=== PATIENT | male | born 1985 | race Caucasian/White ===

== ENCOUNTER 2023-08-14 18:02 | Observation (INO) | payer BC, SELFPAY ==
[2023-08-14 18:04] VITALS: BP 127/92; PULSE 109; RESP 22; TEMP 35.8; O2SAT 100; BMI 28.8
[2023-08-14 18:30] LABS: Absolute Neutrophil Count 13.4 X10^3/uL (2.0-7.7); Basophil# 0.06 X10^3/uL; Basophil% 0.3 % (0-1); Eosinophil# 0.12 X10^3/uL; Eosinophils% 0.7 % (0-5); Hematocrit 47.9 % (40-54); Hemoglobin 16.2 g/dL (13.0-16.5); Lymphocyte % 12.8 % (19-41); Mean Corp Hgb Conc 33.8 g/dL (32-36); Mean Corpuscular Hgb 29.2 pg (27.0-32.0); Mean Corpuscular Volume 86.3 fL (80-94); Mean Platelet Vol. 9.6 fl (6.2-12.0); Monocyte# 1.36 X10^3/uL; Monocyte% 7.9 % (0-10); NRBC Flagged by Analyzer 0 % (0-5); Neutrophil # 13.37 X10^3/uL (2.7-7.7); Neutrophil % 77.9 % (47-70); Platelet Count 341 K/mm3 (150-450); RBC Distribution Width CV 12.6 % (11.6-14.6); RBC Distribution Width SD 39.7 fl (35.1-43.9); Red Blood Count 5.55 M/mm3 (4.6-6.2); White Blood Count 17.2 K/mm3 (4.4-11.0)
--- NOTE | 2023-08-14 18:41 | ED.VIS.GI ---
HPI HPI - GI History of Present Illness Chief Complaint: Abd Pain Narrative Narrative: 1-year-old male presenting with abdominal pain. He states it started about 4 PM. He was in [place] today getting a tattoo a noticeably on the car his abdomen started to hurt. Patient has significant history of volvulus and 2019. This was initially repaired at [facility] although the patient cannot remember the surgeon's name. He had a small segment of bowel removed. Later he had obstruction and had a colectomy with a colostomy bag which is subsequently been reversed. Patient follows mostly with [facility]. He states he is feeling well today. He ate pizza for breakfast. He had not any vomiting. He states his pain was 10 of 10 by the time he arrived to the ER but now his pain is much more tolerable. No fevers. Patient states other than this problem in his abdomen he has only spinal problems. He is on any blood thinners. PFSH PFS Medical History Ileostomy present Home Medications NK 08/14/23 [History Last Taken Unknown] Allergy/AdvReac Type Severity Reaction Status Date / Time No Known Allergies Allergy Verified 08/14/23 18:03 Surgical History H/O colectomy H/O spinal fusion History of appendectomy History of reversal of ileostomy Social History Smoking Status: Never smoker ROS ROS ED Constitutional Constitutional ED: Denies chills, fever(s) or sweats Eyes Eyes: Denies blurry vision or change in vision ENT ENT ED: Denies ear pain or sore throat Cardiovascular Cardiovascular: Denies chest pain, palpitations or racing heartbeat Respiratory/Chest Respiratory/Chest: Denies cough, dyspnea or sputum Gastrointestinal Gastrointestinal: Reports abdominal pain and nausea; Denies constipation, diarrhea or vomiting Genitourinary Genitourinary ED: Denies dysuria, hematuria or urinary frequency Musculoskeletal Musculoskeletal: Denies arthralgias, myalgias or neck pain Integumentary Denies abscess, Abrasions or rash Neurologic Neurologic: Denies headache(s), paresthesias or weakness Psychiatric Psychiatric: Denies anxiety, depression, suicidal ideation or suicidal thoughts Endocrine Endocrinology: Denies polydipsia or polyuria EXAM Physical Exam Const Vital Signs: 08/14/23 18:04 08/14/23 19:32 Temperature 96.5 F L Temperature Source Temporal Pulse Rate 109 H 90 Respiratory Rate 22 H 20 H Blood Pressure 127/92 H 131/78 H Blood Pressure Mean 103 95 Pulse Ox 100 94 Oxygen Delivery Method Room Air Room Air Positive well nourished General Appearance ED: NAD; Negative for pallor HEENT Reports moist mucous membranes normocephalic and atraumatic Eyes PERRL and EOMs intact bilaterally Resp normal respiratory effort Effort and Inspection: Negative for respiratory distress Cardio regular rate and regular rhythm GI Palpation: soft; Negative for guarding, rigid, hepatomegaly or splenomegaly Neuro CN's II-XII intact bilaterally Sensorium / Orientation: alert Motor Exam: strength 5/5 throughout Psych mental status grossly normal Skin no wounds General Skin Exam: Negative for jaundice or pallor MDM MDM MDM Narrative Medical decision making narrative: 37-year-old male with acute onset abdominal pain. Differential includes gastritis, GERD, colitis, diverticulitis, malignancy, bowel obstruction, dehydration, anemia, electrolyte normalities. CBC was obtained to assess white blood cell count, hemoglobin, platelets. CMP to assess liver function, renal function, electrolytes. Lipase to assess for pancreatitis. Urinalysis to assess for UTI. To gases to assess ischemic bowel. Patient medicated with morphine, Zofran, 1 L of normal saline. The abdomen pelvis with IV contrast was obtained. Leukocytosis 17.2. Hemoglobin stable at 16.2. Platelets are normal at 341. Renal function and electrolytes within normal limits. LFTs are normal. Lactic acid came back at 3.7 however this was drawn off initial blood draw using a tourniquet. Possible this could be inaccurate as the patient is completely pain-free on reexamination resting comfortably. He did get some morphine but states after he CT he felt something move and feels like his bowels are now moving normally. Repeat examination is consistent with this. CT of the abdomen pelvis with IV contrast performed does show concern for bowel obstruction, internal hernia, volvulus is all possibilities however the patient still pain-free. Discussed with general surgery who came down and evaluated the patient and again the patient is pain-free. Through shared decision making they determined that the best course of action for them is to have the patient admitted for observation as the patient is very knowledgeable with his surgical history and does not want surgery unless he needs it. Patient was given a dose of Zosyn as well as second liter of IV fluids. He will be monitored in the hospital for any potential worsening. Impression: 1. Small bowel obstruction 2. Leukocytosis 3. Lactic acidosis Lab Data Attestation: I reviewed the patient's lab results. Labs: Laboratory Results - last 24 hr 08/14/23 08/14/23 18:18 19:29 WBC 17.2 H RBC 5.55 Hgb 16.2 Hct 47.9 MCV 86.3 MCH 29.2 MCHC 33.8 RDW Std Deviation 39.7 RDW Coeff of [place] 12.6 Plt Count 341 MPV 9.6 Immature Gran % (Auto) 0.400 Neut % (Auto) 77.9 H Lymph % (Auto) 12.8 L Rains % (Auto) 7.9 Eos % (Auto) 0.7 Baso % (Auto) 0.3 Absolute Neuts (auto) 13.4 H Absolute Lymphs (auto) 2.20 Nucleated RBC % 0 Sodium 138 Potassium 3.4 L Chloride 105 Carbon Dioxide 22.0 Anion Gap 11 BUN 13 Creatinine 1.12 Estim Creat Clear Calc 84.43 Est GFR (MDRD) Af Amer 95 Est GFR (MDRD) Non-Af 78 BUN/Creatinine Ratio 11.6 Glucose 131 H Lactic Acid 3.7 H* Calcium 9.3 Total Bilirubin 0.70 AST 25 ALT 35 Alkaline Phosphatase 73 Total Protein 7.9 Albumin 4.2 Globulin 3.7 Albumin/Globulin Ratio 1.1 Lipase 47 Urine Color Yellow Urine Clarity Clear Urine pH 6.0 Ur Specific [place] 1.020 Urine Protein Negative Urine Glucose (UA) Normal Urine Ketones 50 H Urine Occult Blood Negative Urine Nitrite Negative Urine Bilirubin Negative Urine Urobilinogen Normal Ur Leukocyte Esterase Negative Urine RBC 0 SEEN Urine WBC 0 SEEN Ur Squamous Epith Cells 0 SEEN Urine Bacteria 0 SEEN Urine Mucus 0 SEEN Radiography Diagnostic Testing: Clinical Impression(s) from Imaging Studies Abdomen/Pelvis CT 08/14/23 19:15 IMPRESSION: Small bowel dilatation predominantly in the right upper abdomen with question swirling pattern which may indicate closed lip obstruction versus internal hernia. Differential diagnosis includes localized ileus. Recommend follow-up to evaluate progression. Midline left-sided liver with remainder of the visceral outlines within normal anatomical location. Status post colonic resection with distal visualized sigmoid unremarkable. Electronically Signed: Shannan Connolly MD at 19:47 EST , Discharge Plan Triage Chief Complaint: Abd Pain ED Provider: Laci Darling Dx/Rx/DC Orders Primary Care Provider: Care Physician,No Primary
[2023-08-14 18:48] LABS: ALB/GLOB Ratio 1.1 RATIO (0.9-2.4); AST(SGOT) 25 U/L (15-37); Alanine Aminotransfer ALT/SGPT 35 U/L (16-61); Albumin, Serum 4.2 g/dL (3.2-5.0); Alkaline Phosphatase 73 U/L (45-117); Anion Gap 11 (5-15); BUN 13 mg/dL (7-18); BUN/Creat Ratio 11.6 RATIO (10-20); Calcium,Total 9.3 mg/dL (8.5-10.1); Chloride 105 mmol/L (98-107); Creatinine, Serum 1.12 mg/dL (0.70-1.30); EST Glomerular Filtration Rate 78 mL/min (>60); Est Glom Filt Rate - Afr Amer 95 mL/min (>60); Estimated Creatinine Clearance 84.43 ml/min; Globulin 3.7 g/dL (2.2-4.2); Glucose 131 mg/dL (74-106); Potassium 3.4 mmol/L (3.5-5.1); Protein, Total 7.9 g/dL (6.4-8.2); Sodium Level 138 mmol/L (136-145)
[2023-08-14] MEDS: Morphine 4 MG/ML Syringe IV (18:48)
[2023-08-14] MEDS: 0.9% Normal Saline (1000mL) 1,000 ML 999 ML IV ×2 (18:48→19:54)
[2023-08-14] MEDS: Ondansetron 4 MG/2 ML Vial IV (18:49)
[2023-08-14 19:11] LABS: Lipase 47 U/L (13-75)
--- NOTE | 2023-08-14 19:15 | CT_ITS ---
STUDY: CT ABDOMEN AND PELVIS WITH CONTRAST REASON FOR EXAM: Male, 37 years old. history of bowel obstruction RADIATION DOSAGE (If Supplied By Facility): CTDIvol = ( 11.88 ) mGy, DLP = ( 799.83 ) mGycm TECHNIQUE: Transaxial images were obtained from the dome of the diaphragm to the symphysis pubis without oral contrast. IV 100mL Isovue-370 was administered. Sagittal and coronal images were reconstructed. Individualized dose optimization techniques were used for this CT. COMPARISON: None. FINDINGS: The visualized lung bases are unremarkable. The visualized portions of the heart are within normal limits. The liver is located along the midline and towards the left, otherwise normal. Normal gallbladder and extrahepatic biliary system. Normal spleen. Normal pancreas. Normal bilateral adrenal glands. Normal right kidney. Normal left kidney. Normal visualized stomach. Multiple loops of small bowel distended along the right side of the abdomen which may indicate ileus versus small bowel obstruction with suboptimally seen in the zone of transition. There is swirling pattern in the right upper quadrant and therefore, internal hernia or closed loop obstruction cannot be excluded. Postoperative changes along the sigmoid with sutures suggestive of previous colonic surgery/resection. Nonvisualized appendix consistent with known history of previous appendectomy. Normal abdominal aorta. Normal inferior vena cava. Normal retroperitoneum. Normal urinary bladder. Normal abdominal wall. Status post posterior fusion at L4-L5. CT/Abdomen/Pelvis W IV Cont ONLY IMPRESSION: Small bowel dilatation predominantly in the right upper abdomen with question swirling pattern which may indicate closed lip obstruction versus internal hernia. Differential diagnosis includes localized ileus. Recommend follow-up to evaluate progression. Midline left-sided liver with remainder of the visceral outlines within normal anatomical location. Status post colonic resection with distal visualized sigmoid unremarkable. Electronically Signed: Shannan Connolly MD at 19:47 EST ,
[2023-08-14 19:22] LABS: Lactic Acid 3.7 mmol/L (0.4-1.9)
[2023-08-14 19:32] VITALS: BP 131/78; PULSE 90; RESP 20; O2SAT 94
[2023-08-14 19:33] LABS: Bacteria 0 SEEN /hpf (None Seen); Mucous, Urine 0 SEEN /hpf (<or=2+); Red Blood Cells-Urine 0 SEEN /hpf (0-5); Squamous Epithelial Cells - UA 0 SEEN /hpf (0-5); White Blood Cells 0 SEEN /hpf (0-5)
[2023-08-14 19:37] LABS: Color, Urine Yellow (Yellow); Glucose, Dipstick Normal (Normal); Ketone-Dipstick 50 mg/dl (Negative); Leukocyte Esterase-Dipstick Negative /ul (Negative); Nitrite-Dipstick Negative (Negative); Occult Blood-Urine Negative /ul (Negative); Protein-Dipstick Negative (Negative); Urine Bilirubin Dipstick Negative (Negative); Urine Clarity Clear (Clear); Urine Urobilinogen Normal (Normal)
[2023-08-14] MEDS: Piperacil/Tazobactam 3.375 GM in 0.9% Normal Saline (50mL MB+) 50 ML IV (19:54)
--- NOTE | 2023-08-14 20:24 | HP.PCM.SX_ITS ---
HPI - General HPI Narrative EUNICE GIRON, is a 37 M who presents with abdominal pain. The patient reports that he was having a tattoo earlier today and was feeling like some gurgling in his abdomen. He says after he was done with his tattoo he felt a lot of pain and came straight to the emergency room as he has had this before. Patient has a history of cecal distention requiring right hemicolectomy and then he had a repeat subtotal colectomy for a motility and then subsequent ileorectal anastomosis and reversal of ileostomy. The patient's last surgery was November of this year and he has not had any problems since that surgery. [facility] Medical History Ileostomy present Home Medications NK 08/14/23 [History Last Taken Unknown] Allergy/AdvReac Type Severity Reaction Status Date / Time No Known Allergies Allergy Verified 08/14/23 18:03 Surgical History H/O colectomy H/O spinal fusion History of appendectomy History of reversal of ileostomy Social History Smoking Status: Never smoker ROS Constitutional Constitutional: Denies anorexia, chills or fatigue Eyes Eyes: Denies blurry vision ENT HEENT: Denies abnormal hearing Cardiovascular Cardiovascular: Denies chest pain Respiratory/Chest Respiratory/Chest: Denies cough or dyspnea Gastrointestinal Gastrointestinal: Reports abdominal pain; Denies nausea or vomiting Genitourinary Genitourinary: Denies change in urinary stream Musculoskeletal Musculoskeletal: Denies abnormal gait Integumentary Integumentary: Denies jaundice Neurologic Neurologic: Denies abnormal gait Vital Signs Vital Signs Vital Signs: 08/14/23 18:04 08/14/23 19:32 Temperature 96.5 F L Temperature Source Temporal Pulse Rate 109 H 90 Respiratory Rate 22 H 20 H Blood Pressure 127/92 H 131/78 H Blood Pressure Mean 103 95 Pulse Ox 100 94 Oxygen Delivery Method Room Air Room Air Weight Weight: 183 lb 12.8 oz Body Mass Index (BMI) 28.8 Physical Exam Const oriented x3 and no apparent distress Resp normal respiratory effort Cardio regular rate and regular rhythm GI soft to palpation and non-tender Inspection: Negative for abdominal distention Extremity normal to inspection Results Lab / Micro Data 08/14/23 18:18 08/14/23 18:18 Labs: Laboratory Results - last 24 hr 08/14/23 18:18: WBC 17.2 H, RBC 5.55, Hgb 16.2, Hct 47.9, MCV 86.3, MCH 29.2, MCHC 33.8, RDW Std Deviation 39.7, RDW Coeff of [place] 12.6, Plt Count 341, MPV 9.6, Immature Gran % (Auto) 0.400, Neut % (Auto) 77.9 H, Lymph % (Auto) 12.8 L, [place] % (Auto) 7.9, Eos % (Auto) 0.7, Baso % (Auto) 0.3, Absolute Neuts (auto) 13.4 H, Absolute Lymphs (auto) 2.20, Nucleated RBC % 0, Sodium 138, Potassium 3.4 L, Chloride 105, Carbon Dioxide 22.0, Anion Gap 11, BUN 13, Creatinine 1.12, Estim Creat Clear Calc 84.43, Est GFR (MDRD) Af Amer 95, Est GFR (MDRD) Non-Af 78, BUN/Creatinine Ratio 11.6, Glucose 131 H, Lactic Acid 3.7 H*, Calcium 9.3, Total Bilirubin 0.70, AST 25, ALT 35, Alkaline Phosphatase 73, Total Protein 7.9, Albumin 4.2, Globulin 3.7, Albumin/Globulin Ratio 1.1, Lipase 47 08/14/23 19:29: Urine Color Yellow, Urine Clarity Clear, Urine pH 6.0, Ur Spec ific [place] 1.020, Urine Protein Negative, Urine Glucose (UA) Normal, Urine Ketones 50 H, Urine Occult Blood Negative, Urine Nitrite Negative, Urine Bilirubin Negative, Urine Urobilinogen Normal, Ur Leukocyte Esterase Negative, Urine RBC 0 SEEN, Urine WBC 0 SEEN, Ur Squamous Epith Cells 0 SEEN, Urine Bacteria 0 SEEN, Urine Mucus 0 SEEN Imagaing Radiology Impression Abdomen/Pelvis CT 08/14/23 19:15 IMPRESSION: Small bowel dilatation predominantly in the right upper abdomen with question swirling pattern which may indicate closed lip obstruction versus internal hernia. Differential diagnosis includes localized ileus. Recommend follow-up to evaluate progression. Midline left-sided liver with remainder of the visceral outlines within normal anatomical location. Status post colonic resection with distal visualized sigmoid unremarkable. Electronically Signed: Shannan Connolly MD at 19:47 EST , Assessment & Plan Assessment/Plan (1) SBO (small bowel obstruction): PLAN: The patient has extensive surgical history as well as a left-sided liver. His CT scan showed small bowel obstruction with possible swirling and may be closed-loop obstruction. When I went in to discuss his case with him and did my primary exam the patient is completely pain-free. The patient reports that he felt something shift and feels like things are moving. He says he feels like he is about to have a bowel movement. He does not complain of any abdominal pain. He is denying any nausea or vomiting at this time. I discussed his options with him. I did offer him exploratory laparoscopy to evaluate the small bowel. I also did offer him observation as the patient seems to have felt something shift and feels like all of the pain has resolved and things are moving along. Patient also feels less distended than he did earlier when he came in. The patient opted for observation. I did discuss the possibility of ischemic bowel if there was a closed-loop obstruction or ischemia. I will repeat a lactate and CBC now. I will admit him and keep him on antibiotics and IV fluids for the night. If his physical exam or vitals worsen at all overnight I will immediately take him to surgery. If he does well throughout the night I will order CT with oral contrast tomorrow morning. Bunny Pack MD Pager: [facility] [address] [place] [address], [address] [place] [address] Office:
[2023-08-14 20:32] VITALS: BP 124/90; PULSE 92; RESP 18; O2SAT 96
[2023-08-14 20:33] VITALS: BP 124/90; PULSE 92; RESP 18; O2SAT 96
--- OUTSIDE RECORDS SUMMARY | 2023-08-14 20:36 | XMS RPT_ITS | CCD ---
Author Name Unknown Address [address] [place] [address] Organization [facility] Care Team Providers Care [facility] Hand Name Role Phone Unavailable Primary Care Provider Unavailfelton Richardson MD, Cassie Valladares Primary Care Provider [phone] Rey DALEY, Collin Unavailable Rey DALEY, Collin Unavailable Shady GARCIA, Maile Unavailable [phone] Cassie Richardson MD Primary Care Provider Rey DALEY, Collin Unavailable Rye DALEY, Collin Unavailable Shady GARCIA, Maile Unavailable Cassie Richardson MD Primary Care Provider Rey DALEY, Collin Unavailable Rey DALEY, Collin Unavailable Shady GARCIA, Maile Unavailable [phone] LINETTE LAMB DO Attending Unavailable ROGERIO WILKINSON DO Admitting Unavailabl e AA NO PCP, NO PCP Primary Care Unavailable STEVEN DALEY, BRENDA Consulting Unavailable Judie DALEY, Daren Unavailable Carlyle BEE.Jesus MORALES Primary Care Provider Shady GARCIA, Maile Unavailable CASSIE RICHARDSON Primary Care Unavailable JUDIE, AIJAZ Attending Unavailable JUDIE, AIJAZ Referring Unavailable CASSIE RICHARDSON Primary Care Unavailable JUDIE AIJAZ Attending Unavailable JUDIE, AIJAZ Referring Unavailable COLLIN LE Attending Unavailabl e CLOLIN LE Referring Unavailabl e NANCIE, [facility] Primary Care Unavailable BRANDSTETTER, COLLIN Referring Unavailabl e NANCIE, [facility] Primary Care Unavailable BRANDSTETTER, COLLIN Attending Unavailabl e NANCIE, [facility] Primary Care Unavailable JABIERROLANDO BARTON Attending Unavailable KNOBLE, [facility] Primary Care Unavailable JABIERROLANDO BARTON Attending Unavailable JABIER, ROLANDO Delacruz Referring Unavailable KNOBLE, [facility] Primary Care Unavailable KNOBLE, [facility] Primary Care Unavailable JABIERROLANDO BARTON Referring Unavailable JUDIEDAREN Attending Unavailable DAREN DIMAS Referring Unavailable BRANDSTETTER, COLLIN Attending Unavailabl e SUTTONKINZA Referring Unavailable NANCIE, [facility] Primary Care Unavailable BRANDSTETTER, COLLIN Referring Unavailabl e NANCIE, [facility] Primary Care Unavailable SANTA MARCIAL Referring Unavailable KNOBLE, [facility] Primary Care Unavailable JABIERROLANDO Referring Unavailable KNOBLE, [facility] Primary Care Unavailable ATHY, IGNACIO R Referring Unavailable BRANDSTETTER, COLLIN Referring Unavailabl e NANCIE, [facility] Primary Care Unavailable BRANDSTETTER, COLLIN Referring Unavailabl e NANCIE, [facility] Primary Care Unavailable NANCIE, CASSIE JED Referring Unavailable NANCIE, CASSIE JED Attending Unavailable KNOBLE, [facility] Primary Care Unavailable Allergies Allergy Classification Reported Allergen(s) Allergy Type Date of Onset Reaction(s) Facility (20 sources) Adhesive Tape-Silicones; Translations: [ADHESIVE TAPE-SILICONES] Drug Allergy 09-10-2019 Other: See Comments [facility] (18 sources) Adhesive agent; Translations: [ADHESIVE] Drug Allergy 09-26-2022 Other: See Comments [facility] Medications Current Medications Medication Drug Class(es) Dates Sig (Normalized) Sig (Original) doxycycline hyclate 100 mg oral tablet (1 source) Tetracycline-clas s Drug Start: 07-17-2023 End: 07-27-2023 take 1 tablet by mouth twice daily doxycycline (VIBRA-TABS) 100 mg tablet Indications: Acute cough Take 1 tablet by mouth two times a day for 10 days. 20 tablet 0 07/17/2023 07/27/2023 Active Completed/Discontinued Medications Medication Drug Class(es) Dates Sig (Normalized) Sig (Original) acetaminophen 325 mg oral tablet (13 sources) take 2 tablets by mouth every six hours as needed acetaminophen (TYLENOL) 325 mg tablet Take 650 mg by mouth every 6 hours as needed for Pain. 0 Active Problems Active Problems Problem Classification Problem Date Documented Da te Episodic/Chronic Abdominal hernia (2 sources) Hernia of anterior abdominal wall; Translations: [Ventral hernia without obstruction or gangrene] Episodic Administrative/social admission (3 sources) Patient encounter status; Translations: [Other specified counseling] Episodic Disorders usually diagnosed in infancy, childhood, or adolescence (20 sources) Attention deficit hyperactivity disorder, predominantly inattentive type; Translations: [Other specified behavioral and emotional disorders with onset usually occurring in childhood and adolescence] Onset: 7 08-05-2007 Chronic Intestinal infection (1 source) Acute gastroenteropathy due to Sarita agent; Translations: [ACUTE GASTROENTROPATHY NORWALK AGNT] Onset: 3 Episodic Nutritional deficiencies (20 sources) Malnutrition (calorie); Translations: [Moderate protein-calorie malnutrition] Onset: 2 09-23-2021 Chronic Other connective tissue disease (1 source) Arthrodesis status; Translations: [ARTHRODESIS STATUS] Onset: 3 Episodic Other gastrointestinal disorders (1 source) Ileostomy status; Translations: [ILEOSTOMY STATUS] Onset: 3 Chronic Other gastrointestinal disorders (8 sources) Ileostomy present; Translations: [Ileostomy status] Onset: 3 11-26-2022 Chronic Other lower respiratory disease (1 source) Cough; Translations: [Acute cough] 07-17-2023 Episodic Other nutritional; endocrine; and metabolic disorders (20 sources) Obese class I; Translations: [Obesity, unspecified] Onset: 9 07-19-2019 Chronic Spondylosis; intervertebral disc disorders; other back problems (20 sources) Acute back pain with sciatica; Translations: [Lumbago with sciatica, left side] Onset: 0 08-27-2019 Episodic Unclassified (1 source) ACIDOSIS UNSPECIFIED; Translations: [ACIDOSIS UNSPECIFIED] Onset: 3 Unclassified (1 source) Established Patient Onset: 3 Unclassified (1 source) Acute cough; Translations: [Acute cough] Onset: 3 Past or Other Problems Problem Classification Problem Date Documented Da te Episodic/Chronic Abdominal pain (20 sources) Generalized abdominal pain; Translations: [Generalized abdominal pain] Onset: 05-29-2021 05-29-2021 Episodic Anal and rectal conditions (6 sources) Stricture of rectum; Translations: [Stenosis of anus and rectum] Onset: 10-22-2022 Episodic Complications of surgical procedures or medical care (20 sources) Postoperative ileus; Translations: [Other postprocedural complications and disorders of digestive system] Onset: 05-29-2021 05-29-2021 Episodic Fluid and electrolyte disorders (20 sources) Lactic acidosis; Translations: [Acidosis] Onset: 04-02-2022 04-02-2022 Episodic Intestinal obstruction without hernia (8 sources) Stricture of colon; Translations: [Other intestinal obstruction unspecified as to partial versus complete obstruction] Onset: 01-21-2023 01-21-2023 Episodic Noninfectious gastroenteritis (20 sources) Enteritis of small intestine; Translations: [Noninfective gastroenteritis and colitis, unspecified] Onset: 04-02-2022 04-02-2022 Episodic Other acquired deformities (20 sources) Lumbar spondylolisthesis; Translations: [Spondylolisthesis, lumbar region] Onset: 07-19-2019 08-27-2019 Episodic Other connective tissue disease (20 sources) Plantar fascial fibromatosis; Translations: [Plantar fascial fibromatosis] Onset: 07-09-2010 07-09-2010 Episodic Other gastrointestinal disorders (20 sources) Motility disorder of large intestine; Translations: [Functional intestinal disorder, unspecified] Onset: 12-05-2021 Episodic Other gastrointestinal disorders (2 sources) Functional intestinal disorder, unspecified; Translations: [Colonic inertia] Onset: 12-05-2021 Episodic Other screening for suspected conditions (not mental disorders or infectious disease) (1 source) Encounter for screening for lipoid disorders; Translations: [Screening for lipid disorders] Onset: 08-22-2022 Episodic Other upper respiratory infections (1 source) Acute upper respiratory infection, unspecified; Translations: [URI, acute] Onset: 01-29-2023 Episodic Residual codes; unclassified (1 source) Other specified postprocedural states; Translations: [Status post reversal of ileostomy] Onset: 12-06-2022 Episodic Septicemia (except in labor) (15 sources) Sepsis; Translations: [Sepsis, unspecified organism] Onset: 04-02-2022 04-02-2022 Episodic Results Test Name Value Interpretation Reference Range Facil ity Vital Signs Date Time Vital Sign Value Performing Clinician Marc busby 07-17-2023 16:49-0500 Body temperature 98.01 [degF] Santa Marcial IN ROOM DINING SERVER.STAPLE FIBER WASHER Work Phone: [facility] 07-17-2023 16:49-0500 Body weight 81.01 kg Santa Marcial IN ROOM DINING SERVER.STAPLE FIBER WASHER Work Phone: [facility] 07-17-2023 16:49-0500 Diastolic blood pressure 80 mm[Hg] Santa Marcial IN ROOM DINING SERVER.STAPLE FIBER WASHER Work Phone: [facility] 07-17-2023 16:49-0500 Heart rate 85 /min Santa Marcial IN ROOM DINING SERVER.STAPLE FIBER WASHER Work Phone: [facility] 07-17-2023 16:49-0500 Respiratory rate 1 /min Santa Marcial IN ROOM DINING SERVER.STAPLE FIBER WASHER Work Phone: [facility] 07-17-2023 16:49-0500 SaO2% (BldA) [Mass fraction] 97 % Santa Marcial IN ROOM DINING SERVER.STAPLE FIBER WASHER Work Phone: [facility] 07-17-2023 16:49-0500 Systolic blood pressure 118 mm[Hg] Santa Marcial IN ROOM DINING SERVER.STAPLE FIBER WASHER Work Phone: [facility] 04-22-2023 10:41-0400 Body height 167.6 cm Rolando Jabier DO Work Phone: [facility] 04-22-2023 10:41-0400 Body weight 77.56 kg Rolando Jabier DO Work Phone: [facility] 04-22-2023 10:41-0400 Diastolic blood pressure 92 mm[Hg] Rolando Jabier DO Work Phone: [facility] 04-22-2023 10:41-0400 Heart rate 66 /min Rolando Jabier DO Work Phone: [facility] 04-22-2023 10:41-0400 SaO2% (BldA) [Mass fraction] 99 % Rolando Jabier DO Work Phone: [facility] 04-22-2023 10:41-0400 Systolic blood pressure 135 mm[Hg] Rolando Jabier DO Work Phone: [facility] 03-18-2023 13:09-0400 Body height 167.6 cm Rolando Jabier DO Work Phone: [facility] 03-18-2023 13:09-0400 Body weight 77.56 kg Rolando Jabier DO Work Phone: [facility] 03-18-2023 13:09-0400 Diastolic blood pressure 70 mm[Hg] Rolando Jabier DO Work Phone: [facility] 03-18-2023 13:09-0400 Heart rate 77 /min Rolando Jabier DO Work Phone: [facility] 03-18-2023 13:09-0400 Respiratory rate 16 /min Rolando Jabier DO Work Phone: [facility] 03-18-2023 13:09-0400 SaO2% (BldA) [Mass fraction] 99 % Rolando Jabier DO Work Phone: [facility] 03-18-2023 13:09-0400 Systolic blood pressure 123 mm[Hg] Rolando Jabier DO Work Phone: [facility] 03-13-2023 12:05-0400 Body temperature 98.49 [degF] Krislyn Aberegg PA Work Phone: [facility] 03-13-2023 12:05-0400 Body weight 77.75 kg Krislyn Aberegg PA Work Phone: [facility] 03-13-2023 12:05-0400 Diastolic blood pressure 84 mm[Hg] Krislyn Aberegg PA Work Phone: [facility] 03-13-2023 12:05-0400 Heart rate 88 /min Krislyn Aberegg PA Work Phone: [facility] 03-13-2023 12:05-0400 Respiratory rate 18 /min Krislyn Aberegg PA Work Phone: [facility] 03-13-2023 12:05-0400 SaO2% (BldA) [Mass fraction] 98 % Krislyn Aberegg PA Work Phone: [facility] 03-13-2023 12:05-0400 Systolic blood pressure 130 mm[Hg] Krislyn Aberegg PA Work Phone: [facility] 12-11-2022 09:20-0400 Body height 167.6 cm Collin Le MD Work Phone: [facility] 12-11-2022 09:20-0400 Body weight 71.67 kg Collin Le MD Work Phone: [facility] 12-11-2022 09:20-0400 Diastolic blood pressure 81 mm[Hg] Collin Le MD Work Phone: [facility] 12-11-2022 09:20-0400 Heart rate 69 /min Collin Le MD Work Phone: [facility] 12-11-2022 09:20-0400 Systolic blood pressure 123 mm[Hg] Collin Le MD Work Phone: [facility] 11-21-2022 10:02-0400 Body height 167.6 cm Pst 1 [facility] 11-21-2022 10:02-0400 Body temperature 97.9 [degF] Pst 1 [facility] 11-21-2022 10:02-0400 Body weight 74.84 kg Pst 1 [facility] 11-21-2022 10:02-0400 Diastolic blood pressure 73 mm[Hg] Pst 1 [facility] 11-21-2022 10:02-0400 Heart rate 70 /min Pst 1 [facility] 11-21-2022 10:02-0400 Respiratory rate 16 /min Pst 1 [facility] 11-21-2022 10:02-0400 SaO2% (BldA) [Mass fraction] 99 % Pst 1 [facility] 11-21-2022 10:02-0400 Systolic blood pressure 110 mm[Hg] Pst 1 [facility] 10-29-2022 10:30-0400 Diastolic blood pressure 87 mm[Hg] Daren Dimas MD Work Phone: [facility] 10-29-2022 10:30-0400 Heart rate 85 /min Daren Dimas MD Work Phone: [facility] 10-29-2022 10:30-0400 Respiratory rate 16 /min Daren Dimas MD Work Phone: [facility] 10-29-2022 10:30-0400 SaO2% (BldA) [Mass fraction] 98 % Daren Dimas MD Work Phone: [facility] 10-29-2022 10:30-0400 Systolic blood pressure 120 mm[Hg] Daren Dimas MD Work Phone: [facility] 10-29-2022 10:19-0400 Body temperature 98.1 [degF] Daren Dimas MD Work Phone: [facility] 10-29-2022 07:30-0400 Body height 167.6 cm Daren Dimas MD Work Phone: [facility] 10-29-2022 07:30-0400 Body weight 72.58 kg Daren Dimas MD Work Phone: [facility] 10-22-2022 10:43-0400 Diastolic blood pressure 86 mm[Hg] Daren Dimas MD Work Phone: [facility] 10-22-2022 10:43-0400 Heart rate 71 /min Daren Dimas MD Work Phone: [facility] 10-22-2022 10:43-0400 Respiratory rate 14 /min Daren Dimas MD Work Phone: [facility] 10-22-2022 10:43-0400 SaO2% (BldA) [Mass fraction] 100 % Daren Dimas MD Work Phone: [facility] 10-22-2022 10:43-0400 Systolic blood pressure 115 mm[Hg] Daren Dimas MD Work Phone: [facility] 10-22-2022 10:31-0400 Body temperature 96.8 [degF] Daren Dimas MD Work Phone: [facility] 09-26-2022 09:53-0500 Diastolic blood pressure 89 mm[Hg] Collin Le MD Work Phone: [facility] 09-26-2022 09:53-0500 Heart rate 74 /min Collin Le MD Work Phone: [facility] 09-26-2022 09:53-0500 Respiratory rate 16 /min Collin Le MD Work Phone: [facility] 09-26-2022 09:53-0500 SaO2% (BldA) [Mass fraction] 100 % Collin Le MD Work Phone: [facility] 09-26-2022 09:53-0500 Systolic blood pressure 122 mm[Hg] Collin Le MD Work Phone: [facility] 09-26-2022 09:33-0500 Body temperature 97.7 [degF] Collin Le MD Work Phone: [facility] 09-26-2022 08:35-0500 Body height 170.2 cm Collin Le MD Work Phone: [facility] 09-26-2022 08:35-0500 Body weight 74.39 kg Collin Le MD Work Phone: [facility] 08-22-2022 08:53-0500 Body height 170.2 cm Cassie Richardson MD Work Phone: [facility] 08-22-2022 08:53-0500 Body temperature 97.11 [degF] Cassie Richardson MD Work Phone: [facility] 08-22-2022 08:53-0500 Body weight 76.2 kg Cassie Richardson MD Work Phone: [facility] 08-22-2022 08:53-0500 Diastolic blood pressure 68 mm[Hg] Cassie Richardson MD Work Phone: [facility] 08-22-2022 08:53-0500 Heart rate 65 /min Cassie Richardson MD Work Phone: [facility] 08-22-2022 08:53-0500 SaO2% (BldA) [Mass fraction] 94 % Cassie Richardson MD Work Phone: [facility] 08-22-2022 08:53-0500 Systolic blood pressure 106 mm[Hg] Cassie Richardson MD Work Phone: [facility] 08-19-2022 10:54-0500 Body height 167.6 cm Collin Le MD Work Phone: [facility] 08-19-2022 10:54-0500 Body weight 74.84 kg Collin Le MD Work Phone: [facility] 08-19-2022 10:54-0500 Diastolic blood pressure 80 mm[Hg] Collin Le MD Work Phone: [facility] 08-19-2022 10:54-0500 Heart rate 68 /min Collin Le MD Work Phone: [facility] 08-19-2022 10:54-0500 Systolic blood pressure 134 mm[Hg] Collin Le MD Work Phone: [facility] 03-07-2022 07:50-0400 Body height 170.2 cm Simone Becerra MD Work Phone: [facility] 03-07-2022 07:50-0400 Body weight 71.71 kg Simone Becerra MD Work Phone: [facility] 03-07-2022 07:50-0400 Diastolic blood pressure 75 mm[Hg] Simone Becerra MD Work Phone: [facility] 03-07-2022 07:50-0400 Heart rate 59 /min Simone Becerra MD Work Phone: [facility] 03-07-2022 07:50-0400 Systolic blood pressure 120 mm[Hg] Simone Becerra MD Work Phone: [facility] 01-08-2022 10:24-0400 Body temperature 99.39 [degF] Lacey Fortune MARBLEIZING MACHINE TENDER Work Phone: [facility] 01-08-2022 10:24-0400 Diastolic blood pressure 60 mm[Hg] Lacey Fortune MARBLEIZING MACHINE TENDER Work Phone: [facility] 01-08-2022 10:24-0400 Heart rate 67 /min Lacey Fortune MARBLEIZING MACHINE TENDER Work Phone: [facility] 01-08-2022 10:24-0400 Respiratory rate 18 /min Lacey Fortune MARBLEIZING MACHINE TENDER Work Phone: [facility] 01-08-2022 10:24-0400 SaO2% (BldA) [Mass fraction] 98 % Lacey Fortune MARBLEIZING MACHINE TENDER Work Phone: [facility] 01-08-2022 10:24-0400 Systolic blood pressure 102 mm[Hg] Lacey Fortune MARBLEIZING MACHINE TENDER Work Phone: [facility] 01-01-2022 12:04-0400 Body temperature 99 [degF] Maile Caruso RN Work Phone: [facility] 01-01-2022 12:04-0400 Diastolic blood pressure 74 mm[Hg] Maile Caruso RN Work Phone: [facility] 01-01-2022 12:04-0400 Heart rate 86 /min Maile Caruso RN Work Phone: [facility] 01-01-2022 12:04-0400 Respiratory rate 16 /min Maile Caruso RN Work Phone: [facility] 01-01-2022 12:04-0400 SaO2% (BldA) [Mass fraction] 97 % Maile Caruso RN Work Phone: [facility] 01-01-2022 12:04-0400 Systolic blood pressure 118 mm[Hg] Maile Caruso RN Work Phone: [facility] 12-31-2021 09:16-0400 Body height 170.2 cm Collin Le MD Work Phone: [facility] 12-31-2021 09:16-0400 Body weight 63.96 kg Collin Le MD Work Phone: [facility] 12-31-2021 09:16-0400 Diastolic blood pressure 74 mm[Hg] Collin Le MD Work Phone: [facility] 12-31-2021 09:16-0400 Heart rate 98 /min Collin Le MD Work Phone: [facility] 12-31-2021 09:16-0400 Systolic blood pressure 111 mm[Hg] Collin Le MD Work Phone: [facility] 12-28-2021 09:08-0400 Body temperature 98.6 [degF] Maile Caruso RN Work Phone: [facility] 12-28-2021 09:08-0400 Diastolic blood pressure 78 mm[Hg] Maile Caruso RN Work Phone: [facility] 12-28-2021 09:08-0400 Heart rate 80 /min Maile Caruso RN Work Phone: [facility] 12-28-2021 09:08-0400 Respiratory rate 16 /min Maile Caruso RN Work Phone: [facility] 12-28-2021 09:08-0400 SaO2% (BldA) [Mass fraction] 98 % Maile Caruso RN Work Phone: [facility] 12-28-2021 09:08-0400 Systolic blood pressure 114 mm[Hg] Maile Caruso RN Work Phone: [facility] 12-24-2021 11:15-0400 Body temperature 98.4 [degF] Maile Caruso RN Work Phone: [facility] 12-24-2021 11:15-0400 Body weight 65.32 kg Maile Caruso RN Work Phone: [facility] 12-24-2021 11:15-0400 Diastolic blood pressure 68 mm[Hg] Maile Caruso RN Work Phone: [facility] 12-24-2021 11:15-0400 Heart rate 74 /min Maile Caruso RN Work Phone: [facility] 12-24-2021 11:15-0400 Respiratory rate 16 /min Maile Caruso RN Work Phone: [facility] 12-24-2021 11:15-0400 SaO2% (BldA) [Mass fraction] 98 % Maile Caruso RN Work Phone: [facility] 12-24-2021 11:15-0400 Systolic blood pressure 122 mm[Hg] Maile Caruso RN Work Phone: [facility] 12-21-2021 08:50-0400 Body height 170.2 cm Anna Garber RN Work Phone: [facility] 12-21-2021 08:50-0400 Body temperature 96.01 [degF] Anna Garber RN Work Phone: [facility] 12-21-2021 08:50-0400 Body weight 65.32 kg Anna Garber RN Work Phone: [facility] 12-21-2021 08:50-0400 Diastolic blood pressure 70 mm[Hg] Anna Garber RN Work Phone: [facility] 12-21-2021 08:50-0400 Heart rate 76 /min Anna Garber RN Work Phone: [facility] 12-21-2021 08:50-0400 Respiratory rate 16 /min nAna Garber RN Work Phone: [facility] 12-21-2021 08:50-0400 SaO2% (BldA) [Mass fraction] 97 % Anna Garber RN Work Phone: [facility] 12-21-2021 08:50-0400 Systolic blood pressure 114 mm[Hg] Anna Garber RN Work Phone: [facility] 11-28-2021 13:55-0400 Body height 170.2 cm Pst 1 [facility] 11-28-2021 13:55-0400 Body temperature 98.1 [degF] Pst 1 [facility] 11-28-2021 13:55-0400 Body weight 67.13 kg Pst 1 [facility] 11-28-2021 13:55-0400 Diastolic blood pressure 70 mm[Hg] Pst 1 [facility] 11-28-2021 13:55-0400 Heart rate 95 /min Pst 1 [facility] 11-28-2021 13:55-0400 Respiratory rate 16 /min Pst 1 [facility] 11-28-2021 13:55-0400 SaO2% (BldA) [Mass fraction] 96 % Pst 1 [facility] 11-28-2021 13:55-0400 Systolic blood pressure 103 mm[Hg] Pst 1 [facility] 11-14-2021 10:55-0400 Body height 170.2 cm Collin Le MD Work Phone: [facility] 11-14-2021 10:55-0400 Body temperature 97.9 [degF] Collin Le MD Work Phone: [facility] 11-14-2021 10:55-0400 Body weight 69.4 kg Collin Le MD Work Phone: [facility] 11-14-2021 10:55-0400 Diastolic blood pressure 76 mm[Hg] Collin Le MD Work Phone: [facility] 11-14-2021 10:55-0400 Heart rate 95 /min Collin Le MD Work Phone: [facility] 11-14-2021 10:55-0400 Systolic blood pressure 124 mm[Hg] Collin Le MD Work Phone: [facility] Encounters Encounter Date Encounter Type Care Provider Facility Start: 07-17-2023 End: 07-17-2023 ambulatory JESUS RAZA Facility:[facility] Start: 07-17-2023 End: 07-17-2023 Patient encounter procedure Santa Marcial IN ROOM DINING SERVER.STAPLE FIBER WASHER Work Phone: [facility] Procedures Date Procedure Procedure Detail Performing Clinician Start: 04-21-2023 Mri spinal canal lum bar w/o contrast material Rolando Eugene DO Work Phone: Start: 09-16-2022 Radiologic exam colo n single contrast study Collin Le MD Work Phone: Start: 08-22-2022 PFIZER-[employer] COVI D-19 BIVALENT BOOSTER VACCINE, AGE 12+ YR Cassie Richardson MD Work Phone: Start: 08-22-2022 Lipid 1996 panel - S amy or Plasma Rolando Eugene DO Work Phone: Start: 11-28-2021 Antibody screen Pst 1 Start: 06-06-2021 Comprehensive metabo lic panel Derek Juarez MD Work Phone: Start: 07-19-2019 Adult depression scr eening assessment Collin Le MD Work Phone: Start: 07-06-2019 Antibody screen Plan of Treatment Date Care Activity Detail Author Start: 03-03-2028 Urine microalbumin profile [facility] Start: 08-22-2027 Lipid 1996 panel - S amy or Plasma Lipid Screening [facility] Start: 08-22-2027 LIPID SCREEN LIPID SCREEN [facility] Start: 04-11-2023 Covid-19 Vaccine ( season) Covid-19 Vaccine ( season) [facility] Start: 04-11-2023 Influenza vaccination [facility] Start: 02-07-2023 Influenza vaccination INFLUENZA (#1) [facility] Immunizations Immunization Date Immunization Notes Care Provider Fa ashanti 08-22-2022 COVID-19 booster vaccine, age 12+ yr, bivalent (PFIZER-[employer]TECH) Cassie Richardson MD Work Phone: [facility] 07-31-2021 influenza, injectabl e, quadrivalent, contains preservative Collin Le MD Work Phone: [facility] 07-31-2021 influenza virus vaccine, unspecified formulation Rolando Eugene DO Work Phone: [facility] 05-20-2020 influenza, injectabl e, quadrivalent, contains preservative Collin Le MD Work Phone: [facility] 05-12-2019 influenza, injectabl e, quadrivalent, contains preservative Collin Le MD Work Phone: [facility] 05-20-2018 influenza, seasonal, injectable Collin Le MD Work Phone: [facility] 03-03-2018 tetanus toxoid, reduced diphtheria toxoid, and acellular pertussis vaccine, adsorbed Collin Le MD Work Phone: [facility] 05-22-2017 tetanus toxoid, reduced diphtheria toxoid, and acellular pertussis vaccine, adsorbed Collin Le MD Work Phone: [facility] 04-22-2005 Meningococcal, MCV4, unspecified conjugate formulation(groups A, C, Y and W-135) Collin Le MD Work Phone: [facility] Work Phone: 04-22-2005 tetanus toxoid, reduced diphtheria toxoid, and acellular pertussis vaccine, adsorbed Collin Le MD Work Phone: [facility] Work Phone: 06-24-2002 hepatitis B vaccine, pediatric or pediatric/adolescent dosage Collin Le MD Work Phone: [facility] Work Phone: 11-26-2001 hepatitis B vaccine, pediatric or pediatric/adolescent dosage Collin Le MD Work Phone: [facility] Work Phone: 10-14-2001 hepatitis B vaccine, pediatric or pediatric/adolescent dosage Collin Le MD Work Phone: [facility] Work Phone: Payers Date Payer Category Payer Unknown [id number] 2022 Unknown [id number] 2017 Private Health Insurance [employer] A ETNA CHOICE POS II [id number] 2017-Present [phone] [address] [place] [address] POS [id number] 2017 Private Health Insurance [employer] A ETNA CHOICE POS II [id number] 2017-Present [phone] [address] [place] [address] POS [id number] 1985 Unknown [id number] 1959 Unknown [id number] Social History Date Type Detail Facility Tobacco smoking stat [facility] Unknown if ever smoked [facility] Work Phone: Start: 1985 Sex Assigned At Not on file [facility] Work Phone: Start: 11-14-2021 End: 10-29-2022 Tobacco smoking status NHIS Never smoked tobacco [facility] History of tobacco use Cigarette Smoker [facility] Start: 11-14-2021 End: 10-29-2022 Tobacco use and exposure Smokeless tobacco non-user [facility] Start: 11-14-2021 End: 07-17-2023 Alcohol intake Current drinker of alcohol (finding) [facility] Start: 11-14-2021 End: 12-11-2022 Alcohol intake [facility] Start: 08-20-2021 End: 11-29-2022 History SDOH Alcohol Frequency 1 [facility] Start: 08-20-2021 History SDOH Alcohol Std Drinks 98 [facility] Start: 08-20-2021 History SDOH Social Connections Phone 4 [facility] Start: 08-20-2021 End: 11-29-2022 History SDOH Social Connections Membership 2 [facility] Start: 08-20-2021 History SDOH Social Connections Living 3 [facility] Start: 08-20-2021 History SDOH Physica l Activity DPW 0 [facility] Start: 08-20-2021 End: 11-29-2022 History SDOH Financial 5 [facility] Start: 07-02-2019 End: 10-22-2022 Tobacco Comment cigar 2 - 3 x yearly [facility] Start: 1985 Sex Assigned At Male C [facility] Start: 11-04-2021 End: 04-03-2022 Exposure to SARS-CoV-2 (event) Not sure [facility] Start: 11-28-2021 History SDOH Alcohol Comment 4 drinks per month [facility] Start: 11-18-2021 End: 11-28-2021 Exposure to SARS-CoV-2 (event) Unable to assess [facility] Start: 09-26-2022 Alcohol Comment 2-3x/week [facility] Start: 08-20-2021 End: 12-11-2022 Social connection and isolation panel [facility] Do you belong to any clubs or organizations such as zoroastrianism groups, unions, fraternal or athletic groups, or school groups? No [facility] Are you now , , , , never or living with a partner? [facility] How often to you hav e a drink containing alcohol? Never [facility] How many standard dr inks containing alcohol do you have on a typical day? Patient refused [facility] Do you feel stress - tense, restless, nervous, or anxious, or unable to sleep at night because your mind is troubled all the time - these days [OSQ] To some extent [facility] (I/We) worried wheji er (my/our) food would run out before (I/we) got money to buy more. Never true [facility] Work Phone: Start: 06-06-2021 Gender identity Identifies as male gender (finding) [facility] Medical Equipment Procedure Code Equipment Code Equipment Origin al Text Equipment Identifier Dates Substitute Mastergraft Calcium Phosphate Collagen Bone Graft Putty Void - [id number] Start: 07-19-2019 Dev Bul Par 9x12 x23 - [id number] Start: 07-19-2019 Screw Viper Prim e Cfxfen Xtab 7x45mm [id number] Start: 07-19-2019 Screw Viper Prim e Cfxfen Xtab 7x50mm [id number] Start: 07-19-2019 Jorge Viper 2 Lord otic Titanium 45mm Spinal Mis - [id number] Start: 07-19-2019 Jorge Viper 2 Lorena nium 50mm Spinal Lordotic Minimally Invasive Surgery - [id number] Start: 07-19-2019 Set Titanium Scr ew 1 Inner Mis Spine - [id number] Start: 07-19-2019 Ileostomy suppli es: - 1 Box Coloplast One piece Assura drainable pouch OR - 2 boxes Coloplast Tacho red flat wafer # [id number] - 1 box Coloplast [place] red drainable pouches # 72305 - 1 box Ryan small barrier rings # 7805 - 1 tube stomahesive paste # 2650 - 1 box Coloplast Elastic barrier strips # [id number] - 1 bottle stomahesive powder # 16157 - 1 box adhesive remover wipes - 1 box skin barrier prep wipes # Start: 12-07-2021 End: 03-18-2023 Clinical Notes 09-21-2021 to 07-17-2023 Santa Marcial, [email or web address] - 07/17/2023 5:00 PM Rolando Sales DO - 04/22/2023 11:00 AM Tamara Mata RT(R) - 04/21/2023 3:00 PM Kenny Cross - 03/13/2023 10:04 AM EDT Note Date & Type Note Facility 07-17-2023 Note HNO ID: [id number] Author: Kylee Foy RT(R) Service: ? Author Type: Sonography Technologist Type: Progress Notes Filed: 07/17/2023 5:14 PM Note Text: Radiology Service Progress Note PATIENT NAME: Eunice Vargas DATE OF SERVICE: July 17, 2023 TIME: 5:13 PM PATIENT IDENTITY VERIFICATION COMPLETED USING TWO (2) IDENTIFIERS: Name and Date of confirmed by patient verbally. FALL SCREENING: Has the patient had 2 falls in the last year or 1 fall with injury or currently using an Ambulatory Assistive Device (Walker, Cane, Wheelchair, Crutches, etc.)? No PATIENT GENDER DATA: Male PATIENT RELEVANT IMPLANT DATA REVIEWED: Yes RADIOLOGY DEPARTMENT: General X-ray: Exam(s) Completed: Chest X-Ray PERIPHERAL IV DATA: Not applicable SIGNED BY: RT Antoinette(R) July 17, 2023 5:[address] [facility] 07-17-2023 Note HNO ID: [id number] Author: Santa Marcial APRN.STAPLE FIBER WASHER Service: ? Author Type: Nurse Practitioner Type: Progress Notes Filed: 07/17/2023 6:14 PM Note Text: This note was created using NoteWriter. Subjective Eunice Vargas is a 37 year old male. 37 year old male with PMH ADD presents for cough. Acute onset one month ago + cough Endorses mostly non productive, but at times productive Denies eye, ear or nose complaints. Denies fever or chills. Denies SOB or dyspnea Denies malaise or fatigue DayQuil has been used Denies tobacco usage. States he is awaiting to establish care with Jesus Raza The history is provided by the patient. No patient scheduler was used. Cough This is a new problem. The current episode started more than 1 week ago. The problem occurs constantly. The problem has not changed since onset.The cough is Non-productive. There has been no fever. Pertinent negatives include no chest pain, no chills, no sweats, no weight loss, no ear congestion, no ear pain, no headaches, no rhinorrhea, no sore throat, no myalgias, no shortness of breath, no wheezing and no eye redness. He has tried cough syrup for the symptoms. The treatment provided no relief. He is not a smoker. His past medical history does not include bronchitis, pneumonia, bronchiectasis, COPD, emphysema or asthma. 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 Le COLONSCOPY SCREENING HIGH RISK 05/25/2021 DENTAL SURGERY PROCEDURE wisdom teeth LAPAROSCOPIC HEMICOLECTOMY 11/10/2021 Dr. Le LUMBAR SPINE FUSN,POST TECH 2019 lumbar spine fusion PAST SURGICAL HISTORY OF Right 12/05/2021 VENTRAL HERNIA REPAIR - General, scar excision,OPEN COMPLETION COLECTOMY, WITH EXTENSIVE LYSIS OF ADHESIONS over 60 minutes, diverting loop ileostomy PAST SURGICAL HISTORY OF 05/2021 right hemicolectomy PEG INSERTION_*FL 05/30/2021 PEG tube placed ALLERGIES Adhesive MEDICATIONS predniSONE (DELTASONE) 10 mg tablet Take 4 tabs daily for 3 days, then 2 tabs daily for 3 days, then 1 tab daily for 3 days with food. doxycycline (VIBRA-TABS) 100 mg tablet Take 1 tablet by mouth two times a day for 10 days. FAMILY HISTORY Problem Relation Age of Onset None Mother Diabetes Father Multiple Sclerosis Maternal Grandmother other (Other macular degeneration) Maternal Grandfather Social History Tobacco Use Smoking status: Never Smokeless tobacco: Never Tobacco comments: cigar 2 - 3 x yearly Vaping Use Vaping Use: Never used Substance Use Topics Alcohol use: Yes Comment: 2-3x/week Drug use: Never Review of Systems Constitutional: Negative for chills and weight loss. HENT: Negative for congestion, dental problem, ear pain, rhinorrhea and sore throat. Eyes: Negative for pain, redness and itching. Respiratory: Positive for cough. Negative for shortness of breath and wheezing. Cardiovascular: Negative for chest pain. Gastrointestinal: Negative for abdominal pain, diarrhea, nausea and vomiting. Musculoskeletal: Negative for myalgias. Skin: Negative for color change, pallor, rash and wound. Allergic/Immunologic: Negative for environmental allergies, food allergies and immunocompromised state. Neurological: Negative for dizziness, facial asymmetry and headaches. Hematological: Negative for adenopathy. Does not bruise/bleed easily. Psychiatric/Behavioral: Negative for agitation and behavioral problems. Objective BP 118/80 Pulse 85 Temp 36.7 ?C (98 ?F) (Tympanic) Resp (!) 1 Wt 81 kg (178 lb 9.6 oz) SpO2 97% BMI 28.83 kg/m? Physical Exam Vitals and nursing note reviewed. Constitutional: General: He is not in acute distress. Appearance: Normal appearance. He is not ill-appearing, toxic-appearing or diaphoretic. HENT: Head: Normocephalic and atraumatic. Right Ear: External ear normal. Left Ear: External ear normal. Nose: Nose normal. No congestion or rhinorrhea. Mouth/Throat: Mouth: Mucous membranes are moist. Pharynx: Oropharynx is clear. No oropharyngeal exudate or posterior oropharyngeal erythema. Eyes: General: Right eye: No discharge. Left eye: No discharge. Extraocular Movements: Extraocular movements intact. Conjunctiva/sclera: Conjunctivae normal. Pupils: Pupils are equal, round, and reactive to light. Cardiovascular: Rate and Rhythm: Normal rate and regular rhythm. Pulses: Normal pulses. Heart sounds: Normal heart sounds. No murmur heard. No friction rub. No gallop. Pulmonary: Effort: Pulmonary effort is normal. No respiratory dis (more content not included)... [facility] 07-17-2023 History of Presen t illness Narrative This note was created using Tappxriter. Subjective Eunice Vargas is a 37 year old male. 37 year old male with PMH ADD presents for cough. Acute onset one month ago + cough Endorses mostly non productive, but at times productive Denies eye, ear or nose complaints. Denies fever or chills. Denies SOB or dyspnea Denies malaise or fatigue DayQuil has been used Denies tobacco usage. States he is awaiting to establish care with Jesus Raza The history is provided by the patient. No patient scheduler was used. Cough This is a new problem. The current episode started more than 1 week ago. The problem occurs constantly. The problem has not changed since onset.The cough is Non-productive. There has been no fever. Pertinent negatives include no chest pain, no chills, no sweats, no weight loss, no ear congestion, no ear pain, no headaches, no rhinorrhea, no sore throat, no myalgias, no shortness of breath, no wheezing and no eye redness. He has tried cough syrup for the symptoms. The treatment provided no relief. He is not a smoker. His past medical history does not include bronchitis, pneumonia, bronchiectasis, COPD, emphysema or asthma. 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 Le COLONSCOPY SCREENING HIGH RISK 05/25/2021 DENTAL SURGERY PROCEDURE wisdom teeth LAPAROSCOPIC HEMICOLECTOMY 11/10/2021 Dr. Le LUMBAR SPINE FUSN,POST TECH 2019 lumbar spine fusion PAST SURGICAL HISTORY OF Right 12/05/2021 VENTRAL HERNIA REPAIR - General, scar excision,OPEN COMPLETION COLECTOMY, WITH EXTENSIVE LYSIS OF ADHESIONS over 60 minutes, diverting loop ileostomy PAST SURGICAL HISTORY OF 05/2021 right hemicolectomy PEG INSERTION_*FL 05/30/2021 PEG tube placed ALLERGIES Adhesive MEDICATIONS predniSONE (DELTASONE) 10 mg tablet Take 4 tabs daily for 3 days, then 2 tabs daily for 3 days, then 1 tab daily for 3 days with food. doxycycline (VIBRA-TABS) 100 mg tablet Take 1 tablet by mouth two times a day for 10 days. FAMILY HISTORY Problem Relation Age of Onset None Mother Diabetes Father Multiple Sclerosis Maternal Grandmother other (Other macular degeneration) Maternal Grandfather Social History Tobacco Use Smoking status: Never Smokeless tobacco: Never Tobacco comments: cigar 2 - 3 x yearly Vaping Use Vaping Use: Never used Substance Use Topics Alcohol use: Yes Comment: 2-3x/week Drug use: Never Review of Systems Constitutional: Negative for chills and weight loss. HENT: Negative for congestion, dental problem, ear pain, rhinorrhea and sore throat. Eyes: Negative for pain, redness and itching. Respiratory: Positive for cough. Negative for shortness of breath and wheezing. Cardiovascular: Negative for chest pain. Gastrointestinal: Negative for abdominal pain, diarrhea, nausea and vomiting. Musculoskeletal: Negative for myalgias. Skin: Negative for color change, pallor, rash and wound. Allergic/Immunologic: Negative for environmental allergies, food allergies and immunocompromised state. Neurological: Negative for dizziness, facial asymmetry and headaches. Hematological: Negative for adenopathy. Does not bruise/bleed easily. Psychiatric/Behavioral: Negative for agitation and behavioral problems. Objective BP 118/80 Pulse 85 Temp 36.7 C (98 F) (Tympanic) Resp (!) 1 Wt 81 kg (178 lb 9.6 oz) SpO2 97% BMI 28.83 kg/m Physical Exam Vitals and nursing note reviewed. Constitutional: General: He is not in acute distress. Appearance: Normal appearance. He is not ill-appearing, toxic-appearing or diaphoretic. HENT: Head: Normocephalic and atraumatic. Right Ear: External ear normal. Left Ear: External ear normal. Nose: Nose normal. No congestion or rhinorrhea. Mouth/Throat: Mouth: Mucous membranes are moist. Pharynx: Oropharynx is clear. No oropharyngeal exudate or posterior oropharyngeal erythema. Eyes: General: Right eye: No discharge. Left eye: No discharge. Extraocular Movements: Extraocular movements intact. Conjunctiva/sclera: Conjunctivae normal. Pupils: Pupils are equal, round, and reactive to light. Cardiovascular: Rate and Rhythm: Normal rate and regular rhythm. Pulses: Normal pulses. Heart sounds: Normal heart sounds. No murmur heard. No friction rub. No gallop. Pulmonary: Effort: Pulmonary effort is normal. No respiratory distress. Breath sounds: Normal breath sounds. No stridor. No wheezing, rhonchi or rales. Chest: Chest wall: No tenderness. Abdominal: General: Abdomen is flat. There is no distension. Palpations: Abdomen is soft. There is no mass. Tenderness: There is no abdominal tenderness. There is no guarding or rebound. Hernia: No hernia is present. Musculoskeletal: General: No swelling, tenderness, deformity or signs of injury. Normal range of motion. Cervical back: Normal range of motion and neck supple. No rigidity or tenderness. Right lower leg: No edema. Left lower leg: No edema. Lymphadenopathy: Cervical: No cervical adenopathy. Skin: General: Skin is warm and dry. Capillary Refill: Capillary refill takes less than 2 seconds. Coloration: Skin is not jaundiced or pale. Findings: No bruising, lesion or rash. Neurological: General: No focal deficit present. Mental Status: He is alert and oriented to person, place, and time. Cranial Nerves: No cranial nerve deficit. Sensory: No sensory deficit. Motor: No weakness. Coordination: Coordination normal. Gait: Gait normal. Deep Tendon Reflexes: Reflexes normal. Psychiatric: Mood and Affect: Mood normal. Behavior: Behavior normal. Thought Content: Thought content normal. Assessment and Plan ASSESSMENT/PLAN: 1. Acute cough - ICD9: 786.2, ICD10: R05.1 X one month No red flags Lungs CTA No smoker - PREDNISONE 10 MG TABLET - DOXYCYCLINE HYCLATE 100 MG TABLET - XR CHEST 2V FRONTAL/LAT-negative Will utilized Prednisone and Doxy F/U for persistent symptoms. Santa Marcial APRN.STAPLE FIBER WASHER documented in this encounter [facility] 04-22-2023 Note HNO ID: [id number] Author: Rolando Eugene DO Service: ? Author Type: Physician Type: Progress Notes Filed: 04/22/2023 11:06 AM Note Text: Rolando Eugene DO [facility] General Orthopedics - Orthopedic Spine Surgeon [address], [facility] [address] [place] [address] Phone: [phone] FAX: [phone] SPINE SURGERY OUTPATIENT CONSULT SERVICE DATE: 04/16/2023 Last Office Visit: 03/18/2023 REFERRING PROVIDER: No referring provider defined for this encounter. CHIEF COMPLAINT: Left leg numbness and tingling HISTORY OF PRESENT ILLNESS Eunice Vargas is a 37 year old male presenting alone. He has a past medical history of ADHD, ileostomy, and colonic inertia. He was last seen in office 03/18/2023 as a new patient with x-ray imaging of the lumbar spine. He reported onset of symptoms approximately 3-4 weeks prior with no inciting event. He describes left sided low back pain that traveled to his left hip and gluteal region. He reported numbness in his left anterior young that traveled to the top of his left foot and into all of his toes. Denied issues with balance, falls, weakness, or incontinence. He had taken oral steroids and muscle relaxants for pain with no relief. He stated that his left hip pain was the most bothersome. him the most. He had participated in care transition manager with no relief. His lumbar x-rays at this visit showed hardware in stable position. He was asked to obtain MRI of the lumbar spine and follow up upon completion, prompting his visit today. He states that his symptoms are the same. States that he still has left leg numbness and tingling. States that it does not bother him that much today. PREVIOUS CONSERVATIVE TREATMENTS: Prednisone Flexeril manager primary care x2 PREVIOUS SURGERY: SURGERY #1: L4-5 TLIF with PSF on 07/19/[address] 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 Le COLONSCOPY SCREENING HIGH RISK 05/25/2021 DENTAL SURGERY PROCEDURE wisdom teeth LAPAROSCOPIC HEMICOLECTOMY 11/10/2021 Dr. Le LUMBAR SPINE FUSN,POST TECH 2019 lumbar spine fusion PAST SURGICAL HISTORY OF Right 12/05/2021 VENTRAL HERNIA REPAIR - General, scar excision,OPEN COMPLETION COLECTOMY, WITH EXTENSIVE LYSIS OF ADHESIONS over 60 minutes, diverting loop ileostomy PAST SURGICAL HISTORY OF 05/2021 right hemicolectomy PEG INSERTION_*FL 05/30/2021 PEG tube placed FAMILY HISTORY Problem Relation Age of Onset None Mother Diabetes Father Multiple Sclerosis Maternal Grandmother other (Other macular degeneration) Maternal Grandfather Social History Tobacco Use Smoking status: Never Smokeless tobacco: Never Tobacco comments: cigar 2 - 3 x yearly Vaping Use Vaping Use: Never used Substance Use Topics Alcohol use: Yes Comment: 2-3x/week Drug use: Never ALLERGIES Allergen Reactions Adhesive Other: See Comments Large blisters MEDICATIONS: No prescriptions on file. REVIEW OF SYSTEMS Review of Systems OBJECTIVE: There were no vitals taken for this visit. PHYSICAL EXAM GENERAL APPEARANCE: Well nourished, well developed, and no apparent distress. NEURO PSYCH: Patient oriented to person, place, and time. Mood pleasant. Benign affect. CARDIOVASCULAR: Palpable pulses. No edema noted. No varicosities. SKIN: Head, neck, trunk, and extremities dry, intact and without lesions. LYMPHATICS: No palpable nodes in cervical or axillae areas. Groin exam deferred MUSCULOSKELETAL PALPATION: SPINOUS PROCESS: No pain. PARASPINALS: No pain. MUSCLE TONE and BULK: Symmetrical in the upper AND lower extremities. Left Right Lower Extremity Hip Flexors 5/5 5/5 Quadriceps 5/5 5/5 Dorsiflexion 5/5 5/5 EHL/EDC 5/5 5/5 Plantar Flexion 5/5 5/5 SENSORY: Sensation intact to light touch L1-S1 GAIT: Able to perform toe and heel walk. Able to perform tandem gait. LONG TRACT SIGNS: No clonus. REFLEXES: symmetric non-brisk DATA REVIEW MRI of the lumbar spine performed 04/21/2023 MRI of the lumbar spine displays a previous L4-5 fusion that is well decompressed. No significant central lateral recess or foraminal stenosis throughout the entire lumbar spine. ASSESSMENT/PLAN Eunice Vargas is a 37-year-old male with left leg numbness and tingling. -I had a long discussion today with the patient. I reviewed his MRI with him. I do not see any si (more content not included)... [facility] 04-22-2023 History of Presen t illness Narrative Images from the original note were not included. Rolando Eugene DO [facility] - Orthopedic Spine Surgeon [address], [facility] [id number] [address] [place] [address] Phone: [phone] FAX: [phone] SPINE SURGERY OUTPATIENT CONSULT SERVICE DATE: 04/16/2023 Last Office Visit: 03/18/2023 REFERRING PROVIDER: No referring provider defined for this encounter. CHIEF COMPLAINT: Left leg numbness and tingling HISTORY OF PRESENT ILLNESS Eunice Vargas is a 37 year old male presenting alone. He has a past medical history of ADHD, ileostomy, and colonic inertia. He was last seen in office 03/18/2023 as a new patient with x-ray imaging of the lumbar spine. He reported onset of symptoms approximately 3-4 weeks prior with no inciting event. He describes left sided low back pain that traveled to his left hip and gluteal region. He reported numbness in his left anterior young that traveled to the top of his left foot and into all of his toes. Denied issues with balance, falls, weakness, or incontinence. He had taken oral steroids and muscle relaxants for pain with no relief. He stated that his left hip pain was the most bothersome. him the most. He had participated in care transition manager with no relief. His lumbar x-rays at this visit showed hardware in stable position. He was asked to obtain MRI of the lumbar spine and follow up upon completion, prompting his visit today. He states that his symptoms are the same. States that he still has left leg numbness and tingling. States that it does not bother him that much today. PREVIOUS CONSERVATIVE TREATMENTS: Prednisone Flexeril manager primary care x2 PREVIOUS SURGERY: SURGERY #1: L4-5 TLIF with PSF on 07/19/[address] 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 Le COLONSCOPY SCREENING HIGH RISK 05/25/2021 DENTAL SURGERY PROCEDURE wisdom teeth LAPAROSCOPIC HEMICOLECTOMY 11/10/2021 Dr. Le LUMBAR SPINE FUSN,POST TECH 2019 lumbar spine fusion PAST SURGICAL HISTORY OF Right 12/05/2021 VENTRAL HERNIA REPAIR - General, scar excision,OPEN COMPLETION COLECTOMY, WITH EXTENSIVE LYSIS OF ADHESIONS over 60 minutes, diverting loop ileostomy PAST SURGICAL HISTORY OF 05/2021 right hemicolectomy PEG INSERTION_*FL 05/30/2021 PEG tube placed FAMILY HISTORY Problem Relation Age of Onset None Mother Diabetes Father Multiple Sclerosis Maternal Grandmother other (Other macular degeneration) Maternal Grandfather Social History Tobacco Use Smoking status: Never Smokeless tobacco: Never Tobacco comments: cigar 2 - 3 x yearly Vaping Use Vaping Use: Never used Substance Use Topics Alcohol use: Yes Comment: 2-3x/week Drug use: Never ALLERGIES Allergen Reactions Adhesive Other: See Comments Large blisters MEDICATIONS: No prescriptions on file. REVIEW OF SYSTEMS Review of Systems OBJECTIVE: There were no vitals taken for this visit. PHYSICAL EXAM GENERAL APPEARANCE: Well nourished, well developed, and no apparent distress. NEURO PSYCH: Patient oriented to person, place, and time. Mood pleasant. Benign affect. CARDIOVASCULAR: Palpable pulses. No edema noted. No varicosities. SKIN: Head, neck, trunk, and extremities dry, intact and without lesions. LYMPHATICS: No palpable nodes in cervical or axillae areas. Groin exam deferred MUSCULOSKELETAL PALPATION: SPINOUS PROCESS: No pain. PARASPINALS: No pain. MUSCLE TONE and BULK: Symmetrical in the upper & lower extremities. Left Right Lower Extremity Hip Flexors 5/5 5/5 Quadriceps 5/5 5/5 Dorsiflexion 5/5 5/5 EHL/EDC 5/5 5/5 Plantar Flexion 5/5 5/5 SENSORY: Sensation intact to light touch L1-S1 GAIT: Able to perform toe and heel walk. Able to perform tandem gait. LONG TRACT SIGNS: No clonus. REFLEXES: symmetric non-brisk DATA REVIEW MRI of the lumbar spine performed 04/21/2023 MRI of the lumbar spine displays a previous L4-5 fusion that is well decompressed. No significant central lateral recess or foraminal stenosis throughout the entire lumbar spine. ASSESSMENT/PLAN Eunice Vargas is a 37-year-old male with left leg numbness and tingling. -I had a long discussion today with the patient. I reviewed his MRI with him. I do not see any significant stenosis. I recommend continued conservative care. I offered the patient physical therapy today. Patient states that does not bother him that much and he does not wish to proceed with physical therapy. He will call me if he develops any new symptoms. He will follow-up as needed. The following portions of the patient's history were reviewed, confirmed, and updated as necessary: allergies, current medications, past family history, past medical history, past social history, past surgical history, problem list, HPI, and ROS obtained by others. Some elements may be copied from a previous office note and have been reviewed/updated where appropriate. All portions reflect current medical decision making from today. The clinical and radiographic findings as well as the risks, benefits and alternatives of treatment have been reviewed in detail with the patient. Advised to call the office if symptoms worsen or new symptoms develop. Patient expressed understanding and is in agreement with plan. Rolando Eugene DO This note was partially generated using DynaPump voice recognition system, and there may be some incorrect words, spellings, and punctuation that were not noted in checking the note before saving. documented in this encounter [facility] 04-21-2023 Note HNO ID: [id number] Author: Tamara White RT(R) Service: ? Author Type: Technologist Type: Progress Notes Filed: 04/21/2023 3:14 PM Note Text: Radiology Service Progress Note PATIENT NAME: Eunice Vargas DATE OF SERVICE: April 21, 2023 TIME: 3:14 PM PATIENT IDENTITY VERIFICATION COMPLETED USING TWO (2) IDENTIFIERS: Name and Date of confirmed by patient verbally. FALL SCREENING: Has the patient had 2 falls in the last year or 1 fall with injury or currently using an Ambulatory Assistive Device (Walker, Cane, Wheelchair, Crutches, etc.)? No PATIENT GENDER DATA: Male PATIENT RELEVANT IMPLANT DATA REVIEWED: Yes RADIOLOGY DEPARTMENT: MR; Exam(s) Completed: Spine: Lumbar spine PERIPHERAL IV DATA: Not applicable SIGNED BY: RT Yesica(R) April 21, 2023 3:[address] [facility] 04-21-2023 History of Presen t illness Narrative Radiology Service Progress Note PATIENT NAME: Eunice Vargas DATE OF SERVICE: April 21, 2023 TIME: 3:14 PM PATIENT IDENTITY VERIFICATION COMPLETED USING TWO (2) IDENTIFIERS: Name and Date of confirmed by patient verbally. FALL SCREENING: Has the patient had 2 falls in the last year or 1 fall with injury or currently using an Ambulatory Assistive Device (Walker, Cane, Wheelchair, Crutches, etc.)? No PATIENT GENDER DATA: Male PATIENT RELEVANT IMPLANT DATA REVIEWED: Yes RADIOLOGY DEPARTMENT: MR; Exam(s) Completed: Spine: Lumbar spine PERIPHERAL IV DATA: Not applicable SIGNED BY: RT Yesica(R) April 21, 2023 3:14 PM documented in this encounter [facility] 04-03-2023 Miscellaneous Notes Pt informed, verbalized understanding Robyn Richter Unfortunately, our pcp team is not accepting any new patients. We apologize for the inconvenience. Thank you, Deanna Resendiz APRN.[employer] Pt's mother called checking status of previous request to have her son and [id number] be seen by Dr. Coley Patient calling stating Dr. Coley spoke with his mother Marissa Noble #[phone] stating that Dr. Coley will see patent an dhis Santa Vargas #[phone]. Please advise. documented in this encounter [facility] 03-18-2023 Note HNO ID: [id number] Author: Rolando Eugene DO Service: ? Author Type: Physician Type: Progress Notes Filed: 03/18/2023 1:43 PM Note Text: Rolando Eugene DO [facility] - Orthopedic Spine Surgeon [address], [facility] [id number] [address] [facility] [place] [address] Phone: [phone] FAX: [phone] SPINE SURGERY OUTPATIENT CONSULT SERVICE DATE: 03/18/2023 Last Office Visit: Visit date not found REFERRING PROVIDER: No referring provider defined for this encounter. CHIEF COMPLAINT: Left leg numbness HISTORY OF PRESENT ILLNESS Eunice Vargas is a 37 year old male presenting alone. He has a past medical history of ADHD, ileostomy, and colonic inertia. He presents today with x-ray imaging. He states that about 3-4 weeks ago, he woke up with left sided low back pain that travels to his left hip and gluteal region. He reports numbness in his left anterior young that travels to the top of his left foot and into all of his toes. Denies issues with balance, falls, weakness, or incontinence. He has taken oral steroids and muscle relaxants for pain with no relief. He states that his left hip pain hurts him the most. He presents today for image review, evaluation and plan of care. States that the entire left leg has numbness more so than pain. Pain began 3-4 weeks ago without an inciting event. 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 Le COLONSCOPY SCREENING HIGH RISK 05/25/2021 DENTAL SURGERY PROCEDURE wisdom teeth LAPAROSCOPIC HEMICOLECTOMY 11/10/2021 Dr. Le LUMBAR SPINE FUSN,POST TECH 2019 lumbar spine fusion PAST SURGICAL HISTORY OF Right 12/05/2021 VENTRAL HERNIA REPAIR - General, scar excision,OPEN COMPLETION COLECTOMY, WITH EXTENSIVE LYSIS OF ADHESIONS over 60 minutes, diverting loop ileostomy PAST SURGICAL HISTORY OF 05/2021 right hemicolectomy PEG INSERTION_*FL 05/30/2021 PEG tube placed FAMILY HISTORY Problem Relation Age of Onset None Mother Diabetes Father Multiple Sclerosis Maternal Grandmother other (Other macular degeneration) Maternal Grandfather Social History Tobacco Use Smoking status: Never Smokeless tobacco: Never Tobacco comments: cigar 2 - 3 x yearly Vaping Use Vaping Use: Never used Substance Use Topics Alcohol use: Yes Comment: 2-3x/week Drug use: Never ALLERGIES Allergen Reactions Adhesive Other: See Comments Large blisters MEDICATIONS: No prescriptions on file. REVIEW OF SYSTEMS Review of Systems Constitutional: Negative for chills, diaphoresis and fever. HENT: Negative for sinus pressure, sinus pain and trouble swallowing. Eyes: Negative for pain, redness and visual disturbance. Respiratory: Negative for cough, shortness of breath and wheezing. Cardiovascular: Negative for chest pain, palpitations and leg swelling. Gastrointestinal: Negative for constipation, diarrhea and nausea. Endocrine: Negative for cold intolerance and heat intolerance. Genitourinary: Negative for difficulty urinating, frequency and urgency. Musculoskeletal: Positive for back pain. Negative for gait problem and neck pain. Skin: Negative for color change, pallor and rash. Allergic/Immunologic: Negative for environmental allergies, food allergies and immunocompromised state. Neurological: Positive for numbness. Negative for weakness and headaches. Hematological: Does not bruise/bleed easily. Psychiatric/Behavioral: Negative for agitation, behavioral problems and confusion. OBJECTIVE: BP 123/70 Pulse 77 Resp 16 Ht 5' 6 (1.676 m) Wt 171 lb (77.6 kg) SpO2 99% BMI 27.60 kg/m? PHYSICAL EXAM GENERAL APPEARANCE: Well nourished, well developed, and no apparent distress. NEURO PSYCH: Patient oriented to person, place, and time. Mood pleasant. Benign affect. CARDIOVASCULAR: Palpable pulses. No edema noted. No varicosities. SKIN: Head, neck, trunk, and extremities dry, intact and without lesions. LYMPHATICS: No palpable nodes in cervical or axillae areas. Groin exam deferred MUSCULOSKELETAL PALPATION: SPINOUS PROCESS: No pain. PARASPINALS: No pain. MUSCLE (more content not included)... [facility] 03-18-2023 History of Presen t illness Narrative Images from the original note were not included. Rolando Eugene DO [facility] - Orthopedic Spine Surgeon [address], [facility] [address] [address] [place] [address] Phone: [phone] FAX: [phone] SPINE SURGERY OUTPATIENT CONSULT SERVICE DATE: 03/18/2023 Last Office Visit: Visit date not found REFERRING PROVIDER: No referring provider defined for this encounter. CHIEF COMPLAINT: Left leg numbness HISTORY OF PRESENT ILLNESS Eunice Vargas is a 37 year old male presenting alone. He has a past medical history of ADHD, ileostomy, and colonic inertia. He presents today with x-ray imaging. He states that about 3-4 weeks ago, he woke up with left sided low back pain that travels to his left hip and gluteal region. He reports numbness in his left anterior young that travels to the top of his left foot and into all of his toes. Denies issues with balance, falls, weakness, or incontinence. He has taken oral steroids and muscle relaxants for pain with no relief. He states that his left hip pain hurts him the most. He presents today for image review, evaluation and plan of care. States that the entire left leg has numbness more so than pain. Pain began 3-4 weeks ago without an inciting event. 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 Le COLONSCOPY SCREENING HIGH RISK 05/25/2021 DENTAL SURGERY PROCEDURE wisdom teeth LAPAROSCOPIC HEMICOLECTOMY 11/10/2021 Dr. Le LUMBAR SPINE FUSN,POST TECH 2019 lumbar spine fusion PAST SURGICAL HISTORY OF Right 12/05/2021 VENTRAL HERNIA REPAIR - General, scar excision,OPEN COMPLETION COLECTOMY, WITH EXTENSIVE LYSIS OF ADHESIONS over 60 minutes, diverting loop ileostomy PAST SURGICAL HISTORY OF 05/2021 right hemicolectomy PEG INSERTION_*FL 05/30/2021 PEG tube placed FAMILY HISTORY Problem Relation Age of Onset None Mother Diabetes Father Multiple Sclerosis Maternal Grandmother other (Other macular degeneration) Maternal Grandfather Social History Tobacco Use Smoking status: Never Smokeless tobacco: Never Tobacco comments: cigar 2 - 3 x yearly Vaping Use Vaping Use: Never used Substance Use Topics Alcohol use: Yes Comment: 2-3x/week Drug use: Never ALLERGIES Allergen Reactions Adhesive Other: See Comments Large blisters MEDICATIONS: No prescriptions on file. REVIEW OF SYSTEMS Review of Systems Constitutional: Negative for chills, diaphoresis and fever. HENT: Negative for sinus pressure, sinus pain and trouble swallowing. Eyes: Negative for pain, redness and visual disturbance. Respiratory: Negative for cough, shortness of breath and wheezing. Cardiovascular: Negative for chest pain, palpitations and leg swelling. Gastrointestinal: Negative for constipation, diarrhea and nausea. Endocrine: Negative for cold intolerance and heat intolerance. Genitourinary: Negative for difficulty urinating, frequency and urgency. Musculoskeletal: Positive for back pain. Negative for gait problem and neck pain. Skin: Negative for color change, pallor and rash. Allergic/Immunologic: Negative for environmental allergies, food allergies and immunocompromised state. Neurological: Positive for numbness. Negative for weakness and headaches. Hematological: Does not bruise/bleed easily. Psychiatric/Behavioral: Negative for agitation, behavioral problems and confusion. OBJECTIVE: BP 123/70 Pulse 77 Resp 16 Ht 5' 6 (1.676 m) Wt 171 lb (77.6 kg) SpO2 99% BMI 27.60 kg/m PHYSICAL EXAM GENERAL APPEARANCE: Well nourished, well developed, and no apparent distress. NEURO PSYCH: Patient oriented to person, place, and time. Mood pleasant. Benign affect. CARDIOVASCULAR: Palpable pulses. No edema noted. No varicosities. SKIN: Head, neck, trunk, and extremities dry, intact and without lesions. LYMPHATICS: No palpable nodes in cervical or axillae areas. Groin exam deferred MUSCULOSKELETAL PALPATION: SPINOUS PROCESS: No pain. PARASPINALS: No pain. MUSCLE TONE and BULK: Symmetrical in the upper & lower extremities. MOTOR: Left Right Lower Extremity Hip Flexors 5/5 5/5 Quadriceps 5/5 5/5 Dorsiflexion 5/5 5/5 EHL/EDC 5/5 5/5 Plantar Flexion 5/5 5/5 SENSORY: Sensation intact to light touch L1-S1 GAIT: Able to perform toe and heel walk. Able to perform tandem gait. LONG TRACT SIGNS: No clonus. No Hoffmanns. REFLEXES: symmetric non-brisk DATA REVIEW XR LUMBAR 3V AP/LAT/L5-S1 performed on 03/13/2023. Findings were noted as: IMPRESSION: No acute bony finding. XR LUMBAR 2V FLEX/EXT performed on 03/18/2023. Flexion-extension views of the lumbar spine display a previous L4-5 TLIF with hardware in stable position. ASSESSMENT/PLAN Eunice Vargas is a 37-year-old male with left leg numbness and tingling. -I had a long discussion today with the patient. I reviewed his current and former imaging with him. I reviewed his previous medical notes. His symptoms appear to be coming from his lumbar spine. He has tried care transition manager without any improvement. Recommend an MRI of the lumbar spine. He will follow-up me once the MRI is completed. The following portions of the patient's history were reviewed, confirmed, and updated as necessary: allergies, current medications, past family history, past medical history, past social history, past surgical history, problem list, HPI, and ROS obtained by others. Some elements may be copied from a previous office note and have been reviewed/updated where appropriate. All portions reflect current medical decision making from today. The clinical and radiographic findings as well as the risks, benefits and alternatives of treatment have been reviewed in detail with the patient. Advised to call the office if symptoms worsen or new symptoms develop. Patient expressed understanding and is in agreement with plan. Rolando Eugene, DO This note was partially generated using DynaPump voice recognition system, and there may be some incorrect words, spellings, and punctuation that were not noted in checking the note before saving. Medical Decision Making: Problems: Moderate: 1+ chronic illnesses with change Data: Unique source(s) for external note(s) reviewed: 1 Unique test result(s) reviewed: 1 Unique test(s) ordered: 1 Independent interpretation of test from other physician/QHCP Risk: Low: Low risk from testing/treatment Medical Decision Making Level: 4 - Moderate documented in this encounter [facility] 03-13-2023 Note HNO ID: [id number] Author: Sanna Troy RT(R) Service: Radiology Author Type: Technologist Type: Progress Notes Filed: 03/13/2023 12:31 PM Note Text: Radiology Service Progress Note PATIENT NAME: Eunice Vargas DATE OF SERVICE: March 13, 2023 TIME: 12:19 PM PATIENT IDENTITY VERIFICATION COMPLETED USING TWO (2) IDENTIFIERS: Name and Date of confirmed by patient verbally. FALL SCREENING: Has the patient had 2 falls in the last year or 1 fall with injury or currently using an Ambulatory Assistive Device (Walker, Cane, Wheelchair, Crutches, etc.)? No PATIENT GENDER DATA: Male PATIENT RELEVANT IMPLANT DATA REVIEWED: Not Applicable RADIOLOGY DEPARTMENT: General X-ray: Exam(s) Completed: Spine X-Ray(s): Lumbar AP / LAT / L5-S1 PERIPHERAL IV DATA: Not applicable SIGNED BY: RT Cyril(R) March 13, 2023 12:[address] [facility] 03-13-2023 Note HNO ID: [id number] Author: Jesus Fitzgerald PA Service: ? Author Type: Physician Kelp Cutter Type: Progress Notes Filed: 03/13/2023 12:53 PM Note Text: This note was created using Tappxriter. Subjective Eunice Vargas is a 37 year old male. HPI 37-year-old presents for low back pain and left leg pain. Patient states that he has been having low back pain left leg pain for the past few weeks. No fall or injury. He was seen here last week and diagnosed with sciatica. He was put on a prednisone taper and muscle relaxer. He still has 4 days left of the prednisone taper. He states that yesterday he started getting worsening pain in the left leg again. He fell due to the pain. He states he fell onto his knees. No injury. Did not hit his head. He denies any numbness in the legs. He does report that the left leg has pain and some tingling in it. He has history of herniated disc with L4-L5 fusion in the past. He denies any fevers. No loss of bowel or bladder function. No other complaints. 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 Le COLONSCOPY SCREENING HIGH RISK 05/25/2021 DENTAL SURGERY PROCEDURE wisdom teeth LAPAROSCOPIC HEMICOLECTOMY 11/10/2021 Dr. Le LUMBAR SPINE FUSN,POST TECH 2019 lumbar spine fusion PAST SURGICAL HISTORY OF Right 12/05/2021 VENTRAL HERNIA REPAIR - General, scar excision,OPEN COMPLETION COLECTOMY, WITH EXTENSIVE LYSIS OF ADHESIONS over 60 minutes, diverting loop ileostomy PAST SURGICAL HISTORY OF 05/2021 right hemicolectomy PEG INSERTION_*FL 05/30/2021 PEG tube placed ALLERGIES Adhesive MEDICATIONS predniSONE (DELTASONE) 10 mg tablet Take 6 tabs for 3 days, then 4 tabs for 3 days, then 2 tabs for 3 days then 1 tab for 3 days with food. cyclobenzaprine (FLEXERIL) 10 mg tablet Take 1 tablet by mouth three times daily as needed for muscle spasm. ondansetron orally disintegrating (ZOFRAN ODT) 4 mg disintegrating tablet Take 1 tablet by mouth every 8 hours as needed for nausea/vomiting. (Patient not taking: No sig reported) loperamide (IMODIUM) 2 mg cap(s) Take 1 capsule by mouth three times daily. (Patient not taking: No sig reported) Miscellaneous Medical Supply Ileostomy supplies: - 1 Box Coloplast One piece Assura drainable pouch OR - 2 boxes Coloplast [place] red flat wafer # 63649 - 1 box Coloplast [place] red drainable pouches # 12161 - 1 box Ryan small barrier rings # 7805 - 1 tube stomahesive paste # 2650 - 1 box Coloplast Elastic barrier strips # [id number] - 1 bottle stomahesive powder # 61572 - 1 box adhesive remover wipes - 1 box skin barrier prep wipes # (Patient not taking: Reported on 12/11/2022) MULTIVITAMIN ORAL Take 1 tablet by mouth once daily. FAMILY HISTORY Problem Relation Age of Onset None Mother Diabetes Father Multiple Sclerosis Maternal Grandmother other (Other macular degeneration) Maternal Grandfather Social History Tobacco Use Smoking status: Never Smokeless tobacco: Never Tobacco comments: cigar 2 - 3 x yearly Vaping Use Vaping Use: Never used Substance Use Topics Alcohol use: Yes Comment: 2-3x/week Drug use: Never Review of Systems Constitutional: Negative for chills and fever. HENT: Negative for congestion and sore throat. Respiratory: Negative for cough and shortness of breath. Gastrointestinal: Negative for diarrhea and vomiting. Musculoskeletal: Positive for arthralgias, back pain and myalgias. Objective BP 130/84 Pulse 88 Temp 36.9 ?C (98.5 ?F) Resp 18 Wt 77.7 kg (171 lb 6.4 oz) SpO2 98% BMI 27.66 kg/m? Physical Exam Vitals and nursing note reviewed. Constitutional: General: He is not in acute distress. Appearance: Normal appearance. He is not toxic-appearing. Cardiovascular: Rate and Rhythm: Normal rate and regular rhythm. Pulmonary: Effort: Pulmonary effort is normal. Breath sounds: Normal breath sounds. Musculoskeletal: Lumbar back: Tenderness present. No bony tenderness. Decreased range of motion. Positive left straight leg raise test. Negative right straight leg raise test. Comments: Decreased ROM lumbar spine due to pain. Left-sided paraspinal muscle tenderness and left gluteus tenderness. Positive seated straight leg raise on the left. Negative on the right. Normal sensation. Able to ambulate. No ankle clonus. Skin: General: Skin is warm and dry. Neurological: Mental Status: He is alert. Assessment and Plan ASSESSMENT/PLAN: 1. Acute left-sided low back pain with left-sided sciatica - ICD9: 724.2, 724.3, ICD10: M54.42 - (more content not included)... [facility] 03-13-2023 History of Presen t illness Narrative This note was created using NoteWriter. Subjective Eunice Vargas is a 37 year old male. HPI 37-year-old presents for low back pain and left leg pain. Patient states that he has been having low back pain left leg pain for the past few weeks. No fall or injury. He was seen here last week and diagnosed with sciatica. He was put on a prednisone taper and muscle relaxer. He still has 4 days left of the prednisone taper. He states that yesterday he started getting worsening pain in the left leg again. He fell due to the pain. He states he fell onto his knees. No injury. Did not hit his head. He denies any numbness in the legs. He does report that the left leg has pain and some tingling in it. He has history of herniated disc with L4-L5 fusion in the past. He denies any fevers. No loss of bowel or bladder function. No other complaints. PAST MEDICAL HISTORY Diagnosis Date ADHD (attention deficit hyperactivity disorder) Colon immotility colon inertia per pt Colonic inertia Ileostomy in place ([facility]) 2021 Lumbar disc herniation with radiculopathy Sigmoidoscopy performed 09/26/2022 PAST SURGICAL HISTORY Procedure Laterality Date APPENDECTOMY 05/14/2021 w/ 2/3rd of colon removed at same time CLOSURE ENTEROSTOMY LG/SMALL INTESTINE 11/26/2022 Dr. Le COLONSCOPY SCREENING HIGH RISK 05/25/2021 DENTAL SURGERY PROCEDURE wisdom teeth LAPAROSCOPIC HEMICOLECTOMY 11/10/2021 Dr. Le LUMBAR SPINE FUSN,POST TECH 2019 lumbar spine fusion PAST SURGICAL HISTORY OF Right 12/05/2021 VENTRAL HERNIA REPAIR - General, scar excision,OPEN COMPLETION COLECTOMY, WITH EXTENSIVE LYSIS OF ADHESIONS over 60 minutes, diverting loop ileostomy PAST SURGICAL HISTORY OF 05/2021 right hemicolectomy PEG INSERTION_*FL 05/30/2021 PEG tube placed ALLERGIES Adhesive MEDICATIONS predniSONE (DELTASONE) 10 mg tablet Take 6 tabs for 3 days, then 4 tabs for 3 days, then 2 tabs for 3 days then 1 tab for 3 days with food. cyclobenzaprine (FLEXERIL) 10 mg tablet Take 1 tablet by mouth three times daily as needed for muscle spasm. ondansetron orally disintegrating (ZOFRAN ODT) 4 mg disintegrating tablet Take 1 tablet by mouth every 8 hours as needed for nausea/vomiting. (Patient not taking: No sig reported) loperamide (IMODIUM) 2 mg cap(s) Take 1 capsule by mouth three times daily. (Patient not taking: No sig reported) Miscellaneous Medical Supply Ileostomy supplies: - 1 Box Coloplast One piece Assura drainable pouch OR - 2 boxes Coloplast [place] red flat wafer # 26730 - 1 box Coloplast [place] red drainable pouches # 21797 - 1 box [place] small barrier rings # 7805 - 1 tube stomahesive paste # 2650 - 1 box Coloplast Elastic barrier strips # [id number] - 1 bottle stomahesive powder # 30738 - 1 box adhesive remover wipes - 1 box skin barrier prep wipes # (Patient not taking: Reported on 12/11/2022) MULTIVITAMIN ORAL Take 1 tablet by mouth once daily. FAMILY HISTORY Problem Relation Age of Onset None Mother Diabetes Father Multiple Sclerosis Maternal Grandmother other (Other macular degeneration) Maternal Grandfather Social History Tobacco Use Smoking status: Never Smokeless tobacco: Never Tobacco comments: cigar 2 - 3 x yearly Vaping Use Vaping Use: Never used Substance Use Topics Alcohol use: Yes Comment: 2-3x/week Drug use: Never Review of Systems Constitutional: Negative for chills and fever. HENT: Negative for congestion and sore throat. Respiratory: Negative for cough and shortness of breath. Gastrointestinal: Negative for diarrhea and vomiting. Musculoskeletal: Positive for arthralgias, back pain and myalgias. Objective BP 130/84 Pulse 88 Temp 36.9 C (98.5 F) Resp 18 Wt 77.7 kg (171 lb 6.4 oz) SpO2 98% BMI 27.66 kg/m Physical Exam Vitals and nursing note reviewed. Constitutional: General: He is not in acute distress. Appearance: Normal appearance. He is not toxic-appearing. Cardiovascular: Rate and Rhythm: Normal rate and regular rhythm. Pulmonary: Effort: Pulmonary effort is normal. Breath sounds: Normal breath sounds. Musculoskeletal: Lumbar back: Tenderness present. No bony tenderness. Decreased range of motion. Positive left straight leg raise test. Negative right straight leg raise test. Comments: Decreased ROM lumbar spine due to pain. Left-sided paraspinal muscle tenderness and left gluteus tenderness. Positive seated straight leg raise on the left. Negative on the right. Normal sensation. Able to ambulate. No ankle clonus. Skin: General: Skin is warm and dry. Neurological: Mental Status: He is alert. Assessment and Plan ASSESSMENT/PLAN: 1. Acute left-sided low back pain with left-sided sciatica - ICD9: 724.2, 724.3, ICD10: M54.42 - Ice for localized tenderness -Continue prednisone and muscle relaxer as prescribed. Patient still has 4 days left of prednisone. - XR LUMBAR GENERAL 3V AP/LAT/L5-S1-no acute findings. Hardware appears intact. -Consult to spine placed. Patient will call to schedule his own appointment because he would like to see somebody in [place]. - [facility] - ESTABLISH WITH PRIMARY CARE - NEW PATIENT Diagnosis and treatment plan were discussed and questions were answered to the patient's satisfaction. Pt acknowledged understanding of concepts and follow up plan. Specific signs and symptoms that would indicate the need for higher level of care were discussed in detail warranting prompt ER evaluation. KIRSTEN Rowland documented in this encounter [facility] 03-05-2023 Note HNO ID: [id number] Author: Praneeth Nolasco APRN.[employer] Service: ? Author Type: Nurse Practitioner Type: Progress Notes Filed: 03/05/2023 9:48 AM Note Text: Subjective HPI HPI Eunice Vargas is a 37 year old male who presents today for CC of left back pain, into left leg. This started 3 days ago. Has tried otc medication for relief. Symptoms are worsened by rom of back. Risk factors hx of disc herniation with surgery. Denies injury to cause current pain. 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 Le COLONSCOPY SCREENING HIGH RISK 05/25/2021 DENTAL SURGERY PROCEDURE wisdom teeth LAPAROSCOPIC HEMICOLECTOMY 11/10/2021 Dr. Le LUMBAR SPINE FUSN,POST TECH 2019 lumbar spine fusion PAST SURGICAL HISTORY OF Right 12/05/2021 VENTRAL HERNIA REPAIR - General, scar excision,OPEN COMPLETION COLECTOMY, WITH EXTENSIVE LYSIS OF ADHESIONS over 60 minutes, diverting loop ileostomy PAST SURGICAL HISTORY OF 05/2021 right hemicolectomy PEG INSERTION_*FL 05/30/2021 PEG tube placed ALLERGIES Adhesive MEDICATIONS MULTIVITAMIN ORAL Take 1 tablet by mouth once daily. ondansetron orally disintegrating (ZOFRAN ODT) 4 mg disintegrating tablet Take 1 tablet by mouth every 8 hours as needed for nausea/vomiting. (Patient not taking: No sig reported) loperamide (IMODIUM) 2 mg cap(s) Take 1 capsule by mouth three times daily. (Patient not taking: No sig reported) Miscellaneous Medical Supply Ileostomy supplies: - 1 Box Coloplast One piece Assura drainable pouch OR - 2 boxes Coloplast [place] red flat wafer # 26220 - 1 box Coloplast [place] red drainable pouches # 50933 - 1 box Ryan small barrier rings # 7805 - 1 tube stomahesive paste # 2650 - 1 box Coloplast Elastic barrier strips # [id number] - 1 bottle stomahesive powder # 07825 - 1 box adhesive remover wipes - 1 box skin barrier prep wipes # (Patient not taking: Reported on 12/11/2022) FAMILY HISTORY Problem Relation Age of Onset None Mother Diabetes Father Multiple Sclerosis Maternal Grandmother other (Other macular degeneration) Maternal Grandfather Social History Tobacco Use Smoking status: Never Smokeless tobacco: Never Tobacco comments: cigar 2 - 3 x yearly Vaping Use Vaping Use: Never used Substance Use Topics Alcohol use: Yes Comment: 2-3x/week Drug use: Never Review of Systems Constitutional: Negative for chills, fever and weight loss. Cardiovascular: Negative for leg swelling. Gastrointestinal: Negative for abdominal pain, constipation, diarrhea, nausea and vomiting. Genitourinary: Negative for dysuria, flank pain, frequency, hematuria and urgency. Musculoskeletal: Positive for back pain. Skin: Negative for rash. Neurological: Negative for sensory change and focal weakness. Objective Physical Exam Constitutional: General: He is not in acute distress. Appearance: Normal appearance. He is not diaphoretic. Cardiovascular: Pulses: Dorsalis pedis pulses are 2+ on the right side and 2+ on the left side. Posterior tibial pulses are 2+ on the right side and 2+ on the left side. Abdominal: General: Bowel sounds are normal. Palpations: Abdomen is soft. Tenderness: There is no abdominal tenderness. Musculoskeletal: Lumbar back: No spasms. Decreased range of motion. Negative right straight leg raise test (modified) and negative left straight leg raise test (modified). Comments: Lumbar paraspinal muscles tender with palpation Neurological: Mental Status: He is alert and oriented to person, place, and time. Gait: Gait is intact. Gait normal. Deep Tendon Reflexes: Reflex Scores: Patellar reflexes are 2+ on the right side and 2+ on the left side. ASSESSMENT/PLAN: 1. Left sided sciatica - ICD9: 724.3, ICD10: M54.32 Steroids/flexeril ordered Home pt provided F/u with pcp if s/s persist/worsen/change Urgent f/u for red flag symptoms - PREDNISONE 10 MG TABLET - CYCLOBENZAPRINE 10 MG TABLET Praneeth Nolasco APRN.[facility] 01-29-2023 Note HNO ID: [id number] Author: Ignacio Thompson PA-C Service: ? Author Type: Physician Kelp Cutter Type: Progress Notes Filed: 01/29/2023 11:21 AM Note Text: This note was created using Tappxriter. Subjective Eunice Vargas is a 37 year old male. HPI Patient presents with a chief complaint of cough over the past 4 days. His daughters were sick with URIs last week. He did also have a sigmoidoscopy on January 21. He states about 3 days after this is when he started to cough. Denies a runny nose. No sore throat. He has had some fatigue. He did feel little short of breath a couple days ago but has not had that since. His cough is productive. No ear pain. No OTC meds used. Review of Systems Constitutional: Positive for fatigue. Negative for chills and fever. HENT: Negative for congestion, ear pain and sore throat. Respiratory: Positive for cough and shortness of breath. Negative for chest tightness and wheezing. Cardiovascular: Negative. Gastrointestinal: Negative. Genitourinary: Negative. Musculoskeletal: Negative. All other systems reviewed and are negative. 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 (Patient not taking: No sig reported) 12 tablet 0 loperamide (IMODIUM) 2 mg cap(s) Take 1 capsule by mouth three times daily. (Patient not taking: No sig reported) 120 capsule 2 Miscellaneous Medical Supply Ileostomy supplies: - 1 Box Coloplast One piece Assura drainable pouch OR - 2 boxes Coloplast [place] red flat wafer # 33782 - 1 box Coloplast [place] red drainable pouches # 41640 - 1 box Ryan small barrier rings # 7805 - 1 tube stomahesive paste # 2650 - 1 box Coloplast Elastic barrier strips # 122763 - 1 bottle stomahesive powder # 82411 - 1 box adhesive remover wipes - 1 box skin barrier prep wipes # (Patient not taking: Reported on 12/11/2022) 1 Each 3 MULTIVITAMIN ORAL Take 1 tablet by mouth once daily. No current facility-administered medications for this visit. PAST SURGICAL HISTORY Procedure Laterality Date APPENDECTOMY 05/14/2021 w/ 2/ of colon removed at same time CLOSURE ENTEROSTOMY LG/SMALL INTESTINE 11/26/2022 Dr. Le COLONSCOPY SCREENING HIGH RISK 05/25/2021 DENTAL SURGERY PROCEDURE wisdom teeth LAPAROSCOPIC HEMICOLECTOMY 11/10/2021 Dr. Le LUMBAR SPINE FUSN,POST TECH 2019 lumbar spine fusion PAST SURGICAL HISTORY OF Right 12/05/2021 VENTRAL HERNIA REPAIR - General, scar excision,OPEN COMPLETION COLECTOMY, WITH EXTENSIVE LYSIS OF ADHESIONS over 60 minutes, diverting loop ileostomy PAST SURGICAL HISTORY OF 05/2021 right hemicolectomy PEG INSERTION_*FL 05/30/2021 PEG tube placed FAMILY HISTORY Problem Relation Age of Onset None Mother Diabetes Father Multiple Sclerosis Maternal Grandmother other (Other macular degeneration) Maternal Grandfather Social History Tobacco Use Smoking status: Never Smokeless tobacco: Never Tobacco comments: cigar 2 - 3 x yearly Vaping Use Vaping Use: Never used Substance Use Topics Alcohol use: Yes Comment: 2-3x/week Drug use: Never Objective BP 124/86 Pulse 86 Temp 36.2 ?C (97.2 ?F) Resp 18 Wt 76.1 kg (167 lb 12.8 oz) SpO2 97% BMI 27.08 kg/m? Physical Exam Vitals reviewed. Constitutional: Appearance: Normal appearance. HENT: Head: Normocephalic and atraumatic. Right Ear: Tympanic membrane, ear canal and external ear normal. Left Ear: Tympanic membrane, ear canal and external ear normal. Nose: Nose normal. Mouth/Throat: Mouth: Mucous membranes are moist. Pharynx: Oropharynx is clear. Cardiovascular: Rate and Rhythm: Normal rate and regular rhythm. Heart sounds: Normal heart sounds. Pulmonary: Effort: Pulmonary effort is normal. Breath sounds: Normal breath sounds. Musculoskeletal: Cervical back: Neck supple. Skin: General: Skin is warm and dry. Findings: No rash. Neurological: Mental Status: He is alert. Assessment and Plan ASSESSMENT/PLAN: 1. URI, acute - ICD9: 465.9, ICD10: J06.9 - Discussed viral etiology and rationale for treatment. - Symptomatic treatment with prn analgesia - Supportive care with fluids and rest - The patient may also use OTC cough and cold meds as needed. - Follow up in one week if symptoms persist or sooner if worsening of symptoms -Chest x-ray clear. - XR CHEST 2V FRONTAL/LAT Ignacio Thompson PA-C [facility] 01-29-2023 Note HNO ID: [id number] Author: RT Cyril(R) Service: Nuclear Medicine Author Type: Technologist Type: Progress Notes Filed: 01/29/2023 11:00 AM Note Text: Radiology Service Progress Note PATIENT NAME: Eunice Vargas DATE OF SERVICE: January 29, 2023 TIME: 10:55 AM PATIENT IDENTITY VERIFICATION COMPLETED USING TWO (2) IDENTIFIERS: Name and Date of confirmed by patient verbally. FALL SCREENING: Has the patient had 2 falls in the last year or 1 fall with injury or currently using an Ambulatory Assistive Device (Walker, Cane, Wheelchair, Crutches, etc.)? No PATIENT GENDER DATA: Male PATIENT RELEVANT IMPLANT DATA REVIEWED: Not Applicable RADIOLOGY DEPARTMENT: General X-ray: Exam(s) Completed: Chest X-Ray PERIPHERAL IV DATA: Not applicable SIGNED BY: Sanna Troy, RT(R) January 29, 2023 10:[address] [facility] 12-11-2022 Note HNO ID: [id number] Author: Collin Le MD Service: ? Author Type: Physician Type: Progress Notes Filed: 12/11/2022 10:10 AM Note Text: Collin Le M.D. Colon AND Rectal Surgery [address] [facility], [address] [place] [address] SUBJECTIVE Eunice Vargas is a 36 year old White male status post ileostomy reversal HPI He is feeling well, has been slowly advancing to more complex soups like chicken noodle soup and picking at some more solid foods without any difficulty. He still is having stools that are fairly watery especially in the morning and become thicker through the day. He is not on any bowel regimen or fiber currently. He denies any abdominal pain most of the time but does have occasional brief sharp pains close to the ileostomy site. His wound continues to slowly heal. Review of Systems Constitutional: Negative for chills, fever and weight loss. HENT: Negative for congestion, ear pain, hearing loss, sinus pain and sore throat. Eyes: Negative for blurred vision, double vision and pain. Respiratory: Negative for cough, shortness of breath and wheezing. Cardiovascular: Negative for chest pain, palpitations and leg swelling. Gastrointestinal: Negative for abdominal pain, constipation, diarrhea, heartburn, nausea and vomiting. Genitourinary: Negative for dysuria, frequency and urgency. Musculoskeletal: Negative for back pain, joint pain and neck pain. Skin: Negative for itching and rash. Neurological: Negative for dizziness, weakness and headaches. Endo/Heme/Allergies: Negative. Negative for environmental allergies. Does not bruise/bleed easily. Psychiatric/Behavioral: Negative for depression and memory loss. The patient is not nervous/anxious and does not have insomnia. 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 Le COLONSCOPY SCREENING HIGH RISK 05/25/2021 DENTAL SURGERY PROCEDURE wisdom teeth LAPAROSCOPIC HEMICOLECTOMY 11/10/2021 Dr. Le LUMBAR SPINE FUSN,POST TECH 2019 lumbar spine fusion PAST SURGICAL HISTORY OF Right 12/05/2021 VENTRAL HERNIA REPAIR - General, scar excision,OPEN COMPLETION COLECTOMY, WITH EXTENSIVE LYSIS OF ADHESIONS over 60 minutes, diverting loop ileostomy PAST SURGICAL HISTORY OF 05/2021 right hemicolectomy PEG INSERTION_*FL 05/30/2021 PEG tube placed Social History Tobacco Use Smoking status: Never Smokeless tobacco: Never Tobacco comments: cigar 2 - 3 x yearly Vaping Use Vaping Use: Never used Substance Use Topics Alcohol use: Yes Comment: 2-3x/week Drug use: Never FAMILY HISTORY Problem Relation Age of Onset None Mother Diabetes Father Multiple Sclerosis Maternal Grandmother other (Other macular degeneration) Maternal Grandfather The ROS, medical, surgical, family, and social history were reviewed by Collin Le MD ALLERGIES Allergen Reactions Adhesive Other: See Comments Large blisters Current Outpatient Medications Medication Sig MULTIVITAMIN ORAL Take 1 tablet by mouth once daily. ondansetron orally disintegrating (ZOFRAN ODT) 4 mg disintegrating tablet Take 1 tablet by mouth every 8 hours as needed for nausea/vomiting. (Patient not taking: Reported on 12/11/2022) loperamide (IMODIUM) 2 mg cap(s) Take 1 capsule by mouth three times daily. (Patient not taking: Reported on 12/11/2022) Miscellaneous Medical Supply Ileostomy supplies: - 1 Box Coloplast One piece Assura drainable pouch OR - 2 boxes Coloplast [place] red flat wafer # 07543 - 1 box Coloplast [place] red drainable pouches # 60495 - 1 box [place] small barrier rings # 7805 - 1 tube stomahesive paste # 2650 - 1 box Coloplast Elastic barrier strips # 288464 - 1 bottle stomahesive powder # 93125 - 1 box adhesive remover wipes - 1 box skin barrier prep wipes # (Patient not taking: Reported on 12/11/2022) No current facility-administered medications for this visit. OBJECTIVE BP 123/81 (BP Site: Left Arm, BP Position: Sitting, BP Cuff Size: Regular Adult) Pulse 69 Ht 167.6 cm (5' 6 ) Wt 71.7 kg (158 lb) BMI 25.50 kg/m? BMI 25.50 kg/(m2) Physical Exam Constitutional: General: He is not in acute distress. Appearance: Normal appearance. He is not ill-appearing. Abdominal: General: There is no distension. Palpations: Abdomen is soft. Tenderness: There is no abdominal tenderness. Comments: Well-healing prior ileostomy site Neurological: Mental Status: He is alert and oriented to person, place, and time. Psychiatric: Mood and Affect: Mood and affect no (more content not included)... [facility] 12-11-2022 History of Presen t illness Narrative Collin Le M.D. Colon & Rectal Surgery [address] [facility], [address] [place] [address] SUBJECTIVE Eunice Vargas is a 36 year old White male status post ileostomy reversal HPI He is feeling well, has been slowly advancing to more complex soups like chicken noodle soup and picking at some more solid foods without any difficulty. He still is having stools that are fairly watery especially in the morning and become thicker through the day. He is not on any bowel regimen or fiber currently. He denies any abdominal pain most of the time but does have occasional brief sharp pains close to the ileostomy site. His wound continues to slowly heal. Review of Systems Constitutional: Negative for chills, fever and weight loss. HENT: Negative for congestion, ear pain, hearing loss, sinus pain and sore throat. Eyes: Negative for blurred vision, double vision and pain. Respiratory: Negative for cough, shortness of breath and wheezing. Cardiovascular: Negative for chest pain, palpitations and leg swelling. Gastrointestinal: Negative for abdominal pain, constipation, diarrhea, heartburn, nausea and vomiting. Genitourinary: Negative for dysuria, frequency and urgency. Musculoskeletal: Negative for back pain, joint pain and neck pain. Skin: Negative for itching and rash. Neurological: Negative for dizziness, weakness and headaches. Endo/Heme/Allergies: Negative. Negative for environmental allergies. Does not bruise/bleed easily. Psychiatric/Behavioral: Negative for depression and memory loss. The patient is not nervous/anxious and does not have insomnia. 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 Le COLONSCOPY SCREENING HIGH RISK 05/25/2021 DENTAL SURGERY PROCEDURE wisdom teeth LAPAROSCOPIC HEMICOLECTOMY 11/10/2021 Dr. Le LUMBAR SPINE FUSN,POST TECH 2019 lumbar spine fusion PAST SURGICAL HISTORY OF Right 12/05/2021 VENTRAL HERNIA REPAIR - General, scar excision,OPEN COMPLETION COLECTOMY, WITH EXTENSIVE LYSIS OF ADHESIONS over 60 minutes, diverting loop ileostomy PAST SURGICAL HISTORY OF 05/2021 right hemicolectomy PEG INSERTION_*FL 05/30/2021 PEG tube placed Social History Tobacco Use Smoking status: Never Smokeless tobacco: Never Tobacco comments: cigar 2 - 3 x yearly Vaping Use Vaping Use: Never used Substance Use Topics Alcohol use: Yes Comment: 2-3x/week Drug use: Never FAMILY HISTORY Problem Relation Age of Onset None Mother Diabetes Father Multiple Sclerosis Maternal Grandmother other (Other macular degeneration) Maternal Grandfather The ROS, medical, surgical, family, and social history were reviewed by Collin Le MD ALLERGIES Allergen Reactions Adhesive Other: See Comments Large blisters Current Outpatient Medications Medication Sig MULTIVITAMIN ORAL Take 1 tablet by mouth once daily. ondansetron orally disintegrating (ZOFRAN ODT) 4 mg disintegrating tablet Take 1 tablet by mouth every 8 hours as needed for nausea/vomiting. (Patient not taking: Reported on 12/11/2022) loperamide (IMODIUM) 2 mg cap(s) Take 1 capsule by mouth three times daily. (Patient not taking: Reported on 12/11/2022) Miscellaneous Medical Supply Ileostomy supplies: - 1 Box Coloplast One piece Assura drainable pouch OR - 2 boxes Coloplast [place] red flat wafer # [id number] - 1 box Coloplast [place] red drainable pouches # 87636 - 1 box [place] small barrier rings # 7805 - 1 tube stomahesive paste # 2650 - 1 box Coloplast Elastic barrier strips # [id number] - 1 bottle stomahesive powder # 63539 - 1 box adhesive remover wipes - 1 box skin barrier prep wipes # (Patient not taking: Reported on 12/11/2022) No current facility-administered medications for this visit. OBJECTIVE BP 123/81 (BP Site: Left Arm, BP Position: Sitting, BP Cuff Size: Regular Adult) Pulse 69 Ht 167.6 cm (5' 6 ) Wt 71.7 kg (158 lb) BMI 25.50 kg/m BMI 25.50 kg/(m^2) Physical Exam Constitutional: General: He is not in acute distress. Appearance: Normal appearance. He is not ill-appearing. Abdominal: General: There is no distension. Palpations: Abdomen is soft. Tenderness: There is no abdominal tenderness. Comments: Well-healing prior ileostomy site Neurological: Mental Status: He is alert and oriented to person, place, and time. Psychiatric: Mood and Affect: Mood and affect normal. Judgment: Judgment normal. Hemoglobin (g/dL) Date Value 12/03/2022 13.5 HGB (g/dL) Date Value 07/06/2019 15.5 Hematocrit (%) Date Value 12/03/2022 39.2 07/06/2019 45.3 WBC Date Value 12/03/2022 7.17 k/uL 07/06/2019 5.91 thou/cmm Platelet Count Date Value 12/03/2022 317 k/uL 07/06/2019 315 thou/cmm Creatinine Date Value Ref Range Status 12/03/2022 0.75 0.73 - 1.22 mg/dL Final AST Date Value Ref Range Status 04/03/2022 23 14 - 40 U/L Final ALT Date Value Ref Range Status 04/03/2022 21 10 - 54 U/L Final Bilirubin, Total (mg/dL) Date Value 04/03/2022 0.7 Antibody Screen (no units) Date Value 11/28/2021 Negative WBC (k/uL) Date Value 12/03/2022 7.17 RBC (m/uL) Date Value 12/03/2022 4.58 %DIG,%DBS Plan ASSESSMENT/PLAN: 1. Colonic inertia - ICD9: 564.89, ICD10: K59.9 He is feeling well, but I did discuss with him staying on a GI soft diet while I reach out to Dr. Dimas. I am concerned there still may be some stricturing present which is causing his ongoing bowel irregularity and I think this should be evaluated in a couple of weeks after he has had some healing time. Follow up: Return for For any new issues or concerns. Collin Le M.D. Please Note: This office note has been created using Bucky Box, a speech recognition software program, and may contain errors including punctuation, grammar, spelling, gender, and inappropriate words or phrases that pertain to the sytem. documented in this encounter [facility] 12-06-2022 Note HNO ID: [id number] Author: RT Shorty(R) Service: Radiology Author Type: Technologist Type: Progress Notes Filed: 12/06/2022 8:14 AM Note Text: Radiology Service Progress Note PATIENT NAME: Eunice Vargas DATE OF SERVICE: December 06, 2022 TIME: 8:03 AM PATIENT IDENTITY VERIFICATION COMPLETED USING TWO (2) IDENTIFIERS: Name and Date of confirmed by patient verbally. FALL SCREENING: Has the patient had 2 falls in the last year or 1 fall with injury or currently using an Ambulatory Assistive Device (Walker, Cane, Wheelchair, Crutches, etc.)? No PATIENT GENDER DATA: Male PATIENT RELEVANT IMPLANT DATA REVIEWED: Yes RADIOLOGY DEPARTMENT: General X-ray: Exam(s) Completed: Abdomen X-Ray: Abdomen with Obliques PERIPHERAL IV DATA: Not applicable SIGNED BY: RT Shorty(R) December 06, 2022 8:[address] [facility] 12-03-2022 Note HNO ID: [id number] Author: Jacque Aranda RN Service: Care Management Author Type: Registered Nurse Type: Care Mgt Progress Note Filed: 12/03/2022 11:52 AM Note Text: CARE MANAGEMENT DISCHARGE NOTE SERVICE DATE: December 03, 2022 SERVICE TIME: 1150 Admission Date: 11/26/2022 LOS: 7 days Discharge Arrangement Services Arranged Provider Name: Dr. Pelayo Caregiver Assessment Transportation Arrangements Handoff Communication: Additional Information: Plan is for discharge home today. Discharge Information Row Name Admission (Current) from 11/26/2022 in [facility] ORTHOPEDIC Medical Follow-Up Appointment Specialty surgery Provider Name Collin le Additional Instructions call for appointment in 1 week SIGNATURE: Jacque Aranda RN PATIENT NAME: Eunice Vargas DATE: December 03, 2022 TIME: 11:50 AM CONTACT #: [phone] [facility] 12-03-2022 Note HNO ID: [id number] Author: Brenda Manzo DO Service: General Surgery Author Type: Resident Type: Progress Notes Filed: 12/03/2022 7:13 AM Note Text: Attestation signed by Collin Le MD at 12/03/2022 10:57 AM He seems to be doing well with full liquids and we will keep him on fulls for the time being. I discussed with him going home on this and we will work on changing him over over the next week or so depending on some imaging done on Friday. I personally saw and examined the patient on 12/03/2022. I reviewed the resident?s note. I agree with the resident?s assessment and plan unless otherwise noted Collin Le MD 10:56 AM 12/03/22 Please Note: This office note has been created using Bucky Box, a speech recognition software program, and may contain errors including punctuation, grammar, spelling, gender, and inappropriate words or phrases that pertain to the sytem. Resident Supervision of Medical Student I personally saw and examined the patient. I reviewed the medical student's note. I agree with the medical student's assessment and plan unless otherwise noted below. Patient doing well. Tolerating liquids yesterday. Has been having gas and liquid BM. Will advance to GIS today. Signature: Brenda Manzo DO Date: 12/03/2022 Time: 7:12 AM MEDICAL STUDENT Elective General Surgery (Green Surgery) Progress Note This note was generated by a medical student working under the supervision of a resident and attending physician. When co-signed, the physical exam findings, assessment, and plan as written below are are considered accurate. SERVICE DATE: 12/03/2022 Elective General Surgery (Green Surgery) Service Pager: For questions or concerns Mon-Fri 6a-5p please page [phone]. After 5pm and on Weekends and Holidays, please page [phone] if in ICU or [phone] if on RNF. SUBJECTIVE: NAEO.He has been able to tolerate liquids without nausea. Denies fevers, chills, CP, SOB, headache, cough, muscle weakness, numbness, urinary difficulty, or any other complaints this AM. Tolerating diet DIET LIQUID Nausea No Emesis No Flatus Yes Bowel movement Yes Pain Controlled Yes Ambulating Yes OBJECTIVE: Vitals: Temp (24hrs), Av.8 ?C (98.2 ?F), Min:36.7 ?C (98.1 ?F), Max:36.8 ?C (98.2 ?F) BP 122/88 Pulse 84 Temp 36.7 ?C (98.1 ?F) (Oral) Resp 16 Ht 167.6 cm (5' 6 ) Wt 72.6 kg (160 lb) SpO2 98% BMI 25.82 kg/m? O2 Therapy: Room Air IANDO: Date 12/02/22699 - 12/03/2259 12/03/22699 - 12/04/22 0659 Shift 3345-0006 4965-5132 5897-3818 24 Hour Total 5453-8187 5201-7343 9079-7064 24 Hour Total INTAKE PO 720 720 PO 480 480 Supplements (mL) 240 240 Shift Total 720 720 OUTPUT Urine Urine Not Saved. 1 x 1 x Shift Total Weight (kg) 72.6 72.6 72.6 72.6 72.6 72.6 72.6 72.6 MEDICATIONS Current Facility-Administered Medications Medication Dose Route Frequency metoclopramide HCl 10 mg injection (REGLAN) 10 mg INTRAVENOUS QID lactated ringers iv infusion 50 mL/hr INTRAVENOUS CONTINUOUS LORazepam 1 mg injection (ATIVAN) 1 mg INTRAVENOUS q 6 H PRN prochlorperazine 5 mg injection (COMPAZINE) 5 mg INTRAVENOUS q [address] 40 mg tab(s) (PROTONIX) 40 mg ORAL DAILY (6 AM) magnesium oxide 400 mg tab(s) (MAG-OX) 400 mg ORAL DAILY ondansetron (PF) 4 mg injection (ZOFRAN) 4 mg INTRAVENOUS q 4 H PRN acetaminophen 975 mg tab(s) (TYLENOL) 975 mg ORAL q 6 H traMADol 50-100 mg tab(s) (ULTRAM) 50-100 mg ORAL q 6 H PRN enoxaparin 40 mg injection (LOVENOX) 40 mg SUBCUTANEOUS q 24 HR NaCl 0.9% iv flush bag 20 mL INTRAVENOUS PRN Labs: Recent Labs 12/03/22 0459 12/02/22 0504 12/01/22 0250 NA -- 135* 132* K -- 4.0 4.3 CHLOR -- 100 96* CO2 -- 22 22 BUN -- 17 27* CREAT -- 0.86 0.95 GLUC -- 76 96 ANION -- 13 14 CA -- 8.7 9.0 WBC 7.17 5.92 5.80 HB 13.5 13.2 15.1 HCT 39.2 39.0 44.2 PLT 317 299 289 Exam: GENERAL: resting comfortably, in no acute distress HEENT: normocephalic, atraumatic, EOMI NECK: trachea midline, no JVD LUNGS: Unlabored breathing, equal chest rise bilaterally CARDIAC: Regular rate and rhythm as above ABDOMEN: Soft, non-tender, minimally tender, non-distended, no masses or organomegaly EXTREMITIES: GALINDO, No deformities, No edema SKIN: Skin color, texture, turgor normal, No rashes or lesions NEURO: AANDOx3, CN II-XII grossly intact PSYCH: normal mood and affect ASSESSMENT AND PLAN: Active Hospital Problems Diagnosis Date Noted Ileostomy present (HCC) 11/26/2022 Assessment: 36 year old male with colon inertia s/p ileostomy reversal, complicated by postoperative ileus and CAITIE. Hospital Course: 11/26/2022 Procedure(s): CLOSURE ILEOSTOMY Plan: - Diet: advance to soft GI as tolerated - Pain and Naus (more content not included)... [facility] 12-02-2022 Note HNO ID: [id number] Author: Jacque Aranda RN Service: Care Management Author Type: Registered Nurse Type: Care Mgt Progress Note Filed: 12/02/2022 11:57 AM Note Text: CARE MANAGEMENT PROGRESS NOTE SERVICE DATE: 12/02/2022 SERVICE TIME: 1155 LOS: 6 days Chart reviewed. Plan is to advance diet as tolerated. Discharge plan is home once medically stable and tolerating diet. No transitional needs anticipated. SIGNATURE: Jacque Aranda RN PATIENT NAME: Eunice Vargas DATE: December 02, 2022 TIME: 11:55 AM PAGER/CONTACT #: [phone] [facility] 12-02-2022 Note HNO ID: [id number] Author: Nicolas Thornton DO Service: General Surgery Author Type: Resident Type: Progress Notes Filed: 12/02/2022 6:47 AM Note Text: Attestation signed by Collin Le MD at 12/03/2022 10:49 AM Still having bowel function, watery, still seems to have some poor coordination of his bowel function and I am worried he would not do well with a more formed diet, but for the time being he is doing well on full liquids and we will wait with this diet for short period of time and have some follow-up imaging as an outpatient. I personally saw and examined the patient on 12/03/2022. I reviewed the resident?s note. I agree with the resident?s assessment and plan unless otherwise noted Collin Le MD 10:48 AM 12/03/22 Please Note: This office note has been created using Bucky Box, a speech recognition software program, and may contain errors including punctuation, grammar, spelling, gender, and inappropriate words or phrases that pertain to the sytem. Resident Supervision of Medical Student I personally saw and examined the patient. I reviewed the medical student's note. I agree with the medical student's assessment and plan unless otherwise noted below. - agree with below - having bowel function, abdomen soft and minimally tender - ADAT, DC IVF when kourtney PO - anticipate discharge soon - plan of care discussed with patient, resident team and attending Dr Le Signature: Nicolas Thornton DO PGY-5 Date: 12/02/2022 Time: 6:45 AM MEDICAL STUDENT Elective General Surgery (Green Surgery) Progress Note This note was generated by a medical student working under the supervision of a resident and attending physician. When co-signed, the physical exam findings, assessment, and plan as written below are are considered accurate. SERVICE DATE: 12/02/2022 Elective General Surgery (Green Surgery) Service Pager: For questions or concerns Mon-Fri 6a-5p please page [phone]. After 5pm and on Weekends and Holidays, please page [phone] if in ICU or [phone] if on RNF. SUBJECTIVE: NAEO. Patient states his nausea has improved. He states that he did not try liquids yesterday and is willing to trial today. He reports daily watery bowel movements. Denies fevers, chills, CP, SOB, headache, cough, muscle weakness, numbness, urinary difficulty, or any other complaints this AM. Tolerating diet DIET LIQUID Nausea No Emesis No Flatus Yes Bowel movement Yes Pain Controlled Yes Ambulating Yes OBJECTIVE: Vitals: Temp (24hrs), Av.7 ?C (98.1 ?F), Min:36.6 ?C (97.9 ?F), Max:36.8 ?C (98.2 ?F) BP 125/82 Pulse 83 Temp 36.8 ?C (98.2 ?F) (Oral) Resp 16 Ht 167.6 cm (5' 6 ) Wt 72.6 kg (160 lb) SpO2 96% BMI 25.82 kg/m? O2 Therapy: Room Air IANDO: Date 12/01/22699 - 12/02/2265812/02/22699 - 12/03/22 0659 Shift 8196-2240 8796-9149 0192-2521 24 Hour Total 3442-7055 7280-3322 5347-4131 24 Hour Total INTAKE PO 240 60 300 PO 240 60 300 IV 1000 1000 Volume (mL) (lactated ringers iv infusion) 1000 1000 Shift Total 1000 736 99 4567 OUTPUT Urine Urine Not Saved. 1 x 2 x 1 x 4 x # of BMs Number of BMs 1 x 1 x 2 x Shift Total Weight (kg) 72.6 72.6 72.6 72.6 72.6 72.6 72.6 72.6 MEDICATIONS Current Facility-Administered Medications Medication Dose Route Frequency metoclopramide HCl 10 mg injection (REGLAN) 10 mg INTRAVENOUS QID lactated ringers iv infusion 50 mL/hr INTRAVENOUS CONTINUOUS LORazepam 1 mg injection (ATIVAN) 1 mg INTRAVENOUS q 6 H PRN prochlorperazine 5 mg injection (COMPAZINE) 5 mg INTRAVENOUS q [address] 40 mg tab(s) (PROTONIX) 40 mg ORAL DAILY (6 AM) magnesium oxide 400 mg tab(s) (MAG-OX) 400 mg ORAL DAILY ondansetron (PF) 4 mg injection (ZOFRAN) 4 mg INTRAVENOUS q 4 H PRN acetaminophen 975 mg tab(s) (TYLENOL) 975 mg ORAL q 6 H traMADol 50-100 mg tab(s) (ULTRAM) 50-100 mg ORAL q 6 H PRN enoxaparin 40 mg injection (LOVENOX) 40 mg SUBCUTANEOUS q 24 HR NaCl 0.9% iv flush bag 20 mL INTRAVENOUS PRN Labs: Recent Labs 12/02/22 0504 12/01/22 0250 NA 135* 132* K 4.0 4.3 CHLOR 100 96* CO2 22 22 BUN 17 27* CREAT 0.86 0.95 GLUC 76 96 ANION 13 14 CA 8.7 9.0 WBC 5.92 5.80 HB 13.2 15.1 HCT 39.0 44.2 PLT 299 289 Exam: GENERAL: resting comfortably, in no acute distress HEENT: normocephalic, atraumatic, EOMI NECK: trachea midline, no JVD LUNGS: Unlabored breathing, equal chest rise bilaterally CARDIAC: Regular rate and rhythm as above ABDOMEN: Soft, non-tender, some distension, no masses or organomegaly, former R sided ostomy site covered with gauze and tape EXTREMITIES: GALINDO, No deformities, No edema SKIN: Skin color, texture, turgor normal, No rashes or lesions NEURO: AANDOx3, CN II-XII vanesa (more content not included)... [facility] 12-01-2022 Note HNO ID: [id number] Author: Nicolas Thornton DO Service: General Surgery Author Type: Resident Type: Progress Notes Filed: 12/01/2022 7:14 AM Note Text: Attestation signed by Raul Lovell MD at 12/01/2022 10:01 AM Attending Note I personally saw and examined the patient. I reviewed the resident's note. I agree with the resident's assessment and plan with the following revisions and/or additions: Seen on 12/01/22 Plan of care discussed with: Provider, RN, Patient. Signature: Raul Lovell MD Date: 12/01/2022 Time: 10:01 AM Elective General Surgery (Green Surgery) Progress Note SERVICE DATE: December 01, 2022 Elective General Surgery (Green Surgery) Service Pager: For questions or concerns Mon-Fri 6a-5p please page [phone]. After 5pm and on Weekends and Holidays, please page [phone]. SUBJECTIVE: Made DIET NPO after KUB revealed bowel dilation. Still passing flatus and had diarrhea. Comfortable, willing to trial liquids again today. OBJECTIVE: Vitals: Temp (24hrs), Av.7 ?C (98 ?F), Min:36.5 ?C (97.7 ?F), Max:36.7 ?C (98.1 ?F) BP 123/89 Pulse 93 Temp 36.7 ?C (98.1 ?F) (Oral) Resp 16 Ht 167.6 cm (5' 6 ) Wt 72.6 kg (160 lb) SpO2 94% BMI 25.82 kg/m? O2 Therapy: Room Air IANDO: Date 11/30/22699 - 12/01/22 0659 12/01/22 07 - 12/02/22 0659 Shift 1461-4075 3685-4919 5255-6938 24 Hour Total 9095-0598 5200-3235 9813-5969 24 Hour Total INTAKE IV 1000 1000 2000 Volume (mL) (lactated ringers iv infusion) 1000 1000 2000 Shift Total 1000 1000 2000 OUTPUT Urine Urine Not Saved. 1 x 1 x # of BMs Number of BMs 1 x 1 x Shift Total Weight (kg) 72.6 72.6 72.6 72.6 72.6 72.6 72.6 72.6 MEDICATIONS: Current Facility-Administered Medications Medication Dose Route Frequency lactated ringers iv infusion 125 mL/hr INTRAVENOUS CONTINUOUS LORazepam 1 mg injection (ATIVAN) 1 mg INTRAVENOUS q 6 H PRN prochlorperazine 5 mg injection (COMPAZINE) 5 mg INTRAVENOUS q [address] 40 mg tab(s) (PROTONIX) 40 mg ORAL DAILY (6 AM) magnesium oxide 400 mg tab(s) (MAG-OX) 400 mg ORAL DAILY ondansetron (PF) 4 mg injection (ZOFRAN) 4 mg INTRAVENOUS q 4 H PRN acetaminophen 975 mg tab(s) (TYLENOL) 975 mg ORAL q 6 H traMADol 50-100 mg tab(s) (ULTRAM) 50-100 mg ORAL q 6 H PRN enoxaparin 40 mg injection (LOVENOX) 40 mg SUBCUTANEOUS q 24 HR NaCl 0.9% iv flush bag 20 mL INTRAVENOUS PRN Labs: Recent Labs 12/01/22 0250 11/30/22 0239 NA 132* 132* K 4.3 4.4 CHLOR 96* 95* CO2 22 17* BUN 27* 30* CREAT 0.95 1.25* GLUC 96 117* ANION 14 20* CA 9.0 10.0 WBC 5.80 7.73 HB 15.1 16.5 HCT 44.2 47.8 PLT 289 380 Physical Exam: GENERAL: NAD, pleasant HEENT: normocephalic, atraumatic, EOMI NECK: trachea midline, no JVD LUNGS: Unlabored breathing, equal chest rise bilaterally on room air CARDIAC: Regular rate ABDOMEN: Soft. Slightly improved but persisting distension, former R sided ostomy site covered with gauze and tape. No rebound or guarding. No tympany. EXTREMITIES: GALINDO, No deformities, No edema SKIN: Skin color, texture, turgor normal, No rashes or lesions NEURO: AANDOx3, CN II-XII grossly intact PSYCH: normal mood and affect ASSESSMENT AND PLAN: Assessment Active Hospital Problems Diagnosis Date Noted Ileostomy present (HCC) 11/26/2022 Assessment: 36 year old male with colon inertia s/p ileostomy reversal, complicated by postoperative ileus and CAITIE. Hospital Course/Operations/Procedures: 11/26/2022 Procedure(s): CLOSURE ILEOSTOMY INPATIENT ATTENDING: Dr. Collin Le MD, Elective High-Risk Geriatric Patient Vulnerabilities: Patient is NOT high risk based on evaluation and assessment Plan: - DIET NPO - pain and nausea control - mobilize, IS - CAITIE: improved, continue IVF encourage PO fluid intake - ARBF. Trial CLD today. Awaiting subjective improvement in nausea and more reliable bowel function prior to discharge. No need for NPO/NGT - DVT Ppx: LVX - plan of care discussed with patient, resident team and attending Dr Lovell sales consultant insurance for Dr Le SIGNATURE: Nicolas Thornton DO PATIENT NAME: Eunice Vargas DATE: December 01, 2022 TIME: 7:11 AM Pager: see below Elective General Surgery (Green Surgery) Service Pager: For questions or concerns - please page [phone]. After 5pm and on Weekends and Holidays, please page [phone] if in ICU or [phone] if on RNF. [facility] 11-30-2022 Note HNO ID: [id number] Author: Nicolas Thornton DO Service: General Surgery Author Type: Resident Type: Progress Notes Filed: 11/30/2022 7:37 AM Note Text: Attestation signed by Raul Lovell MD at 12/01/2022 10:01 AM Attending Note I personally saw and examined the patient. I reviewed the resident's note. I agree with the resident's assessment and plan with the following revisions and/or additions: Seen on 11/30/22 Plan of care discussed with: Provider, RN, Patient. Signature: Raul Lovell MD Date: 12/01/2022 Time: 10:00 AM Elective General Surgery (Green Surgery) Progress Note SERVICE DATE: November 30, 2022 Elective General Surgery (Green Surgery) Service Pager: For questions or concerns - please page [phone]. After 5pm and on Weekends and Holidays, please page [phone]. SUBJECTIVE: Some nausea but controlled with zofran. Admits to distension, no reliable bowel function yet. DIET GASTRO INTESTINAL OBJECTIVE: Vitals: Temp (24hrs), Av.8 ?C (98.2 ?F), Min:36.6 ?C (97.9 ?F), Max:36.9 ?C (98.4 ?F) BP 122/88 Pulse 115 Temp 36.6 ?C (97.9 ?F) (Oral) Resp 17 Ht 167.6 cm (5' 6 ) Wt 72.6 kg (160 lb) SpO2 94% BMI 25.82 kg/m? O2 Therapy: Room Air IANDO: Date 11/29/22 07 - 11/30/22 0659 11/30/22699 - 12/01/22 0659 Shift 6723-1265 8704-7927 7017-8885 24 Hour Total 5824-0218 2412-1470 4769-9854 24 Hour Total INTAKE PO 480 480 PO 480 480 Shift Total 480 480 OUTPUT Urine Urine Not Saved. 1 x 1 x # of BMs Number of BMs 1 x 1 x Shift Total Weight (kg) 72.6 72.6 72.6 72.6 72.6 72.6 72.6 72.6 MEDICATIONS: Current Facility-Administered Medications Medication Dose Route Frequency lactated ringers iv infusion 50 mL/hr INTRAVENOUS CONTINUOUS LORazepam 1 mg injection (ATIVAN) 1 mg INTRAVENOUS q 6 H PRN prochlorperazine 5 mg injection (COMPAZINE) 5 mg INTRAVENOUS q [address] 40 mg tab(s) (PROTONIX) 40 mg ORAL DAILY (6 AM) magnesium oxide 400 mg tab(s) (MAG-OX) 400 mg ORAL DAILY ondansetron (PF) 4 mg injection (ZOFRAN) 4 mg INTRAVENOUS q 4 H PRN acetaminophen 975 mg tab(s) (TYLENOL) 975 mg ORAL q 6 H traMADol 50-100 mg tab(s) (ULTRAM) 50-100 mg ORAL q 6 H PRN enoxaparin 40 mg injection (LOVENOX) 40 mg SUBCUTANEOUS q 24 HR NaCl 0.9% iv flush bag 20 mL INTRAVENOUS PRN Labs: Recent Labs 11/30/22 0239 11/29/22 0011 NA 132* 135* K 4.4 3.9 CHLOR 95* 97 CO2 17* 25 BUN 30* 13 CREAT 1.25* 0.94 GLUC 117* 113* ANION 20* 13 CA 10.0 9.7 WBC 7.73 7.87 HB 16.5 15.8 HCT 47.8 46.7 PLT 380 278 Physical Exam: GENERAL: NAD, pleasant HEENT: normocephalic, atraumatic, EOMI NECK: trachea midline, no JVD LUNGS: Unlabored breathing, equal chest rise bilaterally on room air CARDIAC: Regular rate ABDOMEN: Soft. Mild distension, former R sided ostomy site covered with gauze and tape. No rebound or guarding. EXTREMITIES: GALINDO, No deformities, No edema SKIN: Skin color, texture, turgor normal, No rashes or lesions NEURO: AANDOx3, CN II-XII grossly intact PSYCH: normal mood and affect ASSESSMENT AND PLAN: Assessment Active Hospital Problems Diagnosis Date Noted Ileostomy present (HCC) 11/26/2022 Assessment: 36 year old male with colon inertia s/p ileostomy reversal, complicated by postoperative ileus and CAITIE. Hospital Course/Operations/Procedures: 11/26/2022 Procedure(s): CLOSURE ILEOSTOMY INPATIENT ATTENDING: Dr. Collin Le MD, Elective High-Risk Geriatric Patient Vulnerabilities: Patient is NOT high risk based on evaluation and assessment Plan: - DIET GASTRO INTESTINAL - pain and nausea control - mobilize IS - CAITIE: IVF resumed, encourage PO fluid intake - ARBF. Awaiting subjective improvement in nausea and more reliable bowel function prior to discharge. No need for NPO/NGT for now. Possibly dc tomorrow. - DVT Ppx: LVX - plan of care discussed with patient, resident team and attending Dr Lovell sales consultant insurance for Dr Le SIGNATURE: Nicolas Thornton DO PATIENT NAME: Eunice Vargas DATE: November 30, 2022 TIME: 6:22 AM Pager: see below Elective General Surgery (Green Surgery) Service Pager: For questions or concerns Mon-Fri 6a-5p please page [phone]. After 5pm and on Weekends and Holidays, please page [phone] if in ICU or [phone] if on RNF. [facility] 11-29-2022 Note HNO ID: [id number] Author: Jacque Aranda RN Service: Care Management Author Type: Registered Nurse Type: Care Mgt Initial Assessment Filed: 11/29/2022 2:24 PM Note Text: CARE MANAGEMENT: ASSESSMENT AND DISCHARGE PLAN SERVICE DATE: November 29, 2022 SERVICE TIME: 0950 PCP: No primary care provider on file. Primary Contact: Extended Emergency Contact Information Primary Emergency Contact: Santa Vargas Address: [address] [place] [address] Mobile Relation: Spouse Secondary Emergency Contact: Marissa Noble Mobile Relation: Mother Admission Status: Inpatient Insurance Provider: PAO NANCE PPO Discharge Planning requested by: Per Department Practice Potential Transition Plans Home Advance Directives Current Advance Directive: Health Care Power of [facility] Psychiatrist In Chart: Yes Up To Date and Valid: Yes Current Living Arrangements and Support Lives with: Spouse/significant other Type of Residence: Private Residence (House) Does the patient have to climb stairs at home?: No Support: Spouse/significant other How do you manage to accomplish the following: Independent: Ambulation;Bathe/Shower;Dress;Me als/Meal Prep;Going to the bathroom;Medication Management;Transportation to appointments/community Current Services/Equipment Current Post-Acute Service(s): None Discharge Planning Patient Goal(s): Be able to go home [place] of Choice Explained: Key[employer] of Choice Given: No Reason Not Given: No placements necessary Are you interested in bedside delivery of your medications? No Discharge Planning Participant(s): Patient Patient/Family Comments: Caregiver Assessment: Caregiver is ready, willing and able to meet the patient's needs as recommended by the inter-professional team: No Caregiver needed Transport at Discharge: Needs Prior to Discharge: Needs Prior to Discharge: None Post-Acute Discharge Plan: Chart reviewed. Independent with care. Plan is home when medically stable. No transitional needs anticipated. SIGNATURE: Jacque Aranda RN PATIENT NAME: Eunice Vargas DATE: November 29, 2022 TIME: 9:11 AM CONTACT #: [phone] [facility] 11-29-2022 Note HNO ID: [id number] Author: Brenda Manzo DO Service: General Surgery Author Type: Resident Type: Progress Notes Filed: 11/29/2022 6:52 AM Note Text: Attestation signed by Collin Le MD at 11/29/2022 3:16 PM Bowels are working pretty slowly still, we will continue to give him some time, bowel movements have been watery. I personally saw and examined the patient on 11/29/2022. I reviewed the resident?s note. I agree with the resident?s assessment and plan unless otherwise noted Collin Le MD 3:15 PM 11/29/22 Please Note: This office note has been created using Bucky Box, a speech recognition software program, and may contain errors including punctuation, grammar, spelling, gender, and inappropriate words or phrases that pertain to the sytem. Elective General Surgery (Green Surgery) Progress Note SERVICE DATE: November 29, 2022 Elective General Surgery (Green Surgery) Service Pager: For questions or concerns Mon-Fri 6a-5p please page [phone]. After 5pm and on Weekends and Holidays, please page [phone]. SUBJECTIVE: Patient reports he feels better today. Less distended. Passing gas and BM. Cautious about going home today. OBJECTIVE: Vitals: Temp (24hrs), Av.8 ?C (98.2 ?F), Min:36.6 ?C (97.9 ?F), Max:36.9 ?C (98.4 ?F) BP 121/82 Pulse 89 Temp 36.6 ?C (97.9 ?F) (Oral) Resp 18 Ht 167.6 cm (5' 6 ) Wt 72.6 kg (160 lb) SpO2 95% BMI 25.82 kg/m? O2 Therapy: Room Air IANDO: Date 11/28/22699 - 11/29/22 0659 11/29/22 07 - 11/30/22 0659 Shift 0554-0833 3335-2851 9128-1687 24 Hour Total 4899-3483 5497-4130 8492-2559 24 Hour Total INTAKE PO 360 600 960 PO 120 360 480 Supplements (mL) 240 240 480 Shift Total 360 600 960 OUTPUT Shift Total Weight (kg) 72.6 72.6 72.6 72.6 72.6 72.6 72.6 72.6 MEDICATIONS: Current Facility-Administered Medications Medication Dose Route Frequency prochlorperazine 5 mg injection (COMPAZINE) 5 mg INTRAVENOUS q [address] 40 mg tab(s) (PROTONIX) 40 mg ORAL DAILY (6 AM) magnesium oxide 400 mg tab(s) (MAG-OX) 400 mg ORAL DAILY ondansetron (PF) 4 mg injection (ZOFRAN) 4 mg INTRAVENOUS q 4 H PRN acetaminophen 975 mg tab(s) (TYLENOL) 975 mg ORAL q 6 H traMADol 50-100 mg tab(s) (ULTRAM) 50-100 mg ORAL q 6 H PRN enoxaparin 40 mg injection (LOVENOX) 40 mg SUBCUTANEOUS q 24 HR NaCl 0.9% iv flush bag 20 mL INTRAVENOUS PRN Labs: Recent Labs 11/29/22 0011 11/28/22 0105 NA 135* 136 K 3.9 3.6* CHLOR 97 99 CO2 25 22 BUN 13 8* CREAT 0.94 0.82 GLUC 113* 117* ANION 13 15 CA 9.7 9.7 WBC 7.87 13.28* HB 15.8 15.7 HCT 46.7 46.3 PLT 278 285 Physical Exam: GENERAL: uncomfortable HEENT: normocephalic, atraumatic, EOMI NECK: trachea midline, no JVD LUNGS: Unlabored breathing, equal chest rise bilaterally on room air CARDIAC: Regular rate ABDOMEN: Soft. Mild distension and approp tendernes to palpation. No rebound or guarding. R sided ostomy site hemostatic EXTREMITIES: GALINDO, No deformities, No edema SKIN: Skin color, texture, turgor normal, No rashes or lesions NEURO: AANDOx3, CN II-XII grossly intact PSYCH: normal mood and affect ASSESSMENT AND PLAN: Assessment Active Hospital Problems Diagnosis Date Noted Ileostomy present ([facility]) 11/26/2022 Assessment: 36 year old male with colon inertia s/p ileostomy reversal. Hospital Course/Operations/Procedures: 11/26/2022 Procedure(s): CLOSURE ILEOSTOMY INPATIENT ATTENDING: Dr. Collin Le MD, Elective High-Risk Geriatric Patient Vulnerabilities: Patient is NOT high risk based on evaluation and assessment Plan: - DIET GASTRO INTESTINAL - monitor bowel function - PRN pain/nausea control. Compazine added for second line - mobilize, IS - PPI - DVT: LVX - hopeful for today vs tomorrow, pending patient comfort - plan of care discussed with patient, resident team and attending: Dr. Le SIGNATURE: Brenda Manzo DO PATIENT NAME: Eunice Vargas DATE: November 29, 2022 TIME: 6:51 AM Pager: see below Elective General Surgery (Green Surgery) Service Pager: For questions or concerns Mon-Fri 6a-5p please page [phone]. After 5pm and on Weekends and Holidays, please page [phone] if in ICU or [phone] if on RNF. [facility] 11-28-2022 Note HNO ID: [id number] Author: Nicolas Thornton DO Service: General Surgery Author Type: Resident Type: Progress Notes Filed: 11/28/2022 7:57 AM Note Text: Attestation signed by Collin Le MD at 11/29/2022 8:25 AM Had some nausea overnight, but this has improved through the day, we will continue monitoring as he has a history of ileus with prior surgeries. I personally saw and examined the patient on 11/28/2022. I reviewed the resident?s note. I agree with the resident?s assessment and plan unless otherwise noted Collin Le MD 8:25 AM 11/29/22 Please Note: This office note has been created using Bucky Box, a speech recognition software program, and may contain errors including punctuation, grammar, spelling, gender, and inappropriate words or phrases that pertain to the sytem. Elective General Surgery (Green Surgery) Progress Note SERVICE DATE: November 28, 2022 Elective General Surgery (Green Surgery) Service Pager: For questions or concerns Mon-Fri 6a-5p please page [phone]. After 5pm and on Weekends and Holidays, please page [phone]. SUBJECTIVE: Admits to increased nausea this morning, dry heaves but no vomiting. DIET GASTRO INTESTINAL OBJECTIVE: Vitals: Temp (24hrs), Av.7 ?C (98.1 ?F), Min:36.6 ?C (97.9 ?F), Max:36.9 ?C (98.4 ?F) BP 139/92 Pulse 113 Temp 36.9 ?C (98.4 ?F) (Oral) Resp 18 Ht 167.6 cm (5' 6 ) Wt 72.6 kg (160 lb) SpO2 95% BMI 25.82 kg/m? O2 Therapy: Room Air IANDO: MEDICATIONS: Current Facility-Administered Medications Medication Dose Route Frequency prochlorperazine 5 mg injection (COMPAZINE) 5 mg INTRAVENOUS q [address] 40 mg tab(s) (PROTONIX) 40 mg ORAL DAILY (6 AM) magnesium oxide 400 mg tab(s) (MAG-OX) 400 mg ORAL DAILY ondansetron (PF) 4 mg injection (ZOFRAN) 4 mg INTRAVENOUS q 4 H PRN acetaminophen 975 mg tab(s) (TYLENOL) 975 mg ORAL q 6 H traMADol 50-100 mg tab(s) (ULTRAM) 50-100 mg ORAL q 6 H PRN enoxaparin 40 mg injection (LOVENOX) 40 mg SUBCUTANEOUS q 24 HR NaCl 0.9% iv flush bag 20 mL INTRAVENOUS PRN Labs: Recent Labs 11/28/22 0105 11/27/22 0452 NA 136 137 K 3.6* 4.0 CHLOR 99 106* CO2 22 21* BUN 8* 8* CREAT 0.82 0.85 GLUC 117* 87 ANION 15 10 CA 9.7 8.2* WBC 13.28* 8.14 HB 15.7 13.1 HCT 46.3 38.7* PLT 285 198 Physical Exam: GENERAL: uncomfortable HEENT: normocephalic, atraumatic, EOMI NECK: trachea midline, no JVD LUNGS: Unlabored breathing, equal chest rise bilaterally on room air CARDIAC: Regular rate ABDOMEN: Soft. Mild distension and tenderness to palpation. No rebound or guarding. R sided ostomy site hemostatic EXTREMITIES: GALINDO, No deformities, No edema SKIN: Skin color, texture, turgor normal, No rashes or lesions NEURO: AANDOx3, CN II-XII grossly intact PSYCH: normal mood and affect ASSESSMENT AND PLAN: Assessment Active Hospital Problems Diagnosis Date Noted Ileostomy present ([facility]) 11/26/2022 Assessment: 36 year old male with colon inertia s/p ileostomy reversal. Hospital Course/Operations/Procedures: 11/26/2022 Procedure(s): CLOSURE ILEOSTOMY INPATIENT ATTENDING: Dr. Collin Le MD, Elective High-Risk Geriatric Patient Vulnerabilities: Patient is NOT high risk based on evaluation and assessment Plan: - DIET GASTRO INTESTINAL - PRN pain/nausea control. Compazine added for second line - mobilize, IS - PPI - DVT: LVX - hopefulle home soon, once nausea control improved. - plan of care discussed with patient, resident team and attending: Dr. Le SIGNATURE: Nicolas Thornton DO PATIENT NAME: Eunice Vargas DATE: November 28, 2022 TIME: 7:54 AM Pager: see below Elective General Surgery (Green Surgery) Service Pager: For questions or concerns Mon-Fri 6a-5p please page [phone]. After 5pm and on Weekends and Holidays, please page [phone] if in ICU or [phone] if on RNF. [facility] 11-27-2022 Note HNO ID: [id number] Author: Alexander Nolen MD Service: General Surgery Author Type: Resident Type: Progress Notes Filed: 11/27/2022 8:03 AM Note Text: Attestation signed by Collin Le MD at 11/27/2022 5:02 PM Having some bowel function, will advance diet and see how he does with a soft GI diet today. I personally saw and examined the patient on 11/27/2022. I reviewed the resident?s note. I agree with the resident?s assessment and plan unless otherwise noted Collin Le MD 5:02 PM 11/27/22 Please Note: This office note has been created using Bucky Box, a speech recognition software program, and may contain errors including punctuation, grammar, spelling, gender, and inappropriate words or phrases that pertain to the sytem. Elective General Surgery (Green Surgery) Progress Note SERVICE DATE: November 27, 2022 Elective General Surgery (Green Surgery) Service Pager: For questions or concerns Mon-Fri 6a-5p please page [phone]. After 5pm and on Weekends and Holidays, please page [phone]. SUBJECTIVE: Patient status post ileostomy reversal. Patient doing well without any nausea/vomiting. Had about 3 BM. Tolerating diet DIET LIQUID OBJECTIVE: Vitals: Temp (24hrs), Av.6 ?C (97.8 ?F), Min:36 ?C (96.8 ?F), Max:37.1 ?C (98.8 ?F) BP 112/83 Pulse 77 Temp 36.7 ?C (98.1 ?F) (Oral) Resp 16 Ht 167.6 cm (5' 6 ) Wt 72.6 kg (160 lb) SpO2 100% BMI 25.82 kg/m? O2 Therapy: Room Air IANDO: Date 11/26/22 07 - 11/27/22 0659 11/27/22 07 - 11/28/22 0659 Shift 7562-5439 7685-1156 4045-2945 24 Hour Total 4192-8390 0341-2508 3736-0976 24 Hour Total INTAKE PO 240 240 PO 240 240 IV 1400 1400 Volume (mL) (lactated ringers iv infusion) 1400 1400 Shift Total 1640 1640 OUTPUT Urine Urine Not Saved. 1 x 2 x 3 x # of BMs Number of BMs 2 x 1 x 3 x Blood 5 5 Estimated Blood loss 5 5 Shift Total 5 5 Weight (kg) 72.6 72.6 72.6 72.6 72.6 72.6 72.6 MEDICATIONS: Current Facility-Administered Medications Medication Dose Route Frequency pantoprazole DR 40 mg tab(s) (PROTONIX) 40 mg ORAL DAILY (6 AM) magnesium oxide 400 mg tab(s) (MAG-OX) 400 mg ORAL DAILY ondansetron (PF) 4 mg injection (ZOFRAN) 4 mg INTRAVENOUS q 4 H PRN acetaminophen 975 mg tab(s) (TYLENOL) 975 mg ORAL q 6 H traMADol 50-100 mg tab(s) (ULTRAM) 50-100 mg ORAL q 6 H PRN enoxaparin 40 mg injection (LOVENOX) 40 mg SUBCUTANEOUS q 24 HR NaCl 0.9% iv flush bag 20 mL INTRAVENOUS PRN lactated ringers iv infusion 40 mL/hr INTRAVENOUS CONTINUOUS alvimopan 12 mg cap(s) (ENTEREG) 12 mg ORAL BID Labs: Recent Labs 11/27/22 0452 NA 137 K 4.0 CHLOR 106* CO2 21* BUN 8* CREAT 0.85 GLUC 87 ANION 10 CA 8.2* WBC 8.14 HB 13.1 HCT 38.7* PLT 198 Physical Exam: GENERAL: resting comfortably, in no acute distress HEENT: normocephalic, atraumatic, EOMI NECK: trachea midline, no JVD LUNGS: Unlabored breathing, equal chest rise bilaterally CARDIAC: Regular rate, warm extremities, good perfusion throughout ABDOMEN: Soft. Mildly TTP. Ileostomy site with dressing. EXTREMITIES: GALINDO, No deformities, No edema SKIN: Skin color, texture, turgor normal, No rashes or lesions NEURO: AANDOx3, CN II-XII grossly intact PSYCH: normal mood and affect ASSESSMENT AND PLAN: Assessment Active Hospital Problems Diagnosis Date Noted Ileostomy present (HCC) 11/26/2022 Assessment: 36 year old male s/p ileostomy reversal. Hospital Course/Operations/Procedures: 11/26/2022 Procedure(s): CLOSURE ILEOSTOMY INPATIENT ATTENDING: Dr. Collin Le MD, Elective High-Risk Geriatric Patient Vulnerabilities: Patient is NOT high risk based on evaluation and assessment Plan: - Advance diet to Gi soft given Bowel function - PRN pain/nausea control - D/C entereg - Encourage OOB/IS use - DVT: LVX - Diet: DIET LIQUID - Anticipated discharge: today vs Tomorrow Discussed with attending: Dr. Dr. Le Follow up needs: TBD SIGNATURE: Alexander Nolen MD PATIENT NAME: Eunice Vargas DATE: November 27, 2022 TIME: 7:57 AM Pager: see below Elective General Surgery (Green Surgery) Service Pager: For questions or concerns Mon-Fri 6a-5p please page [phone]. After 5pm and on Weekends and Holidays, please page [phone] if in ICU or [phone] if on RNF. [facility] 11-26-2022 Note HNO ID: [id number] Author: Jennifer Cardenas RN Service: ? Author Type: Registered Nurse Type: Nursing Progress Note Filed: 11/26/2022 2:46 PM Note Text: Family visiting at bedside for second time, pt waiting on bed [facility] 11-26-2022 Note HNO ID: [id number] Author: Jennifer Cardenas RN Service: ? Author Type: Registered Nurse Type: Nursing Progress Note Filed: 11/26/2022 2:45 PM Note Text: Changed dress, edges were pink, minimal bleeding to site. Gauze placed and tegaderm [facility] 11-26-2022 Note HNO ID: [id number] Author: Jennifer Cardenas RN Service: ? Author Type: Registered Nurse Type: Nursing Progress Note Filed: 11/26/2022 12:02 PM Note Text: Messaged provider to change dressing, waiting for response [facility] 11-26-2022 Note HNO ID: [id number] Author: Gulshan Parker APRN.CRNA Service: Anesthesiology Author Type: Nurse Cutter Grinder Type: Anesthesia Procedure Notes Filed: 11/26/2022 7:48 AM Note Text: ANESTHESIOLOGY PROCEDURE NOTE PIV General Information Procedure Start Time/Medication Administration: 11/26/2022 7:10 AM Staffing Performed by: anesthesiologist Preparation Sterility Preparation: hand hygiene performed prior to procedure, sterile gloves, drapes, and procedure tray, gown used during line insertion, surgical cap used, mask used, sterile drape used during line insertion, skin prep agent completely dried prior to procedure Site Prep: Chloraprep Procedure Details Indication: need for IV access Needle Size/Type: 18 gauge angiocath Orientation: Right Location: Forearm Imaging Guidance Used: No SIGNATURE: Gulshan Parker APRN.CRNA PATIENT NAME: Eunice Vargas DATE: November 26, 2022 TIME: 7:48 AM CSN: [id number] [facility] 11-26-2022 Note HNO ID: [id number] Author: Gulshan Parker APRN.CRNA Service: Anesthesiology Author Type: Nurse Cutter Grinder Type: Anesthesia Procedure Notes Filed: 11/26/2022 7:47 AM Note Text: ANESTHESIOLOGY PROCEDURE NOTE Airway General Information Procedure Start Time/Medication Administration: 11/26/2022 7:34 AM Patient location during procedure: OR Timeout Performed Pre-procedure: timeout performed Consent Obtained: Yes Patient identity confirmed: arm band and patient Staffing MATTE CUTTER: Gulshan Parker APRN.MATTE CUTTER Performed by: BLAINE Indications and Patient Condition Indications for airway management: anesthesia Preoxygenated: yes anesthesia circuit Patient position: sniffing Method: asleep Difficult Mask: No Final Airway Details Final airway type: endotracheal airway Final Endotracheal Airway: ETT Cuffed: yes Successful intubation technique: direct laryngoscopy Devices used: intubating stylet Endotracheal tube insertion site: oral Blade: Sherry Blade size: #4 ETT size (mm): 8.0 Measured from: lips Measurement (cm): 22 Placement verified by: chest auscultation and capnometry Cormack-Lehane Classification: grade I - full view of glottis Number of attempts at approach: 1 Failed airway: no Airway not difficult SIGNATURE: Gulshan Parker APRN.BLAINE PATIENT NAME: Eunice Vargas DATE: November 26, 2022 TIME: 7:47 AM CSN: [id number] [facility] 11-21-2022 History and physical note HISTORY AND PHYSICAL EXAMINATION SERVICE DATE: 11/21/2022 SERVICE TIME: 40 PRIMARY CARE PHYSICIAN: Cassie Richardson MD REASON FOR VISIT: Eunice Vargas is a 36 year old male who is scheduled for Procedure(s): CLOSURE ILEOSTOMY (Pending) at the request of Dr. Collin Le for routine H&P. My final recommendation will be communicated back to the requesting physician by way of shared medical record or letter. Subjective The patient has the following: ACTIVE PROBLEM LIST Attention Deficit Disorder Without Mention of Hyperactivity Plantar Fascial Fibromatosis Obesity, Class I, Bmi 30-34.9 Spondylolisthesis of Lumbar Region Acute Midline Low Back Pain With Left-Sided Sciatica Ileus Following Gastrointestinal Surgery (Hcc) Generalized Abdominal Pain Malnutrition of Moderate Degree (Hcc) Colonic Inertia Enteritis Lactic Acidosis Sepsis (Hcc) Pre-Op Exam COVID-19 Immunization Status COVID-19 VACCINE (Series Information) Completed 08/22/2022 Imm Admin: COVID-19 booster vaccine, age 12+ yr, bivalent ([employer]) 07/31/2021 Imm Admin: COVID-19 original vaccine, full dose, monovalent (MODERNA) 12/07/2020 Imm Admin: COVID-19 original vaccine, full dose, monovalent (MODERNA) Only the first 3 history entries have been loaded, but more history exists. CHIEF COMPLAINT: The reason for this visit is to perform a comprehensive review of the patient's past medical history, assess their current health status and obtain any additional testing required based on anesthesia guidelines. We will also identify any potential anesthesia problems or contraindications to the planned procedure. HPI: Patient is a 36 year old male who presents for pre surgical testing. He has h/o colonic inertia and has had multiple surgeries. He had right hemicolectomy and ileostomy placed in . He had been in the hospital repeatedly with fever after that. ON 11/2021 he had OPEN COMPLETION COLECTOMY, WITH EXTENSIVE LYSIS OF ADHESIONS diverting loop ileostomy He is now here for reversal. He currently denies abdominal pain, nausea or vomiting. After discussion with the surgeon the patient agrees to surgical intervention. REVIEW OF SYSTEMS: General: Negative for: unintentional weight change, malaise and fever. Neurological: Negative for: headaches, seizures and strokes. Respiratory: Negative for: asthma, COPD, pneumonia within 6 weeks, URI < 2 weeks and obstructive sleep apnea. Cardiovascular: Negative for: atrial fibrillation, CAD, chest pain, CHF, DVT/PE, hyperlipidemia and hypertension. GI: See HPI. Negative for: abdominal pain, GERD, nausea and vomiting. : Negative for: dysuria, hematuria and renal failure. Endocrine: Negative for: diabetes mellitus, hyperthyroidism and hypothyroidism. Hematology: Negative for: anemia, factor V Leiden and von Willebrand disease. Oncology: No history of CA metastasis, chemo within 30 days, or radiotherapy within 90 days. No history of oncological symptoms or problems. Psych: Positive for: ADHD. Negative for: anxiety and depression. Musculoskeletal: Positive for: back pain. Negative for: joint pain. Skin: Negative for lesions, rash and itching. PAST MEDICAL HISTORY Diagnosis Date ADHD (attention deficit hyperactivity disorder) Colon immotility colon inertia per pt Colonic inertia Ileostomy in place (HCC) 2021 Lumbar disc herniation with radiculopathy Sigmoidoscopy performed 09/26/2022 PAST SURGICAL HISTORY Procedure Laterality Date APPENDECTOMY 05/14/2021 w/ 2/3rd of colon removed at same time COLONSCOPY SCREENING HIGH RISK 05/25/2021 DENTAL SURGERY PROCEDURE wisdom teeth LAPAROSCOPIC HEMICOLECTOMY 11/10/2021 Dr. Le LUMBAR SPINE FUSN,POST TECH 2019 lumbar spine fusion PAST SURGICAL HISTORY OF Right 09/2021 Hemicolectomy PEG INSERTION_*FL 05/30/2021 PEG tube placed FAMILY HISTORY Problem Relation Age of Onset None Mother Diabetes Father Multiple Sclerosis Maternal Grandmother other (Other macular degeneration) Maternal Grandfather Social History Tobacco Use Smoking status: Never Smokeless tobacco: Never Tobacco comments: cigar 2 - 3 x yearly Vaping Use Vaping Use: Never used Substance Use Topics Alcohol use: Yes Comment: 2-3x/week Drug use: Never Prior to Admission medications as of 11/21/22 0954 Medication Sig Last Dose Taking loperamide (IMODIUM) 2 mg cap(s) Take 1 capsule by mouth three times daily. Patient taking differently: Take 2 mg by mouth as needed. Taking Yes MULTIVITAMIN ORAL Take 1 tablet by mouth once daily. Taking Yes ondansetron orally disintegrating (ZOFRAN ODT) 4 mg disintegrating tablet Take 1 tablet by mouth every 8 hours as needed for nausea/vomiting. Miscellaneous Medical Supply Ileostomy supplies: - 1 Box Coloplast One piece Assura drainable pouch OR - 2 boxes Coloplast Tacho red flat wafer # [id number] - 1 box Coloplast Tacho red drainable pouches # 99296 - 1 box Ryan small barrier rings # 7805 - 1 tube stomahesive paste # 2650 - 1 box Coloplast Elastic barrier strips # [id number] - 1 bottle stomahesive powder # 81161 - 1 box adhesive remover wipes - 1 box skin barrier prep wipes # No medication comments found. ALLERGIES Allergen Reactions Adhesive Other: See Comments Large blisters Objective PHYSICAL EXAM: General: alert and oriented and healthy appearance. Pertinent negatives noted - not distressed. Skin: normal color, no rash or lesions. HEENT: pupils equal round. Cardiovascular: regular rate and rhythm, normal S1 and S2, no rub, murmurs, or gallop. Pulse characterized as regular. Respiratory: normal breath sounds, no wheezes or crackles. No chest wall deformity or tenderness. Abdomen: bowel sounds present. Extremities: no deformity, no edema or tenderness, no joint swelling or clubbing. Neurological: normal cognition and motor skills. Gait normal. No weakness or sensory deficit. PAIN ASSESSMENT: VITALS: BP 110/73 Pulse 70 Temp 97.9 Resp 16 Ht 5' 6 (1.68m) Wt 165 lb (74.8kg) SpO2 99% BMI 26.64 kg/(m^2). Diagnostic tests reviewed for today's visit: Lab Value Units Date High Low HB No results within date range. HCT No results within date range. WBC No results within date range. PLT No results within date range. NA No results within date range. K No results within date range. GLUC No results within date range. BUN No results within date range. CREAT No results within date range. PTSEC No results within date range. INR No results within date range. APTT No results within date range. ALT No results within date range. AST No results within date range. TBILI No results within date range. TSH No results within date range. Lab Value Units Date High Low HCGQT No results within date range. UHCG No results within date range. HCG, BODY* No results within date range. Lab Value Units Date High Low ABORHD No results within date range. ABSCREEN No results within date range. Hemoglobin A1C (%) Date Value 08/22/2022 5.0 11/28/2021 5.5 Recent Results (from the past 8760 hour(s)) ECG COMPLETE Collection Time: 04/02/22 4:41 PM Result Value Ventricular Rate 80 Atrial Rate 80 P-R Interval 142 QRS Duration 110 QT Interval 354 QTC Calculation (Bazett) 408 Calculated P Maljamar 56 Calculated R Maljamar -28 Calculated T Maljamar 20 Impression NORMAL SINUS RHYTHM WITH SINUS ARRHYTHMIA POSSIBLE LEFT ATRIAL ENLARGEMENT INCOMPLETE RIGHT BUNDLE BRANCH BLOCK BORDERLINE ECG WHEN COMPARED WITH ECG OF 21-SEP-2021 15:08, VENT. RATE HAS DECREASED BY 48 BPM Confirmed by MD BERNARD PATRICIA ([id number]) on 04/02/2022 5:38:01 PM No results found for this or any previous visit (from the past 61515 hour(s)). Assessment Patient has the following medical conditions which may affect jean pierre-operative course: Colonic inertia Surgery scheduled Pre-op exam see note for medical conditions which may affect jean pierre-operative course that were addressed at today's visit. Moya Activity Status Index: METS: Climb a flight of stairs or walk up a hill (5.50 METs) DASI Score: 5.5 Patient denies any chest pain or undue shortness of breath with the above physical activity. ARISCAT Score: Age: <=50 Preoperative SpO2: >=96% Respiratory infection in the last month: No Preoperative anemia: No Surgical incision: upper abdominal Duration of surgery: 2-3 hrs Emergency procedure: No ARISCAT Score: 31 ANESTHESIA FINDINGS: Intubation History: No history of difficult intubation Significant Anesthesia Considerations: none Airway History: No history of difficult airway I - PHYSICAL EVALUATION AIRWAY Patient intubated: No. DENTAL Dental findings: teeth intact. II - ANESTHESIA PLAN Anesthetic Plan: general Beta Liv Monitoring Plan Post Procedure Analgesic Plan Prepared for Surgery: CONSULTS: Patient does not require consults for optimization at this time Planned Anesthetic: general The Following Tests/Procedures Have Been Initiated: Orders Placed This Encounter CBC Standing Status: Future Number of Occurrences: 1 Standing Expiration Date: 01/21/2023 BASIC METABOLIC PNL Standing Status: Future Number of Occurrences: 1 Standing Expiration Date: 01/21/2023 Implantable Devices: spinal instrumentation Patient denies blood thinners Assessment/Plan Colonic inertia [K59.9] PLAN Planned Procedure: Procedure(s): CLOSURE ILEOSTOMY (Pending) The Following Tests/Procedures Have Been Initiated: No labs ordered per surgeon in epic CBC, BMP ordered per CUSTOMER SUPPORT EXECUTIVE I spent a total of 40 minutes on the date of the service which included preparing to see the patient, [id number] patient care, completing clinical documentation, obtaining and/or reviewing separately obtained history, performing a medically appropriate examination, counseling and educating the patient/family/caregiver, and ordering medications, tests, or procedures. Instructions Given to Patient: Instructions located in the after visit summary. Patient given verbal and written preop instructions and voices comprehension and compliance. SIGNATURE: Kinza Sutton APRN.CNP PATIENT NAME: Eunice Vargas DATE: November 20, 2022 TIME: 3:18 PM PAGER/CONTACT #: documented in this encounter [facility] 11-21-2022 Instructions Kinza Sutton APRN.CNP - 11/21/2022 9:52 AM EDT PATIENT PREOPERATIVE INSTRUCTIONS Collin Le, * has scheduled you for your procedure at this surgery center: [facility]: [phone], [address] [address] Please read below carefully for your personalized instructions. Date of Surgery:11/26/2022 Arrival Time for Surgery: - To obtain your ARRIVAL TIME for surgery, call your surgeon's office the day before your surgery. - If your surgery is scheduled for Friday, call the Friday before. Your surgeon's project scheduler will tell you what time to call the office. Please be aware that emergency situations arise, which may delay or change your surgical time. If this happens, we will notify you as soon as possible and regret any inconvenience. Dietary Restrictions: - No solid food after midnight. - Between midnight and four hours prior to your surgery time, you may have 12 ounces of clear liquids (Apple juice, carbonated beverages, Gatorade, black coffee or tea) unless your surgeon specifies otherwise Medications: AVS was given to patient and specific instructions for each medication reviewed. Please continue to take blood pressure medications including day of surgery. Any oral diabetic medications should be held day of surgery. If you are taking insulin please discuss with prescribing physician for pre op instructions. Blood Thinning Medications: - Stop NSAIDS (Ibuprofen, Advil, Aleve, Motrin, Celebrex, Mobic, etc.) 7 days before surgery, as directed by your surgeon. - If you take any of the following blood thinners, please contact your surgeon and the physician who prescribes it for you in order to get perioperative instructions as soon as possible Blood thinners: Aspirin,Coumadin, Plavix, Eliquis, Pradaxa, Xarelto, Lovenox, Brilinta, Effient, Savaysa, etc. - Stop Vitamin E, fish oil, Ginko, [place]'s Wort, flax seed oil, multivitamins, CBD oil, marijuana and other over the counter herbals and dietary supplements 7 days before surgery. This would not apply to cancer patients who are prescribed Marinol or any other prescription form of marijuana or CBD. Please follow up with the provider that manages your diabetes on how to prepare you for surgery. If you are taking the following medications for Type 2 diabetes: Canagliflozin (INVOKANA), dapagliflozin (FARXIGA), and empagliflozin (JARDIANCE) should each be discontinued at least 3 days before scheduled surgery. Ertugliflozin (STEGLATRO) should be discontinued at least four days before scheduled surgery. Pain Medications: - You may take Tylenol (Acetaminophen) or any of your current prescribed pain medications that do not contain aspirin or NSAIDS as needed. Approved medications can be taken the morning of surgery with a sip of water. If you take any medications for erectile dysfunction-Cialis (Tadalafil), Levitra, Staxyn (Vardenafil) Viagra (Sildenenafil please do not take these for 48 hours before surgery. If you start any new medications after today's visit, please contact the surgeon's office. Important Reminders: - If you use CPAP/BIPAP, bring the machine with you to the surgery center. - If you are prescribed inhalers for breathing, continue using them AND bring them to the surgery center. - Candy, mints, gum and tobacco products are NOT permitted the morning of surgery. - Hearing aids, dentures and glasses may be worn the morning of surgery. - NO jewelry, body piercings, makeup, hairpins or contacts are to be worn the day of surgery. - NO lotion, creams, powders or deodorants on the skin the day of surgery - You will need to have someone else (Family or friend) drive you home once discharged from the hospital. You cannot take a cab or Uber. You are not allowed to drive yourself home after surgery. -You will need an adult(over the age of 18) to stay with you for the first 24 hours post surgery or your surgery may be cancelled. Please speak with your surgeon if this is an issue. Surgical scrub given day of PST. If you develop symptoms such as a fever, cold, or flu, or have other changes to your health within TWO DAYS of scheduled surgery or the morning of surgery, please contact the surgery center above. Check with surgeon to see if covid test is needed. Personal Belongings: - Leave ALL valuables and money at home or with family members. - You will need a form of ID and insurance card to check in the morning of surgery. - You will have to wear a hospital gown during your stay but if you wish to bring undergarments for after surgery you may. -If you do not have a copy of advance directives on file with us, please bring a copy with you on the day of surgery. If you already have an Advance Directive, please fax a copy to [phone] or email to for it to be added to your chart. If you do not have an Advance Directive, you can find the appropriate form and more information at [email or web address]. We recommend that you complete the Advance Directive form found on the website and bring it with you the day of your surgery. It can be witnessed and scanned into your chart that day. Please note-you should have a 72-hour period between getting your vaccine and date of surgery - If you have a stimulator, implant or pump that requires a remote please bring the remote with you day of surgery Kinza Sutton APRN.ANDREW documented in this encounter [facility] 10-29-2022 Surgical operatio n note OPERATIVE/PROCEDURE REPORT LOG ID: [id number] Surgery/Procedure Date: Incision/Procedure Start Time: 9:46 AM Incision Close/Procedure End Time: 10:13 AM Surgeon(s)/Proceduralist(s) and Kelp Cutter(s): Surgeon(s) and Role: * Daren Dimas MD - Proceduralist No Additional Staff Procedure(s): Flexible sigmoidoscopy with dilation and steroid injection Anesthesia: Monitored anesthesia care Brief History: 36/M with h/o- colonic inertia S/P sub-total colectomy with ileo-rectal anastomosis complicated by stenosis of the surgical anastomosis for dilation of anastomosis Procedure Details: The patient was placed in the left lateral decubitus position. A digital rectal exam was performed and this was normal. The Olympus colonoscope was introduced into the rectum and advanced to splenic flexure. The procedure was not technically difficult. The bowel preparation was excellent. The scope was then slowly withdrawn and the mucosal folds examined in detail. Rectum- Polyps- none; Stenosis of Ileo-rectal anastomosis with internal diameter of 12 mm. We then passed CRE balloon (15/ 18 mm and then 18/ 20 mm) and the stenosis was dilated to 20 mm. Mild disruption of mucosa suggestive of successful dilation. We then injected Kenolog 40 mg (diluted in 3 ml of Normal saline) around the edges of the anastomosis to prevent re-stenosis Pre-Op/Pre-Procedure Diagnosis: Ileo-colonic anastomotic stricture Post-Op/Post-Procedure Diagnosis: Ileo-colonic anastomotic stricture S/P balloon dilation and steroid injection Specimens: See above EBL: None Complications: None Recommendations: Continue current medications Follow up with Dr. Le for further management I/primary surgeon/proceduralist performed the procedure with assistance. Daren Dimas MD SIGNATURE: Daern Dimas MD PATIENT NAME: Eunice Vargas DATE: October 29, 2022 TIME: 10:25 AM PAGER/CONTACT #: [phone] documented in this encounter [facility] 10-29-2022 History and physical note HISTORY AND PHYSICAL EXAMINATION SERVICE DATE: 10/29/2022 SERVICE TIME: 7:25 AM PRIMARY CARE PHYSICIAN: Cassie Richardson MD REASON FOR VISIT: The reason for this visit is To perform a comprehensive review of the patients past medical history, assess their current health status and obtain any additional testing required based on anesthesia guidelines. To assess and identify potential anesthesia problems, particularly those that may suggest potential complications or contraindications to the planned procedure. The patient has the following: ACTIVE PROBLEM LIST Attention Deficit Disorder Without Mention of Hyperactivity Plantar Fascial Fibromatosis Obesity, Class I, Bmi 30-34.9 Spondylolisthesis of Lumbar Region Acute Midline Low Back Pain With Left-Sided Sciatica Ileus Following Gastrointestinal Surgery ([facility]) Generalized Abdominal Pain Malnutrition of Moderate Degree ([facility]) Colonic Inertia Enteritis Lactic Acidosis Sepsis ([facility]) Subjective CHIEF COMPLAINT: Preoperative Examination HPI: Patient present to [facility] for the above procedure. Patient here for routine sigmoidoscopy. Pt currently has illiostomy. Patient denies any N/V/D or constipation. Denies any abdominal pain. Denies any melena or hematochezia. Patient denies any other problems at this time. Denies any family history of Colon cancer or other Gastric ca. Patient agreed to planned procedure. METS: Climb a flight of stairs or walk up a hill (5.50 METs) Patient denies any CP/SOB with above activity. PAST MEDICAL HISTORY Diagnosis Date ADHD (attention deficit hyperactivity disorder) Colon immotility colon inertia per pt Lumbar disc herniation with radiculopathy PAST SURGICAL HISTORY Procedure Laterality Date APPENDECTOMY 05/14/2021 w/ 2/3rd of colon removed at same time COLONSCOPY SCREENING HIGH RISK 05/25/2021 DENTAL SURGERY PROCEDURE wisdom teeth LAPAROSCOPIC HEMICOLECTOMY 11/10/2021 Dr. Le LUMBAR SPINE FUSN,POST TECH 2019 lumbar spine fusion PAST SURGICAL HISTORY OF Right 09/2021 Hemicolectomy PEG INSERTION_*FL 05/30/2021 PEG tube placed FAMILY HISTORY Problem Relation Age of Onset None Mother Diabetes Father Multiple Sclerosis Maternal Grandmother other (Other macular degeneration) Maternal Grandfather SOCIAL HISTORY: Social History Tobacco Use Smoking status: Never Smokeless tobacco: Never Tobacco comments: cigar 2 - 3 x yearly Vaping Use Vaping Use: Never used Substance Use Topics Alcohol use: Yes Comment: 2-3x/week Drug use: Not Currently Types: Marijuana Prior to Admission medications as of 10/29/22 0729 Medication Sig Last Dose Taking ondansetron orally disintegrating (ZOFRAN ODT) 4 mg disintegrating tablet Take 1 tablet by mouth every 8 hours as needed for nausea/vomiting. loperamide (IMODIUM) 2 mg cap(s) Take 1 capsule by mouth three times daily. Miscellaneous Medical Supply Ileostomy supplies: - 1 Box Coloplast One piece Assura drainable pouch OR - 2 boxes Coloplast Tacho red flat wafer # 92201 - 1 box Coloplast Tacho red drainable pouches # 54089 - 1 box Ryan small barrier rings # 7805 - 1 tube stomahesive paste # 2650 - 1 box Coloplast Elastic barrier strips # 601163 - 1 bottle stomahesive powder # 70114 - 1 box adhesive remover wipes - 1 box skin barrier prep wipes # MULTIVITAMIN ORAL Take 1 tablet by mouth once daily. No medication comments found. ALLERGIES Allergen Reactions Adhesive Other: See Comments Large blisters REVIEW OF SYSTEMS: PAIN ASSESSMENT: Pain Pain Level: 0 Pain Assessment: Assessment Tool: Verbal (Numeric Rating or Visual Analog Scale) General: Denies fever, chills, and unexpected weight change. Neuro: Denies dizziness and headaches. Respiratory: Denies SOB. Cardiovascular: Denies CP and palpitations. GI: See HPI. : Denies dysuria. Endocrine: No history of diabetes or thyroid conditions. Hematology: Denies history of bleeding or clotting disorder. No known autoimmune disorders. Psych: Denies anxiety/depression. Musculoskeletal: Denies joint pain and swelling. Skin: Denies open sores and rashes. Objective PHYSICAL EXAM: VITALS: BP 123/72 Pulse 95 Temp 98.8 Resp 14 SpO2 100% O2 Therapy: Room Air General: NAD. Cooperative. Skin: Skin is warm, no rashes, and no open sores. HEENT: Normocephalic. Cardiovascular: Normal S1 & S2. No murmur. Lungs: CTA Bilaterally. No respiratory distress. Abdomen: Soft. Pos BS x4quad Extremities: No edema. Neurological: Alert and oriented to person, place, and time. Pulses: radial pulses +2 Diagnostic tests reviewed for today's visit: Lab Value Units Date High Low HB No results within date range. HCT No results within date range. WBC No results within date range. PLT No results within date range. NA No results within date range. K No results within date range. GLUC No results within date range. BUN No results within date range. CREAT No results within date range. PTSEC No results within date range. INR No results within date range. APTT No results within date range. ALT No results within date range. AST No results within date range. TBILI No results within date range. TSH No results within date range. Lab Value Units Date High Low HCGQT No results within date range. UHCG No results within date range. HCG, BODY* No results within date range. Lab Value Units Date High Low ABORHD No results within date range. ABSCREEN No results within date range. Hemoglobin A1C (%) Date Value 08/22/2022 5.0 11/28/2021 5.5 Assessment/Plan There is no known pertinent medical condition which may affect jean pierre-operative course Diagnosis: Rectal stricture [K62.4] Planned Procedure: Sigmoidoscopy The Following Tests/Procedures Have Been Initiated: IV start and Maintenance fluid for the procedure. ANESTHESIA FINDINGS: Significant Anesthesia Considerations: None Planned Anesthetic: MAC I spent a total of 15 minutes on the date of the service which included preparing to see the patient, [id number] patient care, completing clinical documentation, and performing a medically appropriate examination. Instructions Given to Patient: Patient given verbal preop instructions and voices comprehension and compliance. SIGNATURE: KIRSTEN Ahumada PATIENT NAME: Eunice Vargas DATE: October 29, 2022 TIME: 7:21 AM PAGER/CONTACT #: documented in this encounter [facility] 10-22-2022 Miscellaneous Notes Images from the original note were not included. Collin Le MD You 7 days ago Thanks I gave him a call 10/15/22 Patient called states his frustration due to having to wait till he is establish with a new GI doctor. Patient expressed understanding of why needing to have dilation. Patient is not pleased with having to scheduled the appointment himself to see GI her expressed he never go the call to schedule from the office and worried the procedure may take even longer to schedule and then have to wait also for the reversal. Patient was encouraged to keep advocating, the office will be sure to keep him inform of when we will be able to schedule reversal. Office will inform Dr. Le. Please advise. Micheline Ochoa Ma documented in this encounter [facility] 10-22-2022 Surgical operatio n note OPERATIVE/PROCEDURE REPORT LOG ID: [id number] Surgery/Procedure Date: Incision/Procedure Start Time: 10:12 AM Incision Close/Procedure End Time: 10:21 AM Surgeon(s)/Proceduralist(s) and Kelp Cutter(s): Surgeon(s) and Role: * Daren Dimas MD No Additional Staff Procedure(s): Flexible sigmoidoscopy with polypectomy ileo-colonic anastomosis dilation Anesthesia: Monitored anesthesia care Brief History: 36/M with colonic inertia S/P sub-total colectomy with ileo-rectal anastomosis complicated by stenosis of the surgical anastomosis Procedure Details: The patient was placed in the left lateral decubitus position. A digital rectal exam was performed and this was normal. The Olympus colonoscope was introduced into the rectum and advanced to splenic flexure. The procedure was not technically difficult. The bowel preparation was good. The scope was then slowly withdrawn and the mucosal folds examined in detail. Rectum- Polyps- none; Stenosis of Ileo-rectal anastomosis with internal diameter of < 4 mm. We then passed CRE balloon (9/12 mm and then 12/15 mm) and the stenosis was dilated to 15 mm. Mild disruption of mucosa suggestive of successful dilation. We were then able to pass the scope across the anastomosis. Ileal mucosa was normal. Pre-Op/Pre-Procedure Diagnosis: Ileo-colonic anastomotic stricture Post-Op/Post-Procedure Diagnosis: Ileo-colonic anastomotic stricture S/P balloon dilation Specimens: See above EBL: None Complications: None Recommendations: Continue current medications Follow up pathology Repeat sigmoidoscopy in 1 week- will need injection of Kenolog during next session I/primary surgeon/proceduralist performed the procedure with assistance. Daren Dimas MD SIGNATURE: Daren Dimas MD PATIENT NAME: Eunice Vargas DATE: October 22, 2022 TIME: 10:23 AM PAGER/CONTACT #: [phone] documented in this encounter [facility] 10-02-2022 Miscellaneous Notes Patient called the office and wanted to know if there was an update about getting his junction site dilated. I told the patient I would reach out to you and give him a call back with an update. Thank you. Maryjane Duckworth October 02, 2022 10:53 AM documented in this encounter [facility] 09-26-2022 Note HNO ID: [id number] Author: Jil Penaloza RN Service: ? Author Type: Registered Nurse Type: Nursing Progress Note Filed: 09/26/2022 9:51 AM Note Text: Dr Le spoke with patient [facility] 09-26-[address] Le spoke with patient documented in this encounter [facility] 09-26-2022 Hospital Discharg e instructions Collin Le MD - 09/26/2022 9:35 AM EST First 24 Hours Following the Procedure Once the colonoscopic procedure has been completed, it is recommended that you be driven home by a friend or family member. If you were sedated for the procedure (which most people are), it's recommended that you have someone with you for the first 24 hours after you leave the endoscopy clinic or hospital. If you have nausea, your doctor may prescribe medications to help alleviate symptoms. During the first 24 hours, you should adhere to the following guidelines: Refrain from driving or operating heavy machinery until at least day after your procedure. Take any pain medications or stool softeners as prescribed. Drink plenty of liquids, including prune juice which can help soften stools. Avoid alcohol for the first 24 hours. Eat high-fiber foods or use an ozob-rlh-qiyrome fiber supplement, if needed. Rest and avoid any heavy lifting or strenuous activity. Make sure you have someone with you. If you are single, ask a friend or family member if they can stay the night. If you're taking a daily aspirin to prevent heart troubles, you don't need to stop. Lower-dose aspirin is considered safe after a colonoscopy. When to Call Your Doctor Complications are uncommon but can occur. Call your doctor or clinic if you experience any of the following symptoms in the first 24 hours following your procedure: You have chills or fever. You experience rectal bleeding of more than a tablespoon. You experience swelling at the site where the IV needle was inserted. You experience severe abdominal pain or bloating (mild pain or bloating can be expected). You are vomiting. You are experiencing irregular heartbeats (arrhythmia). If you just don't feel right for any reason. Trust your intuition, and if you feel that something could be wrong, don't hesitate to call. After the First 24 Hours If polyps were removed during your colonoscopy, you will likely need to alter your activities for the next seven days. This includes not running, not lifting anything over five pounds, avoiding unnecessary travel, and stopping any blood thinners you may be taking (but first, this should be discussed with the physician who has been prescribing the blood thinners, as sometimes using these after a colonoscopy outweighs the risk of not using them). In short, be careful and treat your body gingerly. If you experience any of the following symptoms during the first week, call your doctor immediately or go to your nearest emergency room: You are unable to have a bowel movement or to urinate. You suddenly have trouble breathing. Your stools are black or bloody. Your vomit has blood or bile in it. Your abdomen becomes tender and hard. Any symptoms you have are getting worse. documented in this encounter [facility] 09-26-2022 Surgical operatio n note OPERATIVE/PROCEDURE REPORT LOG ID: [id number] Surgery/Procedure Date: Incision/Procedure Start Time: 9:25 AM Incision Close/Procedure End Time: 9:28 AM Surgeon(s)/Proceduralist(s) and Kelp Cutter(s): Surgeon(s) and Role: * Aric Patino DO - Resident - Assisting * Collin Le MD - Proceduralist No Additional Staff Procedure(s): Flexible sigmoidoscopy Anesthesia: MAC Brief History: The patient is a pleasant 36-year-old male who presents after ileostomy creation and ileorectal anastomosis for reevaluation prior to stoma reversal. Procedure Details: The patient was placed in the left lateral decubitus position. A digital rectal exam was performed and this was normal. The Olympus colonoscope was introduced into the rectum and advanced to the anastomosis in the upper rectum. The anastomosis was noted to be stenosed down to about 4 mm, too small for passage of the scope beyond this. We could look through this opening and see the lumen on the other side, so this did not seem to be a sinus. We withdrew into the rectum which showed some mild signs of diversion colitis retroflexion was performed and this showed no other pathology. The scope was then withdrawn and the patient tolerated the procedure well. Pre-Op/Pre-Procedure Diagnosis: History of ileostomy with ileorectal anastomosis Post-Op/Post-Procedure Diagnosis: Anastomotic stricture Specimens: See above EBL: None Complications: None Recommendations: We will discuss this case with gastroenterology to discuss possible balloon dilation of the stricture. I/primary surgeon/proceduralist performed the procedure with assistance. Collin Le MD SIGNATURE: Collin Le MD PATIENT NAME: Eunice Vargas DATE: September 26, 2022 TIME: 9:32 AM PAGER/CONTACT #: [phone] documented in this encounter [facility] 09-26-2022 History and physical note HISTORY AND PHYSICAL EXAMINATION Eunice Vargas 1985 SERVICE DATE: 09/26/2022 SERVICE TIME: 8:36 AM PRIMARY CARE PHYSICIAN: Cassie Richardson MD SURGEON: Dr. Le ANESTHESIA: MAC DIAGNOSIS: Colonic inertia [K59.9] PROCEDURE: Sigmoidoscopy ACTIVE PROBLEM LIST Attention Deficit Disorder Without Mention of Hyperactivity Plantar Fascial Fibromatosis Obesity, Class I, Bmi 30-34.9 Spondylolisthesis of Lumbar Region Acute Midline Low Back Pain With Left-Sided Sciatica Ileus Following Gastrointestinal Surgery (Hcc) Generalized Abdominal Pain Malnutrition of Moderate Degree (Hcc) Colonic Inertia Enteritis Lactic Acidosis Sepsis (Hcc) Subjective CHIEF COMPLAINT: Colonic inertia HPI: This is a 36 year old male who presents with hx of colonic inertia. Pt currently has an ileostomy and states his colon was removed- he had two bowel surgeries- 09/2021 and 11/2021. He is here for a sigmoidoscopy in hopes of having his ileostomy reversed. He currently takes Imodium prn and states he needs this only occasionally . He denies nausea, vomiting, abdominal pain, weight loss, appetite changes, or blood in his stool. He also denies family hx of colon polyps or colon cancer. His paternal great uncle has hx of crohn's disease. ANESTHESIA FINDINGS: Intubation History: No history of difficult intubation Significant Anesthesia Considerations: None FAMILY PROBLEMS WITH ANESTHESIA: no history of adverse anesthetic event METS: Climb a flight of stairs or walk up a hill (5.50 METs) FUNCTIONAL STATUS: Independent PAST MEDICAL HISTORY Diagnosis Date ADHD (attention deficit hyperactivity disorder) Colon immotility colon inertia per pt Lumbar disc herniation with radiculopathy PAST SURGICAL HISTORY Procedure Laterality Date APPENDECTOMY 05/14/2021 w/ 2 of colon removed at same time COLONSCOPY SCREENING HIGH RISK 05/25/2021 DENTAL SURGERY PROCEDURE wisdom teeth LAPAROSCOPIC HEMICOLECTOMY 11/10/2021 Dr. Le LUMBAR SPINE FUSN,POST TECH 2019 lumbar spine fusion PAST SURGICAL HISTORY OF Right 09/2021 Hemicolectomy PEG INSERTION_*FL 05/30/2021 PEG tube placed FAMILY HISTORY Problem Relation Age of Onset None Mother Diabetes Father Multiple Sclerosis Maternal Grandmother other (Other macular degeneration) Maternal Grandfather Social History Tobacco Use Smoking status: Never Smokeless tobacco: Never Tobacco comments: cigar 2 - 3 x yearly Vaping Use Vaping Use: Never used Substance Use Topics Alcohol use: Yes Comment: 2-3x/week Drug use: No Types: Marijuana Prior to Admission medications as of 09/26/22 0854 Medication Sig Last Dose Taking loperamide (IMODIUM) 2 mg cap(s) Take 1 capsule by mouth three times daily. Yes ondansetron orally disintegrating (ZOFRAN ODT) 4 mg disintegrating tablet Take 1 tablet by mouth every 8 hours as needed for nausea/vomiting. Miscellaneous Medical Supply Ileostomy supplies: - 1 Box Coloplast One piece Assura drainable pouch OR - 2 boxes Coloplast [place] red flat wafer # [id number] - 1 box Coloplast [place] red drainable pouches # 51897 - 1 box Ryan small barrier rings # 7805 - 1 tube stomahesive paste # 2650 - 1 box Coloplast Elastic barrier strips # [id number] - 1 bottle stomahesive powder # 47807 - 1 box adhesive remover wipes - 1 box skin barrier prep wipes # MULTIVITAMIN ORAL Take 1 tablet by mouth once daily. ALLERGIES Allergen Reactions Adhesive Tape-Silic* Other: See Comments Large blisters, locally COMPLETE REVIEW OF SYSTEMS: PAIN ASSESSMENT: Pain Pain Level: 0 Pain Assessment: Assessment Tool: Verbal (Numeric Rating or Visual Analog Scale) General: No weight loss, malaise or fevers. Neuro: No neurological symptoms or problems; no hx of seizure or stroke Respiratory: No history of current cough, wheezing, dyspnea, or recent pneumonia; no hx of asthma, COPD, or MARGARITA Cardiovascular: No history of HTN requiring medication, no history of chest pain, palpitations, CHF, DC, cardiac surgery or stents GI: see HPI : No history of dysuria, frequency or incontinence, stones or chronic kidney disease Endocrine: Negative for Diabetes or thyroid disease Hematology: No history of bleeding or clotting disorder. No history of hematological symptoms or problems. Oncology: No history of oncological symptoms or problems. Psych: +ADHD Musculoskeletal: Negative for joint pain or swelling, back pain or muscle pain. Skin: Negative for lesions, rash and itching. Objective PHYSICAL EXAM: MENTAL STATUS: alert, oriented to person, place and time HEENT: Normocephalic/atraumatic, pharynx clear LUNGS: CTA, no wheezing CARDIAC: RRR, no murmur ABDOMEN: Abdomen soft, non-tender, BS normal, No masses or organomegaly EXTREMITIES: 2+ pedal pulses, no pedal edema 09/26/22 0835 BP: 119/83 Pulse: 81 Resp: 16 Temp: 36.8 C (98.2 F) TempSrc: Temporal Artery SpO2: 100% Weight: 74.4 kg (164 lb) Height: 170.2 cm (5' 7 ) Body mass index is 25.69 kg/m . Assessment/Plan There is no known pertinent medical condition which may affect jean pierre-operative course SIGNATURE: Alix Womack APRN.CNP PATIENT NAME: Eunice Vargas DATE: September 26, 2022 TIME: 8:36 AM PAGER/CONTACT #: documented in this encounter [facility] 09-16-2022 Miscellaneous Notes Radiology Service Progress Note PATIENT NAME: Eunice Vargas DATE OF SERVICE: September 16, 2022 TIME: 10:31 AM PATIENT IDENTITY VERIFICATION COMPLETED USING TWO (2) IDENTIFIERS: Name and Date of confirmed by patient verbally and Name and Date of confirmed by identification band. FALL SCREENING: Has the patient had 2 falls in the last year or 1 fall with injury or currently using an Ambulatory Assistive Device (Walker, Cane, Wheelchair, Crutches, etc.)? No PATIENT GENDER DATA: Male PATIENT RELEVANT IMPLANT DATA REVIEWED: Not Applicable RADIOLOGY DEPARTMENT: General X-ray: Exam(s) Completed: GI/ Procedure(s): Barium enema with water soluable contrast PERIPHERAL IV DATA: Not applicable SIGNED BY: RT Johnna(R) September 16, 2022 10:31 AM documented in this encounter [facility] 08-22-2022 Note HNO ID: [id number] Author: Cassie Richardson MD Service: ? Author Type: Physician Type: Progress Notes Filed: 08/26/2022 5:04 PM Note Text: Pt is here today for an annual physical. 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 They are planning to re-anastomos this in a few months. Otherwise he is feeling good and is without further c/o. The history is provided by the patient. 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 Le LUMBAR SPINE FUSN,POST TECH 2019 lumbar spine fusion PAST SURGICAL HISTORY OF Right 09/2021 Hemicolectomy PEG INSERTION_*FL 05/30/2021 PEG tube placed FAMILY HISTORY Problem Relation Age of Onset None Mother Diabetes Father Multiple Sclerosis Maternal Grandmother other (Other macular degeneration) Maternal Grandfather Social History Social History Narrative Not on file Allergies: ALLERGIES Allergen Reactions Adhesive Tape-Silic* Other: See Comments Large blisters, locally Medications: loperamide (IMODIUM) 2 mg cap(s) Take 1 capsule by mouth three times daily. Miscellaneous Medical Supply Ileostomy supplies: - 1 Box Coloplast One piece Assura drainable pouch OR - 2 boxes Coloplast [place] red flat wafer # 53565 - 1 box Coloplast [place] red drainable pouches # 43835 - 1 box Ryan small barrier rings # 7805 - 1 tube stomahesive paste # 2650 - 1 box Coloplast Elastic barrier strips # [id number] - 1 bottle stomahesive powder # 58403 - 1 box adhesive remover wipes - 1 box skin barrier prep wipes # ondansetron orally disintegrating (ZOFRAN ODT) 4 mg disintegrating tablet Take 1 tablet by mouth every 8 hours as needed for nausea/vomiting. MULTIVITAMIN ORAL Take 1 tablet by mouth once daily. Problem List: ACTIVE PROBLEM LIST Enteritis - 04/02/2022 Lactic Acidosis - 04/02/2022 Sepsis (Hcc) - 04/02/2022 Colonic Inertia - 12/05/2021 Malnutrition of Moderate Degree (Hcc) - 09/22/2021 Ileus Following Gastrointestinal Surgery (Hcc) - 05/29/2021 Generalized Abdominal Pain - 05/29/2021 Acute Midline Low Back Pain With Left-Sided Sciatica - 08/27/2019 Obesity, Class I, Bmi 30-34.9 - 07/19/2019 Spondylolisthesis of Lumbar Region - 07/19/2019 Plantar Fascial Fibromatosis - 07/09/2010 Attention Deficit Disorder Without Mention of Hyperactivity - 08/05/2007 Review of Systems Constitutional: Negative. HENT: Negative. Respiratory: Negative for cough, shortness of breath and wheezing. Cardiovascular: Negative for chest pain, palpitations and leg swelling. Gastrointestinal: Negative for abdominal distention and abdominal pain. Endocrine: Negative for polydipsia, polyphagia and polyuria. Musculoskeletal: Negative. Physical Exam Vitals and nursing note reviewed. Constitutional: Appearance: Normal appearance. HENT: Head: Normocephalic and atraumatic. Cardiovascular: Rate and Rhythm: Normal rate and regular rhythm. Heart sounds: No murmur heard. Pulmonary: Effort: Pulmonary effort is normal. Breath sounds: Normal breath sounds. No wheezing. Musculoskeletal: General: Normal range of motion. Skin: General: Skin is dry. Neurological: Mental Status: He is alert and oriented to person, place, and time. BP 106/68 Pulse 65 Temp 36.2 ?C (97.1 ?F) (Left Tympanic) Ht 170.2 cm (5' 7 ) Wt 76.2 kg (168 lb) SpO2 94% BMI 26.31 kg/m? ASSESSMENT/PLAN: 1. Encounter for immunization - ICD9: V03.89, ICD10: Z23 (primary diagnosis) - [employer] COVID-19 BIVALENT BOOSTER VACCINE, AGE 12+ YR 2. Screening for lipid disorders - ICD9: V77.91, ICD10: Z13.220 - LIPID PANEL BASIC 3. Wellness examination - ICD9: V70.0, ICD10: Z00.00 - Counseled on healthy diet and regular exercise Cassie Richardson MD [facility] 08-22-2022 History of Presen t illness Narrative Pt is here today for an annual physical. 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 They are planning to re-anastomos this in a few months. Otherwise he is feeling good and is without further c/o. The history is provided by the patient. 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 Le LUMBAR SPINE FUSN,POST TECH 2019 lumbar spine fusion PAST SURGICAL HISTORY OF Right 09/2021 Hemicolectomy PEG INSERTION_*FL 05/30/2021 PEG tube placed FAMILY HISTORY Problem Relation Age of Onset None Mother Diabetes Father Multiple Sclerosis Maternal Grandmother other (Other macular degeneration) Maternal Grandfather Social History Social History Narrative Not on file Allergies: ALLERGIES Allergen Reactions Adhesive Tape-Silic* Other: See Comments Large blisters, locally Medications: loperamide (IMODIUM) 2 mg cap(s) Take 1 capsule by mouth three times daily. Miscellaneous Medical Supply Ileostomy supplies: - 1 Box Coloplast One piece Assura drainable pouch OR - 2 boxes Coloplast [place] red flat wafer # 50489 - 1 box Coloplast [place] red drainable pouches # 73996 - 1 box Ryan small barrier rings # 7805 - 1 tube stomahesive paste # 2650 - 1 box Coloplast Elastic barrier strips # 893128 - 1 bottle stomahesive powder # 87990 - 1 box adhesive remover wipes - 1 box skin barrier prep wipes # ondansetron orally disintegrating (ZOFRAN ODT) 4 mg disintegrating tablet Take 1 tablet by mouth every 8 hours as needed for nausea/vomiting. MULTIVITAMIN ORAL Take 1 tablet by mouth once daily. Problem List: ACTIVE PROBLEM LIST Enteritis - 04/02/2022 Lactic Acidosis - 04/02/2022 Sepsis (Hcc) - 04/02/2022 Colonic Inertia - 12/05/2021 Malnutrition of Moderate Degree (Hcc) - 09/22/2021 Ileus Following Gastrointestinal Surgery (Hcc) - 05/29/2021 Generalized Abdominal Pain - 05/29/2021 Acute Midline Low Back Pain With Left-Sided Sciatica - 08/27/2019 Obesity, Class I, Bmi 30-34.9 - 07/19/2019 Spondylolisthesis of Lumbar Region - 07/19/2019 Plantar Fascial Fibromatosis - 07/09/2010 Attention Deficit Disorder Without Mention of Hyperactivity - 08/05/2007 Review of Systems Constitutional: Negative. HENT: Negative. Respiratory: Negative for cough, shortness of breath and wheezing. Cardiovascular: Negative for chest pain, palpitations and leg swelling. Gastrointestinal: Negative for abdominal distention and abdominal pain. Endocrine: Negative for polydipsia, polyphagia and polyuria. Musculoskeletal: Negative. Physical Exam Vitals and nursing note reviewed. Constitutional: Appearance: Normal appearance. HENT: Head: Normocephalic and atraumatic. Cardiovascular: Rate and Rhythm: Normal rate and regular rhythm. Heart sounds: No murmur heard. Pulmonary: Effort: Pulmonary effort is normal. Breath sounds: Normal breath sounds. No wheezing. Musculoskeletal: General: Normal range of motion. Skin: General: Skin is dry. Neurological: Mental Status: He is alert and oriented to person, place, and time. BP 106/68 Pulse 65 Temp 36.2 C (97.1 F) (Left Tympanic) Ht 170.2 cm (5' 7 ) Wt 76.2 kg (168 lb) SpO2 94% BMI 26.31 kg/m ASSESSMENT/PLAN: 1. Encounter for immunization - ICD9: V03.89, ICD10: Z23 (primary diagnosis) - [employer] COVID-19 BIVALENT BOOSTER VACCINE, AGE 12+ YR 2. Screening for lipid disorders - ICD9: V77.91, ICD10: Z13.220 - LIPID PANEL BASIC 3. Wellness examination - ICD9: V70.0, ICD10: Z00.00 - Counseled on healthy diet and regular exercise Cassie Richardson MD documented in this encounter [facility] 08-19-2022 Note HNO ID: [id number] Author: Collin Le MD Service: ? Author Type: Physician Type: Progress Notes Filed: 08/19/2022 12:00 PM Note Text: Collin Le M.D. Colon AND Rectal Surgery [address] [facility], [address] [place] [id number] SUBJECTIVE Eunice Vargas is a 36 year old White male status post completion total colectomy with ileorectal anastomosis and loop ileostomy HPI He generally feels good. He usually empties the stoma 5-6 times per day, often taking 1 Imodium in the morning, but otherwise not requiring any Imodium. His appetite is much better and his weight is stable. Maybe once a week he will have a small amount of discharge per rectum when she has good control over. Review of Systems Constitutional: Negative for chills, fever and weight loss. HENT: Negative for congestion, ear pain, hearing loss, sinus pain and sore throat. Eyes: Negative for blurred vision, double vision and pain. Respiratory: Negative for cough, shortness of breath and wheezing. Cardiovascular: Negative for chest pain, palpitations and leg swelling. Gastrointestinal: Negative for abdominal pain, constipation, diarrhea, heartburn, nausea and vomiting. Genitourinary: Negative for dysuria, frequency and urgency. Musculoskeletal: Negative for back pain, joint pain and neck pain. Skin: Negative for itching and rash. Neurological: Negative for dizziness, weakness and headaches. Endo/Heme/Allergies: Negative for environmental allergies. Does not bruise/bleed easily. Psychiatric/Behavioral: Negative for depression and memory loss. The patient is not nervous/anxious and does not have insomnia. 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 Le LUMBAR SPINE FUSN,POST TECH 2019 lumbar spine fusion PAST SURGICAL HISTORY OF Right 09/2021 Hemicolectomy PEG INSERTION_*FL 05/30/2021 PEG tube placed Social History Tobacco Use Smoking status: Never Smokeless tobacco: Never Tobacco comments: cigar 2 - 3 x yearly Vaping Use Vaping Use: Never used Substance Use Topics Alcohol use: Yes Comment: 4 drinks per month Drug use: No Types: Marijuana FAMILY HISTORY Problem Relation Age of Onset None Mother Diabetes Father Multiple Sclerosis Maternal Grandmother other (Other macular degeneration) Maternal Grandfather The ROS, medical, surgical, family, and social history were reviewed by Collin Le MD ALLERGIES Allergen Reactions Adhesive Tape-Silic* Other: See Comments Large blisters, locally Current Outpatient Medications Medication Sig loperamide (IMODIUM) 2 mg cap(s) Take 1 capsule by mouth three times daily. Miscellaneous Medical Supply Ileostomy supplies: - 1 Box Coloplast One piece Assura drainable pouch OR - 2 boxes Coloplast [place] red flat wafer # 49993 - 1 box Coloplast [place] red drainable pouches # 83706 - 1 box Ryan small barrier rings # 7805 - 1 tube stomahesive paste # 2650 - 1 box Coloplast Elastic barrier strips # 657118 - 1 bottle stomahesive powder # 41140 - 1 box adhesive remover wipes - 1 box skin barrier prep wipes # ondansetron orally disintegrating (ZOFRAN ODT) 4 mg disintegrating tablet Take 1 tablet by mouth every 8 hours as needed for nausea/vomiting. (Patient not taking: Reported on 08/19/2022) MULTIVITAMIN ORAL Take 1 tablet by mouth once daily. (Patient not taking: Reported on 08/19/2022) No current facility-administered medications for this visit. OBJECTIVE BP 134/80 (BP Site: Left Arm, BP Position: Sitting, BP Cuff Size: Regular Adult) Pulse 68 Ht 167.6 cm (5' 6 ) Wt 74.8 kg (165 lb) BMI 26.63 kg/m? BMI 26.63 kg/(m2) Physical Exam Constitutional: General: He is not in acute distress. Appearance: Normal appearance. He is not ill-appearing. Cardiovascular: Rate and Rhythm: Normal rate and regular rhythm. Heart sounds: No murmur heard. No friction rub. No gallop. Pulmonary: Effort: Pulmonary effort is normal. No respiratory distress. Breath sounds: Normal breath sounds. No wheezing or rales. Abdominal: General: There is no distension. Palpations: Abdomen is soft. There is no hepatomegaly. Tenderness: There is no abdominal tenderness. Comments: Stoma is pink and healthy in appearance. No signs of recurrent ventral hernia Musculoskeletal: General: No deformity. Normal range of motion. Skin: General: Skin is warm and dry. Findings: No rash. Neurological: Mental Status: He is alert and oriented to person, place, and time. Gait: Gait normal. Psychiatric: Mood and Affect: (more content not included)... [facility] 08-19-2022 History of Presen t illness Narrative Images from the original note were not included. Collin Le M.D. Colon & Rectal Surgery [address] [facility], [address] [place] [id number] SUBJECTIVE Eunice Vargas is a 36 year old White male status post completion total colectomy with ileorectal anastomosis and loop ileostomy HPI He generally feels good. He usually empties the stoma 5-6 times per day, often taking 1 Imodium in the morning, but otherwise not requiring any Imodium. His appetite is much better and his weight is stable. Maybe once a week he will have a small amount of discharge per rectum when she has good control over. Review of Systems Constitutional: Negative for chills, fever and weight loss. HENT: Negative for congestion, ear pain, hearing loss, sinus pain and sore throat. Eyes: Negative for blurred vision, double vision and pain. Respiratory: Negative for cough, shortness of breath and wheezing. Cardiovascular: Negative for chest pain, palpitations and leg swelling. Gastrointestinal: Negative for abdominal pain, constipation, diarrhea, heartburn, nausea and vomiting. Genitourinary: Negative for dysuria, frequency and urgency. Musculoskeletal: Negative for back pain, joint pain and neck pain. Skin: Negative for itching and rash. Neurological: Negative for dizziness, weakness and headaches. Endo/Heme/Allergies: Negative for environmental allergies. Does not bruise/bleed easily. Psychiatric/Behavioral: Negative for depression and memory loss. The patient is not nervous/anxious and does not have insomnia. 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 Le LUMBAR SPINE FUSN,POST TECH 2019 lumbar spine fusion PAST SURGICAL HISTORY OF Right 09/2021 Hemicolectomy PEG INSERTION_*FL 05/30/2021 PEG tube placed Social History Tobacco Use Smoking status: Never Smokeless tobacco: Never Tobacco comments: cigar 2 - 3 x yearly Vaping Use Vaping Use: Never used Substance Use Topics Alcohol use: Yes Comment: 4 drinks per month Drug use: No Types: Marijuana FAMILY HISTORY Problem Relation Age of Onset None Mother Diabetes Father Multiple Sclerosis Maternal Grandmother other (Other macular degeneration) Maternal Grandfather The ROS, medical, surgical, family, and social history were reviewed by Collin Le MD ALLERGIES Allergen Reactions Adhesive Tape-Silic* Other: See Comments Large blisters, locally Current Outpatient Medications Medication Sig loperamide (IMODIUM) 2 mg cap(s) Take 1 capsule by mouth three times daily. Miscellaneous Medical Supply Ileostomy supplies: - 1 Box Coloplast One piece Assura drainable pouch OR - 2 boxes Coloplast [place] red flat wafer # 42074 - 1 box Coloplast [place] red drainable pouches # 31943 - 1 box [place] small barrier rings # 7805 - 1 tube stomahesive paste # 2650 - 1 box Coloplast Elastic barrier strips # [id number] - 1 bottle stomahesive powder # 39848 - 1 box adhesive remover wipes - 1 box skin barrier prep wipes # ondansetron orally disintegrating (ZOFRAN ODT) 4 mg disintegrating tablet Take 1 tablet by mouth every 8 hours as needed for nausea/vomiting. (Patient not taking: Reported on 08/19/2022) MULTIVITAMIN ORAL Take 1 tablet by mouth once daily. (Patient not taking: Reported on 08/19/2022) No current facility-administered medications for this visit. OBJECTIVE BP 134/80 (BP Site: Left Arm, BP Position: Sitting, BP Cuff Size: Regular Adult) Pulse 68 Ht 167.6 cm (5' 6 ) Wt 74.8 kg (165 lb) BMI 26.63 kg/m BMI 26.63 kg/(m^2) Physical Exam Constitutional: General: He is not in acute distress. Appearance: Normal appearance. He is not ill-appearing. Cardiovascular: Rate and Rhythm: Normal rate and regular rhythm. Heart sounds: No murmur heard. No friction rub. No gallop. Pulmonary: Effort: Pulmonary effort is normal. No respiratory distress. Breath sounds: Normal breath sounds. No wheezing or rales. Abdominal: General: There is no distension. Palpations: Abdomen is soft. There is no hepatomegaly. Tenderness: There is no abdominal tenderness. Comments: Stoma is pink and healthy in appearance. No signs of recurrent ventral hernia Musculoskeletal: General: No deformity. Normal range of motion. Skin: General: Skin is warm and dry. Findings: No rash. Neurological: Mental Status: He is alert and oriented to person, place, and time. Gait: Gait normal. Psychiatric: Mood and Affect: Mood normal. Judgment: Judgment normal. Hemoglobin (g/dL) Date Value 04/03/2022 14.2 HGB (g/dL) Date Value 07/06/2019 15.5 Hematocrit (%) Date Value 04/03/2022 42.3 07/06/2019 45.3 WBC Date Value 04/03/2022 10.63 k/uL 07/06/2019 5.91 thou/cmm Platelet Count Date Value 04/03/2022 247 k/uL 07/06/2019 315 thou/cmm Creatinine Date Value Ref Range Status 04/03/2022 1.09 0.73 - 1.22 mg/dL Final AST Date Value Ref Range Status 04/03/2022 23 14 - 40 U/L Final ALT Date Value Ref Range Status 04/03/2022 21 10 - 54 U/L Final Bilirubin, Total (mg/dL) Date Value 04/03/2022 0.7 Antibody Screen (no units) Date Value 11/28/2021 Negative WBC (k/uL) Date Value 04/03/2022 10.63 RBC (m/uL) Date Value 04/03/2022 5.24 %DIG,%DBS Plan ASSESSMENT/PLAN: 1. Colonic inertia - ICD9: 564.89, ICD10: K59.9 - XR COLON SINGLE CONTRAST We discussed both the options of leaving the ileostomy as well as reversal of this to see how he does with the ileorectal anastomosis. Overall I think his issue was 1 of anatomical abnormality of the colon since he does seem to have some variation of the malrotation. As the rectum is fixed, I think the risk of recurrence of this is low, and think it is reasonable to consider reversal. He did have anorectal manometry previously which showed an intact rectoanal inhibitory response, suggesting that Hirschsprung's is not present. Still we certainly would take some risks to move forward with reversal. We did discuss that there is likely always a backup plan of coming to an end ileostomy which he had fairly good function with, but given his interest in reversal we will proceed with evaluation of the anastomosis with an XR colon study and flexible sigmoidoscopy in anticipation of reversal surgery. INFORMED CONSENT Eunice Vargas Medical Record: [id number] Date: 08/19/2022 Procedure: Flexible sigmoidoscopy followed by ileostomy reversal The risks, benefits and anticipated outcomes of the procedure, the risks and benefits of the alternatives to the procedure and the roles and tasks of the personnel to be involved were discussed with the patient and the patient consents to the procedure and agrees to proceed. I verify that I personally obtained Eunice Liam Vargas's consent. Collin Le MD Dept of [facility] Follow up: Return for Flexible sigmoidoscopy. Collin Le M.D. Please Note: This office note has been created using [employer], a speech recognition software program, and may contain errors including punctuation, grammar, spelling, gender, and inappropriate words or phrases that pertain to the sytem. documented in this encounter [facility] 04-04-2022 History of Presen t illness Narrative TRANSITIONAL CARE MANAGEMENT (TCM) COMMUNITY MONITORING PROGRAM Provider Action/FYI: Pt has colostomy Spoke with patient, denies pain, denies sob, no nausea/vomiting, stoma output back to normal he states, independent with ADL's SUMMARY: Pt discharged from [facility] on 04/03/22. Admitted for: enteritis Contact made with patient: Yes Hi my name is Asha Bey RN and I am calling from the [facility] on behalf of your PCP, Cassie Richardson MD I understand you were recently in the hospital so I am calling to check in with you to ensure you are feeling well now that you're home. May I ask you a few questions related to your hospital stay and well-being? Yes Contact with patient post discharge, spoke to patient. Patient identified by name and . Do you feel your health is BETTER, WORSE, or the SAME since leaving the hospital? Better ACTION TAKEN: Patient indicated symptoms are better or same, no action required. Continue outreach. MEDICATIONS: Many patients have questions or concerns about their medications once they are home. Do you have any questions about taking your medications or which medication you should be on? No Do you need any medication refills at this time, including any of the medications you might take only when needed? No ACTION TAKEN: No action required For RNs or Pharmacy completing outreach ONLY, was a medication review completed? Yes SOCIAL: We would like to make sure you have what you need so that your basics needs are met - including your personal safety, food, housing and medications. Would you like to speak with a social work steam tank operator to help give you support for any of these needs? No It can be normal to feel anxious or down during a time like this. Would you like to talk to a mental health professional about how you have been feeling? No ACTION TAKEN: No action taken DISCHARGE INTRUCTIONS: Your discharge instructions / After Visit Summary (AVS) are important in guiding you through the recovery process. Do you have any questions related to your discharge instructions? No Do you have all the necessary equipment and supplies at home? Yes ACTION TAKEN: No action required I would like to help you schedule a hospital follow-up virtual or telephone visit with your PCP. This is a great way for you to connect with your provider to ensure you have safely transitioned home. If you are agreeable, I will send your request to a project scheduler who will contact and assist you with that appointment. This will give you an opportunity to ask any questions or address any concerns you may have with your PCP. Inform the patient that if they have any questions or concerns prior to that appointment, to call their PCP's office right away. ACTION TAKEN: No action required, patient declines appointment. Your doctor would like us to remind you of the recommendations regarding the coronavirus (Covid19) outbreak: Avoid public places as much as possible. Avoid close contact (within 6 feet) with others you don t live with, especially if they are sick. Stay home if you are sick. Wash your hands regularly for at least 20 seconds with soap and water. Wear a cloth mask in public places to help reduce community spread. Do not go to your Doctor s office unless instructed to do so. For any non-emergency symptoms, call your Doctor s office to get instructions on how to manage (we might recommend a telephone or virtual visit). For emergency symptoms, proceed to Emergency Department as usual but inform them of cough and fever symptoms TAMMY if present (or call on the way if possible). TCM Home Visit Referral Source of Stratification: [facility] Hospital Admission Status: Discharged Readmission Risk Score: 11 SAILAJA Score: 2 Program referral criteria met: Does not meet referral criteria Patient does not qualify for High Risk TCM Home Visit program due to: Does not meet referral criteria Patient does not quality for High Risk TCM Home Visit Program due to: Does not meet referral criteria Preferred contact number: [phone] Is patient staying somewhere other than the listed home address: No Dialysis Patient: No documented in this encounter [facility] documented as of this encounter (statuses as of 03/13/2023) [facility]08-[facility]2022 History of Past illness Narrative* Problem Noted Date Diagnosed Date Resolved Date Sepsis 04/02/2022 01/17/2023 Bowel obstruction 09/21/2021 09/23/2021 documented as of this encounter (statuses as of 03/18/2023) [facility] History of Past illness Narrative* Problem Noted Date Diagnosed Date Resolved Date Sepsis 04/02/2022 01/17/2023 Bowel obstruction 09/21/2021 09/23/2021 documented as of this encounter (statuses as of 03/19/2023) [facility] History of Past illness Narrative* Problem Noted Date Diagnosed Date Resolved Date Sepsis 04/02/2022 01/17/2023 Bowel obstruction 09/21/2021 09/23/2021 documented as of this encounter (statuses as of 04/04/2023) [facility] History of Past illness Narrative* Problem Noted Date Diagnosed Date Resolved Date Sepsis 04/02/2022 01/17/2023 Bowel obstruction 09/21/2021 09/23/2021 documented as of this encounter (statuses as of 04/22/2023) [facility] History of Past illness Narrative* Problem Noted Date Diagnosed Date Resolved Date Sepsis 04/02/2022 01/17/2023 Bowel obstruction 09/21/2021 09/23/2021 documented as of this encounter (statuses as of 06/15/2023) [facility] History of Past illness Narrative* Problem Noted Date Diagnosed Date Resolved Date Sepsis 04/02/2022 01/17/2023 Bowel obstruction 09/21/2021 09/23/2021 documented as of this encounter (statuses as of 07/18/2023) [facility] History of Present illness Narrative* Simone Becerra MD - 03/07/2022 8:03 AM EDT Images from the original note were not included. GASTROENTEROLOGY CONSULT HPI: Eunice Vargas is a 36 year old male who presents for chronic GI dysmotility/colonic inertia. Pt is here with his mother who is an RN. His issues started with SOB (but no abdo pain) that led to ER visit in 05/2021. 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 He had a prolonged ileus after this and continued to have problems postoperatively. Followed with surgeon Dr. Nelson at [facility]. He had a colonoscopy 10 days after the surgery toevaluate the ileus. This was apparently normal. He has ongoing severe bowel dilation and subsequently was diagnosed with colonic inertia based on Sitz marker test. He was seen by Dr. Valdez from GI in 09/2021, and smart pill capsule endoscopy was ordered but it has been denied by his insurance twice. He underwent completion colectomy with ileorectal anastomosis and DLI, extensive lysis of adhesionsand ventral hernia repair as an elective surgery on 12/05/2021. His postop course was complicated byileus. He required TPN for a short period. Current symptoms: Has minimal output from rectum, mucus once every 1-2 weeks. Has diverting loop ileostomy: emptying his stoma about 12 times a day. No melena or hematochezia. Taking Imodium 2mg bid to help slow the output. Now feels much better. The patient is otherwise asymptomatic from a GI perspective. No abdominal pain, nausea or vomiting.No dysphagia, odynophagia or GERD. No weight loss. No jaundice, scleral icterus, dark urine or palestool. He reports issues with chronic abdo distension in the past. But had loose stools, not constipation in the past. Had c-scope in 05/2021: Normal anastomosis, per pt No prior EGD Non-smoker, has 4 drinks/week. 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 No FHx of CRC Great uncle on paternal side had Crohn's PAST MEDICAL HISTORY Diagnosis Date ADHD (attention deficit hyperactivity disorder) Colon immotility colon inertia per pt Lumbar disc herniation with radiculopathy PAST SURGICAL HISTORY Procedure Laterality Date APPENDECTOMY 05/14/2021 w/ 09/13 of colon removed at same time COLONSCOPY SCREENING HIGH RISK 05/25/2021 DENTAL SURGERY PROCEDURE wisdom teeth LAPAROSCOPIC HEMICOLECTOMY 11/10/2021 Dr. Le LUMBAR SPINE FUSN,POST TECH 2019 lumbar spine fusion PAST SURGICAL HISTORY OF Right 09/2021 Hemicolectomy PEG INSERTION_*FL 05/30/2021 PEG tube placed Current Outpatient Medications Medication Sig loperamide (IMODIUM) 2 mg cap(s) Take 1 capsule by mouth three times daily. Miscellaneous Medical Supply Ileostomy supplies: - 1 Box Coloplast One piece Assura drainable pouch OR - 2 boxes Coloplast Tacho red flat wafer # [id number] - 1 box Coloplast Tacho red drainable pouches # 83371 - 1 box Ryan small barrier rings # 7805 - 1 tube stomahesive paste # 2650 - 1 box Coloplast Elastic barrier strips # [id number] - 1 bottle stomahesive powder # 44760 - 1 box adhesive remover wipes - 1 box skin barrier prep wipes # OTC PRODUCT Thc/cbd cookie daily for pain MULTIVITAMIN ORAL Take 1 tablet by mouth once daily. acetaminophen (TYLENOL) 325 mg tablet Take 650 mg by mouth every 6 hours as needed for Pain. (Patient not taking: Reported on 12/31/2021 ) No current facility-administered medications for this visit. ALLERGIES Allergen Reactions Adhesive Tape-Silic* Other: See Comments Large blisters, locally Family history reviewed. No history of colon cancer or IBD. Social History Tobacco Use Smoking status: Never Smoker Smokeless tobacco: Never Used Tobacco comment: cigar 2 - 3 x yearly Vaping Use Vaping Use: Never used Substance Use Topics Alcohol use: Yes Comment: 4 drinks per month Drug use: No Types: Marijuana REVIEW OF SYSTEMS GASTROINTESTINAL: SEE ABOVE URINARY: No dark urine or hematuria unless documented above CARDIOVASCULAR: No chest pain NEUROLOGICAL: No new focal neuro deficits CONSTITUTIONAL: No weight loss or fever unless documented above EYES: No scleral icterus unless documented above EARS, NOSE AND THROAT: No deformities or abnormalities RESPIRATORY: No dyspnea SKIN: No rashes other than documented above ENDOCRINE: No features of hypothyroidism other than those documented above PSYCHIATRIC: No overt bret or psychosis HEMATOLOGIC No bruising or hemarthroses MUSCULOSKELETAL: No myalgias or bony deformities IMMUNOLOGIC: No immune deficits unless documented elsewhere PHYSICAL EXAMINATION: BP 120/75 Pulse 59 Ht 5' 7 (1.70m) Wt 158 lb 1.6 oz (71.7kg) BMI 24.76 kg/(m^2). GENERAL APPEARANCE: Well appearing, alert, in no acute distress, well-hydrated, well nourished. SKIN: Skin color, texture, turgor normal, no suspicious rashes or lesions. EYES: Anicteric sclera. Pupils are equally round and reactive to light. Extraocular movements are intact. NECK: Supple, no adenopathy; thyroid symmetric, normal size, no bruits. LUNGS: No accessory muscle use, no cyanosis, no asymmetric calf swelling, no bony deformity. HEART: Normal JVP, no significant peripheral edema, no thrill ABDOMEN: Abdomen soft, non-tender, non distended. No masses, ascites or hepatosplenomegaly. Midlineincision lap noted. RUQ diverting loop ileostomy with normal stool. EXTREMITIES: No deformities, edema, skin discoloration, clubbing or cyanosis. NEUROLOGIC: Gait normal. Sensation and strength grossly intact. LABS: Lab tests reviewed. Hemoglobin (g/dL) Date Value 12/19/2021 8.3 HGB (g/dL) Date Value 07/06/2019 15.5 Hematocrit (%) Date Value 12/19/2021 26.8 07/06/2019 45.3 WBC Date Value 12/19/2021 6.81 k/uL 07/06/2019 5.91 thou/cmm Platelet Count Date Value 12/19/2021 595 k/uL 07/06/2019 315 thou/cmm Creatinine Date Value Ref Range Status 12/19/2021 0.89 0.73 - 1.22 mg/dL Final AST Date Value Ref Range Status 12/12/2021 11 (L) 14 - 40 U/L Final ALT Date Value Ref Range Status 12/12/2021 5 (L) 10 - 54 U/L Final Bilirubin, Total (mg/dL) Date Value 12/12/2021 0.3 Antibody Screen (no units) Date Value 11/28/2021 Negative WBC (k/uL) Date Value 12/19/2021 6.81 RBC (m/uL) Date Value 12/19/2021 3.04 (L) %DIG,%DBS No results found for: TSH IMAGING: Imaging including X-rays, Ultrasound, CT scans, MRI scans reviewed. GES 07/2021 EVIDENCE OF ACCELERATED RATE OF GASTRIC EMPTYING OF SOLID MEAL. CT abd 09/2021 1. Multiple dilated and fluid-filled loops of bowel, including small and large bowel. Findings are felt to be secondary to an underlying moderate to high-grade obstruction, likely at the site of anastomosis. Old records reviewed if available. 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 He was given a provisional diagnosis of colonic inertia. - GI dysmotility/colonic inertia He reports chronic issues with abdominal distention and occasional diarrhea for most of his life. However, this seems to be overflow diarrhea as his primary issue was constipation. He presented with severe abdominal distention and dyspnea in 05/2021. Imaging revealed transverse colon volvulus and he was taken for emergent extended right hemicolectomy. He has sitz marker studies demonstrating slow transit. Also has anorectal manometry performed. He underwent completion colectomy and ileorectal anastomosis in 11/[address] Le. He now has a diverting loop ileostomy. There are plans for eventual takedown of the ileostomy but he is hoping to do this in spring 2022. Currently, he feels well and does not have any GI issues. His labs are stable and his imaging is as expected given his prior surgeries. No nutritional concerns at this time. Of note, if endoscopic evaluation is needed in the future, I do note that he has evidence of situs inversus. F/U prn Thank you for involving me in the care of this patient. Simone Becerra MD MPH [facility]CPC FACG [facility] Miscellaneous Notes* Telephone Encounter - Leonie Alejandre RN - 01/11/2022 10:50 AM EDT [facility] ONE MONTH FOLLOW UP PHONE CALL PHONE CALL DATE: 01/11/2022 PHONE CALL TIME: 10:50 AM DATE OF SURGERY: 12/05/2021 PROCEDURE: Completion colectomy, diverting loop ileostomy, VHR FOLLOW UP QUESTIONS: 1.) Is your appetite gradually improving? Yes 2.) Is your incision healing well? Yes 3.) Is your ostomy functioning well? Yes 4.) Did you have a good experience with your recent hospital stay? Yes 5.) Have you completed your follow up visit with your surgeon? Yes Patient states he is feeling well. He has no concerns at this time. Encouraged to call MD for any questions/concerns. SIGNATURE: Leonie Alejandre RN DATE: 01/11/2022 TIME: 10:50 AM CONTACT #:[phone] documented in this encounterChildren[facility] Miscellaneous Notes* SN Routine - Lacey Fortune LPN - 01/08/2022 10:05 AM EDT SITUATION: Group Home routine visit completed today. No one else also present during today's visit. patient reports the following: Allergies--reviewed Medications--reviewed current medications Falls--None DME-NONE BACKGROUND: Reason for Home Care: Ostomy teaching ASSESSMENT: SN greeted at door by patient no DME and demonstrates stable gait. Patient appears in no acute distress. Patient/CG concerns verbalized today: Pt concerned over where to order supplies from once he is discharged from homecare. SN placed TC to [facility] to inquire when supplies order was sent to and [facility] was unable to locate any orders for Patient. Patient reports he has already recieved an order but threw away all packing slips. Patient reports he will give the ostomy nurse a call at the hospital who placed the order for Patient. LCTA. HRR. + BS x all 4 quads. Vitals (see flow sheet for details): stable SN findings today: Pt A&Ox 4 and pleasant in conversation. Pt reports he changed the bag this AM without any difficulty. Pt reports stool has been soft/thick brown and at time apple sauce consistency. Pt reports appetite is very good. Patient reports hydration is very good. Pt denies any issueswith urination.Pt denies any coughing or shortness of breath. Pt denies any chest pain or heart palpitations. See intervention summary for education details. Patient demonstrated a need for further skilled SN services for chronic disease management & education and ostomy management & education. Current Discharge plan: self-care RECOMMENDATION: Next visit to focus on (be specific): SN to discharge at next SN visit documented in this encounterChildren[facility] Miscellaneous Notes* HH SN Routine - Maile Caruso RN - 01/01/2022 12:04 PM EDT SITUATION: Group Home routine visit completed today. spouse also present during today's visit. patient reports the following: Allergies--reviewed Medications--full medication reconciliation completed and reviewed current medications Falls--None DME-Reviewed and added to chart BACKGROUND: Reason for Home Care: Patient being seen by skilled nurse for ostomy care and assessment and teaching. ASSESSMENT: SN greeted at door by patient no DME and demonstrates stable gait. Patient appears in no acute distress. Patient/CG concerns verbalized today: Patient performed ostomy care before skilled nurse arrival. No complications. Patient agreeable to discharge at next skilled nurse visit if no other concerns before. Vitals (see flow sheet for details): stable SN findings today: Patient is alert and oreinted and greeted skilled nurse at door upon arrival. Alvital signs are stable. Patient has no new medications. Patient performed all steps of ostomy care independently before skilled nurse arrived. Patient is agreeable to next visit discharge from agencyif next change he performs independently with no issues. Patient will call supply company independently and order future supplies. See intervention summary for education details. Patient demonstrated a need for further skilled SN services for medication education, safety, infection control/prevention and ostomy management & education. Current Discharge plan: self-care RECOMMENDATION: Next visit to focus on (be specific): agency discharge documented in this encounterChildren[facility] History of Present illness Narrative* Collin Le MD - 12/31/2021 9:14 AM EDT Images from the original note were not included. Collin Le M.D. Colon & Rectal Surgery [address] [facility], [address] [place] [address] SUBJECTIVE Eunice Vargas is a 36 year old White male status post completion of abdominal colectomy with diverting loop ileostomy. HPI The patient was referred by Cassie Richardson (Abdiel) [address] [facility] [id number] my recommendation will be sent back. He generally is feeling very well with good stoma function although he does note that the last few days he had what he thinks may have been a GI bug and resultant looser ileostomy output with close to 3 L on Friday. That day he went up on the Imodium from taking 2 tablets a day before meals to taking 4 tablets that day before meals and the stool did slow down somewhat Friday. Today he is much closer to his baseline with almost applesauce thick stools again. He did not have abdominal pain but did have some mild cramping during this weekend. He is not currently note any stools coming from his rectum. Review of Systems Constitutional: Negative for chills, fever and weight loss. HENT: Negative for congestion, ear pain, hearing loss, sinus pain and sore throat. Eyes: Negative for blurred vision, double vision and pain. Respiratory: Negative for cough, shortness of breath and wheezing. Cardiovascular: Negative. Negative for chest pain, palpitations and leg swelling. Gastrointestinal: Negative for abdominal pain, constipation, diarrhea, heartburn, nausea and vomiting. Genitourinary: Negative. Negative for dysuria, frequency and urgency. Musculoskeletal: Negative. Negative for back pain, joint pain and neck pain. Skin: Negative for itching and rash. Neurological: Negative for dizziness, weakness and headaches. Endo/Heme/Allergies: Negative. Negative for environmental allergies. Does not bruise/bleed easily. Psychiatric/Behavioral: Negative for depression and memory loss. The patient is not nervous/anxiousand does not have insomnia. PAST MEDICAL HISTORY Diagnosis Date ADHD (attention deficit hyperactivity disorder) Colon immotility colon inertia per pt Lumbar disc herniation with radiculopathy PAST SURGICAL HISTORY Procedure Laterality Date APPENDECTOMY 05/14/2021 w/ 2/3rd of colon removed at same time COLONSCOPY SCREENING HIGH RISK 05/25/2021 DENTAL SURGERY PROCEDURE wisdom teeth LAPAROSCOPIC HEMICOLECTOMY 11/10/2021 Dr. Le LUMBAR SPINE FUSN,POST TECH 2019 lumbar spine fusion PAST SURGICAL HISTORY OF Right 09/2021 Hemicolectomy PEG INSERTION_*FL 05/30/2021 PEG tube placed Social History Tobacco Use Smoking status: Never Smoker Smokeless tobacco: Never Used Tobacco comment: cigar 2 - 3 x yearly Vaping Use Vaping Use: Never used Substance Use Topics Alcohol use: Yes Comment: 4 drinks per month Drug use: No Types: Marijuana FAMILY HISTORY Problem Relation Age of Onset None Mother Diabetes Father Multiple Sclerosis Maternal Grandmother other (Other macular degeneration) Maternal Grandfather The ROS, medical, surgical, family, and social history were reviewed by Collin Le MD ALLERGIES Allergen Reactions Adhesive Tape-Silic* Other: See Comments Large blisters, locally Current Outpatient Medications Medication Sig Miscellaneous Medical Supply Ileostomy supplies: - 1 Box Coloplast One piece Assura drainable pouch OR - 2 boxes Coloplast [place] red flat wafer # [id number] - 1 box Coloplast [place] red drainable pouches # 54906 - 1 box Ryan small barrier rings # 7805 - 1 tube stomahesive paste # 2650 - 1 box Coloplast Elastic barrier strips # [id number] - 1 bottle stomahesive powder # 28501 - 1 box adhesive remover wipes - 1 box skin barrier prep wipes # OTC PRODUCT Thc/cbd cookie daily for pain MULTIVITAMIN ORAL Take 1 tablet by mouth once daily. loperamide (IMODIUM) 2 mg cap(s) Take 1 capsule by mouth three times daily. metroNIDAZOLE (FLAGYL) 500 mg tablet neomycin 500 mg tablet promethazine (PHENERGAN) 25 mg tablet polyethylene glycol 3350 (MIRALAX) 17 gram packet Take 17 g by mouth twice daily. Dissolve dose in 4 - 8 ounces of liquid and take as directed. Uses 1-2 times daily as needed acetaminophen (TYLENOL) 325 mg tablet Take 650 mg by mouth every 6 hours as needed for Pain. (Patient not taking: Reported on 12/31/2021 ) No current facility-administered medications for this visit. OBJECTIVE BP 111/74 (BP Site: Left Arm, BP Position: Sitting, BP Cuff Size: Regular Adult) Pulse 98 Ht 170.2 cm (5' 7 ) Wt 64 kg (141 lb) BMI 22.08 kg/m BMI 22.08 kg/(m^2) Physical Exam Abdominal: General: There is no distension. Palpations: Abdomen is soft. Tenderness: There is no abdominal tenderness. Comments: Well-healing midline incision without signs of recurrence hernia. Stoma is pink and appropriately sized Neurological: Mental Status: He is alert and oriented to person, place, and time. Psychiatric: Mood and Affect: Mood and affect normal. Judgment: Judgment normal. Hemoglobin (g/dL) Date Value 12/19/2021 8.3 HGB (g/dL) Date Value 07/06/2019 15.5 Hematocrit (%) Date Value 12/19/2021 26.8 07/06/2019 45.3 WBC Date Value 12/19/2021 6.81 k/uL 07/06/2019 5.91 thou/cmm Platelet Count Date Value 12/19/2021 595 k/uL 07/06/2019 315 thou/cmm Creatinine Date Value Ref Range Status 12/19/2021 0.89 0.73 - 1.22 mg/dL Final AST Date Value Ref Range Status 12/12/2021 11 (L) 14 - 40 U/L Final ALT Date Value Ref Range Status 12/12/2021 5 (L) 10 - 54 U/L Final Bilirubin, Total (mg/dL) Date Value 12/12/2021 0.3 Antibody Screen (no units) Date Value 11/28/2021 Negative WBC (k/uL) Date Value 12/19/2021 6.81 RBC (m/uL) Date Value 12/19/2021 3.04 (L) %DIG,%DBS Plan ASSESSMENT/PLAN: 1. Colonic inertia - ICD9: 564.89, ICD10: K59.9 (primary diagnosis) 2. Ventral hernia without obstruction or gangrene - ICD9: 553.20, ICD10: K43.9 Overall I think he is making good progress, he is tolerating a diet and has good control of his stoma output although he may have had a GI virus over the weekend which tested this somewhat, but this is improving. Recommended to him continuing on 2 Imodium a day when his stools have returned to the baseline they were on. He may have to titrate this up at some points. We will plan to see him back when he would like to work toward reversal which he thinks will probably be next year because he has several life events planned for this year that he does not want to bein the hospital inadvertently through. Follow up: Return for When ready to discuss ileostomy reversal. Collin Le M.D. Please Note: This office note has been created using [employer]ucky Box, a speech recognition software program, and may contain errors including punctuation, grammar, spelling, gender, and inappropriate words or phrases that pertain to the sytem. documented in this encounterChildren'[facility]-20-2022 Miscellaneous Notes* SN PRN - Maile Caruso RN - 12/28/2021 9:00 AM EDT SITUATION: Group Home PRN visit completed today. No caregiver present during today's visit. patient reports the following: Allergies--reviewed Medications--full medication reconciliation completed, reviewed current medications and updated medication list: Falls--None BACKGROUND: Reason for Home Care: Ostomy care and teaching Reason for PRN Visit: Patient requested skilled nurse present for observation and teaching when changing ostomy. ASSESSMENT: SN greeted at door by patient no DME and demonstrates stable gait. Patient appears in no acute distress. Patient/CG concerns verbalized today: No new concerns Vitals (see flow sheet for details): stable SN findings today: Patient changed osotomy independently with no cues or assistance. Patient reports he feels he may need one more nursing visit then will be independent. See intervention summary for education details and skills performed. RECOMMENDATION: Next visit to focus on (be specific): ostomy teaching and follow up patient has information to order supplies documented in this encounterChildren'S [facility]05-19-2022 Miscellaneous Notes* SN Routine - Maile Caruso RN - 12/27/2021 12:26 PM EDT SITUATION: Group Home routine visit completed today. spouse also present during today's visit. patient reports the following: Allergies--reviewed Medications--full medication reconciliation completed, reviewed current medications and updated medication list: Falls--None DME-Reviewed and added to chart BACKGROUND: Reason for Home Care: Patient being seen for ostomy teaching and assessment. ASSESSMENT: SN greeted at door by patient no DME and demonstrates stable gait. Patient appears in no acute distress. Patient/CG concerns verbalized today: Vitals (see flow sheet for details): stable SN findings today: See intervention summary for education details. Patient demonstrated a need for further skilled SN services for chronic disease management & education, medication education, wound/skin care, infusion care, labs, safety, infection control/prevention, drain/tube care and urinary catheter care. Current Discharge plan: self-care RECOMMENDATION: Next visit to focus on (be specific): documented in this encounterChildren'S [facility]05-16-2022 Miscellaneous Notes* SN Routine - Maile Caruso RN - 12/24/2021 10:56 AM EDT SITUATION: Group Home routine visit completed today. spouse also present during today's visit. patient reports the following: Allergies--reviewed Medications--full medication reconciliation completed and reviewed current medications Falls--None DME-Reviewed and added to chart BACKGROUND: Reason for Home Care: ASSESSMENT: SN greeted at door by patient no DME and demonstrates stable gait. Patient appears in no acute distress. Patient/CG concerns verbalized today: Patient has no concerns today. His ostomy stayed intact with no leaks or complicatons since last skilled nurse visit. Patient would like to complete ostomy care while skilled nurse observes/assists at today's visit. Vitals (see flow sheet for details): stable SN findings today: Patient is alert and oriented and greeted skilled nurse at door upon arrival . All vital signs are stable. No new medication at this time. Patient reports he has no pain and mild discomfort around stoma. This skilled nurse assisted patient in applying new appliance independently.Patient performed all steps independently with minimal cues. Patient instructed on s/s of complications and how to protect skin and any s/s of excoriation and infection. Patient and spouse verbalize understanding. See intervention summary for education details. Patient demonstrated a need for further skilled SN services for medication education, wound/skin care, safety, infection control/prevention and ostomy management & education. Current Discharge plan: self-care RECOMMENDATION: Next visit to focus on (be specific): documented in this encounterChildren'S [facility]05-13-2022 Miscellaneous Notes* SN SOC - Anna Garber RN - 12/21/2021 8:09 AM EDT SITUATION: Group Home SOC visit completed today. patient reports the following: Allergies--reviewed Medications--full medication reconciliation completed and reviewed current medications Falls--None DME-Reviewed and added to chart BACKGROUND: Discharged/Referral from [facility] on 12/19/21 following treatment for Colonic inertia, S/P 12/05/2021 Ex-lap, completion colectomy, ileorectal anastomosis, diverting loop ileostomy, ventral hernia repair . Pertinent referral information or other diagnoses that may affect plan of care: Attention Deficit Disorder Without Mention of Hyperactivity Plantar Fascial Fibromatosis Obesity, Class I, Bmi 30-34.9 Spondylolisthesis of Lumbar Region Acute Midline Low Back Pain With Left-Sided Sciatica Ileus Following Gastrointestinal Surgery (Hcc) Generalized Abd ominal Pain Malnutrition of Moderate Degree (Hcc) Colonic Inertia ASSESSMENT: SN greeted at door by patient no DME and demonstrates stable gait. Patient appears in no acute distress. Patient lives at home with . Home environment: clean, uncluttered and has pets: cat. SOC booklet reviewed & completed with patient and consent obtained for Home Care services. Patient/CG concerns verbalized today: None Vitals (see flow sheet for details): stable SN findings today: Pt ambulating without any assistve device, gait is strong and steady. Pt is a 36yr old male who lives with his and 2 small girls in a 2 story home. Prior to surgeri independent with all ADl's. Today he is still fairly independent, needs coching with changing ileostomy bag and phlange and applying new ones. Ileostomy is draining brown green liqiuid drainage, know to watch out for volume loss of anymore than 1250 ml to replinsh with increasing fluid intake See intervention summary for education details and skills performed. Plan of care and visit frequency established with patient and plan of care agreed upon. Patient demonstrated a need for further skilled SN services for chronic disease management & education, medication education, wound/skin care and ostomy management & education. RECOMMENDATION: Visit Frequency: 1w1,2w2, 1w6 Need for additional services: Patient agreeable to N/A referrals. Patient declined N/A referrals. Additional concerns to be followed up on: NONE Next visit to focus on (be specific): Changing ileostomy; have pt demonstrate it. documented in this encounterChildren'S [facility]05-12-2022 History of Present illness Narrative* Kylee Owen RN - 12/20/2021 4:39 PM EDT TRANSITIONAL CARE MANAGEMENT ([facility]) COMMUNITY MONITORING PROGRAM Provider Action/FYI: This RN relaying following message/response from Dr. Le to patient , with patient verbalizing understanding: Thank you, he is done with the antibiotics and does not need to be on the imodium at this time. Collin Le MD December 20, 2021 3:38 PM Kylee Owen RN, BSN Care Coordination team * Kylee Owen RN - 12/20/2021 2:48 PM EDT TRANSITIONAL CARE MANAGEMENT (TCM) COMMUNITY MONITORING PROGRAM Provider Action/FYI: [facility] discharge 12-19-21- initial outreach Discharge home with [facility] through [facility] for new ostomy. Epic shows appointment 12-21-21 at 11 AM, however, patient unaware and to call to confirm. Patient calling at 2:22 PM and left voice message for call back. Spoke with patient who is doing better. Noticed ostomy output more watery and with increased output last night, but realized drinking more than recommended 8-10 glasses/day and better now. Reports stool more like consistency told to be expected, with ostomy education done in hospital. No other concerns or complaints voiced. Denies need for referrals or follow up with PCP. Post op follow up 10-31-[address] Rey Le: Patient reports he is currently not taking any medications including any PRN Imodium. This includes Flagyl 500 mg and Neomycin 500 mg listed on AVS sheet with no frequency, and patient reports he is not taking nor ever taken, and not picked up. Please follow up with patient if this is needed. SUMMARY: Pt discharged from on 12-19-21. Admitted for: Colonic inertia. Developed nausea, vomiting post op for elective surgery for ostomy. Contact made with patient: Yes Hi my name is Kylee Owen RN and I am calling [facility] on behalf of your PCP, Cassie Richardson MD I understand you were recently in the hospital so I am calling to check in with you to ensure you are feeling well now that you're home. May I ask you a few questions related to your hospital stay and well-being? Yes Contact with patient post discharge, spoke to patient. Patient identified by name and . Do you feel your health is BETTER, WORSE, or the SAME since leaving the hospital? Better ACTION TAKEN: Patient indicated symptoms are better or same, no action required. Continue outreach. MEDICATIONS: Many patients have questions or concerns about their medications once they are home. Do you have any questions about taking your medications or which medication you should be on? No Do you need any medication refills at this time, including any of the medications you might take only when needed? No ACTION TAKEN: No action required For RNs or Pharmacy completing outreach ONLY, was a medication review completed? Yes SOCIAL: We would like to make sure you have what you need so that your basics needs are met - including your personal safety, food, housing and medications. Would you like to speak with a social work steam tank operator to help give you support for any of these needs? No It can be normal to feel anxious or down during a time like this. Would you like to talk to a mental health professional about how you have been feeling? No ACTION TAKEN: No action taken DISCHARGE INTRUCTIONS: Your discharge instructions / After Visit Summary (AVS) are important in guiding you through the recovery process. Do you have any questions related to your discharge instructions? Yes Do you have all the necessary equipment and supplies at home? Yes ACTION TAKEN: Patient has questions or needs related to the discharge instructions and/or having the necessary equipment and supplies at home. Routed to PCP and indicated in FYI box. I would like to help you schedule a hospital follow-up virtual or telephone visit with your PCP. This is a great way for you to connect with your provider to ensure you have safely transitioned home.If you are agreeable, I will send your request to a project scheduler who will contact and assist you with that appointment. This will give you an opportunity to ask any questions or address any concerns youmay have with your PCP. Inform the patient that if they have any questions or concerns prior to that appointment, to call their PCP's office right away. ACTION TAKEN: No action required, patient declines appointment. Your doctor would like us to remind you of the recommendations regarding the coronavirus (Covid19) outbreak: Avoid public places as much as possible. Avoid close contact (within 6 feet) with others you don t live with, especially if they are sick. Stay home if you are sick. Wash your hands regularly for at least 20 seconds with soap and water. Wear a cloth mask in public places to help reduce community spread. Do not go to your Doctor s office unless instructed to do so. For any non- emergency symptoms, call your Doctor s office to get instructions on how to manage (we might recommend a telephone or virtualvisit). For emergency symptoms, proceed to Emergency Department as usual but inform them of cough and fever symptoms TAMMY if present (or call on the way if possible). Kylee Owen RN, BSN Care Coordination team * Kylee Owen RN - 12/20/2021 1:58 PM EDT TCM Home Visit Referral Source of Stratification: [facility] Admission Status: Discharged Readmission Risk Score: 18 SAILAJA Score: 2 Program referral criteria met: Does not meet referral criteria Patient does not qualify for High Risk TCM Home Visit program due to: Does not meet referral criteria Patient does not quality for High Risk TCM Home Visit Program due to: Does not meet referral criteria Preferred contact number: N/a Is patient staying somewhere other than the listed home address: No Dialysis Patient: No Kylee Owen RN, BSN Care Coordination team TRANSITIONAL CARE MANAGEMENT (TCM) COMMUNITY MONITORING PROGRAM Provider Action/FYI: [facility] discharge 12-19-21- initial outreach - Unable to reach or leave message as mailbox full. Discharge home with [facility] through [facility] for new ostomy SUMMARY: Pt discharged from on 12-19-21. Admitted for: Colonic inertia. Developed nausea, vomiting post op for elective surgery for ostomy. Contact made with patient: No - next outreach attempt will be on next business day Outreach ended Kylee Owen RN, BSN Care Coordination team documented in this encounterChildren'S [facility]04-20-2022 History and physical note * Natalie Shaw APRN.STAPLE FIBER WASHER - 11/28/2021 1:40 PM EDT HISTORY AND PHYSICAL EXAMINATION SERVICE DATE: 11/27/2021 SERVICE TIME: 1:57 PM PRIMARY CARE PHYSICIAN: Cassie Richardson MD REASON FOR VISIT: Eunice Vargas is a 35 year old male who is scheduled for Procedure(s): VENTRAL HERNIA REPAIR (N/A) OPEN COMPLETION COLECTOMY (N/A) at the request of Dr. Collin Le for routine H&P. My final recommendation will be communicated back to the requesting physician by way of shared medical record or letter. Subjective The patient has the following: ACTIVE PROBLEM LIST Attention Deficit Disorder Without Mention of Hyperactivity Plantar Fascial Fibromatosis Obesity, Class I, Bmi 30-34.9 Spondylolisthesis of Lumbar Region Acute Midline Low Back Pain With Left-Sided Sciatica Ileus Following Gastrointestinal Surgery (Hcc) Generalized Abdominal Pain Malnutrition of Moderate Degree (Hcc) COVID-19 Immunization Status COVID-19 VACCINE (Series Information) Completed 07/31/2021 Imm Admin: COVID-19 vaccine, full dose (MODERNA) 12/07/2020 Imm Admin: COVID-19 vaccine, full dose (MODERNA) 11/09/2020 Imm Admin: COVID-19 vaccine, full dose (MODERNA) CHIEF COMPLAINT: Colonic inertia HPI: 35-year-old male presents for presurgical testing. He went to the hospital September 2021 and was found to have severe distention of his colon. He underwent right hemicolectomy. He had some postoperative complications including an ileus. He has improved but continues to have abdominal pain. Pain currently 2/10. It is located across the abdomen. Other symptoms include: none currently. Denies fever, chills, nausea, vomiting, changes in bowel or bladder function. The procedure was recommended and after discussion with his physician he is agreeable. REVIEW OF SYSTEMS: General: No weight loss, malaise or fevers. Neurological: Negative for: dementia, headaches, impaired sensorium, multiple sclerosis, Parkinson's disease, seizures, TIA and strokes. Respiratory: No history of current cough or dyspnea, or pneumonia in the past 6 weeks. No history of respiratory/pulmonary symptoms or problems. Negative for: tobacco use and obstructive sleep apnea. Cardiovascular: No history of HTN requiring medication, no history of angina, CHF, DC, cardiac surgery or stents. Denies rest pain, gangrene or revascularization/amputation for PVD. No history of cardiovascular symptoms or problems. Negative for: AICD/PPM, anticoagulation therapy, arrhythmia, atrial fibrillation, CAD, chest pain, CHF, DVT/PE, hyperlipidemia and hypertension. GI: See HPI Positive for: abdominal pain Negative for: dysphagia, nausea and vomiting. : No history of dysuria, frequency or incontinence, stones or chronic kidney disease. No difficulty urinating, nocturia > 1 time per night or hematuria. Endocrine: No history of diabetes. Has not taken steroids within the past 30 days. No history of endocrinological symptoms or problems. Hematology: No history of bleeding or clotting disorder. Patient is not taking anti-coagulation or platelet medications. No history of hematological symptoms or problems. Oncology: No history of CA metastasis, chemo within 30 days, or radiotherapy within 90 days. No history of oncological symptoms or problems. Psych: Positive for: ADHD. Musculoskeletal: Negative for joint pain or swelling, back pain or muscle pain. Skin: Negative for lesions, rash and itching. PAST MEDICAL HISTORY Diagnosis Date ADHD (attention deficit hyperactivity disorder) Colon immotility colon inertia per pt Lumbar disc herniation with radiculopathy PAST SURGICAL HISTORY Procedure Laterality Date APPENDECTOMY 05/14/2021 w/ 2/3rd of colon removed at same time COLONSCOPY SCREENING HIGH RISK 05/25/2021 DENTAL SURGERY PROCEDURE wisdom teeth LUMBAR SPINE FUSN,POST TECH 2019 lumbar spine fusion PAST SURGICAL HISTORY OF Right 09/2021 Hemicolectomy PEG INSERTION_*FL 05/30/2021 PEG tube placed FAMILY HISTORY Problem Relation Age of Onset None Mother Diabetes Father Multiple Sclerosis Maternal Grandmother other (Other macular degeneration) Maternal Grandfather Social History Tobacco Use Smoking status: Never Smoker Smokeless tobacco: Never Used Tobacco comment: cigar 2 - 3 x yearly Vaping Use Vaping Use: Never used Substance Use Topics Alcohol use: Yes Comment: 4 drinks per month Drug use: No Types: Marijuana Prior to Admission medications as of 11/28/21 1348 Medication Sig Last Dose Taking metroNIDAZOLE (FLAGYL) 500 mg tablet Taking Yes neomycin 500 mg tablet Taking Yes promethazine (PHENERGAN) 25 mg tablet Taking Yes OTC PRODUCT Thc/cbd cookie daily for pain Taking Yes polyethylene glycol 3350 (MIRALAX) 17 gram packet Take 17 g by mouth twice daily. Dissolve dose in 4 - 8 ounces of liquid and take as directed. Uses 1-2 times daily as needed Taking Yes MULTIVITAMIN ORAL Take 1 tablet by mouth once daily. Taking Yes acetaminophen (TYLENOL) 325 mg tablet Take 650 mg by mouth every 6 hours as needed for Pain. TakingYes No medication comments found. ALLERGIES Allergen Reactions Adhesive Tape-Silic* Other: See Comments Large blisters, locally Objective PHYSICAL EXAM: General: alert and oriented and healthy appearance. Pertinent negatives noted - not distressed. Skin: normal color, no rash or lesions. HEENT: No additional findings for patient's neck. Cardiovascular: regular rate and rhythm, normal S1 and S2, no rub, murmurs, or gallop. Respiratory: normal breath sounds, no wheezes or crackles. Abdomen: bowel sounds present, distended, soft and tender. Extremities: no deformity, no edema or tenderness, no joint swelling or clubbing. Neurological: normal cognition and motor skills. PAIN ASSESSMENT: Pain Pain Level: 2 VITALS: BP 103/70 Pulse 95 Temp 98.1 Resp 16 Ht 5' 7 (1.70m) Wt 148 lb (67.1kg) SpO2 96% BMI23.17 kg/(m^2). Diagnostic tests reviewed for today's visit: Lab Value Units Date High Low HB 8.3 g/dL 09/23/2021 17.0 13.0 HCT 26.9 % 09/23/2021 51.0 39.0 WBC 5.40 k/uL 09/23/2021 11.00 3.70 PLT 428 k/uL 09/23/2021 400 150 NA 135 mmol/L 09/23/2021 144 136 K 3.3 mmol/L 09/23/2021 5.1 3.7 GLUC 96 mg/dL 09/23/2021 99 74 BUN 8 mg/dL 09/23/2021 24 9 CREAT 0.71 mg/dL 09/23/2021 1.22 0.73 PTSEC No results within date range. INR No results within date range. APTT No results within date range. ALT 10 U/L 09/23/2021 54 10 AST 7 U/L 09/23/2021 40 14 TBILI 0.3 mg/dL 09/23/2021 1.3 0.2 TSH No results within date range. Lab Value Units Date High Low HCGQT No results within date range. UHCG No results within date range. HCG, BODY* No results within date range. Lab Value Units Date High Low ABORHD No results within date range. ABSCREEN No results within date range. No results found for: HBA1C No results found for this or any previous visit (from the past 8760 hour(s)). No results found for this or any previous visit (from the past [id number] hour(s)). Assessment No problem-specific Assessment & Plan notes found for this encounter. Implantable Devices: back hardware and instrumentation There is no known pertinent medical condition which may affect jean pierre-operative course Patient denies blood thinners Assessment/Plan Diagnosis Colonic inertia [K59.9] PLAN Planned Procedure: Procedure(s): VENTRAL HERNIA REPAIR (N/A) OPEN COMPLETION COLECTOMY (N/A) The Following Tests/Procedures Have Been Initiated: Orders Placed This Encounter CBC Standing Status: Future Standing Expiration Date: 01/28/2022 BASIC METABOLIC PNL Standing Status: Future Standing Expiration Date: 01/28/2022 Type and Screen, 30 day Standing Status: Future Standing Expiration Date: 01/28/2022 Order Specific Question: [facility] or Procedure: Answer: [facility]NIDAZ[facility]LE (FLAGYL) 500 mg tablet neomycin 500 mg tablet promethazine (PHENERGAN) 25 mg tablet Ordered per surgeon in epic: Hemoglobin A1c, COVID Ordered per CUSTOMER SUPPORT EXECUTIVE in [facility]: BMP, CBC, type and screen METS: Climb a flight of stairs or walk up a hill (5.50 METs) DASI Score: 5.5; Patient denies any chest pain or undue shortness of breath with the above physicalactivity. ANESTHESIA FINDINGS: Intubation History: No history of difficult intubation. No abnormal airway history Significant Anesthesia Considerations: none Airway History: No history of difficult airway No abnormal airway history I - PHYSICAL EVALUATION DENTAL Dental findings: teeth intact. II - ANESTHESIA PLAN Anesthetic Plan: general Prepared for Surgery: optimally prepared for surgery. No consults pending CONSULTS: Patient does not require consults for optimization at this time The Following Tests/Procedures Have Been Initiated: Orders Placed This Encounter CBC Standing Status: Future Standing Expiration Date: 01/28/2022 BASIC METABOLIC PNL Standing Status: Future Standing Expiration Date: 01/28/2022 Type and Screen, 30 day Standing Status: Future Standing Expiration Date: 01/28/2022 Order Specific Question: [facility] or Procedure: Answer: [facility] Planned Anesthetic: general Instructions Given to Patient: Instructions located in the after visit summary. Patient given verbal and written preop instructions and voices comprehension and compliance. SIGNATURE: Natalie Shaw APRN.CNP PATIENT NAME: Eunice Vargas DATE: November 27, 2021 TIME: 10:54 AM PAGER/CONTACT #: documented in this encounterChildren'[facility] Instructions* Patient Instructions* Natalie Shaw APRN.CNP - 11/28/2021 1:40 PM EDT PATIENT PREOPERATIVE INSTRUCTIONS Collin Le, * has scheduled you for your procedure at this surgery center: [facility]: [phone], [address], [place] [address] Please read below carefully for your personalized instructions. Date of Surgery: 12/05/2021 Time of surgery: 10:25 AM Arrival Time for Surgery: 8:25 AM Please be aware that emergency situations arise, which may delay or change your surgical time. If this happens, we will notify you as soon as possible and regret any inconvenience. Dietary Restrictions: FOLLOW DIET INSTRUCTIONS PER SAIRA GARCIA Medications: Approved medications can be taken the morning of surgery with a sip of water. AVS was given to patient and specific instructions for each medication reviewed. See medication list. Please continue to take blood pressure medications including day of surgery. Approved medications to take the morning of surgery with a sip of water: blood pressure, heart, thyroid, psych, seizure, and pain medications excluding NSAIDS. Use inhalers as prescribed. Please bring inhalers. Please follow up with the provider that manages your diabetes on how to prepare you for surgery. - Any oral diabetic medications should be held day of surgery. - If you are taking insulin please discuss with prescribing physician for pre op instructions. If you are taking the following medications for Type 2 diabetes: Canagliflozin (INVOKANA), dapagliflozin (FARXIGA), and empagliflozin (JARDIANCE) should each be discontinued at least 3 days before scheduled surgery. Ertugliflozin (STEGLATRO) should be discontinued at least four days before scheduled surgery. If you start any new medications after today's visit, please contact the surgeon's office. Blood Thinning Medications: - Stop NSAIDS (Ibuprofen, Advil, Aleve, Motrin, Celebrex, Mobic, etc.) 7 days before surgery, as directed by your surgeon. - If you take any of the following blood thinners, please contact your surgeon and the physician who prescribes it for you in order to get perioperative instructions as soon as possible Blood thinners: Aspirin,Coumadin, Plavix, Eliquis, Pradaxa, Xarelto, Lovenox, Brilinta, Effient, Savaysa, Arixtra etc. - Stop Vitamin E, fish oil, Ginko, Joao's Wort, flax seed oil, multivitamins, CBD oil, marijuana and other over the counter herbals and dietary supplements 7 days before surgery. - This would not apply to cancer patients who are prescribed Marinol or any other prescription formof marijuana or CBD. Pain Medications: - You may take Tylenol (Acetaminophen) or any of your current prescribed pain medications that do not contain aspirin or NSAIDS as needed. If you take any medications for erectile dysfunction-Cialis (Tadalafil), Levitra, Staxyn (Vardenafil) Viagra (Sildenenafil please do not take these for 48 hours before surgery. If you start any new medications after today's visit, please contact the surgeon's office. Important Reminders: - If you have a stimulator, implant or pump that requires a remote please bring the remote with youday of surgery - If you use CPAP/BIPAP, bring the machine with you to the surgery center. - If you are prescribed inhalers for breathing, continue using them AND bring them to the surgery center. - Candy, mints, gum and tobacco products are NOT permitted the morning of surgery. - Hearing aids, dentures and glasses may be worn the morning of surgery. - NO jewelry, body piercings, makeup, hairpins or contacts are to be worn the day of surgery. - NO keys, wallet, watches, or purses - NO lotion, creams, powders or deodorants on the skin the day of surgery - Wear loose, comfortable clothing that will accommodate bandages. - Your length of stay will be determined by your surgeon - You will need to have someone else (Family or friend) drive you home once discharged from the hospital. You are not allowed to drive yourself home after surgery. - YOU MUST HAVE A RESPONSIBLE FIRE HOSE CURER TAKE YOU HOME. A MANAGER OF SUSTAINABILITY, CAB OR UBER FIRE HOSE CURER CANNOT BE MADEA RESPONSIBLE FIRE HOSE CURER. - We recommend that a responsible person stays with you overnight to take care of you. - You cannot stay in a hotel alone after outpatient surgery. You will not be permitted to have yoursurgery, if you do not have someone to take care of you. --IF you are having a TOTAL KNEE or HIP REPLACEMENT please bring your walker into the building withyou. Surgical scrub given day of PST PER SAIRA GARCIA. Oral hygiene and a shower or bath is required the evening before or the morning of surgery. Use the Hibiclens body wash supplied to you along with the instruction. It is recommended patients have a 72 hour period between getting a vaccine and date of surgery. If you develop symptoms such as a fever, cold, or flu, or have other changes to your health within TWO DAYS of scheduled surgery or the morning of surgery, please contact the surgery center above. All surgical patients that are going to be admitted will have confirmed negative COVID-19 testing prior to their planned procedure. Once tested we ask patients to continue to social distance leading up to their procedure. If you are not going to be admitted, COVID test is no longer required unless the procedure is a bronchoscopy or oral, nasal, pharyngeal, and laryngeal procedure. Please discuss with surgeon if you are not sure if covid testing is required. Update to visitor policy. Current policy will allow for 2 visitors. We are not allowing children inour waiting room. No food or drink is allowed. Everyone must keep their masks on. We are not allowing a visitor in our PACU area unless a minor, property economist or a special circumstance. Each patient isallowed two visitor on the day of surgery/procedure. Visitors will be asked to wear a mask that covers their nose and mouth at all times. The visitors will be allowed to stay with the patient prior to going to surgery/procedure. No visitors are allowed in our recovery room. Personal Belongings: - Leave ALL valuables and money at home or with family members. - You will need a form of ID and insurance card to check in the morning of surgery. - You will have to wear a hospital gown during your stay but if you wish to bring undergarments forafter surgery you may. Our anesthesia department recommends reading Prepare for Surgery, Heal Faster: A Guide of [employer] by Mayi Gonzalez prior to surgery. Natalie Shaw APRN.ANDREW documented in this encounterChildren'S [facility]04-06-2022 Instructions* Patient Instructions* Collin Le MD - 11/14/2021 12:00 PM EDT documented in this encounterChildren'S [facility]04-06-[facility]22 History of Present illness Narrative* Collin Le MD - 11/14/2021 10:48 AM EDT Images from the original note were not included. Collin Le M.D. Colon & Rectal Surgery [address] [facility], [address] [place] [id number] SUBJECTIVE Eunice Vargas is a 35 year old White male with colonic inertia HPI The patient was referred by Cassie Richardson (Abdiel) Uriah Hartman [facility] [id number] my recommendation will be sent back. His symptoms have been slowly progressing and he notes that he has pain every day, usually about a 6-7 level of pain and he is able to walk and eat. He denies nausea but does note that he often has afeeling of gas trapping in his upper abdomen. He tries to burp and is never able to burp. He still has bowel movements every day, usually small and hard and some watery bowel movements, never very regular. Review of Systems Constitutional: Negative for chills, fever and weight loss. HENT: Negative for congestion, ear pain, hearing loss, sinus pain and sore throat. Eyes: Negative for blurred vision, double vision and pain. Respiratory: Negative for cough, shortness of breath and wheezing. Cardiovascular: Negative for chest pain, palpitations and leg swelling. Gastrointestinal: Positive for abdominal pain. Negative for constipation, diarrhea, heartburn, nausea and vomiting. Genitourinary: Negative for dysuria, frequency and urgency. Musculoskeletal: Negative for back pain, joint pain and neck pain. Skin: Negative for itching and rash. Neurological: Positive for weakness. Negative for dizziness and headaches. Endo/Heme/Allergies: Negative for environmental allergies. Does not bruise/bleed easily. Psychiatric/Behavioral: Negative for depression and memory loss. The patient has insomnia. The patient is not nervous/anxious. PAST MEDICAL HISTORY Diagnosis Date Lumbar disc herniation with radiculopathy PAST SURGICAL HISTORY Procedure Laterality Date DENTAL SURGERY PROCEDURE wisdom teeth Social History Tobacco Use Smoking status: Never Smoker Smokeless tobacco: Never Used Tobacco comment: cigar 2 - 3 x yearly Vaping Use Vaping Use: Never used Substance Use Topics Alcohol use: Yes Alcohol/week: 10.0 standard drinks Types: 4 Mixed Drinks per week Drug use: No FAMILY HISTORY Problem Relation Age of Onset None Mother Diabetes Father Multiple Sclerosis Maternal Grandmother other (Other macular degeneration) Maternal Grandfather The ROS, medical, surgical, family, and social history were reviewed by Collin Le MD ALLERGIES Allergen Reactions Adhesive Tape-Silic* Other: See Comments Large blisters, locally Current Outpatient Medications Medication Sig MULTIVITAMIN ORAL Take 1 tablet by mouth once daily. acetaminophen (TYLENOL) 325 mg tablet Take 650 mg by mouth every 6 hours as needed for Pain. No current facility-administered medications for this visit. OBJECTIVE BP 124/76 (BP Site: Right Arm, BP Position: Sitting, BP Cuff Size: Regular Adult) Pulse 95 Temp36.6 C (97.9 F) (Temporal) Ht 170.2 cm (5' 7 ) Wt 69.4 kg (153 lb) BMI 23.96 kg/m BMI 23.96 kg/(m^2) Physical Exam Constitutional: General: He is not in acute distress. Appearance: Normal appearance. He is not ill-appearing. Cardiovascular: Rate and Rhythm: Normal rate and regular rhythm. Heart sounds: No murmur heard. No friction rub. No gallop. Pulmonary: Effort: Pulmonary effort is normal. No respiratory distress. Breath sounds: Normal breath sounds. No wheezing or rales. Abdominal: General: There is distension. Palpations: Abdomen is soft. There is no hepatomegaly. Tenderness: There is abdominal tenderness ( In the bilateral lower quadrants). There is no guarding. Musculoskeletal: General: No deformity. Normal range of motion. Skin: General: Skin is warm and dry. Findings: No rash. Neurological: Mental Status: He is alert and oriented to person, place, and time. Gait: Gait normal. Psychiatric: Mood and Affect: Mood normal. Judgment: Judgment normal. Hemoglobin (g/dL) Date Value 09/23/2021 8.3 HGB (g/dL) Date Value 07/06/2019 15.5 Hematocrit (%) Date Value 09/23/2021 26.9 07/06/2019 45.3 WBC Date Value 09/23/2021 5.40 k/uL 07/06/2019 5.91 thou/cmm Platelet Count Date Value 09/23/2021 428 k/uL 07/06/2019 315 thou/cmm Creatinine Date Value Ref Range Status 09/23/2021 0.71 (L) 0.73 - 1.22 mg/dL Final AST Date Value Ref Range Status 09/23/2021 7 (L) 14 - 40 U/L Final ALT Date Value Ref Range Status 09/23/2021 10 10 - 54 U/L Final Bilirubin, Total (mg/dL) Date Value 09/23/2021 0.3 Antibody Screen (no units) Date Value 07/06/2019 NEGATIVE WBC (k/uL) Date Value 09/23/2021 5.40 RBC (m/uL) Date Value 09/23/2021 3.35 (L) %DIG,%DBS Plan ASSESSMENT/PLAN: 1. Colonic inertia - ICD9: 564.89, ICD10: K59.9 (primary diagnosis) I continue to feel that a completion colectomy with ileorectal anastomosis and diverting loop ileostomy is the next best step, and would like to undertake this as soon as possible. We will try to find earlier surgery dates to move him up if possible. He is still on board with this plan. 2. Ventral hernia without obstruction or gangrene - ICD9: 553.20, ICD10: K43.9 I discussed with him again that we will probably undertake primary repair of this at the time of his surgery which has a higher recurrence risk but I do not want to put mesh in at the time we are undertaking colon resection. If this recurred we could always consider a hernia repair in the future. Follow up: Return for Surgery. Collin Le M.D. Please Note: This office note has been created using [employer], a speech recognition software program, and may contain errors including punctuation, grammar, spelling, gender, and inappropriate words or phrases that pertain to the sytem. documented in this encounterChildren'S [facility]02-11-2022 History of Past illness Narrative* Problem Noted Date Resolved Date Bowel obstruction 09/21/2021 09/23/2021 documented as of this encounter (statuses as of 11/14/2021) [address] History of Past illness Narrative* Problem Noted Date Resolved Date Bowel obstruction 09/21/2021 09/23/2021 documented as of this encounter (statuses as of 11/28/2021) [address] History of Past illness Narrative* Problem Noted Date Resolved Date Bowel obstruction 09/21/2021 09/23/2021 documented as of this encounter (statuses as of 11/28/2021) [address] History of Past illness Narrative* Problem Noted Date Resolved Date Bowel obstruction 09/21/2021 09/23/2021 documented as of this encounter (statuses as of 12/20/2021) [address] History of Past illness Narrative* Problem Noted Date Resolved Date Bowel obstruction 09/21/2021 09/23/2021 documented as of this encounter (statuses as of 12/21/2021) [address] History of Past illness Narrative* Problem Noted Date Resolved Date Bowel obstruction 09/21/2021 09/23/2021 documented as of this encounter (statuses as of 12/25/2021) [address] History of Past illness Narrative* Problem Noted Date Resolved Date Bowel obstruction 09/21/2021 09/23/2021 documented as of this encounter (statuses as of 12/28/2021) [address] History of Past illness Narrative* Problem Noted Date Resolved Date Bowel obstruction 09/21/2021 09/23/2021 documented as of this encounter (statuses as of 12/29/2021) [address] History of Past illness Narrative* Problem Noted Date Resolved Date Bowel obstruction 09/21/2021 09/23/2021 documented as of this encounter (statuses as of 12/31/2021) [address] History of Past illness Narrative* Problem Noted Date Resolved Date Bowel obstruction 09/21/2021 09/23/2021 documented as of this encounter (statuses as of 01/02/2022) [address] History of Past illness Narrative* Problem Noted Date Resolved Date Bowel obstruction 09/21/2021 09/23/2021 documented as of this encounter (statuses as of 01/08/2022) [address] History of Past illness Narrative* Problem Noted Date Resolved Date Bowel obstruction 09/21/2021 09/23/2021 documented as of this encounter (statuses as of 01/11/2022) [address] History of Past illness Narrative* Problem Noted Date Resolved Date Bowel obstruction 09/21/2021 09/23/2021 documented as of this encounter (statuses as of 03/07/2022) [address] History of Past illness Narrative* Problem Noted Date Resolved Date Bowel obstruction 09/21/2021 09/23/2021 documented as of this encounter (statuses as of 04/04/2022) [address] History of Past illness Narrative* Problem Noted Date Resolved Date Bowel obstruction 09/21/2021 09/23/2021 documented as of this encounter (statuses as of 08/19/2022) [address] History of Past illness Narrative* Problem Noted Date Resolved Date Bowel obstruction 09/21/2021 09/23/2021 documented as of this encounter (statuses as of 08/26/2022) [address] History of Past illness Narrative* Problem Noted Date Resolved Date Bowel obstruction 09/21/2021 09/23/2021 documented as of this encounter (statuses as of 09/06/2022) [address] History of Past illness Narrative* Problem Noted Date Resolved Date Bowel obstruction 09/21/2021 09/23/2021 documented as of this encounter (statuses as of 09/06/2022) [address]22 History of Past illness Narrative* Problem Noted Date Resolved Date Bowel obstruction 09/21/2021 09/23/2021 documented as of this encounter (statuses as of 09/17/2022) [address] History of Past illness Narrative* Problem Noted Date Resolved Date Bowel obstruction 09/21/2021 09/23/2021 documented as of this encounter (statuses as of 09/26/2022) [address] History of Past illness Narrative* Problem Noted Date Resolved Date Bowel obstruction 09/21/2021 09/23/2021 documented as of this encounter (statuses as of 09/27/2022) [address] History of Past illness Narrative* Problem Noted Date Resolved Date Bowel obstruction 09/21/2021 09/23/2021 documented as of this encounter (statuses as of 10/03/2022) [address]22 History of Past illness Narrative* Problem Noted Date Resolved Date Bowel obstruction 09/21/2021 09/23/2021 documented as of this encounter (statuses as of 10/16/2022) [address] History of Past illness Narrative* Problem Noted Date Resolved Date Bowel obstruction 09/21/2021 09/23/2021 documented as of this encounter (statuses as of 10/22/2022) [address]22 History of Past illness Narrative* Problem Noted Date Resolved Date Bowel obstruction 09/21/2021 09/23/2021 documented as of this encounter (statuses as of 10/23/2022) [address] History of Past illness Narrative* Problem Noted Date Resolved Date Bowel obstruction 09/21/2021 09/23/2021 documented as of this encounter (statuses as of 10/30/2022) [facility] Narrative* Problem Noted Date Resolved Date Bowel obstruction 09/21/2021 09/23/2021 documented as of this encounter (statuses as of 11/22/2022) [facility] of Past illness Narrative* Problem Noted Date Resolved Date Bowel obstruction 09/21/2021 09/23/2021 documented as of this encounter (statuses as of 12/11/2022) [facility] note* Diagnosis Colonic inertia- Primary Other functional disorders of intestine Ventral hernia without obstruction or gangrene Ventral hernia, unspecified, without mention of obstruction or gangrene Colonic inertia Other functional disorders of intestine [facility] Diagnosis Preop examination- Primary Preoperative examination, unspecified Colonic inertia Other functional disorders of intestine Colonic inertia Other functional disorders of intestine documented in this encounter [facility]* Diagnosis Other specified counseling- Primary Colonic inertia Other functional disorders of intestine [facility] Diagnosis Colonic inertia- Primary Other functional disorders of intestine Ventral hernia without obstruction or gangrene Ventral hernia, unspecified, without mention of obstruction or gangrene [facility] Diagnosis Colonic inertia Other functional disorders of intestine [facility] Diagnosis Colonic inertia- Primary Other functional disorders of intestine documented in this encounter [facility]* Diagnosis Encounter for immunization- Primary Need for other specified prophylactic vaccination against single bacterial disease Screening for lipid disorders Wellness examination [facility] Diagnosis Colonic inertia- Primary Other functional disorders of intestine Colonic inertia Other functional disorders of intestine [facility] Diagnosis Colonic inertia- Primary Other functional disorders of intestine Colonic inertia Other functional disorders of intestine [facility] Diagnosis Colonic inertia Other functional disorders of intestine Colonic inertia Other functional disorders of intestine [facility] Diagnosis Rectal stricture- Primary Stenosis of rectum and anus Colonic inertia Other functional disorders of intestine documented [facility] this [facility]* Diagnosis Colonic inertia Other functional disorders of intestine Colonic inertia Other functional disorders of intestine [facility] Diagnosis Rectal stenosis- Primary Stenosis of rectum and anus [facility] Diagnosis Rectal stenosis Stenosis of rectum and anus [facility]* Diagnosis Rectal stricture Stenosis of rectum and anus [facility]* Diagnosis Pre-op exam- Primary Preoperative examination, unspecified Colonic inertia Other functional disorders of intestine Colonic inertia Other functional disorders of intestine documented [facility] this encounter [facility]* Diagnosis Colonic inertia- Primary Other functional disorders of intestine [facility] Diagnosis Acute left-sided low back pain with left-sided sciatica- Primary Lumbar radiculopathy- Primary Thoracic or lumbosacral neuritis or radiculitis, unspecified [facility] Diagnosis Lumbar radiculopathy- Primary Thoracic or lumbosacral neuritis or radiculitis, unspecified Spinal stenosis of lumbar region without neurogenic claudication Spinal stenosis, lumbar region, without neurogenic claudication [facility] Diagnosis Lumbar radiculopathy Thoracic or lumbosacral neuritis or radiculitis, unspecified [facility] Diagnosis Lumbar radiculopathy- Primary Thoracic or lumbosacral neuritis or radiculitis, unspecified [facility] Diagnosis Spinal stenosis of lumbar region without neurogenic claudication Spinal stenosis, lumbar region, without neurogenic claudication [facility] Diagnosis Acute cough- Primary documented in this encounter [facility] Plan of care note* Visit Details Visit Type -SN ROUTINE Discipline -Group Home Problems Problem Description Start Date Status Goals Interve ntions Risk for skin breakdown Disciplines: Skilled Services 12/21/2021 Active 1 goal linked to scheduled/document ed intervention 1 goal intervention scheduled/documente d in this visit Physician Specific Parameters Disciplines: Skilled Services 12/21/2021 Active 1 goal linked to scheduled/document ed intervention 2 goal interventions scheduled/documente d in this visit Risk for Falls Disciplines: Skilled Services 12/21/2021 Active 1 goal linked to scheduled/document ed intervention 1 goal intervention scheduled/documente d in this visit Pain Disciplines: Skilled Services 12/21/2021 Active 1 goal linked to scheduled/document ed intervention 1 goal intervention scheduled/documente d in this visit Nutrition/Hydra tion Disciplines: Skilled Services 12/21/2021 Active 1 goal linked to scheduled/document ed intervention 1 goal intervention scheduled/documente d in this visit Discharge Disciplines: Skilled Services 12/21/2021 Active 1 goal linked to scheduled/document ed intervention 1 goal intervention scheduled/documente d in this visit Advance Directives Disciplines: Skilled Services 12/21/2021 Active 1 goal linked to scheduled/document ed intervention 1 goal intervention scheduled/documente d in this visit SN Gastrointestina l Disciplines: SN 12/21/2021 Active 1 goal linked to scheduled/document ed intervention 3 goal interventions scheduled/documente d in this visit Goals Goal Associated Problem Outcome Goal Met? Visit Notes Manage risk for skin breakdown Description: Patient/caregiver will verbalize and demonstrate understanding of the risks and measures to be taken to monitor and prevent skin breakdown by 01/08/22. Risk for skin breakdown No Patient to maintain parameters within physician-specified ranges Physician Specific Parameters No Manage Risk for falls Description: Patient/caregiver will verbalize knowledge of individualized fall prevention strategies by 01/08/22. Risk for Falls No Manage Pain Description: Patient/caregiver will verbalize knowledge and understanding of appropriate techniques to control pain, including pain medication. Patient will verbalize or demonstrate an acceptable level of pain as evidenced by a pain score of 5/10 and improvement in ability to perform activities of daily living to be achieved by 01/08/22 Pain No Manage Nutrition/Hydration Description: Patient/caregiver will verbalize/demonstrate knowledge of prescribed diet and/or healthy nutrition. Nutrition/Hydration No Manage discharge planning Description: Patient/caregiver will verbalize understanding of ongoing discharge plan provided related to disease management, arrangements for outpatient and/or community services, obtaining medications, supplies, and DME, as needed. Discharge No Patient/caregiver will make healthcare providers aware of Advance Directives Advance Directives No Patient/Caregiver will verbalize understanding and management of gastrointestinal disease/condition SN Gastrointestinal No Interventions Intervention Associated Problem/Goal Status Variance Visit Notes Instruct on the risks and measures to be taken to prevent skin breakdown Description: Patient's Vasquez Score is: 22. A Vasquez score <= to 18 indicates risk for skin breakdown. Has new ileosotomy, skin can become irritated under phlange/bag Problem:Risk for skin breakdown Goal:Manage risk for skin breakdown Completed patient instructed on maintaining skin integrity including: Routine skin care Evaluation for pressure reduction surfaces completed for chair and recommendations made. Weight Description: Notify Dr. Collin Le of weight change of 1-2 lbs. Problem:Physician Specific Parameters Goal:Patient to maintain parameters within physician-specified ranges Completed Temperature Description: Notify Dr. Collin Le if temp > 100.1 Problem:Physician Specific Parameters Goal:Patient to maintain parameters within physician-specified ranges Completed Instruct on individual fall risk factors and strategies to prevent falls and injuries caused by falls. Problem:Risk for Falls Goal:Manage Risk for falls Completed SN: Patient instructed on Managing Pain: Recommended pain medication schedule and management of side effects to minimize fall risk Reducing Medication Risks: Recommended medication schedule and instructed on management of side effects to minimize fall risk and injuries caused by falls Instruct on pain and instruct on strategies to control pain Problem:Pain Goal:Manage Pain Completed patient instructed on techniques to control pain including Pharmacological measures and Non-Pharmacological measures; rest, positioning/elevation, mobility/therapeutic exercise, distraction and breathing/relaxation. Define patient s appetite/hydration status and implement strategies to improve compliance with prescribed diet and/or healthy nutrition. Problem:Nutrition/Hydra tion Goal:Manage Nutrition/Hydration Completed instructed patient on implementing strategies to comply with prescribed diet, healthy nutrition and adequate hydration Instruct on ongoing discharge plan Problem:Discharge Goal:Manage discharge planning Completed Ongoing Discharge plan: Discharge plan discussed with patient including frequency and duration for home SN and plan for transition to: live independently at home without ongoing services. Determine patient's Advance Directive Status Description: Patient does not have advance directives. Patient/Caregiver declined Advance Directive information. Problem:Advance Directives Goal:Patient/caregiver will make healthcare providers aware of Advance Directives Completed Discussed Advance Directives with Patient and/or Caregiver. Referred patient to Home Care handbook for further information on Healthcare DPOA & Living Will. Ostomy: Complete Pouch Change Description: Pouch to be changed: 2x a week and PRN. Pouch procedure: Remove old pouch, complete peristomal care, use skin prep, powder, barrier strips and two piece, adjust ostomy procedure as needed for leaking/fit complications. Problem:SN Gastrointestinal Goal:Patient/Caregiver will verbalize understanding and management of gastrointestinal disease/condition Completed Ostomy: Instruct Patient/Caregiver on Ostomy management Problem:SN Gastrointestinal Goal:Patient/Caregiver will verbalize understanding and management of gastrointestinal disease/condition Completed patient instructed on the following: emptying and rinsing pouch, pouch removal, pouch change, disposal of used pouch and appliance, peristomal skin care and ostomy precautions. Inflammatory Bowel Disease: Instruct patient/caregiver on measures to manage symptoms and prevent exacerbations Description: Instruct patient/caregiver on inflammatory bowel disease of Colonic inertia. Problem:SN Gastrointestinal Goal:Patient/Caregiver will verbalize understanding and management of gastrointestinal disease/condition Completed patient instructed on the following: take medications as prescribed, eat a low residue diet and avoid dairy products, fiber-rich foods such as fresh fruits, vegetables and whole grains, avoid spicy foods and caffeinated drinks and avoid dehydration and drink plenty of water documented in this encounter [facility] Plan of care note* Visit Details Visit Type -SN PRN VISIT Discipline -Group Home Problems Problem Description Start Date Status Goals Interve ntions Risk for skin breakdown Disciplines: Skilled Services 12/21/2021 Active 1 goal linked to scheduled/document ed intervention 1 goal intervention scheduled/documente d in this visit Physician Specific Parameters Disciplines: Skilled Services 12/21/2021 Active 1 goal linked to scheduled/document ed intervention 2 goal interventions scheduled/documente d in this visit Risk for Falls Disciplines: Skilled Services 12/21/2021 Active 1 goal linked to scheduled/document ed intervention 1 goal intervention scheduled/documente d in this visit Pain Disciplines: Skilled Services 12/21/2021 Active 1 goal linked to scheduled/document ed intervention 1 goal intervention scheduled/documente d in this visit Nutrition/Hydra tion Disciplines: Skilled Services 12/21/2021 Active 1 goal linked to scheduled/document ed intervention 1 goal intervention scheduled/documente d in this visit Discharge Disciplines: Skilled Services 12/21/2021 Active 1 goal linked to scheduled/document ed intervention 1 goal intervention scheduled/documente d in this visit Advance Directives Disciplines: Skilled Services 12/21/2021 Active 1 goal linked to scheduled/document ed intervention 1 goal intervention scheduled/documente d in this visit SN Gastrointestina l Disciplines: SN 12/21/2021 Active 1 goal linked to scheduled/document ed intervention 3 goal interventions scheduled/documente d in this visit Goals Goal Associated Problem Outcome Goal Met? Visit Notes Manage risk for skin breakdown Description: Patient/caregiver will verbalize and demonstrate understanding of the risks and measures to be taken to monitor and prevent skin breakdown by 01/08/22. Risk for skin breakdown No Patient to maintain parameters within physician-specified ranges Physician Specific Parameters No Manage Risk for falls Description: Patient/caregiver will verbalize knowledge of individualized fall prevention strategies by 01/08/22. Risk for Falls No Manage Pain Description: Patient/caregiver will verbalize knowledge and understanding of appropriate techniques to control pain, including pain medication. Patient will verbalize or demonstrate an acceptable level of pain as evidenced by a pain score of 5/10 and improvement in ability to perform activities of daily living to be achieved by 01/08/22 Pain No Manage Nutrition/Hydration Description: Patient/caregiver will verbalize/demonstrate knowledge of prescribed diet and/or healthy nutrition. Nutrition/Hydration No Manage discharge planning Description: Patient/caregiver will verbalize understanding of ongoing discharge plan provided related to disease management, arrangements for outpatient and/or community services, obtaining medications, supplies, and DME, as needed. Discharge No Patient/caregiver will make healthcare providers aware of Advance Directives Advance Directives No Patient/Caregiver will verbalize understanding and management of gastrointestinal disease/condition SN Gastrointestinal No Interventions Intervention Associated Problem/Goal Status Variance Visit Notes Instruct on the risks and measures to be taken to prevent skin breakdown Description: Patient's Vasquez Score is: 22. A Vasquez score <= to 18 indicates risk for skin breakdown. Has new ileosotomy, skin can become irritated under phlange/bag Problem:Risk for skin breakdown Goal:Manage risk for skin breakdown Completed patient instructed on maintaining skin integrity including: Routine skin care Evaluation for pressure reduction surfaces completed for chair and recommendations made. Weight Description: Notify Dr. Collin Le of weight change of 1-2 lbs. Problem:Physician Specific Parameters Goal:Patient to maintain parameters within physician-specified ranges Completed Temperature Description: Notify Dr. Collin Le if temp > 100.1 Problem:Physician Specific Parameters Goal:Patient to maintain parameters within physician-specified ranges Completed Instruct on individual fall risk factors and strategies to prevent falls and injuries caused by falls. Problem:Risk for Falls Goal:Manage Risk for falls Completed SN: Patient instructed on Reducing Medication Risks: Recommended medication schedule and instructed on management of side effects to minimize fall risk and injuries caused by falls Safety precautions for orthostatic hypotension Instruct on pain and instruct on strategies to control pain Problem:Pain Goal:Manage Pain Completed patient instructed on techniques to control pain including Pharmacological measures and Non-Pharmacological measures; rest. Define patient s appetite/hydration status and implement strategies to improve compliance with prescribed diet and/or healthy nutrition. Problem:Nutrition/Hydra tion Goal:Manage Nutrition/Hydration Completed instructed patient on implementing strategies to comply with prescribed diet, healthy nutrition and adequate hydration Instruct on ongoing discharge plan Problem:Discharge Goal:Manage discharge planning Completed Ongoing Discharge plan: Discharge plan discussed with patient including frequency and duration for home SN and plan for transition to: live independently at home without ongoing services. Determine patient's Advance Directive Status Description: Patient does not have advance directives. Patient/Caregiver declined Advance Directive information. Problem:Advance Directives Goal:Patient/caregiver will make healthcare providers aware of Advance Directives Completed Discussed Advance Directives with Patient and/or Caregiver. Referred patient to Home Care handbook for further information on Healthcare DPOA & Living Will. Ostomy: Complete Pouch Change Description: Pouch to be changed: 2x a week and PRN. Pouch procedure: Remove old pouch, complete peristomal care, use skin prep, powder, barrier strips and two piece, adjust ostomy procedure as needed for leaking/fit complications. Problem:SN Gastrointestinal Goal:Patient/Caregiver will verbalize understanding and management of gastrointestinal disease/condition Completed Ostomy: Instruct Patient/Caregiver on Ostomy management Problem:SN Gastrointestinal Goal:Patient/Caregiver will verbalize understanding and management of gastrointestinal disease/condition Completed patient instructed on the following: emptying and rinsing pouch, pouch removal, pouch change, disposal of used pouch and appliance, peristomal skin care and ostomy precautions. Inflammatory Bowel Disease: Instruct patient/caregiver on measures to manage symptoms and prevent exacerbations Description: Instruct patient/caregiver on inflammatory bowel disease of Colonic inertia. Problem:SN Gastrointestinal Goal:Patient/Caregiver will verbalize understanding and management of gastrointestinal disease/condition Completed patient instructed on the following: take medications as prescribed, eat a low residue diet and avoid dairy products, fiber-rich foods such as fresh fruits, vegetables and whole grains, avoid spicy foods and caffeinated drinks and avoid dehydration and drink plenty of water [facility] Visit Details Visit Type -SN ROUTINE Discipline -Group Home Problems Problem Description Start Date Status Goals Interve ntions Risk for skin breakdown Disciplines: Skilled Services 12/21/2021 Active 1 goal linked to scheduled/document ed intervention 1 goal intervention scheduled/documente d in this visit Physician Specific Parameters Disciplines: Skilled Services 12/21/2021 Active 1 goal linked to scheduled/document ed intervention 2 goal interventions scheduled/documente d in this visit Risk for Falls Disciplines: Skilled Services 12/21/2021 Active 1 goal linked to scheduled/document ed intervention 1 goal intervention scheduled/documente d in this visit Pain Disciplines: Skilled Services 12/21/2021 Active 1 goal linked to scheduled/document ed intervention 1 goal intervention scheduled/documente d in this visit Nutrition/Hydra tion Disciplines: Skilled Services 12/21/2021 Active 1 goal linked to scheduled/document ed intervention 1 goal intervention scheduled/documente d in this visit Discharge Disciplines: Skilled Services 12/21/2021 Active 1 goal linked to scheduled/document ed intervention 1 goal intervention scheduled/documente d in this visit Advance Directives Disciplines: Skilled Services 12/21/2021 Active 1 goal linked to scheduled/document ed intervention 1 goal intervention scheduled/documente d in this visit SN Gastrointestina l Disciplines: SN 12/21/2021 Active 1 goal linked to scheduled/document ed intervention 3 goal interventions scheduled/documente d in this visit Goals Goal Associated Problem Outcome Goal Met? Visit Notes Manage risk for skin breakdown Description: Patient/caregiver will verbalize and demonstrate understanding of the risks and measures to be taken to monitor and prevent skin breakdown by 01/08/22. Risk for skin breakdown No Patient to maintain parameters within physician-specified ranges Physician Specific Parameters No Manage Risk for falls Description: Patient/caregiver will verbalize knowledge of individualized fall prevention strategies by 01/08/22. Risk for Falls No Manage Pain Description: Patient/caregiver will verbalize knowledge and understanding of appropriate techniques to control pain, including pain medication. Patient will verbalize or demonstrate an acceptable level of pain as evidenced by a pain score of 5/10 and improvement in ability to perform activities of daily living to be achieved by 01/08/22 Pain No Manage Nutrition/Hydration Description: Patient/caregiver will verbalize/demonstrate knowledge of prescribed diet and/or healthy nutrition. Nutrition/Hydration No Manage discharge planning Description: Patient/caregiver will verbalize understanding of ongoing discharge plan provided related to disease management, arrangements for outpatient and/or community services, obtaining medications, supplies, and DME, as needed. Discharge No Patient/caregiver will make healthcare providers aware of Advance Directives Advance Directives No Patient/Caregiver will verbalize understanding and management of gastrointestinal disease/condition SN Gastrointestinal No Interventions Intervention Associated Problem/Goal Status Variance Visit Notes Instruct on the risks and measures to be taken to prevent skin breakdown Description: Patient's Vasquez Score is: 22. A Vasquez score <= to 18 indicates risk for skin breakdown. Has new ileosotomy, skin can become irritated under phlange/bag Problem:Risk for skin breakdown Goal:Manage risk for skin breakdown Completed patient instructed on maintaining skin integrity including: Routine skin care Evaluation for pressure reduction surfaces completed for chair and recommendations made. Weight Description: Notify Dr. Collin Le of weight change of 1-2 lbs. Problem:Physician Specific Parameters Goal:Patient to maintain parameters within physician-specified ranges Completed Temperature Description: Notify Dr. Collin Le if temp > 100.1 Problem:Physician Specific Parameters Goal:Patient to maintain parameters within physician-specified ranges Completed Instruct on individual fall risk factors and strategies to prevent falls and injuries caused by falls. Problem:Risk for Falls Goal:Manage Risk for falls Completed SN: Patient instructed on Reducing Medication Risks: Recommended medication schedule and instructed on management of side effects to minimize fall risk and injuries caused by falls Instruct on pain and instruct on strategies to control pain Problem:Pain Goal:Manage Pain Completed patient instructed on techniques to control pain including Pharmacological measures. Define patient s appetite/hydration status and implement strategies to improve compliance with prescribed diet and/or healthy nutrition. Problem:Nutrition/Hydra tion Goal:Manage Nutrition/Hydration Completed instructed patient on implementing strategies to comply with prescribed diet, healthy nutrition and adequate hydration Instruct on ongoing discharge plan Problem:Discharge Goal:Manage discharge planning Completed Ongoing Discharge plan: Discharge plan discussed with patient including frequency and duration for home SN and plan for transition to: live independently at home without ongoing services. Determine patient's Advance Directive Status Description: Patient does not have advance directives. Patient/Caregiver declined Advance Directive information. Problem:Advance Directives Goal:Patient/caregiver will make healthcare providers aware of Advance Directives Completed Discussed Advance Directives with Patient and/or Caregiver. Referred patient to Home Care handbook for further information on Healthcare DPOA & Living Will. Ostomy: Complete Pouch Change Description: Pouch to be changed: 2x a week and PRN. Pouch procedure: Remove old pouch, complete peristomal care, use skin prep, powder, barrier strips and two piece, adjust ostomy procedure as needed for leaking/fit complications. Problem:SN Gastrointestinal Goal:Patient/Caregiver will verbalize understanding and management of gastrointestinal disease/condition Completed Ostomy: Instruct Patient/Caregiver on Ostomy management Problem:SN Gastrointestinal Goal:Patient/Caregiver will verbalize understanding and management of gastrointestinal disease/condition Completed patient instructed on the following: emptying and rinsing pouch, pouch removal, pouch change, disposal of used pouch and appliance, peristomal skin care and ostomy precautions. Inflammatory Bowel Disease: Instruct patient/caregiver on measures to manage symptoms and prevent exacerbations Description: Instruct patient/caregiver on inflammatory bowel disease of Colonic inertia. Problem:SN Gastrointestinal Goal:Patient/Caregiver will verbalize understanding and management of gastrointestinal disease/condition Completed patient instructed on the following: take medications as prescribed, eat a low residue diet and avoid dairy products, fiber-rich foods such as fresh fruits, vegetables and whole grains, avoid spicy foods and caffeinated drinks and avoid dehydration and drink plenty of water documented in this encounter [facility] Plan of care note* Visit Details Visit Type -SN ROUTINE Discipline -Group Home Problems Problem Description Start Date Status Goals Interve ntions Physician Specific Parameters Disciplines: Skilled Services 12/21/2021 Active 1 goal linked to scheduled/document ed intervention 2 goal interventions scheduled/documente d in this visit Pain Disciplines: Skilled Services 12/21/2021 Active 1 goal linked to scheduled/document ed intervention 1 goal intervention scheduled/documente d in this visit Nutrition/Hydra tion Disciplines: Skilled Services 12/21/2021 Active 1 goal linked to scheduled/document ed intervention 1 goal intervention scheduled/documente d in this visit Discharge Disciplines: Skilled Services 12/21/2021 Active 1 goal linked to scheduled/document ed intervention 1 goal intervention scheduled/documente d in this visit SN Gastrointestina l Disciplines: SN 12/21/2021 Active 1 goal linked to scheduled/document ed intervention 1 goal intervention scheduled/documente d in this visit Goals Goal Associated Problem Outcome Goal Met? Visit Notes Patient to maintain parameters within physician-specified ranges Physician Specific Parameters No Manage Pain Description: Patient/caregiver will verbalize knowledge and understanding of appropriate techniques to control pain, including pain medication. Patient will verbalize or demonstrate an acceptable level of pain as evidenced by a pain score of 5/10 and improvement in ability to perform activities of daily living to be achieved by 01/08/22 Pain No Manage Nutrition/Hydration Description: Patient/caregiver will verbalize/demonstrate knowledge of prescribed diet and/or healthy nutrition. Nutrition/Hydration No Manage discharge planning Description: Patient/caregiver will verbalize understanding of ongoing discharge plan provided related to disease management, arrangements for outpatient and/or community services, obtaining medications, supplies, and DME, as needed. Discharge No Patient/Caregiver will verbalize understanding and management of gastrointestinal disease/condition SN Gastrointestinal No Interventions Intervention Associated Problem/Goal Status Variance Visit Notes Weight Description: Notify Dr. Collin Le of weight change of 1-2 lbs. Problem:Physician Specific Parameters Goal:Patient to maintain parameters within physician-specified ranges Completed Temperature Description: Notify Dr. Collin Le if temp > 100.1 Problem:Physician Specific Parameters Goal:Patient to maintain parameters within physician-specified ranges Completed Instruct on pain and instruct on strategies to control pain Problem:Pain Goal:Manage Pain Completed patient instructed on techniques to control pain including Pharmacological measures. Define patient s appetite/hydration status and implement strategies to improve compliance with prescribed diet and/or healthy nutrition. Problem:Nutrition/Hydra tion Goal:Manage Nutrition/Hydration Completed instructed patient on implementing strategies to comply with prescribed diet, healthy nutrition and adequate hydration Instruct on ongoing discharge plan Problem:Discharge Goal:Manage discharge planning Completed Ongoing Discharge plan: Discharge plan discussed with patient including frequency and duration for home SN and plan for transition to: live independently at home without ongoing services. Ostomy: Instruct Patient/Caregiver on Ostomy management Problem:SN Gastrointestinal Goal:Patient/Caregiver will verbalize understanding and management of gastrointestinal disease/condition Completed patient instructed on the following: pouch change, peristomal skin care and ostomy precautions. documented in this encounter [facility] for referral (narrative)* Diagnostic Procedure Only (Routine) - Pending Review Specialty Diagnoses / Procedures Referred By Contjoan t Referred To Contact XR IMAGING Diagnoses Colonic inertia Procedures XR COLON SINGLE CONTRAST RADIOLOGIC EXAM COLON SINGLE CONTRAST STUDY Collin Le MD [address] [address] Xr Imaging Referral ID Status Reason Start Date Expiration Date Visits Requested Visits Authorized [id number] Pending Review Auto-Generat ed Referral 08/19/2022 09/18/2023 1 1 ZY [facility] for referral (narrative)* Outpatient Procedure (Routine) - Pending Review Specialty Diagnoses / Procedures Referred By Contac t Referred To Contact [facility] Diagnoses Colonic inertia Procedures SIGMOIDOSCOPY SIGMOIDOSCOPY FLX DX W/COLLJ SPEC BR/WA IF Collin Moreira MD [address] [address] [facility] [address] [place] [address] Referral ID Status Reason Start Date Expiration Date Visits Requested Visits Authorized [id number] Pending Review Auto-Generat ed Referral 09/06/2022 09/06/2023 1 1 [facility] for referral (narrative)* Diagnostic Procedure Only (Routine) - Closed Specialty Diagnoses / Procedures [facility] Referred To Contact XR IMAGING Diagnoses Colonic inertia Procedures XR COLON SINGLE CONTRAST RADIOLOGIC EXAM COLON SINGLE CONTRAST STUDY Collin Le MD [address] [address] Xr Imaging Referral ID Status Reason Start Date Expiration Date V isits Requested Visits Authorized [id number] Closed Auto-Generate d Referral 08/19/2022 09/18/2023 1 1 [facility] for referral (narrative)* Outpatient Procedure (Routine) - Pending Review Specialty Diagnoses / Procedures Referred By Contac t Referred To Contact [facility] Diagnoses Rectal stricture Procedures SIGMOIDOSCOPY SIGMOIDOSCOPY FLX DX W/COLLJ SPEC BR/WA IF Daren Coronado MD [address] [place] [address] [facility] [address] [place] [address] Referral ID Status Reason Start Date Expiration Date Visits Requested Visits Authorized [id number] Pending Review Auto-Generat ed Referral 09/26/2022 09/26/2023 1 1 [facility] for referral (narrative)* Outpatient Procedure (Routine) - Closed Specialty Diagnoses / Procedures Referred By Contac t Referred To Contact Diagnoses Colonic inertia Procedures SIGMOIDOSCOPY SIGMOIDOSCOPY FLX DX W/COLLJ SPEC BR/WA IF Collin Moreira MD [address] [facility] [address] [place] [address] [facility] [address] [facility] [address] [place] [address] Referral ID Status Reason Start Date Expiration Date V isits Requested Visits Authorized [id number] Closed Auto-Generate d Referral 09/06/2022 09/06/2023 1 1 [facility] for referral (narrative)* Outpatient Procedure (Routine) - Authorized Specialty Diagnoses / Procedures [facility] Referred To Contact [facility] Diagnoses Rectal stenosis Procedures SIGMOIDOSCOPY SIGMOIDOSCOPY FLX DX W/COLLJ SPEC BR/WA IF Daren Coronado MD [address] [facility] [place] [address] [address] Referral ID Status Reason Start Date Expiration Date Visits Requested Visits Authorized [id number] Authorized Auto-Generat ed Referral 10/16/2022 10/17/2023 1 1 [facility] for referral (narrative)* Outpatient Procedure (Routine) - Closed Specialty Diagnoses / Procedures Referred By Contac t Referred To Contact [facility] Diagnoses Rectal stenosis Procedures SIGMOIDOSCOPY SIGMOIDOSCOPY FLX DX W/COLLJ SPEC BR/WA IF Daren Coronado MD [address] [facility] [place] [address] [address] Referral ID Status Reason Start Date Expiration Date V isits Requested Visits Authorized [id number] Closed Auto-Generate d Referral 10/16/2022 10/17/2023 1 1 [facility] for referral (narrative)* Outpatient Procedure (Routine) - Closed Specialty Diagnoses / Procedures Referred By Contjoan t Referred To Contact [facility] Diagnoses Rectal stricture Procedures SIGMOIDOSCOPY SIGMOIDOSCOPY FLX DX W/COLLJ SPEC BR/WA IF Daren Coronado MD [address] [place] [address] [facility] [address] [place] [address] Referral ID Status Reason Start Date Expiration Date V isits Requested Visits Authorized [id number] Closed Auto-Generate d Referral 10/23/2022 10/24/2023 1 1 [facility] for visit Narrative* Diagnostic Procedure Only (Routine) - Closed Specialty Diagnoses / Procedures [facility] Referred To Contact XR IMAGING Diagnoses Colonic inertia Procedures XR COLON SINGLE CONTRAST RADIOLOGIC EXAM COLON SINGLE CONTRAST STUDY Collin Le MD [address] [place] [address] Xr Imaging Referral ID Status Reason Start Date Expiration Date V isits Requested Visits Authorized [id number] Closed Auto-Generate d Referral 08/19/2022 09/18/2023 1 1 [facility] for visit Narrative* Outpatient Procedure (Routine) - Closed Specialty Diagnoses / Procedures [facility] Referred To Contact Diagnoses Colonic inertia Procedures SIGMOIDOSCOPY SIGMOIDOSCOPY FLX DX W/COLLJ SPEC BR/WA IF Collin Moreira MD [address] [place] [address] [facility] [address] [place] [address] Referral ID Status Reason Start Date Expiration Date V isits Requested Visits Authorized [id number] Closed Auto-Generate d Referral 09/06/2022 09/06/2023 1 1 [facility] for visit Narrative* Outpatient Procedure (Routine) - Closed Specialty Diagnoses / Procedures Referred By Contac t Referred To Contact [facility] Diagnoses Rectal stenosis Procedures SIGMOIDOSCOPY SIGMOIDOSCOPY FLX DX W/COLLJ SPEC BR/WA IF Daren Coronado MD [address] [place] [address] [address] Referral ID Status Reason Start Date Expiration Date V isits Requested Visits Authorized [id number] Closed Auto-Generate d Referral 10/16/2022 10/17/2023 1 1 [facility] for visit Narrative* Outpatient Procedure (Routine) - Closed Specialty Diagnoses / Procedures Referred By Merissa t Referred To Contact [facility] Diagnoses Rectal stricture Procedures SIGMOIDOSCOPY SIGMOIDOSCOPY FLX DX W/COLLJ SPEC BR/WA IF Daren Coronado MD [address] [place] [address] [address] Referral ID Status Reason Start Date Expiration Date V isits Requested Visits Authorized [id number] Closed Auto-Generate d Referral 10/23/2022 10/24/2023 1 1 [facility] for visit Narrative* Diagnostic Procedure Only (Routine) - Closed Specialty Diagnoses / Procedures Referred By Merissa t Referred To Contact XR IMAGING Diagnoses Lumbar radiculopathy Procedures XR LUMBAR LIMITED 2V FLEX/EXT RADEX SPINE LUMBOSACRAL 2/3 VIEWS Rolando Eugene, DO [address] [facility] [place] [address] Xr Imaging Referral ID Status Reason Start Date Expiration Date V isits Requested Visits Authorized [id number] Closed Auto-Generate d Referral 03/13/2023 04/11/2024 1 1 [facility] Summary Purpose Family History No Family History Records FoundNo Family History Records FoundNo Family History Records FoundNo Family History Records FoundNo Family History Records FoundNo Family History Records Found Advance Directives No Advanced Directives Records FoundDocuments on File Type Date Recorded Patient Strategy Consultant Expl anation Advance Directive(s) 09/21/2021 3:30 PM Advance Directive(s) 07/19/2019 5:57 AM Advance Directive(s) 07/19/2019 6:01 AM Advance Directive(s) 07/06/2019 9:13 AM Documents on File Type Date Recorded Patient Strategy Consultant Expl anation Advance Directive(s) 12/05/2021 8:25 AM Advance Directive(s) 09/21/2021 3:30 PM Advance Directive(s) 07/19/2019 5:57 AM Advance Directive(s) 07/19/2019 6:01 AM Advance Directive(s) 07/06/2019 9:13 AM Documents on File Type Date Recorded Patient Strategy Consultant Expl anation Advance Directive(s) 07/19/2019 6:01 AM Documents on File Type Date Recorded Patient Strategy Consultant Expl anation Advance Directive(s) 07/19/2019 6:01 AM Medications Administered Section Inactive Administered Medications - up to 3 most recent administrations Medication Order MAR Action Action Date Dose Rate Site lactated ringers iv infusion 30 mL/hr, INTRAVENOUS, CONTINUOUS, Starting on Sandra 09/26/22 at 0900, Until Sandra 09/26/22 at 0932, Preprocedure New Bag/Syringe/Bottle 09/26/2022 8:51 AM EST 30 mL/hr 30 mL/hr lactated ringers iv infusion 125 mL/hr, INTRAVENOUS, CONTINUOUS, Starting on Sandra 09/26/22 at 0900, Until Sandra 09/26/22 at 0918, Recovery or Phase I (only) Rate Verify 09/26/2022 9:35 AM EST 125 mL/hr 125 mL/hr Inactive Administered Medications - up to 3 most recent administrations Medication Order MAR Action Action Date Dose Rate Site lactated ringers iv infusion 5-30 mL/hr, INTRAVENOUS, CONTINUOUS, Starting on Fri10/22/22 at 0900, Until Fri10/22/22 at 1026, Preprocedure New Bag/Syringe/Bottle 10/22/2022 8:43 AM EDT 30 mL/hr 30 mL/hr Inactive Administered Medications - up to 3 most recent administrations Medication Order MAR Action Action Date Dose Rate Site lactated ringers iv infusion 5-30 mL/hr, INTRAVENOUS, CONTINUOUS, Starting on Fri10/29/22 at 0800, Until Fri10/29/22 at 1016, Preprocedure Rate/Dose Change 10/29/2022 9:43 AM EDT 700 mL/hr Reason for Referral Specialty Diagnoses / Procedures Referred By Contac t Referred To Contact INTERNAL [facility]IC[facility] Diagnoses Acute left-sided low back pain with left-sided sciatica Procedures ESTABLISH WITH PRIMARY CARE NEW PATIENT OFFICE/OUTPATIENT NEW [facility] 60-74 MINUTES Ignacio Thompson PA-C [address] [place] [address] [facility] [address] [place] [address] Referral ID Status Reason Start Date Expiration Date V isits Requested Visits Authorized [id number] Closed PCP Requested Referral 03/13/2023 03/12/2024 1 1 Specialty Diagnoses / Procedures Referred By Contac t Referred To Contact [facility] Diagnoses Acute left-sided low back pain with left-sided sciatica Procedures [facility]/OUTPATIENT [facility] 60-74 MINUTES [facility] [address] [place] [address] Referral ID Status Reason Start Date Expiration Date Visits Requested Visits Authorized [id number] Authorized PCP Requested Referral 03/13/2023 03/12/2024 1 1 Specialty Diagnoses / Procedures Referred By Contac t Referred To Contact XR IMAGING Diagnoses Acute left-sided low back pain with left-sided sciatica Procedures XR LUMBAR GENERAL 3V AP/LAT/L5-S1 RADEX SPINE LUMBOSACRAL 2/3 VIEWS [facility] [address] [place] [address] Xr Imaging Referral ID Status Reason Start Date Expiration Date V isits Requested Visits Authorized [id number] Closed Auto-Generate d Referral 03/13/2023 04/11/2024 1 1 Specialty Diagnoses / Procedures Referred By Contac t Referred To Contact MR IMAGING Diagnoses Spinal stenosis of lumbar region without neurogenic claudication Procedures MRI LUMBAR SPINE WO IVCON MRI SPINAL CANAL LUMBAR W/O CONTRAST MATERIAL Rolando Eugene, DO [address] [place] [address] Mr Imaging Referral ID Status Reason Start Date Expiration Date Visits Requested Visits Authorized [id number] Authorized Auto-Generat ed Referral 03/18/2023 04/16/2024 1 1 Specialty Diagnoses / Procedures Referred By Contac t Referred To Contact XR IMAGING Diagnoses Lumbar radiculopathy Procedures XR LUMBAR LIMITED 2V FLEX/EXT RADEX SPINE LUMBOSACRAL 2/3 VIEWS Rolando Eugene, [address] [place] [address] Xr Imaging Referral ID Status Reason Start Date Expiration Date V isits Requested Visits Authorized [id number] Closed Auto-Generate d Referral 03/13/2023 04/11/2024 1 1 Specialty Diagnoses / Procedures Referred By Contac t Referred To Contact MR IMAGING Diagnoses Spinal stenosis of lumbar region without neurogenic claudication Procedures MRI LUMBAR SPINE WO IVCON MRI SPINAL CANAL LUMBAR W/O CONTRAST MATERIAL Rolando Eugene, [address] [place] [address] [place] [address] Referral ID Status Reason Start Date Expiration Date V isits Requested Visits Authorized [id number] Closed Auto-Generate d Referral 03/18/2023 04/16/2024 1 1 Additional Source Comments (unrecognized sect ion and content) No Status Records FoundNo Status Records FoundNo Status Records FoundNo Status Records FoundNo Status Records FoundNo Status Records Found INFORMATION SOURCE (unrecogn ized section and content) DATE CREATED AUTHOR AUTHOR'S ORGANIZ ATION 05/22/2021 [facility] DATE CREATED AUTHOR AUTHOR'S ORGANIZ ATION 06/09/2021 [facility] DATE CREATED AUTHOR AUTHOR'S ORGANIZ ATION 12/11/2022 [facility] DATE CREATED AUTHOR AUTHOR'S ORGANIZ ATION 04/23/2023 [facility] DATE CREATED AUTHOR AUTHOR'S ORGANIZ ATION 07/20/[address] [facility] Source Comments (unrecognize d section and content) In the event this informatio n is protected by the Federal Confidentiality of Alcohol and Drug Abuse Patient Records regulations: The Federal rules restrict any use of the information to criminally investigate or prosecute any alcohol or drug abuse patient.[facility] the event this information is protected by the Federal Confidentiality of Alcohol and Drug Abuse Patient Records regulations: The Federal rules restrict any use of the information to criminally investigate or prosecute any alcohol or drug abuse patient.[facility] RehabilitationIn the event this information is protected by the Federal Confidentiality of Alcohol and Drug Abuse Patient Records regulations: The Federal rules restrict any use of the information to criminally investigate or prosecute any alcohol or drug abuse patient.[facility] Rehabilitation[facility] the event this information is protected by the Federal Confidentiality of Alcohol and Drug Abuse Patient Records regulations: The Federal rules restrict any use of the information to criminally investigate or prosecute any alcohol or drug abuse patient.[facility] RehabilitationIn the event this information is protected by the Federal Confidentiality of Alcohol and Drug Abuse Patient Records regulations: The Federal rules restrict any use of the information to criminally investigate or prosecute any alcohol or drug abuse patient.[facility] RehabilitationIn the event this information is protected by the Federal Confidentiality of Alcohol and Drug Abuse Patient Records regulations: The Federal rules restrict any use of the information to criminally investigate or prosecute any alcohol or drug abuse patient.[facility] RehabilitationIn the event this information is protected by the Federal Confidentiality of Alcohol and Drug Abuse Patient Records regulations: The Federal rules restrict any use of the information to criminally investigate or prosecute any alcohol or drug abuse patient.[facility] RehabilitationIn the event this information is protected by the Federal Confidentiality of Alcohol and Drug Abuse Patient Records regulations: The Federal rules restrict any use of the information to criminally investigate or prosecute any alcohol or drug abuse patient.[facility] RehabilitationIn the event this information is protected by the Federal Confidentiality of Alcohol and Drug Abuse Patient Records regulations: The Federal rules restrict any use of the information to criminally investigate or prosecute any alcohol or drug abuse patient.[facility] RehabilitationIn the event this information is protected by the Federal Confidentiality of Alcohol and Drug Abuse Patient Records regulations: The Federal rules restrict any use of the information to criminally investigate or prosecute any alcohol or drug abuse patient.[facility] RehabilitationIn the event this information is protected by the Federal Confidentiality of Alcohol and Drug Abuse Patient Records regulations: The Federal rules restrict any use of the information to criminally investigate or prosecute any alcohol or drug abuse patient.[facility] RehabilitationIn the event this information is protected by the Federal Confidentiality of Alcohol and Drug Abuse Patient Records regulations: The Federal rules restrict any use of the information to criminally investigate or prosecute any alcohol or drug abuse patient.[facility] RehabilitationIn the event this information is protected by the Federal Confidentiality of Alcohol and Drug Abuse Patient Records regulations: The Federal rules restrict any use of the information to criminally investigate or prosecute any alcohol or drug abuse patient.[facility] RehabilitationIn the event this information is protected by the Federal Confidentiality of Alcohol and Drug Abuse Patient Records regulations: The Federal rules restrict any use of the information to criminally investigate or prosecute any alcohol or drug abuse patient.[facility] RehabilitationIn the event this information is protected by the Federal Confidentiality of Alcohol and Drug Abuse Patient Records regulations: The Federal rules restrict any use of the information to criminally investigate or prosecute any alcohol or drug abuse patient.[facility] RehabilitationIn the event this information is protected by the Federal Confidentiality of Alcohol and Drug Abuse Patient Records regulations: The Federal rules restrict any use of the information to criminally investigate or prosecute any alcohol or drug abuse patient.[facility] RehabilitationIn the event this information is protected by the Federal Confidentiality of Alcohol and Drug Abuse Patient Records regulations: The Federal rules restrict any use of the information to criminally investigate or prosecute any alcohol or drug abuse patient.[facility] RehabilitationIn the event this information is protected by the Federal Confidentiality of Alcohol and Drug Abuse Patient Records regulations: The Federal rules restrict any use of the information to criminally investigate or prosecute any alcohol or drug abuse patient.[facility] RehabilitationIn the event this information is protected by the Federal Confidentiality of Alcohol and Drug Abuse Patient Records regulations: The Federal rules restrict any use of the information to criminally investigate or prosecute any alcohol or drug abuse patient.[facility] RehabilitationIn the event this information is protected by the Federal Confidentiality of Alcohol and Drug Abuse Patient Records regulations: The Federal rules restrict any use of the information to criminally investigate or prosecute any alcohol or drug abuse patient.[facility] RehabilitationIn the event this information is protected by the Federal Confidentiality of Alcohol and Drug Abuse Patient Records regulations: The Federal rules restrict any use of the information to criminally investigate or prosecute any alcohol or drug abuse patient.[facility] RehabilitationIn the event this information is protected by the Federal Confidentiality of Alcohol and Drug Abuse Patient Records regulations: The Federal rules restrict any use of the information to criminally investigate or prosecute any alcohol or drug abuse patient.[facility] RehabilitationIn the event this information is protected by the Federal Confidentiality of Alcohol and Drug Abuse Patient Records regulations: The Federal rules restrict any use of the information to criminally investigate or prosecute any alcohol or drug abuse patient.[facility] RehabilitationIn the event this information is protected by the Federal Confidentiality of Alcohol and Drug Abuse Patient Records regulations: The Federal rules restrict any use of the information to criminally investigate or prosecute any alcohol or drug abuse patient.[facility] RehabilitationIn the event this information is protected by the Federal Confidentiality of Alcohol and Drug Abuse Patient Records regulations: The Federal rules restrict any use of the information to criminally investigate or prosecute any alcohol or drug abuse patient.[facility] RehabilitationIn the event this information is protected by the Federal Confidentiality of Alcohol and Drug Abuse Patient Records regulations: The Federal rules restrict any use of the information to criminally investigate or prosecute any alcohol or drug abuse patient.[facility] RehabilitationIn the event this information is protected by the Federal Confidentiality of Alcohol and Drug Abuse Patient Records regulations: The Federal rules restrict any use of the information to criminally investigate or prosecute any alcohol or drug abuse patient.[facility] RehabilitationIn the event this information is protected by the Federal Confidentiality of Alcohol and Drug Abuse Patient Records regulations: The Federal rules restrict any use of the information to criminally investigate or prosecute any alcohol or drug abuse patient.[facility] RehabilitationIn the event this information is protected by the Federal Confidentiality of Alcohol and Drug Abuse Patient Records regulations: The Federal rules restrict any use of the information to criminally investigate or prosecute any alcohol or drug abuse patient.[facility] RehabilitationIn the event this information is protected by the Federal Confidentiality of Alcohol and Drug Abuse Patient Records regulations: The Federal rules restrict any use of the information to criminally investigate or prosecute any alcohol or drug abuse patient.[facility] RehabilitationIn the event this information is protected by the Federal Confidentiality of Alcohol and Drug Abuse Patient Records regulations: The Federal rules restrict any use of the information to criminally investigate or prosecute any alcohol or drug abuse patient.[facility] RehabilitationIn the event this information is protected by the Federal Confidentiality of Alcohol and Drug Abuse Patient Records regulations: The Federal rules restrict any use of the information to criminally investigate or prosecute any alcohol or drug abuse patient.[facility] RehabilitationIn the event this information is protected by the Federal Confidentiality of Alcohol and Drug Abuse Patient Records regulations: The Federal rules restrict any use of the information to criminally investigate or prosecute any alcohol or drug abuse patient.[facility] RehabilitationIn the event this information is protected by the Federal Confidentiality of Alcohol and Drug Abuse Patient Records regulations: The Federal rules restrict any use of the information to criminally investigate or prosecute any alcohol or drug abuse patient.[facility] RehabilitationIn the event this information is protected by the Federal Confidentiality of Alcohol and Drug Abuse Patient Records regulations: The Federal rules restrict any use of the information to criminally investigate or prosecute any alcohol or drug abuse patient.[facility] Reason for Visit (unrecogniz ed section and content) Reason Comments Stoma Markings Reason Onset Date Comments Transition Of Care 12/20/2021 [facility] discharge 5-11-22- initial outreach Reason Comments Post-Op Visit Reason Onset Date Comments [facility] Follow Up 01/11/2022 Reason Comments Consult Reason Onset Date Comments Transition Of Care 04/04/2022 TCM initial o utreach-dc'd from [facility] 04/03/22 Reason Comments Established Patient Discuss reversal Reason Comments Physical CPE, pt is fasting f or labs Reason Comments Patient Update Reason Comments Post Op CLOSURE ENTEROSTOMY Reason Comments Back Pain X 3 weeks Reason Comments New Reason Comments Established Patient Specialty Diagnoses / Procedures Referred By Contac t Referred To Contact MR IMAGING Diagnoses Spinal stenosis of lumbar region without neurogenic claudication Procedures MRI LUMBAR SPINE WO IVCON MRI SPINAL CANAL LUMBAR W/O CONTRAST MATERIAL Rolando Eugene, DO [address] [place] [address] [place] [address] Referral ID Status Reason Start Date Expiration Date V isits Requested Visits Authorized [id number] Closed Auto-Generate d Referral 03/18/2023 04/16/2024 1 1 Reason Comments Cough Cough x 4 weeks Care Teams (unrecognized sec tion and content) Wood Room Hand Relationship Specialty Start Date End Date Cassie Richardson MD [address] [place] [address] PCP - General Family Practice 08/20/21 Wood Room Hand Relationship Specialty Start Date End Date Cassie Richardson MD [address] [place] [address] PCP - General Family Practice 08/20/21 Collin Le MD [address] [facility] [address] [place] [address] Referring General Surgery 12/11/21 Collin Le MD [address] [facility] [address] [place] [address] Home Care Physician General Surgery 12/11/21 Maile Caruso, RN [address] [place] [address] Cloth Sponger Post Acute Care 12/20/21 Wood Room Hand Relationship Specialty Start Date End Date Cassie Richardson MD [address] [place] [address] PCP - General Family Practice 08/20/21 Collin Le MD [address] [place] [address] [place] [address] Referring General Surgery 12/11/21 Collin Le MD [address] [place] [address] [place] [address] Home Care Physician General Surgery 12/11/21 Maile Caruso, RN [address] [place] [address] Cloth Sponger Post Acute Care 12/20/21 Wood Room Hand Relationship Specialty Start Date End Date Cassie Richardson MD [address] [place] [address] PCP - General Family Practice 08/20/21 Collin Le MD [address] [place] [address] [place] [address] Referring General Surgery 12/11/21 Collin Le MD [address] [place] [address] [place] [address] Home Care Physician General Surgery 12/11/21 Maile Caruso, RADHA [address] [place] [address] Cloth Sponger Post Acute Care 12/20/21 Wood Room Hand Relationship Specialty Start Date End Date Cassie Richardson MD [address] [place] [address] PCP - General Family Practice 08/20/21 Collin Le MD [address] [place] [address] [place] [address] Referring General Surgery 12/11/21 Collin Le MD [address] [place] [address] [place] [address] Home Care Physician General Surgery 12/11/21 Maile Caruso RN [address] [place] [address] Cloth Sponger Post Acute Care 12/20/21 Wood Room Hand Relationship Specialty Start Date End Date Cassie Richardson MD [address] [place] [address] PCP - General Family Practice 08/20/21 Collin Le MD [address] [place] [address] [place] [address] Referring General Surgery 12/11/21 Collin Le MD [address] [place] [address] [place] [address] Home Care Physician General Surgery 12/11/21 Maile Caruso RN [address] [place] [address] Cloth Sponger Post Acute Care 12/20/21 Wood Room Hand Relationship Specialty Start Date End Date Cassie Richardson MD [address] [place] [address] PCP - General Family Practice 08/20/21 Collin Le MD [address] [place] [address] [place] [address] Referring General Surgery 12/11/21 Collin Le MD [address] [place] [address] [place] [address] Home Care Physician General Surgery 12/11/21 Maile Caruso RN [address] [place] [address] Cloth Sponger Post Acute Care 12/20/21 Wood Room Hand Relationship Specialty Start Date End Date Cassie Richardson MD [address] [place] [address] PCP - General Family Practice 08/20/21 Collin Le MD [address] [place] [address] [place] [address] Referring General Surgery 12/11/21 Collin Le MD [address] [place] [address] [place] [address] Home Care Physician General Surgery 12/11/21 Maile Caruso RN [address] [place] [address] Cloth Sponger Post Acute Care 12/20/21 Wood Room Hand Relationship Specialty Start Date End Date Cassie Richardson MD [address] [place] [address] PCP - General Family Practice 08/20/21 Collin Le MD [address] [place] [address] [place] [address] Referring General Surgery 12/11/21 Collin Le MD [address] [place] [address] [place] [address] Home Care Physician General Surgery 12/11/21 Maile Caruso RN [address] [place] [address] Cloth Sponger Post Acute Care 12/20/21 Wood Room Hand Relationship Specialty Start Date End Date Cassie Richardson MD [address] [place] [address] PCP - General Family Medicine 08/20/21 Collin Le MD [address] [place] [address] [place] [address] Referring General Surgery 12/11/21 Collin Le MD [address] [place] [address] [place] [address] Home Care Provider General Surgery 12/11/21 Maile Caruso, RADHA [address] [place] [address] Cloth Sponger Post Acute Care 12/20/21 Wood Room Hand Relationship Specialty Start Date End Date Cassie Richardson MD [address] [place] [address] PCP - General Family Medicine 08/20/21 Collin Le MD [address] [place] [address] [place] [address] Referring General Surgery 12/11/21 Collin Le MD [address] [place] [address] [place] [address] Home Care Provider General Surgery 12/11/21 Maile Caruso RN [address] [place] [address] Cloth Sponger Post Acute Care 12/20/21 Wood Room Hand Relationship Specialty Start Date End Date Cassie Richardson MD [address] [place] [address] PCP - General Family Medicine 08/20/21 Collin Le MD [address] [place] [address] [place] [address] Referring General Surgery 12/11/21 Collin Le MD [address] [place] [address] [place] [address] Home Care Provider General Surgery 12/11/21 Maile Caruso RN [address] [place] [address] Cloth Sponger Post Acute Care 12/20/21 Wood Room Hand Relationship Specialty Start Date End Date Cassie Richardson MD [address] [place] [address] PCP - General Family Medicine 08/20/21 Collin Le MD [address] [place] [address] [place] [address] Referring General Surgery 12/11/21 Collin Le MD [address] [place] [address] [place] [address] Home Care Provider General Surgery 12/11/21 Maile Caruso RN [address] [place] [address] Cloth Sponger Post Acute Care 12/20/21 Wood Room Hand Relationship Specialty Start Date End Date Cassie Richardson MD [address] [place] [address] PCP - General Family Medicine 08/20/21 Collin Le MD [address] [place] [address] [place] [address] Referring General Surgery 12/11/21 Collin Le MD [address] [place] [address] [place] [address] Home Care Provider General Surgery 12/11/21 Maile Caruso RN [address] [place] [address] Cloth Sponger Post Acute Care 12/20/21 Wood Room Hand Relationship Specialty Start Date End Date Cassie Richardson MD [address] [place] [address] PCP - General Family Medicine 08/20/21 Collin Le MD [address] [place] [address] [place] [address] Referring General Surgery 12/11/21 Collin Le MD [address] [place] [address] [place] [address] Home Care Provider General Surgery 12/11/21 Maile Caruso RN [address] [place] [address] Cloth Sponger Post Acute Care 12/20/21 Wood Room Hand Relationship Specialty Start Date End Date Cassie Richardson MD [address] [place] [address] PCP - General Family Medicine 08/20/21 Collin Le MD [address] [place] [address] [place] [address] Referring General Surgery 12/11/21 Collin Le MD [address] [place] [address] [place] [address] Home Care Provider General Surgery 12/11/21 Maile Caruso RN [address] [place] [address] Cloth Sponger Post Acute Care 12/20/21 Wood Room Hand Relationship Specialty Start Date End Date Cassie Richardson MD [address] [place] [address] PCP - General Family Medicine 08/20/21 Collin Le MD [address] [place] [address] [place] [address] Referring General Surgery 12/11/21 Collin Le MD [address] [place] [address] [place] [address] Home Care Provider General Surgery 12/11/21 Maile Caruso RN [address] [place] [address] Cloth Sponger Post Acute Care 12/20/21 Wood Room Hand Relationship Specialty Start Date End Date Cassie Richardson MD [address] [place] [phone] PCP - General Family Medicine 08/20/21 Collin Le MD [address] [place] [address] [place] [address] Referring General Surgery 12/11/21 Collin Le MD [address] [place] [address] [place] [address] Home Care Provider General Surgery 12/11/21 Maile Caruso RN [address] [place] [address] Cloth Sponger Post Acute Care 12/20/21 Wood Room Hand Relationship Specialty Start Date End Date Collin Le MD [address] [place] [address] [place] [address] Referring General Surgery 12/11/21 Collin Le MD [address] [place] [address] [place] [address] Home Care Provider General Surgery 12/11/21 Maile Caruso RN [address] [place] [address] Cloth Sponger Post Acute Care 12/20/21 Wood Room Hand Relationship Specialty Start Date End Date Jesus Raza APRN.[employer] [address] [place], [place] [address] PCP - General Family Medicine 03/13/23 Collin Le MD [address] [place] [address] [place] [address] Referring General Surgery 12/11/21 Collin Le MD [address] [place] [address] [place], [place] [phone] Home Care Provider General Surgery 12/11/21 Maile Caruso RN [address] [place], [place] [address] Cloth Sponger Post Acute Care 12/20/21 Daren Dimas MD [address] [place], [place] [phone] Gastroenterology 12/20/22 Wood Room Hand Relationship Specialty Start Date End Date Jesus Raza APRN.[employer] W[employer]ER [address] [place] [address] PCP - General Family Medicine 03/13/23 Collin Le MD [address] [place] [address] [place] [address] Referring General Surgery 12/11/21 Collin Le MD [address] [place] [address] [place] [address] Home Care Provider General Surgery 12/11/21 Maile Caruso RN [address] [place], [place] [address] Cloth Sponger Post Acute Care 12/20/21 Daren Dimas MD [address] [facility] [place], [place] [phone] Gastroenterology 12/20/22 Wood Room Hand Relationship Specialty Start Date End Date Jesus Raza, ROHIT.[employer] WASHER [address] [place], [place] [address] PCP - General Family Medicine 03/13/23 Collin Le MD [address] [place] [address] [place], [place] [address] Referring General Surgery 12/11/21 Collin Le MD [address] [place] [address] [place], [place] [address] Home Care Provider General Surgery 12/11/21 Maile Caruso RN [address] [place] [address] Cloth Sponger Post Acute Care 12/20/21 Daren Dimas MD [address] [place], [place] [phone] Gastroenterology 12/20/22 Wood Room Hand Relationship Specialty Start Date End Date Jesus Raza, ROHIT.[employer] WASHER [address] [place] [address] PCP - General Family Medicine 03/13/23 Collin Le MD [address] [place] [address] [place], [place] [phone] Referring General Surgery 12/11/21 Collin Le MD [address] [place] [address] [place], [place] [address] Home Care Provider General Surgery 12/11/21 Maile Caruso RN [address] [place] [address] Cloth Sponger Post Acute Care 12/20/21 Daren Dimas MD [address] [place], [place] [phone] Gastroenterology 12/20/22 Wood Room Hand Relationship Specialty Start Date End Date Jesus Raza APRN.[employer] W[employer]ER [facility] [place] [address] PCP - General Family Medicine 03/13/23 Collin Le MD [address] [place] [address] [place], [place] [phone] Referring General Surgery 12/11/21 Collin Le MD [address] [place] [address] [place], [place] [address] Home Care Provider General Surgery 12/11/21 Maile Caruso, RN [address] [place], [place] [address] Cloth Sponger Post Acute Care 12/20/21 Daren Dimas MD [address] [facility] [place], [place] [phone] Gastroenterology 12/20/22 Wood Room Hand Relationship Specialty Start Date End Date Jesus Raza APRN.[employer] W[employer] [facility] [place] [address] PCP - General Family Medicine 03/13/23 Collin Le MD [address] [place] [address] [place], [place] [phone] Referring General Surgery 12/11/21 Collin Le MD [address] [place] [address] [place], [place] [phone] Home Care Provider General Surgery 12/11/21 Maile Caruso RN [address] [place], [place] [address] Cloth Sponger Post Acute Care 12/20/21 Daren Dimas MD [address] [place], [place] [phone] Gastroenterology 12/20/22 Wood Room Hand Relationship Specialty Start Date End Date Jesus Raza APRN.[employer] W[employer]ER [address] [place], [place] [phone] PCP - General Family Medicine 03/13/23 Collin Le MD [address] [place] [address] [place], [place] [phone] Referring General Surgery 12/11/21 Collin Le MD [address] [place] [address] [place], [place] [phone] Home Care Provider General Surgery 12/11/21 Maile Caruso RN [address] [place], [place] [address] Cloth Sponger Post Acute Care 12/20/21 Daren Dimas MD [address] [place], [place] [phone] Gastroenterology 12/20/22 FOR RECORDS PERTAINING TO PATIENTS WHO ARE OR HAVE BEEN ENROLLED IN A CHEMICAL DEPENDENCY/SUBSTANCEABUSE PROGRAM, SOME INFORMATION MAY BE OMITTED. This clinical summary was aggregated from multiple sources. Caution should be exercised in using it in the provision of clinical care. This summary normalizes information from multiple sources, and as a consequence, information in this document may materially change the coding, format and clinical context of patient data. In addition, data may be omitted in some cases. CLINICAL DECISIONS SHOULD BE BASED ON THE PRIMARY CLINICAL RECORDS. [facility] [employer] [facility] provides no warranty or guarantee of the accuracy or completeness of information in this document.
[2023-08-14 20:39] LABS: Absolute Lymphocyte Count 0.71 X10^3/uL (0.83-4.51); Absolute Neutrophil Count 11.2 X10^3/uL (2.0-7.7); Basophil# 0.04 X10^3/uL; Basophil% 0.3 % (0-1); Eosinophil# 0.03 X10^3/uL; Eosinophils% 0.2 % (0-5); Hematocrit 42.2 % (40-54); Lymphocyte # 0.71 X10^3/ul (0.83-4.51); Lymphocyte % 5.5 % (19-41); Mean Corp Hgb Conc 33.2 g/dL (32-36); Mean Corpuscular Hgb 28.9 pg (27.0-32.0); Mean Corpuscular Volume 87.2 fL (80-94); Mean Platelet Vol. 9.5 fl (6.2-12.0); Monocyte# 0.98 X10^3/uL; Monocyte% 7.6 % (0-10); NRBC Flagged by Analyzer 0 % (0-5); Neutrophil # 11.17 X10^3/uL (2.7-7.7); Platelet Count 236 K/mm3 (150-450); RBC Distribution Width CV 12.5 % (11.6-14.6); RBC Distribution Width SD 39.8 fl (35.1-43.9); Red Blood Count 4.84 M/mm3 (4.6-6.2)
[2023-08-14 21:03] LABS: Lactic Acid 1.1 mmol/L (0.4-1.9)
[2023-08-14 21:15] VITALS: BMI 28.5
[2023-08-14 21:24] VITALS: BP 115/79; PULSE 78; RESP 18; TEMP 35.9; O2SAT 97
[2023-08-14] MEDS: 0.9% Normal Saline (1000mL) 1,000 ML 100 ML IV (22:23)
[2023-08-14 23:03] LABS: Reflex Lactate? Y
[2023-08-15 03:30] VITALS: BP 109/69; PULSE 67; RESP 18; TEMP 36.6; O2SAT 97
[2023-08-15 07:17] LABS: Absolute Lymphocyte Count 1.32 X10^3/uL (0.83-4.51); Absolute Neutrophil Count 3.7 X10^3/uL (2.0-7.7); Basophil# 0.03 X10^3/uL; Basophil% 0.5 % (0-1); Eosinophil# 0.18 X10^3/uL; Hematocrit 41.1 % (40-54); Hemoglobin 13.3 g/dL (13.0-16.5); Lymphocyte # 1.32 X10^3/ul (0.83-4.51); Lymphocyte % 21.9 % (19-41); Mean Corp Hgb Conc 32.4 g/dL (32-36); Mean Corpuscular Hgb 29.1 pg (27.0-32.0); Mean Corpuscular Volume 89.9 fL (80-94); Mean Platelet Vol. 9.8 fl (6.2-12.0); Monocyte# 0.75 X10^3/uL; Monocyte% 12.5 % (0-10); NRBC Flagged by Analyzer 0 % (0-5); Neutrophil # 3.71 X10^3/uL (2.7-7.7); Neutrophil % 61.6 % (47-70); Platelet Count 226 K/mm3 (150-450); RBC Distribution Width CV 12.9 % (11.6-14.6); RBC Distribution Width SD 42.3 fl (35.1-43.9); Red Blood Count 4.57 M/mm3 (4.6-6.2)
[2023-08-15 07:52] LABS: Anion Gap 5 (5-15); BUN 10 mg/dL (7-18); Calcium,Total 7.7 mg/dL (8.5-10.1); Chloride 115 mmol/L (98-107); Creatinine, Serum 0.84 mg/dL (0.70-1.30); EST Glomerular Filtration Rate 110 mL/min (>60); Est Glom Filt Rate - Afr Amer 133 mL/min (>60); Estimated Creatinine Clearance 112.57 ml/min; Glucose 80 mg/dL (74-106); Potassium 3.8 mmol/L (3.5-5.1); Sodium Level 142 mmol/L (136-145)
[2023-08-15] MEDS: 0.9% Normal Saline (1000mL) 1,000 ML 100 ML IV (08:03)
--- NOTE | 2023-08-15 09:24 | PN.SURG_ITS ---
Subjective Subjective Patient is having no abdominal pain and feels very comfortable this morning. He said he had a bowel movement overnight. He denies any nausea or vomiting. Objective Data Objective Data Vital Signs: Vital Signs Temp Pulse Resp BP Pulse Ox O2 Del Method 97.8 F 67 18 109/69 97 Room Air 08/15/23 03:30 08/15/23 03:30 08/15/23 03:30 08/15/23 03:30 08/15/23 03:30 08/15/23 07:56 Oxygen Delivery Method Room Air Weight: 181 lb 14.102 oz Body Mass Index (BMI) 28.5 Intake & Output: Intake and Output for Last 24 Hours 08/13/23 08/14/23 08/15/23 23:59 23:59 23:59 Intake Total 2049 966.67 / 966.67 Balance 2049 966.67 / 966.67 Lab / Micro Data 08/15/23 06:05 08/15/23 06:05 Labs: Laboratory Results - last 24 hr 08/14/23 18:18: WBC 17.2 H, RBC 5.55, Hgb 16.2, Hct 47.9, MCV 86.3, MCH 29.2, MCHC 33.8, RDW Std Deviation 39.7, RDW Coeff of [place] 12.6, Plt Count 341, MPV 9.6, Immature Gran % (Auto) 0.400, Neut % (Auto) 77.9 H, Lymph % (Auto) 12.8 L, [place] % (Auto) 7.9, Eos % (Auto) 0.7, Baso % (Auto) 0.3, Absolute Neuts (auto) 13.4 H, Absolute Lymphs (auto) 2.20, Nucleated RBC % 0, Sodium 138, Potassium 3.4 L, Chloride 105, Carbon Dioxide 22.0, Anion Gap 11, BUN 13, Creatinine 1.12, Estim Creat Clear Calc 84.43, Est GFR (MDRD) Af Amer 95, Est GFR (MDRD) Non-Af 78, BUN/Creatinine Ratio 11.6, Glucose 131 H, Lactic Acid 3.7 H*, Calcium 9.3, Total Bilirubin 0.70, AST 25, ALT 35, Alkaline Phosphatase 73, Total Protein 7.9, Albumin 4.2, Globulin 3.7, Albumin/Globulin Ratio 1.1, Lipase 47 08/14/23 19:29: Urine Color Yellow, Urine Clarity Clear, Urine pH 6.0, Ur Specific [place] 1.020, Urine Protein Negative, Urine Glucose (UA) Normal, Urine Ketones 50 H, Urine Occult Blood Negative, Urine Nitrite Negative, Urine Bilirubin Negative, Urine Urobilinogen Normal, Ur Leukocyte Esterase Negative, Urine RBC 0 SEEN, Urine WBC 0 SEEN, Ur Squamous Epith Cells 0 SEEN, Urine Bacteria 0 SEEN, Urine Mucus 0 SEEN 08/14/23 20:29: WBC 13.0 H, RBC 4.84, Hgb 14.0, Hct 42.2, MCV 87.2, MCH 28.9, MCHC 33.2, RDW Std Deviation 39.8, RDW Coeff of [place] 12.5, Plt Count 236, MPV 9.5, Immature Gran % (Auto) 0.400, Neut % (Auto) 86.0 H, Lymph % (Auto) 5.5 L, [address] % (Auto) 7.6, Eos % (Auto) 0.2, Baso % (Auto) 0.3, Absolute Neuts (auto) 11.2 H, Absolute Lymphs (auto) 0.71 L, Nucleated RBC % 0, Lactic Acid 1.1 08/15/23 06:05: WBC 6.0, RBC 4.57 L, Hgb 13.3, Hct 41.1, MCV 89.9, MCH 29.1, MCHC 32.4, RDW Std Deviation 42.3, RDW Coeff of [place] 12.9, Plt Count 226, MPV 9.8, Immature Gran % (Auto) 0.500, Neut % (Auto) 61.6, Lymph % (Auto) 21.9, St[place] % (Auto) 12.5 H, Eos % (Auto) 3.0, Baso % (Auto) 0.5, Absolute Neuts (auto) 3.7, Absolute Lymphs (auto) 1.32, Nucleated RBC % 0, Sodium 142, Potassium 3.8, Chloride 115 H, Carbon Dioxide 22.0, Anion Gap 5, BUN 10, Creatinine 0.84, Estim Creat Clear Calc 112.57, Est GFR (MDRD) Af Amer 133, Est GFR (MDRD) Non-Af 110, BUN/Creatinine Ratio 12.0, Glucose 80, Calcium 7.7 L Radiography Diagnostic Testing: Radiology Impression Abdomen/Pelvis CT 08/14/23 19:15 IMPRESSION: Small bowel dilatation predominantly in the right upper abdomen with question swirling pattern which may indicate closed lip obstruction versus internal hernia. Differential diagnosis includes localized ileus. Recommend follow-up to evaluate progression. Midline left-sided liver with remainder of the visceral outlines within normal anatomical location. Status post colonic resection with distal visualized sigmoid unremarkable. Electronically Signed: Shannan Connolly MD at 19:47 EST , Physical Exam Const oriented x3 and no apparent distress Resp normal respiratory effort GI soft to palpation and non-tender Assessment & Plan Assessment/Plan (1) SBO (small bowel obstruction): PLAN: Patient had abdominal CT scan yesterday showed possible bowel obstruction with possible internal hernia. After the CT scan the patient said he felt something shift and felt things start moving along. He had a bowel movement since being in the emergency room and has had no pain overnight whatsoever. His lactate came back as normal on a recheck and his white count is normal this morning. I will try clear liquid diet and advance as tolerated. If he does not tolerate it I will order a CT scan with oral contrast. Bunny Pack MD Pager: [facility] [address] [place] [address], [address] [place] [address] Office:
[2023-08-15 10:06] VITALS: BP 115/75; PULSE 69; RESP 18; TEMP 36.6; O2SAT 98
--- NOTE | 2023-08-15 14:29 | PN_ITS ---
Progress Note I went back to the patient. He tolerated clear liquids for breakfast and regular diet for lunch with no abdominal pain or nausea or vomiting. He is feeling well and would like to go home. I will discharge him home. Bunny Pack MD Pager: [facility] [address] [place] [address], [address] [place] [address] Office:
--- NOTE | 2023-08-15 14:29 | DS.PCM_ITS ---
Providers Date of Admission: 08/14/23 Primary Care Physician: No Primary Care Phys Reason For Visit: SBO Diagnosis Discharge Diagnosis (1) SBO (small bowel obstruction): Status: Acute Code(s): K56.609 - Unspecified intestinal obstruction, unspecified as to partial versus complete obstruction Plan: Patient had abdominal CT scan yesterday showed possible bowel obstruction with possible internal hernia. After the CT scan the patient said he felt something shift and felt things start moving along. He had a bowel movement since being in the emergency room and has had no pain overnight whatsoever. His lactate came back as normal on a recheck and his white count is normal this morning. I will try clear liquid diet and advance as tolerated. If he does not tolerate it I will order a CT scan with oral contrast. Bunny Pack MD Pager: [facility] [address] [place] [address], [address] [place] [phone] Office: Medications at Discharge Home Medications NK 08/14/23 Hospital Course Operations None Summary of Care Provided Hospital Course: The patient was admitted with abdominal pain. He has an extensive surgical history. He was admitted with possible bowel obstruction internal hernia but when I saw him in the emergency room he is completely pain-free and felt like something shifted and everything was moving forward. He was admitted for observation and the following morning he was still pain-free with no nausea and was started on clears. He tolerated clears and then he was advanced to regular. Once he tolerated regular diet he was discharged home in stable condition. He wants to follow-up with Dr. Le. I will forward the images to him. Weight / BMI Weight Weight: 181 lb 14.102 oz Body Mass Index (BMI) 28.5 ABG / Lab / Microbiology Data 08/15/23 06:05 08/15/23 06:05 Laboratory: Laboratory Results - last 24 hr 08/14/23 18:18: WBC 17.2 H, RBC 5.55, Hgb 16.2, Hct 47.9, MCV 86.3, MCH 29.2, MCHC 33.8, RDW Std Deviation 39.7, RDW Coeff of [place] 12.6, Plt Count 341, MPV 9.6, Immature Gran % (Auto) 0.400, Neut % (Auto) 77.9 H, Lymph % (Auto) 12.8 L, [place] % (Auto) 7.9, Eos % (Auto) 0.7, Baso % (Auto) 0.3, Absolute Neuts (auto) 13.4 H, Absolute Lymphs (auto) 2.20, Nucleated RBC % 0, Sodium 138, Potassium 3.4 L, Chloride 105, Carbon Dioxide 22.0, Anion Gap 11, BUN 13, Creatinine 1.12, Estim Creat Clear Calc 84.43, Est GFR (MDRD) Af Amer 95, Est GFR (MDRD) Non-Af 78, BUN/Creatinine Ratio 11.6, Glucose 131 H, Lactic Acid 3.7 H*, Calcium 9.3, Total Bilirubin 0.70, AST 25, ALT 35, Alkaline Phosphatase 73, Total Protein 7.9, Albumin 4.2, Globulin 3.7, Albumin/Globulin Ratio 1.1, Lipase 47 08/14/23 19:29: Urine Color Yellow, Urine Clarity Clear, Urine pH 6.0, Ur Specific [place] 1.020, Urine Protein Negative, Urine Glucose (UA) Normal, Urine Ketones 50 H, Urine Occult Blood Negative, Urine Nitrite Negative, Urine Bilirubin Negative, Urine Urobilinogen Normal, Ur Leukocyte Esterase Negative, Urine RBC 0 SEEN, Urine WBC 0 SEEN, Ur Squamous Epith Cells 0 SEEN, Urine Bacteria 0 SEEN, Urine Mucus 0 SEEN 08/14/23 20:29: WBC 13.0 H, RBC 4.84, Hgb 14.0, Hct 42.2, MCV 87.2, MCH 28.9, MCHC 33.2, RDW Std Deviation 39.8, RDW Coeff of [place] 12.5, Plt Count 236, MPV 9.5, Immature Gran % (Auto) 0.400, Neut % (Auto) 86.0 H, Lymph % (Auto) 5.5 L, [place] % (Auto) 7.6, Eos % (Auto) 0.2, Baso % (Auto) 0.3, Absolute Neuts (auto) 11.2 H, Absolute Lymphs (auto) 0.71 L, Nucleated RBC % 0, Lactic Acid 1.1 08/15/23 06:05: WBC 6.0, RBC 4.57 L, Hgb 13.3, Hct 41.1, MCV 89.9, MCH 29.1, MCHC 32.4, RDW Std Deviation 42.3, RDW Coeff of [place] 12.9, Plt Count 226, MPV 9.8, Immature Gran % (Auto) 0.500, Neut % (Auto) 61.6, Lymph % (Auto) 21.9, [place] % (Auto) 12.5 H, Eos % (Auto) 3.0, Baso % (Auto) 0.5, Absolute Neuts (auto) 3.7, Absolute Lymphs (auto) 1.32, Nucleated RBC % 0, Sodium 142, Potassium 3.8, Chloride 115 H, Carbon Dioxide 22.0, Anion Gap 5, BUN 10, Creatinine 0.84, Estim Creat Clear Calc 112.57, Est GFR (MDRD) Af Amer 133, Est GFR (MDRD) Non-Af 110, BUN/Creatinine Ratio 12.0, Glucose 80, Calcium 7.7 L Radiography Diagnostic Testing: Radiology Impression Abdomen/Pelvis CT 08/14/23 19:15 IMPRESSION: Small bowel dilatation predominantly in the right upper abdomen with question swirling pattern which may indicate closed lip obstruction versus internal hernia. Differential diagnosis includes localized ileus. Recommend follow-up to evaluate progression. Midline left-sided liver with remainder of the visceral outlines within normal anatomical location. Status post colonic resection with distal visualized sigmoid unremarkable. Electronically Signed: Shannan Connolly MD at 19:47 EST Reading Location ID and State: [address] [place] [address] , Service support , D/C Instructions Discharge Diet: No restrictions Discharge Activity: Return to Normal Activity and May Shower Weight Bearing Status: Weight bearing as tolerated Call your doctor if you observe: Fever of 101 or Higher, Inability to have a bowel movement and Uncontrolled pain Please Follow Up With: Bunny Pack MD When: Follow up as needed. [phone] Meaningful Use Info Meaningful Use Diagnoses (Choose all that apply): None applicable Discharge Plan Admission Admit Date/Time: 08/14/23 20:21 Attending Provider: Bunny Pack Primary Care Provider: Care Physician,No Primary Discharge Orders/Prescriptions Prescriptions: No Action NK Referrals / Follow Up: Care Physician,No Primary [Primary Care Provider] - Disposition Disposition (needs filled in before D/C Order can be placed): Home, Self Care
--- NOTE | 2023-08-15 14:29 | PCM.PN.BLA ---
Progress Note I went back to the patient. He tolerated clear liquids for breakfast and regular diet for lunch with no abdominal pain or nausea or vomiting. He is feeling well and would like to go home. I will discharge him home. Bunny Pack MD Pager: [facility] [address] [place] [address], [address] [place] [address] Office:
[2023-08-15 15:08] VITALS: BP 110/72; PULSE 82; RESP 18; TEMP 36.6; O2SAT 97
== END 2023-08-15 14:32 | disposition home or self-care (01) ==
LOC: ED 20:04 → PCU 20:31
PROVIDERS: Admitting Provider Surgery; Emergency Provider Student in an Organized Health Care Education/Training Program; Visit Provider Surgery
DX: K56.609 Unspecified intestinal obstruction, unspecified as to partial versus complete obstruction (principal)
CPT/HCPCS: 36415; 74177; 80048; 80053; 81001; 83605; 83690; 85025; 96361; 96365; 96375; 99221; 99284; J7030; Q9967; A4216; G0378; J2405

== ENCOUNTER → 2024-04-20 | Outpatient (CLI) | payer BC, SELFPAY ==
--- NOTE | 2024-04-20 09:17 | CT_ITS ---
STUDY: CT ABDOMEN AND PELVIS WITH CONTRAST REASON FOR EXAM: Male, 38 years old. NAUSEA ,POST GASTRIC BYPASS SURGERY, COLECTOMY RADIATION DOSAGE (If Supplied By Facility): CTDIvol = ( 14.28 ) mGy, DLP = ( 1019.33 ) mGycm TECHNIQUE: Transaxial images were obtained from the dome of the diaphragm to the symphysis pubis with oral contrast. Oral and amp; IV Gastrografin and amp; 100mL Isovue-370 was administered. Sagittal and coronal images were reconstructed. Individualized dose optimization techniques were used for this CT. COMPARISON: Comparison is made with prior examination dated 2023. FINDINGS: The visualized lung bases are unremarkable. The visualized portions of the heart are within normal limits. Once again, the liver is located along the midline and toward the left side of the midline. Normal gallbladder and extrahepatic biliary system. Normal spleen. Normal pancreas. Normal bilateral adrenal glands. Normal right kidney. Normal left kidney. Normal visualized stomach. 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 Fluid-filled slightly dilated small bowel loops are seen in the right side of the abdomen. This is unchanged. Numerous small lymph nodes are seen within the root of the mesentery on the right side. Surgical anastomosis seen in the region of the sigmoid. The appendix is visualized and appears normal. Normal abdominal aorta. Normal inferior vena cava. Normal retroperitoneum. Normal urinary bladder. Normal abdominal wall. There is evidence of prior interpedicular screw and william fixation at the L4-L5 level. CT/Abdomen/Pelvis WITH Contrast IMPRESSION: Stable location of the liver and midline and towards left side of the midline. Prior surgical anastomosis in the sigmoid colon. 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 Small lymph nodes are seen within the mesenteric fat in the right lower quadrant. The largest lymph node measures 1.5 cm. Electronically Signed: Arcadio Monsivais MD at 12:43 EDT ,
== END | disposition home or self-care (01) ==
PROVIDERS: PCP Nurse Practitioner Family; Referring Provider Nurse Practitioner Family; Visit Provider Nurse Practitioner Family
DX: R11.0 Nausea (principal); K56.7 Ileus, unspecified; K56.699 Other intestinal obstruction unspecified as to partial versus complete obstruction; K59.9 Functional intestinal disorder, unspecified; K91.89 Other postprocedural complications and disorders of digestive system; R10.84 Generalized abdominal pain
CPT/HCPCS: 74177; Q9967

== ENCOUNTER → 2024-05-11 | Outpatient (CLI) | payer BC, SELFPAY ==
[2024-05-11 10:59] LABS: Platelet Count 281 K/mm3 (150-450); RET-HE 34.8 pg (30-35); Reticulocyte Count 1.95 % (0.5-1.5)
[2024-05-11 11:03] LABS: Erythrocyte Sedimentation Rate 7 mm/hr (0-20)
[2024-05-11 11:28] LABS: CRP 7.88 mg/L (0.0-3.0); Ferritin 98 ng/mL (26-388); Iron 109 ug/dL (65-175); Iron Binding Capacity,Total 390 ug/dL (250-450)
[2024-05-11 11:29] LABS: Vitamin B12 1049 pg/mL (211-911)
[2024-05-14 15:08] LABS: Anti-Centromere B Ab <0.2 AI (0.0-0.9); Anti-Chromatin <0.2 AI (0.0-0.9); Anti-Jo <0.2 AI (0.0-0.9); Anti-Mitochondrial AB <20.0 Units (0.0-20.0); Anti-Scleroderma-70 AB <0.2 AI (0.0-0.9); Anti-dsDNA Ab <1 IU/mL (0-9); Beef <0.10 kU/L (Class 0); Chocolate <0.10 kU/L (Class 0); Codfish <0.10 kU/L (Class 0); Corn 0.17 kU/L (Class 0/I); Egg, Whole <0.10 kU/L (Class 0); Milk (Cow) 0.17 kU/L (Class 0/I); Mussels <0.10 kU/L (Class 0); Peanut 0.21 kU/L (Class 0/I); Pork 0.78 kU/L (Class II); RNP Ab 0.5 AI (0.0-0.9); SJOGREN'S Anti-SS-A test < 0.2 AI (0.0-0.9); SJOGREN'S Anti-SS-B test < 0.2 AI (0.0-0.9); Salmon <0.10 kU/L (Class 0); Shrimp <0.10 kU/L (Class 0); Smith Ab <0.2 AI (0.0-0.9); Soybean <0.10 kU/L (Class 0); Tuna <0.10 kU/L (Class 0); Wheat 0.22 kU/L (Class 0/I)
[2024-05-14 16:11] LABS: ACCA 34 units (0-90); ALCA 9 units (0-60); AMCA 32 units (0-100); Albumin 4.1 g/dL (2.9-4.4); Alpha-1-Globulins 0.2 g/dL (0.0-0.4); Alpha-2-Globulins 0.9 g/dL (0.4-1.0); Angiotensin Convert Enzyme 65 U/L (14-82); Anti-Smooth Muscle ABS 4 Units (0-19); Ceruloplasmin 30.8 mg/dL (16.0-31.0); Copper, Serum or Plasma 124 ug/dL (69-132); Cytoplasmic Ab (C-ANCA) <1:20 titer (Neg:<1:20); Endomysial Antibody IgA Negative (Negative); Gamma Globulin 0.9 g/dL (0.4-1.8); HEPATITIS B SURFACE AG Negative (Negative); Hep C Antibodies Non Reactive (Non Reactive); Hepatitis A IgM Antibody Negative (Negative); Hepatitis B Core AB IgM Negative (Negative); Immunoglobulin A 273 mg/dL (90-386); Immunoglobulin E 210 IU/mL (6-495); Immunoglobulin G 894 mg/dL (603-1613); Immunoglobulin M 159 mg/dL (20-172); PROEL- TOTAL PROTEIN 7.1 g/dL (6.0-8.5); Perinuclear Ab (P-ANCA) <1:20 titer (Neg:<1:20); QNTFERON TB Mitogen Value > 10.00 IU/mL (.); QNTFERON TB Nil Value 0.01 IU/mL (.); QNTFERON TB1+ Ag Value 0.03 IU/mL (.); QNTFERON TB2+ Ag Value 0.02 IU/mL (.); QNTIFERON TB Positive Criteria Negative (Negative); gASCA 8 units (0-50); t-Transglutaminase IgA <2 U/mL (0-3)
== END | disposition home or self-care (01) ==
PROVIDERS: PCP Nurse Practitioner Family; Referring Provider Internal Medicine Gastroenterology; Visit Provider Internal Medicine Gastroenterology
DX: R19.7 Diarrhea, unspecified (principal); R16.0 Hepatomegaly, not elsewhere classified
CPT/HCPCS: 36415; 80074; 82164; 82390; 82525; 82607; 82728; 82784; 82785; 83516; 83540; 83550; 84165; 85045; 85652; 86003; 86005; 86036; 86037; 86140; 86225; 86235; 86255; 86334; 86480; 86671

== ENCOUNTER → 2024-05-14 | Outpatient (CLI) | payer BC, SELFPAY ==
[2024-05-18 02:08] LABS: Pancreatic Elastase, Fecal > 800 (>200)
[2024-05-18 20:08] LABS: Calprotectin, Stool 56 ug/g (0-120); Fats, Neutral Normal (.); Fats, Total Normal (.)
== END | disposition home or self-care (01) ==
LOC: LABSPEC 12:24
PROVIDERS: PCP Nurse Practitioner Family; Referring Provider Internal Medicine Gastroenterology; Visit Provider Internal Medicine Gastroenterology
DX: K58.9 Irritable bowel syndrome, unspecified (principal); R19.7 Diarrhea, unspecified; R16.0 Hepatomegaly, not elsewhere classified
CPT/HCPCS: 36415; 82274; 82653; 82705; 83630; 83993; 87177; 87209; 87329; 87493; 87506

== ENCOUNTER → 2024-05-25 | Outpatient (CLI) | payer BC, SELFPAY ==
--- NOTE | 2024-05-25 08:28 | US_ITS ---
STUDY: ABDOMINAL ULTRASOUND - RIGHT UPPER QUADRANT; ELASTOGRAPHY REASON FOR VISIT: Male, 38 years old. Hepatomegaly. TECHNIQUE: Ultrasound evaluation of the right upper quadrant was performed with real-time and static potts-scale imaging. Point quantification shear wave elastography was performed (Otogami). TECHNICAL QUALITY: Adequate. COMPARISON: Comparison is made with prior CT scan of the abdomen and pelvis dated April 20, 2024. FINDINGS: Liver: The liver is mildly enlarged and measures 18.6 cm. There is normal echogenicity of the liver. The bile ducts are within normal limits. There is hepatic color flow. The direction of portal flow is hepatopetal. There is no demonstrated mass lesion. Median liver stiffness measured 5 kPa. Once again, the liver is within the midline towards the left upper quadrant. Gallbladder: Normal distended gallbladder. The gallbladder wall measures 2 mm. There is a negative sonographic Duckworth''s sign. There is no pericholecystic fluid. There are no gallstones. Common Bile Duct (C.B.D.): The common bile duct measures 2 mm. Pancreas: There is normal echogenicity of the visualized pancreas. There is no demonstrated pancreatic mass or cyst. Right Kidney: Normal size of the right kidney. The right kidney measures 11.1 cm x 5.9 cm x 5.7 cm. Normal renal cortex. The right cortex measures 2.3 cm. There is no demonstrated renal mass or cyst. There is no right hydronephrosis. US/ABD Limited w/ Elastography IMPRESSION: 1. Liver stiffness measures 5.0 kPa compatible with F0-F1 (Normal to mild liver fibrosis) Metavir score. Electronically Signed: Arcadio Monsivais MD at 13:56 EDT ,
== END | disposition home or self-care (01) ==
LOC: US 08:24
PROVIDERS: PCP Nurse Practitioner Family; Referring Provider Internal Medicine Gastroenterology; Visit Provider Internal Medicine Gastroenterology
DX: R16.0 Hepatomegaly, not elsewhere classified (principal)
CPT/HCPCS: 76705; 76981

== ENCOUNTER → 2024-10-19 | Outpatient (CLI) | payer BC, SELFPAY ==
[2024-10-19 12:52] LABS: Hematocrit 44.4 % (40-54); Hemoglobin 15.2 g/dL (13.0-16.5); Mean Corp Hgb Conc 34.2 g/dL (32-36); Mean Corpuscular Hgb 30.3 pg (27.0-32.0); Mean Corpuscular Volume 88.6 fL (80-94); Mean Platelet Vol. 10.5 fl (6.2-12.0); Platelet Count 261 K/mm3 (150-450); RBC Distribution Width CV 12.8 % (11.6-14.6); RBC Distribution Width SD 41.8 fl (35.1-43.9); Red Blood Count 5.01 M/mm3 (4.6-6.2); White Blood Count 5.4 K/mm3 (4.4-11.0)
[2024-10-19 13:19] LABS: Cholesterol 148 mg/dL (<=200); High Density Lipoprotein 70 mg/dL; Low Density Lipoprotein Calc. 64 mg/dL; Triglycerides 71 mg/dL; Very Low Density Lipoprotein 14 mg/dL (5-40); cholesterol:hdl ratio screen 2.11
[2024-10-19 13:24] LABS: ALB/GLOB Ratio 1.6 RATIO (0.9-2.4); AST(SGOT) 34 U/L (<=37); Alanine Aminotransfer ALT/SGPT 28 U/L (<=46); Albumin, Serum 4.4 g/dL (3.5-5.0); Alkaline Phosphatase 61 U/L (40-129); Anion Gap 13 (5-15); BUN 12 mg/dL (4-19); BUN/Creat Ratio 13.9 RATIO (10-20); Calcium,Total 8.8 mg/dL (7.6-11.0); Carbon Dioxide 18.1 mmol/L (21.0-32.0); Chloride 106 mmol/L (98-108); Creatinine, Serum 0.86 mg/dL (0.70-1.20); EST Glomerular Filtration Rate 114 (>60); Globulin 2.7 g/dL (2.2-4.2); Glucose 93 mg/dL (70-99); Potassium 4.4 mmol/L (3.3-5.1); Protein, Total 7.1 g/dL (5.9-8.4); Sodium Level 137 mmol/L (133-145); Total Bilirubin 0.59 mg/dL (0.00-1.30)
== END | disposition home or self-care (01) ==
LOC: MFPLAB 10:16
PROVIDERS: PCP Family Medicine; Referring Provider Family Medicine; Visit Provider Family Medicine
DX: Z00.00 Encounter for general adult medical examination without abnormal findings (principal); E66.9 Obesity, unspecified; Z13.1 Encounter for screening for diabetes mellitus; Z13.220 Encounter for screening for lipoid disorders
CPT/HCPCS: 36415; 80053; 80061; 84443; 85027

== ENCOUNTER → 2025-01-17 | Outpatient (CLI) | payer BC, SELFPAY ==
--- NOTE | 2025-01-17 17:42 | CT_ITS ---
PROCEDURE: ABDOMEN/PELVIS WITH CONTRAST 01/17/2025 REASON FOR EXAM: LUQ PAIN, RLQ PAIN, 1.5CM RLQ NODE ON 04/2024 CT TECHNIQUE: Abdomen and pelvis CT with intravenous contrast. Coronal and Sagittal reconstruction series were provided. PATIENT PREPARATION: Per protocol ORAL CONTRAST TYPE: Patient ingested oral contrast. CONTRAST: Isovue-350. VOLUME: 100 mL One or more dose reduction techniques were used (e.g., Automated exposure control, adjustment of the mA and/or kV according to patient size, use of iterative reconstruction technique. RADIATION DOSE SUMMARY: CTDlvol: 18.05 mGy DLP: 1039 mGycm COMPARISON: 04/20/2024. FINDINGS: Unchanged liver which is located along the midline and toward the left side of the midline. Normal gallbladder and extrahepatic biliary system. Normal spleen. Normal pancreas. Normal bilateral adrenal glands. Normal right kidney. Normal left kidney. Normal visualized stomach. 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 Fluid-filled slightly dilated small bowel loops are seen in the right side of the abdomen. This is stable in appearance. Numerous small lymph nodes are seen within the root of the mesentery on the right side with the largest in the right lower quadrant measuring 1.5 cm, unchanged. Surgical anastomosis seen in the region of the sigmoid. The appendix is visualized and appears normal. Normal abdominal aorta. Normal inferior vena cava. Normal retroperitoneum. Normal urinary bladder. Normal abdominal wall. There is evidence of prior interpedicular screw and william fixation at the L4-L5 level. CT/Abdomen/Pelvis WITH Contrast IMPRESSION: Numerous small lymph nodes are again seen within the root of the mesentery on t he right side with the largest in the right lower quadrant measuring 1.5 cm, uncha nged in size and appearance. No interval change is noted. Reading [facility]
== END | disposition home or self-care (01) ==
LOC: CT 17:40
PROVIDERS: PCP Family Medicine; Referring Provider Nurse Practitioner Acute Care; Visit Provider Nurse Practitioner Acute Care
DX: R10.12 Left upper quadrant pain (principal); R19.7 Diarrhea, unspecified; R10.31 Right lower quadrant pain; Z91.018 Allergy to other foods
CPT/HCPCS: 74177; Q9967

== ENCOUNTER 2025-04-01 11:51 | Day surgery (SDC) | payer OTHER, SELFPAY ==
[2025-04-01] VITALS (7 sets, daily range): BP systolic 119–137; BP diastolic 78–89; PULSE 83–105; RESP 16; TEMP 36.4–36.8; O2SAT 96–99; BMI 30.9
[2025-04-01] MEDS: Lactated Ringers 1,000 ML 15 ML IV (12:19)
--- NOTE | 2025-04-01 12:27 | PRE.ANES_ITS ---
ASA Classification* ASA Classification ASA Classification: 2 Assessment & Plan Anesthesia* Anesthesia Assessment Anesthesia Assessment: Discussed sedation and/or anesthesia options, risks, benefits, and alternatives with patient/parents/legal guardian/POA. Questions invited. The patient/parents/legal guardian/POA seems to understand and agrees to proceed with anesthesia plan. Reviewed the physical assessment, medical history, allergy history and patient home medications list prior to surgery/procedure/anesthetic and documented any changes. Performed airway and anesthesia risk assessments. Anesthesia Type Anesthesia Type: MAC History Source History Obtained from:: Patient and Chart Anesthesia Focused Assessment* Temperature: 98.2 F Pulse Rate: 83 Blood Pressure: 137/89 Respiratory Rate: 16 Pulse Ox: 99 Oxygen Delivery Method: Room Air Airway Assessment Mouth opens: >3 cm Mallampati Score: III Teeth Condition: Intact Neck Range of motion (ROM): Full ROM Labs Anesthesia Preop lab: CBC WBC 5.4 K/mm3 (4.4-11.0) 10/19/24 10:20 10/19/24 RBC 5.01 M/mm3 (4.6-6.2) 10/19/24 10:20 10/19/24 Hgb 15.2 g/dL (13.0-16.5) 10/19/24 10:20 10/19/24 Hct 44.4 % (40-54) 10/19/24 10:20 10/19/24 Plt Count 261 K/mm3 (150-450) 10/19/24 10:20 10/19/24 CHEMISTRY Potassium 4.4 mmol/L (3.3-5.1) 10/19/24 10:20 10/19/24 Sodium 137 mmol/L (133-145) 10/19/24 10:20 10/19/24 BUN 12 mg/dL (4-19) 10/19/24 10:20 10/19/24 Creatinine 0.86 mg/dL (0.70-1.20) 10/19/24 10:20 10/19/24 Glucose 93 mg/dL (70-99) 10/19/24 10:20 10/19/24 TSH 3.810 uIU/mL (0.300-4.200) 10/19/24 10:20 10/09 09/04 COAG Pre-Assessment Diagnosis/Proposed Procedure Planned Operative Procedure(s): EGD Anesthesia History Anesthesia History - principal quality engineer: Anesthesia History - principal quality engineer Hx Hospitalization No 03/30/25 10:02 Any Problems With Anesthesia No 03/30/25 10:02 Cholinesterase deficiency No 03/30/25 10:02 You/Your Family Experience No 03/30/25 10:02 fever (hyperthermia) with Relationship Recent Exposure to Contagious No 04/01/25 12:14 Disease Does patient have nerve No 03/30/25 10:02 stimulator Patient instructed to have device shut off --Does patient have Pacemaker No 04/01/25 12:14 or ICD? When Was Last Pacemaker Check QUESTION #4 FULL TEXT: You/Your Family Experience fever (hyperthermia) with Anesthesia Last Oral Intake Last Oral intake: Last Oral Intake NPO since 23:30 04/01/25 12:14 Meds taken in AM with sips of No 04/01/25 12:14 water? Meds patient instructed to take am of surgery PONV PONV - principal quality engineer: PONV - principal quality engineer Female No 03/30/25 10:02 HX of Motion Sickness No 03/30/25 10:02 HX of N/V After Surgery No 03/30/25 10:02 Non-Smoker Yes 03/30/25 10:02 Duration of Surgery greater No 03/30/25 10:02 than 60 minutes Number of Risk Factors 1 03/30/25 10:02 PONV Score Low Risk 03/30/25 10:02 Height & Weight Height & Weight: Anesthesia: Height & Weight Height 5 ft 6 in 04/01/25 12:14 Weight: 87 kg 04/01/25 12:14 Body Mass Index (BMI) 30.9 04/01/25 12:14 Respiratory Assessment Respiratory Assessment - principal quality engineer: Respiratory Tract Infection Hx - principal quality engineer Hx Respiratory Tract Infection No 03/30/25 10:02 STOP Sleep Apnea STOP Sleep Apnea - principal quality engineer: STOP Sleep Apnea - principal quality engineer Hx Hypertension No 03/30/25 10:02 Hx Sleep Apnea No 03/30/25 10:02 CPAP BIPAP Do you snore loudly (louder No 03/30/25 10:02 than talking or can be heard Do you often feel tired/ No 03/30/25 10:02 fatigued/ sleepy during daytime? Has anyone observed you stop No 03/30/25 10:02 breathing during sleep? STOP Results Negative 03/30/25 10:02 QUESTION #5 FULL TEXT : Do you snore loudly (louder than talking or can be heard through closed doors)? Tobacco Use History Tobacco Use History - principal quality engineer: Tobacco Use History - principal quality engineer Tobacco Use Smoking Status Never smoker 03/30/25 10:02 Hx Tobacco Use No 03/30/25 10:02 Years Smoking Packs Smoked per Day Smoking Cessation Date was within the last 15 years Hx Smoking Cessation Date Hx Smoking Cessation Counseling Hematologic Medial History Hematologic Hx - principal quality engineer: Hematologic Medical Hx - electronic installer Hx of Blood Transfusion Yes 03/30/25 10:02 Hx of Transfusion in last 3 No 03/30/25 10:02 Months Date of Last Transfusion (if within last 3 months) Ever experience any problems No 03/30/25 10:02 with transfusion(s)? Specify any problems Hx of Preganancy in last 3 N/A 03/30/25 10:02 Months Nurse Filling Out Transfusion MGRIFFITH 03/30/25 10:02 & Questions: Date: 03/30/25 03/30/25 10:02 Time: 10:04 03/30/25 10:02 Patient unable to answer at this time (ie. confused, unrespo /Reproduction History /Reproductive History - principal quality engineer: /Reproductive Hx- principal quality engineer Hx Now No 03/30/25 10:02 Gestational Age (in weeks): EDC: Hx Hx Para Hx Section SAB No 03/30/25 10:02 Active Medications Active Medications: Current Medications Generic Name Dose Route Start Last Admin Trade Name Freq PRN Reason Stop Dose Admin Lactated Ringer's 1,000 mls @ 15 mls/hr 04/01/25 12:30 04/01/25 12:19 IV 15 mls/hr .Q48H CAROLYN Administration PFSH Medical History Wears contact lenses Wears glasses Alcohol use Marijuana use Non-smoker Ileostomy present Home Medications ?Medication ?Instructions ?Recorded ?Last Taken ?Type cetirizine 10 mg tablet (24Hour 10 mg PO DAILY 5 Unknown History Allergy) Allergy/AdvReac Type Severity Reaction Status Date / Time No Known Allergies Allergy Verified 04/01/25 12:12 Surgical History H/O spinal fusion History of appendectomy History of reversal of ileostomy H/O colectomy Social History Smoking Status: Never smoker Review of Systems (Anesthesia) ROS Narrative System reviewed and no additional complaints, except as documented.
--- NOTE | 2025-04-01 13:00 | EGD_PTH ---
PATIENT: EUNICE GIRON LOC: EN U#:[id number] AGE/SX: 39/M ROOM: RE04/01/[address]: Dr. Tom Campbell DO : 1985 BED: DIS: 04/01/2025 SPEC #: [id number] RECD: 04/01/25 13:26 STATUS: SALVATORE SANDRA #: [id number] JEANNA: 04/01/25 13:[address]: Tom Campbell DEPT: SURGICAL PATHOLOGY RECD BY: Claudio Disla ENTERED: 04/01/25 14:31 SP TYPE: EGD BIOPSY OT DR: Mallory Mckeon MD Tissues: A - Esophagus, NOS B - Duodenum, NOS C - Gastric mucous membrane Procedures: Immunohistochemical Stains Surgery Specimen Level IV HEADER OPERATION: EGD with biopsy PRE-OP DIAGNOSIS: Diarrhea, food allergy, left upper quadrant pain, right lower quadrant pain TISSUE SUBMITTED: A- Distal esophagus biopsy, B- Duodenum biopsy, C- Gastric body biopsy MICROSCOPIC DIAGNOSIS A. Distal esophagus, biopsy: Squamocolumnar mucosa, negative for goblet cell metaplasia. B. Duodenum, biopsy: Olga gland hyperplasia with gastric mucin cell metaplasia, suggestive of peptic injury. Negative for increased intraepithelial lymphocytes. C. Gastric body, biopsy: Oxyntic mucosa with no specific pathologic change. IHC negative for H. pylori organisms. MICROSCOPIC DESCRIPTION Slides are reviewed. All matched controls reacted appropriately. These tests were developed and their performance characteristics determined by [facility]. They may not have been cleared or approved by the U.S. Food and Drug Administration. The FDA has determined that such clearance or approval is not necessary. The above immunohistochemical/dualISH markers are viewed by the Pathologist. GROSS DESCRIPTION A. Received in fixative is one container labeled with the patient's name and designated Distal esophagus biopsy. The specimen consists of two irregular fragments of light mendieta soft tissue that measure 0.4 and 0.6 cm. The specimen is totally submitted in one cassette. B. Received in fixative is one container labeled with the patient's name and designated Duodenum biopsy. The specimen consists of three irregular fragments of light mendieta soft tissue that measure <0.1 to 0.4 cm. Smallest fragment may not survive processing. The specimen is totally submitted in one cassette. C. Received in fixative is one container labeled with the patient's name and designated Gastric body biopsy. The specimen consists of two irregular fragments of light mendieta soft tissue that measure 0.1 and 0.6 cm. The specimen is totally submitted in one cassette. NE 04/01/2025 CPT:37017q7,16596
--- NOTE | 2025-04-01 13:02 | HP.PCM_ITS ---
HPI - General General Date of Admission: 04/01/25 Date of Service: 04/01/25 Chief Complaint: GERD and Abdominal pain HPI Narrative OV 08/18/2024 - Dr. 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 He eventually went and had a full colectomy for colonic inertia. He had a ileorectal anastomosis. He had been seeing surgery for intermittent abdominal pain in the hospital with intermittent small bowel obstruction. 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 Spec ifically the liver in the small bowel. He has been doing okay on a modified diet without any abdominal pain, cramping, nausea vomiting or diarrhea. After looking at the CAT scan of the abdomen pelvis it looks as if he does have a significant amount of rectum and some sigmoid colon. Patient is worried that if he has some rectum left that would increase his risk of problems in the future. He is having approximately 6-12 bowel movements a day. Recommendations: -workup for inflammatory bowel disease - Went over food allergies in great detail -We will do food elimation diet and follow up in 4months -Further recommendations to follow Labs completed 10/19/2024 reveal a normal CBC, liver panel, lipid panel and TSH. IBD serologies, serum copper, QuantiFERON, iron panel, and acute hepatitis panel were unremarkable May 2024. CRP was previously elevated to 7.18 May 2024. Food allergen panel revealed allergy to corn, cows milk, peanut, pork, and wheat. CT prior node (1.5cm) on CT April 2024 - reports he is doing well - seen in office today with his mom - bowel movements are still diarrhea, has regular cramping - reports he tries to hydrate a lot - laugh or turning/twisting can cause abdominal cramping, can try to stretch it out on occasion - denies any HB, N/V - he is having 4-8 stools daily - he is not taking anything to slow down stools - reports bowel habits are low to mid in terms of daily lifestyle - he is following food allergies - the only food he has not fully removed is wheat - RLQ stabbing, burning pain, around area of prior incision - no change in pain with a BM - no change in pain with movement [facility] Medical History Wears contact lenses Wears glasses Alcohol use Marijuana use Non-smoker Ileostomy present Home Medications ?Medication ?Instructions ?Recorded ?Last Taken ?Type cetirizine 10 mg tablet (24Hour 10 mg PO DAILY 5 Unknown History Allergy) Allergy/AdvReac Type Severity Reaction Status Date / Time No Known Allergies Allergy Verified 04/01/25 12:12 Surgical History H/O spinal fusion History of appendectomy History of reversal of ileostomy H/O colectomy Social History Smoking Status: Never smoker ROS Constitutional Constitutional: Denies fatigue, fever(s), poor appetite, weight gain or weight loss Gastrointestinal Gastrointestinal: Denies belching, bloating, change in bowel habits, change in stool character, chewing difficulty, coffee ground emesis, constipation, cramping, diarrhea, dyspepsia, dysphagia, early satiety, excessive flatus, fecal incontinence, heartburn, hematemesis, hematochezia, hemorrhoids, loose stools, melena, nausea, odynophagia, rectal bleeding, tenesmus, vomiting or weight changes Vital Signs Vital Signs Vital Signs: 04/01/25 12:14 04/01/25 12:14 04/01/25 12:35 Temperature 98.2 F 98.2 F Temperature Source Temporal Pulse Rate 83 83 Respiratory Rate 16 16 Respiratory Pattern Normal Blood Pressure 137/89 H 137/89 H Blood Pressure Mean 105 Blood Pressure Source Monitor Blood Pressure Position Sitting Blood Pressure Location Left Arm Pulse Ox 99 99 Oxygen Delivery Method Room Air Room Air Weight Weight: 191 lb 12.835 oz Body Mass Index (BMI) 30.9 Physical Exam Const alert, oriented x3, no apparent distress and healthy appearing General Appearance: cooperative GI normal to inspection, nondistended, normoactive bowel sounds, soft to palpation, non-tender and non-distended Percussion: normal to percussion Rectal Exam: deferred Assessment & Plan Assessment/Plan (1) RLQ abdominal pain: (2) LUQ pain: PLAN: Assessment and Plan Assessment and Plan (1) Diarrhea: Status: Acute Qualifiers: Diarrhea type: unspecified type Qualified Code(s): R19.7 - Diarrhea, unspecified (2) Food allergy: Status: Acute (3) LUQ pain: Status: Acute (4) RLQ abdominal pain: Status: Acute Orders: Orders CRP 12/22/24 R10.12 - Left upper quadrant pain, R10.31 - Right lower quadrant pain, R19.7 - Diarrhea, unspecified, Z91.018 - Allergy to other foods t-Transglutaminase IgA 12/22/24 R10.12 - Left upper quadrant pain, R10.31 - Right lower quadrant pain, R19.7 - Diarrhea, unspecified, Z91.018 - Allergy to other foods Immunoglobulin A 12/22/24 R10.12 - Left upper quadrant pain, R10.31 - Right lower quadrant pain, R19.7 - Diarrhea, unspecified, Z91.018 - Allergy to other foods Abdomen/Pelvis WITH Contrast 12/22/24 R10.12 - Left upper quadrant pain, R10.31 - Right lower quadrant pain, R19.7 - Diarrhea, unspecified, Z91.018 - Allergy to other foods CBC W/Diff, Automated 12/22/24 R10.12 - Left upper quadrant pain, R10.31 - Right lower quadrant pain, R19.7 - Diarrhea, unspecified, Z91.018 - Allergy to other foods Comprehensive Metabolic Profil 12/22/24 R10.12 - Left upper quadrant pain, R10.31 - Right lower quadrant pain, R19.7 - Diarrhea, unspecified, Z91.018 - Allergy to other foods Magnesium 12/22/24 R10.12 - Left upper quadrant pain, R10.31 - Right lower quadrant pain, R19.7 - Diarrhea, unspecified, Z91.018 - Allergy to other foods Referrals Allergy & Immunology R10.12 - Left upper quadrant pain, R10.31 - Right lower quadrant pain, R19.7 - Diarrhea, unspecified, Z91.018 - Allergy to other foods Plan 39-year-old male with a complex surgical history, including total colectomy with ileorectal anastomosis following right hemicolectomy for sequelae of distention and ultimately total colectomy for colonic inertia. He presents today for follow-up, overall doing well with improved abdominal symptoms on a modified diet, though he continues to have loose stools (4-8 daily) consistent with his postsurgical anatomy. He reports chronic abdominal cramping, particularly stabbing and burning RLQ pain at the prior ostomy site, without clear relation to bowel movements or physical activity. He expresses concern regarding systemic inflammation from known food allergies (corn, cows milk, peanut, pork, and wheat) and the potential for future bowel complications. He reports he was previously informed-or it is his understanding-that food allergens identified on serum testing contributed to systemic inflammation resulting in colonic inertia. However, this connection is unlikely, as the accuracy and clinical relevance of the serum allergy testing he underwent remain uncertain. At this time, there is insufficient evidence to directly link these food allergens to the etiology of his underlying motility disorder. He has eliminated some trigger foods, he is not fully avoiding all identified allergens. A CT scan from 04/30/2024 showed mesenteric lymphadenopathy (largest node 1.5 cm in the RLQ), and he also reports a history of hiatal and ventral hernias, though prior imaging confirming this was not available in current records. To further evaluate his abdominal pain and rule out ongoing inflammation or structural issues, an EGD has also been scheduled given his surgical history and reported upper abdominal discomfort, although he denies current GERD symptoms, nausea, or vomiting. Stool studies including fecal calprotectin and cultures have been ordered, along with repeat labs (CBC, CMP, magnesium, CRP, TTG IgA, and total IgA). Given concerns for ongoing dietary triggers and systemic symptoms, the patient has been referred to glass breaker Dr. Idris Ghosh for review of prior serum allergen testing and management guidance. The role of magnesium supplementation was discussed; however, due to the potential for worsening diarrhea, he is advised to defer use at this time. He currently does not take antidiarrheals. Follow- up will be based on the results of labs, imaging, and EGD findings. Note: [employer] speech recognition bisque placer software was used to create portions of this document. Sound-alike and misspelled words, as well as other bisque placer errors may be contained in the documentation. Patient Instructions: GIPCR/Calprotectin/H. Pylori - [facility] EGD - LUQ pain ?HH CT CRP/Celiac serologies - will do in [address] Ghosh Follow-up in office after completion of testing and consult with Dr. Ghosh Plan Details Follow Up: 3 Months
[2025-04-01] MEDS: fentaNYL 100 MCG/2 ML Ampul IV (13:05)
[2025-04-01] MEDS: Lidocaine 1% (5 ml sdv) 5 ML Vial 10 ML IV (13:06)
[2025-04-01] MEDS: Midazolam 2 MG/2 ML Syringe IV (13:10)
--- NOTE | 2025-04-01 13:23 | OP.EGD_ITS ---
Patient Name: Brad Vargas Procedure Date: 04/01/2025 12:54 PM Date of : 1985 Age: 39 Procedure: Upper GI endoscopy Indications: Functional Dyspepsia, Suspected esophageal reflux Providers: Tom Campbell DO Referring MD: Mallory Mckeon Md Medicines: Monitored Anesthesia Care Patient Profile: This is a 39 year old male. Refer to note in patient chart for documentation of history and physical. Patient has symptoms of acute abdominal distention. Complications: No immediate complications. Procedure: Pre-Anesthesia Assessment: - Prior to the procedure, a History and Physical was performed, and patient medications and allergies were reviewed. The patient is competent. The risks and benefits of the procedure and the sedation options and risks were discussed with the patient. All questions were answered and informed consent was obtained. Patient identification and proposed procedure were verified by the physician. Mental Status Examination: alert and oriented. Airway Examination: normal oropharyngeal airway and neck mobility. Respiratory Examination: clear to auscultation. CV Examination: normal. Prophylactic Antibiotics: The patient does not require prophylactic antibiotics. Prior Anticoagulants: The patient has taken no anticoagulant or antiplatelet agents except for NSAID medication. ASA Grade Assessment: II - A patient with mild systemic disease. After reviewing the risks and benefits, the patient was deemed in satisfactory condition to undergo the procedure. The anesthesia plan was to use monitored anesthesia care (MAC). Immediately prior to administration of medications, the patient was re-assessed for adequacy to receive sedatives. The heart rate, respiratory rate, oxygen saturations, blood pressure, adequacy of pulmonary ventilation, and response to care were monitored throughout the procedure. The physical status of the patient was re-assessed after the procedure. After obtaining informed consent, the endoscope was passed under direct vision. Throughout the procedure, the patient's blood pressure, pulse, and oxygen saturations were monitored continuously. The Endoscope was introduced through the mouth, and advanced to the third part of the duodenum. Small bowel enteroscopy was deemed necessary. The upper GI endoscopy was accomplished without difficulty. The patient tolerated the procedure well. Scope In: 1:10:36 PM Scope Out: 1:14:47 PM Total Procedure Duration Time 0 hours 4 minutes 11 seconds Findings: LA Grade B (one or more mucosal breaks greater than 5 mm, not extending between the tops of two mucosal folds) esophagitis with no bleeding was found 36 to 40 cm from the incisors. Biopsies were taken with a cold forceps for histology. Verification of patient identification for the specimen was done. Estimated blood loss was minimal. Patchy mildly erythematous mucosa without bleeding was found in the gastric body. Biopsies were taken with a cold forceps for histology. Biopsies were taken with a cold forceps for Helicobacter pylori testing. Verification of patient identification for the specimen was done. Estimated blood loss was minimal. Suspect gastroparesis due to absence of peristalsis and patient symptoms. Patchy mildly erythematous mucosa without active bleeding and with no stigmata of bleeding was found in the entire duodenum. Biopsies were taken with a cold forceps for histology. Verification of patient identification for the specimen was done. Estimated blood loss was minimal. Impression: - LA Grade B reflux esophagitis with no bleeding. Biopsied. - Erythematous mucosa in the gastric body. Biopsied. - Gastroparesis. - Erythematous duodenopathy. Biopsied. Recommendation: - Discharge patient to home. - Resume previous diet. - Continue present medications. Procedure Code(s): --- Professional --- 58781, Small intestinal endoscopy, enteroscopy beyond second portion of duodenum, not including ileum; with biopsy, single or multiple CPT copyright 2021 [employer] [place] [employer]. All rights reserved. The codes documented in this report are preliminary and upon polystyrene molding machine tender review may be revised to meet current compliance requirements. Tom Campbell DO 04/01/2025 1:23:18 PM This report has been signed electronically. Number of Addenda: 0 Note Initiated On: 04/01/2025 12:54 PM
--- NOTE | 2025-04-01 13:23 | OP.PROVAT_ITS ---
04/01/2025 Mallory Mckeon Md Re : Upper GI endoscopy procedure for Brad Vargas Dear Mike This procedure was performed on Tuesday, April 01, 2025. My impressions and recommendations are as follows: Impressions : - LA Grade B reflux esophagitis with no bleeding. Biopsied. - Erythematous mucosa in the gastric body. Biopsied. - Gastroparesis. - Erythematous duodenopathy. Biopsied. Recommendations : - Discharge patient to home. - Resume previous diet. - Continue present medications. My findings are described in the full procedure note, which is enclosed. If I can be of further assistance, please feel free to contact me at . Sincerely, Tom Campbell, 04/01/2025 1:23:18 PM This report has been signed electronically.
--- NOTE | 2025-04-01 13:23 | PCM.POST.ANE ---
Anesthesia: Postop Eval I Current Vital Signs Temperature: 97.9 F Pulse Rate: 98 Blood Pressure: 125/78 Respiratory Rate: 16 Pulse Ox: 98 Assessment Airway patent: Yes Spontaneous unlabored respirations: Yes nausea: No Vomiting: No Anesthesia Complication: No Fluid Hydration Crystalloid volume administer (ml): 300 Total IV fluid infused: 300 Progress Note Anesthesia document: Postop Eval 1 completed: Yes
== END 2025-04-01 14:01 | disposition home or self-care (01) ==
LOC: EN 11:53 → AC 11:57
PROVIDERS: PCP Family Medicine; Referring Provider Family Medicine; Visit Provider Internal Medicine Gastroenterology
PROC: 0DJ08ZZ Inspection of Upper Intestinal Tract, Via Natural or Artificial Opening Endoscopic (ICD-10-PCS; CPT 43235; principal; 2025-04-01 12:55)
DX: R10.31 Right lower quadrant pain (principal); K21.00 Gastro-esophageal reflux disease with esophagitis, without bleeding; K31.84 Gastroparesis; R10.12 Left upper quadrant pain; R19.7 Diarrhea, unspecified; Z90.49 Acquired absence of other specified parts of digestive tract; Z91.018 Allergy to other foods; K31.89 Other diseases of stomach and duodenum; K31.A0 Gastric intestinal metaplasia, unspecified
CPT/HCPCS: 43239; 88305; 88342

== ENCOUNTER 2025-05-29 10:03 | Inpatient (IN) | payer OTHER, SELFPAY ==
[2025-05-29] VITALS (7 sets, daily range): BP systolic 120–147; BP diastolic 86–99; PULSE 82–108; RESP 16–18; TEMP 36.6–37.6; O2SAT 97–99; BMI 29.2; BMI 28.3
[2025-05-29 10:23] LABS: Hematocrit 45.9 % (40-54); Hemoglobin 15.6 g/dL (13.0-16.5); Immature Granulocytes Count 0.050 X10^3/uL (0.0-0.0); Mean Corp Hgb Conc 34.0 g/dL (32-36); Mean Corpuscular Volume 86.4 fL (80-94); Mean Platelet Vol. 9.1 fl (6.2-12.0); NRBC Flagged by Analyzer 0 % (0-5); Platelet Count 398 K/mm3 (150-450); RBC Distribution Width CV 12.1 % (11.6-14.6); RBC Distribution Width SD 38.5 fl (35.1-43.9); Red Blood Count 5.31 M/mm3 (4.6-6.2); White Blood Count 10.4 K/mm3 (4.4-11.0)
[2025-05-29 10:59] LABS: AST(SGOT) 20 U/L (<=37); Alanine Aminotransfer ALT/SGPT 24 U/L (<=46); Albumin, Serum 4.1 g/dL (3.5-5.0); Alkaline Phosphatase 82 U/L (40-129); Anion Gap 14 (5-15); BUN 10 mg/dL (4-19); BUN/Creat Ratio 9.3 RATIO (10-20); Calcium,Total 9.1 mg/dL (7.6-11.0); Carbon Dioxide 21.7 mmol/L (21.0-32.0); Chloride 103 mmol/L (98-108); Estimated Creatinine Clearance 96.01 ml/min (50-250); Globulin 3.7 g/dL (2.2-4.2); Glucose 105 mg/dL (70-99); Lipase 47 U/L (13-75); Potassium 4.1 mmol/L (3.3-5.1)
--- NOTE | 2025-05-29 10:59 | EDS_ITS ---
HPI HPI - GI History of Present Illness Chief Complaint: Abd Pain Detail of Chief Complaint: Abdominal pain Informant: patient Narrative Narrative: Patient presents with abdominal pain x 2 weeks. Continuous pain that is at about a 2 or 4 out of 10 but sometimes will spike up to 6 or 7 out of 10. Decreased appetite. He said watery stool. He does not have a colon and his small intestines attached to about 12 inches of his rectum. He complains of some rectal pain. He has had some intermittent blood in his stool. Denies recent antibiotic usage. Patient denies fevers or chills or sweats. He denies urinary symptoms [facility] Medical History Wears contact lenses Wears glasses Alcohol use Marijuana use Non-smoker Ileostomy present Home Medications ?Medication ?Instructions ?Recorded ?Last Taken ?Type cetirizine 10 mg tablet (24Hour 10 mg PO DAILY 5 Unknown History Allergy) Allergy/AdvReac Type Severity Reaction Status Date / Time No Known Allergies Allergy Verified 05/29/25 10:06 Surgical History H/O spinal fusion History of appendectomy History of reversal of ileostomy H/O colectomy Social History Smoking Status: Never smoker ROS ROS ED Review of Systems ROS Unobtainable: other Constitutional Constitutional ED: Reports lethargy; Denies chills, fever(s), sweats or weight loss Eyes Eyes: Denies blurry vision, change in vision or diplopia ENT ENT ED: Denies rhinorrhea or sore throat Cardiovascular Cardiovascular: Denies chest pain, orthopnea or racing heartbeat Respiratory/Chest Respiratory/Chest: Denies cough, dyspnea, dyspnea on exertion, orthopnea or sputum Gastrointestinal Gastrointestinal: Reports abdominal pain, diarrhea and nausea; Denies vomiting Genitourinary Genitourinary ED: Denies dysuria, hematuria or urinary frequency Musculoskeletal Musculoskeletal: Denies arthralgias, back pain, myalgias or neck pain Integumentary Denies abscess, Abrasions or rash Neurologic Neurologic: Denies headache(s) or weakness Psychiatric Psychiatric: Denies anxiety, depression or suicidal thoughts Endocrine Endocrinology: Denies polydipsia, polyphagia or polyuria Hematologic/Lymphatic Hematologic/Lymphatic: Denies easy bleeding, easy bruising or lymphadenopathy Allergic/Immunologic Allergic/Immunologic ED: Denies mouth swelling, tongue swelling or urticaria EXAM Physical Exam Const Vital Signs: 05/29/25 10:04 05/29/25 12:00 Temperature 98 F Temperature Source Oral Pulse Rate 92 86 Respiratory Rate 16 18 Blood Pressure 147/99 H 130/92 H Blood Pressure Mean 115 104 Pulse Ox 99 98 Oxygen Delivery Method Room Air Room Air Positive well nourished and well developed General Appearance ED: well developed and NAD HEENT Reports TM's clear and moist mucous membranes normocephalic and atraumatic; Negative for trauma or tenderness Tympanic Membrane ED: Yes TM's clear Eyes PERRL and EOMs intact bilaterally General Eye ED: Negative for pale conjunctiva or scleral icterus Neck no lymphadenopathy, supple and no JVD General: Negative for tenderness Chest Wall inspection of chest normal and palpation of chest normal Chest: Negative for tenderness Resp normal respiratory effort and clear to auscultation bilaterally Effort and Inspection: Negative for respiratory distress or pain with movement Auscultation: Negative for rhonchi, wheezes or diminished lung sounds Cardio regular rate, regular rhythm, S1 normal heart sound, S2 normal heart sound and no murmurs Peripheral Pulses: pulses 2+ throughout GI normal to inspection, nondistended, normoactive bowel sounds, soft to palpation, non-distended and no masses GI Narrative: Diffuse tenderness to palpation. Tenderness over the right upper quadrant and left upper quadrant with some guarding. There is no rebound, rigidity, or perio signs. Rectal exam performed and there was brown stool with no gross blood. He was very tender to the rectum. Some mild fullness anteriorly and some mild tenderness over the prostate. Back/Spine no CVA tenderness and no thoracic nor lumbar tenderness Extremity normal to inspection General Extremety ED: Negative for edema General Extremity: Negative for edema Neuro oriented x3, CN's II-XII intact bilaterally, no sensory deficits noted and gait normal Sensorium / Orientation: awake, alert, oriented to person, oriented to place and oriented to time Motor Exam: strength 5/5 throughout and strength abnormal Psych mental status grossly normal Skin no rashes or lesions noted and no wounds MDM MDM MDM Narrative Medical decision making narrative: Patient presents with abdominal pain with history of prior ileostomy with colectomy that then was reversed and small bowel attached to rectum. He tells me that the area of anastomosis Closing any had 2 other procedures with some steroid injections to the area to try to open things up. IV line established. CBC with differential obtained showed a white count of 10.4 with hemoglobin 15.6 and platelet count of 398. Chemistries unremarkable. Lactate less than 1. LFTs were normal. Urinalysis normal. CT scan of the abdomen pelvis shows peritoneal architectural distortion in the right lower quadrant with transitional point of colonic wall twisting and narrowing. These findings could be consistent with partial small bowel obstruction in proper clinical setting. I did discuss case with aviation technician Dr. Campbell. He recommended started patient on Zosyn and admitting for IV antibiotics as well as fluids and will likely require sigmoidoscopy and further evaluation possibly with CT with rectal contrast as well. Will discuss case with hospitalist. Lab Data Attestation: I reviewed the patient's lab results. Labs: Laboratory Results - last 24 hr 05/29/25 05/29/25 05/29/25 10:15 11:10 12:50 WBC 10.4 RBC 5.31 Hgb 15.6 Hct 45.9 MCV 86.4 MCH 29.4 MCHC 34.0 RDW Std Deviation 38.5 RDW Coeff of [place] 12.1 Plt Count 398 MPV 9.1 Immature Gran % (Auto) 0.500 Neut % (Auto) 71.2 H Lymph % (Auto) 13.5 L [place] % (Auto) 10.9 H Eos % (Auto) 3.3 Baso % (Auto) 0.6 Absolute Neuts (auto) 7.4 Absolute Lymphs (auto) 1.40 Nucleated RBC % 0 Sodium 139 Potassium 4.1 Chloride 103 Carbon Dioxide 21.7 Anion Gap 14 BUN 10 Creatinine 1.04 Estim Creat Clear Calc 96.01 Est GFR (MDRD) Non-Af 94 BUN/Creatinine Ratio 9.3 L Glucose 105 H Lactic Acid < 1.0 Calcium 9.1 Total Bilirubin 0.67 AST 20 ALT 24 Alkaline Phosphatase 82 Total Protein 7.8 Albumin 4.1 Globulin 3.7 Albumin/Globulin Ratio 1.1 Lipase 47 Urine Color Yellow Urine Clarity Clear Urine pH 6.0 Ur Specific [place] 1.010 Urine Protein 15 H Urine Glucose (UA) Normal Urine Ketones 5 H Urine Occult Blood Negative Urine Nitrite Negative Urine Bilirubin Negative Urine Urobilinogen Normal Ur Leukocyte Esterase Negative Urine RBC 0 SEEN Urine WBC 0 SEEN Ur Squamous Epith Cells 0 SEEN Urine Bacteria 0 SEEN Urine Mucus 0 SEEN Radiography Diagnostic Testing: Clinical Impression(s) from Imaging Studies Abdomen/Pelvis CT 05/29/25 11:01 IMPRESSION: Peritoneal architectural distortion centered in the right abdomen where the transitional point of colonic wall twisting and narrowing. These findings can be consistent with partial small bowel obstruction in the proper clinical setting. Reading Location: [facility] Discharge Plan Dx/Rx/DC Orders Clinical Impression: Abdominal pain, Partial small bowel obstruction Disposition Disposition: Acute Care Hospital [facility]
--- NOTE | 2025-05-29 11:01 | CT_ITS ---
PROCEDURE: ABDOMEN/PELVIS W IV CONT ONLY 05/29/2025 REASON FOR EXAM: ABDOMINAL PAIN TECHNIQUE: Procedure Code: [id number] Modality: CT Procedure: ABDOMEN/PELVIS W IV CONT ONLY Coronal and Sagittal reconstruction series were provided. CONTRAST: Isovue 370 VOLUME: 73 mL One or more dose reduction techniques were used (e.g., Automated exposure control, adjustment of the mA and/or kV according to patient size, use of iterative reconstruction technique. RADIATION DOSE SUMMARY: CTDlvol: 16.85 mGy DLP: 970.52 mGycm COMPARISON: CT abdomen and pelvis August 14, 2023. FINDINGS: Lung bases: Clear. Liver: The liver is shifted to the left abdomen but unremarkable. Gallbladder: Unremarkable. No biliary dilation. Spleen: Unremarkable. Pancreas: Unremarkable. Adrenals: Unremarkable. Kidneys: No hydronephrosis. Bladder: Unremarkable. Reproductive Organs: Unremarkable. Bowel: Surgical sutures at the sigmoid. The bowel loops are located in the right abdomen. Peritoneal architectural distortion centered in the right abdomen where the transitional point of colonic wall twisting and narrowing. These findings can be consistent with partial small bowel obstruction in the proper clinical setting. Appendix: Unremarkable. Lymph nodes: No lymphadenopathy. Vasculature: No aneurysm. Peritoneum / Retroperitoneum: No free air or free fluid. Bones: No acute bony abnormalities. Status post posterior fusion of L4-L5 along with laminectomy. CT/Abdomen/Pelvis W IV Cont ONLY IMPRESSION: Peritoneal architectural distortion centered in the right abdomen where the tra nsitional point of colonic wall twisting and narrowing. These findings can be consistent with partial small bowel obstructio n in the proper clinical setting. Reading Location: [facility]
--- OUTSIDE RECORDS SUMMARY | 2025-05-29 11:04 | XMS RPT_ITS | CCD ---
Author Organization [facility] Care Team Providers Care Optical Effects Line Up Person Name Role Phone Unavailable Primary Care Provider Unavailabl e Dylan DALEY, Cassie Valladares Primary Care Provider [phone] Rey DALEY, Collin Unavailable Rey DALEY, Collin Unavailable Shady GARCIA, Maile Unavailable Cassie Richardson MD Primary Care Provider [phone] Rey DALEY, Collin Unavailable Rey DALEY, Collin Unavailable Shady GARCIA, Maile Unavailable Cassie Richardson MD Primary Care Provider Rey DALEY, Collin Unavailable Rey DALEY, Collin Unavailable Shady GARCIA, Maile Unavailable [phone] LINETTE LAMB DO Attending Unavailable ROGERIO WILKINSON DO Admitting Unavailabl e AA NO PCP, NO PCP Primary Care Unavailable STEVEN DALEY, BRENDA Consulting Unavailable Daren Dimas MD Unavailable Jesus Raza APRN.CNP Primary Care Provider Shady GARCIA, Maile Unavailable CASSIE RICHARDSON Primary Care Unavailable DAREN DIMAS Attending Unavailable DAREN DIMAS Referring Unavailable CASSIE RICHARDSON Primary Care Unavailable DAREN DIMAS Attending Unavailable DAREN DIMAS Referring Unavailable Medical Maddock Comment on above: Order Comment: Speci men Type: BLOOD SPECIMEN Ordering Facility: [facility] Address: [address] [place] [address] Result Comment: The [place] Diabetes [employer] (ADA) provides guidance for cutoff values for fasting glucose and random glucose. The ADA defines fasting as no caloric intake for at least 8 hours. Fasting plasma glucose results between 100 to 125 mg/dL indicate increased risk for diabetes (prediabetes). Fasting plasma glucose results greater than or equal to 126 mg/dL meet the criteria for diagnosis of diabetes. In the absence of unequivocal hyperglycemia, results should be confirmed by repeat testing. In a patient with classic symptoms of hyperglycemia or hyperglycemic crisis, random plasma glucose results greater than or equal to 200 mg/dL meet the criteria for diagnosis of diabetes. Reference: Standards of Medical Care in Diabetes 2016, [place] Diabetes Association. Diabetes Care. 2016.39(Suppl 1). Performed By: #### 2 4321-2 #### [facility] CLIA [id number] 1 [place] [address] [place] Potassium [Moles/Vol] 4.4 mmol/L Normal 3.7-5.1 [facility] Comment on above: Order Comment: Speci men Type: BLOOD SPECIMEN Ordering Facility: [facility] Address: [address] [place] [address] Performed By: #### 2 4321-2 #### [facility] CLIA [id number] [address] [place] Sodium [Moles/Vol] 132 mmol/L Low 136-144 [facility] Comment on above: Order Comment: Speci men Type: BLOOD SPECIMEN Ordering Facility: [facility] Address: [address] [place] [address] Performed By: #### 2 4321-2 #### [facility] CLIA [id number] 1 [place] [address] [place] Urea nitrogen [Mass/Vol] 30 mg/dL High 9-24 [facility] Comment on above: Order Comment: Speci men Type: BLOOD SPECIMEN Ordering Facility: [facility] Address: [address] [place] [address] Performed By: #### 2 4321-2 #### [facility] CLIA [id number] [address] CBC panel Auto (Bld)on 11-30 Erythrocyte distribution width (RBC) [Ratio] 12.7 % Normal 11.5-15.0 [facility] Comment on above: Order Comment: Speci men Type: BLOOD SPECIMEN Ordering Facility: [facility] Address: [address] [place] [address] Performed By: #### 5 8410-2 #### [facility] CLIA [id number] [address] Hematocrit (Bld) [Volume fraction] 47.8 % Normal 39.0-51.0 [facility] Comment on above: Order Comment: Speci men Type: BLOOD SPECIMEN Ordering Facility: [facility] Address: [address] [place] [address] Performed By: #### 5 8410-2 #### [facility] CLIA [id number] [address] Hemoglobin (Bld) [Mass/Vol] 16.5 g/dL Normal 13.0-17.0 [facility] Comment on above: Order Comment: Speci men Type: BLOOD SPECIMEN Ordering Facility: [facility] Address: [address] [place] [address] Performed By: #### 5 8410-2 #### [facility] CLIA [id number] [address] MCH (RBC) [Entitic mass] 29.8 pg Normal 26.0-34.0 [facility] Comment on above: Order Comment: Speci men Type: BLOOD SPECIMEN Ordering Facility: [facility] Address: [address] [place] [address] Performed By: #### 5 8410-2 #### [facility] CLIA [id number] [address] MCHC (RBC) [Mass/Vol] 34.5 g/dL Normal 30.5-36.0 [facility] Comment on above: Order Comment: Speci men Type: BLOOD SPECIMEN Ordering Facility: [facility] Address: [address] [address] Performed By: #### 5 8410-2 #### [facility] CLIA [id number] [address] MCV (RBC) [Entitic vol] 86.3 fL Normal 80.0-100.0 [facility] Comment on above: Order Comment: Speci men Type: BLOOD SPECIMEN Ordering Facility: [facility] Address: [address] [address] Performed By: #### 5 8410-2 #### [facility] CLIA [id number] [address] Nucleated RBC (Bld) [#/Vol] 10*3/uL Normal <0.01 [facility] Comment on above: Order Comment: Speci men Type: BLOOD SPECIMEN Ordering Facility: [facility] Address: [address] [address] Performed By: #### 5 8410-2 #### [facility] CLIA [id number] [address] Platelet mean volume (Bld) [Entitic vol] 9.9 fL Normal 9.0-12.7 [facility] Comment on above: Order Comment: Speci men Type: BLOOD SPECIMEN Ordering Facility: [facility] Address: [address] [address] Performed By: #### 5 8410-2 #### [facility] CLIA [id number] [address] Platelets (Bld) [#/Vol] 380 10*3/uL Normal 150-400 [facility] Comment on above: Order Comment: Speci men Type: BLOOD SPECIMEN Ordering Facility: [facility] Address: [address] [address] Performed By: #### 5 8410-2 #### [facility] CLIA [id number] [address] [place] [address] [place] RBC (Bld) [#/Vol] 5.54 10*6/uL Normal 4.20-6.00 [facility] Comment on above: Order Comment: Speci men Type: BLOOD SPECIMEN Ordering Facility: [facility] Address: [address] [place] [address] Performed By: #### 5 8410-2 #### [facility] CLIA [id number] [address] [place] WBC (Bld) [#/Vol] 7.73 10*3/uL Normal 3.70-11.00 [facility] Comment on above: Order Comment: Speci men Type: BLOOD SPECIMEN Ordering Facility: [facility] Address: [place] [place] [address] Performed By: #### 5 8410-2 #### [facility] CLIA [id number] [address] NURSING PROGon 11-30-2022 NURSING PROG HNO ID: [id number] Author: Mariposa Nina RN Service: Nursing Author Type: Registered Nurse Type: Nursing Progress Note Filed: 11/30/2022 2:43 AM Note Text: No complaint of nausea at this time, per pt sensation of bloating has somewhat improved. Medicated with tramadol for discomfort, RN will continue to monitor. Normal [facility] XR ABDOMEN 1V SUPINEon 11-30 XR ABDOMEN 1V SUPINE * * *Final Report* * * DATE OF EXAM: Nov 30 2022 8:47AM AKX [id number] - XR ABDOMEN 1V SUPINE / PROCEDURE REASON: Nausea/vomiting * * * * Physician Interpretation * * * * EXAMINATION: XR ABDOMEN 1V SUPINE HISTORY: C/O REOCCURING NAUSEA AND PAIN SINCE ILEOSTOMY REVERSAL ON 11/26 Nausea/vomiting. TECHNIQUE: XR ABDOMEN 1V SUPINE Laterality: NOT APPLICABLE Number of different views (projections): 1 M: XB_1 COMPARISON: Barium study September 16, 2022 RESULT: There is extensive gaseous dilatation of bowel. There is a large gas-filled structure within the left upper quadrant region which could potentially represent the stomach. Fairly extensive dilatation of small bowel. No other significant abnormality. IMPRESSION: Diffuse gaseous dilatation of bowel and potentially the stomach. This is somewhat incompletely assessed by radiograph. Bowel obstruction would be the diagnosis of exclusion. Consider further assessment with CT. Healthcare [employer] Consultant: PSCB Transcribe Date/Time: Nov 30 2022 9:05A Dictated by : YOGESH BONILLA MD This examination was interpreted and the report reviewed and electronically signed by: YOGESH BONILLA MD on Nov 30 2022 9:07AM EST [id number] Normal [facility] Basic metabolic 2000 panelon 11-29-2022 Anion gap [Moles/Vol] 13 mmol/L Normal 9-18 [facility] Comment on above: Order Comment: Speci men Type: BLOOD SPECIMEN Ordering Facility: [facility] Address: [address] [address] Performed By: #### 5 8410-2 #### [facility] CLIA [id number] 1 [place] [address] [place] Calcium [Mass/Vol] 9.7 mg/dL Normal 8.5-10.2 [facility] Comment on above: Order Comment: Speci men Type: BLOOD SPECIMEN Ordering Facility: [facility] Address: [address] [address] Performed By: #### 5 8410-2 #### [facility] CLIA [id number] 1 [place] [address] [place] Chloride [Moles/Vol] 97 mmol/L Normal 97-105 [facility] Comment on above: Order Comment: Speci men Type: BLOOD SPECIMEN Ordering Facility: [facility] Address: [address] [address] Performed By: #### 5 8410-2 #### [facility] CLIA [id number] 1 [place] [address] [place] CO2 [Moles/Vol] 25 mmol/L Normal 22-30 [facility] Comment on above: Order Comment: Speci men Type: BLOOD SPECIMEN Ordering Facility: [facility] Address: [address] [address] Performed By: #### 5 8410-2 #### [facility] CLIA [id number] [address] [place] Creatinine [Mass/Vol] 0.94 mg/dL Normal 0.73-1.22 [facility] Comment on above: Order Comment: Jeff adolfo Type: BLOOD SPECIMEN Ordering Facility: [facility] Address: [address] [place] [address] Performed By: #### 5 8410-2 #### [facility] CLIA [id number] [address] ESTIMATED GLOMERULAR FILTRATION RATE 108 mL/min/1.73m??? Normal >=60 [facility] Comment on above: Order Comment: Jeff mata Type: BLOOD SPECIMEN Ordering Facility: [facility] Address: [address] [place] [address] Result Comment: Jody mated Glomerular Filtration Rate (eGFR) is calculated using the 2020 CKD-EPI creatinine equation. This equation utilizes serum creatinine, sex, and age as parameters. The creatinine assay has traceable calibration to isotope dilution-mass spectrometry. Refer to KDIGO guidelines for clinical interpretation. In patients with unstable renal function, e.g. those with acute kidney injury, the eGFR may not accurately reflect actual GFR. Performed By: #### 5 8410-2 #### [facility] CLIA [id number] [address] Glucose [Mass/Vol] 113 mg/dL High 74-99 [facility] Comment on above: Order Comment: Jeff adolfo Type: BLOOD SPECIMEN Ordering Facility: [facility] Address: [address] [place] [address] Result Comment: The [place] Diabetes Association (ADA) provides guidance for cutoff values for fasting glucose and random glucose. The ADA defines fasting as no caloric intake for at least 8 hours. Fasting plasma glucose results between 100 to 125 mg/dL indicate increased risk for diabetes (prediabetes). Fasting plasma glucose results greater than or equal to 126 mg/dL meet the criteria for diagnosis of diabetes. In the absence of unequivocal hyperglycemia, results should be confirmed by repeat testing. In a patient with classic symptoms of hyperglycemia or hyperglycemic crisis, random plasma glucose results greater than or equal to 200 mg/dL meet the criteria for diagnosis of diabetes. Reference: Standards of Medical Care in Diabetes 2016, [place] [employer]. Diabetes Care. 2016.39(Suppl 1). Performed By: #### 5 8410-2 #### [facility] CLIA [id number] [address] Potassium [Moles/Vol] 3.9 mmol/L Normal 3.7-5.1 [facility] Comment on above: Order Comment: Speci men Type: BLOOD SPECIMEN Ordering Facility: [facility] Address: [address] [address] Performed By: #### 5 8410-2 #### [facility] CLIA [id number] [address] Sodium [Moles/Vol] 135 mmol/L Low 136-144 [facility] Comment on above: Order Comment: Speci men Type: BLOOD SPECIMEN Ordering Facility: [facility] Address: [address] [address] Performed By: #### 5 8410-2 #### [facility] CLIA [id number] [address] Urea nitrogen [Mass/Vol] 13 mg/dL Normal 9-24 [facility] Comment on above: Order Comment: Speci men Type: BLOOD SPECIMEN Ordering Facility: [facility] Address: [address] [address] Performed By: #### 5 8410-2 #### [facility] CLIA [id number] [address] CBC panel Auto (Bld)on 11-29 Erythrocyte distribution width (RBC) [Ratio] 13.2 % Normal 11.5-15.0 [facility] Comment on above: Order Comment: Speci men Type: BLOOD SPECIMEN Ordering Facility: [facility] Address: [address] [address] Performed By: #### 5 8410-2 #### [facility] CLIA [id number] [address] [place] Hematocrit (Bld) [Volume fraction] 46.7 % Normal 39.0-51.0 [facility] Comment on above: Order Comment: Speci men Type: BLOOD SPECIMEN Ordering Facility: [facility] Address: [address] [place] [address] Performed By: #### 5 8410-2 #### [facility] CLIA [id number] [address] Hemoglobin (Bld) [Mass/Vol] 15.8 g/dL Normal 13.0-17.0 [facility] Comment on above: Order Comment: Speci men Type: BLOOD SPECIMEN Ordering Facility: [facility] Address: [address] [place] [address] Performed By: #### 5 8410-2 #### [facility] CLIA [id number] [address] MCH (RBC) [Entitic mass] 29.4 pg Normal 26.0-34.0 [facility] Comment on above: Order Comment: Speci men Type: BLOOD SPECIMEN Ordering Facility: [facility] Address: [address] [place] [address] Performed By: #### 5 8410-2 #### [facility] CLIA [id number] [address] [place] OF [facility] MCHC (RBC) [Mass/Vol] 33.8 g/dL Normal 30.5-36.0 [facility] Comment on above: Order Comment: Speci men Type: BLOOD SPECIMEN Ordering Facility: [facility] Address: [address] [place] [address] Performed By: #### 5 8410-2 #### [facility] CLIA [id number] [address] MCV (RBC) [Entitic vol] 86.8 fL Normal 80.0-100.0 [facility] Comment on above: Order Comment: Speci men Type: BLOOD SPECIMEN Ordering Facility: [facility] Address: [address] [place] [address] Performed By: #### 5 8410-2 #### [facility] CLIA [id number] [address] [place] Nucleated RBC (Bld) [#/Vol] 10*3/uL Normal <0.01 [facility] Comment on above: Order Comment: Speci men Type: BLOOD SPECIMEN Ordering Facility: [facility] Address: [address] [place] [address] Performed By: #### 5 8410-2 #### [facility] CLIA [id number] [address] [place] Platelet mean volume (Bld) [Entitic vol] 9.4 fL Normal 9.0-12.7 [facility] Comment on above: Order Comment: Speci men Type: BLOOD SPECIMEN Ordering Facility: [facility] Address: [address] [place] [address] Performed By: #### 5 8410-2 #### [facility] CLIA [id number] [address] [place] Platelets (Bld) [#/Vol] 278 10*3/uL Normal 150-400 [facility] Comment on above: Order Comment: Speci men Type: BLOOD SPECIMEN Ordering Facility: [facility] Address: [address] [place] [address] Performed By: #### 5 8410-2 #### [facility] CLIA [id number] [address] [place] RBC (Bld) [#/Vol] 5.38 10*6/uL Normal 4.20-6.00 [facility] Comment on above: Order Comment: Speci men Type: BLOOD SPECIMEN Ordering Facility: [facility] Address: [address] [place] [address] Performed By: #### 5 8410-2 #### [facility] CLIA [id number] 1 [place] [address] [place] WBC (Bld) [#/Vol] 7.87 10*3/uL Normal 3.70-11.00 [facility] Comment on above: Order Comment: Speci men Type: BLOOD SPECIMEN Ordering Facility: [facility] Address: [address] [address] Performed By: #### 5 8410-2 #### [facility] CLIA [id number] [address] [place] NURSING PROGon 11-29-2022 NURSING PROG HNO ID: [id number] Author: Asif Dacosta RN Service: Nursing Author Type: Registered Nurse Type: Nursing Progress Note Filed: 11/29/2022 3:42 PM Note Text: Surgery team notified of pt increased anxiety and feelings of nausea with feelings of bloating. New orders for as needed anxiety medications implemented. IVF resumed . Also advised that the pt request in the event of the need for an NG placement, that only a physician place the NG. Will continue to monitor. Normal [facility] Basic metabolic 2000 panelon 11-28-2022 Anion gap [Moles/Vol] 15 mmol/L Normal 9-18 [facility] Comment on above: Order Comment: Speci men Type: BLOOD SPECIMEN Ordering Facility: [facility] Address: [address] [address] Performed By: #### 2 4321-2 #### [facility] CLIA [id number] [address] [place] [address] [place] Calcium [Mass/Vol] 9.7 mg/dL Normal 8.5-10.2 [facility] Comment on above: Order Comment: Speci men Type: BLOOD SPECIMEN Ordering Facility: [facility] Address: [address] [address] Performed By: #### 2 4321-2 #### [facility] CLIA [id number] 1 [place] [address] [place] Chloride [Moles/Vol] 99 mmol/L Normal 97-105 [facility] Comment on above: Order Comment: Speci men Type: BLOOD SPECIMEN Ordering Facility: [facility] Address: [address] [address] Performed By: #### 2 4321-2 #### [facility] CLIA [id number] [address] [place] CO2 [Moles/Vol] 22 mmol/L Normal 22-30 [facility] Comment on above: Order Comment: Speci men Type: BLOOD SPECIMEN Ordering Facility: [facility] Address: [address] [address] Performed By: #### 2 4321-2 #### [facility] CLIA [id number] [address] Creatinine [Mass/Vol] 0.82 mg/dL Normal 0.73-1.22 [facility] Comment on above: Order Comment: Speci men Type: BLOOD SPECIMEN Ordering Facility: [facility] Address: [address] [place] [address] Performed By: #### 2 4321-2 #### [facility] CLIA [id number] [address] ESTIMATED GLOMERULAR FILTRATION RATE 117 mL/min/1.73m??? Normal >=60 [facility] Comment on above: Order Comment: Speci men Type: BLOOD SPECIMEN Ordering Facility: [facility] Address: [address] [place] [address] Result Comment: Jody mated Glomerular Filtration Rate (eGFR) is calculated using the 2020 CKD-EPI creatinine equation. This equation utilizes serum creatinine, sex, and age as parameters. The creatinine assay has traceable calibration to isotope dilution-mass spectrometry. Refer to KDIGO guidelines for clinical interpretation. In patients with unstable renal function, e.g. those with acute kidney injury, the eGFR may not accurately reflect actual GFR. Performed By: #### 2 4321-2 #### [facility] CLIA [id number] [address] [place] Glucose [Mass/Vol] 117 mg/dL High 74-99 [facility] Comment on above: Order Comment: Speci men Type: BLOOD SPECIMEN Ordering Facility: [facility] Address: [address] [place] [address] Result Comment: The [place] Diabetes [employer] (ADA) provides guidance for cutoff values for fasting glucose and random glucose. The ADA defines fasting as no caloric intake for at least 8 hours. Fasting plasma glucose results between 100 to 125 mg/dL indicate increased risk for diabetes (prediabetes). Fasting plasma glucose results greater than or equal to 126 mg/dL meet the criteria for diagnosis of diabetes. In the absence of unequivocal hyperglycemia, results should be confirmed by repeat testing. In a patient with classic symptoms of hyperglycemia or hyperglycemic crisis, random plasma glucose results greater than or equal to 200 mg/dL meet the criteria for diagnosis of diabetes. Reference: Standards of Medical Care in Diabetes 2016, [place] [employer]. Diabetes Care. 2016.39(Suppl 1). Performed By: #### 2 4321-2 #### [facility] CLIA [id number] [address] OF [facility] Potassium [Moles/Vol] 3.6 mmol/L Low 3.7-5.1 [facility] Comment on above: Order Comment: Jeff mata Type: BLOOD SPECIMEN Ordering Facility: [facility] Address: [address] [address] Performed By: #### 2 4321-2 #### [facility] CLIA [id number] [address] STATES OF [facility] Sodium [Moles/Vol] 136 mmol/L Normal 136-144 [facility] Comment on above: Order Comment: Jeff mata Type: BLOOD SPECIMEN Ordering Facility: [facility] Address: [address] [place] [address] Performed By: #### 2 4321-2 #### [facility] CLIA [id number] [address] [place] [address] [place] Urea nitrogen [Mass/Vol] 8 mg/dL Low 9-24 [facility] Comment on above: Order Comment: Jeff mata Type: BLOOD SPECIMEN Ordering Facility: [facility] Address: [address] [address] Performed By: #### 2 4321-2 #### [facility] CLIA [id number] [address] [place] CBC panel Auto (Bld)on 11-28 Erythrocyte distribution width (RBC) [Ratio] 13.1 % Normal 11.5-15.0 [facility] Comment on above: Order Comment: Speci men Type: BLOOD SPECIMEN Ordering Facility: [facility] Address: [address] [address] Performed By: #### 2 4321-2 #### [facility] CLIA [id number] [address] Hematocrit (Bld) [Volume fraction] 46.3 % Normal 39.0-51.0 [facility] Comment on above: Order Comment: Speci men Type: BLOOD SPECIMEN Ordering Facility: [facility] Address: [address] [place] [address] Performed By: #### 2 1-2 #### [facility] CLIA [id number] [address] STATES OF [facility] Hemoglobin (Bld) [Mass/Vol] 15.7 g/dL Normal 13.0-17.0 [facility] Comment on above: Order Comment: Speci men Type: BLOOD SPECIMEN Ordering Facility: [facility] Address: [address] [address] Performed By: #### 2 1-2 #### [facility] CLIA [id number] [address] MCH (RBC) [Entitic mass] 29.5 pg Normal 26.0-34.0 [facility] Comment on above: Order Comment: Speci men Type: BLOOD SPECIMEN Ordering Facility: [facility] Address: [address] [address] Performed By: #### 2 1-2 #### [facility] CLIA [id number] [address] MCHC (RBC) [Mass/Vol] 33.9 g/dL Normal 30.5-36.0 [facility] Comment on above: Order Comment: Speci men Type: BLOOD SPECIMEN Ordering Facility: [facility] Address: [address] [place] [address] Performed By: #### 2 1-2 #### [facility] CLIA [id number] [address] MCV (RBC) [Entitic vol] 87.0 fL Normal 80.0-100.0 [facility] Comment on above: Order Comment: Speci men Type: BLOOD SPECIMEN Ordering Facility: [facility] Address: [address] [place] [address] Performed By: #### 2 4321-2 #### [facility] CLIA [id number] [address] Nucleated RBC (Bld) [#/Vol] 10*3/uL Normal <0.01 [facility] Comment on above: Order Comment: Speci men Type: BLOOD SPECIMEN Ordering Facility: [facility] Address: [address] [place] [address] Performed By: #### 2 4321-2 #### [facility] CLIA [id number] [address] Platelet mean volume (Bld) [Entitic vol] 9.3 fL Normal 9.0-12.7 [facility] Comment on above: Order Comment: Speci men Type: BLOOD SPECIMEN Ordering Facility: [facility] Address: [address] [place] [address] Performed By: #### 2 4321-2 #### [facility] CLIA [id number] [address] Platelets (Bld) [#/Vol] 285 10*3/uL Normal 150-400 [facility] Comment on above: Order Comment: Speci men Type: BLOOD SPECIMEN Ordering Facility: [facility] Address: [address] [place] [address] Performed By: #### 2 4321-2 #### [facility] CLIA [id number] [address] [place] RBC (Bld) [#/Vol] 5.32 10*6/uL Normal 4.20-6.00 [facility] Comment on above: Order Comment: Speci men Type: BLOOD SPECIMEN Ordering Facility: [facility] Address: [address] [place] [address] Performed By: #### 2 4321-2 #### [facility] CLIA [id number] [address] WBC (Bld) [#/Vol] 13.28 10*3/uL High 3.70-11.00 [facility] Comment on above: Order Comment: Speci men Type: BLOOD SPECIMEN Ordering Facility: [facility] Address: [address] [place] [address] Performed By: #### 2 4321-2 #### [facility] CLIA [id number] [address] Basic metabolic 2000 panelon 11-27-2022 Anion gap [Moles/Vol] 10 mmol/L Normal 9-18 [facility] Comment on above: Order Comment: Speci men Type: BLOOD SPECIMEN Ordering Facility: [facility] Address: [address] [place] [address] Performed By: #### 5 8410-2 #### [facility] CLIA [id number] [address] Calcium [Mass/Vol] 8.2 mg/dL Low 8.5-10.2 [facility] Comment on above: Order Comment: Speci men Type: BLOOD SPECIMEN Ordering Facility: [facility] Address: [address] [place] [address] Performed By: #### 5 8410-2 #### [facility] CLIA [id number] [address] STATES [facility] Chloride [Moles/Vol] 106 mmol/L High 97-105 [facility] Comment on above: Order Comment: Speci men Type: BLOOD SPECIMEN Ordering Facility: [facility] Address: [address] [place] [address] Performed By: #### 5 8410-2 #### [facility] CLIA [id number] [address] [place] CO2 [Moles/Vol] 21 mmol/L Low 22-30 [facility] Comment on above: Order Comment: Jeff mata Type: BLOOD SPECIMEN Ordering Facility: [facility] Address: [address] [address] Performed By: #### 5 8410-2 #### [facility] CLIA [id number] [address] Creatinine [Mass/Vol] 0.85 mg/dL Normal 0.73-1.22 [facility] Comment on above: Order Comment: Jeff adolfo Type: BLOOD SPECIMEN Ordering Facility: [facility] Address: [address] [place] [address] Performed By: #### 5 8410-2 #### [facility] CLIA [id number] [address] ESTIMATED GLOMERULAR FILTRATION RATE 115 mL/min/1.73m??? Normal >=60 [facility] Comment on above: Order Comment: Jeff adolfo Type: BLOOD SPECIMEN Ordering Facility: [facility] Address: [address] [place] [address] Result Comment: Jody mated Glomerular Filtration Rate (eGFR) is calculated using the 2020 CKD-EPI creatinine equation. This equation utilizes serum creatinine, sex, and age as parameters. The creatinine assay has traceable calibration to isotope dilution-mass spectrometry. Refer to KDIGO guidelines for clinical interpretation. In patients with unstable renal function, e.g. those with acute kidney injury, the eGFR may not accurately reflect actual GFR. Performed By: #### 5 8410-2 #### [facility] CLIA [id number] [address] Glucose [Mass/Vol] 87 mg/dL Normal 74-99 [facility] Comment on above: Order Comment: Jeff adolfo Type: BLOOD SPECIMEN Ordering Facility: [facility] Address: [address] [place] [address] Result Comment: The [place] Diabetes [employer] (ADA) provides guidance for cutoff values for fasting glucose and random glucose. The ADA defines fasting as no caloric intake for at least 8 hours. Fasting plasma glucose results between 100 to 125 mg/dL indicate increased risk for diabetes (prediabetes). Fasting plasma glucose results greater than or equal to 126 mg/dL meet the criteria for diagnosis of diabetes. In the absence of unequivocal hyperglycemia, results should be confirmed by repeat testing. In a patient with classic symptoms of hyperglycemia or hyperglycemic crisis, random plasma glucose results greater than or equal to 200 mg/dL meet the criteria for diagnosis of diabetes. Reference: Standards of Medical Care in Diabetes 2016, [place] [employer]. Diabetes Care. 2016.39(Suppl 1). Performed By: #### 5 8410-2 #### [facility] CLIA [id number] [address] STATES [place] Potassium [Moles/Vol] 4.0 mmol/L Normal 3.7-5.1 [facility] Comment on above: Order Comment: Jeannettei adolfo Type: BLOOD SPECIMEN Ordering Facility: [facility] Address: [address] [place] [address] Performed By: #### 5 8410-2 #### [facility] CLIA [id number] [address] STATES OF [facility] Sodium [Moles/Vol] 137 mmol/L Normal 136-144 [facility] Comment on above: Order Comment: Jeff mata Type: BLOOD SPECIMEN Ordering Facility: [facility] Address: [address] [place] [address] Performed By: #### 5 8410-2 #### [facility] CLIA [id number] [address] STATES [facility] Urea nitrogen [Mass/Vol] 8 mg/dL Low 9-24 [facility] Comment on above: Order Comment: Jeannettei adolfo Type: BLOOD SPECIMEN Ordering Facility: [facility] Address: [address] [place] [address] Performed By: #### 5 8410-2 #### [facility] CLIA [id number] [address] [place] CBC panel Auto (Bld)on 11-27 Erythrocyte distribution width (RBC) [Ratio] 13.1 % Normal 11.5-15.0 [facility] Comment on above: Order Comment: Speci men Type: BLOOD SPECIMEN Ordering Facility: [facility] Address: [address] [address] Performed By: #### 2 4321-2 #### [facility] CLIA [id number] [address] Hematocrit (Bld) [Volume fraction] 38.7 % Low 39.0-51.0 [facility] Comment on above: Order Comment: Speci men Type: BLOOD SPECIMEN Ordering Facility: [facility] Address: [address] [address] Performed By: #### 2 4321-2 #### [facility] CLIA [id number] [address] OF [facility] Hemoglobin (Bld) [Mass/Vol] 13.1 g/dL Normal 13.0-17.0 [facility] Comment on above: Order Comment: Speci men Type: BLOOD SPECIMEN Ordering Facility: [facility] Address: [address] [place] [address] Performed By: #### 2 4321-2 #### [facility] CLIA [id number] [address] OF [facility] MCH (RBC) [Entitic mass] 30.1 pg Normal 26.0-34.0 [facility] Comment on above: Order Comment: Speci men Type: BLOOD SPECIMEN Ordering Facility: [facility] Address: [address] [address] Performed By: #### 2 4321-2 #### [facility] CLIA [id number] [address] [place] MCHC (RBC) [Mass/Vol] 33.9 g/dL Normal 30.5-36.0 [facility] Comment on above: Order Comment: Speci men Type: BLOOD SPECIMEN Ordering Facility: [facility] Address: [address] [place] [address] Performed By: #### 2 4321-2 #### [facility] CLIA [id number] [address] MCV (RBC) [Entitic vol] 89.0 fL Normal 80.0-100.0 [facility] Comment on above: Order Comment: Speci men Type: BLOOD SPECIMEN Ordering Facility: [facility] Address: [address] [place] [address] Performed By: #### 2 4321-2 #### [facility] CLIA [id number] [address] [place] Nucleated RBC (Bld) [#/Vol] 10*3/uL Normal <0.01 [facility] Comment on above: Order Comment: Speci men Type: BLOOD SPECIMEN Ordering Facility: [facility] Address: [address] [place] [address] Performed By: #### 2 4321-2 #### [facility] CLIA [id number] [address] Platelet mean volume (Bld) [Entitic vol] 9.6 fL Normal 9.0-12.7 [facility] Comment on above: Order Comment: Speci men Type: BLOOD SPECIMEN Ordering Facility: [facility] Address: [address] [place] [address] Performed By: #### 2 4321-2 #### [facility] CLIA [id number] [address] Platelets (Bld) [#/Vol] 198 10*3/uL Normal 150-400 [facility] Comment on above: Order Comment: Speci men Type: BLOOD SPECIMEN Ordering Facility: [facility] Address: [address] [address] Performed By: #### 2 4321-2 #### [facility] CLIA [id number] [address] [place] RBC (Bld) [#/Vol] 4.35 10*6/uL Normal 4.20-6.00 [facility] Comment on above: Order Comment: Speci men Type: BLOOD SPECIMEN Ordering Facility: [facility] Address: [address] [place] [address] Performed By: #### 2 4321-2 #### [facility] CLIA [id number] [address] [id number] [facility] WBC (Bld) [#/Vol] 8.14 10*3/uL Normal 3.70-11.00 [facility] Comment on above: Order Comment: Speci men Type: BLOOD SPECIMEN Ordering Facility: [facility] Address: [place] [address] Performed By: #### 2 4321-2 #### [facility] CLIA [id number] 1 [place] [address] [facility] ANES POSTPROC EVALon 023 ANES POSTPROC EVAL HNO ID: [id number] Author: Collin Capone DO Service: Anesthesiology Author Type: Physician Type: Anesthesia Postprocedure Evaluation Filed: 11/26/2022 11:22 AM Note Text: POST ANESTHESIA EVALUATION NOTE : 1985 Procedure Summary Date: 11/26/22 Room / Location: [place] [address] [place] [address] OR Anesthesia Start: 729 Anesthesia Stop: 925 Procedure: CLOSURE ILEOSTOMY (Pending) Diagnosis: Colonic inertia (Colonic inertia [K59.9]) Surgeons: Collin Le MD Responsible Provider: Collin Capone DO Anesthesia Type: general ASA Status: 2 Anesthesia Type: general Airway Type: ETT Last Vitals Vitals Value Taken Time BP 122/81 11/26/22 1115 Temp 36 ?C (96.8 ?F) 11/26/22 0925 Pulse 70 11/26/22 1121 Resp 16 11/26/22 1121 SpO2 100 % 11/26/22 1121 Vitals shown include unvalidated device data. Post Anesthesia Patient Status Anticipated Disposition: inpatient floor planned admission. Neurological Status: aware and responsive. Pulmonary Status: breathing comfortably on room air Airway Control: returned to baseline unsupported. Cardiovascular Status: stable. Pain Management: clinically adequate - multimodal analgesia pain management approach Postoperative Hydration: acceptable. Intraoperative Events: no significant anesthesia events Post Operative Nausea/Vomiting Status: no significant post operative nausea or vomiting Recommendation: further care per PACU/ICU/floor team. Anesthesia Observations No Documentation SIGNATURE: Collin Capone DO PATIENT NAME: Eunice Vargas DATE: November 26, 2022 TIME: 11:22 AM CSN: [id number] [facility] ANES PRE-OPon 11-26-2022 ANES PRE-OP HNO ID: [id number] Author: Collin Capone DO Service: Anesthesiology Author Type: Physician Type: Anesthesia Preprocedure Evaluation Filed: 11/26/2022 7:19 AM Note Text: ANESTHESIOLOGY DAY OF SURGERY NOTE : 1985 Procedure Information Date/Time: 11/26/22729 Procedure: CLOSURE ILEOSTOMY (Pending) Location: [place] [address] [place] [address] OR Surgeons: Collin Le MD Estimated body mass index is 26.63 kg/m? as calculated from the following: Height as of 11/21/22: 167.6 cm (5' 6). Weight as of 11/21/22: 74.8 kg (165 lb). Most recent hematocrit and potassium results: Hematocrit 42.9 11/21/2022 Potassium 4.3 11/21/2022 Potassium (POCT) 4.2 09/21/2021 Relevant Problems Gastrointestinal (+) Ileostomy present (HCC) I - PHYSICAL EVALUATION AIRWAY Patient intubated: No. Tracheostomy tube not present Mallampati: I. TM distance: >3 FB. Neck ROM: full ROM without neurological symptoms. Mouth opening: adequate. Short neck: no. Thick neck: no DENTAL Dental findings: teeth intact. Additional exam findings: no II - ANESTHESIA PLAN ASA Score: 2 Anesthetic Plan: general Airway type: ETT The patient is not a current smoker. NPO Status: adequate Anesthetic plan additional comments: TAP blocks. Beta Juan Monitoring Plan Monitoring plan: standard ASA. Post Procedure Analgesic Plan Postoperative analgesic plan: multimodal analgesia and parenteral or oral opioids. Informed Consent Anesthetic risks, benefits, alternatives, personnel and consent discussed: yes. Patient / Responsible Democrat agrees to proceed: yes Patient / Surrogate agrees to blood products: blood products not planned Significant changes in the patient condition since the History and Physical, not otherwise documented in primary service progress note: no. Potential Anesthesia issues that may suggest increased risk of complications or contraindication to planned procedure: none. Vitals Value Taken Time BP 123/95 04/18/23 0645 Pulse 63 11/26/2245 Resp 16 11/26/22644 Temp 36.9 ?C (98.4 ?F) 11/26/22644 SpO2 100 % 11/26/22644 Facility-Administered Medications as of 11/26/2022 Medication Dose Route Frequency - [COMPLETED] enoxaparin 40 mg injection (LOVENOX) 40 mg SUBCUTANEOUS Pre-Op Once - lidocaine 10 mg/mL (1 %) 1-2 mg injection (XYLOCAINE) 0.1-0.2 mL INTRADERMAL PRN - lactated ringers iv infusion 5-30 mL/hr INTRAVENOUS CONTINUOUS - NaCl 0.9% iv flush bag 20 mL INTRAVENOUS PRN - ceFAZolin iv piggyback 2 g in D5W (iso-osmotic) 100 mL (ANCEF) 2 g INTRAVENOUS Pre-Op Once Outpatient Medications as of 11/26/2022 Medication Sig - ondansetron orally disintegrating (ZOFRAN ODT) 4 mg disintegrating tablet Take 1 tablet by mouth every 8 hours as needed for nausea/vomiting. - loperamide (IMODIUM) 2 mg cap(s) Take 1 capsule by mouth three times daily. (Patient taking differently: Take 2 mg by mouth as needed.) - Miscellaneous Medical Supply Ileostomy supplies: - 1 Box Coloplast One piece Assura drainable pouch OR - 2 boxes Coloplast Tacho red flat wafer # 13889 - 1 box Coloplast Tacho red drainable pouches # 95112 - 1 box Ryan small barrier rings # 7805 - 1 tube stomahesive paste # 2650 - 1 box Coloplast Elastic barrier strips # 799586 - 1 bottle stomahesive powder # 90414 - 1 box adhesive remover wipes - 1 box skin barrier prep wipes # - MULTIVITAMIN ORAL Take 1 tablet by mouth once daily. I have interviewed and examined the patient. I have reviewed the medical record and/or the pre-anesthesia evaluation, pertinent labs, and test results. This contains updated information obtained within 48 hours of Surgery/Procedure. SIGNATURE: Collin Capone DO PATIENT NAME: Eunice Vargas DATE: November 26, 2022 TIME: 7:18 AM CSN: [id number] Normal [facility] HISTORY PHYSICALon 3 HISTORY PHYSICAL HNO ID: [id number] Author: Collin Le MD Service: Colorectal Author Type: Physician Type: HANDP Filed: 11/26/2022 7:23 AM Note Text: UPDATED HISTORY AND PHYSICAL EXAMINATION SERVICE DATE: 11/26/22 SERVICE TIME: 7:22 AM PHYSICAL EXAM MUST BE COMPLETED ON ADMISSION The History and Physical (completed in the past 30 days) has been reviewed and the patient has been examined. The contents accurately reflect the patient's condition with the following additions or revisions since the HANDP was completed. Examination indicates no changes. This HANDP can be found in the Electronic Medical Record. SIGNATURE: Collin Le MD PATIENT NAME: Eunice Vargas DATE: 11/26/22 TIME: 7:22 AM PAGER: [phone] [facility] OPERATIVE NOon 11-26-2022 OPERATIVE NO HNO ID: [id number] Author: Collin Le MD Service: Colorectal Author Type: Physician Type: Operative Report Filed: 11/26/2022 9:31 AM Note Text: OPERATIVE REPORT Log ID: [id number] Surgery Date: 11/26/2022 Incision/Procedure Start Time: 7:59 AM Incision Close/Procedure End Time: 9:14 AM Surgeon(s) and Sleeve Sewer(s): Surgeon(s) and Role: * Collin Le MD - Primary * Alexander Nolen MD - Resident - Assisting Preoperative Diagnosis: Colonic inertia [K59.9], s/p colectomy with ileostomy Postoperative Diagnosis: Same PROCEDURE AND ANESTHESIA TYPE: Procedure(s) and Anesthesia Type: * CLOSURE ILEOSTOMY - General OPERATIVE INDICATIONS: The patient presented to the hospital to undergo the above procedure. Prior to the case he had a finding of anastomotic stenosis which was balloon dilated with resolution of this stenosis. A thorough discussion of the risks and benefits of surgery was undertaken prior to informed consent. They understood the benefits and risks, and desired to proceed. OPERATIVE FINDINGS: We undertook an uneventful stoma closure and a handsewn technique. OPERATIVE PROCEDURE: Patient was brought into the operating room, where a huddle time-out procedure, preoperative antibiotics, necessary medical equipment, staff, and positioning were all completed. Patient was placed in supine position. Timeout was completed. The abdomen was prepped and draped in the usual fashion. Digital rectal exam was unremarkable and I was not able to palpate to the anastomosis. An incision was started at the medial aspect of the ileostomy using a scalpel and this was carried down into the subcutaneous tissue with a small rim of skin kept on the small bowel. This skin was grasped with hemostats and carefully the stoma was dissected off of the subcutaneous tissue until we entered the hernia sack superiorly and were able to enter the abdomen. We then proceeded to circumferentially free the ileostomy off of the fascia and when this was done we inspected the small bowel. The stoma was fully everted and no serosal tears were seen. We used saline in either side of the ileum to inflate it and checked for serosal tears and again did not see any tears. Next we trimmed the skin off the small bowel and this was sent for pathology as ileostomy. The small bowel was again inspected and deemed best for hand-sewn closure. We placed 3-0 silk stay sutures at both corners and the apex of our closure site. Using a 3-0 PDS suture, we began at either side of the small bowel and performed a running full-thickness closure of the small bowel. After this we inspected the closure and noted good enteric closure, with healthy well vascularized tissue on both sides of the anastomosis. Once this was done, the bowel was placed back into the abdomen through the fascia without issue. The fascia was inspected and found to be strong. We removed some peristomal hernia sac from above the fascial level circumferentially. Using a running 2-0 PDS suture, we closed the posterior sheath of the fascia in a running fashion. Prior to tying , a finger sweeped confirmed that no internal organs were caught with the sutures, then this was tied. We used an 0 PDS suture to close the anterior fascia in a running fashion as well. 60 cc of Exparel was injected in the fascia and the skin around the stoma site. The skin was partially closed with a purse-string 4-0 Monocryl suture. This was dressed with a simple gauze dressing and a Tegaderm All counts of sponges and instruments were correct x 2. The patient was extubated and taken to the recovery room in good condition. Collin Navarro MD, staff surgeon, was present and participated in the entire procedure with the above-listed assistance. ESTIMATED BLOOD LOSS: 10 ml DRAINS: None. SPECIMENS: Ileostomy COMPLICATIONS: None. Collin Le MD Departments of General Surgery Pager: [phone] November 26, 2022 Please Note: This office note has been created using Pact, a speech recognition software program, and may contain errors including punctuation, grammar, spelling, gender, and inappropriate words or phrases that pertain to the sytem. Normal [facility] SURGICAL PATHOLOGYon 023 CASE REPORT Normal [facility] Comment on above: Order Comment: Speci men Type: TISSUE SPECIMENOrdering Facility: [facility] Address: [address] [place] [address] Result Comment: Surg ical Pathology Report Case: [id number] Authorizing Provider: Collin Le MD Collected: 11/26/2022 08:15 AM Ordering Location: [place] SURGERY OR Received: 11/26/2022 12:13 PM Pathologist: Tre Moore MD Specimen: [id number] Performed By: #### S ####[facility] [id number] [address] CLINICAL HISTORY Normal [facility] Comment on above: Order Comment: Speci men Type: TISSUE SPECIMENOrdering Facility: [facility] Address: [address] [place] [address] Result Comment: Pre- op diagnosis: Colonic inertia [K59.9] Performed By: #### S ####[facility] [id number] [address] FINAL DIAGNOSIS [facility] Comment on above: Order Comment: Speci men Type: TISSUE SPECIMENOrdering Facility: [facility] Address: [address] [place] [address] Result Comment: A. I leostomy, closure: - No pathologic abnormalities. Performed By: #### S ####[facility]ATORYCLIA [id number] [address] FINAL PERFORMING LAB Normal [facility] Comment on above: Order Comment: Speci men Type: TISSUE SPECIMENOrdering Facility: [facility] Address: [address] [address] Result Comment: Diag nostic interpretation performed at [facility], [address] [place] [address] CLIA# [id number] Line Patroller: Tre Moore M.D. Performed By: #### S ####[facility]ATORYCLIA [id number] [address] [place] GROSS DESCRIPTION A. ILEOSTOMY Normal [facility] Comment on above: Order Comment: Speci men Type: TISSUE SPECIMENOrdering Facility: [facility] Address: [address] [place] [address] Result Comment: Rece ived in formalin labeled ileostomy is an open ring of mucosa covered soft tissue and attached potts skin approximating to 2 cm in diameter and 1 cm in height. Parking Patroller sections are submitted in A1. Gross examination performed at [facility], [address] [place] [address] CLIA#[id number] OLS November 26, 2022 3:33 PM Performed By: #### S ####[facility] LABORATORYCLIA [id number] [place] [address] [place] Basic metabolic 2000 panelon 11-21-2022 Anion gap [Moles/Vol] 9 mmol/L Normal 9-18 [facility] Comment on above: Order Comment: Speci men Type: BLOOD SPECIMEN [facility] Address: [address] [address] Performed By: #### 2 4321-2 #### [facility] CLIA [id number] [address] [place] [address] [place] Calcium [Mass/Vol] 8.9 mg/dL Normal 8.5-10.2 [facility] Comment on above: Order Comment: Speci men Type: BLOOD SPECIMEN [facility] Address: [address] [place] [address] Performed By: #### 2 4321-2 #### [facility] CLIA [id number] [address] Chloride [Moles/Vol] 106 mmol/L High 97-105 [facility] Comment on above: Order Comment: Speci men Type: BLOOD SPECIMEN [facility] Address: [address] [place] [address] Performed By: #### 2 4321-2 #### [facility] CLIA [id number] [address] [place] CO2 [Moles/Vol] 25 mmol/L Normal 22-30 [facility] Comment on above: Order Comment: Speci men Type: BLOOD SPECIMEN [facility] Address: [address] [place] [address] Performed By: #### 2 4321-2 #### [facility] CLIA [id number] [address] [place] [address] Creatinine [Mass/Vol] 0.84 mg/dL Normal 0.73-1.22 [facility] Comment on above: Order Comment: Speci men Type: BLOOD SPECIMEN [facility] Address: [address] [place] [address] Performed By: #### 2 4321-2 #### [facility] CLIA [id number] [address] [place] [address] ESTIMATED GLOMERULAR FILTRATION RATE 116 mL/min/1.73m??? Normal >=60 [facility] Comment on above: Order Comment: Speci men Type: BLOOD SPECIMEN [facility] Address: [address] [place] [address] Result Comment: Jody mated Glomerular Filtration Rate (eGFR) is calculated using the 2020 CKD-EPI creatinine equation. This equation utilizes serum creatinine, sex, and age as parameters. The creatinine assay has traceable calibration to isotope dilution-mass spectrometry. Refer to KDIGO guidelines for clinical interpretation. In patients with unstable renal function, e.g. those with acute kidney injury, the eGFR may not accurately reflect actual GFR. Performed By: #### 2 4321-2 #### [facility] CLIA [id number] 1 [place] [address] [place] Glucose [Mass/Vol] 85 mg/dL Normal 74-99 [facility] Comment on above: Order Comment: Specdavid men Type: BLOOD SPECIMEN [facility] Address: [address] [place] [address] Result Comment: The [place] Diabetes Association (ADA) provides guidance for cutoff values for fasting glucose and random glucose. The ADA defines fasting as no caloric intake for at least 8 hours. Fasting plasma glucose results between 100 to 125 mg/dL indicate increased risk for diabetes (prediabetes). Fasting plasma glucose results greater than or equal to 126 mg/dL meet the criteria for diagnosis of diabetes. In the absence of unequivocal hyperglycemia, results should be confirmed by repeat testing. In a patient with classic symptoms of hyperglycemia or hyperglycemic crisis, random plasma glucose results greater than or equal to 200 mg/dL meet the criteria for diagnosis of diabetes. Reference: Standards of Medical Care in Diabetes 2016, [place] Diabetes Association. Diabetes Care. 2016.39(Suppl 1). Performed By: #### 2 4321-2 #### [facility] CLIA [id number] 1 [place] [address] [place] Potassium [Moles/Vol] 4.3 mmol/L Normal 3.7-5.1 [facility] Comment on above: Order Comment: Jeff mata Type: BLOOD SPECIMEN [facility] Address: [address] [place] [address] Performed By: #### 2 4321-2 #### [facility] CLIA [id number] 1 [place] [address] [place] Sodium [Moles/Vol] 140 mmol/L Normal 136-144 [facility] Comment on above: Order Comment: Speci men Type: BLOOD SPECIMEN [facility] Address: [address] [place] [address] Performed By: #### 2 4321-2 #### [facility] CLIA [id number] 1 [place] [address] [place] Urea nitrogen [Mass/Vol] 11 mg/dL Normal 9-24 [facility] Comment on above: Order Comment: Speci men Type: BLOOD SPECIMEN [facility] Address: [address] [address] Performed By: #### 2 4321-2 #### [facility] CLIA [id number] [address] STATES OF [facility] Anion gap [Moles/Vol] 9 mmol/L 9 - 18 mmol/L [facility] Calcium [Mass/Vol] 8.9 mg/dL 8.5 - 10. 2 mg/dL [facility] Chloride [Moles/Vol] 106 mmol/L High 97 - 10 5 mmol/L [facility] CO2 [Moles/Vol] 25 mmol/L 22 - 30 mmol/L [facility] Creatinine [Mass/Vol] 0.84 mg/dL 0.73 - 1.22 mg/dL [facility] Estimated Glomerular Filtration Rate 116 mL/min/1.73m >=60 mL/min/1.73 m [facility] Glucose [Mass/Vol] 85 mg/dL 74 - 99 mg/dL [facility] Potassium [Moles/Vol] 4.3 mmol/L 3.7 - 5.1 mmol/L [facility] Sodium [Moles/Vol] 140 mmol/L 136 - 144 mmol/L [facility] Urea nitrogen [Mass/Vol] 11 mg/dL 9 - 24 mg/dL [facility] CBC panel Auto (Bld)on 11-21 Erythrocyte distribution width (RBC) [Ratio] 13.2 % Normal 11.5-15.0 [facility] Comment on above: Order Comment: Speci men Type: BLOOD SPECIMEN [facility] Address: [address] [address] Performed By: #### 5 8410-2 #### [facility] CLIA [id number] [address] Hematocrit (Bld) [Volume fraction] 42.9 % Normal 39.0-51.0 [facility] Comment on above: Order Comment: Speci men Type: BLOOD SPECIMEN [facility] Address: [address] [address] Performed By: #### 5 8410-2 #### [facility] CLIA [id number] [address] OF [facility] Hemoglobin (Bld) [Mass/Vol] 14.4 g/dL Normal 13.0-17.0 [facility] Comment on above: Order Comment: Speci men Type: BLOOD SPECIMEN [facility] Address: [address] [place] [address] Performed By: #### 5 8410-2 #### [facility] CLIA [id number] [address] MCH (RBC) [Entitic mass] 29.9 pg Normal 26.0-34.0 [facility] Comment on above: Order Comment: Speci men Type: BLOOD SPECIMEN [facility] Address: [address] [place] [address] Performed By: #### 5 8410-2 #### [facility] CLIA [id number] [address] MCHC (RBC) [Mass/Vol] 33.6 g/dL Normal 30.5-36.0 [facility] Comment on above: Order Comment: Speci men Type: BLOOD SPECIMEN [facility] Address: [address] [place] [address] Performed By: #### 5 8410-2 #### [facility] CLIA [id number] [address] MCV (RBC) [Entitic vol] 89.2 fL Normal 80.0-100.0 [facility] Comment on above: Order Comment: Speci men Type: BLOOD SPECIMEN [facility] Address: [address] [place] [address] Performed By: #### 5 8410-2 #### [facility] CLIA [id number] [address] Nucleated RBC (Bld) [#/Vol] 10*3/uL Normal <0.01 [facility] Comment on above: Order Comment: Speci men Type: BLOOD SPECIMEN [facility] Address: [address] [address] Performed By: #### 5 8410-2 #### [facility] CLIA [id number] [address] STATES [facility] Platelet mean volume (Bld) [Entitic vol] 9.4 fL Normal 9.0-12.7 [facility] Comment on above: Order Comment: Speci men Type: BLOOD SPECIMEN [facility] Address: [address] [address] Performed By: #### 5 8410-2 #### [facility] CLIA [id number] [address] [place] Platelets (Bld) [#/Vol] 251 10*3/uL Normal 150-400 [facility] Comment on above: Order Comment: Speci men Type: BLOOD SPECIMEN [facility] Address: [address] [address] Performed By: #### 5 8410-2 #### [facility] CLIA [id number] [address] [place] RBC (Bld) [#/Vol] 4.81 10*6/uL Normal 4.20-6.00 [facility] Comment on above: Order Comment: Speci men Type: BLOOD SPECIMEN [facility] Address: [address] [place] [address] Performed By: #### 5 8410-2 #### [facility] CLIA [id number] [address] [place] WBC (Bld) [#/Vol] 5.63 10*3/uL Normal 3.70-11.00 [facility] Comment on above: Order Comment: Speci men Type: BLOOD SPECIMEN [facility] Address: [address] [place] [address] Performed By: #### 5 8410-2 #### [facility] CLIA [id number] [address] [place] Erythrocyte distribution width (RBC) [Ratio] 13.2 % 11.5 - 15.0 % [facility] Hematocrit (Bld) [Volume fraction] 42.9 % 39.0 - 51.0 % [facility] Hemoglobin (Bld) [Mass/Vol] 14.4 g/dL 13.0 - 17.0 g/dL [facility] MCH (RBC) [Entitic mass] 29.9 pg 26.0 - 34.0 pg [facility] MCHC (RBC) [Mass/Vol] 33.6 g/dL 30.5 - 36.0 g/dL [facility] MCV (RBC) [Entitic vol] 89.2 fL 80.0 - 100.0 fL [facility] Nucleated RBC (Bld) [#/Vol] <0.01 k/uL [facility] Platelet mean volume (Bld) [Entitic vol] 9.4 fL 9.0 - 12.7 fL [facility] Platelets (Bld) [#/Vol] 251 10*3/uL 150 - 400 k/uL [facility] RBC (Bld) [#/Vol] 4.81 10*6/uL 4.20 - 6.0 0 m/uL [facility] WBC (Bld) [#/Vol] 5.63 10*3/uL 3.70 - 11.00 k/uL [facility] HISTORY PHYSICALon HISTORY PHYSICAL HNO ID: [id number] Author: Kinza Sutton APRN.FINANCE EXECUTIVE Service: ? Author Type: Nurse Practitioner Type: HANDP Filed: 11/21/2022 10:28 AM Note Text: HISTORY AND PHYSICAL EXAMINATION SERVICE DATE: 11/21/2022 SERVICE TIME: 939 PRIMARY CARE PHYSICIAN: Cassie Richardson MD REASON FOR VISIT: Eunice Vargas is a 36 year old male who is scheduled for Procedure(s): CLOSURE ILEOSTOMY (Pending) at the request of Dr. Collin Le for routine HANDP. My final recommendation will be communicated back [...] COVID-19 booster vaccine, age 12+ yr, bivalent ([employer]) 07/31/2021 Imm Admin: COVID-19 original vaccine, full [...] hours as needed for nausea/vomiting. Miscellaneous Medical (more content not included)... Normal [facility] ANES POSTPROC EVALon 023 ANES POSTPROC EVAL HNO ID: [id number] Author: Gladis Turpin MD Service: Anesthesiology Author Type: Anesthesiologist Type: Anesthesia Postprocedure Evaluation Filed: 10/29/2022 10:58 AM Note Text: POST ANESTHESIA EVALUATION NOTE : 1985 Procedure Summary Date: 10/29/22 Room / Location: [facility] Anesthesia Start: 0854 Anesthesia Stop: 1020 Procedure: SIGMOIDOSCOPY Diagnosis: Rectal stricture Scheduled Providers: Daren Dimas MD Responsible Provider: Gladis Turpin MD Anesthesia Type: MAC ASA Status: 2 Anesthesia Type: MAC Last Vitals Vitals Value Taken Time BP 120/87 10/29/22 1030 Temp 36.7 ?C (98.1 ?F) 10/29/22 1019 Pulse 85 10/29/22 1030 Resp 16 10/29/22 1030 SpO2 98 % 10/29/22 1030 Post Anesthesia Patient Status Patient Evaluation: PACU. PACU/ICU Patient Condition: stable. Anticipated Disposition: phase 2 then home. Neurological Status: aware and responsive. Pulmonary Status: breathing comfortably on room air Airway Control: returned to baseline unsupported. Cardiovascular Status: stable. Pain Management: clinically adequate Postoperative Hydration: acceptable. Intraoperative Events: no significant anesthesia events Post Operative Nausea/Vomiting Status: no significant post operative nausea or vomiting Recommendation: continue current plan of care. Anesthesia Observations No Documentation SIGNATURE: Gladis Turpin MD PATIENT NAME: Eunice Vargas DATE: October 29, 2022 TIME: 10:57 AM CSN: [id number] [facility] ANES PRE-OPon 10-29-2022 ANES PRE-OP HNO ID: [id number] Author: Gladis Turpin MD Service: Anesthesiology Author Type: Anesthesiologist Type: Anesthesia Preprocedure Evaluation Filed: 10/29/2022 8:01 AM Note Text: ANESTHESIOLOGY DAY OF SURGERY NOTE : 1985 Procedure Information Date/Time: 10/29/22829 Scheduled providers: Daren Dimas MD Procedure: SIGMOIDOSCOPY Location: [facility] Estimated body mass index is 25.82 kg/m? as calculated from the following: Height as of this encounter: 167.6 cm (5' 6). Weight as of this encounter: 72.6 kg (160 lb). Most recent hematocrit and potassium results: Hematocrit 42.3 04/03/2022 Potassium 4.2 04/03/2022 Potassium (POCT) 4.2 09/21/2021 Relevant Problems No relevant active problems I - PHYSICAL EVALUATION AIRWAY Patient intubated: No. Mallampati: II. TM distance: >3 FB. Neck ROM: full ROM without neurological symptoms. Mouth opening: adequate. Short neck: no. Thick neck: no DENTAL Dental findings: teeth intact. II - ANESTHESIA PLAN ASA Score: 2 Anesthetic Plan: MAC The patient is not a current smoker. NPO Status: adequate Beta Juan Monitoring Plan Monitoring plan: standard ASA. Post Procedure Analgesic Plan Postoperative analgesic plan: parenteral or oral opioids. Informed Consent Anesthetic risks, benefits, alternatives, personnel and consent discussed: yes. Patient / Responsible Democrat agrees to proceed: yes Patient / Surrogate agrees to blood products: blood products not planned Significant changes in the patient condition since the History and Physical, not otherwise documented in primary service progress note: no. Potential Anesthesia issues that may suggest increased risk of complications or contraindication to planned procedure: none. Vitals Value Taken Time BP 123/72 10/29/22726 Pulse 95 10/29/22726 Resp 14 10/29/22726 Temp 37.1 ?C (98.8 ?F) 10/29/22726 SpO2 100 % 10/29/22726 Outpatient Medications as of 10/29/2022 Medication Sig - ondansetron orally disintegrating (ZOFRAN ODT) 4 mg disintegrating tablet Take 1 tablet by mouth every 8 hours as needed for nausea/vomiting. - loperamide (IMODIUM) 2 mg cap(s) Take 1 capsule by mouth three times daily. - Miscellaneous Medical Supply Ileostomy supplies: - 1 Box Coloplast One piece Assura drainable pouch OR - 2 boxes Coloplast [place] red flat wafer # 22168 - 1 box Coloplast [place] red drainable pouches # 08483 - 1 box Ryan small barrier rings # 7805 - 1 tube stomahesive paste # 2650 - 1 box Coloplast Elastic barrier strips # 642205 - 1 bottle stomahesive powder # 42546 - 1 box adhesive remover wipes - 1 box skin barrier prep wipes # - MULTIVITAMIN ORAL Take 1 tablet by mouth once daily. Facility-Administered Medications as of 10/29/2022 Medication Dose Route Frequency - lactated ringers iv infusion 5-30 mL/hr INTRAVENOUS CONTINUOUS I have interviewed and examined the patient. I have reviewed the medical record and/or the pre-anesthesia evaluation, pertinent labs, and test results. This contains updated information obtained within 48 hours of Surgery/Procedure. SIGNATURE: Gladis Turpin MD PATIENT NAME: Eunice Vargas DATE: October 29, 2022 TIME: 8:01 AM CSN: [id number] Normal [facility] HISTORY PHYSICALon 3 HISTORY PHYSICAL HNO ID: [id number] Author: KIRSTEN Ahumada Service: Anesthesiology Author Type: Physician Sleeve Sewer Type: HANDP Filed: 10/29/2022 7:30 AM Note Text: HISTORY AND PHYSICAL EXAMINATION SERVICE DATE: 10/29/2022 [...] boxes Coloplast [place] red flat wafer # 32230 - 1 box Coloplast [place] red drainable pouches # 37879 - 1 box [place]ier small barrier rings # 7805 - 1 tube stomahesive paste # 2650 - 1 box Coloplast Elastic barrier strips # 084843 - 1 bottle stomahesive powder # 24274 - 1 box adhesive remover wipes - [...] open sores. HEENT: Normocephalic. Cardiovascular: Normal S1 AND S2. No murmur. Lungs: CTA Bilaterally. No respiratory distress. Abdomen: Soft. Pos BS x4quad Extremities: No edema. Neurological: Alert and oriented to person, place, and time. Pulses: radial pulses +2 Diagnostic tests reviewed for today's visit: Lab Value Units Date High Low HB No results within date range. HCT No results within date range. WBC No results within d (more content not included)... Normal [facility] OPERATIVE NOon 10-29-2022 OPERATIVE NO HNO ID: [id number] Author: Daren Dimas MD Service: Gastroenterology Author Type: Physician Type: Operative Report Filed: 10/29/2022 10:30 AM Note Text: OPERATIVE/PROCEDURE REPORT LOG ID: [id number] Surgery/Procedure Date: Incision/Procedure Start Time: 9:46 AM Incision Close/Procedure End Time: 10:13 AM Surgeon(s)/Proceduralist(s) and Sleeve Sewer(s): Surgeon(s) and Role: * Daren Dimas MD [...] with assistance. Daren Dimas MD SIGNATURE: Daren Diams MD PATIENT NAME: Eunice Vargas DATE: October 29, 2022 TIME: 10:25 AM PAGER/CONTACT #: [phone] [facility] ANES POSTPROC EVALon 023 ANES POSTPROC EVAL HNO ID: [id number] Author: Regan Beauchamp MD Service: Anesthesiology Author Type: Physician Type: Anesthesia Postprocedure Evaluation Filed: 10/22/2022 10:51 AM Note Text: POST ANESTHESIA EVALUATION NOTE : 1985 Procedure Summary Date: 10/22/22 Room / Location: [facility] Anesthesia Start: 1005 Anesthesia Stop: 1032 Procedure: SIGMOIDOSCOPY Diagnosis: Rectal stenosis Scheduled Providers: Daren Dimas MD Responsible Provider: Regan Beauchamp MD Anesthesia Type: MAC ASA Status: 3 Anesthesia Type: MAC Last Vitals Vitals Value Taken Time BP 115/86 10/22/22 1043 Temp 36 ?C (96.8 ?F) 10/22/22 1031 Pulse 71 10/22/22 1043 Resp 14 10/22/22 1043 SpO2 100 % 10/22/22 1043 Post Anesthesia Patient Status Patient Evaluation: bedside. Pulmonary Status: breathing comfortably on supplemental oxygen Cardiovascular Status: stable. Intraoperative Events: no significant anesthesia events Recommendation: continue current plan of care. Anesthesia Observations No Documentation SIGNATURE: Regan Beauchamp MD PATIENT NAME: Eunice Vargas DATE: October 22, 2022 TIME: 10:51 AM CSN: [id number] [facility] ANES PRE-OPon 10-22-2022 ANES PRE-OP HNO ID: [id number] Author: Regan Beauchamp MD Service: Anesthesiology Author Type: Physician Type: Anesthesia Preprocedure Evaluation Filed: 10/22/2022 8:20 AM Note Text: ANESTHESIOLOGY DAY OF SURGERY NOTE : 1985 Procedure Information Date/Time: 10/22/2230 Scheduled providers: Daren Dimas MD Procedure: SIGMOIDOSCOPY Location: [facility] Estimated body mass index is 25.69 kg/m? as calculated from the following: Height as of 09/26/22: 170.2 cm (5' 7). Weight as of 09/26/22: 74.4 kg (164 lb). Most recent hematocrit and potassium results: Hematocrit 42.3 04/03/2022 Potassium 4.2 04/03/2022 Potassium (POCT) 4.2 09/21/2021 Relevant Problems No relevant active problems I - PHYSICAL EVALUATION AIRWAY Patient intubated: No. Tracheostomy tube not present Mallampati: III. TM distance: >3 FB. Neck ROM: full ROM without neurological symptoms. Mouth opening: adequate. Short neck: no. Thick neck: no DENTAL Normal dental observations. Dental findings: teeth intact. II - ANESTHESIA PLAN ASA Score: 3 Anesthetic Plan: MAC NPO Status: adequate Beta Juan Administration of chronic beta juan medication not planned. Reasons for not administering beta juan perioperatively: other Monitoring Plan Monitoring plan: standard ASA. Post Procedure Analgesic Plan Postoperative analgesic plan: parenteral or oral opioids and per surgical service. Informed Consent Anesthetic risks, benefits, alternatives, personnel and consent discussed: yes. Patient / Responsible Democrat agrees to proceed: yes Patient / Surrogate agrees to blood products: blood products not planned No vitals data found for the desired time range. Outpatient Medications as of 10/22/2022 Medication Sig - ondansetron orally disintegrating (ZOFRAN ODT) 4 mg disintegrating tablet Take 1 tablet by mouth every 8 hours as needed for nausea/vomiting. - loperamide (IMODIUM) 2 mg cap(s) Take 1 capsule by mouth three times daily. - Miscellaneous Medical Supply Ileostomy supplies: - 1 Box Coloplast One piece Assura drainable pouch OR - 2 boxes Coloplast [place] red flat wafer # 86379 - 1 box Coloplast [place] red drainable pouches # 58822 - 1 box Ryan small barrier rings # 7805 - 1 tube stomahesive paste # 2650 - 1 box Coloplast Elastic barrier strips # 028635 - 1 bottle stomahesive powder # 28841 - 1 box adhesive remover wipes - 1 box skin barrier prep wipes # - MULTIVITAMIN ORAL Take 1 tablet by mouth once daily. No current facility-administered medications on file as of 10/22/2022. I have interviewed and examined the patient. I have reviewed the medical record and/or the pre-anesthesia evaluation, pertinent labs, and test results. This contains updated information obtained within 48 hours of Surgery/Procedure. SIGNATURE: Regan Beauchamp MD PATIENT NAME: Eunice Vargas DATE: October 22, 2022 TIME: 8:18 AM CSN: [id number] [facility] OPERATIVE NOon 10-22-2022 OPERATIVE NO HNO ID: [id number] Author: Daren Dimas MD Service: Gastroenterology Author Type: Physician Type: Operative Report Filed: 10/22/2022 10:31 AM Note Text: OPERATIVE/PROCEDURE REPORT LOG ID: [id number] Surgery/Procedure Date: Incision/Procedure Start Time: 10:12 AM Incision Close/Procedure End Time: 10:21 AM Surgeon(s)/Proceduralist(s) and Sleeve Sewer(s): Surgeon(s) and Role: * Daren Dimas MD [...] 22, 2022 TIME: 10:23 AM PAGER/CONTACT #: [phone] [facility] Aravind 10-15-2022 [facility] Telephone (AGGENS7) JAMSHIDEUNICE Coles ([id number]) 1985 M Date Time Provider Department 10/15/22 COLLIN LE AGGENS7 During your visit today, we recorded the following information about you: Esmer Flanagan Ma 10/15/2022 9:52 AM Signed 10/15/22 Patient called states his frustration due [...] Office will inform Dr. Le. Please advise. Esmer Flanagan Ma 10/22/2022 3:40 PM Signed Collin Le MD You 7 days ago Thanks I gave him a call Allergies As of Date: 10/15/2022 Noted Allergy Reaction ADHESIVE 09/26/2022 14 - Other: See Comments Comments: Large blisters Date Reviewed: 09/26/2022 Reviewed by: Jil Penaloza, RN - Fully Assessed Reason for Visit: Patient Update [1234] Prescriptions as of 10/22/2022 - ondansetron orally disintegrating (ZOFRAN ODT) 4 mg disintegrating tablet Take 1 tablet by mouth every 8 hours as needed for nausea/vomiting. - loperamide (IMODIUM) 2 mg cap(s) Take 1 capsule by mouth three times daily. - Miscellaneous Medical Supply Ileostomy supplies: - 1 Box Coloplast One piece Assura drainable pouch OR - 2 boxes Coloplast [place] red flat wafer # 09648 - 1 box Coloplast Tacho red drainable pouches # 33962 - 1 box Ryan small barrier rings # 7805 - 1 tube stomahesive paste # 2650 - 1 box Coloplast Elastic barrier strips # 018758 - 1 bottle stomahesive powder # 22794 - 1 box adhesive remover wipes - 1 box skin barrier prep wipes # - MULTIVITAMIN ORAL Take 1 tablet by mouth once daily. 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] 08/05/2007 Plantar fascial fibromatosis [M72.2] 07/09/2010 Obesity, Class I, BMI 30-34.9 [E66.9] 07/19/2019 Spondylolisthesis of lumbar region [M43.16] 07/19/2019 Acute midline low back pain with left-sided sci*08/27/2019 Ileus following gastrointestinal surgery (HCC) *05/29/2021 Generalized abdominal pain [R10.84] 05/29/2021 Bowel obstruction (HCC) [K56.609] 09/21/2021 09/23/2021 Malnutrition of moderate degree (HCC) [E44.0] 09/22/2021 Colonic inertia [K59.9] 12/05/2021 Enteritis [K52.9] 04/02/2022 Lactic acidosis [E87.20] 04/02/2022 Sepsis (HCC) [A41.9] 04/02/2022 Encounter Status:Closed by ESMER FLANAGAN MA on 10/22/22 Normal [facility] CT Abdomen / Pelvis w IV onl yon 10-06-2022 CT Abdomen / Pelvis w IV only CT ABDOMEN AND PELVIS WITH IV CONTRAST. INDICATION: Abdominal pain, nausea and vomiting, history of colon resection with ileostomy COMPARISON: None. CONTRAST: 75 cc of Isovue-370. CT scans of the abdomen and pelvis were performed following intravenous contrast administration, with images from the lung bases through the pubic symphysis. The images are reviewed in the axial, sagittal and coronal planes. Dose reduction was employed with automated exposure control. The lung bases are clear. The cardiac silhouette is satisfactory. The liver is normal in size, shape and attenuation. There are no focal liver masses. The gallbladder is unremarkable. The biliary tree is decompressed. The pancreas is unremarkable. The spleen is unremarkable. Evaluation of the upper GI tract demonstrates the stomach to be unremarkable. The duodenum is satisfactory in appearance. There is no evidence of mucosal thickening or stranding of the mesenteric fat. The more proximal loops of bowel are mildly distended with a transition point present within the right mid abdomen, raising the question of a low-grade partial small bowel obstruction. There is no free fluid nor free air. The colon is not readily visualized. There is an ostomy on the right. The adrenal glands and kidneys are unremarkable. Scans through the pelvis demonstrates the rectal stump to be generally unremarkable without bowel wall thickening. No stranding of the mesorectal fat. The bladder is incompletely distended but unremarkable. The remainder of the pelvic contents are unremarkable. There is no mass or adenopathy. There is no free fluid. The aorta, inferior vena cava and iliac vessels are satisfactory. The retroperitoneum is unremarkable. There is no mass or adenopathy. The osseous structures are intact. Postsurgical changes are seen involving the lower lumbar spine. IMPRESSION: CT examination of the abdomen and pelvis demonstrate several fluid-filled loops of small bowel within the right upper quadrant with a point of transition noted within the right mid abdomen (2:79), raising the question of a partial small bowel obstruction. The more distal segments of bowel extending to the ostomy are generally unremarkable. Clinical correlation and short-term follow-up is recommended. Report Dictated on Authenticated by: Wilbert Juárez On: 10/06/2022 09:01 Read by: WILBERT JUÁREZ II, DO, MD Date: 10/06/2022 09:01 [facility] 10-02-2022 ANDREW Telephone (AGGENS7) EUNICE VARGAS ([id number]) 1985 Date Time Provider Department 10/02/22 COLLIN LE7 During your visit today, we recorded the following information about you: Matthew Duckworth 10/02/2022 10:53 AM Signed Patient called the office and wanted to know if there was an update about getting his junction site dilated. I told the patient I would reach out to you and give him a call back with an update. Thank you. Matthew Duckworth October 02, 2022 10:53 AM Allergies As of Date: 10/02/2022 Noted Allergy Reaction ADHESIVE 09/26/2022 14 - Other: See Comments Comments: Large blisters Date Reviewed: 09/26/2022 Reviewed by: Jil Penaloza RN - Fully Assessed Reason for Visit: Patient Update [1234] Prescriptions as of 10/03/2022 - ondansetron orally disintegrating (ZOFRAN ODT) 4 mg disintegrating tablet Take 1 tablet by mouth every 8 hours as needed for nausea/vomiting. - loperamide (IMODIUM) 2 mg cap(s) Take 1 capsule by mouth three times daily. - Miscellaneous Medical Supply Ileostomy supplies: - 1 Box Coloplast One piece Assura drainable pouch OR - 2 boxes Coloplast [place] red flat wafer # 58210 - 1 box Coloplast [place] red drainable pouches # 90623 - 1 box Napier small barrier rings # 7805 - 1 tube stomahesive paste # 2650 - 1 box Coloplast Elastic barrier strips # 468253 - 1 bottle stomahesive powder # 81875 - 1 box adhesive remover wipes - 1 box skin barrier prep wipes # - MULTIVITAMIN ORAL Take 1 tablet by mouth once daily. 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.8] 08/05/2007 Plantar fascial fibromatosis [M72.2] 07/09/2010 Obesity, Class I, BMI 30-34.9 [E66.9] 07/19/2019 Spondylolisthesis of lumbar region [M43.16] 07/19/2019 Acute midline low back pain with left-sided sci*08/27/2019 Ileus following gastrointestinal surgery (HCC) *05/29/2021 Generalized abdominal pain [R10.84] 05/29/2021 Bowel obstruction (HCC) [K56.609] 09/21/2021 09/23/2021 Malnutrition of moderate degree (HCC) [E44.0] 09/22/2021 Colonic inertia [K59.9] 12/05/2021 Enteritis [K52.9] 04/02/2022 Lactic acidosis [E87.20] 04/02/2022 Sepsis (HCC) [A41.9] 04/02/2022 Encounter Status:Closed by MATTHEW DUCKWORTH on 10/03/22 [facility] ANES POSTPROC EVALon 023 ANES POSTPROC EVAL HNO ID: [id number] Author: Madi Medellin MD Service: Anesthesiology Author Type: Physician Type: Anesthesia Postprocedure Evaluation Filed: 09/26/2022 11:53 AM Note Text: POST ANESTHESIA EVALUATION NOTE : 1985 Procedure Summary Date: 09/26/22 Room / Location: [facility] Anesthesia Start: 917 Anesthesia Stop: 932 Procedure: SIGMOIDOSCOPY Diagnosis: Colonic inertia Scheduled Providers: Collin Le MD Responsible Provider: Madi Medellin MD Anesthesia Type: MAC ASA Status: 2 Anesthesia Type: MAC Last Vitals Vitals Value Taken Time BP 122/89 09/26/22 0953 Temp 36.5 ?C (97.7 ?F) 09/26/22 0933 Pulse 74 09/26/22 0953 Resp 16 09/26/22 0953 SpO2 100 % 09/26/22 0953 Post Anesthesia Patient Status Patient Evaluation: PACU. PACU/ICU Patient Condition: stable. Anticipated Disposition: phase 2 then home. Neurological Status: aware and responsive. Pulmonary Status: breathing comfortably on room air Airway Control: returned to baseline unsupported. Cardiovascular Status: stable. Pain Management: clinically adequate Postoperative Hydration: acceptable. Intraoperative Events: no significant anesthesia events Post Operative Nausea/Vomiting Status: no significant post operative nausea or vomiting Recommendation: continue current plan of care. Anesthesia Observations No Documentation SIGNATURE: Madi Medellin MD PATIENT NAME: Eunice Vargas DATE: September 26, 2022 TIME: 11:53 AM CSN: [id number] [facility] ANES PRE-OPon 09-26-2022 ANES PRE-OP HNO ID: [id number] Author: Gladis Turpin MD Service: Anesthesiology Author Type: Anesthesiologist Type: Anesthesia Preprocedure Evaluation Filed: 09/26/2022 8:45 AM Note Text: ANESTHESIOLOGY DAY OF SURGERY NOTE : 1985 Procedure Information Date/Time: 09/26/22 0800 Scheduled providers: Collin Le MD Procedure: SIGMOIDOSCOPY Location: [facility] Estimated body mass index is 25.69 kg/m? as calculated from the following: Height as of this encounter: 170.2 cm (5' 7). Weight as of this encounter: 74.4 kg (164 lb). Most recent hematocrit and potassium results: Hematocrit 42.3 04/03/2022 Potassium 4.2 04/03/2022 Potassium (POCT) 4.2 09/21/2021 Relevant Problems No relevant active problems I - PHYSICAL EVALUATION AIRWAY Patient intubated: No. Mallampati: I. TM distance: >3 FB. Neck ROM: full ROM without neurological symptoms. Mouth opening: adequate. Short neck: no. Thick neck: no DENTAL Dental findings: teeth intact. II - ANESTHESIA PLAN ASA Score: 2 Anesthetic Plan: MAC The patient is not a current smoker. NPO Status: adequate Beta Juan Monitoring Plan Monitoring plan: standard ASA. Post Procedure Analgesic Plan Informed Consent Anesthetic risks, benefits, alternatives, personnel and consent discussed: yes. Patient / Responsible Democrat agrees to proceed: yes Patient / Surrogate agrees to blood products: blood products not planned Significant changes in the patient condition since the History and Physical, not otherwise documented in primary service progress note: no. Potential Anesthesia issues that may suggest increased risk of complications or contraindication to planned procedure: none. Vitals Value Taken Time BP 119/83 09/26/22 0835 Pulse 81 09/26/22 0835 Resp 16 09/26/22 0835 Temp 36.8 ?C (98.2 ?F) 09/26/22 0835 SpO2 100 % 09/26/22 0835 Outpatient Medications as of 09/26/2022 Medication Sig - loperamide (IMODIUM) 2 mg cap(s) Take 1 capsule by mouth three times daily. - ondansetron orally disintegrating (ZOFRAN ODT) 4 mg disintegrating tablet Take 1 tablet by mouth every 8 hours as needed for nausea/vomiting. - Miscellaneous Medical Supply Ileostomy supplies: - 1 Box Coloplast One piece Assura drainable pouch OR - 2 boxes Coloplast [place] red flat wafer # 59086 - 1 box Coloplast [place] red drainable pouches # 47827 - 1 box Ryan small barrier rings # 7805 - 1 tube stomahesive paste # 2650 - 1 box Coloplast Elastic barrier strips # 080814 - 1 bottle stomahesive powder # 26407 - 1 box adhesive remover wipes - 1 box skin barrier prep wipes # - MULTIVITAMIN ORAL Take 1 tablet by mouth once daily. Facility-Administered Medications as of 09/26/2022 Medication Dose Route Frequency - lidocaine 10 mg/mL (1 %) 1-2 mg injection (XYLOCAINE) 0.1-0.2 mL INTRADERMAL PRN - lactated ringers iv infusion 30 mL/hr INTRAVENOUS CONTINUOUS - lactated ringers iv infusion 125 mL/hr INTRAVENOUS CONTINUOUS - ondansetron (PF) 4 mg injection (ZOFRAN) 4 mg INTRAVENOUS PRN I have interviewed and examined the patient. I have reviewed the medical record and/or the pre-anesthesia evaluation, pertinent labs, and test results. This contains updated information obtained within 48 hours of Surgery/Procedure. SIGNATURE: Gladis Turpin MD PATIENT NAME: Eunice Vargas DATE: September 26, 2022 TIME: 8:45 AM CSN: [id number] Normal [facility] HISTORY PHYSICALon HISTORY PHYSICAL HNO ID: [id number] Author: Alix Womack APRN.CNP Service: Anesthesiology Author Type: Nurse Practitioner Type: HANDP Filed: 09/26/2022 8:57 AM Note Text: HISTORY AND PHYSICAL EXAMINATION Eunice Vargas 1985 [...] prn and states he needs this only occasionally. He denies nausea, vomiting, abdominal pain, weight [...] boxes Coloplast Tacho red flat wafer # 67822 - 1 box Coloplast [place] red drainable pouches # 90452 - 1 box Ryan small barrier rings # 7805 - 1 tube stomahesive paste # 2650 - 1 box Coloplast Elastic barrier strips # 094837 - 1 bottle stomahesive powder # 97324 - 1 box adhesive remover wipes - [...] no history of chest pain, palpitations, CHF, IA, cardiac surgery or stents GI: see HPI [...] non-tender, BS normal, No masses or organomegaly (more content not included)... Normal [facility] OPERATIVE NOon 09-26-2022 OPERATIVE NO HNO ID: [id number] Author: Collin Le MD Service: Colorectal Author Type: Physician Type: Operative Report Filed: 09/26/2022 9:34 AM Note Text: OPERATIVE/PROCEDURE REPORT LOG ID: [id number] Surgery/Procedure Date: Incision/Procedure Start Time: 9:25 AM Incision Close/Procedure End Time: 9:28 AM Surgeon(s)/Proceduralist(s) and Sleeve Sewer(s): Surgeon(s) and Role: * Aric Patino DO [...] 26, 2022 TIME: 9:32 AM PAGER/CONTACT #: [phone] [facility] 09-16-2022 [facility] HNO ID: [id number] Author: RT Johnna(Lisa) Service: Radiology Author Type: Technologist Type: Allied Health Filed: 09/16/2022 10:32 AM Note Text: Radiology Service Progress Note [...] RT Johnna(R) September 16, 2022 10:31 AM Normal [facility] XR COLON SINGLE CONTRASTon 0 09-16-2022 XR COLON SINGLE CONTRAST * * *Final Report* * * DATE OF EXAM: Sep 16 2022 10:56AM [id number] - XR COLON SINGLE CONTRAST / PROCEDURE REASON: Colonic inertia * * * * Physician Interpretation * * * * EXAM TITLE: XR COLON SINGLE CONTRAST DATE: 09/16/2022 12:41 PM INDICATION: Status post subtotal colectomy. Colonic N. Rg COMPARISON: CAT scan from 04/02/2022 FINDINGS: Fluoroscopy was performed by the radiology physician's construction administrative assistant. 1 minute 42 seconds of fluoroscopy time was used. 25 images were obtained. There is immediate opacification of the rectum and there is an ileocolic anastomosis at the level of the rectum. Retrograde opacification of the distal ileum extends into an ostomy bag at the right side of the abdomen. No anastomotic leak is identified. There is no significant stricture. No masses are identified. IMPRESSION: Postoperative changes without apparent complications. Healthcare Economics Consultant: [facility] Transcribe Date/Time: Sep 16 2022 12:41P Dictated by : TITUS SALDAÑA MD This examination was interpreted and the report reviewed and electronically signed by: TITUS SALDAÑA MD on Sep 16 2022 12:43PM EST [id number] Normal [facility] Lipid 1996 panelon 3 Cholesterol [Mass/Vol] 115 mg/dL <200 mg/dL [facility] Cholesterol in HDL [Mass/Vol] 68 mg/dL >39 mg/dL [facility] Cholesterol in LDL [Mass/Vol] 29 mg/dL <100 mg/dL [facility] Cholesterol in LDL/Cholesterol in HDL [Mass ratio] 0.43 {ratio} <2.54 [facility] Cholesterol in VLDL [Mass/Vol] 18 mg/dL <30 mg/dL [facility] Cholesterol non HDL [Mass/Vol] 47 mg/dL <130 mg/dL [facility] Cholesterol.total/Chol esterol in HDL [Mass ratio] 1.69 {ratio} <5.10 [facility] Fasting Time 12 hrs [facility] Triglyceride [Mass/Vol] 88 mg/dL <150 mg/dL [facility] CNOVon 08-19-2022 CNOV Office Visit (AGGENS 7) EUNICE VARGAS ([id number]) 1985 M Date Time Provider Department 08/19/22 11:00 AM COLLIN LE7 During your visit today, we recorded the following information about you: Pulse Blood pressure Weight Height 68/minute 134/80 74.8 kg 1.676 m Collin Le MD 08/19/2022 12:00 PM Signed Collin Le M.D. Colon AND Rectal Surgery [address] [facility], [address] [place] [id number] SUBJECTIVE Eunice Vargas is a 36 year [...] drainable pouch OR - 2 boxes Coloplast [place] red flat wafer # 82868 - 1 box Coloplast [place] red drainable pouches # 03576 - 1 box Napier small barrier rings # 7805 - 1 tube stomahesive paste # 2650 - 1 box Coloplast Elastic barrier strips # 700387 - 1 bottle stomahesive powder # 02088 - 1 box adhesive remover wipes - [...] Adult) Pulse 68 Ht 167.6 cm (5' 6) Wt 74.8 kg (165 lb) BMI 26.63 [...] appearance. No signs of recurrent ventral hernia M (more content not included)... Normal [facility] Basic metabolic 2000 panelon 11-28-2021 Anion gap [Moles/Vol] 12 mmol/L 9 - 18 mmol/L [facility] Calcium [Mass/Vol] 9.0 mg/dL 8.5 - 10. 2 mg/dL [facility] Chloride [Moles/Vol] 102 mmol/L 97 - 10 5 mmol/L [facility] CO2 [Moles/Vol] 23 mmol/L 22 - 30 mmol/L [facility] Creatinine [Mass/Vol] 0.75 mg/dL 0.73 - 1.22 mg/dL [facility] Estimated Glomerular Filtration Rate 121 mL/min/1.73m >=60 mL/min/1.73 m [facility] Glucose [Mass/Vol] 87 mg/dL 74 - 99 mg/dL [facility] Potassium [Moles/Vol] 3.4 mmol/L Low 3.7 - 5.1 mmol/L [facility] Sodium [Moles/Vol] 137 mmol/L 136 - 144 mmol/L [facility] Urea nitrogen [Mass/Vol] 9 mg/dL 9 - 24 mg/dL [facility] CBC panel Auto (Bld)on 11-28 Erythrocyte distribution width (RBC) [Ratio] 15.5 % High 11.5 - 15.0 % [facility] Hematocrit (Bld) [Volume fraction] 39.2 % 39.0 - 51.0 % [facility] Hemoglobin (Bld) [Mass/Vol] 12.5 g/dL Low 13.0 - 17.0 g/dL [facility] MCH (RBC) [Entitic mass] 26.0 pg 26.0 - 34.0 pg [facility] MCHC (RBC) [Mass/Vol] 31.9 g/dL 30.5 - 36.0 g/dL [facility] MCV (RBC) [Entitic vol] 81.7 fL 80.0 - 100.0 fL [facility] Nucleated RBC (Bld) [#/Vol] 10*3/uL <0.01 k/uL [facility] Platelet mean volume (Bld) [Entitic vol] 8.2 fL Low 9.0 - 12.7 fL [facility] Platelets (Bld) [#/Vol] 570 10*3/uL High 150 - 400 k/uL [facility] RBC (Bld) [#/Vol] 4.80 10*6/uL 4.20 - 6.0 0 m/uL [facility] WBC (Bld) [#/Vol] 11.47 10*3/uL High 3.70 - 11.00 k/uL [facility] TYPE AND SCREEN,30 DAYon ABO O [facility] HIstorical Ab Scr Status Negative [facility] Rh Nom (Bld) Positive [facility] XR COLONIC TRANSIT IMAGE 3on 06-18-2021 IMPRESSION: Sitzmarks likely in the ascending colon and sigmoid. Stable prominently distended bowel loops within the abdomen. Healthcare Economics Consultant: [facility] Transcribe Date/Time: Jun 18 2021 8:28A Dictated by : FRANKI MILLER MD This examination was interpreted and the report reviewed and electronically signed by: FRANKI MILLER MD on Jun 18 2021 8:31AM [facility] DIVISION OF RADIOLOGY * * *Final Report* * * DATE OF EXAM: Jun 16 2021 8:26AM WOX [id number] - XR COLONIC TRANSIT IMAGE 3 / PROCEDURE REASON: Volvulus (HCC) * * * * Physician Interpretation * * * * ABDOMINAL RADIOGRAPHS HISTORY: 35 years old Clinical information: Volvulus (HCC) 1 tablet taken on Friday film no 3 TECHNIQUE: Images: XR COLONIC TRANSIT IMAGE 3 Comparison: June 14, 2021. RESULT: Findings: G-tube. Approximately 20 Sitzmarks in the right lower quadrant of the abdomen which may be in the ascending colon. 2 Sitzmarks are seen within the central pelvis and the be in the sigmoid. There is interval passage of the Sitzmarks from the left upper quadrant to the central pelvis. Stable prominent distention of multiple bowel loops within the abdomen. No free air is seen. Imaged lung bases are clear. DIVISION OF RADIOLOGY Provider, [facility] - 06/18/2021 * * *Final Report* * * DATE OF EXAM: Jun 16 2021 8:26AM WOX [id number] - XR COLONIC TRANSIT IMAGE 3 / PROCEDURE REASON: Volvulus (HCC) * * * * Physician Interpretation * * * * ABDOMINAL RADIOGRAPHS HISTORY: 35 years old Clinical information: Volvulus (HCC) 1 tablet taken on Friday film no 3 TECHNIQUE: Images: XR COLONIC TRANSIT IMAGE 3 Comparison: June 14, 2021. RESULT: Findings: G-tube. Approximately 20 Sitzmarks in the right lower quadrant of the abdomen which may be in the ascending colon. 2 Sitzmarks are seen within the central pelvis and the be in the sigmoid. There is interval passage of the Sitzmarks from the left upper quadrant to the central pelvis. Stable prominent distention of multiple bowel loops within the abdomen. No free air is seen. Imaged lung bases are clear. IMPRESSION IMPRESSION: Sitzmarks likely in the ascending colon and sigmoid. Stable prominently distended bowel loops within the abdomen. Healthcare Economics Consultant: [facility] Transcribe Date/Time: Jun 18 2021 8:28A Dictated by : FRANKI MILLER MD This examination was interpreted and the report reviewed and electronically signed by: FRANKI MILLER MD on Jun 18 2021 8:31AM EST [facility] XR COLONIC TRANSIT IMAGE 3Or dered By: [facility] Provider on 06-18-2021 [facility] XR COLONIC TRANSIT IMAGE 3on 06-16-2021 Radiology Study observation (narrative) [facility] XR COLONIC TRANSIT IMAGE 2on 06-14-2021 IMPRESSION: Sitzmarks as detailed in report. Healthcare Economics Consultant: [facility] Transcribe Date/Time: Jun 14 2021 5:14P Dictated by : MICHELET POTTER MD This examination was interpreted and the report reviewed and electronically signed by: MICHELET POTTER MD on Jun 14 2021 5:20PM [facility] DIVISION OF RADIOLOGY * * *Final Report* * * DATE OF EXAM: Jun 14 2021 9:47AM WOX [id number] - XR COLONIC TRANSIT IMAGE 2 / PROCEDURE REASON: Volvulus (HCC) * * * * Physician Interpretation * * * * EXAMINATION: XR COLONIC TRANSIT IMAGE 2 HISTORY: took 1 tablet on Friday, picture no. 2. Volvulus (HCC). TECHNIQUE: XR COLONIC TRANSIT IMAGE 2 Laterality: NOT APPLICABLE Number of different views (projections): 1 M: XB_1 COMPARISON: Comparison is made to prior study dated 12 June 2021 RESULT: Supine radiographs of the abdomen again demonstrate gaseous distention of bowel in the right abdomen and right upper quadrant consistent with volvulus. Gas-filled prominent small bowel seen in the right mid and lower abdomen. PEG tube is seen within gas filled but undistended stomach. 3 Sitzmarks are seen in the left upper quadrant which may represent residual markers in the stomach.. 2 Sitzmarks are seen in the right mid to lower abdomen laterally and a cluster of markers, approximately 8, is seen within the right lower quadrant possibly within distal small bowel. There are no markers in the rectosigmoid colon.. DIVISION OF RADIOLOGY Provider, [facility] - 06/14/2021 * * *Final Report* * * DATE OF EXAM: Jun 14 2021 9:47AM WOX [id number] - XR COLONIC TRANSIT IMAGE 2 / PROCEDURE REASON: Volvulus (HCC) * * * * Physician Interpretation * * * * EXAMINATION: XR COLONIC TRANSIT IMAGE 2 HISTORY: took 1 tablet on Friday, picture no. 2. Volvulus (HCC). TECHNIQUE: XR COLONIC TRANSIT IMAGE 2 Laterality: NOT APPLICABLE Number of different views (projections): 1 M: XB_1 COMPARISON: Comparison is made to prior study dated 12 June 2021 RESULT: Supine radiographs of the abdomen again demonstrate gaseous distention of bowel in the right abdomen and right upper quadrant consistent with volvulus. Gas-filled prominent small bowel seen in the right mid and lower abdomen. PEG tube is seen within gas filled but undistended stomach. 3 Sitzmarks are seen in the left upper quadrant which may represent residual markers in the stomach.. 2 Sitzmarks are seen in the right mid to lower abdomen laterally and a cluster of markers, approximately 8, is seen within the right lower quadrant possibly within distal small bowel. There are no markers in the rectosigmoid colon.. IMPRESSION IMPRESSION: Sitzmarks as detailed in report. Healthcare Economics Consultant: [facility] Transcribe Date/Time: Jun 14 2021 5:14P Dictated by : MICHELET POTTER MD This examination was interpreted and the report reviewed and electronically signed by: MICHELET POTTER MD on Jun 14 2021 5:20PM EST [facility] Radiology Study observation (narrative) [facility] XR COLONIC TRANSIT IMAGE 2Or dered By: Ccf Provider on 06-14-2021 [facility] Colon Study observatio n USon 06-12-2021 IMPRESSION: 1. Sitzmarks as described. 2. Diffuse colonic distention noting air is seen extending all the way to the rectum and as such may reflect ileus. Healthcare Economics Consultant: [facility] Transcribe Date/Time: Jun 12 2021 4:36P Dictated by : RODERICK HDZ MD This examination was interpreted and the report reviewed and electronically signed by: RODERICK HDZ MD on Jun 12 2021 4:39PM [facility] DIVISION OF RADIOLOGY * * *Final Report* * * DATE OF EXAM: Jun 12 2021 10:26AM WOX [id number] - XR COLONIC TRANSIT IMAGE 1 / PROCEDURE REASON: Volvulus (HCC) * * * * Physician Interpretation * * * * CLINICAL INDICATION: Colonic transit study TECHNIQUE: Supine frontal radiograph provided as colonic transit image #1 COMPARISON: Correlation made to CT dated May 14, 2021 FINDINGS: Stable elevation of the right hemidiaphragm. There is diffuse gaseous distention of the colon noting air is seen extending all the way to the level of the rectum and potentially reflects an ileus. A surgical staple line is identified within the left lower abdomen. 9 Sitzmarks are seen projecting over the stomach. Approximately 13 Sitzmarks are seen projecting over the right lower quadrant. Postsurgical changes in the lower lumbar spine. Transitional lumbosacral vertebral body present. DIVISION OF RADIOLOGY Provider, [facility] Imagin g [place] - 06/12/2021 * * *Final Report* * * DATE OF EXAM: Jun 12 2021 10:26AM WOX [id number] - XR COLONIC TRANSIT IMAGE 1 / PROCEDURE REASON: Volvulus (HCC) * * * * Physician Interpretation * * * * CLINICAL INDICATION: Colonic transit study TECHNIQUE: Supine frontal radiograph provided as colonic transit image #1 COMPARISON: Correlation made to CT dated May 14, 2021 FINDINGS: Stable elevation of the right hemidiaphragm. There is diffuse gaseous distention of the colon noting air is seen extending all the way to the level of the rectum and potentially reflects an ileus. A surgical staple line is identified within the left lower abdomen. 9 Sitzmarks are seen projecting over the stomach. Approximately 13 Sitzmarks are seen projecting over the right lower quadrant. Postsurgical changes in the lower lumbar spine. Transitional lumbosacral vertebral body present. IMPRESSION IMPRESSION: 1. Sitzmarks as described. 2. Diffuse colonic distention noting air is seen extending all the way to the rectum and as such may reflect ileus. Healthcare Economics Consultant: [facility] Transcribe Date/Time: Jun 12 2021 4:36P Dictated by : RODERICK HDZ MD This examination was interpreted and the report reviewed and electronically signed by: RODERICK HDZ MD on Jun 12 2021 4:39PM EST [facility] Radiology Study observation (narrative) [facility] Colon Study observatio n USOrdered By: Ccf Provider on 06-12-2021 [facility] CBCOrdered By: Derek Juarez on 06-06-2021 Hematocrit (Bld) [Volume fraction] 37.0 % Low 40.0 - 52.0 % [facility] Work Phone: Hemoglobin.gastrointes tinal spec 1 Ql (Stl) 12.6 g/dL Low 13.0 - 18.0 g/dL [facility] Work Phone: Interpretation and review of laboratory results Abnormal [facility] Work Phone: MCH (RBC) [Entitic mass] 29.0 pg 26.0 - 34.0 pg [facility] Work Phone: MCHC (RBC) [Mass/Vol] 34.0 % 32.0 - 36.0 % [employer] Work Phone: [phone] MCV (RBC) [Entitic vol] 85.3 fL 80.0 - 98.0 fL [employer] Work Phone: [phone] Platelet distribution width (Bld) [Ratio] 13.1 % 11.5 - 14.5 % [employer] Work Phone: [phone] Platelet mean volume (Bld) [Entitic vol] 9.0 fL 7.4 - 10.4 fL [employer] Work Phone: [phone] Platelets (Bld) [#/Vol] 385 10*3/uL 140 - 440 10*3/uL [employer] Work Phone: [phone] RBC (Bld) [#/Vol] 4.34 10*6/uL Low 4.40 - 5.9 0 10*6/uL [employer] Work Phone: [phone] WBC (Bld) [#/Vol] 12.0 10*3/uL High 3.6 - 10.7 10*3/uL [employer] Work Phone: [phone] Test Performed by [facility], [address] [place] [address] [facility] Work Phone: [phone] [employer] Work Phone: [phone] Comp Metabolic Panelon 06-06 Calcium [Mass/Vol] 9.8 mg/dL Normal 8.4-10.4 [facility] Comment on above: Performed By: #### P HOS3, HEMOG, CMP3, MG3, TRIG3 #### [facility] [employer] [address] [place] [phone] ALP [Catalytic activity/Vol] 239 U/L High 38-126 [facility] Comment on above: Performed By: #### P HOS3, HEMOG, CMP3, MG3, TRIG3 #### [facility] [employer] [address] [place] [address] ALT [Catalytic activity/Vol] 54 U/L High 0-49 [facility] Comment on above: Result Comment: The ALT test is performed by an updated assay method. Please note that the reference intervals have been changed and are now sex specific. Performed By: #### P HOS3, HEMOG, CMP3, MG3, TRIG3 #### [place] [address] [address] [place], [place] Anion gap [Moles/Vol] 12 mmol/L Normal 3-13 [facility] Comment on above: Performed By: #### P HOS3, HEMOG, CMP3, MG3, TRIG3 #### [place] [address] [address] [place], [place] AST [Catalytic activity/Vol] 42 U/L Normal 15-46 [facility] Comment on above: Performed By: #### P HOS3, HEMOG, CMP3, MG3, TRIG3 #### [place] [address] [address] [place], [place] Bilirubin [Mass/Vol] 0.8 mg/dL Normal 0.2-1.3 [facility] Comment on above: Performed By: #### P HOS3, HEMOG, CMP3, MG3, TRIG3 #### [place] [address] [address] [place], [place] CO2 [Moles/Vol] 24 mmol/L Normal 22-30 [facility] Comment on above: Performed By: #### P HOS3, HEMOG, CMP3, MG3, TRIG3 #### [place] [address] [address] [place], [place] Glucose [Mass/Vol] 81 mg/dL Normal 70-100 [facility] Comment on above: Performed By: #### P HOS3, HEMOG, CMP3, MG3, TRIG3 #### [place] [address] [address] [place], [place] Protein [Mass/Vol] 8.3 g/dL High 6.3-8.2 [facility] Comment on above: Performed By: #### P HOS3, HEMOG, CMP3, MG3, TRIG3 #### [place] [address] [address] [place], [place] Urea nitrogen [Mass/Vol] 26 mg/dL High 7-17 [facility] Comment on above: Performed By: #### P HOS3, HEMOG, CMP3, MG3, TRIG3 #### [facility] [address] [place] [address] eGFR OTHER > 90.0 Normal >60 [facility] Comment on above: Result Comment: KDIG O guidelines provide the following GFR categories: Stage GFR(ml/min/1.73 m2) Terms G1 >=90 Normal or high G2 60-89 Mildly decreased* G3a 45-59 Mildly to moderately decreased G3b 30-44 Moderately to severely decreased G4 15-29 Severely decreased G5 <15 Kidney failure *Relative to young adult level. In the absence of evidence of kidney damage, neither GFR category G1 nor G2 fulfill the criteria for CKD. The CKD-EPI equation is validated in individuals 18 years of age and older. Currently the best equation for estimating glomerular filtration rate (GFR) from serum creatinine in children is the Bedside Onofre equation. It is less accurate in patients with extremes of muscle mass, restriction of dietary protein, ingestion of creatine, extra-renal metabolism of creatinine, or treatment with medications that affect renal tubular creatinine secretion. Performed By: #### P HOS3, HEMOG, CMP3, MG3, TRIG3 #### [place] [address] [address] [place], [place] Albumin [Mass/Vol] 4.2 g/dL Normal 3.5-5.0 [facility] Comment on above: Performed By: #### P HOS3, HEMOG, CMP3, MG3, TRIG3 #### [place] [address] [place] [address] Chloride [Moles/Vol] 102 mmol/L Normal 98-107 [facility] Comment on above: Performed By: #### P HOS3, HEMOG, CMP3, MG3, TRIG3 #### [place] [address] [place] [address] Potassium [Moles/Vol] 3.9 mmol/L Normal 3.5-5.1 [facility] Comment on above: Performed By: #### P HOS3, HEMOG, CMP3, MG3, TRIG3 #### [place] [address] [place] [address] Sodium [Moles/Vol] 138 mmol/L Normal 135-145 [facility] Comment on above: Performed By: #### P HOS3, HEMOG, CMP3, MG3, TRIG3 #### [address] [address] Comp Metabolic PanelOrdered By: Derek Juarez on 06-06-2021 Creatinine [Mass/Vol] 0.91 mg/dL Normal 0.52-1.25 [facility] Work Phone: Comment on above: Performed By: #### P HOS3, HEMOG, CMP3, MG3, TRIG3 #### [place] [address] [place], [place] GFR/1.73 sq M.predicted among blacks MDRD (S/P/Bld) [Vol rate/Area] mL/min/{1.73_m2} Normal >60 [facility] Work Phone: Comment on above: Performed By: #### P HOS3, HEMOG, CMP3, MG3, TRIG3 #### [facility] [employer] [address] [address] Comprehensive Metabolic Pane lOrdered By: Derek Juarez on 06-06-2021 Albumin [Mass/Vol] 4.2 g/dL 3.5 - 5.0 g/dL [facility] Work Phone: ALP (Bld) [Catalytic activity/Vol] 239 U/L High 38 - 126 U/L [facility] Work Phone: ALT [Catalytic activity/Vol] 54 U/L High 0 - 49 U/L [facility] Work Phone: Comment on above: The ALT test is perf ormed by an updated assay method. Please note that the reference intervals have been changed and are now sex specific. Anion gap [Moles/Vol] 12 mmol/L 3 - 13 mmol/L [facility] Work Phone: AST [Catalytic activity/Vol] 42 U/L 15 - 46 U/L [facility] Work Phone: Bilirubin [Mass/Vol] 0.8 mg/dL 0.2 - 1 .3 mg/dL [facility] Work Phone: Calcium [Mass/Vol] 9.8 mg/dL 8.4 - 10. 4 mg/dL [employer] Work Phone: Chloride [Moles/Vol] 102 mmol/L 98 - 10 7 mmol/L [employer] Work Phone: CO2 [Moles/Vol] 24 mmol/L 22 - 30 mmol/L [employer] Work Phone: EGFR IF NonAfrican Cymraes >90.0 >60 mL/min [facility] Work Phone: Comment on above: KDIGO guidelines pro vide the following GFR categories: Stage GFR(ml/min/1.73 m2) Terms G1 >=90 Normal or high G2 60-89 Mildly decreased* G3a 45-59 Mildly to moderately decreased G3b 30-44 Moderately to severely decreased G4 15-29 Severely decreased G5 <15 Kidney failure *Relative to young adult level. In the absence of evidence of kidney damage, neither GFR category G1 nor G2 fulfill the criteria for CKD. The CKD-EPI equation is validated in individuals 18 years of age and older. Currently the best equation for estimating glomerular filtration rate (GFR) from serum creatinine in children is the Bedside Onofre equation. It is less accurate in patients with extremes of muscle mass, restriction of dietary protein, ingestion of creatine, extra-renal metabolism of creatinine, or treatment with medications that affect renal tubular creatinine secretion. Free PSA/Total PSA [Mass fraction] 8.3 g/dL High 6.3 - 8.2 g/dL [facility] Work Phone: Glucose [Mass/Vol] 81 mg/dL 70 - 100 mg/dL [facility] Work Phone: Potassium [Moles/Vol] 3.9 mmol/L 3.5 - 5.1 mmol/L [facility] Work Phone: Sodium [Moles/Vol] 138 mmol/L 135 - 145 mmol/L [facility] Work Phone: Urea nitrogen (BldV) [Mass/Vol] 26 mg/dL High 7 - 17 mg/dL [facility] Work Phone: Hemogramon 06-06-2021 Erythrocyte distribution width (RBC) [Ratio] 13.1 % Normal 11.5-14.5 [facility] Comment on above: Performed By: #### P HOS3, HEMOG, CMP3, MG3, TRIG3 #### [place] [address] [place], [place] Hematocrit (Bld) [Volume fraction] 37.0 % Low 40.0-52.0 [facility] Comment on above: Performed By: #### P HOS3, HEMOG, CMP3, MG3, TRIG3 #### [address] Hemoglobin (Bld) [Mass/Vol] 12.6 g/dL Low 13.0-18.0 [facility] Comment on above: Performed By: #### P HOS3, HEMOG, CMP3, MG3, TRIG3 #### [address] MCH (RBC) [Entitic mass] 29.0 pg Normal 26.0-34.0 [facility] Comment on above: Performed By: #### P HOS3, HEMOG, CMP3, MG3, TRIG3 #### [address] MCHC 34.0 % Normal 32.0-36.0 [facility] Comment on above: Performed By: #### P HOS3, HEMOG, CMP3, MG3, TRIG3 #### [address] MCV (RBC) [Entitic vol] 85.3 fL Normal 80.0-98.0 [facility] Comment on above: Performed By: #### P HOS3, HEMOG, CMP3, MG3, TRIG3 #### [address] Platelet mean volume (Bld) [Entitic vol] 9.0 fL Normal 7.4-10.4 [facility] Comment on above: Performed By: #### P HOS3, HEMOG, CMP3, MG3, TRIG3 #### [address] Platelets (Bld) [#/Vol] 385 10*3/uL Normal 140-440 [facility] Comment on above: Performed By: #### P HOS3, HEMOG, CMP3, MG3, TRIG3 #### [place] [address] [place] [address] RBC (Bld) [#/Vol] 4.34 10*6/uL Low 4.40-5.90 [facility] Comment on above: Performed By: #### P HOS3, HEMOG, CMP3, MG3, TRIG3 #### [address] [address] WBC (Bld) [#/Vol] 12.0 10*3/uL High 3.6-10.7 [facility] Comment on above: Performed By: #### P HOS3, HEMOG, CMP3, MG3, TRIG3 #### [address] [address] Magnesiumon 06-06-2021 Magnesium [Mass/Vol] 2.2 mg/dL Normal 1.6-2.3 [facility] Comment on above: Performed By: #### P HOS3, HEMOG, CMP3, MG3, TRIG3 #### [place] [address] [place] [address] MagnesiumOrdered By: Derek Juarez on 06-06-2021 Magnesium [Mass/Vol] 2.2 mg/dL 1.6 - 2 .3 mg/dL [facility] Work Phone: No Panel InformationOrdered By: Derek Juarez on 06-06-2021 Interpretation and review of laboratory results Abnormal [facility] Work Phone: Test Performed by [facility], [address] [place] [address] [facility] Work Phone: [facility] Work Phone: Phosphoruson 06-06-2021 Phosphate [Mass/Vol] 5.4 mg/dL High 2.5-4.5 [facility] Comment on above: Performed By: #### P HOS3, HEMOG, CMP3, MG3, TRIG3 #### [place] [address] [place] [address] PhosphorusOrdered By: Derek Juarez on 06-06-2021 Phosphate [Mass/Vol] 5.4 mg/dL High 2.5 - 4 .5 mg/dL [facility] Work Phone: Prealbuminon 06-06-2021 Prealbumin [Mass/Vol] 19.1 mg/dL Normal 17.6-36.0 [facility] Comment on above: Performed By: #### P AB #### [address] [address] PrealbuminOrdered By: Derek Juarez on 06-06-2021 Prealbumin [Mass/Vol] 19.1 mg/dL 17.6 - 36.0 mg/dL [facility] Work Phone: Test Performed by [facility], [address] [place] [address] [facility] Work Phone: [facility] Work Phone: Triglycerideon 06-06-2021 Triglyceride [Mass/Vol] 92 mg/dL Normal <150 [facility] Comment on above: Performed By: #### P HOS3, HEMOG, CMP3, MG3, TRIG3 #### [address] [address] TriglycerideOrdered By: Monica Juarez on 06-06-2021 Triglyceride [Mass/Vol] 92 mg/dL <150 [facility] Work Phone: [facility] Surgical Pathology Depar tmenton 05-14-2021 [facility] Surgical Pathology Department Name EUNICE VARGAS Pathologist: SHADI HUMPHRIES M.D. Date of Procedure: 05/14/2021 Date Received: 05/15/2021 Date Reported 05/21/2021 Submitting Physician: BRENDA NELSON Location: [facility] Copy To/Referring/Attending: SEBASTIÁN RHODES Other External # [id number] FINAL DIAGNOSIS A. EXTENDED RIGHT SABIHA-COLECTOMY: --SEGMENT OF COLON WITH CONGESTION --TERMINAL ILEUM AND APPENDIX WITH NO SIGNIFICANT PATHOLOGICAL FINDINGS --MULTIPLE BENIGN LYMPH NODES Electronically Signed Out By SHADI HUMPHRIES M.D./Isabel By the signature on this report, the individual or group listed as making the Final Interpretation/Diagnosis certifies that they have reviewed this case. Clinical History: transverse colon volvulus Specimens Submitted As: A: EXTENDED RIGHT SABIHA-COLECTOMY Other Case Numbers [id number] Gross Description: A: Received in formalin, labeled with the patient's name and hospital number and extended right hemicolectomy, is a segment of colon, including the cecum, ascending colon, transverse colon and appendix, 78 cm in length, 9.2 cm in circumferential diameter and a detached segment of small bowel measuring 5.2 cm. A 1.4 cm length of terminal ileum is attached. There is attached mesentery and fibrofatty tissue. The serosal surface is smooth, and glistening. The specimen is received open with two staple lines are present at the margins. A dilated area, measuring 32.5 cm in length and 20.2 cm in circumferential diameter is identified, 37 cm from the proximal line of resection and 3.0 cm from the distal line of resection. The margins of the specimen are viable. Mucosal polyps are present, ranging from 0.3 to 0.5 cm in greatest dimension. Omentum is present. Upon sectioning of the attached mesentery, lymph nodes are not identified. Photographs have been taken. Parking Patroller sections are submitted in 6 cassettes AAA Summary of Cassettes: Specimen Label Site A 1-3 medical claims representative sections of the dilated ischemic bowel 4 medical claims representative section of uninvolved right colon 5 medical claims representative section of uninvolved cecum 6 medical claims representative section of uninvolved terminal ileum, and small bowel 7 medical claims representative sections of appendix 8 2 polyps 9 4 possible lymph nodes 10 3 possible lymph nodes aaa/05/16/2021 [facility] Department of Pathology [address] [place] [address] Normal [facility] Comment on above: Performed By: #### [facility] #### [facility] Surgical Pathology Department [address] [place] [address] XR LUMBAR 2V AP/LATon 2019 XR LUMBAR 2V AP/LAT * * *Final Report* * * DATE OF EXAM: Dec 31 2019 8:11AM ANX [id number] - XR LUMBAR 2V AP/LAT / PROCEDURE REASON: Spondylolisthesis of lumbar region * * * * Physician Interpretation * * * * TECHNIQUE: XR LUMBAR 2V AP/LAT EXAM DATE: 12/31/2019 8:11 AM COMPARISON STUDIES: 09/10/2019 CLINICAL HISTORY: Pain Spondylolisthesis of lumbar region RESULT: Counting reference: Lumbosacral junction. For the purposes of this report, L4-5 is considered the level of the iliac crest. There is lumbarization of S1, with 6 nonrib-bearing lumbar-type vertebral bodies Unchanged posterior instrumented fusion L5/S1 with interbody fusion Minimal grade 1 anterolisthesis of L5/S1 status post fusion, stable Vertebral body heights are maintained Intervertebral disc heights maintained SI joints are maintained Markedly dilated large bowel 23 cm, progressed from the prior films IMPRESSION: Unchanged postsurgical findings Markedly dilated large bowel progressed from the prior films, cannot exclude an underlying large bowel obstruction, or potential volvulus by this film alone. This can be further assessed with CT abdomen/pelvis. Variant lumbosacral anatomy, as detailed Submitted to the file room for report to be called Healthcare Economics Consultant: JENIFFER Transcribe Date/Time: Dec 31 2019 8:13A Dictated by : ERENDIRA CROFT MD This examination was interpreted and the report reviewed and electronically signed by: ERENDIRA CROFT MD on Dec 31 2019 8:41AM EST Normal [facility] XR LUMBAR 2V AP/LATon 2019 XR LUMBAR 2V AP/LAT * * *Final Report* * * DATE OF EXAM: Sep 10 2019 11:55AM A1X 5229 - XR LUMBAR 2V AP/LAT / PROCEDURE REASON: Spondylolisthesis of lumbar region * * * * Physician Interpretation * * * * EXAMINATION: XR LUMBAR 2V AP/LAT CLINICAL HISTORY: L4-L5 disc extrusion with L4-L5 transforaminal lumbar interbody fusion with pedicle screw fixation 07/19/2019. Pain on top of left foot. Technique: XR LUMBAR 2V AP/LAT -- NOT APPLICABLE with 2 views on 2 images Comparison: Lumbar spine x-rays 06/09/2019. CT lumbar spine 07/19/2019. RESULT: Interval L4-L5 interbody fusion with bilateral pedicle screw spinal fixation. Hardware appears intact and normally aligned. Vertebral body alignment maintained. No fracture or subluxation. Visualized sacrum and sacroiliac joints intact. Stable gaseous dilation of bowel in the right upper quadrant. IMPRESSION: L4-L5 lumbar interbody fusion and pedicle screw fixation. Intact hardware and preserved anatomic alignment. Healthcare Economics Consultant: PSC[facility]adiel Transcribe Date/Time: Sep 12 2019 4:19A Dictated by : SHERRY ZULETA MD This examination was interpreted and the report reviewed and electronically signed by: SHERRY ZULETA MD on Sep 12 2019 4:26AM EST Normal [facility] CT LUMBAR SPINE WO IVCONon 1 09-19-2018 CT LUMBAR SPINE WO IVCON * * *Final Report* * * DATE OF EXAM: Jul 19 2019 10:42AM [facility] 0508 - CT LUMBAR SPINE WO IVCON / PROCEDURE REASON: NAVIGATION FOR FUSION * * * * Physician Interpretation * * * * EXAMINATION: CT LUMBAR SPINE WO IVCON CLINICAL HISTORY: L4-5 disc extrusion, intraoperative CT imaging for L4-5 transforaminal lumbar interbody fusion with pedicle screw fixation TECHNIQUE: Multiplanar intraoperative CT imaging was provided by radiology. Images were provided for interpretation following surgery. MQ: [id number] Dose-Length Product (DLP): 1183 mGy*cm. CT Dose Reduction Employed: Automated exposure control (AEC) COMPARISON: 06/03/2019 preoperative MRI RESULT: Counting reference: Lumbosacral junction. For the purposes of this report, most caudal disc space is designated L5-S1 , consistent with the preoperative MRI nomenclature. Intraoperative localization: Surgical device is seen posteriorly at the T12-L1 level Alignment: Subcentimeter grade 1 bilateral spondylitic spondylolisthesis at the L4-5 level, based on preoperative nomenclature Bone marrow /fracture: No evidence of a lytic or blastic process in the visualized spine. No evidence of acute or chronic fracture. Paraspinal soft tissues: The paraspinal soft tissues planes are maintained. IMPRESSION: intraoperative CT imaging for L4-5 transforaminal lumbar interbody fusion with pedicle screw fixation Healthcare Economics Consultant: PSCB Transcribe Date/Time: Jul 19 2019 10:48A Dictated by : FLORENCE FERGUSON MD This examination was interpreted and the report reviewed and electronically signed by: FLORENCE FERGUSON MD on Jul 19 2019 12:54PM EST Normal [facility] Activated PTTon 07-06-2019 aPTT Coag (Bld) [Time] 28.1 s Normal 23.0-32.4 [facility] Comment on above: Result Comment: Unfr actionated Heparin Therapeutic Ranges: Standard Heparin Nomogram: 53 to 78 seconds (anti-Xa level of 0.3 to 0.7 U/mL) Low Dose/ACS Nomogram: 49 to 67 seconds (anti-Xa level of 0.2 to 0.5 U/mL) Stroke Treatment Nomogram: 49 to 67 seconds (anti-Xa level of 0.2 to 0.5 U/mL) Note: The APTT therapeutic range has been determined for the current lot of laboratory APTT reagent in use throughout the [facility]. Performed By: #### A PTT #### [place] [address] Basic Panelon 07-06-2019 Creatinine [Mass/Vol] 0.90 mg/dL Normal 0.67-1.17 [facility] Comment on above: Performed By: #### P 8 #### [address] [address] Anion gap [Moles/Vol] 12 mmol/L Normal 8-16 [facility] Comment on above: Performed By: #### P 8 #### [address] [address] CO2 [Moles/Vol] 22 mmol/L Normal 21-32 [facility] Comment on above: Performed By: #### P 8 #### [address] [address] Urea nitrogen [Mass/Vol] 14 mg/dL Normal 7-18 [facility] Comment on above: Performed By: #### P 8 #### [address] [address] Calcium [Mass/Vol] 9.2 mg/dL Normal 8.5-10.1 [facility] Comment on above: Performed By: #### P 8 #### [address] [address] Glucose [Mass/Vol] 94 mg/dL Normal 70-99 [facility] Comment on above: Performed By: #### P 8 #### [address] [address] Chloride [Moles/Vol] 109 mmol/L High 98-107 [facility] Comment on above: Performed By: #### P 8 #### [facility] [address] [place] [address] Potassium [Moles/Vol] 4.4 mmol/L Normal 3.5-5.1 [facility] Comment on above: Performed By: #### P 8 #### [facility] [address] [place] [address] Sodium [Moles/Vol] 139 mmol/L Normal 136-145 [facility] Comment on above: Performed By: #### P 8 #### [facility] [address] [place] [address] Hemogramon 07-06-2019 Erythrocyte distribution width (RBC) [Ratio] 12.8 % Normal 11.6-14.4 [facility] Comment on above: Performed By: #### C BC1 #### [place] [address] Hematocrit (Bld) [Volume fraction] 45.3 % Normal 40.1-51.0 [facility] Comment on above: Performed By: #### C BC1 #### [facility] [address] [place] [address] Hemoglobin (Bld) [Mass/Vol] 15.5 g/dL Normal 13.7-17.5 [facility] Comment on above: Performed By: #### C BC1 #### [place] [address] MCH (RBC) [Entitic mass] 29.9 pg Normal 25.7-32.2 [facility] Comment on above: Performed By: #### C BC1 #### [facility] [address] [place] [address] MCHC (RBC) [Mass/Vol] 34.2 % Normal 32.3-36.5 [facility] Comment on above: Performed By: #### C BC1 #### [place] [address] MCV (RBC) [Entitic vol] 87.3 fL Normal 83.2-95.6 [facility] Comment on above: Performed By: #### C BC1 #### [facility] [address] [place], [place] [address] Platelet mean volume (Bld) [Entitic vol] 10.6 fL Normal 8.7-12.0 [facility] Comment on above: Performed By: #### C BC1 #### [facility] [address] [place], [place] [address] Platelets (Bld) [#/Vol] 315 thou/cmm Normal 141-365 [facility] Comment on above: Performed By: #### C BC1 #### [facility] [address] [place], [place] [address] RBC (Bld) [#/Vol] 5.19 mil/cmm Normal 4.63-6.08 [facility] Comment on above: Performed By: #### C BC1 #### [facility] [address] [place] [address] RDW SD 40.2 fl Normal 36.1-45.8 [facility] Comment on above: Performed By: #### C BC1 #### [facility] [address] [place], [place] [address] WBC (Bld) [#/Vol] 5.91 thou/cmm Normal 4.23-9.07 [facility] Comment on above: Performed By: #### C BC1 #### [facility] [address] [place] [address] MDRD GFRon 07-06-2019 GFR/1.73 sq M predicted among non-blacks MDRD (S/P/Bld) [Vol rate/Area] mL/min/{1.73_m2} Normal >60mL/min/1 .73m2 [facility] Comment on above: Result Comment: If t he patient is , multiply the result by 1.210. Performed By: #### G FR #### [facility] [address] [place] [address] Protimeon 07-06-2019 INR Coag (PPP) [Relative time] 0.97 {INR} Normal 0.90-1.30 [facility] Comment on above: Result Comment: Dali min K Antagonist (VKA) Therapeutic Range: INR 2 to 3 (Target INR of 2.5) Note: For patients treated with VKA drugs, such as warfarin, the [employer] 2012 Guideline recommends a therapeutic INR range of 2 to 3 (target INR of 2.5). This recommendation includes high-risk patients with antiphospholipid syndrome with previous arterial or venous thromboembolism, current-generation mechanical or bioprosthetic aortic heart valve replacement. Note: Patients with mechanical aortic valve replacement and additional risk factors for thromboembolic events (atrial fibrillation, previous thromboembolism, LV dysfunction, hypercoagulable conditions) or an older generation mechanical AVR (i.e., ball in-Cage) or any mechanical MVR should have a INR therapeutic range of 2.5 to 3.5 target INR of 3). Emigdio GH, et al. Chest 2012; 141:7S-47S Tyler HUBBARD et al. [facility] 2017; 70: 252-289 Performed By: #### P T #### [place] [address] PT Coag (PPP) [Time] 10.5 s Normal 9.7-13.0 [facility] Comment on above: Performed By: #### P T #### [place] [address] Type and Screenon 07-06-2019 ABO group Nom (Bld) O Normal [facility] Comment on above: Performed By: #### T &S #### [place] [address] Comment PAT specimen Normal [facility] Comment on above: Performed By: #### T &S #### [place] [address] RH Type Positive Normal [facility] Comment on above: Performed By: #### T &S #### [place] [address] Urinalysis Routineon 019 Appearance (U) CLEAR Normal [facility] Comment on above: Performed By: #### U RIN2 #### [place] [address] Bilirubin (U) [Mass/Vol] Negative Normal Negative [facility] Comment on above: Performed By: #### U RIN2 #### [facility] [address] [place] [address] Color (U) YELLOW Normal [facility] Comment on above: Performed By: #### U RIN2 #### [facility] [address] [place] [address] Glucose Ql (U) Negative Normal Negative [facility] Comment on above: Performed By: #### U RIN2 #### [facility] [address] [place] [address] Hemoglobin,Urine Negative Normal Negative [facility] Comment on above: Performed By: #### U RIN2 #### [facility] [address] [place] [address] Ketone Urine Negative Normal Negative [facility] Comment on above: Performed By: #### U RIN2 #### [place] [address] Leukocytes Esterase Negative Normal Negative [facility] Comment on above: Performed By: #### U RIN2 #### [facility] [address] [place] [address] Nitrites Urine Negative Normal Negative [facility] Comment on above: Performed By: #### U RIN2 #### [facility] [address] [place] [address] pH (U) 6.0 [pH] Normal 5.0-8.0 [facility] Comment on above: Performed By: #### U RIN2 #### [place] [address] Protein (U) [Mass/Vol] Negative Normal Negative [facility] Comment on above: Performed By: #### U RIN2 #### [place] [address] Specific [place], Ur 1.019 Normal 1.005-1.030 [facility] Comment on above: Performed By: #### U RIN2 #### [place] [address] Urobilinogen,Ur 0.2 EU/dL Normal 0.2-1.0 [facility] Comment on above: Performed By: #### U RIN2 #### [facility] [address] [place] [address] Bacteria LM.HPF (Urine sed) [#/Area] NONE Normal None [facility] Comment on above: Performed By: #### U RIN2 #### [facility] [address] [place] [address] Ep Cells Urine 0.1 /hpf Normal 0.0-5.0 [facility] Comment on above: Performed By: #### U RIN2 #### [facility] [address] [place] [address] Hyaline Cast 0.0 /lpf Normal 0.0-1.0 [facility] Comment on above: Performed By: #### U RIN2 #### [facility] [address] [place] [address] RBC LM.HPF (Urine sed) [#/Area] 0.2 /[HPF] Normal 0.0-5.0 [facility] Comment on above: Performed By: #### U RIN2 #### [facility] [address] [place] [address] WBC LM.HPF (Urine sed) [#/Area] 0.6 /[HPF] Normal 0.0-5.0 [facility] Comment on above: Performed By: #### U RIN2 #### [facility] [address] [place] [address] XR CHEST 2V FRONTAL/LATon XR CHEST 2V FRONTAL/LAT * * *Final Report* * * DATE OF EXAM: Jul 06 2019 10:21AM [id number] - XR CHEST 2V FRONTAL/LAT / PROCEDURE REASON: Lumbar disc herniation with radiculopathy * * * * Physician Interpretation * * * * EXAMINATION: CHEST RADIOGRAPH (2 VIEW FRONTAL & LATERAL) CLINICAL HISTORY: Lumbar disc herniation with radiculopathy MQ: [id number] Comparison: Radiograph of the lumbar spine 06/09/2019 and prior studies RESULT: Lines, tubes, and devices: None. Lungs and pleura: No consolidation. No lung mass. No pleural effusion. Mild elevation of the right hemidiaphragm. Cardiomediastinal silhouette: Normal cardiomediastinal silhouette. Other: Gaseous distention of the colon, with anterior interposition of the colon to the liver reaching the under-surface of the right hemidiaphragm, as noted on the prior radiograph of 06/09/2019. IMPRESSION: No consolidation or pleural effusion. Elevation of the right hemidiaphragm related to significant gaseous distention of the right hepatic flexure, as partially imaged on the radiograph of 06/09/2019. Healthcare Economics Consultant: JENIFFER Transcribe Date/Time: Jul 07 2019 10:56A Dictated by : ANALISA ELY MD This examination was interpreted and the report reviewed and electronically signed by: ANALISA ELY MD on Jul 07 2019 10:59AM EST Normal [facility] XR LUMBAR 4V AP/LAT/ FLEX/EX Ton 06-09-2019 XR LUMBAR 4V AP/LAT/ FLEX/EXT * * *Final Report* * * * * * SEE BOTTOM OF REPORT FOR ADDENDED TEXT * * * DATE OF EXAM: Jun 09 2019 3:10PM [id number] - XR LUMBAR 4V AP/LAT/ FLEX/EXT / PROCEDURE REASON: Lumbar disc herniation with radiculopathy * * * * Physician Interpretation * * * * * * * * * * * * ORIGINAL REPORT * * * * * * * * EXAM:XR LUMBAR 4V AP/LAT/ FLEX/EXT HISTORY: Lumbar disc herniation with radiculopathy COMPARISON:None IMPRESSION:Counting reference: Lumbosacral junction. For the purposes of this report, L5-S1 is considered the last lumbar type disc space and L4-L5 is considered the level of the iliac crest. S1 is transitional. There is grade 1 anterolisthesis L5 on S1 which remains unchanged with flexion and extension. Minimal retrolisthesis L3 on L4 and L4 on L5 is more prominent in neutral position and with extension which could be projectional. The disc spaces are maintained. There is no loss of vertebral body height or evidence of destructive lesion. * * * * * * * * ADDENDUM #1 * * * * * * * * ADDENDUM: Incidental small bilateral pleural effusions. Dedicated chest x-ray recommended to further evaluate. Healthcare Economics Consultant[facility] Transcribe Date/Time: Jun 15 2019 11:39A Dictated by : ALY HERNANDES MD This examination was interpreted and the report reviewed and electronically signed by: ALY HERNANDES MD on Jun 13 2019 6:55PM EST This document has been addended by: ALY HERNANDES MD on Jun 15 2019 11:40AM EST Normal [facility] MRI LUMBAR SPINE WO IVCONon 06-03-2019 MRI LUMBAR SPINE WO IVCON * * *Final Report* * * DATE OF EXAM: Jun 03 2019 7:21AM [id number] - MRI LUMBAR SPINE WO IVCON / PROCEDURE REASON: M64.9 pain in back * * * * Physician Interpretation * * * * EXAMINATION: MRI LUMBAR SPINE WO IVCON CLINICAL HISTORY: M64.9 pain in back TECHNIQUE: Routine lumbosacral spine MR protocol without gadolinium. MQ: [id number] COMPARISON: None. RESULT: Counting reference: Lumbosacral junction. For the purposes of this report, L4-5 is considered the level of the iliac crest and assume there are 5 lumbar-type vertebrae. Anatomic variant: None. Alignment: Alignment is anatomic. Bone marrow signal/fracture: No evidence of pathologic marrow infiltration. No evidence of prior fracture. Loss of disc height at T12-L1, L1-L2 and L5-S1. Loss of height and signal at L4-L5 Conus: The conus is within normal limits of signal intensity and morphology. Paraspinal soft tissues: Paraspinal soft tissues are within normal limits. Lower thoracic spine: Visualized lower thoracic canal and foramina are patent. The liver appears midline. T12-L1: Canal and foramina are patent. L1-L2: Canal and foramina are patent. L2-L3: Canal and foramina are patent L3-L4: Canal and foramina are patent L4-L5: Large left paracentral disc extrusion measures 1.9 x 1 x 1.8 cm, contributing to severe left subarticular stenosis. Canal and foramina are patent. L5-S1: Canal and foramina are patent Sacrum and iliac wings: The visualized sacrum and iliac wings are within normal limits. IMPRESSION: Large left paracentral disc extrusion at L4-5 compresses the left exiting L4 nerve root Anatomic Thoracic/Lumbar Variant: None. L4-5 is considered the level of the iliac crest and assume there are 5 lumbar-type vertebrae. Healthcare Economics Consultant: JENIFFER Transcribe Date/Time: Jun 03 2019 7:43A Dictated by : EMMA CALDERON MD This examination was interpreted and the report reviewed and electronically signed by: EMMA CALDERON MD on Jun 03 2019 7:57AM EST Normal [facility] Vital Signs Date Time Vital Sign Value Performing Clinician Marc busby 04-26-2025 11:12-0400 Body mass index (BMI) [Ratio] 30.49 kg/m2 Henrry Slabaugh PA-C Work Phone: [facility] 04-26-2025 11:12-0400 Body temperature 98.29 [degF] Henrry Slabaugh PA-C Work Phone: [facility] 04-26-2025 11:12-0400 Body weight 85.7 kg Henrry Slabaugh PA-C Work Phone: [facility] 04-26-2025 11:12-0400 Diastolic blood pressure 82 mm[Hg] Henrry Slabaugh PA-C Work Phone: [facility] 04-26-2025 11:12-0400 Heart rate 117 /min Henrry Slabaugh PA-C Work Phone: [facility] 04-26-2025 11:12-0400 Respiratory rate 16 /min Henrry Slabaugh PA-C Work Phone: [facility] 04-26-2025 11:12-0400 SaO2% (BldA) [Mass fraction] 98 % Henrry Slabaugh PA-C Work Phone: [facility] 04-26-2025 11:12-0400 Systolic blood pressure 112 mm[Hg] Henrry Slabaugh PA-C Work Phone: [facility] 04-01-2025 13:30-0400 Body temperature 97.5 [degF] Jesus Raza SALES SECRETARY-C Work Phone: [facility] 04-01-2025 13:30-0400 Diastolic blood pressure 88 mm[Hg] Jesus Raza SALES SECRETARY-C Work Phone: [facility] 04-01-2025 13:30-0400 Heart rate 102 /min Jesus Raza SALES SECRETARY-C Work Phone: [facility] 04-01-2025 13:30-0400 Respiratory rate 16 /min Jesus Raza SALES SECRETARY-C Work Phone: [facility] 04-01-2025 13:30-0400 SaO2% (BldA) [Mass fraction] 96 % Jesus Raza SALES SECRETARY-C Work Phone: [facility] 04-01-2025 13:30-0400 Systolic blood pressure 122 mm[Hg] Jesus Raza SALES SECRETARY-C Work Phone: [facility] 04-01-2025 12:14-0400 Body height 167.64 cm Jesus Raza SALES SECRETARY-C Work Phone: [facility] 04-01-2025 12:14-0400 Body mass index (BMI) [Ratio] 30.9 kg/m2 Jesus Raza SALES SECRETARY-C Work Phone: [facility] 04-01-2025 12:14-0400 Body weight 87 kg Jesus Raza SALES SECRETARY-C Work Phone: [facility] 12-22-2024 08:00-0400 Body weight 85.38 kg Mallory Mckeon MD Work Phone: [facility] 12-22-2024 08:00-0400 Diastolic blood pressure 85 mm[Hg] Mallory Mckeon MD Work Phone: [facility] 12-22-2024 08:00-0400 Heart rate 60 /min Mallory Mckeon MD Work Phone: [facility] 12-22-2024 08:00-0400 Respiratory rate 16 /min Mallory Mckeon MD Work Phone: [facility] 12-22-2024 08:00-0400 SaO2% (BldA) [Mass fraction] 97 % Mallory Mckeon MD Work Phone: [facility] 12-22-2024 08:00-0400 Systolic blood pressure 124 mm[Hg] Mallory Mckeon MD Work Phone: [facility] 07-15-2024 08:16-0500 Body mass index (BMI) [Ratio] 30 kg/m2 Madi Barfield MD Work Phone: [facility] 07-15-2024 08:16-0500 Body temperature 97.11 [degF] Madi Barfield MD Work Phone: [facility] 07-15-2024 08:16-0500 Body weight 84.3 kg Madi Barfield MD Work Phone: [facility] 07-15-2024 08:16-0500 Diastolic blood pressure 74 mm[Hg] Madi Barfield MD Work Phone: [facility] 07-15-2024 08:16-0500 Heart rate 67 /min Madi Barfield MD Work Phone: [facility] 07-15-2024 08:16-0500 Respiratory rate 20 /min Madi Barfield MD Work Phone: [facility] 07-15-2024 08:16-0500 SaO2% (BldA) [Mass fraction] 99 % Madi Barfield MD Work Phone: [facility] 07-15-2024 08:16-0500 Systolic blood pressure 111 mm[Hg] Madi Barfield MD Work Phone: [facility] 04-20-2024 07:53-0400 Body mass index (BMI) [Ratio] 29.05 kg/m2 Jesus Raza APRN.FINANCE EXECUTIVE Work Phone: [facility] 04-20-2024 07:53-0400 Body weight 81.65 kg Jesus Raza APRN.FINANCE EXECUTIVE Work Phone: [facility] 04-20-2024 07:53-0400 Diastolic blood pressure 82 mm[Hg] Jesus Raza APRN.FINANCE EXECUTIVE Work Phone: [facility] 04-20-2024 07:53-0400 Heart rate 73 /min Jesus Raza APRN.FINANCE EXECUTIVE Work Phone: [facility] 04-20-2024 07:53-0400 Respiratory rate 14 /min Jesus Knoble COMMUNICATION MANAGER.FINANCE EXECUTIVE Work Phone: [facility] 04-20-2024 07:53-0400 Systolic blood pressure 124 mm[Hg] Jesus Knoble COMMUNICATION MANAGER.FINANCE EXECUTIVE Work Phone: [facility] 09-26-2023 09:04-0500 Body weight 80.29 kg Jesus Knoble COMMUNICATION MANAGER.FINANCE EXECUTIVE Work Phone: [facility] 09-26-2023 09:04-0500 Diastolic blood pressure 74 mm[Hg] Jesus Knoble COMMUNICATION MANAGER.FINANCE EXECUTIVE Work Phone: [facility] 09-26-2023 09:04-0500 Heart rate 80 /min Jesus Knoble COMMUNICATION MANAGER.FINANCE EXECUTIVE Work Phone: [facility] 09-26-2023 09:04-0500 Respiratory rate 14 /min Jesus Knoble COMMUNICATION MANAGER.FINANCE EXECUTIVE Work Phone: [facility] 09-26-2023 09:04-0500 Systolic blood pressure 112 mm[Hg] Jesus Knoble COMMUNICATION MANAGER.FINANCE EXECUTIVE Work Phone: [facility] 07-17-2023 16:49-0500 Body temperature 98.01 [degF] Santa Rascon COMMUNICATION MANAGER.FINANCE EXECUTIVE Work Phone: [facility] 07-17-2023 16:49-0500 Body weight 81.01 kg Santa Rascon COMMUNICATION MANAGER.FINANCE EXECUTIVE Work Phone: [facility] 07-17-2023 16:49-0500 Diastolic blood pressure 80 mm[Hg] Santa Rascon COMMUNICATION MANAGER.FINANCE EXECUTIVE Work Phone: [facility] 07-17-2023 16:49-0500 Heart rate 85 /min Santa Rascon COMMUNICATION MANAGER.FINANCE EXECUTIVE Work Phone: [facility] 07-17-2023 16:49-0500 Respiratory rate 1 /min Santa Rascon COMMUNICATION MANAGER.FINANCE EXECUTIVE Work Phone: [facility] 07-17-2023 16:49-0500 SaO2% (BldA) [Mass fraction] 97 % Santa Rascon COMMUNICATION MANAGER.FINANCE EXECUTIVE Work Phone: [facility] 07-17-2023 16:49-0500 Systolic blood pressure 118 mm[Hg] Santa Rascon COMMUNICATION MANAGER.FINANCE EXECUTIVE Work Phone: [facility] 04-22-2023 10:41-0400 Body height 167.6 cm Rolando Jabier DO Work Phone: [facility] 04-22-2023 10:41-0400 Body weight 77.56 kg Rolando Jabier DO Work Phone: [facility] 04-22-2023 10:41-0400 Diastolic blood pressure 92 mm[Hg] Rolando Jabier DO Work Phone: [facility] 04-22-2023 10:41-0400 Heart rate 66 /min Rolando Jabier DO Work Phone: [facility] 04-22-2023 10:41-0400 SaO2% (BldA) [Mass fraction] 99 % Rolando Jabier DO Work Phone: [facility] 04-22-2023 10:41-0400 Systolic blood pressure 135 mm[Hg] Rolando Jabier DO Work Phone: [facility] 03-18-2023 13:09-0400 Body height 167.6 cm Rolando Jabier DO Work Phone: [facility] 03-18-2023 13:09-0400 Body weight 77.56 kg Rolando Jabier DO Work Phone: [facility] 03-18-2023 13:09-0400 Diastolic blood pressure 70 mm[Hg] Rolando Jabier DO Work Phone: [facility] 03-18-2023 13:09-0400 Heart rate 77 /min Rolando Jabier DO Work Phone: [facility] 03-18-2023 13:09-0400 Respiratory rate 16 /min Rolando Jabier DO Work Phone: [facility] 03-18-2023 13:09-0400 SaO2% (BldA) [Mass fraction] 99 % Rolando Jabier DO Work Phone: [facility] 03-18-2023 13:09-0400 Systolic blood pressure 123 mm[Hg] Rolando Jabier DO Work Phone: [facility] 03-13-2023 12:05-0400 Body temperature 98.49 [degF] Krislyn Aberegg PA Work Phone: [facility] 03-13-2023 12:05-0400 Body weight 77.75 kg Krislyn Aberegg PA Work Phone: [facility] 03-13-2023 12:05-0400 Diastolic blood pressure 84 mm[Hg] Krislyn Aberegg PA Work Phone: [facility] 03-13-2023 12:05-0400 Heart rate 88 /min Krislyn Aberegg PA Work Phone: [facility] 03-13-2023 12:05-0400 Respiratory rate 18 /min Krislyn Aberegg PA Work Phone: [facility] 03-13-2023 12:05-0400 SaO2% (BldA) [Mass fraction] 98 % Krislyn Aberegg PA Work Phone: [facility] 03-13-2023 12:05-0400 Systolic blood pressure 130 mm[Hg] Krislyn Aberegg PA Work Phone: [facility] 12-11-2022 09:20-0400 Body height 167.6 cm Collin Le MD Work Phone: [facility] 12-11-2022 09:20-0400 Body weight 71.67 kg Collin Le MD Work Phone: [facility] 12-11-2022 09:20-0400 Diastolic blood pressure 81 mm[Hg] Collin Le MD Work Phone: [facility] 12-11-2022 09:20-0400 Heart rate 69 /min Collin Le MD Work Phone: [facility] 12-11-2022 09:20-0400 Systolic blood pressure 123 mm[Hg] Collin Le MD Work Phone: [facility] 11-21-2022 10:02-0400 Body height 167.6 cm Pst 1 [facility] 11-21-2022 10:02-0400 Body temperature 97.9 [degF] Pst 1 [facility] 11-21-2022 10:02-0400 Body weight 74.84 kg Pst 1 [facility] 11-21-2022 10:02-0400 Diastolic blood pressure 73 mm[Hg] Pst 1 [facility] 11-21-2022 10:02-0400 Heart rate 70 /min Pst 1 [facility] 11-21-2022 10:02-0400 Respiratory rate 16 /min Pst 1 [facility] 11-21-2022 10:02-0400 SaO2% (BldA) [Mass fraction] 99 % Pst 1 [facility] 11-21-2022 10:02-0400 Systolic blood pressure 110 mm[Hg] Pst 1 [facility] 10-29-2022 10:30-0400 Diastolic blood pressure 87 mm[Hg] Daren Dimas MD Work Phone: [facility] 10-29-2022 10:30-0400 Heart rate 85 /min Daren Dimas MD Work Phone: [facility] 10-29-2022 10:30-0400 Respiratory rate 16 /min Daren Dimas MD Work Phone: [facility] 10-29-2022 10:30-0400 SaO2% (BldA) [Mass fraction] 98 % Daren Dimas MD Work Phone: [facility] 10-29-2022 10:30-0400 Systolic blood pressure 120 mm[Hg] Daren Dimas MD Work Phone: [facility] 10-29-2022 10:19-0400 Body temperature 98.1 [degF] Daren Dimas MD Work Phone: [facility] 10-29-2022 07:30-0400 Body height 167.6 cm Daren Dimas MD Work Phone: [facility] 10-29-2022 07:30-0400 Body weight 72.58 kg Daren Dimas MD Work Phone: [facility] 10-22-2022 10:43-0400 Diastolic blood pressure 86 mm[Hg] Daren Dimas MD Work Phone: [facility] 10-22-2022 10:43-0400 Heart rate 71 /min Daren Dimas MD Work Phone: [facility] 10-22-2022 10:43-0400 Respiratory rate 14 /min Daren Dimas MD Work Phone: [facility] 10-22-2022 10:43-0400 SaO2% (BldA) [Mass fraction] 100 % Daren Dimas MD Work Phone: [facility] 10-22-2022 10:43-0400 Systolic blood pressure 115 mm[Hg] Daren Dimas MD Work Phone: [facility] 10-22-2022 10:31-0400 Body temperature 96.8 [degF] Daren Dimas MD Work Phone: [facility] 09-26-2022 09:53-0500 Diastolic blood pressure 89 mm[Hg] Collin Le MD Work Phone: [facility] 09-26-2022 09:53-0500 Heart rate 74 /min Collin Le MD Work Phone: [facility] 09-26-2022 09:53-0500 Respiratory rate 16 /min Collin Le MD Work Phone: [facility] 09-26-2022 09:53-0500 SaO2% (BldA) [Mass fraction] 100 % Collin Le MD Work Phone: [facility] 09-26-2022 09:53-0500 Systolic blood pressure 122 mm[Hg] Collin Le MD Work Phone: [facility] 09-26-2022 09:33-0500 Body temperature 97.7 [degF] Collin Le MD Work Phone: [facility] 09-26-2022 08:35-0500 Body height 170.2 cm Collin Le MD Work Phone: [facility] 09-26-2022 08:35-0500 Body weight 74.39 kg Collin Le MD Work Phone: [facility] 08-22-2022 08:53-0500 Body height 170.2 cm Cassie Richardson MD Work Phone: [facility] 08-22-2022 08:53-0500 Body temperature 97.11 [degF] Cassie Richardson MD Work Phone: [facility] 08-22-2022 08:53-0500 Body weight 76.2 kg Cassie Richardson MD Work Phone: [facility] 08-22-2022 08:53-0500 Diastolic blood pressure 68 mm[Hg] Cassie Richardson MD Work Phone: [facility] 08-22-2022 08:53-0500 Heart rate 65 /min Cassie Richardson MD Work Phone: [facility] 08-22-2022 08:53-0500 SaO2% (BldA) [Mass fraction] 94 % Cassie Richardson MD Work Phone: [facility] 08-22-2022 08:53-0500 Systolic blood pressure 106 mm[Hg] Cassie Richardson MD Work Phone: [facility] 08-19-2022 10:54-0500 Body height 167.6 cm Coliln Le MD Work Phone: [facility] 08-19-2022 10:54-0500 Body weight 74.84 kg Collin Le MD Work Phone: [facility] 08-19-2022 10:54-0500 Diastolic blood pressure 80 mm[Hg] Collin Le MD Work Phone: [facility] 08-19-2022 10:54-0500 Heart rate 68 /min Collin Le MD Work Phone: [facility] 08-19-2022 10:54-0500 Systolic blood pressure 134 mm[Hg] Collin Le MD Work Phone: [facility] 03-07-2022 07:50-0400 Body height 170.2 cm Simone Becerra MD Work Phone: [facility] 03-07-2022 07:50-0400 Body weight 71.71 kg Simone Becerra MD Work Phone: [facility] 03-07-2022 07:50-0400 Diastolic blood pressure 75 mm[Hg] Simone Becerra MD Work Phone: [facility] 03-07-2022 07:50-0400 Heart rate 59 /min Simone Becerra MD Work Phone: [facility] 03-07-2022 07:50-0400 Systolic blood pressure 120 mm[Hg] Simone Becerra MD Work Phone: [facility] 01-08-2022 10:24-0400 Body temperature 99.39 [degF] Lacey Fortune COMMUNITY ASSOCIATION MANAGER Work Phone: [facility] 01-08-2022 10:24-0400 Diastolic blood pressure 60 mm[Hg] Lacey Fortune COMMUNITY ASSOCIATION MANAGER Work Phone: [facility] 01-08-2022 10:24-0400 Heart rate 67 /min Lacey Fortune COMMUNITY ASSOCIATION MANAGER Work Phone: [facility] 01-08-2022 10:24-0400 Respiratory rate 18 /min Lacye Fortune COMMUNITY ASSOCIATION MANAGER Work Phone: [facility] 01-08-2022 10:24-0400 SaO2% (BldA) [Mass fraction] 98 % Lacey Fortune COMMUNITY ASSOCIATION MANAGER Work Phone: [facility] 01-08-2022 10:24-0400 Systolic blood pressure 102 mm[Hg] Lacey Fortune COMMUNITY ASSOCIATION MANAGER Work Phone: [facility] 01-01-2022 12:04-0400 Body temperature 99 [degF] Maile Caruso RN Work Phone: [facility] 01-01-2022 12:04-0400 Diastolic blood pressure 74 mm[Hg] Maile Caruso RN Work Phone: [facility] 01-01-2022 12:04-0400 Heart rate 86 /min Maile Caruso RN Work Phone: [facility] 01-01-2022 12:04-0400 Respiratory rate 16 /min Maile Caruso RN Work Phone: [facility] 01-01-2022 12:04-0400 SaO2% (BldA) [Mass fraction] 97 % Maile Caruso RN Work Phone: [facility] 01-01-2022 12:04-0400 Systolic blood pressure 118 mm[Hg] Maile Caruso RN Work Phone: [facility] 12-31-2021 09:16-0400 Body height 170.2 cm Collin Le MD Work Phone: [facility] 12-31-2021 09:16-0400 Body weight 63.96 kg Collin Le MD Work Phone: [facility] 12-31-2021 09:16-0400 Diastolic blood pressure 74 mm[Hg] Collin Le MD Work Phone: [facility] 12-31-2021 09:16-0400 Heart rate 98 /min Collin Le MD Work Phone: [facility] 12-31-2021 09:16-0400 Systolic blood pressure 111 mm[Hg] Collin Le MD Work Phone: [facility] 12-28-2021 09:08-0400 Body temperature 98.6 [degF] Maile Caruso RN Work Phone: [facility] 12-28-2021 09:08-0400 Diastolic blood pressure 78 mm[Hg] Maile Caruso RN Work Phone: [facility] 12-28-2021 09:08-0400 Heart rate 80 /min Maile Caruso RN Work Phone: [facility] 12-28-2021 09:08-0400 Respiratory rate 16 /min Maile Caruso RN Work Phone: [facility] 12-28-2021 09:08-0400 SaO2% (BldA) [Mass fraction] 98 % Maile Caruso RN Work Phone: [facility] 12-28-2021 09:08-0400 Systolic blood pressure 114 mm[Hg] Maile Caruso RN Work Phone: [facility] 12-24-2021 11:15-0400 Body temperature 98.4 [degF] Maile Caruso RN Work Phone: [facility] 12-24-2021 11:15-0400 Body weight 65.32 kg Maile Caruso RN Work Phone: [facility] 12-24-2021 11:15-0400 Diastolic blood pressure 68 mm[Hg] Maile Caruso RN Work Phone: [facility] 12-24-2021 11:15-0400 Heart rate 74 /min Maile Caruso RN Work Phone: [facility] 12-24-2021 11:15-0400 Respiratory rate 16 /min Maile Caruso RN Work Phone: [facility] 12-24-2021 11:15-0400 SaO2% (BldA) [Mass fraction] 98 % Maile Caruso RN Work Phone: [facility] 12-24-2021 11:15-0400 Systolic blood pressure 122 mm[Hg] Maile Caruso RN Work Phone: [facility] 12-21-2021 08:50-0400 Body height 170.2 cm Anna Garber RN Work Phone: [facility] 12-21-2021 08:50-0400 Body temperature 96.01 [degF] Anna Garber RN Work Phone: [facility] 12-21-2021 08:50-0400 Body weight 65.32 kg Anna Garber RN Work Phone: [facility] 12-21-2021 08:50-0400 Diastolic blood pressure 70 mm[Hg] Anna Garber RN Work Phone: [facility] 12-21-2021 08:50-0400 Heart rate 76 /min Anna Garber RN Work Phone: [facility] 12-21-2021 08:50-0400 Respiratory rate 16 /min Anna Garber RN Work Phone: [facility] 12-21-2021 08:50-0400 SaO2% (BldA) [Mass fraction] 97 % Anna Garber RN Work Phone: [facility] 12-21-2021 08:50-0400 Systolic blood pressure 114 mm[Hg] Anna Garber RN Work Phone: [facility] 11-28-2021 13:55-0400 Body height 170.2 [address] 1 [facility] 11-28-2021 13:55-0400 Body temperature 98.1 [degF] Pst 1 [facility] 11-28-2021 13:55-0400 Body weight 67.13 kg Pst 1 [facility] 11-28-2021 13:55-0400 Diastolic blood pressure 70 mm[Hg] Pst 1 [facility] 11-28-2021 13:55-0400 Heart rate 95 /min Pst 1 [facility] 11-28-2021 13:55-0400 Respiratory rate 16 /min Pst 1 [facility] 11-28-2021 13:55-0400 SaO2% (BldA) [Mass fraction] 96 % Pst 1 [facility] 11-28-2021 13:55-0400 Systolic blood pressure 103 mm[Hg] Pst 1 [facility] 11-14-2021 10:55-0400 Body height 170.2 cm Collin Le MD Work Phone: [facility] 11-14-2021 10:55-0400 Body temperature 97.9 [degF] Collin Le MD Work Phone: [facility] 11-14-2021 10:55-0400 Body weight 69.4 kg Collin Le MD Work Phone: [facility] 11-14-2021 10:55-0400 Diastolic blood pressure 76 mm[Hg] Collin Le MD Work Phone: [facility] 11-14-2021 10:55-0400 Heart rate 95 /min Collin Le MD Work Phone: [facility] 11-14-2021 10:55-0400 Systolic blood pressure 124 mm[Hg] Collin Le MD Work Phone: [facility] Encounters Encounter Date Encounter Type Care Provider Facility Start: 04-26-2025 End: 04-26-2025 Office outpatient visit 25 minutes Henrry Haider PAPeteC Work Phone: [facility] Comment on above: Viral URI with cough (Primary Dx); SERVIN (dyspnea on exertion); Diarrhea, unspecified type Start: 04-26-2025 End: 04-26-2025 ambulatory HENRRY HAIDER Facility:[facility] Start: 04-01-2025 ambulatory Tom Campbell Facility :[facility] Start: 04-01-2025 Non-patient / Non-visit Tom Peoples nd DO -H-BGI Start: 04-01-2025 End: 04-01-2025 Admission to same day surgery center Tom Campbell DO -Endoscopy Work Phone: Start: 04-01-2025 End: 04-01-2025 ambulatory Jesus Raza SALES SECRETARY-C Work Phone: -Endoscopy Start: 01-17-2025 End: 01-17-2025 ambulatory Mallory Mckeon MD Work Phone: [facility] Work Phone: Start: 01-17-2025 End: 01-17-2025 Patient encounter procedure Zhane DUNCAN -Cat Scan [facility] Work Phone: Start: 01-17-2025 End: 01-17-2025 ambulatory Zhane Hollis Facility:[facility] Start: 12-22-2024 End: 12-22-2024 Patient encounter procedure Zhane DUNCAN -[facility] Work Phone: Start: 12-22-2024 End: 12-22-2024 ambulatory Mallory Mckeon MD Work Phone: [facility] Work Phone: Start: 10-27-2024 Encounter for genera l adult medical examination without abnormal findings Mallory Mckeon [facility] Start: 10-19-2024 End: 10-19-2024 ambulatory Jesus Raza SALES SECRETARY-C Work Phone: [facility] Work Phone: Start: 10-19-2024 End: 10-19-[address] Mallory Mckeon MD -Laboratory, [facility] Start: 10-19-2024 End: 10-19-2024 ambulatory Mallory Mckeon Facility:[facility] Start: 08-18-2024 End: 08-18-2024 Patient encounter procedure Tom Shannan TURPIN -[facility] Work Phone: Start: 08-18-2024 End: 08-18-2024 ambulatory Jesus Raza [facility] Start: 07-15-2024 End: 07-15-2024 ambulatory JESUS RAZA Facility:[facility] Start: 07-15-2024 End: 07-15-2024 Office outpatient visit 15 minutes Madi Barfield MD Work Phone: [facility] Comment on above: URI, acute (Primary Dx) Start: 05-25-2024 End: 05-25-2024 ambulatory [facility] Facility:[facility] Start: 05-14-2024 End: 05-14-2024 ambulatory [facility] Facility:[facility] Start: 05-11-2024 End: 05-11-2024 ambulatory [facility] Facility[facility] Start: 05-11-2024 End: 05-11-2024 ambulatory [facility] Facility:[facility] Start: 04-29-2024 End: 04-29-2024 Telephone encounter Jesus Raza APRN.FINANCE EXECUTIVE Work Phone: [facility] Comment on above: Orders Start: 04-27-2024 End: 04-29-2024 ambulatory Jesus Raza APRN.FINANCE EXECUTIVE Work Phone: [facility] [place] Start: 04-27-2024 End: 04-29-2024 Patient encounter procedure Jesus Raza APRN.FINANCE EXECUTIVE Work Phone: [facility] Comment on above: Gastroenterology Ref erral Start: 04-20-2024 End: 04-20-2024 Telephone encounter Jseus Raza APRN.FINANCE EXECUTIVE Work Phone: [facility] Comment on above: Results Start: 04-20-2024 End: 04-20-2024 Patient encounter procedure Jesus Raza APRN.FINANCE EXECUTIVE Work Phone: [facility] Comment on above: Nausea (Primary Dx); Colonic inertia; Ileus following gastrointestinal surgery (HCC); Generalized abdominal pain; Colon stricture (HCC) Start: 09-29-2023 Telephone encounter Jesus domínguez APRN.FINANCE EXECUTIVE Work Phone: [facility] [place] Comment on above: Results Start: 09-26-2023 End: 09-26-2023 Patient encounter procedure Jesus Raza APRN.FINANCE EXECUTIVE Work Phone: [facility] [place] Comment on above: Screening for lipid disorders (Primary Dx); Wellness examination; Screening for diabetes mellitus; Colonic inertia Start: 09-26-2023 End: 02-16-2024 Patient encounter status Jesus Knoble COMMUNICATION MANAGER.FINANCE EXECUTIVE Work Phone: [facility] Work Phone: Start: 07-17-2023 End: 07-17-2023 Subsequent hospital visit by physician Xr [facility] [place] Work Phone: Radiology Comment on above: Acute cough [R05.1] Start: 07-17-2023 End: 07-17-2023 Patient encounter procedure Santa Rascon COMMUNICATION MANAGER.FINANCE EXECUTIVE Work Phone: [facility] Comment on above: Acute cough (Primary Dx) Start: 04-22-2023 End: 04-22-2023 ambulatory ROLANDO P JABIER [facility] Start: 04-22-2023 End: 04-22-2023 Patient encounter procedure Rolando P Jabier DO Work Phone: [facility] Comment on above: Lumbar radiculopathy (Primary Dx) Start: 04-21-2023 End: 04-21-2023 Subsequent hospital visit by physician Mri Radio [facility] (I-Stat/1.5t) Work Phone: Radiology Comment on above: Spinal stenosis of l umbar region without neurogenic claudication [M48.061] Start: 03-18-2023 End: 03-18-2023 ambulatory ROLANDO P JABIER [facility] Start: 03-18-2023 End: 03-18-2023 Patient encounter procedure Rolando P Jabier DO Work Phone: [facility] Comment on above: Lumbar radiculopathy (Primary Dx); Spinal stenosis of lumbar region without neurogenic claudication Start: 03-18-2023 End: 03-18-2023 Subsequent hospital visit by physician Xr [place] [facility] [employer] [facility] [place] PHONE COUNSELOR Comment on above: Lumbar radiculopathy [M54.16] Start: 03-13-2023 End: 03-13-2023 Subsequent hospital visit by physician Xr [facility] [place] Work Phone: Radiology Comment on above: Acute left-sided low back pain with left-sided sciatica [M54.42] Start: 03-13-2023 End: 03-13-2023 Patient encounter procedure Jesus CURTIS Work Phone: [facility] Comment on above: Acute left-sided low back pain with left-sided sciatica (Primary Dx) Start: 03-04-2023 Telephone encounter Manoj dove DO Work Phone: [facility] [place] Start: 01-29-2023 End: 01-29-2023 Subsequent hospital visit by physician Xr [facility] [place] Work Phone: Radiology Comment on above: URI, acute [J06.9] Start: 01-21-2023 ambulatory DRAEN DIMAS Facility:[facility] Start: 12-11-2022 End: 12-11-2022 ambulatory COLLIN LE Facility:[facility] Start: 12-11-2022 End: 12-11-2022 Patient encounter procedure Collin Le MD Work Phone: [facility] Comment on above: Colonic inertia (Sailaja sotero Dx) Start: 12-06-2022 End: 12-06-2022 Subsequent hospital visit by physician Adonis [facility] [place] Work Phone: Radiology Comment on above: Status post reversal of ileostomy [Z98.890] Start: 11-21-2022 Encounter for other preprocedural examination DAREN DIMAS [facility] Start: 11-21-2022 End: 11-21-2022 Admission to [address] Start: 11-21-2022 End: 11-22-2022 ambulatory KINZA SUTTON Pre Surgical Testing Comment on above: Pre-op exam (Primary Dx); Colonic inertia Start: 11-21-2022 End: 11-21-2022 Preprocedural examination done [facility] Pre Surgical Testing Start: 10-29-2022 ambulatory CASSIE Glass ility:[facility] Start: 10-29-2022 End: 10-29-2022 Subsequent hospital visit by physician Daren Dimas MD Work Phone: [place] [facility] Comment on above: Rectal stricture [K6 2.4] Start: 10-22-2022 ambulatory CASSIE Glass ility:[facility] Start: 10-22-2022 End: 10-22-2022 Subsequent hospital visit by physician Daren Dimas MD Work Phone: [place] [facility] Comment on above: Rectal stenosis [K62 .4] Start: 10-16-2022 Orders Only Daren Dimas MD Work Phone: [facility] [place] Comment on above: Rectal stenosis (Sailaja sotero Dx) Start: 10-15-2022 Telephone encounter Collin santiago MD Work Phone: [facility] Comment on above: Patient Update Start: 10-06-2022 End: 10-07-2022 ambulatory LINETTE Sera LAMB DO [facility] Start: 10-02-2022 Telephone encounter Collin santiago MD Work Phone: [facility] Comment on above: Patient Update Start: 09-26-2022 End: 09-26-2022 Orders Only Daren Dimas MD Work Phone: [place] PROVID[facility] ADULT Comment on above: Rectal stricture (Pr imary Dx) Colonic inertia [K59 .9] Start: 09-16-2022 ambulatory COLLIN moralesty:[facility] Start: 09-16-2022 End: 09-16-2022 Subsequent hospital visit by physician Gi/Gu 1 [facility] (I-Stat) [facility] Comment on above: Colonic inertia [K59 .9] Start: 09-06-2022 Orders Only Collin lala MD Work Phone: [facility] Comment on above: Colonic inertia (Sailaja sotero Dx) Start: 08-22-2022 End: 08-22-2022 Patient encounter procedure Cassie Richardson MD Work Phone: [facility] Comment on above: Encounter for immuni zation (Primary Dx); Screening for lipid disorders; Wellness examination Start: 08-22-2022 End: 08-22-2022 Patient encounter status Cassie Richardson MD Work Phone: [facility] [place] Start: 08-19-2022 End: 08-19-2022 ambulatory COLLIN LE Facility:[facility] Start: 08-19-2022 End: 08-19-2022 Patient encounter procedure Collin Le MD Work Phone: [facility] Comment on above: Colonic inertia (Sailaja sotero Dx) Start: 04-04-2022 Patient Outreach Asha Bey RN [employer]pper Shovel Operator Management Comment on above: Transition Of Care ( TCM initial outreach-dc'd from [facility] 04/03/22) Start: 03-07-2022 End: 03-07-2022 Patient encounter procedure Simone Becerra MD Work Phone: [facility] Comment on above: Colonic inertia Start: 01-11-2022 Telephone encounter Leonie Alejandre RN [place] CARE MANAGEMENT Comment on above: Senior Hr Manager - H ospital Follow Up Start: 01-08-2022 End: 01-08-2022 Home visit Lacey Fortune LPN Work Phone: [facility] Comment on above: SN ROUTINE Start: 01-01-2022 End: 01-01-2022 Home visit Maile Caruso RN Work Phone: [facility] Comment on above: SN ROUTINE Start: 12-31-2021 End: 12-31-2021 Patient encounter procedure Collin Le MD Work Phone: [facility] Comment on above: Colonic inertia (Sailaja sotero Dx); Ventral hernia without obstruction or gangrene Start: 12-28-2021 End: 12-28-2021 Home visit Maile Caruso RN Work Phone: [facility] Comment on above: SN PRN VISIT Start: 12-27-2021 End: 12-27-2021 Home visit Maile Caruso RN Work Phone: [facility] Comment on above: SN UNMADE VISIT Start: 12-24-2021 End: 12-24-2021 Home visit Maile Caruso RN Work Phone: [facility] Comment on above: SN ROUTINE Start: 12-21-2021 End: 12-21-2021 Home visit Anna Garber RN Work Phone: [facility] Comment on above: SN SOC Start: 12-20-2021 Patient Outreach Kylee Owen RN [facility] Care Management Comment on above: Transition Of Care ( TCM [facility] discharge 12-19-21- initial outreach ) Start: 11-28-2021 End: 11-28-2021 Admission to establishment Pst [place] [facility] Start: 11-28-2021 End: 11-28-2021 [address] 1 Pre Surgical Testing Comment on above: Preop examination (P rimary Dx); Colonic inertia Start: 11-28-2021 End: 11-28-2021 Preprocedural examination done Pst 1 Pre Surgical Testing Start: 11-28-2021 End: 11-28-2021 Patient encounter procedure Ostomy Nurse [facility] Comment on above: Other specified coun seling (Primary Dx) Start: 11-14-2021 End: 11-14-2021 Patient encounter procedure Collin Le MD Work Phone: [facility] Comment on above: Colonic inertia (Sailaja sotero Dx); Ventral hernia without obstruction or gangrene Start: 06-16-2021 End: 06-16-2021 Subsequent hospital visit by physician Adonis [facility] [place] Work Phone: Radiology Comment on above: Volvulus (HCC) [K56. 2] Start: 06-14-2021 End: 06-14-2021 Subsequent hospital visit by physician Adonis [facility] [employer] Work Phone: Radiology Comment on above: Volvulus (HCC) [K56. 2] Start: 06-12-2021 End: 06-12-2021 Subsequent hospital visit by physician Adonis [facility] [employer] Work Phone: Radiology Comment on above: Volvulus (HCC) [K56. 2] Start: 06-06-2021 End: 10-27-2021 Subsequent hospital visit by physician Derek Juarez MD Work Phone: [facility] Procedures Date Procedure Procedure Detail Performing Clinician Start: 04-26-2025 COVID & INFLUENZA A/B & RSV PCR, ROUTINE Henrry Haider PA-C Work Phone: Start: 04-01-2025 Esophagogastroduodenoscopy Jesus jenkins SALES SECRETARY-C Work Phone: Start: 01-17-2025 Computed tomography of abdomen and pelvis with contrast Mallory Mckeon MD Work Phone: Start: 09-26-2023 Adult depression screening assessment Madi Barfield MD Work Phone: Start: 09-26-2023 Lipid 1995 panel - Serum or Plasma Benjamin Raza COMMUNICATION MANAGER.FINANCE EXECUTIVE Work Phone: Start: 07-17-2023 Radiologic exam chest 2 views [place] Aparna ggs COMMUNICATION MANAGER.FINANCE EXECUTIVE Work Phone: Start: 04-21-2023 Mri spinal canal lumbar w/o contrast material Rolando Nubia Jabier DO Work Phone: Start: 03-13-2023 Radex spine lumbosacral 2/3 views Sofie Fitzgerald PA Work Phone: Start: 01-29-2023 Radiologic exam chest 2 views Xiomara R Ath y PA-C Work Phone: Start: 12-06-2022 Radiologic exam abdomen 3+ views Brenda Manzo DO Work Phone: Start: 09-16-2022 Radiologic exam colon single contrast study Collin Le MD Work Phone: Start: 08-22-2022 PFIZER-BIONTSTEERads COVID-19 BIVALENT BOOSTER VACCINE, AGE 12+ YR Cassie Richardson MD Work Phone: Start: 08-22-2022 Lipid 1996 panel - Serum or Plasma Nilesh lindsey Jabier DO Work Phone: Start: 11-28-2021 Antibody screen Pst 1 Start: 06-16-2021 Radiologic exam abdomen 1 view Monroe garcia MD Work Phone: Start: 06-14-2021 Radiologic exam abdomen 1 view Monroe garcia MD Work Phone: Start: 06-12-2021 Radiologic exam abdomen 1 view Monroe garcia MD Work Phone: Start: 06-06-2021 Comprehensive metabolic panel Derek pritchett MD Work Phone: Start: 07-19-2019 Adult depression screening assessment Collin Le MD Work Phone: Start: 07-06-2019 Antibody screen Comment on above: Performed By: #### T&S #### [place] [id number] Plan of Treatment Date Care Activity Detail Author Start: 09-26-2028 Lipid panel Lipid Screening [facility] Start: 03-03-2028 Urine microalbumin profile [facility] Start: 08-22-2027 Lipid 1996 panel - Serum or Plasma Lipid Screening [facility] Start: 08-22-2027 Lipid panel Lipid Screening [facility] Start: 08-22-2027 LIPID SCREEN LIPID SCREEN [facility] Start: 04-11-2025 Influenza vaccination Influenza Vaccine (#1) [facility] Start: 04-01-2025 Patient discharge [facility] Start: 12-22-2024 Patient referral [facility] Work Phone: Start: 09-26-2024 Anxiety Screening Anxiety Screening [facility] Start: 09-26-2024 Covid-19 Vaccine () Covid-19 Vaccine () [facility] Comment on above: Postponed from 04/11/2023 (Declined at t his time) Start: 09-26-2024 Depression Screening Depression Screening [facility] Start: 04-11-2024 Covid-19 Vaccine () Covid-19 Vaccine () [facility] Start: 04-11-2024 Covid-19 Vaccine () Covid-19 Vaccine () [facility] Start: 04-11-2024 Influenza vaccination Influenza Vaccine (#1) [facility] Start: 02-08-2024 Influenza vaccination Influenza Vaccine (#1) [facility] Comment on above: Postponed from 04/11/2023 (Declined at t his time) Start: 09-26-2023 End: 12-26-2023 CBC W Auto Differential panel - Blood [facility] Work Phone: Comment on above: Expected: 09/26/2023, Expires: Start: 09-26-2023 End: 12-26-2023 Comprehensive metabolic 2000 panel - Serum or Plasma [facility] Work Phone: Comment on above: Expected: 09/26/2023, Expires: Start: 09-26-2023 End: 12-26-2023 Hemoglobin A1c in Blood [facility] Work Phone: Comment on above: Expected: 09/26/2023, Expires: Start: 09-26-2023 End: 12-26-2023 LIPID PANEL, NONFASTING [facility] Work Phone: Comment on above: Expected: 09/26/2023, Expires: Start: 04-11-2023 Covid-19 Vaccine (2022-24 season) Covid-19 Vaccine (2022- season) [facility] Start: 04-11-2023 Influenza vaccination [facility] Start: 02-07-2023 Influenza vaccination INFLUENZA (#1) [facility] Comment on above: Postponed from 04/11/2022 (Declined at t his time) Start: 09-06-2022 End: 09-06-2023 SARS-CoV-2 (COVID-19) RNA [Presence] in Respiratory specimen by RAVINDER with probe detection PRE-PROCEDURE & PRE-OPERATIVE COVID Microbiology Routine Colonic inertia Expected: 09/06/2022, Expires: 09/06/2023 [facility] Work Phone: Comment on above: Expected: 09/06/2022, Expires: Start: 08-11-2022 DEPRESSION ASSESSMENT DEPRESSION ASSESSMENT [facility] Start: 04-11-2022 Influenza vaccination INFLUENZA (#1) [facility] Start: 11-14-2021 End: 01-14-2022 Hemoglobin A1c/Hemoglobin.total in Blood HGB A1C Lab Routine Colonic inertia Ventral hernia without obstruction or gangrene Expected: 11/14/2021, Expires: 01/14/2022 [facility] Work Phone: Comment on above: Expected: 11/14/2021, Expires: Start: 09-25-2021 COVID-19 VACCINE (4 - Booster for Moderna series) COVID-19 VACCINE (4 - Booster for Moderna series) [facility] Start: 2020 LIPID SCREEN LIPID SCREEN [facility] Start: 07-19-2020 Adult depression screening assessment DEPRESSION SCREENING [facility] Start: 2012 HPV Vaccine (1 - 3-dose SCDM series) HPV Vaccine (1 - 3-dose SCDM series) [facility] Start: 12-15-2003 Anxiety Screening Anxiety Screening [facility] Start: 12-15-2003 Depression Screening Depression Screening [facility] Start: 12-15-2003 HEPATITIS C SCREENING HEPATITIS C SCREENING [facility] Start: 12-15-2003 Hepatitis C screening Hepatitis C Screening [facility] Start: 12-15-2003 HIV SCREENING HIV SCREENING [facility] Start: 12-15-2003 HIV screening HIV Screening [facility] C reactive protein [Mass/volume] in Serum or Plasma [facility] CBC W Auto Different ial panel - Blood [facility] Comprehensive metabo lic 2000 panel - Serum or Plasma [facility] End: 05-20-2025 CT Abdomen and Pelvis W contrast IV CT ABD/PEL W IVCON Radiology STAT Nausea Colonic inertia Ileus following gastrointestinal surgery (HCC) Generalized abdominal pain Colon stricture (HCC) 1 Occurrences starting 04/20/2024 until 05/20/2025 [facility] Work Phone: Comment on above: 1 Occurrences starting 04/20/2024 until 05/20/2025 CT Abdomen and Pelvi s W contrast IV [facility] H&P for surgery H&P FOR SURGERY Procedures Routine Colonic inertia Ordered: 09/06/2022 [facility] Work Phone: Comment on above: Ordered: 09/06/2022 IgA [Mass/volume] in Serum or Plasma [facility] Magnesium measurement [facility] End: 04-16-2024 Mri spinal canal lumbar w/o contrast material MRI LUMBAR SPINE WO IVCON Radiology Routine Spinal stenosis of lumbar region without neurogenic claudication 1 Occurrences starting 03/18/2023 until 04/16/2024 [facility] Work Phone: Comment on above: 1 Occurrences starting 03/18/2023 until 04/16/2024 Patient referral [facility] Work Phone: End: 04-11-2024 Radex spine lumbosacral 2/3 views XR LUMBAR LIMITED 2V FLEX/EXT Radiology Routine Lumbar radiculopathy 1 Occurrences starting 03/13/2023 until 04/11/2024 [facility] Work Phone: Comment on above: 1 Occurrences starting 03/13/2023 until 04/11/2024 Radex spine lumbosac ral 2/3 views XR LUMBAR LIMITED 2V FLEX/EXT Radiology Routine Lumbar radiculopathy 03/18/2023 12:44 PM EDT [facility] Work Phone: End: 09-18-2023 Radiologic exam colon single contrast study XR COLON SINGLE CONTRAST Radiology Routine Colonic inertia 1 Occurrences starting 08/19/2022 until 09/18/2023 [facility] Work Phone: Comment on above: 1 Occurrences starting 08/19/2022 until 09/18/2023 End: 09-06-2023 SIGMOIDOSCOPY SIGMOIDOSCOPY Endoscopy Routine Colonic inertia 1 Occurrences starting 09/06/2022 until 09/06/2023 [facility] Work Phone: Comment on above: 1 Occurrences starting 09/06/2022 until 09/06/2023 End: 09-26-2023 SIGMOIDOSCOPY SIGMOIDOSCOPY Endoscopy Routine Rectal stricture 1 Occurrences starting 09/26/2022 until 09/26/2023 [facility] Work Phone: Comment on above: 1 Occurrences starting 09/26/2022 until 09/26/2023 End: 09-26-2022 SIGMOIDOSCOPY SIGMOIDOSCOPY Endoscopy Routine Colonic inertia 1 Occurrences starting 09/26/2022 until 09/26/2022 [facility] Work Phone: Comment on above: 1 Occurrences starting 09/26/2022 until 09/26/2022 End: 10-17-2023 SIGMOIDOSCOPY SIGMOIDOSCOPY Endoscopy Routine Rectal stenosis 1 Occurrences starting 10/16/2022 until 10/17/2023 [facility] Work Phone: Comment on above: 1 Occurrences starting 10/16/2022 until 10/17/2023 End: 10-22-2022 SIGMOIDOSCOPY SIGMOIDOSCOPY Endoscopy Routine Rectal stenosis 1 Occurrences starting 10/22/2022 until 10/22/2022 [facility] Work Phone: Comment on above: 1 Occurrences starting 10/22/2022 until 10/22/2022 End: 10-29-2022 SIGMOIDOSCOPY SIGMOIDOSCOPY Endoscopy Routine Rectal stricture 1 Occurrences starting 10/29/2022 until 10/29/2022 [facility] Work Phone: Comment on above: 1 Occurrences starting 10/29/2022 until 10/29/2022 Tissue transglutamin ase IgA Ab [Units/volume] in Serum [facility] Immunizations Immunization Date Immunization [facility] COVID-19 booster vaccine, age 12+ yr, bivalent (PFIZER-BIONTSTEERads) Cassie Richardson MD Work Phone: [facility] 07-31-2021 influenza, injectabl e, quadrivalent, contains preservative Collin Le MD Work Phone: [facility] 07-31-2021 influenza virus vaccine, unspecified formulation Rolando Eugene DO Work Phone: [facility] 05-20-2020 influenza, injectabl e, quadrivalent, contains preservative Collin Le MD Work Phone: [facility] 05-12-2019 influenza, injectabl e, quadrivalent, contains preservative Collin Le MD Work Phone: [facility] 05-20-2018 influenza, seasonal, injectable Collin Le MD Work Phone: [facility] 03-03-2018 tetanus toxoid, reduced diphtheria toxoid, and acellular pertussis vaccine, adsorbed Collin Le MD Work Phone: [facility] 05-22-2017 tetanus toxoid, reduced diphtheria toxoid, and acellular pertussis vaccine, adsorbed Collin Le MD Work Phone: [facility] 04-22-2005 Meningococcal, MCV4, unspecified conjugate formulation(groups A, C, Y and W-135) Collin Le MD Work Phone: [facility] Work Phone: 04-22-2005 tetanus toxoid, reduced diphtheria toxoid, and acellular pertussis vaccine, adsorbed Collin Le MD Work Phone: [facility] Work Phone: 06-24-2002 hepatitis B vaccine, pediatric or pediatric/adolescent dosage Collin Le MD Work Phone: [facility] Work Phone: 11-26-2001 hepatitis B vaccine, pediatric or pediatric/adolescent dosage Collin Le MD Work Phone: [facility] Work Phone: 10-14-2001 hepatitis B vaccine, pediatric or pediatric/adolescent dosage Collin Le MD Work Phone: [facility] Work Phone: Payers Date Payer Category Payer Private Health Insurance [id number] 2024 Self-pay 2022 Unknown [id number] 2022 Unknown [id number] 2017 Private Health Insurance [employer] Sera ETNA CHOICE POS II [id number] 2017-Present [phone] [address] [place] [address] POS [id number] 2017 Private Health Insurance [id number] 1985 Unknown [id number] 1959 Unknown [id number] Unknown [id number] 62 Unknown [id number] 62 Unknown [id number] 62 Unknown [id number] 62 Unknown [id number] 62 Unknown [id number] 62 Unknown [id number] 62 Unknown [id number] 62 Unknown [id number] 62 Unknown [id number] 62 Social History Date Type Detail Facility [facility] Work Phone: Start: 1985 Sex Assigned At Not on file S [facility] Work Phone: Start: 11-14-2021 End: 10-29-2022 Tobacco smoking status NHIS Never smoked tobacco [facility] History of tobacco use Cigarette Smoker [facility] Start: 11-14-2021 End: 10-29-2022 Tobacco use and exposure Smokeless tobacco non-user [facility] Start: 11-14-2021 End: 04-26-2025 Alcohol intake Current drinker of alcohol (finding) [facility] Start: 11-14-2021 End: 12-11-2022 Alcohol intake [facility] Start: 08-20-2021 End: 11-29-2022 History SDOH Alcohol Frequency 1 [facility] Start: 08-20-2021 History SDOH Alcohol Std Drinks 98 [facility] Start: 08-20-2021 History SDOH Social Connections Phone 4 [facility] Start: 08-20-2021 End: 11-29-2022 History SDOH Social Connections Membership 2 [facility] Start: 08-20-2021 History SDOH Social Connections Living 3 [facility] Start: 08-20-2021 History SDOH Physica l Activity DPW 0 [facility] Start: 08-20-2021 End: 11-29-2022 History SDOH Financial 5 [facility] Start: 07-02-2019 End: 10-22-2022 Tobacco Comment cigar 2 - 3 x yearly [facility] Start: 1985 Sex Assigned At Male [facility] Start: 05-08-2021 End: 04-03-2022 Exposure to SARS-CoV-2 (event) Not sure [facility] Start: 11-28-2021 History SDOH Alcohol Comment 4 drinks per month [facility] Start: 11-18-2021 End: 11-28-2021 Exposure to SARS-CoV-2 (event) Unable to assess [facility] Start: 09-26-2022 Alcohol Comment 2-3x/week [facility] Start: 08-20-2021 End: 12-11-2022 Social connection and isolation panel [facility] Do you belong to any clubs or organizations such as caodaism groups, unions, fraternal or athletic groups, or school groups? No [facility] Are you now , , , , never or living with a partner? [facility] How often to you hav e a drink containing alcohol? Never [facility] Start: 07-12-[address] inks containing alcohol do you have on a typical day? Patient refused [facility] Do you feel stress - tense, restless, nervous, or anxious, or unable to sleep at night because your mind is troubled all the time - these days [OSQ] To some extent [facility] (I/We) worried wheth er (my/our) food would run out before (I/we) got money to buy more. Never true [facility] Work Phone: Start: 06-06-2021 Gender identity Identifies as male gender (finding) [facility] How often to you hav e a drink containing alcohol? 2-3 time sa week [facility] How many standard dr inks containing alcohol do you have on a typical day? 1 or 2 [facility] How hard is it for y ou to pay for the very basics like food, housing, medical care, and heating Somewhat hard [facility] (I/We) worried wheth er (my/our) food would run out before (I/we) got money to buy more. Sometimes true [facility] Start: 07-02-[address] [facility] Occasional tobacco smoker [facility] How often to you hav e a drink containing alcohol? 4 or more times a week [facility] Work Phone: Start: 10-27-2024 Sex Male (finding) [facility] Medical Equipment Procedure Code Equipment Code Equipment Origin al Text Equipment Identifier Dates Substitute Mastergraft Calcium Phosphate Collagen Bone Graft Putty Void - [id number] Start: 07-19-2019 Dev Bul Par 9x12 x23 - [id number] Start: 07-19-2019 Screw Viper Prim e Cfxfen Xtab 7x45mm [id number] Start: 07-19-2019 Screw Viper Prim e Cfxfen Xtab 7x50mm [id number] Start: 07-19-2019 William Viper 2 Lordotic Titanium 45mm Spinal Mis - [id number] Start: 07-19-2019 William Viper 2 Titanium 50mm Spinal Lordotic Minimally Invasive Surgery - [id number] Start: 07-19-2019 Set Titanium Scr ew 1 Inner Mis Spine - [id number] Start: 07-19-2019 Ileostomy suppli es: - 1 Box Coloplast One piece Assura drainable pouch OR - 2 boxes Coloplast Tacho red flat wafer # [id number] - 1 box Coloplast Tacho red drainable pouches # [id number] - 1 box Ryan small barrier rings # [id number] - 1 tube stomahesive paste # 2650 - 1 box Coloplast Elastic barrier strips # [id number] - 1 bottle stomahesive powder # [id number] - 1 box adhesive remover wipes - 1 box skin barrier prep wipes # [id number] Start: 12-07-2021 End: 03-18-2023 Comment on above: Ileostomy supplies: - 1 Box Coloplast One piece Assura drainable pouch OR - 2 boxes Coloplast [place] red flat wafer # [id number] - 1 box Coloplast [place] red drainable pouches # 60361 - 1 box Ryan small barrier rings # 7805 - 1 tube stomahesive paste # 2650 - 1 box Coloplast Elastic barrier strips # [id number] - 1 bottle stomahesive powder # [id number] - 1 box adhesive remover wipes - 1 box skin barrier prep wipes # Goals Date Patient Goal Desired Activity /State Functional Status Date Assessment Result Facility 12-03-2022 Are you deaf, or do you have serious difficulty hearing No 12/03/2022 9:41 AM Noemy Alarcon RN No [facility] 12-03-2022 Are you blind, or do you have serious difficulty seeing, even when wearing glasses No 12/03/2022 9:41 AM Noemy Alarcon RN No [facility] 12-03-2022 Do you have serious difficulty walking or climbing stairs No 12/03/2022 9:41 AM Noemy Alarcon RN No [facility] 12-03-2022 Do you have difficul ty dressing or bathing No 12/03/2022 9:41 AM Noemy Alarcon RN No [facility] 12-03-2022 Because of a physica l, mental, or emotional condition, do you have difficulty doing errands alone such as visiting a physician's office or shopping No 12/03/2022 9:41 AM EDT Noemy Del Valle RN No [facility] Mental Status Date Assessment Result Facility 04-01-2025 Cognitive function Level Of Cons ciousness Awake;Alert;Appropriate [facility] Work Phone: 04-01-2025 Cognitive function Voice/Name [facility] Work Phone: 12-03-2022 Because of a physica l, mental, or emotional condition, do you have serious difficulty concentrating, remembering, or making decisions No 12/03/2022 9:41 AM EDT Noemy Del Valle RN No [facility] Clinical Notes 06-12-2021 to 04-26-2025 Patient InstructionsSHenrry madrid PA-C - 04/26/2025 11:20 AM EDT Note Date & Type Note Facility 04-26-2025 Instructions Henrry Haider PA-C - 04/26/2025 11:28 AM EDT ASSESSMENT/PLAN: 1. Viral URI with cough X 1 day - COVID & INFLUENZA A/B & RSV PCR, ROUTINE 2. SERVIN (dyspnea on exertion) - - ALBUTEROL SULFATE HFA 90 MCG/ACTUATION AEROSOL INHALER - INHALATIONAL SPACING DEVICE 3. Diarrhea, unspecified type Discussed viral vs bacterial and no need for antibiotics at this time. Discussed OTC options: Encourage fluids, rest. Flonase OTC Decongestants May start Claritin or Zyrtec OTC as directed- helps to dry up runny nose and post nasal drip. Tylenol and Motrin for pain and fever Saline Nasil spray, Neti Pot, vaporizer, Vicks. Try Cepocol lozenges or Chloraseptic throat spray. Warm salt water gargles. Cough and deep breath- 10x/hr while awake. May use OTC Mucinex (guaifenesin) as directed for cough Seek further evaluation for worsening shortness of breath or other sick symptoms - See patient instructions for further recommendations. - Pt education along with discharge instructions given to pt - Pt agreeable with plan and verbalizes understanding. - Follow up with PCP if symptoms worsen or do not improve in the next 2-3 days. - Discussed Red Flag signs and when to go to ER. - If symptoms worsen, or new symptoms develop go to ER. - If you have worsening of breathing or breathing changes- go to ER. - If you have persistent fever unrelieved by Tylenol/Motrin- go to the ER. Henrry Haider PA-C 11:20 AM 04/26/25 documented in this encounter [facility] 04-26-2025 Note SARS-COV-2 (AGENT OF COVID-19) RNA: Not detected INFLUENZA A RNA: Not detected INFLUENZA B RNA: Not detected RESPIRATORY SYNCYTIAL VIRUS (RSV) RNA: Not detected [facility] Comment on above: Performed By: #### [id number] #### [facility] CLIA [id number] [address] [place] [address] OF [facility] 04-26-2025 Note HNO ID: [id number] Author: HENRRY HAIDER PA-C Service: ? Author Type: Physician Sleeve Sewer Type: Progress Notes Filed: 04/26/2025 12:17 Note Text: PATIENT NAME: Eunice Vargas DATE OF : 1985 TODAYS' DATE: 04/26/2025 Surgical mask and gloves worn for all in-person care. SUBJECTIVE: Patient presents with: Cough: Cough, AYALA, bodyaches, diarrhea and fatigue x 1 day HPI per the patient. History of Present Illness: 39 yo male presents with a PMHx of ADHD, colonic interia, and h/o ileostomy in place presents with cough, diarrhea, chest tightness, SERVIN, body aches, chills, and sinus congestion/pressure/drainage that started yesterday. Denies overt fever, Patient denies wheezing, increased WOB, or chest pain. No n/v, AYALA, or rash. Chart review: PMHx of ADHD, colonic interia, and h/o ileostomy in place. COVID exposure: none Influenza exposure: none RSV exposure: none Asthma: none Pneumonia: none Tobacco: none Covid Immunization Dates This patient has no relevant Health Maintenance data. Chart review: PMHx of ADHD, colonic interia, and h/o ileostomy in place. Pain on scale of 0-10 with 0 being no pain and 10 being greatest pain: 0 Self-treatment:. none Barriers to learning: none. Reviewed meds, OTCs, herbals or supplements. Reviewed allergies, medications, social history, and past medical history. Allergies: Allergies: Adhesive Other: See Comments Comment:Large blisters ALLERGIES Adhesive Past Medical History: PAST MEDICAL HISTORY Diagnosis Date ADHD (attention deficit hyperactivity disorder) Colon immotility colon inertia per pt Colonic inertia Ileostomy in place (HCC) 2021 Reversed 2022 Lumbar disc herniation with radiculopathy Sigmoidoscopy performed 09/26/2022 Past Surgical History: PAST SURGICAL HISTORY Procedure Laterality Date APPENDECTOMY [...] hemicolectomy PEG INSERTION_*FL 05/30/2021 PEG tube placed Family History: FAMILY HISTORY Problem Relation Age of Onset None Mother Diabetes Father Multiple Sclerosis Maternal Grandmother other (Other macular degeneration) Maternal Grandfather Tobacco History: Tobacco Use: Never Medications: No current outpatient medications on file. No current facility-administered medications for this visit. Medications and allergies reviewed by this provider. Social history SOCIAL HISTORY[1] REVIEW OF SYSTEMS Review of Systems Constitutional: Positive for chills and fatigue. HENT: Positive for congestion, postnasal drip and rhinorrhea. Eyes: Negative. Respiratory: Positive for cough and shortness of breath. Cardiovascular: Negative. Gastrointestinal: Positive for diarrhea. Endocrine: Negative. Genitourinary: Negative. Musculoskeletal: Positive for myalgias. Skin: Negative. Allergic/Immunologic: Negative. Neurological: Positive for headaches. Hematological: Negative. Psychiatric/Behavioral: Negative. Vitals: BP 112/82 Pulse 117 Temp 36.8 ?C (98.3 ?F) (Tympanic) Resp 16 Wt 85.7 kg (188 lb 15 oz) SpO2 98% BMI 30.49 kg/m? Physical Exam: Physical Exam Vitals reviewed. Constitutional: General: He is not in acute distress. Appearance: Normal appearance. He is well-developed and normal weight. He is not ill-appearing, toxic-appearing or diaphoretic. HENT: Head: Normocephalic and atraumatic. No right periorbital erythema or left periorbital erythema. Salivary Glands: Right salivary gland is not diffusely enlarged or tender. Left salivary gland is not diffusely enlarged or tender. Right Ear: Tympanic membrane, ear canal and external ear normal. Left Ear: Tympanic membrane, ear canal and external ear normal. Nose: Rhinorrhea present. No congestion. Rhinorrhea is clear. Right Sinus: No maxillary sinus tenderness or frontal sinus tenderness. Left Sinus: No maxillary sinus tenderness or frontal sinus tenderness. Mouth/Throat: Lips: [place]. No lesions. Mouth: Mucous membranes are moist. No oral lesions. Dentition: No gum lesions. Tongue: No lesions. Tongue does not deviate from midline. Palate: No mass and lesions. Pharynx: Oropharynx is clear. No pharyngeal swelling, oropharyngeal exudate, posterior oropharyngeal erythema or uvula swelling. Tonsils: No tonsillar exudate or tonsillar abscesses. Eyes: General: Lids are normal. No scleral icterus. Right eye: No discharge. Left eye: No dischar (more content not included)... [facility] 04-26-2025 History of Presen t illness Narrative Images from the original note were not included. PATIENT NAME: Eunice Vargas DATE OF : 1985 TODAYS' DATE: 04/26/2025 Surgical mask and gloves worn for all in-person care. SUBJECTIVE: Patient presents with: Cough: Cough, AYALA, bodyaches, diarrhea and fatigue x 1 day HPI per the patient. History of Present Illness: 39 yo male presents with a PMHx of ADHD, colonic interia, and h/o ileostomy in place presents with cough, diarrhea, chest tightness, SERVIN, body aches, chills, and sinus congestion/pressure/drainage that started yesterday. Denies overt fever, Patient denies wheezing, increased WOB, or chest pain. No n/v, AYALA, or rash. Chart review: PMHx of ADHD, colonic interia, and h/o ileostomy in place. COVID exposure: none Influenza exposure: none RSV exposure: none Asthma: none Pneumonia: none Tobacco: none Covid Immunization Dates This patient has no relevant Health Maintenance data. Chart review: PMHx of ADHD, colonic interia, and h/o ileostomy in place. Pain on scale of 0-10 with 0 being no pain and 10 being greatest pain: 0 Self-treatment:. none Barriers to learning: none. Reviewed meds, OTCs, herbals or supplements. Reviewed allergies, medications, social history, and past medical history. Allergies: Allergies: Adhesive Other: See Comments Comment:Large blisters ALLERGIES Adhesive Past Medical History: PAST MEDICAL HISTORY Diagnosis Date ADHD (attention deficit hyperactivity disorder) Colon immotility colon inertia per pt Colonic inertia Ileostomy in place (HCC) 2021 Reversed 2022 Lumbar disc herniation with radiculopathy Sigmoidoscopy performed 09/26/2022 Past Surgical History: PAST SURGICAL HISTORY Procedure Laterality Date APPENDECTOMY [...] hemicolectomy PEG INSERTION_*FL 05/30/2021 PEG tube placed Family History: FAMILY HISTORY Problem Relation Age of Onset None Mother Diabetes Father Multiple Sclerosis Maternal Grandmother other (Other macular degeneration) Maternal Grandfather Tobacco History: Tobacco Use: Never Medications: No current outpatient medications on file. No current facility-administered medications for this visit. Medications and allergies reviewed by this provider. Social history SOCIAL HISTORY[1] REVIEW OF SYSTEMS Review of Systems Constitutional: Positive for chills and fatigue. HENT: Positive for congestion, postnasal drip and rhinorrhea. Eyes: Negative. Respiratory: Positive for cough and shortness of breath. Cardiovascular: Negative. Gastrointestinal: Positive for diarrhea. Endocrine: Negative. Genitourinary: Negative. Musculoskeletal: Positive for myalgias. Skin: Negative. Allergic/Immunologic: Negative. Neurological: Positive for headaches. Hematological: Negative. Psychiatric/Behavioral: Negative. Vitals: BP 112/82 Pulse 117 Temp 36.8 C (98.3 F) (Tympanic) Resp 16 Wt 85.7 kg (188 lb 15 oz) SpO2 98% BMI 30.49 kg/m Physical Exam: Physical Exam Vitals reviewed. Constitutional: General: He is not in acute distress. Appearance: Normal appearance. He is well-developed and normal weight. He is not ill-appearing, toxic-appearing or diaphoretic. HENT: Head: Normocephalic and atraumatic. No right periorbital erythema or left periorbital erythema. Salivary Glands: Right salivary gland is not diffusely enlarged or tender. Left salivary gland is not diffusely enlarged or tender. Right Ear: Tympanic membrane, ear canal and external ear normal. Left Ear: Tympanic membrane, ear canal and external ear normal. Nose: Rhinorrhea present. No congestion. Rhinorrhea is clear. Right Sinus: No maxillary sinus tenderness or frontal sinus tenderness. Left Sinus: No maxillary sinus tenderness or frontal sinus tenderness. Mouth/Throat: Lips: [place]. No lesions. Mouth: Mucous membranes are moist. No oral lesions. Dentition: No gum lesions. Tongue: No lesions. Tongue does not deviate from midline. Palate: No mass and lesions. Pharynx: Oropharynx is clear. No pharyngeal swelling, oropharyngeal exudate, posterior oropharyngeal erythema or uvula swelling. Tonsils: No tonsillar exudate or tonsillar abscesses. Eyes: General: Lids are normal. No scleral icterus. Right eye: No discharge. Left eye: No discharge. Extraocular Movements: Extraocular movements intact. Conjunctiva/sclera: Conjunctivae normal. Pupils: Pupils are equal, round, and reactive to light. Pupils are equal. Cardiovascular: Rate and Rhythm: Normal rate and regular rhythm. Heart sounds: Normal heart sounds. Pulmonary: Effort: Pulmonary effort is normal. Breath sounds: Normal breath sounds and air entry. Musculoskeletal: Cervical back: Full passive range of motion without pain. No spinous process tenderness or muscular tenderness. Lymphadenopathy: Head: Right side of head: No submental, submandibular, tonsillar, preauricular or posterior auricular adenopathy. Left side of head: No submental, submandibular, tonsillar, preauricular or posterior auricular adenopathy. Cervical: No cervical adenopathy. Skin: General: Skin is warm. Capillary Refill: Capillary refill takes less than 2 seconds. Findings: No rash. Neurological: General: No focal deficit present. Mental Status: He is alert and oriented to person, place, and time. Cranial Nerves: No facial asymmetry. Psychiatric: Attention and Perception: Attention normal. Behavior: Behavior is cooperative. ASSESSMENT/PLAN: 1. Viral URI with cough - ICD9: 465.9, ICD10: J06.9 (primary diagnosis) X 1 day - COVID & INFLUENZA A/B & RSV PCR, ROUTINE 2. SERVIN (dyspnea on exertion) - ICD9: 786.09, ICD10: R06.09 - ALBUTEROL SULFATE HFA 90 MCG/ACTUATION AEROSOL INHALER - INHALATIONAL SPACING DEVICE 3. Diarrhea, unspecified type - ICD9: 787.91, ICD10: R19.7 Discussed viral vs bacterial and no need for antibiotics at this time. Discussed OTC options: Encourage fluids, rest. Flonase OTC Decongestants May start Claritin or Zyrtec OTC as directed- helps to dry up runny nose and post nasal drip. Tylenol and Motrin for pain and fever Saline Nasil spray, Neti Pot, vaporizer, Vicks. Try Cepocol lozenges or Chloraseptic throat spray. Warm salt water gargles. Cough and deep breath- 10x/hr while awake. May use OTC Mucinex (guaifenesin) as directed for cough Seek further evaluation for worsening shortness of breath or other sick symptoms - See patient instructions for further recommendations. - Pt education along with discharge instructions given to pt - Pt agreeable with plan and verbalizes understanding. - Follow up with PCP if symptoms worsen or do not improve in the next 2-3 days. - Discussed Red Flag signs and when to go to ER. - If symptoms worsen, or new symptoms develop go to ER. - If you have worsening of breathing or breathing changes- go to ER. - If you have persistent fever unrelieved by Tylenol/Motrin- go to the ER. Henrry Haider PA-C 11:20 AM 04/26/25 History and Record Review External record(s) reviewed: prior outpatient record. Findings from review of outpatient records: PMHx of ADHD, colonic interia, and h/o ileostomy in place. Systemic symptoms present included: Body aches, chills, Differential Diagnoses - Viral URI cough is more likely for the following reason(s): suggested by H&P - SERVIN is more likely for the following reason(s): suggested by H&P - Diarrhea is more likely for the following reason(s): suggested by H&P Disposition The patient was discharged. OTC Medications were advised: Encourage fluids, rest. Flonase OTC Decongestants May start Claritin or Zyrtec OTC as directed- helps to dry up runny nose and post nasal drip. Tylenol and Motrin for pain and fever Saline Nasil spray, Neti Pot, vaporizer, Vicks. Try Cepocol lozenges or Chloraseptic throat spray. Warm salt water gargles. Cough and deep breath- 10x/hr while awake. May use OTC Mucinex (guaifenesin) as directed for cough Medical Decision Making: Problems: Moderate: New problem with uncertain prognosis Data: Unique source(s) for external note(s) reviewed: 1 Unique test(s) ordered: 1 Risk: Moderate: Moderate risk from testing/treatment and Drug management Medical Decision Making Level: 4 - Moderate I spent a total of 20 minutes on the date of the service which included preparing to see the patient, [id number] patient care, completing clinical documentation, obtaining and/or reviewing separately obtained history, performing a medically appropriate examination, counseling and educating the patient/family/caregiver, and ordering medications, tests, or procedures. [1] Social History Tobacco Use Smoking status: Never Smokeless tobacco: Never Tobacco comments: cigar 2 - 3 x yearly Vaping Use Vaping status: Never Used Substance Use Topics Alcohol use: Yes Comment: 2-3x/week Drug use: Never documented in this encounter [facility] 04-01-2025 Consult note Note Date/Time April 01, 2025 1: 23pm [facility] Medical Records Department [address] [place] [address] Anesthesia Postop Eval I 04/01/25 1323 MR#: [id number] Acct: [id number] Name: EUNICE VARGAS Rep #:[id number] : 1985 39 From: Lul crenshaw CRNA PCP: Dr. Mallory Mckeon MD Status:REG SD C Y Race: C Location: [place] [address] Anesthesia: Postop Eval I Current Vital Signs Temperature: 97.9 F Pulse Rate: 98 Blood Pressure: 125/78 Respiratory Rate: 16 Pulse Ox: 98 Assessment Airway patent: Yes Spontaneous unlabored respirations: Yes nausea: No Vomiting: No Anesthesia Complication: No Fluid Hydration Crystalloid volume administer (ml): 300 Total IV fluid infused: 300 Progress Note Anesthesia document: Postop Eval 1 completed: Yes 04/01/25 1323 <Electronically signed by Lul Mcclellan CRNA> Date _ Lul Celestin CRNA Cosigner Signature: Date CC: ~ Signed [facility] Work Phone: 1(321) 179-144408-22-2025 History and physical note Author Tom Friend [facility] Note Date/Time April 01, 2025 1: 03pm [facility] Medical Records Department [address] [place] [address] History & Physical Exam 04/01/25 1302 MR#: [id number] Acct: [id number] Name: EUNICE VARGAS JOYCE Rep #:[id number] : 1985 39 From: Tom Campbell DO PCP: Dr. Mallory Mckeon MD Status:REG SD C Location: [place] [address] HPI - General General Date of Admission: 04/01/25 Date of Service: 04/01/25 Chief Complaint: GERD and Abdominal pain HPI Narrative OV 08/18/2024 - . 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 He eventually went and had a full colectomy for colonic inertia. He had a ileorectal anastomosis. He had been seeing surgery for intermittent abdominal pain in the hospital with intermittent small bowel obstruction. 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 Specifically the liver in the small bowel. He has been doing okay on a modified diet without any abdominal pain, cramping, nausea vomiting or diarrhea. After looking at the CAT scan of the abdomen pelvis it looks as if he does have a significant amount of rectum and some sigmoid colon. Patient is worried that ifhe has some rectum left that would increase his risk of problems in the future. He is having approximately 6-12 bowel movements a day. Recommendations: -workup for inflammatory bowel disease - Went over food allergies in great detail -We will do food elimation diet and follow up in 4months -Further recommendations to follow Labs completed 10/19/2024 reveal a normal CBC, liver panel, lipid panel and TSH. IBD serologies, serum copper, QuantiFERON, iron panel, and acute hepatitis panelwere unremarkable May 2024. CRP was previously elevated to 7.18 May 2024. Food allergen panel revealed allergy to corn, cows milk, peanut, pork, and wheat. CT prior node (1.5cm) on CT April 2024 - reports he is doing well - seen in office today with his mom - bowel movements are still diarrhea, has regular cramping - reports he tries to hydrate a lot - laugh or turning/twisting can cause abdominal cramping, can try to stretch it out on occasion - denies any HB, N/V - he is having 4-8 stools daily - he is not taking anything to slow down stools - reports bowel habits are low to mid in terms of daily lifestyle - he is following food allergies - the only food he has not fully removed is wheat - RLQ stabbing, burning pain, around area of prior incision - no change in pain with a BM - no change in pain with movement [facility] Medical History Wears contact lenses Wears glasses Alcohol use Marijuana use Non-smoker Ileostomy present Home Medications ?Medication ?Instructions ?Recorded ?Last Taken ?Type cetirizine 10 mg tablet (24Hour 10 mg PO DAILY 5 Unknown History Allergy) Allergy/AdvReac Type Severity Reaction Status Date / Time No Known Allergies Allergy Verified 04/01/25 12:12 Surgical History H/O spinal fusion History of appendectomy History of reversal of ileostomy H/O colectomy Social History Smoking Status: Never smoker ROS Constitutional Constitutional: Denies fatigue, fever(s), poor appetite, weight gain or weight loss Gastrointestinal Gastrointestinal: Denies belching, bloating, change in bowel habits, change in stool character, chewing difficulty, coffee ground emesis, constipation, cramping, diarrhea, dyspepsia, dysphagia, early satiety, excessive flatus, fecalincontinence, heartburn, hematemesis, hematochezia, hemorrhoids, loose stools, melena, nausea, odynophagia, rectal bleeding, tenesmus, vomiting or weight changes Vital Signs Vital Signs Vital Signs: 04/01/25 12:14 04/01/25 12:14 04/01/25 12:35 Temperature 98.2 F 98.2 F Temperature Source Temporal Pulse Rate 83 83 Respiratory Rate 16 16 Respiratory Pattern Normal Blood Pressure 137/89 H 137/89 H Blood Pressure Mean 105 Blood Pressure Source Monitor Blood Pressure Position Sitting Blood Pressure Location Left Arm Pulse Ox 99 99 Oxygen Delivery Method Room Air Room Air Weight Weight: 191 lb 12.835 oz Body Mass Index (BMI) 30.9 Physical Exam Const alert, oriented x3, no apparent distress and healthy appearing General Appearance: cooperative GI normal to inspection, nondistended, normoactive bowel sounds, soft to palpation,non-tender and non-distended Percussion: normal to percussion Rectal Exam: deferred Assessment & Plan Assessment/Plan (1) RLQ abdominal pain: (2) LUQ pain: PLAN: Assessment and Plan Assessment and Plan (1) Diarrhea: Status: Acute Qualifiers: Diarrhea type: unspecified type Qualified Code(s): R19.7 - Diarrhea, unspecified (2) Food allergy: Status: Acute (3) LUQ pain: Status: Acute (4) RLQ abdominal pain: Status: Acute Orders: Orders CRP 12/22/24 R10.12 - Left upper quadrant pain, R10.31 - Right lower quadrant pain, R19.7 - Diarrhea, unspecified, Z91.018 - Allergy to other foods t-Transglutaminase IgA 12/22/24 R10.12 - Left upper quadrant pain, R10.31 - Right lower quadrant pain, R19.7 - Diarrhea, unspecified, Z91.018 - Allergy to other foods Immunoglobulin A 12/22/24 R10.12 - Left upper quadrant pain, R10.31 - Right lower quadrant pain, R19.7 - Diarrhea, unspecified, Z91.018 - Allergy to other foods Abdomen/Pelvis WITH Contrast 12/22/24 R10.12 - Left upper quadrant pain, R10.31- Right lower quadrant pain, R19.7 - Diarrhea, unspecified, Z91.018 - Allergy toother foods CBC W/Diff, Automated 12/22/24 R10.12 - Left upper quadrant pain, R10.31 - Right lower quadrant pain, R19.7 - Diarrhea, unspecified, Z91.018 - Allergy to other foods Comprehensive Metabolic Profil 12/22/24 R10.12 - Left upper quadrant pain, R10.31 - Right lower quadrant pain, R19.7 - Diarrhea, unspecified, Z91.018 - Allergy to other foods Magnesium 12/22/24 R10.12 - Left upper quadrant pain, R10.31 - Right lower quadrant pain, R19.7 - Diarrhea, unspecified, Z91.018 - Allergy to other foods Referrals Allergy & Immunology R10.12 - Left upper quadrant pain, R10.31 - Right lower quadrant pain, R19.7 - Diarrhea, unspecified, Z91.018 - Allergy to other foods Plan 39-year-old male with a complex surgical history, including total colectomy withileorectal anastomosis following right hemicolectomy for sequelae of distention and ultimately total colectomy for colonic inertia. He presents today for follow-up, overall doing well with improved abdominal symptoms on a modified diet, though he continues to have loose stools (4-8 daily) consistent with his postsurgical anatomy. He reports chronic abdominal cramping, particularly stabbing and burning RLQ pain at the prior ostomy site, without clear relation to bowel movements or physical activity. He expresses concern regarding systemic inflammation from known food allergies (corn, cows milk, peanut, pork, and wheat) and the potential for future bowel complications. He reports he was previously informed-or it is his understanding-that food allergens identified onserum testing contributed to systemic inflammation resulting in colonic inertia. However, this connection is unlikely, as the accuracy and clinical relevance ofthe serum allergy testing he underwent remain uncertain. At this time, there isinsufficient evidence to directly link these food allergens to the etiology of his underlying motility disorder. He has eliminated some trigger foods, he is not fully avoiding all identified allergens. A CT scan from 04/30/2024 showed mesenteric lymphadenopathy (largest node 1.5 cm in the RLQ), and he also reportsa history of hiatal and ventral hernias, though prior imaging confirming this was not available in current records. To further evaluate his abdominal pain and rule out ongoing inflammation or structural issues, an EGD has also been scheduled given his surgical history and reported upper abdominal discomfort, although he denies current GERD symptoms, nausea, or vomiting. Stool studies including fecal calprotectin and cultures have been ordered, along with repeat labs (CBC, CMP, magnesium, CRP, TTG IgA, and total IgA). Given concerns for ongoing dietary triggers and systemic symptoms, the patient has been referred toallergist/studio operation engineer Dr. Idris Ghosh for review of prior serum allergen testing and management guidance. The role of magnesium supplementation was discussed; however, due to the potential for worsening diarrhea, he is advised to defer use at this time. He currently does not take antidiarrheals. Follow-up will be based on the results of labs, imaging, and EGD findings. Note: [employer] speech recognition elementary instructional coach software was used to create portions of this document. Sound-alike and misspelled words, as well as other elementary instructional coach errors may be contained in the documentation. Patient Instructions: GIPCR/Calprotectin/H. Pylori - P4 Diagnostics EGD - LUQ pain ?HH CT CRP/Celiac serologies - will do in [address] Ghosh Follow-up in office after completion of testing and consult with Dr. Ghosh Plan Details Follow Up: 3 Months 04/01/25 1303 <Electronically signed by Tom Campbell DO> Cosigner Signature (if applicable): CC: Dr. Mallory Mckeon MD; Tom Campbell DO~ Signed [facility] Work Phone: 1(587) 535-766808-22-2025 Consult note Author Josiah [facility] Note Date/Time April 01, 2025 12 :35pm [facility] Medical Records Department [address] [place] [id number] Pre-Anesthesia Evaluation 04/01/25 1227 MR#: [id number] Acct: [id number] Name: EUNICE VARGAS Rep #:[id number] : 1985 39 From: Josiah Blackwell MD PCP: Dr. Malloyr Mckeon MD Status:REG SD C Y Race: C Location: [place] [address] ASA Classification* ASA Classification ASA Classification: 2 Assessment & Plan Anesthesia* Anesthesia Assessment Anesthesia Assessment: Discussed sedation and/or anesthesia options, risks, benefits, and alternatives with patient/parents/legal guardian/POA. Questions invited. The patient/parents/legal guardian/POA seems to understand and agrees to proceedwith anesthesia plan. Reviewed the physical assessment, medical history, allergy history and patient home medications list prior to surgery/procedure/anesthetic and documented any changes. Performed airway and anesthesia risk assessments. Anesthesia Type Anesthesia Type: MAC History Source History Obtained from:: Patient and Chart Anesthesia Focused Assessment* Temperature: 98.2 F Pulse Rate: 83 Blood Pressure: 137/89 Respiratory Rate: 16 Pulse Ox: 99 Oxygen Delivery Method: Room Air Airway Assessment Mouth opens: >3 cm Mallampati Score: III Teeth Condition: Intact Neck Range of motion (ROM): Full ROM Labs Anesthesia Preop lab: CBC WBC 5.4 K/mm3 (4.4-11.0) 10/19/24 10:20 10/19/24 RBC 5.01 M/mm3 (4.6-6.2) 10/19/24 10:20 10/19/24 Hgb 15.2 g/dL (13.0-16.5) 10/19/24 10:20 10/19/24 Hct 44.4 % (40-54) 10/19/24 10:20 10/19/24 Plt Count 261 K/mm3 (150-450) 10/19/24 10:20 10/19/24 CHEMISTRY Potassium 4.4 mmol/L (3.3-5.1) 10/19/24 10:20 10/19/24 Sodium 137 mmol/L (133-145) 10/19/24 10:20 10/19/24 BUN 12 mg/dL (4-19) 10/19/24 10:20 10/19/24 Creatinine 0.86 mg/dL (0.70-1.20) 10/19/24 10:20 10/19/24 Glucose 93 mg/dL (70-99) 10/19/24 10:20 10/19/24 TSH 3.810 uIU/mL (0.300-4.200) 10/19/24 10:10/09 COAG Pre-Assessment Diagnosis/Proposed Procedure Planned Operative Procedure(s): EGD Anesthesia History Anesthesia History - accounts collector: Anesthesia History - accounts collector Hx Hospitalization No 03/30/25 10:02 Any Problems With Anesthesia No 03/30/25 10:02 Cholinesterase deficiency No 03/30/25 10:02 You/Your Family Experience No 03/30/25 10:02 fever (hyperthermia) with Relationship Recent Exposure to Contagious No 04/01/25 12:14 Disease Does patient have nerve No 03/30/25 10:02 stimulator Patient instructed to have device shut off --Does patient have Pacemaker No 04/01/25 12:14 or ICD? When Was Last Pacemaker Check QUESTION #4 FULL TEXT: You/Your Family Experience fever (hyperthermia) with Anesthesia Last Oral Intake Last Oral intake: Last Oral Intake NPO since 23:30 04/01/25 12:14 Meds taken in AM with sips of No 04/01/25 12:14 water? Meds patient instructed to take am of surgery PONV PONV - accounts collector: PONV - accounts collector Female No 03/30/25 10:02 HX of Motion Sickness No 03/30/25 10:02 HX of N/V After Surgery No 03/30/25 10:02 Non-Smoker Yes 03/30/25 10:02 Duration of Surgery greater No 03/30/25 10:02 than 60 minutes Number of Risk Factors 1 03/30/25 10:02 PONV Score Low Risk 03/30/25 10:02 Height & Weight Height & Weight: Anesthesia: Height & Weight Height 5 ft 6 in 04/01/25 12:14 Weight: 87 kg 04/01/25 12:14 Body Mass Index (BMI) 30.9 04/01/25 12:14 Respiratory Assessment Respiratory Assessment - accounts collector: Respiratory Tract Infection Hx - accounts collector Hx Respiratory Tract Infection No 03/30/25 10:02 STOP Sleep Apnea STOP Sleep Apnea - accounts collector: STOP Sleep Apnea - accounts collector Hx Hypertension No 03/30/25 10:02 Hx Sleep Apnea No 03/30/25 10:02 CPAP BIPAP Do you snore loudly (louder No 03/30/25 10:02 than talking or can be heard Do you often feel tired/ No 03/30/25 10:02 fatigued/ sleepy during daytime? Has anyone observed you stop No 03/30/25 10:02 breathing during sleep? STOP Results Negative 03/30/25 10:02 QUESTION #5 FULL TEXT : Do you snore loudly (louder than talking or can be heard through closed doors)? 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 Specify any problems Hx of Preganancy in last 3 N/A 03/30/25 10:02 Months Nurse Filling Out Transfusion MGRIFFITH 03/30/25 10:02 & Questions: Date: 03/30/25 03/30/25 10:02 Time: 10:04 03/30/25 10:02 Patient unable to answer at this time (ie. confused, unrespo /Reproduction History /Reproductive History - accounts collector: /Reproductive Hx- accounts collector Hx Now No 03/30/25 10:02 Gestational Age (in weeks): EDC: Hx Hx Para Hx Section SAB No 03/30/25 10:02 Active Medications Active Medications: Current Medications Generic Name Dose Route Start Last Admin Trade Name Freq PRN Reason Stop Dose Admin Lactated Ringer's 1,000 mls @ 15 mls/hr 04/01/25 12:30 04/01/25 12:19 IV 15 mls/hr .Q48H CAROLYN Administration PFSH Medical History Wears contact lenses Wears glasses Alcohol use Marijuana use Non-smoker Ileostomy present Home Medications ?Medication ?Instructions ?Recorded ?Last Taken ?Type cetirizine 10 mg tablet (24Hour 10 mg PO DAILY 5 Unknown History Allergy) Allergy/AdvReac Type Severity Reaction Status Date / Time No Known Allergies Allergy Verified 04/01/25 12:12 Surgical History H/O spinal fusion History of appendectomy History of reversal of ileostomy H/O colectomy Social History Smoking Status: Never smoker Review of Systems (Anesthesia) ROS Narrative System reviewed and no additional complaints, except as documented. 04/01/25 4975 <Electronically signed by Josiah ledesma MD> Date _ Josiah Blackwell MD Cosigner Signature: Date CC: ~ Signed [facility] Work Phone: [phone]) 102-331508-22-2025 Consult note [facility] Medical Records Department [address] [place] [address] Anesthesia Postop Eval I 04/01/25 1323 MR#: [id number] Acct: [id number] Name: EUNICE VARGAS Rep #:[id number] : 1985 39 From: Lul crenshaw [employer]KER PCP: Dr. Mallory Mckeon MD Status:REG SD C Y Race: C Location: [place] [address] Anesthesia: Postop Eval I Current Vital Signs Temperature: 97.9 F Pulse Rate: 98 Blood Pressure: 125/78 Respiratory Rate: 16 Pulse Ox: 98 Assessment Airway patent: Yes Spontaneous unlabored respirations: Yes nausea: No Vomiting: No Anesthesia Complication: No Fluid Hydration Crystalloid volume administer (ml): 300 Total IV fluid infused: 300 Progress Note Anesthesia document: Postop Eval 1 completed: Yes 04/01/25 1323 row [employer]KER> Date _ Lul Celestin [employer]ER Cosigner Signature: Date CC: ~ Signed [facility]08-22-2025 Procedure note [facility] Medical Records Department [address] [place] [address] EGD Report MR#: [id number] Acct: [id number] Name: EUNICE VARGAS Rep #:[id number] : 1985 39 From: Tom Campbell DO PCP: Dr. Mallory Mckeon MD Status:REG SD C Patient Name: Eunice Vargas Procedure Date: 04/01/2025 12:54 PM Date of : 1985 Age: 39 Procedure: Upper GI endoscopy Indications: Functional Dyspepsia, Suspected esophageal reflux Providers: Tom Campbell DO Referring MD: Mallory Mckeon Md Medicines: Monitored Anesthesia Care Patient Profile: This is a 39 year old male. Refer to note in patient chart for documentation of history and physical. Patient has symptoms of acute abdominal distention. Complications: No immediate complications. Procedure: Pre-Anesthesia Assessment: - Prior to the procedure, a History and Physical was performed, and patient medications and allergies were reviewed. The patient is competent. The risks and benefits of the procedure and the sedation options and risks were discussed with the patient. All questions were answered and informed consent was obtained. Patient identification and proposed procedure were verified by the physician. Mental Status Examination: alert and oriented. Airway Examination: normal oropharyngeal airway and neck mobility. Respiratory Examination: clear to auscultation. CV Examination: normal. Prophylactic Antibiotics: The patient does not require prophylactic antibiotics. Prior Anticoagulants: The patient has taken no anticoagulant or antiplatelet agents except for NSAID medication. ASA Grade Assessment: II - A patient with mild systemic disease. After reviewing the risks and benefits, the patient was deemed in satisfactory condition to undergo the procedure. The anesthesia plan was to use monitored anesthesia care (MAC). Immediately prior to administration of medications, the patient was re-assessed for adequacy to receive sedatives. The heart rate, respiratory rate, oxygen saturations, blood pressure, adequacy of pulmonary ventilation, and response to care were monitored throughout the procedure. The physical status of the patient was re-assessed after the procedure. After obtaining informed consent, the endoscope was passed under direct vision. Throughout the procedure, the patient's blood pressure, pulse, and oxygen saturations were monitored continuously. The Endoscope was introduced through the mouth, and advanced to the third part of the duodenum. Small bowel enteroscopy was deemed necessary. The upper GI endoscopy was accomplished without difficulty. The patient tolerated the procedure well. Scope In: 1:10:36 PM Scope Out: 1:14:47 PM Total Procedure Duration Time 0 hours 4 minutes 11 seconds Findings: LA Grade B (one or more mucosal breaks greater than 5 mm, not extending between the tops of two mucosal folds) esophagitis with no bleeding was found 36 to 40 cm from the incisors. Biopsies were taken with a cold forceps for histology. Verification of patient identification for the specimen was done. Estimated blood loss was minimal. Patchy mildly erythematous mucosa without bleeding was found in the gastric body. Biopsies were taken with a cold forceps for histology. Biopsies were taken with a cold forceps for Helicobacter pylori testing. Verification of patient identification for the specimen was done. Estimated blood loss was minimal. Suspect gastroparesis due to absence of peristalsis and patient symptoms. Patchy mildly erythematous mucosa without active bleeding and with no stigmata of bleeding was found in the entire duodenum. Biopsies were taken with a cold forceps for histology. Verification of patient identification for the specimen was done. Estimated blood loss was minimal. Impression: - LA Grade B reflux esophagitis with no bleeding. Biopsied. - Erythematous mucosa in the gastric body. Biopsied. - Gastroparesis. - Erythematous duodenopathy. Biopsied. Recommendation: - Discharge patient to home. - Resume previous diet. - Continue present medications. Procedure Code(s): --- Professional --- 05418, Small intestinal endoscopy, enteroscopy beyond second portion of duodenum, not including ileum; with biopsy, single or multiple CPT copyright 2021 [employer]. All rights reserved. The codes documented in this report are preliminary and upon public health training assistant review may be revised to meet current compliance requirements. Tom Campbell DO 04/01/2025 1:23:18 PM This report has been signed electronically. Number of Addenda: 0 Note Initiated On: 04/01/2025 12:54 PM 04/01/25 1323 Date _ Tom Langfordignalexa Signature: Date (if indicated) CC: Dr. Mallory Mckeon MD; Tom Campbell DO ~ Date Dictated: 04/01/25 1254 Date Transcribed: Healthcare Economics Consultant: RF Signed [facility]08-22-2025 Procedure note [facility] Medical Records Department [address] [place] [address] Provation Physician Letter MR#: [id number] Acct: [id number] Name: EUNICE VARGAS Rep #:[id number] : 1985 39 From: Tom Campbell DO PCP: Dr. Mallory Mckeon MD Status:REG SD C 04/01/2025 Mallory Mckeon Md Re : Upper GI endoscopy procedure for Eunice Vargas Dear Mike This procedure was performed on Tuesday, April 01, 2025. My impressions and recommendations are as follows: Impressions : - LA Grade B reflux esophagitis with no bleeding. Biopsied. - Erythematous mucosa in the gastric body. Biopsied. - Gastroparesis. - Erythematous duodenopathy. Biopsied. Recommendations : - Discharge patient to home. - Resume previous diet. - Continue present medications. My findings are described in the full procedure note, which is enclosed. If I can be of further assistance, please feel free to contact me at . Sincerely, Tom Campbell DO 04/01/2025 1:23:18 PM This report has been signed electronically. 04/01/25 1323 Date _ Tom Langfordignalexa Signature: Date (if indicated) CC: Dr. Mallory Mckeon MD; Tom Campbell DO ~ Date Dictated: 04/01/25 1254 Date Transcribed: Healthcare Economics Consultant: RF Signed [facility]08-22-2025 History and physical note [facility] Medical Records Department [address] [place] [address] History & Physical Exam 04/01/25 1302 MR#: [id number] Acct: [id number] Name: EUNICE VARGAS Rep #:[id number] : 1985 39 From: Tom Campbell DO PCP: Dr. Mallory Mckeon MD Status:REG SD C Location: [place] [address] HPI - General General Date of Admission: 04/01/25 Date of Service: 04/01/25 Chief Complaint: GERD and Abdominal pain HPI Narrative OV 08/18/2024 - Dr. 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 He eventually went and had a full colectomy for colonic inertia. He had a ileorectal anastomosis. He had been seeing surgery for intermittent abdominal pain in the hospital with intermittent small bowel obstruction. 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 Specifically the liver in the small bowel. He has been doing okay on a modified diet without any abdominal pain, cramping, nausea vomiting or diarrhea. After looking at the CAT scan of the abdomen pelvis it looks as if he does have a significant amount of rectum and some sigmoid colon. Patient is worried that ifhe has some rectum left that would increase his risk of problems in the future. He is having approximately 6-12 bowel movements a day. Recommendations: -workup for inflammatory bowel disease - Went over food allergies in great detail -We will do food elimation diet and follow up in 4months -Further recommendations to follow Labs completed 10/19/2024 reveal a normal CBC, liver panel, lipid panel and TSH. IBD serologies, serum copper, QuantiFERON, iron panel, and acute hepatitis panelwere unremarkable May 2024. CRP was previously elevated to 7.18 May 2024. Food allergen panel revealed allergy to corn, cows milk, peanut, pork, and wheat. CT prior node (1.5cm) on CT April 2024 - reports he is doing well - seen in office today with his mom - bowel movements are still diarrhea, has regular cramping - reports he tries to hydrate a lot - laugh or turning/twisting can cause abdominal cramping, can try to stretch it out on occasion - denies any HB, N/V - he is having 4-8 stools daily - he is not taking anything to slow down stools - reports bowel habits are low to mid in terms of daily lifestyle - he is following food allergies - the only food he has not fully removed is wheat - RLQ stabbing, burning pain, around area of prior incision - no change in pain with a BM - no change in pain with movement [facility] Medical History Wears contact lenses Wears glasses Alcohol use Marijuana use Non-smoker Ileostomy present Home Medications ?Medication ?Instructions ?Recorded ?Last Taken ?Type cetirizine 10 mg tablet (24Hour 10 mg PO DAILY 5 Unknown History Allergy) Allergy/AdvReac Type Severity Reaction Status Date / Time No Known Allergies Allergy Verified 04/01/25 12:12 Surgical History H/O spinal fusion History of appendectomy History of reversal of ileostomy H/O colectomy Social History Smoking Status: Never smoker ROS Constitutional Constitutional: Denies fatigue, fever(s), poor appetite, weight gain or weight loss Gastrointestinal Gastrointestinal: Denies belching, bloating, change in bowel habits, change in stool character, chewing difficulty, coffee ground emesis, constipation, cramping, diarrhea, dyspepsia, dysphagia, earlysatiety, excessive flatus, fecalincontinence, heartburn, hematemesis, hematochezia, hemorrhoids, loose stools, melena, nausea, odynophagia, rectal bleeding, tenesmus, vomiting or weight changes Vital Signs Vital Signs Vital Signs: 04/01/25 12:14 04/01/25 12:14 04/01/25 12:35 Temperature 98.2 F 98.2 F Temperature Source Temporal Pulse Rate 83 83 Respiratory Rate 16 16 Respiratory Pattern Normal Blood Pressure 137/89 H 137/89 H Blood Pressure Mean 105 Blood Pressure Source Monitor Blood Pressure Position Sitting Blood Pressure Location Left Arm Pulse Ox 99 99 Oxygen Delivery Method Room Air Room Air Weight Weight: 191 lb 12.835 oz Body Mass Index (BMI) 30.9 Physical Exam Const alert, oriented x3, no apparent distress and healthy appearing General Appearance: cooperative GI normal to inspection, nondistended, normoactive bowel sounds, soft to palpation,non-tender and non-distended Percussion: normal to percussion Rectal Exam: deferred Assessment & Plan Assessment/Plan (1) RLQ abdominal pain: (2) LUQ pain: PLAN: Assessment and Plan Assessment and Plan (1) Diarrhea: Status: Acute Qualifiers: Diarrhea type: unspecified type Qualified Code(s): R19.7 - Diarrhea, unspecified (2) Food allergy: Status: Acute (3) LUQ pain: Status: Acute (4) RLQ abdominal pain: Status: Acute Orders: Orders CRP 12/22/24 R10.12 - Left upper quadrant pain, R10.31 - Right lower quadrant pain, R19.7 - Diarrhea, unspecified, Z91.018 - Allergy to other foods t-Transglutaminase IgA 12/22/24 R10.12 - Left upper quadrant pain, R10.31 - Right lower quadrant pain, R19.7 - Diarrhea, unspecified, Z91.018 - Allergy to other foods Immunoglobulin A 12/22/24 R10.12 - Left upper quadrant pain, R10.31 - Right lower quadrant pain, R19.7 - Diarrhea, unspecified, Z91.018 - Allergy to other foods Abdomen/Pelvis WITH Contrast 12/22/24 R10.12 - Left upper quadrant pain, R10.31- Right lower quadrant pain, R19.7 - Diarrhea, unspecified, Z91.018 - Allergy toother foods CBC W/Diff, Automated 12/22/24 R10.12 - Left upper quadrant pain, R10.31 - Right lower quadrant pain, R19.7 - Diarrhea, unspecified, Z91.018 - Allergy to other foods Comprehensive Metabolic Profil 12/22/24 R10.12 - Left upper quadrant pain, R10.31 - Right lower quadrant pain, R19.7 - Diarrhea, unspecified, Z91.018 - Allergy to other foods Magnesium 12/22/24 R10.12 - Left upper quadrant pain, R10.31 - Right lower quadrant pain, R19.7 - Diarrhea, unspecified, Z91.018 - Allergy to other foods Referrals Allergy & Immunology R10.12 - Left upper quadrant pain, R10.31 - Right lower quadrant pain, R19.7 - Diarrhea, unspecified, Z91.018 - Allergy to other foods Plan 39-year-old male with a complex surgical history, including total colectomy withileorectal anastomosis following right hemicolectomy for sequelae of distention and ultimately total colectomy for colonic inertia. He presents today for follow-up, overall doing well with improved abdominal symptoms milton modified diet, though he continues to have loose stools (4-8 daily) consistent with his postsurgical anatomy. He reports chronic abdominal cramping, particularly stabbing and burning RLQ pain at the prior ostomy site, without clear relation to bowel movements or physical activity. He expresses concern regarding systemic inflammation from known food allergies (corn, cows milk, peanut, pork, and w heat) and the potential for future bowel complications. He reports he was previously informed-or itis his understanding-that food allergens identified onserum testing contributed to systemic inflammation resulting in colonic inertia. However, this connection is unlikely, as the accuracy and clinical relevance ofthe serum allergy testing he underwent remain uncertain. At this time, there isinsufficient evidence to directly link these food allergens to the etiology of his underlying motility disorder. He has eliminated some trigger foods, he is not fully avoiding all identified allergens. A CTscan from 04/30/2024 showed mesenteric lymphadenopathy (largest node 1.5 cm in the RLQ), and he alsoreportsa history of hiatal and ventral hernias, though prior imaging confirming this was not available in current records. To further evaluate his abdominal pain and rule out ongoing inflammation or structural issues, an EGD has also been scheduled given his surgical history and reported upper abdominal discomfort, although he denies current GERD symptoms, nausea, or vomiting. Stool studies including fecal calprotectin and cultures have been ordered, along with repeat labs (CBC, CMP, magnesium,CRP, TTG IgA, and total IgA). Given concerns for ongoing dietary triggers and systemic symptoms, the patient has been referred toallergist/studio operation engineer Dr. Idris Ghosh for review of prior serum allergen testing and management guidance. The role of magnesium supplementation was discussed; however, due to the potential for worsening diarrhea, he is advised to defer use at this time. He currently does not take antidiarrheals. Follow-up will be based on the results of labs, imaging, and EGD findings. Note: [employer] speech recognition elementary instructional coach software was used to create portions of this document. Sound-alike and misspelled words, as well as other elementary instructional coach errors may be contained in the documentation. Patient Instructions: GIPCR/Calprotectin/H. Pylori - [facility] EGD - LUQ pain ?HH CT CRP/Celiac serologies - will do in [address] Ghosh Follow-up in office after completion of testing and consult with Dr. Ghosh Plan Details Follow Up: 3 Months 04/01/25 1303 Cosigner Signature (if applicable): CC: Dr. Mallory Mckeon MD; Tom Campbell, ~ Signed [facility]08-22-2025 [facility] Medical Records Department [address] [place] [id number] History Physical Exam 04/01/25 1302 MR#: [id number] Acct: [id number] Name: EUNICE VARGAS Rep #: [id number] : 1985 39 From: Tom Campbell DO PCP: Dr. Mallory Mckeon MD Status:[facility] Location: [place] [address] HPI - General General Date of Admission: 04/01/25 Date of Service: 04/01/25 Chief Complaint: GERD and Abdominal pain HPI Narrative OV 08/18/2024 - Dr. 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 He eventually went and had a full colectomy for colonic inertia. He had a ileorectal anastomosis. He had been seeing surgery for intermittent abdominal pain in the hospital with intermittent small bowel obstruction. 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 Specifically the liver in the small bowel. He has been doing okay on a modified diet without any abdominal pain, cramping, nausea vomiting or diarrhea. After looking at the CAT scan of the abdomen pelvis it looks as if he does have a significant amount of rectum and some sigmoid colon. Patient is worried that if he has some rectum left that would increase his risk of problems in the future. He is having approximately 6-12 bowel movements a day. Recommendations: -workup for inflammatory bowel disease - Went over food allergies in great detail -We will do food elimation diet and follow up in 4months -Further recommendations to follow Labs completed 10/19/2024 reveal a normal CBC, liver panel, lipid panel and TSH. IBD serologies, serum copper, QuantiFERON, iron panel, and acute hepatitis panel were unremarkable May 2024. CRP was previously elevated to 7.18 May 2024. Food allergen panel revealed allergy to corn, cows milk, peanut, pork, and wheat. CT prior node (1.5cm) on CT April 2024 - reports he is doing well - seen in office today with his mom - bowel movements are still diarrhea, has regular cramping - reports he tries to hydrate a lot - laugh or turning/twisting can cause abdominal cramping, can try to stretch it out on occasion - denies any HB, N/V - he is having 4-8 stools daily - he is not taking anything to slow down stools - reports bowel habits are low to mid in terms of daily lifestyle - he is following food allergies - the only food he has not fully removed is wheat - RLQ stabbing, burning pain, around area of prior incision - no change in pain with a BM - no change in pain with movement [facility] Medical History Wears contact lenses Wears glasses Alcohol use Marijuana use Non-smoker Ileostomy present Home Medications ???Medication ???Instructions ???Recorded ???Last Taken ???Type cetirizine 10 mg tablet (24Hour 10 mg PO DAILY 03/30/25 Unknown Hi story Allergy) Allergy/AdvReac Type Severity Reaction Status Date / Time No Known Allergies Allergy Verified 04/01/25 12:12 Surgical History H/O spinal fusion History of appendectomy History of reversal of ileostomy H/O colectomy Social History Smoking Status: Never smoker ROS Constitutional Constitutional: Denies fatigue, fever(s), poor appetite, weight gain or weight loss Gastrointestinal Gastrointestinal: Denies belching, bloating, change in bowel habits, change in stool character, chewing difficulty, coffee ground emesis, constipation, cramping, diarrhea, dyspepsia, dysphagia, early satiety, excessive flatus, fecal incontinence, heartburn, hematemesis, hematochezia, hemorrhoids, loose stools, melena, nausea, odynophagia, rectal bleeding, tenesmus, vomiting or weight changes Vital Signs Vital Signs Vital Signs: 04/01/25 12:14 04/01/25 12:14 04/01/25 12:35 Temperature 98.2 F 98.2 F Temperature Source Temporal Pulse Rate 83 83 Respiratory Rate 16 16 Respiratory Pattern Normal Blood Pressure 137/89 H 137/89 H Blood Pressure Mean 105 Blood Pressure Source Monitor Blood Pressure Position Sitting Blood Pressure Location Left Arm Pulse Ox 99 99 Oxygen Delivery Method Room Air Room Air Weight Weight: 191 lb 12.835 oz Body Mass Index (BMI) 30.9 Physical Exam Const alert, oriented x3, no apparent distress and healthy appearing General Appearance: cooperative GI normal to inspection, nondistended, normoactive bowel sounds, soft to palpation, non-tender and non- distended Percussion: normal to percussion Rectal Exam: (more content not included)...[facility]08-22-2025 Consult note [facility] Medical Records Department [address] [place] [address] Pre-Anesthesia Evaluation 04/01/25 1227 MR#: [id number] Acct: [id number] Name: EUNICE VARGAS Rep #:[id number] : 1985 39 From: Josiah Blackwell MD PCP: Dr. Mallory Mckeon MD Status:REG SD C Y Race: C Location: [place] [address]1 ASA Classification* ASA Classification ASA Classification: 2 Assessment & Plan Anesthesia* Anesthesia Assessment Anesthesia Assessment: Discussed sedation and/or anesthesia options, risks, benefits, and alternatives with patient/parents/legal guardian/POA. Questions invited. The patient/parents/legal guardian/POA seems to understand and agrees to proceedwith anesthesia plan. Reviewed the physical assessment, medical history, allergy history and patient home medications list prior to surgery/procedure/anesthetic and documented any changes. Performed airway and anesthesia risk assessments. Anesthesia Type Anesthesia Type: MAC History Source History Obtained from:: Patient and Chart Anesthesia Focused Assessment* Temperature: 98.2 F Pulse Rate: 83 Blood Pressure: 137/89 Respiratory Rate: 16 Pulse Ox: 99 Oxygen Delivery Method: Room Air Airway Assessment Mouth opens: >3 cm Mallampati Score: III Teeth Condition: Intact Neck Range of motion (ROM): Full ROM Labs Anesthesia Preop lab: CBC WBC 5.4 K/mm3 (4.4-11.0) 10/19/24 10:20 10/19/24 RBC 5.01 M/mm3 (4.6-6.2) 10/19/24 10:20 10/19/24 Hgb 15.2 g/dL (13.0-16.5) 10/19/24 10:20 10/19/24 Hct 44.4 % (40-54) 10/19/24 10:20 10/19/24 Plt Count 261 K/mm3 (150-450) 10/19/24 10:20 10/19/24 CHEMISTRY Potassium 4.4 mmol/L (3.3-5.1) 10/19/24 10:20 10/19/24 Sodium 137 mmol/L (133-145) 10/19/24 10:20 10/19/24 BUN 12 mg/dL (4-19) 10/19/24 10:20 10/19/24 Creatinine 0.86 mg/dL (0.70-1.20) 10/19/24 10:20 10/19/24 Glucose 93 mg/dL (70-99) 10/19/24 10:20 10/19/24 TSH 3.810 uIU/mL (0.300-4.200) 10/19/24 10:20 10/09 09/04 COAG Pre-Assessment Diagnosis/Proposed Procedure Planned Operative Procedure(s): EGD Anesthesia History Anesthesia History - accounts collector: Anesthesia History - accounts collector Hx Hospitalization No 03/30/25 10:02 Any Problems With Anesthesia No 03/30/25 10:02 Cholinesterase deficiency No 03/30/25 10:02 You/Your Family Experience No 03/30/25 10:02 fever (hyperthermia) with Relationship Recent Exposure to Contagious No 04/01/25 12:14 Disease Does patient have nerve No 03/30/25 10:02 stimulator Patient instructed to have device shut off --Does patient have Pacemaker No 04/01/25 12:14 or ICD? When Was Last Pacemaker Check QUESTION #4 FULL TEXT: You/Your Family Experience fever (hyperthermia) with Anesthesia Last Oral Intake Last Oral intake: Last Oral Intake NPO since 23:30 04/01/25 12:14 Meds taken in AM with sips of No 04/01/25 12:14 water? Meds patient instructed to take am of surgery PONV PONV - accounts collector: PONV - accounts collector Female No 03/30/25 10:02 HX of Motion Sickness No 03/30/25 10:02 HX of N/V After Surgery No 03/30/25 10:02 Non-Smoker Yes 03/30/25 10:02 Duration of Surgery greater No 03/30/25 10:02 than 60 minutes Number of Risk Factors 1 03/30/25 10:02 PONV Score Low Risk 03/30/25 10:02 Height & Weight Height & Weight: Anesthesia: Height & Weight Height 5 ft 6 in 04/01/25 12:14 Weight: 87 kg 04/01/25 12:14 Body Mass Index (BMI) 30.9 04/01/25 12:14 Respiratory Assessment Respiratory Assessment - accounts collector: Respiratory Tract Infection Hx - accounts collector Hx Respiratory Tract Infection No 03/30/25 10:02 STOP Sleep Apnea STOP Sleep Apnea - accounts collector: STOP Sleep Apnea - accounts collector Hx Hypertension No 03/30/25 10:02 Hx Sleep Apnea No 03/30/25 10:02 CPAP BIPAP Do you snore loudly (louder No 03/30/25 10:02 than talking or can be heard Do you often feel tired/ No 03/30/25 10:02 fatigued/ sleepy during daytime? Has anyone observed you stop No 03/30/25 10:02 breathing during sleep? STOP Results Negative 03/30/25 10:02 QUESTION #5 FULL TEXT : Do you snore loudly (louder than talking or can be heard through closeddoors)? 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 Specify any problems Hx of Preganancy in last 3 N/A 03/30/25 10:02 Months Nurse Filling Out Transfusion MGRIFFITH 03/30/25 10:02 & Questions: Date: 03/30/25 03/30/25 10:02 Time: 10:04 03/30/25 10:02 Patient unable to answer at this time (ie. confused, unrespo /Reproduction History /Reproductive History - accounts collector: /Reproductive Hx- accounts collector Hx Now No 03/30/25 10:02 Gestational Age (in weeks): EDC: Hx Hx Para Hx Section SAB No 03/30/25 10:02 Active Medications Active Medications: Current Medications Generic Name Dose Route Start Last Admin Trade Name Freq PRN Reason Stop Dose Admin Lactated Ringer's 1,000 mls @ 15 mls/hr 04/01/25 12:30 04/01/25 12:19 IV 15 mls/hr .Q48H CAROLYN Administration PFSH Medical History Wears contact lenses Wears glasses Alcohol use Marijuana use Non-smoker Ileostomy present Home Medications ?Medication ?Instructions ?Recorded ?Last Taken ?Type cetirizine 10 mg tablet (24Hour 10 mg PO DAILY 5 Unknown History Allergy) Allergy/AdvReac Type Severity Reaction Status Date / Time No Known Allergies Allergy Verified 04/01/25 12:12 Surgical History H/O spinal fusion History of appendectomy History of reversal of ileostomy H/O colectomy Social History Smoking Status: Never smoker Review of Systems (Anesthesia) ROS Narrative System reviewed and no additional complaints, except as documented. 04/01/25 1235 callie DALEY> Date _ Josiah Blackwell MD Cosigner Signature: Date CC: ~ Signed [facility]06-10-2025 Radiology Diagnostic study note [facility] Imaging Services [address] [place] [id number] Abdomen/Pelvis WITH Contrast MR#: [id number] Acct: [id number] Name: EUNICE VARGAS Rep #: [id number] : 1985 M 39 From: Estefany Santiago MD PCP: Dr. Mallory Mckeon MD Status: REG CL I Study:Abdomen/Pelvis WITH Contrast Date of Ex am: 01/17/25 Exam# [id number] Ordering Dr: Zhane Hollis SALES SECRETARY-Isabel PROCEDURE: ABDOMEN/PELVIS WITH CONTRAST 01/17/2025 REASON FOR EXAM: LUQ PAIN, RLQ PAIN, 1.5CM RLQ NODE ON 04/2024 CT TECHNIQUE: Abdomen and pelvis CT with intravenous contrast. Coronal and Sagittal reconstruction series were provided. PATIENT PREPARATION: Per protocol ORAL CONTRAST TYPE: Patient ingested oral contrast. CONTRAST: Isovue-350. VOLUME: 100 mL One or more dose reduction techniques were used (e.g., Automated exposure control, adjustment of the mA and/or kV according to patient size, use of iterative reconstruction technique. RADIATION DOSE SUMMARY: CTDlvol: 18.05 mGy DLP: 1039 mGycm COMPARISON: 04/20/2024. FINDINGS: Unchanged liver which is located along the midline and toward the left side of the midline. Normal gallbladder and extrahepatic biliary system. Normal spleen. Normal pancreas. Normal bilateral adrenal glands. Normal right kidney. Normal left kidney. Normal visualized stomach. 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 Fluid-filled slightly dilated small bowel loops are seen in the right side of the abdomen. This is stable in appearance. Numerous small lymph nodes are seen within the root of the mesentery on the right side with the largest in the right lower quadrant measuring 1.5 cm, unchanged. Surgical anastomosis seen in the region of the sigmoid. The appendix is visualized and appears normal. Normal abdominal aorta. Normal inferior vena cava. Normal retroperitoneum. Normal urinary bladder. Normal abdominal wall. There is evidence of prior interpedicular screw and william fixation at the L4-L5 level. CT/Abdomen/Pelvis WITH Contrast IMPRESSION: Numerous small lymph nodes are again seen within the root of the mesentery on the right side with the largest in the right lower quadrant measuring 1.5 cm, unchanged in size and appearance. No interval change is noted. Reading Location: [place] [address] CC: PERLA Hollis; Dr. Mallory Mckeon MD ~ Healthcare Economics Consultant: Signed [facility]05-14-2025 Evaluation note* Diagnosis Onset Date Resolution Status Admit Date Diarrhea acute December 22, 2024 7:47am Food allergy acute December 22 7:47am LUQ pain acute December 22, 2024 7:47am RLQ abdominal pain acute December 222024 7:47am [facility] Work Phone: 1(465) 685-616105-14-2025 Evaluation note* Diagnosis Onset Date Resolution Status Admit Date Diarrhea acute December 22, 2024 7:47am Food allergy acute December 22 7:47am LUQ pain acute December 22, 2024 7:47am RLQ abdominal pain acute December 222024 7:47am LUQ pain acute April 01 11:51am RLQ abdominal pain acute April 01, 2025 11:51am [facility] Work Phone: 1(798) 338-989801-08-2025 Evaluation note* Diagnosis Onset Date Resolution Status Admit Date Diarrhea acute August 18 8:47am Food allergy acute August 18, 2024 8:47am Hepatomegaly acute August 18, 2024 8:47am [facility] Work Phone: 1(500) 437-130012-05-2024 NoteHNO ID: [id number] Author: MADI BARFIELD MD Service: ? Author Type: Physician Type: Progress Notes Filed: 07/15/2024 08:35 Note Text: Patient presents with: Cough: Chest congestion, sinus congestion, increasing x 4 days HPI: Feeling sick for 4 days. His daughter is sick now also. 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 No current facility-administered medications for this visit. ALLERGIES: ALLERGIES Allergen Reactions Adhesive Other: See Comments Large blisters VITALS: BP 111/74 Pulse 67 Temp 36.2 ?C (97.1 ?F) Resp 20 Wt 84.3 kg (185 lb 13.6 oz) SpO2 99% BMI 30.00 kg/m? PHYSICAL EXAM: GEN: mildly ill appearing HEENT: PERRL, EOMI, conjunctiva clear Ears: canals clear. TMs without erythema, bulge, or effusion Sinuses: non-tender frontal sinus, non-tender maxillary sinuses Throat: moist mucous membranes, mild erythema, no exudate Neck: supple, no thyromegaly, no lymphadenopathy HEART: regular rate and rhythm, no murmurs LUNGS: clear to auscultation, no wheezes or crackles, no increased WOB ASSESSMENT/PLAN: 1. URI, acute - ICD9: 465.9, ICD10: J06.9 - suspect viral URI - Discussed supportive care treatment with rest, cold medicine, and analgesia. Follow up with worsening cough, worsening shortness of breath, increasing chest pain, or late onset fever. Madi Barfield, [facility]12-05-2024 History of Present illness Narrative* Madi Barfield MD - 07/15/2024 8:21 AM EST Patient presents with: Cough: Chest congestion, sinus congestion, increasing x 4 days HPI: Feeling sick for 4 days. His daughter is sick now also. 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 No current facility-administered medications for this visit. ALLERGIES: ALLERGIES Allergen Reactions Adhesive Other: See Comments Large blisters VITALS: BP 111/74 Pulse 67 Temp 36.2 C (97.1 F) Resp 20 Wt 84.3 kg (185 lb 13.6 oz) SpO2 99% BMI 30.00 kg/m PHYSICAL EXAM: GEN: mildly ill appearing HEENT: PERRL, EOMI, conjunctiva clear Ears: canals clear. TMs without erythema, bulge, or effusion Sinuses: non-tender frontal sinus, non-tender maxillary sinuses Throat: moist mucous membranes, mild erythema, no exudate Neck: supple, no thyromegaly, no lymphadenopathy HEART: regular rate and rhythm, no murmurs LUNGS: clear to auscultation, no wheezes or crackles, no increased WOB ASSESSMENT/PLAN: 1. URI, acute - ICD9: 465.9, ICD10: J06.9 - suspect viral URI - Discussed supportive care treatment with rest, cold medicine, and analgesia. Follow up with worsening cough, worsening shortness of breath, increasing chest pain, or late onsetfever. Madi Barfield MD documented [facility] encounterC[facility] Telephone encounter Note * Telephone Encounter - Caroline Mars MA - 04/29/2024 12:38 PM EDT This has been faxed as requested. Caroline Mars MA [facility]09-19-2024 Miscellaneous Notes* Telephone Encounter - Caroline Mars MA - 04/29/2024 12:38 PM EDT This has been faxed as requested. Caroline Mars MA * Telephone Encounter - Jesus Raza APRN.CNP - 04/29/2024 8:48 AM EDT Please fax consult to Dr. Campbell. documented in this encounterC[facility]09-[facility]-2024 Telephone encounter Note * Telephone Encounter - Caroline Mars MA - 04/29/2024 10:48 AM EDT Referral paperwork has been faxed to Dr. Campbell's office at [phone]. Caroline Mars MA [facility]09-19-[facility] Miscellaneous Notes* Telephone Encounter - Caroline Mars MA - 04/29/2024 10:48 AM EDT Referral paperwork has been faxed to Dr. Campbell's office at [phone]. Caroline Mars MA * Telephone Encounter - Jesus Raza APRN.FINANCE EXECUTIVE - 04/29/2024 8:47 AM EDT Please fax order to [facility]. * Telephone Encounter - Aydin José LPN - 04/28/2024 7:07 PM EDT Consult GI pending. Aydin José LPN documented in this encounterC[facility]09-[facility]-2024 Telephone encounter Note * Telephone Encounter - Jesus Raza APRN.CNP - 04/29/2024 8:48 AM EDT Please fax consult to Dr. Campbell. [facility]09-[facility] Telephone encounter Note* Telephone Encounter - Jesus Raza APRN.CNP - 04/29/2024 8:47 AM EDT Please fax order to [facility]. [facility]09-18-[facility] Telephone encounter Note* Telephone Encounter - Aydin José LPN - 04/28/2024 7:07 PM EDT Consult GI pending. Aydin José LPN [facility]09-10-2024 Telephone encounter Note* Telephone Encounter - Vilma Christianson MA - 04/20/2024 3:16 PM EDT Pt notified and voiced understanding. Vilma Christianson MA [facility]09-10-2024 Miscellaneous Notes* Telephone Encounter - Vilma Christianson MA - 04/20/2024 3:16 PM EDT Pt notified and voiced understanding. Vilam Christianson MA * Telephone Encounter - Jesus Raza APRN.CNP - 04/20/2024 3:05 PM EDT Please let patient know his CT shows malrotation of the bowel in the right abdomen. Patient should proceed to ER as he will likely need evaluation by surgery. * Telephone Encounter - Caroline Mars MA - 04/20/2024 2:16 PM EDT Pt completed CT Abd/Pelv at [facility]. This has been scanned into pt's chart. Please review and advise. Caroline Mars MA documented in this encounterC[facility]09-10-2024 Telephone encounter Note * Telephone Encounter - Jesus Raza APRN.CNP - 04/20/2024 3:05 PM EDT Please let patient know his CT shows malrotation of the bowel in the right abdomen. Patient should proceed to ER as he will likely need evaluation by surgery. [facility] Telephone encounter Note* Telephone Encounter - Caroline Mars MA - 04/20/2024 2:16 PM EDT Pt completed CT Abd/Pelv at [facility]. This has been scanned into pt's chart. Please review and advise. Caroline Mars MA [facility]09-10-[facility]24 History of Present illness Narrative* Jesus Raza APRN.FINANCE EXECUTIVE - 04/20/2024 8:04 AM EDT Chief Complaint Patient presents with: Abdominal Pain: X 1 week HPI Eunice Vargas is a 38 year old male who presents here today for Above Complaints.. Patient presents for abdominal discomfort x 1 week. Reports decreased appetite, nausea, ad no BM for 2 days. Patient denies fever, vomiting, pain more a tight full feeling. Denies new meds, supplements. Past medical history, appointments, medications, allergies reviewed. Previous Medical History PAST MEDICAL HISTORY No date: ADHD (attention deficit hyperactivity disorder) No date: Colon immotility Comment: colon inertia per pt No date: Colonic inertia 2021: Ileostomy in place (HCC) Comment: Reversed 2022 No date: Lumbar disc herniation with radiculopathy 09/26/2022: Sigmoidoscopy performed Previous Surgical History PAST SURGICAL HISTORY 05/14/2021: APPENDECTOMY Comment: w/ 2/3rd of colon removed at same time 11/26/2022: CLOSURE ENTEROSTOMY LG/SMALL INTESTINE Comment: Dr. Le 05/25/2021: COLONSCOPY SCREENING HIGH RISK No date: DENTAL SURGERY PROCEDURE Comment: wisdom teeth 11/10/2021: LAPAROSCOPIC HEMICOLECTOMY Comment: Dr. Le 2019: LUMBAR SPINE FUSN,POST TECH Comment: lumbar spine fusion 12/05/2021: PAST SURGICAL HISTORY OF; Right Comment: VENTRAL HERNIA REPAIR - General, scar excision,OPEN COMPLETION COLECTOMY, WITH EXTENSIVE LYSIS OF ADHESIONS over 60 minutes, diverting loop ileostomy 05/2021: PAST SURGICAL HISTORY OF Comment: right hemicolectomy 05/30/2021: PEG INSERTION_*FL Comment: PEG tube placed Family History FAMILY HISTORY Problem Relation Age of Onset None Mother Diabetes Father Multiple Sclerosis Maternal Grandmother other (Other macular degeneration) Maternal Grandfather Patient Allergies ALLERGIES Allergen Reactions Adhesive Other: See Comments Large blisters Current Medications No current outpatient medications on file prior to visit. No current facility-administered medications on file prior to visit. Social History Social History Tobacco Use Smoking status: Never Smokeless tobacco: Never Tobacco comments: cigar 2 - 3 x yearly Vaping Use Vaping status: Never Used Substance Use Topics Alcohol use: Yes Comment: 2-3x/week Drug use: Never Review of Symptoms REVIEW OF SYSTEMS SEE HPI EXAM: BP 124/82 Pulse 73 Resp 14 Wt 81.6 kg (180 lb) BMI 29.05 kg/m General Appearance: Well appearing, alert, in no acute distress, well-hydrated, well nourished.. Abdomen: Negative findings: no masses palpable, no organomegaly, and soft, non- tender, Positive findings: hyperactive bowel sounds to upper quadrants. Health Maintenance List Depression Screening Never done Anxiety Screening Never done Hepatitis C Screening Never done HIV Screening Never done Covid-19 Vaccine( - season) due on 04/11/2024 Influenza Vaccine(1) due on 04/11/2024 DTaP,Tdap,Td Vaccine(4 - Td or Tdap) due on 03/03/2028 Lipid Screening due on 09/26/2028 Hepatitis B Vaccine Completed HPV Vaccine Aged Out ASSESSMENT/PLAN: 1. Nausea - ICD9: 787.02, ICD10: R11.0 (primary diagnosis) - CT ABD/PEL W IVCON - IV CONTRAST (RADIOLOGY PROCEDURE) - ENTERIC CONTRAST (RADIOLOGY PROCEDURE) 2. Colonic inertia - ICD9: 564.89, ICD10: K59.9 - CT ABD/PEL W IVCON - IV CONTRAST (RADIOLOGY PROCEDURE) - ENTERIC CONTRAST (RADIOLOGY PROCEDURE) 3. Ileus following gastrointestinal surgery (HCC) - ICD9: 997.49, 560.1, ICD10: K91.89, K56.7 - CT ABD/PEL W IVCON - IV CONTRAST (RADIOLOGY PROCEDURE) - ENTERIC CONTRAST (RADIOLOGY PROCEDURE) 4. Generalized abdominal pain - ICD9: 789.07, ICD10: R10.84 - Work up with CT Abdomen/Pelvis - CT ABD/PEL W IVCON - IV CONTRAST (RADIOLOGY PROCEDURE) - ENTERIC CONTRAST (RADIOLOGY PROCEDURE) 5. Colon stricture (HCC) - ICD9: 560.9, ICD10: K56.699 - CT ABD/PEL W IVCON - IV CONTRAST (RADIOLOGY PROCEDURE) - ENTERIC CONTRAST (RADIOLOGY PROCEDURE) Jesus Raza APRN.FINANCE EXECUTIVE documented in this encounterC[facility]02-19-2024 Miscellaneous Notes* Telephone Encounter - Susana Rachel Cma - 09/29/2023 10:27 AM EST [employer] message sent to patient Susana Rachel Cma * Telephone Encounter - Jesus Raza APRN.CNP - 09/29/2023 10:16 AM EST Please let patient know their labs are normal. documented in this encounterC[facility]02-16-2024 History of Present illness Narrative* Jesus Raza APRN.CNP - 09/26/2023 9:07 AM EST Chief Complaint Patient presents with: [facility] HPI Eunice Vargas is a 37 year old male who presents here today for Above Complaints.. Patient [facility]. Past medical history, appointments, medications, allergies reviewed. 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 in place (HCC) 2021 Lumbar disc herniation with radiculopathy Sigmoidoscopy performed 09/26/2022 Previous Surgical History PAST SURGICAL HISTORY Procedure Laterality Date APPENDECTOMY [...] hemicolectomy PEG INSERTION_*FL 05/30/2021 PEG tube placed Family History FAMILY HISTORY Problem Relation Age of Onset None Mother Diabetes Father Multiple Sclerosis Maternal Grandmother other (Other macular degeneration) Maternal Grandfather Patient Allergies ALLERGIES Allergen Reactions Adhesive Other: See Comments Large blisters Current Medications Current Outpatient Medications on File Prior to Visit Medication Sig predniSONE (DELTASONE) 10 mg tablet Take 4 tabs daily for 3 days, then 2 tabs daily for 3 days, then 1 tab daily for 3 days with food. No current facility-administered medications on file prior to visit. Social History Social History Tobacco Use Smoking status: Never Smokeless tobacco: Never Tobacco comments: cigar 2 - 3 x yearly Vaping Use Vaping Use: Never used Substance Use Topics Alcohol use: Yes Comment: 2-3x/week Drug use: Never Review of Symptoms REVIEW OF SYSTEMS GENERAL: No weight loss, malaise or fevers HEENT: No changes in hearing or vision, no nose bleeds or other nasal problems NECK: Negative for lumps, goiter, pain and significant neck swelling RESPIRATORY: Negative for cough, hemoptysis, wheezing, COPD, dyspnea or shortness of breath CARDIOVASCULAR: Negative for chest pain, leg swelling, hypertension, CHF or palpitations GI: No nausea, vomiting, or diarrhea and Positive for diarrhea chronic, hx colectomy : No history of dysuria, frequency or incontinence MUSCULOSKELETAL: Negative for joint pain or swelling, back pain or muscle pain SKIN: Negative for lesions, rash, and itching PSYCH: Negative for sleep disturbance, mood disorder and recent psychosocial stressors HEMATOLOGY/LYMPHOLOGY: Negative for prolonged bleeding, bruising easily or swollen nodes ENDOCRINE: Negative for cold or heat intolerance, polyuria, polydipsia and goiter NEURO: No history of headaches, syncope, paralysis, seizures or tremors EXAM: BP 112/74 Pulse 80 Resp 14 Wt 80.3 kg (177 lb) BMI 28.57 kg/m General Appearance: Well appearing, alert, in no acute distress, well-hydrated, well nourished.. Skin: Skin color, texture, turgor normal, no suspicious rashes or lesions. Neck: Supple, no adenopathy; thyroid symmetric, normal size, no bruits. Lungs: Lungs clear to auscultation. No wheezing, rhonchi, rales.. Heart: RRR without murmur, gallop, or rubs. No ectopy. Abdomen: Normal abdominal exam, Abdomen soft, non-tender. Bowel sounds normal. No masses, organomegaly Musculoskeletal: No joint swelling, deformity, or tenderness. Peripheral Pulses: Normal. Neurologic: Gait normal. Reflexes normal and symmetric. Sensation grossly intact.. Health Maintenance List Hepatitis C Screening Never done HIV Screening [facility] due on 04/11/2023 Depression Assessment due on 08/11/2023 Influenza Vaccine(1) due on 02/08/2024 Lipid Screening due on 08/22/2027 DTaP,Tdap,Td Vaccine(4 - Td or Tdap) due on 03/03/2028 Hepatitis B Vaccine Completed HPV Vaccine Aged Out ASSESSMENT/PLAN: 1. Screening for lipid disorders - ICD9: V77.91, ICD10: Z13.220 (primary diagnosis)\ - LIPID PANEL, NONFASTING 2. Wellness examination - ICD9: V70.0, ICD10: Z00.00 - Counseled on healthy diet and regular exercise - Discussed need for and benefit of weight loss. BMI 28.57 kg/(m^2) - Depression screening tool completed and reviewed with patient. Based on score and interview, patient is not at risk for depression and recommended no further intervention at this time. - Follow up for annual exam in one year - CBC + DIFF - COMP METABOLIC PANEL 3. Screening for diabetes mellitus - ICD9: V77.1, ICD10: Z13.1 - HGB A1C 4. Colonic inertia - ICD9: 564.89, ICD10: K59.9 -Hx of ileostomy, had reversed. Jesus Raza APRN.CNP documented in this encounterC[facility]12-07-2023 History of Present illness Narrative* Santa Rascon APRN.CNP - 07/17/2023 5:00 PM EST This note was created using NoteWriter. Subjective [...] history is provided by the patient. No speech language assistant was used. Cough This is a new [...] Wt 81 kg (178 lb 9.6 oz) [id number]% BMI 28.83 kg/m Physical Exam Vitals and [...] and Doxy F/U for persistent symptoms. Santa Rascon APRN.FINANCE EXECUTIVE documented in this encounterCleveland Clinic [facility]09-12-2023 NoteHNO ID: [id number] Author: Rolando Eugene DO Service: ? Author Type: Physician Type: Progress Notes Filed: 04/22/2023 11:06 AM Note Text: Rolando Eugene DO [facility] - Orthopedic Spine Surgeon [address] [facility], [facility] [address] [place], [place] [id number] Phone: [phone] ([phone] FAX: [phone] SPINE SURGERY OUTPATIENT CONSULT SERVICE DATE: 04/16/2023 [...] him the most. He had participated in weekend caregiver with no relief. His lumbar x-rays at [...] much today. PREVIOUS CONSERVATIVE TREATMENTS: Prednisone Flexeril career development coordinator/teacher x2 PREVIOUS SURGERY: SURGERY #1: L4-5 TLIF with PSF on 07/19/[address] 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 Rolando Eugene DO [facility] - Orthopedic Spine Surgeon [address], [facility] [address] [address] [facility] [place] [address] Phone: [phone] ([phone] FAX: [phone] SPINE SURGERY OUTPATIENT CONSULT SERVICE DATE: 04/16/2023 [...] him the most. He had participated in weekend caregiver with no relief. His lumbar x-rays at this visit showed hardware in stable position. He was asked to obtain MRI of the lumbar spine and follow up upon completion, promptinghis visit today. He states that his symptoms are the same. States that he still has left leg numbness and tingling. States that it does not bother him that much today. PREVIOUS CONSERVATIVE TREATMENTS: Prednisone Flexeril career development coordinator/teacher x2 PREVIOUS SURGERY: SURGERY #1: L4-5 TLIF with PSF on 07/19/[address] 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 He will call me if he develops any new symptoms. He will follow-up as needed. The following portions of the patient's history were reviewed, confirmed, and updated as necessary:allergies, current medications, past family history, past medical history, past social history, past surgical history, problem list, HPI, and ROS obtained by others. Some elements may be copied from a previous office note and have been reviewed/updated where appropriate. All portions reflect current medical decision making from today. The clinical and radiographic findings as well as the risks, benefits and alternatives of treatmenthave been reviewed in detail with the patient. Advised to call the office if symptoms worsen or new symptoms develop. Patient expressed understanding and is in agreement with plan. Rolando Eugene DO This note was partially generated using [employer] voice recognition system, and there may be some incorrect words, spellings, and punctuation that were not noted in checking the note before saving. documented in this encounterCleveland Clinic [facility]09-11-2023 History of Present illness Narrative* Tamara White RT(Lisa) - 04/21/2023 3:00 PM EDT Radiology Service Progress Note PATIENT NAME: Eunice Vargas DATE OF SERVICE: April 21, 2023 TIME: 3:14 PM PATIENT IDENTITY VERIFICATION COMPLETED USING TWO (2) IDENTIFIERS: Name and Date of confirmedby patient verbally. FALL SCREENING: Has the patient had 2 falls in the last year or 1 fall with injury or currently using an Ambulatory Assistive Device (Walker, Cane, Wheelchair, Crutches, etc.)? No PATIENT GENDER DATA: Male PATIENT RELEVANT IMPLANT DATA REVIEWED: Yes RADIOLOGY DEPARTMENT: MR; Exam(s) Completed: Spine: Lumbar spine PERIPHERAL IV DATA: Not applicable SIGNED BY: RT Yesica(Lisa) April 21, 2023 3:14 PM documented in this encounterCleveland Clinic Mary[facility]08-24-2023 Miscellaneous Notes* Telephone Encounter - Robyn Richter - 04/03/2023 3:49 PM EDT Pt informed, verbalized understanding Robyn Richter * Telephone Encounter - Deanna Resendiz APRN.CNP - 04/03/2023 3:13 PM EDT Unfortunately, our pcp team is not accepting any new patients. We apologize for the inconvenience. Thank you, Deanna Resendiz APRN.ANDREW * Telephone Encounter - Kenny Box - 03/13/2023 10:04 AM EDT Pt's mother called checking status of previous request to have her son and [id number] be seen by Dr. Coley * Telephone Encounter - Kimberli Carroll - 03/04/2023 9:56 AM EDT Patient calling stating Dr. Coley spoke with his mother Marissa Noble #[phone] stating that Dr. Coley will see patent an dhis Santa Vargas #[id number]. Please advise. documented in this encounterCleveland Clinic Mary[facility]08-08-2023 NoteHNO ID: [id number] Author: Rolando Eugene, DO Service: ? Author Type: Physician Type: Progress Notes Filed: 03/18/2023 1:43 PM Note Text: Rolando Eugene, [facility] - Orthopedic Spine Surgeon 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 MUSCLE (more content not included)...[facility]08-08-2023 History of Present illness Narrative* Rolando Eugene DO - 03/18/2023 1:00 PM EDT Images from the original note were not included. Rolando Eugene DO [facility] Orthoped[facility] - Orthopedic Spine Surgeon 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 He has tried weekend caregiver without any improvement. Recommend an MRI of the lumbar spine. He will follow-up me once the MRI is completed. The following portions of the patient's history were reviewed, confirmed, and updated as necessary:allergies, current medications, past family history, past medical history, past social history, past surgical history, problem list, HPI, and ROS obtained by others. Some elements may be copied from a previous office note and have been reviewed/updated where appropriate. All portions reflect current medical decision making from today. The clinical and radiographic findings as well as the risks, benefits and alternatives of treatmenthave been reviewed in detail with the patient. Advised to call the office if symptoms worsen or new symptoms develop. Patient expressed understanding and is in agreement with plan. Rolando Eugene, DO This note was partially generated using [employer] voice recognition system, and there may be [...] Level: 4 - Moderate documented in this encounterCleveland Clinic [facility]08-03-2023 History of Present illness Narrative* Sanna Troy RT(R) - 03/13/2023 12:30 PM EDT Radiology Service Progress Note PATIENT NAME: Eunice Vargas DATE OF SERVICE: March 13, 2023 TIME: 12:19 PM PATIENT IDENTITY VERIFICATION COMPLETED USING TWO (2) IDENTIFIERS: Name and Date of confirmedby patient verbally. FALL SCREENING: Has the patient [...] RT Cyril(R) March 13, 2023 12:19 PM documented in this encounterCleveland Clinic [facility]08-03-2023 History of Present illness Narrative* Jesus Fitzgerald PA - 03/13/2023 12:12 PM EDT This note was created using NoteWriter. Subjective [...] 09/13 of colon removed at same time CLOSURE [...] tabs for 3 days, then 2 tabs for3 days then 1 tab for 3 days [...] mouth three times daily. (Patient not taking: Nosig reported) Miscellaneous Medical Supply Ileostomy supplies: - 1 Box Coloplast One piece Assura drainable pouch OR - 2 boxes Coloplast Tacho red flat wafer # 85584 - 1 box Coloplast Detroit red drainable pouches # 11220 - 1 box Napier small barrier rings # 7805 - 1 tube stomahesive paste # 2650 - 1 box Coloplast Elastic barrier strips # 665492 - 1 bottle stomahesive powder # 20564 - 1 box adhesive remover wipes - [...] kg (171 lb 6.4 oz) SpO2 98% BMI27.66 kg/m Physical Exam Vitals and nursing note [...] he would like to see somebody in [place]. - [facility] - [...] ER evaluation. KIRSTEN Rowland documented in this encounterCleveland Clinic [facility]06-21-2023 History of Present illness Narrative* Sanna Troy RT(R) - 01/29/2023 11:00 AM EDT Radiology Service Progress Note PATIENT NAME: Eunice Vargas DATE OF SERVICE: January 29, 2023 TIME: 10:55 AM PATIENT IDENTITY VERIFICATION COMPLETED USING TWO (2) IDENTIFIERS: Name and Date of confirmedby patient verbally. FALL SCREENING: Has the patient had 2 falls in the last year or 1 fall with injury or currently using an Ambulatory Assistive Device (Walker, Cane, Wheelchair, Crutches, etc.)? No PATIENT GENDER DATA: Male PATIENT RELEVANT IMPLANT DATA REVIEWED: Not Applicable RADIOLOGY DEPARTMENT: General X-ray: Exam(s) Completed: Chest X-Ray PERIPHERAL IV DATA: Not applicable SIGNED BY: RT Cyril(R) January 29, 2023 10:55 AM documented in this encounterCleveland Clinic [facility]05-03-2023 NoteHNO ID: [id number] Author: Collin Le MD Service: ? Author Type: Physician Type: Progress Notes Filed: 12/11/2022 10:10 AM Note Text: Collin Le M.D. Colon AND Rectal Surgery [address] [facility], [address] [place] [id number] SUBJECTIVE Eunice Vargas is a 36 year [...] boxes Coloplast Tacho red flat wafer # 95039 - 1 box Coloplast Tacho red drainable pouches # 93265 - 1 box Napier small barrier rings # 7805 - 1 tube stomahesive paste # 2650 - 1 box Coloplast Elastic barrier strips # 108176 - 1 bottle stomahesive powder # 07063 - 1 box adhesive remover wipes - 1 box skin barrier prep wipes # (Patient not taking: Reported on 12/11/2022) No current facility-administered medications for this visit. OBJECTIVE BP 123/81 (BP Site: Left Arm, BP Position: Sitting, BP Cuff Size: Regular Adult) Pulse 69 Ht 167.6 cm (5' 6) Wt 71.7 kg (158 lb) BMI 25.50 [...] Mood and affect no (more content not included)...[facility]05-03-2023 History of Present illness Narrative* Collin Le MD - 12/11/2022 9:19 AM EDT Collin Le M.D. Colon & Rectal Surgery [address] [facility], [address] [place] [address] SUBJECTIVE Eunice Vargas is a 36 year [...] drainable pouch OR - 2 boxes Coloplast Detroit red flat wafer # 50430 - 1 box Coloplast Tacho red drainable pouches # 13521 - 1 box Ryan small barrier rings # 7805 - 1 tube stomahesive paste # 2650 - 1 box Coloplast Elastic barrier strips # 952774 - 1 bottle stomahesive powder # 26456 - 1 box adhesive remover wipes - 1 box skin barrier prep wipes # (Patient not taking: Reported on 12/11/2022) No current facility-administered medications for this visit. OBJECTIVE BP 123/81 (BP Site: Left Arm, BP Position: Sitting, BP Cuff Size: Regular Adult) Pulse 69 Ht 167.6 cm (5' 6) Wt 71.7 kg (158 lb) BMI 25.50 [...] This office note has been created using Pact, a speech recognition software program, and may contain errors including punctuation, grammar, spelling, gender, and inappropriate words or phrases that pertain to the sytem. documented in this encounterCleveland Clinic [facility]04-28-2023 History of Present illness Narrative* Evy Daigle RT(R) - 12/06/2022 8:10 AM EDT Radiology Service Progress Note PATIENT NAME: Eunice Vargas DATE OF SERVICE: December 06, 2022 TIME: 8:03 AM PATIENT IDENTITY VERIFICATION COMPLETED USING TWO (2) IDENTIFIERS: Name and Date of confirmedby patient verbally. FALL SCREENING: Has the patient [...] RT Shorty(R) December 06, 2022 8:03 AM documented in this encounterCleveland Clinic [facility]04-25-2023 NoteHNO ID: [id number] Author: Jacque Aranda RN Service: Care Management [...] Row Name Admission (Current) from 11/26/2022 in [place] [address] ORTHOPEDIC Medical Follow-Up Appointment Specialty surgery Provider Name Collin le Additional Instructions call for appointment in 1 week SIGNATURE: Jacque Aranda RN PATIENT NAME: Eunice Vargas DATE: December 03, 2022 TIME: 11:50 AM CONTACT #: [phone]04-25-2023 NoteHNO ID: [id number] Author: Brenda Manzo DO Service: General Surgery [...] This office note has been created using Pact, a speech recognition software program, and may [...] in ICU or 2174 if on RNF. SUBJECTIVE: NAEO.He has been [...] (Oral) Resp 16 Ht 167.6 cm (5' 6) Wt 72.6 kg (160 lb) SpO2 98% BMI 25.82 kg/m? O2 Therapy: Room Air IANDO: Date 12/02/22699 - 12/03/22 0659 12/03/22699 - 12/04/22 0659 Shift 3141-7669 2309-7066 6029-9671 24 Hour Total 6006-7547 0869-6120 9403-2753 24 Hour Total INTAKE PO 720 720 [...] - Pain and Naus (more content not included)...[facility] 12-02-2022 NoteHNO ID: [id number] Author: Jacque Aranda RN Service: Care Management [...] 02, 2022 TIME: 11:55 AM PAGER/CONTACT #: [phone] 12-02-2022 NoteHNO ID: [id number] Author: Nicolas Thornton DO Service: General Surgery [...] This office note has been created using Pact, a speech recognition software program, and may [...] team and attending Dr Le Signature: Nicolas Thornton, DO PGY-5 Date: 12/02/2022 Time: 6:45 AM [...] questions or concerns Mon-Fri 6a-5p please page [phone]. After 5pm and on Weekends and Holidays, please page [phone] if in ICU or [phone] if on RNF. SUBJECTIVE: NAEO. Patient states [...] (Oral) Resp 16 Ht 167.6 cm (5' 6) Wt 72.6 kg (160 lb) SpO2 96% BMI 25.82 kg/m? O2 Therapy: Room Air IANDO: Date 12/01/22 07 - 12/02/22 0659 12/02/22 07 - 12/03/22 0659 Shift 9788-8644 9979-4622 9084-9186 24 Hour Total 6518-5071 6039-0461 5155-1179 24 Hour Total INTAKE PO 240 60 300 PO 240 60 300 IV 1000 1000 Volume (mL) (lactated ringers iv infusion) 1000 1000 Shift Total 1000 307 89 8957 OUTPUT Urine Urine Not Saved. 1 x [...] AANDOx3, CN II-XII vanesa (more content not included)...[facility]04-23-2023 NoteHNO ID: [id number] Author: Nicolas Thornton DO Service: General Surgery [...] questions or concerns Mon-Fri 6a-5p please page [phone]. After 5pm and on Weekends and Holidays, please page [phone]. SUBJECTIVE: Made DIET NPO after KUB revealed bowel dilation. Still passing flatus and had diarrhea. Comfortable, willing to trial liquids again today. OBJECTIVE: Vitals: Temp (24hrs), Av.7 ?C (98 ?F), Min:36.5 ?C (97.7 ?F), Max:36.7 ?C (98.1 ?F) BP 123/89 Pulse 93 Temp 36.7 ?C (98.1 ?F) (Oral) Resp 16 Ht 167.6 cm (5' 6) Wt 72.6 kg (160 lb) SpO2 94% BMI 25.82 kg/m? O2 Therapy: Room Air IANDO: Date 11/30/22699 - 12/01/22 0612/01/22 07 - 12/02/22 0659 Shift 2541-7872 9032-0742 1326-2020 24 Hour Total 3334-7285 8620-7344 0782-0947 24 Hour Total INTAKE IV 1000 1000 [...] patient, resident team and attending Dr Lovell air transport professionals for Dr Le SIGNATURE: Nicolas Thornton DO PATIENT NAME: Eunice Vargas DATE: December 01, 2022 TIME: 7:11 AM Pager: see below Elective General Surgery (Green Surgery) Service Pager: For questions or concerns Mon-Fri 6a-5p please page [phone]. After 5pm and on Weekends and Holidays, please page [phone] if in ICU or 2174 if on RNF.[facility]04-22-2023 NoteHNO ID: [id number] Author: Nicolas Thornton DO Service: General Surgery [...] questions or concerns Mon-Fri 6a-5p please page [phone]. After 5pm and on Weekends and Holidays, please page [phone]. SUBJECTIVE: Some nausea but controlled with zofran. Admits to distension, no reliable bowel function yet. DIET GASTRO INTESTINAL OBJECTIVE: Vitals: Temp (24hrs), Av.8 ?C (98.2 ?F), Min:36.6 ?C (97.9 ?F), Max:36.9 ?C (98.4 ?F) BP 122/88 Pulse 115 Temp 36.6 ?C (97.9 ?F) (Oral) Resp 17 Ht 167.6 cm (5' 6) Wt 72.6 kg (160 lb) SpO2 94% BMI 25.82 kg/m? O2 Therapy: Room Air IANDO: Date 11/29/22 07 - 11/30/22 0659 11/30/22 0700 - 12/01/22 0659 Shift 7468-0442 0044-6245 1221-8923 24 Hour Total 6793-9570 8699-2223 9193-7695 24 Hour Total INTAKE PO 480 480 [...] patient, resident team and attending Dr Lovell air transport professionals for Dr Le SIGNATURE: Nicolas Thornton DO PATIENT NAME: Eunice Vargas DATE: November 30, 2022 TIME: 6:22 AM Pager: see below Elective General Surgery (Green Surgery) Service Pager: For questions or concerns Mon-Fri 6a-5p please page [phone]. After 5pm and on Weekends and Holidays, please page [phone] if in ICU or 2174 if on RNF.[facility]04-21-2023 NoteHNO ID: [id number] Author: Jacque Aranda RN Service: Care Management Author Type: Registered Nurse Type: Care Mgt Initial Assessment Filed: 11/29/2022 2:24 PM Note Text: CARE MANAGEMENT: ASSESSMENT AND DISCHARGE PLAN SERVICE DATE: November 29, 2022 SERVICE TIME: 0950 PCP: No primary care provider on file. Primary Contact: Extended Emergency Contact Information Primary Emergency Contact: JamshidlucitaViktorSanta Address: [address] [place] [address] [facility] Mobile Relation: Spouse Secondary Emergency Contact: Marissa Noble Mobile Relation: Mother Admission Status: Inpatient Insurance Provider: [employer] PPO Discharge Planning requested by: Per Department Practice Potential Transition Plans Home Advance Directives Current Advance Directive: Health Care Power of Supervisor Forming Department In Chart: Yes Up To Date and Valid: Yes Current Living Arrangements and Support Lives with: Spouse/significant other Type of Residence: Private Residence (House) Does the patient have to climb stairs at home?: No Support: Spouse/significant other How do you manage to accomplish the following: Independent: Ambulation;Bathe/Shower;Dress;Meals/Meal Prep;Going to the bathroom;Medication Management;Transportation to appointments/community Current Services/Equipment Current Post-Acute Service(s): None Discharge Planning Patient Goal(s): Be able to go home [place] of Choice Explained: [place] of Choice Given: No Reason Not Given: [...] 29, 2022 TIME: 9:11 AM CONTACT #: [phone]04-21-2023 Note HNO ID: [id number] Author: Brenda Manzo DO Service: General Surgery [...] This office note has been created using Pact, a speech recognition software program, and may contain errors including punctuation, grammar, spelling, gender, and inappropriate words or phrases that pertain to the sytem. Elective General Surgery (Green Surgery) Progress Note SERVICE DATE: November 29, 2022 Elective General Surgery (Green Surgery) Service Pager: For questions or concerns Mon-Fri 6a-5p please page [phone]. After 5pm and on Weekends and Holidays, please page [phone]. SUBJECTIVE: Patient reports he feels better today. Less distended. Passing gas and BM. Cautious about going home today. OBJECTIVE: Vitals: Temp (24hrs), Av.8 ?C (98.2 ?F), Min:36.6 ?C (97.9 ?F), Max:36.9 ?C (98.4 ?F) BP 121/82 Pulse 89 Temp 36.6 ?C (97.9 ?F) (Oral) Resp 18 Ht 167.6 cm (5' 6) Wt 72.6 kg (160 lb) SpO2 95% BMI 25.82 kg/m? O2 Therapy: Room Air IANDO: Date 11/28/22699 - 11/29/22 0659 11/29/22699 - 11/30/22 0659 Shift 3053-0638 5226-8537 4665-7804 24 Hour Total 5430-9021 1135-9938 0292-1692 24 Hour Total INTAKE PO 360 600 [...] if in ICU or 2174 if on RNF.[facility]04-20-2023 NoteHNO ID: [id number] Author: Nicolas Thornton DO Service: General Surgery [...] This office note has been created using Pact, a speech recognition software program, and may contain errors including punctuation, grammar, spelling, gender, and inappropriate words or phrases that pertain to the sytem. Elective General Surgery (Green Surgery) Progress Note SERVICE DATE: November 28, 2022 Elective General Surgery (Green Surgery) Service Pager: For questions or concerns Mon-Fri 6a-5p please page [phone]. After 5pm and on Weekends and Holidays, please page [phone]. SUBJECTIVE: Admits to increased nausea this morning, dry heaves but no vomiting. DIET GASTRO INTESTINAL OBJECTIVE: Vitals: Temp (24hrs), Av.7 ?C (98.1 ?F), Min:36.6 ?C (97.9 ?F), Max:36.9 ?C (98.4 ?F) BP 139/92 Pulse 113 Temp 36.9 ?C (98.4 ?F) (Oral) Resp 18 Ht 167.6 cm (5' 6) Wt 72.6 kg (160 lb) SpO2 95% [...] if in ICU or 2174 if on RNF.[facility]04-19-2023 NoteHNO ID: [id number] Author: Alexander Nolen MD Service: General Surgery [...] This office note has been created using Pact, a speech recognition software program, and may contain errors including punctuation, grammar, spelling, gender, and inappropriate words or phrases that pertain to the sytem. Elective General Surgery (Green Surgery) Progress Note SERVICE DATE: November 27, 2022 Elective General Surgery (Green Surgery) Service Pager: For questions or concerns Mon-Fri 6a-5p please page [phone]. After 5pm and on Weekends and Holidays, please page [phone]. SUBJECTIVE: Patient status post ileostomy reversal. Patient doing well without any nausea/vomiting. Had about 3 BM. Tolerating diet DIET LIQUID OBJECTIVE: Vitals: Temp (24hrs), Av.6 ?C (97.8 ?F), Min:36 ?C (96.8 ?F), Max:37.1 ?C (98.8 ?F) BP 112/83 Pulse 77 Temp 36.7 ?C (98.1 ?F) (Oral) Resp 16 Ht 167.6 cm (5' 6) Wt 72.6 kg (160 lb) SpO2 100% BMI 25.82 kg/m? O2 Therapy: Room Air IANDO: Date 11/26/22699 - 11/27/22 0611/27/22699 - 11/28/22 0659 Shift 5802-0419 5806-5295 9347-5889 24 Hour Total 9550-3994 7436-1915 6770-1412 24 Hour Total INTAKE PO 240 240 [...] if in ICU or 2174 if on RNF.[facility]04-18-2023 NoteHNO ID: [id number] Author: Jennifer Cardenas RN Service: ? Author Type: Registered Nurse Type: Nursing Progress Note Filed: 11/26/2022 2:46 PM Note Text: Family visiting at bedside for second time, pt waiting on [facility]04-18-2023 NoteHNO ID: [id number] Author: Jennifer Cardenas RN Service: ? Author Type: Registered Nurse Type: Nursing Progress Note Filed: 11/26/2022 2:45 PM Note Text: Changed dress, edges were pink, minimal bleeding to site. Gauze placed and [facility]adermNorthern [facility]04-18-2023 NoteHNO ID: [id number] Author: Jennifer Cardenas RN Service: ? Author Type: Registered Nurse Type: Nursing Progress Note Filed: 11/26/2022 12:02 PM Note Text: Messaged provider to change dressing, [facility]04-18-2023 NoteHNO ID: [id number] Author: Gulshan Parker APRN.CRNA Service: Anesthesiology Author Type: Nurse Pre Billing Specialist Type: Anesthesia Procedure Notes Filed: 11/26/2022 7:48 [...] November 26, 2022 TIME: 7:48 AM CSN: [id number] Light [facility]04-18-2023 NoteHNO ID: [id number] Author: Gulshan Parker APRN.CRNA Service: Anesthesiology Author Type: Nurse Pre Billing Specialist Type: Anesthesia Procedure Notes Filed: 11/26/2022 7:47 AM Note Text: ANESTHESIOLOGY PROCEDURE NOTE Airway General Information Procedure Start Time/Medication Administration: 11/26/2022 7:34 AM Patient location during procedure: OR Timeout Performed Pre-procedure: timeout performed Consent Obtained: Yes Patient identity confirmed: arm band and patient Staffing [employer]: Gulshan Parker APRN.[employer]TON [employer]AND[employer]KER Performed by: BLAINE Indications and Patient Condition [...] no Airway not difficult SIGNATURE: Gulshan Parker APRN.CRNA PATIENT NAME: Eunice Vargas DATE: November 26, 2022 TIME: 7:47 AM CSN: [id number] [facility] History and physical note* Kinza Sutton APRN.CNP - 11/21/2022 10:00 AM EDT HISTORY AND PHYSICAL EXAMINATION SERVICE DATE: 11/21/2022 SERVICE TIME: 0940 PRIMARY CARE PHYSICIAN: Cassie Richardson MD REASON [...] COVID-19 booster vaccine, age 12+ yr, bivalent ([employer]) 07/31/2021 Imm Admin: COVID-19 original vaccine, full [...] that. ON 11/2021 he had OPEN COMPLETION COLECTOMY,WITH EXTENSIVE LYSIS OF ADHESIONS diverting loop ileostomy He is now here for reversal. He currently denies abdominal pain, nausea or vomiting. After discussion with the surgeon the patient agrees tosurgical intervention. REVIEW OF SYSTEMS: General: Negative for: [...] drainable pouch OR - 2 boxes Coloplast [place] red flat wafer # 26808 - 1 box Coloplast [place] red drainable pouches # 75736 - 1 box Ryan small barrier rings # 7805 - 1 tube stomahesive paste # 2650 - 1 box Coloplast Elastic barrier strips # 166457 - 1 bottle stomahesive powder # 97738 - 1 box adhesive remover wipes - [...] (1.68m) Wt 165 lb (74.8kg) SpO2 99% BMI26.64 kg/(m^2). Diagnostic tests reviewed for today's visit: [...] 354 QTC Calculation (Bazett) 408 Calculated P [place] 56 Calculated R [place] -28 Calculated T [place] 20 Impression NORMAL SINUS RHYTHM WITH SINUS ARRHYTHMIA POSSIBLE LEFT ATRIAL ENLARGEMENT INCOMPLETE RIGHT BUNDLE BRANCH BLOCK BORDERLINE ECG WHEN COMPARED WITH ECG OF 21-SEP-2021 15:08, VENT. RATE HAS DECREASED BY 48 BPM Confirmed by MD BERNARD PATRICIA ([id number]) on 04/02/2022 5:38:01 PM No results found for this or any previous visit (from the past 69710 hour(s)). Assessment Patient has the following medical [...] - ANESTHESIA PLAN Anesthetic Plan: general Beta Juan Monitoring Plan Post Procedure Analgesic Plan Prepared [...] surgeon in epic CBC, BMP ordered per DROP BOARD MAN I spent a total of 40 minutes on the date of the service which included preparing to see the patient, afbw-gu-joiy patient care, completing clinical documentation, obtaining and/or reviewing separately obtained history, performing a medically appropriate examination, counseling and educating the pat ient/family/caregiver, and ordering medications, tests, or procedures. Instructions Given to Patient: Instructions located in the after visit summary. Patient given verbal and written preop instructions and voices comprehension and compliance. SIGNATURE: Kinza Sutton APRN.CNP PATIENT NAME: Eunice Vargas DATE: November 20, 2022 TIME: 3:18 PM PAGER/CONTACT #: documented in this encounterCleveland Clinic [facility]04-13-2023 Instructions* Patient Instructions* Kinza Sutton APRN.CNP - 11/21/2022 9:52 AM EDT PATIENT PREOPERATIVE INSTRUCTIONS Collin Le, * has scheduled you for your procedure at this surgery center: [facility]: [phone], [address] [address] Please read below carefully for your personalized instructions. Date of Surgery:11/26/2022 Arrival Time for Surgery: - To obtain your ARRIVAL TIME for surgery, call your surgeon's office the day before your surgery. - If your surgery is scheduled for Friday, call the Friday before. Your surgeon's scheduler conveyor will tell you what time to call [...] instructions for each medication reviewed. Please continue totake blood pressure medications including day of surgery. [...] for the first 24 hours post surgery oryour surgery may be cancelled. Please speak with [...] to bring undergarments forafter surgery you may. -If you do not have a copy of advance directives on file with us, please bring a copy with you on the day of surgery. If you already have an Advance Directive, please fax a copy to [phone] or email to for it to be added to your chart. If you do not have an Advance Directive, you can find the appropriate form and more information at [email or web address]. We recommend that youcomplete the Advance Directive form found on the [...] bring the remote with youday of surgery Kinza Sutton APRN.ANDREW documented in this encounterCleveland Clinic [facility]03-21-2023 Surgical operation note* Operative Report - Daren Dimas MD - 10/29/2022 9:41 AM EDT OPERATIVE/PROCEDURE REPORT LOG ID: [id number] Surgery/Procedure Date: Incision/Procedure Start Time: 9:46 AM Incision Close/Procedure End Time: 10:13 AM Surgeon(s)/Proceduralist(s) and Sleeve Sewer(s): Surgeon(s) and Role: * Daren Dimas MD - Proceduralist No Additional Staff Procedure(s): Flexible sigmoidoscopy with dilation and steroid injection Anesthesia: Monitored anesthesia care Brief History: 36/M with h/o- colonic inertia S/P sub-total colectomy with ileo- rectal anastomosis complicated by stenosis of the surgical [...] 29, 2022 TIME: 10:25 AM PAGER/CONTACT #: [phone] documented in this encounterCleveland Clinic Mary[facility]03-21-2023 History and physical note * KIRSTEN Ahumada - 10/29/2022 8:30 AM EDT HISTORY AND PHYSICAL EXAMINATION SERVICE DATE: 10/29/2022 [...] Prior to Admission medications as of 10/29/22 1541 Medication Sig Last Dose Taking ondansetron orally disintegrating (ZOFRAN ODT) 4 mg disintegrating tablet Take 1 tablet by mouth every 8 hours as needed for nausea/vomiting. loperamide (IMODIUM) 2 mg cap(s) Take 1 capsule by mouth three times daily. Miscellaneous Medical Supply Ileostomy supplies: - 1 Box Coloplast One piece Assura drainable pouch OR - 2 boxes Coloplast Tacho red flat wafer # 73171 - 1 box Coloplast [place] red drainable pouches # 51722 - 1 box Ryan small barrier rings # 7805 - 1 tube stomahesive paste # 2650 - 1 box Coloplast Elastic barrier strips # 960107 - 1 bottle stomahesive powder # 54304 - 1 box adhesive remover wipes - [...] which included preparing to see the patient, wcct-ia-zias patient care, completing clinical documentation, and performing a medically appropriate examination. Instructions Given to Patient: Patient given verbal preop instructions and voices comprehension and compliance. SIGNATURE: KIRSTEN Ahumada PATIENT NAME: Eunice Vargas DATE: October 29, 2022 TIME: 7:21 AM PAGER/CONTACT #: documented in this encounterCleveland Clinic Mary[facility] Hospital03-14-2023 Miscellaneous Notes* Telephone Encounter - Esmer Flanagan Ma - 10/22/2022 3:40 PM EDT Images from the original note were not included. Collin Le MD You 7 days ago Thanks I gave him a call * Telephone Encounter - Esmer Flanagan Ma - 10/15/2022 9:44 AM EST 10/15/22 Patient called states his frustration due [...] schedule reversal. Office will inform Dr. Le. Pleaseadvise. Esmer Flanagan Ma documented in this encounterCleveland Clinic Mary[facility] Hospital03-14-2023 Surgical operation note* Operative Report - Daren Dimas MD - 10/22/2022 10:01 AM EDT OPERATIVE/PROCEDURE REPORT LOG ID: [id number] Surgery/Procedure Date: Incision/Procedure Start Time: 10:12 AM Incision Close/Procedure End Time: 10:21 AM Surgeon(s)/Proceduralist(s) and Sleeve Sewer(s): Surgeon(s) and Role: * Daren Dimas MD No Additional Staff Procedure(s): Flexible sigmoidoscopy with polypectomy ileo-colonic anastomosis dilation Anesthesia: Monitored anesthesia care Brief History: 36/M with colonic inertia S/P sub-total colectomy with ileo- rectal anastomosis complicated by stenosis of the surgical [...] 22, 2022 TIME: 10:23 AM PAGER/CONTACT #: [phone] documented in this encounterCleveland Clinic Mary[facility] Hospital02-22-2023 Miscellaneous Notes* Telephone Encounter - Matthew Duckworth - 10/02/2022 10:52 AM EST Patient called the office and wanted to know if there was an update about getting his junction sitedilated. I told the patient I would reach out to you and give him a call back with an update. Thankyou. Matthew Duckworth October 02, 2022 10:53 AM documented in this encounterCleveland Clinic Mary[facility] Hospital02-16-2023 NoteHNO ID: [id number] Author: Jil Penaloza RN Service: ? Author Type: Registered Nurse Type: Nursing Progress Note Filed: 09/26/2022 9:51 AM Note Text: Dr Le spoke with patientNorthern [facility]02-16-2023 Nurse Note* Jil Penaloza RN - 09/26/2022 9:[address] Le spoke with patient documented in this encounterCleveland Clinic Marymount Hospital02-16-2023 Hospital Discharge instructions* Discharge Instr - Other Orders* Collin Le MD - 09/26/2022 9:35 AM [...] hours. Eat high-fiber foods or use an ehvs-zyd-gdaloqq fiber supplement, if needed. Rest and avoid [...] during the first week, call your doctor immediatelyor go to your nearest emergency room: You are unable to have a bowel movement or to urinate. You suddenly have trouble breathing. Your stools are black or bloody. Your vomit has blood or bile in it. Your abdomen becomes tender and hard. Any symptoms you have are getting worse. documented in this encounterCleveland Clinic Mary[facility] Hospital02-16-2023 Surgical operation note* Operative Report - Collin Le MD - 09/26/2022 9:18 AM EST OPERATIVE/PROCEDURE REPORT LOG ID: [id number] Surgery/Procedure Date: Incision/Procedure Start Time: 9:25 AM Incision Close/Procedure End Time: 9:28 AM Surgeon(s)/Proceduralist(s) and Sleeve Sewer(s): Surgeon(s) and Role: * Aric Patino DO - Resident - Assisting * Collin Le MD - Proceduralist No Additional Staff Procedure(s): Flexible sigmoidoscopy Anesthesia: MAC Brief History: The patient is a pleasant 36-year-old male who presents after ileostomy creation andileorectal anastomosis for reevaluation prior to stoma reversal. [...] 26, 2022 TIME: 9:32 AM PAGER/CONTACT #: [phone] documented in this encounterCleveland Clinic Marymount Hospital02-16-2023 History and physical note * Alix Womack, ROHIT.FINANCE EXECUTIVE - 09/26/2022 8:00 AM EST HISTORY AND PHYSICAL EXAMINATION Eunice Wheeler Padminilinnettelucita 1985 SERVICE DATE: 09/26/2022 SERVICE TIME: 8:36 [...] reversed. He currently takes Imodium prn and stateshe needs this only occasionally. He denies nausea, vomiting, abdominal pain, weight [...] boxes Coloplast Tacho red flat wafer # 08150 - 1 box Coloplast Tacho red drainable pouches # 22859 - 1 box Ryan small barrier rings # 7805 - 1 tube stomahesive paste # 2650 - 1 box Coloplast Elastic barrier strips # 178278 - 1 bottle stomahesive powder # 13042 - 1 box adhesive remover wipes - [...] no history of chest pain, palpitations, CHF, IA, cardiac surgery or stents GI: see HPI [...] kg (164 lb) Height: 170.2 cm (5' 7) Body mass index is 25.69 kg/m . Assessment/Plan There is no known pertinent medical condition which may affect jean pierre-operative course SIGNATURE: Alix Womack APRN.CNP PATIENT NAME: Eunice Vargas DATE: September 26, 2022 TIME: 8:36 AM PAGER/CONTACT #: documented in this encounterCleveland Clinic Marymount Hospital02-06-2023 Miscellaneous Notes* Allied Health - RT Johnna(R) - 09/16/2022 10:00 AM EST Radiology Service Progress Note PATIENT NAME: Eunice Vargas DATE OF SERVICE: September 16, 2022 TIME: 10:31 AM PATIENT IDENTITY VERIFICATION COMPLETED USING TWO (2) IDENTIFIERS: Name and Date of confirmedby patient verbally and Name and Date of confirmed by identification band. FALL SCREENING: Has the patient had 2 falls in the last year or 1 fall with injury or currently using an Ambulatory Assistive Device (Walker, Cane, Wheelchair, Crutches, etc.)? No PATIENT GENDER DATA: Male PATIENT RELEVANT IMPLANT DATA REVIEWED: Not Applicable RADIOLOGY DEPARTMENT: General X-ray: Exam(s) Completed: GI/ Procedure(s): Barium enema with watersoluable contrast PERIPHERAL IV DATA: Not applicable SIGNED BY: RT Johnna(R) September 16, 2022 10:31 AM documented in this encounterCleveland Clinic Mary[facility] Hospital01-12-2023 History of Present illness Narrative* Cassie Richardson MD - 08/22/2022 9:22 AM EST Pt is here today for an annual [...] drainable pouch OR - 2 boxes Coloplast [place] red flat wafer # 98529 - 1 box Coloplast Tacho red drainable pouches # 99503 - 1 box Napier small barrier rings # 7805 - 1 tube stomahesive paste # 2650 - 1 box Coloplast Elastic barrier strips # 982431 - 1 bottle stomahesive powder # 67732 - 1 box adhesive remover wipes - [...] F) (Left Tympanic) Ht 170.2 cm (5' 7) Wt 76.2 kg (168lb) SpO2 94% BMI 26.31 kg/m ASSESSMENT/PLAN: 1. Encounter for immunization - ICD9: V03.89, ICD10: Z23 (primary diagnosis) - PFIZER-ZALORA COVID-19 BIVALENT BOOSTER VACCINE, AGE 12+ YR 2. Screening for lipid disorders - ICD9: V77.91, ICD10: Z13.220 - LIPID PANEL BASIC 3. Wellness examination - ICD9: V70.0, ICD10: Z00.00 - Counseled on healthy diet and regular exercise Cassie Richardson MD documented in this encounterCleveland Clinic Marymount Hospital01-09-2023 NoteHNO ID: [id number] Author: Collin Le MD Service: ? Author Type: Physician Type: Progress Notes Filed: 08/19/2022 12:00 PM Note Text: Collin Le M.D. Colon AND Rectal Surgery [address] [facility], [address] [place] [address] SUBJECTIVE Eunice Vargas is a 36 year [...] drainable pouch OR - 2 boxes Coloplast [place] red flat wafer # 26643 - 1 box Coloplast Tacho red drainable pouches # 51587 - 1 box Napier small barrier rings # 7805 - 1 tube stomahesive paste # 2650 - 1 box Coloplast Elastic barrier strips # 002701 - 1 bottle stomahesive powder # 45730 - 1 box adhesive remover wipes - [...] Adult) Pulse 68 Ht 167.6 cm (5' 6) Wt 74.8 kg (165 lb) BMI 26.63 [...] Psychiatric: Mood and Affect: (more content not included)...[facility] 08-19-2022 History of Present illness Narrative* Collin Le MD - 08/19/2022 10:53 AM EST Images from the original note were not included. Collin Le M.D. 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 As the rectum is fixed, I thinkthe risk of recurrence of this is low, and think it is reasonable to consider reversal. He did haveanorectal manometry previously which showed an intact rectoanal [...] surgery. INFORMED CONSENT Eunice Vargas Medical Record: [id number] Date: 08/19/2022 Procedure: Flexible sigmoidoscopy followed by ileostomy reversal The risks, benefits and anticipated outcomes of the procedure, the risks and benefits of the alternatives to the procedure and the roles and tasks of the personnel to be involved were discussed with the patient and the patient consents to the procedure and agrees to proceed. I verify that I personally obtained Eunice Vargas's consent. Collin Le MD Dept of [facility] SURGERY DEPARTMENT Follow up: Return for Flexible sigmoidoscopy. Collin Le M.D. Please Note: This office note has been created using Pact, a speech recognition software program, and may contain errors including punctuation, grammar, spelling, gender, and inappropriate words or phrases that pertain to the sytem. documented in this encounterCleveland Clinic Mary[facility] Hospital08-25-2022 History of Present illness Narrative* Asha Bey RN - 04/04/2022 10:14 AM EDT TRANSITIONAL CARE MANAGEMENT (TCM) COMMUNITY MONITORING PROGRAM Provider Action/FYI: Pt has colostomy Spoke with patient, denies pain, denies sob, no nausea/vomiting, stoma output back to normal he states, independent with ADL's SUMMARY: Pt discharged from [facility] [place] on 04/03/22. Admitted for: enteritis Contact made with patient: Yes Hi my name is Asha Bey RN and I am calling from the [facility] on behalf of your PCP,Cassie Richardson MD I understand you were recently [...] like to speak with a social work donor services team leader to help give you support for any [...] I will send your request to a scheduler conveyor who will contact and assist you with [...] TCM Home Visit Referral Source of Stratification: [facility] Hospital Admission Status: Discharged Readmission Risk Score: 11 SAILAJA Score: 2 Program referral criteria met: Does not meet referral criteria Patient does not qualify for High Risk TCM Home Visit program due to: Does not meet referral criteria Patient does not quality for High Risk TCM Home Visit Program due to: Does not meet referral criteria Preferred contact number: [phone] Is patient staying somewhere other than the listed home address: No Dialysis Patient: No documented in this encounterCleveland Clinic [facility] Hospital08-23-2022 History of Past illness Narrative* Problem Noted Date Diagnosed Date Resolved Date Sepsis 04/02/2022 01/17/2023 Bowel obstruction 09/21/2021 09/23/2021 documented as of this encounter (statuses as of 03/13/2023) [facility] History of Past illness Narrative* Problem Noted Date Diagnosed Date Resolved Date Sepsis 04/02/2022 01/17/2023 Bowel obstruction 09/21/2021 09/23/2021 documented as of this encounter (statuses as of 03/18/2023) [facility] History of Past illness Narrative* Problem Noted Date Diagnosed Date Resolved Date Sepsis 04/02/2022 01/17/2023 Bowel obstruction 09/21/2021 09/23/2021 documented as of this encounter (statuses as of 03/19/2023) [facility] History of Past illness Narrative* Problem Noted Date Diagnosed Date Resolved Date Sepsis 04/02/2022 01/17/2023 Bowel obstruction 09/21/2021 09/23/2021 documented as of this encounter (statuses as of 04/04/2023) [facility] History of Past illness Narrative* Problem Noted Date Diagnosed Date Resolved Date Sepsis 04/02/2022 01/17/2023 Bowel obstruction 09/21/2021 09/23/2021 documented as of this encounter (statuses as of 04/22/2023) [facility] History of Past illness Narrative* Problem Noted Date Diagnosed Date Resolved Date Sepsis 04/02/2022 01/17/2023 Bowel obstruction 09/21/2021 09/23/2021 documented as of this encounter (statuses as of 06/15/2023) [facility] History of Past illness Narrative* Problem Noted Date Diagnosed Date Resolved Date Sepsis 04/02/2022 01/17/2023 Bowel obstruction 09/21/2021 09/23/2021 documented as of this encounter (statuses as of 07/18/2023) [facility] of Past illness Narrative* Problem Noted Date Diagnosed Date Resolved Date Sepsis 04/02/2022 01/17/2023 Bowel obstruction 09/21/2021 09/23/2021 documented as of this encounter (statuses as of 09/26/2023) [facility] of Past illness Narrative* Problem Noted Date Diagnosed Date Resolved Date Sepsis 04/02/2022 01/17/2023 Bowel obstruction 09/21/2021 09/23/2021 documented as of this encounter (statuses as of 09/29/2023) [facility] History of Present illness Narrative* Simone Becerra [...] May 2021 with extended right hemicolectomy at [facility]. He had a prolonged ileus after this and continued to have problems postoperatively. Followed with surgeon Dr. Nelson at [facility]. He had a colonoscopy 10 days [...] Non-smoker, has 4 drinks/week. 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 He was given a provisional diagnosis [...] MD MPH FRCPC FACG documented in this encounterCleveland Clinic Marymount Hospital06-03-2022 Miscellaneous Notes* Telephone Encounter - Leonie Alejandre RN - 01/11/2022 10:50 AM EDT RUST OPERATIONAL ASSISTANT ONE MONTH FOLLOW UP PHONE CALL PHONE [...] RN DATE: 01/11/2022 TIME: 10:50 AM CONTACT #:[phone] documented in this encounterCleveland Clinic Marymount Hospital05-31-2022 Miscellaneous Notes* SN Routine - Lacey Fortune LPN - 01/08/2022 10:05 AM EDT SITUATION: Detention routine visit completed today. No one else [...] discharged from homecare. SN placed TC to [facility] to inquire when supplies order was sent to and [facility] was unable to locate any orders for [...] at next SN visit documented in this encounterCleveland Clinic [facility]mount Hospital05-24-2022 Miscellaneous Notes* SN Routine - Maile Caruso RN - 01/01/2022 12:04 PM EDT SITUATION: Detention routine visit completed today. spouse also present [...] (be specific): agency discharge documented in this encounterCleveland Clinic Marymount Hospital05-23-2022 History of Present illness Narrative* Collin Le MD - 12/31/2021 9:14 AM EDT Images from the original note were not included. Collin Le M.D. Colon & Rectal Surgery [address] [facility], [address] [place], [place] [address] SUBJECTIVE Eunice Vargas is a 36 year old White male status post completion of abdominal colectomy with diverting loop ileostomy. HPI The patient was referred by Cassie Richardson (Abdiel) [address] [facility] [id number] my recommendation will be sent back. He [...] boxes Coloplast Tacho red flat wafer # 91554 - 1 box Coloplast Tacho red drainable pouches # 63857 - 1 box Napier small barrier rings # 7805 - 1 tube stomahesive paste # 2650 - 1 box Coloplast Elastic barrier strips # 526224 - 1 bottle stomahesive powder # 14615 - 1 box adhesive remover wipes - [...] Adult) Pulse 98 Ht 170.2 cm (5' 7) Wt 64 kg (141 lb) BMI 22.08 [...] This office note has been created using Pact, a speech recognition software program, and may contain errors including punctuation, grammar, spelling, gender, and inappropriate words or phrases that pertain to the sytem. documented in this encounterCleveland Clinic [facility] Hospital05-20-2022 Miscellaneous Notes* SN PRN - Maile Caruso RN - 12/28/2021 9:00 AM EDT SITUATION: Detention PRN visit completed today. No caregiver present [...] information to order supplies documented in this encounterCleveland Clinic [facility] Hospital05-19-2022 Miscellaneous Notes* SN Routine - Maile Caruso RN - 12/27/2021 12:26 PM EDT SITUATION: Detention routine visit completed today. spouse also present [...] focus on (be specific): documented in this encounterCleveland Clinic [facility]05-16-2022 Miscellaneous Notes* SN Routine - Maile Caruso RN - 12/24/2021 10:56 AM EDT SITUATION: Detention routine visit completed today. spouse also present [...] focus on (be specific): documented in this encounterCleveland Clinic [facility]05-13-2022 Miscellaneous Notes* SN SOC - Anna Garber RN - 12/21/2021 8:09 AM EDT SITUATION: Detention SOC visit completed today. patient reports the following: Allergies--reviewed Medications--full medication reconciliation completed and reviewed current medications Falls--None DME-Reviewed and added to chart BACKGROUND: Discharged/Referral from acute [facility] on 12/19/21 following treatment for Colonic [...] have pt demonstrate it. documented in this encounterCleveland Clinic [facility]05-12-2022 History of Present illness Narrative* Kylee Owen RN - 12/20/2021 4:39 PM EDT TRANSITIONAL CARE MANAGEMENT ([facility]) COMMUNITY MONITORING PROGRAM Provider Action/FYI: This RN [...] 12/20/2021 2:48 PM EDT TRANSITIONAL CARE MANAGEMENT ([facility]) COMMUNITY MONITORING PROGRAM Provider Action/FYI: [facility] discharge 12-19-21- initial outreach Discharge home with [facility] for new ostomy. Epic shows appointment 12-21-21 [...] RN and I am calling from the [place] [facility] on behalf of your PCP, Cassie Richardson [...] like to speak with a social work donor services team leader to help give you support for any [...] I will send your request to a scheduler conveyor who will contact and assist you with [...] the way if possible). Kylee Owen RN, MELANIEN Care Coordination team * Kylee Owen RN - 12/20/2021 1:58 PM EDT TCM Home Visit Referral Source of Stratification: [facility] Admission Status: Discharged Readmission Risk Score: 18 [...] listed home address: No Dialysis Patient: No DAMIAN Spivey RN Care Coordination team TRANSITIONAL CARE MANAGEMENT (TCM) COMMUNITY MONITORING PROGRAM Provider Action/FYI: [facility] discharge 12-19-21- initial outreach - Unable to reach or leave message as mailbox full. Discharge home with [facility] through [facility] for new ostomy SUMMARY: Pt discharged from on 12-19-21. Admitted for: Colonic inertia. Developed nausea, vomiting post op for elective surgery for ostomy. Contact made with patient: No - next outreach attempt will be on next business day Outreach ended Kylee Owen RN, BSN Care Coordination team documented [facility] History and physical note * Natalie Shaw APRN.FINANCE EXECUTIVE - 11/28/2021 1:40 PM EDT HISTORY AND [...] requiring medication, no history of angina, CHF, IA, cardiac surgery or stents. Denies rest pain, [...] or any previous visit (from the past 93364 hour(s)). Assessment No problem-specific Assessment & Plan [...] [facility] or Procedure: [facility]: [facility]FLAGYL[facility] 500 mg tablet neomycin 500 mg tablet promethazine (PHENERGAN) 25 mg tablet Ordered per surgeon in [facility]: Hemoglobin A1c, COVID Ordered per DROP BOARD MAN in [facility]: BMP, CBC, type and screen METS: [...] [facility] or Procedure: Answer: [facility] Planned Anesthetic: general Instructions Given to Patient: Instructions located in the after visit summary. Patient given verbal and written preop instructions and voices comprehension and compliance. SIGNATURE: Natalie Shaw APRN.CNP PATIENT NAME: Eunice Vargas DATE: November 27, 2021 TIME: 10:54 AM PAGER/CONTACT #: documented in this encounterCleveland [facility] Instructions* Patient Instructions* Natalie Shaw APRN.CNP - 11/28/2021 1:40 PM EDT PATIENT PREOPERATIVE INSTRUCTIONS Collin Le, * has scheduled you for your procedure at this surgery center: [facility]: [phone], [address] [phone] Please read below carefully for your personalized [...] surgery. - YOU MUST HAVE A RESPONSIBLE STRIPPER APPRENTICE TAKE YOU HOME. A BAIT MAKER, CAB OR UBER STRIPPER APPRENTICE CANNOT BE MADEA RESPONSIBLE STRIPPER APPRENTICE. - We recommend that a responsible person [...] in our PACU area unless a minor, automotive machinist or a special circumstance. Each patient isallowed [...] Mayi Gonzalez prior to surgery. Natalie Shaw APRN.FINANCE EXECUTIVE documented in this encounterC[facility]22 Instructions* Patient Instructions* Collin Le MD - 11/14/2021 12:00 PM EDT documented in this encounterC[facility]04-[facility]22 History of Present illness Narrative* Collin Le MD - 11/14/2021 10:48 AM EDT Images from the original note were not included. Collin Le M.D. Colon & Rectal Surgery [address] [facility], [address] [place] [phone] SUBJECTIVE Eunice Vargas is a 35 year old White male with colonic inertia HPI The patient was referred by Cassie Richardson (Abdiel) Uriah Hartman [facility] [id number] my recommendation will be sent back. His [...] (97.9 F) (Temporal) Ht 170.2 cm (5' 7) Wt 69.4 kg (153 lb) BMI 23.96 [...] This office note has been created using Pact, a speech recognition software program, and may contain errors including punctuation, grammar, spelling, gender, and inappropriate words or phrases that pertain to the sytem. documented in this encounterC[facility] Clinic [facility]02-[facility] History of Past illness Narrative* Problem Noted Date Resolved Date Bowel obstruction 09/21/2021 09/23/2021 documented as of this encounter (statuses as of 11/14/2021) [address]11-[address]22 History of Past illness Narrative* Problem Noted Date Resolved Date Bowel obstruction 09/21/2021 09/23/2021 documented as of this encounter (statuses as of 11/28/2021) [address]11-2022 History of Past illness Narrative* Problem Noted Date Resolved Date Bowel obstruction 09/21/2021 09/23/2021 documented as of this encounter (statuses as of 11/28/2021) [address]11-2022 History of Past illness Narrative* Problem Noted Date Resolved Date Bowel obstruction 09/21/2021 09/23/2021 documented as of this encounter (statuses as of 12/20/2021) [address]11-2022 History of Past illness Narrative* Problem Noted Date Resolved Date Bowel obstruction 09/21/2021 09/23/2021 documented as of this encounter (statuses as of 12/21/2021) [address]11-2022 History of Past illness Narrative* Problem Noted Date Resolved Date Bowel obstruction 09/21/2021 09/23/2021 documented as of this encounter (statuses as of 12/25/2021) [address]11-2022 History of Past illness Narrative* Problem Noted Date Resolved Date Bowel obstruction 09/21/2021 09/23/2021 documented as of this encounter (statuses as of 12/28/2021) [address]11-2022 History of Past illness Narrative* Problem Noted Date Resolved Date Bowel obstruction 09/21/2021 09/23/2021 documented as of this encounter (statuses as of 12/29/2021) [address]11-2022 History of Past illness Narrative* Problem Noted Date Resolved Date Bowel obstruction 09/21/2021 09/23/2021 documented as of this encounter (statuses as of 12/31/2021) [address]11-2022 History of Past illness Narrative* Problem Noted Date Resolved Date Bowel obstruction 09/21/2021 09/23/2021 documented as of this encounter (statuses as of 01/02/2022) [address]11-2022 History of Past illness Narrative* Problem Noted Date Resolved Date Bowel obstruction 09/21/2021 09/23/2021 documented as of this encounter (statuses as of 01/08/2022) [address]11-2022 History of Past illness Narrative* Problem Noted Date Resolved Date Bowel obstruction 09/21/2021 09/23/2021 documented as of this encounter (statuses as of 01/11/2022) [address]11-2022 History of Past illness Narrative* Problem Noted Date Resolved Date Bowel obstruction 09/21/2021 09/23/2021 documented as of this encounter (statuses as of 03/07/2022) [address]11-2022 History of Past illness Narrative* Problem Noted Date Resolved Date Bowel obstruction 09/21/2021 09/23/2021 documented as of this encounter (statuses as of 04/04/2022) [address]11-2022 History of Past illness Narrative* Problem Noted Date Resolved Date Bowel obstruction 09/21/2021 09/23/2021 documented as of this encounter (statuses as of 08/19/2022) [address]11-2022 History of Past illness Narrative* Problem Noted Date Resolved Date Bowel obstruction 09/21/2021 09/23/2021 documented as of this encounter (statuses as of 08/26/2022) [address]11-2022 History of Past illness Narrative* Problem Noted Date Resolved Date Bowel obstruction 09/21/2021 09/23/2021 documented as of this encounter (statuses as of 09/06/2022) [address]11-2022 History of Past illness Narrative* Problem Noted Date Resolved Date Bowel obstruction 09/21/2021 09/23/2021 documented as of this encounter (statuses as of 09/06/2022) [address]11-2022 History of Past illness Narrative* Problem Noted Date Resolved Date Bowel obstruction 09/21/2021 09/23/2021 documented as of this encounter (statuses as of 09/17/2022) [address]11-2022 History of Past illness Narrative* Problem Noted Date Resolved Date Bowel obstruction 09/21/2021 09/23/2021 documented as of this encounter (statuses as of 09/26/2022) [address]11-2022 History of Past illness Narrative* Problem Noted Date Resolved Date Bowel obstruction 09/21/2021 09/23/2021 documented as of this encounter (statuses as of 09/27/2022) [address]11-2022 History of Past illness Narrative* Problem Noted Date Resolved Date Bowel obstruction 09/21/2021 09/23/2021 documented as of this encounter (statuses as of 10/03/2022) [address]-2022 History of Past illness Narrative* Problem Noted Date Resolved Date Bowel obstruction 09/21/2021 09/23/2021 documented as of this encounter (statuses as of 10/16/2022) [address]11-2022 History of Past illness Narrative* Problem Noted Date Resolved Date Bowel obstruction 09/21/2021 09/23/2021 documented as of this encounter (statuses as of 10/22/2022) [address]11-2022 History of Past illness Narrative* Problem Noted Date Resolved Date Bowel obstruction 09/21/2021 09/23/2021 documented as of this encounter (statuses as of 10/23/2022) [address]11-2022 History of Past illness Narrative* Problem Noted Date Resolved Date Bowel obstruction 09/21/2021 09/23/2021 documented as of this encounter (statuses as of 10/30/2022) [address]11-2022 History of Past illness Narrative* Problem Noted Date Resolved Date Bowel obstruction 09/21/2021 09/23/2021 documented as of this encounter (statuses as of 11/22/2022) [address]11-2022 History of Past illness Narrative* Problem Noted Date Resolved Date Bowel obstruction 09/21/2021 09/23/2021 documented as of this encounter (statuses as of 12/11/2022) [facility] History of Present illness Narrative* Sanna Troy RT(R) - 06/16/2021 8:00 AM EDT Radiology Service Progress Note PATIENT NAME: Eunice Vargas DATE OF SERVICE: June 16, 2021 TIME: 8:14 AM PATIENT IDENTITY VERIFICATION COMPLETED USING TWO (2) IDENTIFIERS: Name and Date of confirmedby patient verbally. FALL SCREENING: Has the patient had 2 falls in the last year or 1 fall with injury or currently using an Ambulatory Assistive Device (Walker, Cane, Wheelchair, Crutches, etc.)? No PATIENT GENDER DATA: Male PATIENT RELEVANT IMPLANT DATA REVIEWED: Not Applicable RADIOLOGY DEPARTMENT: General X-ray: Exam(s) Completed: Abdomen X-Ray: Abdomen PERIPHERAL IV DATA: Not applicable SIGNED BY: RT Cyril(R) June 16, 2021 8:14 AM documented in this encounterC[facility] Clinic [facility]11-04-2021 History of Present illness Narrative* Sanna Troy RT(R) - 06/14/2021 9:40 AM EDT Radiology Service Progress Note PATIENT NAME: Eunice Vargas DATE OF SERVICE: June 14, 2021 TIME: 9:35 AM PATIENT IDENTITY VERIFICATION COMPLETED USING TWO (2) IDENTIFIERS: Name and Date of confirmedby patient verbally. FALL SCREENING: Has the patient had 2 falls in the last year or 1 fall with injury or currently using an Ambulatory Assistive Device (Walker, Cane, Wheelchair, Crutches, etc.)? No PATIENT GENDER DATA: Male PATIENT RELEVANT IMPLANT DATA REVIEWED: Not Applicable RADIOLOGY DEPARTMENT: General X-ray: Exam(s) Completed: Abdomen X-Ray: Abdomen PERIPHERAL IV DATA: Not applicable SIGNED BY: RT Cyril(R) June 14, 2021 9:35 AM documented in this encounterC[facility]11-02-2021 History of Present illness Narrative* Evy Daigle RT(R) - 06/12/2021 10:20 AM EDT Radiology Service Progress Note PATIENT NAME: Eunice Vargas DATE OF SERVICE: June 12, 2021 TIME: 10:12 AM PATIENT IDENTITY VERIFICATION COMPLETED USING TWO (2) IDENTIFIERS: Name and Date of confirmedby patient verbally. FALL SCREENING: Has the patient had 2 falls in the last year or 1 fall with injury or currently using an Ambulatory Assistive Device (Walker, Cane, Wheelchair, Crutches, etc.)? No PATIENT GENDER DATA: Male PATIENT RELEVANT IMPLANT DATA REVIEWED: Yes RADIOLOGY DEPARTMENT: General X-ray: Exam(s) Completed: Abdomen X-Ray: Colonic transit study Image 1 PERIPHERAL IV DATA: Not applicable SIGNED BY: RT Shorty(R) June 12, 2021 10:12 AM [facility] Diagnosis Colonic inertia- Primary Other functional disorders of intestine Ventral hernia without obstruction or gangrene Ventral hernia, unspecified, without mention of obstruction or gangrene Colonic inertia Other functional disorders of intestine documented [facility]* Diagnosis Preop examination- Primary Preoperative examination, unspecified Colonic inertia Other functional disorders of intestine Colonic inertia Other functional disorders of intestine documented in this encounter [facility] note* Diagnosis Other specified counseling- Primary Colonic inertia Other functional disorders of intestine documented in this [facility] note* Diagnosis Colonic inertia- Primary Other functional disorders of intestine Ventral hernia without obstruction or gangrene Ventral hernia, unspecified, without mention of obstruction or gangrene documented in this [facility] note* Diagnosis Colonic inertia Other functional disorders of intestine documented in this encounter [facility] note* Diagnosis Colonic inertia- Primary Other functional disorders of intestine documented in this encounter [facility] note* Diagnosis Encounter for immunization- Primary Need for other specified prophylactic vaccination against single bacterial disease Screening for lipid disorders Wellness examination [facility] Diagnosis Colonic inertia- Primary Other functional disorders of intestine Colonic inertia Other functional disorders of intestine [facility] Diagnosis Colonic inertia- Primary Other functional disorders of intestine Colonic inertia Other functional disorders of intestine [facility] Diagnosis Colonic inertia Other functional disorders of intestine Colonic inertia Other functional disorders of intestine [facility] Diagnosis Rectal stricture- Primary Stenosis of rectum and anus Colonic inertia Other functional disorders of intestine [facility] Diagnosis Colonic inertia Other functional disorders of intestine Colonic inertia Other functional disorders of intestine [facility] Diagnosis Rectal stenosis- Primary Stenosis of rectum and anus [facility] Diagnosis Rectal stenosis Stenosis of rectum and anus [facility] Diagnosis Rectal stricture Stenosis of rectum and anus [facility] Diagnosis Pre-op exam- Primary Preoperative examination, unspecified Colonic inertia Other functional disorders of intestine Colonic inertia Other functional disorders of intestine [facility] Diagnosis Colonic inertia- Primary Other functional disorders of intestine [facility] Diagnosis Acute left-sided low back pain with left-sided sciatica- Primary Lumbar radiculopathy- Primary Thoracic or lumbosacral neuritis or radiculitis, unspecified [facility] Diagnosis Lumbar radiculopathy- Primary Thoracic or lumbosacral neuritis or radiculitis, unspecified Spinal stenosis of lumbar region without neurogenic claudication Spinal stenosis, lumbar region, without neurogenic claudication [facility] Diagnosis Lumbar radiculopathy Thoracic or lumbosacral neuritis or radiculitis, unspecified [facility] Diagnosis Lumbar radiculopathy- Primary Thoracic or lumbosacral neuritis or radiculitis, unspecified [facility] Diagnosis Spinal stenosis of lumbar region without neurogenic claudication Spinal stenosis, lumbar region, without neurogenic claudication [facility] Diagnosis Acute cough- Primary [facility] Diagnosis Screening for lipid disorders- Primary Wellness examination Screening for diabetes mellitus Colonic inertia Other functional disorders of intestine [facility] Diagnosis Pre-op exam- Primary Preoperative examination, unspecified Colonic inertia Other functional disorders of intestine Colon stricture (HCC) Unspecified intestinal obstruction Pre-op exam Preoperative examination, unspecified Nausea- Primary Nausea alone Colonic inertia Other functional disorders of intestine Ileus following gastrointestinal surgery (HCC) Other digestive system complications Generalized abdominal pain Abdominal pain, generalized Colon stricture (HCC) Unspecified intestinal obstruction [facility]* Diagnosis Pre-op exam- Primary Preoperative examination, unspecified Colonic inertia Other functional disorders of intestine Colon stricture (HCC) Unspecified intestinal obstruction Pre-op exam Preoperative examination, unspecified Acute cough [facility]* Diagnosis Pre-op exam- Primary Preoperative examination, unspecified Colonic inertia Other functional disorders of intestine Colon stricture (HCC) Unspecified intestinal obstruction Pre-op exam Preoperative examination, unspecified Acute left-sided low back pain with left-sided sciatica [facility]* Diagnosis Pre-op exam- Primary Preoperative examination, unspecified Colonic inertia Other functional disorders of intestine Colon stricture (HCC) Unspecified intestinal obstruction Pre-op exam Preoperative examination, unspecified Colonic inertia- Primary Other functional disorders of intestine Ileus following gastrointestinal surgery (HCC) Other digestive system complications [facility]* Diagnosis Pre-op exam- Primary Preoperative examination, unspecified Colonic inertia Other functional disorders of intestine Colon stricture (HCC) Unspecified intestinal obstruction Pre-op exam Preoperative examination, unspecified URI, acute Acute upper respiratory infections of unspecified site [facility] Diagnosis Pre-op exam- Primary Preoperative examination, unspecified Colonic inertia Other functional disorders of intestine Status post reversal of ileostomy Colon stricture (HCC) Unspecified intestinal obstruction Pre-op exam Preoperative examination, unspecified [facility]* Diagnosis Volvulus (HCC) Volvulus [facility]* Diagnosis Pre-op exam- Primary Preoperative examination, unspecified Colonic inertia Other functional disorders of intestine Colon stricture (HCC) Unspecified intestinal obstruction Pre-op exam Preoperative examination, unspecified URI, acute- Primary Acute upper respiratory infections of unspecified site [facility]* Diagnosis Onset Date Resolution Status Admit Date Diarrhea acute December 22, 2024 7:47am Food allergy acute December 22 7:47am LUQ pain acute December 22, 2024 7:47am RLQ abdominal pain acute December 222024 7:47am [facility] Work Phone: Evaluation note* Diagnosis Pre-op exam- Primary Preoperative examination, unspecified Colonic inertia Other functional disorders of intestine Colon stricture (HCC) Unspecified intestinal obstruction Pre-op exam Preoperative examination, unspecified Viral URI with cough- Primary Acute upper respiratory infections of unspecified site SERVIN (dyspnea on exertion) Other dyspnea and respiratory abnormality Diarrhea, unspecified type documented in this encounter [facility] Discharge instructionsAmbulatory Orders* Allergy & Immunology Location: None Selected [facility] Work Phone: Patient's home Plan of care note* Visit Details Visit Type -SN ROUTINE Discipline -Detention Problems Problem Description Start Date Status Goals [...] plenty of water [facility]* Visit Details Visit Type -SN PRN VISIT Discipline -Detention Problems Problem Description Start Date Status Goals [...] plenty of water documented in this encounter [facility]'s home Plan of care note* Visit Details Visit Type -SN ROUTINE Discipline -Detention Problems Problem Description Start Date Status Goals [...] recommendations made. Weight Description: Notify Dr. Collin Brandstetter of weight change of 1-2 lbs. 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's home Plan of care note* Visit Details Visit Type -SN ROUTINE Discipline -Detention Problems Problem Description Start Date Status Goals [...] and ostomy precautions. documented in this encounter [facility] for referral (narrative)* Diagnostic Procedure Only (Routine) - Pending Review Specialty Diagnoses / Procedures Referred By Contac Referred To Contact XR IMAGING Diagnoses Colonic inertia Procedures XR COLON SINGLE CONTRAST RADIOLOGIC EXAM COLON SINGLE CONTRAST STUDY Collin Le MD [address] [address] Xr Imaging Referral ID Status Reason Start Date Expiration Date Visits Requested Visits Authorized [id number] Pending Review Auto-Generat ed Referral 08/19/2022 09/18/2023 1 1 [facility] for referral (narrative)* Outpatient Procedure (Routine) - Pending Review Specialty Diagnoses / Procedures Referred By Contac t Referred To Contact [facility] Diagnoses Colonic inertia Procedures SIGMOIDOSCOPY SIGMOIDOSCOPY FLX DX W/COLLJ SPEC BR/WA IF PFRMD Collin Le MD [address] [address] [facility] [address] [place] [address] Referral ID Status Reason Start Date Expiration Date Visits Requested Visits Authorized [id number] Pending Review Auto-Generat ed Referral 09/06/2022 09/06/2023 1 1 [facility] for referral (narrative)* Diagnostic Procedure Only (Routine) - Closed Specialty Diagnoses / Procedures Referred By Contac t Referred To Contact XR IMAGING Diagnoses Colonic inertia Procedures XR COLON SINGLE CONTRAST RADIOLOGIC EXAM COLON SINGLE CONTRAST STUDY Collin Le MD 1 [facility] [address] [place] [address] Xr Imaging Referral ID Status Reason Start Date Expiration Date V isits Requested Visits Authorized [id number] Closed Auto-Generate d Referral 08/19/2022 09/18/2023 1 1 [facility] for referral (narrative)* Outpatient Procedure (Routine) - Pending Review Specialty Diagnoses / Procedures Referred By Contac t Referred To Contact [facility] Diagnoses Rectal stricture Procedures SIGMOIDOSCOPY SIGMOIDOSCOPY FLX DX W/COLLJ SPEC BR/WA IF Daren Coronado MD [address] [place] [address] [facility] [address] [place] [address] Referral ID Status Reason Start Date Expiration Date Visits Requested Visits Authorized [id number] Pending Review Auto-Generat ed Referral 09/26/2022 09/26/2023 1 1 [facility] for referral (narrative)* Outpatient Procedure (Routine) - Closed Specialty Diagnoses / Procedures Referred By Contac t Referred To Contact Diagnoses Colonic inertia Procedures SIGMOIDOSCOPY SIGMOIDOSCOPY FLX DX W/COLLJ SPEC BR/WA IF Collin Moreira MD 1 [facility] [address] [place] [address] [facility] [address] [place] [address] Referral ID Status Reason Start Date Expiration Date V isits Requested Visits Authorized [id number] Closed Auto-Generate d Referral 09/06/2022 09/06/2023 1 1 [facility] for referral (narrative)* Outpatient Procedure (Routine) - Authorized Specialty Diagnoses / Procedures Referred By Contac t Referred To Contact [facility] Diagnoses Rectal stenosis Procedures SIGMOIDOSCOPY SIGMOIDOSCOPY FLX DX W/COLLJ SPEC BR/WA IF Daren Coronado MD [address] [facility] [place] [address] [place] [address] Referral ID Status Reason Start Date Expiration Date Visits Requested Visits Authorized [id number] Authorized Auto-Generat ed Referral 10/16/2022 10/17/2023 1 1 [facility] for referral (narrative)* Outpatient Procedure (Routine) - Closed Specialty Diagnoses / Procedures Referred By Contac t Referred To Contact [facility] Diagnoses Rectal stenosis Procedures SIGMOIDOSCOPY SIGMOIDOSCOPY FLX DX W/COLLJ SPEC BR/WA IF Daren Croonado MD [address] [place] [address] [place] [address] Referral ID Status Reason Start Date Expiration Date V isits Requested Visits Authorized [id number] Closed Auto-Generate d Referral 10/16/2022 10/17/2023 1 1 [facility] for referral (narrative)* Outpatient Procedure (Routine) - Closed Specialty Diagnoses / Procedures Referred By Contac t Referred To Contact [facility] Diagnoses Rectal stricture Procedures SIGMOIDOSCOPY SIGMOIDOSCOPY FLX DX W/COLLJ SPEC BR/WA IF Daren Coronado MD [address] [place] [address] [facility] [address] [place] [address] Referral ID Status Reason Start Date Expiration Date V isits Requested Visits Authorized [id number] Closed Auto-Generate d Referral 10/23/2022 10/24/2023 1 1 [facility] for referral (narrative)* Diagnostic Procedure Only (Urgent) - Closed Specialty Diagnoses / Procedures Referred By Contac t Referred To Contact XR IMAGING Diagnoses Acute left-sided low back pain with left-sided sciatica Procedures XR LUMBAR GENERAL 3V AP/LAT/L5-S1 RADEX SPINE LUMBOSACRAL 2/3 VIEWS [facility] [address] [place] [address] [facility] Referral ID Status Reason Start Date Expiration Date V isits Requested Visits Authorized [id number] Closed Auto-Generate d Referral 03/13/2023 04/11/2024 1 1 [facility] for referral (narrative)* Diagnostic Procedure Only (Routine) - Closed Specialty Diagnoses / Procedures Referred By Contac t Referred To Contact XR IMAGING Diagnoses Status post reversal of ileostomy Procedures XR ABDOMEN 3V KUB W/OBLIQUES RADIOLOGIC EXAM ABDOMEN 3+ VIEWS Collin Le MD [address] [facility] Referral ID Status Reason Start Date Expiration Date V isits Requested Visits Authorized [id number] Closed Auto-Generate d Referral 12/06/2022 01/02/2024 1 1 [facility] for referral (narrative)* Diagnostic Procedure Only (Routine) - Closed Specialty Diagnoses / Procedures Referred By Contac t Referred To Contact XR IMAGING Diagnoses Volvulus (HCC) Procedures XR COLONIC TRANSIT IMAGE 1 X-RAY ABD SINGLE AP VIEW Monroe Perry MD [address] [phone] [place] [address] Referral ID Status Reason Start Date Expiration Date V isits Requested Visits Authorized Closed Auto-Generate d Referral 06/07/2021 07/07/2022 99 99 T [facility] for referral (narrative)* Diagnostic Procedure Only (Routine) - Closed Specialty Diagnoses / Procedures Referred By Contac t Referred To Contact XR IMAGING Diagnoses Volvulus (HCC) Procedures XR COLONIC TRANSIT IMAGE 2 X-RAY ABD SINGLE AP VIEW Monroe Perry MD [address] [phone] [place] [id number] Referral ID Status Reason Start Date Expiration Date V isits Requested Visits Authorized Closed Auto-Generate d Referral 06/07/2021 07/07/2022 1 1 T [facility] for referral (narrative)* Diagnostic Procedure Only (Routine) - Closed Specialty Diagnoses / Procedures Referred By Contac t Referred To Contact XR IMAGING Diagnoses Volvulus (HCC) Procedures XR COLONIC TRANSIT IMAGE 3 X-RAY ABD SINGLE AP VIEW Monroe Perry MD [address] [place] [address] [place] [address] Referral ID Status Reason Start Date Expiration Date V isits Requested Visits Authorized Closed Auto-Generate d Referral 06/07/2021 07/07/2022 1 1 T [facility] for referral (narrative)No reason for referral information availableW[facility] Work Phone: Reason for visit Narrative* Diagnostic Procedure Only (Routine) - Closed Specialty Diagnoses / Procedures Referred By Contac t Referred To Contact XR IMAGING Diagnoses Colonic inertia Procedures XR COLON SINGLE CONTRAST RADIOLOGIC EXAM COLON SINGLE CONTRAST STUDY Collin Le MD [address] [address] Xr Imaging Referral ID Status Reason Start Date Expiration Date V isits Requested Visits Authorized [id number] Closed Auto-Generate d Referral 08/19/2022 09/18/2023 1 1 [facility] for visit Narrative* Outpatient Procedure (Routine) - Closed Specialty Diagnoses / Procedures Referred By Contac t Referred To Contact Diagnoses Colonic inertia Procedures SIGMOIDOSCOPY SIGMOIDOSCOPY FLX DX W/COLLJ SPEC BR/WA IF Collin Moreira MD [address] [facility] [address] [place] [address] [facility] [address] [place] [address] Referral ID Status Reason Start Date Expiration Date V isits Requested Visits Authorized [id number] Closed Auto-Generate d Referral 09/06/2022 09/06/2023 1 1 [facility] for visit Narrative* Outpatient Procedure (Routine) - Closed Specialty Diagnoses / Procedures [facility] Diagnoses Rectal stenosis Procedures SIGMOIDOSCOPY SIGMOIDOSCOPY FLX DX W/COLLJ SPEC BR/WA IF Daren Coronado MD [address] [place] [address] [address] Referral ID Status Reason Start Date Expiration Date V isits Requested Visits Authorized [id number] Closed Auto-Generate d Referral 10/16/2022 10/17/2023 1 1 [facility] for visit Narrative* Outpatient Procedure (Routine) - Closed Specialty Diagnoses / Procedures Referred By Contac t Referred To Contact [facility] Diagnoses Rectal stricture Procedures SIGMOIDOSCOPY SIGMOIDOSCOPY FLX DX W/COLLJ SPEC BR/WA IF Daren Coronado MD [address] [facility] [address] [address] Referral ID Status Reason Start Date Expiration Date V isits Requested Visits Authorized [id number] Closed Auto-Generate d Referral 10/23/2022 10/24/2023 1 1 [facility] for visit Narrative* Diagnostic Procedure Only (Routine) - Closed Specialty Diagnoses / Procedures Referred By Contac t Referred To Contact XR IMAGING Diagnoses Lumbar radiculopathy Procedures XR LUMBAR LIMITED 2V FLEX/EXT RADEX SPINE LUMBOSACRAL 2/3 VIEWS Rolando Eugene, DO [address] [place] [address] Xr Imaging Referral ID Status Reason Start Date Expiration Date V isits Requested Visits Authorized [id number] Closed Auto-Generate d Referral 03/13/2023 04/11/2024 1 1 [facility] for visit Narrative* Diagnostic Procedure Only (Urgent) - Closed Specialty Diagnoses / Procedures Referred By Contac t Referred To Contact XR IMAGING Diagnoses Acute left-sided low back pain with left-sided sciatica Procedures XR LUMBAR GENERAL 3V AP/LAT/L5-S1 RADEX SPINE LUMBOSACRAL 2/3 VIEWS [facility] [address] [place] [address] [place] [address] Referral ID Status Reason Start Date Expiration Date V isits Requested Visits Authorized [id number] Closed Auto-Generate d Referral 03/13/2023 04/11/2024 1 1 [facility] for visit Narrative* Diagnostic Procedure Only (Routine) - Closed Specialty Diagnoses / Procedures Referred By Contac t Referred To Contact XR IMAGING Diagnoses Status post reversal of ileostomy Procedures XR ABDOMEN 3V KUB W/OBLIQUES RADIOLOGIC EXAM ABDOMEN 3+ VIEWS Collin Le MD [address] [address] [place] [address] Referral ID Status Reason Start Date Expiration Date V isits Requested Visits Authorized [id number] Closed Auto-Generate d Referral 12/06/2022 01/02/2024 1 1 [facility] for visit Narrative* Diagnostic Procedure Only (Routine) - Closed Specialty Diagnoses / Procedures Referred By Contac t Referred To Contact XR IMAGING Diagnoses Volvulus (HCC) Procedures XR COLONIC TRANSIT IMAGE 1 X-RAY ABD SINGLE AP VIEW Monroe Perry MD [address] [place] [address] [place] [address] Referral ID Status Reason Start Date Expiration Date V isits Requested Visits Authorized Closed Auto-Generate d Referral 06/07/2021 07/07/2022 99 99 [facility] for visit Narrative* Diagnostic Procedure Only (Routine) - Closed Specialty Diagnoses / Procedures Referred By Contac t Referred To Contact XR IMAGING Diagnoses Volvulus (HCC) Procedures XR COLONIC TRANSIT IMAGE 2 X-RAY ABD SINGLE AP VIEW Monroe Perry MD [address] [facility] [place] [id number] Xr Imaging [place] [address] Referral ID Status Reason Start Date Expiration Date V isits Requested Visits Authorized Closed Auto-Generate d Referral 06/07/2021 07/07/2022 1 1 [facility] for visit Narrative* Diagnostic Procedure Only (Routine) - Closed Specialty Diagnoses / Procedures Referred By Contac t Referred To Contact XR IMAGING Diagnoses Volvulus (HCC) Procedures XR COLONIC TRANSIT IMAGE 3 X-RAY ABD SINGLE AP VIEW Monroe Perry MD [address] [phone] Xr Imaging 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 Advance Directive(s) 09/21/2021 3:30 PM Advance Directive(s) 07/19/2019 5:57 AM Advance Directive(s) 07/19/2019 6:01 AM Advance Directive(s) 07/06/2019 9:13 AM Documents on File Type Date 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 No August 14, 2023 10:15pm Advance Directive Response Recorded Date/ Time Do you have a Healthcare Power of Supervisor Forming Department? No March 30, 2025 10:02am Medications Administered Section Inactive Administered Medications - up to 3 most recent administrations Medication Order MAR Action Action Date Dose Rate Site lactated ringers iv infusion 30 mL/hr, INTRAVENOUS, CONTINUOUS, Starting on Fri09/26/22 at 0900, Until Fri09/26/22 at 0932, Preprocedure New Bag/Syringe/Bottle 09/26/2022 8:51 AM EST 30 mL/hr 30 mL/hr lactated ringers iv infusion 125 mL/hr, INTRAVENOUS, CONTINUOUS, Starting on Fri09/26/22 at 0900, Until Fri09/26/22 at 0918, Recovery or Phase I (only) [...] Change 10/29/2022 9:43 AM EDT 700 mL/hr Continued by Anesthesia 10/29/2022 8:54 AM EDT 30 mL/hr New Bag/Syringe/Bottle 10/29/2022 7:45 AM EDT 30 mL/hr 3 0 mL/hr triamcinolone acetonide 40 mg injection (KeNALog 40) 40 mg, INTRALESIONAL, ONCE, 1 dose, On 10/29/22 at 0830 Given 10/29/2022 8:30 AM EDT 40 mg Reason for Referral Specialty Diagnoses / Procedures Referred By Contac t Referred To Contact INTERNAL MEDICINE Diagnoses Acute left-sided low back pain with left-sided sciatica Procedures ESTABLISH WITH PRIMARY CARE NEW PATIENT OFFICE/OUTPATIENT NEW [facility] MDM 60-74 MINUTES Xiomara Thompson PA-C [address] [place] [address] [facility] [address] [place] [address] Referral ID Status Reason Start Date Expiration Date V isits Requested Visits Authorized [id number] Closed PCP Requested Referral 03/13/2023 03/12/2024 1 1 Specialty Diagnoses / Procedures Referred By Contac t Referred To Contact [facility] Diagnoses Acute left-sided low back pain with left-sided sciatica Procedures [facility] OFFICE/OUTPATIENT [facility] 60-74 MINUTES [facility] [address] [place] [address] Referral ID Status Reason Start Date Expiration Date Visits Requested Visits Authorized [id number] Authorized PCP Requested Referral 03/13/2023 03/12/2024 1 1 Specialty Diagnoses / Procedures Referred By Contac t Referred To Contact XR IMAGING Diagnoses Acute left-sided low back pain with left-sided sciatica Procedures XR LUMBAR GENERAL 3V AP/LAT/L5-S1 RADEX SPINE LUMBOSACRAL 2/3 VIEWS [facility] [address] [place] [address] Xr Imaging Referral ID Status Reason Start Date Expiration Date V isits Requested Visits Authorized [id number] Closed Auto-Generate d Referral 03/13/2023 04/11/2024 1 1 Specialty Diagnoses / Procedures Referred By Contac t Referred To Contact MR IMAGING Diagnoses Spinal stenosis of lumbar region without neurogenic claudication Procedures MRI LUMBAR SPINE WO IVCON MRI SPINAL CANAL LUMBAR W/O CONTRAST MATERIAL Rolando Eugene P, DO [address] [place] [address] Mr Imaging Referral ID Status Reason Start Date Expiration Date Visits Requested Visits Authorized [id number] Authorized Auto-Generat ed Referral 03/18/2023 04/16/2024 1 1 Specialty Diagnoses / Procedures Referred By Contac t Referred To Contact XR IMAGING Diagnoses Lumbar radiculopathy Procedures XR LUMBAR LIMITED 2V FLEX/EXT RADEX SPINE LUMBOSACRAL 2/3 VIEWS Rolando Eugene, DO [address] [place] [address] Xr Imaging Referral ID Status Reason Start Date Expiration Date V isits Requested Visits Authorized [id number] Closed Auto-Generate d Referral 03/13/2023 04/11/2024 1 1 Specialty Diagnoses / Procedures Referred By Contac t Referred To Contact MR IMAGING Diagnoses Spinal stenosis of lumbar region without neurogenic claudication Procedures MRI LUMBAR SPINE WO IVCON MRI SPINAL CANAL LUMBAR W/O CONTRAST MATERIAL Rolando Eugene, DO [address] [place] [address] [facility] Referral ID Status Reason Start Date Expiration Date V isits Requested Visits Authorized [id number] Closed Auto-Generate d Referral 03/18/2023 04/16/2024 1 1 Specialty Diagnoses / Procedures Referred By Contac t Referred To Contact CT IMAGING Diagnoses Nausea Colonic inertia Ileus following gastrointestinal surgery (HCC) Generalized abdominal pain Colon stricture (HCC) Procedures CT ABD/PEL W IVCON CT ABD & PELVIS W/CONTRAST Jesus Raza, [id number] [place] [address] [place] [address] Referral ID Status Reason Start Date Expiration Date Visits Requested Visits Authorized [id number] New Request Auto-Generat ed Referral 04/20/2024 05/20/2025 1 1 Specialty Diagnoses / Procedures Referred By Contac t Referred To Contact Gastroenterology Diagnoses Colonic inertia Ileus following gastrointestinal surgery (HCC) Procedures CONSULT TO GASTROENTEROLOGY Jesus Raza, ROHIT.FINANCE EXECUTIVE [address] [place] [address] Tom Campbell DO [address] [place] [address] Referral ID Status Reason Start Date Expiration Date Visits Requested Visits Authorized [id number] Ref Not Required PCP Requested Referral 04/29/2024 04/28/2025 1 1 Chief Complaint and Reason for Visit Chief Complaint Admit Date 4 M FU December 22, 2024 7:47a m LUQ PAIN January 17, 2025 5:39p m Reason for Visit Admit Date Diarrhea December 22, 2024 7:47a m Food allergy December 22, 2024 7:47a m LUQ pain December 22, 2024 7:47a m RLQ abdominal pain December 22, 2024 7:47a m Chief Complaint Admit Date 3 M FU August 18, 2024 8: 47am Reason for Visit Admit Date Diarrhea August 18, 2024 8: 47am Food allergy August 18, 2024 8: 47am Hepatomegaly August 18, 2024 8: 47am Chief Complaint Admit Date 4 M FU December 22, 2024 7:47a m Reason for Visit Admit Date Diarrhea December 22, 2024 7:47a m Food allergy December 22, 2024 7:47a m LUQ pain December 22, 2024 7:47a m RLQ abdominal pain December 22, 2024 7:47a m LUQ pain April 01, 2025 11 :51am RLQ abdominal pain April 01, 2025 11 :51am Additional Source Comments (unrecognized sect ion and content) No Status Records FoundNo Status Records FoundNo Status Records FoundNo Status Records FoundNo Status Records FoundNo Status Records FoundNo Status Records Found INFORMATION SOURCE (unrecogn ized section and content) DATE CREATED AUTHOR 01/04/2020 [facility] DATE CREATED AUTHOR AUTHOR'S ORGANIZ ATION 05/22/2021 [facility] DATE CREATED AUTHOR AUTHOR'S ORGANIZ ATION 06/09/2021 [facility] DATE CREATED AUTHOR AUTHOR'S ORGANIZ ATION 12/11/2022 [facility] DATE CREATED AUTHOR AUTHOR'S ORGANIZ ATION 04/23/2023 [facility] DATE CREATED AUTHOR AUTHOR'S ORGANIZ ATION 04/27/2025 [facility] DATE CREATED AUTHOR AUTHOR'S ORGANIZ ATION 04/27/2025 [facility] Source Comments (unrecognize d section and content) In the event this informatio n is protected by the Federal Confidentiality of Alcohol and Drug Abuse Patient Records regulations: The Federal rules restrict any use of the information to criminally investigate or prosecute any alcohol or drug abuse patient.[facility] the event this information is protected by the Federal Confidentiality of Alcohol and Drug Abuse Patient Records regulations: The Federal rules restrict any use of the information to criminally investigate or prosecute any alcohol or drug abuse patient.[facility] Hospital[facility] the event this information is protected by the Federal Confidentiality of Alcohol and Drug Abuse Patient Records regulations: The Federal rules restrict any use of the information to criminally investigate or prosecute any alcohol or drug abuse patient.[facility] Hospital[facility] the event this information is protected by the Federal Confidentiality of Alcohol and Drug Abuse Patient Records regulations: The Federal rules restrict any use of the information to criminally investigate or prosecute any alcohol or drug abuse patient.[facility] Hospital[facility] the event this information is protected by the Federal Confidentiality of Alcohol and Drug Abuse Patient Records regulations: The Federal rules restrict any use of the information to criminally investigate or prosecute any alcohol or drug abuse patient.[facility] Hospital[facility] the event this information is protected by the Federal Confidentiality of Alcohol and Drug Abuse Patient Records regulations: The Federal rules restrict any use of the information to criminally investigate or prosecute any alcohol or drug abuse patient.[facility] Hospital[facility] the event this information is protected by the Federal Confidentiality of Alcohol and Drug Abuse Patient Records regulations: The Federal rules restrict any use of the information to criminally investigate or prosecute any alcohol or drug abuse patient.[facility] Hospital[facility] the event this information is protected by the Federal Confidentiality of Alcohol and Drug Abuse Patient Records regulations: The Federal rules restrict any use of the information to criminally investigate or prosecute any alcohol or drug abuse patient.[facility] Hospital[facility] the event this information is protected by the Federal Confidentiality of Alcohol and Drug Abuse Patient Records regulations: The Federal rules restrict any use of the information to criminally investigate or prosecute any alcohol or drug abuse patient.[facility] Hospital[facility] the event this information is protected by the Federal Confidentiality of Alcohol and Drug Abuse Patient Records regulations: The Federal rules restrict any use of the information to criminally investigate or prosecute any alcohol or drug abuse patient.[facility] Hospital[facility] the event this information is protected by the Federal Confidentiality of Alcohol and Drug Abuse Patient Records regulations: The Federal rules restrict any use of the information to criminally investigate or prosecute any alcohol or drug abuse patient.[facility] Hospital[facility] the event this information is protected by the Federal Confidentiality of Alcohol and Drug Abuse Patient Records regulations: The Federal rules restrict any use of the information to criminally investigate or prosecute any alcohol or drug abuse patient.[facility] Hospital[facility] the event this information is protected by the Federal Confidentiality of Alcohol and Drug Abuse Patient Records regulations: The Federal rules restrict any use of the information to criminally investigate or prosecute any alcohol or drug abuse patient.[facility] HospitalIn the event this information is protected by the Federal Confidentiality of Alcohol and Drug Abuse Patient Records regulations: The Federal rules restrict any use of the information to criminally investigate or prosecute any alcohol or drug abuse patient.[facility] HospitalIn the event this information is protected by the Federal Confidentiality of Alcohol and Drug Abuse Patient Records regulations: The Federal rules restrict any use of the information to criminally investigate or prosecute any alcohol or drug abuse patient.[facility] HospitalIn the event this information is protected by the Federal Confidentiality of Alcohol and Drug Abuse Patient Records regulations: The Federal rules restrict any use of the information to criminally investigate or prosecute any alcohol or drug abuse patient.[facility] HospitalIn the event this information is protected by the Federal Confidentiality of Alcohol and Drug Abuse Patient Records regulations: The Federal rules restrict any use of the information to criminally investigate or prosecute any alcohol or drug abuse patient.[facility] HospitalIn the event this information is protected by the Federal Confidentiality of Alcohol and Drug Abuse Patient Records regulations: The Federal rules restrict any use of the information to criminally investigate or prosecute any alcohol or drug abuse patient.[facility] HospitalIn the event this information is protected by the Federal Confidentiality of Alcohol and Drug Abuse Patient Records regulations: The Federal rules restrict any use of the information to criminally investigate or prosecute any alcohol or drug abuse patient.[facility] HospitalIn the event this information is protected by the Federal Confidentiality of Alcohol and Drug Abuse Patient Records regulations: The Federal rules restrict any use of the information to criminally investigate or prosecute any alcohol or drug abuse patient.[facility] HospitalIn the event this information is protected by the Federal Confidentiality of Alcohol and Drug Abuse Patient Records regulations: The Federal rules restrict any use of the information to criminally investigate or prosecute any alcohol or drug abuse patient.[facility] HospitalIn the event this information is protected by the Federal Confidentiality of Alcohol and Drug Abuse Patient Records regulations: The Federal rules restrict any use of the information to criminally investigate or prosecute any alcohol or drug abuse patient.[facility] HospitalIn the event this information is protected by the Federal Confidentiality of Alcohol and Drug Abuse Patient Records regulations: The Federal rules restrict any use of the information to criminally investigate or prosecute any alcohol or drug abuse patient.[facility] HospitalIn the event this information is protected by the Federal Confidentiality of Alcohol and Drug Abuse Patient Records regulations: The Federal rules restrict any use of the information to criminally investigate or prosecute any alcohol or drug abuse patient.[facility] HospitalIn the event this information is protected by the Federal Confidentiality of Alcohol and Drug Abuse Patient Records regulations: The Federal rules restrict any use of the information to criminally investigate or prosecute any alcohol or drug abuse patient.[facility] HospitalIn the event this information is protected by the Federal Confidentiality of Alcohol and Drug Abuse Patient Records regulations: The Federal rules restrict any use of the information to criminally investigate or prosecute any alcohol or drug abuse patient.[facility] HospitalIn the event this information is protected by the Federal Confidentiality of Alcohol and Drug Abuse Patient Records regulations: The Federal rules restrict any use of the information to criminally investigate or prosecute any alcohol or drug abuse patient.[facility] HospitalIn the event this information is protected by the Federal Confidentiality of Alcohol and Drug Abuse Patient Records regulations: The Federal rules restrict any use of the information to criminally investigate or prosecute any alcohol or drug abuse patient.[facility] HospitalIn the event this information is protected by the Federal Confidentiality of Alcohol and Drug Abuse Patient Records regulations: The Federal rules restrict any use of the information to criminally investigate or prosecute any alcohol or drug abuse patient.[facility] HospitalIn the event this information is protected by the Federal Confidentiality of Alcohol and Drug Abuse Patient Records regulations: The Federal rules restrict any use of the information to criminally investigate or prosecute any alcohol or drug abuse patient.[facility] HospitalIn the event this information is protected by the Federal Confidentiality of Alcohol and Drug Abuse Patient Records regulations: The Federal rules restrict any use of the information to criminally investigate or prosecute any alcohol or drug abuse patient.[facility] HospitalIn the event this information is protected by the Federal Confidentiality of Alcohol and Drug Abuse Patient Records regulations: The Federal rules restrict any use of the information to criminally investigate or prosecute any alcohol or drug abuse patient.[facility] HospitalIn the event this information is protected by the Federal Confidentiality of Alcohol and Drug Abuse Patient Records regulations: The Federal rules restrict any use of the information to criminally investigate or prosecute any alcohol or drug abuse patient.[facility] HospitalIn the event this information is protected by the Federal Confidentiality of Alcohol and Drug Abuse Patient Records regulations: The Federal rules restrict any use of the information to criminally investigate or prosecute any alcohol or drug abuse patient.[facility] HospitalIn the event this information is protected by the Federal Confidentiality of Alcohol and Drug Abuse Patient Records regulations: The Federal rules restrict any use of the information to criminally investigate or prosecute any alcohol or drug abuse patient.[facility] HospitalIn the event this information is protected by the Federal Confidentiality of Alcohol and Drug Abuse Patient Records regulations: The Federal rules restrict any use of the information to criminally investigate or prosecute any alcohol or drug abuse patient.[facility] HospitalIn the event this information is protected by the Federal Confidentiality of Alcohol and Drug Abuse Patient Records regulations: The Federal rules restrict any use of the information to criminally investigate or prosecute any alcohol or drug abuse patient.[facility] HospitalIn the event this information is protected by the Federal Confidentiality of Alcohol and Drug Abuse Patient Records regulations: The Federal rules restrict any use of the information to criminally investigate or prosecute any alcohol or drug abuse patient.[facility] HospitalIn the event this information is protected by the Federal Confidentiality of Alcohol and Drug Abuse Patient Records regulations: The Federal rules restrict any use of the information to criminally investigate or prosecute any alcohol or drug abuse patient.[facility] HospitalIn the event this information is protected by the Federal Confidentiality of Alcohol and Drug Abuse Patient Records regulations: The Federal rules restrict any use of the information to criminally investigate or prosecute any alcohol or drug abuse patient.[facility] HospitalIn the event this information is protected by the Federal Confidentiality of Alcohol and Drug Abuse Patient Records regulations: The Federal rules restrict any use of the information to criminally investigate or prosecute any alcohol or drug abuse patient.[facility] HospitalIn the event this information is protected by the Federal Confidentiality of Alcohol and Drug Abuse Patient Records regulations: The Federal rules restrict any use of the information to criminally investigate or prosecute any alcohol or drug abuse patient.[facility] HospitalIn the event this information is protected by the Federal Confidentiality of Alcohol and Drug Abuse Patient Records regulations: The Federal rules restrict any use of the information to criminally investigate or prosecute any alcohol or drug abuse patient.[facility] HospitalIn the event this information is protected by the Federal Confidentiality of Alcohol and Drug Abuse Patient Records regulations: The Federal rules restrict any use of the information to criminally investigate or prosecute any alcohol or drug abuse patient.[facility] HospitalIn the event this information is protected by the Federal Confidentiality of Alcohol and Drug Abuse Patient Records regulations: The Federal rules restrict any use of the information to criminally investigate or prosecute any alcohol or drug abuse patient.[facility] HospitalIn the event this information is protected by the Federal Confidentiality of Alcohol and Drug Abuse Patient Records regulations: The Federal rules restrict any use of the information to criminally investigate or prosecute any alcohol or drug abuse patient.[facility] HospitalIn the event this information is protected by the Federal Confidentiality of Alcohol and Drug Abuse Patient Records regulations: The Federal rules restrict any use of the information to criminally investigate or prosecute any alcohol or drug abuse patient.[facility] HospitalIn the event this information is protected by the Federal Confidentiality of Alcohol and Drug Abuse Patient Records regulations: The Federal rules restrict any use of the information to criminally investigate or prosecute any alcohol or drug abuse patient.[facility] HospitalIn the event this information is protected by the Federal Confidentiality of Alcohol and Drug Abuse Patient Records regulations: The Federal rules restrict any use of the information to criminally investigate or prosecute any alcohol or drug abuse patient.[facility] HospitalIn the event this information is protected by the Federal Confidentiality of Alcohol and Drug Abuse Patient Records regulations: The Federal rules restrict any use of the information to criminally investigate or prosecute any alcohol or drug abuse patient.[facility] Reason for Visit (unrecogniz ed section and content) Reason Comments Established Patient abdominal pain Reason Comments Stoma Markings Reason Onset Date Comments Transition Of Care 12/20/2021 [facility] discharge 12-19-21- initial outreach Reason Comments Post-Op Visit Reason Onset Date Comments 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 01/11/2022 Reason Comments Consult Reason Onset Date Comments Transition Of Care 04/04/2022 [facility] initial o ut[facility]-dc'd from [facility] 04/03/22 Reason Comments Established Patient Discuss reversal [...] SPINAL CANAL LUMBAR W/O CONTRAST MATERIAL Rolando Eugene P, DO [address] [place] [address] [place] [id number] Referral ID Status Reason Start Date Expiration Date V isits Requested Visits Authorized [id number] Closed Auto-Generate d Referral 03/18/2023 04/16/2024 1 1 Reason Comments Cough Cough x 4 weeks Reason Comments Establish Care Reason Comments Results Reason Comments Abdominal Pain X 1 week Reason Comments Orders Reason Comments Cough Chest congestion, si nus congestion, increasing x 4 days Reason Comments Cough Cough, AYALA, bodyaches , diarrhea and fatigue x 1 day Care Teams (unrecognized sec tion and content) Optical Effects Line Up Person Relationship Specialty Start Date End Date Cassie Richardson MD [address] [place] [address] PCP - General Family Practice 08/20/21 Optical Effects Line Up Person Relationship Specialty Start Date End Date Cassie Richardson MD [address] [place] [address] PCP - General Family Practice 08/20/21 Optical Effects Line Up Person Relationship Specialty Start Date End Date Cassie Richardson MD [address] [place] [address] PCP - General Family Practice 08/20/21 Collin Le MD [address] [place] [address] [place] [address] Referring General Surgery 12/11/21 Collin Le MD [address] [place] [address] [place] [address] Home Care Physician General Surgery 12/11/21 Maile Caruso, RN [address] [place] [address] Plaster Helper Post Acute Care 12/20/21 Optical Effects Line Up Person Relationship Specialty Start Date End Date Cassie Richardson MD [address] [place] [address] PCP - General Family Practice 08/20/21 Collin Le MD [address] [place] [address] [place] [address] Referring General Surgery 12/11/21 Collin Le MD [address] [place] [address] [place] [address] Home Care Physician General Surgery 12/11/21 Maile Caruso, RADHA [address] [place] [address] Plaster Helper Post Acute Care 12/20/21 Optical Effects Line Up Person Relationship Specialty Start Date End Date Cassie Richardson MD [address] [place] [address] PCP - General Family Practice 08/20/21 Collin Le MD [address] [place] [address] [place] [address] Referring General Surgery 12/11/21 Collin Le MD [address] [place] [address] [place] [address] Home Care Physician General Surgery 12/11/21 Maile Caruso RN [address] [place] [address] Plaster Helper Post Acute Care 12/20/21 Optical Effects Line Up Person Relationship Specialty Start Date End Date Cassie Richardson MD [address] [place] [address] PCP - General Family Practice 08/20/21 Collin Le MD [address] [place] [address] [place] [address] Referring General Surgery 12/11/21 Collin Le MD [address] [place] [address] [place] [address] Home Care Physician General Surgery 12/11/21 Maile Caruso RN [address] [place] [address] Plaster Helper Post Acute Care 12/20/21 Optical Effects Line Up Person Relationship Specialty Start Date End Date Cassie Richardson MD [address] [place] [address] PCP - General Family Practice 08/20/21 Collin Le MD [address] [place] [address] [place] [address] Referring General Surgery 12/11/21 Collin Le MD [address] [place] [address] [place] [address] Home Care Physician General Surgery 12/11/21 Maile Caruso RN [address] [place] [address] Plaster Helper Post Acute Care 12/20/21 Optical Effects Line Up Person Relationship Specialty Start Date End Date Cassie Richardson MD [address] [place] [address] PCP - General Family Practice 08/20/21 Collin eL MD [address] [place] [address] [place] [address] Referring General Surgery 12/11/21 Collin Le MD [address] [place] [address] [place] [address] Home Care Physician General Surgery 12/11/21 Maile Caruso RN [address] [place] [address] Plaster Helper Post Acute Care 12/20/21 Optical Effects Line Up Person Relationship Specialty Start Date End Date Cassie Richardson MD [address] [place] [address] PCP - General Family Practice 08/20/21 Collin Le MD [address] [place] [address] [place] [address] Referring General Surgery 12/11/21 Collin Le MD [address] [place] [address] [place] [address] Home Care Physician General Surgery 12/11/21 Maile Caruso RN [address] [place] [address] Plaster Helper Post Acute Care 12/20/21 Optical Effects Line Up Person Relationship Specialty Start Date End Date Cassie Richardson MD [address] [place] [address] PCP - General Family Practice 08/20/21 Collin Le MD [address] [place] [address] [place] [address] Referring General Surgery 12/11/21 Collin Le MD [address] [place] [address] [place] [address] Home Care Physician General Surgery 12/11/21 Maile Caruso, RADHA [address] [place] [address] Plaster Helper Post Acute Care 12/20/21 Optical Effects Line Up Person Relationship Specialty Start Date End Date Cassie Richardson MD [address] [place] [address] PCP - General Family Medicine 08/20/21 Collin Le MD [address] [place] [address] [place] [address] Referring General Surgery 12/11/21 Collin Le MD [address] [place] [address] [place] [address] Home Care Provider General Surgery 12/11/21 Maile Caruso RN [address] [place] [address] Plaster Helper Post Acute Care 12/20/21 Optical Effects Line Up Person Relationship Specialty Start Date End Date Cassie Richardson MD [address] [place] [address] PCP - General Family Medicine 08/20/21 Collin Le MD [address] [place] [address] [place] [address] Referring General Surgery 12/11/21 Collin Le MD [address] [place] [address] [place] [address] Home Care Provider General Surgery 12/11/21 Maile Caruso RN [address] [place] [address] Plaster Helper Post Acute Care 12/20/21 Optical Effects Line Up Person Relationship Specialty Start Date End Date Cassie Richardson MD [address] [place] [address] PCP - General Family Medicine 08/20/21 Collin Le MD [address] [place] [address] [place] [address] Referring General Surgery 12/11/21 Collin Le MD [address] [place] [address] [place] [address] Home Care Provider General Surgery 12/11/21 Maile aCruso RN [address] [place] [address] Plaster Helper Post Acute Care 12/20/21 Optical Effects Line Up Person Relationship Specialty Start Date End Date Cassie Richardson MD [address] [place] [address] PCP - General Family Medicine 08/20/21 Collin Le MD [address] [place] [address] [place] [address] Referring General Surgery 12/11/21 Collin Le MD [address] [place] [address] [place] [address] Home Care Provider General Surgery 12/11/21 Maile Caruso RN [address] [place] [address] Plaster Helper Post Acute Care 12/20/21 Optical Effects Line Up Person Relationship Specialty Start Date End Date Cassie Richardson MD [address] [place] [address] PCP - General Family Medicine 08/20/21 Collin Le MD [address] [place] [address] [place] [address] Referring General Surgery 12/11/21 Collin Le MD [address] [place] [address] [place] [address] Home Care Provider General Surgery 12/11/21 Maile Caruso RN [address] [place] [address] Plaster Helper Post Acute Care 12/20/21 Optical Effects Line Up Person Relationship Specialty Start Date End Date Cassie Richardson MD [address] [place] [address] PCP - General Family Medicine 08/20/21 Collin Le MD [address] [place] [address] [place] [address] Referring General Surgery 12/11/21 Collin Le MD [address] [place] [address] [place] [address] Home Care Provider General Surgery 12/11/21 Maile Caruso RN [address] [place] [address] Plaster Helper Post Acute Care 12/20/21 Optical Effects Line Up Person Relationship Specialty Start Date End Date Cassie Richardson MD [address] [place] [address] PCP - General Family Medicine 08/20/21 Collin Le MD [address] [place] [address] [place] [address] Referring General Surgery 12/11/21 Collin Le MD [address] [place] [address] [place] [address] Home Care Provider General Surgery 12/11/21 Maile Caruso RN [address] [place] [address] Plaster Helper Post Acute Care 12/20/21 Optical Effects Line Up Person Relationship Specialty Start Date End Date Cassie Richardson MD [address] [place] [address] PCP - General Family Medicine 08/20/21 Collin Le MD [address] [place] [address] [place] [address] Referring General Surgery 12/11/21 Collin Le MD [address] [place] [address] [place] [address] Home Care Provider General Surgery 12/11/21 Maile Caruso RN [address] [place] [address] Plaster Helper Post Acute Care 12/20/21 Optical Effects Line Up Person Relationship Specialty Start Date End Date Cassie Richardson MD [address] [place] [address] PCP - General Family Medicine 08/20/21 Collin Le MD [address] [place] [address] [place] [address] Referring General Surgery 12/11/21 Collin Le MD [address] [place] [address] [place] [address] Home Care Provider General Surgery 12/11/21 Maile Caruso RN [address] [place] [address] Plaster Helper Post Acute Care 12/20/21 Optical Effects Line Up Person Relationship Specialty Start Date End Date Collin Le MD [address] [place] [address] [place], [place] [id number] Referring General Surgery 12/11/21 Collin Le MD [address] [place] [address] [place] [address] Home Care Provider General Surgery 12/11/21 Maile Caruso RN [address] [place] [address] Plaster Helper Post Acute Care 12/20/21 Optical Effects Line Up Person Relationship Specialty Start Date End Date Jesus Raza APRN.FINANCE EXECUTIVE [address] [place] [address] PCP - General Family Medicine 03/13/23 Collin Le MD [address] [place] [address] [place] [address] Referring General Surgery 12/11/21 Collin Le MD [address] [place] [address] [place], [place] [address] Home Care Provider General Surgery 12/11/21 Maile Caruso RN [address] [place], [place] [address] Plaster Helper Post Acute Care 12/20/21 Daren Dimas MD [address] [place] [address] Gastroenterology 12/20/22 Optical Effects Line Up Person Relationship Specialty Start Date End Date Jesus Raza APRN.FINANCE EXECUTIVE [address] [place] [address] PCP - General Family Medicine 03/13/23 Collin Le MD [address] [place] [address] [place] [address] Referring General Surgery 12/11/21 Collin Le MD [address] [place] [address] [place], [place] [address] Home Care Provider General Surgery 12/11/21 Maile Caruso RN [address] [place], [place] [address] Plaster Helper Post Acute Care 12/20/21 Daren Dimas MD [address] [place], [place] [phone] Gastroenterology 12/20/22 Optical Effects Line Up Person Relationship Specialty Start Date End Date Jesus Raza APRN.CNP [address] [place] [address] PCP - General Family Medicine 03/13/23 Collin Le MD [address] [place] [address] [place] [address] Referring General Surgery 12/11/21 Collin Le MD [address] [place] [address] [place] [address] Home Care Provider General Surgery 12/11/21 Maile Caruso RN [address] [place], [place] [address] Plaster Helper Post Acute Care 12/20/21 Daren Dimas MD [address] [place], [place] [id number] Gastroenterology 12/20/22 Optical Effects Line Up Person Relationship Specialty Start Date End Date Jesus Raza, COMMUNICATION MANAGER.FINANCE EXECUTIVE [address] [place], [place] [address] PCP - General Family Medicine 03/13/23 Collin Le MD [address] [place] [address] [place], [place] [phone] Referring General Surgery 12/11/21 Collin Le MD [address] [place] [address] [place], [place] [address] Home Care Provider General Surgery 12/11/21 Maile Caruso RN [address] [place], [place] [address] Plaster Helper Post Acute Care 12/20/21 Daren Dimas MD [address] [place] [address] Gastroenterology 12/20/22 Optical Effects Line Up Person Relationship Specialty Start Date End Date Jesus Raza, COMMUNICATION MANAGER.FINANCE EXECUTIVE [facility] [place] [address] PCP - General Family Medicine 03/13/23 Collin Le MD [address] [place] [address] [place], [place] [phone] Referring General Surgery 12/11/21 Collin Le MD [address] [place] [address] [place], [place] [phone] Home Care Provider General Surgery 12/11/21 Maile Caruso RN [address] [place], [place] [address] Plaster Helper Post Acute Care 12/20/21 Daren Dimas MD [address] [place], [place] [phone] Gastroenterology 12/20/22 Optical Effects Line Up Person Relationship Specialty Start Date End Date Jesus Raza APRN.FINANCE EXECUTIVE [facility] [place], [place] [address] PCP - General Family Medicine 03/13/23 Collin Le MD [address] [place] [address] [place], [place] [phone] Referring General Surgery 12/11/21 Collin Le MD [address] [place] [address] [place], [place] [phone] Home Care Provider General Surgery 12/11/21 Maile Caruso, RN [address] [place], [place] 884[address] Plaster Helper Post Acute Care 12/20/21 Daren Dimas MD [address] [place], [place] [phone] Gastroenterology 12/20/22 Optical Effects Line Up Person Relationship Specialty Start Date End Date Jesus Raza APRN.FINANCE EXECUTIVE [address] [place] [address] PCP - General Family Medicine 03/13/23 Collin Le MD [address] [place] [address] [place], [place] [phone] Referring General Surgery 12/11/21 Collin Le MD [address] [place] [address] [place] [address] Home Care Provider General Surgery 12/11/21 Maile Caruso, RN [address] [place], [place] [address] Plaster Helper Post Acute Care 12/20/21 Daren Dimas MD [address] [place] [address] Gastroenterology 12/20/22 Optical Effects Line Up Person Relationship Specialty Start Date End Date Jesus Raza APRN.FINANCE EXECUTIVE [address] [place] [address] PCP - General Family Medicine 03/13/23 Collin Le MD [address] [place] [address] [place] [address] Referring General Surgery 12/11/21 Collin Le MD [address] [place] [address] [place] [address] Home Care Provider General Surgery 12/11/21 Maile Caruso (Rn), RN [address] [place] [address] [place] [address] Plaster Helper Post Acute Care 12/20/21 Daren Dimas MD [address] [place] [address] Gastroenterology 12/20/22 Optical Effects Line Up Person Relationship Specialty Start Date End Date Jesus Raza, ROHIT.FINANCE EXECUTIVE [address] [place] [address] PCP - General Family Medicine 03/13/23 oCllin Le MD [address] [place] [address] [place] [address] Referring General Surgery 12/11/21 Collin Le MD [address] [place] [address] [place] [address] Home Care Provider General Surgery 12/11/21 Maile Caruso (Rn), RN [address] [place] [address] [place] [address] Plaster Helper Post Acute Care 12/20/21 Daren Dimas MD [address] [place], [place] [phone] Gastroenterology 12/20/22 Optical Effects Line Up Person Relationship Specialty Start Date End Date Jesus Raza APRN.FINANCE EXECUTIVE [address] [place] [address] PCP - General Family Medicine 03/13/23 Collin Le MD [address] [place] [address] [facility] [address] [place] [address] Referring General Surgery 12/11/21 Collin Le MD [address] [facility] [address] [place] [address] Home Care Provider General Surgery 12/11/21 Maile Caruso (Rn), RN [address] [facility] [address] [place] [address] Plaster Helper Post Acute Care 12/20/21 Daren Dimas MD [address] [place], [place] [id number] Gastroenterology 12/20/22 Optical Effects Line Up Person Relationship Specialty Start Date End Date Jesus Raza APRN.FINANCE EXECUTIVE [address] [place] [id number] PCP - General Family Medicine 03/13/23 Collin Le MD [address] [facility] [address] [place], [place] [phone] Referring General Surgery 12/11/21 Collin Le MD [address] [facility] [address] [place], [place] [id number] Home Care Provider General Surgery 12/11/21 Maile Caruso (Rn), RN [address] [facility] [address] [place] [address] Plaster Helper Post Acute Care 12/20/21 Daren Dimas MD [address] [place], [place] [phone] Gastroenterology 12/20/22 Optical Effects Line Up Person Relationship Specialty Start Date End Date Jesus Raza APRN.FINANCE EXECUTIVE [address] [place] [address] PCP - General Family Medicine 03/13/23 Collin Le MD [address] [facility] [address] [place] [address] Referring General Surgery 12/11/21 Collin Le MD [address] [facility] [address] [place], [place] [phone] Home Care Provider General Surgery 12/11/21 Maile Caruso (Rn), RN [address] [facility] [address] [place] [address] Plaster Helper Post Acute Care 12/20/21 Daren Dimas MD [address] [facility] [place], [place] [id number] Gastroenterology 12/20/22 Optical Effects Line Up Person Relationship Specialty Start Date End Date Jesus Raza, ROHIT.FINANCE EXECUTIVE [address] [place] [address] PCP - General Family Medicine 03/13/23 Collin Le MD [address] [place] [address] Referring General Surgery 12/11/21 Collin Le MD [address] [place] [address] Home Care Provider General Surgery 12/11/21 Maile Caruso (Rn), RN [address] [facility] [address] [place] [address] Plaster Helper Post Acute Care 12/20/21 Daren Dimas MD [address] [place] [address] Gastroenterology 12/20/22 Optical Effects Line Up Person Relationship Specialty Start Date End Date Jesus Raza, COMMUNICATION MANAGER.FINANCE EXECUTIVE [address] [place] [address] PCP - General Family Medicine 03/13/23 Collin Le MD [address] [place] [address] Referring General Surgery 12/11/21 Collin Le MD [address] [facility] [address] [place] [address] Home Care Provider General Surgery 12/11/21 Maile Caruso (Rn), RN [address] [place] [address] [place] [address] Plaster Helper Post Acute Care 12/20/21 Daren Dimas MD [address] [place] [address] Gastroenterology 12/20/22 Optical Effects Line Up Person Relationship Specialty Start Date End Date Jesus Raza APRN.FINANCE EXECUTIVE [address] [place] [address] PCP - General Family Medicine 03/13/23 Collin Le MD [address] [facility] [place] [address] Referring General Surgery 12/11/21 Collin Le MD [address] [facility] [address] [place] [address] Home Care Provider General Surgery 12/11/21 Maile Caruso (Rn), RN [address] [facility] [address] [place] [address] Plaster Helper Post Acute Care 12/20/21 Daren Dimas MD [address] [place] [address] Gastroenterology 12/20/22 Optical Effects Line Up Person Relationship Specialty Start Date End Date Collin Le MD [address] [place] [address] Referring General Surgery 12/11/21 Collin Le MD [address] [place] [address] Home Care Provider General Surgery 12/11/21 Maile Caruso (Rn), RN [address] [place] [address] Plaster Helper Post Acute Care 12/20/21 Daren Dimas MD [address] [place] [address] Gastroenterology 12/20/22 Optical Effects Line Up Person Relationship Specialty Start Date End Date Collin Le MD [address] [place] [address] Referring General Surgery 12/11/21 Collin Le MD [address] [place] [address] [place], [place] [phone] Home Care Provider General Surgery 12/11/21 Maile Caruso (Rn), RN [address] [place] [address] [place] [address] Plaster Helper Post Acute Care 12/20/21 Optical Effects Line Up Person Relationship Specialty Start Date End Date Sebastián Rhodes [address] [facility] [place] [id number] PCP - General Family Medicine 06/03/19 08/19/21 Team Status: Active Member Role Status Dates Dr. Rosana Skinner MD Family Provider Active Mallory Mckeon MD Primary Care Provider Active Team Status: Inactive Member Role Status Dates [employer] Primary Care Provider Active Start: August 18, 2024 End: August 18, 2024 [employer] Referring Provider Active Start: August 18, 2024 End: August 18, 2024 Dr. Tom Campbell DO Attending Provider Active Start: August 18, 2024 End: August 18, 2024 Team Status: Inactive Member Role Status Dates Mallory Mckeon MD Primary Care Provider Active St art: October 19, 2024 End: October 19, 2024 Mallory Mckeon MD Attending Provider Active Start : October 19, 2024 End: October 19, 2024 Mallory Mckeon MD Referring Provider Active Start : October 19, 2024 End: October 19, 2024 Team Status: Active Member Role Status Constantin Mckeon MD Primary Care Provider Active Team Status: Inactive Member Role Status Constantin Raza SALES SECRETARY-C Referring Provider Active Start: December 22, 2024 End: December 22, 2024 Zhane Hollis SALES SECRETARY-C Attending Provider Active Start: December 22, 2024 End: December 22, 2024 Mallory Mckeon MD Primary Care Provider Active St art: December 22, 2024 End: December 22, 2024 Team Status: Inactive Member Role Status Constantin Mckeon MD Primary Care Provider Active St art: January 17, 2025 End: January 17, 2025 Zhane Hollis SALES SECRETARY-C Attending Provider Active Start: January 17, 2025 End: January 17, 2025 Zhane Hollis SALES SECRETARY-C Referring Provider Active Start: January 17, 2025 End: January 17, 2025 Team Status: Active Member Role/Relationship Status Constantin Mckeon MD Primary Care Provider Active Team Status: Inactive Member Role/Relationship Status Constantin Raza SALES SECRETARY-C Referring Provider Active Start: December 22, 2024 End: December 22, 2024 Zhane Hollis SALES SECRETARY-C Attending Provider Active Start: December 22, 2024 End: December 22, 2024 Mallory Mckeon MD Primary Care Provider Active St art: December 22, 2024 End: December 22, 2024 Team Status: Inactive Member Role/Relationship Status Constantin Mckeon MD Primary Care Provider Active St art: January 17, 2025 End: January 17, 2025 Zhane Hollis SALES SECRETARY-C Attending Provider Active Start: January 17, 2025 End: January 17, 2025 Zhane Hollis SALES SECRETARY-C Referring Provider Active Start: January 17, 2025 End: January 17, 2025 Team Status: Inactive Member Role/Relationship Status Constantin Mckeon MD Primary Care Provider Active St art: April 01, 2025 End: April 01, 2025 Mallory Mckeon MD Referring Provider Active Start : April 01, 2025 End: April 01, 2025 Dr. Tom Campbell , DO Attending Provider Active Start: April 01, 2025 End: [place] 22nd, 2025 Team Status: Active Member Role/Relationship Status Dates Mallory Mckeon MD Primary Care Provider Active St art: April 01, 2025 Mallory Mckeon MD Referring Provider Active Start : April 01, 2025 Dr. Tom Campbell DO Attending Provider Active Start: April 01, 2025 Dr. Tom Campbell , DO Other Provider Active St art: April 01, 2025 Optical Effects Line Up Person Relationship Specialty Start Date End Date Collin Le MD [address] [place] [address] Referring General Surgery 12/11/21 Collin Le MD [address] [place] [address] Home Care Provider General Surgery 12/11/21 Maile Caruso (Rn), RN [address] [address] [facility] [address] [place] [address] Plaster Helper Post Acute Care 12/20/21 Daren Dimas MD [address] [place] [address] Gastroenterology 12/20/22 Goals (unrecognized section and content) Goals may be documented in a n alternate sectionGoals may be documented in an alternate sectionGoals may be documented in an alternate section FOR RECORDS PERTAINING TO PATIENTS WHO ARE [...] BE BASED ON THE PRIMARY CLINICAL RECORDS. [employer] [facility]. provides no warranty or guarantee of the accuracy or completeness of information in this document.
[2025-05-29] MEDS: 0.9% Normal Saline (1000mL) 1,000 ML 125 ML IV ×2 (11:11→16:15)
[2025-05-29 12:57] LABS: Mucous, Urine 0 SEEN /hpf (<or=2+); Red Blood Cells-Urine 0 SEEN /hpf (0-5); Squamous Epithelial Cells - UA 0 SEEN /hpf (0-5)
[2025-05-29 12:58] LABS: Color, Urine Yellow (Yellow); Glucose, Dipstick Normal (Normal); Ketone-Dipstick 5 mg/dl (Negative); Leukocyte Esterase-Dipstick Negative /ul (Negative); Nitrite-Dipstick Negative (Negative); Occult Blood-Urine Negative /ul (Negative); Protein-Dipstick 15 mg/dl (Negative); Specific Gravity, Urine 1.010 (1.002-1.030); Urine Bilirubin Dipstick Negative (Negative)
[2025-05-29] MEDS: Piperacil/Tazobactam 4.5 GM in 0.9% Normal Saline (100mL MB+) 100 ML IV (14:01)
--- OUTSIDE RECORDS SUMMARY | 2025-05-29 14:28 | XMS RPT_ITS | CCD ---
Author Organization [facility] Care Team Providers Care Spanish Professor Name Role Phone Unavailable Primary Care Provider UnavailCassie Ricketts MD Primary Care Provider Rey DALEY, Collin Unavailable Rey DALEY, Collin Unavailable Shady GARCIA, Maile Unavailable Cassie Richardson MD Primary Care Provider [phone] Rey DALEY, Collin Unavailable Rey DALEY, Collin Unavailable [phone] Shady GARCIA, Maile Unavailable Cassie Richardson MD Primary Care Provider [phone] Rey DALEY, Collin Unavailable [phone] Rey DALEY, Collin Unavailable Shady GARCIA, Maile Unavailable LINETTE LAMB DO Attending Unavailable ROGERIO WILKINSON DO Admitting Unavailabl e AA NO PCP, NO PCP Primary Care Unavailable STEVEN DALEY, BRENDA Consulting Unavailable Daren Dimas MD Unavailable Carlyle BEE.Jesus MORALES Primary Care Provider Shady GARCIA, Maile Unavailable CASSIE RICHARDSON Primary Care Unavailable MIRIAM AIJAShira Attending Unavailable IVORY DIMASJAShira Referring Unavailable CASSIE RICHARDSON Primary Care Unavailable MIRIAM AIJAZ Attending Unavailable MIRIAM AIJAZ Referring Unavailable COLLIN LE Attending Unavailabl e BRANDSTETTER, COLLIN Referring Unavailabl e NANCIE, CASSIE JED Primary Care Unavailable BRANDSTETTER, COLLIN Referring Unavailabl e NANCIE, CASSIE JED Primary Care Unavailable BRANDSTETTER, COLLIN Attending Unavailabl e NANCIE, CASSIE JED Primary Care Unavailable JABIER, ROLANDO P Attending Unavailable KNOBLE, JESUS Primary Care Unavailable JABIER, ROLANDO P Attending Unavailable JAIBER, ROLANDO P Referring Unavailable KNOBLE, JESUS Primary Care Unavailable KNOBLE, JESUS Primary Care Unavailable JABIER, ROLANDO P Referring Unavailable DAREN DIMAS Attending Unavailable MIRIAM, DAREN Referring Unavailable BRANDSTETTER, COLLIN Attending Unavailabl e SUTTONKINZA SANDOVAL Referring Unavailable NANCIE, CASSIE JED Primary Care Unavailable BRANDSTETTER, COLLIN Referring Unavailabl e NANCIE, CASSIE JED Primary Care Unavailable Shady RN, Maile (Rn) Unavailable Unavaila ble Carlyle AIR CONDITIONING INSTALLER SUPERVISOR.ANDREW, Jesus Primary Care Provider Sebastián Gibbons Primary Care Provider Carlyle METAPHYSICIAN-C, Jesus Primary Care Provider Carlyle METAPHYSICIAN-C, Jesus Referring Provider Dr. Tom Campbell DO Attending Provider Mallory Mckeon MD Primary Care Provider Mallory Mckeon MD Attending Provider Mallory Mckeon MD Referring Provider Carlyle METAPHYSICIAN-C, Jesus Referring Provider Bunny METAPHYSICIAN-CZhane Attending Provider Bunny METAPHYSICIAN-CZhane Referring Provider Mallory Mckeon MD Primary Care Provider Mallory Mckeon MD Referring Provider Dr. Tom Campbell DO Attending Provider Dr. Tom Campbell DO Other Provider Daren Dimas MD Unavailable Jesus Raza Primary Care Unavailable Tom Campbell Attending Unavailable Kncorky, Jesus Referring Unavailable Friend, Tom Consulting Unavailable Friend, Tom Attending Unavailable Mike, Chalon Referring Unavailable Mike, Chalon Primary Care Unavailable Friend, Tom Attending Unavailable Mike, Chalon Primary Care Unavailable Mike, Chalon Referring Unavailable Friend, Tom Referring Unavailable Knoble, Jesus Primary Care Unavailable Friend, Tom Attending Unavailable Friend, Tom Attending Unavailable Friend, Tom Referring Unavailable Knoble, Jesus Primary Care Unavailable Friend, Tom Attending Unavailable Friend, Tom Referring Unavailable Knoble, Jesus Primary Care Unavailable Zhane Hollis Attending Unavailable BunnyZhane Referring Unavailable Mike, Chalon Primary Care Unavailable Mike, Chalon Primary Care Unavailable Mike, Chalon Attending Unavailable Mike, Chalon Referring Unavailable Friend, Tom Attending Unavailable Knoble, Jesus Referring Unavailable Knoble, Jesus Primary Care Unavailable Zhane Hollis Attending Unavailable Knoble, Jesus Referring Unavailable Mike, Chalon Primary Care Unavailable HENRRY HAIDER Attending Unavailable KNOBLE, JESUS Primary Care Unavailable Allergies Allergy Classification Reported Allergen(s) Allergy Type Date of Onset Reaction(s) Facility (20 sources) Adhesive Tape-Silicones; Translations: [ADHESIVE TAPE-SILICONES] Drug Allergy 09-10-2019 Other: See Comments [facility] (20 sources) Adhesive agent; Translations: [ADHESIVE] Drug Allergy 09-26-2022 Other: See Comments [facility] (1 source) Adhesive agent Drug Allergy 09-26-2022 Other: See Comments [facility] Medications Current Medications Medication Drug Class(es) Dates Sig (Normalized) Sig (Original) [id number] 200 actuat albuterol 0.09 mg/actuat metered dose inhaler (1 source) beta2-Adrenergic Agonist Start: 04-26-2025 take 2 puff(s) by inhalation every four hours as needed for wheezing albuterol HFA (PROVENTIL HFA, VENTOLIN HFA) 90 mcg/actuation inhaler Indications: Viral URI with cough , SERVIN (dyspnea on exertion) Inhale 2 puffs as instructed every 4 hours as needed for wheezing/shortness of breath. 6.7 g 04/26/2025 Active cetirizine hydrochloride 10 mg oral tablet (1 source) Histamine-1 Receptor Antagonist Start: 03-30-2025 take 1 tablet by mouth once daily Cetirizine (24hour Allergy) 10 mg tablet Active 10 mg PO DAILY March 30, 2025 12:00am doxycycline hyclate 100 mg oral tablet (1 source) Tetracycline-cla ss Drug Start: 07-17-2023 End: 07-27-2023 take 1 tablet by mouth twice daily doxycycline (VIBRA-TABS) 100 mg tablet Indications: Acute cough Take 1 tablet by mouth two times a day for 10 days. 20 tablet 0 07/17/2023 07/27/2023 Active Comment on above: Take 1 tablet by abhishek th two times a day for 10 days. enteric contrast (will be provided with radiology test) (2 sources) Start: 04-20-2024 End: 04-21-2024 enteric contrast (will be provided with radiology test) Indications: Nausea , Colonic inertia , Ileus following gastrointestinal surgery (HCC) , Generalized abdominal pain , Colon stricture (HCC) For CT ABD/PEL W IVCON Routine order Administer, As Directed One Time Only, via Oral, Rectal, both Oral and Rectal, Enteric Tube, Stoma or Indwelling Catheter, Enteric Contrast as designated per enteric contrast guidelines 1 Each 04/20/2024 04/21/2024 Active Inhalational Spacing Device (1 source) Start: 04-26-2025 End: 04-26-2025 Inhalational Spacing Device Indications: Viral URI with cough , SERVIN (dyspnea on exertion) 1 device one time only for 1 dose. 1 each 04/26/2025 04/26/2025 Active iv contrast (will be provided with radiology test) (2 sources) Start: 04-20-2024 End: 04-21-2024 iv contrast (will be provided with radiology test) Indications: Nausea , Colonic inertia , Ileus following gastrointestinal surgery (HCC) , Generalized abdominal pain , Colon stricture (HCC) CT ABD/PEL -Inject, intravenously, once for 1 dose.No IV access, insert saline lock prior to the beginning of sedation, infusion, injection of imaging exam. Discontinue saline lock post exam. If Pt. has a central line or IVAD, may access for administration according to line specific nursing protocol. Once exam is complete flush line and de-access according to line specific nursing protocol in the CT contrast administration guidelines link. 1 Each 04/20/2024 04/21/2024 Active Completed/Discontinued Medications Medication Drug Class(es) Dates Sig (Normalized) Sig (Original) acetaminophen 325 mg oral tablet (16 sources) End: 04-03-2022 take 2 tablets by mouth every six hours as needed acetaminophen (TYLENOL) 325 mg tablet Take 650 mg by mouth every 6 hours as needed for Pain. 04/03/2022 Discontinued Comment on above: Take 650 mg by mouth every 6 hours as needed for Pain. acetaminophen 325 mg / oxyCODONE hydrochloride 5 mg oral tablet (3 sources) Opioid Agonist End: 08-20-2021 take 1 tablet by mouth every eight hours as needed oxyCODONE-acetaminop hen (PERCOCET) 5-325 mg tablet Take 1 tablet by mouth every 8 hours as needed for Pain. 08/20/2021 Discontinued cyclobenzaprine hydrochloride 10 mg oral tablet (3 sources) Muscle Relaxant Start: 03-05-2023 End: 03-18-2023 take 1 tablet by mouth three times daily as needed for muscle spasms cyclobenzaprine (FLEXERIL) 10 mg tablet Indications: Left sided sciatica Take 1 tablet by mouth three times daily as needed for muscle spasm. 15 tablet 03/05/2023 03/18/2023 Discontinued Comment on above: Take 1 tablet by [facility] three times daily as needed for muscle spasm. loperamide hydrochloride 2 mg oral capsule (20 sources) Opioid Agonist Start: 12-31-2021 End: 03-18-2023 take 1 capsule by mouth three times daily loperamide (IMODIUM) 2 mg cap(s) Take 1 capsule by mouth three times daily. 120 capsule 2 12/31/2021 03/18/2023 Discontinued Start: 12-21-2021 End: 12-31-2021 take 1 tablet by mouth every six hours as needed loperamide HCl (IMODIUM A-D) 2 mg tab Take 2 mg by mouth four times daily as needed (diarrhea). If output is > 1200ml; do not exceed 8 tablets in 24hr; needs to call the MD 0 12/21/2021 12/31/2021 Discontinued Comment on above: Take 2 mg by mouth f our times daily as needed (diarrhea). If output is > 1200ml; do not exceed 8 tablets in 24hr; needs to call the MD Take 1 capsule by mo [facility] three times daily. metroNIDAZOLE 500 mg oral tablet (8 sources) Nitroimidazole Antimicrobial Start: 11-27-19 End: 01-01-20 metroNIDAZOLE (FLAGYL) 500 mg tablet MULTIVITAMIN ORAL (20 sources) End: 03-18-20 23 take 1 tablet by mouth once daily MULTIVITAMIN ORAL Take 1 tablet by mouth once daily. 03/18/2023 Discontinued End: 03-18-2023 take 1 tablet by mouth once daily MULTIVITAMIN ORAL Take 1 tablet by mouth once daily. 0 03/18/2023 Discontinued take 1 tablet by abhishek once daily MULTIVITAMIN ORAL Take 1 tablet by mouth once daily. 0 Active Comment on above: Take 1 tablet by abhishek th once daily. neomycin sulfate 500 mg oral tablet (8 sources) Aminoglycoside Antibacterial Start: 2 End: 2 neomycin 500 mg tablet ondansetron 4 mg oral tablet (20 sources) Serotonin-3 Receptor Antagonist Start: 3 End: 3 take 1 tablet by mouth every eight hours as needed ondansetron (ZOFRAN) 4 mg tablet Take 1 tablet by mouth every 8 hours as needed for nausea/vomiting for up to 7 days. 21 tablet 12/03/2022 12/10/2022 Start: 04-03-2022 End: 03-18-2023 take 1 tablet by mouth every eight hours as needed ondansetron orally disintegrating (ZOFRAN ODT) 4 mg disintegrating tablet Take 1 tablet by mouth every 8 hours as needed for nausea/vomiting. 12 tablet 04/03/2022 03/18/2023 Discontinued Comment on above: Take 1 tablet by abhishek every 8 hours as needed for nausea/vomiting. OTC PRODUCT (12 sources) OTC PRODUCT Thc/ cbd cookie daily for pain 0 Active Comment on above: Thc/cbd cookie daily for pain polyethylene glycol 3350 26273 mg powder for oral solution (8 sources) Osmotic Laxative End: 12-31-2021 polyethylene glycol 3350 (MIRALAX) 17 gram packet Take 17 g by mouth twice daily. Dissolve dose in 4 - 8 ounces of liquid and take as directed. Uses 1-2 times daily as needed 0 12/31/2021 Discontinued Comment on above: Take 17 g by mouth t wice daily. Dissolve dose in 4 - 8 ounces of liquid and take as directed. Uses 1-2 times daily as needed predniSONE 10 mg oral tablet (4 sources) Start: 07-17-2023 End: 09-26-2023 predniSONE (DELTASONE) 10 mg tablet Indications: Acute cough Take 4 tabs daily for 3 days, then 2 tabs daily for 3 days, then 1 tab daily for 3 days with food. 21 tablet 0 07/17/2023 09/26/2023 Discontinued Start: 03-05-2023 End: 03-17-2023 predniSONE (DELTASONE) 10 mg tablet Indications: Left sided sciatica Take 6 tabs for 3 days, then 4 tabs for 3 days, then 2 tabs for 3 days then 1 tab for 3 days with food. 39 tablet 03/05/2023 03/17/2023 Comment on above: Take 6 tabs for 3 da ys, then 4 tabs for 3 days, then 2 tabs for 3 days then 1 tab for 3 days with food. Take 4 tabs daily fo r 3 days, then 2 tabs daily for 3 days, then 1 tab daily for 3 days with food. promethazine hydrochloride 25 mg oral tablet (8 sources) Phenothiazine Start: 11-26-2021 End: 12-31-2021 promethazine (PHENERGAN) 25 mg tablet Problems Active Problems Problem Classification Problem Date Documented Da te Episodic/Chronic Abdominal hernia (2 sources) Hernia of anterior abdominal wall; Translations: [Ventral hernia without obstruction or gangrene] Episodic Abdominal pain (20 sources) Generalized abdominal pain; Translations: [Generalized abdominal pain] Onset: 1 05-29-2021 Episodic Administrative/social admission (5 sources) Patient encounter status; Translations: [Other specified counseling] Episodic Disorders usually diagnosed in infancy, childhood, or adolescence (20 sources) Attention deficit hyperactivity disorder, predominantly inattentive type; Translations: [Other specified behavioral and emotional disorders with onset usually occurring in childhood and adolescence] Onset: 7 08-05-2007 Chronic Intestinal infection (1 source) Acute gastroenteropathy due to [place] agent; Translations: [ACUTE GASTROENTROPATHY [place] AGNT] Onset: Episodic Nausea and vomiting (1 source) Nausea; Translations: [Nausea] 04-20-2024 Episodic Nutritional deficiencies (20 sources) Malnutrition (calorie); Translations: [Moderate protein-calorie malnutrition] Onset: 2 09-23-2021 Chronic Other connective tissue disease (1 source) Arthrodesis status; Translations: [ARTHRODESIS STATUS] Onset: 3 Episodic Other gastrointestinal disorders (1 source) Ileostomy status; Translations: [ILEOSTOMY STATUS] Onset: 3 Chronic Other gastrointestinal disorders (20 sources) Ileostomy present; Translations: [Ileostomy status] Onset: 3 11-26-2022 Chronic Other gastrointestinal disorders (1 source) Irritable bowel syndrome without diarrhea; Translations: [Irritable bowel syndrome, unspecified] Onset: 4 Chronic Other gastrointestinal disorders (10 sources) Diarrhea; Translations: [Diarrhea, unspecified] 05-11-2024 Episodic Other gastrointestinal disorders (2 sources) Diarrhea, unspecified; Translations: [Diarrhea, unspecified] Onset: 5 Episodic Other liver diseases (5 sources) Large liver; Translations: [Hepatomegaly, not elsewhere classified] 05-11-2024 Episodic Other lower respiratory disease (2 sources) Cough; Translations: [Acute cough] 07-17-2023 Episodic Other lower respiratory disease (1 source) Dyspnea on exertion; Translations: [Other forms of dyspnea] 04-26-2025 Episodic Other lower respiratory disease (1 source) Other forms of dyspnea; Translations: [SERVIN (dyspnea on exertion)] Onset: 5 Episodic Other nutritional; endocrine; and metabolic disorders (20 sources) Obese class I; Translations: [Obesity, unspecified] Onset: 9 07-19-2019 Chronic Other upper respiratory infections (4 sources) Acute upper respiratory infection; Translations: [Acute upper respiratory infection, unspecified] Onset: 5 01-29-2023 Episodic Residual codes; unclassified (1 source) History of closure of ileostomy; Translations: [Other specified postprocedural states] 12-06-2022 Episodic Unclassified (1 source) ACIDOSIS UNSPECIFIED; Translations: [ACIDOSIS UNSPECIFIED] Onset: 3 Unclassified (1 source) Established Patient Onset: 3 Unclassified (3 sources) R10.12 - Left upper quadrant pain,R19.7 - Diarrhea, unspecified,R10.31 - Right lower quadrant pain,Z91.018 - Allergy to other foods Unclassified (1 source) Left upper quadrant abdominal pain Unclassified (1 source) Right lower quadrant abdominal pain Past or Other Problems Problem Classification Problem Date Documented Da te Episodic/Chronic Allergic reactions (10 sources) Allergy to food; Translations: [Allergy to other foods] Onset: 12-22-2024 08-18-2024 Episodic Anal and rectal conditions (6 sources) Stricture of rectum; Translations: [Stenosis of anus and rectum] Onset: 10-22-2022 Episodic Complications of surgical procedures or medical care (20 sources) Postoperative ileus; Translations: [Other postprocedural complications and disorders of digestive system] Onset: 05-29-2021 05-29-2021 Episodic Fluid and electrolyte disorders (20 sources) Lactic acidosis; Translations: [Acidosis] Onset: 04-02-2022 04-02-2022 Episodic Intestinal obstruction without hernia (20 sources) Stricture of colon; Translations: [Other intestinal obstruction unspecified as to partial versus complete obstruction] Onset: 09-21-2021 Resolved: 09-23-2021 01-21-2023 Episodic Noninfectious gastroenteritis (20 sources) Enteritis [...] unspecified] Onset: 12-05-2021 Episodic Other gastrointestinal disorders (1 source) Functional intestinal disorder, unspecified; Translations: [Colonic inertia] Onset: 12-05-2021 Episodic Other liver diseases (1 source) Hepatomegaly, not elsewhere classified; Translations: [Hepatomegaly, not elsewhere classified] Onset: 06-16-2024 Episodic Septicemia (except in labor) (20 sources) Sepsis; Translations: [Sepsis, unspecified organism] Onset: 04-02-2022 Resolved: 01-17-2023 04-02-2022 Episodic Spondylosis; intervertebral disc disorders; other back problems (20 sources) Acute back pain with sciatica; Translations: [Lumbago with sciatica, left side] Onset: 08-27-2019 08-27-2019 Episodic Results Test Name Value Interpretation Reference Range Facility CNOV 04-26-2025 CNOV Office Visit ([facility]) EUNICE VARGAS ([id number]) 1985 Date Time Provider Department 04/26/25 11:15 AM HENRRY HAIDER [facility] During your visit today, we recorded the following information about you: Temperature Pulse Respiration Blood pressure 98.3 degrees 117/minute 16/minute 112/82 Weight 85.7 kg Henrry Haider PA-C 04/26/2025 12:17 PM Signed PATIENT NAME: Eunice Vargas DATE OF : [...] tightness, SERVIN, body aches, chills, and sinus congestion/pressure/drainag e that started yesterday. Denies overt fever, Patient [...] tenderness or frontal sinus tenderness. Mouth/Throat: Lips: [place]. No lesions. Mouth: Mucous membranes are moist. No oral lesions. Dentition: No gum lesions. Tongue: No lesions. Tongue does not deviate from midline. Palate: No mass and lesion (more content not included)... Normal [facility] COVID & INFLUENZA A/B & RSV PCR, ROUTINEon 04-26-2025 FLUAV RNA RAVINDER+probe Ql (Unsp spec) Not detected Not Detected [facility] FLUBV RNA RAVINDER+probe Ql (Unsp spec) Not detected Not Detected [facility] Interpretation and review of laboratory results Normal [facility] RSV A RNA RAVINDER+probe Ql (Unsp spec) Not detected Not Detected [facility] SARS-CoV-2 (COVID-19) RNA RAVINDER+probe Ql (Unsp spec) Not detected See comment [facility] Reference Range (the expected result in uninfected individuals): Not detected [facility] EGD Reporton 04-01-2025 EGD Report [facility] Medical Records Department [address] [place] [address] EGD Report MR#: [id number] Acct: [id number] Name: EUNICE VARGAS Rep #: [id number] : 1985 39 From: [facility] Friend DO PCP: Dr. Mallory Mckeon MD Status:[facility] Patient Name: Eunice Vargas Procedure Date: 04/01/2025 [...] present medications. Procedure Code(s): --- Professional --- 15816, Small intestinal endoscopy, enteroscopy beyond second portion of duodenum, not including ileum; with biopsy, single or multiple CPT copyright 2021 [employer]. All rights reserved. The codes documented in this report are preliminary and upon plan examiner review may be revised to meet current compliance requirements. Tom Campbell DO 04/01/2025 1:23:18 PM This report has been signed electronically. Number of Addenda: 0 Note Initiated On: 04/01/2025 12:54 PM 04/01/25 1323 Date Tom Talley Signature: Date (if indicated) (more content not included)... Normal [facility] Immunohistochemical Stainson 04-01-2025 Immunohistochemical Stains Patient Age/Sex Location Account Attending Physician EUNICE VARGAS 39/M EN [id number] Tom Campbell DO Specimen: [id number] Received: 04/01/25 Status: SALVATORE Matta Num: [id number] Spec Type: EGD BIOPSY Subm Dr: Tom Campbell DO HEADER OPERATION: EGD with biopsy PRE-OP DIAGNOSIS: Diarrhea, food allergy, left upper quadrant pain, right lower quadrant pain TISSUE SUBMITTED: A- Distal esophagus biopsy, B- Duodenum biopsy, C- Gastric body biopsy MICROSCOPIC DIAGNOSIS A. Distal esophagus, biopsy: Squamocolumnar mucosa, negative for goblet cell metaplasia. B. Duodenum, biopsy: Olga gland hyperplasia with gastric mucin cell metaplasia, suggestive of peptic injury. Negative for increased intraepithelial lymphocytes. C. Gastric body, biopsy: Oxyntic mucosa with no specific pathologic change. IHC negative for H. pylori organisms. MICROSCOPIC DESCRIPTION Slides are reviewed. All matched controls reacted appropriately. These tests were developed and their performance characteristics determined by [facility]. They may not have been cleared or approved by the U.S. Food and Drug Administration. The FDA has determined that such clearance or approval is not necessary. The above immunohistochemical/dualISH markers are viewed by the Pathologist. GROSS DESCRIPTION A. Received in fixative is one container labeled with the patient's name and designated Distal esophagus biopsy. The specimen consists of two irregular fragments of light mendieta soft tissue that measure 0.4 and 0.6 cm. The specimen is totally submitted in one cassette. B. Received in fixative is one container labeled with the patient's name and designated Duodenum biopsy. The specimen consists of three irregular fragments of light mendieta soft tissue that measure <0.1 to 0.4 cm. Smallest fragment may not survive processing. The specimen is totally submitted in one cassette. C. Received in fixative is one container labeled with the patient's name and designated Gastric body biopsy. The specimen consists of two irregular fragments of light mendieta soft tissue that measure 0.1 and 0.6 cm. The specimen is totally submitted in one cassette. [place] 04/01/2025 Patient Age/Sex Location Account Attending Physician EUNICE VARGAS/M EN [id number] Tom Campbell, CPT:[id number] Patient Age/Sex Location Account Attending Physician EUNICE VARGAS 39/M EN [id number] Tom Capmbell DO Signed (signature on file) Dr. Emily Mitchell MD 04/18/25 1546 Normal [facility] Comment on above: Performed By: #### L 7000.0750, L7000.0300, L7000.0700, M600.5000, M7400.3302, M100.0605, M100.7900, M100.6796, M100.637 #### [facility] [address] [facility]. [place], [place], [address] MR/OP.PROVATon 04-01-2025 MR/OP.[facility] Medical Records Department [address] [place] [address] Provation Physician Letter MR#: [id number] Acct: [id number] Name: EUNICE VARGAS Rep #: [id number] : 1985 39 From: Tom Campbell DO PCP: Dr. Mallory Mckeon MD Status:[facility] [place] 04/01/2025 Mallory Mckeon Md Re : Upper GI endoscopy procedure for Eunice Sam Dear Mike This procedure was performed on [...] has been signed electronically. 04/01/25 1323 Date Tom Campbell DO Cosigner Signature: Date (if indicated) CC: Dr. Mallory Mckeon MD; Tom Campbell DO Date Dictated: 04/01/25 1254 Date Transcribed: Advertising Agency Manager: RF Signed [facility] MR/POSTOP.ANEon 04-01-2025 MR/POSTOP.[facility] Medical Records Department [address] [place] [address] Anesthesia Postop Eval I 04/01/25 1323 MR#: [id number] Acct: [id number] Name: EUNICE VARGAS Rep #: [id number] : 1985 39 From: Lul Celestin CRNA PCP: Dr. Mallory Mckeon MD Status:[facility] Y Race: C Location: [place] [address] Anesthesia: Postop Eval I Current Vital Signs Temperature: 97.9 F Pulse Rate: 98 Blood Pressure: 125/78 Respiratory Rate: 16 Pulse Ox: 98 Assessment Airway patent: Yes Spontaneous unlabored respirations: Yes nausea: No Vomiting: No Anesthesia Complication: No Fluid Hydration Crystalloid volume administer (ml): 300 Total IV fluid infused: 300 Progress Note Anesthesia document: Postop Eval 1 completed: Yes 04/01/25 1323 Date Lul Celestin FIELD TECHNICIAN Cosigner Signature: Date CC: Signed [place] [facility]dom[facility]/Pelvis [facility] Contrast on 01-17-2025 Abdomen/Pelvis WITH Contrast [facility] Imaging Services [address] [place] [address] Abdomen/Pelvis WITH Contrast MR#: [id number] Acct: [id number] Name: EUNICE VARGAS Rep #: [id number] : 1985 M 39 From: Harshil lindsey MD PCP: Dr. Mallory Mckeon MD Status: REG CLI Study: Abdomen/Pelvis WITH Contrast Date of Exam: 05/05 Exam# [id number] Ordering Dr: Zhane Hollis PROCEDURE: ABDOMEN/PELVIS WITH CONTRAST 01/17/2025 REASON FOR [...] No interval change is noted. [facility] CC: PERLA Hollis; Dr. Mallory Mckeon MD Advertising Agency Manager: Signed Normal [facility] Gastroenterology Visit Repor ton 12-22-2024 Gastroenterology Visit Report [facility] Gastroenterology [address] [place] [address] OFFICE VISIT Date of Service: 12/22/24 MR#: [id number] Acct: [id number] Name: EUNICE VARGAS Rep #: [id number] : 1985 Provider: PERLA pacheco Age/Sex: 39/M [place] [facility] [place]: [place] Intake Vital Signs 08/14/23 21:15 12/22/24 08:00 Height 5 ft 7 in Weight: 188 lb 4 oz BP 124/85 H Blood Pressure Location Lt brachial Position Sitting Respiration 16 Pulse 60 Pulse Source Monitor Pulse Oximetry (%) 97 Oxygen Delivery Method room air Intake Visit Reasons: 4 M FU Chief Complaint: 4 M f/u Allergies No Known Allergies Allergy (Verified 12/22/24 07:57) Medications ???Medication ???Instructions ???Recorded ???Confirmed ???Type NK 08/14/23 12/22/24 History Nurse's Note: Pt states he is feeling overall pretty good. He did state he is having some abdominal pain but no nausea. PFSH Medical History Ileostomy present Surgical History H/O spinal fusion History of appendectomy History of reversal of ileostomy H/O colectomy Social History Smoking Status: Never smoker HPI HPI Chief Complaint: 4 M f/u Details: EUNICE VARGAS, is a 39 M who presents to the office today for OV 08/18/2024 - Dr. Friend Very pleasant [...] - no change in pain with movement ROS Gastro GI: Positive for abdominal pain, bloating and diarrhea Musc Musculoskeletal: Positive for back pain and muscle cramps Psych Psychiatric: Positive for anxiety Exam Const General: cooperative, healthy appearing, no acute distress and well developed Nutritional Appearance: average body habitus and well nourished Orientation: alert and oriented x3 HENMT Head: normocephalic Ears: hearing grossly normal bilaterally Mouth: moist mucous membranes Teeth and gingiva: dentition normal Eyes Conjunctivae: conjunctivae normal Sclera: sclerae normal Neck Neck: normal visual inspection, full ROM and trachea midline Resp Effort Inspection: normal respiratory effort, able to speak in complete sentences and symmetric chest movement Auscultation: Bilateral: Clear to Auscultation Cardio Palpation: normal PMI Rate: regular rate Rhythm: regular rhythm Heart Sounds: S1 normal and S2 normal GI Inspection: normal to inspection Auscultation: normal bowel sounds Palpation: soft and no hepatosplenomegaly Rectal Exam: deferred Other: mild LUQ tenderness with palpation Skin Gen (more content not included)... Normal [facility] L3410.9998on 10-30-2024 [facility] Mis. COMMENT Normal . [facility] Comment on above: Order Comment: [id number] 0VIT K SERUM YUKO TOP PFL RF Result Comment: Test Ordered: [id number] Vitamin K1 Test(s) 902197-Brelnsk K1 was developed and its performance characteristics determined by [facility]. It has not been cleared or approved by the Food and Drug Administration. Vitamin K1 0.57 ng/mL Reference Range: 0.10-2.20 Performed at: [facility] [address] [id number] It Portfolio Manager: Morgan Vizcarra MD, Phone: [phone] Performed at: [address] [id number] It Portfolio Manager: Sai Moran PhD, Phone: [phone] Performed By: #### L 7000.0750, L7000.0300, L7000.0700, M600.5000, M7400.3302, M100.0605, M100.7900, M100.6796, M100.637 #### [facility] [address] [facility] [place], [place], [id number] Anion gap in Serum or Plasma Ordered By: Mallory Mckeon on 10-19-2024 Anion gap [Moles/Vol] 13 mmol/L 5-15 [facility] BUN/creatinine ratioOrdered By: Mallory Gomezke on 10-19-2024 Urea nitrogen/Creatinine [Mass ratio] 13.9 mg/mg 10-20 [facility] Bilirubin, totalOrdered By: Mallory Gomezke on 10-19-2024 Bilirubin [Mass/Vol] 0.59 mg/dL 0.00-1.30 [facility] CBC-Complete Blood Cnt No Di ffon 10-19-2024 Erythrocyte distribution width (RBC) [Ratio] 12.8 % Normal 11.6-14.6 [facility] Comment on above: Order Comment: Order Date: 10/19/24Order Info: [id number] - CBC Performed By: #### L 7000.0750, L7000.0300, L7000.0700, M600.5000, M7400.3302, M100.0605, M100.7900, M100.6796, M100.637 #### [facility] [address] [place], [place], [id number] Hematocrit (Bld) [Volume fraction] 44.4 % Normal 40-54 [facility] Comment on above: Order Comment: Order Date: 10/19/24Order Info: [id number] - CBC Performed By: #### L 7000.0750, L7000.0300, L7000.0700, M600.5000, M7400.3302, M100.0605, M100.7900, M100.6796, M100.637 #### [facility] [address] [place], [place], [id number] (940) Hemoglobin (Bld) [Mass/Vol] 15.2 g/dL Normal 13.0-16.5 [facility] Comment on above: Order Comment: Order Date: 10/19/24Order Info: [id number] - CBC Performed By: #### L 7000.0750, L7000.0300, L7000.0700, M600.5000, M7400.3302, M100.0605, M100.7900, M100.6796, M100.637 #### [facility] [address] [place], [address] MCH (RBC) [Entitic mass] 30.3 pg Normal 27.0-32.0 [facility] Comment on above: Order Comment: Order Date: 10/19/24Order Info: [id number] - CBC Performed By: #### L 7000.0750, L7000.0300, L7000.0700, M600.5000, M7400.3302, M100.0605, M100.7900, M100.6796, M100.637 #### [facility] [address] [place], [address] MCHC (RBC) [Mass/Vol] 34.2 g/dL Normal 32-36 [facility] Comment on above: Order Comment: Order Date: 10/19/24Order Info: [id number] - CBC Performed By: #### L 7000.0750, L7000.0300, L7000.0700, M600.5000, M7400.3302, M100.0605, M100.7900, M100.6796, M100.637 #### [facility] [address] [place], [address] MCV (RBC) [Entitic vol] 88.6 fL Normal 80-94 [facility] Comment on above: Order Comment: Order Date: 10/19/24Order Info: [id number] - CBC Performed By: #### L 7000.0750, L7000.0300, L7000.0700, M600.5000, M7400.3302, M100.0605, M100.7900, M100.6796, M100.637 #### [facility] [address] [place], [address] Platelet mean volume (Bld) [Entitic vol] 10.5 fL Normal 6.2-12.0 [facility] Comment on above: Order Comment: Order Date: 10/19/24Order Info: [id number] - CBC Performed By: #### L 7000.0750, L7000.0300, L7000.0700, M600.5000, M7400.3302, M100.0605, M100.7900, M100.6796, M100.637 #### [facility] [address] [place], [address] Platelets (Bld) [#/Vol] 261 10*3/uL Normal 150-450 [facility] Comment on above: Order Comment: Order Date: 10/19/24Order Info: [id number] - CBC Performed By: #### L 7000.0750, L7000.0300, L7000.0700, M600.5000, M7400.3302, M100.0605, M100.7900, M100.6796, M100.637 #### [facility] [address] [place], [address] RBC (Bld) [#/Vol] 5.01 10*6/uL Normal 4.6-6.2 [facility] Comment on above: Order Comment: Order Date: 10/19/24Order Info: [id number] - CBC Performed By: #### L 7000.0750, L7000.0300, L7000.0700, M600.5000, M7400.3302, M100.0605, M100.7900, M100.6796, M100.637 #### [facility] [address] [place], [address] RDW SD 41.8 fl Normal 35.1-43.9 [facility] Comment on above: Order Comment: Order Date: 10/19/24Order Info: [id number] - CBC Performed By: #### L 7000.0750, L7000.0300, L7000.0700, M600.5000, M7400.3302, M100.0605, M100.7900, M100.6796, M100.637 #### [facility] [address] [place], [place], [id number] WBC (Bld) [#/Vol] 5.4 10*3/uL Normal 4.4-11.0 [facility] Comment on above: Order Comment: Order Date: 10/19/24Order Info: [id number] - CBC Performed By: #### L 7000.0750, L7000.0300, L7000.0700, M600.5000, M7400.3302, M100.0605, M100.7900, M100.6796, M100.637 #### [facility] [address] [facility]. [place], [place], [id number] Calculated very low density lipoprotein (VLDL) cholesterol measurementOrdered By: Mallory Mckeon on 10-19-2024 Calculated very low density lipoprotein (VLDL) cholesterol measurement 14 mg/dL -40 [facility] VLDL Cholesterol 14 mg/dL - [facility] Carbon dioxide, total [Moles /volume] in Central venous bloodOrdered By: Mallory Mckeon on 10-19-2024 CO2 [Moles/Vol] 18.1 mmol/L Low 21.0-32.0 [facility] Chloride assayOrdered By: Gisselle Mckeon on 10-19-2024 Chloride [Moles/Vol] 106 mmol/L 98-108 [facility] Comprehensive Metabolic Prof ilon 10-19-2024 Albumin [Mass/Vol] 4.4 g/dL Normal 3.5-5.0 [facility] Comment on above: Order Comment: Order Date: 10/19/24Order Info: [id number] - CMPOrder Info: [id number] - LIPIDOrder Info: [id number] - TSH Performed By: #### L 7000.0750, L7000.0300, L7000.0700, M600.5000, M7400.3302, M100.0605, M100.7900, M100.6796, M100.637 #### [facility] [address] [place], [address] Albumin/Globulin [Mass ratio] 1.6 {ratio} Normal 0.9-2.4 [facility] Comment on above: Order Comment: Order Date: 10/19/24Order Info: [id number] - CMPOrder Info: [id number] - LIPIDOrder Info: [id number] - TSH Performed By: #### L 7000.0750, L7000.0300, L7000.0700, M600.5000, M7400.3302, M100.0605, M100.7900, M100.6796, M100.637 #### [facility] [address] [place], [address] ALK PHOS 61 U/L Normal 40-129 [facility] Comment on above: Order Comment: Order Date: 10/19/24Order Info: 0786- - CMPOrder Info: [id number] - LIPIDOrder Info: [id number] - TSH Performed By: #### L 7000.0750, L7000.0300, L7000.0700, M600.5000, M7400.3302, M100.0605, M100.7900, M100.6796, M100.637 #### [facility] [address] [place], [address] ALT [Catalytic activity/Vol] 28 U/L Normal <=46 [facility] Comment on above: Order Comment: Order Date: 10/19/24Order Info: [id number] - CMPOrder Info: [id number] - LIPIDOrder Info: [id number] - TSH Performed By: #### L 7000.0750, L7000.0300, L7000.0700, M600.5000, M7400.3302, M100.0605, M100.7900, M100.6796, M100.637 #### [facility] [address] [place], [address] AST [Catalytic activity/Vol] 34 U/L Normal <=37 [facility] Comment on above: Order Comment: Order Date: 10/19/24Order Info: 0786- - CMPOrder Info: [id number] - LIPIDOrder Info: [id number] - TSH Performed By: #### L 7000.0750, L7000.0300, L7000.0700, M600.5000, M7400.3302, M100.0605, M100.7900, M100.6796, M100.637 #### [facility] [address] [place], [address] Bilirubin [Mass/Vol] 0.59 mg/dL Normal 0.00-1.30 [facility] Comment on above: Order Comment: Order Date: 10/19/24Order Info: 07 - CMPOrder Info: [id number] - LIPIDOrder Info: [id number] - TSH Performed By: #### L 7000.0750, L7000.0300, L7000.0700, M600.5000, M7400.3302, M100.0605, M100.7900, M100.6796, M100.637 #### [facility] [address] [place], [address] BUN/CRE 13.9 RATIO Normal 10-20 [facility] Comment on above: Order Comment: Order Date: 10/19/24Order Info: 0786- - CMPOrder Info: [id number] - LIPIDOrder Info: [id number] - TSH Performed By: #### L 7000.0750, L7000.0300, L7000.0700, M600.5000, M7400.3302, M100.0605, M100.7900, M100.6796, M100.637 #### [facility] [address] [place], [address] Calcium [Mass/Vol] 8.8 mg/dL Normal 7.6-11.0 [facility] Comment on above: Order Comment: Order Date: 10/19/24Order Info: 86- - CMPOrder Info: [id number] - LIPIDOrder Info: [id number] - TSH Performed By: #### L 7000.0750, L7000.0300, L7000.0700, M600.5000, M7400.3302, M100.0605, M100.7900, M100.6796, M100.637 #### [facility] [address] [place], [address] Chloride [Moles/Vol] 106 mmol/L Normal 98-108 [facility] Comment on above: Order Comment: Order Date: 10/19/24Order Info: 785- - CMPOrder Info: - LIPIDOrder Info: [id number] - TSH Performed By: #### L 7000.0750, L7000.0300, L7000.0700, M600.5000, M7400.3302, M100.0605, M100.7900, M100.6796, M100.637 #### [facility] [address] [place], [address] CO2 [Moles/Vol] 18.1 mmol/L Low 21.0-32.0 [facility] Comment on above: Order Comment: Order Date: 10/19/24Order Info: 07 - CMPOrder Info: [id number] - LIPIDOrder Info: [id number] - TSH Performed By: #### L 7000.0750, L7000.0300, L7000.0700, M600.5000, M7400.3302, M100.0605, M100.7900, M100.6796, M100.637 #### [facility] [address] [place], [address] Creatinine [Mass/Vol] 0.86 mg/dL Normal 0.70-1.20 [facility] Comment on above: Order Comment: Order Date: 10/19/24Order Info: 785- - CMPOrder Info: - LIPIDOrder Info: [id number] - TSH Performed By: #### L 7000.0750, L7000.0300, L7000.0700, M600.5000, M7400.3302, M100.0605, M100.7900, M100.6796, M100.637 #### [facility] [address] [place], [address] GAP 13 Normal 5-15 [facility] Comment on above: Order Comment: Order Date: 10/19/24Order Info: [id number] - CMPOrder Info: [id number] - LIPIDOrder Info: [id number] - TSH Performed By: #### L 7000.0750, L7000.0300, L7000.0700, M600.5000, M7400.3302, M100.0605, M100.7900, M100.6796, M100.637 #### [facility] [address] [place], [address] GFR/1.73 sq M.predicted among non-blacks MDRD (S/P/Bld) [Vol rate/Area] 114 mL/min/{1.73_m2} Normal >60 [facility] Comment on above: Order Comment: Order Date: 10/19/24Order Info: [id number] - CMPOrder Info: [id number] - LIPIDOrder Info: [id number] - TSH Result Comment: mL/m in/1.73m2 CKD-EPI Creatinine Equation (2020) Performed By: #### L 7000.0750, L7000.0300, L7000.0700, M600.5000, M7400.3302, M100.0605, M100.7900, M100.6796, M100.637 #### [facility] [address] [place], [address] Globulin (S) [Mass/Vol] 2.7 g/dL Normal 2.2-4.2 [facility] Comment on above: Order Comment: Order Date: 10/19/24Order Info: [id number] - CMPOrder Info: [id number] - LIPIDOrder Info: [id number] - TSH Performed By: #### L 7000.0750, L7000.0300, L7000.0700, M600.5000, M7400.3302, M100.0605, M100.7900, M100.6796, M100.637 #### [facility] [address] [place], [address] Glucose [Mass/Vol] 93 mg/dL Normal 70-99 [facility] Comment on above: Order Comment: Order Date: 10/19/24Order Info: [id number] - CMPOrder Info: [id number] - LIPIDOrder Info: [id number] - TSH Performed By: #### L 7000.0750, L7000.0300, L7000.0700, M600.5000, M7400.3302, M100.0605, M100.7900, M100.6796, M100.637 #### [facility] [address] [place], [address] Potassium [Moles/Vol] 4.4 mmol/L Normal 3.3-5.1 [facility] Comment on above: Order Comment: Order Date: 10/19/24Order Info: 07 - CMPOrder Info: [id number] - LIPIDOrder Info: [id number] - TSH Performed By: #### L 7000.0750, L7000.0300, L7000.0700, M600.5000, M7400.3302, M100.0605, M100.7900, M100.6796, M100.637 #### [facility] [address] [place], [address] Sodium [Moles/Vol] 137 mmol/L Normal 133-145 [facility] Comment on above: Order Comment: Order Date: 10/19/24Order Info: 07 - CMPOrder Info: [id number] - LIPIDOrder Info: [id number] - TSH Performed By: #### L 7000.0750, L7000.0300, L7000.0700, M600.5000, M7400.3302, M100.0605, M100.7900, M100.6796, M100.637 #### [facility] [address] [place], [place], [phone] (863) T PROT 7.1 g/dL Normal 5.9-8.4 [facility] Comment on above: Order Comment: Order Date: 10/19/24Order Info: [id number] - CMPOrder Info: [id number] - LIPIDOrder Info: [id number] - TSH Performed By: #### L 7000.0750, L7000.0300, L7000.0700, M600.5000, M7400.3302, M100.0605, M100.7900, M100.6796, M100.637 #### [facility] [address] [place], [place], [id number] Urea nitrogen [Mass/Vol] 12 mg/dL Normal 4-19 [facility] Comment on above: Order Comment: Order Date: 10/19/24Order Info: [id number] - CMPOrder Info: [id number] - LIPIDOrder Info: [id number] - TSH Performed By: #### L 7000.0750, L7000.0300, L7000.0700, M600.5000, M7400.3302, M100.0605, M100.7900, M100.6796, M100.637 #### [facility] [address] [place], [place], [id number] Erythrocyte distribution wid th ratioOrdered By: Mallory Mckeon on 10-19-2024 Erythrocyte distribution width (RBC) [Ratio] 12.8 % 11.6-14.6 [facility] Erythrocyte distribution wid th standard deviationOrdered By: Mallory Mckeon on 10-19-2024 Erythrocyte distribution width (RBC) [Entitic vol] 41.8 fL 35.1-43.9 [facility] Erythrocyte distribution width (RBC) [Ratio] 41.8 fl 35.1-43.9 [facility] GFR/1.73 sq M.predicted kade g non-blacks MDRD (S/P/Bld) [Vol rate/Area]Ordered By: Mallory Mckeon on 10-19-2024 Estimated GFR (MDRD) Non-Af Amer 114 >60 [facility] Comment on above: mL/min/1.73m2 CKD-EP I Creatinine Equation (2020) Glomerular filtration rate ( GFR) estimation/1.73 sq m using serum, plasma, or whole bOrdered By: Mallory Mckeon on 10-19-2024 GFR/1.73 sq M.predicted among non-blacks MDRD (S/P/Bld) [Vol rate/Area] 114 mL/min/{1.73_m2} >60 [facility] Comment on above: mL/min/1.73m2 CKD-EP I Creatinine Equation (2020) Hematocrit Auto (Bld) [Volum e fraction]Ordered By: Mallory Mckeon on 10-19-2024 Hematocrit (Bld) [Volume fraction] 44.4 % 40-54 [facility] Hemoglobin measurementOrdere d By: Mallory Mckeon on 10-19-2024 Hemoglobin (Bld) [Mass/Vol] 15.2 g/dL 13.0-16.5 [facility] LDL calc ser/plasOrdered By: Mallory Mckeon on 10-19-2024 Cholesterol in LDL [Mass/Vol] 64 mg/dL [facility] Comment on above: Stwbtnakfv=933-285 m g/dL & Higher Mlff=127 mg/dL or greater LDL Cholesterol, Calculated 64 mg/dL [facility] Comment on above: Lkrlibhcko=502-956 m g/dL & Higher Ixmi=879 mg/dL or greater Laboratory - Chemistry and C hemistry - challengeOrdered By: Mallory Mckeon on 10-19-2024 AST [Catalytic activity/Vol] 34 U/L <38 [facility] Lipid Profileon 10-19-2024 CHOL:HDL 2.11 Normal [facility] Comment on above: Order Comment: Order Date: 10/19/24Order Info: [id number] - CMPOrder Info: [id number] - LIPIDOrder Info: [id number] - TSH Performed By: #### L 7000.0750, L7000.0300, L7000.0700, M600.5000, M7400.3302, M100.0605, M100.7900, M100.6796, M100.637 #### [facility] [address] [place], [address] Cholesterol [Mass/Vol] 148 mg/dL Normal <=200 [facility] Comment on above: Order Comment: Order Date: 10/19/24Order Info: [id number] - CMPOrder Info: [id number] - LIPIDOrder Info: [id number] - TSH Result Comment: Chol esterol level, Desirable <200 mg/dL Borderline high cholesterol 200-239 mg/dL High cholesterol >=240 mg/dL Recommendations of the NCEP Adult Treatment Panel for the following risk-cutoff thresholds for the [place] population. Performed By: #### L 7000.0750, L7000.0300, L7000.0700, M600.5000, M7400.3302, M100.0605, M100.7900, M100.6796, M100.637 #### [facility] [address] [place], [address] Cholesterol in HDL [Mass/Vol] 70 mg/dL Normal [facility] Comment on above: Order Comment: Order Date: 10/19/24Order Info: [id number] - CMPOrder Info: [id number] - LIPIDOrder Info: [id number] - TSH Result Comment: Pennie onal Cholesterol Education Program (NCEP) guidelines: <40 mg/dL: Low HDL-cholesterol (major risk factor for CHD) >= 60 mg/dL: High HDL-cholesterol (negative risk factor for CHD) HDL-cholesterol is affected by a number of factors, e.g. smoking, exercise, hormones, sex and age. Performed By: #### L 7000.0750, L7000.0300, L7000.0700, M600.5000, M7400.3302, M100.0605, M100.7900, M100.6796, M100.637 #### [facility] [address] [place], [place], [id number] Cholesterol in LDL [Mass/Vol] 64 mg/dL Normal [facility] Comment on above: Order Comment: Order Date: 10/19/24Order Info: 0786- - CMPOrder Info: [id number] - LIPIDOrder Info: [id number] - TSH Result Comment: Bord xpvdov=928-176 mg/dL Higher Apcr=265 mg/dL or greater Performed By: #### L 7000.0750, L7000.0300, L7000.0700, M600.5000, M7400.3302, M100.0605, M100.7900, M100.6796, M100.637 #### [facility] [address] [place], [place], [id number] Cholesterol in VLDL [Mass/Vol] 14 mg/dL Normal 5-40 [facility] Comment on above: Order Comment: Order Date: 10/19/24Order Info: 0786- - CMPOrder Info: [id number] - LIPIDOrder Info: [id number] - TSH Performed By: #### L 7000.0750, L7000.0300, L7000.0700, M600.5000, M7400.3302, M100.0605, M100.7900, M100.6796, M100.637 #### [facility] [address] [place], [place], [phone] Triglyceride [Mass/Vol] 71 mg/dL Normal [facility] Comment on above: Order Comment: Order Date: 10/19/24Order Info: 0786- - CMPOrder Info: [id number] - LIPIDOrder Info: [id number] - TSH Result Comment: The drugs N-Acetylcysteine and Metamizole may falsely depress this assay. Normal range: <150 mg/dL Borderline High: 150-199 mg/dL High: 200-499 mg/dL Very High: >500 mg/dL Performed By: #### L 7000.0750, L7000.0300, L7000.0700, M600.5000, M7400.3302, M100.0605, M100.7900, M100.6796, M100.637 #### [facility] [place], [address] MCV (mean corpuscular volume ) determinationOrdered By: Mallory Mckeon on 10-19-2024 MCV (RBC) [Entitic vol] 88.6 fL 80-94 [facility] Mean corpuscular hemoglobin (MCH) determinationOrdered By: Mallory Mckeon on 10-19-2024 MCH (RBC) [Entitic mass] 30.3 pg 27.0-32.0 [facility] Mean corpuscular hemoglobin concentration (MCHC) determinationOrdered By: Mallory Mckeon on 10-19-2024 MCHC (RBC) [Mass/Vol] 34.2 g/dL 32-36 [facility] Mean platelet volume determi nationOrdered By: Mallory Mckeon on 10-19-2024 Platelet mean volume (Bld) [Entitic vol] 10.5 fL 6.2-12.0 [facility] Platelet countOrdered By: Gisselle Mckeon on 10-19-2024 Platelets (Bld) [#/Vol] 261 10*3/uL 150-450 [facility] Potassium (Unsp spec) [Mass/ Vol]Ordered By: Mallory Mckeon on 10-19-2024 Potassium [Moles/Vol] 4.4 mmol/L 3.3-5.1 [facility] Potassium measurement (mass/ volume)Ordered By: Mallory Mckeon on 10-19-2024 Potassium (Unsp spec) [Mass/Vol] 4.4 mmol/L 3.3-5.1 [facility] RBC Auto (Bld) [#/Vol]Ordere d By: Mallory Mckeon on 10-19-2024 RBC (Bld) [#/Vol] 5.01 10*6/uL 4.6-6.2 [facility] Screening total cholesterol/ high density lipoprotein (HDL) cholesterol ratioOrdered By: Mallory Mckeon on 10-19-2024 Cholesterol.total/Chol esterol in HDL [Mass ratio] 2.11 {ratio} [facility] Serum creatinine measurement (mass/volume)Ordered By: Mallory Mckeon on 10-19-2024 Creatinine [Mass/Vol] 0.86 mg/dL 0.70-1.20 [facility] Serum globulin measurementOr dered By: Mallory Mckeon on 10-19-2024 Globulin (S) [Mass/Vol] 2.7 g/dL 2.2-4.2 [facility] Serum glucose measurement (m ass/volume)Ordered By: Mallory Mckeon on 10-19-2024 Glucose [Mass/Vol] 93 mg/dL 70-99 [facility] Serum or plasma alanine vargas otransferase (ALT) measurementOrdered By: Mallory Mckeon on 10-19-2024 ALT [Catalytic activity/Vol] 28 U/L <47 [facility] Serum or plasma albumin rafa urement (mass/volume)Ordered By: Mallory Mckeon on 10-19-2024 Albumin [Mass/Vol] 4.4 g/dL 3.5-5.0 [facility] Serum or plasma albumin/glob ulin mass ratioOrdered By: Mallory Mckeon on 10-19-2024 Albumin/Globulin [Mass ratio] 1.6 {ratio} 0.9-2.4 [facility] Serum or plasma alkaline tisha sphatase measurementOrdered By: Mallory Mckeon on 10-19-2024 ALP [Catalytic activity/Vol] 61 U/L 40-129 [facility] Serum or plasma calcium rafa urement (mass/volume)Ordered By: Mallory Mckeon on 10-19-2024 Calcium [Mass/Vol] 8.8 mg/dL 7.6-11.0 [facility] Serum or plasma cholesterol in HDL measurement (mass/volume)Ordered By: Mallory Mckeon on 10-19-2024 Cholesterol in HDL [Mass/Vol] 70 mg/dL >40 [facility] Comment on above: National Cholesterol Education Program (NCEP) guidelines:<40 mg/dL: Low HDL-cholesterol (major risk factor for CHD)>= 60 mg/dL: High HDL-cholesterol (negative risk factor for CHD)HDL-cholesterol is affected by a number of factors, e.g. smoking, exercise, hormones, sex and age. Serum or plasma cholesterol measurement (mass/volume)Ordered By: Mallory Mckeon on 10-19-2024 Cholesterol [Mass/Vol] 148 mg/dL <201 [facility] Comment on above: Cholesterol level, D esirable <200 mg/dLBorderline high cholesterol 200-239 mg/dLHigh cholesterol >=240 mg/dLRecommendations of the NCEP Adult Treatment Panel for the following risk-cutoff thresholds for the [place] population. Serum or plasma urea nitroge n measurement (mass/volume)Ordered By: Mallory Mckeon on 10-19-2024 Urea nitrogen [Mass/Vol] 12 mg/dL 4-19 [facility] Sodium levelOrdered By: Yogesh Mckeon on 10-19-2024 Sodium [Moles/Vol] 137 mmol/L 133-145 [facility] TSH DL <= 0.005 mIU/L QnOrde red By: Mallory Mckeon on 10-19-2024 Thyroid Stimulating Hormone (TSH) 3.810 uIU/mL 0.300-4.200 [facility] TSH Qn 3.810 uIU/mL 0.300-4.200 [facility] Thyroid Stim Hormone (TSH)on 10-19-2024 TSH 3.810 uIU/mL Normal 0.300-4.200 [facility] Comment on above: Order Comment: Order Date: 10/19/24Order Info: [id number] - CMPOrder Info: [id number] - LIPIDOrder Info: [id number] - TSH Performed By: #### L 7000.0750, L7000.0300, L7000.0700, M600.5000, M7400.3302, M100.0605, M100.7900, M100.6796, M100.637 #### [facility] [address] [place], [place], [address] Total proteinOrdered By: Hyun Mckeon on 10-19-2024 Protein [Mass/Vol] 7.1 g/dL 5.9-8.4 [facility] Triglycerides measurementOrd ered By: Mallory Mckeon on 10-19-2024 Triglyceride [Mass/Vol] 71 mg/dL <199 [facility] Comment on above: The drugs N-Acetylcy steine and Metamizole may falsely depress this assay. Normal range: <150 mg/dLBorderline High: 150-199 mg/dLHigh: 200-499 mg/dLVery High: >500 mg/dL White blood cell (WBC) count Ordered By: Mallory Mckeon on 10-19-2024 WBC (Bld) [#/Vol] 5.4 10*3/uL 4.4-11.0 [facility] Gastroenterology Visit Repor ton 08-18-2024 Gastroenterology Visit Report [facility] Gastroenterology [address] [place] [address] OFFICE VISIT Date of Service: 08/18/24 MR#: [id number] Acct: [id number] Name: EUNICE VARGAS Rep #: [id number] : 1985 Provider: Tom Campbell DO Age/Sex: 38/M [place] [facility] [place] Status: Signed Intake Vital Signs 08/14/23 21:15 Height 5 ft 7 in Intake Visit Reasons: 3 M FU Allergies No Known Allergies Allergy (Verified 12/04/23 09:44) Medications ???Medication ???Instructions ???Recorded ???Confirmed ???Type NK 08/14/23 08/18/24 History PFSH Medical History Ileostomy present Surgical History H/O spinal fusion History of appendectomy History of reversal of ileostomy H/O colectomy Social History Smoking Status: Never smoker HPI HPI Details: EUNICE VARGAS, is a 38 M who presents to the office today for follow up. abd/pelvis CT 04.20.24 Stable location of the liver and midline and towards left side of the midline. Prior surgical anastomosis in the sigmoid colon. 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 Small lymph nodes are seen within the mesenteric fat in the right lower quadrant. The largest lymph node measures 1.5 cm. *BGI established 05.11.24 Pt reports these symptoms have been going on for the past three years; in 2020 had 2/3 of his colon removed, a full colectomy and ileostomy loop in 2021 and had an ileostomy reversal in 2022. Pt reports 6-12 bm per day; usually diarrhea; denies blood in the stool. pt reports off and on stabbing/cramping abd pain on the right side; reports a bm does not affect the pain. OV 1.8.25 pt reports continued diarrhea 6-8 times a day. Reports if he overexerts himself he has abdominal pain/cramping. Pt would like to review recent testing. ROS Const Constitutional: No fatigue, fever(s) or weight change ENT ENT: No difficulty swallowing Gastro GI: Positive for abdominal pain, bloating, diarrhea and excessive flatus; No belching, change in bowel habits, change in stool character, coffee ground emesis, constipation, cramping, heartburn, difficulty swallowing, feeling full early, incontinent of stools, Vomiting blood/hematemesis, Blood in stool, loose stools, Black,tarry stools, nausea/dyspepsia, pain with swallowing, vomiting or other Musc Musculoskeletal: Positive for back pain and muscle cramps; No joint pain Skin Skin: No yellowing of the eye or itchy eyes Psych Psychiatric: Positive for anxiety and No depression Endo Endocrine: No fatigue or weight change Aller/Imm Allergy/Immunologic: No itchy eyes Jose Armando/Lymp Hematologic/Lymphatic: No easy bleeding or easy bruising Exam Const General: cooperative and comfortable Nutritional Appearance: average body habitus and well nourished [facility] Head: normal to inspection Ears: hearing grossly normal bilaterally Nose: external nose normal Face and sinus: normal facial exam Mouth: oral mucosae normal Throat: posterior oropharynx normal Eyes General: appearance normal, both eyes and all related structures Neck Neck: normal visual inspection Chest Chest palpation inspection: normal inspection of the chest and normal palpation of entire chest wall Resp Effort Inspection: normal respiratory effort Auscultation: Bilateral: Clear to Auscultation Cardio Palpation: normal PMI Rate: regular rate Rhythm: regular rhythm GI Inspection: normal to inspection Auscultation: normal bowel sounds Percussion: normal to percussion Palpation: no hepatosplenomegaly Skin General: no rashes or lesions noted Neuro General: patient alert Extrem General: normal to inspection Psych Affect: normal affect Assessment and Plan Assessment and Plan (1) Hepatomegaly: Status: Acute (2) Diarrhea: Status: Acute Plan: Very pleasant 38-year-old gentleman with unfortunate past [...] risk of problems in the future. He (more content not included)... Normal [facility] [place] 07-15-2024 [facility] Office Visit (UCWSTR ) EUNICE VARGAS ([id number]) 1985 Date Time Provider Department 07/15/24 8:15 AM MADI BARFIELD [facility] During your visit today, we recorded the following information about you: Temperature Pulse Respiration Blood pressure 97.1 degrees 67/minute 20/minute 111/74 Weight 84.3 kg Madi Barfield MD 07/15/2024 8:35 AM Signed Patient presents with: Cough: Chest congestion, sinus [...] chest pain, or late onset fever. 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] 08/05/2007 Plantar fascial fibromatosis [M72.2] 07/09/2010 Obesity, Class I, BMI 30-34.9 [E66.811] 07/19/2019 Spondylolisthesis of lumbar region [M43.16] 07/19/2019 Acute midline low back pain with left-sided sci*08/27/2019 Ileus following gastrointestinal surgery (HCC) *05/29/2021 Generalized abdominal pain [R10.84] 05/29/2021 Bowel obstruction (HCC) [K56.609] 09/21/2021 09/23/2021 Malnutrition of moderate degree (HCC) [E44.0] 09/22/2021 Colonic inertia [K59.9] 12/05/2021 Enteritis [K52.9] 04/02/2022 Lactic acidosis [E87.20] 04/02/2022 Sepsis (HCC) [A41.9] 04/02/2022 01/17/2023 Pre-op exam [Z01.818] 11/21/2022 Ileostomy present (HCC) [Z93.2] 11/26/2022 Colon stricture (HCC) [K56.699] 01/21/2023 Level of Service: OFFICE/OUTPATIENT ESTABLISHED LOW [facility] 20 MIN [54418] Encounter Status:Closed by MADI BARFIELD on 07/15/24 Normal [facility] ABD Limited w/ Elastographyo n 05-25-2024 ABD Limited w/ Elastography [facility] Imaging Services [address] [place] [address] [id number] ABD Limited w/ Elastography MR#: [id number] Acct: [id number] Name: EUNICE VARGAS Rep #: [id number] : 1985 M 38 From: Arcadio umanzor MD PCP: [facility]aning Status: REG CLI Study: ABD Limited w/ Elastography Date of Exam: 05/11 01/01 Exam# [id number] Ordering Dr: Tom Campbell DO [id number] STUDY: ABDOMINAL ULTRASOUND - RIGHT UPPER QUADRANT; ELASTOGRAPHY REASON FOR VISIT: Male, 38 years old. Hepatomegaly. TECHNIQUE: Ultrasound evaluation of the right upper quadrant was performed with real-time and static potts-scale imaging. Point quantification shear wave elastography was performed ([email or web address]). TECHNICAL QUALITY: Adequate. COMPARISON: Comparison is made with prior CT scan of the abdomen and pelvis dated April 20, 2024. FINDINGS: Liver: The liver is mildly enlarged and measures 18.6 cm. There is normal echogenicity of the liver. The bile ducts are within normal limits. There is hepatic color flow. The direction of portal flow is hepatopetal. There is no demonstrated mass lesion. Median liver stiffness measured 5 kPa. Once again, the liver is within the midline towards the left upper quadrant. Gallbladder: Normal distended gallbladder. The gallbladder wall measures 2 mm. There is a negative sonographic Duckworth''s sign. There is no pericholecystic fluid. There are no gallstones. Common Bile Duct (C.B.D.): The common bile duct measures 2 mm. Pancreas: There is normal echogenicity of the visualized pancreas. There is no demonstrated pancreatic mass or cyst. Right Kidney: Normal size of the right kidney. The right kidney measures 11.1 cm x 5.9 cm x 5.7 cm. Normal renal cortex. The right cortex measures 2.3 cm. There is no demonstrated renal mass or cyst. There is no right hydronephrosis. US/ABD Limited w/ Elastography IMPRESSION: 1. Liver stiffness measures 5.0 kPa compatible with F0-F1 (Normal to mild liver fibrosis) Metavir score. Electronically Signed: Arcadio Monsivais MD at 13:56 EDT , CC: PERLA Raza; Tom Cambpell, Advertising Agency Manager: Signed Normal [facility] M7400.3302on 05-24-2024 M7400.3302 ___ TESTING PERFORMED AT [facility]. ORIGINAL REPORT ON FILE IN LAB CONTAINS ADDITIONAL TEST SITE INFORMATION. ___ Giardia Lamblia EIA NEGATIVE [facility] Comment on above: Performed By: #### L 7000.0750, L7000.0300, L7000.0700, M600.5000, M7400.3302, M100.0605, M100.7900, M100.6796, M100.637 #### [facility] [address] [place], [address] Ova and Parasites 8623on OP OVA AND PARASITES EX AM, ROUTINE These results were obtained using wet preparation(s) and trichrome stained smear. This test does not include testing for Crytosporidium parvum, Cyclospora, or Microsporidia. One negative specimen does not rule out the possibility of a parasitic infection. ___ TESTING PERFORMED AT [facility]. ORIGINAL REPORT ON FILE IN LAB CONTAINS ADDITIONAL TEST SITE INFORMATION. ___ Ova/Parasite Exam NO OVA, CYSTS, OR PARASITES FOUND. [facility] Comment on above: Performed By: #### L 7000.0750, L7000.0300, L7000.0700, M600.5000, M7400.3302, M100.0605, M100.7900, M100.6796, M100.637 #### [facility] [address] [place], [place], [id number] Calprotectin, Stoolon [address] 56 ug/g Normal 0-120 [facility] Comment on above: Order Comment: Test( s) 852461-Vggw, Neutral; 811031-Pbem, Total was developed and its performance characteristics determined by [facility]. It has not been cleared or approved by the Food and Drug Administration. Result Comment: Conc entration Interpretation Follow-Up < 5 - 50 ug/g Normal None >50 -120 ug/g Borderline Re-evaluate in 4-6 weeks >120 ug/g Abnormal Repeat as clinically indicated Performed at: [facility] [address] [id number] It Portfolio Manager: Sai Moran PhD, Phone: [phone] Performed at: [facility] Lab[address] [id number] It Portfolio Manager: Morgan Vizcarra MD, Phone: [phone] Performed By: #### L 7000.0750, L7000.0300, L7000.0700, M600.5000, M7400.3302, M100.0605, M100.7900, M100.6796, M100.637 #### [facility] [address] [place], [place], [id number] Fecal Fat, Qualitativeon FATS, NEUTRAL Normal Normal . [facility] Comment on above: Order Comment: Test( s) 527048-Iamo, Neutral; 461087-Maot, Total was developed and its performance characteristics determined by [facility]. It has not been cleared or approved by the Food and Drug Administration. Result Comment: Norm al (<60 Droplets/HPF) Performed By: #### L 7000.0750, L7000.0300, L7000.0700, M600.5000, M7400.3302, M100.0605, M100.7900, M100.6796, M100.637 #### [facility] [address] [place], [address] FATS, TOTAL Normal Normal . [facility] Comment on above: Order Comment: Test( s) 634254-Aatl, Neutral; 095641-Tape, Total was developed and its performance characteristics determined by [facility]. It has not been cleared or approved by the Food and Drug Administration. Result Comment: Norm al (<100 Droplets/HPF) Performed By: #### L 7000.0750, L7000.0300, L7000.0700, M600.5000, M7400.3302, M100.0605, M100.7900, M100.6796, M100.637 #### [facility] [address] [place], [place], [address] L7000.0750on 05-18-2024 P ELASTASE,FECA > 800 Normal >200 [facility] Comment on above: Result Comment: Resu lt Units: ug Elast./g Stool of watery consistency received. Since watery stool is inherently dilute, low test results should be interpreted with caution. Retesting on formed stool, if possible, is recommended. Severe Pancreatic Insufficiency: <100 Moderate Pancreatic Insufficiency: 100 - 200 Normal: >200 Performed at: [address] [id number] It Portfolio Manager: Morgan Vizcarra MD, Phone: [phone] Performed By: #### L 7000.0750, L7000.0300, L7000.0700, M600.5000, M7400.3302, M100.0605, M100.7900, M100.6796, M100.637 #### [facility] [address] [place], [place], [address] DEVANTE Comprehensive Panelon DEVANTE TABLE Comment Normal . [facility] Comment on above: Result Comment: Auto antibody Disease Association Condition Frequency --------- Antinuclear Antibody, SLE, mixed connective Direct (DEVANTE-D) tissue diseases --------- dsDNA SLE 40 - 60% --------- Chromatin Drug induced SLE 90% SLE 48 - 97% --------- SSA (Ro) SLE 25 - 35% Sjogren's Syndrome 40 - 70% Lupus 100% --------- SSB (La) SLE 10% Sjogren's Syndrome 30% --------- Sm (anti-Girard) SLE 15 - 30% --------- SHUTTLE ROUTE VEHICLE OPERATOR Mixed Connective Tissue Disease 95% (U1 nRNP, SLE 30 - 50% anti-ribonucleoprotein) Polymyositis and/or Dermatomyositis 20% --------- Scl-70 (antiDNA Scleroderma (diffuse) 20 - 35% topoisomerase) Crest 13% --------- Maggi-1 Polymyositis and/or Dermatomyositis 20 - 40% --------- Centromere B Scleroderma - Crest variant 80% Performed By: #### L 7000.0750, L7000.0300, L7000.0700, M600.5000, M7400.3302, M100.0605, M100.7900, M100.6796, M100.637 #### [facility] [address] [place], [address] ANTI-CENT B AB <0.2 Normal 0.0-0.9 [facility] Comment on above: Performed By: #### L 7000.0750, L7000.0300, L7000.0700, M600.5000, M7400.3302, M100.0605, M100.7900, M100.6796, M100.637 #### [facility] [address] [facility] [place], [address] ANTI-DNA (DS)AB <1 Normal 0-9 [facility] Comment on above: Result Comment: Nega tive <5 Equivocal 5 - 9 Positive >9 Performed By: #### L 7000.0750, L7000.0300, L7000.0700, M600.5000, M7400.3302, M100.0605, M100.7900, M100.6796, M100.637 #### [facility] [address] [facility] [place], [address] ANTI-MAGGI-1 <0.2 Normal 0.0-0.9 [facility] Comment on above: Performed By: #### L 7000.0750, L7000.0300, L7000.0700, M600.5000, M7400.3302, M100.0605, M100.7900, M100.6796, M100.637 #### [facility] [address] [place], [address] ANTI-SS-A < 0.2 Normal 0.0-0.9 [facility] Comment on above: Performed By: #### L 7000.0750, L7000.0300, L7000.0700, M600.5000, M7400.3302, M100.0605, M100.7900, M100.6796, M100.637 #### [facility] [address] [place], [address] ANTI-SS-B < 0.2 Normal 0.0-0.9 [facility] Comment on above: Performed By: #### L 7000.0750, L7000.0300, L7000.0700, M600.5000, M7400.3302, M100.0605, M100.7900, M100.6796, M100.637 #### [facility] [address] [place], [address] ANTICHROMATIN <0.2 Normal 0.0-0.9 [facility] Comment on above: Performed By: #### L 7000.0750, L7000.0300, L7000.0700, M600.5000, M7400.3302, M100.0605, M100.7900, M100.6796, M100.637 #### [facility] [address] [place], [address] ANTISCLERODERM <0.2 Normal 0.0-0.9 [facility] Comment on above: Performed By: #### L 7000.0750, L7000.0300, L7000.0700, M600.5000, M7400.3302, M100.0605, M100.7900, M100.6796, M100.637 #### [facility] [address] [place], [place], [id number] SHUTTLE ROUTE VEHICLE OPERATOR Ab 0.5 AI Normal 0.0-0.9 [facility] Comment on above: Performed By: #### L 7000.0750, L7000.0300, L7000.0700, M600.5000, M7400.3302, M100.0605, M100.7900, M100.6796, M100.637 #### [facility] [address] [place], [place], [id number] GIRARD Ab <0.2 Normal 0.0-0.9 [facility] Comment on above: Performed By: #### L 7000.0750, L7000.0300, L7000.0700, M600.5000, M7400.3302, M100.0605, M100.7900, M100.6796, M100.637 #### [facility] [address] [place], [place], [id number] ANCAon 05-14-2024 Atypical pANCA <1:20 Normal Neg:<1:20 [facility] Comment on above: Order Comment: Test( s) 779796-Aumqsa, Serum or Plasmawas developed and its performance characteristicsdetermined by [email or web address]. It has not been cleared or approvedby the Food and Drug Administration.N Result Comment: The atypical pANCA pattern has been observed in a significant percentage of patients with ulcerative colitis, primary sclerosing cholangitis and autoimmune hepatitis. Performed By: #### L 7000.0750, L7000.0300, L7000.0700, M600.5000, M7400.3302, M100.0605, M100.7900, M100.6796, M100.637 #### [facility] [address] [place], [address] Cytoplasmic Ab <1:20 Normal Neg:<1:20 [facility] Comment on above: Order Comment: Test( s) 921424-Tucfmb, Serum or Plasmawas developed and its performance characteristicsdetermined by [employer]. It has not been cleared or approvedby the Food and Drug Administration.N Performed By: #### L 7000.0750, L7000.0300, L7000.0700, M600.5000, M7400.3302, M100.0605, M100.7900, M100.6796, M100.637 #### [facility] [address] [place], [address] Perinuclear Ab. <1:20 Normal Neg:<1:20 [facility] Comment on above: Order Comment: Test( s) 458895-Dyonkz, Serum or Plasmawas developed and its performance characteristicsdetermined by [employer]. It has not been cleared or approvedby the Food and Drug Administration.N Result Comment: The presence of positive fluorescence exhibiting P-ANCA or C-ANCA patterns alone is not specific for the diagnosis of Blank's Granulomatosis (WG) or microscopic polyangiitis. Decisions about treatment should not be based solely on ANCA IFA results. The International ANCA Group Consensus recommends follow up testing of positive sera with both NE- 3 and MPO-ANCA enzyme immunoassays. As many as 5% serum samples are positive only by EIA. Ref. AM J Clin Pathol 1999;111:507-513. Performed By: #### L 7000.0750, L7000.0300, L7000.0700, M600.5000, M7400.3302, M100.0605, M100.7900, M100.6796, M100.637 #### [facility] [address] [place], [address] Angiotensin Convert Enzymeon 05-14-2024 ANGIOT-CONV.ENZ 65 U/L Normal 14-82 [facility] Comment on above: Order Comment: Test( s) 699261-Ulivsn, Serum or Plasmawas developed and its performance characteristicsdetermined by [employer]. It has not been cleared or approvedby the Food and Drug Administration.N Performed By: #### L 7000.0750, L7000.0300, L7000.0700, M600.5000, M7400.3302, M100.0605, M100.7900, M100.6796, M100.637 #### [facility] [address] [facility] [place], [address] Anti-Mitochondrial ABon ANTIMITOCHON AB <20.0 Normal 0.0-20.0 [facility] Comment on above: Result Comment: Nega tive 0.0 - 20.0 Equivocal 20.1 - 24.9 Positive >24.9 Mitochondrial (M2) Antibodies are found in 90-96% of patients with primary biliary cirrhosis. Performed By: #### L 7000.0750, L7000.0300, L7000.0700, M600.5000, M7400.3302, M100.0605, M100.7900, M100.6796, M100.637 #### [facility] [address] [facility]. [place], [place], [id number] Anti-Smooth Muscle ABSon ANTISMOOTH MUSC 4 Units Normal 0-19 [facility] Comment on above: Order Comment: Test( s) 527159-Tsnalx, Serum or Plasmawas developed and its performance characteristicsdetermined by [employer]. It has not been cleared or approvedby the Food and Drug Administration.N Result Comment: Nega tive 0 - 19 Weak positive 20 - 30 Moderate to strong positive >30 Actin Antibodies are found in 52-85% of patients with autoimmune hepatitis or chronic active hepatitis and in 22% of patients with primary biliary cirrhosis. Performed By: #### L 7000.0750, L7000.0300, L7000.0700, M600.5000, M7400.3302, M100.0605, M100.7900, M100.6796, M100.637 #### [facility] [address] [place], [place], [address] CDIFF (PCR)on 05-14-2024 CDIFF Pending 027 027 NAP1-B1 Presumptive Negative *for epidemiolologic???use C. Diff PCR Negative- No toxigenic C. Diff Detected Normal [facility] Comment on above: Performed By: #### L 7000.0750, L7000.0300, L7000.0700, M600.5000, M7400.3302, M100.0605, M100.7900, M100.6796, M100.637 #### [facility] [address] [place], [address] Celiac Disease Profileon ENDOMYSIAL IGA Negative Normal Negative [facility] Comment on above: Order Comment: Test( s) 548047-Inqhre, Serum or Plasmawas developed and its performance characteristicsdetermined by [employer]. It has not been cleared or approvedby the Food and Drug Administration.N Performed By: #### L 7000.0750, L7000.0300, L7000.0700, M600.5000, M7400.3302, M100.0605, M100.7900, M100.6796, M100.637 #### [facility] [address] [place], [place], [id number] tTG IGA <2 Normal 0-3 [facility] Comment on above: Order Comment: Test( s) 332633-Iuaqpa, Serum or Plasmawas developed and its performance characteristicsdetermined by [employer]. It has not been cleared or approvedby the Food and Drug Administration.N Result Comment: Nega tive 0 - 3 Weak Positive 4 - 10 Positive >10 Tissue Transglutaminase (tTG) has been identified as the endomysial antigen. Studies have demonstr- ated that endomysial IgA antibodies have over 99% specificity for gluten sensitive enteropathy. Performed By: #### L 7000.0750, L7000.0300, L7000.0700, M600.5000, M7400.3302, M100.0605, M100.7900, M100.6796, M100.637 #### [facility] [address] [place], [place], [id number] Ceruloplasminon 05-14-2024 CERULOPLASMIN 30.8 mg/dL Normal 16.0-31.0 [facility] Comment on above: Order Comment: Test( s) 751103-Bdczsw, Serum or Plasmawas developed and its performance characteristicsdetermined by [facility]. It has not been cleared or approvedby the Food and Drug Administration.N Performed By: #### L 7000.0750, L7000.0300, L7000.0700, M600.5000, M7400.3302, M100.0605, M100.7900, M100.6796, M100.637 #### [facility] [address] [facility] [place], [address] Copper, Serum or Plasmaon COPPER, SERUM 124 ug/dL Normal 69-132 [facility] Comment on above: Order Comment: Test( s) 481840-Toabjs, Serum or Plasmawas developed and its performance characteristicsdetermined by [facility]. It has not been cleared or approvedby the Food and Drug Administration.N Result Comment: Dete ction Limit = 5 Performed at: [address] [id number] It Portfolio Manager: Sai Moran PhD, Phone: [phone] Performed at: [address] [id number] It Portfolio Manager: Morgan Vizcarra MD, Phone: [phone] Performed By: #### L 7000.0750, L7000.0300, L7000.0700, M600.5000, M7400.3302, M100.0605, M100.7900, M100.6796, M100.637 #### [facility] [address] [facility] [place], [address] ENTERIC PATHOGEN PANEL STOOL on 05-14-2024 EP PANEL Normal Reference Ran ge = Not Detected GI pathogens Pnl Stl RAVINDER+probe Nucleic acid amplification test method GI pathogens Pnl Stl RAVINDER+probe Not detected for Campylobacter group, Salmonella species, Shigella species, Vibrio Group, Yersinia enterocolitica, EHEC (Shiga Toxin 1, Shiga Toxin 2), Norovirus Gl/Gll, and Rotavirus A. Other common stool pathogens are not detected on this panel include: Aeromonas/Plesiomonas or parasites. Order testing for these organisms separately if suspected. This is an amplified DNA test which makes it both specific and sensitive. CAMPYLOBACTER Not Detected Norovirus Not Detected Rotavirus Not Detected Salmonella Not Detected Shiga Toxin Not Detected Shigella sp. Not Detected VIBRIO Not Detected Yersinia Not Detected Normal [facility] Comment on above: Performed By: #### L 7000.0750, L7000.0300, L7000.0700, M600.5000, M7400.3302, M100.0605, M100.7900, M100.6796, M100.637 #### [facility] [address] [place], [place], [id number] Hepatitis Panel Acuteon HEP B CORE,IgM Negative Normal Negative [facility] Comment on above: Order Comment: Test( s) 591025-Lnlsgc, Serum or Plasmawas developed and its performance characteristicsdetermined by [employer]. It has not been cleared or approvedby the Food and Drug Administration.N Performed By: #### L 7000.0750, L7000.0300, L7000.0700, M600.5000, M7400.3302, M100.0605, M100.7900, M100.6796, M100.637 #### [facility] [address] [facility]. [place], [place], [id number] HEP B SURF AG Negative Normal Negative [facility] Comment on above: Order Comment: Test( s) 836494-Xpooek, Serum or Plasmawas developed and its performance characteristicsdetermined by [employer]. It has not been cleared or approvedby the Food and Drug Administration.N Performed By: #### L 7000.0750, L7000.0300, L7000.0700, M600.5000, M7400.3302, M100.0605, M100.7900, M100.6796, M100.637 #### [facility] [address] [place], [address] HEP C VIRUS AB Non-Reactive Normal Non Reactive [facility] Comment on above: Order Comment: Test( s) 683295-Rvgkky, Serum or Plasmawas developed and its performance characteristicsdetermined by [employer]. It has not been cleared or approvedby the Food and Drug Administration.N Performed By: #### L 7000.0750, L7000.0300, L7000.0700, M600.5000, M7400.3302, M100.0605, M100.7900, M100.6796, M100.637 #### [facility] [address] [place], [address] HEPATITIS A-IgM Negative Normal Negative [facility] Comment on above: Order Comment: Test( s) 409199-Qfcybr, Serum or Plasmawas developed and its performance characteristicsdetermined by [employer]. It has not been cleared or approvedby the Food and Drug Administration.N Result Comment: A ne gative anti-HAV IgM result suggests no recent or current HAV infection. Performed By: #### L 7000.0750, L7000.0300, L7000.0700, M600.5000, M7400.3302, M100.0605, M100.7900, M100.6796, M100.637 #### [facility] [address] [place], [address] JENNIFER + Protein Elect, Serumon 05-14-2024 Albumin [Mass/Vol] 4.1 g/dL Normal 2.9-4.4 [facility] Comment on above: Order Comment: Test( s) 358310-Btcrrl, Serum or Plasmawas developed and its performance characteristicsdetermined by [facility]. It has not been cleared or approvedby the Food and Drug Administration.N Performed By: #### L 7000.0750, L7000.0300, L7000.0700, M600.5000, M7400.3302, M100.0605, M100.7900, M100.6796, M100.637 #### [facility] [address] [place], [place], [id number] [phone] Albumin/Globulin [Mass ratio] 1.4 {ratio} Normal 0.7-1.7 [facility] Comment on above: Order Comment: Test( s) 541591-Zfswlw, Serum or Plasmawas developed and its performance characteristicsdetermined by [employer]. It has not been cleared or approvedby the Food and Drug Administration.N Performed By: #### L 7000.0750, L7000.0300, L7000.0700, M600.5000, M7400.3302, M100.0605, M100.7900, M100.6796, M100.637 #### [facility] [address] [place], [address] URYGV-0-THGV 0.2 g/dL Normal 0.0-0.4 [facility] Comment on above: Order Comment: Test( s) 248858-Mfyalr, Serum or Plasmawas developed and its performance characteristicsdetermined by [employer]. It has not been cleared or approvedby the Food and Drug Administration.N Performed By: #### L 7000.0750, L7000.0300, L7000.0700, M600.5000, M7400.3302, M100.0605, M100.7900, M100.6796, M100.637 #### [facility] [address] [place], [place], [id number] ([phone] QQBDC-9-DXHV 0.9 g/dL Normal 0.4-1.0 [facility] Comment on above: Order Comment: Test( s) 424298-Bpltdj, Serum or Plasmawas developed and its performance characteristicsdetermined by [facility]. It has not been cleared or approvedby the Food and Drug Administration.N Performed By: #### L 7000.0750, L7000.0300, L7000.0700, M600.5000, M7400.3302, M100.0605, M100.7900, M100.6796, M100.637 #### [facility] [address] [place], [address] BETA GLOBULIN 1.0 g/dL Normal 0.7-1.3 [facility] Comment on above: Order Comment: Test( s) 717347-Phobwu, Serum or Plasmawas developed and its performance characteristicsdetermined by [email or web address]. It has not been cleared or approvedby the Food and Drug Administration.N Performed By: #### L 7000.0750, L7000.0300, L7000.0700, M600.5000, M7400.3302, M100.0605, M100.7900, M100.6796, M100.637 #### [facility] [address] [place], [address] GAMMA GLOBULIN 0.9 g/dL Normal 0.4-1.8 [facility] Comment on above: Order Comment: Test( s) 090790-Wgeekc, Serum or Plasmawas developed and its performance characteristicsdetermined by [employer]. It has not been cleared or approvedby the Food and Drug Administration.N Performed By: #### L 7000.0750, L7000.0300, L7000.0700, M600.5000, M7400.3302, M100.0605, M100.7900, M100.6796, M100.637 #### [facility] [address] [place], [address] Globulin (S) [Mass/Vol] 3.0 g/dL Normal 2.2-3.9 [facility] Comment on above: Order Comment: Test( s) 677016-Iowpoq, Serum or Plasmawas developed and its performance characteristicsdetermined by [facility] [employer] [facility]. It has not been cleared or approvedby the Food and Drug Administration.N Performed By: #### L 7000.0750, L7000.0300, L7000.0700, M600.5000, M7400.3302, M100.0605, M100.7900, M100.6796, M100.637 #### [facility] [address] [place], [address] JENNIFER RESULT,S Comment Normal . [facility] Comment on above: Order Comment: Test( s) 659532-Iujgui, Serum or Plasmawas developed and its performance characteristicsdetermined by [email or web address]. It has not been cleared or approvedby the Food and Drug Administration.N Result Comment: No m onoclonality detected. Performed By: #### L 7000.0750, L7000.0300, L7000.0700, M600.5000, M7400.3302, M100.0605, M100.7900, M100.6796, M100.637 #### [facility] [address] [place], [address] IMMUNOGLOB A QN 273 mg/dL Normal 90-386 [facility] Comment on above: Order Comment: Test( s) 469137-Ulhqxy, Serum or Plasmawas developed and its performance characteristicsdetermined by [email or web address]. It has not been cleared or approvedby the Food and Drug Administration.N Performed By: #### L 7000.0750, L7000.0300, L7000.0700, M600.5000, M7400.3302, M100.0605, M100.7900, M100.6796, M100.637 #### [facility] [address] [place], [address] IMMUNOGLOB G QN 894 mg/dL Normal 603-1613 [facility] Comment on above: Order Comment: Test( s) 048221-Viaryi, Serum or Plasmawas developed and its performance characteristicsdetermined by [employer]. It has not been cleared or approvedby the Food and Drug Administration.N Performed By: #### L 7000.0750, L7000.0300, L7000.0700, M600.5000, M7400.3302, M100.0605, M100.7900, M100.6796, M100.637 #### [facility] [address] [place], [place], [address] IMMUNOGLOB M QN 159 mg/dL Normal 20-172 [facility] Comment on above: Order Comment: Test( s) 640284-Dibpft, Serum or Plasmawas developed and its performance characteristicsdetermined by [employer]. It has not been cleared or approvedby the Food and Drug Administration.N Performed By: #### L 7000.0750, L7000.0300, L7000.0700, M600.5000, M7400.3302, M100.0605, M100.7900, M100.6796, M100.637 #### [facility] [address] [place], [place], [id number] M-Andrew Not Observed Normal Not Observed [facility] Comment on above: Order Comment: Test( s) 327080-Jnwbuu, Serum or Plasmawas developed and its performance characteristicsdetermined by [employer]. It has not been cleared or approvedby the Food and Drug Administration.N Performed By: #### L 7000.0750, L7000.0300, L7000.0700, M600.5000, M7400.3302, M100.0605, M100.7900, M100.6796, M100.637 #### [facility] [address] [place], [place], [id number] NOTE: Comment Normal . [facility] Comment on above: Order Comment: Test( s) 425478-Lysjnm, Serum or Plasmawas developed and its performance characteristicsdetermined by [employer]. It has not been cleared or approvedby the Food and Drug Administration.N Result Comment: Prot ein electrophoresis scan will follow via computer, mail, or transportation specialist delivery. Performed By: #### L 7000.0750, L7000.0300, L7000.0700, M600.5000, M7400.3302, M100.0605, M100.7900, M100.6796, M100.637 #### [facility] [address] [place], [address] Protein [Mass/Vol] 7.1 g/dL Normal 6.0-8.5 [facility] Comment on above: Order Comment: Test( s) 589065-Zxokqv, Serum or Plasmawas developed and its performance characteristicsdetermined by [employer]. It has not been cleared or approvedby the Food and Drug Administration.N Performed By: #### L 7000.0750, L7000.0300, L7000.0700, M600.5000, M7400.3302, M100.0605, M100.7900, M100.6796, M100.637 #### [facility] [address] [place], [address] Immunoglobulins G/A/M/Jake IMMUNOGLOB E QN 210 IU/mL Normal 6-495 [facility] Comment on above: Order Comment: Test( s) 116253-Eohmvf, Serum or Plasmawas developed and its performance characteristicsdetermined by [employer]. It has not been cleared or approvedby the Food and Drug Administration.N Performed By: #### L 7000.0750, L7000.0300, L7000.0700, M600.5000, M7400.3302, M100.0605, M100.7900, M100.6796, M100.637 #### [facility] [address] [place], [address] L2100.0000on 05-14-2024 ACCA 34 units Normal 0-90 [facility] Comment on above: Order Comment: Test( s) 607215-Iuxhms, Serum or Plasmawas developed and its performance characteristicsdetermined by [employer]. It has not been cleared or approvedby the Food and Drug Administration.N Result Comment: Nega tive: <80 Equivocal: 80-90 Positive: >90 Performed By: #### L 7000.0750, L7000.0300, L7000.0700, M600.5000, M7400.3302, M100.0605, M100.7900, M100.6796, M100.637 #### [facility] [address] [place], [place], [id number] ALCA 9 units Normal 0-60 [facility] Comment on above: Order Comment: Test( s) 301763-Cpdhkd, Serum or Plasmawas developed and its performance characteristicsdetermined by [facility]. It has not been cleared or approvedby the Food and Drug Administration.N Result Comment: Nega tive:<55 Equivocal: 55-60 Positive: >60 Performed By: #### L 7000.0750, L7000.0300, L7000.0700, M600.5000, M7400.3302, M100.0605, M100.7900, M100.6796, M100.637 #### [facility] [address] [place], [address] AMCA 32 units Normal 0-100 [facility] Comment on above: Order Comment: Test( s) 182699-Hlnsha, Serum or Plasmawas developed and its performance characteristicsdetermined by [facility]. It has not been cleared or approvedby the Food and Drug Administration.N Result Comment: Nega tive: <90 Equivocal: 90-100 Positive: >100 This test was developed and its performance characteristics determined by [facility]. It has not been cleared or approved by the Food and Drug Administration. The FDA has determined that such clearance or approval is not necessary. Performed By: #### L 7000.0750, L7000.0300, L7000.0700, M600.5000, M7400.3302, M100.0605, M100.7900, M100.6796, M100.637 #### [facility] [address] [place], [address] Atypical pANCA Negative Normal Negative [facility] Comment on above: Order Comment: Test( s) 142607-Xnswcx, Serum or Plasmawas developed and its performance characteristicsdetermined by [employer]. It has not been cleared or approvedby the Food and Drug Administration.N Performed By: #### L 7000.0750, L7000.0300, L7000.0700, M600.5000, M7400.3302, M100.0605, M100.7900, M100.6796, M100.637 #### [facility] [address] [place], [address] COMMENT Comment Normal . [facility] Comment on above: Order Comment: Test( s) 714686-Tkplqm, Serum or Plasmawas developed and its performance characteristicsdetermined by [facility]. It has not been cleared or approvedby the Food and Drug Administration.N Result Comment: Myranda rain is not suggestive of Inflammatory Bowel Disease Performed By: #### L 7000.0750, L7000.0300, L7000.0700, M600.5000, M7400.3302, M100.0605, M100.7900, M100.6796, M100.637 #### [facility] [address] [place], [address] Result Comment: Not infected with HCV unless early or acute infection is suspected (which may be delayed in an immunocompromised individual), or other evidence exists to indicate HCV infection. Shilpi 8 units Normal 0-50 [facility] Comment on above: Order Comment: Test( s) 582233-Rdksxh, Serum or Plasmawas developed and its performance characteristicsdetermined by [employer]. It has not been cleared or approvedby the Food and Drug Administration.N Result Comment: Nega tive: <45 Equivocal: 45-50 Positive: >50 Performed By: #### L 7000.0750, L7000.0300, L7000.0700, M600.5000, M7400.3302, M100.0605, M100.7900, M100.6796, M100.637 #### [facility] [address] [place], [place], [id number] L5500.0550on 05-14-2024 BEEF <0.10 Normal Class 0 [facility] Comment on above: Performed By: #### L 7000.0750, L7000.0300, L7000.0700, M600.5000, M7400.3302, M100.0605, M100.7900, M100.6796, M100.637 #### [facility] [address] [place], [address] CHOCOLATE <0.10 Normal Class 0 [facility] Comment on above: Performed By: #### L 7000.0750, L7000.0300, L7000.0700, M600.5000, M7400.3302, M100.0605, M100.7900, M100.6796, M100.637 #### [facility] [address] [place], [place], [id number] CODFISH <0.10 Normal Class 0 [facility] Comment on above: Performed By: #### L 7000.0750, L7000.0300, L7000.0700, M600.5000, M7400.3302, M100.0605, M100.7900, M100.6796, M100.637 #### [facility] [address] [place], [place], [id number] COMMENT Comment Normal . [facility] Comment on above: Result Comment: Magdalena mendes of Specific IgE Class Description of Class ----- < 0.10 0 Negative 0.10 - 0.31 0/I Equivocal/Low 0.32 - 0.55 I Low 0.56 - 1.40 II Moderate 1.41 - 3.90 III High 3.91 - 19.00 IV Very High 19.01 - 100.00 V Very High >100.00 Very High Performed By: #### L 7000.0750, L7000.0300, L7000.0700, M600.5000, M7400.3302, M100.0605, M100.7900, M100.6796, M100.637 #### [facility] [address] [place], [address] CORN 0.17 kU/L Abnormal Class 0/I [facility] Comment on above: Performed By: #### L 7000.0750, L7000.0300, L7000.0700, M600.5000, M7400.3302, M100.0605, M100.7900, M100.6796, M100.637 #### [facility] [address] [place], [address] EGG, WHOLE <0.10 Normal Class 0 [facility] Comment on above: Result Comment: Perf ormed at: [facility] [address] [id number] It Portfolio Manager: Sai Moran PhD, Phone: [phone] Performed at: [facility] [address] [id number] It Portfolio Manager: Morgan Vizcarra MD, Phone: [phone] Performed By: #### L 7000.0750, L7000.0300, L7000.0700, M600.5000, M7400.3302, M100.0605, M100.7900, M100.6796, M100.637 #### [facility] [address] [place], [address] MILK (COW) 0.17 kU/L Abnormal Class 0/I [facility] Comment on above: Performed By: #### L 7000.0750, L7000.0300, L7000.0700, M600.5000, M7400.3302, M100.0605, M100.7900, M100.6796, M100.637 #### [facility] [address] [place], [address] MUSSELS <0.10 Normal Class 0 [facility] Comment on above: Performed By: #### L 7000.0750, L7000.0300, L7000.0700, M600.5000, M7400.3302, M100.0605, M100.7900, M100.6796, M100.637 #### [facility] [address] [place], [place], [id number] [phone] PEANUT 0.21 kU/L Abnormal Class 0/I [facility] Comment on above: Performed By: #### L 7000.0750, L7000.0300, L7000.0700, M600.5000, M7400.3302, M100.0605, M100.7900, M100.6796, M100.637 #### [facility] [address] [place], [place], [id number] ([phone] PORK 0.78 kU/L Abnormal Class II [facility] Comment on above: Performed By: #### L 7000.0750, L7000.0300, L7000.0700, M600.5000, M7400.3302, M100.0605, M100.7900, M100.6796, M100.637 #### [facility] [address] [place], [address] SALMON <0.10 Normal Class 0 [facility] Comment on above: Performed By: #### L 7000.0750, L7000.0300, L7000.0700, M600.5000, M7400.3302, M100.0605, M100.7900, M100.6796, M100.637 #### [facility] [address] [place], [place], [address] SHRIMP <0.10 Normal Class 0 [facility] Comment on above: Performed By: #### L 7000.0750, L7000.0300, L7000.0700, M600.5000, M7400.3302, M100.0605, M100.7900, M100.6796, M100.637 #### [facility] [address] [place], [address] SOYBEAN <0.10 Normal Class 0 [facility] Comment on above: Performed By: #### L 7000.0750, L7000.0300, L7000.0700, M600.5000, M7400.3302, M100.0605, M100.7900, M100.6796, M100.637 #### [facility] [address] [place], [address] TUNA <0.10 Normal Class 0 [facility] Comment on above: Performed By: #### L 7000.0750, L7000.0300, L7000.0700, M600.5000, M7400.3302, M100.0605, M100.7900, M100.6796, M100.637 #### [facility] [address] [place], [address] WHEAT 0.22 kU/L Abnormal Class 0/I [facility] Comment on above: Performed By: #### L 7000.0750, L7000.0300, L7000.0700, M600.5000, M7400.3302, M100.0605, M100.7900, M100.6796, M100.637 #### [facility] [address] [place], [address] Quantiferon TB-Gold+on 05-14 QFT MITOGEN LUZ > 10.00 Normal . [facility] Comment on above: Order Comment: Test( s) 677847-Wcjxyw, Serum or Plasmawas developed and its performance characteristicsdetermined by [employer]. It has not been cleared or approvedby the Food and Drug Administration.N Performed By: #### L 7000.0750, L7000.0300, L7000.0700, M600.5000, M7400.3302, M100.0605, M100.7900, M100.6796, M100.637 #### [facility] [address] [place], [address] QFT NIL VALUE 0.01 IU/mL Normal . [facility] Comment on above: Order Comment: Test( s) 725438-Tgdzxi, Serum or Plasmawas developed and its performance characteristicsdetermined by [employer]. It has not been cleared or approvedby the Food and Drug Administration.N Performed By: #### L 7000.0750, L7000.0300, L7000.0700, M600.5000, M7400.3302, M100.0605, M100.7900, M100.6796, M100.637 #### [facility] [address] [place], [place], [phone] ([phone]) QFT TB GOLD+ Comment Normal . [facility] Comment on above: Order Comment: Test( s) 454261-Sdafna, Serum or Plasmawas developed and its performance characteristicsdetermined by [facility]. It has not been cleared or approvedby the Food and Drug Administration.N Result Comment: Stoney tiFERON-TB Gold Plus is a qualitative indirect test for M tuberculosis infection (including disease) and is intended for use in conjunction with risk assessment, radiography, and other medical and diagnostic evaluations. The QuantiFERON-TB Gold Plus result is determined by subtracting the Nil value from either TB antigen (Ag) value. The Mitogen tube serves as a control for the test. Performed By: #### L 7000.0750, L7000.0300, L7000.0700, M600.5000, M7400.3302, M100.0605, M100.7900, M100.6796, M100.637 #### [facility] [address] [place], [place], [id number] QFT TB POS CRIT Negative Normal Negative [facility] Comment on above: Order Comment: Test( s) 284734-Htbujj, Serum or Plasmawas developed and its performance characteristicsdetermined by [facility]. It has not been cleared or approvedby the Food and Drug Administration.N Result Comment: No r esponse to M tuberculosis antigens detected. Infection with M tuberculosis is unlikely, but high risk individuals should be considered for additional testing (ATS/IDSA/CDC Clinical Practice Guidelines, 2017). The reference range is an Antigen minus Nil result of <0.35 IU/mL. The specimen received for QuantiFERON testing was incubated by the ordering institution. Specific procedures outlined in our Directory of Services and in the package insert for the QuantiFERON Gold (In Tube) test must be followed to enable for proper stimulation of cells for the production of interferon gamma. Chemiluminescence immunoassay methodology Performed By: #### L 7000.0750, L7000.0300, L7000.0700, M600.5000, M7400.3302, M100.0605, M100.7900, M100.6796, M100.637 #### [facility] [address] [place], [address] QFT TB1+ AG LUZ 0.03 IU/mL Normal . [facility] Comment on above: Order Comment: Test( s) 959935-Gtuhxl, Serum or Plasmawas developed and its performance characteristicsdetermined by [facility]. It has not been cleared or approvedby the Food and Drug Administration.N Performed By: #### L 7000.0750, L7000.0300, L7000.0700, M600.5000, M7400.3302, M100.0605, M100.7900, M100.6796, M100.637 #### [facility] [address] [place], [address] (192) QFT TB2+ AG LUZ 0.02 IU/mL Normal . [facility] Comment on above: Order Comment: Test( s) 546905-Krvwwj, Serum or Plasmawas developed and its performance characteristicsdetermined by [employer]. It has not been cleared or approvedby the Food and Drug Administration.N Performed By: #### L 7000.0750, L7000.0300, L7000.0700, M600.5000, M7400.3302, M100.0605, M100.7900, M100.6796, M100.637 #### [facility] [address] [place], [address] Stool Lactoferrin/WBCon 10-0 WBCST Normal Reference Ran ge = Negative Fecal WBC Lactoferrin A Positive: Fecal WBC Lactoferrin present A Normal [facility] Comment on above: Performed By: #### L 7000.0750, L7000.0300, L7000.0700, M600.5000, M7400.3302, M100.0605, M100.7900, M100.6796, M100.637 #### [facility] [address] [place], [place], [address] Stool Occult Blood iFOBon STOB Positive Normal [facility] Comment on above: Performed By: #### L 7000.0750, L7000.0300, L7000.0700, M600.5000, M7400.3302, M100.0605, M100.7900, M100.6796, M100.637 #### [facility] [address] [place], [address] CRPon 05-11-2024 C-REACTIVE PROT 7.88 mg/L High 0.0-3.0 [facility] Comment on above: Result Comment: C-Re active Protein (CRP) provides useful information for the diagnosis, therapy and monitoring of inflammatory processes and associated diseases. For the evaluation of Relative Risk for Cardiovascular Disease, a High Sensitivity CRP (HSCRP) should be ordered. Performed By: #### L 7000.0750, L7000.0300, L7000.0700, M600.5000, M7400.3302, M100.0605, M100.7900, M100.6796, M100.637 #### [facility] [address] [place], [address] Erythrocyte Sed Rateon 05-11 SED RATE 7 mm/hr Normal 0-20 [facility] Comment on above: Performed By: #### L 7000.0750, L7000.0300, L7000.0700, M600.5000, M7400.3302, M100.0605, M100.7900, M100.6796, M100.637 #### [facility] [address] [place], [address] Ferritinon 05-11-2024 Ferritin [Mass/Vol] 98 ng/mL Normal 26-388 [facility] Comment on above: Performed By: #### L 7000.0750, L7000.0300, L7000.0700, M600.5000, M7400.3302, M100.0605, M100.7900, M100.6796, M100.637 #### [facility] [address] [place], [address] Gastroenterology Visit Repor ton 05-11-2024 Gastroenterology Visit Report [facility] [address] [place] [address] OFFICE VISIT Date of Service: 05/11/24 MR#: [id number] Acct: [id number] Name: EUNICE VARGAS Rep #: [id number] : 1985 Provider: Tom Campbell DO Age/Sex: 38/M [place] [facility] [place] Status: Signed Intake Vital Signs 08/14/23 21:15 Height 5 ft 7 in Intake Visit Reasons: COLONIC INERTIA Allergies No Known Allergies Allergy (Verified 12/04/23 09:44) Medications ???Medication ???Instructions ???Recorded ???Confirmed ???Type NK 08/14/23 05/11/24 History [facility] Medical History (Updated 05/11/24 @ 09:[address] Santos Friend, DO) Ileostomy present Surgical History (Updated 12/04/23 @ 09:44 by Gabbi Castle) H/O spinal fusion History of appendectomy History of reversal of ileostomy H/O colectomy Social History (System 12/04/23 @ 09:44 by Gabbi Castle) Smoking Status: Never smoker HPI HPI Details: EUNICE VARGAS, is a 38 M who presents to the office today for initial consult. abd/pelvis CT 9.06.03 Stable location of the liver and midline and towards left side of the midline. Prior surgical anastomosis in the sigmoid colon. 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 Small lymph nodes are seen within the mesenteric fat in the right lower quadrant. The largest lymph node measures 1.5 cm. *BGI established 05.11.24 Pt reports these symptoms have been going on for the past three years; in 2020 had 2/3 of his colon removed, a full colectomy and ileostomy loop in 2021 and had an ileostomy reversal in 2022. Pt reports 6-12 bm per day; usually diarrhea; denies blood in the stool. pt reports off and on stabbing/cramping abd pain on the right side; reports a bm does not affect the pain. ROS Const Constitutional: Positive for weight change (weight gain); No fatigue or fever(s) ENT ENT: No difficulty swallowing Gastro GI: Positive for abdominal pain, bloating, change in bowel habits, diarrhea and excessive flatus; No belching, change in stool character, coffee ground emesis, constipation, cramping, heartburn, difficulty swallowing, feeling full early, incontinent of stools, Vomiting blood/hematemesis, Blood in stool, loose stools, Black,tarry stools, nausea/dyspepsia, pain with swallowing, vomiting or other Musc Musculoskeletal: Positive for back pain and muscle cramps; No joint pain Skin Skin: No yellowing of the eye or itchy eyes Psych Psychiatric: Positive for anxiety, No depression and Positive for hyperactivity Endo Endocrine: Positive for weight change (weight gain); No fatigue Aller/Imm Allergy/Immunologic: No itchy eyes Jose Armando/Lymp Hematologic/Lymphatic: No easy bleeding or easy bruising Exam Const General: cooperative and comfortable Nutritional Appearance: average body habitus and well nourished [facility] Head: normal to inspection Ears: hearing grossly normal bilaterally Nose: external nose normal Face and sinus: normal facial exam Mouth: oral mucosae normal Throat: posterior oropharynx normal Eyes General: appearance normal, both eyes and all related structures Neck Neck: normal visual inspection Chest Chest palpation inspection: normal inspection of the chest and normal palpation of entire chest wall Resp Effort Inspection: normal respiratory effort Auscultation: Bilateral: Clear to Auscultation Cardio Palpation: normal PMI Rate: regular rate Rhythm: regular rhythm GI Inspection: normal to inspection Auscultation: normal bowel sounds Percussion: normal to percussion Palpation: no hepatosplenomegaly Skin General: no rashes or lesions noted Neuro General: patient alert Extrem General: normal to inspection Psych Affect: normal affect Assessment and Plan Assessment and Plan (1) Hepatomegaly: Status: Acute (2) Diarrhea: Status: Acute Plan: Very pleasant 38-year-old gentleman with unfortunate past [...] approximately 6-12 bowel movements a day. Recommendations: -Biochemical workup for (more content not included)... Normal [facility] Ironon 05-11-2024 Iron [Mass/Vol] 109 ug/dL Normal 65-175 [facility] Comment on above: Performed By: #### L 7000.0750, L7000.0300, L7000.0700, M600.5000, M7400.3302, M100.0605, M100.7900, M100.6796, M100.637 #### [facility] [address] [place], [address] Iron Binding Capacity,Totalo n 05-11-2024 TIBC 390 ug/dL Normal 250-450 [facility] Comment on above: Performed By: #### L 7000.0750, L7000.0300, L7000.0700, M600.5000, M7400.3302, M100.0605, M100.7900, M100.6796, M100.637 #### [facility] [address] [place], [address] Retic Panelon 05-11-2024 IM RET FRACTION 8.90 Normal 3.00-15.90 [facility] Comment on above: Performed By: #### L 7000.0750, L7000.0300, L7000.0700, M600.5000, M7400.3302, M100.0605, M100.7900, M100.6796, M100.637 #### [facility] [address] [place], [address] RET-HE 34.8 pg Normal 30-35 [facility] Comment on above: Performed By: #### L 7000.0750, L7000.0300, L7000.0700, M600.5000, M7400.3302, M100.0605, M100.7900, M100.6796, M100.637 #### [facility] [address] [place], [address] Retic Count 1.95 High 0.5-1.5 [facility] Comment on above: Performed By: #### L 7000.0750, L7000.0300, L7000.0700, M600.5000, M7400.3302, M100.0605, M100.7900, M100.6796, M100.637 #### [facility] [address] [place], [address] Vitamin B12on 05-11-2024 Cobalamin (Vitamin B12) [Mass/Vol] 1049 pg/mL High 211-911 [facility] Comment on above: Performed By: #### L 7000.0750, L7000.0300, L7000.0700, M600.5000, M7400.3302, M100.0605, M100.7900, M100.6796, M100.637 #### [facility] [address] [place], [address] [facility] EUNICE VARGAS ([id number]) 1985 Date Time Provider Department 04/29/24 JESUS RAZA [facility] During your visit today, we recorded the following information about you: Jesus Raza APRN.CNP 04/29/2024 8:48 AM Signed Please fax consult to Dr. Campbell. Caroline Chamberlain MA 04/29/2024 12:39 PM Signed This has been faxed as requested. Caroline Chamberlain MA Allergies As of Date: 04/29/2024 Noted Allergy Reaction ADHESIVE 09/26/2022 14 - Other: See Comments Comments: Large blisters Date Reviewed: 04/20/2024 Reviewed by: Susana Rachel MA - Fully Assessed Reason for Visit: Orders [681] Problem List As Of Date 04/29/2024 Noted Resolved ATTN DEFICIT NONHYPERACT [F98.8] 08/05/2007 [...] acidosis [E87.20] 04/02/2022 Sepsis (HCC) [A41.9] 04/02/2022 01/17/2023 Pre-op exam [Z01.818] 11/21/2022 Ileostomy present (HCC) [Z93.2] 11/26/2022 Colon stricture (HCC) [K56.699] 01/21/2023 Encounter Status:Closed by CAROLINE CHAMBERLAIN on 04/29/24 Normal [facility] XR CHEST 2V FRONTAL/LATon [facility] XR Chest PA and Lateralon IMPRESSION: No acute radiographic abnormality. Advertising Agency Manager: PSCB Transcribe Date/Time: Jul 17 2023 5:16P Dictated by : EUNICE ANAYA MD This examination was interpreted and the report reviewed and electronically signed by: EUNICE ANAYA MD on Jul 17 2023 5:17PM [facility] DIVISION OF RADIOLOGY * * *Final Report* * * DATE OF EXAM: Jul 17 2023 5:14PM WOX 5291 - XR CHEST 2V FRONTAL/LAT / PROCEDURE REASON: Acute cough * * * * Physician Interpretation * * * * EXAMINATION: CHEST RADIOGRAPH (2 VIEW FRONTAL & LATERAL) CLINICAL HISTORY: Acute cough MQ: XC2_6 EXAM DATE/TIME: 07/17/2023 5:14 PM COMPARISON: 01/29/2023 RESULT: Lines, tubes, and devices: None. Lungs and pleura: No consolidation. No lung mass. No pleural effusion. No pneumothorax. There is mild elevation of the right hemidiaphragm, unchanged. Cardiomediastinal silhouette: Normal cardiomediastinal silhouette. Bones and soft tissues: Unremarkable. DIVISION OF RADIOLOGY Provider, [facility] - 07/17/2023 * * *Final Report* * * DATE OF EXAM: Jul 17 2023 5:14PM WOX 5291 - XR CHEST 2V FRONTAL/LAT / PROCEDURE REASON: Acute cough * * * * Physician Interpretation * * * * EXAMINATION: CHEST RADIOGRAPH (2 VIEW FRONTAL & LATERAL) CLINICAL HISTORY: Acute cough MQ: XC2_6 EXAM DATE/TIME: 07/17/2023 5:14 PM COMPARISON: 01/29/2023 RESULT: Lines, tubes, and devices: None. Lungs and pleura: No consolidation. No lung mass. No pleural effusion. No pneumothorax. There is mild elevation of the right hemidiaphragm, unchanged. Cardiomediastinal silhouette: Normal cardiomediastinal silhouette. Bones and soft tissues: Unremarkable. IMPRESSION IMPRESSION: No acute radiographic abnormality. Advertising Agency Manager: JENIFFER Transcribe Date/Time: Jul 17 2023 5:16P Dictated by : EUNICE ANAYA MD This examination was interpreted and the report reviewed and electronically signed by: EUNICE ANAYA MD on Jul 17 2023 5:17PM [facility] Radiology Study observation (narrative) [facility] XR Chest PA and LateralOrder ed By: Ccf Provider on 07-17-2023 [facility] CNOVon 04-22-2023 CNOV Office Visit (AGOCMR ) EUNICE VARGAS ([id number]) 1985 M Date Time Provider Department 04/22/23 11:00 AM ROLANDO EUGENE AGOLisa During your visit today, we recorded the following information about you: Pulse Blood pressure Weight Height 66/minute 135/92 77.6 kg 1.676 m Rolando Eugene DO 04/22/2023 11:06 AM Signed Rolando Eugene DO [facility] General Orthopedics - Orthopedic Spine Surgeon [address] [place] [address] 0 [place] [address] Phone: [phone] FAX: [phone] SPINE SURGERY OUTPATIENT CONSULT SERVICE DATE: 04/16/2023 [...] him the most. He had participated in post acute care registered nurse with no relief. His lumbar x-rays at [...] much today. PREVIOUS CONSERVATIVE TREATMENTS: Prednisone Flexeril direct care worker x2 PREVIOUS SURGERY: SURGERY #1: L4-5 TLIF with PSF on 07/19/[address] 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 No significant central lateral reces (more content not included)... Normal [facility] MRI LUMBAR SPINE WO IVCONon 04-21-2023 [facility] CNOVon 03-18-2023 CNOV Office Visit (AGOCMR ) EUNICE VARGAS ([id number]) 1985 M Date Time Provider Department 03/18/23 1:00 PM ROLANDO EUGENE AGOR During your visit today, we recorded the following information about you: Pulse Respiration Blood pressure Weight 77/minute 16/minute 123/70 77.6 kg Height 1.676 m Rolando Eugene DO 03/18/2023 1:43 PM Signed Rolando Eugene DO [facility] General Orthopedics - Orthopedic Spine Surgeon [address] 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 Benign affect. CARDIOVASCULAR: Palpable pulses. (more content not included)... Normal [facility] XR LUMBAR 2V FLEX/EXTon XR LUMBAR 2V FLEX/EXT * * *Final Report* * * DATE OF EXAM: Mar 18 2023 12:44PM [id number] [id number] - XR LUMBAR 2V FLEX/EXT / PROCEDURE REASON: Lumbar radiculopathy * * * * Physician Interpretation * * * * EXAM: LUMBAR SPINE, 2 VIEWS CLINICAL: 37-year-old male with lumbar radiculopathy status post fusion TECHNIQUE: Lateral flexion-extension COMPARISON: 03/13/2023 RESULTS: Counting reference: Anatomic Variant: None. L4-5 is considered the level of the iliac crest and assume there are 5 lumbar-type vertebrae. Interbody fusion and posterior pedicle screw and william fixation and L4/L5 with L4 vertebral body fixing a grade 1 anterolisthesis listhesis. Narrowing of L1/L2 disc space. No instability with flexion-extension. IMPRESSION: NO CHANGE COMPARED TO THE PREVIOUS EXAM. Advertising Agency Manager: JENIFFER Transcribe Date/Time: Mar 21 2023 6:19P Dictated by : VICKEY HARVEY MD This examination was interpreted and the report reviewed and electronically signed by: VICKEY HARVEY MD on Mar 21 2023 6:21PM EST [id number] Normal [facility] XR LUMBAR GENERAL 3V AP/LAT/ L5-S1on 03-13-2023 [facility] XR Lumbar spine 3 Viewson IMPRESSION: No acute bony finding. Advertising Agency Manager: JENIFFER Transcribe Date/Time: Mar 13 2023 12:39P Dictated by : MICHELLE REEVES MD This examination was interpreted and the report reviewed and electronically signed by: MICHELLE REEVES MD on Mar 13 2023 12:40PM [facility] DIVISION OF RADIOLOGY * * *Final Report* * * DATE OF EXAM: Mar 13 2023 12:30PM WOX 5228 - XR LUMBAR 3V AP/LAT/L5-S1 / PROCEDURE REASON: Acute left-sided low back pain with left-sided sciatica * * * * Physician Interpretation * * * * Lumbar spine HISTORY: 37 years old Clinical information: Acute left-sided low back pain with left-sided sciatica has had pain for a few weeks and then fell last night, for the past week has pain down the left leg with numbness in left foot TECHNIQUE: Images: XR LUMBAR 3V AP/LAT/L5-S1 Comparison: 12/31/2019. RESULT: Findings: Pedicle screws at the L4 and L5 levels with longitudinal stabilization rods. An opaque spacer at L4-5 disc space. Stable alignment. The other disc spaces are maintained. Vertebral bodies intact. DIVISION [facility] RADIOLOGY [facility]13/[facility]23 * * *Final Report* * * DATE OF EXAM: Mar 13 2023 12:30PM WOX 5228 - XR LUMBAR 3V AP/LAT/L5-S1 / PROCEDURE REASON: Acute left-sided low back pain with left-sided sciatica * * * * Physician Interpretation * * * * Lumbar spine HISTORY: 37 years old Clinical information: Acute left-sided low back pain with left-sided sciatica has had pain for a few weeks and then fell last night, for the past week has pain down the left leg with numbness in left foot TECHNIQUE: Images: XR LUMBAR 3V AP/LAT/L5-S1 Comparison: 12/31/2019. RESULT: Findings: Pedicle screws at the L4 and L5 levels with longitudinal stabilization rods. An opaque spacer at L4-5 disc space. Stable alignment. The other disc spaces are maintained. Vertebral bodies intact. IMPRESSION IMPRESSION: No acute bony finding. Advertising Agency Manager: JENIFFER Transcribe Date/Time: Mar 13 2023 12:39P Dictated by : MICHELLE REEVES MD This examination was interpreted and the report reviewed and electronically signed by: MICHELLE REEVES MD on Mar 13 2023 12:40PM [facility] Radiology Study observation (narrative) [facility] XR Lumbar spine 3 ViewsOrder ed By: Ccf Provider on 03-13-2023 [facility] XR Chest PA and Lateralon IMPRESSION: No acute radiographic abnormality. Advertising Agency Manager: JENIFFER Transcribe Date/Time: Jan 29 2023 11:03A Dictated by : MISTY BRAMBILA MD This examination was interpreted and the report reviewed and electronically signed by: MISTY BRAMBILA MD on Jan 29 2023 11:08AM [facility] DIVISION OF RADIOLOGY * * *Final Report* * * DATE OF EXAM: Jan 29 2023 11:00AM WOX 5291 - XR CHEST 2V FRONTAL/LAT / PROCEDURE REASON: URI, acute * * * * Physician Interpretation * * * * EXAMINATION: CHEST RADIOGRAPH (2 VIEW FRONTAL & LATERAL) CLINICAL HISTORY: URI, acute MQ: XC2_6 EXAM DATE/TIME: 01/29/2023 11:00 AM COMPARISON: Chest x-ray on 04/02/2022 RESULT: Lines, tubes, and devices: None. Lungs and pleura: No consolidation. No lung mass. No pleural effusion. No pneumothorax. Cardiomediastinal silhouette: Normal cardiomediastinal silhouette. Bones and soft tissues: There is interposition of the bowel loops underneath the right hemidiaphragm. [facility] * * *Final Report* * * DATE OF EXAM: Jan 29 2023 11:00AM WOX 5291 - XR CHEST 2V FRONTAL/LAT / PROCEDURE REASON: URI, acute * * * * Physician Interpretation * * * * EXAMINATION: CHEST RADIOGRAPH (2 VIEW FRONTAL & LATERAL) CLINICAL HISTORY: URI, acute MQ: XC2_6 EXAM DATE/TIME: 01/29/2023 11:00 AM COMPARISON: Chest x-ray on 04/02/2022 RESULT: Lines, tubes, and devices: None. Lungs and pleura: No consolidation. No lung mass. No pleural effusion. No pneumothorax. Cardiomediastinal silhouette: Normal cardiomediastinal silhouette. Bones and soft tissues: There is interposition of the bowel loops underneath the right hemidiaphragm. IMPRESSION IMPRESSION: No acute radiographic abnormality. Advertising Agency Manager: PSCB Transcribe Date/Time: Jan 29 2023 11:03A Dictated by : MISTY BRAMBILA MD This examination was interpreted and the report reviewed and electronically signed by: MISTY BRAMBILA MD on Jan 29 2023 11:08AM EST [facility] Radiology Study observation (narrative) [facility] XR Chest PA and LateralOrder ed By: Ccf Provider on 01-29-2023 [facility] ANES POSTPROC EVALon 023 ANES POSTPROC EVAL HNO ID: [id number] Author: Finn Jeff MD, PhD Service: Anesthesiology Author Type: Anesthesiologist Type: Anesthesia Postprocedure Evaluation Filed: 01/21/2023 4:08 PM Note Text: POST ANESTHESIA EVALUATION NOTE : 1985 Procedure Summary Date: 01/21/23 Room / Location: [facility] Anesthesia Start: 1526 Anesthesia Stop: 1534 Procedure: SIGMOIDOSCOPY Diagnosis: Colon stricture (HCC) Scheduled Providers: Daren Dimas MD Responsible Provider: Finn Jeff MD, PhD Anesthesia Type: MAC ASA Status: 2 Anesthesia Type: MAC Last Vitals Vitals Value Taken Time BP 125/88 01/21/23 1552 Temp 36.5 ?C (97.7 ?F) 01/21/23 1537 Pulse 76 01/21/23 1552 Resp 16 01/21/23 1552 SpO2 99 % 01/21/23 1552 Post Anesthesia Patient Status Patient Evaluation: PACU. PACU/ICU Patient Condition: stable. Anticipated Disposition: phase 2 then home. Neurological Status: aware and responsive. Pulmonary Status: breathing comfortably on room air Airway Control: returned to baseline unsupported. Cardiovascular Status: stable. Pain Management: clinically adequate Postoperative Hydration: acceptable. Intraoperative Events: no significant anesthesia events Post Operative Nausea/Vomiting Status: no significant post operative nausea or vomiting Other Remarks: Pt was awake and alert, with fluent and appropriate speech.. Anesthesia Observations No Documentation SIGNATURE: Finn Jeff MD, PhD PATIENT NAME: Eunice Vargas DATE: January 21, 2023 TIME: 4:07 PM CSN: [id number] Normal [facility] ANES PRE-OPon 01-21-2023 ANES PRE-OP HNO ID: [id number] Author: Finn Jeff MD, PhD Service: Anesthesiology Author Type: Anesthesiologist Type: Anesthesia Preprocedure Evaluation Filed: 01/21/2023 3:27 PM Note Text: ANESTHESIOLOGY DAY OF SURGERY NOTE : 1985 Procedure Information Anesthesia Start Date/Time: 01/21/23 1526 Scheduled providers: Daren Dimas MD Procedure: SIGMOIDOSCOPY Location: [facility] Estimated body mass index is 25.82 kg/m? as calculated from the following: Height as of this encounter: 167.6 cm (5' 6). Weight as of this encounter: 72.6 kg (160 lb). Most recent hematocrit and potassium results: Hematocrit 39.2 12/03/2022 Potassium 3.4 12/03/2022 Potassium (POCT) 4.2 09/21/2021 Relevant Problems No relevant active problems I - PHYSICAL EVALUATION AIRWAY Patient intubated: No. Tracheostomy tube not present Mallampati: II. TM distance: >3 FB. Neck ROM: full ROM without neurological symptoms. Mouth opening: adequate. Short neck: no. Thick neck: no Maravilla present: yes DENTAL Dental findings: teeth intact. II - ANESTHESIA PLAN ASA Score: 2 Anesthetic Plan: MAC NPO Status: adequate Beta Juan Monitoring Plan Monitoring plan: standard ASA. Post Procedure Analgesic Plan Postoperative analgesic plan: multimodal analgesia. Informed Consent Anesthetic risks, benefits, alternatives, personnel and consent discussed: yes. Patient / Responsible Republican agrees to proceed: yes Patient / Surrogate agrees to blood products: blood products not planned Potential Anesthesia issues that may suggest increased risk of complications or contraindication to planned procedure: none. Vitals Value Taken Time BP 123/88 01/21/23 1409 Pulse 76 01/21/23 1409 Resp 16 01/21/23 1409 Temp 36.9 ?C (98.4 ?F) 01/21/23 1409 SpO2 98 % 01/21/23 1409 Outpatient Medications as of 01/21/2023 Medication Sig - ondansetron orally disintegrating (ZOFRAN ODT) 4 mg disintegrating tablet Take 1 tablet by mouth every 8 hours as needed for nausea/vomiting. (Patient not taking: No sig reported) - loperamide (IMODIUM) 2 mg cap(s) Take 1 capsule by mouth three times daily. (Patient not taking: No sig reported) - Miscellaneous Medical Supply Ileostomy supplies: - 1 Box Coloplast One piece Assura drainable pouch OR - 2 boxes Coloplast Tacho red flat wafer # [id number] - 1 box Coloplast Tacho red drainable pouches # 49600 - 1 box Ryan small barrier rings # 7805 - 1 tube stomahesive paste # 2650 - 1 box Coloplast Elastic barrier strips # [id number] - 1 bottle stomahesive powder # 02820 - 1 box adhesive remover wipes - 1 box skin barrier prep wipes # (Patient not taking: Reported on 12/11/2022) - MULTIVITAMIN ORAL Take 1 tablet by mouth once daily. Facility-Administered Medications as of 01/21/2023 Medication Dose Route Frequency - lactated ringers iv infusion 30 mL/hr INTRAVENOUS CONTINUOUS I have interviewed and examined the patient. I have reviewed the medical record and/or the pre-anesthesia evaluation, pertinent labs, and test results. This contains updated information obtained within 48 hours of Surgery/Procedure. SIGNATURE: Finn Jeff MD, PhD PATIENT NAME: Eunice Vargas DATE: January 21, 2023 TIME: 3:26 PM CSN: [id number] Normal [facility] HISTORY PHYSICALon HISTORY PHYSICAL HNO ID: [id number] Author: Wanda Benítez APRN.INTERNATIONAL RELATIONS PROFESSOR Service: ? Author Type: Nurse Practitioner Type: HANDP Filed: 01/21/2023 1:55 PM Note Text: HISTORY AND PHYSICAL EXAMINATION SERVICE DATE: 01/21/2023 SERVICE TIME: 1:40 PM PRIMARY CARE PHYSICIAN: No primary care provider on file. REASON FOR VISIT: Eunice Vargas is a 37 year old male who is scheduled for Sigmoidoscopy at the request of Dr. Daren Dimas for routine HANDP. The reason for this visit is to perform a comprehensive review of the patient's past medical history, assess their current health status and obtain any additional testing required based on anesthesia guidelines. We will also identify any potential anesthesia problems or contraindications to the planned procedure. The patient has the following: ACTIVE PROBLEM LIST Attention Deficit Disorder Without Mention of Hyperactivity Plantar Fascial Fibromatosis Obesity, Class I, Bmi 30-34.9 Spondylolisthesis of Lumbar Region Acute Midline Low Back Pain With Left-Sided Sciatica Ileus Following Gastrointestinal Surgery (Hcc) Generalized Abdominal Pain Malnutrition of Moderate Degree (Hcc) Colonic Inertia Enteritis Lactic Acidosis Pre-Op Exam Ileostomy Present (Hcc) Subjective CHIEF COMPLAINT: Colon stricture (HCC) [K56.699] HPI: Patient present to [facility] for the above procedure. Patient is here for Sigmoidoscopy. Patient c/o hx of colonic inertia and ileostomy placement 11/2021 and reversal on 11/26/[address] Le. He reports some watery stools since then, especially in the AM, more formed stool later during the day. This is to check for possible stricturing. Patient denies any N/V. Denies any abdominal pain. Denies any melena or hematochezia. Patient has no known family history of Colon cancer or other Gastric cancer. Patient agreed to planned procedure. METS: Run a short distance (8.00 METs) Patient denies any CP/SOB with above [...] Never Prior to Admission medications as of 01/21/23 1350 Medication Sig Last Dose Taking ondansetron orally disintegrating (ZOFRAN ODT) 4 mg disintegrating tablet Take 1 tablet by mouth every 8 hours as needed for nausea/vomiting. Patient not taking: No sig reported Unknown loperamide (IMODIUM) 2 mg cap(s) Take 1 capsule by mouth three times daily. Patient not taking: No sig reported Unknown Miscellaneous Medical Supply Ileostomy supplies: - 1 Box Coloplast One piece Assura drainable pouch OR - 2 boxes Coloplast Tacho red flat wafer # 05938 - 1 box Coloplast Tacho red drainable pouches # 19643 - 1 box Ryan small barrier rings # 7805 - 1 tube stomahesive paste # 2650 - 1 box Coloplast Elastic barrier strips # 985857 - 1 bottle stomahesive powder # 23173 - 1 box adhesive remover wipes - 1 box skin barrier prep wipes # Patient not taking: Reported on 12/11/2022 MULTIVITAMIN ORAL Take 1 tablet by mouth once daily. Unknown No medication comments found. ALLERGIES Allergen Reactions Adhesive Other: See Comments Large blisters REVIEW OF SYSTEMS: General: Denies fever, chills, and unexpected weight change. Neuro: Denies dizziness and headaches. Respiratory: No history of current cough or dyspnea, or pneumonia in the past 6 weeks. No history of respiratory/pulmonary symptoms or problems. No history of current cough or dyspnea, or pneumonia in the past 6 weeks. Cardiovascular: No history of HTN requiring medication, no history of angina, CHF, OK, cardiac surgery or stents. Denies rest pain, gangrene or revascularization/amputatio n for PVD. No hist (more content not included)... Normal [facility] OPERATIVE NOon 01-21-2023 OPERATIVE NO HNO ID: [id number] Author: Daren Dimas MD Service: Gastroenterology Author Type: Physician Type: Operative Report Filed: 01/21/2023 3:38 PM Note Text: OPERATIVE/PROCEDURE REPORT LOG ID: [id number] Surgery/Procedure Date: Incision/Procedure Start Time: 3:30 PM Incision Close/Procedure End Time: 3:35 PM Surgeon(s)/Proceduralist(s) and Continuous Miner Operator Helper(s): * No surgeons found in log * Daren Dimas MD No Additional Staff Procedure(s): Flexible sigmoidoscopy Anesthesia: * No anesthesia type entered * Monitored anesthesia Care Brief History: 37/M with h/o- colonic inertia S/P sub-total colectomy with ileo-rectal anastomosis complicated by stenosis of the surgical anastomosis S/P dilation and steroid injection 3 months ago, with occasional lower abdominal pain Procedure Details: The patient was placed in the left lateral decubitus position. A digital rectal exam was performed and this was normal. The Olympus colonoscope was introduced into the rectum and advanced to ileo-rectal anastomosis and ijeoma-terminal ileum. The procedure was not technically difficult. The bowel preparation was good. The scope was then slowly withdrawn and the mucosal folds examined in detail. 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 Rey Navarro/primary surgeon/proceduralist performed the procedure with assistance. Daren Dimas MD SIGNATURE: Daren Dimas MD PATIENT NAME: Eunice Vargas DATE: January 21, 2023 TIME: 3:33 PM PAGER/CONTACT #: [phone] [facility] Office Visit (KARIE 7) EUNICE VARGAS ([id number]) 1985 M Date Time Provider Department 12/11/22 9:45 AM COLLIN LE During your visit today, we recorded the following information about you: Pulse Blood pressure Weight Height 69/minute 123/81 71.7 kg 1.676 m Collin Le MD 12/11/2022 10:10 AM Signed Collin Le M.D. Colon AND Rectal Surgery [address] [facility], [address] [place] [address] SUBJECTIVE Eunice Vargas is a 36 year [...] boxes Coloplast Tacho red flat wafer # 19776 - 1 box Coloplast Scotia red drainable pouches # 69046 - 1 box Swisher small barrier rings # 7805 - 1 tube stomahesive paste # 2650 - 1 box Coloplast Elastic barrier strips # 338888 - 1 bottle stomahesive powder # 70921 - 1 box adhesive remover wipes - [...] not ill-appearing. Abdominal: General: There is no distensio (more content not included)... Normal [facility] XR Abdomen GE 3 Views AP and Oblique and Coneon 12-09-2022 IMPRESSION: Persistent significant gaseous distention of the bowel. Findings not significantly changed. Although findings may be related to ileus given there appears to be distention of both small and large bowel, obstruction is not excluded radiographically. Clinical correlation requested and either continued radiographic follow-up evaluation may be made or if clinically indicated consider further evaluation with oral and IV contrast enhanced CT. Advertising Agency Manager: [facility] Transcribe Date/Time: Dec 09 2022 11:57A Dictated by : RODERICK HDZ MD This examination was interpreted and the report reviewed and electronically signed by: RODERICK HDZ MD on Dec 09 2022 12:00PM [facility] DIVISION OF RADIOLOGY * * *Final Report* * * DATE OF EXAM: Dec 06 2022 8:13AM WOX [id number] - XR ABDOMEN 3V KUB W/OBLIQUES / PROCEDURE REASON: Status post reversal of ileostomy * * * * Physician Interpretation * * * * TITLE: XR ABDOMEN 3V KUB W/OBLIQUES CLINICAL INDICATION: Status post ileostomy reversal TECHNIQUE: Supine frontal and bilateral oblique radiographs of the abdomen COMPARISON: Radiograph dated November 30, 2022 FINDINGS: There is persistent significant gaseous distention of what appears to be both small and large bowel with the degree of distention not substantially changed. Paucity of bowel gas distally. Surgical staple line in the pelvis. Status post fusion of the lower lumbosacral spine. DIVISION OF RADIOLOGY Provider, [facility] - 12/09/2022 * * *Final Report* * * DATE OF EXAM: Dec 06 2022 8:13AM WOX 5358 - XR ABDOMEN 3V KUB W/OBLIQUES / PROCEDURE REASON: Status post reversal of ileostomy * * * * Physician Interpretation * * * * TITLE: XR ABDOMEN 3V KUB W/OBLIQUES CLINICAL INDICATION: Status post ileostomy reversal TECHNIQUE: Supine frontal and bilateral oblique radiographs of the abdomen COMPARISON: Radiograph dated November 30, 2022 FINDINGS: There is persistent significant gaseous distention of what appears to be both small and large bowel with the degree of distention not substantially changed. Paucity of bowel gas distally. Surgical staple line in the pelvis. Status post fusion of the lower lumbosacral spine. IMPRESSION IMPRESSION: Persistent significant gaseous distention of the bowel. Findings not significantly changed. Although findings may be related to ileus given there appears to be distention of both small and large bowel, obstruction is not excluded radiographically. Clinical correlation requested and either continued radiographic follow-up evaluation may be made or if clinically indicated consider further evaluation with oral and IV contrast enhanced CT. Advertising Agency Manager: [facility] Transcribe Date/Time: Dec 09 2022 11:57A Dictated by : RODERICK HDZ MD This examination was interpreted and the report reviewed and electronically signed by: RODERICK HDZ MD on Dec 09 2022 12:00PM EST [facility] XR Abdomen GE 3 Views AP and Oblique and ConeOrdered By: Ccf Provider on 12-09-2022 [facility] XR Abdomen GE 3 Views AP and Oblique and Coneon 12-06-2022 Radiology Study observation (narrative) [facility] Basic metabolic 2000 panelon 12-03-2022 Anion gap [Moles/Vol] 15 mmol/L Normal 9-18 [facility] Comment on above: Order Comment: Speci men Type: BLOOD SPECIMEN Ordering Facility: [facility] Address: [address] [address] Performed By: #### 2 4321-2 #### [facility] CLIA [id number] 1 [place] [address] [place] Calcium [Mass/Vol] 9.1 mg/dL Normal 8.5-10.2 [facility] Comment on above: Order Comment: Speci men Type: BLOOD SPECIMEN Ordering Facility: [facility] Address: [address] [address] Performed By: #### 2 4321-2 #### [facility] CLIA [id number] 1 [place] [address] [place] Chloride [Moles/Vol] 101 mmol/L Normal 97-105 [facility] Comment on above: Order Comment: Speci men Type: BLOOD SPECIMEN Ordering Facility: [facility] Address: [address] [address] Performed By: #### 2 4321-2 #### [facility] CLIA [id number] [address] [place] CO2 [Moles/Vol] 22 mmol/L Normal 22-30 [facility] Comment on above: Order Comment: Speci men Type: BLOOD SPECIMEN Ordering Facility: [facility] Address: [address] [place] [address] Performed By: #### 2 4321-2 #### [facility] CLIA [id number] [address] Creatinine [Mass/Vol] 0.75 mg/dL Normal 0.73-1.22 [facility] Comment on above: Order Comment: Speci men Type: BLOOD SPECIMEN Ordering Facility: [facility] Address: [address] [place] [address] Performed By: #### 2 4321-2 #### [facility] CLIA [id number] [address] ESTIMATED GLOMERULAR FILTRATION RATE 120 mL/min/1.73m??? Normal >=60 [facility] Comment on above: Order Comment: Speci men Type: BLOOD SPECIMEN Ordering Facility: [facility] Address: [address] [place] [address] Result Comment: Jody mated Glomerular Filtration Rate [...] GFR. Performed By: #### 2 4321-2 #### [facility] CLIA [id number] [address] [place] Glucose [Mass/Vol] 89 mg/dL Normal 74-99 [facility] Comment on above: Order Comment: Speci men Type: BLOOD SPECIMEN Ordering Facility: [facility] Address: [address] [place] [address] Result Comment: The [place] Diabetes Association (ADA) provides guidance for cutoff [...] Standards of Medical Care in Diabetes 2016, [place] [employer]. Diabetes Care. 2016.39(Suppl 1). Performed By: #### 2 4321-2 #### [facility] CLIA [id number] [address] OF [facility] Potassium [Moles/Vol] 3.4 mmol/L Low 3.7-5.1 [facility] Comment on above: Order Comment: Jeff mata Type: BLOOD SPECIMEN Ordering Facility: [facility] Address: [address] [address] Performed By: #### 2 4321-2 #### [facility] CLIA [id number] [address] Sodium [Moles/Vol] 138 mmol/L Normal 136-144 [facility] Comment on above: Order Comment: Jeff mata Type: BLOOD SPECIMEN Ordering Facility: [facility] Address: [address] [address] Performed By: #### 2 4321-2 #### [facility] CLIA [id number] [address] Urea nitrogen [Mass/Vol] 9 mg/dL Normal 9-24 [facility] Comment on above: Order Comment: Jeff mata Type: BLOOD SPECIMEN Ordering Facility: [facility] Address: [address] [address] Performed By: #### 2 4321-2 #### [facility] CLIA [id number] [address] CBC panel Auto (Bld)on 12-03 Erythrocyte distribution width (RBC) [Ratio] 12.6 % Normal 11.5-15.0 [facility] Comment on above: Order Comment: Speci men Type: BLOOD SPECIMEN Ordering Facility: [facility] Address: [address] [place] [address] Performed By: #### 5 8410-2 #### [facility] CLIA [id number] [address] Hematocrit (Bld) [Volume fraction] 39.2 % Normal 39.0-51.0 [facility] Comment on above: Order Comment: Speci men Type: BLOOD SPECIMEN Ordering Facility: [facility] Address: [address] [place] [address] Performed By: #### 5 8410-2 #### [facility] CLIA [id number] [address] OF [facility] Hemoglobin (Bld) [Mass/Vol] 13.5 g/dL Normal 13.0-17.0 [facility] Comment on above: Order Comment: Speci men Type: BLOOD SPECIMEN Ordering Facility: [facility] Address: [address] [place] [address] Performed By: #### 5 8410-2 #### [facility] CLIA [id number] [address] MCH (RBC) [Entitic mass] 29.5 pg Normal 26.0-34.0 [facility] Comment on above: Order Comment: Speci men Type: BLOOD SPECIMEN Ordering Facility: [facility] Address: [address] [address] Performed By: #### 5 8410-2 #### [facility] CLIA [id number] [address] MCHC (RBC) [Mass/Vol] 34.4 g/dL Normal 30.5-36.0 [facility] Comment on above: Order Comment: Speci men Type: BLOOD SPECIMEN Ordering Facility: [facility] Address: [address] [place] [address] Performed By: #### 5 8410-2 #### [facility] CLIA [id number] [address] MCV (RBC) [Entitic vol] 85.6 fL Normal 80.0-100.0 [facility] Comment on above: Order Comment: Speci men Type: BLOOD SPECIMEN Ordering Facility: [facility] Address: [address] [place] [address] Performed By: #### 5 8410-2 #### [facility] CLIA [id number] [address] Nucleated RBC (Bld) [#/Vol] 10*3/uL Normal <0.01 [facility] Comment on above: Order Comment: Speci men Type: BLOOD SPECIMEN Ordering Facility: [facility] Address: [address] [place] [address] Performed By: #### 5 8410-2 #### [facility] CLIA [id number] [address] Platelet mean volume (Bld) [Entitic vol] 9.1 fL Normal 9.0-12.7 [facility] Comment on above: Order Comment: Speci men Type: BLOOD SPECIMEN Ordering Facility: [facility] Address: [address] [place] [address] Performed By: #### 5 8410-2 #### [facility] CLIA [id number] [address] Platelets (Bld) [#/Vol] 317 10*3/uL Normal 150-400 [facility] Comment on above: Order Comment: Speci men Type: BLOOD SPECIMEN Ordering Facility: [facility] Address: [address] [place] [address] Performed By: #### 5 8410-2 #### [facility] CLIA [id number] [address] [place] RBC (Bld) [#/Vol] 4.58 10*6/uL Normal 4.20-6.00 [facility] Comment on above: Order Comment: Speci men Type: BLOOD SPECIMEN Ordering Facility: [facility] Address: [address] [address] Performed By: #### 5 8410-2 #### [facility] CLIA [id number] [address] WBC (Bld) [#/Vol] 7.17 10*3/uL Normal 3.70-11.00 [facility] Comment on above: Order Comment: Jeff mata Type: BLOOD SPECIMEN Ordering Facility: [facility] Address: [place] [address] Performed By: #### 5 8410-2 #### [facility] CLIA [id number] [address] CNDSon 12-03-2022 [facility] HNO ID: [id number] Author: Brenda Manzo DO Service: General Surgery Author Type: Resident Type: Discharge Summary Filed: 12/03/2022 10:40 AM Note Text: Attestation signed by Collin Le MD at 12/03/2022 10:48 AM I reviewed resident's discharge summary note. I agree with his assessment, plan and recommendations unless otherwise noted. Collin Le MD 10:48 AM 12/03/22 DISCHARGE SUMMARY PATIENT NAME: Eunice Vargas Code Status: Not on file Highest Readmission Risk Score: 10 The 30 day readmissions risk score is derived from an internally validated risk model which evaluates patient level characteristics, utilization history, medication orders and lab results up until the day of discharge. Patients with a score of 40 or above are considered highest risk for readmission. Specific patient level drivers will be listed at the bottom of the summary. Admission Information Admission Information ADMIT DATE: 11/26/2022 DISCHARGE DATE: 12/03/2022 MY DOCTORS AND MEDICAL TEAM: My Main Hospital Doctor: Collin Le MD Primary Care Provider: No primary care provider on file. My Medical Team Members: Treatment Team: Attending Provider: Collin Le MD MY CONDITION AT DISCHARGE: Stable REASON I WAS IN THE HOSPITAL: elective ileostomy reversal SUMMARY OF WHAT HAPPENED WHILE I WAS IN THE HOSPITAL: You were admitted to the hospital after an elective ileostomy reversal on 11/26/2022. Post-operatively, you had some nausea and vomiting and a KUB was performed and showed an ileus. Over time, you were having bowel function. Your diet was advanced from clears to full liquids. You will remain on a full liquid diet for the time being. Please obtain a KUB this Wednesday 12/06. You will follow up with Dr. Le in his office for further care. OTHER PROBLEMS/DIAGNOSIS: Principal Problem: Ileostomy present (HCC) Resolved Problems: * No resolved hospital problems. * OPERATIONS PERFORMED WHILE IN THE HOSPITAL: see above IMPORTANT TEST/PROCEDURES: No procedures performed TEST RESULTS NOT AVAILABLE AT THIS TIME: No pending results Discharge Disposition Discharge Disposition: Home With Self Care Activity When You Leave the Hospital May bathe and shower No lifting restrictions No walking restrictions Resume pre-hospital activity Diet Instructions Drink 6 to 8 glasses of fluids per day Other: Full liquid diet For Pain When You Leave the Hospital Use acetaminophen (Tylenol) as recommended on the bottle Use the dispensed medication (see prescription) You should use an dzmt-hiw-jsyvrxb stool softener (Docusate sodium) and/or a fiber supplement (Metamucil, Fiber Con) every day while taking prescribed pain medication Wound/Surgical Site Care Keep your dressing clean and dry Some bleeding from the wound/surgical site can be expected. If excessive, see a doctor at once Wash your hands frequently, especially before touching your incision, after using restroom and before eating Call Your Doctor If You have a severe headache You have difficulty urinating or pain when urinating You have lightheadedness, fainting, or confusion You have pain and swelling in your legs, especially if it is only on one side and not the other You have persistent nausea/vomiting over 24 hours You have swollen glands or cold and clammy skin Your temperature is greater than 101F Follow Up Appointments Follow-Up Appointment When: In 1 week Patient/Parents to call for appointment?: Yes Collin Le MD [phone] [address] [place] [address] PCP Requested Referral Additional Provider to Provider Information: You were admitted to the hospital after an elective ileostomy reversal on 11/26/2022. Post-operatively, you had some nausea and vomiting and a KUB was performed and showed an ileus. Over time, you were having bowel function. Your diet was advanced from clears to full liquids. You will remain on a full liquid diet for the time being. Please obtain a KUB this Wednesday 12/06. You will follow up with Dr. Le in his office for further care. Active Hospital Problems as of 12/03/2022 Noted - Resolved POA Hospital * (Principal) Ileostomy present (HCC) 11/26/2022 - Present Yes Resolved Hospital Problems as of 12/03/2022 None Transitions of Care Critical Issues: IMAGING FOLLOW-UP: KUB Wednesday 12/06 LABS AND PROCEDURES PENDING AT DISCHARGE: Tests to be Completed After Your Hospitalization XR ABDOMEN 3V KUB W/OBLIQUES Complete by: Dec 06, 2022 FOLLOW-UP APPOINTMENTS ALREADY SCHEDULED WITH A [facility] PROVIDER: No future appointments. ALLERGIES Allergen Reactions Adhesive Other: See Comments Large blisters DISCHARGE M (more content not included)... Normal [facility] Basic metabolic 2000 panelon 12-02-2022 Anion gap [Moles/Vol] 13 mmol/L Normal 9-18 [facility] Comment on above: Order Comment: Speci men Type: BLOOD SPECIMEN Ordering Facility: [facility] Address: [facility] [place] [address] Performed By: #### 2 4321-2 #### [facility] CLIA [id number] [address] [place] [address] [place] Calcium [Mass/Vol] 8.7 mg/dL Normal 8.5-10.2 [facility] Comment on above: Order Comment: Speci men Type: BLOOD SPECIMEN Ordering Facility: [facility] Address: [address] [place] [address] Performed By: #### 2 4321-2 #### [facility] CLIA [id number] [address] [place] Chloride [Moles/Vol] 100 mmol/L Normal 97-105 [facility] Comment on above: Order Comment: Speci men Type: BLOOD SPECIMEN Ordering Facility: [facility] Address: [address] [address] Performed By: #### 2 4321-2 #### [facility] CLIA [id number] [address] [place] CO2 [Moles/Vol] 22 mmol/L Normal 22-30 [facility] Comment on above: Order Comment: Speci men Type: BLOOD SPECIMEN Ordering Facility: [facility] Address: [address] [place] [address] Performed By: #### 2 4321-2 #### [facility] CLIA [id number] [address] [place] Creatinine [Mass/Vol] 0.86 mg/dL Normal 0.73-1.22 [facility] Comment on above: Order Comment: Speci men Type: BLOOD SPECIMEN Ordering Facility: [facility] Address: [address] [place] [address] Performed By: #### 2 4321-2 #### [facility] CLIA [id number] [address] ESTIMATED GLOMERULAR FILTRATION RATE 115 mL/min/1.73m??? Normal >=60 [facility] Comment on above: Order Comment: Speci men Type: BLOOD SPECIMEN Ordering Facility: [facility] Address: [address] [place] [address] Result Comment: Jody mated Glomerular Filtration Rate [...] GFR. Performed By: #### 2 4321-2 #### [facility] CLIA [id number] [address] [place] [address] [place] Glucose [Mass/Vol] 76 mg/dL Normal 74-99 [facility] Comment on above: Order Comment: Jeff mata Type: BLOOD SPECIMEN Ordering Facility: [facility] Address: [address] [address] Result Comment: The [place] Diabetes Association (ADA) provides guidance for cutoff [...] Standards of Medical Care in Diabetes 2016, [place] [employer]. Diabetes Care. 2016.39(Suppl 1). Performed By: #### 2 4321-2 #### [facility] CLIA [id number] [address] [place] [address] [place] Potassium [Moles/Vol] 4.0 mmol/L Normal 3.7-5.1 [facility] Comment on above: Order Comment: Jeff mata Type: BLOOD SPECIMEN Ordering Facility: [facility] Address: [address] [address] Performed By: #### 2 4321-2 #### [facility] CLIA [id number] [address] [place] [address] [place] Sodium [Moles/Vol] 135 mmol/L Low 136-144 [facility] Comment on above: Order Comment: Jeff mata Type: BLOOD SPECIMEN Ordering Facility: [facility] Address: [address] [address] Performed By: #### 2 4321-2 #### [facility] CLIA [id number] [address] [place] [facility] Urea nitrogen [Mass/Vol] 17 mg/dL Normal 9-24 [facility] [facility] Comment on above: Order Comment: Speci men Type: BLOOD SPECIMEN Ordering Facility: [facility] Address: [address] [address] Performed By: #### 2 4321-2 #### [facility] CLIA [id number] [address] CBC panel Auto (Bld)on 12-02 Erythrocyte distribution width (RBC) [Ratio] 12.5 % Normal 11.5-15.0 [facility] Comment on above: Order Comment: Speci men Type: BLOOD SPECIMEN Ordering Facility: [facility] Address: [address] [place] [address] Performed By: #### 5 8410-2 #### [facility] CLIA [id number] [address] Hematocrit (Bld) [Volume fraction] 39.0 % Normal 39.0-51.0 [facility] Comment on above: Order Comment: Speci men Type: BLOOD SPECIMEN Ordering Facility: [facility] Address: [address] [place] [address] Performed By: #### 5 8410-2 #### [facility] CLIA [id number] [address] [facility] Hemoglobin (Bld) [Mass/Vol] 13.2 g/dL Normal 13.0-17.0 [facility] Comment on above: Order Comment: Speci men Type: BLOOD SPECIMEN Ordering Facility: [facility] Address: [address] [place] [address] Performed By: #### 5 8410-2 #### [facility] CLIA [id number] [address] MCH (RBC) [Entitic mass] 29.7 pg Normal 26.0-34.0 [facility] Comment on above: Order Comment: Speci men Type: BLOOD SPECIMEN Ordering Facility: [facility] Address: [address] [address] Performed By: #### 5 8410-2 #### [facility] CLIA [id number] [address] MCHC (RBC) [Mass/Vol] 33.8 g/dL Normal 30.5-36.0 [facility] Comment on above: Order Comment: Speci men Type: BLOOD SPECIMEN Ordering Facility: [facility] Address: [address] [address] Performed By: #### 5 8410-2 #### [facility] CLIA [id number] [address] MCV (RBC) [Entitic vol] 87.8 fL Normal 80.0-100.0 [facility] Comment on above: Order Comment: Speci men Type: BLOOD SPECIMEN Ordering Facility: [facility] Address: [address] [address] Performed By: #### 5 8410-2 #### [facility] CLIA [id number] [address] Nucleated RBC (Bld) [#/Vol] 10*3/uL Normal <0.01 [facility] Comment on above: Order Comment: Speci men Type: BLOOD SPECIMEN Ordering Facility: [facility] Address: [address] [address] Performed By: #### 5 8410-2 #### [facility] CLIA [id number] [address] Platelet mean volume (Bld) [Entitic vol] 9.6 fL Normal 9.0-12.7 [facility] Comment on above: Order Comment: Speci men Type: BLOOD SPECIMEN Ordering Facility: [facility] Address: [address] [place] [address] Performed By: #### 5 8410-2 #### [facility] CLIA [id number] [address] [facility] Platelets (Bld) [#/Vol] 299 10*3/uL Normal 150-400 [facility] Comment on above: Order Comment: Speci men Type: BLOOD SPECIMEN Ordering Facility: [facility] Address: [address] [address] Performed By: #### 5 8410-2 #### [facility] CLIA [id number] [address] [place] RBC (Bld) [#/Vol] 4.44 10*6/uL Normal 4.20-6.00 [facility] Comment on above: Order Comment: Speci men Type: BLOOD SPECIMEN Ordering Facility: [facility] Address: [address] [place] [address] Performed By: #### 5 8410-2 #### [facility] CLIA [id number] [address] [place] WBC (Bld) [#/Vol] 5.92 10*3/uL Normal 3.70-11.00 [facility] Comment on above: Order Comment: Speci men Type: BLOOD SPECIMEN Ordering Facility: [facility] Address: [address] [place] [address] Performed By: #### 5 8410-2 #### [facility] CLIA [id number] [address] [facility] Basic metabolic 2000 panelon 12-01-2022 Anion gap [Moles/Vol] 14 mmol/L Normal 9-18 [facility] Comment on above: Order Comment: Speci men Type: BLOOD SPECIMEN Ordering Facility: [facility] Address: [address] [place] [address] Performed By: #### 5 8410-2 #### [facility] CLIA [id number] [address] Calcium [Mass/Vol] 9.0 mg/dL Normal 8.5-10.2 [facility] Comment on above: Order Comment: Speci men Type: BLOOD SPECIMEN Ordering Facility: [facility] Address: [address] [address] Performed By: #### 5 8410-2 #### [facility] CLIA [id number] [address] [facility] Chloride [Moles/Vol] 96 mmol/L Low 97-105 [facility] Comment on above: Order Comment: Speci men Type: BLOOD SPECIMEN Ordering Facility: [facility] Address: [address] [place] [address] Performed By: #### 5 8410-2 #### [facility] CLIA [id number] [address] [facility] CO2 [Moles/Vol] 22 mmol/L Normal 22-30 [facility] Comment on above: Order Comment: Speci men Type: BLOOD SPECIMEN Ordering Facility: [facility] Address: [address] [place] [address] Performed By: #### 5 8410-2 #### [facility] CLIA [id number] [address] Creatinine [Mass/Vol] 0.95 mg/dL Normal 0.73-1.22 [facility] Comment on above: Order Comment: Speci men Type: BLOOD SPECIMEN Ordering Facility: [facility] Address: [address] [place] [address] Performed By: #### 5 8410-2 #### [facility] CLIA [id number] [address] ESTIMATED GLOMERULAR FILTRATION RATE 106 mL/min/1.73m??? Normal >=60 [facility] Comment on above: Order Comment: Speci men Type: BLOOD SPECIMEN Ordering Facility: [facility] Address: [address] [place] [address] Result Comment: Jody mated Glomerular Filtration Rate [...] GFR. Performed By: #### 5 8410-2 #### [facility] CLIA [id number] 1 [place] [address] [place] Glucose [Mass/Vol] 96 mg/dL Normal 74-99 [facility] Comment on above: Order Comment: Jeff mata Type: BLOOD SPECIMEN Ordering Facility: [facility] Address: [address] [place] [address] Result Comment: The [place] [employer] (ADA) provides guidance for cutoff [...] Standards of Medical Care in Diabetes 2016, [place] [employer]. Diabetes Care. 2016.39(Suppl 1). Performed By: #### 5 8410-2 #### [facility] CLIA [id number] 1 [place] [address] [place] Potassium [Moles/Vol] 4.3 mmol/L Normal 3.7-5.1 [facility] Comment on above: Order Comment: Jeff mata Type: BLOOD SPECIMEN Ordering Facility: [facility] Address: [address] [address] Performed By: #### 5 8410-2 #### [facility] CLIA [id number] 1 [place] [address] [place] Sodium [Moles/Vol] 132 mmol/L Low 136-144 [facility] Comment on above: Order Comment: Jeff mata Type: BLOOD SPECIMEN Ordering Facility: [facility] Address: [address] [place] [address] Performed By: #### 5 8410-2 #### [facility] CLIA [id number] [address] STATES OF [facility] Urea nitrogen [Mass/Vol] 27 mg/dL High 9-24 [facility] Comment on above: Order Comment: Speci men Type: BLOOD SPECIMEN Ordering Facility: [facility] Address: [address] [place] [address] Performed By: #### 5 8410-2 #### [facility] CLIA [id number] [address] [facility] CBC panel Auto (Bld)on 12-01 Erythrocyte distribution width (RBC) [Ratio] 12.7 % Normal 11.5-15.0 [facility] Comment on above: Order Comment: Speci men Type: BLOOD SPECIMEN Ordering Facility: [facility] Address: [address] [place] [address] Performed By: #### 2 4321-2 #### [facility] CLIA [id number] [address] [place] [address] Hematocrit (Bld) [Volume fraction] 44.2 % Normal 39.0-51.0 [facility] Comment on above: Order Comment: Speci men Type: BLOOD SPECIMEN Ordering Facility: [facility] Address: [address] [place] [address] Performed By: #### 2 4321-2 #### [facility] CLIA [id number] [address] Hemoglobin (Bld) [Mass/Vol] 15.1 g/dL Normal 13.0-17.0 [facility] Comment on above: Order Comment: Speci men Type: BLOOD SPECIMEN Ordering Facility: [facility] Address: [address] [place] [address] Performed By: #### 2 4321-2 #### [facility] CLIA [id number] [address] MCH (RBC) [Entitic mass] 29.7 pg Normal 26.0-34.0 [facility] Comment on above: Order Comment: Speci men Type: BLOOD SPECIMEN Ordering Facility: [facility] Address: [address] [address] Performed By: #### 2 4321-2 #### [facility] CLIA [id number] [address] MCHC (RBC) [Mass/Vol] 34.2 g/dL Normal 30.5-36.0 [facility] Comment on above: Order Comment: Speci men Type: BLOOD SPECIMEN Ordering Facility: [facility] Address: [address] [address] Performed By: #### 2 1-2 #### [facility] CLIA [id number] [address] MCV (RBC) [Entitic vol] 87.0 fL Normal 80.0-100.0 [facility] Comment on above: Order Comment: Speci men Type: BLOOD SPECIMEN Ordering Facility: [facility] Address: [address] [address] Performed By: #### 2 1-2 #### [facility] CLIA [id number] [address] Nucleated RBC (Bld) [#/Vol] 10*3/uL Normal <0.01 [facility] Comment on above: Order Comment: Speci men Type: BLOOD SPECIMEN Ordering Facility: [facility] Address: [address] [address] Performed By: #### 2 4321-2 #### [facility] CLIA [id number] [address] Platelet mean volume (Bld) [Entitic vol] 9.5 fL Normal 9.0-12.7 [facility] Comment on above: Order Comment: Speci men Type: BLOOD SPECIMEN Ordering Facility: [facility] Address: [address] [address] Performed By: #### 2 4321-2 #### [facility] CLIA [id number] [address] Platelets (Bld) [#/Vol] 289 10*3/uL Normal 150-400 [facility] Comment on above: Order Comment: Speci men Type: BLOOD SPECIMEN Ordering Facility: [facility] Address: [address] [place] [address] Performed By: #### 2 4321-2 #### [facility] CLIA [id number] [address] RBC (Bld) [#/Vol] 5.08 10*6/uL Normal 4.20-6.00 [facility] Comment on above: Order Comment: Speci men Type: BLOOD SPECIMEN Ordering Facility: [facility] Address: [address] [place] [address] Performed By: #### 2 4321-2 #### [facility] CLIA [id number] [address] WBC (Bld) [#/Vol] 5.80 10*3/uL Normal 3.70-11.00 [facility] Comment on above: Order Comment: Speci men Type: BLOOD SPECIMEN Ordering Facility: [facility] Address: [address] [place] [address] Performed By: #### 2 4321-2 #### [facility] CLIA [id number] [address] ALLIED HEALTHon 11-30-2022 ALLIED HEALTH HNO ID: [id number] Author: RT Danielle(Lisa) Service: Radiology Author Type: Technologist Type: Allied Health Filed: 11/30/2022 8:46 AM Note Text: Radiology Service Progress Note PATIENT NAME: Eunice Vargas DATE OF SERVICE: November 30, 2022 TIME: 8:46 AM PATIENT IDENTITY VERIFICATION COMPLETED USING TWO (2) IDENTIFIERS: Name and Date of confirmed by patient verbally and Name and Date of confirmed by identification band. FALL SCREENING: Has the patient had 2 falls in the last year or 1 fall with injury or currently using an Ambulatory Assistive Device (Walker, Cane, Wheelchair, Crutches, etc.)? Inpatient: Screened on floor PATIENT GENDER DATA: Male PATIENT RELEVANT IMPLANT DATA REVIEWED: Not Applicable RADIOLOGY DEPARTMENT: General X-ray: Exam(s) Completed: Abdomen X-Ray: Abdomen PERIPHERAL IV DATA: Not applicable SIGNED BY: RT Dnaielle(R) November 30, 2022 8:46 AM Normal [facility] Basic metabolic 2000 panelon 11-30-2022 Anion gap [Moles/Vol] 20 mmol/L High 9-18 [facility] Comment on above: Order Comment: Speci men Type: BLOOD SPECIMEN Ordering Facility: [facility] Address: [address] [place] [address] Performed By: #### 2 4321-2 #### [facility] CLIA [id number] [address] [place] Calcium [Mass/Vol] 10.0 mg/dL Normal 8.5-10.2 [facility] Comment on above: Order Comment: Speci men Type: BLOOD SPECIMEN Ordering Facility: [facility] Address: [address] [place] [address] Performed By: #### 2 4321-2 #### [facility] CLIA [id number] [address] [place] Chloride [Moles/Vol] 95 mmol/L Low 97-105 [facility] Comment on above: Order Comment: Speci men Type: BLOOD SPECIMEN Ordering Facility: [facility] Address: [address] [place] [address] Performed By: #### 2 4321-2 #### [facility] CLIA [id number] 1 [place] [address] [place] CO2 [Moles/Vol] 17 mmol/L Low 22-30 [facility] Comment on above: Order Comment: Speci men Type: BLOOD SPECIMEN Ordering Facility: [facility] Address: [address] [place] [address] Performed By: #### 2 4321-2 #### [facility] CLIA [id number] 1 [place] [address] [place] Creatinine [Mass/Vol] 1.25 mg/dL High 0.73-1.22 [facility] Comment on above: Order Comment: Jeff mata Type: BLOOD SPECIMEN Ordering Facility: [facility] Address: [address] [place] [address] Performed By: #### 2 4321-2 #### [facility] CLIA [id number] 1 [place] [address] [place] ESTIMATED GLOMERULAR FILTRATION RATE 77 mL/min/1.73m??? Normal >=60 [facility] Comment on above: Order Comment: Jeff mata Type: BLOOD SPECIMEN Ordering Facility: [facility] Address: [address] [place] [address] Result Comment: Jody mated Glomerular Filtration Rate [...] GFR. Performed By: #### 2 4321-2 #### [facility] CLIA [id number] 1 [place] [address] [place] Glucose [Mass/Vol] 117 mg/dL High 74-99 [facility] Comment on above: Order Comment: Jeff adolfo Type: BLOOD SPECIMEN Ordering Facility: [facility] Address: [address] [place] [address] Result Comment: The [place] [employer] (ADA) provides guidance for cutoff [...] Standards of Medical Care in Diabetes 2016, [place] [employer]. Diabetes Care. 2016.39(Suppl 1). Performed By: #### 2 4321-2 #### [facility] CLIA [id number] [address] [place] Potassium [Moles/Vol] 4.4 mmol/L Normal 3.7-5.1 [facility] Comment on above: Order Comment: Speci men Type: BLOOD SPECIMEN Ordering Facility: [facility] Address: [address] [place] [address] Performed By: #### 2 4321-2 #### [facility] CLIA [id number] [address] [place] Sodium [Moles/Vol] 132 mmol/L Low 136-144 [facility] Comment on above: Order Comment: Speci men Type: BLOOD SPECIMEN Ordering Facility: [facility] Address: [address] [place] [address] Performed By: #### 2 4321-2 #### [facility] CLIA [id number] [address] [place] Urea nitrogen [Mass/Vol] 30 mg/dL High 9-24 [facility] Comment on above: Order Comment: Speci men Type: BLOOD SPECIMEN Ordering Facility: [facility] Address: [address] [place] [address] Performed By: #### 2 4321-2 #### [facility] CLIA [id number] [address] [place] CBC panel Auto (Bld)on 11-30 Erythrocyte distribution width (RBC) [Ratio] 12.7 % Normal 11.5-15.0 [facility] Comment on above: Order Comment: Speci men Type: BLOOD SPECIMEN Ordering Facility: [facility] Address: [address] [place] [address] Performed By: #### 5 8410-2 #### [facility] CLIA [id number] [address] [place] Hematocrit (Bld) [Volume fraction] 47.8 % Normal 39.0-51.0 [facility] Comment on above: Order Comment: Speci men Type: BLOOD SPECIMEN Ordering Facility: [facility] Address: [address] [address] Performed By: #### 5 8410-2 #### [facility] CLIA [id number] [address] Hemoglobin (Bld) [Mass/Vol] 16.5 g/dL Normal 13.0-17.0 [facility] Comment on above: Order Comment: Speci men Type: BLOOD SPECIMEN Ordering Facility: [facility] Address: [address] [address] Performed By: #### 5 8410-2 #### [facility] CLIA [id number] [address] MCH (RBC) [Entitic mass] 29.8 pg Normal 26.0-34.0 [facility] Comment on above: Order Comment: Speci men Type: BLOOD SPECIMEN Ordering Facility: [facility] Address: [address] [address] Performed By: #### 5 8410-2 #### [facility] CLIA [id number] [address] MCHC (RBC) [Mass/Vol] 34.5 g/dL Normal 30.5-36.0 [facility] Comment on above: Order Comment: Speci men Type: BLOOD SPECIMEN Ordering Facility: [facility] Address: [address] [address] Performed By: #### 5 8410-2 #### [facility] CLIA [id number] [address] MCV (RBC) [Entitic vol] 86.3 fL Normal 80.0-100.0 [facility] Comment on above: Order Comment: Speci men Type: BLOOD SPECIMEN Ordering Facility: [facility] Address: [address] [place] [address] Performed By: #### 5 8410-2 #### [facility] CLIA [id number] [address] Nucleated RBC (Bld) [#/Vol] 10*3/uL Normal <0.01 [facility] Comment on above: Order Comment: Speci men Type: BLOOD SPECIMEN Ordering Facility: [facility] Address: [address] [address] Performed By: #### 5 8410-2 #### [facility] CLIA [id number] [address] [place] Platelet mean volume (Bld) [Entitic vol] 9.9 fL Normal 9.0-12.7 [facility] Comment on above: Order Comment: Speci men Type: BLOOD SPECIMEN Ordering Facility: [facility] Address: [address] [address] Performed By: #### 5 8410-2 #### [facility] CLIA [id number] [address] [place] Platelets (Bld) [#/Vol] 380 10*3/uL Normal 150-400 [facility] Comment on above: Order Comment: Speci men Type: BLOOD SPECIMEN Ordering Facility: [facility] Address: [address] [address] Performed By: #### 5 8410-2 #### [facility] CLIA [id number] [address] [place] RBC (Bld) [#/Vol] 5.54 10*6/uL Normal 4.20-6.00 [facility] Comment on above: Order Comment: Speci men Type: BLOOD SPECIMEN Ordering Facility: [facility] Address: [address] [address] Performed By: #### 5 8410-2 #### [facility] CLIA [id number] [address] [place] WBC (Bld) [#/Vol] 7.73 10*3/uL Normal 3.70-11.00 [facility] Comment on above: Order Comment: Speci men Type: BLOOD SPECIMEN Ordering Facility: [facility] Address: [address] [address] Performed By: #### 5 8410-2 #### [facility] CLIA [id number] [address] [place] NURSING PROGon 11-30-2022 NURSING PROG HNO ID: [id number] Author: Mariposa Nina RN Service: Nursing Author Type: Registered Nurse Type: Nursing Progress Note Filed: 11/30/2022 2:43 AM Note Text: No complaint of nausea at this time, per pt sensation of bloating has somewhat improved. Medicated with tramadol for discomfort, RN will continue to monitor. Normal [facility] XR ABDOMEN 1V SUPINEon 11-30 XR ABDOMEN [...] of exclusion. Consider further assessment with CT. Advertising Agency Manager: PSCB Transcribe Date/Time: Nov 30 2022 9:05A Dictated by : YOGESH BONILLA MD This examination was interpreted and the report reviewed and electronically signed by: YOGESH BONILLA MD on Nov 30 2022 9:07AM EST [id number] Normal [facility] Basic metabolic 2000 panelon 11-29-2022 Anion gap [Moles/Vol] 13 mmol/L Normal 9-18 [facility] Comment on above: Order Comment: Speci men Type: BLOOD SPECIMEN Ordering Facility: [facility] Address: [address] [place] [id number] Performed By: #### 5 8410-2 #### [facility] CLIA [id number] [address] [place] Calcium [Mass/Vol] 9.7 mg/dL Normal 8.5-10.2 [facility] Comment on above: Order Comment: Speci men Type: BLOOD SPECIMEN Ordering Facility: [facility] Address: [address] [place] [address] Performed By: #### 5 8410-2 #### [facility] CLIA [id number] [address] [place] Chloride [Moles/Vol] 97 mmol/L Normal 97-105 [facility] Comment on above: Order Comment: Speci men Type: BLOOD SPECIMEN Ordering Facility: [facility] Address: [address] [place] [address] Performed By: #### 5 8410-2 #### [facility] CLIA [id number] [address] STATES OF [facility] CO2 [Moles/Vol] 25 mmol/L Normal 22-30 [facility] Comment on above: Order Comment: Speci men Type: BLOOD SPECIMEN Ordering Facility: [facility] Address: [address] [place] [address] Performed By: #### 5 8410-2 #### [facility] CLIA [id number] [address] [place] Creatinine [Mass/Vol] 0.94 mg/dL Normal 0.73-1.22 [facility] Comment on above: Order Comment: Speci men Type: BLOOD SPECIMEN [facility] [facility] Address: [address] [place] [address] Performed By: #### 5 8410-2 #### [facility] CLIA [id number] [address] ESTIMATED GLOMERULAR FILTRATION RATE 108 mL/min/1.73m??? Normal >=60 [facility] Comment on above: Order Comment: Speci men Type: BLOOD SPECIMEN Ordering Facility: [facility] Address: [address] [place], [place] [address] Result Comment: Jody mated Glomerular Filtration Rate [...] GFR. Performed By: #### 5 8410-2 #### [facility] CLIA [id number] 1 [place] [address] [place] Glucose [Mass/Vol] 113 mg/dL High 74-99 [facility] Comment on above: Order Comment: Jeff mata Type: BLOOD SPECIMEN Ordering Facility: [facility] Address: [address] [place] [address] Result Comment: The [place] Diabetes Association (ADA) provides guidance for cutoff [...] Standards of Medical Care in Diabetes 2016, [place] [employer]. Diabetes Care. 2016.39(Suppl 1). Performed By: #### 5 8410-2 #### [facility] CLIA [id number] [address] [place] [address] [place] Potassium [Moles/Vol] 3.9 mmol/L Normal 3.7-5.1 [facility] Comment on above: Order Comment: Jeff mata Type: BLOOD SPECIMEN Ordering Facility: [facility] Address: [address] [address] Performed By: #### 5 8410-2 #### [facility] CLIA [id number] 1 [place] [address] [place] Sodium [Moles/Vol] 135 mmol/L Low 136-144 [facility] Comment on above: Order Comment: Speci men Type: BLOOD SPECIMEN Ordering Facility: [facility] Address: [address] [address] Performed By: #### 5 8410-2 #### [facility] CLIA [id number] [address] [facility] Urea nitrogen [Mass/Vol] 13 mg/dL Normal 9-24 [facility] Comment on above: Order Comment: Speci men Type: BLOOD SPECIMEN Ordering Facility: [facility] Address: [address] [address] Performed By: #### 5 8410-2 #### [facility] CLIA [id number] [address] [facility] CBC panel Auto (Bld)on 11-29 Erythrocyte distribution width (RBC) [Ratio] 13.2 % Normal 11.5-15.0 [facility] Comment on above: Order Comment: Speci men Type: BLOOD SPECIMEN Ordering Facility: [facility] Address: [address] [address] Performed By: #### 5 8410-2 #### [facility] CLIA [id number] [address] [facility] Hematocrit (Bld) [Volume fraction] 46.7 % Normal 39.0-51.0 [facility] Comment on above: Order Comment: Speci men Type: BLOOD SPECIMEN Ordering Facility: [facility] Address: [address] [address] Performed By: #### 5 8410-2 #### [facility] CLIA [id number] [address] [place] Hemoglobin (Bld) [Mass/Vol] 15.8 g/dL Normal 13.0-17.0 [facility] Comment on above: Order Comment: Speci men Type: BLOOD SPECIMEN Ordering Facility: [facility] Address: [address] [address] Performed By: #### 5 8410-2 #### [facility] CLIA [id number] [address] MCH (RBC) [Entitic mass] 29.4 pg Normal 26.0-34.0 [facility] Comment on above: Order Comment: Speci men Type: BLOOD SPECIMEN Ordering Facility: [facility] Address: [address] [place] [address] Performed By: #### 5 8410-2 #### [facility] CLIA [id number] [address] MCHC (RBC) [Mass/Vol] 33.8 g/dL Normal 30.5-36.0 [facility] Comment on above: Order Comment: Speci men Type: BLOOD SPECIMEN Ordering Facility: [facility] Address: [address] [place] [address] Performed By: #### 5 8410-2 #### [facility] CLIA [id number] [address] MCV (RBC) [Entitic vol] 86.8 fL Normal 80.0-100.0 [facility] Comment on above: Order Comment: Speci men Type: BLOOD SPECIMEN Ordering Facility: [facility] Address: [address] [place] [address] Performed By: #### 5 8410-2 #### [facility] CLIA [id number] [address] Nucleated RBC (Bld) [#/Vol] 10*3/uL Normal <0.01 [facility] Comment on above: Order Comment: Speci men Type: BLOOD SPECIMEN Ordering Facility: [facility] Address: [address] [place] [address] Performed By: #### 5 8410-2 #### [facility] CLIA [id number] [address] Platelet mean volume (Bld) [Entitic vol] 9.4 fL Normal 9.0-12.7 [facility] Comment on above: Order Comment: Speci men Type: BLOOD SPECIMEN Ordering Facility: [facility] Address: [address] [address] Performed By: #### 5 8410-2 #### [facility] CLIA [id number] [address] Platelets (Bld) [#/Vol] 278 10*3/uL Normal 150-400 [facility] Comment on above: Order Comment: Speci men Type: BLOOD SPECIMEN Ordering Facility: [facility] Address: [address] [address] Performed By: #### 5 8410-2 #### [facility] CLIA [id number] [address] RBC (Bld) [#/Vol] 5.38 10*6/uL Normal 4.20-6.00 [facility] Comment on above: Order Comment: Speci men Type: BLOOD SPECIMEN Ordering Facility: [facility] Address: [address] [address] Performed By: #### 5 8410-2 #### [facility] CLIA [id number] [address] WBC (Bld) [#/Vol] 7.87 10*3/uL Normal 3.70-11.00 [facility] Comment on above: Order Comment: Speci men Type: BLOOD SPECIMEN Ordering Facility: [facility] Address: [address] [place] [address] Performed By: #### 5 8410-2 #### [facility] CLIA [id number] [address] NURSING PROGon 11-29-2022 NURSING PROG HNO ID: [id number] Author: Asif Dacosta RN Service: Nursing Author [...] Will continue to monitor. Normal [facility] Basic metabolic 2000 panelon 11-28-2022 Anion gap [Moles/Vol] 15 mmol/L Normal 9-18 [facility] Comment on above: Order Comment: Speci men Type: BLOOD SPECIMEN Ordering Facility: [facility] Address: [address] [place] [address] Performed By: #### 2 4321-2 #### [facility] CLIA [id number] [address] [place] Calcium [Mass/Vol] 9.7 mg/dL Normal 8.5-10.2 [facility] Comment on above: Order Comment: Speci men Type: BLOOD SPECIMEN Ordering Facility: [facility] Address: [address] [place] [address] Performed By: #### 2 4321-2 #### [facility] CLIA [id number] [address] [place] Chloride [Moles/Vol] 99 mmol/L Normal 97-105 [facility] Comment on above: Order Comment: Speci men Type: BLOOD SPECIMEN Ordering Facility: [facility] Address: [address] [place] [address] Performed By: #### 2 4321-2 #### [facility] CLIA [id number] [address] [place] CO2 [Moles/Vol] 22 mmol/L Normal 22-30 [facility] Comment on above: Order Comment: Speci men Type: BLOOD SPECIMEN Ordering Facility: [facility] Address: [address] [place] [address] Performed By: #### 2 4321-2 #### [facility] CLIA [id number] 1 [place] [address] [place] Creatinine [Mass/Vol] 0.82 mg/dL Normal 0.73-1.22 [facility] Comment on above: Order Comment: Speci men Type: BLOOD SPECIMEN Ordering Facility: [facility] Address: [address] [place] [address] Performed By: #### 2 4321-2 #### [facility] CLIA [id number] [address] [place] ESTIMATED GLOMERULAR FILTRATION RATE 117 mL/min/1.73m??? Normal >=60 [facility] Comment on above: Order Comment: Jeff mata Type: BLOOD SPECIMEN Ordering Facility: [facility] Address: [address] [place] [address] Result Comment: Jody mated Glomerular Filtration Rate [...] GFR. Performed By: #### 2 4321-2 #### [facility] CLIA [id number] 1 [place] [address] [place] Glucose [Mass/Vol] 117 mg/dL High 74-99 [facility] Comment on above: Order Comment: Specdavid mata Type: BLOOD SPECIMEN Ordering Facility: [facility] Address: [address] [place] [address] Result Comment: The [place] Diabetes [employer] (ADA) provides guidance for cutoff [...] Standards of Medical Care in Diabetes 2016, [place] [employer]. Diabetes Care. 2016.39(Suppl 1). Performed By: #### 2 4321-2 #### [facility] CLIA [id number] 1 [place] [address] [place] Potassium [Moles/Vol] 3.6 mmol/L Low 3.7-5.1 [facility] Comment on above: Order Comment: Speci men Type: BLOOD SPECIMEN Ordering Facility: [facility] Address: [address] [place] [address] Performed By: #### 2 4321-2 #### [facility] CLIA [id number] [address] Sodium [Moles/Vol] 136 mmol/L Normal 136-144 [facility] Comment on above: Order Comment: Speci men Type: BLOOD SPECIMEN Ordering Facility: [facility] Address: [address] [place] [address] Performed By: #### 2 4321-2 #### [facility] CLIA [id number] [address] Urea nitrogen [Mass/Vol] 8 mg/dL Low 9-24 [facility] Comment on above: Order Comment: Speci men Type: BLOOD SPECIMEN Ordering Facility: [facility] Address: [address] [place] [address] Performed By: #### 2 4321-2 #### [facility] CLIA [id number] [address] [facility] CBC panel Auto (Bld)on 11-28 Erythrocyte distribution width (RBC) [Ratio] 13.1 % Normal 11.5-15.0 [facility] Comment on above: Order Comment: Speci men Type: BLOOD SPECIMEN Ordering Facility: [facility] Address: [address] [place] [address] Performed By: #### 2 4321-2 #### [facility] CLIA [id number] [address] Hematocrit (Bld) [Volume fraction] 46.3 % Normal 39.0-51.0 [facility] Comment on above: Order Comment: Speci men Type: BLOOD SPECIMEN Ordering Facility: [facility] Address: [address] [place] [address] Performed By: #### 2 4321-2 #### [facility] CLIA [id number] [address] Hemoglobin (Bld) [Mass/Vol] 15.7 g/dL Normal 13.0-17.0 [facility] Comment on above: Order Comment: Speci men Type: BLOOD SPECIMEN Ordering Facility: [facility] Address: [address] [place] [address] Performed By: #### 2 4321-2 #### [facility] CLIA [id number] [address] MCH (RBC) [Entitic mass] 29.5 pg Normal 26.0-34.0 [facility] Comment on above: Order Comment: Speci men Type: BLOOD SPECIMEN Ordering Facility: [facility] Address: [address] [place] [address] Performed By: #### 2 4321-2 #### [facility] CLIA [id number] [address] MCHC (RBC) [Mass/Vol] 33.9 g/dL Normal 30.5-36.0 [facility] Comment on above: Order Comment: Speci men Type: BLOOD SPECIMEN Ordering Facility: [facility] Address: [address] [place] [address] Performed By: #### 2 4321-2 #### [facility] CLIA [id number] [address] MCV (RBC) [Entitic vol] 87.0 fL Normal 80.0-100.0 [facility] Comment on above: Order Comment: Speci men Type: BLOOD SPECIMEN Ordering Facility: [facility] Address: [address] [place] [address] Performed By: #### 2 4321-2 #### [facility] CLIA [id number] [address] Nucleated RBC (Bld) [#/Vol] 10*3/uL Normal <0.01 [facility] Comment on above: Order Comment: Speci men Type: BLOOD SPECIMEN Ordering Facility: [facility] Address: [address] [address] Performed By: #### 2 4321-2 #### [facility] CLIA [id number] [address] [facility] Platelet mean volume (Bld) [Entitic vol] 9.3 fL Normal 9.0-12.7 [facility] Comment on above: Order Comment: Speci men Type: BLOOD SPECIMEN Ordering Facility: [facility] Address: [address] [place] [address] Performed By: #### 2 4321-2 #### [facility] CLIA [id number] [address] [place] Platelets (Bld) [#/Vol] 285 10*3/uL Normal 150-400 [facility] Comment on above: Order Comment: Speci men Type: BLOOD SPECIMEN Ordering Facility: [facility] Address: [address] [place] [address] Performed By: #### 2 4321-2 #### [facility] CLIA [id number] [address] [place] RBC (Bld) [#/Vol] 5.32 10*6/uL Normal 4.20-6.00 [facility] Comment on above: Order Comment: Speci men Type: BLOOD SPECIMEN Ordering Facility: [facility] Address: [address] [place] [address] Performed By: #### 2 4321-2 #### [facility] CLIA [id number] [address] [place] WBC (Bld) [#/Vol] 13.28 10*3/uL High 3.70-11.00 [facility] Comment on above: Order Comment: Speci men Type: BLOOD SPECIMEN Ordering Facility: [facility] Address: [address] [place] [address] Performed By: #### 2 4321-2 #### [facility] CLIA [id number] [address] [place] Basic metabolic 2000 panelon 11-27-2022 Anion gap [Moles/Vol] 10 mmol/L Normal 9-18 [facility] Comment on above: Order Comment: Speci men Type: BLOOD SPECIMEN Ordering Facility: [facility] Address: [address] [place] [address] Performed By: #### 5 8410-2 #### [facility] CLIA [id number] 1 [place] [address] [place] Calcium [Mass/Vol] 8.2 mg/dL Low 8.5-10.2 [facility] Comment on above: Order Comment: Speci men Type: BLOOD SPECIMEN Ordering Facility: [facility] Address: [address] [place] [address] Performed By: #### 5 8410-2 #### [facility] CLIA [id number] [address] [place] Chloride [Moles/Vol] 106 mmol/L High 97-105 [facility] Comment on above: Order Comment: Speci men Type: BLOOD SPECIMEN Ordering Facility: [facility] Address: [address] [place] [address] Performed By: #### 5 8410-2 #### [facility] CLIA [id number] [address] [place] CO2 [Moles/Vol] 21 mmol/L Low 22-30 [facility] Comment on above: Order Comment: Speci men Type: BLOOD SPECIMEN Ordering Facility: [facility] Address: [address] [place] [address] Performed By: #### 5 8410-2 #### [facility] CLIA [id number] [address] [place] Creatinine [Mass/Vol] 0.85 mg/dL Normal 0.73-1.22 [facility] Comment on above: Order Comment: Speci men Type: BLOOD SPECIMEN Ordering Facility: [facility] Address: [address] [place] [address] Performed By: #### 5 8410-2 #### [facility] CLIA [id number] 1 [place] [address] [place] ESTIMATED GLOMERULAR FILTRATION RATE 115 mL/min/1.73m??? Normal >=60 [facility] Comment on above: Order Comment: Jeff mata Type: BLOOD SPECIMEN Ordering Facility: [facility] Address: [address] [place] [address] Result Comment: Jody mated Glomerular Filtration Rate [...] GFR. Performed By: #### 5 8410-2 #### [facility] CLIA [id number] [address] [place] [address] [place] Glucose [Mass/Vol] 87 mg/dL Normal 74-99 [facility] Comment on above: Order Comment: Jeff mata Type: BLOOD SPECIMEN Ordering Facility: [facility] Address: [address] [place] [address] Result Comment: The [place] Diabetes Association (ADA) provides guidance for cutoff [...] Standards of Medical Care in Diabetes 2016, [place] [employer]. Diabetes Care. 2016.39(Suppl 1). Performed By: #### 5 8410-2 #### [facility] CLIA [id number] 1 [place] [address] [place] Potassium [Moles/Vol] 4.0 mmol/L Normal 3.7-5.1 [facility] Comment on above: Order Comment: Speci men Type: BLOOD SPECIMEN Ordering Facility: [facility] Address: [address] [address] Performed By: #### 5 8410-2 #### [facility] CLIA [id number] [address] Sodium [Moles/Vol] 137 mmol/L Normal 136-144 [facility] Comment on above: Order Comment: Speci men Type: BLOOD SPECIMEN Ordering Facility: [facility] Address: [address] [place] [address] Performed By: #### 5 8410-2 #### [facility] CLIA [id number] [address] Urea nitrogen [Mass/Vol] 8 mg/dL Low 9-24 [facility] Comment on above: Order Comment: Speci men Type: BLOOD SPECIMEN Ordering Facility: [facility] Address: [address] [place] [address] Performed By: #### 5 8410-2 #### [facility] CLIA [id number] [address] CBC panel Auto (Bld)on 11-27 Erythrocyte distribution width (RBC) [Ratio] 13.1 % Normal 11.5-15.0 [facility] Comment on above: Order Comment: Speci men Type: BLOOD SPECIMEN Ordering Facility: [facility] Address: [address] [place] [address] Performed By: #### 2 4321-2 #### [facility] CLIA [id number] [address] Hematocrit (Bld) [Volume fraction] 38.7 % Low 39.0-51.0 [facility] Comment on above: Order Comment: Speci men Type: BLOOD SPECIMEN Ordering Facility: [facility] Address: [address] [place] [address] Performed By: #### 2 4321-2 #### [facility] CLIA [id number] [address] [place] [address] [place] Hemoglobin (Bld) [Mass/Vol] 13.1 g/dL Normal 13.0-17.0 [facility] Comment on above: Order Comment: Speci men Type: BLOOD SPECIMEN Ordering Facility: [facility] Address: [address] [address] Performed By: #### 2 4321-2 #### [facility] CLIA [id number] [address] MCH (RBC) [Entitic mass] 30.1 pg Normal 26.0-34.0 [facility] Comment on above: Order Comment: Speci men Type: BLOOD SPECIMEN Ordering Facility: [facility] Address: [address] [address] Performed By: #### 2 1-2 #### [facility] CLIA [id number] [address] [facility] MCHC (RBC) [Mass/Vol] 33.9 g/dL Normal 30.5-36.0 [facility] Comment on above: Order Comment: Speci men Type: BLOOD SPECIMEN Ordering Facility: [facility] Address: [address] [place] [address] Performed By: #### 2 1-2 #### [facility] CLIA [id number] [address] MCV (RBC) [Entitic vol] 89.0 fL Normal 80.0-100.0 [facility] Comment on above: Order Comment: Speci men Type: BLOOD SPECIMEN Ordering Facility: [facility] Address: [address] [address] Performed By: #### 2 1-2 #### [facility] CLIA [id number] [address] Nucleated RBC (Bld) [#/Vol] 10*3/uL Normal <0.01 [facility] Comment on above: Order Comment: Speci men Type: BLOOD SPECIMEN Ordering Facility: [facility] Address: [address] [place] [address] Performed By: #### 2 4321-2 #### [facility] CLIA [id number] [address] [place] Platelet mean volume (Bld) [Entitic vol] 9.6 fL Normal 9.0-12.7 [facility] Comment on above: Order Comment: Speci men Type: BLOOD SPECIMEN Ordering Facility: [facility] Address: [address] [place] [address] Performed By: #### 2 4321-2 #### [facility] CLIA [id number] [address] [place] Platelets (Bld) [#/Vol] 198 10*3/uL Normal 150-400 [facility] Comment on above: Order Comment: Speci men Type: BLOOD SPECIMEN Ordering Facility: [facility] Address: [address] [place] [address] Performed By: #### 2 4321-2 #### [facility] CLIA [id number] [address] RBC (Bld) [#/Vol] 4.35 10*6/uL Normal 4.20-6.00 [facility] Comment on above: Order Comment: Speci men Type: BLOOD SPECIMEN Ordering Facility: [facility] Address: [address] [place] [address] Performed By: #### 2 1-2 #### [facility] CLIA [id number] [address] [place] WBC (Bld) [#/Vol] 8.14 10*3/uL Normal 3.70-11.00 [facility] Comment on above: Order Comment: Speci men Type: BLOOD SPECIMEN Ordering Facility: [facility] Address: [address] [place] [address] Performed By: #### 2 4321-2 #### [facility] CLIA [id number] [address] ANES POSTPROC EVALon 11-26-2 023 ANES POSTPROC EVAL HNO ID: [id number] Author: Collin Capone DO Service: Anesthesiology Author Type: Physician Type: Anesthesia Postprocedure Evaluation Filed: 11/26/2022 11:22 AM Note Text: POST ANESTHESIA EVALUATION NOTE : 1985 Procedure Summary Date: 11/26/22 Room / Location: [facility] OR [place] OR Anesthesia Start: 729 Anesthesia Stop: 925 [...] 16 11/26/22 1121 SpO2 100 % 11/26/22 112 Vitals shown include unvalidated device data. Post [...] November 26, 2022 TIME: 11:22 AM CSN: [id number] [facility] ANES PRE-OPon 11-26-2022 ANES PRE-OP HNO ID: [id number] Author: Collin Capone DO Service: Anesthesiology Author Type: Physician Type: Anesthesia Preprocedure Evaluation Filed: 11/26/2022 7:19 AM Note Text: ANESTHESIOLOGY DAY OF SURGERY NOTE : 1985 Procedure Information Date/Time: 11/26/22729 Procedure: CLOSURE ILEOSTOMY (Pending) Location: [place] Surgeons: Collin Le MD Estimated body [...] and consent discussed: yes. Patient / Responsible Republican agrees to proceed: yes Patient / Surrogate agrees to blood products: blood products not planned Significant changes in the patient condition since the History and Physical, not otherwise documented in primary service progress note: no. Potential Anesthesia issues that may suggest increased risk of complications or contraindication to planned procedure: none. Vitals Value Taken Time BP 123/95 11/26/22 0645 Pulse 63 11/26/22 0645 Resp 16 11/26/22 0645 Temp 36.9 ?C (98.4 ?F) 11/26/22 0645 SpO2 100 % 11/26/22 0645 Facility-Administered Medications as of 11/26/2022 Medication Dose [...] drainable pouch OR - 2 boxes Coloplast Scotia red flat wafer # 24043 - 1 box Coloplast Scotia red drainable pouches # 13642 - 1 box Ryan small barrier rings # 7805 - 1 tube stomahesive paste # 2650 - 1 box Coloplast Elastic barrier strips # 874199 - 1 bottle stomahesive powder # 63622 - 1 box adhesive remover wipes - [...] November 26, 2022 TIME: 7:18 AM CSN: [id number] [facility] HISTORY PHYSICALon HISTORY PHYSICAL HNO ID: [id number] Author: Collin Le MD Service: Colorectal Author [...] Vargas DATE: 11/26/22 TIME: 7:22 AM PAGER: [phone] [facility] OPERATIVE NOon 11-26-2022 OPERATIVE NO HNO ID: [id number] Author: Collin Le MD Service: Colorectal Author Type: Physician Type: Operative Report Filed: 11/26/2022 9:31 AM Note Text: OPERATIVE REPORT Log ID: [id number] Surgery Date: 11/26/2022 Incision/Procedure Start Time: 7:59 AM Incision Close/Procedure End Time: 9:14 AM Surgeon(s) and Continuous Miner Operator Helper(s): Surgeon(s) and Role: * Collin Le MD [...] to the recovery room in good condition. ICollin MD, staff surgeon, was present and participated in the entire procedure with the above-listed assistance. ESTIMATED BLOOD LOSS: 10 ml DRAINS: None. SPECIMENS: Ileostomy COMPLICATIONS: None. Collin Le MD Departments of General Surgery Pager: [phone] November 26, 2022 Please Note: This office note has been created using [employer], a speech recognition software program, and may contain errors including punctuation, grammar, spelling, gender, and inappropriate words or phrases that pertain to the sytem. Normal [facility] SURGICAL PATHOLOGYon 023 CASE REPORT Normal [facility] Comment on above: Order Comment: Speci men Type: TISSUE SPECIMENOrdering Facility: [facility] Address: [address] [place] [address] [place] [address] Result Comment: Surg ica Pathology Report Case: [id number] Authorizing Provider: Collin Le MD Collected: 11/26/2022 08:15 AM Ordering Location: [place] [facility] Received: 11/26/2022 12:13 PM Pathologist: Tre Moore MD Specimen: ILEOSTOMY Performed By: #### S ####[facility] LABORATORYCLIA [id number] [address] CLINICAL HISTORY Normal [facility] Comment on above: Order Comment: Speci men Type: TISSUE SPECIMENOrdering Facility: [facility] Address: [address] [place] [address] Result Comment: Pre- op diagnosis: Colonic inertia [K59.9] Performed By: #### S ####[facility] LABORATORYCLIA [id number] [address] FINAL DIAGNOSIS Normal [facility] Comment on above: Order Comment: Speci men Type: TISSUE SPECIMENOrdering Facility: [facility] Address: [address] [place] [address] Result Comment: A. I leostomy, closure: - No pathologic abnormalities. Performed By: #### S ####[facility] LABORATORYCLIA [id number] [address] FINAL PERFORMING LAB Normal [facility] Comment on above: Order Comment: Speci men Type: TISSUE SPECIMENOrdering Facility: [facility] Address: [address] [place] [address] Result Comment: Diag nostic interpretation performed at [facility], [address] [place] [address] CLIA# [id number] Balling Head Tender: Tre Moore M.D. Performed By: #### S ####[facility] LABORATORYCLIA [id number] [address] GROSS DESCRIPTION A. ILEOSTOMY Normal [facility] Comment on above: Order Comment: Speci men Type: TISSUE SPECIMENOrdering Facility: [facility] Address: [address] [place] [address] Result Comment: Rece ived in formalin labeled ileostomy is an open ring of mucosa covered soft tissue and attached potts skin approximating to 2 cm in diameter and 1 cm in height. Carbon Grinder sections are submitted in A1. Gross examination performed at [facility], [address] [place] [address] CLIA#[id number] OLS November 26, 2022 3:33 PM Performed By: #### S ####[facility] LABORATORYCLIA [id number] [place] [address] [place] Basic metabolic 2000 panelon 11-21-2022 Anion gap [Moles/Vol] 9 mmol/L Normal 9-18 [facility] Comment on above: Order Comment: Speci men Type: BLOOD SPECIMEN [facility] Address: [address] [address] Performed By: #### 2 4321-2 #### [facility] CLIA [id number] [address] [place] [address] [place] Calcium [Mass/Vol] 8.9 mg/dL Normal 8.5-10.2 [facility] Comment on above: Order Comment: Speci men Type: BLOOD SPECIMEN [facility] Address: [address] [address] Performed By: #### 2 1-2 #### [facility] CLIA [id number] [address] [place] Chloride [Moles/Vol] 106 mmol/L High 97-105 [facility] Comment on above: Order Comment: Speci men Type: BLOOD SPECIMEN [facility] Address: [address] [address] Performed By: #### 2 4321-2 #### [facility] CLIA [id number] [address] [place] [address] [place] CO2 [Moles/Vol] 25 mmol/L Normal 22-30 [facility] Comment on above: Order Comment: Speci men Type: BLOOD SPECIMEN [facility] Address: [address] [address] Performed By: #### 2 4321-2 #### [facility] CLIA [id number] [address] STATES OF [facility] Creatinine [Mass/Vol] 0.84 mg/dL Normal 0.73-1.22 [facility] Comment on above: Order Comment: Jeff mata Type: BLOOD SPECIMEN [facility] Address: [address] [place] [address] Performed By: #### 2 4321-2 #### [facility] CLIA [id number] [address] ESTIMATED GLOMERULAR FILTRATION RATE 116 mL/min/1.73m??? Normal >=60 [facility] Comment on above: Order Comment: Jeff mata Type: BLOOD SPECIMEN [facility]: [facility] Address: [address] [place] [address] Result Comment: Jody mated Glomerular Filtration Rate [...] GFR. Performed By: #### 2 4321-2 #### [facility] CLIA [id number] [address] Glucose [Mass/Vol] 85 mg/dL Normal 74-99 [facility] Comment on above: Order Comment: Jeff mata Type: BLOOD SPECIMEN [facility] Address: [address] [place] [address] Result Comment: The [place] Diabetes Association (ADA) provides guidance for cutoff [...] Standards of Medical Care in Diabetes 2016, [place] [employer]. Diabetes Care. 2016.39(Suppl 1). Performed By: #### 2 4321-2 #### [facility] CLIA [id number] [address] STATES OF [facility] Potassium [Moles/Vol] 4.3 mmol/L Normal 3.7-5.1 [facility] Comment on above: Order Comment: Speci men Type: BLOOD SPECIMEN [facility] Address: [address] [address] Performed By: #### 2 4321-2 #### [facility] CLIA [id number] [address] STATES OF [facility] Sodium [Moles/Vol] 140 mmol/L Normal 136-144 [facility] Comment on above: Order Comment: Speci men Type: BLOOD SPECIMEN [facility] Address: [address] [address] Performed By: #### 2 4321-2 #### [facility] CLIA [id number] [address] STATES OF [facility] Urea nitrogen [Mass/Vol] 11 mg/dL Normal 9-24 [facility] Comment on above: Order Comment: Speci men Type: BLOOD SPECIMEN [facility] Address: [address] [place] [address] Performed By: #### 2 4321-2 #### [facility] CLIA [id number] [address] [place] Anion gap [Moles/Vol] 9 mmol/L 9 - 18 mmol/L [facility] Calcium [Mass/Vol] 8.9 mg/dL 8.5 - 10. 2 mg/dL [facility] Chloride [Moles/Vol] 106 mmol/L High 97 - 10 5 mmol/L [facility] CO2 [Moles/Vol] 25 mmol/L 22 - 30 mmol/L [facility] Creatinine [Mass/Vol] 0.84 mg/dL 0.73 - 1.22 mg/dL [facility] Estimated Glomerular Filtration Rate 116 mL/min/1.73m >=60 mL/min/1.73 m [facility] Glucose [Mass/Vol] 85 mg/dL 74 - 99 mg/dL [facility] Potassium [Moles/Vol] 4.3 mmol/L 3.7 - 5.1 mmol/L [facility] Sodium [Moles/Vol] 140 mmol/L 136 - 144 mmol/L [facility] Urea nitrogen [Mass/Vol] 11 mg/dL 9 - 24 mg/dL [facility] CBC panel Auto (Bld)on 11-21 Erythrocyte distribution width (RBC) [Ratio] 13.2 % Normal 11.5-15.0 [facility] Comment on above: Order Comment: Speci men Type: BLOOD SPECIMEN [facility] Address: [address] [place] [address] Performed By: #### 5 8410-2 #### [facility] CLIA [id number] [address] Hematocrit (Bld) [Volume fraction] 42.9 % Normal 39.0-51.0 [facility] Comment on above: Order Comment: Speci men Type: BLOOD SPECIMEN [facility]: [facility] Address: [address] [place] [address] Performed By: #### 5 8410-2 #### [facility] CLIA [id number] [address] OF [facility] Hemoglobin (Bld) [Mass/Vol] 14.4 g/dL Normal 13.0-17.0 [facility] Comment on above: Order Comment: Speci men Type: BLOOD SPECIMEN [facility]: [facility] Address: [address] [place] [address] Performed By: #### 5 8410-2 #### [facility] CLIA [id number] [address] MCH (RBC) [Entitic mass] 29.9 pg Normal 26.0-34.0 [facility] Comment on above: Order Comment: Speci men Type: BLOOD SPECIMEN [facility]: [facility] Address: [address] [place] [address] Performed By: #### 5 8410-2 #### [facility] CLIA [id number] [address] MCHC (RBC) [Mass/Vol] 33.6 g/dL Normal 30.5-36.0 [facility] Comment on above: Order Comment: Speci men Type: BLOOD SPECIMEN [facility]: [facility] Address: [address] [place] [address] Performed By: #### 5 8410-2 #### [facility] CLIA [id number] [address] MCV (RBC) [Entitic vol] 89.2 fL Normal 80.0-100.0 [facility] Comment on above: Order Comment: Speci men Type: BLOOD SPECIMEN [facility] Facility: [facility] Address: [address] [place] [address] Performed By: #### 5 8410-2 #### [facility] CLIA [id number] [address] Nucleated RBC (Bld) [#/Vol] 10*3/uL Normal <0.01 [facility] Comment on above: Order Comment: Speci men Type: BLOOD SPECIMEN [facility]: [facility] Address: [address] [address] Performed By: #### 5 8410-2 #### [facility] CLIA [id number] [address] STATES [facility] Platelet mean volume (Bld) [Entitic vol] 9.4 fL Normal 9.0-12.7 [facility] Comment on above: Order Comment: Speci men Type: BLOOD SPECIMEN [facility] Facility: [facility] Address: [address] [address] Performed By: #### 5 8410-2 #### [facility] CLIA [id number] [address] [place] Platelets (Bld) [#/Vol] 251 10*3/uL Normal 150-400 [facility] Comment on above: Order Comment: Speci men Type: BLOOD SPECIMEN [facility] Facility: [facility] Address: [address] [address] Performed By: #### 5 8410-2 #### [facility] CLIA [id number] [address] RBC (Bld) [#/Vol] 4.81 10*6/uL Normal 4.20-6.00 [facility] Comment on above: Order Comment: Speci men Type: BLOOD SPECIMEN [facility] Facility: [facility] Address: [address] [address] Performed By: #### 5 8410-2 #### [facility] CLIA [id number] [address] WBC (Bld) [#/Vol] 5.63 10*3/uL Normal 3.70-11.00 [facility] Comment on above: Order Comment: Speci men Type: BLOOD SPECIMEN [facility] Address: [address] [address] Performed By: #### 5 8410-2 #### [facility] CLIA [id number] [address] Erythrocyte distribution width (RBC) [Ratio] 13.2 % 11.5 - 15.0 % [facility] Hematocrit (Bld) [Volume fraction] 42.9 % 39.0 - 51.0 % [facility] Hemoglobin (Bld) [Mass/Vol] 14.4 g/dL 13.0 - 17.0 g/dL [facility] MCH (RBC) [Entitic mass] 29.9 pg 26.0 - 34.0 pg [facility] MCHC (RBC) [Mass/Vol] 33.6 g/dL 30.5 - 36.0 g/dL [facility] MCV (RBC) [Entitic vol] 89.2 fL 80.0 - 100.0 fL [facility] Nucleated RBC (Bld) [#/Vol] <0.01 k/uL [facility] Platelet mean volume (Bld) [Entitic vol] 9.4 fL 9.0 - 12.7 fL [facility] Platelets (Bld) [#/Vol] 251 10*3/uL 150 - 400 k/uL [facility] RBC (Bld) [#/Vol] 4.81 10*6/uL 4.20 - 6.0 0 m/uL [facility] WBC (Bld) [#/Vol] 5.63 10*3/uL 3.70 - 11.00 k/uL [facility] HISTORY PHYSICALon HISTORY PHYSICAL HNO ID: [id number] Author: Kinza Sutton APRN.INTERNATIONAL RELATIONS PROFESSOR Service: ? Author Type: Nurse Practitioner Type: [...] COVID-19 booster vaccine, age 12+ yr, bivalent ([employer]) 07/31/2021 Imm Admin: COVID-19 original vaccine, full [...] (more content not included)... Normal [facility] ANES POSTPROC EVALon 023 ANES POSTPROC EVAL HNO ID: [id number] Author: Gladis Turpin MD Service: Anesthesiology Author Type: Anesthesiologist Type: Anesthesia Postprocedure Evaluation Filed: 10/29/2022 10:58 AM Note Text: POST ANESTHESIA EVALUATION NOTE : 1985 Procedure Summary Date: 10/29/22 Room / Location: [facility] Anesthesia Start: 0854 Anesthesia Stop: 1020 Procedure: [...] October 29, 2022 TIME: 10:57 AM CSN: [id number] Normal [facility] ANES PRE-OPon 10-29-2022 ANES PRE-OP HNO ID: [id number] Author: Gladis Turpin MD Service: Anesthesiology Author Type: Anesthesiologist Type: Anesthesia Preprocedure Evaluation Filed: 10/29/2022 8:01 AM Note Text: ANESTHESIOLOGY DAY OF SURGERY NOTE : 1985 Procedure Information Date/Time: 10/29/22829 Scheduled providers: Daren Dimas MD Procedure: SIGMOIDOSCOPY Location: [facility] Estimated body mass index is 25.82 kg/m? [...] and consent discussed: yes. Patient / Responsible Republican agrees to proceed: yes Patient / Surrogate [...] boxes Coloplast Tacho red flat wafer # 36515 - 1 box Coloplast Scotia red drainable pouches # 53765 - 1 box Ryan small barrier rings # 7805 - 1 tube stomahesive paste # 2650 - 1 box Coloplast Elastic barrier strips # 292240 - 1 bottle stomahesive powder # 83796 - 1 box adhesive remover wipes - [...] October 29, 2022 TIME: 8:01 AM CSN: [id number] Normal [facility] HISTORY PHYSICALon HISTORY PHYSICAL HNO ID: [id number] Author: KIRSTEN Ahumada Service: Anesthesiology Author Type: Physician Continuous Miner Operator Helper Type: HANDP Filed: 10/29/2022 7:30 AM Note [...] Prior to Admission medications as of 10/29/22 9931 Medication Sig Last Dose Taking ondansetron orally disintegrating (ZOFRAN ODT) 4 mg disintegrating tablet Take 1 tablet by mouth every 8 hours as needed for nausea/vomiting. loperamide (IMODIUM) 2 mg cap(s) Take 1 capsule by mouth three times daily. Miscellaneous Medical Supply Ileostomy supplies: - 1 Box Coloplast One piece Assura drainable pouch OR - 2 boxes Coloplast Scotia red flat wafer # 93446 - 1 box Coloplast Tacho red drainable pouches # 50456 - 1 box Swisher small barrier rings # 7805 - 1 tube stomahesive paste # 2650 - 1 box Coloplast Elastic barrier strips # 570768 - 1 bottle stomahesive powder # 94705 - 1 box adhesive remover wipes - [...] (more content not included)... Normal [facility] OPERATIVE NOon 10-29-2022 OPERATIVE NO HNO ID: [id number] Author: Daren Dimas MD Service: Gastroenterology Author Type: Physician Type: Operative Report Filed: 10/29/2022 10:30 AM Note Text: OPERATIVE/PROCEDURE REPORT LOG ID: [id number] Surgery/Procedure Date: Incision/Procedure Start Time: 9:46 AM Incision Close/Procedure End Time: 10:13 AM Surgeon(s)/Proceduralist(s) and Continuous Miner Operator Helper(s): Surgeon(s) and Role: * Daren Dimas MD [...] 29, 2022 TIME: 10:25 AM PAGER/CONTACT #: [phone] [facility] ANES POSTPROC EVALon 023 ANES POSTPROC EVAL HNO ID: [id number] Author: Regan Beauchamp MD Service: Anesthesiology Author Type: Physician Type: Anesthesia Postprocedure Evaluation Filed: 10/22/2022 10:51 AM Note Text: POST ANESTHESIA EVALUATION NOTE : 1985 Procedure Summary Date: 10/22/22 Room / Location: [facility] Anesthesia Start: 1005 Anesthesia Stop: 1032 Procedure: [...] October 22, 2022 TIME: 10:51 AM CSN: [id number] Normal [facility] ANES PRE-OPon 10-22-2022 ANES PRE-OP HNO ID: [id number] Author: Regan Beauchamp MD Service: Anesthesiology Author Type: Physician Type: Anesthesia Preprocedure Evaluation Filed: 10/22/2022 8:20 AM Note Text: ANESTHESIOLOGY DAY OF SURGERY NOTE : 1985 Procedure Information Date/Time: 10/22/22929 Scheduled providers: Daren Dimas MD Procedure: SIGMOIDOSCOPY Location: [facility] Estimated body mass index is 25.69 kg/m? [...] and consent discussed: yes. Patient / Responsible Republican agrees to proceed: yes Patient / Surrogate [...] drainable pouch OR - 2 boxes Coloplast Scotia red flat wafer # 58499 - 1 box Coloplast Scotia red drainable pouches # 63166 - 1 box Ryan small barrier rings # 7805 - 1 tube stomahesive paste # 2650 - 1 box Coloplast Elastic barrier strips # 276045 - 1 bottle stomahesive powder # 07676 - 1 box adhesive remover wipes - [...] October 22, 2022 TIME: 8:18 AM CSN: [id number] [facility] OPERATIVE NOon 10-22-2022 OPERATIVE NO HNO ID: [id number] Author: Daren Dimas MD Service: Gastroenterology Author Type: Physician Type: Operative Report Filed: 10/22/2022 10:31 AM Note Text: OPERATIVE/PROCEDURE REPORT LOG ID: [id number] Surgery/Procedure Date: Incision/Procedure Start Time: 10:12 AM Incision Close/Procedure End Time: 10:21 AM Surgeon(s)/Proceduralist(s) and Continuous Miner Operator Helper(s): Surgeon(s) and Role: * Daren Dimas MD [...] 22, 2022 TIME: 10:23 AM PAGER/CONTACT #: [phone] [facility] 10-15-2022 [facility] Telephone ([facility]) SAMEUNICE ([id number]) 1985 M Date Time Provider Department 10/15/22 COLLIN LE During your visit today, we recorded the [...] boxes Coloplast Tacho red flat wafer # 60304 - 1 box Coloplast Scotia red drainable pouches # 58787 - 1 box Ryan small barrier rings # 7805 - 1 tube stomahesive paste # 2650 - 1 box Coloplast Elastic barrier strips # 508687 - 1 bottle stomahesive powder # 69954 - 1 box adhesive remover wipes - [...] FLANAGAN MA on 10/22/22 Normal [facility] CT Abdomen / Pelvis w IV onl [...] JUÁREZ II, DO, MD Date: 10/06/2022 09:01 [facility] 10-02-2022 [facility] Telephone ([facility]) EUNICE VARGAS ([id number]) 1985 Date Time Provider Department 10/02/22 COLLIN [...] back with an update. Thank you. Matthew Gucci October 02, 2022 10:53 AM Allergies As [...] boxes Coloplast Tacho red flat wafer # 15091 - 1 box Coloplast Tacho red drainable pouches # 80899 - 1 box Ryan small barrier rings # 7805 - 1 tube stomahesive paste # 2650 - 1 box Coloplast Elastic barrier strips # 158514 - 1 bottle stomahesive powder # 99897 - 1 box adhesive remover wipes - [...] Encounter Status:Closed by MATTHEW DUCKWORTH on 10/03/22 [facility] ANES POSTPROC EVALon 023 ANES POSTPROC EVAL HNO ID: [id number] Author: Madi Medellin MD Service: Anesthesiology Author Type: Physician Type: Anesthesia Postprocedure Evaluation Filed: 09/26/2022 11:53 AM Note Text: POST ANESTHESIA EVALUATION NOTE : 1985 Procedure Summary Date: 09/26/22 Room / Location: [facility] Anesthesia Start: 917 Anesthesia Stop: 932 Procedure: SIGMOIDOSCOPY Diagnosis: Colonic inertia Scheduled Providers: Collin Le MD Responsible Provider: Madi Medellin MD Anesthesia Type: MAC ASA Status: 2 Anesthesia Type: MAC Last Vitals Vitals Value Taken Time BP 122/89 09/26/2253 Temp 36.5 ?C (97.7 ?F) 09/26/22 09 Pulse 74 09/26/22 0953 Resp 16 09/26/22 0953 SpO2 100 % 09/26/22952 Post Anesthesia Patient Status Patient Evaluation: PACU. [...] September 26, 2022 TIME: 11:53 AM CSN: [id number] [facility] ANES PRE-OPon 09-26-2022 ANES PRE-OP HNO ID: [id number] Author: Gladis Turpin MD Service: Anesthesiology Author Type: Anesthesiologist Type: Anesthesia Preprocedure Evaluation Filed: 09/26/2022 8:45 AM Note Text: ANESTHESIOLOGY DAY OF SURGERY NOTE : 1985 Procedure Information Date/Time: 09/26/22 0800 Scheduled providers: Coliln Le MD Procedure: SIGMOIDOSCOPY Location: [facility] Estimated body mass index is 25.69 kg/m? [...] and consent discussed: yes. Patient / Responsible Republican agrees to proceed: yes Patient / Surrogate [...] 0835 Pulse 81 09/26/22 0835 Resp 16 09/26/2235 Temp 36.8 ?C (98.2 ?F) 09/26/2235 SpO2 100 % 09/26/22 0835 Outpatient Medications [...] drainable pouch OR - 2 boxes Coloplast Scotia red flat wafer # 62206 - 1 box Coloplast Tacho red drainable pouches # 63284 - 1 box Ryan small barrier rings # 7805 - 1 tube stomahesive paste # 2650 - 1 box Coloplast Elastic barrier strips # 516354 - 1 bottle stomahesive powder # 53011 - 1 box adhesive remover wipes - [...] September 26, 2022 TIME: 8:45 AM CSN: [id number] Normal [facility] HISTORY PHYSICALon 3 HISTORY PHYSICAL HNO ID: [id number] Author: Alix Womack APRN.INTERNATIONAL RELATIONS PROFESSOR Service: Anesthesiology Author Type: Nurse Practitioner Type: [...] drainable pouch OR - 2 boxes Coloplast Scotia red flat wafer # 91579 - 1 box Coloplast Tacho red drainable pouches # 24706 - 1 box Ryan small barrier rings # 7805 - 1 tube stomahesive paste # 2650 - 1 box Coloplast Elastic barrier strips # 167205 - 1 bottle stomahesive powder # 39358 - 1 box adhesive remover wipes - [...] no history of chest pain, palpitations, CHF, OK, cardiac surgery or stents GI: see HPI [...] (more content not included)... Normal [facility] OPERATIVE NOon 09-26-2022 OPERATIVE NO HNO ID: [id number] Author: Collin Le MD Service: Colorectal Author Type: Physician Type: Operative Report Filed: 09/26/2022 9:34 AM Note Text: OPERATIVE/PROCEDURE REPORT LOG ID: [id number] Surgery/Procedure Date: Incision/Procedure Start Time: 9:25 AM Incision Close/Procedure End Time: 9:28 AM Surgeon(s)/Proceduralist(s) and Continuous Miner Operator Helper(s): Surgeon(s) and Role: * Aric Patino DO [...] 26, 2022 TIME: 9:32 AM PAGER/CONTACT #: [phone] [facility] ALLIED HEALTHon 09-16-2022 ALLIED HEALTH HNO ID: [id number] Author: RT Johnna(Lisa) Service: Radiology Author Type: [...] RT Johnna(R) September 16, 2022 10:31 AM [facility] XR COLON SINGLE CONTRASTon 0 09-16-2022 XR [...] Fluoroscopy was performed by the radiology physician's therapist's assistant. 1 minute 42 seconds of fluoroscopy [...] identified. IMPRESSION: Postoperative changes without apparent complications. Advertising Agency Manager: P[employer] Transcribe Date/Time: Sep 16 2022 12:41P Dictated by : TITUS SALDAÑA MD This examination was interpreted and the report reviewed and electronically signed by: TITUS SALDAÑA MD on Sep 16 2022 12:43PM EST [id number] Normal [facility] Lipid 1996 panelon 3 Cholesterol [Mass/Vol] 115 mg/dL <200 mg/dL [facility] Cholesterol in HDL [Mass/Vol] 68 mg/dL >39 mg/dL [facility] Cholesterol in LDL [Mass/Vol] 29 mg/dL <100 mg/dL [facility] Cholesterol in LDL/Cholesterol in HDL [Mass ratio] 0.43 {ratio} <2.54 [facility] Cholesterol in VLDL [Mass/Vol] 18 mg/dL <30 mg/dL [facility] Cholesterol non HDL [Mass/Vol] 47 mg/dL <130 mg/dL [facility] Cholesterol.total/Chol esterol in HDL [Mass ratio] 1.69 {ratio} <5.10 [facility] Fasting Time 12 hrs [facility] Triglyceride [Mass/Vol] 88 mg/dL <150 mg/dL [facility] CNOVon 08-19-2022 CNOV Office Visit (KARIE Clark) EUNICE VARGAS ([id number]) 1985 [place] Date Time Provider Department 08/19/22 11:00 AM COLLIN LE7 During your visit today, we recorded the following information about you: Pulse Blood pressure Weight Height 68/minute 134/80 74.8 kg 1.676 m Collin Le MD 08/19/2022 12:00 PM Signed Collin Le M.D. Colon AND Rectal Surgery [address] [facility], [address] [place] [address] SUBJECTIVE Eunice Vargas is a 36 year [...] drainable pouch OR - 2 boxes Coloplast Scotia red flat wafer # 13616 - 1 box Coloplast Scotia red drainable pouches # 76492 - 1 box Ryan small barrier rings # 7805 - 1 tube stomahesive paste # 2650 - 1 box Coloplast Elastic barrier strips # 008161 - 1 bottle stomahesive powder # 64649 - 1 box adhesive remover wipes - [...] (more content not included)... Normal [facility] Basic metabolic 2000 panelon 11-28-2021 Anion gap [Moles/Vol] 12 mmol/L 9 - 18 mmol/L [facility] Calcium [Mass/Vol] 9.0 mg/dL 8.5 - 10. 2 mg/dL [facility] Chloride [Moles/Vol] 102 mmol/L 97 - 10 5 mmol/L [facility] CO2 [Moles/Vol] 23 mmol/L 22 - 30 mmol/L [facility] Creatinine [Mass/Vol] 0.75 mg/dL 0.73 - 1.22 mg/dL [facility] Estimated Glomerular Filtration Rate 121 mL/min/1.73m >=60 mL/min/1.73 m [facility] Glucose [Mass/Vol] 87 mg/dL 74 - 99 mg/dL [facility] Potassium [Moles/Vol] 3.4 mmol/L Low 3.7 - 5.1 mmol/L [facility] Sodium [Moles/Vol] 137 mmol/L 136 - 144 mmol/L [facility] Urea nitrogen [Mass/Vol] 9 mg/dL 9 - 24 mg/dL [facility] CBC panel Auto (Bld)on 11-28 Erythrocyte distribution width (RBC) [Ratio] 15.5 % High 11.5 - 15.0 % [facility] Hematocrit (Bld) [Volume fraction] 39.2 % 39.0 - 51.0 % [facility] Hemoglobin (Bld) [Mass/Vol] 12.5 g/dL Low 13.0 - 17.0 g/dL [facility] MCH (RBC) [Entitic mass] 26.0 pg 26.0 - 34.0 pg [facility] MCHC (RBC) [Mass/Vol] 31.9 g/dL 30.5 - 36.0 g/dL [facility] MCV (RBC) [Entitic vol] 81.7 fL 80.0 - 100.0 fL [facility] Nucleated RBC (Bld) [#/Vol] 10*3/uL <0.01 k/uL [facility] Platelet mean volume (Bld) [Entitic vol] 8.2 fL Low 9.0 - 12.7 fL [facility] Platelets (Bld) [#/Vol] 570 10*3/uL High 150 - 400 k/uL [facility] RBC (Bld) [#/Vol] 4.80 10*6/uL 4.20 - 6.0 0 m/uL [facility] WBC (Bld) [#/Vol] 11.47 10*3/uL High 3.70 - 11.00 k/uL [facility] TYPE AND SCREEN,30 DAYon ABO O [facility] HIstorical Ab Scr Status Negative [facility] Rh Nom (Bld) Positive [facility] XR COLONIC TRANSIT IMAGE 3on 06-18-2021 IMPRESSION: Sitzmarks likely in the ascending colon and sigmoid. Stable prominently distended bowel loops within the abdomen. Advertising Agency Manager: [facility] Transcribe Date/Time: Jun 18 2021 8:28A Dictated by : FRANKI MILLER MD This examination was interpreted and the report reviewed and electronically signed by: FRANKI MILLER MD on Jun 18 2021 8:31AM [facility] DIVISION OF RADIOLOGY * * *Final Report* [...] bases are clear. DIVISION OF RADIOLOGY Provider, [facility] - 06/18/2021 * * *Final Report* * [...] prominently distended bowel loops within the abdomen. Advertising Agency Manager: JENIFFER Transcribe Date/Time: Jun 18 2021 8:28A Dictated by : FRANKI MILLER MD This examination was interpreted and the report reviewed and electronically signed by: FRANKI MILLER MD on Jun 18 2021 8:31AM EST [facility] XR COLONIC TRANSIT IMAGE 3Or dered By: Ccf Provider on 06-18-2021 [facility] XR COLONIC TRANSIT IMAGE 3on 06-16-2021 Radiology Study observation (narrative) [facility] XR COLONIC TRANSIT IMAGE 2on 06-14-2021 IMPRESSION: Sitzmarks as detailed in report. Advertising Agency Manager: JENIFFER Transcribe Date/Time: Jun 14 2021 5:14P Dictated by : MICHELET POTTER MD This examination was interpreted and the report reviewed and electronically signed by: MICHELET POTTER MD on Jun 14 2021 5:20PM [facility] DIVISION OF RADIOLOGY * * *Final Report* [...] the rectosigmoid colon.. [facility] * * *Final Report* [...] IMPRESSION IMPRESSION: Sitzmarks as detailed in report. Advertising Agency Manager: [employer] Transcribe Date/Time: Jun 14 2021 5:14P Dictated by : MICHELET POTTER MD This examination was interpreted and the report reviewed and electronically signed by: MICHELET POTTER MD on Jun 14 2021 5:20PM EST [facility] Radiology Study observation (narrative) [facility] XR COLONIC TRANSIT IMAGE 2Or dered By: Ccf Provider on 06-14-2021 [facility] Colon Study observatio n Nikki 06-12-2021 IMPRESSION: 1. Sitzmarks as described. 2. Diffuse colonic distention noting air is seen extending all the way to the rectum and as such may reflect ileus. Advertising Agency Manager: JENIFFER Transcribe Date/Time: Jun 12 2021 4:36P Dictated by : RODERICK HDZ MD This examination was interpreted and the report reviewed and electronically signed by: RODERICK HDZ MD on Jun 12 2021 4:39PM [facility] DIVISION OF RADIOLOGY * * *Final Report* [...] vertebral body present. DIVISION OF RADIOLOGY [facility] * * *Final Report* * [...] rectum and as such may reflect ileus. Advertising Agency Manager: JENIFFER Transcribe Date/Time: Jun 12 2021 4:36P Dictated by : RODERICK HDZ MD This examination was interpreted and the report reviewed and electronically signed by: RODERICK HDZ MD on Jun 12 2021 4:39PM EST [facility] Radiology Study observation (narrative) [facility] Colon Study observatio n USOrdered By: Ccf Provider on 06-12-2021 [facility] CBCOrdered By: Derek Juarez on 06-06-2021 Hematocrit (Bld) [Volume fraction] 37.0 % Low 40.0 - 52.0 % [facility] Work Phone: Hemoglobin.gastrointes tinal spec 1 Ql (Stl) 12.6 g/dL Low 13.0 - 18.0 g/dL [facility] Work Phone: Interpretation and review of laboratory results Abnormal [facility] Work Phone: MCH (RBC) [Entitic mass] 29.0 pg 26.0 - 34.0 pg [facility] Work Phone: MCHC (RBC) [Mass/Vol] 34.0 % 32.0 - 36.0 % [facility] Work Phone: MCV (RBC) [Entitic vol] 85.3 fL 80.0 - 98.0 fL [facility] Work Phone: Platelet distribution width (Bld) [Ratio] 13.1 % 11.5 - 14.5 % [facility] Work Phone: Platelet mean volume (Bld) [Entitic vol] 9.0 fL 7.4 - 10.4 fL [facility] Work Phone: Platelets (Bld) [#/Vol] 385 10*3/uL 140 - 440 10*3/uL [facility] Work Phone: RBC (Bld) [#/Vol] 4.34 10*6/uL Low 4.40 - 5.9 0 10*6/uL [facility] Work Phone: WBC (Bld) [#/Vol] 12.0 10*3/uL High 3.6 - 10.7 10*3/uL [facility] Work Phone: Test Performed by [facility], [address] [place] [address] [facility] Work Phone: [facility] Work Phone: Comp Metabolic Panelon 06-06 Calcium [Mass/Vol] 9.8 mg/dL Normal 8.4-10.4 [facility] Comment on above: Performed By: #### P HOS3, HEMOG, CMP3, MG3, TRIG3 #### [place] [address] [place], [place] ALP [Catalytic activity/Vol] 239 U/L High 38-126 [facility] Comment on above: Performed By: #### P HOS3, HEMOG, CMP3, MG3, TRIG3 #### [place] [address] [place], [place] ALT [Catalytic activity/Vol] 54 U/L High 0-49 [facility] Comment on above: Result Comment: The ALT test is performed by an updated assay method. Please note that the reference intervals have been changed and are now sex specific. Performed By: #### P HOS3, HEMOG, CMP3, MG3, TRIG3 #### [place] [address] [place], [place] Anion gap [Moles/Vol] 12 mmol/L Normal 3-13 [facility] Comment on above: Performed By: #### P HOS3, HEMOG, CMP3, MG3, TRIG3 #### [address] AST [Catalytic activity/Vol] 42 U/L Normal 15-46 [facility] Comment on above: Performed By: #### P HOS3, HEMOG, CMP3, MG3, TRIG3 #### [place] [address] [place], [place] Bilirubin [Mass/Vol] 0.8 mg/dL Normal 0.2-1.3 [facility] Comment on above: Performed By: #### P HOS3, HEMOG, CMP3, MG3, TRIG3 #### [facility] [address] [place], [place] CO2 [Moles/Vol] 24 mmol/L Normal 22-30 [facility] Comment on above: Performed By: #### P HOS3, HEMOG, CMP3, MG3, TRIG3 #### [facility] [address] [place], [place] Glucose [Mass/Vol] 81 mg/dL Normal 70-100 [facility] Comment on above: Performed By: #### P HOS3, HEMOG, CMP3, MG3, TRIG3 #### [facility] [address] [place], [place] Protein [Mass/Vol] 8.3 g/dL High 6.3-8.2 [facility] Comment on above: Performed By: #### P HOS3, HEMOG, CMP3, MG3, TRIG3 #### [facility] [address] [place], [place] Urea nitrogen [Mass/Vol] 26 mg/dL High 7-17 [facility] Comment on above: Performed By: #### P HOS3, HEMOG, CMP3, MG3, TRIG3 #### [facility] [address] [place], [place] eGFR OTHER > 90.0 Normal >60 [facility] Comment on above: Result Comment: KDIG O [...] P HOS3, HEMOG, CMP3, MG3, TRIG3 #### [facility] [address] [place], [place] Albumin [Mass/Vol] 4.2 g/dL Normal 3.5-5.0 [facility] Comment on above: Performed By: #### P HOS3, HEMOG, CMP3, MG3, TRIG3 #### [place] [address] [address] [place], [place] Chloride [Moles/Vol] 102 mmol/L Normal 98-107 [facility] Comment on above: Performed By: #### P HOS3, HEMOG, CMP3, MG3, TRIG3 #### [place] [address] [place], [place] Potassium [Moles/Vol] 3.9 mmol/L Normal 3.5-5.1 [facility] Comment on above: Performed By: #### P HOS3, HEMOG, CMP3, MG3, TRIG3 #### [place] [address] [address] [place], [place] Sodium [Moles/Vol] 138 mmol/L Normal 135-145 [facility] Comment on above: Performed By: #### P HOS3, HEMOG, CMP3, MG3, TRIG3 #### [place] [address] [address] [place], [place] Comp Metabolic PanelOrdered By: Derek Juarez on 06-06-2021 Creatinine [Mass/Vol] 0.91 mg/dL Normal 0.52-1.25 [facility] Work Phone: Comment on above: Performed By: #### P HOS3, HEMOG, CMP3, MG3, TRIG3 #### [place] [address] [address] [place], [place] GFR/1.73 sq M.predicted among blacks MDRD (S/P/Bld) [Vol rate/Area] mL/min/{1.73_m2} Normal >60 [facility] Work Phone: Comment on above: Performed By: #### P HOS3, HEMOG, CMP3, MG3, TRIG3 #### [employer] [address] [place] [phone] Comprehensive Metabolic Pane lOrdered By: Derek Juarez on 06-06-2021 Albumin [Mass/Vol] 4.2 g/dL 3.5 - 5.0 g/dL [facility] Work Phone: ALP (Bld) [Catalytic activity/Vol] 239 U/L High 38 - 126 U/L [facility] Work Phone: ALT [Catalytic activity/Vol] 54 U/L High 0 - 49 U/L [facility] Work Phone: Comment on above: The ALT test is perf ormed by an updated assay method. Please note that the reference intervals have been changed and are now sex specific. Anion gap [Moles/Vol] 12 mmol/L 3 - 13 mmol/L [facility] Work Phone: AST [Catalytic activity/Vol] 42 U/L 15 - 46 U/L [facility] Work Phone: Bilirubin [Mass/Vol] 0.8 mg/dL 0.2 - 1 .3 mg/dL [facility] Work Phone: Calcium [Mass/Vol] 9.8 mg/dL 8.4 - 10. 4 mg/dL [facility] Work Phone: Chloride [Moles/Vol] 102 mmol/L 98 - 10 7 mmol/L [facility] Work Phone: CO2 [Moles/Vol] 24 mmol/L 22 - 30 mmol/L [facility] Work Phone: EGFR IF NonAfrican Lithuanian >90.0 >60 mL/min [facility] Work Phone: Comment on above: KDIGO [...] 8.3 g/dL High 6.3 - 8.2 g/dL [facility] Work Phone: Glucose [Mass/Vol] 81 mg/dL 70 - 100 mg/dL [facility] Work Phone: Potassium [Moles/Vol] 3.9 mmol/L 3.5 - 5.1 mmol/L [facility] Work Phone: Sodium [Moles/Vol] 138 mmol/L 135 - 145 mmol/L [facility] Work Phone: Urea nitrogen (BldV) [Mass/Vol] 26 mg/dL High 7 - 17 mg/dL [facility] Work Phone: Hemogramon 06-06-2021 Erythrocyte distribution width (RBC) [Ratio] 13.1 % Normal 11.5-14.5 [facility] Comment on above: Performed By: #### P HOS3, HEMOG, CMP3, MG3, TRIG3 #### [facility] MVERSE [address] [address] Hematocrit (Bld) [Volume fraction] 37.0 % Low 40.0-52.0 [facility] Comment on above: Performed By: #### P HOS3, HEMOG, CMP3, MG3, TRIG3 #### [facility] MVERSE [address] [address] Hemoglobin (Bld) [Mass/Vol] 12.6 g/dL Low 13.0-18.0 [facility] Comment on above: Performed By: #### P HOS3, HEMOG, CMP3, MG3, TRIG3 #### [place] [address] [address] [place], [place] MCH (RBC) [Entitic mass] 29.0 pg Normal 26.0-34.0 [facility] Comment on above: Performed By: #### P HOS3, HEMOG, CMP3, MG3, TRIG3 #### [place] [address] [address] [place], [place] MCHC 34.0 % Normal 32.0-36.0 [facility] Comment on above: Performed By: #### P HOS3, HEMOG, CMP3, MG3, TRIG3 #### [place] [address] [place], [place] MCV (RBC) [Entitic vol] 85.3 fL Normal 80.0-98.0 [facility] Comment on above: Performed By: #### P HOS3, HEMOG, CMP3, MG3, TRIG3 #### [place] [address] [place], [place] Platelet mean volume (Bld) [Entitic vol] 9.0 fL Normal 7.4-10.4 [facility] Comment on above: Performed By: #### P HOS3, HEMOG, CMP3, MG3, TRIG3 #### [place] [address] [place], [place] Platelets (Bld) [#/Vol] 385 10*3/uL Normal 140-440 [facility] Comment on above: Performed By: #### P HOS3, HEMOG, CMP3, MG3, TRIG3 #### [address] RBC (Bld) [#/Vol] 4.34 10*6/uL Low 4.40-5.90 [facility] Comment on above: Performed By: #### P HOS3, HEMOG, CMP3, MG3, TRIG3 #### [address] WBC (Bld) [#/Vol] 12.0 10*3/uL High 3.6-10.7 [facility] Comment on above: Performed By: #### P HOS3, HEMOG, CMP3, MG3, TRIG3 #### [place] [address] [place] [address] Magnesiumon 06-06-2021 Magnesium [Mass/Vol] 2.2 mg/dL Normal 1.6-2.3 [facility] Comment on above: Performed By: #### P HOS3, HEMOG, CMP3, MG3, TRIG3 #### [place] [address] [place] [address] MagnesiumOrdered By: Derek Juarez on 06-06-2021 Magnesium [Mass/Vol] 2.2 mg/dL 1.6 - 2 .3 mg/dL [facility] Work Phone: No Panel InformationOrdered By: Derek Juarez on 06-06-2021 Interpretation and review of laboratory results Abnormal [facility] Work Phone: Test Performed by [facility], [address] [place] [address] [facility] Work Phone: [facility] Work Phone: Phosphoruson 06-06-2021 Phosphate [Mass/Vol] 5.4 mg/dL High 2.5-4.5 [facility] Comment on above: Performed By: #### P HOS3, HEMOG, CMP3, MG3, TRIG3 #### [place] [address] [place] [address] PhosphorusOrdered By: Derek Juarez on 06-06-2021 Phosphate [Mass/Vol] 5.4 mg/dL High 2.5 - 4 .5 mg/dL [facility] Work Phone: Prealbuminon 06-06-2021 Prealbumin [Mass/Vol] 19.1 mg/dL Normal 17.6-36.0 [facility] Comment on above: Performed By: #### P AB #### [place] [address] [place] [address] PrealbuminOrdered By: Derek Juarez on 06-06-2021 Prealbumin [Mass/Vol] 19.1 mg/dL 17.6 - 36.0 mg/dL [facility] Work Phone: Test Performed by [facility], [address] [place] [address] [facility] Work Phone: [facility] Work Phone: Triglycerideon 06-06-2021 Triglyceride [Mass/Vol] 92 mg/dL Normal <150 [facility] Comment on above: Performed By: #### P HOS3, HEMOG, CMP3, MG3, TRIG3 #### [facility] MVERSE [facility] [address] [place] [address] TriglycerideOrdered By: Monica Juarez on 06-06-2021 Triglyceride [Mass/Vol] 92 mg/dL <150 [facility] Work Phone: [facility] Surgical Pathology Depar tmenton 05-14-2021 [facility] Surgical Pathology Department Name EUNICE VARGAS Pathologist: SHADI HUMPHRIES M.D. Date of Procedure: 05/14/2021 Date Received: 05/15/2021 Date Reported 05/21/2021 Submitting Physician: BRENDA NELSON Location: [facility] Copy To/Referring/Attending: SEBASTIÁN GIBBONS Other External # [id number] FINAL DIAGNOSIS A. EXTENDED RIGHT SABIHA-COLECTOMY: --SEGMENT OF COLON WITH CONGESTION --TERMINAL ILEUM AND APPENDIX WITH NO SIGNIFICANT PATHOLOGICAL FINDINGS --MULTIPLE BENIGN LYMPH NODES Electronically Signed Out By SHADI HUMPHRIES M.D./[facility] By the signature on this report, the individual or group listed as making the Final Interpretation/Diagnosis certifies that they have reviewed this case. Clinical History: transverse colon volvulus Specimens Submitted As: A: EXTENDED RIGHT SABIHA-COLECTOMY Other Case Numbers [id number] Gross Description: A: Received in formalin, labeled [...] are not identified. Photographs have been taken. Carbon [employer]inder sections are submitted in 6 cassettes AAA Summary of Cassettes: Specimen Label Site A 1-3 clearance representative sections of the dilated ischemic bowel 4 clearance representative section of uninvolved right colon 5 clearance representative section of uninvolved cecum 6 clearance representative section of uninvolved terminal ileum, and small bowel 7 clearance representative sections of appendix 8 2 polyps 9 4 possible lymph nodes 10 3 possible lymph nodes aaa/05/16/2021 [facility] Department of Pathology [id number] [place] [address] Normal [facility] Comment on above: Performed By: #### U [facility] #### [facility] Surgical Pathology Department [address] [place] [address] XR LUMBAR 2V AP/LATon 2019 XR LUMBAR [...] file room for report to be called Advertising Agency Manager: [facility] Transcribe Date/Time: Dec 31 2019 8:13A Dictated by : ERENDIRA CROFT MD This examination was interpreted and the report reviewed and electronically signed by: ERENDIRA CROFT MD on Dec 31 2019 8:41AM EST Normal [facility] XR LUMBAR 2V AP/LATon 2019 XR [...] fixation. Intact hardware and preserved anatomic alignment. Advertising Agency Manager: [facility] Transcribe Date/Time: Sep 12 2019 4:19A Dictated by : SHERRY ZULETA MD This examination was interpreted and the report reviewed and electronically signed by: SHERRY ZULETA MD on Sep 12 2019 4:26AM EST Normal [facility] CT LUMBAR SPINE WO IVCONon 1 09-19-2018 CT LUMBAR SPINE WO IVCON * * *Final Report* * * DATE OF EXAM: Jul 19 2019 10:42AM [facility] 0508 - CT LUMBAR SPINE WO [...] lumbar interbody fusion with pedicle screw fixation Advertising Agency Manager: JENIFFER Transcribe Date/Time: Jul 19 2019 10:48A Dictated by : FLORENCE FERGUSON MD This examination was interpreted and the report reviewed and electronically signed by: FLORENCE FERGUSON MD on Jul 19 2019 12:54PM EST Normal [facility] Activated PTTon 07-06-2019 aPTT Coag (Bld) [Time] 28.1 s Normal 23.0-32.4 [facility] Comment on above: Result Comment: Unfr [...] laboratory APTT reagent in use throughout the [facility]. Performed By: #### A PTT #### [place] [address] Basic Panelon 07-06-2019 Creatinine [Mass/Vol] 0.90 mg/dL Normal 0.67-1.17 [facility] Comment on above: Performed By: #### P 8 #### [facility] [address] [place], [place] [address] Anion gap [Moles/Vol] 12 mmol/L Normal 8-16 [facility] Comment on above: Performed By: #### P 8 #### [facility] [address] [place], [place] [address] CO2 [Moles/Vol] 22 mmol/L Normal 21-32 [facility] Comment on above: Performed By: #### P 8 #### [facility] [address] [place], [place] [address] Urea nitrogen [Mass/Vol] 14 mg/dL Normal 7-18 [facility] Comment on above: Performed By: #### P 8 #### [facility] [address] [place], [place] [address] Calcium [Mass/Vol] 9.2 mg/dL Normal 8.5-10.1 [facility] Comment on above: Performed By: #### P 8 #### [facility] [address] [place], [place] [address] Glucose [Mass/Vol] 94 mg/dL Normal 70-99 [facility] Comment on above: Performed By: #### P 8 #### [facility] [address] [place], [place] [address] Chloride [Moles/Vol] 109 mmol/L High 98-107 [facility] Comment on above: Performed By: #### P 8 #### [facility] [address] [place], [place] [address] Potassium [Moles/Vol] 4.4 mmol/L Normal 3.5-5.1 [facility] Comment on above: Performed By: #### P 8 #### [facility] [address] [place], [place] [address] Sodium [Moles/Vol] 139 mmol/L Normal 136-145 [facility] Comment on above: Performed By: #### P 8 #### [facility] [address] [place], [place] [address] Hemogramon 07-06-2019 Erythrocyte distribution width (RBC) [Ratio] 12.8 % Normal 11.6-14.4 [facility] Comment on above: Performed By: #### C BC1 #### [facility] [address] [place], [place] [address] Hematocrit (Bld) [Volume fraction] 45.3 % Normal 40.1-51.0 [facility] Comment on above: Performed By: #### C BC1 #### [facility] [address] [place], [place] [address] Hemoglobin (Bld) [Mass/Vol] 15.5 g/dL Normal 13.7-17.5 [facility] Comment on above: Performed By: #### C BC1 #### [facility] [address] [place] [address] MCH (RBC) [Entitic mass] 29.9 pg Normal 25.7-32.2 [facility] Comment on above: Performed By: #### C BC1 #### [facility] 1 [place] [address] MCHC (RBC) [Mass/Vol] 34.2 % Normal 32.3-36.5 [facility] Comment on above: Performed By: #### C BC1 #### [facility] 1 [place] [address] MCV (RBC) [Entitic vol] 87.3 fL Normal 83.2-95.6 [facility] Comment on above: Performed By: #### C BC1 #### [facility] 1 [place], [place] [address] Platelet mean volume (Bld) [Entitic vol] 10.6 fL Normal 8.7-12.0 [facility] Comment on above: Performed By: #### C BC1 #### [facility] 1 [place], [place] [address] Platelets (Bld) [#/Vol] 315 thou/cmm Normal 141-365 [facility] Comment on above: Performed By: #### C BC1 #### [facility] 1 [place], [place] [address] RBC (Bld) [#/Vol] 5.19 mil/cmm Normal 4.63-6.08 [facility] Comment on above: Performed By: #### C BC1 #### [facility] 1 [place], [place] [address] RDW SD 40.2 fl Normal 36.1-45.8 [facility] Comment on above: Performed By: #### C BC1 #### [facility] 1 [place], [place] [address] WBC (Bld) [#/Vol] 5.91 thou/cmm Normal 4.23-9.07 [facility] Comment on above: Performed By: #### C BC1 #### [facility] 1 [place], [place] [address] MDRD GFRon 07-06-2019 GFR/1.73 sq M predicted among non-blacks MDRD (S/P/Bld) [Vol rate/Area] mL/min/{1.73_m2} Normal >60mL/min/1 .73m2 [facility] Comment on above: Result Comment: If t he patient is , multiply the result by 1.210. Performed By: #### G FR #### [facility] 1 [place] [id number] Protimeon 07-06-2019 INR Coag (PPP) [Relative time] 0.97 {INR} Normal 0.90-1.30 [facility] Comment on above: Result Comment: Dali min K Antagonist (VKA) Therapeutic Range: INR 2 to 3 (Target INR of 2.5) Note: For patients treated with VKA drugs, such as warfarin, the [employer] 2012 Guideline recommends [...] to 3.5 target INR of 3). Emigdio HANEY, et al. Chest 2012; 141:7S-47S Tyler HUBBARD et al. [facility] 2017; 70: 252-289 Performed By: #### P T #### [facility] 1 [place] [address] PT Coag (PPP) [Time] 10.5 s Normal 9.7-13.0 [facility] Comment on above: Performed By: #### P T #### [place] [address] Type and Screenon 07-06-2019 ABO group Nom (Bld) O Normal [facility] Comment on above: Performed By: #### T &S #### [place] [address] Comment PAT specimen Normal [facility] Comment on above: Performed By: #### T &S #### [place] [address] RH Type Positive Normal [facility] Comment on above: Performed By: #### T &S #### [place] [address] Urinalysis Routineon 019 Appearance (U) CLEAR Normal [facility] Comment on above: Performed By: #### U RIN2 #### [place] [address] Bilirubin (U) [Mass/Vol] Negative Normal Negative [facility] Comment on above: Performed By: #### U RIN2 #### [place] [address] Color (U) YELLOW Normal [facility] Comment on above: Performed By: #### U RIN2 #### [place] [address] Glucose Ql (U) Negative Normal Negative [facility] Comment on above: Performed By: #### U RIN2 #### [place] [address] Hemoglobin,Urine Negative Normal Negative [facility] Comment on above: Performed By: #### U RIN2 #### [place] [address] Ketone Urine Negative Normal Negative [facility] Comment on above: Performed By: #### U RIN2 #### [facility] 1 [place] [address] Leukocytes Esterase Negative Normal Negative [facility] Comment on above: Performed By: #### U RIN2 #### [facility] 1 [place] [address] Nitrites Urine Negative Normal Negative [facility] Comment on above: Performed By: #### U RIN2 #### [facility] 1 [place] [address] pH (U) 6.0 [pH] Normal 5.0-8.0 [facility] Comment on above: Performed By: #### U RIN2 #### [place] [address] Protein (U) [Mass/Vol] Negative Normal Negative [facility] Comment on above: Performed By: #### U RIN2 #### [place] [address] Specific [place], Ur 1.019 Normal 1.005-1.030 [facility] Comment on above: Performed By: #### U RIN2 #### [place] [address] Urobilinogen,Ur 0.2 EU/dL Normal 0.2-1.0 [facility] Comment on above: Performed By: #### U RIN2 #### [place] [address] Bacteria LM.HPF (Urine sed) [#/Area] NONE Normal None [facility] Comment on above: Performed By: #### U RIN2 #### [facility] 1 [place] [address] Ep Cells Urine 0.1 /hpf Normal 0.0-5.0 [facility] Comment on above: Performed By: #### U RIN2 #### [place] [address] Hyaline Cast 0.0 /lpf Normal 0.0-1.0 [facility] Comment on above: Performed By: #### U RIN2 #### [facility] 1 [place], [place] [address] RBC LM.HPF (Urine sed) [#/Area] 0.2 /[HPF] Normal 0.0-5.0 [facility] Comment on above: Performed By: #### U RIN2 #### [facility] 1 [place], [place] [address] WBC LM.HPF (Urine sed) [#/Area] 0.6 /[HPF] Normal 0.0-5.0 [facility] Comment on above: Performed By: #### U RIN2 #### [facility] 1 [place], [place] [address] XR CHEST 2V FRONTAL/LATon XR CHEST 2V [...] partially imaged on the radiograph of 06/09/2019. Advertising Agency Manager: PSCB Transcribe Date/Time: Jul 07 2019 10:56A Dictated by : ANALISA ELY MD This examination was interpreted and the report reviewed and electronically signed by: ANALISA ELY MD on Jul 07 2019 10:59AM EST Normal [facility] XR LUMBAR 4V AP/LAT/ FLEX/EX Ton [...] Dedicated chest x-ray recommended to further evaluate. Advertising Agency Manager: JENIFFER Transcribe Date/Time: Jun 15 2019 11:39A Dictated by : ALY HERNANDES MD This examination was interpreted and the report reviewed and electronically signed by: ALY HERNANDES MD on Jun 13 2019 6:55PM EST This document has been addended by: ALY HERNANDES MD on Jun 15 2019 11:40AM EST Normal [facility] MRI LUMBAR SPINE WO IVCONon 06-03-2019 [...] and assume there are 5 lumbar-type vertebrae. Advertising Agency Manager: JENIFFER Transcribe Date/Time: Jun 03 2019 7:43A Dictated by : EMMA CALDERON MD This examination was interpreted and the report reviewed and electronically signed by: EMMA CALDERON MD on Jun 03 2019 7:57AM EST Normal [facility] Vital Signs Date Time Vital Sign Value Performing Clinician Marc busby 04-26-2025 11:12-0400 Body mass index (BMI) [Ratio] 30.49 kg/m2 Henrry Haider PA-C Work Phone: [facility] 04-26-2025 11:12-040 Body temperature 98.29 [degF] Henrry Haider PA-C Work Phone: [facility] 04-26-2025 11:12-040 Body weight 85.7 kg Henrry Haider PA-C Work Phone: [facility] 04-26-2025 11:12-0400 Diastolic blood pressure 82 mm[Hg] Henrry Enmaaugh PA-C Work Phone: [facility] 04-26-2025 11:12-0400 Heart rate 117 /min Henrry Enmaaugh PA-C Work Phone: [facility] 04-26-2025 11:12-0400 Respiratory rate 16 /min Henrry nEmaaugh PA-C Work Phone: [facility] 04-26-2025 11:12-0400 SaO2% (BldA) [Mass fraction] 98 % Henrry Enmaaugh PA-C Work Phone: [facility] 04-26-2025 11:12-0400 Systolic blood pressure 112 mm[Hg] Henrry Enmaaugh PA-C Work Phone: [facility] 04-01-2025 13:30-0400 Body temperature 97.5 [degF] Jesus Raza METAPHYSICIAN-C Work Phone: [facility] 04-01-2025 13:30-0400 Diastolic blood pressure 88 mm[Hg] Jesus Raza METAPHYSICIAN-C Work Phone: [facility] 04-01-2025 13:30-0400 Heart rate 102 /min Jesus Raza METAPHYSICIAN-C Work Phone: [facility] 04-01-2025 13:30-0400 Respiratory rate 16 /min Jesus Raza METAPHYSICIAN-C Work Phone: [facility] 04-01-2025 13:30-0400 SaO2% (BldA) [Mass fraction] 96 % Jesus Raza METAPHYSICIAN-C Work Phone: [facility] 04-01-2025 13:30-0400 Systolic blood pressure 122 mm[Hg] Jesus Raza METAPHYSICIAN-C Work Phone: [facility] 04-01-2025 12:14-0400 Body height 167.64 cm Jesus Raza METAPHYSICIAN-C Work Phone: [facility] 04-01-2025 12:14-0400 Body mass index (BMI) [Ratio] 30.9 kg/m2 Jesus Raza METAPHYSICIANPeteC Work Phone: [facility] 04-01-2025 12:14-0400 Body weight 87 kg Jesus DIALLOC Work Phone: [facility] 12-22-2024 08:00-0400 Body weight 85.38 kg Mallory Mckeon MD Work Phone: [facility] 12-22-2024 08:00-0400 Diastolic blood pressure 85 mm[Hg] Mallory Mckeon MD Work Phone: [facility] 12-22-2024 08:00-0400 Heart rate 60 /min Mallory Mckeon MD Work Phone: [facility] 12-22-2024 08:00-0400 Respiratory rate 16 /min Mallory Mckeon MD Work Phone: [facility] 12-22-2024 08:00-0400 SaO2% (BldA) [Mass fraction] 97 % Mallory Mckeon MD Work Phone: [facility] 12-22-2024 08:00-0400 Systolic blood pressure 124 mm[Hg] Mallory Mckeon MD Work Phone: [facility] 07-15-2024 08:16-0500 Body mass index (BMI) [Ratio] 30 kg/m2 Madi Barfield MD Work Phone: [facility] 07-15-2024 08:16-0500 Body temperature 97.11 [degF] Madi Barfield MD Work Phone: [facility] 07-15-2024 08:16-0500 Body weight 84.3 kg Madi Barfield MD Work Phone: [facility] 07-15-2024 08:16-0500 Diastolic blood pressure 74 mm[Hg] Madi Barfield MD Work Phone: [facility] 07-15-2024 08:16-0500 Heart rate 67 /min Madi Barfield MD Work Phone: [facility] 07-15-2024 08:16-0500 Respiratory rate 20 /min Madi Barfield MD Work Phone: [facility] 07-15-2024 08:16-0500 SaO2% (BldA) [Mass fraction] 99 % Madi Barfield MD Work Phone: [facility] 07-15-2024 08:16-0500 Systolic blood pressure 111 mm[Hg] Madi Barfield MD Work Phone: [facility] 04-20-2024 07:53-0400 Body mass index (BMI) [Ratio] 29.05 kg/m2 Jesus Raza APRN.INTERNATIONAL RELATIONS PROFESSOR Work Phone: [facility] 04-20-2024 07:53-0400 Body weight 81.65 kg Jesus Raza APRN.INTERNATIONAL RELATIONS PROFESSOR Work Phone: [facility] 04-20-2024 07:53-0400 Diastolic blood pressure 82 mm[Hg] Jesus Raza AIR CONDITIONING INSTALLER SUPERVISOR.INTERNATIONAL RELATIONS PROFESSOR Work Phone: [facility] 04-20-2024 07:53-0400 Heart rate 73 /min Jesus Raza APRN.INTERNATIONAL RELATIONS PROFESSOR Work Phone: [facility] 04-20-2024 07:53-0400 Respiratory rate 14 /min Jesus Raza APRN.INTERNATIONAL RELATIONS PROFESSOR Work Phone: [facility] 04-20-2024 07:53-0400 Systolic blood pressure 124 mm[Hg] Jesus Raza AIR CONDITIONING INSTALLER SUPERVISOR.INTERNATIONAL RELATIONS PROFESSOR Work Phone: [facility] 09-26-2023 09:04-0500 Body weight 80.29 kg Jesus Raza APRN.INTERNATIONAL RELATIONS PROFESSOR Work Phone: [facility] 09-26-2023 09:04-0500 Diastolic blood pressure 74 mm[Hg] Jesus Raza APRN.INTERNATIONAL RELATIONS PROFESSOR Work Phone: [facility] 09-26-2023 09:04-0500 Heart rate 80 /min Jesus Mary Louoble AIR CONDITIONING INSTALLER SUPERVISOR.INTERNATIONAL RELATIONS PROFESSOR Work Phone: [facility] 09-26-2023 09:04-0500 Respiratory rate 14 /min Jesus Knoble AIR CONDITIONING INSTALLER SUPERVISOR.INTERNATIONAL RELATIONS PROFESSOR Work Phone: [facility] 09-26-2023 09:04-0500 Systolic blood pressure 112 mm[Hg] Jesus Knoble AIR CONDITIONING INSTALLER SUPERVISOR.INTERNATIONAL RELATIONS PROFESSOR Work Phone: [facility] 07-17-2023 16:49-0500 Body temperature 98.01 [degF] Santa Rascon AIR CONDITIONING INSTALLER SUPERVISOR.INTERNATIONAL RELATIONS PROFESSOR Work Phone: [facility] 07-17-2023 16:49-0500 Body weight 81.01 kg Santa Rascon AIR CONDITIONING INSTALLER SUPERVISOR.INTERNATIONAL RELATIONS PROFESSOR Work Phone: [facility] 07-17-2023 16:49-0500 Diastolic blood pressure 80 mm[Hg] Santa Rascon AIR CONDITIONING INSTALLER SUPERVISOR.INTERNATIONAL RELATIONS PROFESSOR Work Phone: [facility] 07-17-2023 16:49-0500 Heart rate 85 /min Santa Rascon AIR CONDITIONING INSTALLER SUPERVISOR.INTERNATIONAL RELATIONS PROFESSOR Work Phone: [facility] 07-17-2023 16:49-0500 Respiratory rate 1 /min Santa Rascon AIR CONDITIONING INSTALLER SUPERVISOR.INTERNATIONAL RELATIONS PROFESSOR Work Phone: [facility] 07-17-2023 16:49-0500 SaO2% (BldA) [Mass fraction] 97 % Santa Rascon AIR CONDITIONING INSTALLER SUPERVISOR.INTERNATIONAL RELATIONS PROFESSOR Work Phone: [facility] 07-17-2023 16:49-0500 Systolic blood pressure 118 mm[Hg] Santa Rascon AIR CONDITIONING INSTALLER SUPERVISOR.INTERNATIONAL RELATIONS PROFESSOR Work Phone: [facility] 04-22-2023 10:41-0400 Body height 167.6 cm Rolando Jabier DO Work Phone: [facility] 04-22-2023 10:41-0400 Body weight 77.56 kg Rolando Jabier DO Work Phone: [facility] 04-22-2023 10:41-0400 Diastolic blood pressure 92 mm[Hg] Rolando Jabier DO Work Phone: [facility] 04-22-2023 10:41-0400 Heart rate 66 /min Rolando Jabier DO Work Phone: [facility] 04-22-2023 10:41-0400 SaO2% (BldA) [Mass fraction] 99 % Rolando Jabier DO Work Phone: [facility] 04-22-2023 10:41-0400 Systolic blood pressure 135 mm[Hg] Rolando Jabier DO Work Phone: [facility] 03-18-2023 13:09-0400 Body height 167.6 cm Rolando Jabier DO Work Phone: [facility] 03-18-2023 13:09-0400 Body weight 77.56 kg Rolando Jabier DO Work Phone: [facility] 03-18-2023 13:09-0400 Diastolic blood pressure 70 mm[Hg] Rolando Jabier DO Work Phone: [facility] 03-18-2023 13:09-0400 Heart rate 77 /min Rolando Jabier DO Work Phone: [facility] 03-18-2023 13:09-0400 Respiratory rate 16 /min Rolando Jabier DO Work Phone: [facility] 03-18-2023 13:09-0400 SaO2% (BldA) [Mass fraction] 99 % Rolando Jabier DO Work Phone: [facility] 03-18-2023 13:09-0400 Systolic blood pressure 123 mm[Hg] Rolando Jabier DO Work Phone: [facility] 03-13-2023 12:05-0400 Body temperature 98.49 [degF] Krislyn Aberegg PA Work Phone: [facility] 03-13-2023 12:05-0400 Body weight 77.75 kg Krislyn Aberegg PA Work Phone: [facility] 03-13-2023 12:05-0400 Diastolic blood pressure 84 mm[Hg] Krislyn Aberegg PA Work Phone: [facility] 03-13-2023 12:05-0400 Heart rate 88 /min Krislyn Aberegg PA Work Phone: [facility] 03-13-2023 12:05-0400 Respiratory rate 18 /min Krislyn Aberegg PA Work Phone: [facility] 03-13-2023 12:05-0400 SaO2% (BldA) [Mass fraction] 98 % Krislyn Aberegg PA Work Phone: [facility] 03-13-2023 12:05-0400 Systolic blood pressure 130 mm[Hg] Krislyn Aberegg PA Work Phone: [facility] 12-11-2022 09:20-0400 Body height 167.6 cm Collin Le MD Work Phone: [facility] 12-11-2022 09:20-0400 Body weight 71.67 kg Collin Le MD Work Phone: [facility] 12-11-2022 09:20-0400 Diastolic blood pressure 81 mm[Hg] Collin Le MD Work Phone: [facility] 12-11-2022 09:20-0400 Heart rate 69 /min Collin Le MD Work Phone: [facility] 12-11-2022 09:20-0400 Systolic blood pressure 123 mm[Hg] Collin Le MD Work Phone: [facility] 11-21-2022 10:02-0400 Body height 167.6 cm Pst 1 [facility] 11-21-2022 10:02-0400 Body temperature 97.9 [degF] Pst 1 [facility] 11-21-2022 10:02-0400 Body weight 74.84 kg Pst 1 [facility] 11-21-2022 10:02-0400 Diastolic blood pressure 73 mm[Hg] Pst 1 [facility] 11-21-2022 10:02-0400 Heart rate 70 /min Pst 1 [facility] 11-21-2022 10:02-0400 Respiratory rate 16 /min Pst 1 [facility] 11-21-2022 10:02-0400 SaO2% (BldA) [Mass fraction] 99 % Pst 1 [facility] 11-21-2022 10:02-0400 Systolic blood pressure 110 mm[Hg] Pst 1 [facility] 10-29-2022 10:30-0400 Diastolic blood pressure 87 mm[Hg] Draen Dimas MD Work Phone: [facility] 10-29-2022 10:30-0400 Heart rate 85 /min Daren Dimas MD Work Phone: [facility] 10-29-2022 10:30-0400 Respiratory rate 16 /min Daren Dimas MD Work Phone: [facility] 10-29-2022 10:30-0400 SaO2% (BldA) [Mass fraction] 98 % Daren Dimas MD Work Phone: [facility] 10-29-2022 10:30-0400 Systolic blood pressure 120 mm[Hg] Daren Dimas MD Work Phone: [facility] 10-29-2022 10:19-0400 Body temperature 98.1 [degF] Daren Dimas MD Work Phone: [facility] 10-29-2022 07:30-0400 Body height 167.6 cm Daren Dimas MD Work Phone: [facility] 10-29-2022 07:30-0400 Body weight 72.58 kg Daren Dimas MD Work Phone: [facility] 10-22-2022 10:43-0400 Diastolic blood pressure 86 mm[Hg] Daren Dimas MD Work Phone: [facility] 10-22-2022 10:43-0400 Heart rate 71 /min Daren Dimas MD Work Phone: [facility] 10-22-2022 10:43-0400 Respiratory rate 14 /min Daren Dimas MD Work Phone: [facility] 10-22-2022 10:43-0400 SaO2% (BldA) [Mass fraction] 100 % Daren Dimas MD Work Phone: [facility] 10-22-2022 10:43-0400 Systolic blood pressure 115 mm[Hg] Daren Dimas MD Work Phone: [facility] 10-22-2022 10:31-0400 Body temperature 96.8 [degF] Daren Dimas MD Work Phone: [facility] 09-26-2022 09:53-0500 Diastolic blood pressure 89 mm[Hg] Collin Le MD Work Phone: [facility] 09-26-2022 09:53-0500 Heart rate 74 /min Collin Le MD Work Phone: [facility] 09-26-2022 09:53-0500 Respiratory rate 16 /min Collin Le MD Work Phone: [facility] 09-26-2022 09:53-0500 SaO2% (BldA) [Mass fraction] 100 % Collin Le MD Work Phone: [facility] 09-26-2022 09:53-0500 Systolic blood pressure 122 mm[Hg] Collin Le MD Work Phone: [facility] 09-26-2022 09:33-0500 Body temperature 97.7 [degF] Collin Le MD Work Phone: [facility] 09-26-2022 08:35-0500 Body height 170.2 cm Collin Le MD Work Phone: [facility] 09-26-2022 08:35-0500 Body weight 74.39 kg Collin Le MD Work Phone: [facility] 08-22-2022 08:53-0500 Body height 170.2 cm Cassie Richardson MD Work Phone: [facility] 08-22-2022 08:53-0500 Body temperature 97.11 [degF] Cassie Richardson MD Work Phone: [facility] 08-22-2022 08:53-0500 Body weight 76.2 kg Cassie Richardson MD Work Phone: [facility] 08-22-2022 08:53-0500 Diastolic blood pressure 68 mm[Hg] Cassie Richardson MD Work Phone: [facility] 08-22-2022 08:53-0500 Heart rate 65 /min Cassie Richardson MD Work Phone: [facility] 08-22-2022 08:53-0500 SaO2% (BldA) [Mass fraction] 94 % Cassie Richardson MD Work Phone: [facility] 08-22-2022 08:53-0500 Systolic blood pressure 106 mm[Hg] Cassie Richardson MD Work Phone: [facility] 08-19-2022 10:54-0500 Body height 167.6 cm Collin Le MD Work Phone: [facility] 08-19-2022 10:54-0500 Body weight 74.84 kg Collin Le MD Work Phone: [facility] 08-19-2022 10:54-0500 Diastolic blood pressure 80 mm[Hg] Collin Le MD Work Phone: [facility] 08-19-2022 10:54-0500 Heart rate 68 /min Collin Le MD Work Phone: [facility] 08-19-2022 10:54-0500 Systolic blood pressure 134 mm[Hg] Collin Le MD Work Phone: [facility] 03-07-2022 07:50-0400 Body height 170.2 cm Simone Becerra MD Work Phone: [facility] 03-07-2022 07:50-0400 Body weight 71.71 kg Simone Becerra MD Work Phone: [facility] 03-07-2022 07:50-0400 Diastolic blood pressure 75 mm[Hg] Simone Becerra MD Work Phone: [facility] 03-07-2022 07:50-0400 Heart rate 59 /min Simone Becerra MD Work Phone: [facility] 03-07-2022 07:50-0400 Systolic blood pressure 120 mm[Hg] Simone Becerra MD Work Phone: [facility] 01-08-2022 10:24-0400 Body temperature 99.39 [degF] Lacey Fortune NEON GLASS BLOWER Work Phone: [facility] 01-08-2022 10:24-0400 Diastolic blood pressure 60 mm[Hg] Lacey Fortune NEON [employer]OWER Work Phone: [facility] 01-08-2022 10:24-0400 Heart rate 67 /min Lacey Fortune NEON [employer]OWER Work Phone: [facility] 01-08-2022 10:24-0400 Respiratory rate 18 /min Lacey Fortune NEON [employer]ASS BLOWER Work Phone: [facility] 01-08-2022 10:24-0400 SaO2% (BldA) [Mass fraction] 98 % Lacey Fortune NEON GLASS BLOWER Work Phone: [facility] 01-08-2022 10:24-0400 Systolic blood pressure 102 mm[Hg] Lacey Fortune NEON [employer]ASS BLOWER Work Phone: [facility] 01-01-2022 12:04-0400 Body temperature 99 [degF] Maile Caruso RN Work Phone: [facility] 01-01-2022 12:04-0400 Diastolic blood pressure 74 mm[Hg] Maile Caruso RN Work Phone: [facility] 01-01-2022 12:04-0400 Heart rate 86 /min Maile Caruso RN Work Phone: [facility] 01-01-2022 12:04-0400 Respiratory rate 16 /min Maile Caruso RN Work Phone: [facility] 01-01-2022 12:04-0400 SaO2% (BldA) [Mass fraction] 97 % Maile Caruso RN Work Phone: [facility] 01-01-2022 12:04-0400 Systolic blood pressure 118 mm[Hg] Maile Caruso RN Work Phone: [facility] 12-31-2021 09:16-0400 Body height 170.2 cm Collin Le MD Work Phone: [facility] 12-31-2021 09:16-0400 Body weight 63.96 kg Collin Le MD Work Phone: [facility] 12-31-2021 09:16-0400 Diastolic blood pressure 74 mm[Hg] Collin Le MD Work Phone: [facility] 12-31-2021 09:16-0400 Heart rate 98 /min Collin Le MD Work Phone: [facility] 12-31-2021 09:16-0400 Systolic blood pressure 111 mm[Hg] Collin Le MD Work Phone: [facility] 12-28-2021 09:08-0400 Body temperature 98.6 [degF] Maile Caruso RN Work Phone: [facility] 12-28-2021 09:08-0400 Diastolic blood pressure 78 mm[Hg] Maile Caruso RN Work Phone: [facility] 12-28-2021 09:08-0400 Heart rate 80 /min Maile Caruso RN Work Phone: [facility] 12-28-2021 09:08-0400 Respiratory rate 16 /min Maile Caruso RN Work Phone: [facility] 12-28-2021 09:08-0400 SaO2% (BldA) [Mass fraction] 98 % Maile Caruso RN Work Phone: [facility] 12-28-2021 09:08-0400 Systolic blood pressure 114 mm[Hg] Maile Caruso RN Work Phone: [facility] 12-24-2021 11:15-0400 Body temperature 98.4 [degF] Maile Caruso RN Work Phone: [facility] 12-24-2021 11:15-0400 Body weight 65.32 kg Maile Caruso RN Work Phone: [facility] 12-24-2021 11:15-0400 Diastolic blood pressure 68 mm[Hg] Maile Caruso RN Work Phone: [facility] 12-24-2021 11:15-0400 Heart rate 74 /min Maile Caruso RN Work Phone: [facility] 12-24-2021 11:15-0400 Respiratory rate 16 /min Maile Caruso RN Work Phone: [facility] 12-24-2021 11:15-0400 SaO2% (BldA) [Mass fraction] 98 % Maile Caruso RN Work Phone: [facility] 12-24-2021 11:15-0400 Systolic blood pressure 122 mm[Hg] Maile Caruso RN Work Phone: [facility] 12-21-2021 08:50-0400 Body height 170.2 cm Anna Garber RN Work Phone: [facility] 12-21-2021 08:50-0400 Body temperature 96.01 [degF] Anna Garber RN Work Phone: [facility] 12-21-2021 08:50-0400 Body weight 65.32 kg Anna Garber RN Work Phone: [facility] 12-21-2021 08:50-0400 Diastolic blood pressure 70 mm[Hg] Anna Garber RN Work Phone: [facility] 12-21-2021 08:50-0400 Heart rate 76 /min Anna Garber RN Work Phone: [facility] 12-21-2021 08:50-0400 Respiratory rate 16 /min Anna Garber RN Work Phone: [facility] 12-21-2021 08:50-0400 SaO2% (BldA) [Mass fraction] 97 % Anna Garber RN Work Phone: [facility] 12-21-2021 08:50-0400 Systolic blood pressure 114 mm[Hg] Anna Garber RN Work Phone: [facility] 11-28-2021 13:55-0400 Body height 170.2 cm Pst 1 [facility] 11-28-2021 13:55-0400 Body temperature 98.1 [degF] Pst 1 [facility] 11-28-2021 13:55-0400 Body weight 67.13 kg Pst 1 [facility] 11-28-2021 13:55-0400 Diastolic blood pressure 70 mm[Hg] Pst 1 [facility] 11-28-2021 13:55-0400 Heart rate 95 /min Pst 1 [facility] 11-28-2021 13:55-0400 Respiratory rate 16 /min Pst 1 [facility] 11-28-2021 13:55-0400 SaO2% (BldA) [Mass fraction] 96 % Pst 1 [facility] 11-28-2021 13:55-0400 Systolic blood pressure 103 mm[Hg] Pst 1 [facility] 11-14-2021 10:55-0400 Body height 170.2 cm Collin Le MD Work Phone: [facility] 11-14-2021 10:55-0400 Body temperature 97.9 [degF] Collin Le MD Work Phone: [facility] 11-14-2021 10:55-0400 Body weight 69.4 kg Collin Le MD Work Phone: [facility] 11-14-2021 10:55-0400 Diastolic blood pressure 76 mm[Hg] Collin Le MD Work Phone: [facility] 11-14-2021 10:55-0400 Heart rate 95 /min Collin Le MD Work Phone: [facility] 11-14-2021 10:55-0400 Systolic blood pressure 124 mm[Hg] Collin Le MD Work Phone: [facility] Encounters Encounter Date Encounter Type Care Provider Facility Start: 04-26-2025 End: 04-26-2025 Office outpatient visit 25 minutes Henrry Haider PAPeteC Work Phone: [facility] Comment on above: Viral URI with cough (Primary Dx); SERVIN (dyspnea on exertion); Diarrhea, unspecified type Start: 04-26-2025 End: 04-26-2025 ambulatory HENRRY HAIDER Facility:[facility] Start: 04-01-2025 ambulatory Tom Campbell [facility] Start: 04-01-2025 Non-patient / Non-visit Tom Peoples nd DO -[facility] Start: 04-01-2025 End: 04-01-2025 Admission to same day surgery center Tom Campbell DO -Endoscopy Work Phone: Start: 04-01-2025 End: 04-01-2025 ambulatory Jesus Raza METAPHYSICIAN-C Work Phone: -Endoscopy Start: 01-17-2025 End: 01-17-2025 ambulatory Mallory Mckeon MD Work Phone: [facility] Work Phone: Start: 01-17-2025 End: 01-17-2025 Patient encounter procedure Zhane Hollis METAPHYSICIAN-C -Cat Scan [facility] Work Phone: Start: 01-17-2025 End: 01-17-2025 ambulatory Zhane Hollis Facility:[facility] Start: 12-22-2024 End: 12-22-2024 Patient encounter procedure Zhane Hollis METAPHYSICIAN-C -[facility] Work Phone: Start: 12-22-2024 End: 12-22-2024 ambulatory Mallory Mckeon MD Work Phone: [facility] Work Phone: Start: 10-27-2024 Encounter for genera l adult medical examination without abnormal findings Mallory Mckeon [facility] Start: 10-19-2024 End: 10-19-2024 ambulatory Jesus Raza METAPHYSICIAN-C Work Phone: [facility] Work Phone: Start: 10-19-2024 End: 10-19-[address] Mallory Mckeon MD -Laboratory, [facility] Start: 10-19-2024 End: 10-19-2024 ambulatory Mallory Mckeon Facility:[facility] Start: 08-18-2024 End: 08-18-2024 Patient encounter procedure Tom Campbell DO -[facility] Work Phone: Start: 08-18-2024 End: 08-18-2024 ambulatory Jesus Raza Facility:[facility] Start: 07-15-2024 End: 07-15-2024 ambulatory JESUS RAZA Facility:[facility] Start: 07-15-2024 End: 07-15-2024 Office outpatient visit 15 minutes Madi Barfield MD Work Phone: [facility] Comment on above: URI, acute (Primary Dx) Start: 05-25-2024 End: 05-25-2024 ambulatory Tom Campbell Facility:[facility] Start: 05-14-2024 End: 05-14-2024 ambulatory Tom Campbell Facility:[facility] Start: 05-11-2024 End: 05-11-2024 ambulatory Tom Campbell Facility:[facility] Start: 05-11-2024 End: 05-11-2024 ambulatory Tom Campbell Facility:[facility] Start: 04-29-2024 End: 04-29-2024 Telephone encounter Jesus Raza APRN.INTERNATIONAL RELATIONS PROFESSOR Work Phone: [facility] Comment on above: Orders Start: 04-27-2024 End: 04-29-2024 ambulatory Jesus Raza APRN.INTERNATIONAL RELATIONS PROFESSOR Work Phone: [facility] Start: 04-27-2024 End: 04-29-2024 Patient encounter procedure Jesus Raza APRN.INTERNATIONAL RELATIONS PROFESSOR Work Phone: [facility] Comment on above: Gastroenterology Ref erral Start: 04-20-2024 End: 04-20-2024 Telephone encounter Jesus Raza APRN.INTERNATIONAL RELATIONS PROFESSOR Work Phone: [facility] Comment on above: Results Start: 04-20-2024 End: 04-20-2024 Patient encounter procedure Jesus Raza APRN.INTERNATIONAL RELATIONS PROFESSOR Work Phone: [facility] Comment on above: Nausea (Primary Dx); Colonic inertia; Ileus following gastrointestinal surgery (HCC); Generalized abdominal pain; Colon stricture (HCC) Start: 09-29-2023 Telephone encounter Jesus domínguez APRN.INTERNATIONAL RELATIONS PROFESSOR Work Phone: [facility] Comment on above: Results Start: 09-26-2023 End: 09-26-2023 Patient encounter procedure Jesus Raza APRN.INTERNATIONAL RELATIONS PROFESSOR Work Phone: [facility] Comment on above: Screening for lipid disorders (Primary Dx); Wellness examination; Screening for diabetes mellitus; Colonic inertia Start: 09-26-2023 End: 09-26-2023 Patient encounter status Jesus Raza APRN.INTERNATIONAL RELATIONS PROFESSOR Work Phone: [facility] Work Phone: Start: 07-17-2023 End: 07-17-2023 Subsequent hospital visit by physician Xr [facility] Work Phone: Radiology Comment on above: Acute cough [R05.1] Start: 07-17-2023 End: 07-17-2023 Patient encounter procedure Santa Rascon APRN.INTERNATIONAL RELATIONS PROFESSOR Work Phone: [facility] Comment on above: Acute cough (Primary Dx) Start: 04-22-2023 End: 04-22-2023 ambulatory ROLANDO EUGENE Facility:[facility] Start: 04-22-2023 End: 04-22-2023 Patient encounter procedure Rolando P Jabier DO Work Phone: [facility] Comment on above: Lumbar radiculopathy (Primary Dx) Start: 04-21-2023 End: 04-21-2023 Subsequent hospital visit by physician Mri Radio [facility] (I-Stat/1.5t) Work Phone: Radiology Comment on above: Spinal stenosis of l umbar region without neurogenic claudication [M48.061] Start: 03-18-2023 End: 03-18-2023 ambulatory ROLANDO Nubia JABIER [facility] Start: 03-18-2023 End: 03-18-2023 Patient encounter procedure Rolando Nubia Jabier DO Work Phone: [facility] Comment on above: Lumbar radiculopathy (Primary Dx); Spinal stenosis of lumbar region without neurogenic claudication Start: 03-18-2023 End: 03-18-2023 Subsequent hospital visit by physician Xr [facility] Comment on above: Lumbar radiculopathy [M54.16] Start: 03-13-2023 End: 03-13-2023 Subsequent hospital visit by physician Xr [facility] Work Phone: Radiology Comment on above: Acute left-sided low back pain with left-sided sciatica [M54.42] Start: 03-13-2023 End: 03-13-2023 Patient encounter procedure Jesus CURTIS Work Phone: [facility] Comment on above: Acute left-sided low back pain with left-sided sciatica (Primary Dx) Start: 03-04-2023 Telephone encounter Manoj dove DO Work Phone: [facility] Start: 01-29-2023 End: 01-29-2023 Subsequent hospital visit by physician Xr [facility] Work Phone: Radiology Comment on above: URI, acute [J06.9] Start: 01-21-2023 ambulatory DAREN DIMAS [facility] Start: 12-11-2022 End: 12-11-2022 ambulatory COLLIN LE Facility:[facility] Start: 12-11-2022 End: 12-11-2022 Patient encounter procedure Collin Le MD Work Phone: [facility] Comment on above: Colonic inertia (Sailaja sotero Dx) Start: 12-06-2022 End: 12-06-2022 Subsequent hospital visit by physician Adonis [facility] Work Phone: Radiology Comment on above: Status post reversal of ileostomy [Z98.890] Start: 11-21-2022 Encounter for other preprocedural examination DAREN DIMAS [facility] Start: 11-21-2022 End: 11-21-2022 Admission to [address] Start: 11-21-2022 End: 11-22-2022 ambulatory KINZA SUTTON [facility] Comment on above: Pre-op exam (Primary Dx); Colonic inertia Start: 11-21-2022 End: 11-21-2022 Preprocedural examination done [facility] Start: 10-29-2022 ambulatory CASSIE ADKINS NANCIE Fac ility:[facility] Start: 10-29-2022 End: 10-29-2022 Subsequent hospital visit by physician Daren Dimas MD Work Phone: [facility] Comment on above: Rectal stricture [K6 2.4] Start: 10-22-2022 ambulatory CASSIE RICHARDSON Fac ility:[facility] Start: 10-22-2022 End: 10-22-2022 Subsequent hospital visit by physician Daren Dimas MD Work Phone: [facility] Comment on above: Rectal stenosis [K62 .4] Start: 10-16-2022 Orders Only Daren Dimas MD Work Phone: [facility] Comment on above: Rectal stenosis (Sailaja sotero Dx) Start: 10-15-2022 Telephone encounter Collin santiago MD Work Phone: [facility] Comment on above: Patient Update Start: 10-06-2022 End: 10-07-2022 ambulatory LINETTE LAMB [facility] ital Start: 10-02-2022 Telephone encounter Collin santiago MD Work Phone: [facility] Comment on above: Patient Update Start: 09-26-2022 End: 09-26-2022 Orders Only Daren Dimas MD Work Phone: [place] [facility] Comment on above: Rectal stricture (Pr imary Dx) Colonic inertia [K59 .9] Start: 09-16-2022 ambulatory COLLIN Bryant cility:[facility] Start: 09-16-2022 End: 09-16-2022 Subsequent hospital visit by physician Gi/Gu [facility] ([facility] Comment on above: Colonic inertia [K59 .9] Start: 09-06-2022 Orders Only Collin lala MD Work Phone: [facility] Comment on above: Colonic inertia (Sailaja sotero Dx) Start: 08-22-2022 End: 08-22-2022 Patient encounter procedure Cassie Richardson MD Work Phone: [facility] Comment on above: Encounter for immuni zation (Primary Dx); Screening for lipid disorders; Wellness examination Start: 08-22-2022 End: 08-22-2022 Patient encounter status Cassie Richardson MD Work Phone: [facility] Start: 08-19-2022 End: 08-19-2022 ambulatory COLLIN LE Facility:[facility] Start: 08-19-2022 End: 08-19-2022 Patient encounter procedure Collin Le MD Work Phone: [facility] Comment on above: Colonic inertia (Sailaja sotero Dx) Start: 04-04-2022 Patient Outreach Asha Bey RN Piano Professor Management Comment on above: Transition Of Care ( TCM initial outreach-dc'd from [facility] 04/03/22) Start: 03-07-2022 End: 03-07-2022 Patient encounter procedure Simone Becerra MD Work Phone: [facility] Comment on above: Colonic inertia Start: 01-11-2022 Telephone encounter Leonie Alejandre RN [place] [facility] Comment on above: [facility]sp[facility] Follow Up Start: 01-08-2022 End: 01-08-2022 Home visit Lacey Fortune [employer] Work Phone: [facility] Comment on above: SN ROUTINE Start: 01-01-2022 End: 01-01-2022 Home visit Maile Caruso RN Work Phone: [facility] Comment on above: SN ROUTINE Start: 12-31-2021 End: 12-31-2021 Patient encounter procedure Collin Le MD Work Phone: [facility] Comment on above: Colonic inertia (Sailaja sotero Dx); Ventral hernia without obstruction or gangrene Start: 12-28-2021 End: 12-28-2021 Home visit Maile Caruso RN Work Phone: [facility] Comment on above: SN PRN VISIT Start: 12-27-2021 End: 12-27-2021 Home visit Maile Caruso RN Work Phone: [facility] Comment on above: SN UNMADE VISIT Start: 12-24-2021 End: 12-24-2021 Home visit Maile Caruso RN Work Phone: [facility] Comment on above: SN ROUTINE Start: 12-21-2021 End: 12-21-2021 Home visit Anna Garber RN Work Phone: [facility] Comment on above: SN SOC Start: 12-20-2021 Patient Outreach Kylee Owen RN [facility] Care Management Comment on above: Transition Of Care ( TCM [facility] discharge 12-19-21- initial outreach ) Start: 11-28-2021 End: 11-28-2021 Admission to establishment [address] Start: 11-28-2021 End: 11-28-2021 ambulatory Pst 1 Pre [facility] Comment on above: Preop examination (P rimary Dx); Colonic inertia Start: 11-28-2021 End: 11-28-2021 Preprocedural examination done Pst 1 Pre [facility] Start: 11-28-2021 End: 11-28-2021 Patient encounter procedure Ostomy Nurse [facility] Comment on above: Other specified coun seling (Primary Dx) Start: 11-14-2021 End: 11-14-2021 Patient encounter procedure Collin Le MD Work Phone: [facility] Comment on above: Colonic inertia (Sailaja sotero Dx); Ventral hernia without obstruction or gangrene Start: 06-16-2021 End: 06-16-2021 Subsequent hospital visit by physician Xr [facility] Work Phone: Radiology Comment on above: Volvulus (HCC) [K56. 2] Start: 06-14-2021 End: 06-14-2021 Subsequent hospital visit by physician Xr [facility] Work Phone: Radiology Comment on above: Volvulus (HCC) [K56. 2] Start: 06-12-2021 End: 06-12-2021 Subsequent hospital visit by physician Xr [facility] Work Phone: Radiology Comment on above: Volvulus (HCC) [K56. 2] Start: 06-06-2021 End: 06-06-2021 Subsequent hospital visit by physician Derek Juarez MD Work Phone: [facility] Procedures Date Procedure Procedure Detail Performing Clinician Start: 04-26-2025 COVID & INFLUENZA A/B & RSV PCR, ROUTINE Henrry Haider PA-C Work Phone: Start: 04-01-2025 Esophagogastroduodenoscopy Jesus jenkins METAPHYSICIAN-C Work Phone: Start: 01-17-2025 Computed tomography of abdomen and pelvis with contrast Mallory Mckeon MD Work Phone: Start: 09-26-2023 Adult depression screening assessment Madi Barfield MD Work Phone: Start: 09-26-2023 Lipid 1996 panel - Serum or Plasma Benjamin Raza AIR CONDITIONING INSTALLER SUPERVISOR.INTERNATIONAL RELATIONS PROFESSOR Work Phone: Start: 07-17-2023 Radiologic exam chest 2 views Santa Braun ggs AIR CONDITIONING INSTALLER SUPERVISOR.INTERNATIONAL RELATIONS PROFESSOR Work Phone: Start: 04-21-2023 Mri spinal canal lumbar w/o contrast material Rolando Eugene DO Work Phone: Start: 03-13-2023 Radex spine lumbosacral 2/3 views Sofie Delacruz Abjesus PA Work Phone: Start: 01-29-2023 Radiologic exam chest 2 views Xiomara R Ath y PA-C Work Phone: Start: 12-06-2022 Radiologic exam abdomen 3+ views Brenda Cosmek DO Work Phone: Start: 09-16-2022 Radiologic exam colon single contrast study Collin Le MD Work Phone: Start: 08-22-2022 [employer] COVID-19 BIVALENT BOOSTER VACCINE, AGE 12+ YR Cassie Richardson MD Work Phone: Start: 08-22-2022 Lipid 1996 panel - Serum or Plasma Nilesh Bowseron DO Work Phone: Start: 11-28-2021 Antibody screen [...] on above: Performed By: #### T&S #### [place] [id number] Plan of Treatment Date Care Activity Detail Author Start: 09-26-2028 Lipid panel Lipid Screening [facility] Start: 03-03-2028 Urine microalbumin profile [facility] Start: 08-22-2027 Lipid 1996 panel - Serum or Plasma Lipid Screening [facility] Start: 08-22-2027 Lipid panel Lipid Screening [facility] Start: 08-22-2027 LIPID SCREEN LIPID SCREEN [facility] Start: 04-11-2025 Influenza vaccination Influenza Vaccine (#1) [facility] Start: 04-01-2025 Patient discharge [facility] Start: 12-22-2024 Patient referral [facility] Work Phone: Start: 09-26-2024 Anxiety Screening Anxiety Screening [facility] Start: 09-26-2024 Covid-19 Vaccine ( season) Covid-19 Vaccine () [facility] Comment on above: Postponed from 04/11/2023 (Declined at t his time) Start: 09-26-2024 Depression Screening Depression Screening [facility] Start: 04-11-2024 Covid-19 Vaccine ( season) Covid-19 Vaccine ( season) [facility] Start: 04-11-2024 Covid-19 Vaccine ( season) Covid-19 Vaccine ( season) [facility] Start: 04-11-2024 Influenza vaccination Influenza Vaccine (#1) [facility] Start: 02-08-2024 Influenza vaccination Influenza Vaccine (#1) [facility] Comment on above: Postponed from 04/11/2023 (Declined at t his time) Start: 09-26-2023 End: 12-26-2023 CBC W Auto Differential panel - Blood [facility] Work Phone: Comment on above: Expected: 09/26/2023, Expires: Start: 09-26-2023 End: 12-26-2023 Comprehensive metabolic 2000 panel - Serum or Plasma [facility] Work Phone: Comment on above: Expected: 09/26/2023, Expires: 4 Start: 09-26-2023 End: 12-26-2023 Hemoglobin A1c in Blood [facility] Work Phone: Comment on above: Expected: 09/26/2023, Expires: 4 Start: 09-26-2023 End: 12-26-2023 LIPID PANEL, NONFASTING [facility] Work Phone: Comment on above: Expected: 09/26/2023, Expires: 4 Start: 04-11-2023 Covid-19 Vaccine ( season) Covid-19 Vaccine ( season) [facility] Start: 04-11-2023 Influenza vaccination [facility] Start: 02-07-2023 Influenza vaccination INFLUENZA (#1) [facility] Comment on above: Postponed from 04/11/2022 (Declined at t his time) Start: 09-06-2022 End: 09-06-2023 SARS-CoV-2 (COVID-19) RNA [Presence] in Respiratory specimen by RAVINDER with probe detection PRE-PROCEDURE & PRE-OPERATIVE COVID Microbiology Routine Colonic inertia Expected: 09/06/2022, Expires: 09/06/2023 [facility] Work Phone: Comment on above: Expected: 09/06/2022, Expires: 4 Start: 08-11-2022 DEPRESSION ASSESSMENT DEPRESSION ASSESSMENT [facility] Start: 04-11-2022 Influenza vaccination INFLUENZA (#1) [facility] Start: 11-14-2021 End: 01-14-2022 Hemoglobin A1c/Hemoglobin.total in Blood HGB A1C Lab Routine Colonic inertia Ventral hernia without obstruction or gangrene Expected: 11/14/2021, Expires: 01/14/2022 [facility] Work Phone: Comment on above: Expected: 11/14/2021, Expires: 2 Start: 09-25-2021 COVID-19 VACCINE (4 - Booster for Moderna series) COVID-19 VACCINE (4 - Booster for Moderna series) [facility] Start: 2020 LIPID SCREEN LIPID SCREEN [facility] Start: 07-19-2020 Adult depression screening assessment DEPRESSION SCREENING [facility] Start: 2012 HPV Vaccine (1 - 3-dose SCDM series) HPV Vaccine (1 - 3-dose SCDM series) [facility] Start: 12-15-2003 Anxiety Screening Anxiety Screening [facility] Start: 12-15-2003 Depression Screening Depression Screening [facility] Start: 12-15-2003 HEPATITIS C SCREENING HEPATITIS C SCREENING [facility] Start: 12-15-2003 Hepatitis C screening Hepatitis C Screening [facility] Start: 12-15-2003 HIV SCREENING HIV SCREENING [facility] Start: 12-15-2003 HIV screening HIV Screening [facility] C reactive protein [Mass/volume] in Serum or Plasma [facility] CBC W Auto Different ial panel - Blood [facility] Comprehensive metabo lic 2000 panel - Serum or Plasma [facility] End: 05-20-2025 CT Abdomen and Pelvis W contrast IV CT ABD/PEL W IVCON Radiology STAT Nausea Colonic inertia Ileus following gastrointestinal surgery (HCC) Generalized abdominal pain Colon stricture (HCC) 1 Occurrences starting 04/20/2024 until 05/20/2025 [facility] Work Phone: Comment on above: 1 Occurrences starting 04/20/2024 until 05/20/2025 CT Abdomen and Pelvi s W contrast IV [facility] H&P for surgery H&P FOR SURGERY Procedures Routine Colonic inertia Ordered: 09/06/2022 [facility] Work Phone: Comment on above: Ordered: 09/06/2022 IgA [Mass/volume] in Serum or Plasma [facility] End: 04-16-2024 Mri spinal canal lumbar w/o contrast material MRI LUMBAR SPINE WO IVCON Radiology Routine Spinal stenosis of lumbar region without neurogenic claudication 1 Occurrences starting 03/18/2023 until 04/16/2024 [facility] Work Phone: Comment on above: 1 Occurrences starting 03/18/2023 until 04/16/2024 Patient referral [facility] Work Phone: End: 04-11-2024 Radex spine lumbosacral 2/3 views XR LUMBAR LIMITED 2V FLEX/EXT Radiology Routine Lumbar radiculopathy 1 Occurrences starting 03/13/2023 until 04/11/2024 [facility] Work Phone: Comment on above: 1 Occurrences starting 03/13/2023 until 04/11/2024 Radex spine lumbosac ral 2/3 views XR LUMBAR LIMITED 2V FLEX/EXT Radiology Routine Lumbar radiculopathy 03/18/2023 12:44 PM EDT [facility] Work Phone: End: 09-18-2023 Radiologic exam colon single contrast study XR COLON SINGLE CONTRAST Radiology Routine Colonic inertia 1 Occurrences starting 08/19/2022 until 09/18/2023 [facility] Work Phone: Comment on above: 1 Occurrences starting 08/19/2022 until 09/18/2023 End: 09-06-2023 SIGMOIDOSCOPY SIGMOIDOSCOPY Endoscopy Routine Colonic inertia 1 Occurrences starting 09/06/2022 until 09/06/2023 [facility] Work Phone: Comment on above: 1 Occurrences starting 09/06/2022 until 09/06/2023 End: 09-26-2023 SIGMOIDOSCOPY SIGMOIDOSCOPY Endoscopy Routine Rectal stricture 1 Occurrences starting 09/26/2022 until 09/26/2023 [facility] Work Phone: Comment on above: 1 Occurrences starting 09/26/2022 until 09/26/2023 End: 09-26-2022 SIGMOIDOSCOPY SIGMOIDOSCOPY Endoscopy Routine Colonic inertia 1 Occurrences starting 09/26/2022 until 09/26/2022 [facility] Work Phone: Comment on above: 1 Occurrences starting 09/26/2022 until 09/26/2022 End: 10-17-2023 SIGMOIDOSCOPY SIGMOIDOSCOPY Endoscopy Routine Rectal stenosis 1 Occurrences starting 10/16/2022 until 10/17/2023 [facility] Work Phone: Comment on above: 1 Occurrences starting 10/16/2022 until 10/17/2023 End: 10-22-2022 SIGMOIDOSCOPY SIGMOIDOSCOPY Endoscopy Routine Rectal stenosis 1 Occurrences starting 10/22/2022 until 10/22/2022 [facility] Work Phone: Comment on above: 1 Occurrences starting 10/22/2022 until 10/22/2022 End: 10-29-2022 SIGMOIDOSCOPY SIGMOIDOSCOPY Endoscopy Routine Rectal stricture 1 Occurrences starting 10/29/2022 until 10/29/2022 [facility] Work Phone: Comment on above: 1 Occurrences starting 10/29/2022 until 10/29/2022 Tissue transglutamin ase IgA Ab [Units/volume] in Serum [facility] Immunizations Immunization Date Immunization Notes [facility] COVID-19 booster vaccine, age 12+ yr, bivalent (PFIZER-BIONTECH) Cassie Richardson MD Work Phone: [facility] 07-31-2021 influenza, injectabl e, quadrivalent, contains preservative Collin Le MD Work Phone: [facility] 07-31-2021 influenza virus vaccine, unspecified formulation Rolando Eugene DO Work Phone: [facility] 05-20-2020 influenza, injectabl e, quadrivalent, contains preservative Collin Le MD Work Phone: [facility] 05-12-2019 influenza, injectabl e, quadrivalent, contains preservative Collin Le MD Work Phone: [facility] 05-20-2018 influenza, seasonal, injectable Collin Le MD Work Phone: [facility] 03-03-2018 tetanus toxoid, reduced diphtheria toxoid, and acellular pertussis vaccine, adsorbed Collin Le MD Work Phone: [facility] 05-22-2017 tetanus toxoid, reduced diphtheria toxoid, and acellular pertussis vaccine, adsorbed Collin Le MD Work Phone: [facility] 04-22-2005 Meningococcal, MCV4, unspecified conjugate formulation(groups A, C, Y and W-135) Collin Le MD Work Phone: [facility] Work Phone: 04-22-2005 tetanus toxoid, reduced diphtheria toxoid, and acellular pertussis vaccine, adsorbed Collin Le MD Work Phone: [facility] Work Phone: 06-24-2002 hepatitis B vaccine, pediatric or pediatric/adolescent dosage Collin Le MD Work Phone: [facility] Work Phone: 11-26-2001 hepatitis B vaccine, pediatric or pediatric/adolescent dosage Collin Le MD Work Phone: [facility] Work Phone: 10-14-2001 hepatitis B vaccine, pediatric or pediatric/adolescent dosage Clolin Le MD Work Phone: [facility] Work Phone: Payers Date Payer Category Payer Private Health Insurance [id number] 2024 Self-pay 2022 Unknown [id number] 2022 Unknown [id number] 2017 Private Health Insurance [employer] A ETNA CHOICE POS II [id number] 2017-Present [phone] [address] [place] [address] POS [id number] 2017 Private Health Insurance [id number] 1985 Unknown [id number] 98 1959 Unknown [id number] Unknown [id number] 62 Unknown [id number] 62 Unknown [id number] 62 Unknown [id number] 62 Unknown [id number] 62 Unknown [id number] 62 Unknown [id number] 62 Unknown [id number] 62 Unknown [id number] 62 Unknown [id number] 62 Social History Date Type Detail Facility [facility] Work Phone: Start: 1985 Sex Assigned At Not on file S [facility] Work Phone: Start: 11-14-2021 End: 10-29-2022 Tobacco smoking status MNIS Never smoked tobacco [facility] History of tobacco use Cigarette Smoker [facility] Start: 11-14-2021 End: 10-29-2022 Tobacco use and exposure Smokeless tobacco non-user [facility] Start: 11-14-2021 End: 04-26-2025 Alcohol intake Current drinker of alcohol (finding) [facility] Start: 11-14-2021 End: 12-11-2022 Alcohol intake [facility] Start: 08-20-2021 End: 11-29-2022 History SDOH Alcohol Frequency 1 [facility] Start: 08-20-2021 History SDOH Alcohol Std Drinks 98 [facility] Start: 08-20-2021 History SDOH Social Connections Phone 4 [facility] Start: 08-20-2021 End: 11-29-2022 History SDOH Social Connections Membership 2 [facility] Start: 08-20-2021 History SDOH Social Connections Living 3 [facility] Start: 08-20-2021 History SDOH Physica l Activity DPW 0 [facility] Start: 08-20-2021 End: 11-29-2022 History SDOH Financial 5 [facility] Start: 07-02-2019 End: 10-22-2022 Tobacco Comment cigar 2 - 3 x yearly [facility] Start: 1985 Sex Assigned At Male C [facility] Start: 05-08-2021 End: 04-03-2022 Exposure to SARS-CoV-2 (event) Not sure [facility] Start: 11-28-2021 History SDOH Alcohol Comment 4 drinks per month [facility] Start: 11-18-2021 End: 11-28-2021 Exposure to SARS-CoV-2 (event) Unable to assess [facility] Start: 09-26-2022 Alcohol Comment 2-3x/week [facility] Start: 08-20-2021 End: 12-11-2022 Social connection and isolation panel [facility] Do you belong to any clubs or organizations such as confucianism groups, unions, fraternal or athletic groups, or school groups? No [facility] Are you now , , , , never or living with a partner? [facility] How often to you hav e a drink containing alcohol? Never [facility] Start: 07-12-[address] inks containing alcohol do you have on a typical day? Patient refused [facility] Do you feel stress - tense, restless, nervous, or anxious, or unable to sleep at night because your mind is troubled all the time - these days [OSQ] To some extent [facility] (I/We) worried sahara er (my/our) food would run out before (I/we) got money to buy more. Never true [facility] Work Phone: Start: 06-06-2021 Gender identity Identifies as male gender (finding) [facility] How often to you hav e a drink containing alcohol? 2-3 time sa week [facility] How many standard dr inks containing alcohol do you have on a typical day? 1 or 2 [facility] How hard is it for y ou to pay for the very basics like food, housing, medical care, and heating Somewhat hard [facility] (I/We) worried sahara er (my/our) food would run out before (I/we) got money to buy more. Sometimes true [facility] Start: 07-02-2019 Tobacco smoking stat us MNIS Occasional tobacco smoker [facility] How often to you hav e a drink containing alcohol? 4 or more times a week [facility] Work Phone: Start: 10-27-2024 Sex Male (finding) [facility] Medical Equipment Procedure Code Equipment Code Equipment Origin al Text Equipment Identifier Dates Substitute Mastergraft Calcium Phosphate Collagen Bone Graft Putty Void - [id number] Start: 07-19-2019 Dev Bul Par 9x12 x23 - [id number] Start: 07-19-2019 Screw Viper Prim e Cfxfen Xtab 7x45mm [id number] Start: 07-19-2019 Screw Viper Prim e Cfxfen Xtab 7x50mm [id number] Start: 07-19-2019 William Viper 2 Lordotic Titanium 45mm Spinal Mis - [id number] Start: 07-19-2019 William Viper 2 Titanium 50mm Spinal Lordotic Minimally Invasive Surgery - [id number] Start: 07-19-2019 Set Titanium Scr ew 1 Inner Mis Spine - [id number] Start: 07-19-2019 Ileostomy suppli es: - 1 Box Coloplast One piece Assura drainable pouch OR - 2 boxes Coloplast Tacho red flat wafer # [id number] - 1 box Coloplast Scotia red drainable pouches # 52757 - 1 box Swisher small barrier rings # 7805 - 1 tube stomahesive paste # 2650 - 1 box Coloplast Elastic barrier strips # [id number] - 1 bottle stomahesive powder # 41031 - 1 box adhesive remover wipes - 1 box skin barrier prep wipes # [id number] Start: 12-07-2021 End: 03-18-2023 Comment on above: Ileostomy supplies: - 1 Box Coloplast One piece Assura drainable pouch OR - 2 boxes Coloplast Tacho red flat wafer # 63236 - 1 box Coloplast Scotia red drainable pouches # 47325 - 1 box Swisher small barrier rings # 7805 - 1 tube stomahesive paste # 2650 - 1 box Coloplast Elastic barrier strips # [id number] - 1 bottle stomahesive powder # 37692 - 1 box adhesive remover wipes - 1 box skin barrier prep wipes # Goals Date Patient Goal Desired Activity /State Functional Status Date Assessment Result Facility 12-03-2022 Are you deaf, or do you have serious difficulty hearing No 12/03/2022 9:41 AM Noemy Alarcon RN [facility] 12-03-2022 Are you blind, or do you have serious difficulty seeing, even when wearing glasses No 12/03/2022 9:41 AM Noemy Alarcon RN No [facility] 12-03-2022 Do you have serious difficulty walking or climbing stairs No 12/03/2022 9:41 AM Noemy Alarcon RN [facility] 12-03-2022 Do you have difficul ty dressing or bathing No 12/03/2022 9:41 AM Noemy Alarcon RN [facility] 12-03-2022 Because of a physica l, mental, or emotional condition, do you have difficulty doing errands alone such as visiting a physician's office or shopping No 12/03/2022 9:41 AM Noemy Alarcon RN [facility] Mental Status Date Assessment Result Facility 04-01-2025 Cognitive function Level Of Cons ciousness Awake;Alert;Appropriate [facility] Work Phone: 04-01-2025 Cognitive function Voice/Name [facility] Work Phone: 12-03-2022 Because of a physica l, mental, or emotional condition, do you have serious difficulty concentrating, remembering, or making decisions No 12/03/2022 9:41 AM Noemy Alarcon RN No [facility] Clinical Notes 06-12-2021 to 04-26-2025 Patient InstructionsSlabaugh, Henrry L, PA-C - 04/26/2025 11:20 AM EDT Note [...] 11:20 AM 04/26/25 documented in this encounter [facility] 04-26-2025 Note SARS-COV-2 (AGENT OF COVID-19) RNA: Not detected INFLUENZA A RNA: Not detected INFLUENZA B RNA: Not detected RESPIRATORY SYNCYTIAL VIRUS (RSV) RNA: Not detected [facility] Comment on above: Performed By: #### 9 [id number] #### [facility] CLIA [id number] [address] [place] [address] [place] [address] [place] 04-26-2025 Note HNO ID: [id number] Author: HENRRY HAIDER PA-C Service: ? 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 Mouth/Throat: Lips: Stephenson. No lesions. Mouth: Mucous membranes are moist. [...] eye: No dischar (more content not included)... [facility] 04-26-2025 History of Presen t illness Narrative [...] tenderness or frontal sinus tenderness. Mouth/Throat: Lips: Stephenson. No lesions. Mouth: Mucous membranes are moist. [...] which included preparing to see the patient, [id number] patient care, completing clinical documentation, obtaining and/or [...] Drug use: Never documented in this encounter [facility] 04-01-2025 Consult note Note Date/Time April 01, 2025 1: 23pm [facility] Medical Records Department [address] [place] [address] Anesthesia Postop Eval I 04/01/25 1323 MR#: [id number] Acct: [id number] Name: EUNICE VARGAS Rep #:[id number] : 1985 39 From: Lul crenshaw CRNA PCP: Dr. Mallory Mckeon MD Status:REG SD C Y Race: C Location: [place] [address] Anesthesia: Postop Eval I Current Vital Signs [...] 04/01/25 1323 <Electronically signed by Lul Mcclellan FIELD TECHNICIAN> Date _ Lul Celestin FIELD TECHNICIAN Cosigner Signature: Date CC: ~ Signed [facility] Work Phone: 1(477) 311-991408-22-2025 History and physical note Author Tom Friend [facility] Note Date/Time April 01, 2025 1: 03pm [facility] Medical Records Department [address] [place] [address] History & Physical Exam 04/01/25 1302 MR#: [id number] Acct: [id number] Name: EUNICE VARGAS Rep #:[id number] : 1985 39 From: Tom Campbell DO PCP: Dr. Mallory Mckeon MD Status:REG SD C Location: [place] [address] HPI - General General Date of Admission: [...] - no change in pain with movement [facility] Medical History Wears contact lenses Wears glasses [...] - Allergy to other foods t-Transglutaminase IgA 05/14/25 R10.12 - Left upper quadrant pain, R10.31 [...] systemic symptoms, the patient has been referred toallergist/ore buyer Dr. Idris Ghosh for review of prior serum allergen testing and management guidance. The role of magnesium supplementation was discussed; however, due to the potential for worsening diarrhea, he is advised to defer use at this time. He currently does not take antidiarrheals. Follow-up will be based on the results of labs, imaging, and EGD findings. Note: Sarbari speech recognition digital marketing consultant software was used to create portions of this document. Sound-alike and misspelled words, as well as other digital marketing consultant errors may be contained in the documentation. [...] Mallory Mckeon MD; Tom Campbell DO~ Signed [facility] Work Phone: 1(762) 395-369708-22-2025 Consult note Author Josiah Blackwell [facility] Note Date/Time April 01, 2025 12 :35pm [facility] Medical Records Department [address] [place] [address] Pre-Anesthesia Evaluation 04/01/25 1227 MR#: [id number] Acct: [id number] Name: EUNICE VARGAS Rep #:[id number] : 1985 39 From: Josiah Blackwell MD PCP: Dr. Mallory Mckeon MD Status:REG SD C Y Race: C Location: [place] [address] ASA Classification* ASA Classification ASA Classification: 2 [...] Procedure(s): EGD Anesthesia History Anesthesia History - shortage worker: Anesthesia History - shortage worker Hx Hospitalization No 03/30/25 10:02 Any Problems [...] take am of surgery PONV PONV - shortage worker: PONV - shortage worker Female No 03/30/25 10:02 HX of Motion [...] 04/01/25 12:14 Respiratory Assessment Respiratory Assessment - shortage worker: Respiratory Tract Infection Hx - shortage worker Hx Respiratory Tract Infection No 03/30/25 10:02 STOP Sleep Apnea STOP Sleep Apnea - shortage worker: STOP Sleep Apnea - shortage worker Hx Hypertension No 03/30/25 10:02 Hx Sleep [...] Tobacco Use History Tobacco Use History - shortage worker: Tobacco Use History - shortage worker Tobacco Use Smoking Status Never smoker 03/30/25 10:02 Hx Tobacco Use No 03/30/25 10:02 Years Smoking Packs Smoked per Day Smoking Cessation Date was within the last 15 years Hx Smoking Cessation Date Hx Smoking Cessation Counseling Hematologic Medial History Hematologic Hx - shortage worker: Hematologic Medical Hx - first officer Hx of Blood Transfusion Yes 03/30/25 10:02 [...] confused, unrespo /Reproduction History /Reproductive History - shortage worker: /Reproductive Hx- shortage worker Hx Now No 03/30/25 10:02 Gestational Age [...] no additional complaints, except as documented. 04/01/25 1234 <Electronically signed by Josiah ledesma MD> Date _ Josiah Blackwell MD Cosigner Signature: Date CC: ~ Signed [facility] Work Phone: 1(329) 178-589208-22-2025 Consult note [facility] Medical Records Department [address] [place] [address] Anesthesia Postop Eval I 04/01/25 1323 MR#: [id number] Acct: [id number] Name: EUNICE VARGAS Rep #:[id number] : 1985 39 From: Lul crenshaw CRNA PCP: Dr. Mallory Mckeon MD Status:REG SD C Y Race: C Location: [place] [address] Anesthesia: Postop Eval I Current Vital Signs Temperature: 97.9 F Pulse Rate: 98 Blood Pressure: 125/78 Respiratory Rate: 16 Pulse Ox: 98 Assessment Airway patent: Yes Spontaneous unlabored respirations: Yes nausea: No Vomiting: No Anesthesia Complication: No Fluid Hydration Crystalloid volume administer (ml): 300 Total IV fluid infused: 300 Progress Note Anesthesia document: Postop Eval 1 completed: Yes 04/01/25 1323 row FIELD TECHNICIAN> Date _ Lul Celestin FIELD TECHNICIAN Cosigner Signature: Date CC: ~ Signed [facility]08-22-2025 Procedure note [facility] Medical Records Department [address] [place] [address] EGD Report MR#: [id number] Acct: [id number] Name: EUNICE VARGAS Rep #:[id number] : 1985 39 From: Tom Campbell DO [...] present medications. Procedure Code(s): --- Professional --- 13871, Small intestinal endoscopy, enteroscopy beyond second portion of duodenum, not including ileum; with biopsy, single or multiple CPT copyright 2021 [employer]. All rights reserved. The codes documented in this report are preliminary and upon plan examiner review may be revised to meet current compliance requirements. Tom Campbell DO 04/01/2025 1:23:18 PM This report has been signed electronically. Number of Addenda: 0 Note Initiated On: 04/01/2025 12:54 PM 04/01/25 1323 Date _ Tom Campbell DO Cosigner Signature: Date (if indicated) CC: Dr. Mallory Mckeon MD; Tom Campbell DO ~ Date Dictated: 04/01/25 1254 Date Transcribed: Advertising Agency Manager: RF Signed [facility]08-22-2025 Procedure note [facility] Medical Records Department [address] [place] [id number] Provation Physician Letter MR#: [id number] Acct: [id number] Name: EUNICE VARGAS JOYCE Rep #:[id number] : 1985 39 From: Tom Campbell DO PCP: Dr. Mallory Mckeon MD Status:REG SD C 04/01/2025 Mallory Mckeon Md Re : Upper GI endoscopy procedure for Eunice Mckeon This procedure was performed on Tuesday, April [...] signed electronically. 04/01/25 1323 Date _ Tom Campbell DO Cosigner Signature: Date (if indicated) CC: Dr. Mallory Mckeon MD; Tom Campbell DO ~ Date Dictated: 04/01/25 1254 Date Transcribed: Advertising Agency Manager: RF Signed [facility]08-22-2025 History and physical note [facility] Medical Records Department [address] [place] [address] History & Physical Exam 04/01/25 1302 MR#: [id number] Acct: [id number] Name: EUNICE VARGAS Rep #:[id number] : 1985 39 From: Tom Cambpell DO PCP: Dr. Mallory Mckeon MD Status[facility] Location: [place] [address] HPI - General General Date of Admission: [...] - no change in pain with movement [facility] Medical History Wears contact lenses Wears glasses [...] abdominal pain: Status: Acute Orders: Orders CRP 05/14/25 R10.12 - Left upper quadrant pain, R10.31 [...] systemic symptoms, the patient has been referred toallergist/ore buyer Dr. Idris Ghosh for review of prior serum allergen testing and management guidance. The role of magnesium supplementation was discussed; however, due to the potential for worsening diarrhea, he is advised to defer use at this time. He currently does not take antidiarrheals. Follow-up will be based on the results of labs, imaging, and EGD findings. Note: Sarbari speech recognition digital marketing consultant software was used to create portions of this document. Sound-alike and misspelled words, as well as other digital marketing consultant errors may be contained in the documentation. Patient Instructions: GIPCR/Calprotectin/H. Pylori - [facility] EGD - LUQ pain ?HH CT CRP/Celiac serologies - will do in [address] Ghosh Follow-up in office after completion of testing and consult with Dr. Ghosh Plan Details Follow Up: 3 Months 04/01/25 1303 Cosigner Signature (if applicable): CC: Dr. Mallory Mckeon MD; Tom Friend, DO~ Signed [facility]08-22-2025 [facility] Medical Records Department [address] [place] [address] History Physical Exam 04/01/25 1302 MR#: [id number] Acct: [id number] Name: EUNICE VARGAS Rep #: [id number] : 1985 39 From: Tom Campbell DO PCP: Dr. Mallory Mckeon MD Status[facility] Location: [place] [address] HPI - General General Date of Admission: [...] - no change in pain with movement [facility] Medical History Wears contact lenses Wears glasses [...] to percussion Rectal Exam: (more content not included)...[facility]08-22-2025 Consult note [facility] Medical Records Department [address] [place] [address] Pre-Anesthesia Evaluation 04/01/25 1227 MR#: [id number] Acct: [id number] Name: EUNICE VARGAS Rep #:[id number] : 1985 39 From: Josiah Blackwell MD PCP: Dr. Mallory Mckeon MD Status:REG SD C Y Race: C Location: [place] [address] ASA Classification* ASA Classification ASA Classification: 2 [...] Procedure(s): EGD Anesthesia History Anesthesia History - shortage worker: Anesthesia History - shortage worker Hx Hospitalization No 03/30/25 10:02 Any Problems [...] take am of surgery PONV PONV - shortage worker: PONV - shortage worker Female No 03/30/25 10:02 HX of Motion [...] 04/01/25 12:14 Respiratory Assessment Respiratory Assessment - shortage worker: Respiratory Tract Infection Hx - shortage worker Hx Respiratory Tract Infection No 03/30/25 10:02 STOP Sleep Apnea STOP Sleep Apnea - shortage worker: STOP Sleep Apnea - shortage worker Hx Hypertension No 03/30/25 10:02 Hx Sleep [...] Tobacco Use History Tobacco Use History - shortage worker: Tobacco Use History - shortage worker Tobacco Use Smoking Status Never smoker 03/30/25 10:02 Hx Tobacco Use No 03/30/25 10:02 Years Smoking Packs Smoked per Day Smoking Cessation Date was within the last 15 years Hx Smoking Cessation Date Hx Smoking Cessation Counseling Hematologic Medial History Hematologic Hx - shortage worker: Hematologic Medical Hx - first officer Hx of Blood Transfusion Yes 03/30/25 10:02 [...] confused, unrespo /Reproduction History /Reproductive History - shortage worker: /Reproductive Hx- shortage worker Hx Now No 03/30/25 10:02 Gestational Age [...] MD Cosigner Signature: Date CC: ~ Signed [facility]06-10-2025 Radiology Diagnostic study note [facility] Imaging Services [address] [place] [address] Abdomen/Pelvis WITH Contrast MR#: [id number] Acct: [id number] Name: EUNICE VARGAS Rep #: [id number] : 1985 M 39 From: Estefany Santiago MD PCP: Dr. Mallory Mckeon MD Status: REG CL I Study:Abdomen/Pelvis WITH Contrast Date of Ex am: 01/17/25 Exam# [id number] Ordering Dr: Zhane Hollis METAPHYSICIAN-C PROCEDURE: ABDOMEN/PELVIS WITH CONTRAST 01/17/2025 REASON FOR [...] No interval change is noted. Reading [facility] CC: PERLA Hollis; Dr. Mallory Mckeon MD ~ Advertising Agency Manager: Signed [facility]05-14-2025 Evaluation note* Diagnosis Onset Date Resolution Status Admit Date Diarrhea acute December 22, 2024 7:47am Food allergy acute December 22 7:47am LUQ pain acute December 22, 2024 7:47am RLQ abdominal pain acute December 222024 7:47am [facility] Work Phone: 1(151) 524-147905-14-2025 Evaluation note* Diagnosis Onset Date Resolution Status Admit Date Diarrhea acute December 22, 2024 7:47am Food allergy acute December 22 7:47am LUQ pain acute December 22, 2024 7:47am RLQ abdominal pain acute December 222024 7:47am LUQ pain acute April 01, 025 11:51am RLQ abdominal pain acute April 01, 2025 11:51am [facility] Work Phone: 1(953) 748-964801-08-2025 Evaluation note* Diagnosis Onset Date Resolution Status Admit Date Diarrhea acute August 18, 025 8:47am Food allergy acute August 18, 2024 8:47am Hepatomegaly acute August 18, 2024 8:47am [facility] Work Phone: 1(708) 972-682612-05-2024 NoteHNO ID: [id number] Author: MADI BARFIELD MD Service: ? Author [...] pain, or late onset fever. Madi Barfield, [facility]12-05-2024 History of Present illness Narrative* Madi [...] onsetfever. Madi Barfield MD documented in this encounterUniversity Hospitals [facility]09-19-2024 Telephone encounter Note * Telephone Encounter - Caroline Chamberlain MA - 04/29/2024 12:38 PM EDT This has been faxed as requested. Caroline Chamberlain MA [facility]09-19-2024 Miscellaneous Notes* Telephone Encounter - Caroline Chamberlain MA - 04/29/2024 12:38 PM EDT This has been faxed as requested. Caroline Chamberlain MA * Telephone Encounter - Jesus Raza APRN.CNP - 04/29/2024 8:48 AM EDT Please fax consult to Dr. Campbell. documented in this encounterUniversity Hospitals Tripoint [facility] Center09-19-2024 Telephone encounter Note * Telephone Encounter - Caroline Chamberlain MA - 04/29/2024 10:48 AM EDT Referral paperwork has been faxed to Dr. Campbell's office at [phone]. Caroline Chamberlain MA [facility]09-19-2024 Miscellaneous Notes* Telephone Encounter - Caroline Chamberlain MA - 04/29/2024 10:48 AM EDT Referral paperwork has been faxed to Dr. Campbell's office at [phone]. Caroline Chamberlain MA * Telephone Encounter - Jesus Raza APRN.CNP - 04/29/2024 8:47 AM EDT Please fax order to [facility]. * Telephone Encounter - Aydin José LPN - 04/28/2024 7:07 PM EDT Consult GI pending. Aydin José LPN documented in this encounterUniversity Hospitals Tripoint [facility] Center09-19-2024 Telephone encounter Note * Telephone Encounter - Jesus Raza APRN.CNP - 04/29/2024 8:48 AM EDT Please fax consult to Dr. Campbell. [facility]09-19-2024 Telephone encounter Note* Telephone Encounter - Jesus Raza APRN.CNP - 04/29/2024 8:47 AM EDT Please fax order to [facility] Gastro. [facility]09-18-2024 Telephone encounter Note* Telephone Encounter - Aydin José LPN - 04/28/2024 7:07 PM EDT Consult GI pending. Aydin José LPN [facility]09-10-2024 Telephone encounter Note* Telephone Encounter - Vilma Christianson MA - 04/20/2024 3:16 PM EDT Pt notified and voiced understanding. Vilma Christianson MA [facility]09-10-2024 Miscellaneous Notes* Telephone Encounter - Vilma Christianson MA - 04/20/2024 3:16 PM EDT Pt notified and voiced understanding. 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 Patient should proceed to ER as he will likely need evaluation by surgery. * Telephone Encounter - Caroline Chamberlain MA - 04/20/2024 2:16 PM EDT Pt completed CT Abd/Pelv at [facility]. This has been scanned into pt's chart. Please review and advise. 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 Patient should proceed to ER as he will likely need evaluation by surgery. [facility]09-10-2024 Telephone encounter Note* Telephone Encounter - Caroline Chamberlain MA - 04/20/2024 2:16 PM EDT Pt completed CT Abd/Pelv at [facility]. This has been scanned into pt's chart. Please review and advise. Caroline Chamberlain MA [facility]09-10-2024 History of Present illness Narrative* Jesus Raza APRN.ANDREW - 04/20/2024 8:04 AM EDT Chief Complaint [...] PAST SURGICAL HISTORY 05/14/2021: APPENDECTOMY Comment: w/ 2/ of colon removed at same time 11/26/2022: [...] - ENTERIC CONTRAST (RADIOLOGY PROCEDURE) Jesus Raza APRN.CNP documented in this encounterUniversity Hospitals Tripoint Medical Center02-19-2024 Miscellaneous Notes* Telephone Encounter - Susana Rachel Cma - 09/29/2023 10:27 AM EST Trackt message sent to patient Susana Rachel Mike * Telephone Encounter - Jesus Raza APRN.CNP - 09/29/2023 10:16 AM EST Please let patient know their labs are normal. documented in this encounterUniversity Hospitals Tripoint Medical Center02-16-2024 History of Present illness Narrative* Jesus Raza APRN.CNP - 09/26/2023 9:07 AM EST Chief Complaint Patient presents with: Establish Care HPI Eunice Vargas is a 37 year old male who presents here today for Above Complaints.. Patient presents to [facility]. Past medical history, appointments, medications, allergies [...] HIV Screening Never done Covid-19 Vaccine( - 2022- season) due on 04/11/2023 Depression Assessment due [...] -Hx of ileostomy, had reversed. Jesus Raza APRN.ANDREW documented in this encounterUniversity Hospitals Tripoint Medical Center12-07-2023 History of Present illness Narrative* Santa Rascon APRN.CNP - 07/17/2023 5:00 PM EST This note was created using Seeking Alphariter. Subjective Eunice Vargas is a 37 year [...] history is provided by the patient. No senior test analyst was used. Cough This is a new [...] Wt 81 kg (178 lb 9.6 oz) WzP581% BMI 28.83 kg/m Physical Exam Vitals and [...] Doxy F/U for persistent symptoms. Santa Rascon APRN.INTERNATIONAL RELATIONS PROFESSOR documented in this encounterUniversity Hospitals Tripoint Medical Center09-12-2023 NoteHNO ID: [id number] Author: Rolando Eugene, Service: ? Author Type: Physician Type: Progress Notes Filed: 04/22/2023 11:06 AM Note Text: Rolando Eugene DO [facility] General Orthopedics - Orthopedic Spine Surgeon [address], [facility] [address] [place] [address] Phone: [phone] ([phone] FAX: [phone] SPINE SURGERY OUTPATIENT CONSULT SERVICE DATE: 04/16/2023 [...] him the most. He had participated in post acute care registered nurse with no relief. His lumbar x-rays at [...] much today. PREVIOUS CONSERVATIVE TREATMENTS: Prednisone Flexeril direct care worker x2 PREVIOUS SURGERY: SURGERY #1: L4-5 TLIF with PSF on 07/19/[address] 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 Rolando Eugene DO [facility] Orthopedics - Orthopedic Spine Surgeon [address] [facility] [address] [place] [address] Phone: [phone] ([phone] FAX: [phone] SPINE SURGERY OUTPATIENT CONSULT SERVICE DATE: 04/16/2023 [...] him the most. He had participated in post acute care registered nurse with no relief. His lumbar x-rays at [...] much today. PREVIOUS CONSERVATIVE TREATMENTS: Prednisone Flexeril direct care worker x2 PREVIOUS SURGERY: SURGERY #1: L4-5 TLIF with PSF on 07/19/[address] 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 documented in this encounterUniversity Hospitals Tripoint Medical Center09-11-2023 History of Present illness Narrative* Tamara White RT(R) - 04/21/2023 3:00 PM EDT Radiology Service [...] 21, 2023 3:14 PM documented in this encounterUniversity Hospitals Tripoint Medical Center08-24-2023 Miscellaneous Notes* Telephone Encounter - Robyn Richter - 04/03/2023 3:49 PM EDT Pt informed, verbalized understanding Robyn Richter * Telephone Encounter - Deanna Resendiz APRN.CNP - 04/03/2023 3:13 PM EDT Unfortunately, our pcp team is not accepting any new patients. We apologize for the inconvenience. Thank you, Deanna Resendiz APRN.CNP * Telephone Encounter - Kenny Box - 03/13/2023 10:04 AM EDT Pt's mother called checking status of previous request to have her son and [id number] be seen by Dr. Coley * Telephone Encounter - Kimberli Carroll - 03/04/2023 9:56 AM EDT Patient calling stating Dr. Coley spoke with his mother Marissa Noble #[phone] stating that Dr. Coley will see patent an dhis Santa Vargas #[phone]. Please advise. documented in this encounterUniversity Hospitals Tripoint Medical Center08-08-2023 NoteHNO ID: [id number] Author: Rolando Eugene DO Service: ? Author Type: Physician Type: Progress Notes Filed: 03/18/2023 1:43 PM Note Text: Rolando Eugene DO [facility] General Orthopedics - Orthopedic Spine Surgeon 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 MUSCLE (more content not included)...[facility]08-08-2023 History of Present illness Narrative* Rolando Eugene DO - 03/18/2023 1:00 PM EDT Images from the original note were not included. Rolando Eugene DO [facility] Orthopedics - Orthopedic Spine Surgeon 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 He has tried post acute care registered nurse without any improvement. Recommend an MRI of [...] DO This note was partially generated using Sarbari voice recognition system, and there may be [...] Level: 4 - Moderate documented in this encounterUniversity Hospitals Tripoint Medical Center08-03-2023 History of Present illness Narrative* Sanna Troy, RT(R) - 03/13/2023 12:30 PM EDT Radiology [...] 13, 2023 12:19 PM documented in this encounterUniversity Hospitals Tripoint Medical Center08-03-2023 History of Present illness Narrative* Jesus Fitzgerald PA - 03/13/2023 12:12 PM EDT This note was created using Seeking Alphariter. Subjective Eunice Vargas is a 37 year [...] drainable pouch OR - 2 boxes Coloplast Scotia red flat wafer # 23771 - 1 box Coloplast Scotia red drainable pouches # 74061 - 1 box Ryan small barrier rings # 7805 - 1 tube stomahesive paste # 2650 - 1 box Coloplast Elastic barrier strips # 710992 - 1 bottle stomahesive powder # 33533 - 1 box adhesive remover wipes - [...] he would like to see somebody in [place]. - [facility] - [...] ER evaluation. KIRSTEN Rowland documented in this encounterUniversity Hospitals Tripoint Medical Center06-21-2023 History of Present illness Narrative* Sanna Troy [...] IV DATA: Not applicable SIGNED BY: RT Cyril([place]isa) January 29, 2023 10:55 AM documented in this encounterUniversity Hospitals Tripoint Medical Center05-03-2023 NoteHNO ID: [id number] Author: Collin Le MD Service: ? Author Type: Physician Type: Progress Notes Filed: 12/11/2022 10:10 AM Note Text: Collin Le M.D. Colon AND Rectal Surgery [facility], [facility] [address] [place] [address] [facility] Eunice Vargas is a 36 year old [...] 2 of colon removed at same time CLOSURE [...] boxes Coloplast Tacho red flat wafer # 06590 - 1 box Coloplast Tacho red drainable pouches # 19447 - 1 box Swisher small barrier rings # 7805 - 1 tube stomahesive paste # 2650 - 1 box Coloplast Elastic barrier strips # 057787 - 1 bottle stomahesive powder # 97848 - 1 box adhesive remover wipes - [...] affect no (more content not included)...[facility]05-03-2023 History of Present illness Narrative* Collin Le MD - 12/11/2022 9:19 AM EDT Collin Le M.D. Colon & Rectal Surgery [facility], [address] [place] [id number] SUBJECTIVE Eunice Vargas is a 36 year [...] boxes Coloplast Tacho red flat wafer # 23190 - 1 box Coloplast Tacho red drainable pouches # 80175 - 1 box Swisher small barrier rings # 7805 - 1 tube stomahesive paste # 2650 - 1 box Coloplast Elastic barrier strips # 839309 - 1 bottle stomahesive powder # 04284 - 1 box adhesive remover wipes - [...] This office note has been created using CellCentric, a speech recognition software program, and may contain errors including punctuation, grammar, spelling, gender, and inappropriate words or phrases that pertain to the sytem. documented in this encounterUniversity Hospitals Tripoint Medical Center04-28-2023 History of Present illness Narrative* Evy Daigle, RT(R) - 12/06/2022 8:10 AM EDT Radiology [...] 06, 2022 8:03 AM documented in this encounterUniversity Hospitals Tripoint Medical Center04-25-2023 NoteHNO ID: [id number] Author: Jacque Aranda RN Service: Care Management [...] Row Name Admission (Current) from 11/26/2022 in [place] [facility]EDIC Medical Follow-Up Appointment Specialty surgery Provider Name Collin le Additional Instructions call for appointment in 1 week SIGNATURE: Jacque Aranda RN PATIENT NAME: Eunice Vargas DATE: December 03, 2022 TIME: 11:50 AM CONTACT #: [phone]23 NoteHNO ID: [id number] Author: Brenda Manzo DO Service: General Surgery [...] This office note has been created using CellCentric, a speech recognition software program, and may [...] questions or concerns Mon-Fri 6a-5p please page [phone]. After 5pm and on Weekends and Holidays, please page [phone] if in ICU or 2008 if on RNF. SUBJECTIVE: NAEO.He has been [...] Air IANDO: Date 12/02/22699 - 12/03/22 0659 12/03/22 07 - 12/04/22 0659 Shift 3171-8720 9450-1689 7804-4246 24 Hour Total 2866-7637 4746-5802 6634-7446 24 Hour Total INTAKE PO 720 720 [...] and Naus (more content not included)...[facility] 12-02-2022 NoteHNO ID: [id number] Author: Jacque Aranda RN Service: Care Management [...] 02, 2022 TIME: 11:55 AM PAGER/CONTACT #: [phone] 12-02-2022 NoteHNO ID: [id number] Author: Nicolas Thornton DO Service: General Surgery [...] This office note has been created using CellCentric, a speech recognition software program, and may [...] questions or concerns Mon-Fri 6a-5p please page [phone]. After 5pm and on Weekends and Holidays, please page [phone] if in ICU or [phone] if on RNF. SUBJECTIVE: NAEO. Patient states [...] 0659 12/02/22 07 - 12/03/22 0659 Shift 5365-6758 5622-6274 1173-2599 24 Hour Total 5860-7820 2321-3829 3258-0824 24 Hour Total INTAKE PO 240 60 300 PO 240 60 300 IV 1000 1000 Volume (mL) (lactated ringers iv infusion) 1000 1000 Shift Total 1000 695 79 3212 OUTPUT Urine Urine Not Saved. 1 x [...] II-XII vanesa (more content not included)...[facility]04-23-2023 NoteHNO ID: [id number] Author: Nicolas Thornton DO Service: General Surgery [...] questions or concerns Mon-Fri 6a-5p please page [phone]. After 5pm and on Weekends and Holidays, please page [phone]. SUBJECTIVE: Made DIET NPO after KUB revealed [...] Therapy: Room Air IANDO: Date 11/30/22699 - 12/01/2265812/01/22699 - 12/02/2259 Shift 6363-9216 9278-4943 7118-8890 24 Hour Total 7461-7976 7266-8648 2891-7237 24 Hour Total INTAKE IV 1000 1000 [...] patient, resident team and attending Dr Lovell health promotion manager for Dr Le SIGNATURE: Nicolas Thornton DO PATIENT NAME: Eunice Vargas DATE: December 01, 2022 TIME: 7:11 AM Pager: see below Elective General Surgery (Green Surgery) Service Pager: For questions or concerns Mon-Fri 6a-5p please page [phone]. After 5pm and on Weekends and Holidays, please page [phone] if in ICU or [phone] if on RNF.[facility]04-22-2023 NoteHNO ID: [id number] Author: Nicolas Thornton DO Service: General Surgery [...] questions or concerns Mon-Fri 6a-5p please page [phone]. After 5pm and on Weekends and Holidays, please page [phone]. SUBJECTIVE: Some nausea but controlled with zofran. [...] kg/m? O2 Therapy: Room Air IANDO: Date 11/29/22699 - 11/30/22 0659 11/30/22 07 - 12/01/22 0659 Shift 5090-0585 6149-6627 8774-4297 24 Hour Total 8722-3947 2534-7528 6846-3608 24 Hour Total INTAKE PO 480 480 [...] patient, resident team and attending Dr Lovell health promotion manager for Dr Le SIGNATURE: Nicolas Thornton DO PATIENT NAME: Eunice Vargas DATE: November 30, 2022 TIME: 6:22 AM Pager: see below Elective General Surgery (Green Surgery) Service Pager: For questions or concerns Mon-Fri 6a-5p please page [phone]. After 5pm and on Weekends and Holidays, please page [phone] if in ICU or [phone] if on RNF.[facility]04-21-2023 NoteHNO ID: [id number] Author: Jacque Aranda RN Service: Care Management Author Type: Registered Nurse Type: Care Mgt Initial Assessment Filed: 11/29/2022 2:24 PM Note Text: CARE MANAGEMENT: ASSESSMENT AND DISCHARGE PLAN SERVICE DATE: November 29, 2022 SERVICE TIME: 0950 PCP: No primary care provider on file. Primary Contact: Extended Emergency Contact Information Primary Emergency Contact: PadminilinnetteSanta landrum Address: [address] [place] [address] Mobile Relation: Spouse Secondary Emergency Contact: Marissa Noble Mobile Relation: Mother Admission Status: Inpatient Insurance Provider: TARKIO GOYO PPO Discharge Planning requested by: Per Department Practice Potential Transition Plans Home Advance Directives Current Advance Directive: Health Care Power of Popcorn Machine Operator In Chart: Yes Up To Date and [...] Patient Goal(s): Be able to go home [place] of Choice Explained: [place] of Choice Given: No Reason Not Given: [...] 29, 2022 TIME: 9:11 AM CONTACT #: [phone]04-21-2023 Note HNO ID: [id number] Author: Brenda Manzo DO Service: General Surgery [...] This office note has been created using CellCentric, a speech recognition software program, and may contain errors including punctuation, grammar, spelling, gender, and inappropriate words or phrases that pertain to the sytem. Elective General Surgery (Green Surgery) Progress Note SERVICE DATE: November 29, 2022 Elective General Surgery (Green Surgery) Service Pager: For questions or concerns Fri-Fri-5p please page [phone]. After 5pm and on Weekends and Holidays, please page [phone]. SUBJECTIVE: Patient reports he feels better today. [...] kg/m? O2 Therapy: Room Air IANDO: Date 11/28/22 07 - 11/29/22 0659 11/29/22 0700 - 11/30/22 0659 Shift 3205-6986 2930-0685 3960-2659 24 Hour Total 2850-6484 2303-2546 3181-3760 24 Hour Total INTAKE PO 360 600 [...] and on Weekends and Holidays, please page [phone] if in ICU or 217 if on RNF.[facility]04-20-2023 NoteHNO ID: [id number] Author: Nicolas Thornton DO Service: General Surgery [...] This office note has been created using CellCentric, a speech recognition software program, and may contain errors including punctuation, grammar, spelling, gender, and inappropriate words or phrases that pertain to the sytem. Elective General Surgery (Green Surgery) Progress Note SERVICE DATE: November 28, 2022 Elective General Surgery (Green Surgery) Service Pager: For questions or concerns Mon-Fri 6a-5p please page [phone]. After 5pm and on Weekends and Holidays, please page [phone]. SUBJECTIVE: Admits to increased nausea this morning, [...] ICU or 2174 if on RNF.[facility]04-19-2023 NoteHNO ID: [id number] Author: Alexander Nolen MD Service: General Surgery [...] This office note has been created using CellCentric, a speech recognition software program, and may contain errors including punctuation, grammar, spelling, gender, and inappropriate words or phrases that pertain to the sytem. Elective General Surgery (Green Surgery) Progress Note SERVICE DATE: November 27, 2022 Elective General Surgery (Green Surgery) Service Pager: For questions or concerns Mon-Fri 6a-5p please page [phone]. After 5pm and on Weekends and Holidays, please page [phone]. SUBJECTIVE: Patient status post ileostomy reversal. Patient [...] O2 Therapy: Room Air IANDO: Date 11/26/22 0700 - 11/27/22 0659 11/27/22 0700 - 11/28/22 0659 Shift 7263-6845 1647-0008 4628-9180 24 Hour Total 9970-8109 8995-2952 7942-5841 24 Hour Total INTAKE PO 240 240 [...] please page [phone] if in ICU or [phone] if on RNF.[facility]04-18-2023 NoteHNO ID: [id number] Author: Jennifer Cardenas RN Service: ? Author Type: Registered Nurse Type: Nursing Progress Note Filed: 11/26/2022 2:46 PM Note Text: Family visiting at bedside for second time, pt waiting on [facility]04-18-2023 NoteHNO ID: [id number] Author: Jennifer Cardenas RN Service: ? Author Type: Registered Nurse Type: Nursing Progress Note Filed: 11/26/2022 2:45 PM Note Text: Changed dress, edges were pink, minimal bleeding to site. Gauze placed and tegadermNorthern [facility]04-18-2023 NoteHNO ID: [id number] Author: Jennifer Cardenas RN Service: ? Author Type: Registered Nurse Type: Nursing Progress Note Filed: 11/26/2022 12:02 PM Note Text: Messaged provider to change dressing, waiting for [facility]04-18-2023 NoteHNO ID: [id number] Author: Gulshan Parker APRN.FIELD TECHNICIAN Service: Anesthesiology Author Type: Nurse Market Intelligence Consultant Type: Anesthesia Procedure Notes Filed: 11/26/2022 7:48 [...] Imaging Guidance Used: No SIGNATURE: Gulshan Parker APRN.FIELD TECHNICIAN PATIENT NAME: Eunice Vargas DATE: November 26, 2022 TIME: 7:48 AM CSN: [id number] NoteHNO ID: [id number] Author: Gulshan Parker APRN.FIELD TECHNICIAN Service: Anesthesiology Author Type: Nurse Market Intelligence Consultant Type: Anesthesia Procedure Notes Filed: 11/26/2022 7:47 AM Note Text: ANESTHESIOLOGY PROCEDURE NOTE Airway General Information Procedure Start Time/Medication Administration: 11/26/2022 7:34 AM Patient location during procedure: OR Timeout Performed Pre-procedure: timeout performed Consent Obtained: Yes Patient identity confirmed: arm band and patient Staffing FIELD TECHNICIAN: Gulshan Parker APRN.FIELD TECHNICIAN Performed by: BLAINE Indications and Patient Condition [...] November 26, 2022 TIME: 7:47 AM CSN: [id number] [facility]04[facility] History and physical note* Kinza Sutton APRN.INTERNATIONAL RELATIONS PROFESSOR - 11/21/2022 10:00 AM EDT HISTORY AND [...] COVID-19 booster vaccine, age 12+ yr, bivalent ([employer]Tale[employer]mic[employer] Medicus) 07/31/2021 Imm Admin: COVID-19 original vaccine, full [...] boxes Coloplast Tacho red flat wafer # 12387 - 1 box Coloplast Tacho red drainable pouches # 87592 - 1 box Ryan small barrier rings # 7805 - 1 tube stomahesive paste # 2650 - 1 box Coloplast Elastic barrier strips # 124114 - 1 bottle stomahesive powder # 85206 - 1 box adhesive remover wipes - [...] 354 QTC Calculation (Bazett) 408 Calculated P Cubero 56 Calculated R Cubero -28 Calculated T Cubero 20 Impression NORMAL SINUS RHYTHM WITH SINUS ARRHYTHMIA POSSIBLE LEFT ATRIAL ENLARGEMENT INCOMPLETE RIGHT BUNDLE BRANCH BLOCK BORDERLINE ECG WHEN COMPARED WITH ECG OF 21-SEP-2021 15:08, VENT. RATE HAS DECREASED BY 48 BPM Confirmed by MD BERNARD PATRICIA ([id number]) on 04/02/2022 5:38:01 PM No results found for this or any previous visit (from the past 64900 hour(s)). Assessment Patient has the following medical [...] surgeon in epic CBC, BMP ordered per POPULATION HEALTH COACH I spent a total of 40 minutes on the date of the service which included preparing to see the patient, [id number] patient care, completing clinical documentation, obtaining and/or [...] 3:18 PM PAGER/CONTACT #: documented in this encounterUniversity Hospitals Tripoint Medical Center04-13-2023 Instructions* Patient Instructions* Kinza Sutton APRN.INTERNATIONAL RELATIONS PROFESSOR - 11/21/2022 9:52 AM EDT PATIENT PREOPERATIVE INSTRUCTIONS Collin Le, * has scheduled you for your procedure at this surgery center: [facility]: [phone], [address] [address] Please read below carefully for your personalized instructions. Date of Surgery:11/26/2022 Arrival Time for Surgery: - To obtain your ARRIVAL TIME for surgery, call your surgeon's office the day before your surgery. - If your surgery is scheduled for Friday, call the Friday before. Your surgeon's rug sizer will tell you what time to call [...] - Stop Vitamin E, fish oil, Ginko, Kotzebue's Wort, flax seed oil, multivitamins, CBD oil, [...] Advance Directive, please fax a copy to [phone] or email to for it to be [...] remote with youday of surgery Kinza Sutton APRN.INTERNATIONAL RELATIONS PROFESSOR documented in this encounterUniversity Hospitals Tripoint Medical Center03-21-2023 Surgical operation note* Operative Report - Daren Dimas MD - 10/29/2022 9:41 AM EDT OPERATIVE/PROCEDURE REPORT LOG ID: [id number] Surgery/Procedure Date: Incision/Procedure Start Time: 9:46 AM Incision Close/Procedure End Time: 10:13 AM Surgeon(s)/Proceduralist(s) and Continuous Miner Operator Helper(s): Surgeon(s) and Role: * Daren Dimas MD [...] 29, 2022 TIME: 10:25 AM PAGER/CONTACT #: [phone] documented in this encounterUniversity Hospitals Tripoint Medical Center03-21-2023 History and physical note * KIRSTEN Ahumada [...] drainable pouch OR - 2 boxes Coloplast Scotia red flat wafer # 60961 - 1 box Coloplast Tacho red drainable pouches # 93276 - 1 box Ryan small barrier rings # 7805 - 1 tube stomahesive paste # 2650 - 1 box Coloplast Elastic barrier strips # 571388 - 1 bottle stomahesive powder # 05829 - 1 box adhesive remover wipes - [...] which included preparing to see the patient, [id number] patient care, completing clinical documentation, and performing a medically appropriate examination. Instructions Given to Patient: Patient given verbal preop instructions and voices comprehension and compliance. SIGNATURE: KIRSTEN Ahumada PATIENT NAME: Eunice Vargas DATE: October 29, 2022 TIME: 7:21 AM PAGER/CONTACT #: documented in this encounterUniversity Hospitals Tripoint Medical Center03-14-2023 Miscellaneous Notes* Telephone Encounter - Esmer Flanagan [...] Pleaseadvise. Esmer Flanagan Ma documented in this encounterUniversity Hospitals Tripoint Medical Center03-14-2023 Surgical operation note* Operative Report - Daren Dimas MD - 10/22/2022 10:01 AM EDT OPERATIVE/PROCEDURE REPORT LOG ID: [id number] Surgery/Procedure Date: Incision/Procedure Start Time: 10:12 AM Incision Close/Procedure End Time: 10:21 AM Surgeon(s)/Proceduralist(s) and Continuous Miner Operator Helper(s): Surgeon(s) and Role: * Daren Dimas MD [...] 22, 2022 TIME: 10:23 AM PAGER/CONTACT #: [phone] documented in this encounterUniversity Hospitals Tripoint Medical Center02-22-2023 Miscellaneous Notes* Telephone Encounter - Matthew Gucci - 10/02/2022 10:52 AM EST Patient called the office and wanted to know if there was an update about getting his junction sitedilated. I told the patient I would reach out to you and give him a call back with an update. Thankred. Matthewsera Duckworth October 02, 2022 10:53 AM documented in this encounterUniversity Hospitals Tripoint Medical Center02-16-2023 NoteHNO ID: [id number] Author: Jil Penaloza RN Service: ? Author Type: Registered Nurse Type: Nursing Progress Note Filed: 09/26/2022 9:51 AM Note Text: Dr Le spoke with [facility]02-16-2023 Nurse Note* Jil Penaloza RN - 09/26/2022 9:[address] Le spoke with patient documented in this encounterUniversity Hospitals Tripoint Medical Center02-16-2023 Hospital Discharge instructions* Discharge Instr - Other [...] hours. Eat high-fiber foods or use an klip-fnb-gubsrcr fiber supplement, if needed. Rest and avoid [...] have are getting worse. documented in this encounterUniversity Hospitals Tripoint Medical Center02-16-2023 Surgical operation note* Operative Report - Collin Le MD - 09/26/2022 9:18 AM EST OPERATIVE/PROCEDURE REPORT LOG ID: [id number] Surgery/Procedure Date: Incision/Procedure Start Time: 9:25 AM Incision Close/Procedure End Time: 9:28 AM Surgeon(s)/Proceduralist(s) and Continuous Miner Operator Helper(s): Surgeon(s) and Role: * Aric Patino DO [...] 26, 2022 TIME: 9:32 AM PAGER/CONTACT #: [phone] documented in this encounterUniversity Hospitals Tripoint Medical Center02-16-2023 History and physical note * Alix Womack APRN.INTERNATIONAL RELATIONS PROFESSOR - 09/26/2022 8:00 AM EST HISTORY AND PHYSICAL EXAMINATION Eunice Wheeler Sam 1985 SERVICE DATE: 09/26/2022 SERVICE TIME: 8:36 [...] boxes Coloplast Tacho red flat wafer # 78643 - 1 box Coloplast Scotia red drainable pouches # 61610 - 1 box Ryan small barrier rings # 7805 - 1 tube stomahesive paste # 2650 - 1 box Coloplast Elastic barrier strips # 942461 - 1 bottle stomahesive powder # 44953 - 1 box adhesive remover wipes - [...] no history of chest pain, palpitations, CHF, OK, cardiac surgery or stents GI: see HPI [...] 8:36 AM PAGER/CONTACT #: documented in this encounterUniversity Hospitals Tripoint Medical Center02-06-2023 Miscellaneous Notes* Allied Health - RT Johnna(R) [...] 16, 2022 10:31 AM documented in this encounterUniversity Hospitals Tripoint Medical Center01-12-2023 History of Present illness Narrative* Cassie Richardson [...] PROCEDURE wisdom teeth LAPAROSCOPIC HEMICOLECTOMY 11/10/2021 Dr. Brandstetter LUMBAR SPINE FUSN,POST TECH 2019 lumbar spine [...] drainable pouch OR - 2 boxes Coloplast Scotia red flat wafer # 57706 - 1 box Coloplast Tacho red drainable pouches # 50396 - 1 box Swisher small barrier rings # 7805 - 1 tube stomahesive paste # 2650 - 1 box Coloplast Elastic barrier strips # 177672 - 1 bottle stomahesive powder # 32939 - 1 box adhesive remover wipes - [...] ICD9: V03.89, ICD10: Z23 (primary diagnosis) - PFI[employer]ER-B[employer] Medicus COVID-19 BIVALENT BOOSTER VACCINE, AGE 12+ YR 2. Screening for lipid disorders - ICD9: V77.91, ICD10: Z13.220 - LIPID PANEL BASIC 3. Wellness examination - ICD9: V70.0, ICD10: Z00.00 - Counseled on healthy diet and regular exercise Cassie Richardson MD documented in this encounterUniversity Hospitals Tripoint Medical Center01-09-2023 NoteHNO ID: [id number] Author: Collin Le MD Service: ? Author Type: Physician Type: Progress Notes Filed: 08/19/2022 12:00 PM Note Text: Collin Le M.D. Colon AND Rectal Surgery [address] [facility], [address] [place] [id number] SUBJECTIVE Eunice Vargas is a 36 year [...] boxes Coloplast Tacho red flat wafer # 95237 - 1 box Coloplast Scotia red drainable pouches # 05859 - 1 box Ryan small barrier rings # 7805 - 1 tube stomahesive paste # 2650 - 1 box Coloplast Elastic barrier strips # 996334 - 1 bottle stomahesive powder # 44911 - 1 box adhesive remover wipes - [...] and Affect: (more content not included)...[facility] 08-19-2022 History of Present illness Narrative* Collin Le MD - 08/19/2022 10:53 AM EST Images from the original note were not included. Collin Le M.D. Colon & Rectal Surgery [address] [facility], [address] [place] [address] SUBJECTIVE Eunice Vargas is a 36 year [...] drainable pouch OR - 2 boxes Coloplast Scotia red flat wafer # 24295 - 1 box Coloplast Tacho red drainable pouches # 01737 - 1 box Ryan small barrier rings # 7805 - 1 tube stomahesive paste # 2650 - 1 box Coloplast Elastic barrier strips # 535264 - 1 bottle stomahesive powder # 34326 - 1 box adhesive remover wipes - [...] surgery. INFORMED CONSENT Eunice Vargas Medical Record: [id number] Date: 08/19/2022 Procedure: Flexible sigmoidoscopy followed by [...] Vargas's consent. Collin Le MD Dept of [facility] SURGERY DEPARTMENT Follow up: Return for Flexible sigmoidoscopy. Collin Le M.D. Please Note: This office note has been created using CellCentric, a speech recognition software program, and may contain errors including punctuation, grammar, spelling, gender, and inappropriate words or phrases that pertain to the sytem. documented in this encounterUniversity Hospitals Tripoint Medical Center08-25-2022 History of Present illness Narrative* Asha Bey RN - 04/04/2022 10:14 AM EDT TRANSITIONAL CARE MANAGEMENT (TCM) COMMUNITY MONITORING PROGRAM Provider Action/FYI: Pt has colostomy Spoke with patient, denies pain, denies sob, no nausea/vomiting, stoma output back to normal he states, independent with ADL's SUMMARY: Pt discharged from [facility] on 04[facility]03[facility]22. Admitted for: enteritis Contact made with patient: Yes Hi my name is Asha Bey RN and I am calling from the [facility] on behalf of your PCP,Cassie Richardson MD [...] to speak with a social work steam box hand to help give you support for any [...] I will send your request to a rug sizer who will contact and assist you with [...] TCM Home Visit Referral Source of Stratification: [facility] Hospital Admission Status: Discharged Readmission Risk Score: 11 SAILAJA Score: 2 Program referral criteria met: Does not meet referral criteria Patient does not qualify for High Risk TCM Home Visit program due to: Does not meet referral criteria Patient does not quality for High Risk TCM Home Visit Program due to: Does not meet referral criteria Preferred contact number: [phone] Is patient staying somewhere other than the listed home address: No Dialysis Patient: No documented in this encounterUniversity Hospitals Tripoint Medical Center08-23-2022 History of Past illness Narrative* Problem Noted Date Diagnosed Date Resolved Date Sepsis 04/02/2022 01/17/2023 Bowel obstruction 09/21/2021 09/23/2021 documented as of this encounter (statuses as of 03/13/2023) [address]23-2022 History of Past illness Narrative* Problem Noted Date Diagnosed Date Resolved Date Sepsis 04/02/2022 01/17/2023 Bowel obstruction 09/21/2021 09/23/2021 documented as of this encounter (statuses as of 03/18/2023) [address]23-2022 History of Past illness Narrative* Problem Noted Date Diagnosed Date Resolved Date Sepsis 04/02/2022 01/17/2023 Bowel obstruction 09/21/2021 09/23/2021 documented as of this encounter (statuses as of 03/19/2023) [address]23-2022 History of Past illness Narrative* Problem Noted Date Diagnosed Date Resolved Date Sepsis 04/02/2022 01/17/2023 Bowel obstruction 09/21/2021 09/23/2021 documented as of this encounter (statuses as of 04/04/2023) [facility]08-23-[facility] History of Past illness Narrative* Problem Noted Date Diagnosed Date Resolved Date Sepsis 04/02/2022 01/17/2023 Bowel obstruction 09/21/2021 09/23/2021 documented as of this encounter (statuses as of 04/22/2023) [address]23-2022 History of Past illness Narrative* Problem Noted Date Diagnosed Date Resolved Date Sepsis 04/02/2022 01/17/2023 Bowel obstruction 09/21/2021 09/23/2021 documented as of this encounter (statuses as of 06/15/2023) [address]23-2022 History of Past illness Narrative* Problem Noted Date Diagnosed Date Resolved Date Sepsis 04/02/2022 01/17/2023 Bowel obstruction 09/21/2021 09/23/2021 documented as of this encounter (statuses as of 07/18/2023) [facility] History of Past illness Narrative* Problem Noted Date Diagnosed Date Resolved Date Sepsis 04/02/2022 01/17/2023 Bowel obstruction 09/21/2021 09/23/2021 documented as of this encounter (statuses as of 09/26/2023) [facility] History of Past illness Narrative* Problem Noted Date Diagnosed Date Resolved Date Sepsis 04/02/2022 01/17/2023 Bowel obstruction 09/21/2021 09/23/2021 documented as of this encounter (statuses as of 09/29/2023) [facility]07-28-2022 History of Present illness Narrative* Simone Becerra [...] May 2021 with extended right hemicolectomy at [facility]. He had a prolonged ileus after this and continued to have problems postoperatively. Followed with surgeon Dr. Nelson at [facility]. He had a colonoscopy 10 days [...] EGD Non-smoker, has 4 drinks/week. 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 He was given a provisional diagnosis [...] care of this patient. Simone Becerra MD [facility] F[facility] documented in this encounterUniversity Hospitals Tripoint Medical Center06-03-2022 Miscellaneous Notes* Telephone Encounter - Leonie Alejandre RN - 01/11/2022 10:50 AM EDT [place] [employer] ONE MONTH FOLLOW UP PHONE CALL PHONE [...] RN DATE: 01/11/2022 TIME: 10:50 AM CONTACT #:[phone] documented in this encounterUniversity Hospitals Tripoint Medical Center05-31-2022 Miscellaneous Notes* SN Routine - Lacey Fortune LPN - 01/08/2022 10:05 AM EDT SITUATION: Usp routine visit completed today. No one else [...] discharged from homecare. SN [facility] inquire when supplies order was sent [facility] was unable to locate any orders [...] at next SN visit documented in this encounterUniversity Hospitals Tripoint Medical Center05-24-2022 Miscellaneous Notes* SN Routine - Maile Caruso RN - 01/01/2022 12:04 PM EDT SITUATION: Usp routine visit completed today. spouse also present [...] (be specific): agency discharge documented in this encounterUniversity Hospitals Tripoint Medical Center05-23-2022 History of Present illness Narrative* Collin Le MD - 12/31/2021 9:14 AM EDT Images from the original note were not included. Collin Le M.D. Colon & Rectal Surgery [address] [facility], [address] [place] [id number] SUBJECTIVE Eunice Vargas is a 36 year old White male status post completion of abdominal colectomy with diverting loop ileostomy. HPI The patient was referred by Cassie Richardson (Abdiel) Uriah Hartman [facility] [id number] my recommendation will be sent back. He [...] drainable pouch OR - 2 boxes Coloplast Scotia red flat wafer # 65198 - 1 box Coloplast Tacho red drainable pouches # 53042 - 1 box Swisher small barrier rings # 7805 - 1 tube stomahesive paste # 2650 - 1 box Coloplast Elastic barrier strips # 551002 - 1 bottle stomahesive powder # 38743 - 1 box adhesive remover wipes - [...] This office note has been created using CellCentric, a speech recognition software program, and may contain errors including punctuation, grammar, spelling, gender, and inappropriate words or phrases that pertain to the sytem. documented in this encounterUniversity Hospitals Tripoint Medical Center05-20-2022 Miscellaneous Notes* SN PRN - Maile Caruso RN - 12/28/2021 9:00 AM EDT SITUATION: Usp PRN visit completed today. No caregiver present [...] information to order supplies documented in this encounterUniversity Hospitals Tripoint Medical Center05-19-2022 Miscellaneous Notes* SN Routine - Maile Caruso RN - 12/27/2021 12:26 PM EDT SITUATION: Usp routine visit completed today. spouse also present [...] focus on (be specific): documented in this encounterUniversity Hospitals Tripoint Medical Center05-16-2022 Miscellaneous Notes* SN Routine - Maile Caruso RN - 12/24/2021 10:56 AM EDT SITUATION: Usp routine visit completed today. spouse also present [...] focus on (be specific): documented in this encounterUniversity Hospitals Tripoint Medical Center05-13-2022 Miscellaneous Notes* SN SOC - Anna Garber RN - 12/21/2021 8:09 AM EDT SITUATION: Usp SOC visit completed today. patient reports the following: Allergies--reviewed Medications--full medication reconciliation completed and reviewed current medications Falls--None DME-Reviewed and added to chart BACKGROUND: Discharged/Referral from [facility] on 12/19/21 following treatment for Colonic [...] have pt demonstrate it. documented in this encounterUniversity Hospitals Tripoint Medical Center05-12-2022 History of Present illness Narrative* Kylee Owen RN - 12/20/2021 4:39 PM EDT TRANSITIONAL CARE MANAGEMENT (TCM) COMMUNITY MONITORING PROGRAM Provider Action/FYI: This RN [...] MANAGEMENT (TCM) COMMUNITY MONITORING PROGRAM Provider Action/FYI: TCM [facility] discharge 5-11-22- initial outreach Discharge home with [facility] through [facility] for new ostomy. [facility] shows appointment 12-21-21 at 11 AM, however, [...] RN and I am calling from the [facility] on behalf of your PCP, Cassie Richardson [...] to speak with a social work steam box hand to help give you support for any [...] I will send your request to a rug sizer who will contact and assist you with [...] TCM Home Visit Referral Source of Stratification: [facility] Hospital Admission Status: Discharged Readmission Risk [...] MANAGEMENT (TCM) COMMUNITY MONITORING PROGRAM Provider Action/FYI: [facility] discharge 12-19-21- initial outreach - Unable to reach or leave message as mailbox full. Discharge home with [facility] through [facility] for new ostomy SUMMARY: Pt discharged from on 12-19-21. Admitted for: Colonic inertia. Developed nausea, vomiting post op for elective surgery for ostomy. Contact made with patient: No - next outreach attempt will be on next business day Outreach ended Kylee Owen RN, BSN Care Coordination team documented in this encounterUniversity Hospitals Tripoint Medical Center04-20-2022 History and physical note * Natalie Shaw APRN.INTERNATIONAL RELATIONS PROFESSOR - 11/28/2021 1:40 PM EDT HISTORY AND [...] requiring medication, no history of angina, CHF, OK, cardiac surgery or stents. Denies rest pain, [...] or any previous visit (from the past 77699 hour(s)). Assessment No problem-specific Assessment & Plan notes found for this encounter. Implantable Devices: back hardware and instrumentation There is no known pertinent medical condition which may affect jaen pierre-operative course Patient denies blood thinners Assessment/Plan [...] [facility] or Procedure: Answer: [facility] metroNIDAZOLE (FLAGYL) 500 mg tablet neomycin 500 mg tablet promethazine (PHENERGAN) 25 mg tablet Ordered per surgeon in epic: Hemoglobin A1c, COVID Ordered per POPULATION HEALTH COACH in epic: BMP, CBC, type and screen METS: Climb [...] [facility] or Procedure: Answer: [facility] Planned Anesthetic: general Instructions Given to Patient: Instructions located in the after visit summary. Patient given verbal and written preop instructions and voices comprehension and compliance. SIGNATURE: Natalie Shaw APRN.CNP PATIENT NAME: Eunice Vargas DATE: November 27, 2021 TIME: 10:54 AM PAGER/CONTACT #: documented in this encounterUniversity Hospitals Tripoint Medical Center04-20-2022 Instructions* Patient Instructions* Natalie Shaw APRN.CNP - 11/28/2021 1:40 PM EDT PATIENT PREOPERATIVE INSTRUCTIONS Collin Le, * has scheduled you for your procedure at this surgery center: [facility]: [phone], [address] [place] [id number] Please read below carefully for your personalized [...] - Stop Vitamin E, fish oil, Ginko, Kotzebue's Wort, flax seed oil, multivitamins, CBD oil, [...] surgery. - YOU MUST HAVE A RESPONSIBLE COOK SUPERVISOR TAKE YOU HOME. A MEDICAL DEVICE SALES REPRESENTATIVE, CAB OR UBER COOK SUPERVISOR CANNOT BE MADEA RESPONSIBLE COOK SUPERVISOR. - We recommend that a responsible person [...] in our PACU area unless a minor, food service aide or a special circumstance. Each patient isallowed [...] surgery. Natalie Shaw APRN.ANDREW documented in this encounterUniversity Hospitals Tripoint Medical Center04-06-2022 Instructions* Patient Instructions* Collin Le MD - 11/14/2021 12:00 PM EDT documented in this encounterUniversity Hospitals Tripoint Medical Center04-06-2022 History of Present illness Narrative* Collin Le MD - 11/14/2021 10:48 AM EDT Images from the original note were not included. Collin Le M.D. Colon & Rectal Surgery [address] [facility], [address] [place] [address] SUBJECTIVE Eunice Vargas is a 35 year old White male with colonic inertia HPI The patient was referred by Cassie Hsu) Uriah Hartman [facility] [phone] my recommendation will be sent back. His [...] This office note has been created using Cell[employer], a speech recognition software program, and may contain errors including punctuation, grammar, spelling, gender, and inappropriate words or phrases that pertain to the sytem. documented in this encounterUniversity Hospitals Tripoint Medical Center02-11-2022 History of Past illness Narrative* Problem Noted Date Resolved Date Bowel obstruction 09/21/2021 09/23/2021 documented as of this encounter (statuses as of 11/14/2021) [facility] [facility] History of Past illness Narrative* Problem Noted Date Resolved Date Bowel obstruction 09/21/2021 09/23/2021 documented as of this encounter (statuses as of 11/28/2021) [address]11-2022 History of Past illness Narrative* Problem Noted Date Resolved Date Bowel obstruction 09/21/2021 09/23/2021 documented as of this encounter (statuses as of 11/28/2021) [address]11-2022 History of Past illness Narrative* Problem Noted Date Resolved Date Bowel obstruction 09/21/2021 09/23/2021 documented as of this encounter (statuses as of 12/20/2021) [address]11-2022 History of Past illness Narrative* Problem Noted Date Resolved Date Bowel obstruction 09/21/2021 09/23/2021 documented as of this encounter (statuses as of 12/21/2021) [address]11-2022 History of Past illness Narrative* Problem Noted Date Resolved Date Bowel obstruction 09/21/2021 09/23/2021 documented as of this encounter (statuses as of 12/25/2021) [address]11-2022 History of Past illness Narrative* Problem Noted Date Resolved Date Bowel obstruction 09/21/2021 09/23/2021 documented as of this encounter (statuses as of 12/28/2021) [address]11-2022 History of Past illness Narrative* Problem Noted Date Resolved Date Bowel obstruction 09/21/2021 09/23/2021 documented as of this encounter (statuses as of 12/29/2021) [address]11-2022 History of Past illness Narrative* Problem Noted Date Resolved Date Bowel obstruction 09/21/2021 09/23/2021 documented as of this encounter (statuses as of 12/31/2021) [address]11-2022 History of Past illness Narrative* Problem Noted Date Resolved Date Bowel obstruction 09/21/2021 09/23/2021 documented as of this encounter (statuses as of 01/02/2022) [address]11-2022 History of Past illness Narrative* Problem Noted Date Resolved Date Bowel obstruction 09/21/2021 09/23/2021 documented as of this encounter (statuses as of 01/08/2022) [address]11-2022 History of Past illness Narrative* Problem Noted Date Resolved Date Bowel obstruction 09/21/2021 09/23/2021 documented as of this encounter (statuses as of 01/11/2022) [address]11-2022 History of Past illness Narrative* Problem Noted Date Resolved Date Bowel obstruction 09/21/2021 09/23/2021 documented as of this encounter (statuses as of 03/07/2022) [address]11-2022 History of Past illness Narrative* Problem Noted Date Resolved Date Bowel obstruction 09/21/2021 09/23/2021 documented as of this encounter (statuses as of 04/04/2022) [address]11-2022 History of Past illness Narrative* Problem Noted Date Resolved Date Bowel obstruction 09/21/2021 09/23/2021 documented as of this encounter (statuses as of 08/19/2022) [address]11-2022 History of Past illness Narrative* Problem Noted Date Resolved Date Bowel obstruction 09/21/2021 09/23/2021 documented as of this encounter (statuses as of 08/26/2022) [address]11-2022 History of Past illness Narrative* Problem Noted Date Resolved Date Bowel obstruction 09/21/2021 09/23/2021 documented as of this encounter (statuses as of 09/06/2022) [address]11-2022 History of Past illness Narrative* Problem Noted Date Resolved Date Bowel obstruction 09/21/2021 09/23/2021 documented as of this encounter (statuses as of 09/06/2022) [address]11-2022 History of Past illness Narrative* Problem Noted Date Resolved Date Bowel obstruction 09/21/2021 09/23/2021 documented as of this encounter (statuses as of 09/17/2022) [address]11-2022 History of Past illness Narrative* Problem Noted Date Resolved Date Bowel obstruction 09/21/2021 09/23/2021 documented as of this encounter (statuses as of 09/26/2022) [address]11-2022 History of Past illness Narrative* Problem Noted Date Resolved Date Bowel obstruction 09/21/2021 09/23/2021 documented as of this encounter (statuses as of 09/27/2022) [address]11-2022 History of Past illness Narrative* Problem Noted Date Resolved Date Bowel obstruction 09/21/2021 09/23/2021 documented as of this encounter (statuses as of 10/03/2022) [address]11-2022 History of Past illness Narrative* Problem Noted Date Resolved Date Bowel obstruction 09/21/2021 09/23/2021 documented as of this encounter (statuses as of 10/16/2022) [address]11-2022 History of Past illness Narrative* Problem Noted Date Resolved Date Bowel obstruction 09/21/2021 09/23/2021 documented as of this encounter (statuses as of 10/22/2022) [address]11-2022 History of Past illness Narrative* Problem Noted Date Resolved Date Bowel obstruction 09/21/2021 09/23/2021 documented as of this encounter (statuses as of 10/23/2022) [address]11-2022 History of Past illness Narrative* Problem Noted Date Resolved Date Bowel obstruction 09/21/2021 09/23/2021 documented as of this encounter (statuses as of 10/30/2022) [address]11-2022 History of Past illness Narrative* Problem Noted Date Resolved Date Bowel obstruction 09/21/2021 09/23/2021 documented as of this encounter (statuses as of 11/22/2022) [facility] History of Past illness Narrative* Problem Noted Date Resolved Date Bowel obstruction 09/21/2021 09/23/2021 documented as of this encounter (statuses as of 12/11/2022) [facility]11-06-[facility]21 History of Present illness Narrative* Sanna Troy, RT(R) - 06/16/2021 8:00 AM EDT Radiology [...] 16, 2021 8:14 AM [facility] of Present illness Narrative* Sanna Troy [...] 14, 2021 9:35 AM [facility] of Present illness Narrative* Evy Daigle [...] 12, 2021 10:12 AM [facility] [place] [facility] Diagnosis Colonic inertia- Primary Other functional disorders of intestine Ventral hernia without obstruction or gangrene Ventral hernia, unspecified, without mention of obstruction or gangrene Colonic inertia Other functional disorders of intestine [facility] [place] [facility]* Diagnosis Preop examination- Primary Preoperative examination, unspecified Colonic inertia Other functional disorders of intestine Colonic inertia Other functional disorders of intestine [facility] [place] [facility]* Diagnosis Other specified counseling- Primary Colonic inertia Other functional disorders of intestine [facility] [place] [facility]* Diagnosis Colonic inertia- Primary Other functional disorders of intestine Ventral hernia without obstruction or gangrene Ventral hernia, unspecified, without mention of obstruction or gangrene documented [facility] [place] [facility]* Diagnosis Colonic inertia Other functional disorders of intestine [facility] [place] [facility]* Diagnosis Colonic inertia- Primary Other functional disorders of intestine documented [facility] [place] [facility]* Diagnosis Encounter for immunization- Primary Need for other specified prophylactic vaccination against single bacterial disease Screening for lipid disorders Wellness examination documented [facility]* Diagnosis Colonic inertia- Primary Other functional disorders of intestine Colonic inertia Other functional disorders of intestine documented [facility] [place] [facility]* Diagnosis Colonic inertia- Primary Other functional disorders of intestine Colonic inertia Other functional disorders of intestine [facility] [place] [facility]* Diagnosis Colonic inertia Other functional disorders of intestine Colonic inertia Other functional disorders of intestine documented [facility] [place] [facility]* Diagnosis Rectal stricture- Primary Stenosis of rectum and anus Colonic inertia Other functional disorders of intestine documented [facility] [place] [facility]* Diagnosis Colonic inertia Other functional disorders of intestine Colonic inertia Other functional disorders of intestine documented [facility] [place] [facility]* Diagnosis Rectal stenosis- Primary Stenosis of rectum and anus documented in this [facility] [place] [facility]* Diagnosis Rectal stenosis Stenosis of rectum and anus documented in this encounter [facility] note* Diagnosis Rectal stricture Stenosis of rectum and anus documented in this encounter [facility] note* Diagnosis Pre-op exam- Primary Preoperative examination, unspecified Colonic inertia Other functional disorders of intestine Colonic inertia Other functional disorders of intestine documented in this encounter [facility] note* Diagnosis Colonic inertia- Primary Other functional disorders of intestine documented in this encounter [facility] note* Diagnosis Acute left-sided low back pain with left-sided sciatica- Primary Lumbar radiculopathy- Primary Thoracic or lumbosacral neuritis or radiculitis, unspecified documented in this encounter [facility] note* Diagnosis Lumbar radiculopathy- Primary Thoracic or lumbosacral neuritis or radiculitis, unspecified Spinal stenosis of lumbar region without neurogenic claudication Spinal stenosis, lumbar region, without neurogenic claudication documented [facility] this [facility] [place] [facility]* Diagnosis Lumbar radiculopathy Thoracic or lumbosacral neuritis or radiculitis, unspecified documented in this encounter [facility] note* Diagnosis Lumbar radiculopathy- Primary Thoracic or lumbosacral neuritis or radiculitis, unspecified documented in this encounter [facility] note* Diagnosis Spinal stenosis of lumbar region without neurogenic claudication Spinal stenosis, lumbar region, without neurogenic claudication documented in this encounter [facility] note* Diagnosis Acute cough- Primary documented in this encounter [facility] note* Diagnosis Screening for lipid disorders- Primary Wellness examination Screening for diabetes mellitus Colonic inertia Other functional disorders of intestine documented in this encounter [facility] note* Diagnosis Pre-op exam- Primary Preoperative examination, unspecified Colonic inertia Other functional disorders of intestine Colon stricture (HCC) Unspecified intestinal obstruction Pre-op exam Preoperative examination, unspecified Nausea- Primary Nausea alone Colonic inertia Other functional disorders of intestine Ileus following gastrointestinal surgery (HCC) Other digestive system complications Generalized abdominal pain Abdominal pain, generalized Colon stricture (HCC) Unspecified intestinal obstruction documented in this encounter [facility] note* Diagnosis Pre-op exam- Primary Preoperative examination, unspecified Colonic inertia Other functional disorders of intestine Colon stricture (HCC) Unspecified intestinal obstruction Pre-op exam Preoperative examination, unspecified Acute cough documented in this encounter [facility] note* Diagnosis Pre-op exam- Primary Preoperative examination, unspecified Colonic inertia Other functional disorders of intestine Colon stricture (HCC) Unspecified intestinal obstruction Pre-op exam Preoperative examination, unspecified Acute left-sided low back pain with left-sided sciatica documented in this encounter [facility] note* Diagnosis Pre-op exam- Primary Preoperative examination, unspecified Colonic inertia Other functional disorders of intestine Colon stricture (HCC) Unspecified intestinal obstruction Pre-op exam Preoperative examination, unspecified Colonic inertia- Primary Other functional disorders of intestine Ileus following gastrointestinal surgery (HCC) Other digestive system complications documented in this encounter [facility] note* Diagnosis Pre-op exam- Primary Preoperative examination, unspecified Colonic inertia Other functional disorders of intestine Colon stricture (HCC) Unspecified intestinal obstruction Pre-op exam Preoperative examination, unspecified URI, acute Acute upper respiratory infections of unspecified site documented in this encounter [facility] note* Diagnosis Pre-op exam- Primary Preoperative examination, unspecified Colonic inertia Other functional disorders of intestine Status post reversal of ileostomy Colon stricture (HCC) Unspecified intestinal obstruction Pre-op exam Preoperative examination, unspecified documented [facility] [place] [facility]* Diagnosis Volvulus (HCC) Volvulus documented in this encounter [facility] note* Diagnosis Pre-op exam- Primary Preoperative examination, unspecified Colonic inertia Other functional disorders of intestine Colon stricture (HCC) Unspecified intestinal obstruction Pre-op exam Preoperative examination, unspecified URI, acute- Primary Acute upper respiratory infections of unspecified site documented in this encounter [facility] note* Diagnosis Onset Date Resolution Status Admit Date Diarrhea acute December 22, 2024 7:47am Food allergy acute December 22 7:47am LUQ pain acute December 22, 2024 7:47am RLQ abdominal pain acute December 222024 7:47am [facility] Work Phone: Evaluation note* Diagnosis Pre-op exam- Primary Preoperative examination, unspecified Colonic inertia Other functional disorders of intestine Colon stricture (HCC) Unspecified intestinal obstruction Pre-op exam Preoperative examination, unspecified Viral URI with cough- Primary Acute upper respiratory infections of unspecified site SERVIN (dyspnea on exertion) Other dyspnea and respiratory abnormality Diarrhea, unspecified type documented [facility] this [facility] Discharge instructionsAmbulatory Orders* Allergy & Immunology Location: None Selected [facility] Work Phone: Patient's home Plan of care note* Visit Details Visit Type -SN ROUTINE Discipline -Usp Problems Problem Description Start Date Status Goals [...] plenty of water [facility] Visit Details Visit Type -SN PRN VISIT Discipline -Usp Problems Problem Description Start Date Status Goals [...] plenty of water documented in this encounter [facility]'s home Plan of care note* Visit Details Visit Type -SN ROUTINE Discipline -Usp Problems Problem Description Start Date Status Goals [...] plenty of water [facility]* Visit Details Visit Type -SN ROUTINE Discipline -Usp Problems Problem Description Start Date Status Goals [...] and ostomy precautions. documented in this encounter [facility] for referral (narrative)* Diagnostic Procedure Only (Routine) - Pending Review Specialty Diagnoses / Procedures Referred By Contac t Referred To Contact XR IMAGING Diagnoses Colonic inertia Procedures XR COLON SINGLE CONTRAST RADIOLOGIC EXAM COLON SINGLE CONTRAST STUDY Collin Le MD [address] [address] Xr Imaging Referral ID Status Reason Start Date Expiration Date Visits Requested Visits Authorized [id number] Pending Review Auto-Generat ed Referral 08/19/2022 09/18/2023 1 1 [facility] for referral (narrative)* Outpatient Procedure (Routine) - Pending Review Specialty Diagnoses / Procedures [facility] Diagnoses Colonic inertia Procedures SIGMOIDOSCOPY SIGMOIDOSCOPY FLX DX W/COLLJ SPEC BR/WA IF PFRMD Collin Le MD [address] [address] [facility] [address] [place] [address] Referral ID Status Reason Start Date Expiration Date Visits Requested Visits Authorized [id number] Pending Review Auto-Generat ed Referral 09/06/2022 09/06/2023 1 1 [facility] for referral (narrative)* Diagnostic Procedure Only (Routine) - Closed Specialty Diagnoses / Procedures Referred By Contac t Referred To Contact XR IMAGING Diagnoses Colonic inertia Procedures XR COLON SINGLE CONTRAST RADIOLOGIC EXAM COLON SINGLE CONTRAST STUDY Collin Le MD [address] [address] Xr Imaging Referral ID Status Reason Start Date Expiration Date V isits Requested Visits Authorized [id number] Closed Auto-Generate d Referral 08/19/2022 09/18/2023 1 1 [facility] for referral (narrative)* Outpatient Procedure (Routine) - Pending Review Specialty Diagnoses / Procedures Referred By Contac t Referred To Contact [facility] Diagnoses Rectal stricture Procedures SIGMOIDOSCOPY SIGMOIDOSCOPY FLX DX W/COLLJ SPEC BR/WA IF Daren Coronado MD [address] [facility] [place] [address] [address] Referral ID Status Reason Start Date Expiration Date Visits Requested Visits Authorized [id number] Pending Review Auto-Generat ed Referral 09/26/2022 09/26/2023 1 1 [facility] for referral (narrative)* Outpatient Procedure (Routine) - Closed Specialty Diagnoses / Procedures Referred By Contac t Referred To Contact Diagnoses Colonic inertia Procedures SIGMOIDOSCOPY SIGMOIDOSCOPY FLX DX W/COLLJ SPEC BR/WA IF Collin Moreira MD 1 [facility] [address] [place] [address] [place] [address] Referral ID Status Reason Start Date Expiration Date V isits Requested Visits Authorized [id number] Closed Auto-Generate d Referral 09/06/2022 09/06/2023 1 1 [facility] for referral (narrative)* Outpatient Procedure (Routine) - Authorized Specialty Diagnoses / Procedures Referred By Contac t Referred To Contact [facility] [place] Diagnoses Rectal stenosis Procedures SIGMOIDOSCOPY SIGMOIDOSCOPY FLX DX W/COLLJ SPEC BR/WA IF Daren Coronado MD [address] [place] [facility] [place] [address] [address] Referral ID Status Reason Start Date Expiration Date Visits Requested Visits Authorized [id number] Authorized Auto-Generat ed Referral 10/16/2022 10/17/2023 1 1 [facility] for referral (narrative)* Outpatient Procedure (Routine) - Closed Specialty Diagnoses / Procedures Referred By Contac t Referred To Contact [facility] Diagnoses Rectal stenosis Procedures SIGMOIDOSCOPY SIGMOIDOSCOPY FLX DX W/COLLJ SPEC BR/WA IF Daren Coronado MD [address] [place] [place] [address] [facility] [address] [place] [id number] Referral ID Status Reason Start Date Expiration Date V isits Requested Visits Authorized [id number] Closed Auto-Generate d Referral 10/16/2022 10/17/2023 1 1 [facility] for referral (narrative)* Outpatient Procedure (Routine) - Closed Specialty Diagnoses / Procedures [facility] Diagnoses Rectal stricture Procedures SIGMOIDOSCOPY SIGMOIDOSCOPY FLX DX W/COLLJ SPEC BR/WA IF Daren Coronado MD [address] [place] [place] [address] [address] Referral ID Status Reason Start Date Expiration Date V isits Requested Visits Authorized [id number] Closed Auto-Generate d Referral 10/23/2022 10/24/2023 1 1 [facility] for referral (narrative)* Diagnostic Procedure Only (Urgent) - Closed Specialty Diagnoses / Procedures [facility] Ref[facility] To Contact XR IMAGING Diagnoses Acute left-sided low back pain with left-sided sciatica Procedures XR LUMBAR GENERAL 3V AP/LAT/L5-S1 RADEX SPINE LUMBOSACRAL 2/3 VIEWS [facility] [address] [place] [address] [place] [address] Referral ID Status Reason Start Date Expiration Date V isits Requested Visits Authorized [id number] Closed Auto-Generate d Referral 03/13/2023 04/11/2024 1 1 [facility] for referral (narrative)* Diagnostic Procedure Only (Routine) - Closed Specialty Diagnoses / Procedures Referred By Contac t Referred To Contact XR IMAGING Diagnoses Status post reversal of ileostomy Procedures XR ABDOMEN 3V KUB W/OBLIQUES RADIOLOGIC EXAM ABDOMEN 3+ VIEWS Collin Le MD [address] [address] [place] [address] Referral ID Status Reason Start Date Expiration Date V isits Requested Visits Authorized [id number] Closed Auto-Generate d Referral 12/06/2022 01/02/2024 1 1 T [facility] for referral (narrative)* Diagnostic Procedure Only (Routine) - Closed Specialty Diagnoses / Procedures Referred By Contac t Referred To Contact XR IMAGING Diagnoses Volvulus (HCC) Procedures XR COLONIC TRANSIT IMAGE 1 X-RAY ABD SINGLE AP VIEW Monroe Perry MD [address] [place] [address] [place] [address] Referral ID Status Reason Start Date Expiration Date V isits Requested Visits Authorized [id number] Closed Auto-Generate d Referral 06/07/2021 07/07/[phone] [facility] for referral (narrative)* Diagnostic Procedure Only (Routine) - Closed Specialty Diagnoses / Procedures Referred By Contac t Referred To Contact XR IMAGING Diagnoses Volvulus (HCC) Procedures XR COLONIC TRANSIT IMAGE 2 X-RAY ABD SINGLE AP VIEW Monroe Perry MD [address] [place] [id number] [place] [address] Referral ID Status Reason Start Date Expiration Date V isits Requested Visits Authorized [id number] Closed Auto-Generate d Referral 06/07/2021 07/07/2022 1 1 [facility] for referral (narrative)* Diagnostic Procedure Only (Routine) - Closed Specialty Diagnoses / Procedures Referred By Contac t Referred To Contact XR IMAGING Diagnoses Volvulus (HCC) Procedures XR COLONIC TRANSIT IMAGE 3 X-RAY ABD SINGLE AP VIEW Monroe Perry MD [address] [place] [address] [facility] [place] [address] Referral ID Status Reason Start Date Expiration Date V isits Requested Visits Authorized [id number] Closed Auto-Generate d Referral 06/07/2021 07/07/2022 1 1 [facility] for referral (narrative)No reason for referral information [facility]ol[facility] Work Phone: Reason for visit Narrative* Diagnostic Procedure Only (Routine) - Closed Specialty Diagnoses / Procedures Referred By Contac t Referred To Contact XR IMAGING Diagnoses Colonic inertia Procedures XR COLON SINGLE CONTRAST RADIOLOGIC EXAM COLON SINGLE CONTRAST STUDY Collin Le MD 1 [facility] [address] [place] [address] Xr Imaging Referral ID Status Reason Start Date Expiration Date V isits Requested Visits Authorized [id number] Closed Auto-Generate d Referral 08/19/2022 09/18/2023 1 1 [facility] for visit Narrative* Outpatient Procedure (Routine) - Closed Specialty Diagnoses / Procedures Referred By Contac t Referred To Contact Diagnoses Colonic inertia Procedures SIGMOIDOSCOPY SIGMOIDOSCOPY FLX DX W/COLLJ SPEC BR/WA IF PFRMD Collin Le MD 1 [facility] [address] [place] [address] [facility] [address] [place] [address] Referral ID Status Reason Start Date Expiration Date V isits Requested Visits Authorized [id number] Closed Auto-Generate d Referral 09/06/2022 09/06/2023 1 1 [facility] for visit Narrative* Outpatient Procedure (Routine) - Closed Specialty Diagnoses / Procedures Referred By Contac t Referred To [facility] [place] [place] Diagnoses Rectal stenosis Procedures SIGMOIDOSCOPY SIGMOIDOSCOPY FLX DX W/COLLJ SPEC BR/WA IF Daren Coronado MD [address] [place] [address] [address] Referral ID Status Reason Start Date Expiration Date V isits Requested Visits Authorized [id number] Closed Auto-Generate d Referral 10/16/2022 10/17/2023 1 1 [facility] for visit Narrative* Outpatient Procedure (Routine) - Closed Specialty Diagnoses / Procedures Referred By Contac t Referred To Contact [facility] Diagnoses Rectal stricture Procedures SIGMOIDOSCOPY SIGMOIDOSCOPY FLX DX W/COLLJ SPEC BR/WA IF Daren Coronado MD [address] [place] [address] [address] Referral ID Status Reason Start Date Expiration Date V isits Requested Visits Authorized [id number] Closed Auto-Generate d Referral 10/23/2022 10/24/2023 1 1 [facility] for visit Narrative* Diagnostic Procedure Only (Routine) - Closed Specialty Diagnoses / Procedures Referred By Contac t Referred To Contact XR IMAGING Diagnoses Lumbar radiculopathy Procedures XR LUMBAR LIMITED 2V FLEX/EXT RADEX SPINE LUMBOSACRAL 2/3 VIEWS Rolando Eugene, [address] [place] [address] Xr Imaging Referral ID Status Reason Start Date Expiration Date V isits Requested Visits Authorized [id number] Closed Auto-Generate d Referral 03/13/2023 04/11/2024 1 1 [facility] for visit Narrative* Diagnostic Procedure Only (Urgent) - Closed Specialty Diagnoses / Procedures Referred By Contac t Referred To Contact XR IMAGING Diagnoses Acute left-sided low back pain with left-sided sciatica Procedures XR LUMBAR GENERAL 3V AP/LAT/L5-S1 RADEX SPINE LUMBOSACRAL 2/3 VIEWS [facility] [address] [place] [address] [place] [address] Referral ID Status Reason Start Date Expiration Date V isits Requested Visits Authorized [id number] Closed Auto-Generate d Referral 03/13/2023 04/11/2024 1 1 [facility] for visit Narrative* Diagnostic Procedure Only (Routine) - Closed Specialty Diagnoses / Procedures Referred By Contac t Referred To Contact XR IMAGING Diagnoses Status post reversal of ileostomy Procedures XR ABDOMEN 3V KUB W/OBLIQUES RADIOLOGIC EXAM ABDOMEN 3+ VIEWS Collin Le MD [address] [address] [place] [address] Referral ID Status Reason Start Date Expiration Date V isits Requested Visits Authorized [id number] Closed Auto-Generate d Referral 12/06/2022 01/02/2024 1 1 [facility] for visit Narrative* Diagnostic Procedure Only (Routine) - Closed Specialty Diagnoses / Procedures Referred By Contac t Referred To Contact XR IMAGING Diagnoses Volvulus (HCC) Procedures XR COLONIC TRANSIT IMAGE 1 X-RAY ABD SINGLE AP VIEW Monroe Perry MD [address] [place] [address] [place] [address] Referral ID Status Reason Start Date Expiration Date V isits Requested Visits Authorized [id number] Closed Auto-Generate d Referral 06/07/2021 07/07/2022 99 99 [facility] for visit Narrative* Diagnostic Procedure Only (Routine) - Closed Specialty Diagnoses / Procedures Referred By Contac t Referred To Contact XR IMAGING Diagnoses Volvulus (HCC) Procedures XR COLONIC TRANSIT IMAGE 2 X-RAY ABD SINGLE AP VIEW Monroe Perry MD [address] [place] [address] [place] [address] Referral ID Status Reason Start Date Expiration Date V isits Requested Visits Authorized [id number] Closed Auto-Generate d Referral 06/07/2021 07/07/2022 1 1 [facility] for visit Narrative* Diagnostic Procedure Only (Routine) - Closed Specialty Diagnoses / Procedures Referred By Contac t Referred To Contact XR IMAGING Diagnoses Volvulus (HCC) Procedures XR COLONIC TRANSIT IMAGE 3 X-RAY ABD SINGLE AP VIEW Monroe Perry MD [address] [place] [address] [place] [address] Referral ID Status Reason Start Date Expiration Date V isits Requested Visits Authorized [id number] Closed Auto-Generate d Referral 06/07/2021 07/07/2022 1 1 [facility] Summary Purpose Family History No Family History Records FoundNo Family History Records FoundNo Family History Records FoundNo Family History Records FoundNo Family History Records FoundNo Family History Records FoundNo Family History Records Found Advance Directives No Advanced Directives Records FoundDocuments on File Type Date Recorded 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 Advance Directive(s) 09/21/2021 3:30 PM Advance Directive(s) 07/19/2019 5:57 AM Advance Directive(s) 07/19/2019 6:01 AM Advance Directive(s) 07/06/2019 9:13 AM Documents on File Type Date Recorded 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 No August 14, 2023 10:15pm Advance Directive Response Recorded Date/ Time Do you have a Healthcare Power of Popcorn Machine Operator? No March 30, 2025 10:02am Medications Administered [...] 40 mg, INTRALESIONAL, ONCE, 1 dose, On Fri10/29/22 at 0830 Given 10/29/2022 8:30 AM EDT 40 mg Reason for Referral Specialty Diagnoses / Procedures Referred By Merissa landrum Referred To Contact [facility] Diagnoses Acute left-sided low back pain with left-sided sciatica Procedures ESTABLISH WITH PRIMARY CARE NEW PATIENT OFFICE/OUTPATIENT [facility] MDM 60-74 MINUTES Xiomara Thompson PA-C [address] [place] [address] [facility] [address] [place] [address] Referral ID Status Reason Start Date Expiration Date V isits Requested Visits Authorized [id number] Closed PCP Requested Referral 03/13/2023 03/12/2024 1 1 Specialty Diagnoses / Procedures Referred By Contac t Referred To Contact [facility] [place] Diagnoses Acute left-sided low back pain with left-sided sciatica Procedures [facility]SULT [facility] OFFICE/OUTPATIENT [facility] MDM 60-74 MINUTES [facility] [address] [place] [address] Referral ID Status Reason Start Date Expiration Date Visits Requested Visits Authorized [id number] Authorized PCP Requested Referral 03/13/2023 03/12/2024 1 1 Specialty Diagnoses / Procedures Referred By Contac t Referred To Contact XR IMAGING Diagnoses Acute left-sided low back pain with left-sided sciatica Procedures XR LUMBAR GENERAL 3V AP/LAT/L5-S1 RADEX SPINE LUMBOSACRAL 2/3 VIEWS [facility] [address] [place] [address] Xr Imaging Referral ID Status Reason Start Date Expiration Date V isits Requested Visits Authorized [id number] Closed Auto-Generate d Referral 03/13/2023 04/11/2024 1 1 Specialty Diagnoses / Procedures Referred By Contac t Referred To Contact MR IMAGING Diagnoses Spinal stenosis of lumbar region without neurogenic claudication Procedures MRI LUMBAR SPINE WO IVCON MRI SPINAL CANAL LUMBAR W/O CONTRAST MATERIAL Rolando Eugene, DO [address] [place] [address] Mr Imaging Referral ID Status Reason Start Date Expiration Date Visits Requested Visits Authorized [id number] Authorized Auto-Generat ed Referral 03/18/2023 04/16/2024 1 1 Specialty Diagnoses / Procedures Referred By Contac t Referred To Contact XR IMAGING Diagnoses Lumbar radiculopathy Procedures XR LUMBAR LIMITED 2V FLEX/EXT RADEX SPINE LUMBOSACRAL 2/3 VIEWS Rolando Eugene, DO [address] [place] [address] Xr Imaging Referral ID Status Reason Start Date Expiration Date V isits Requested Visits Authorized [id number] Closed Auto-Generate d Referral 03/13/2023 04/11/2024 1 1 Specialty Diagnoses / Procedures Referred By Contac t Referred To Contact MR IMAGING Diagnoses Spinal stenosis of lumbar region without neurogenic claudication Procedures MRI LUMBAR SPINE WO IVCON MRI SPINAL CANAL LUMBAR W/O CONTRAST MATERIAL Rolando Eugene, DO [address] [place] [address] [place] [address] Referral ID Status Reason Start Date Expiration Date V isits Requested Visits Authorized [id number] Closed Auto-Generate d Referral 03/18/2023 04/16/2024 1 1 Specialty Diagnoses / Procedures Referred By Contac t Referred To Contact CT IMAGING Diagnoses Nausea Colonic inertia Ileus following gastrointestinal surgery (HCC) Generalized abdominal pain Colon stricture (HCC) Procedures CT ABD/PEL W IVCON CT ABD & PELVIS W/CONTRAST Jesus Raza APRN.INTERNATIONAL RELATIONS PROFESSOR [address] [place] [address] [place] [address] Referral ID Status Reason Start Date Expiration Date Visits Requested Visits Authorized [id number] New Request Auto-Generat ed Referral 04/20/2024 05/20/2025 1 1 Specialty Diagnoses / Procedures Referred By Contac t Referred To Contact Gastroenterology Diagnoses Colonic inertia Ileus following gastrointestinal surgery (HCC) Procedures CONSULT TO GASTROENTEROLOGY Jesus Raza APRN.INTERNATIONAL RELATIONS PROFESSOR [address] [place] [address] FriendTom, DO [address] [address] Referral ID Status Reason Start Date Expiration Date Visits Requested Visits Authorized [id number] Ref Not Required PCP Requested Referral 04/29/2024 [...] section and content) DATE CREATED AUTHOR 01/04/2020 [facility] DATE CREATED AUTHOR AUTHOR'S ORGANIZ ATION 05/22/2021 [facility] DATE CREATED AUTHOR AUTHOR'S ORGANIZ ATION 06/09/2021 [facility] DATE CREATED AUTHOR AUTHOR'S ORGANIZ ATION 12/11/2022 [facility] DATE CREATED AUTHOR AUTHOR'S ORGANIZ ATION 04/23/2023 [facility] DATE CREATED AUTHOR AUTHOR'S ORGANIZ ATION 04/27/2025 [facility] DATE CREATED AUTHOR AUTHOR'S ORGANIZ ATION 04/27/2025 [facility] Source Comments (unrecognize d section and content) In the event this informatio n is protected by the Federal Confidentiality of Alcohol and Drug Abuse Patient Records regulations: The Federal rules restrict any use of the information to criminally investigate or prosecute any alcohol or drug abuse patient.[facility] Center[facility] the event this information is protected by the Federal Confidentiality of Alcohol and Drug Abuse Patient Records regulations: The Federal rules restrict any use of the information to criminally investigate or prosecute any alcohol or drug abuse patient.[facility] CenterIn the event this information is protected by the Federal Confidentiality of Alcohol and Drug Abuse Patient Records regulations: The Federal rules restrict any use of the information to criminally investigate or prosecute any alcohol or drug abuse patient.[facility] CenterIn the event this information is protected by the Federal Confidentiality of Alcohol and Drug Abuse Patient Records regulations: The Federal rules restrict any use of the information to criminally investigate or prosecute any alcohol or drug abuse patient.[facility] CenterIn the event this information is protected by the Federal Confidentiality of Alcohol and Drug Abuse Patient Records regulations: The Federal rules restrict any use of the information to criminally investigate or prosecute any alcohol or drug abuse patient.[facility] CenterIn the event this information is protected by the Federal Confidentiality of Alcohol and Drug Abuse Patient Records regulations: The Federal rules restrict any use of the information to criminally investigate or prosecute any alcohol or drug abuse patient.[facility] CenterIn the event this information is protected by the Federal Confidentiality of Alcohol and Drug Abuse Patient Records regulations: The Federal rules restrict any use of the information to criminally investigate or prosecute any alcohol or drug abuse patient.[facility] CenterIn the event this information is protected by the Federal Confidentiality of Alcohol and Drug Abuse Patient Records regulations: The Federal rules restrict any use of the information to criminally investigate or prosecute any alcohol or drug abuse patient.[facility] CenterIn the event this information is protected by the Federal Confidentiality of Alcohol and Drug Abuse Patient Records regulations: The Federal rules restrict any use of the information to criminally investigate or prosecute any alcohol or drug abuse patient.[facility] CenterIn the event this information is protected by the Federal Confidentiality of Alcohol and Drug Abuse Patient Records regulations: The Federal rules restrict any use of the information to criminally investigate or prosecute any alcohol or drug abuse patient.[facility] CenterIn the event this information is protected by the Federal Confidentiality of Alcohol and Drug Abuse Patient Records regulations: The Federal rules restrict any use of the information to criminally investigate or prosecute any alcohol or drug abuse patient.[facility] CenterIn the event this information is protected by the Federal Confidentiality of Alcohol and Drug Abuse Patient Records regulations: The Federal rules restrict any use of the information to criminally investigate or prosecute any alcohol or drug abuse patient.[facility] CenterIn the event this information is protected by the Federal Confidentiality of Alcohol and Drug Abuse Patient Records regulations: The Federal rules restrict any use of the information to criminally investigate or prosecute any alcohol or drug abuse patient.[facility] CenterIn the event this information is protected by the Federal Confidentiality of Alcohol and Drug Abuse Patient Records regulations: The Federal rules restrict any use of the information to criminally investigate or prosecute any alcohol or drug abuse patient.[facility] CenterIn the event this information is protected by the Federal Confidentiality of Alcohol and Drug Abuse Patient Records regulations: The Federal rules restrict any use of the information to criminally investigate or prosecute any alcohol or drug abuse patient.[facility] CenterIn the event this information is protected by the Federal Confidentiality of Alcohol and Drug Abuse Patient Records regulations: The Federal rules restrict any use of the information to criminally investigate or prosecute any alcohol or drug abuse patient.[facility] CenterIn the event this information is protected by the Federal Confidentiality of Alcohol and Drug Abuse Patient Records regulations: The Federal rules restrict any use of the information to criminally investigate or prosecute any alcohol or drug abuse patient.[facility] CenterIn the event this information is protected by the Federal Confidentiality of Alcohol and Drug Abuse Patient Records regulations: The Federal rules restrict any use of the information to criminally investigate or prosecute any alcohol or drug abuse patient.[facility] CenterIn the event this information is protected by the Federal Confidentiality of Alcohol and Drug Abuse Patient Records regulations: The Federal rules restrict any use of the information to criminally investigate or prosecute any alcohol or drug abuse patient.[facility] CenterIn the event this information is protected by the Federal Confidentiality of Alcohol and Drug Abuse Patient Records regulations: The Federal rules restrict any use of the information to criminally investigate or prosecute any alcohol or drug abuse patient.[facility] CenterIn the event this information is protected by the Federal Confidentiality of Alcohol and Drug Abuse Patient Records regulations: The Federal rules restrict any use of the information to criminally investigate or prosecute any alcohol or drug abuse patient.[facility] CenterIn the event this information is protected by the Federal Confidentiality of Alcohol and Drug Abuse Patient Records regulations: The Federal rules restrict any use of the information to criminally investigate or prosecute any alcohol or drug abuse patient.[facility] CenterIn the event this information is protected by the Federal Confidentiality of Alcohol and Drug Abuse Patient Records regulations: The Federal rules restrict any use of the information to criminally investigate or prosecute any alcohol or drug abuse patient.[facility] CenterIn the event this information is protected by the Federal Confidentiality of Alcohol and Drug Abuse Patient Records regulations: The Federal rules restrict any use of the information to criminally investigate or prosecute any alcohol or drug abuse patient.[facility] CenterIn the event this information is protected by the Federal Confidentiality of Alcohol and Drug Abuse Patient Records regulations: The Federal rules restrict any use of the information to criminally investigate or prosecute any alcohol or drug abuse patient.[facility] CenterIn the event this information is protected by the Federal Confidentiality of Alcohol and Drug Abuse Patient Records regulations: The Federal rules restrict any use of the information to criminally investigate or prosecute any alcohol or drug abuse patient.[facility] CenterIn the event this information is protected by the Federal Confidentiality of Alcohol and Drug Abuse Patient Records regulations: The Federal rules restrict any use of the information to criminally investigate or prosecute any alcohol or drug abuse patient.[facility] CenterIn the event this information is protected by the Federal Confidentiality of Alcohol and Drug Abuse Patient Records regulations: The Federal rules restrict any use of the information to criminally investigate or prosecute any alcohol or drug abuse patient.[facility] CenterIn the event this information is protected by the Federal Confidentiality of Alcohol and Drug Abuse Patient Records regulations: The Federal rules restrict any use of the information to criminally investigate or prosecute any alcohol or drug abuse patient.[facility] CenterIn the event this information is protected by the Federal Confidentiality of Alcohol and Drug Abuse Patient Records regulations: The Federal rules restrict any use of the information to criminally investigate or prosecute any alcohol or drug abuse patient.[facility] CenterIn the event this information is protected by the Federal Confidentiality of Alcohol and Drug Abuse Patient Records regulations: The Federal rules restrict any use of the information to criminally investigate or prosecute any alcohol or drug abuse patient.[facility] CenterIn the event this information is protected by the Federal Confidentiality of Alcohol and Drug Abuse Patient Records regulations: The Federal rules restrict any use of the information to criminally investigate or prosecute any alcohol or drug abuse patient.[facility] CenterIn the event this information is protected by the Federal Confidentiality of Alcohol and Drug Abuse Patient Records regulations: The Federal rules restrict any use of the information to criminally investigate or prosecute any alcohol or drug abuse patient.[facility] CenterIn the event this information is protected by the Federal Confidentiality of Alcohol and Drug Abuse Patient Records regulations: The Federal rules restrict any use of the information to criminally investigate or prosecute any alcohol or drug abuse patient.[facility] CenterIn the event this information is protected by the Federal Confidentiality of Alcohol and Drug Abuse Patient Records regulations: The Federal rules restrict any use of the information to criminally investigate or prosecute any alcohol or drug abuse patient.[facility] CenterIn the event this information is protected by the Federal Confidentiality of Alcohol and Drug Abuse Patient Records regulations: The Federal rules restrict any use of the information to criminally investigate or prosecute any alcohol or drug abuse patient.[facility] CenterIn the event this information is protected by the Federal Confidentiality of Alcohol and Drug Abuse Patient Records regulations: The Federal rules restrict any use of the information to criminally investigate or prosecute any alcohol or drug abuse patient.[facility] CenterIn the event this information is protected by the Federal Confidentiality of Alcohol and Drug Abuse Patient Records regulations: The Federal rules restrict any use of the information to criminally investigate or prosecute any alcohol or drug abuse patient.[facility] CenterIn the event this information is protected by the Federal Confidentiality of Alcohol and Drug Abuse Patient Records regulations: The Federal rules restrict any use of the information to criminally investigate or prosecute any alcohol or drug abuse patient.[facility] CenterIn the event this information is protected by the Federal Confidentiality of Alcohol and Drug Abuse Patient Records regulations: The Federal rules restrict any use of the information to criminally investigate or prosecute any alcohol or drug abuse patient.[facility] CenterIn the event this information is protected by the Federal Confidentiality of Alcohol and Drug Abuse Patient Records regulations: The Federal rules restrict any use of the information to criminally investigate or prosecute any alcohol or drug abuse patient.[facility] CenterIn the event this information is protected by the Federal Confidentiality of Alcohol and Drug Abuse Patient Records regulations: The Federal rules restrict any use of the information to criminally investigate or prosecute any alcohol or drug abuse patient.[facility] CenterIn the event this information is protected by the Federal Confidentiality of Alcohol and Drug Abuse Patient Records regulations: The Federal rules restrict any use of the information to criminally investigate or prosecute any alcohol or drug abuse patient.[facility] CenterIn the event this information is protected by the Federal Confidentiality of Alcohol and Drug Abuse Patient Records regulations: The Federal rules restrict any use of the information to criminally investigate or prosecute any alcohol or drug abuse patient.[facility] CenterIn the event this information is protected by the Federal Confidentiality of Alcohol and Drug Abuse Patient Records regulations: The Federal rules restrict any use of the information to criminally investigate or prosecute any alcohol or drug abuse patient.[facility] CenterIn the event this information is protected by the Federal Confidentiality of Alcohol and Drug Abuse Patient Records regulations: The Federal rules restrict any use of the information to criminally investigate or prosecute any alcohol or drug abuse patient.[facility] CenterIn the event this information is protected by the Federal Confidentiality of Alcohol and Drug Abuse Patient Records regulations: The Federal rules restrict any use of the information to criminally investigate or prosecute any alcohol or drug abuse patient.[facility] CenterIn the event this information is protected by the Federal Confidentiality of Alcohol and Drug Abuse Patient Records regulations: The Federal rules restrict any use of the information to criminally investigate or prosecute any alcohol or drug abuse patient.[facility] CenterIn the event this information is protected by the Federal Confidentiality of Alcohol and Drug Abuse Patient Records regulations: The Federal rules restrict any use of the information to criminally investigate or prosecute any alcohol or drug abuse patient.[facility] CenterIn the event this information is protected by the Federal Confidentiality of Alcohol and Drug Abuse Patient Records regulations: The Federal rules restrict any use of the information to criminally investigate or prosecute any alcohol or drug abuse patient.[facility] Reason for Visit (unrecogniz ed section and content) Reason Comments Established Patient abdominal pain Reason Comments Stoma Markings Reason Onset Date Comments Transition Of Care 12/20/2021 [facility] discharge 12-19-21- initial outreach Reason Comments Post-Op Visit Reason Onset Date Comments [facility] Hospital Follow Up 01/11/2022 Reason Comments Consult Reason Onset Date Comments Transition Of Care 04/04/2022 [facility] initial o utreach-dc'd from [facility] 04/03/22 Reason Comments Established Patient Discuss reversal [...] MATERIAL Rolando Eugene, DO [address] [place] [address] [place] [id number] Referral ID Status Reason Start Date Expiration Date V isits Requested Visits Authorized [id number] Closed Auto-Generate d Referral 03/18/2023 04/16/2024 1 [...] Care Teams (unrecognized sec tion and content) Spanish Professor Relationship Specialty Start Date End Date Cassie Richardson MD [address] [place] [address] PCP - General Family Practice 08/20/21 Spanish Professor Relationship Specialty Start Date End Date Cassie Richardson MD [address] [place] [address] PCP - General Family Practice 08/20/21 Spanish Professor Relationship Specialty Start Date End Date Cassie Richardson MD [address] [place] [address] PCP - General Family Practice 08/20/21 Collin Le MD [address] [place] [address] [place], [place] [phone] Referring General Surgery 12/11/21 Collin Le MD [address] [place] [address] [place], [place] [phone] Home Care Physician General Surgery 12/11/21 Maile Caruso, RADHA [address] [place] [address] Building Maintenance Mechanic Post Acute Care 12/20/21 Spanish Professor Relationship Specialty Start Date End Date Cassie Richardson MD [address] [place] [address] PCP - General Family Practice 08/20/21 Collin Le MD [address] [place] [address] [place] [address] Referring General Surgery 12/11/21 Collin Le MD [address] [place] [address] [place] [address] Home Care Physician General Surgery 12/11/21 Maile Caruso RN [address] [place] [address] Building Maintenance Mechanic Post Acute Care 12/20/21 Spanish Professor Relationship Specialty Start Date End Date Cassie Richardson MD [address] [place] [address] PCP - General Family Practice 08/20/21 Collin Le MD [address] [place] [address] [place] [address] Referring General Surgery 12/11/21 Collin Le MD [address] [place] [address] [place] [address] Home Care Physician General Surgery 12/11/21 Maile Caruso RN [address] [place] [address] Building Maintenance Mechanic Post Acute Care 12/20/21 Spanish Professor Relationship Specialty Start Date End Date Cassie Richardson MD [address] [place] [address] PCP - General Family Practice 08/20/21 Collin Le MD [address] [place] [address] [place] [address] Referring General Surgery 12/11/21 Collin Le MD [address] [place] [address] [place] [address] Home Care Physician General Surgery 12/11/21 Maile Caruso, RADHA [address] [place] [address] Building Maintenance Mechanic Post Acute Care 12/20/21 Spanish Professor Relationship Specialty Start Date End Date Cassie Richardson MD [address] [place] [address] PCP - General Family Practice 08/20/21 Collin Le MD [address] [place] [address] [place] [address] Referring General Surgery 12/11/21 Collin Le MD [address] [place] [address] [place] [address] Home Care Physician General Surgery 12/11/21 Maile Caruso RN [address] [place] [address] Building Maintenance Mechanic Post Acute Care 12/20/21 Spanish Professor Relationship Specialty Start Date End Date Cassie Richardson MD [address] [place] [address] PCP - General Family Practice 08/20/21 Collin Le MD [address] [place] [address] [place] [address] Referring General Surgery 12/11/21 Collin Le MD [address] [place] [address] [place] [address] Home Care Physician General Surgery 12/11/21 Maile Caruso RN [address] [place] [address] Building Maintenance Mechanic Post Acute Care 12/20/21 Spanish Professor Relationship Specialty Start Date End Date Cassie Richardson MD [address] [place] [address] PCP - General Family Practice 08/20/21 Collin Le MD [address] [place] [address] [place] [address] Referring General Surgery 12/11/21 Collin Le MD [address] [place] [address] [place] [address] Home Care Physician General Surgery 12/11/21 Maile Caruso RN [address] [place] [address] Building Maintenance Mechanic Post Acute Care 12/20/21 Spanish Professor Relationship Specialty Start Date End Date Cassie Richardson MD [address] [place] [address] PCP - General Family Practice 08/20/21 Collin Le MD [address] [place] [address] [place] [address] Referring General Surgery 12/11/21 Collin Le MD [address] [place] [address] [place] [address] Home Care Physician General Surgery 12/11/21 Maile Caruso RN [address] [place] [address] Building Maintenance Mechanic Post Acute Care 12/20/21 Spanish Professor Relationship Specialty Start Date End Date Cassie Richardson MD [address] [place] [address] PCP - General Family Medicine 08/20/21 Collin Le MD [address] [place] [address] [place] [address] Referring General Surgery 12/11/21 Collin Le MD [address] [place] [address] [place] [address] Home Care Provider General Surgery 12/11/21 Maile Caruso RN [address] [place] [address] Building Maintenance Mechanic Post Acute Care 12/20/21 Spanish Professor Relationship Specialty Start Date End Date Cassie Richardson MD [address] [place] [address] PCP - General Family Medicine 08/20/21 Collin Le MD [address] [place] [address] [place] [address] Referring General Surgery 12/11/21 Collin Le MD [address] [place] [address] [place] [address] Home Care Provider General Surgery 12/11/21 Maile Caruso RN [address] [place] [address] Building Maintenance Mechanic Post Acute Care 12/20/21 Spanish Professor Relationship Specialty Start Date End Date Cassie Richardson MD [address] [place] [address] PCP - General Family Medicine 08/20/21 Collin Le MD [address] [place] [address] [place] [address] Referring General Surgery 12/11/21 Collin Le MD [address] [place] [address] [place] [address] Home Care Provider General Surgery 12/11/21 Maile Caruso, RADHA [address] [place] [address] Building Maintenance Mechanic Post Acute Care 12/20/21 Spanish Professor Relationship Specialty Start Date End Date Cassie Richardson MD [address] [place] [address] PCP - General Family Medicine 08/20/21 Collin Le MD [address] [place] [address] [place] [address] Referring General Surgery 12/11/21 Collin Le MD [address] [place] [address] [place] [address] Home Care Provider General Surgery 12/11/21 Maile Caruso RN [address] [place] [address] Building Maintenance Mechanic Post Acute Care 12/20/21 Spanish Professor Relationship Specialty Start Date End Date Cassie Richardson MD [address] [place] [address] PCP - General Family Medicine 08/20/21 Collin Le MD [address] [place] [address] [place] [address] Referring General Surgery 12/11/21 Collin Le MD [address] [place] [address] [place] [address] Home Care Provider General Surgery 12/11/21 Maile Caruso RN [address] [place] [address] Building Maintenance Mechanic Post Acute Care 12/20/21 Spanish Professor Relationship Specialty Start Date End Date Cassie Richardson MD [address] [place] [address] PCP - General Family Medicine 08/20/21 Collin Le MD [address] [place] [address] [place] [address] Referring General Surgery 12/11/21 Collin Le MD [address] [place] [address] [place] [address] Home Care Provider General Surgery 12/11/21 Maile Caruso RN [address] [place] [address] Building Maintenance Mechanic Post Acute Care 12/20/21 Spanish Professor Relationship Specialty Start Date End Date Cassie Richardson MD [address] [place] [address] PCP - General Family Medicine 08/20/21 Collin Le MD [address] [place] [address] [place] [address] Referring General Surgery 12/11/21 Collin Le MD [address] [place] [address] [place] [address] Home Care Provider General Surgery 12/11/21 Maile Caruso RN [address] [place] [address] Building Maintenance Mechanic Post Acute Care 12/20/21 Spanish Professor Relationship Specialty Start Date End Date Cassie Richardson MD [address] [place] [address] PCP - General Family Medicine 08/20/21 Collin Le MD [address] [place] [address] [place] [address] Referring General Surgery 12/11/21 Collin Le MD [address] [place] [address] [place] [address] Home Care Provider General Surgery 12/11/21 Maile Caruso RN [address] [place] [address] Building Maintenance Mechanic Post Acute Care 12/20/21 Spanish Professor Relationship Specialty Start Date End Date Cassie Richardson MD [address] [place] [address] PCP - General Family Medicine 08/20/21 Collin Le MD [address] [place] [address] [place] [address] Referring General Surgery 12/11/21 Collin Le MD [address] [place] [address] [place] [address] Home Care Provider General Surgery 12/11/21 Maile Caruso RN [address] [place] [address] Building Maintenance Mechanic Post Acute Care 12/20/21 Spanish Professor Relationship Specialty Start Date End Date Collin Le MD [address] [place] [address] [facility] [address] [place] [address] Referring General Surgery 12/11/21 Collin Le MD [address] [place] [address] [place] [address] Home Care Provider General Surgery 12/11/21 Maile Caruso RN [address] [place] [address] Building Maintenance Mechanic Post Acute Care 12/20/21 Spanish Professor Relationship Specialty Start Date End Date Jesus Raza APRN.INTERNATIONAL RELATIONS PROFESSOR [address] [place], [place] [address] PCP - General Family Medicine 03/13/23 Collin Le MD [address] [place] [address] [place], [place] [phone] Referring General Surgery 12/11/21 Collin Le MD [address] [place] [address] [place], [place] [phone] Home Care Provider General Surgery 12/11/21 Maile Caruso RN [address] [place] [address] Building Maintenance Mechanic Post Acute Care 12/20/21 Daren Dimas MD [address] [place], [place] [id number] Gastroenterology 12/20/22 Spanish Professor Relationship Specialty Start Date End Date Jesus Raza, AIR CONDITIONING INSTALLER SUPERVISOR.INTERNATIONAL RELATIONS PROFESSOR [address] [place] [address] PCP - General Family Medicine 03/13/23 Collin Le MD [address] [place] [address] [place], [place] [phone] Referring General Surgery 12/11/21 Collin Le MD [address] [place] [address] [place], [place] [phone] Home Care Provider General Surgery 12/11/21 Maile Caruso RN [address] [place] [address] Building Maintenance Mechanic Post Acute Care 12/20/21 Daren Dimas MD [address] [facility] [place], [place] [phone] Gastroenterology 12/20/22 Spanish Professor Relationship Specialty Start Date End Date Jesus Raza APRN.INTERNATIONAL RELATIONS PROFESSOR [address] [place] [address] PCP - General Family Medicine 03/13/23 Collin Le MD [address] [place] [address] [place], [place] [phone] Referring General Surgery 12/11/21 Collin Le MD [address] [place] [address] [place], [place] [phone] Home Care Provider General Surgery 12/11/21 Maile Caruso RN [address] [place], [place] [address] Building Maintenance Mechanic Post Acute Care 12/20/21 Daren Dimas MD [address] [place], [place] [phone] Gastroenterology 12/20/22 Spanish Professor Relationship Specialty Start Date End Date Jesus Raza APRN.INTERNATIONAL RELATIONS PROFESSOR [address] [place] [address] PCP - General Family Medicine 03/13/23 Collin Le MD [address] [place] [address] [place], [place] [phone] Referring General Surgery 12/11/21 Collin Le MD [address] [place] [address] [place], [place] [phone] Home Care Provider General Surgery 12/11/21 Maile Caruso RN [address] [place] [address] Building Maintenance Mechanic Post Acute Care 12/20/21 Daren Dimas MD [address] [place] [address] Gastroenterology 12/20/22 Spanish Professor Relationship Specialty Start Date End Date Jesus Raza APRN.INTERNATIONAL RELATIONS PROFESSOR [facility] [place] [address] PCP - General Family Medicine 03/13/23 Collin Le MD [address] [place] [address] [place], [place] [address] Referring General Surgery 12/11/21 Collin Le MD [address] [place] [address] [place], [place] [phone] Home Care Provider General Surgery 12/11/21 Maile Caruso RN [address] [place] [address] Building Maintenance Mechanic Post Acute Care 12/20/21 Daren Dimas MD [address] [place], [place] [phone] Gastroenterology 12/20/22 Spanish Professor Relationship Specialty Start Date End Date Jesus Raza APRN.INTERNATIONAL RELATIONS PROFESSOR [facility] [place] [address] PCP - General Family Medicine 03/13/23 Collin Le MD [address] [place] [address] [place], [place] [phone] Referring General Surgery 12/11/21 Collin Le MD [address] [place] [address] [place] [address] Home Care Provider General Surgery 12/11/21 Maile Caruso, RADHA [address] [place] [address] Building Maintenance Mechanic Post Acute Care 12/20/21 Daren Dimas MD [address] [place] [address] Gastroenterology 12/20/22 Spanish Professor Relationship Specialty Start Date End Date Jesus Raza APRN.INTERNATIONAL RELATIONS PROFESSOR [address] [place] [address] PCP - General Family Medicine 03/13/23 Collin Le MD [address] [place] [address] [place] [address] Referring General Surgery 12/11/21 Collin Le MD [address] [place] [address] [place] [address] Home Care Provider General Surgery 12/11/21 Maile Caruso RN [address] [place], [place] [address] Building Maintenance Mechanic Post Acute Care 12/20/21 Daren Dimas MD [address] [place] [address] Gastroenterology 12/20/22 Spanish Professor Relationship Specialty Start Date End Date Jesus Raza APRN.INTERNATIONAL RELATIONS PROFESSOR [address] [place] [address] PCP - General Family Medicine 03/13/23 Collin Le MD [address] [place] [address] [place] [address] Referring General Surgery 12/11/21 Collin Le MD [address] [place] [address] [place] [address] Home Care Provider General Surgery 12/11/21 Maile Caruso (Rn), RN [address] [place] [address] [place] [address] Building Maintenance Mechanic Post Acute Care 12/20/21 Daren Dimas MD [address] [place] [address] Gastroenterology 12/20/22 Spanish Professor Relationship Specialty Start Date End Date Jesus Raza APRN.INTERNATIONAL RELATIONS PROFESSOR [address] [place] [address] PCP - General Family Medicine 03/13/23 Collin Le MD [address] [place] [address] [place] [address] Referring General Surgery 12/11/21 Collin Le MD [address] [place] [address] [place] [address] Home Care Provider General Surgery 12/11/21 Maile Caruso (Rn), RN [address] [place] [address] [place] [address] Building Maintenance Mechanic Post Acute Care 12/20/21 Daren Dimas MD [address] [place] [address] Gastroenterology 12/20/22 Spanish Professor Relationship Specialty Start Date End Date Jesus Raza, AIR CONDITIONING INSTALLER SUPERVISOR.INTERNATIONAL RELATIONS PROFESSOR [address] [place] [address] PCP - General Family Medicine 03/13/23 Collin Le MD [address] [place] [address] [place] [address] Referring General Surgery 12/11/21 Collin Le MD [address] [place] [address] [place], [place] [phone] Home Care Provider General Surgery 12/11/21 Maile Caruso (Rn), RN [address] [place] [address] [place] [address] Building Maintenance Mechanic Post Acute Care 12/20/21 Daren Dimas MD [address] [place] [address] Gastroenterology 12/20/22 Spanish Professor Relationship Specialty Start Date End Date Jesus Raza, ROHIT.INTERNATIONAL RELATIONS PROFESSOR [address] [place] [address] PCP - General Family Medicine 03/13/23 Collin Le MD [address] [place] [address] [place] [address] Referring General Surgery 12/11/21 Collin Le MD [address] [place] [address] [place], [place] [phone] Home Care Provider General Surgery 12/11/21 Maile Caruso (Rn), RN [address] [place] [address] [place] [address] Building Maintenance Mechanic Post Acute Care 12/20/21 Daren Dimas MD [address] [place] [address] Gastroenterology 12/20/22 Spanish Professor Relationship Specialty Start Date End Date Jesus Raza APRN.INTERNATIONAL RELATIONS PROFESSOR [address] [place] [address] PCP - General Family Medicine 03/13/23 Collin Le MD [address] [place] [address] [place], [place] [phone] Referring General Surgery 12/11/21 Collin Le MD [address] [place] [address] [place], [place] [phone] Home Care Provider General Surgery 12/11/21 Maile Caruso (Rn), RN [address] [place] [address] [place] [address] Building Maintenance Mechanic Post Acute Care 12/20/21 Daren Dimas MD [address] [place] [address] Gastroenterology 12/20/22 Spanish Professor Relationship Specialty Start Date End Date Jesus Raza, ROHIT.INTERNATIONAL RELATIONS PROFESSOR [address] [place] [address] PCP - General Family Medicine 03/13/23 Collin Le MD [address] [place] [address] [place], [place] [phone] Referring General Surgery 12/11/21 Collin Le MD [address] [place] [address] [place], [place] [phone] Home Care Provider General Surgery 12/11/21 Maile Caruso (Rn), RN [address] [place] [address] [facility] [address] [place] [address] Building Maintenance Mechanic Post Acute Care 12/20/21 Daren Dimas MD [address] [place] [address] Gastroenterology 12/20/22 Spanish Professor Relationship Specialty Start Date End Date Jesus Raza APRN.INTERNATIONAL RELATIONS PROFESSOR [address] [place] [address] PCP - General Family Medicine 03/13/23 Collin Le MD [address] [place] [address] [place] [address] Referring General Surgery 12/11/21 Collin Le MD [address] [place] [address] [facility] [address] [place] [address] Home Care Provider General Surgery 12/11/21 Maile Caruso (Rn), RN [address] [place] [address] [facility] [address] [place] [address] Building Maintenance Mechanic Post Acute Care 12/20/21 Daren Dimas MD [address] [place] [address] Gastroenterology 12/20/22 Spanish Professor Relationship Specialty Start Date End Date Jesus Raza APRN.INTERNATIONAL RELATIONS PROFESSOR [address] [place] [address] PCP - General Family Medicine 03/13/23 Collin Le MD [address] [place] [address] [facility] [address] [place], [place] [phone] Referring General Surgery 12/11/21 Collin Le MD [address] [place] [address] [place] [address] Home Care Provider General Surgery 12/11/21 Maile Caruso (Rn), RN [address] [place] [address] [place] [address] Building Maintenance Mechanic Post Acute Care 12/20/21 Daren Dimas MD [address] [place] [address] Gastroenterology 12/20/22 Spanish Professor Relationship Specialty Start Date End Date Collin Le MD [address] [place] [address] [place] [address] Referring General Surgery 12/11/21 Collin Le MD [address] [place] [address] [place] [address] Home Care Provider General Surgery 12/11/21 Maile Caruso (Rn), RN [address] [place] [address] [place] [address] Building Maintenance Mechanic Post Acute Care 12/20/21 Daren Dimas MD [address] [place] [address] Gastroenterology 12/20/22 Spanish Professor Relationship Specialty Start Date End Date Collin Le MD [address] [place] [address] [place] [address] Referring General Surgery 12/11/21 Collin Le MD [address] [place] [address] [place] [address] Home Care Provider General Surgery 12/11/21 Maile Caruso (Rn), RN [address] [address] Building Maintenance Mechanic Post Acute Care 12/20/21 Spanish Professor Relationship Specialty Start Date End Date Sebastián Gibbons [address] [facility] [place] [id number] PCP - General Family Medicine 06/03/19 08/19/21 [...] 2024 Team Status: Active Member Role Status Dates Mallory Mckeon MD Primary Care Provider Active Team Status: Inactive Member Role Status Dates PERLA Cleaning Referring Provider Active Start: December 22, 2024 End: December 22, 2024 PERLA Diop Attending Provider Active Start: December 22, 2024 End: December 22, 2024 Mallory Mckeon MD Primary Care Provider Active St art: December 22, 2024 End: December 22, 2024 Team Status: Inactive Member Role Status Constantin Mckeon MD Primary Care Provider Active St art: January 17, 2025 End: January 17, 2025 PERLA Diop Attending Provider Active Start: January 17, 2025 End: January 17, 2025 PERLA Diop Referring Provider Active Start: January 17, 2025 End: January 17, 2025 Team Status: Active Member Role/Relationship Status Dates Mallory Mckeon MD Primary Care Provider Active Team Status: Inactive Member Role/Relationship Status Dates IMANI CleaningC Referring Provider Active Start: December 22, 2024 End: December 22, 2024 IMANI DiopC Attending Provider Active Start: December 22, 2024 End: December 22, 2024 Mallory Mckeon MD Primary Care Provider Active St art: December 22, 2024 End: December 22, 2024 Team Status: Inactive Member Role/Relationship Status Dates Mallory Mckeon MD Primary Care Provider Active St art: January 17, 2025 End: January 17, 2025 PERLA Diop Attending Provider Active Start: January 17, 2025 End: January 17, 2025 PERLA Diop Referring Provider Active Start: January 17, 2025 End: January 17, 2025 Team Status: Inactive Member Role/Relationship Status Constantin Mckeon MD Primary Care Provider Active St art: April 01, 2025 End: April 01, 2025 Mallory Mckeon MD Referring Provider Active Start : April 01, 2025 End: April 01, 2025 Dr. Tom Campbell DO Attending Provider Active Start: April 01, 2025 End: April 01, 2025 Team Status: Active Member Role/Relationship Status Constantin Mckeon MD Primary Care Provider Active St art: April 01, 2025 Mallory Mckeon MD Referring Provider Active Start : April 01, 2025 Dr. Tom Campbell DO Attending Provider Active Start: April 01, 2025 Dr. Tom Campbell DO Other Provider Active St art: April 01, 2025 Spanish Professor Relationship Specialty Start Date End Date Collin Le MD [address] [place] [address] [place], [place] [phone] Referring General Surgery 12/11/21 Collin Le MD [address] [place] [address] [place], [place] [phone] Home Care Provider General Surgery 12/11/21 Maile Caruso (Rn), RN [address] [facility] [address] [place] [address] Building Maintenance Mechanic Post Acute Care 12/20/21 Daren Dimas MD [address] [facility] [address] [place] [address] Gastroenterology 12/20/22 Goals (unrecognized section and content) [...] BE BASED ON THE PRIMARY CLINICAL RECORDS. [employer] [facility]. provides no warranty or guarantee of the accuracy or completeness of information in this document.
--- NOTE | 2025-05-29 15:08 | HP.PCM.HOS_ITS ---
HPI - General General Date of Admission: 05/29/25 Date of Service: 05/29/25 Chief Complaint: abd pain HPI Narrative EUNICE GIRNO, is a 39-year-old male history of ileostomy and seasonal allergies presented [facility] ED 05/29/2025 due to abdominal pain over the past 2 weeks. Noted that pain is continuous and ranges from 8 to to a 7 out of 10. He has had decreased appetite and some nausea. It is noted that he does not have a colon and small intestines are attached to about 12 inches of his rectum. Does note some rectal pain and said there was concern that maybe he has an internal hemorrhoid, sometimes has blood when he wipes and sometimes will notice small amount of dripping blood but this is not consistent. No fevers or chills, no changes in urination. Reports he is taking fluids okay but just does not feel like eating. His stool has been fairly liquid over the past 1 to 2 weeks and notes he has loose stools at baseline due to his surgery however this is even more liquid/watery than usual. In the ED temp 98, heart rate 92, blood pressure 147/99, respiratory rate 16 pulse ox 99% on room air. CBC with white count of 10.4, hemoglobin 15.6. CMP with normal electrolytes, glucose 105, liver panel within normal limits, lactic normal, lipase 47, UA without evidence of infection. Enteric panel and COVID-negative. Had CT abdomen and pelvis which showed peritoneal architectural distortion centered in right abdomen where the transitional point of colonic wall twisting and narrowing. Patient is known to GI and GI was contacted in the ED, it was recommended patient be admitted with GI consult and started on antibiotics. Will likely get sigmoidoscopy and possible further evaluation with CT with rectal contrast as well. Hospitalist contacted for mission. Patient evaluated bedside and reported history as above. Feeling a little bit better after getting pain medications but still reports the abdominal pain more so in bilateral lower quadrants that is sharp at times. Nausea is mostly if he is straining to try to get any amount of bowel movement out and he primarily is in eating just to not feeling like eating. [facility] Medical History Wears contact lenses Wears glasses Alcohol use Marijuana use Non-smoker Ileostomy present Home Medications ?Medication ?Instructions ?Recorded ?Last Taken ?Type cetirizine 10 mg tablet (24Hour 10 mg PO DAILY 5 Unknown History Allergy) Allergy/AdvReac Type Severity Reaction Status Date / Time No Known Allergies Allergy Verified 05/29/25 10:06 Surgical History H/O spinal fusion History of appendectomy History of reversal of ileostomy H/O colectomy Social History Smoking Status: Never smoker ROS ROS Narrative General: Denies fever/chills HENT: Denies headache, denies stuffy nose, denies sore throat EYES: Denies changes in vision Resp: Denies cough, denies shortness of breath Cardiac: Denies chest pain GI: As described in HPI : Denies changes in urination Extremity: Denies swelling MSK: Denies weakness Neuro: Denies any numbness/tingling Heme: Denies any bleeding or bruising Skin: Denies rashes Psychiatric: No complaints voiced Vital Signs Vital Signs Vital Signs: 05/29/25 10:04 05/29/25 12:00 05/29/25 14:00 Temperature 98 F Temperature Source Oral Pulse Rate 92 86 84 Respiratory Rate 16 18 18 Blood Pressure 147/99 H 130/92 H 132/86 H Blood Pressure Mean 115 104 101 Pulse Ox 99 98 99 Oxygen Delivery Method Room Air Room Air Weight Weight: 82.242 kg Body Mass Index (BMI) 29.2 Physical Exam Narrative General: Alert, oriented, no apparent distress HEENT: Atraumatic, normocephalic Eyes: Anicteric, normal conjunctiva, extraocular movements grossly intact Neck: Supple Respiratory: Clear to auscultation bilaterally, normal respiratory effort Cardiovascular: Regular rate and rhythm GI: Soft, nondistended, vague tenderness centrally and in lower quadrants without any rebound, guarding, rigidity Extremities: No edema Musculoskeletal: Moving all extremities Neuro: No overt focal neurological deficits Skin: No rashes appreciated Psych: Cooperative Results Lab / Micro Data 05/29/25 10:15 05/29/25 10:15 Labs: Laboratory Results - last 24 hr 05/29/25 10:15: WBC 10.4, RBC 5.31, Hgb 15.6, Hct 45.9, MCV 86.4, MCH 29.4, MCHC 34.0, RDW Std Deviation 38.5, RDW Coeff of [place] 12.1, Plt Count 398, MPV 9.1, Immature Gran % (Auto) 0.500, Neut % (Auto) 71.2 H, Lymph % (Auto) 13.5 L, [place] % (Auto) 10.9 H, Eos % (Auto) 3.3, Baso % (Auto) 0.6, Absolute Neuts (auto) 7.4, Absolute Lymphs (auto) 1.40, Nucleated RBC % 0, Sodium 139, Potassium 4.1, Chloride 103, Carbon Dioxide 21.7, Anion Gap 14, BUN 10, Creatinine 1.04, Estim Creat Clear Calc 96.01, Est GFR (MDRD) Non-Af 94, BUN/Creatinine Ratio 9.3 L, G lucose 105 H, Calcium 9.1, Total Bilirubin 0.67, AST 20, ALT 24, Alkaline Phosphatase 82, Total Protein 7.8, Albumin 4.1, Globulin 3.7, Albumin/Globulin Ratio 1.1, Lipase 47 05/29/25 11:10: Lactic Acid < 1.0 05/29/25 12:50: Urine Color Yellow, Urine Clarity Clear, Urine pH 6.0, Ur Specific [place] 1.010, Urine Protein 15 H, Urine Glucose (UA) Normal, Urine Ketones 5 H, Urine Occult Blood Negative, Urine Nitrite Negative, Urine Bilirubin Negative, Urine Urobilinogen Normal, Ur Leukocyte Esterase Negative, Urine RBC 0 SEEN, Urine WBC 0 SEEN, Ur Squamous Epith Cells 0 SEEN, Urine Bacteria 0 SEEN, Urine Mucus 0 SEEN Micro: Microbiology 05/29/25 12:49 Stool Clostridioides difficile (PCR) - Final Imaging Radiology Impression Abdomen/Pelvis CT 05/29/25 11:01 IMPRESSION: Peritoneal architectural distortion centered in the right abdomen where the transitional point of colonic wall twisting and narrowing. These findings can be consistent with partial small bowel obstruction in the proper clinical setting. 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 at midnight - GI consulted - Zosyn continued - Supportive care # History of colon removal - Had previous ileostomy that was reversed and small intestine attached to rectum - Follows with GI in an outpatient basis - GI contacted in the ED and recommended admission and they will see patient in consultation #DVT ppx: SCDs Margareth Hurt MD Time spent in the patient's overall evaluation, decision-making process, review of diagnostic data, adjustment of management, discussion with other providers, nursing and ancillary staff involved in patient's care documentation, 59 Minutes Charges/Coding Visit Charges Inpatient E&M: 96143 Init Hosp L2
--- OUTSIDE RECORDS SUMMARY | 2025-05-29 15:14 | XMS RPT_ITS | CCD ---
Author Organization [facility] Care Team Providers Care Explosive Ordnance Manager Name Role Phone Unavailable Primary Care Provider UnavailCassie Ricketts MD Primary Care Provider Rey DALEY, Collin Unavailable Rey DALEY, Collin Unavailable Shady GARCIA, Maile Unavailable Cassie Richardson MD Primary Care Provider [phone] Rey DALEY, Collin Unavailable Rey DALEY, Collin Unavailable [phone] Shady GARCIA, Maile Unavailable Cassie Richardson MD Primary Care Provider [phone] Rey DALEY, Collin Unavailable [phone] Rey DALEY, Collin Unavailable Shady GARCIA, Maile Unavailable [phone] LINETTE LAMB DO Attending Unavailable ROGERIO [...] Care Unavailable JABIER, ROLANDO P Attending Unavailable JABIER, ROLANDO P Referring Unavailable KNOBLE, JESUS Primary Care Unavailable KNOBLE, JESUS Primary Care Unavailable JABIER, ROLANDO P Referring Unavailable DAREN DIMAS Attending Unavailable MIRIAM, DAREN Referring Unavailable BRANDSTETTER, COLLIN Attending Unavailabl e SUTTONKINZA SANDOVAL Referring Unavailable NANCIE, CASSIE JED Primary Care Unavailable BRANDSTETTER, COLLIN Referring Unavailabl e NANCIE, CASSIE JED Primary Care Unavailable Shady RN, Maile (Rn) Unavailable Unavaila ble Carlyle PROFESSOR OF BIBLICAL STUDIES.ANDREW, Jesus Primary Care Provider Sebastián Gibbons Primary Care Provider Carlyle COSMETIC SALES ADVISOR-C, Jesus Primary Care Provider Carlyle COSMETIC SALES ADVISOR-C, Jesus Referring Provider Dr. Tom Campbell DO Attending Provider Mallory Mckeon MD Primary Care Provider Mallory Mckeon MD Attending Provider Mallory Mckeon MD Referring Provider Carlyle COSMETIC SALES ADVISOR-C, Jesus Referring Provider Bunny COSMETIC SALES ADVISOR-CZhane Attending Provider Bunny COSMETIC SALES ADVISOR-CZhane Referring Provider Mallory Mckeon MD Primary Care [...] TAPE-SILICONES] Drug Allergy 09-10-2019 Other: See Comments [facility] (20 sources) Adhesive agent; Translations: [ADHESIVE] Drug Allergy 09-26-2022 Other: See Comments [facility] (1 source) Adhesive agent Drug Allergy 09-26-2022 Other: See Comments [facility] Medications Current Medications Medication Drug Class(es) Dates Sig (Normalized) Sig (Original) [id number] 200 actuat albuterol 0.09 mg/actuat metered dose [...] Comment on above: Take 1 tablet by [facility] three times daily as needed for muscle [...] the MD Take 1 capsule by [facility] three times daily. metroNIDAZOLE 500 mg oral [...] cookie daily for pain polyethylene glycol 3350 46323 mg powder for oral solution (8 sources) [...] infection (1 source) Acute gastroenteropathy due to Brent agent; Translations: [ACUTE GASTROENTROPATHY NORWALK AGNT] Onset: [...] 04-26-2025 CNOV Office Visit (WOU[facility]) EUNICE VARGAS ([id number]) 1985 Date Time Provider Department 04/26/25 11:15 [...] tenderness or frontal sinus tenderness. Mouth/Throat: Lips: Derwood. No lesions. Mouth: Mucous membranes are moist. No oral lesions. Dentition: No gum lesions. Tongue: No lesions. Tongue does not deviate from midline. Palate: No mass and lesion (more content not included)... Normal [facility] COVID & INFLUENZA A/B & RSV PCR, ROUTINEon 04-26-2025 FLUAV RNA RAVINDER+probe Ql (Unsp spec) Not detected Not Detected [facility] FLUBV RNA RAVINDER+probe Ql (Unsp spec) Not detected Not Detected [facility] Interpretation and review of laboratory results Normal [facility] RSV A RNA RAVINDER+probe Ql (Unsp spec) Not detected Not Detected [facility] SARS-CoV-2 (COVID-19) RNA RAVINDER+probe Ql (Unsp spec) Not detected See comment [facility] Reference Range (the expected result in uninfected individuals): Not detected [facility] EGD Reporton 04-01-2025 EGD Report [facility] Medical Records Department [address] [place] [address] EGD Report MR#: [id number] Acct: [id number] Name: EUNICE VARGAS Rep #: [id number] : 1985 39 From: [facility] Friend DO PCP: Dr. Mallory Mckeon MD Status:REG [facility] Patient Name: Eunice Vargas Procedure Date: 04/01/2025 [...] present medications. Procedure Code(s): --- Professional --- 15202, Small intestinal endoscopy, enteroscopy beyond second portion of duodenum, not including ileum; with biopsy, single or multiple CPT copyright 2021 [employer]. All rights reserved. The codes documented in this report are preliminary and upon geophysicist review may be revised to meet current compliance requirements. Tom Campbell DO 04/01/2025 1:23:18 PM This report has been signed electronically. Number of Addenda: 0 Note Initiated On: 04/01/2025 12:54 PM 04/01/25 1323 Date Tom Talley Signature: Date (if indicated) (more content not included)... Normal [facility] Immunohistochemical Stainson 04-01-2025 Immunohistochemical Stains Patient Age/Sex Location Account Attending Physician EUNICE VARGAS 39/M EN [id number] Tom Campbell DO Specimen: [id number] Received: 04/01/25 Status: SALVATORE Matta Num: [id number] Spec Type: EGD BIOPSY Subm Dr: Tom [...] developed and their performance characteristics determined by [facility]. They may not have been [...] specimen is totally submitted in one cassette. [place] 04/01/2025 Patient Age/Sex Location Account Attending Physician EUNICE VARGAS/M EN [id number] Tom Campbell, CPT:26673g0,93009 Patient Age/Sex Location Account Attending Physician EUNICE VARGAS 39/M EN [id number] Tom Campbell DO Signed (signature on file) Dr. Emily Mitchell MD 04/18/25 1546 Normal [facility] Comment on above: Performed By: #### L 7000.0750, L7000.0300, L7000.0700, M600.5000, M7400.3302, M100.0605, M100.7900, M100.6796, M100.637 #### [facility] [address] [facility]. [place], [place], [address] MR/OP.PROVATon 04-01-2025 MR/OP.[facility] Medical Records Department [address] [place] [address] Provation Physician Letter MR#: [id number] Acct: [id number] Name: EUNICE VARGAS Rep #: [id number] : 1985 39 From: Tom Campbell DO PCP: Dr. Mallory Mckeon MD Status:REG [facility] 04/01/2025 Mallory Mckeon Md Re : Upper [...] DO Date Dictated: 04/01/25 1254 Date Transcribed: Drawing Instructor: RF Signed [facility] MR/POSTOP.ANEon 04-01-2025 MR/POSTOP.[facility] Medical Records Department [address] [facility] [address] Anesthesia Postop Eval I 04/01/25 1323 MR#: [id number] Acct: [id number] Name: EUNICE VARGAS Rep #: [id number] : 1985 39 From: Lul Celestin CRNA PCP: Dr. Mallory Mckeon MD Status:REG [facility] Y Race: C Location: [place] [address] Anesthesia: Postop Eval I Current Vital Signs Temperature: 97.9 F Pulse Rate: 98 Blood Pressure: 125/78 Respiratory Rate: 16 Pulse Ox: 98 Assessment Airway patent: Yes Spontaneous unlabored respirations: Yes nausea: No Vomiting: No Anesthesia Complication: No Fluid Hydration Crystalloid volume administer (ml): 300 Total IV fluid infused: 300 Progress Note Anesthesia document: Postop Eval 1 completed: Yes 04/01/25 1323 Date Lul Celestin PROFESSOR OF MUSICOLOGY Cosigner Signature: Date CC: Signed [facility] Abdomen/Pelvis WITH Contrast on 01-17-2025 Abdomen/Pelvis WITH Contrast [facility] Imaging Services [address] [address] Abdomen/Pelvis WITH Contrast MR#: [id number] Acct: [id number] Name: EUNICE VARGAS Rep #: [id number] : 1985 M 39 From: Harshil lindsey MD PCP: Dr. Mallory Mckeon MD Status: REG CLI Study: Abdomen/Pelvis WITH Contrast Date of Exam: 05/05 Exam# [id number] Ordering Dr: Zhane Hollis PROCEDURE: ABDOMEN/PELVIS WITH [...] No interval change is noted. [facility] CC: PERLA Hollis; Dr. Mallory Mckeon MD Drawing Instructor: Signed Normal [facility] Gastroenterology Visit Repor ton 12-22-2024 Gastroenterology Visit Report [facility] Gastroenterology [address] [place] [address] OFFICE VISIT Date of Service: 12/22/24 MR#: [id number] Acct: [id number] Name: EUNICE VARGAS Rep #: [id number] : 1985 Provider: PERLA pacheco Age/Sex: 39/M [place] [facility] [place]: Signed Intake Vital Signs 08/14/23 21:15 [...] Skin Gen (more content not included)... Normal [facility] L3410.9998on 10-30-2024 [facility] Mis. COMMENT Normal . [facility] Comment on above: Order Comment: 35491 0VIT K SERUM YUKO TOP PFL RF Result Comment: Test Ordered: 006215 Vitamin K1 Test(s) 566005-Snpavuc K1 was developed and its performance characteristics [facility] It has not been cleared or approved by the Food and Drug Administration. Vitamin K1 0.57 ng/mL Reference Range: 0.10-2.20 Performed at: [facility] [address] [id number] Rigger Supervisor: Morgan Vizcarra MD, Phone: [phone] Performed at: [address] [id number] Rigger Supervisor: Sai Moran PhD, Phone: [phone] Performed By: #### L 7000.0750, L7000.0300, L7000.0700, M600.5000, M7400.3302, M100.0605, M100.7900, M100.6796, M100.637 #### [facility]. [place], [place], [id number] Anion gap in Serum or Plasma Ordered By: Mallory Mckeon on 10-19-2024 Anion gap [Moles/Vol] 13 mmol/L 5-15 [facility] BUN/creatinine ratioOrdered By: Mallory Gomezke on 10-19-2024 Urea nitrogen/Creatinine [Mass ratio] 13.9 mg/mg 10-20 [facility] Bilirubin, totalOrdered By: Mallory Gomezke on 10-19-2024 Bilirubin [Mass/Vol] 0.59 mg/dL 0.00-1.30 [facility] CBC-Complete Blood Cnt No Di ffon 10-19-2024 Erythrocyte distribution width (RBC) [Ratio] 12.8 % Normal 11.6-14.6 [facility] Comment on above: Order Comment: Order Date: 10/19/24Order Info: [id number] - CBC Performed By: #### L 7000.0750, L7000.0300, L7000.0700, M600.5000, M7400.3302, M100.0605, M100.7900, M100.6796, M100.637 #### [facility] [address] [place], [place], [address] Hematocrit (Bld) [Volume fraction] 44.4 % Normal 40-54 [facility] Comment on above: Order Comment: Order Date: 10/19/24Order Info: [id number] - CBC Performed By: #### L 7000.0750, L7000.0300, L7000.0700, M600.5000, M7400.3302, M100.0605, M100.7900, M100.6796, M100.637 #### [facility] [address] [place], [place], [id number] (351) Hemoglobin (Bld) [Mass/Vol] 15.2 g/dL Normal 13.0-16.5 [facility] Comment on above: Order Comment: Order Date: 10/19/24Order Info: [id number] - CBC Performed By: #### L 7000.0750, L7000.0300, L7000.0700, M600.5000, M7400.3302, M100.0605, M100.7900, M100.6796, M100.637 #### [facility] [address] [place], [address] MCH (RBC) [Entitic mass] 30.3 pg Normal 27.0-32.0 [facility] Comment on above: Order Comment: Order Date: 10/19/24Order Info: [id number] - CBC Performed By: #### L 7000.0750, L7000.0300, L7000.0700, M600.5000, M7400.3302, M100.0605, M100.7900, M100.6796, M100.637 #### [facility] [address] [place], [address] MCHC (RBC) [Mass/Vol] 34.2 g/dL Normal 32-36 [facility] Comment on above: Order Comment: Order Date: 10/19/24Order Info: [id number] - CBC Performed By: #### L 7000.0750, L7000.0300, L7000.0700, M600.5000, M7400.3302, M100.0605, M100.7900, M100.6796, M100.637 #### [facility] [address] [place], [address] MCV (RBC) [Entitic vol] 88.6 fL Normal 80-94 [facility] Comment on above: Order Comment: Order Date: 10/19/24Order Info: [id number] - CBC Performed By: #### L 7000.0750, L7000.0300, L7000.0700, M600.5000, M7400.3302, M100.0605, M100.7900, M100.6796, M100.637 #### [facility] [address] [place], [address] Platelet mean volume (Bld) [Entitic vol] 10.5 fL Normal 6.2-12.0 [facility] Comment on above: Order Comment: Order Date: 10/19/24Order Info: [id number] - CBC Performed By: #### L 7000.0750, L7000.0300, L7000.0700, M600.5000, M7400.3302, M100.0605, M100.7900, M100.6796, M100.637 #### [facility] [address] [place], [address] Platelets (Bld) [#/Vol] 261 10*3/uL Normal 150-450 [facility] Comment on above: Order Comment: Order Date: 10/19/24Order Info: [id number] - CBC Performed By: #### L 7000.0750, L7000.0300, L7000.0700, M600.5000, M7400.3302, M100.0605, M100.7900, M100.6796, M100.637 #### [facility] [address] [place], [address] RBC (Bld) [#/Vol] 5.01 10*6/uL Normal 4.6-6.2 [facility] Comment on above: Order Comment: Order Date: 10/19/24Order Info: [id number] - CBC Performed By: #### L 7000.0750, L7000.0300, L7000.0700, M600.5000, M7400.3302, M100.0605, M100.7900, M100.6796, M100.637 #### [facility] [address] [place], [address] RDW SD 41.8 fl Normal 35.1-43.9 [facility] Comment on above: Order Comment: Order Date: 10/19/24Order Info: [id number] - CBC Performed By: #### L 7000.0750, L7000.0300, L7000.0700, M600.5000, M7400.3302, M100.0605, M100.7900, M100.6796, M100.637 #### [facility] [address] [place], [place], [address] WBC (Bld) [#/Vol] 5.4 10*3/uL Normal 4.4-11.0 [facility] Comment on above: Order Comment: Order Date: 10/19/24Order Info: [id number] - CBC Performed By: #### L 7000.0750, L7000.0300, L7000.0700, M600.5000, M7400.3302, M100.0605, M100.7900, M100.6796, M100.637 #### [facility] [address] [facility] [place], [place], [address] Calculated very low density lipoprotein (VLDL) cholesterol measurementOrdered By: Mallory Mckeon on 10-19-2024 Calculated very low density lipoprotein (VLDL) cholesterol measurement 14 mg/dL -40 [facility] VLDL Cholesterol 14 mg/dL - [facility] Carbon dioxide, total [Moles /volume] in Central venous bloodOrdered By: Mallory Mckeon on 10-19-2024 CO2 [Moles/Vol] 18.1 mmol/L Low 21.0-32.0 [facility] Chloride assayOrdered By: Gisselle Mckeon on 10-19-2024 Chloride [Moles/Vol] 106 mmol/L 98-108 [facility] Comprehensive Metabolic Prof ilon 10-19-2024 Albumin [Mass/Vol] 4.4 g/dL Normal 3.5-5.0 [facility] Comment on above: Order Comment: Order Date: 10/19/24Order Info: [id number] - CMPOrder Info: [id number] - LIPIDOrder Info: [id number] - TSH Performed By: #### L 7000.0750, L7000.0300, L7000.0700, M600.5000, M7400.3302, M100.0605, M100.7900, M100.6796, M100.637 #### [facility] [address] [place], [address] Albumin/Globulin [Mass ratio] 1.6 {ratio} Normal 0.9-2.4 [facility] Comment on above: Order Comment: Order Date: 10/19/24Order Info: [id number] - CMPOrder Info: [id number] - LIPIDOrder Info: [id number] - TSH Performed By: #### L 7000.0750, L7000.0300, L7000.0700, M600.5000, M7400.3302, M100.0605, M100.7900, M100.6796, M100.637 #### [facility] [address] [place], [address] ALK PHOS 61 U/L Normal 40-129 [facility] Comment on above: Order Comment: Order Date: 10/19/24Order Info: 0786- - CMPOrder Info: [id number] - LIPIDOrder Info: [id number] - TSH Performed By: #### L 7000.0750, L7000.0300, L7000.0700, M600.5000, M7400.3302, M100.0605, M100.7900, M100.6796, M100.637 #### [facility] [address] [place], [address] ALT [Catalytic activity/Vol] 28 U/L Normal <=46 [facility] Comment on above: Order Comment: Order Date: 10/19/24Order Info: [id number] - CMPOrder Info: [id number] - LIPIDOrder Info: [id number] - TSH Performed By: #### L 7000.0750, L7000.0300, L7000.0700, M600.5000, M7400.3302, M100.0605, M100.7900, M100.6796, M100.637 #### [facility] [address] [place], [address] AST [Catalytic activity/Vol] 34 U/L Normal <=37 [facility] Comment on above: Order Comment: Order Date: 10/19/24Order Info: 0786- - CMPOrder Info: [id number] - LIPIDOrder Info: [id number] - TSH Performed By: #### L 7000.0750, L7000.0300, L7000.0700, M600.5000, M7400.3302, M100.0605, M100.7900, M100.6796, M100.637 #### [facility] [address] [place], [address] Bilirubin [Mass/Vol] 0.59 mg/dL Normal 0.00-1.30 [facility] Comment on above: Order Comment: Order Date: 10/19/24Order Info: 07 - CMPOrder Info: [id number] - LIPIDOrder Info: [id number] - TSH Performed By: #### L 7000.0750, L7000.0300, L7000.0700, M600.5000, M7400.3302, M100.0605, M100.7900, M100.6796, M100.637 #### [facility] [address] [place], [address] BUN/CRE 13.9 RATIO Normal 10-20 [facility] Comment on above: Order Comment: Order Date: 10/19/24Order Info: 0786- - CMPOrder Info: [id number] - LIPIDOrder Info: [id number] - TSH Performed By: #### L 7000.0750, L7000.0300, L7000.0700, M600.5000, M7400.3302, M100.0605, M100.7900, M100.6796, M100.637 #### [facility] [address] [place], [address] Calcium [Mass/Vol] 8.8 mg/dL Normal 7.6-11.0 [facility] Comment on above: Order Comment: Order Date: 10/19/24Order Info: 86- - CMPOrder Info: [id number] - LIPIDOrder Info: [id number] - TSH Performed By: #### L 7000.0750, L7000.0300, L7000.0700, M600.5000, M7400.3302, M100.0605, M100.7900, M100.6796, M100.637 #### [facility] [address] [place], [address] Chloride [Moles/Vol] 106 mmol/L Normal 98-108 [facility] Comment on above: Order Comment: Order Date: 10/19/24Order Info: 785- - CMPOrder Info: - LIPIDOrder Info: [id number] - TSH Performed By: #### L 7000.0750, L7000.0300, L7000.0700, M600.5000, M7400.3302, M100.0605, M100.7900, M100.6796, M100.637 #### [facility] [address] [place], [address] CO2 [Moles/Vol] 18.1 mmol/L Low 21.0-32.0 [facility] Comment on above: Order Comment: Order Date: 10/19/24Order Info: 07 - CMPOrder Info: [id number] - LIPIDOrder Info: [id number] - TSH Performed By: #### L 7000.0750, L7000.0300, L7000.0700, M600.5000, M7400.3302, M100.0605, M100.7900, M100.6796, M100.637 #### [facility] [address] [place], [address] Creatinine [Mass/Vol] 0.86 mg/dL Normal 0.70-1.20 [facility] Comment on above: Order Comment: Order Date: 10/19/24Order Info: 785- - CMPOrder Info: - LIPIDOrder Info: [id number] - TSH Performed By: #### L 7000.0750, L7000.0300, L7000.0700, M600.5000, M7400.3302, M100.0605, M100.7900, M100.6796, M100.637 #### [facility] [address] [place], [address] GAP 13 Normal 5-15 [facility] Comment on above: Order Comment: Order Date: 10/19/24Order Info: [id number] - CMPOrder Info: [id number] - LIPIDOrder Info: [id number] - TSH Performed By: #### L 7000.0750, L7000.0300, L7000.0700, M600.5000, M7400.3302, M100.0605, M100.7900, M100.6796, M100.637 #### [facility] [address] [place], [address] GFR/1.73 sq M.predicted among non-blacks MDRD (S/P/Bld) [Vol rate/Area] 114 mL/min/{1.73_m2} Normal >60 [facility] Comment on above: Order Comment: Order Date: 10/19/24Order Info: [id number] - CMPOrder Info: [id number] - LIPIDOrder Info: [id number] - TSH Result Comment: mL/m in/1.73m2 CKD-EPI Creatinine Equation (2020) Performed By: #### L 7000.0750, L7000.0300, L7000.0700, M600.5000, M7400.3302, M100.0605, M100.7900, M100.6796, M100.637 #### [facility] [address] [place], [address] Globulin (S) [Mass/Vol] 2.7 g/dL Normal 2.2-4.2 [facility] Comment on above: Order Comment: Order Date: 10/19/24Order Info: [id number] - CMPOrder Info: [id number] - LIPIDOrder Info: [id number] - TSH Performed By: #### L 7000.0750, L7000.0300, L7000.0700, M600.5000, M7400.3302, M100.0605, M100.7900, M100.6796, M100.637 #### [facility] [address] [place], [address] Glucose [Mass/Vol] 93 mg/dL Normal 70-99 [facility] Comment on above: Order Comment: Order Date: 10/19/24Order Info: [id number] - CMPOrder Info: [id number] - LIPIDOrder Info: [id number] - TSH Performed By: #### L 7000.0750, L7000.0300, L7000.0700, M600.5000, M7400.3302, M100.0605, M100.7900, M100.6796, M100.637 #### [facility] [address] [place], [address] Potassium [Moles/Vol] 4.4 mmol/L Normal 3.3-5.1 [facility] Comment on above: Order Comment: Order Date: 10/19/24Order Info: 07 - CMPOrder Info: [id number] - LIPIDOrder Info: [id number] - TSH Performed By: #### L 7000.0750, L7000.0300, L7000.0700, M600.5000, M7400.3302, M100.0605, M100.7900, M100.6796, M100.637 #### [facility] [address] [place], [address] Sodium [Moles/Vol] 137 mmol/L Normal 133-145 [facility] Comment on above: Order Comment: Order Date: 10/19/24Order Info: 07 - CMPOrder Info: [id number] - LIPIDOrder Info: [id number] - TSH Performed By: #### L 7000.0750, L7000.0300, L7000.0700, M600.5000, M7400.3302, M100.0605, M100.7900, M100.6796, M100.637 #### [facility] [address] [place], [place], [address] (632) T PROT 7.1 g/dL Normal 5.9-8.4 [facility] Comment on above: Order Comment: Order Date: 10/19/24Order Info: [id number] - CMPOrder Info: [id number] - LIPIDOrder Info: [id number] - TSH Performed By: #### L 7000.0750, L7000.0300, L7000.0700, M600.5000, M7400.3302, M100.0605, M100.7900, M100.6796, M100.637 #### [facility] [address] [place], [place], [address] Urea nitrogen [Mass/Vol] 12 mg/dL Normal 4-19 [facility] Comment on above: Order Comment: Order Date: 10/19/24Order Info: [id number] - CMPOrder Info: [id number] - LIPIDOrder Info: [id number] - TSH Performed By: #### L 7000.0750, L7000.0300, L7000.0700, M600.5000, M7400.3302, M100.0605, M100.7900, M100.6796, M100.637 #### [facility] [address] [place], [place], [address] Erythrocyte distribution wid th ratioOrdered By: Mallory Mckeon on 10-19-2024 Erythrocyte distribution width (RBC) [Ratio] 12.8 % 11.6-14.6 [facility] Erythrocyte distribution wid th standard deviationOrdered By: Mallory Mckeon on 10-19-2024 Erythrocyte distribution width (RBC) [Entitic vol] 41.8 fL 35.1-43.9 [facility] Erythrocyte distribution width (RBC) [Ratio] 41.8 fl 35.1-43.9 [facility] GFR/1.73 sq M.predicted kade g non-blacks MDRD (S/P/Bld) [Vol rate/Area]Ordered By: Mallory Mckeon on 10-19-2024 Estimated GFR (MDRD) Non-Af Amer 114 >60 [facility] Comment on above: mL/min/1.73m2 CKD-EP I Creatinine Equation (2020) Glomerular filtration rate ( GFR) estimation/1.73 sq m using serum, plasma, or whole bOrdered By: Mallory Mckeon on 10-19-2024 GFR/1.73 sq M.predicted among non-blacks MDRD (S/P/Bld) [Vol rate/Area] 114 mL/min/{1.73_m2} >60 [facility] Comment on above: mL/min/1.73m2 CKD-EP I Creatinine Equation (2020) Hematocrit Auto (Bld) [Volum e fraction]Ordered By: Mallory Mckeon on 10-19-2024 Hematocrit (Bld) [Volume fraction] 44.4 % 40-54 [facility] Hemoglobin measurementOrdere d By: Mallory Mckeon on 10-19-2024 Hemoglobin (Bld) [Mass/Vol] 15.2 g/dL 13.0-16.5 [facility] LDL calc ser/plasOrdered By: Mallory Mckeon on 10-19-2024 Cholesterol in LDL [Mass/Vol] 64 mg/dL [facility] Comment on above: Repppzbmfq=704-808 m g/dL & Higher Guhk=690 mg/dL or greater LDL Cholesterol, Calculated 64 mg/dL [facility] Comment on above: Pgpxfrtifg=448-119 m g/dL & Higher Krli=264 mg/dL or greater Laboratory - Chemistry and C hemistry - challengeOrdered By: Mallory Mckeon on 10-19-2024 AST [Catalytic activity/Vol] 34 U/L <38 [facility] Lipid Profileon 10-19-2024 CHOL:HDL 2.11 Normal [facility] Comment on above: Order Comment: Order Date: 10/19/24Order Info: [id number] - CMPOrder Info: [id number] - LIPIDOrder Info: [id number] - TSH Performed By: #### L 7000.0750, L7000.0300, L7000.0700, M600.5000, M7400.3302, M100.0605, M100.7900, M100.6796, M100.637 #### [facility] [address] [place], [address] Cholesterol [Mass/Vol] 148 mg/dL Normal <=200 [facility] Comment on above: Order Comment: Order Date: 10/19/24Order Info: [id number] - CMPOrder Info: [id number] - LIPIDOrder Info: [id number] - TSH Result Comment: Chol esterol level, Desirable <200 mg/dL Borderline high cholesterol 200-239 mg/dL High cholesterol >=240 mg/dL Recommendations of the NCEP Adult Treatment Panel for the following risk-cutoff thresholds for the [place] population. Performed By: #### L 7000.0750, L7000.0300, L7000.0700, M600.5000, M7400.3302, M100.0605, M100.7900, M100.6796, M100.637 #### [facility] [address] [place], [address] Cholesterol in HDL [Mass/Vol] 70 mg/dL Normal [facility] Comment on above: Order Comment: Order Date: 10/19/24Order Info: [id number] - CMPOrder Info: [id number] - LIPIDOrder Info: [id number] - TSH Result Comment: Pennie onal Cholesterol Education Program (NCEP) guidelines: <40 mg/dL: Low HDL-cholesterol (major risk factor for CHD) >= 60 mg/dL: High HDL-cholesterol (negative risk factor for CHD) HDL-cholesterol is affected by a number of factors, e.g. smoking, exercise, hormones, sex and age. Performed By: #### L 7000.0750, L7000.0300, L7000.0700, M600.5000, M7400.3302, M100.0605, M100.7900, M100.6796, M100.637 #### [facility] [address] [place], [place], [id number] Cholesterol in LDL [Mass/Vol] 64 mg/dL Normal [facility] Comment on above: Order Comment: Order Date: 10/19/24Order Info: 0786- - CMPOrder Info: [id number] - LIPIDOrder Info: [id number] - TSH Result Comment: Bord hbezcp=990-368 mg/dL Higher Pcas=252 mg/dL or greater Performed By: #### L 7000.0750, L7000.0300, L7000.0700, M600.5000, M7400.3302, M100.0605, M100.7900, M100.6796, M100.637 #### [facility] [address] [place], [place], [address] Cholesterol in VLDL [Mass/Vol] 14 mg/dL Normal 5-40 [facility] Comment on above: Order Comment: Order Date: 10/19/24Order Info: 0786- - CMPOrder Info: [id number] - LIPIDOrder Info: [id number] - TSH Performed By: #### L 7000.0750, L7000.0300, L7000.0700, M600.5000, M7400.3302, M100.0605, M100.7900, M100.6796, M100.637 #### [facility] [address] [place], [place], [id number] [phone] Triglyceride [Mass/Vol] 71 mg/dL Normal [facility] Comment on above: Order Comment: Order Date: 10/19/24Order Info: 0786- - CMPOrder Info: [id number] - LIPIDOrder Info: [id number] - TSH Result Comment: The drugs N-Acetylcysteine and Metamizole may falsely depress this assay. Normal range: <150 mg/dL Borderline High: 150-199 mg/dL High: 200-499 mg/dL Very High: >500 mg/dL Performed By: #### L 7000.0750, L7000.0300, L7000.0700, M600.5000, M7400.3302, M100.0605, M100.7900, M100.6796, M100.637 #### [facility] [place], [address] MCV (mean corpuscular volume ) determinationOrdered By: Mallory Mckeon on 10-19-2024 MCV (RBC) [Entitic vol] 88.6 fL 80-94 [facility] Mean corpuscular hemoglobin (MCH) determinationOrdered By: Mallory Mckeon on 10-19-2024 MCH (RBC) [Entitic mass] 30.3 pg 27.0-32.0 [facility] Mean corpuscular hemoglobin concentration (MCHC) determinationOrdered By: Mallory Mckeon on 10-19-2024 MCHC (RBC) [Mass/Vol] 34.2 g/dL 32-36 [facility] Mean platelet volume determi nationOrdered By: Mallory Mckeon on 10-19-2024 Platelet mean volume (Bld) [Entitic vol] 10.5 fL 6.2-12.0 [facility] Platelet countOrdered By: Gisselle Mckeon on 10-19-2024 Platelets (Bld) [#/Vol] 261 10*3/uL 150-450 [facility] Potassium (Unsp spec) [Mass/ Vol]Ordered By: Mallory Mckeon on 10-19-2024 Potassium [Moles/Vol] 4.4 mmol/L 3.3-5.1 [facility] Potassium measurement (mass/ volume)Ordered By: Mallory Mckeon on 10-19-2024 Potassium (Unsp spec) [Mass/Vol] 4.4 mmol/L 3.3-5.1 [facility] RBC Auto (Bld) [#/Vol]Ordere d By: Mallory Mckeon on 10-19-2024 RBC (Bld) [#/Vol] 5.01 10*6/uL 4.6-6.2 [facility] Screening total cholesterol/ high density lipoprotein (HDL) cholesterol ratioOrdered By: Mallory Mckeon on 10-19-2024 Cholesterol.total/Chol esterol in HDL [Mass ratio] 2.11 {ratio} [facility] Serum creatinine measurement (mass/volume)Ordered By: Mallory Mckeon on 10-19-2024 Creatinine [Mass/Vol] 0.86 mg/dL 0.70-1.20 [facility] Serum globulin measurementOr dered By: Mallory Mckeon on 10-19-2024 Globulin (S) [Mass/Vol] 2.7 g/dL 2.2-4.2 [facility] Serum glucose measurement (m ass/volume)Ordered By: Mallory Mckeon on 10-19-2024 Glucose [Mass/Vol] 93 mg/dL 70-99 [facility] Serum or plasma alanine vargas otransferase (ALT) measurementOrdered By: Mallory Mckeon on 10-19-2024 ALT [Catalytic activity/Vol] 28 U/L <47 [facility] Serum or plasma albumin rafa urement (mass/volume)Ordered By: Mallory Mckeon on 10-19-2024 Albumin [Mass/Vol] 4.4 g/dL 3.5-5.0 [facility] Serum or plasma albumin/glob ulin mass ratioOrdered By: Mallory Mckeon on 10-19-2024 Albumin/Globulin [Mass ratio] 1.6 {ratio} 0.9-2.4 [facility] Serum or plasma alkaline tisha sphatase measurementOrdered By: Mallory Mckeon on 10-19-2024 ALP [Catalytic activity/Vol] 61 U/L 40-129 [facility] Serum or plasma calcium rafa urement (mass/volume)Ordered By: Mallory Mckeon on 10-19-2024 Calcium [Mass/Vol] 8.8 mg/dL 7.6-11.0 [facility] Serum or plasma cholesterol in HDL measurement (mass/volume)Ordered By: Mallory Mckeon on 10-19-2024 Cholesterol in HDL [Mass/Vol] 70 mg/dL >40 [facility] Comment on above: National Cholesterol Education Program (NCEP) guidelines:<40 mg/dL: Low HDL-cholesterol (major risk factor for CHD)>= 60 mg/dL: High HDL-cholesterol (negative risk factor for CHD)HDL-cholesterol is affected by a number of factors, e.g. smoking, exercise, hormones, sex and age. Serum or plasma cholesterol measurement (mass/volume)Ordered By: Mallory Mckeon on 10-19-2024 Cholesterol [Mass/Vol] 148 mg/dL <201 [facility] Comment on above: Cholesterol level, D esirable <200 mg/dLBorderline high cholesterol 200-239 mg/dLHigh cholesterol >=240 mg/dLRecommendations of the NCEP Adult Treatment Panel for the following risk-cutoff thresholds for the [place] population. Serum or plasma urea nitroge n measurement (mass/volume)Ordered By: Mallory Mckeon on 10-19-2024 Urea nitrogen [Mass/Vol] 12 mg/dL 4-19 [facility] Sodium levelOrdered By: Yogesh Mckeon on 10-19-2024 Sodium [Moles/Vol] 137 mmol/L 133-145 [facility] TSH DL <= 0.005 mIU/L QnOrde red By: Mallory Mckeon on 10-19-2024 Thyroid Stimulating Hormone (TSH) 3.810 uIU/mL 0.300-4.200 [facility] TSH Qn 3.810 uIU/mL 0.300-4.200 [facility] Thyroid Stim Hormone (TSH)on 10-19-2024 TSH 3.810 uIU/mL Normal 0.300-4.200 [facility] Comment on above: Order Comment: Order Date: 10/19/24Order Info: [id number] - CMPOrder Info: [id number] - LIPIDOrder Info: [id number] - TSH Performed By: #### L 7000.0750, L7000.0300, L7000.0700, M600.5000, M7400.3302, M100.0605, M100.7900, M100.6796, M100.637 #### [facility] [address] [place], [place], [address] Total proteinOrdered By: Hyun Mckeon on 10-19-2024 Protein [Mass/Vol] 7.1 g/dL 5.9-8.4 [facility] Triglycerides measurementOrd ered By: Mallory Mckeon on 10-19-2024 Triglyceride [Mass/Vol] 71 mg/dL <199 [facility] Comment on above: The drugs N-Acetylcy steine and Metamizole may falsely depress this assay. Normal range: <150 mg/dLBorderline High: 150-199 mg/dLHigh: 200-499 mg/dLVery High: >500 mg/dL White blood cell (WBC) count Ordered By: Mallory Mckeon on 10-19-2024 WBC (Bld) [#/Vol] 5.4 10*3/uL 4.4-11.0 [facility] Gastroenterology Visit Repor ton 08-18-2024 Gastroenterology Visit Report [facility] [address] [place] [address] OFFICE VISIT Date of Service: 08/18/24 MR#: [id number] Acct: [id number] Name: EUNICE VARGAS Rep #: [id number] : 1985 Provider: Tom Campbell DO Age/Sex: 38/M Location: [facility] Status: Signed Intake Vital Signs 08/14/23 [...] Appearance: average body habitus and well nourished [facility] Head: normal to inspection Ears: hearing [...] future. He (more content not included)... Normal [facility] 07-15-2024 [facility] Office Visit (UCWSTR ) EUNICE VARGAS ([id number]) 1985 Date Time Provider Department 07/15/24 8:15 AM MADI BARFIELD [facility] During your visit today, we [...] 01/21/2023 Level of Service: OFFICE/OUTPATIENT ESTABLISHED LOW [facility] 20 MIN [42321] Encounter Status:Closed by MADI BARFIELD on 07/15/24 Normal [facility] ABD Limited w/ Elastographyo n 05-25-2024 ABD Limited w/ Elastography [facility] Imaging Services [address] [place] [id number] ABD Limited w/ Elastography MR#: [id number] Acct: [id number] Name: EUNICE VARGAS Rep #: [id number] : 1985 M 38 From: Arcadio umanzor MD PCP: PERLA Cleaning Status: REG CLI Study: ABD Limited w/ Elastography Date of Exam: 05/11 01/01 Exam# [id number] Ordering Dr: Tom Campbell DO [id number] STUDY: ABDOMINAL ULTRASOUND - RIGHT UPPER QUADRANT; ELASTOGRAPHY REASON FOR VISIT: Male, 38 years old. Hepatomegaly. TECHNIQUE: Ultrasound evaluation of the right upper quadrant was performed with real-time and static potts-scale imaging. Point quantification shear wave elastography was performed (Globoforce). TECHNICAL QUALITY: Adequate. COMPARISON: Comparison is made [...] 13:56 EDT , CC: PERLA Raza; Tom Campbell, Drawing Instructor: Signed Normal [facility] M7400.3302on 05-24-2024 M7400.3302 ___ TESTING PERFORMED AT [facility]. ORIGINAL REPORT ON FILE IN LAB CONTAINS ADDITIONAL TEST SITE INFORMATION. ___ Giardia Lamblia EIA NEGATIVE [facility] Comment on above: Performed By: #### L 7000.0750, L7000.0300, L7000.0700, M600.5000, M7400.3302, M100.0605, M100.7900, M100.6796, M100.637 #### [facility] [address] [place], [address] Ova and Parasites 8623on OP OVA AND PARASITES EX AM, ROUTINE These results were obtained using wet preparation(s) and trichrome stained smear. This test does not include testing for Crytosporidium parvum, Cyclospora, or Microsporidia. One negative specimen does not rule out the possibility of a parasitic infection. ___ TESTING PERFORMED AT [facility]. ORIGINAL REPORT ON FILE IN LAB CONTAINS ADDITIONAL TEST SITE INFORMATION. ___ Ova/Parasite Exam NO OVA, CYSTS, OR PARASITES FOUND. [facility] Comment on above: Performed By: #### L 7000.0750, L7000.0300, L7000.0700, M600.5000, M7400.3302, M100.0605, M100.7900, M100.6796, M100.637 #### [facility] [address] [place], [place], [address] Calprotectin, Stoolon [address] 56 ug/g Normal 0-120 [facility] Comment on above: Order Comment: Test( s) 734490-Cdly, Neutral; 678589-Ufsx, Total was developed and its performance characteristics determined by [facility]. It has not been cleared or approved by the Food and Drug Administration. Result Comment: Conc entration Interpretation Follow-Up < 5 - 50 ug/g Normal None >50 -120 ug/g Borderline Re-evaluate in 4-6 weeks >120 ug/g Abnormal Repeat as clinically indicated Performed at: [facility] [address] [id number] Rigger Supervisor: Sai Moran PhD, Phone: [phone] Performed at: [facility] Lab[address] [id number] Rigger Supervisor: Morgan Vizcarra MD, Phone: [phone] Performed By: #### L 7000.0750, L7000.0300, L7000.0700, M600.5000, M7400.3302, M100.0605, M100.7900, M100.6796, M100.637 #### [facility] [address] [place], [place], [address] Fecal Fat, Qualitativeon FATS, NEUTRAL Normal Normal . [facility] Comment on above: Order Comment: Test( s) 069961-Nwct, Neutral; 931991-Gdez, Total was developed and its performance characteristics determined by [facility]. It has not been cleared or approved by the Food and Drug Administration. Result Comment: Norm al (<60 Droplets/HPF) Performed By: #### L 7000.0750, L7000.0300, L7000.0700, M600.5000, M7400.3302, M100.0605, M100.7900, M100.6796, M100.637 #### [facility] [address] [place], [address] FATS, TOTAL Normal Normal . [facility] Comment on above: Order Comment: Test( s) 023974-Ufvb, Neutral; 176600-Ezzl, Total was developed and its performance characteristics determined by [facility] [employer]. It has not been cleared or approved by the Food and Drug Administration. Result Comment: Norm al (<100 Droplets/HPF) Performed By: #### L 7000.0750, L7000.0300, L7000.0700, M600.5000, M7400.3302, M100.0605, M100.7900, M100.6796, M100.637 #### [facility] [address] [place], [place], [address] L7000.0750on 05-18-2024 P ELASTASE,FECA > 800 Normal >200 [facility] Comment on above: Result Comment: Resu lt Units: ug Elast./g Stool of watery consistency received. Since watery stool is inherently dilute, low test results should be interpreted with caution. Retesting on formed stool, if possible, is recommended. Severe Pancreatic Insufficiency: <100 Moderate Pancreatic Insufficiency: 100 - 200 Normal: >200 Performed at: [address] [id number] Rigger Supervisor: Morgan Vizcarra MD, Phone: [phone] Performed By: #### L 7000.0750, L7000.0300, L7000.0700, M600.5000, M7400.3302, M100.0605, M100.7900, M100.6796, M100.637 #### [facility] [address] [place], [place], [address] DEVANTE Comprehensive Panelon DEVANTE TABLE Comment Normal . [facility] Comment on above: Result Comment: Auto [...] Sm (anti-Girard) SLE 15 - 30% --------- VISUAL DISPLAY ASSOCIATE Mixed Connective Tissue Disease 95% (U1 nRNP, SLE 30 - 50% anti-ribonucleoprotein) Polymyositis and/or Dermatomyositis 20% --------- Scl-70 (antiDNA Scleroderma (diffuse) 20 - 35% topoisomerase) Crest 13% --------- Maggi-1 Polymyositis and/or Dermatomyositis 20 - 40% --------- Centromere B Scleroderma - Crest variant 80% Performed By: #### L 7000.0750, L7000.0300, L7000.0700, M600.5000, M7400.3302, M100.0605, M100.7900, M100.6796, M100.637 #### [facility] [address] [place], [address] ANTI-CENT B AB <0.2 Normal 0.0-0.9 [facility] Comment on above: Performed By: #### L 7000.0750, L7000.0300, L7000.0700, M600.5000, M7400.3302, M100.0605, M100.7900, M100.6796, M100.637 #### [facility] [address] [facility] [place], [address] ANTI-DNA (DS)AB <1 Normal 0-9 [facility] Comment on above: Result Comment: Nega tive <5 Equivocal 5 - 9 Positive >9 Performed By: #### L 7000.0750, L7000.0300, L7000.0700, M600.5000, M7400.3302, M100.0605, M100.7900, M100.6796, M100.637 #### [facility] [address] [facility] [place], [address] ANTI-MAGGI-1 <0.2 Normal 0.0-0.9 [facility] Comment on above: Performed By: #### L 7000.0750, L7000.0300, L7000.0700, M600.5000, M7400.3302, M100.0605, M100.7900, M100.6796, M100.637 #### [facility] [address] [place], [address] ANTI-SS-A < 0.2 Normal 0.0-0.9 [facility] Comment on above: Performed By: #### L 7000.0750, L7000.0300, L7000.0700, M600.5000, M7400.3302, M100.0605, M100.7900, M100.6796, M100.637 #### [facility] [address] [place], [address] ANTI-SS-B < 0.2 Normal 0.0-0.9 [facility] Comment on above: Performed By: #### L 7000.0750, L7000.0300, L7000.0700, M600.5000, M7400.3302, M100.0605, M100.7900, M100.6796, M100.637 #### [facility] [address] [place], [address] ANTICHROMATIN <0.2 Normal 0.0-0.9 [facility] Comment on above: Performed By: #### L 7000.0750, L7000.0300, L7000.0700, M600.5000, M7400.3302, M100.0605, M100.7900, M100.6796, M100.637 #### [facility] [address] [place], [address] ANTISCLERODERM <0.2 Normal 0.0-0.9 [facility] Comment on above: Performed By: #### L 7000.0750, L7000.0300, L7000.0700, M600.5000, M7400.3302, M100.0605, M100.7900, M100.6796, M100.637 #### [facility] [address] [place], [place], [address] VISUAL DISPLAY ASSOCIATE Ab 0.5 AI Normal 0.0-0.9 [facility] Comment on above: Performed By: #### L 7000.0750, L7000.0300, L7000.0700, M600.5000, M7400.3302, M100.0605, M100.7900, M100.6796, M100.637 #### [facility] [address] [place], [place], [address] GIRARD Ab <0.2 Normal 0.0-0.9 [facility] Comment on above: Performed By: #### L 7000.0750, L7000.0300, L7000.0700, M600.5000, M7400.3302, M100.0605, M100.7900, M100.6796, M100.637 #### [facility] [address] [place], [place], [address] ANCAon 05-14-2024 Atypical pANCA <1:20 Normal Neg:<1:20 [facility] Comment on above: Order Comment: Test( s) 952585-Kmnwdo, Serum or Plasmawas developed and its performance characteristicsdetermined by [facility]. It has not been cleared or approvedby the Food and Drug Administration.N Result Comment: The atypical pANCA pattern has been observed in a significant percentage of patients with ulcerative colitis, primary sclerosing cholangitis and autoimmune hepatitis. Performed By: #### L 7000.0750, L7000.0300, L7000.0700, M600.5000, M7400.3302, M100.0605, M100.7900, M100.6796, M100.637 #### [facility] [address] [place], [address] Cytoplasmic Ab <1:20 Normal Neg:<1:20 [facility] Comment on above: Order Comment: Test( s) 412427-Wazajp, Serum or Plasmawas developed and its performance characteristicsdetermined by [facility]. It has not been cleared or approvedby the Food and Drug Administration.N Performed By: #### L 7000.0750, L7000.0300, L7000.0700, M600.5000, M7400.3302, M100.0605, M100.7900, M100.6796, M100.637 #### [facility] [address] [place], [address] Perinuclear Ab. <1:20 Normal Neg:<1:20 [facility] Comment on above: Order Comment: Test( s) 711618-Rdquuz, Serum or Plasmawas developed and its performance characteristicsdetermined by [facility]. It has not been cleared or approvedby [...] up testing of positive sera with both AZ- 3 and MPO-ANCA enzyme immunoassays. As many as 5% serum samples are positive only by EIA. Ref. AM J Clin Pathol 1999;111:507-513. Performed By: #### L 7000.0750, L7000.0300, L7000.0700, M600.5000, M7400.3302, M100.0605, M100.7900, M100.6796, M100.637 #### [facility] [address] [place], [address] Angiotensin Convert Enzymeon 05-14-2024 ANGIOT-CONV.ENZ 65 U/L Normal 14-82 [facility] Comment on above: Order Comment: Test( s) 622291-Yhmncn, Serum or Plasmawas developed and its performance characteristicsdetermined by [facility]. It has not been cleared or approvedby the Food and Drug Administration.N Performed By: #### L 7000.0750, L7000.0300, L7000.0700, M600.5000, M7400.3302, M100.0605, M100.7900, M100.6796, M100.637 #### [facility] [address] [facility] [place], [address] Anti-Mitochondrial ABon ANTIMITOCHON AB <20.0 Normal 0.0-20.0 [facility] Comment on above: Result Comment: Nega tive 0.0 - 20.0 Equivocal 20.1 - 24.9 Positive >24.9 Mitochondrial (M2) Antibodies are found in 90-96% of patients with primary biliary cirrhosis. Performed By: #### L 7000.0750, L7000.0300, L7000.0700, M600.5000, M7400.3302, M100.0605, M100.7900, M100.6796, M100.637 #### [facility] [address] [place], [place], [id number] Anti-Smooth Muscle ABSon ANTISMOOTH MUSC 4 Units Normal 0-19 [facility] Comment on above: Order Comment: Test( s) 104252-Blucau, Serum or Plasmawas developed and its performance characteristicsdetermined by [facility]. It has not been cleared or approvedby [...] [facility] [address] [place], [place], [address] CDIFF (PCR)on 05-14-2024 CDIFF Pending [phone] NAP1-B1 Presumptive Negative *for epidemiolologic???use C. Diff PCR Negative- No toxigenic C. Diff Detected Normal [facility] Comment on above: Performed By: #### L 7000.0750, L7000.0300, L7000.0700, M600.5000, M7400.3302, M100.0605, M100.7900, M100.6796, M100.637 #### [facility] [address] [place], [address] Celiac Disease Profileon ENDOMYSIAL IGA Negative Normal Negative [facility] Comment on above: Order Comment: Test( s) 452913-Lihglx, Serum or Plasmawas developed and its performance characteristicsdetermined by [facility]. It has not been cleared or approvedby the Food and Drug Administration.N Performed By: #### L 7000.0750, L7000.0300, L7000.0700, M600.5000, M7400.3302, M100.0605, M100.7900, M100.6796, M100.637 #### [facility] [address] [place], [place], [address] tTG IGA <2 Normal 0-3 [facility] Comment on above: Order Comment: Test( s) 491015-Nbsdcq, Serum or Plasmawas developed and its performance characteristicsdetermined by [facility]. It has not been cleared or approvedby [...] M600.5000, M7400.3302, M100.0605, M100.7900, M100.6796, M100.637 #### [facility] [address] [place], [place], [id number] Ceruloplasminon 05-14-2024 CERULOPLASMIN 30.8 mg/dL Normal 16.0-31.0 [facility] Comment on above: Order Comment: Test( s) 571322-Aggphy, Serum or Plasmawas developed and its performance characteristicsdetermined by [facility]. It has not been cleared or approvedby the Food and Drug Administration.N Performed By: #### L 7000.0750, L7000.0300, L7000.0700, M600.5000, M7400.3302, M100.0605, M100.7900, M100.6796, M100.637 #### [facility] [address] [facility] [place], [address] Copper, Serum or Plasmaon COPPER, SERUM 124 ug/dL Normal 69-132 [facility] Comment on above: Order Comment: Test( s) 808570-Uflghw, Serum or Plasmawas developed and its performance characteristicsdetermined by [facility]. It has not been cleared or approvedby the Food and Drug Administration.N Result Comment: Dete ction Limit = 5 Performed at: [address] [id number] Rigger Supervisor: Sai Moran PhD, Phone: [phone] Performed at: [address] [id number] Rigger Supervisor: Morgan Vizcarra MD, Phone: [phone] Performed By: #### L 7000.0750, L7000.0300, L7000.0700, M600.5000, M7400.3302, M100.0605, M100.7900, M100.6796, M100.637 #### [facility] [address] [place], [address] ENTERIC PATHOGEN PANEL STOOL on [...] VIBRIO Not Detected Yersinia Not Detected Normal [facility] Comment on above: Performed By: #### L 7000.0750, L7000.0300, L7000.0700, M600.5000, M7400.3302, M100.0605, M100.7900, M100.6796, M100.637 #### [facility] [address] [place], [place], [address] Hepatitis Panel Acuteon HEP B CORE,IgM Negative Normal Negative [facility] Comment on above: Order Comment: Test( s) 953600-Rqgysj, Serum or Plasmawas developed and its performance characteristicsdetermined by [facility]. It has not been cleared or approvedby the Food and Drug Administration.N Performed By: #### L 7000.0750, L7000.0300, L7000.0700, M600.5000, M7400.3302, M100.0605, M100.7900, M100.6796, M100.637 #### [facility] [address] [place], [place], [id number] HEP B SURF AG Negative Normal Negative [facility] Comment on above: Order Comment: Test( s) 274785-Weoaki, Serum or Plasmawas developed and its performance characteristicsdetermined by [facility]. It has not been cleared or approvedby the Food and Drug Administration.N Performed By: #### L 7000.0750, L7000.0300, L7000.0700, M600.5000, M7400.3302, M100.0605, M100.7900, M100.6796, M100.637 #### [facility] [address] [place], [address] HEP C VIRUS AB Non-Reactive Normal Non Reactive [facility] Comment on above: Order Comment: Test( s) 545254-Wijkkh, Serum or Plasmawas developed and its performance characteristicsdetermined by [facility]. It has not been cleared or approvedby the Food and Drug Administration.N Performed By: #### L 7000.0750, L7000.0300, L7000.0700, M600.5000, M7400.3302, M100.0605, M100.7900, M100.6796, M100.637 #### [facility] [address] [place], [address] HEPATITIS A-IgM Negative Normal Negative [facility] Comment on above: Order Comment: Test( s) 250783-Gkmkhs, Serum or Plasmawas developed and its performance characteristicsdetermined by [facility]. It has not been cleared or approvedby the Food and Drug Administration.N Result Comment: A ne gative anti-HAV IgM result suggests no recent or current HAV infection. Performed By: #### L 7000.0750, L7000.0300, L7000.0700, M600.5000, M7400.3302, M100.0605, M100.7900, M100.6796, M100.637 #### [facility] [address] [place], [address] JENNIFER + Protein Elect, Serumon 05-14-2024 Albumin [Mass/Vol] 4.1 g/dL Normal 2.9-4.4 [facility] Comment on above: Order Comment: Test( s) 810573-Uenmue, Serum or Plasmawas developed and its performance characteristicsdetermined by [facility]. It has not been cleared or approvedby the Food and Drug Administration.N Performed By: #### L 7000.0750, L7000.0300, L7000.0700, M600.5000, M7400.3302, M100.0605, M100.7900, M100.6796, M100.637 #### [facility] [address] [place], [place], [id number] [phone] Albumin/Globulin [Mass ratio] 1.4 {ratio} Normal 0.7-1.7 [facility] Comment on above: Order Comment: Test( s) 695499-Pdxfik, Serum or Plasmawas developed and its performance characteristicsdetermined by [facility]. It has not been cleared or approvedby the Food and Drug Administration.N Performed By: #### L 7000.0750, L7000.0300, L7000.0700, M600.5000, M7400.3302, M100.0605, M100.7900, M100.6796, M100.637 #### [facility] [address] [place], [address] ESHIR-4-SKRM 0.2 g/dL Normal 0.0-0.4 [facility] Comment on above: Order Comment: Test( s) 958663-Oskrsd, Serum or Plasmawas developed and its performance characteristicsdetermined by [facility]. It has not been cleared or approvedby the Food and Drug Administration.N Performed By: #### L 7000.0750, L7000.0300, L7000.0700, M600.5000, M7400.3302, M100.0605, M100.7900, M100.6796, M100.637 #### [facility] [address] [place], [place], [id number] ([phone] LIPQL-7-LGOH 0.9 g/dL Normal 0.4-1.0 [facility] Comment on above: Order Comment: Test( s) 753412-Rkaltb, Serum or Plasmawas developed and its performance characteristicsdetermined by [facility]. It has not been cleared or approvedby the Food and Drug Administration.N Performed By: #### L 7000.0750, L7000.0300, L7000.0700, M600.5000, M7400.3302, M100.0605, M100.7900, M100.6796, M100.637 #### [facility] [address] [place], [address] BETA GLOBULIN 1.0 g/dL Normal 0.7-1.3 [facility] Comment on above: Order Comment: Test( s) 335181-Mbzevg, Serum or Plasmawas developed and its performance characteristicsdetermined by [facility]. It has not been cleared or approvedby the Food and Drug Administration.N Performed By: #### L 7000.0750, L7000.0300, L7000.0700, M600.5000, M7400.3302, M100.0605, M100.7900, M100.6796, M100.637 #### [facility] [address] [place], [address] GAMMA GLOBULIN 0.9 g/dL Normal 0.4-1.8 [facility] Comment on above: Order Comment: Test( s) 921605-Lvlnfq, Serum or Plasmawas developed and its performance characteristicsdetermined by [facility]. It has not been cleared or approvedby the Food and Drug Administration.N Performed By: #### L 7000.0750, L7000.0300, L7000.0700, M600.5000, M7400.3302, M100.0605, M100.7900, M100.6796, M100.637 #### [facility] [address] [place], [address] Globulin (S) [Mass/Vol] 3.0 g/dL Normal 2.2-3.9 [facility] Comment on above: Order Comment: Test( s) 519666-Txpngn, Serum or Plasmawas developed and its performance characteristicsdetermined by [facility]. It has not been cleared or approvedby the Food and Drug Administration.N Performed By: #### L 7000.0750, L7000.0300, L7000.0700, M600.5000, M7400.3302, M100.0605, M100.7900, M100.6796, M100.637 #### [facility] [address] [place], [address] JENNIFER RESULT,S Comment Normal . [facility] Comment on above: Order Comment: Test( s) 485678-Hnejyu, Serum or Plasmawas developed and its performance characteristicsdetermined by [facility]. It has not been cleared or approvedby the Food and Drug Administration.N Result Comment: No m onoclonality detected. Performed By: #### L 7000.0750, L7000.0300, L7000.0700, M600.5000, M7400.3302, M100.0605, M100.7900, M100.6796, M100.637 #### [facility] [address] [place], [address] IMMUNOGLOB A QN 273 mg/dL Normal 90-386 [facility] Comment on above: Order Comment: Test( s) 709996-Lkiybz, Serum or Plasmawas developed and its performance characteristicsdetermined by [facility]. It has not been cleared or approvedby the Food and Drug Administration.N Performed By: #### L 7000.0750, L7000.0300, L7000.0700, M600.5000, M7400.3302, M100.0605, M100.7900, M100.6796, M100.637 #### [facility] [address] [place], [address] IMMUNOGLOB G QN 894 mg/dL Normal 603-1613 [facility] Comment on above: Order Comment: Test( s) 991646-Ksxxkz, Serum or Plasmawas developed and its performance characteristicsdetermined by [facility]. It has not been cleared or approvedby the Food and Drug Administration.N Performed By: #### L 7000.0750, L7000.0300, L7000.0700, M600.5000, M7400.3302, M100.0605, M100.7900, M100.6796, M100.637 #### [facility] [address] [place], [place], [id number] IMMUNOGLOB M QN 159 mg/dL Normal 20-172 [facility] Comment on above: Order Comment: Test( s) 780130-Ehhods, Serum or Plasmawas developed and its performance characteristicsdetermined by [facility]. It has not been cleared or approvedby the Food and Drug Administration.N Performed By: #### L 7000.0750, L7000.0300, L7000.0700, M600.5000, M7400.3302, M100.0605, M100.7900, M100.6796, M100.637 #### [facility] [address] [place], [place], [address] M-Andrew Not Observed Normal Not Observed [facility] Comment on above: Order Comment: Test( s) 893820-Mpkxix, Serum or Plasmawas developed and its performance characteristicsdetermined by [facility]. It has not been cleared or approvedby the Food and Drug Administration.N Performed By: #### L 7000.0750, L7000.0300, L7000.0700, M600.5000, M7400.3302, M100.0605, M100.7900, M100.6796, M100.637 #### [facility] [address] [place], [place], [address] NOTE: Comment Normal . [facility] Comment on above: Order Comment: Test( s) 075097-Nngfdm, Serum or Plasmawas developed and its performance characteristicsdetermined by [facility]. It has not been cleared or approvedby the Food and Drug Administration.N Result Comment: Prot ein electrophoresis scan will follow via computer, mail, or gift basket packer delivery. Performed By: #### L 7000.0750, L7000.0300, L7000.0700, M600.5000, M7400.3302, M100.0605, M100.7900, M100.6796, M100.637 #### [facility] [address] [place], [address] Protein [Mass/Vol] 7.1 g/dL Normal 6.0-8.5 [facility] Comment on above: Order Comment: Test( s) 695230-Zuypsw, Serum or Plasmawas developed and its performance characteristicsdetermined by [facility]. It has not been cleared or approvedby the Food and Drug Administration.N Performed By: #### L 7000.0750, L7000.0300, L7000.0700, M600.5000, M7400.3302, M100.0605, M100.7900, M100.6796, M100.637 #### [facility] [address] [place], [address] Immunoglobulins G/A/M/Jake IMMUNOGLOB E QN 210 IU/mL Normal 6-495 [facility] Comment on above: Order Comment: Test( s) 287597-Dtdwkb, Serum or Plasmawas developed and its performance characteristicsdetermined by [facility]. It has not been cleared or approvedby the Food and Drug Administration.N Performed By: #### L 7000.0750, L7000.0300, L7000.0700, M600.5000, M7400.3302, M100.0605, M100.7900, M100.6796, M100.637 #### [facility] [address] [place], [address] L2100.0000on 05-14-2024 ACCA 34 units Normal 0-90 [facility] Comment on above: Order Comment: Test( s) 713954-Gujzaz, Serum or Plasmawas developed and its performance characteristicsdetermined by [facility]. It has not been cleared or approvedby the Food and Drug Administration.N Result Comment: Nega tive: <80 Equivocal: 80-90 Positive: >90 Performed By: #### L 7000.0750, L7000.0300, L7000.0700, M600.5000, M7400.3302, M100.0605, M100.7900, M100.6796, M100.637 #### [facility] [address] [place], [place], [address] ALCA 9 units Normal 0-60 [facility] Comment on above: Order Comment: Test( s) 597586-Civpkg, Serum or Plasmawas developed and its performance characteristicsdetermined by [facility] with [facility]. It has not been cleared or approvedby the Food and Drug Administration.N Result Comment: Nega tive:<55 Equivocal: 55-60 Positive: >60 Performed By: #### L 7000.0750, L7000.0300, L7000.0700, M600.5000, M7400.3302, M100.0605, M100.7900, M100.6796, M100.637 #### [facility] [address] [place], [address] AMCA 32 units Normal 0-100 [facility] Comment on above: Order Comment: Test( s) 689812-Jjeppg, Serum or Plasmawas developed and its performance [...] M600.5000, M7400.3302, M100.0605, M100.7900, M100.6796, M100.637 #### [facility] [address] [place], [address] Atypical pANCA Negative Normal Negative [facility] Comment on above: Order Comment: Test( s) 806184-Yislug, Serum or Plasmawas developed and its performance characteristicsdetermined by [facility]. It has not been cleared or approvedby the Food and Drug Administration.N Performed By: #### L 7000.0750, L7000.0300, L7000.0700, M600.5000, M7400.3302, M100.0605, M100.7900, M100.6796, M100.637 #### [facility] [address] [place], [address] COMMENT Comment Normal . [facility] Comment on above: Order Comment: Test( s) 386866-Mrpzez, Serum or Plasmawas developed and its performance characteristicsdetermined by [facility]. It has not been cleared or approvedby the Food and Drug Administration.N Result Comment: Myranda rain is not suggestive of Inflammatory Bowel Disease Performed By: #### L 7000.0750, L7000.0300, L7000.0700, M600.5000, M7400.3302, M100.0605, M100.7900, M100.6796, M100.637 #### [facility] [address] [place], [address] Result Comment: Not infected with HCV unless early or acute infection is suspected (which may be delayed in an immunocompromised individual), or other evidence exists to indicate HCV infection. Shilpi 8 units Normal 0-50 [facility] Comment on above: Order Comment: Test( s) 198337-Jsioll, Serum or Plasmawas developed and its performance characteristicsdetermined by [facility]. It has not been cleared or approvedby the Food and Drug Administration.N Result Comment: Nega tive: <45 Equivocal: 45-50 Positive: >50 Performed By: #### L 7000.0750, L7000.0300, L7000.0700, M600.5000, M7400.3302, M100.0605, M100.7900, M100.6796, M100.637 #### [facility] [address] [place], [place], [id number] L5500.0550on 05-14-2024 BEEF <0.10 Normal Class 0 [facility] Comment on above: Performed By: #### L 7000.0750, L7000.0300, L7000.0700, M600.5000, M7400.3302, M100.0605, M100.7900, M100.6796, M100.637 #### [facility] [address] [place], [address] CHOCOLATE <0.10 Normal Class 0 [facility] Comment on above: Performed By: #### L 7000.0750, L7000.0300, L7000.0700, M600.5000, M7400.3302, M100.0605, M100.7900, M100.6796, M100.637 #### [facility] [address] [place], [place], [address] CODFISH <0.10 Normal Class 0 [facility] Comment on above: Performed By: #### L 7000.0750, L7000.0300, L7000.0700, M600.5000, M7400.3302, M100.0605, M100.7900, M100.6796, M100.637 #### [facility] [address] [place], [place], [address] COMMENT Comment Normal . [facility] Comment on above: Result Comment: Magdalena [...] M600.5000, M7400.3302, M100.0605, M100.7900, M100.6796, M100.637 #### [facility] [address] [place], [address] CORN 0.17 kU/L Abnormal Class 0/I [facility] Comment on above: Performed By: #### L 7000.0750, L7000.0300, L7000.0700, M600.5000, M7400.3302, M100.0605, M100.7900, M100.6796, M100.637 #### [facility] [address] [place], [address] EGG, WHOLE <0.10 Normal Class 0 [facility] Comment on above: Result Comment: Perf ormed at: [facility] [id number] Rigger Supervisor: Sai Moran PhD, Phone: [phone] Performed at: [facility] [id number] Rigger Supervisor: Morgan Vizcarra MD, Phone: [phone] Performed By: #### L 7000.0750, L7000.0300, L7000.0700, M600.5000, M7400.3302, M100.0605, M100.7900, M100.6796, M100.637 #### [facility] [address] [place], [address] MILK (COW) 0.17 kU/L Abnormal Class 0/I [facility] Comment on above: Performed By: #### L 7000.0750, L7000.0300, L7000.0700, M600.5000, M7400.3302, M100.0605, M100.7900, M100.6796, M100.637 #### [facility] [address] [place], [address] MUSSELS <0.10 Normal Class 0 [facility] Comment on above: Performed By: #### L 7000.0750, L7000.0300, L7000.0700, M600.5000, M7400.3302, M100.0605, M100.7900, M100.6796, M100.637 #### [facility] [address] [place], [place], [id number] [phone] PEANUT 0.21 kU/L Abnormal Class 0/I [facility] Comment on above: Performed By: #### L 7000.0750, L7000.0300, L7000.0700, M600.5000, M7400.3302, M100.0605, M100.7900, M100.6796, M100.637 #### [facility] [address] [place], [place], [id number] ([phone] PORK 0.78 kU/L Abnormal Class II [facility] Comment on above: Performed By: #### L 7000.0750, L7000.0300, L7000.0700, M600.5000, M7400.3302, M100.0605, M100.7900, M100.6796, M100.637 #### [facility] [address] [place], [address] SALMON <0.10 Normal Class 0 [facility] Comment on above: Performed By: #### L 7000.0750, L7000.0300, L7000.0700, M600.5000, M7400.3302, M100.0605, M100.7900, M100.6796, M100.637 #### [facility] [address] [place], [place], [address] SHRIMP <0.10 Normal Class 0 [facility] Comment on above: Performed By: #### L 7000.0750, L7000.0300, L7000.0700, M600.5000, M7400.3302, M100.0605, M100.7900, M100.6796, M100.637 #### [facility] [address] [place], [address] SOYBEAN <0.10 Normal Class 0 [facility] Comment on above: Performed By: #### L 7000.0750, L7000.0300, L7000.0700, M600.5000, M7400.3302, M100.0605, M100.7900, M100.6796, M100.637 #### [facility] [address] [place], [address] TUNA <0.10 Normal Class 0 [facility] Comment on above: Performed By: #### L 7000.0750, L7000.0300, L7000.0700, M600.5000, M7400.3302, M100.0605, M100.7900, M100.6796, M100.637 #### [facility] [address] [place], [address] WHEAT 0.22 kU/L Abnormal Class 0/I [facility] Comment on above: Performed By: #### L 7000.0750, L7000.0300, L7000.0700, M600.5000, M7400.3302, M100.0605, M100.7900, M100.6796, M100.637 #### [facility] [address] [place], [address] Quantiferon TB-Gold+on 05-14 QFT MITOGEN LUZ > 10.00 Normal . [facility] Comment on above: Order Comment: Test( s) 966596-Ewrxsr, Serum or Plasmawas developed and its performance characteristicsdetermined by [facility]. It has not been cleared or approvedby the Food and Drug Administration.N Performed By: #### L 7000.0750, L7000.0300, L7000.0700, M600.5000, M7400.3302, M100.0605, M100.7900, M100.6796, M100.637 #### [facility] [address] [place], [address] QFT NIL VALUE 0.01 IU/mL Normal . [facility] Comment on above: Order Comment: Test( s) 935143-Ekpeoo, Serum or Plasmawas developed and its performance characteristicsdetermined by [facility]. It has not been cleared or approvedby the Food and Drug Administration.N Performed By: #### L 7000.0750, L7000.0300, L7000.0700, M600.5000, M7400.3302, M100.0605, M100.7900, M100.6796, M100.637 #### [facility] [address] [place], [place], [id number] (318) QFT TB GOLD+ Comment Normal . [facility] Comment on above: Order Comment: Test( s) 991725-Vjjjob, Serum or Plasmawas developed and its performance characteristicsdetermined by [facility]. It has not been cleared or approvedby [...] M600.5000, M7400.3302, M100.0605, M100.7900, M100.6796, M100.637 #### [facility] [address] [place], [place], [id number] QFT TB POS CRIT Negative Normal Negative [facility] Comment on above: Order Comment: Test( s) 537430-Licugo, Serum or Plasmawas developed and its performance characteristicsdetermined by [facility]. It has not been cleared or approvedby [...] M600.5000, M7400.3302, M100.0605, M100.7900, M100.6796, M100.637 #### [facility] [address] [place], [address] QFT TB1+ AG LUZ 0.03 IU/mL Normal . [facility] Comment on above: Order Comment: Test( s) 833197-Hxwrxa, Serum or Plasmawas developed and its performance characteristicsdetermined by [facility]. It has not been cleared or approvedby the Food and Drug Administration.N Performed By: #### L 7000.0750, L7000.0300, L7000.0700, M600.5000, M7400.3302, M100.0605, M100.7900, M100.6796, M100.637 #### [facility] [address] [place], [address] (033) QFT TB2+ AG LUZ 0.02 IU/mL Normal . [facility] Comment on above: Order Comment: Test( s) 079139-Rabwaj, Serum or Plasmawas developed and its performance characteristicsdetermined by [facility]. It has not been cleared or approvedby the Food and Drug Administration.N Performed By: #### L 7000.0750, L7000.0300, L7000.0700, M600.5000, M7400.3302, M100.0605, M100.7900, M100.6796, M100.637 #### [facility] [address] [place], [address] Stool Lactoferrin/WBCon 10-0 WBCST Normal Reference Ran ge = Negative Fecal WBC Lactoferrin A Positive: Fecal WBC Lactoferrin present A Normal [facility] Comment on above: Performed By: #### L 7000.0750, L7000.0300, L7000.0700, M600.5000, M7400.3302, M100.0605, M100.7900, M100.6796, M100.637 #### [facility] [address] [place], [place], [address] Stool Occult Blood iFOBon STOB Positive Normal [facility] Comment on above: Performed By: #### L 7000.0750, L7000.0300, L7000.0700, M600.5000, M7400.3302, M100.0605, M100.7900, M100.6796, M100.637 #### [facility] [address] [place], [address] CRPon 05-11-2024 C-REACTIVE PROT 7.88 mg/L High 0.0-3.0 [facility] Comment on above: Result Comment: C-Re active Protein (CRP) provides useful information for the diagnosis, therapy and monitoring of inflammatory processes and associated diseases. For the evaluation of Relative Risk for Cardiovascular Disease, a High Sensitivity CRP (HSCRP) should be ordered. Performed By: #### L 7000.0750, L7000.0300, L7000.0700, M600.5000, M7400.3302, M100.0605, M100.7900, M100.6796, M100.637 #### [facility] [address] [place], [address] Erythrocyte Sed Rateon 05-11 SED RATE 7 mm/hr Normal 0-20 [facility] Comment on above: Performed By: #### L 7000.0750, L7000.0300, L7000.0700, M600.5000, M7400.3302, M100.0605, M100.7900, M100.6796, M100.637 #### [facility] [address] [place], [address] Ferritinon 05-11-2024 Ferritin [Mass/Vol] 98 ng/mL Normal 26-388 [facility] Comment on above: Performed By: #### L 7000.0750, L7000.0300, L7000.0700, M600.5000, M7400.3302, M100.0605, M100.7900, M100.6796, M100.637 #### [facility] [address] [place], [address] Gastroenterology Visit Repor ton 05-11-2024 Gastroenterology Visit Report [facility] [address] [place] [address] OFFICE VISIT Date of Service: 05/11/24 MR#: [id number] Acct: [id number] Name: EUNICE VARGAS Rep #: [id number] : 1985 Provider: Tom Campbell DO Age/Sex: 38/M Location: [facility] Status: Signed Intake Vital Signs 08/14/23 21:15 Height 5 ft 7 in Intake Visit Reasons: COLONIC INERTIA Allergies No Known Allergies Allergy (Verified 12/04/23 09:44) Medications ???Medication ???Instructions ???Recorded ???Confirmed ???Type NK 08/14/23 05/11/24 History [facility] Medical History (Updated 05/11/24 @ 09:50 by [...] Appearance: average body habitus and well nourished [facility] Head: normal to inspection Ears: hearing [...] workup for (more content not included)... Normal [facility] Ironon 05-11-2024 Iron [Mass/Vol] 109 ug/dL Normal 65-175 [facility] Comment on above: Performed By: #### L 7000.0750, L7000.0300, L7000.0700, M600.5000, M7400.3302, M100.0605, M100.7900, M100.6796, M100.637 #### [facility] [address] [place], [address] Iron Binding Capacity,Totalo n 05-11-2024 TIBC 390 ug/dL Normal 250-450 [facility] Comment on above: Performed By: #### L 7000.0750, L7000.0300, L7000.0700, M600.5000, M7400.3302, M100.0605, M100.7900, M100.6796, M100.637 #### [facility] [address] [place], [address] Retic Panelon 05-11-2024 IM RET FRACTION 8.90 Normal 3.00-15.90 [facility] Comment on above: Performed By: #### L 7000.0750, L7000.0300, L7000.0700, M600.5000, M7400.3302, M100.0605, M100.7900, M100.6796, M100.637 #### [facility] [address] [place], [address] RET-HE 34.8 pg Normal 30-35 [facility] [facility] Comment on above: Performed By: #### L 7000.0750, L7000.0300, L7000.0700, M600.5000, M7400.3302, M100.0605, M100.7900, M100.6796, M100.637 #### [facility] [address] [place], [address] Retic Count 1.95 High 0.5-1.5 [facility] Comment on above: Performed By: #### L 7000.0750, L7000.0300, L7000.0700, M600.5000, M7400.3302, M100.0605, M100.7900, M100.6796, M100.637 #### [facility] [address] [place], [address] Vitamin B12on 05-11-2024 Cobalamin (Vitamin B12) [Mass/Vol] 1049 pg/mL High 211-911 [facility] Comment on above: Performed By: #### L 7000.0750, L7000.0300, L7000.0700, M600.5000, M7400.3302, M100.0605, M100.7900, M100.6796, M100.637 #### [facility] [address] [place], [address] [facility] EUNICE VARGAS ([id number]) 1985 Date Time Provider Department 04/29/24 JESUS RAZA [facility] During your visit today, we recorded the [...] Status:Closed by CAROLINE CHAMBERLAIN on 04/29/24 Normal [facility] XR CHEST 2V FRONTAL/LATon [facility] XR Chest PA and Lateralon IMPRESSION: No acute radiographic abnormality. Drawing Instructor: PSCB Transcribe Date/Time: Jul 17 2023 5:16P Dictated by : EUNICE ANAYA MD This examination was interpreted and the report reviewed and electronically signed by: EUNICE ANAYA MD on Jul 17 2023 5:17PM [facility] DIVISION OF RADIOLOGY * [...] soft tissues: Unremarkable. DIVISION OF RADIOLOGY Provider, [facility] - 07/17/2023 * * *Final [...] Unremarkable. IMPRESSION IMPRESSION: No acute radiographic abnormality. Drawing Instructor: JENIFFER Transcribe Date/Time: Jul 17 2023 5:16P Dictated by : EUNICE ANAYA MD This examination was interpreted and the report reviewed and electronically signed by: EUNICE ANAYA MD on Jul 17 2023 5:17PM [facility] Radiology Study observation (narrative) [facility] XR Chest PA and LateralOrder ed By: Ccf Provider on 07-17-2023 [facility] CNOVon 04-22-2023 CNOV Office Visit (AGOCMR ) EUNICE VARGAS ([id number]) 1985 M Date Time Provider Department 04/22/23 11:00 AM ROLANDO EUGENE AGOLisa During your visit today, we recorded the following information about you: Pulse Blood pressure Weight Height 66/minute 135/92 77.6 kg 1.676 m Rolando Eugene DO 04/22/2023 11:06 AM Signed Rolando Eugene DO [facility] General Orthopedics - Orthopedic Spine Surgeon [address] [place] [address] 0 [place] [address] Phone: [phone] ([phone]) FAX: [phone] SPINE SURGERY OUTPATIENT CONSULT SERVICE DATE: 04/16/2023 [...] him the most. 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 His lumbar x-rays at [...] much today. PREVIOUS CONSERVATIVE TREATMENTS: Prednisone Flexeril rn care transition x2 PREVIOUS SURGERY: SURGERY #1: L4-5 TLIF with PSF on 07/19/[address] 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 Normal [facility] MRI LUMBAR SPINE WO IVCONon 04-21-2023 [facility] CNOVon 03-18-2023 CNOV Office Visit (AGOCMR ) EUNICE VARGAS ([id number]) 1985 M Date Time Provider Department 03/18/23 1:00 PM ROLANDO EUGENE AGOR During your visit today, we recorded the following information about you: Pulse Respiration Blood pressure Weight 77/minute 16/minute 123/70 77.6 kg Height 1.676 m Rolando Eugene DO 03/18/2023 1:43 PM Signed Rolando Eugene DO [facility] General Orthopedics - Orthopedic Spine Surgeon [address] 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 (more content not included)... Normal [facility] XR LUMBAR 2V FLEX/EXTon XR LUMBAR [...] NO CHANGE COMPARED TO THE PREVIOUS EXAM. Drawing Instructor: JENIFFER Transcribe Date/Time: Mar 21 2023 6:19P Dictated by : VICKEY HARVEY MD This examination was interpreted and the report reviewed and electronically signed by: VICKEY HARVEY MD on Mar 21 2023 6:21PM EST [id number] Normal [facility] XR LUMBAR GENERAL 3V AP/LAT/ L5-S1on 03-13-2023 [facility] XR Lumbar spine 3 Viewson IMPRESSION: No acute bony finding. Drawing Instructor: JENIFFER Transcribe Date/Time: Mar 13 2023 12:39P Dictated by : MICHELLE REEVES MD This examination was interpreted and the report reviewed and electronically signed by: MICHELLE REEVES MD on Mar 13 2023 12:40PM [facility] DIVISION OF RADIOLOGY * [...] Vertebral bodies intact. DIVISION OF RADIOLOGY Provider, [facility] * * *Final Report* * [...] intact. IMPRESSION IMPRESSION: No acute bony finding. Drawing Instructor: JENIFFER Transcribe Date/Time: Mar 13 2023 12:39P Dictated by : MICHELLE REEVES MD This examination was interpreted and the report reviewed and electronically signed by: MICHELLE REEVES MD on Mar 13 2023 12:40PM [facility] Radiology Study observation (narrative) [facility] XR Lumbar spine 3 ViewsOrder ed By: Ccf Provider on 03-13-2023 [facility] XR Chest PA and Lateralon IMPRESSION: No acute radiographic abnormality. Drawing Instructor: JENIFFER Transcribe Date/Time: Jan 29 2023 11:03A Dictated by : MISTY BRAMBILA MD This examination was interpreted and the report reviewed and electronically signed by: MISTY BRAMBILA MD on Jan 29 2023 11:08AM [facility] DIVISION OF RADIOLOGY * [...] the right hemidiaphragm. DIVISION OF RADIOLOGY [facility] 01/[facility] * * *Final Report* [...] hemidiaphragm. IMPRESSION IMPRESSION: No acute radiographic abnormality. Drawing Instructor: PSCB Transcribe Date/Time: Jan 29 2023 11:03A Dictated by : MISTY BRAMBILA MD This examination was interpreted and the report reviewed and electronically signed by: MISTY BRAMBILA MD on Jan 29 2023 11:08AM EST [facility] Radiology Study observation (narrative) [facility] XR Chest PA and LateralOrder ed By: Ccf Provider on 01-29-2023 [facility] ANES POSTPROC EVALon 023 ANES POSTPROC EVAL HNO ID: [id number] Author: Finn Jeff MD, PhD Service: Anesthesiology Author Type: Anesthesiologist Type: Anesthesia Postprocedure Evaluation Filed: 01/21/2023 4:08 PM Note Text: POST ANESTHESIA EVALUATION NOTE : 1985 Procedure Summary Date: 01/21/23 Room / Location: [facility] Anesthesia Start: 1526 Anesthesia Stop: 1534 Procedure: [...] January 21, 2023 TIME: 4:07 PM CSN: [id number] Normal [facility] ANES PRE-OPon 01-21-2023 ANES PRE-OP HNO ID: [id number] Author: Finn Jeff MD, PhD Service: Anesthesiology [...] boxes Coloplast Tacho red flat wafer # 09260 - 1 box Coloplast Tacho red drainable pouches # 25335 - 1 box Ryan small barrier rings # 7805 - 1 tube stomahesive paste # 2650 - 1 box Coloplast Elastic barrier strips # 966968 - 1 bottle stomahesive powder # 36858 - 1 box adhesive remover wipes - [...] January 21, 2023 TIME: 3:26 PM CSN: [id number] Normal [facility] HISTORY PHYSICALon HISTORY PHYSICAL HNO ID: [id number] Author: Wanda Benítez APRN.GRANITE POLISHER Service: ? Author Type: Nurse Practitioner Type: [...] boxes Coloplast Tacho red flat wafer # 63305 - 1 box Coloplast Tacho red drainable pouches # 49251 - 1 box Ryan small barrier rings # 7805 - 1 tube stomahesive paste # 2650 - 1 box Coloplast Elastic barrier strips # 317997 - 1 bottle stomahesive powder # 07567 - 1 box adhesive remover wipes - [...] requiring medication, no history of angina, CHF, NC, cardiac surgery or stents. Denies rest pain, gangrene or revascularization/amputatio n for PVD. No hist (more content not included)... 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 Colon AND Rectal Surgery [address] [facility], [address] [place] [address] SUBJECTIVE Eunice Vargas is a 36 year [...] boxes Coloplast Tacho red flat wafer # 40190 - 1 box Coloplast Hardy red drainable pouches # 06350 - 1 box [place] small barrier rings # 7805 - 1 tube stomahesive paste # 2650 - 1 box Coloplast Elastic barrier strips # 075064 - 1 bottle stomahesive powder # 71866 - 1 box adhesive remover wipes - [...] no distensio (more content not included)... Normal [facility] XR Abdomen GE 3 Views AP [...] with oral and IV contrast enhanced CT. Drawing Instructor: [facility] Transcribe Date/Time: Dec 09 2022 11:57A Dictated by : RODERICK HDZ MD This examination was interpreted and the report reviewed and electronically signed by: RODERICK HDZ MD on Dec 09 2022 12:00PM [facility] DIVISION OF RADIOLOGY * [...] lower lumbosacral spine. DIVISION OF RADIOLOGY Provider, [facility] - 12/09/2022 * * *Final Report* * [...] with oral and IV contrast enhanced CT. Drawing Instructor: PSCB Transcribe Date/Time: Dec 09 2022 11:57A Dictated by : RODERICK HDZ MD This examination was interpreted and the report reviewed and electronically signed by: RODERICK HDZ MD on Dec 09 2022 12:00PM EST [facility] XR Abdomen GE 3 Views AP and Oblique and ConeOrdered By: Ccf Provider on 12-09-2022 [facility] XR Abdomen GE 3 Views AP and Oblique and Coneon 12-06-2022 Radiology Study observation (narrative) [facility] Basic metabolic 2000 panelon 12-03-2022 Anion gap [Moles/Vol] 15 mmol/L Normal 9-18 [facility] Comment on above: Order Comment: Speci men Type: BLOOD SPECIMEN [facility] Address: [address] [address] Performed By: #### 2 4321-2 #### [facility] CLIA [id number] 1 [place] [address] [place] Calcium [Mass/Vol] 9.1 mg/dL Normal 8.5-10.2 [facility] Comment on above: Order Comment: Speci men Type: BLOOD SPECIMEN [facility] Address: [address] [address] Performed By: #### 2 4321-2 #### [facility] CLIA [id number] 1 [place] [address] [place] Chloride [Moles/Vol] 101 mmol/L Normal 97-105 [facility] Comment on above: Order Comment: Speci men Type: BLOOD SPECIMEN [facility] Address: [address] [address] Performed By: #### 2 4321-2 #### [facility] CLIA [id number] [address] [place] CO2 [Moles/Vol] 22 mmol/L Normal 22-30 [facility] Comment on above: Order Comment: Speci men Type: BLOOD SPECIMEN [facility] Address: [address] [place] [address] Performed By: #### 2 4321-2 #### [facility] CLIA [id number] [address] Creatinine [Mass/Vol] 0.75 mg/dL Normal 0.73-1.22 [facility] Comment on above: Order Comment: Speci men Type: BLOOD SPECIMEN [facility] Address: [address] [place] [address] Performed By: #### 2 4321-2 #### [facility] CLIA [id number] [address] ESTIMATED GLOMERULAR FILTRATION RATE 120 mL/min/1.73m??? Normal >=60 [facility] Comment on above: Order Comment: Speci men Type: BLOOD SPECIMEN [facility] Address: [address] [place] [address] Result Comment: Jody mated Glomerular Filtration Rate [...] GFR. Performed By: #### 2 4321-2 #### [facility] CLIA [id number] [address] [place] Glucose [Mass/Vol] 89 mg/dL Normal 74-99 [facility] Comment on above: Order Comment: Speci men Type: BLOOD SPECIMEN [facility] Address: [address] [place] [address] Result Comment: The [place] Diabetes Association (ADA) provides guidance for cutoff [...] Standards of Medical Care in Diabetes 2016, [place] Diabetes Association. Diabetes Care. 2016.39(Suppl 1). Performed By: #### 2 4321-2 #### [facility] CLIA [id number] [address] OF [facility] Potassium [Moles/Vol] 3.4 mmol/L Low 3.7-5.1 [facility] Comment on above: Order Comment: Jeff mata Type: BLOOD SPECIMEN [facility] Address: [address] [address] Performed By: #### 2 4321-2 #### [facility] CLIA [id number] [address] Sodium [Moles/Vol] 138 mmol/L Normal 136-144 [facility] Comment on above: Order Comment: Jeff mata Type: BLOOD SPECIMEN [facility] Address: [address] [address] Performed By: #### 2 4321-2 #### [facility] CLIA [id number] [address] Urea nitrogen [Mass/Vol] 9 mg/dL Normal 9-24 [facility] Comment on above: Order Comment: Jeff mata Type: BLOOD SPECIMEN [facility] Address: [address] [address] Performed By: #### 2 4321-2 #### [facility] CLIA [id number] [address] CBC panel Auto (Bld)on 12-03 Erythrocyte distribution width (RBC) [Ratio] 12.6 % Normal 11.5-15.0 [facility] Comment on above: Order Comment: Speci men Type: BLOOD SPECIMEN [facility] Address: [address] [place] [address] Performed By: #### 5 8410-2 #### [facility] CLIA [id number] [address] Hematocrit (Bld) [Volume fraction] 39.2 % Normal 39.0-51.0 [facility] Comment on above: Order Comment: Speci men Type: BLOOD SPECIMEN [facility] Address: [address] [place] [address] Performed By: #### 5 8410-2 #### [facility] CLIA [id number] [address] OF [facility] Hemoglobin (Bld) [Mass/Vol] 13.5 g/dL Normal 13.0-17.0 [facility] Comment on above: Order Comment: Speci men Type: BLOOD SPECIMEN [facility] Address: [address] [place] [address] Performed By: #### 5 8410-2 #### [facility] CLIA [id number] [address] MCH (RBC) [Entitic mass] 29.5 pg Normal 26.0-34.0 [facility] Comment on above: Order Comment: Speci men Type: BLOOD SPECIMEN [facility] Address: [address] [address] Performed By: #### 5 8410-2 #### [facility] CLIA [id number] [address] MCHC (RBC) [Mass/Vol] 34.4 g/dL Normal 30.5-36.0 [facility] Comment on above: Order Comment: Speci men Type: BLOOD SPECIMEN [facility] Address: [address] [place] [address] Performed By: #### 5 8410-2 #### [facility] CLIA [id number] [address] MCV (RBC) [Entitic vol] 85.6 fL Normal 80.0-100.0 [facility] Comment on above: Order Comment: Speci men Type: BLOOD SPECIMEN [facility] Address: [address] [place] [address] Performed By: #### 5 8410-2 #### [facility] CLIA [id number] [address] Nucleated RBC (Bld) [#/Vol] 10*3/uL Normal <0.01 [facility] Comment on above: Order Comment: Speci men Type: BLOOD SPECIMEN [facility] Address: [address] [place] [address] Performed By: #### 5 8410-2 #### [facility] CLIA [id number] [address] Platelet mean volume (Bld) [Entitic vol] 9.1 fL Normal 9.0-12.7 [facility] Comment on above: Order Comment: Speci men Type: BLOOD SPECIMEN [facility] Address: [address] [place] [address] Performed By: #### 5 8410-2 #### [facility] CLIA [id number] [address] Platelets (Bld) [#/Vol] 317 10*3/uL Normal 150-400 [facility] Comment on above: Order Comment: Speci men Type: BLOOD SPECIMEN [facility] Address: [address] [place] [address] Performed By: #### 5 8410-2 #### [facility] CLIA [id number] [address] [place] RBC (Bld) [#/Vol] 4.58 10*6/uL Normal 4.20-6.00 [facility] Comment on above: Order Comment: Speci men Type: BLOOD SPECIMEN [facility] Address: [address] [address] Performed By: #### 5 8410-2 #### [facility] CLIA [id number] [address] WBC (Bld) [#/Vol] 7.17 10*3/uL Normal 3.70-11.00 [facility] Comment on above: Order Comment: Jeff mata Type: BLOOD SPECIMEN [facility] Address: [place] [address] Performed By: #### 5 8410-2 #### [facility] CLIA [id number] [address] CNDSon 12-03-2022 [facility] HNO ID: [id number] Author: Brenda Manzo DO Service: General Surgery [...] medication (see prescription) You should use an dimm-gmu-vwetmok stool softener (Docusate sodium) and/or a fiber [...] call for appointment?: Yes Collin Le MD [phone] [address] [address] PCP Requested Referral Additional Provider to Provider [...] 2022 FOLLOW-UP APPOINTMENTS ALREADY SCHEDULED WITH A [facility] PROVIDER: No future appointments. ALLERGIES Allergen Reactions Adhesive Other: See Comments Large blisters DISCHARGE M (more content not included)... Normal [facility] Basic metabolic 2000 panelon 12-02-2022 Anion gap [Moles/Vol] 13 mmol/L Normal 9-18 [facility] Comment on above: Order Comment: Speci men Type: BLOOD SPECIMEN [facility] Address: [facility] [address] Performed By: #### 2 4321-2 #### [facility] CLIA [id number] [address] [place] [address] [place] Calcium [Mass/Vol] 8.7 mg/dL Normal 8.5-10.2 [facility] Comment on above: Order Comment: Speci men Type: BLOOD SPECIMEN [facility] Address: [address] [place] [address] Performed By: #### 2 4321-2 #### [facility] CLIA [id number] [address] [place] Chloride [Moles/Vol] 100 mmol/L Normal 97-105 [facility] Comment on above: Order Comment: Speci men Type: BLOOD SPECIMEN [facility] Address: [address] [address] Performed By: #### 2 4321-2 #### [facility] CLIA [id number] [address] [place] CO2 [Moles/Vol] 22 mmol/L Normal 22-30 [facility] Comment on above: Order Comment: Speci men Type: BLOOD SPECIMEN [facility] Address: [address] [place] [address] Performed By: #### 2 4321-2 #### [facility] CLIA [id number] [address] [place] Creatinine [Mass/Vol] 0.86 mg/dL Normal 0.73-1.22 [facility] Comment on above: Order Comment: Speci men Type: BLOOD SPECIMEN [facility] Address: [address] [place] [address] Performed By: #### 2 4321-2 #### [facility] CLIA [id number] [address] ESTIMATED GLOMERULAR FILTRATION RATE 115 mL/min/1.73m??? Normal >=60 [facility] Comment on above: Order Comment: Speci men Type: BLOOD SPECIMEN [facility] Address: [address] [place] [address] Result Comment: Jody mated Glomerular Filtration Rate [...] GFR. Performed By: #### 2 4321-2 #### [facility] CLIA [id number] [address] [place] [address] [place] Glucose [Mass/Vol] 76 mg/dL Normal 74-99 [facility] Comment on above: Order Comment: Jeff mata Type: BLOOD SPECIMEN [facility] Address: [address] [address] Result Comment: The [place] Diabetes Association (ADA) provides guidance for cutoff [...] Standards of Medical Care in Diabetes 2016, [place] Diabetes Association. Diabetes Care. 2016.39(Suppl 1). Performed By: #### 2 4321-2 #### [facility] CLIA [id number] [address] [place] [address] [place] Potassium [Moles/Vol] 4.0 mmol/L Normal 3.7-5.1 [facility] Comment on above: Order Comment: Jeff mata Type: BLOOD SPECIMEN [facility] Address: [address] [address] Performed By: #### 2 4321-2 #### [facility] CLIA [id number] [address] [place] [address] [place] Sodium [Moles/Vol] 135 mmol/L Low 136-144 [facility] Comment on above: Order Comment: Jeff mata Type: BLOOD SPECIMEN [facility] Address: [address] [address] Performed By: #### 2 4321-2 #### [facility] CLIA [id number] [address] [facility] Urea nitrogen [Mass/Vol] 17 mg/dL Normal 9-24 [facility] Comment on above: Order Comment: Speci men Type: BLOOD SPECIMEN [facility] Address: [address] [address] Performed By: #### 2 4321-2 #### [facility] CLIA [id number] [address] CBC panel Auto (Bld)on 12-02 Erythrocyte distribution width (RBC) [Ratio] 12.5 % Normal 11.5-15.0 [facility] Comment on above: Order Comment: Speci men Type: BLOOD SPECIMEN [facility] Address: [address] [place] [address] Performed By: #### 5 8410-2 #### [facility] CLIA [id number] [address] Hematocrit (Bld) [Volume fraction] 39.0 % Normal 39.0-51.0 [facility] Comment on above: Order Comment: Speci men Type: BLOOD SPECIMEN [facility] Address: [address] [place] [address] Performed By: #### 5 8410-2 #### [facility] CLIA [id number] [address] [facility] Hemoglobin (Bld) [Mass/Vol] 13.2 g/dL Normal 13.0-17.0 [facility] Comment on above: Order Comment: Speci men Type: BLOOD SPECIMEN [facility] Address: [address] [place] [address] Performed By: #### 5 8410-2 #### [facility] CLIA [id number] [address] MCH (RBC) [Entitic mass] 29.7 pg Normal 26.0-34.0 [facility] Comment on above: Order Comment: Speci men Type: BLOOD SPECIMEN [facility] Address: [address] [address] Performed By: #### 5 8410-2 #### [facility] CLIA [id number] [address] MCHC (RBC) [Mass/Vol] 33.8 g/dL Normal 30.5-36.0 [facility] Comment on above: Order Comment: Speci men Type: BLOOD SPECIMEN [facility] Address: [address] [address] Performed By: #### 5 8410-2 #### [facility] CLIA [id number] [address] MCV (RBC) [Entitic vol] 87.8 fL Normal 80.0-100.0 [facility] Comment on above: Order Comment: Speci men Type: BLOOD SPECIMEN [facility] Address: [address] [address] Performed By: #### 5 8410-2 #### [facility] CLIA [id number] [address] Nucleated RBC (Bld) [#/Vol] 10*3/uL Normal <0.01 [facility] Comment on above: Order Comment: Speci men Type: BLOOD SPECIMEN [facility] Address: [address] [address] Performed By: #### 5 8410-2 #### [facility] CLIA [id number] [address] Platelet mean volume (Bld) [Entitic vol] 9.6 fL Normal 9.0-12.7 [facility] Comment on above: Order Comment: Speci men Type: BLOOD SPECIMEN [facility] Address: [address] [place] [address] Performed By: #### 5 8410-2 #### [facility] CLIA [id number] [address] OF [facility] Platelets (Bld) [#/Vol] 299 10*3/uL Normal 150-400 [facility] Comment on above: Order Comment: Speci men Type: BLOOD SPECIMEN [facility] Address: [address] [address] Performed By: #### 5 8410-2 #### [facility] CLIA [id number] [address] [place] RBC (Bld) [#/Vol] 4.44 10*6/uL Normal 4.20-6.00 [facility] Comment on above: Order Comment: Speci men Type: BLOOD SPECIMEN [facility] Address: [address] [place] [address] Performed By: #### 5 8410-2 #### [facility] CLIA [id number] [address] [place] WBC (Bld) [#/Vol] 5.92 10*3/uL Normal 3.70-11.00 [facility] Comment on above: Order Comment: Speci men Type: BLOOD SPECIMEN [facility] Address: [address] [place] [address] Performed By: #### 5 8410-2 #### [facility] CLIA [id number] [address] OF [facility] Basic metabolic 2000 panelon 12-01-2022 Anion gap [Moles/Vol] 14 mmol/L Normal 9-18 [facility] Comment on above: Order Comment: Speci men Type: BLOOD SPECIMEN [facility] Address: [address] [place] [address] Performed By: #### 5 8410-2 #### [facility] CLIA [id number] [address] Calcium [Mass/Vol] 9.0 mg/dL Normal 8.5-10.2 [facility] Comment on above: Order Comment: Speci men Type: BLOOD SPECIMEN [facility] Address: [address] [address] Performed By: #### 5 8410-2 #### [facility] CLIA [id number] [address] OF [facility] Chloride [Moles/Vol] 96 mmol/L Low 97-105 [facility] Comment on above: Order Comment: Speci men Type: BLOOD SPECIMEN [facility] Address: [address] [place] [address] Performed By: #### 5 8410-2 #### [facility] CLIA [id number] [address] OF [facility] CO2 [Moles/Vol] 22 mmol/L Normal 22-30 [facility] Comment on above: Order Comment: Speci men Type: BLOOD SPECIMEN [facility] Address: [address] [place] [address] Performed By: #### 5 8410-2 #### [facility] CLIA [id number] [address] Creatinine [Mass/Vol] 0.95 mg/dL Normal 0.73-1.22 [facility] Comment on above: Order Comment: Speci men Type: BLOOD SPECIMEN [facility] Address: [address] [place] [address] Performed By: #### 5 8410-2 #### [facility] CLIA [id number] [address] ESTIMATED GLOMERULAR FILTRATION RATE 106 mL/min/1.73m??? Normal >=60 [facility] Comment on above: Order Comment: Speci men Type: BLOOD SPECIMEN [facility] Address: [address] [place] [address] Result Comment: Jody mated Glomerular Filtration Rate [...] GFR. Performed By: #### 5 8410-2 #### [facility] CLIA [id number] 1 [place] [address] [place] Glucose [Mass/Vol] 96 mg/dL Normal 74-99 [facility] Comment on above: Order Comment: Jeff mata Type: BLOOD SPECIMEN [facility] Address: [address] [place] [address] Result Comment: The [place] Diabetes Association (ADA) provides guidance for cutoff [...] Standards of Medical Care in Diabetes 2016, [place] [employer]. Diabetes Care. 2016.39(Suppl 1). Performed By: #### 5 8410-2 #### [facility] CLIA [id number] 1 [place] [address] [place] Potassium [Moles/Vol] 4.3 mmol/L Normal 3.7-5.1 [facility] Comment on above: Order Comment: Jeff mata Type: BLOOD SPECIMEN [facility] Address: [address] [address] Performed By: #### 5 8410-2 #### [facility] CLIA [id number] 1 [place] [address] [place] Sodium [Moles/Vol] 132 mmol/L Low 136-144 [facility] Comment on above: Order Comment: Jeff mata Type: BLOOD SPECIMEN [facility] Address: [address] [place] [address] Performed By: #### 5 8410-2 #### [facility] CLIA [id number] [address] STATES OF [facility] Urea nitrogen [Mass/Vol] 27 mg/dL High 9-24 [facility] Comment on above: Order Comment: Speci men Type: BLOOD SPECIMEN [facility] Address: [address] [place] [address] Performed By: #### 5 8410-2 #### [facility] CLIA [id number] [address] OF [facility] CBC panel Auto (Bld)on 12-01 Erythrocyte distribution width (RBC) [Ratio] 12.7 % Normal 11.5-15.0 [facility] Comment on above: Order Comment: Speci men Type: BLOOD SPECIMEN [facility] Address: [address] [place] [address] Performed By: #### 2 4321-2 #### [facility] CLIA [id number] [address] [place] [address] Hematocrit (Bld) [Volume fraction] 44.2 % Normal 39.0-51.0 [facility] Comment on above: Order Comment: Speci men Type: BLOOD SPECIMEN [facility] Address: [address] [place] [address] Performed By: #### 2 4321-2 #### [facility] CLIA [id number] [address] Hemoglobin (Bld) [Mass/Vol] 15.1 g/dL Normal 13.0-17.0 [facility] Comment on above: Order Comment: Speci men Type: BLOOD SPECIMEN [facility] Address: [address] [place] [address] Performed By: #### 2 4321-2 #### [facility] CLIA [id number] [address] MCH (RBC) [Entitic mass] 29.7 pg Normal 26.0-34.0 [facility] Comment on above: Order Comment: Speci men Type: BLOOD SPECIMEN [facility] Address: [address] [address] Performed By: #### 2 4321-2 #### [facility] CLIA [id number] [address] MCHC (RBC) [Mass/Vol] 34.2 g/dL Normal 30.5-36.0 [facility] Comment on above: Order Comment: Speci men Type: BLOOD SPECIMEN [facility] Address: [address] [address] Performed By: #### 2 1-2 #### [facility] CLIA [id number] [address] MCV (RBC) [Entitic vol] 87.0 fL Normal 80.0-100.0 [facility] Comment on above: Order Comment: Speci men Type: BLOOD SPECIMEN [facility] Address: [address] [address] Performed By: #### 2 1-2 #### [facility] CLIA [id number] [address] Nucleated RBC (Bld) [#/Vol] 10*3/uL Normal <0.01 [facility] Comment on above: Order Comment: Speci men Type: BLOOD SPECIMEN [facility] Address: [address] [address] Performed By: #### 2 4321-2 #### [facility] CLIA [id number] [address] Platelet mean volume (Bld) [Entitic vol] 9.5 fL Normal 9.0-12.7 [facility] Comment on above: Order Comment: Speci men Type: BLOOD SPECIMEN [facility] Address: [address] [address] Performed By: #### 2 4321-2 #### [facility] CLIA [id number] [address] Platelets (Bld) [#/Vol] 289 10*3/uL Normal 150-400 [facility] Comment on above: Order Comment: Speci men Type: BLOOD SPECIMEN [facility] Address: [address] [place] [address] Performed By: #### 2 4321-2 #### [facility] CLIA [id number] [address] RBC (Bld) [#/Vol] 5.08 10*6/uL Normal 4.20-6.00 [facility] Comment on above: Order Comment: Speci men Type: BLOOD SPECIMEN [facility] Address: [address] [place] [address] Performed By: #### 2 4321-2 #### [facility] CLIA [id number] [address] WBC (Bld) [#/Vol] 5.80 10*3/uL Normal 3.70-11.00 [facility] Comment on above: Order Comment: Speci men Type: BLOOD SPECIMEN [facility] Address: [address] [place] [address] Performed By: #### 2 4321-2 #### [facility] CLIA [id number] [address] ALLIED HEALTHon 11-30-2022 ALLIED HEALTH HNO ID: [id number] Author: RT Danielle(Lisa) Service: Radiology Author Type: [...] IV DATA: Not applicable SIGNED BY: RT Danielle(R) November 30, 2022 8:46 AM Normal [facility] Basic metabolic 2000 panelon 11-30-2022 Anion gap [Moles/Vol] 20 mmol/L High 9-18 [facility] Comment on above: Order Comment: Speci men Type: BLOOD SPECIMEN [facility] Address: [address] [place] [address] Performed By: #### 2 4321-2 #### [facility] CLIA [id number] [address] [place] Calcium [Mass/Vol] 10.0 mg/dL Normal 8.5-10.2 [facility] Comment on above: Order Comment: Speci men Type: BLOOD SPECIMEN [facility] Address: [address] [place] [address] Performed By: #### 2 4321-2 #### [facility] CLIA [id number] [address] [place] Chloride [Moles/Vol] 95 mmol/L Low 97-105 [facility] Comment on above: Order Comment: Speci men Type: BLOOD SPECIMEN [facility] Address: [address] [place] [address] Performed By: #### 2 4321-2 #### [facility] CLIA [id number] 1 [place] [address] [place] CO2 [Moles/Vol] 17 mmol/L Low 22-30 [facility] Comment on above: Order Comment: Speci men Type: BLOOD SPECIMEN [facility] Address: [address] [place] [address] Performed By: #### 2 4321-2 #### [facility] CLIA [id number] 1 [place] [address] [place] Creatinine [Mass/Vol] 1.25 mg/dL High 0.73-1.22 [facility] Comment on above: Order Comment: Jeff mata Type: BLOOD SPECIMEN [facility] Address: [address] [place] [address] Performed By: #### 2 4321-2 #### [facility] CLIA [id number] 1 [place] [address] [place] ESTIMATED GLOMERULAR FILTRATION RATE 77 mL/min/1.73m??? Normal >=60 [facility] Comment on above: Order Comment: Jeff mata Type: BLOOD SPECIMEN [facility] Address: [address] [place] [address] Result Comment: Jody mated Glomerular Filtration Rate [...] GFR. Performed By: #### 2 4321-2 #### [facility] CLIA [id number] 1 [place] [address] [place] Glucose [Mass/Vol] 117 mg/dL High 74-99 [facility] Comment on above: Order Comment: Jeff adolfo Type: BLOOD SPECIMEN [facility] Address: [address] [place] [address] Result Comment: The [place] Diabetes Association (ADA) provides guidance for cutoff [...] Standards of Medical Care in Diabetes 2016, [place] Diabetes [employer]. Diabetes Care. 2016.39(Suppl 1). Performed By: #### 2 4321-2 #### [facility] CLIA [id number] [address] [place] Potassium [Moles/Vol] 4.4 mmol/L Normal 3.7-5.1 [facility] Comment on above: Order Comment: Speci men Type: BLOOD SPECIMEN [facility] Address: [address] [place] [address] Performed By: #### 2 4321-2 #### [facility] CLIA [id number] [address] [place] Sodium [Moles/Vol] 132 mmol/L Low 136-144 [facility] Comment on above: Order Comment: Speci men Type: BLOOD SPECIMEN [facility] Address: [address] [place] [address] Performed By: #### 2 4321-2 #### [facility] CLIA [id number] [address] [place] Urea nitrogen [Mass/Vol] 30 mg/dL High 9-24 [facility] Comment on above: Order Comment: Speci men Type: BLOOD SPECIMEN [facility] Address: [address] [place] [address] Performed By: #### 2 4321-2 #### [facility] CLIA [id number] [address] [place] CBC panel Auto (Bld)on 11-30 Erythrocyte distribution width (RBC) [Ratio] 12.7 % Normal 11.5-15.0 [facility] Comment on above: Order Comment: Speci men Type: BLOOD SPECIMEN [facility] Address: [address] [place] [address] Performed By: #### 5 8410-2 #### [facility] CLIA [id number] [address] [place] Hematocrit (Bld) [Volume fraction] 47.8 % Normal 39.0-51.0 [facility] Comment on above: Order Comment: Speci men Type: BLOOD SPECIMEN [facility] Address: [address] [address] Performed By: #### 5 8410-2 #### [facility] CLIA [id number] [address] Hemoglobin (Bld) [Mass/Vol] 16.5 g/dL Normal 13.0-17.0 [facility] Comment on above: Order Comment: Speci men Type: BLOOD SPECIMEN [facility] Address: [address] [address] Performed By: #### 5 8410-2 #### [facility] CLIA [id number] [address] MCH (RBC) [Entitic mass] 29.8 pg Normal 26.0-34.0 [facility] Comment on above: Order Comment: Speci men Type: BLOOD SPECIMEN [facility] Address: [address] [address] Performed By: #### 5 8410-2 #### [facility] CLIA [id number] [address] MCHC (RBC) [Mass/Vol] 34.5 g/dL Normal 30.5-36.0 [facility] Comment on above: Order Comment: Speci men Type: BLOOD SPECIMEN [facility] Address: [address] [address] Performed By: #### 5 8410-2 #### [facility] CLIA [id number] [address] MCV (RBC) [Entitic vol] 86.3 fL Normal 80.0-100.0 [facility] Comment on above: Order Comment: Speci men Type: BLOOD SPECIMEN [facility] Address: [address] [place] [address] Performed By: #### 5 8410-2 #### [facility] CLIA [id number] [address] Nucleated RBC (Bld) [#/Vol] 10*3/uL Normal <0.01 [facility] Comment on above: Order Comment: Speci men Type: BLOOD SPECIMEN [facility] Address: [address] [address] Performed By: #### 5 8410-2 #### [facility] CLIA [id number] [address] [place] Platelet mean volume (Bld) [Entitic vol] 9.9 fL Normal 9.0-12.7 [facility] Comment on above: Order Comment: Speci men Type: BLOOD SPECIMEN [facility] Address: [address] [address] Performed By: #### 5 8410-2 #### [facility] CLIA [id number] [address] [place] Platelets (Bld) [#/Vol] 380 10*3/uL Normal 150-400 [facility] Comment on above: Order Comment: Speci men Type: BLOOD SPECIMEN [facility] Address: [address] [address] Performed By: #### 5 8410-2 #### [facility] CLIA [id number] [address] [place] RBC (Bld) [#/Vol] 5.54 10*6/uL Normal 4.20-6.00 [facility] Comment on above: Order Comment: Speci men Type: BLOOD SPECIMEN [facility] Address: [address] [address] Performed By: #### 5 8410-2 #### [facility] CLIA [id number] [address] [place] WBC (Bld) [#/Vol] 7.73 10*3/uL Normal 3.70-11.00 [facility] Comment on above: Order Comment: Speci men Type: BLOOD SPECIMEN [facility] Address: [address] [address] Performed By: #### 5 8410-2 #### [facility] CLIA [id number] [address] [place] NURSING PROGon 11-30-2022 NURSING PROG HNO ID: [id number] Author: Mariposa Nina RN Service: Nursing Author Type: Registered Nurse Type: Nursing Progress Note Filed: 11/30/2022 2:43 AM Note Text: No complaint of nausea at this time, per pt sensation of bloating has somewhat improved. Medicated with tramadol for discomfort, RN will continue to monitor. Normal [facility] XR ABDOMEN 1V SUPINEon 11-30 XR [...] of exclusion. Consider further assessment with CT. Drawing Instructor: PSCB Transcribe Date/Time: Nov 30 2022 9:05A Dictated by : YOGESH BONILLA MD This examination was interpreted and the report reviewed and electronically signed by: YOGESH BONILLA MD on Nov 30 2022 9:07AM EST [id number] Normal [facility] Basic metabolic 2000 panelon 11-29-2022 Anion gap [Moles/Vol] 13 mmol/L Normal 9-18 [facility] Comment on above: Order Comment: Speci men Type: BLOOD SPECIMEN [facility] Address: [address] [place] [id number] Performed By: #### 5 8410-2 #### [facility] CLIA [id number] [address] [place] Calcium [Mass/Vol] 9.7 mg/dL Normal 8.5-10.2 [facility] Comment on above: Order Comment: Speci men Type: BLOOD SPECIMEN [facility] Address: [address] [place] [address] Performed By: #### 5 8410-2 #### [facility] CLIA [id number] [address] [place] Chloride [Moles/Vol] 97 mmol/L Normal 97-105 [facility] Comment on above: Order Comment: Speci men Type: BLOOD SPECIMEN [facility] Address: [address] [place] [address] Performed By: #### 5 8410-2 #### [facility] CLIA [id number] [address] STATES OF [facility] CO2 [Moles/Vol] 25 mmol/L Normal 22-30 [facility] Comment on above: Order Comment: Speci men Type: BLOOD SPECIMEN [facility] Address: [address] [place] [address] Performed By: #### 5 8410-2 #### [facility] CLIA [id number] [address] [place] Creatinine [Mass/Vol] 0.94 mg/dL Normal 0.73-1.22 [facility] Comment on above: Order Comment: Speci men Type: BLOOD SPECIMEN [facility] Address: [address] [place] [address] Performed By: #### 5 8410-2 #### [facility] CLIA [id number] [address] ESTIMATED GLOMERULAR FILTRATION RATE 108 mL/min/1.73m??? Normal >=60 [facility] Comment on above: Order Comment: Speci men Type: BLOOD SPECIMEN [facility] Address: [address] [place], [place] [id number] Result Comment: Jody mated Glomerular Filtration Rate [...] GFR. Performed By: #### 5 8410-2 #### [facility] CLIA [id number] 1 [place] [address] [place] Glucose [Mass/Vol] 113 mg/dL High 74-99 [facility] Comment on above: Order Comment: Jeff mata Type: BLOOD SPECIMEN [facility] Address: [address] [place] [address] Result Comment: The [place] Diabetes Association (ADA) provides guidance for cutoff [...] Standards of Medical Care in Diabetes 2016, [place] [employer]. Diabetes Care. 2016.39(Suppl 1). Performed By: #### 5 8410-2 #### [facility] CLIA [id number] [address] [place] [address] [place] Potassium [Moles/Vol] 3.9 mmol/L Normal 3.7-5.1 [facility] Comment on above: Order Comment: Jeff mata Type: BLOOD SPECIMEN [facility] Address: [address] [address] Performed By: #### 5 8410-2 #### [facility] CLIA [id number] 1 [place] [address] [place] Sodium [Moles/Vol] 135 mmol/L Low 136-144 [facility] Comment on above: Order Comment: Speci men Type: BLOOD SPECIMEN [facility] Address: [address] [address] Performed By: #### 5 8410-2 #### [facility] CLIA [id number] [address] [facility] Urea nitrogen [Mass/Vol] 13 mg/dL Normal 9-24 [facility] Comment on above: Order Comment: Speci men Type: BLOOD SPECIMEN [facility] Address: [address] [address] Performed By: #### 5 8410-2 #### [facility] CLIA [id number] [address] OF [facility] CBC panel Auto (Bld)on 11-29 Erythrocyte distribution width (RBC) [Ratio] 13.2 % Normal 11.5-15.0 [facility] Comment on above: Order Comment: Speci men Type: BLOOD SPECIMEN [facility] Address: [address] [address] Performed By: #### 5 8410-2 #### [facility] CLIA [id number] [address] OF [facility] Hematocrit (Bld) [Volume fraction] 46.7 % Normal 39.0-51.0 [facility] Comment on above: Order Comment: Speci men Type: BLOOD SPECIMEN [facility] Address: [address] [address] Performed By: #### 5 8410-2 #### [facility] CLIA [id number] [address] [place] Hemoglobin (Bld) [Mass/Vol] 15.8 g/dL Normal 13.0-17.0 [facility] Comment on above: Order Comment: Speci men Type: BLOOD SPECIMEN [facility] Address: [address] [address] Performed By: #### 5 8410-2 #### [facility] CLIA [id number] [address] MCH (RBC) [Entitic mass] 29.4 pg Normal 26.0-34.0 [facility] Comment on above: Order Comment: Speci men Type: BLOOD SPECIMEN [facility] Address: [address] [place] [address] Performed By: #### 5 8410-2 #### [facility] CLIA [id number] [address] MCHC (RBC) [Mass/Vol] 33.8 g/dL Normal 30.5-36.0 [facility] Comment on above: Order Comment: Speci men Type: BLOOD SPECIMEN [facility] Address: [address] [place] [address] Performed By: #### 5 8410-2 #### [facility] CLIA [id number] [address] MCV (RBC) [Entitic vol] 86.8 fL Normal 80.0-100.0 [facility] Comment on above: Order Comment: Speci men Type: BLOOD SPECIMEN [facility] Address: [address] [place] [address] Performed By: #### 5 8410-2 #### [facility] CLIA [id number] [address] Nucleated RBC (Bld) [#/Vol] 10*3/uL Normal <0.01 [facility] Comment on above: Order Comment: Speci men Type: BLOOD SPECIMEN [facility] Address: [address] [place] [address] Performed By: #### 5 8410-2 #### [facility] CLIA [id number] [address] Platelet mean volume (Bld) [Entitic vol] 9.4 fL Normal 9.0-12.7 [facility] Comment on above: Order Comment: Speci men Type: BLOOD SPECIMEN [facility] Address: [address] [address] Performed By: #### 5 8410-2 #### [facility] CLIA [id number] [address] Platelets (Bld) [#/Vol] 278 10*3/uL Normal 150-400 [facility] Comment on above: Order Comment: Speci men Type: BLOOD SPECIMEN [facility] Address: [address] [address] Performed By: #### 5 8410-2 #### [facility] CLIA [id number] [address] RBC (Bld) [#/Vol] 5.38 10*6/uL Normal 4.20-6.00 [facility] Comment on above: Order Comment: Speci men Type: BLOOD SPECIMEN [facility] Address: [address] [address] Performed By: #### 5 8410-2 #### [facility] CLIA [id number] [address] WBC (Bld) [#/Vol] 7.87 10*3/uL Normal 3.70-11.00 [facility] Comment on above: Order Comment: Speci men Type: BLOOD SPECIMEN [facility] Address: [address] [place] [address] Performed By: #### 5 8410-2 #### [facility] CLIA [id number] [address] NURSING PROGon 11-29-2022 NURSING PROG HNO ID: [id number] Author: Asif Dacosta RN Service: Nursing Author [...] the NG. Will continue to monitor. Normal [facility] Basic metabolic 2000 panelon 11-28-2022 Anion gap [Moles/Vol] 15 mmol/L Normal 9-18 [facility] Comment on above: Order Comment: Speci men Type: BLOOD SPECIMEN [facility] Address: [address] [place] [address] Performed By: #### 2 4321-2 #### [facility] CLIA [id number] [address] [place] Calcium [Mass/Vol] 9.7 mg/dL Normal 8.5-10.2 [facility] Comment on above: Order Comment: Speci men Type: BLOOD SPECIMEN [facility] Address: [address] [place] [address] Performed By: #### 2 4321-2 #### [facility] CLIA [id number] [address] [place] Chloride [Moles/Vol] 99 mmol/L Normal 97-105 [facility] Comment on above: Order Comment: Speci men Type: BLOOD SPECIMEN [facility] Address: [address] [place] [address] Performed By: #### 2 4321-2 #### [facility] CLIA [id number] [address] [place] CO2 [Moles/Vol] 22 mmol/L Normal 22-30 [facility] Comment on above: Order Comment: Speci men Type: BLOOD SPECIMEN [facility] Address: [address] [place] [address] Performed By: #### 2 4321-2 #### [facility] CLIA [id number] 1 [place] [address] [place] Creatinine [Mass/Vol] 0.82 mg/dL Normal 0.73-1.22 [facility] Comment on above: Order Comment: Speci men Type: BLOOD SPECIMEN [facility] Address: [address] [place] [address] Performed By: #### 2 4321-2 #### [facility] CLIA [id number] [address] [place] ESTIMATED GLOMERULAR FILTRATION RATE 117 mL/min/1.73m??? Normal >=60 [facility] Comment on above: Order Comment: Jeff mata Type: BLOOD SPECIMEN [facility] Address: [address] [place] [address] Result Comment: Jody mated Glomerular Filtration Rate [...] GFR. Performed By: #### 2 4321-2 #### [facility] CLIA [id number] 1 [place] [address] [place] Glucose [Mass/Vol] 117 mg/dL High 74-99 [facility] Comment on above: Order Comment: Specdavid mata Type: BLOOD SPECIMEN [facility] Address: [address] [place] [address] Result Comment: The [place] Diabetes Association (ADA) provides guidance for cutoff [...] Standards of Medical Care in Diabetes 2016, [place] [employer]. Diabetes Care. 2016.39(Suppl 1). Performed By: #### 2 4321-2 #### [facility] CLIA [id number] 1 [place] [address] [place] Potassium [Moles/Vol] 3.6 mmol/L Low 3.7-5.1 [facility] Comment on above: Order Comment: Speci men Type: BLOOD SPECIMEN [facility] Address: [address] [place] [address] Performed By: #### 2 4321-2 #### [facility] CLIA [id number] [address] Sodium [Moles/Vol] 136 mmol/L Normal 136-144 [facility] Comment on above: Order Comment: Speci men Type: BLOOD SPECIMEN [facility] Address: [address] [place] [address] Performed By: #### 2 4321-2 #### [facility] CLIA [id number] [address] Urea nitrogen [Mass/Vol] 8 mg/dL Low 9-24 [facility] Comment on above: Order Comment: Speci men Type: BLOOD SPECIMEN [facility] Address: [address] [place] [address] Performed By: #### 2 4321-2 #### [facility] CLIA [id number] [address] OF [facility] CBC panel Auto (Bld)on 11-28 Erythrocyte distribution width (RBC) [Ratio] 13.1 % Normal 11.5-15.0 [facility] Comment on above: Order Comment: Speci men Type: BLOOD SPECIMEN [facility] Address: [address] [place] [address] Performed By: #### 2 4321-2 #### [facility] CLIA [id number] [address] Hematocrit (Bld) [Volume fraction] 46.3 % Normal 39.0-51.0 [facility] Comment on above: Order Comment: Speci men Type: BLOOD SPECIMEN [facility] Address: [address] [place] [address] Performed By: #### 2 4321-2 #### [facility] CLIA [id number] [address] Hemoglobin (Bld) [Mass/Vol] 15.7 g/dL Normal 13.0-17.0 [facility] Comment on above: Order Comment: Speci men Type: BLOOD SPECIMEN [facility] Address: [address] [place] [address] Performed By: #### 2 4321-2 #### [facility] CLIA [id number] [address] MCH (RBC) [Entitic mass] 29.5 pg Normal 26.0-34.0 [facility] Comment on above: Order Comment: Speci men Type: BLOOD SPECIMEN [facility] Address: [address] [place] [address] Performed By: #### 2 4321-2 #### [facility] CLIA [id number] [address] MCHC (RBC) [Mass/Vol] 33.9 g/dL Normal 30.5-36.0 [facility] Comment on above: Order Comment: Speci men Type: BLOOD SPECIMEN [facility] Address: [address] [place] [address] Performed By: #### 2 4321-2 #### [facility] CLIA [id number] [address] MCV (RBC) [Entitic vol] 87.0 fL Normal 80.0-100.0 [facility] Comment on above: Order Comment: Speci men Type: BLOOD SPECIMEN [facility] Address: [address] [place] [address] Performed By: #### 2 4321-2 #### [facility] CLIA [id number] [address] Nucleated RBC (Bld) [#/Vol] 10*3/uL Normal <0.01 [facility] Comment on above: Order Comment: Speci men Type: BLOOD SPECIMEN [facility] Address: [address] [address] Performed By: #### 2 4321-2 #### [facility] CLIA [id number] [address] [place] [facility] Platelet mean volume (Bld) [Entitic vol] 9.3 fL Normal 9.0-12.7 [facility] Comment on above: Order Comment: Speci men Type: BLOOD SPECIMEN [facility] Address: [address] [place] [address] Performed By: #### 2 4321-2 #### [facility] CLIA [id number] [address] [place] Platelets (Bld) [#/Vol] 285 10*3/uL Normal 150-400 [facility] Comment on above: Order Comment: Speci men Type: BLOOD SPECIMEN [facility] Address: [address] [place] [address] Performed By: #### 2 4321-2 #### [facility] CLIA [id number] [address] [place] RBC (Bld) [#/Vol] 5.32 10*6/uL Normal 4.20-6.00 [facility] Comment on above: Order Comment: Speci men Type: BLOOD SPECIMEN [facility] Address: [address] [place] [address] Performed By: #### 2 4321-2 #### [facility] CLIA [id number] [address] [place] WBC (Bld) [#/Vol] 13.28 10*3/uL High 3.70-11.00 [facility] Comment on above: Order Comment: Speci men Type: BLOOD SPECIMEN [facility] Address: [address] [place] [address] Performed By: #### 2 4321-2 #### [facility] CLIA [id number] [address] [place] Basic metabolic 2000 panelon 11-27-2022 Anion gap [Moles/Vol] 10 mmol/L Normal 9-18 [facility] Comment on above: Order Comment: Speci men Type: BLOOD SPECIMEN [facility] Address: [address] [place] [address] Performed By: #### 5 8410-2 #### [facility] CLIA [id number] 1 [place] [address] [place] Calcium [Mass/Vol] 8.2 mg/dL Low 8.5-10.2 [facility] Comment on above: Order Comment: Speci men Type: BLOOD SPECIMEN [facility] Address: [address] [place] [address] Performed By: #### 5 8410-2 #### [facility] CLIA [id number] [address] [place] Chloride [Moles/Vol] 106 mmol/L High 97-105 [facility] Comment on above: Order Comment: Speci men Type: BLOOD SPECIMEN [facility] Address: [address] [place] [address] Performed By: #### 5 8410-2 #### [facility] CLIA [id number] [address] [place] CO2 [Moles/Vol] 21 mmol/L Low 22-30 [facility] Comment on above: Order Comment: Speci men Type: BLOOD SPECIMEN [facility] Address: [address] [place] [address] Performed By: #### 5 8410-2 #### [facility] CLIA [id number] [address] [place] Creatinine [Mass/Vol] 0.85 mg/dL Normal 0.73-1.22 [facility] Comment on above: Order Comment: Speci men Type: BLOOD SPECIMEN [facility] Address: [address] [place] [address] Performed By: #### 5 8410-2 #### [facility] CLIA [id number] 1 [place] [address] [place] ESTIMATED GLOMERULAR FILTRATION RATE 115 mL/min/1.73m??? Normal >=60 [facility] Comment on above: Order Comment: Jeff mata Type: BLOOD SPECIMEN [facility] Address: [address] [place] [address] Result Comment: Jody mated Glomerular Filtration Rate [...] GFR. Performed By: #### 5 8410-2 #### [facility] CLIA [id number] [address] [place] [address] [place] Glucose [Mass/Vol] 87 mg/dL Normal 74-99 [facility] Comment on above: Order Comment: Jeff mata Type: BLOOD SPECIMEN [facility] Address: [address] [place] [address] Result Comment: The [place] Diabetes Association (ADA) provides guidance for cutoff [...] Standards of Medical Care in Diabetes 2016, [place] [employer]. Diabetes Care. 2016.39(Suppl 1). Performed By: #### 5 8410-2 #### [facility] CLIA [id number] 1 [place] [address] [place] Potassium [Moles/Vol] 4.0 mmol/L Normal 3.7-5.1 [facility] Comment on above: Order Comment: Speci men Type: BLOOD SPECIMEN [facility] Address: [address] [address] Performed By: #### 5 8410-2 #### [facility] CLIA [id number] [address] Sodium [Moles/Vol] 137 mmol/L Normal 136-144 [facility] Comment on above: Order Comment: Speci men Type: BLOOD SPECIMEN [facility] Address: [address] [place] [address] Performed By: #### 5 8410-2 #### [facility] CLIA [id number] [address] Urea nitrogen [Mass/Vol] 8 mg/dL Low 9-24 [facility] Comment on above: Order Comment: Speci men Type: BLOOD SPECIMEN [facility] Address: [address] [place] [address] Performed By: #### 5 8410-2 #### [facility] CLIA [id number] [address] CBC panel Auto (Bld)on 11-27 Erythrocyte distribution width (RBC) [Ratio] 13.1 % Normal 11.5-15.0 [facility] Comment on above: Order Comment: Speci men Type: BLOOD SPECIMEN [facility] Address: [address] [place] [address] Performed By: #### 2 4321-2 #### [facility] CLIA [id number] [address] Hematocrit (Bld) [Volume fraction] 38.7 % Low 39.0-51.0 [facility] Comment on above: Order Comment: Speci men Type: BLOOD SPECIMEN [facility] Address: [address] [place] [address] Performed By: #### 2 4321-2 #### [facility] CLIA [id number] [address] [place] [address] [place] Hemoglobin (Bld) [Mass/Vol] 13.1 g/dL Normal 13.0-17.0 [facility] Comment on above: Order Comment: Speci men Type: BLOOD SPECIMEN [facility] Address: [address] [address] Performed By: #### 2 4321-2 #### [facility] CLIA [id number] [address] MCH (RBC) [Entitic mass] 30.1 pg Normal 26.0-34.0 [facility] Comment on above: Order Comment: Speci men Type: BLOOD SPECIMEN [facility] Address: [address] [address] Performed By: #### 2 1-2 #### [facility] CLIA [id number] [address] OF [facility] MCHC (RBC) [Mass/Vol] 33.9 g/dL Normal 30.5-36.0 [facility] Comment on above: Order Comment: Speci men Type: BLOOD SPECIMEN [facility] Address: [address] [place] [address] Performed By: #### 2 1-2 #### [facility] CLIA [id number] [address] MCV (RBC) [Entitic vol] 89.0 fL Normal 80.0-100.0 [facility] Comment on above: Order Comment: Speci men Type: BLOOD SPECIMEN [facility] Address: [address] [address] Performed By: #### 2 1-2 #### [facility] CLIA [id number] [address] Nucleated RBC (Bld) [#/Vol] 10*3/uL Normal <0.01 [facility] Comment on above: Order Comment: Speci men Type: BLOOD SPECIMEN [facility] Address: [address] [place] [address] Performed By: #### 2 4321-2 #### [facility] CLIA [id number] [address] [place] Platelet mean volume (Bld) [Entitic vol] 9.6 fL Normal 9.0-12.7 [facility] Comment on above: Order Comment: Speci men Type: BLOOD SPECIMEN [facility] Address: [address] [place] [address] Performed By: #### 2 4321-2 #### [facility] CLIA [id number] [address] [place] Platelets (Bld) [#/Vol] 198 10*3/uL Normal 150-400 [facility] Comment on above: Order Comment: Speci men Type: BLOOD SPECIMEN [facility] Address: [address] [place] [address] Performed By: #### 2 4321-2 #### [facility] CLIA [id number] [address] RBC (Bld) [#/Vol] 4.35 10*6/uL Normal 4.20-6.00 [facility] Comment on above: Order Comment: Speci men Type: BLOOD SPECIMEN [facility] Address: [address] [place] [address] Performed By: #### 2 1-2 #### [facility] CLIA [id number] [address] [place] WBC (Bld) [#/Vol] 8.14 10*3/uL Normal 3.70-11.00 [facility] Comment on above: Order Comment: Speci men Type: BLOOD SPECIMEN [facility] Address: [address] [place] [address] Performed By: #### 2 4321-2 #### [facility] CLIA [id number] [address] ANES POSTPROC EVALon 11-26-2 023 ANES POSTPROC EVAL HNO ID: [id number] Author: Collin Capone DO Service: Anesthesiology Author Type: Physician Type: Anesthesia Postprocedure Evaluation Filed: 11/26/2022 11:22 AM Note Text: POST ANESTHESIA EVALUATION NOTE : 1985 Procedure Summary Date: 11/26/22 Room / Location: [place] Anesthesia Start: 729 Anesthesia Stop: 925 [...] November 26, 2022 TIME: 11:22 AM CSN: [id number] [facility] ANES PRE-OPon 11-26-2022 ANES PRE-OP HNO ID: [id number] Author: Collin Capone DO Service: Anesthesiology Author Type: Physician Type: Anesthesia Preprocedure Evaluation Filed: 11/26/2022 7:19 AM Note Text: ANESTHESIOLOGY DAY OF SURGERY NOTE : 1985 Procedure Information Date/Time: 11/26/22729 Procedure: CLOSURE ILEOSTOMY (Pending) Location: [place] Surgeons: Collin Le MD Estimated body [...] drainable pouch OR - 2 boxes Coloplast Hardy red flat wafer # 16484 - 1 box Coloplast Hardy red drainable pouches # 53385 - 1 box Ryan small barrier rings # 7805 - 1 tube stomahesive paste # 2650 - 1 box Coloplast Elastic barrier strips # 803052 - 1 bottle stomahesive powder # 78886 - 1 box adhesive remover wipes - [...] November 26, 2022 TIME: 7:18 AM CSN: [id number] [facility] HISTORY PHYSICALon HISTORY PHYSICAL HNO ID: [id number] Author: Collin Le MD Service: Colorectal Author [...] Vargas DATE: 11/26/22 TIME: 7:22 AM PAGER: [phone] [facility] OPERATIVE NOon 11-26-2022 OPERATIVE NO HNO ID: [id number] Author: Collin Le MD Service: Colorectal Author Type: Physician Type: Operative Report Filed: 11/26/2022 9:31 AM Note Text: OPERATIVE REPORT Log ID: [id number] Surgery Date: 11/26/2022 Incision/Procedure Start Time: 7:59 AM Incision Close/Procedure End Time: 9:14 AM Surgeon(s) and Card Dealer(s): Surgeon(s) and Role: * Collin Le MD [...] Le MD Departments of General Surgery Pager: [phone] November 26, 2022 Please Note: This office note has been created using [employer], a speech recognition software program, and may contain errors including punctuation, grammar, spelling, gender, and inappropriate words or phrases that pertain to the sytem. Normal [facility] SURGICAL PATHOLOGYon 023 CASE REPORT Normal [facility] Comment on above: Order Comment: Speci men Type: TISSUE SPECIMENOrdering Facility: [facility] Address: [address] [place] [address] [place] [address] Result Comment: Surg ica Pathology Report Case: [id number] Authorizing Provider: Collin Le MD Collected: 11/26/2022 08:15 AM Ordering Location: [facility] Received: 11/26/2022 12:13 PM Pathologist: Tre Moore MD Specimen: ILEOSTOMY Performed By: #### S ####[facility] [id number] [address] CLINICAL HISTORY Normal [facility] Comment on above: Order Comment: Speci men Type: TISSUE SPECIMENOrdering Facility: [facility] Address: [address] [place] [address] Result Comment: Pre- op diagnosis: Colonic inertia [K59.9] Performed By: #### S ####[facility] [id number] [address] FINAL DIAGNOSIS Normal [facility] Comment on above: Order Comment: Speci men Type: TISSUE SPECIMENOrdering Facility: [facility] Address: [address] [place] [address] Result Comment: A. I leostomy, closure: - No pathologic abnormalities. Performed By: #### S ####[facility] [id number] [address] FINAL PERFORMING LAB Normal [facility] Comment on above: Order Comment: Speci men Type: TISSUE SPECIMENOrdering Facility: [facility] Address: [address] [place] [address] Result Comment: Diag nostic interpretation performed at [facility], [address] [place] [address] CLIA# [id number] Publishing Agent: Tre Moore M.D. Performed By: #### S ####[facility] [id number] [address] GROSS DESCRIPTION A. ILEOSTOMY Normal [facility] Comment on above: Order Comment: Speci men Type: TISSUE SPECIMENOrdering Facility: [facility] Address: [address] [place] [address] Result Comment: Rece ived in formalin labeled ileostomy is an open ring of mucosa covered soft tissue and attached potts skin approximating to 2 cm in diameter and 1 cm in height. Wad Blanking Press Adjuster sections are submitted in A1. Gross examination performed at [facility], [address] [place] [address] CLIA#[id number] OLS November 26, 2022 3:33 PM Performed By: #### S ####[facility]ORYCLIA [id number] [place] [address] [place] Basic metabolic 2000 panelon 11-21-2022 Anion gap [Moles/Vol] 9 mmol/L Normal 9-18 [facility] Comment on above: Order Comment: Speci men Type: BLOOD SPECIMEN [facility] Address: [address] [address] Performed By: #### 2 4321-2 #### [facility] CLIA [id number] [address] [place] [address] [place] Calcium [Mass/Vol] 8.9 mg/dL Normal 8.5-10.2 [facility] Comment on above: Order Comment: Speci men Type: BLOOD SPECIMEN [facility] Address: [address] [address] Performed By: #### 2 1-2 #### [facility] CLIA [id number] [address] [place] Chloride [Moles/Vol] 106 mmol/L High 97-105 [facility] Comment on above: Order Comment: Speci men Type: BLOOD SPECIMEN [facility] Address: [address] [address] Performed By: #### 2 4321-2 #### [facility] CLIA [id number] [address] [place] [address] [place] CO2 [Moles/Vol] 25 mmol/L Normal 22-30 [facility] Comment on above: Order Comment: Speci men Type: BLOOD SPECIMEN [facility] Address: [address] [address] Performed By: #### 2 4321-2 #### [facility] CLIA [id number] [address] STATES OF [facility] Creatinine [Mass/Vol] 0.84 mg/dL Normal 0.73-1.22 [facility] Comment on above: Order Comment: Jeff mata Type: BLOOD SPECIMEN [facility] Address: [address] [place] [address] Performed By: #### 2 4321-2 #### [facility] CLIA [id number] [address] ESTIMATED GLOMERULAR FILTRATION RATE 116 mL/min/1.73m??? Normal >=60 [facility] Comment on above: Order Comment: Jeff mata Type: BLOOD SPECIMEN [facility] Address: [address] [place] [address] Result Comment: Jody mated Glomerular Filtration Rate [...] GFR. Performed By: #### 2 4321-2 #### [facility] CLIA [id number] [address] Glucose [Mass/Vol] 85 mg/dL Normal 74-99 [facility] Comment on above: Order Comment: Jeff mata Type: BLOOD SPECIMEN [facility] Address: [address] [place] [address] Result Comment: The [place] Diabetes Association (ADA) provides guidance for cutoff [...] Standards of Medical Care in Diabetes 2016, [place] Diabetes Association. Diabetes Care. 2016.39(Suppl 1). Performed By: #### 2 4321-2 #### [facility] CLIA [id number] [address] STATES OF [facility] Potassium [Moles/Vol] 4.3 mmol/L Normal 3.7-5.1 [facility] Comment on above: Order Comment: Speci men Type: BLOOD SPECIMEN [facility] Address: [address] [address] Performed By: #### 2 4321-2 #### [facility] CLIA [id number] [address] [place] [facility] Sodium [Moles/Vol] 140 mmol/L Normal 136-144 [facility] Comment on above: Order Comment: Speci men Type: BLOOD SPECIMEN [facility] Address: [address] [address] Performed By: #### 2 4321-2 #### [facility] CLIA [id number] [address] [place] OF [facility] Urea nitrogen [Mass/Vol] 11 mg/dL Normal 9-24 [facility] Comment on above: Order Comment: Speci men Type: BLOOD SPECIMEN [facility] Address: [address] [place] [address] Performed By: #### 2 4321-2 #### [facility] CLIA [id number] [address] [place] Anion gap [Moles/Vol] 9 mmol/L 9 - 18 mmol/L [facility] Calcium [Mass/Vol] 8.9 mg/dL 8.5 - 10. 2 mg/dL [facility] Chloride [Moles/Vol] 106 mmol/L High 97 - 10 5 mmol/L [facility] CO2 [Moles/Vol] 25 mmol/L 22 - 30 mmol/L [facility] Creatinine [Mass/Vol] 0.84 mg/dL 0.73 - 1.22 mg/dL [facility] Estimated Glomerular Filtration Rate 116 mL/min/1.73m >=60 mL/min/1.73 m [facility] Glucose [Mass/Vol] 85 mg/dL 74 - 99 mg/dL [facility] Potassium [Moles/Vol] 4.3 mmol/L 3.7 - 5.1 mmol/L [facility] Sodium [Moles/Vol] 140 mmol/L 136 - 144 mmol/L [facility] Urea nitrogen [Mass/Vol] 11 mg/dL 9 - 24 mg/dL [facility] CBC panel Auto (Bld)on 11-21 Erythrocyte distribution width (RBC) [Ratio] 13.2 % Normal 11.5-15.0 [facility] Comment on above: Order Comment: Speci men Type: BLOOD SPECIMEN [facility] Address: [address] [place] [address] Performed By: #### 5 8410-2 #### [facility] CLIA [id number] [address] Hematocrit (Bld) [Volume fraction] 42.9 % Normal 39.0-51.0 [facility] Comment on above: Order Comment: Speci men Type: BLOOD SPECIMEN [facility] Address: [address] [place] [address] Performed By: #### 5 8410-2 #### [facility] CLIA [id number] [address] OF [facility] Hemoglobin (Bld) [Mass/Vol] 14.4 g/dL Normal 13.0-17.0 [facility] Comment on above: Order Comment: Speci men Type: BLOOD SPECIMEN [facility] Address: [address] [place] [address] Performed By: #### 5 8410-2 #### [facility] CLIA [id number] [address] MCH (RBC) [Entitic mass] 29.9 pg Normal 26.0-34.0 [facility] Comment on above: Order Comment: Speci men Type: BLOOD SPECIMEN [facility] Address: [address] [place] [address] Performed By: #### 5 8410-2 #### [facility] CLIA [id number] [address] MCHC (RBC) [Mass/Vol] 33.6 g/dL Normal 30.5-36.0 [facility] Comment on above: Order Comment: Speci men Type: BLOOD SPECIMEN [facility] Address: [address] [place] [address] Performed By: #### 5 8410-2 #### [facility] CLIA [id number] [address] MCV (RBC) [Entitic vol] 89.2 fL Normal 80.0-100.0 [facility] Comment on above: Order Comment: Speci men Type: BLOOD SPECIMEN [facility] Address: [address] [place] [address] Performed By: #### 5 8410-2 #### [facility] CLIA [id number] [address] Nucleated RBC (Bld) [#/Vol] 10*3/uL Normal <0.01 [facility] Comment on above: Order Comment: Speci men Type: BLOOD SPECIMEN [facility] Address: [address] [address] Performed By: #### 5 8410-2 #### [facility] CLIA [id number] [address] [facility] Platelet mean volume (Bld) [Entitic vol] 9.4 fL Normal 9.0-12.7 [facility] Comment on above: Order Comment: Speci men Type: BLOOD SPECIMEN [facility] Address: [address] [address] Performed By: #### 5 8410-2 #### [facility] CLIA [id number] [address] [place] Platelets (Bld) [#/Vol] 251 10*3/uL Normal 150-400 [facility] Comment on above: Order Comment: Speci men Type: BLOOD SPECIMEN [facility] Address: [address] [address] Performed By: #### 5 8410-2 #### [facility] CLIA [id number] [address] RBC (Bld) [#/Vol] 4.81 10*6/uL Normal 4.20-6.00 [facility] Comment on above: Order Comment: Speci men Type: BLOOD SPECIMEN [facility] Address: [address] [address] Performed By: #### 5 8410-2 #### [facility] CLIA [id number] [address] WBC (Bld) [#/Vol] 5.63 10*3/uL Normal 3.70-11.00 [facility] Comment on above: Order Comment: Speci men Type: BLOOD SPECIMEN [facility] Address: [address] [address] Performed By: #### 5 8410-2 #### [facility] CLIA [id number] [address] Erythrocyte distribution width (RBC) [Ratio] 13.2 % 11.5 - 15.0 % [facility] Hematocrit (Bld) [Volume fraction] 42.9 % 39.0 - 51.0 % [facility] Hemoglobin (Bld) [Mass/Vol] 14.4 g/dL 13.0 - 17.0 g/dL [facility] MCH (RBC) [Entitic mass] 29.9 pg 26.0 - 34.0 pg [facility] MCHC (RBC) [Mass/Vol] 33.6 g/dL 30.5 - 36.0 g/dL [facility] MCV (RBC) [Entitic vol] 89.2 fL 80.0 - 100.0 fL [facility] Nucleated RBC (Bld) [#/Vol] <0.01 k/uL [facility] Platelet mean volume (Bld) [Entitic vol] 9.4 fL 9.0 - 12.7 fL [facility] Platelets (Bld) [#/Vol] 251 10*3/uL 150 - 400 k/uL [facility] RBC (Bld) [#/Vol] 4.81 10*6/uL 4.20 - 6.0 0 m/uL [facility] WBC (Bld) [#/Vol] 5.63 10*3/uL 3.70 - 11.00 k/uL [facility] HISTORY PHYSICALon HISTORY PHYSICAL HNO ID: [id number] Author: Kinza Sutton APRN.GRANITE POLISHER Service: ? Author Type: Nurse Practitioner Type: [...] COVID-19 booster vaccine, age 12+ yr, bivalent ([employer]) 07/31/2021 Imm Admin: COVID-19 original vaccine, full [...] Miscellaneous Medical (more content not included)... Normal [facility] ANES POSTPROC EVALon 023 ANES POSTPROC EVAL HNO ID: [id number] Author: Gladis Turpin MD Service: Anesthesiology Author Type: Anesthesiologist Type: Anesthesia Postprocedure Evaluation Filed: 10/29/2022 10:58 AM Note Text: POST ANESTHESIA EVALUATION NOTE : 1985 Procedure Summary Date: 10/29/22 Room / Location: [facility] Anesthesia Start: 0854 Anesthesia Stop: 1020 Procedure: [...] October 29, 2022 TIME: 10:57 AM CSN: [id number] Normal [facility] ANES PRE-OPon 10-29-2022 ANES PRE-OP HNO ID: [id number] Author: Gladis Turpin MD Service: Anesthesiology Author Type: Anesthesiologist Type: Anesthesia Preprocedure Evaluation Filed: 10/29/2022 8:01 AM Note Text: ANESTHESIOLOGY DAY OF SURGERY NOTE : 1985 Procedure Information Date/Time: 10/29/22829 Scheduled providers: Daren Dimas MD Procedure: SIGMOIDOSCOPY Location: [facility] Estimated body mass index is 25.82 kg/m? [...] boxes Coloplast Tacho red flat wafer # 75697 - 1 box Coloplast Hardy red drainable pouches # 13710 - 1 box Ryan small barrier rings # 7805 - 1 tube stomahesive paste # 2650 - 1 box Coloplast Elastic barrier strips # 855636 - 1 bottle stomahesive powder # 38249 - 1 box adhesive remover wipes - [...] October 29, 2022 TIME: 8:01 AM CSN: [id number] Normal [facility] HISTORY PHYSICALon HISTORY PHYSICAL HNO ID: [id number] Author: KIRSTEN Ahumada Service: Anesthesiology Author Type: Physician Card Dealer Type: HANDP Filed: 10/29/2022 7:30 AM Note [...] Prior to Admission medications as of 10/29/22 3912 Medication Sig Last Dose Taking ondansetron orally disintegrating (ZOFRAN ODT) 4 mg disintegrating tablet Take 1 tablet by mouth every 8 hours as needed for nausea/vomiting. loperamide (IMODIUM) 2 mg cap(s) Take 1 capsule by mouth three times daily. Miscellaneous Medical Supply Ileostomy supplies: - 1 Box Coloplast One piece Assura drainable pouch OR - 2 boxes Coloplast Hardy red flat wafer # 55357 - 1 box Coloplast Tacho red drainable pouches # 92524 - 1 box [place] small barrier rings # 7805 - 1 tube stomahesive paste # 2650 - 1 box Coloplast Elastic barrier strips # 567451 - 1 bottle stomahesive powder # 67533 - 1 box adhesive remover wipes - [...] within d (more content not included)... Normal [facility] OPERATIVE NOon 10-29-2022 OPERATIVE NO HNO ID: [id number] Author: Daren Dimas MD Service: Gastroenterology Author Type: Physician Type: Operative Report Filed: 10/29/2022 10:30 AM Note Text: OPERATIVE/PROCEDURE REPORT LOG ID: [id number] Surgery/Procedure Date: Incision/Procedure Start Time: 9:46 AM Incision Close/Procedure End Time: 10:13 AM Surgeon(s)/Proceduralist(s) and Card Dealer(s): Surgeon(s) and Role: * Daren Dimas MD [...] 29, 2022 TIME: 10:25 AM PAGER/CONTACT #: [phone] [facility] ANES POSTPROC EVALon 023 ANES POSTPROC EVAL HNO ID: [id number] Author: Regan Beauchamp MD Service: Anesthesiology Author Type: Physician Type: Anesthesia Postprocedure Evaluation Filed: 10/22/2022 10:51 AM Note Text: POST ANESTHESIA EVALUATION NOTE : 1985 Procedure Summary Date: 10/22/22 Room / Location: [facility] Anesthesia Start: 1005 Anesthesia Stop: 1032 Procedure: [...] October 22, 2022 TIME: 10:51 AM CSN: [id number] Normal [facility] ANES PRE-OPon 10-22-2022 ANES PRE-OP HNO ID: [id number] Author: Regan Beauchamp MD Service: Anesthesiology Author Type: Physician Type: Anesthesia Preprocedure Evaluation Filed: 10/22/2022 8:20 AM Note Text: ANESTHESIOLOGY DAY OF SURGERY NOTE : 1985 Procedure Information Date/Time: 10/22/22929 Scheduled providers: Daren Dimas MD Procedure: SIGMOIDOSCOPY Location: [facility] Estimated body mass index is 25.69 kg/m? [...] drainable pouch OR - 2 boxes Coloplast Hardy red flat wafer # 13026 - 1 box Coloplast Hardy red drainable pouches # 89042 - 1 box Ryan small barrier rings # 7805 - 1 tube stomahesive paste # 2650 - 1 box Coloplast Elastic barrier strips # 923807 - 1 bottle stomahesive powder # 36753 - 1 box adhesive remover wipes - [...] October 22, 2022 TIME: 8:18 AM CSN: [id number] [facility] OPERATIVE NOon 10-22-2022 OPERATIVE NO HNO ID: [id number] Author: Daren Dimas MD Service: Gastroenterology Author Type: Physician Type: Operative Report Filed: 10/22/2022 10:31 AM Note Text: OPERATIVE/PROCEDURE REPORT LOG ID: [id number] Surgery/Procedure Date: Incision/Procedure Start Time: 10:12 AM Incision Close/Procedure End Time: 10:21 AM Surgeon(s)/Proceduralist(s) and Card Dealer(s): Surgeon(s) and Role: * Daren Dimas MD [...] 22, 2022 TIME: 10:23 AM PAGER/CONTACT #: [phone] [facility] 10-15-2022 [facility] Telephone (AGGENS7) SAMEUNICE ([id number]) 1985 M Date Time Provider Department 10/15/22 [...] boxes Coloplast Tacho red flat wafer # 38942 - 1 box Coloplast Hardy red drainable pouches # 96881 - 1 box Ryan small barrier rings # 7805 - 1 tube stomahesive paste # 2650 - 1 box Coloplast Elastic barrier strips # 008422 - 1 bottle stomahesive powder # 50096 - 1 box adhesive remover wipes - [...] by ESMER FLANAGAN MA on 10/22/22 [address] [facility] [address] Abdomen / Pelvis w IV [...] JUÁREZ II, DO, MD Date: 10/06/2022 09:01 [facility] 10-02-2022 [place] Telephone (AGGENS7) EUNICE VARGAS ([id number]) 1985 Date Time Provider Department 10/02/22 COLLIN [...] boxes Coloplast Tacho red flat wafer # 55259 - 1 box Coloplast Tacho red drainable pouches # 75078 - 1 box Ryan small barrier rings # 7805 - 1 tube stomahesive paste # 2650 - 1 box Coloplast Elastic barrier strips # 687489 - 1 bottle stomahesive powder # 26979 - 1 box adhesive remover wipes - [...] Encounter Status:Closed by MATTHEW DUCKWORTH on 10/03/22 [facility] ANES POSTPROC EVALon 023 ANES POSTPROC EVAL HNO ID: [id number] Author: Madi Medellin MD Service: Anesthesiology Author Type: Physician Type: Anesthesia Postprocedure Evaluation Filed: 09/26/2022 11:53 AM Note Text: POST ANESTHESIA EVALUATION NOTE : 1985 Procedure Summary Date: 09/26/22 Room / Location: [facility] Anesthesia Start: 917 Anesthesia Stop: 932 Procedure: [...] September 26, 2022 TIME: 11:53 AM CSN: [id number] [facility] ANES PRE-OPon 09-26-2022 ANES PRE-OP HNO ID: [id number] Author: Gladis Turpin MD Service: Anesthesiology Author Type: Anesthesiologist Type: Anesthesia Preprocedure Evaluation Filed: 09/26/2022 8:45 AM Note Text: ANESTHESIOLOGY DAY OF SURGERY NOTE : 1985 Procedure Information Date/Time: 09/26/22 0800 Scheduled providers: Collin Le MD Procedure: SIGMOIDOSCOPY Location: [facility] Estimated body mass index is [...] drainable pouch OR - 2 boxes Coloplast Hardy red flat wafer # 96110 - 1 box Coloplast Tacho red drainable pouches # 26990 - 1 box Ryan small barrier rings # 7805 - 1 tube stomahesive paste # 2650 - 1 box Coloplast Elastic barrier strips # 193539 - 1 bottle stomahesive powder # 32646 - 1 box adhesive remover wipes - [...] September 26, 2022 TIME: 8:45 AM CSN: [id number] Normal [facility] HISTORY PHYSICALon 3 HISTORY PHYSICAL HNO ID: [id number] Author: Alix Womack APRN.GRANITE POLISHER Service: Anesthesiology Author Type: Nurse Practitioner Type: [...] drainable pouch OR - 2 boxes Coloplast Hardy red flat wafer # 45263 - 1 box Coloplast Tacho red drainable pouches # 01918 - 1 box Ryan small barrier rings # 7805 - 1 tube stomahesive paste # 2650 - 1 box Coloplast Elastic barrier strips # 526104 - 1 bottle stomahesive powder # 51543 - 1 box adhesive remover wipes - [...] pneumonia; no hx of asthma, COPD, or MARGAIRTA Cardiovascular: No history of HTN requiring medication, no history of chest pain, palpitations, CHF, NC, cardiac surgery or stents GI: see HPI [...] or organomegaly (more content not included)... Normal [facility] OPERATIVE NOon 09-26-2022 OPERATIVE NO HNO ID: [id number] Author: Collin Le MD Service: Colorectal Author Type: Physician Type: Operative Report Filed: 09/26/2022 9:34 AM Note Text: OPERATIVE/PROCEDURE REPORT LOG ID: [id number] Surgery/Procedure Date: Incision/Procedure Start Time: 9:25 AM Incision Close/Procedure End Time: 9:28 AM Surgeon(s)/Proceduralist(s) and Card Dealer(s): Surgeon(s) and Role: * Aric Patino DO [...] 26, 2022 TIME: 9:32 AM PAGER/CONTACT #: [phone] [facility] ALLIED HEALTHon 09-16-2022 ALLIED HEALTH HNO ID: [id number] Author: RT Johnna(Lisa) Service: Radiology Author Type: [...] RT Johnna(R) September 16, 2022 10:31 AM [facility] XR COLON SINGLE CONTRASTon 0 09-16-2022 XR [...] Fluoroscopy was performed by the radiology physician's apartment assistant manager. 1 minute 42 seconds of fluoroscopy time [...] identified. IMPRESSION: Postoperative changes without apparent complications. Drawing Instructor: PSCB Transcribe Date/Time: Sep 16 2022 12:41P Dictated by : TITUS SALDAÑA MD This examination was interpreted and the report reviewed and electronically signed by: TITUS SALDAÑA MD on Sep 16 2022 12:43PM EST [id number] Normal [facility] Lipid 1996 panelon 3 Cholesterol [Mass/Vol] 115 mg/dL <200 mg/dL [facility] Cholesterol in HDL [Mass/Vol] 68 mg/dL >39 mg/dL [facility] Cholesterol in LDL [Mass/Vol] 29 mg/dL <100 mg/dL [facility] Cholesterol in LDL/Cholesterol in HDL [Mass ratio] 0.43 {ratio} <2.54 [facility] Cholesterol in VLDL [Mass/Vol] 18 mg/dL <30 mg/dL [facility] Cholesterol non HDL [Mass/Vol] 47 mg/dL <130 mg/dL [facility] Cholesterol.total/Chol esterol in HDL [Mass ratio] 1.69 {ratio} <5.10 [facility] Fasting Time 12 hrs [facility] Triglyceride [Mass/Vol] 88 mg/dL <150 mg/dL [facility] CNOVon 08-19-2022 CNOV Office Visit (KARIE Clark) EUNICE VARGAS ([id number]) 1985 Liam Date Time Provider Department 08/19/22 11:00 AM [facility] During your visit today, we recorded the following information about you: Pulse Blood pressure Weight Height 68/minute 134/80 74.8 kg 1.676 m Collin Le MD 08/19/2022 12:00 PM Signed Collin Le M.D. Colon AND Rectal Surgery [address] [facility], [address] [place] [address] SUBJECTIVE Eunice Vargas is a 36 year [...] drainable pouch OR - 2 boxes Coloplast Hardy red flat wafer # 50931 - 1 box Coloplast Hardy red drainable pouches # 67822 - 1 box Ryan small barrier rings # 7805 - 1 tube stomahesive paste # 2650 - 1 box Coloplast Elastic barrier strips # 260253 - 1 bottle stomahesive powder # 16443 - 1 box adhesive remover wipes - [...] hernia M (more content not included)... Normal [facility] Basic metabolic 2000 panelon 11-28-2021 Anion gap [Moles/Vol] 12 mmol/L 9 - 18 mmol/L [facility] Calcium [Mass/Vol] 9.0 mg/dL 8.5 - 10. 2 mg/dL [facility] Chloride [Moles/Vol] 102 mmol/L 97 - 10 5 mmol/L [facility] CO2 [Moles/Vol] 23 mmol/L 22 - 30 mmol/L [facility] Creatinine [Mass/Vol] 0.75 mg/dL 0.73 - 1.22 mg/dL [facility] Estimated Glomerular Filtration Rate 121 mL/min/1.73m >=60 mL/min/1.73 m [facility] Glucose [Mass/Vol] 87 mg/dL 74 - 99 mg/dL [facility] Potassium [Moles/Vol] 3.4 mmol/L Low 3.7 - 5.1 mmol/L [facility] Sodium [Moles/Vol] 137 mmol/L 136 - 144 mmol/L [facility] Urea nitrogen [Mass/Vol] 9 mg/dL 9 - 24 mg/dL [facility] CBC panel Auto (Bld)on 11-28 Erythrocyte distribution width (RBC) [Ratio] 15.5 % High 11.5 - 15.0 % [facility] Hematocrit (Bld) [Volume fraction] 39.2 % 39.0 - 51.0 % [facility] Hemoglobin (Bld) [Mass/Vol] 12.5 g/dL Low 13.0 - 17.0 g/dL [facility] MCH (RBC) [Entitic mass] 26.0 pg 26.0 - 34.0 pg [facility] MCHC (RBC) [Mass/Vol] 31.9 g/dL 30.5 - 36.0 g/dL [facility] MCV (RBC) [Entitic vol] 81.7 fL 80.0 - 100.0 fL [facility] Nucleated RBC (Bld) [#/Vol] 10*3/uL <0.01 k/uL [facility] Platelet mean volume (Bld) [Entitic vol] 8.2 fL Low 9.0 - 12.7 fL [facility] Platelets (Bld) [#/Vol] 570 10*3/uL High 150 - 400 k/uL [facility] RBC (Bld) [#/Vol] 4.80 10*6/uL 4.20 - 6.0 0 m/uL [facility] WBC (Bld) [#/Vol] 11.47 10*3/uL High 3.70 - 11.00 k/uL [facility] TYPE AND SCREEN,30 DAYon ABO O [facility] HIstorical Ab Scr Status Negative [facility] Rh Nom (Bld) Positive [facility] XR COLONIC TRANSIT IMAGE 3on 06-18-2021 IMPRESSION: Sitzmarks likely in the ascending colon and sigmoid. Stable prominently distended bowel loops within the abdomen. Drawing Instructor: [facility] Transcribe Date/Time: Jun 18 2021 8:28A Dictated by : FRANKI MILLER MD This examination was interpreted and the report reviewed and electronically signed by: FRANKI MILLER MD on Jun 18 2021 8:31AM [facility] DIVISION OF RADIOLOGY * [...] bases are clear. DIVISION OF RADIOLOGY Provider, [facility] - 06/18/2021 * * *Final Report* [...] prominently distended bowel loops within the abdomen. Drawing Instructor: JENIFFER Transcribe Date/Time: Jun 18 2021 8:28A Dictated by : FRANKI MILLER MD This examination was interpreted and the report reviewed and electronically signed by: FRANKI MILLER MD on Jun 18 2021 8:31AM EST [facility] XR COLONIC TRANSIT IMAGE 3Or dered By: Ccf Provider on 06-18-2021 [facility] XR COLONIC TRANSIT IMAGE 3on 06-16-2021 Radiology Study observation (narrative) [facility] XR COLONIC TRANSIT IMAGE 2on 06-14-2021 IMPRESSION: Sitzmarks as detailed in report. Drawing Instructor: JENIFFER Transcribe Date/Time: Jun 14 2021 5:14P Dictated by : MICHELET POTTER MD This examination was interpreted and the report reviewed and electronically signed by: MICHELET POTTER MD on Jun 14 2021 5:20PM [facility] DIVISION OF RADIOLOGY * [...] the rectosigmoid colon.. DIVISION [facility]IOLOGY [facility] * * *Final Report* [...] IMPRESSION IMPRESSION: Sitzmarks as detailed in report. Drawing Instructor: PSCB Transcribe Date/Time: Jun 14 2021 5:14P Dictated by : MICHELET POTTER MD This examination was interpreted and the report reviewed and electronically signed by: MICHELET POTTER MD on Jun 14 2021 5:20PM EST [facility] Radiology Study observation (narrative) [facility] XR COLONIC TRANSIT IMAGE 2Or dered By: [facility] Provider on 06-14-2021 [facility] Colon Study observatio n Nikki 06-12-2021 IMPRESSION: 1. Sitzmarks as described. 2. Diffuse colonic distention noting air is seen extending all the way to the rectum and as such may reflect ileus. Drawing Instructor: JENIFFER Transcribe Date/Time: Jun 12 2021 4:36P Dictated by : RODERICK HDZ MD This examination was interpreted and the report reviewed and electronically signed by: RODERICK HDZ MD on Jun 12 2021 4:39PM [facility] DIVISION OF RADIOLOGY * [...] vertebral body present. DIVISION OF RADIOLOGY Provider, [facility]21 * * *Final Report* * [...] rectum and as such may reflect ileus. Drawing Instructor: JENIFFER Transcribe Date/Time: Jun 12 2021 4:36P Dictated by : RODERICK HDZ MD This examination was interpreted and the report reviewed and electronically signed by: RODERICK HDZ MD on Jun 12 2021 4:39PM EST [facility] Radiology Study observation (narrative) [facility] Colon Study observatio n USOrdered By: Ccf Provider on 06-12-2021 [facility] CBCOrdered By: Derek Juarez on 06-06-2021 Hematocrit (Bld) [Volume fraction] 37.0 % Low 40.0 - 52.0 % [facility] Work Phone: Hemoglobin.gastrointes tinal spec 1 Ql [...] 10*6/uL Low 4.40 - 5.9 0 10*6/uL [facility] Work Phone: WBC (Bld) [#/Vol] 12.0 10*3/uL High 3.6 - 10.7 10*3/uL [facility] Work Phone: Test Performed by [facility], [address] [place] [address] [facility] Work Phone: [facility] Work Phone: Comp Metabolic Panelon 06-06 Calcium [Mass/Vol] 9.8 mg/dL Normal 8.4-10.4 [facility] Comment on above: Performed By: #### P HOS3, HEMOG, CMP3, MG3, TRIG3 #### [place] [address] [place], [place] ALP [Catalytic activity/Vol] 239 U/L High 38-126 [facility] Comment on above: Performed By: #### P HOS3, HEMOG, CMP3, MG3, TRIG3 #### [address] [address] [place], [place] ALT [Catalytic activity/Vol] 54 U/L High 0-49 [facility] Comment on above: Result Comment: The ALT test is performed by an updated assay method. Please note that the reference intervals have been changed and are now sex specific. Performed By: #### P HOS3, HEMOG, CMP3, MG3, TRIG3 #### [address] [address] [place], [place] Anion gap [Moles/Vol] 12 mmol/L Normal 3-13 [facility] Comment on above: Performed By: #### P HOS3, HEMOG, CMP3, MG3, TRIG3 #### [address] AST [Catalytic activity/Vol] 42 U/L Normal 15-46 [facility] Comment on above: Performed By: #### P HOS3, HEMOG, CMP3, MG3, TRIG3 #### [address] [address] [place], [place] Bilirubin [Mass/Vol] 0.8 mg/dL Normal 0.2-1.3 [facility] Comment on above: Performed By: #### P HOS3, HEMOG, CMP3, MG3, TRIG3 #### [facility] [address], [place] CO2 [Moles/Vol] 24 mmol/L Normal 22-30 [facility] Comment on above: Performed By: #### P HOS3, HEMOG, CMP3, MG3, TRIG3 #### [facility] [address], [place] Glucose [Mass/Vol] 81 mg/dL Normal 70-100 [facility] Comment on above: Performed By: #### P HOS3, HEMOG, CMP3, MG3, TRIG3 #### [facility] [address], [place] Protein [Mass/Vol] 8.3 g/dL High 6.3-8.2 [facility] Comment on above: Performed By: #### P HOS3, HEMOG, CMP3, MG3, TRIG3 #### [facility] [address], [place] Urea nitrogen [Mass/Vol] 26 mg/dL High 7-17 [facility] Comment on above: Performed By: #### P HOS3, HEMOG, CMP3, MG3, TRIG3 #### [facility] [address], [place] eGFR OTHER > 90.0 Normal >60 [facility] Comment on above: Result Comment: KDIG O [...] P HOS3, HEMOG, CMP3, MG3, TRIG3 #### [facility] [address], [place] Albumin [Mass/Vol] 4.2 g/dL Normal 3.5-5.0 [facility] Comment on above: Performed By: #### P HOS3, HEMOG, CMP3, MG3, TRIG3 #### [place] [address] [address] [place], [place] Chloride [Moles/Vol] 102 mmol/L Normal 98-107 [facility] Comment on above: Performed By: #### P HOS3, HEMOG, CMP3, MG3, TRIG3 #### [address] [address] [place], [place] Potassium [Moles/Vol] 3.9 mmol/L Normal 3.5-5.1 [facility] Comment on above: Performed By: #### P HOS3, HEMOG, CMP3, MG3, TRIG3 #### [address] [place] [address] [place] [place], [place] Sodium [Moles/Vol] 138 mmol/L Normal 135-145 [facility] Comment on above: Performed By: #### P HOS3, HEMOG, CMP3, MG3, TRIG3 #### [address] [place] [address] [address] [place], [place] Comp Metabolic PanelOrdered By: Derek Juarez on 06-06-2021 Creatinine [Mass/Vol] 0.91 mg/dL Normal 0.52-1.25 [facility] Work Phone: Comment on above: Performed By: #### P HOS3, HEMOG, CMP3, MG3, TRIG3 #### [address] [place] [address] [address] [place], [place] GFR/1.73 sq M.predicted among blacks MDRD (S/P/Bld) [Vol rate/Area] mL/min/{1.73_m2} Normal >60 [facility] Work Phone: Comment on above: Performed By: #### P HOS3, HEMOG, CMP3, MG3, TRIG3 #### [employer] [address] [place] [id number] Comprehensive Metabolic Pane lOrdered By: Derek Juarez on 06-06-2021 Albumin [Mass/Vol] 4.2 g/dL 3.5 - 5.0 g/dL [facility] Work Phone: ALP (Bld) [Catalytic activity/Vol] 239 U/L High 38 - 126 U/L [facility] Work Phone: ALT [Catalytic activity/Vol] 54 U/L High 0 - 49 U/L [facility] Work Phone: Comment on above: The ALT test is perf ormed by an updated assay method. Please note that the reference intervals have been changed and are now sex specific. Anion gap [Moles/Vol] 12 mmol/L 3 - 13 mmol/L [facility] Work Phone: AST [Catalytic activity/Vol] 42 U/L 15 - 46 U/L [facility] Work Phone: Bilirubin [Mass/Vol] 0.8 mg/dL 0.2 - 1 .3 mg/dL [facility] Work Phone: Calcium [Mass/Vol] 9.8 mg/dL 8.4 - 10. 4 mg/dL [facility] Work Phone: Chloride [Moles/Vol] 102 mmol/L 98 - 10 7 mmol/L [facility] Work Phone: CO2 [Moles/Vol] 24 mmol/L 22 - 30 mmol/L [facility] Work Phone: EGFR IF NonAfrican Dutch >90.0 >60 mL/min [facility] Work Phone: Comment on above: KDIGO guidelines [...] 8.3 g/dL High 6.3 - 8.2 g/dL [facility] Work Phone: Glucose [Mass/Vol] 81 mg/dL 70 - 100 mg/dL [facility] Work Phone: Potassium [Moles/Vol] 3.9 mmol/L 3.5 - 5.1 mmol/L [facility] Work Phone: Sodium [Moles/Vol] 138 mmol/L 135 - 145 mmol/L [facility] Work Phone: Urea nitrogen (BldV) [Mass/Vol] 26 mg/dL High 7 - 17 mg/dL [facility] Work Phone: Hemogramon 06-06-2021 Erythrocyte distribution width (RBC) [Ratio] 13.1 % Normal 11.5-14.5 [facility] Comment on above: Performed By: #### P HOS3, HEMOG, CMP3, MG3, TRIG3 #### [facility] [employer] [address] [address] Hematocrit (Bld) [Volume fraction] 37.0 % Low 40.0-52.0 [facility] Comment on above: Performed By: #### P HOS3, HEMOG, CMP3, MG3, TRIG3 #### [facility] [employer] [address] [address] Hemoglobin (Bld) [Mass/Vol] 12.6 g/dL Low 13.0-18.0 [facility] Comment on above: Performed By: #### P HOS3, HEMOG, CMP3, MG3, TRIG3 #### [place] [address] [place] [place], [place] MCH (RBC) [Entitic mass] 29.0 pg Normal 26.0-34.0 [facility] Comment on above: Performed By: #### P HOS3, HEMOG, CMP3, MG3, TRIG3 #### [address] [place] [address] [place] [place], [place] MCHC 34.0 % Normal 32.0-36.0 [facility] Comment on above: Performed By: #### P HOS3, HEMOG, CMP3, MG3, TRIG3 #### [address] [address] [place], [place] MCV (RBC) [Entitic vol] 85.3 fL Normal 80.0-98.0 [facility] Comment on above: Performed By: #### P HOS3, HEMOG, CMP3, MG3, TRIG3 #### [address] [address] [place], [place] Platelet mean volume (Bld) [Entitic vol] 9.0 fL Normal 7.4-10.4 [facility] Comment on above: Performed By: #### P HOS3, HEMOG, CMP3, MG3, TRIG3 #### [address] [address] [place], [place] Platelets (Bld) [#/Vol] 385 10*3/uL Normal 140-440 [facility] Comment on above: Performed By: #### P HOS3, HEMOG, CMP3, MG3, TRIG3 #### [address] RBC (Bld) [#/Vol] 4.34 10*6/uL Low 4.40-5.90 [facility] Comment on above: Performed By: #### P HOS3, HEMOG, CMP3, MG3, TRIG3 #### [address] WBC (Bld) [#/Vol] 12.0 10*3/uL High 3.6-10.7 [facility] Comment on above: Performed By: #### P HOS3, HEMOG, CMP3, MG3, TRIG3 #### [address] [address] [place] [address] Magnesiumon 06-06-2021 Magnesium [Mass/Vol] 2.2 mg/dL Normal 1.6-2.3 [facility] Comment on above: Performed By: #### P HOS3, HEMOG, CMP3, MG3, TRIG3 #### [address] [address] [place] [address] MagnesiumOrdered By: Derek Juarez on 06-06-2021 Magnesium [Mass/Vol] 2.2 mg/dL 1.6 - 2 .3 mg/dL [facility] Work Phone: No Panel InformationOrdered By: Derek Juarez on 06-06-2021 Interpretation and review of laboratory results Abnormal [facility] Work Phone: Test Performed by [facility], [address] [place] [id number] [facility] Work Phone: [facility] Work Phone: Phosphoruson 06-06-2021 Phosphate [Mass/Vol] 5.4 mg/dL High 2.5-4.5 [facility] Comment on above: Performed By: #### P HOS3, HEMOG, CMP3, MG3, TRIG3 #### [address] [address] [place] [address] PhosphorusOrdered By: Derek Juarez on 06-06-2021 Phosphate [Mass/Vol] 5.4 mg/dL High 2.5 - 4 .5 mg/dL [facility] Work Phone: Prealbuminon 06-06-2021 Prealbumin [Mass/Vol] 19.1 mg/dL Normal 17.6-36.0 [facility] Comment on above: Performed By: #### P AB #### [address] [address] [place] [address] PrealbuminOrdered By: Derek Juarez on 06-06-2021 Prealbumin [Mass/Vol] 19.1 mg/dL 17.6 - 36.0 mg/dL [facility] Work Phone: Test Performed by [facility], [address] [place] [address] [facility] Work Phone: [facility] Work Phone: Triglycerideon 06-06-2021 Triglyceride [Mass/Vol] 92 mg/dL Normal <150 [facility] Comment on above: Performed By: #### P HOS3, HEMOG, CMP3, MG3, TRIG3 #### [facility] [employer] [facility] [address] [place] [address] TriglycerideOrdered By: Monica Juarez on 06-06-2021 Triglyceride [Mass/Vol] 92 mg/dL <150 [facility] Work Phone: [facility] Surgical Pathology Depar tmenton 05-14-2021 [facility] Surgical Pathology Department Name EUNICE VARGAS Pathologist: SHADI HUMPHRIES M.D. Date of Procedure: 05/14/2021 Date Received: 05/15/2021 Date Reported 05/21/2021 Submitting Physician: BRENDA NELSON Location: [facility] Copy To/Referring/Attending: SEBASTIÁN GIBBONS Other External # [id number] FINAL DIAGNOSIS A. EXTENDED RIGHT SABIHA-COLECTOMY: --SEGMENT OF COLON WITH CONGESTION --TERMINAL ILEUM AND APPENDIX WITH NO SIGNIFICANT PATHOLOGICAL FINDINGS --MULTIPLE BENIGN LYMPH NODES Electronically Signed Out By SHADI HUMPHRIES M.D./[facility] By the signature on this report, the individual or group listed as making the Final Interpretation/Diagnosis certifies that they have reviewed this case. Clinical History: transverse colon volvulus Specimens Submitted As: A: EXTENDED RIGHT SABIHA-COLECTOMY Other Case Numbers [id number] Gross Description: A: Received in formalin, labeled [...] are not identified. Photographs have been taken. [employer] sections are submitted in 6 cassettes AAA Summary of Cassettes: Specimen Label Site A 1-3 human resources hr representative sections of the dilated ischemic bowel 4 human resources hr representative section of uninvolved right colon 5 human resources hr representative section of uninvolved cecum 6 human resources hr representative section of uninvolved terminal ileum, and small bowel 7 human resources hr representative sections of appendix 8 2 polyps 9 4 possible lymph nodes 10 3 possible lymph nodes aaa/05/16/2021 [facility] Department of Pathology [id number] [place] [address] Normal [facility] Comment on above: Performed By: #### U [facility] #### [facility] Surgical Pathology Department [address] [place] [address] XR LUMBAR 2V AP/LATon 2019 XR LUMBAR [...] file room for report to be called Drawing Instructor: [facility] Transcribe Date/Time: Dec 31 2019 8:13A Dictated by : ERENDIRA CROFT MD This examination was interpreted and the report reviewed and electronically signed by: ERENDIRA CROFT MD on Dec 31 2019 8:41AM EST Normal [facility] XR LUMBAR 2V AP/LATon 2019 XR [...] fixation. Intact hardware and preserved anatomic alignment. Drawing Instructor: [facility] Transcribe Date/Time: Sep 12 2019 4:19A Dictated by : SHERRY ZULETA MD This examination was interpreted and the report reviewed and electronically signed by: SHERRY ZULETA MD on Sep 12 2019 4:26AM EST Normal [facility] CT LUMBAR SPINE WO IVCONon 1 09-19-2018 CT LUMBAR SPINE WO IVCON * * *Final Report* * * DATE OF EXAM: Jul 19 2019 10:42AM [facility] 0508 - CT LUMBAR SPINE WO IVCON [...] lumbar interbody fusion with pedicle screw fixation Drawing Instructor: JENIFFER Transcribe Date/Time: Jul 19 2019 10:48A Dictated by : FLORENCE FERGUSON MD This examination was interpreted and the report reviewed and electronically signed by: FLORENCE FERGUSON MD on Jul 19 2019 12:54PM EST Normal [facility] Activated PTTon 07-06-2019 aPTT Coag (Bld) [Time] 28.1 s Normal 23.0-32.4 [facility] Comment on above: Result Comment: [...] laboratory APTT reagent in use throughout the [facility]. Performed By: #### A PTT #### [place] [address] Basic Panelon 07-06-2019 Creatinine [Mass/Vol] 0.90 mg/dL Normal 0.67-1.17 [facility] Comment on above: Performed By: #### P 8 #### [facility] [address], [place] [address] Anion gap [Moles/Vol] 12 mmol/L Normal 8-16 [facility] Comment on above: Performed By: #### P 8 #### [facility] [address], [place] [address] CO2 [Moles/Vol] 22 mmol/L Normal 21-32 [facility] Comment on above: Performed By: #### P 8 #### [facility] [address], [place] [address] Urea nitrogen [Mass/Vol] 14 mg/dL Normal 7-18 [facility] Comment on above: Performed By: #### P 8 #### [facility] [address], [place] [address] Calcium [Mass/Vol] 9.2 mg/dL Normal 8.5-10.1 [facility] Comment on above: Performed By: #### P 8 #### [facility] [address], [place] [address] Glucose [Mass/Vol] 94 mg/dL Normal 70-99 [facility] Comment on above: Performed By: #### P 8 #### [facility] [address], [place] [address] Chloride [Moles/Vol] 109 mmol/L High 98-107 [facility] Comment on above: Performed By: #### P 8 #### [facility] [address], [place] [address] Potassium [Moles/Vol] 4.4 mmol/L Normal 3.5-5.1 [facility] Comment on above: Performed By: #### P 8 #### [facility] [address], [place] [address] Sodium [Moles/Vol] 139 mmol/L Normal 136-145 [facility] Comment on above: Performed By: #### P 8 #### [facility] [address], [place] [address] Hemogramon 07-06-2019 Erythrocyte distribution width (RBC) [Ratio] 12.8 % Normal 11.6-14.4 [facility] Comment on above: Performed By: #### C BC1 #### [facility] [address], [place] [address] Hematocrit (Bld) [Volume fraction] 45.3 % Normal 40.1-51.0 [facility] Comment on above: Performed By: #### C BC1 #### [facility] [address], [place] [address] Hemoglobin (Bld) [Mass/Vol] 15.5 g/dL Normal 13.7-17.5 [facility] Comment on above: Performed By: #### C BC1 #### [facility] [address] [place] [address] MCH (RBC) [Entitic mass] 29.9 pg Normal 25.7-32.2 [facility] Comment on above: Performed By: #### C BC1 #### [facility] [address] [place] [address] MCHC (RBC) [Mass/Vol] 34.2 % Normal 32.3-36.5 [facility] Comment on above: Performed By: #### C BC1 #### [facility] [address] [place] [address] MCV (RBC) [Entitic vol] 87.3 fL Normal 83.2-95.6 [facility] Comment on above: Performed By: #### C BC1 #### [facility] [address], [place] [address] Platelet mean volume (Bld) [Entitic vol] 10.6 fL Normal 8.7-12.0 [facility] Comment on above: Performed By: #### C BC1 #### [facility] [address], [place] [address] Platelets (Bld) [#/Vol] 315 thou/cmm Normal 141-365 [facility] Comment on above: Performed By: #### C BC1 #### [facility] [address], [place] [address] RBC (Bld) [#/Vol] 5.19 mil/cmm Normal 4.63-6.08 [facility] Comment on above: Performed By: #### C BC1 #### [facility] [address], [place] [address] RDW SD 40.2 fl Normal 36.1-45.8 [facility] Comment on above: Performed By: #### C BC1 #### [facility] [address], [place] [address] WBC (Bld) [#/Vol] 5.91 thou/cmm Normal 4.23-9.07 [facility] Comment on above: Performed By: #### C BC1 #### [facility] [address], [place] [address] MDRD GFRon 07-06-2019 GFR/1.73 sq M predicted among non-blacks MDRD (S/P/Bld) [Vol rate/Area] mL/min/{1.73_m2} Normal >60mL/min/1 .73m2 [facility] Comment on above: Result Comment: If t he patient is , multiply the result by 1.210. Performed By: #### G FR #### [facility] [address] [place] [id number] Protimeon 07-06-2019 INR Coag (PPP) [Relative time] 0.97 {INR} Normal 0.90-1.30 [facility] Comment on above: Result Comment: Dali min K Antagonist (VKA) Therapeutic Range: INR 2 to 3 (Target INR of 2.5) Note: For patients treated with VKA drugs, such as warfarin, the [place] [employer] 2012 Guideline recommends [...] Chest 2012; 141:7S-47S Tyler HUBBARD et al. [facility] 2017; 70: 252-289 Performed By: #### P T #### [facility] [address] [place] [address] PT Coag (PPP) [Time] 10.5 s Normal 9.7-13.0 [facility] Comment on above: Performed By: #### P T #### [place] [address] Type and Screenon 07-06-2019 ABO group Nom (Bld) O Normal [facility] Comment on above: Performed By: #### T &S #### [place] [address] Comment PAT specimen Normal [facility] Comment on above: Performed By: #### T &S #### [place] [address] RH Type Positive Normal [facility] Comment on above: Performed By: #### T &S #### [place] [address] Urinalysis Routineon 019 Appearance (U) CLEAR Normal [facility] Comment on above: Performed By: #### U RIN2 #### [place] [address] Bilirubin (U) [Mass/Vol] Negative Normal Negative [facility] Comment on above: Performed By: #### U RIN2 #### [place] [address] Color (U) YELLOW Normal [facility] Comment on above: Performed By: #### U RIN2 #### [place] [address] Glucose Ql (U) Negative Normal Negative [facility] Comment on above: Performed By: #### U RIN2 #### [place] [address] Hemoglobin,Urine Negative Normal Negative [facility] Comment on above: Performed By: #### U RIN2 #### [place] [address] Ketone Urine Negative Normal Negative [facility] Comment on above: Performed By: #### U RIN2 #### [facility] [address] [place] [address] Leukocytes Esterase Negative Normal Negative [facility] Comment on above: Performed By: #### U RIN2 #### [facility] [address] [place] [address] Nitrites Urine Negative Normal Negative [facility] Comment on above: Performed By: #### U RIN2 #### [facility] [address] [place] [address] pH (U) 6.0 [pH] Normal 5.0-8.0 [facility] Comment on above: Performed By: #### U RIN2 #### [place] [address] Protein (U) [Mass/Vol] Negative Normal Negative [facility] Comment on above: Performed By: #### U RIN2 #### [place] [address] Specific [place], Ur 1.019 Normal 1.005-1.030 [facility] Comment on above: Performed By: #### U RIN2 #### [place] [address] Urobilinogen,Ur 0.2 EU/dL Normal 0.2-1.0 [facility] Comment on above: Performed By: #### U RIN2 #### [place] [address] Bacteria LM.HPF (Urine sed) [#/Area] NONE Normal None [facility] Comment on above: Performed By: #### U RIN2 #### [facility] [address] [place] [address] Ep Cells Urine 0.1 /hpf Normal 0.0-5.0 [facility] Comment on above: Performed By: #### U RIN2 #### [place] [address] Hyaline Cast 0.0 /lpf Normal 0.0-1.0 [facility] Comment on above: Performed By: #### U RIN2 #### [facility] [address], [place] [address] RBC LM.HPF (Urine sed) [#/Area] 0.2 /[HPF] Normal 0.0-5.0 [facility] Comment on above: Performed By: #### U RIN2 #### [facility] [address] [place], [place] [address] WBC LM.HPF (Urine sed) [#/Area] 0.6 /[HPF] Normal 0.0-5.0 [facility] Comment on above: Performed By: #### U RIN2 #### [facility] [address] [place], [place] [address] XR CHEST 2V FRONTAL/LATon XR CHEST 2V [...] partially imaged on the radiograph of 06/09/2019. Drawing Instructor: PSCB Transcribe Date/Time: Jul 07 2019 10:56A Dictated by : ANALISA ELY MD This examination was interpreted and the report reviewed and electronically signed by: ANALISA ELY MD on Jul 07 2019 10:59AM EST Normal [facility] XR LUMBAR 4V AP/LAT/ FLEX/EX Ton [...] Dedicated chest x-ray recommended to further evaluate. Drawing Instructor: JENIFFER Transcribe Date/Time: Jun 15 2019 11:39A Dictated by : ALY HERNANDES MD This examination was interpreted and the report reviewed and electronically signed by: ALY HERNANDES MD on Jun 13 2019 6:55PM EST This document has been addended by: ALY HERNANDES MD on Jun 15 2019 11:40AM EST Normal [facility] MRI LUMBAR SPINE WO IVCONon 06-03-2019 [...] and assume there are 5 lumbar-type vertebrae. Drawing Instructor: JENIFFER Transcribe Date/Time: Jun 03 2019 7:43A Dictated by : EMMA CALDERON MD This examination was interpreted and the report reviewed and electronically signed by: EMMA CALDERON MD on Jun 03 2019 7:57AM EST Normal [facility] Vital Signs Date Time Vital Sign Value Performing Clinician Marc busby 04-26-2025 11:12-0400 Body mass index (BMI) [Ratio] 30.49 kg/m2 Henrry Haider PA-C Work Phone: [facility] 04-26-2025 11:12-040 Body temperature 98.29 [degF] Henrry Haider PA-C Work Phone: [facility] 04-26-2025 11:12-040 Body weight 85.7 kg Henrry Haider PA-C Work Phone: [facility] 04-26-2025 11:12-0400 Diastolic blood pressure 82 mm[Hg] Henrry Enmaaugh PA-C Work Phone: [facility] 04-26-2025 11:12-0400 Heart rate 117 /min Henrry Enmaaugh PA-C Work Phone: [facility] 04-26-2025 11:12-0400 Respiratory rate 16 /min Henrry Enmaaugh PA-C Work Phone: [facility] 04-26-2025 11:12-0400 SaO2% (BldA) [Mass fraction] 98 % Henrry Enmaaugh PA-C Work Phone: [facility] 04-26-2025 11:12-0400 Systolic blood pressure 112 mm[Hg] Henrry Enmaaugh PA-C Work Phone: [facility] 04-01-2025 13:30-0400 Body temperature 97.5 [degF] Jesus Raza COSMETIC SALES ADVISOR-C Work Phone: [facility] 04-01-2025 13:30-0400 Diastolic blood pressure 88 mm[Hg] Jesus Raza COSMETIC SALES ADVISOR-C Work Phone: [facility] 04-01-2025 13:30-0400 Heart rate 102 /min Jesus Raza COSMETIC SALES ADVISOR-C Work Phone: [facility] 04-01-2025 13:30-0400 Respiratory rate 16 /min Jesus Raza COSMETIC SALES ADVISOR-C Work Phone: [facility] 04-01-2025 13:30-0400 SaO2% (BldA) [Mass fraction] 96 % Jesus Raza COSMETIC SALES ADVISOR-C Work Phone: [facility] 04-01-2025 13:30-0400 Systolic blood pressure 122 mm[Hg] Jesus Raza COSMETIC SALES ADVISOR-C Work Phone: [facility] 04-01-2025 12:14-0400 Body height 167.64 cm Jesus Raza COSMETIC SALES ADVISOR-C Work Phone: [facility] 04-01-2025 12:14-0400 Body mass index (BMI) [Ratio] 30.9 kg/m2 Jesus Raza COSMETIC SALES ADVISORPeteC Work Phone: [facility] 04-01-2025 12:14-0400 Body weight 87 kg Jesus DIALLOC Work Phone: [facility] 12-22-2024 08:00-0400 Body weight 85.38 kg Mallory Mckeon MD Work Phone: [facility] 12-22-2024 08:00-0400 Diastolic blood pressure 85 mm[Hg] Mallory Mckeon MD Work Phone: [facility] 12-22-2024 08:00-0400 Heart rate 60 /min Mallory Mckeon MD Work Phone: [facility] 12-22-2024 08:00-0400 Respiratory rate 16 /min Mallory Mckeon MD Work Phone: [facility] 12-22-2024 08:00-0400 SaO2% (BldA) [Mass fraction] 97 % Mallory Mckeon MD Work Phone: [facility] 12-22-2024 08:00-0400 Systolic blood pressure 124 mm[Hg] Mallory Mckeon MD Work Phone: [facility] 07-15-2024 08:16-0500 Body mass index (BMI) [Ratio] 30 kg/m2 Madi Barfield MD Work Phone: [facility] 07-15-2024 08:16-0500 Body temperature 97.11 [degF] Madi Barfield MD Work Phone: [facility] 07-15-2024 08:16-0500 Body weight 84.3 kg Madi Barfield MD Work Phone: [facility] 07-15-2024 08:16-0500 Diastolic blood pressure 74 mm[Hg] Madi Barfield MD Work Phone: [facility] 07-15-2024 08:16-0500 Heart rate 67 /min Madi Barfield MD Work Phone: [facility] 07-15-2024 08:16-0500 Respiratory rate 20 /min Madi Barfield MD Work Phone: [facility] 07-15-2024 08:16-0500 SaO2% (BldA) [Mass fraction] 99 % Madi Barfield MD Work Phone: [facility] 07-15-2024 08:16-0500 Systolic blood pressure 111 mm[Hg] Madi Barfield MD Work Phone: [facility] 04-20-2024 07:53-0400 Body mass index (BMI) [Ratio] 29.05 kg/m2 Jesus Raza APRN.GRANITE POLISHER Work Phone: [facility] 04-20-2024 07:53-0400 Body weight 81.65 kg Jesus Raza APRN.GRANITE POLISHER Work Phone: [facility] 04-20-2024 07:53-0400 Diastolic blood pressure 82 mm[Hg] Jesus Raza PROFESSOR OF BIBLICAL STUDIES.GRANITE POLISHER Work Phone: [facility] 04-20-2024 07:53-0400 Heart rate 73 /min Jesus Raza APRN.GRANITE POLISHER Work Phone: [facility] 04-20-2024 07:53-0400 Respiratory rate 14 /min Jesus Raza APRN.GRANITE POLISHER Work Phone: [facility] 04-20-2024 07:53-0400 Systolic blood pressure 124 mm[Hg] Jesus Raza PROFESSOR OF BIBLICAL STUDIES.GRANITE POLISHER Work Phone: [facility] 09-26-2023 09:04-0500 Body weight 80.29 kg Jesus Raza APRN.GRANITE POLISHER Work Phone: [facility] 09-26-2023 09:04-0500 Diastolic blood pressure 74 mm[Hg] Jesus Raza APRN.GRANITE POLISHER Work Phone: [facility] 09-26-2023 09:04-0500 Heart rate 80 /min Jesus Mary Louoble PROFESSOR OF BIBLICAL STUDIES.GRANITE POLISHER Work Phone: [facility] 09-26-2023 09:04-0500 Respiratory rate 14 /min Jesus Knoble PROFESSOR OF BIBLICAL STUDIES.GRANITE POLISHER Work Phone: [facility] 09-26-2023 09:04-0500 Systolic blood pressure 112 mm[Hg] Jesus Knoble PROFESSOR OF BIBLICAL STUDIES.GRANITE POLISHER Work Phone: [facility] 07-17-2023 16:49-0500 Body temperature 98.01 [degF] Santa Rascon PROFESSOR OF BIBLICAL STUDIES.GRANITE POLISHER Work Phone: [facility] 07-17-2023 16:49-0500 Body weight 81.01 kg Santa Rascon PROFESSOR OF BIBLICAL STUDIES.GRANITE POLISHER Work Phone: [facility] 07-17-2023 16:49-0500 Diastolic blood pressure 80 mm[Hg] Santa Rascon PROFESSOR OF BIBLICAL STUDIES.GRANITE POLISHER Work Phone: [facility] 07-17-2023 16:49-0500 Heart rate 85 /min Santa Rascon PROFESSOR OF BIBLICAL STUDIES.GRANITE POLISHER Work Phone: [facility] 07-17-2023 16:49-0500 Respiratory rate 1 /min Santa Rascon PROFESSOR OF BIBLICAL STUDIES.GRANITE POLISHER Work Phone: [facility] 07-17-2023 16:49-0500 SaO2% (BldA) [Mass fraction] 97 % Santa Rascon PROFESSOR OF BIBLICAL STUDIES.GRANITE POLISHER Work Phone: [facility] 07-17-2023 16:49-0500 Systolic blood pressure 118 mm[Hg] Santa Rascon PROFESSOR OF BIBLICAL STUDIES.GRANITE POLISHER Work Phone: [facility] 04-22-2023 10:41-0400 Body height 167.6 cm Rolando Jabier DO Work Phone: [facility] 04-22-2023 10:41-0400 Body weight 77.56 kg Rolando Jabier DO Work Phone: [facility] 04-22-2023 10:41-0400 Diastolic blood pressure 92 mm[Hg] Rolando Jabier DO Work Phone: [facility] 04-22-2023 10:41-0400 Heart rate 66 /min Rolando Jabier DO Work Phone: [facility] 04-22-2023 10:41-0400 SaO2% (BldA) [Mass fraction] 99 % Rolando Jabier DO Work Phone: [facility] 04-22-2023 10:41-0400 Systolic blood pressure 135 mm[Hg] Rolando Jabier DO Work Phone: [facility] 03-18-2023 13:09-0400 Body height 167.6 cm Rolando Jabier DO Work Phone: [facility] 03-18-2023 13:09-0400 Body weight 77.56 kg Rolando Jbaier DO Work Phone: [facility] 03-18-2023 13:09-0400 Diastolic blood pressure 70 mm[Hg] Rolando Jabier DO Work Phone: [facility] 03-18-2023 13:09-0400 Heart rate 77 /min Rolando Jabier DO Work Phone: [facility] 03-18-2023 13:09-0400 Respiratory rate 16 /min Rolando Jabier DO Work Phone: [facility] 03-18-2023 13:09-0400 SaO2% (BldA) [Mass fraction] 99 % Rolando Jabier DO Work Phone: [facility] 03-18-2023 13:09-0400 Systolic blood pressure 123 mm[Hg] Rolando Jabier DO Work Phone: [facility] 03-13-2023 12:05-0400 Body temperature 98.49 [degF] Krislyn Aberegg PA Work Phone: [facility] 03-13-2023 12:05-0400 Body weight 77.75 kg Krislyn Aberegg PA Work Phone: [facility] 03-13-2023 12:05-0400 Diastolic blood pressure 84 mm[Hg] Krislyn Aberegg PA Work Phone: [facility] 03-13-2023 12:05-0400 Heart rate 88 /min Krislyn Aberegg PA Work Phone: [facility] 03-13-2023 12:05-0400 Respiratory rate 18 /min Krislyn Aberegg PA Work Phone: [facility] 03-13-2023 12:05-0400 SaO2% (BldA) [Mass fraction] 98 % Krislyn Aberegg PA Work Phone: [facility] 03-13-2023 12:05-0400 Systolic blood pressure 130 mm[Hg] Krislyn Aberegg PA Work Phone: [facility] 12-11-2022 09:20-0400 Body height 167.6 cm Collin Le MD Work Phone: [facility] 12-11-2022 09:20-0400 Body weight 71.67 kg Collin Le MD Work Phone: [facility] 12-11-2022 09:20-0400 Diastolic blood pressure 81 mm[Hg] Collin Le MD Work Phone: [facility] 12-11-2022 09:20-0400 Heart rate 69 /min Collin Le MD Work Phone: [facility] 12-11-2022 09:20-0400 Systolic blood pressure 123 mm[Hg] Collin Le MD Work Phone: [facility] 11-21-2022 10:02-0400 Body height 167.6 [address] 1 [facility] 11-21-2022 10:02-0400 Body temperature 97.9 [degF] Pst 1 [facility] 11-21-2022 10:02-0400 Body weight 74.84 kg Pst 1 [facility] 11-21-2022 10:02-0400 Diastolic blood pressure 73 mm[Hg] Pst 1 [facility] 11-21-2022 10:02-0400 Heart rate 70 /min Pst 1 [facility] 11-21-2022 10:02-0400 Respiratory rate 16 /min Pst 1 [facility] 11-21-2022 10:02-0400 SaO2% (BldA) [Mass fraction] 99 % Pst 1 [facility] 11-21-2022 10:02-0400 Systolic blood pressure 110 mm[Hg] Pst 1 [facility] 10-29-2022 10:30-0400 Diastolic blood pressure 87 mm[Hg] Daren Dimas MD Work Phone: [facility] 10-29-2022 10:30-0400 Heart rate 85 /min Daren Dimas MD Work Phone: [facility] 10-29-2022 10:30-0400 Respiratory rate 16 /min Daren Dimas MD Work Phone: [facility] 10-29-2022 10:30-0400 SaO2% (BldA) [Mass fraction] 98 % Daren Dimas MD Work Phone: [facility] 10-29-2022 10:30-0400 Systolic blood pressure 120 mm[Hg] Daren Dimas MD Work Phone: [facility] 10-29-2022 10:19-0400 Body temperature 98.1 [degF] Daren Dimas MD Work Phone: [facility] 10-29-2022 07:30-0400 Body height 167.6 cm Daren Dimas MD Work Phone: [facility] 10-29-2022 07:30-0400 Body weight 72.58 kg Daren Dimas MD Work Phone: [facility] 10-22-2022 10:43-0400 Diastolic blood pressure 86 mm[Hg] Daren Dimas MD Work Phone: [facility] 10-22-2022 10:43-0400 Heart rate 71 /min Daren Dimas MD Work Phone: [facility] 10-22-2022 10:43-0400 Respiratory rate 14 /min Daren Dimas MD Work Phone: [facility] 10-22-2022 10:43-0400 SaO2% (BldA) [Mass fraction] 100 % Daren Dimas MD Work Phone: [facility] 10-22-2022 10:43-0400 Systolic blood pressure 115 mm[Hg] Daren Dimas MD Work Phone: [facility] 10-22-2022 10:31-0400 Body temperature 96.8 [degF] Daren Dimas MD Work Phone: [facility] 09-26-2022 09:53-0500 Diastolic blood pressure 89 mm[Hg] Collin Le MD Work Phone: [facility] 09-26-2022 09:53-0500 Heart rate 74 /min Collin Le MD Work Phone: [facility] 09-26-2022 09:53-0500 Respiratory rate 16 /min Collin Le MD Work Phone: [facility] 09-26-2022 09:53-0500 SaO2% (BldA) [Mass fraction] 100 % Collin Le MD Work Phone: [facility] 09-26-2022 09:53-0500 Systolic blood pressure 122 mm[Hg] Collin Le MD Work Phone: [facility] 09-26-2022 09:33-0500 Body temperature 97.7 [degF] Collin Le MD Work Phone: [facility] 09-26-2022 08:35-0500 Body height 170.2 cm Collin Le MD Work Phone: [facility] 09-26-2022 08:35-0500 Body weight 74.39 kg Collin Le MD Work Phone: [facility] 08-22-2022 08:53-0500 Body height 170.2 cm Cassie Richardson MD Work Phone: [facility] 08-22-2022 08:53-0500 Body temperature 97.11 [degF] Cassie Richardson MD Work Phone: [facility] 08-22-2022 08:53-0500 Body weight 76.2 kg Csasie Richardson MD Work Phone: [facility] 08-22-2022 08:53-0500 Diastolic blood pressure 68 mm[Hg] Cassie Richardson MD Work Phone: [facility] 08-22-2022 08:53-0500 Heart rate 65 /min Cassie Richardson MD Work Phone: [facility] 08-22-2022 08:53-0500 SaO2% (BldA) [Mass fraction] 94 % Cassie Richardson MD Work Phone: [facility] 08-22-2022 08:53-0500 Systolic blood pressure 106 mm[Hg] Cassie Richardson MD Work Phone: [facility] 08-19-2022 10:54-0500 Body height 167.6 cm Collin Le MD Work Phone: [facility] 08-19-2022 10:54-0500 Body weight 74.84 kg Collin Le MD Work Phone: [facility] 08-19-2022 10:54-0500 Diastolic blood pressure 80 mm[Hg] Collin Le MD Work Phone: [facility] 08-19-2022 10:54-0500 Heart rate 68 /min Collin Le MD Work Phone: [facility] 08-19-2022 10:54-0500 Systolic blood pressure 134 mm[Hg] Collin Le MD Work Phone: [facility] 03-07-2022 07:50-0400 Body height 170.2 cm Simone Becerra MD Work Phone: [facility] 03-07-2022 07:50-0400 Body weight 71.71 kg Simone Becerra MD Work Phone: [facility] 03-07-2022 07:50-0400 Diastolic blood pressure 75 mm[Hg] Simone Becerra MD Work Phone: [facility] 03-07-2022 07:50-0400 Heart rate 59 /min Simone Becerra MD Work Phone: [facility] 03-07-2022 07:50-0400 Systolic blood pressure 120 mm[Hg] Simone Becerra MD Work Phone: [facility] 01-08-2022 10:24-0400 Body temperature 99.39 [degF] Lacey Fortune INSTRUMENT SETTER Work Phone: [facility] 01-08-2022 10:24-0400 Diastolic blood pressure 60 mm[Hg] Lacey Fortune INSTRUMENT SETTER Work Phone: [facility] 01-08-2022 10:24-0400 Heart rate 67 /min Lacey Fortune INSTRUMENT SETTER Work Phone: [facility] 01-08-2022 10:24-0400 Respiratory rate 18 /min Lacey Fortune INSTRUMENT SETTER Work Phone: [facility] 01-08-2022 10:24-0400 SaO2% (BldA) [Mass fraction] 98 % Lacey Fortune INSTRUMENT SETTER Work Phone: [facility] 01-08-2022 10:24-0400 Systolic blood pressure 102 mm[Hg] Lacey Fortune INSTRUMENT SETTER Work Phone: [facility] 01-01-2022 12:04-0400 Body temperature 99 [degF] Maile Caruso RN Work Phone: [facility] 01-01-2022 12:04-0400 Diastolic blood pressure 74 mm[Hg] Maile Caruso RN Work Phone: [facility] 01-01-2022 12:04-0400 Heart rate 86 /min Maile Caruso RN Work Phone: [facility] 01-01-2022 12:04-0400 Respiratory rate 16 /min Maile Caruso RN Work Phone: [facility] 01-01-2022 12:04-0400 SaO2% (BldA) [Mass fraction] 97 % Maile Caruso RN Work Phone: [facility] 01-01-2022 12:04-0400 Systolic blood pressure 118 mm[Hg] Maile Caruso RN Work Phone: [facility] 12-31-2021 09:16-0400 Body height 170.2 cm Collin Le MD Work Phone: [facility] 12-31-2021 09:16-0400 Body weight 63.96 kg Collin Le MD Work Phone: [facility] 12-31-2021 09:16-0400 Diastolic blood pressure 74 mm[Hg] Collin Le MD Work Phone: [facility] 12-31-2021 09:16-0400 Heart rate 98 /min Collin Le MD Work Phone: [facility] 12-31-2021 09:16-0400 Systolic blood pressure 111 mm[Hg] Collin Le MD Work Phone: [facility] 12-28-2021 09:08-0400 Body temperature 98.6 [degF] Maile Caruso RN Work Phone: [facility] 12-28-2021 09:08-0400 Diastolic blood pressure 78 mm[Hg] Maile Caruso RN Work Phone: [facility] 12-28-2021 09:08-0400 Heart rate 80 /min Maile Caruso RN Work Phone: [facility] 12-28-2021 09:08-0400 Respiratory rate 16 /min Maile Caruso RN Work Phone: [facility] 12-28-2021 09:08-0400 SaO2% (BldA) [Mass fraction] 98 % Maile Caruso RN Work Phone: [facility] 12-28-2021 09:08-0400 Systolic blood pressure 114 mm[Hg] Maile Caruso RN Work Phone: [facility] 12-24-2021 11:15-0400 Body temperature 98.4 [degF] Maile Caruso RN Work Phone: [facility] 12-24-2021 11:15-0400 Body weight 65.32 kg Maile Caruso RN Work Phone: [facility] 12-24-2021 11:15-0400 Diastolic blood pressure 68 mm[Hg] Maile Caruso RN Work Phone: [facility] 12-24-2021 11:15-0400 Heart rate 74 /min Maile Caruso RN Work Phone: [facility] 12-24-2021 11:15-0400 Respiratory rate 16 /min Maile Caruso RN Work Phone: [facility] 12-24-2021 11:15-0400 SaO2% (BldA) [Mass fraction] 98 % Maile Caruso RN Work Phone: [facility] 12-24-2021 11:15-0400 Systolic blood pressure 122 mm[Hg] Maile Caruso RN Work Phone: [facility] 12-21-2021 08:50-0400 Body height 170.2 cm Anna Garber RN Work Phone: [facility] 12-21-2021 08:50-0400 Body temperature 96.01 [degF] Anna Garber RN Work Phone: [facility] 12-21-2021 08:50-0400 Body weight 65.32 kg Anna Garber RN Work Phone: [facility] 12-21-2021 08:50-0400 Diastolic blood pressure 70 mm[Hg] Anna Garber RN Work Phone: [facility] 12-21-2021 08:50-0400 Heart rate 76 /min Anna Garber RN Work Phone: [facility] 12-21-2021 08:50-0400 Respiratory rate 16 /min Anna Garber RN Work Phone: [facility] 12-21-2021 08:50-0400 SaO2% (BldA) [Mass fraction] 97 % Anna Garber RN Work Phone: [facility] 12-21-2021 08:50-0400 Systolic blood pressure 114 mm[Hg] Anna Garber RN Work Phone: [facility] 11-28-2021 13:55-0400 Body height 170.2 cm Pst 1 [facility] 11-28-2021 13:55-0400 Body temperature 98.1 [degF] Pst 1 [facility] 11-28-2021 13:55-0400 Body weight 67.13 kg Pst 1 [facility] 11-28-2021 13:55-0400 Diastolic blood pressure 70 mm[Hg] Pst 1 [facility] 11-28-2021 13:55-0400 Heart rate 95 /min Pst 1 [facility] 11-28-2021 13:55-0400 Respiratory rate 16 /min Pst 1 [facility] 11-28-2021 13:55-0400 SaO2% (BldA) [Mass fraction] 96 % Pst 1 [facility] 11-28-2021 13:55-0400 Systolic blood pressure 103 mm[Hg] Pst 1 [facility] 11-14-2021 10:55-0400 Body height 170.2 cm Collin Le MD Work Phone: [facility] 11-14-2021 10:55-0400 Body temperature 97.9 [degF] Collin Le MD Work Phone: [facility] 11-14-2021 10:55-0400 Body weight 69.4 kg Collin Le MD Work Phone: [facility] 11-14-2021 10:55-0400 Diastolic blood pressure 76 mm[Hg] Collin Le MD Work Phone: [facility] 11-14-2021 10:55-0400 Heart rate 95 /min Collin Le MD Work Phone: [facility] 11-14-2021 10:55-0400 Systolic blood pressure 124 mm[Hg] Collin Le MD Work Phone: [facility] Encounters Encounter Date Encounter Type Care Provider Facility Start: 04-26-2025 End: 04-26-2025 Office outpatient visit 25 minutes Henrry Haider PAPeteC Work Phone: [facility] Comment on above: Viral URI with cough (Primary Dx); SERVIN (dyspnea on exertion); Diarrhea, unspecified type Start: 04-26-2025 End: 04-26-2025 ambulatory HENRRY HAIDER Facility:[facility] Start: 04-01-2025 ambulatory Tom Campbell Facility :[facility] Start: 04-01-2025 Non-patient / Non-visit Tom Peoples nd DO -[facility] Start: 04-01-2025 End: 04-01-2025 Admission to same day surgery center Tom Campbell DO -Endoscopy Work Phone: Start: 04-01-2025 End: 04-01-2025 ambulatory Jesus Raza COSMETIC SALES ADVISOR-C Work Phone: -Endoscopy Start: 01-17-2025 End: 01-17-2025 ambulatory Mallory Mckeon MD Work Phone: [facility] Work Phone: Start: 01-17-2025 End: 01-17-2025 Patient encounter procedure Zhane Hollis COSMETIC SALES ADVISOR-C -Cat Scan [facility] Work Phone: Start: 01-17-2025 End: 01-17-2025 ambulatory Zhane Hollis Facility:[facility] Start: 12-22-2024 End: 12-22-2024 Patient encounter procedure Zhane Hollis COSMETIC SALES ADVISOR-C -[facility] Work Phone: Start: 12-22-2024 End: 12-22-2024 ambulatory Mallory Mckeon MD Work Phone: [facility] Work Phone: Start: 10-27-2024 Encounter for genera l adult medical examination without abnormal findings Mallory Mckeon [facility] Start: 10-19-2024 End: 10-19-2024 ambulatory Jesus Raza COSMETIC SALES ADVISOR-C Work Phone: [facility] Work Phone: Start: 10-19-2024 End: 10-19-[address] Mallory Mckeon MD -Laboratory, [facility] Start: 10-19-2024 End: 10-19-2024 ambulatory Mallory Mckeon Facility:[facility] Start: 08-18-2024 End: 08-18-2024 Patient encounter procedure Tom Campbell DO -[facility] Work Phone: Start: 08-18-2024 End: 08-18-2024 ambulatory Jesus Raza Facility:[facility] Start: 07-15-2024 End: 07-15-2024 ambulatory JESUS RAZA Facility:[facility] Start: 07-15-2024 End: 07-15-2024 Office outpatient visit 15 minutes Madi Barfield MD Work Phone: [facility] Comment on above: URI, acute (Primary Dx) Start: 05-25-2024 End: 05-25-2024 ambulatory Tom Campbell Facility:[facility] Start: 05-14-2024 End: 05-14-2024 ambulatory Tom Campbell Facility:[facility] Start: 05-11-2024 End: 05-11-2024 ambulatory Tom Campbell Facility:[facility] Start: 05-11-2024 End: 05-11-2024 ambulatory Tom Campbell Facility:[facility] Start: 04-29-2024 End: 04-29-2024 Telephone encounter Jesus Raza APRN.GRANITE POLISHER Work Phone: [facility] Comment on above: Orders Start: 04-27-2024 End: 04-29-2024 ambulatory Jesus Raza APRN.GRANITE POLISHER Work Phone: [facility] Start: 04-27-2024 End: 04-29-2024 Patient encounter procedure Jesus Raza APRN.GRANITE POLISHER Work Phone: [facility] Comment on above: Gastroenterology Ref erral Start: 04-20-2024 End: 04-20-2024 Telephone encounter Jesus Raza APRN.GRANITE POLISHER Work Phone: [facility] Comment on above: Results Start: 04-20-2024 End: 04-20-2024 Patient encounter procedure Jesus Raza APRN.GRANITE POLISHER Work Phone: [facility] Comment on above: Nausea (Primary Dx); Colonic inertia; Ileus following gastrointestinal surgery (HCC); Generalized abdominal pain; Colon stricture (HCC) Start: 09-29-2023 Telephone encounter Jesus domínguez APRN.GRANITE POLISHER Work Phone: [facility] Comment on above: Results Start: 09-26-2023 End: 09-26-2023 Patient encounter procedure Jesus Raza APRN.GRANITE POLISHER Work Phone: [facility] Comment on above: Screening for lipid disorders (Primary Dx); Wellness examination; Screening for diabetes mellitus; Colonic inertia Start: 09-26-2023 End: 09-26-2023 Patient encounter status Jesus Raza APRN.GRANITE POLISHER Work Phone: [facility] Work Phone: Start: 07-17-2023 End: 07-17-2023 Subsequent hospital visit by physician Xr [facility] [place] Work Phone: Radiology Comment on above: Acute cough [R05.1] Start: 07-17-2023 End: 07-17-2023 Patient encounter procedure Santa Rascon APRN.GRANITE POLISHER Work Phone: [facility] Comment on above: Acute cough (Primary Dx) Start: 04-22-2023 End: 04-22-2023 ambulatory ROLANDO EUGENE Facility:[facility] Start: 04-22-2023 End: 04-22-2023 Patient encounter procedure Rolando P Jabier DO Work Phone: [facility] Comment on above: Lumbar radiculopathy (Primary Dx) Start: 04-21-2023 End: 04-21-2023 Subsequent hospital visit by physician Mri [facility] (I-Stat/1.5t) Work Phone: Radiology Comment on above: Spinal stenosis of l umbar region without neurogenic claudication [M48.061] Start: 03-18-2023 End: 03-18-2023 ambulatory ROLANDO Nubia JABIER [facility] Start: 03-18-2023 End: 03-18-2023 Patient encounter procedure Rolando Nubia Jabier DO Work Phone: [facility] Comment on above: Lumbar radiculopathy (Primary Dx); Spinal stenosis of lumbar region without neurogenic claudication Start: 03-18-2023 End: 03-18-2023 Subsequent hospital visit by physician Xr [place] [employer] [facility] Comment on above: Lumbar radiculopathy [M54.16] Start: 03-13-2023 End: 03-13-2023 Subsequent hospital visit by physician Xr [facility] [place] Work Phone: Radiology Comment on above: Acute left-sided low back pain with left-sided sciatica [M54.42] Start: 03-13-2023 End: 03-13-2023 Patient encounter procedure Jesus CURTIS Work Phone: [facility] Comment on above: Acute left-sided low back pain with left-sided sciatica (Primary Dx) Start: 03-04-2023 Telephone encounter Manoj dove DO Work Phone: [facility] Start: 01-29-2023 End: 01-29-2023 Subsequent hospital visit by physician Xr [facility] [place] Work Phone: Radiology Comment on above: URI, acute [J06.9] Start: 01-21-2023 ambulatory DRAEN DIMAS Facility:[facility] Start: 12-11-2022 End: 12-11-2022 ambulatory COLLIN LE Facility:[facility] Start: 12-11-2022 End: 12-11-2022 Patient encounter procedure Collin Le MD Work Phone: [facility] Comment on above: Colonic inertia (Sailaja sotero Dx) Start: 12-06-2022 End: 12-06-2022 Subsequent hospital visit by physician Adonis [facility] Work Phone: Radiology Comment on above: Status post reversal of ileostomy [Z98.890] Start: 11-21-2022 Encounter for other preprocedural examination DAREN DIMAS [facility] Start: 11-21-2022 End: 11-21-2022 Admission to [address] Start: 11-21-2022 End: 11-22-2022 ambulatory KINAZ SUTTON [facility] Comment on above: Pre-op exam (Primary Dx); Colonic inertia Start: 11-21-2022 End: 11-21-2022 Preprocedural examination done [facility] Start: 10-29-2022 ambulatory CASSIE ADKINS NANCIE Fac ility:[facility] Start: 10-29-2022 End: 10-29-2022 Subsequent hospital visit by physician Daren Dimas MD Work Phone: [facility] Comment on above: Rectal stricture [K6 2.4] Start: 10-22-2022 ambulatory CASSIE RICHARDSON Fac ility:[facility] Start: 10-22-2022 End: 10-22-2022 Subsequent hospital visit by physician Daren Dimas MD Work Phone: [place] [facility] Comment on above: Rectal stenosis [K62 .4] Start: 10-16-2022 Orders Only Daren Dimas MD Work Phone: [facility] [place] Comment on above: Rectal stenosis (Sailaja sotero Dx) Start: 10-15-2022 Telephone encounter Collin santiago MD Work Phone: [facility] Comment on above: Patient Update Start: 10-06-2022 End: 10-07-2022 ambulatory LINETTE LAMB [facility] ital Start: 10-02-2022 Telephone encounter Collin santiago MD Work Phone: [facility] Comment on above: Patient Update Start: 09-26-2022 End: 09-26-2022 Orders Only Daren Dimas MD Work Phone: [place] PROVID[facility] ADULT Comment on above: Rectal stricture (Pr imary Dx) Colonic inertia [K59 .9] Start: 09-16-2022 ambulatory COLLIN Bryant cility:[facility] Start: 09-16-2022 End: 09-16-2022 Subsequent hospital visit by physician Gi/Gu 1 [facility] (I-Stat) [facility]/ [facility] Comment on above: Colonic inertia [K59 .9] Start: 09-06-2022 Orders Only Collin lala MD Work Phone: [facility] Comment on above: Colonic inertia (Sailaja sotero Dx) Start: 08-22-2022 End: 08-22-2022 Patient encounter procedure Cassie Richardson MD Work Phone: [facility] Comment on above: Encounter for immuni zation (Primary Dx); Screening for lipid disorders; Wellness examination Start: 08-22-2022 End: 08-22-2022 Patient encounter status Cassie Richardson MD Work Phone: [facility] Start: 08-19-2022 End: 08-19-2022 ambulatory COLLIN LE Facility:[facility] Start: 08-19-2022 End: 08-19-2022 Patient encounter procedure Collin Le MD Work Phone: [facility] Comment on above: Colonic inertia (Sailaja sotero Dx) Start: 04-04-2022 Patient Outreach Asha Bey RN [employer] Comment on above: Transition Of Care ( TCM initial outreach-dc'd from [facility] 04/03/22) Start: 03-07-2022 End: 03-07-2022 Patient encounter procedure Simone Becerra MD Work Phone: [facility] GASTRO [facility] Comment on above: Colonic inertia Start: 01-11-2022 Telephone encounter Leonie Alejandre RN [place] [facility] MANAGEMENT Comment on above: 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 Start: 01-08-2022 End: 01-08-2022 Home visit Lacey Fortune INSTRUMENT SETTER Work Phone: [facility] Comment on above: SN ROUTINE Start: 01-01-2022 End: 01-01-2022 Home visit Maile Caruso RN Work Phone: [facility] Comment on above: SN ROUTINE Start: 12-31-2021 End: 12-31-2021 Patient encounter procedure Collin Le MD Work Phone: [facility] Comment on above: Colonic inertia (Sailaja sotero Dx); Ventral hernia without obstruction or gangrene Start: 12-28-2021 End: 12-28-2021 Home visit Maile Caruso RN Work Phone: [facility] Comment on above: SN PRN VISIT Start: 12-27-2021 End: 12-27-2021 Home visit Maile Caruso RN Work Phone: [facility] Comment on above: SN UNMADE VISIT Start: 12-24-2021 End: 12-24-2021 Home visit Maile Caruso RN Work Phone: [facility] Comment on above: SN ROUTINE Start: 12-21-2021 End: 12-21-2021 Home visit Anna Garber RN Work Phone: [facility] Comment on above: SN SOC Start: 12-20-2021 Patient Outreach Kylee Owen RN [facility] [place] Care Management Comment on above: Transition Of Care ( TCM [facility] discharge 12-19-21- initial outreach ) Start: 11-28-2021 End: 11-28-2021 Admission to establishment [address] Start: 11-28-2021 End: 11-28-2021 [address] Pst 1 Pre Surgical Testing Comment on above: Preop examination (P rimary Dx); Colonic inertia Start: 11-28-2021 End: 11-28-2021 Preprocedural examination done Pst 1 Pre Surgical Testing Start: 11-28-2021 End: 11-28-2021 Patient encounter procedure Ostomy Nurse [facility] Comment on above: Other specified coun seling (Primary Dx) Start: 11-14-2021 End: 11-14-2021 Patient encounter procedure Collin Le MD Work Phone: [facility] Comment on above: Colonic inertia (Sailaja sotero Dx); Ventral hernia without obstruction or gangrene Start: 06-16-2021 End: 06-16-2021 Subsequent hospital visit by physician Xr [facility] [employer] Work Phone: Radiology Comment on above: Volvulus (HCC) [K56. 2] Start: 06-14-2021 End: 06-14-2021 Subsequent hospital visit by physician Xr [facility] [employer] Work Phone: Radiology Comment on above: Volvulus (HCC) [K56. 2] Start: 06-12-2021 End: 06-12-2021 Subsequent hospital visit by physician Xr [facility] [employer] Work Phone: Radiology Comment on above: Volvulus (HCC) [K56. 2] Start: 06-06-2021 End: 06-06-2021 Subsequent hospital visit by physician Derek Juarez MD Work Phone: [facility] Procedures Date Procedure Procedure Detail Performing Clinician Start: 04-26-2025 COVID & INFLUENZA A/B & RSV PCR, ROUTINE Henrry Haider PA-C Work Phone: Start: 04-01-2025 Esophagogastroduodenoscopy Jesus jenkins COSMETIC SALES ADVISOR-C Work Phone: Start: 01-17-2025 Computed tomography of abdomen and pelvis with contrast Mallory Mckeon MD Work Phone: Start: 09-26-2023 Adult depression screening assessment Madi Barfield MD Work Phone: Start: 09-26-2023 Lipid 1996 panel - Serum or Plasma Benjamin Raza PROFESSOR OF BIBLICAL STUDIES.GRANITE POLISHER Work Phone: Start: 07-17-2023 Radiologic exam chest 2 views Santa Braun ggs PROFESSOR OF BIBLICAL STUDIES.GRANITE POLISHER Work Phone: Start: 04-21-2023 Mri spinal canal [...] Collin Le MD Work Phone: Start: 08-22-2022 [employer] COVID-19 BIVALENT BOOSTER VACCINE, AGE 12+ YR [...] on above: Performed By: #### T&S #### [place] [address] Plan of Treatment Date Care Activity Detail Author Start: 09-26-2028 Lipid panel Lipid Screening [facility] Start: 03-03-2028 Urine microalbumin profile [facility] Start: 08-22-2027 Lipid 1996 panel - Serum or Plasma Lipid Screening [facility] Start: 08-22-2027 Lipid panel Lipid Screening [facility] Start: 08-22-2027 LIPID SCREEN LIPID SCREEN [facility] Start: 04-11-2025 Influenza vaccination Influenza Vaccine (#1) [facility] Start: 04-01-2025 Patient discharge [facility] Start: 12-22-[address] [facility] Work Phone: Start: 09-26-2024 Anxiety Screening Anxiety Screening [facility] Start: 09-26-2024 Covid-19 Vaccine ( season) Covid-19 Vaccine () [facility] Comment on above: Postponed from 04/11/2023 (Declined at t his time) Start: 09-26-2024 Depression Screening Depression Screening [facility] Start: 04-11-2024 Covid-19 Vaccine ( season) Covid-19 Vaccine ( season) [facility] Start: 04-11-2024 Covid-19 Vaccine ( season) Covid-19 Vaccine ( season) [facility] Start: 04-11-2024 Influenza vaccination Influenza Vaccine (#1) [facility] Start: 02-08-2024 Influenza vaccination Influenza Vaccine (#1) [facility] Comment on above: Postponed from 04/11/2023 (Declined at t his time) Start: 09-26-2023 End: 12-26-2023 CBC W Auto Differential panel - Blood [facility] Work Phone: Comment on above: Expected: 09/26/2023, Expires: Start: 09-26-2023 End: 12-26-2023 Comprehensive metabolic 2000 panel - Serum or Plasma [facility] Work Phone: Comment on above: Expected: 09/26/2023, Expires: 4 Start: 09-26-2023 End: 12-26-2023 Hemoglobin A1c in Blood [facility] Work Phone: Comment on above: Expected: 09/26/2023, Expires: 4 Start: 09-26-2023 End: 12-26-2023 LIPID PANEL, NONFASTING [facility] Work Phone: Comment on above: Expected: 09/26/2023, Expires: 4 Start: 04-11-2023 Covid-19 Vaccine ( season) Covid-19 Vaccine ( season) [facility] Start: 04-11-2023 Influenza vaccination [facility] Start: 02-07-2023 Influenza vaccination INFLUENZA (#1) [facility] Comment on above: Postponed from 04/11/2022 (Declined at t his time) Start: 09-06-2022 End: 09-06-2023 SARS-CoV-2 (COVID-19) RNA [Presence] in Respiratory specimen by RAVINDER with probe detection PRE-PROCEDURE & PRE-OPERATIVE COVID Microbiology Routine Colonic inertia Expected: 09/06/2022, Expires: 09/06/[address] [facility] Work Phone: Comment on above: Expected: 09/06/2022, Expires: 4 Start: 08-11-2022 DEPRESSION ASSESSMENT DEPRESSION ASSESSMENT [facility] Start: 04-11-2022 Influenza vaccination INFLUENZA (#1) [facility] Start: 11-14-2021 End: 01-14-2022 Hemoglobin A1c/Hemoglobin.total in Blood HGB A1C Lab Routine Colonic inertia Ventral hernia without obstruction or gangrene Expected: 11/14/2021, Expires: 01/14/[address] [facility] Work Phone: Comment on above: Expected: 11/14/2021, Expires: 2 Start: 09-25-2021 COVID-19 VACCINE (4 - Booster for Moderna series) COVID-19 VACCINE (4 - Booster for Moderna series) [facility] Start: 2020 LIPID SCREEN LIPID SCREEN [facility] Start: 07-19-2020 Adult depression screening assessment DEPRESSION SCREENING [facility] Start: 2012 HPV Vaccine (1 - 3-dose SCDM series) HPV Vaccine (1 - 3-dose SCDM series) [facility] Start: 12-15-2003 Anxiety Screening Anxiety Screening [facility] Start: 12-15-2003 Depression Screening Depression Screening [facility] Start: 12-15-2003 HEPATITIS C SCREENING HEPATITIS C SCREENING [facility] Start: 12-15-2003 Hepatitis C screening Hepatitis C Screening [facility] Start: 12-15-2003 HIV SCREENING HIV SCREENING [facility] Start: 12-15-2003 HIV screening HIV Screening [facility] C reactive protein [Mass/volume] in Serum or Plasma [facility] CBC W Auto Different ial panel - Blood [facility] Comprehensive metabo lic 2000 panel - Serum or Plasma [facility] End: 05-20-2025 CT Abdomen and Pelvis W contrast IV CT ABD/PEL W IVCON Radiology STAT Nausea Colonic inertia Ileus following gastrointestinal surgery (HCC) Generalized abdominal pain Colon stricture (HCC) 1 Occurrences starting 04/20/2024 until 05/20/[address] [facility] Work Phone: Comment on above: 1 Occurrences starting 04/20/2024 until 05/20/2025 CT Abdomen and Pelvi s W contrast IV [facility] H&P for surgery H&P FOR SURGERY Procedures Routine Colonic inertia Ordered: 09/06/[address] [facility] Work Phone: Comment on above: Ordered: 09/06/2022 IgA [Mass/volume] in Serum or Plasma [facility] End: 04-16-2024 Mri spinal canal lumbar w/o contrast material MRI LUMBAR SPINE WO IVCON Radiology Routine Spinal stenosis of lumbar region without neurogenic claudication 1 Occurrences starting 03/18/2023 until 04/16/[address] [facility] Work Phone: Comment on above: 1 Occurrences starting 03/18/2023 until 04/16/[address] [facility] Work Phone: End: 04-11-2024 Radex spine lumbosacral 2/3 views XR LUMBAR LIMITED 2V FLEX/EXT Radiology Routine Lumbar radiculopathy 1 Occurrences starting 03/13/2023 until 04/11/[address] [facility] Work Phone: Comment on above: 1 Occurrences starting 03/13/2023 until 04/11/2024 Radex spine lumbosac ral 2/3 views XR LUMBAR LIMITED 2V FLEX/EXT Radiology Routine Lumbar radiculopathy 03/18/2023 12:44 PM EDT [facility] Work Phone: End: 09-18-2023 Radiologic exam colon single contrast study XR COLON SINGLE CONTRAST Radiology Routine Colonic inertia 1 Occurrences starting 08/19/2022 until 09/18/[address] [facility] Work Phone: Comment on above: 1 Occurrences starting 08/19/2022 until 09/18/2023 End: 09-06-2023 SIGMOIDOSCOPY SIGMOIDOSCOPY Endoscopy Routine Colonic inertia 1 Occurrences starting 09/06/2022 until 09/06/[address] [facility] Work Phone: Comment on above: 1 Occurrences starting 09/06/2022 until 09/06/2023 End: 09-26-2023 SIGMOIDOSCOPY SIGMOIDOSCOPY Endoscopy Routine Rectal stricture 1 Occurrences starting 09/26/2022 until 09/26/[address] [facility] Work Phone: Comment on above: 1 Occurrences starting 09/26/2022 until 09/26/2023 End: 09-26-2022 SIGMOIDOSCOPY SIGMOIDOSCOPY Endoscopy Routine Colonic inertia 1 Occurrences starting 09/26/2022 until 09/26/[address] [facility] Work Phone: Comment on above: 1 Occurrences starting 09/26/2022 until 09/26/2022 End: 10-17-2023 SIGMOIDOSCOPY SIGMOIDOSCOPY Endoscopy Routine Rectal stenosis 1 Occurrences starting 10/16/2022 until 10/17/[address] [facility] Work Phone: Comment on above: 1 Occurrences starting 10/16/2022 until 10/17/2023 End: 10-22-2022 SIGMOIDOSCOPY SIGMOIDOSCOPY Endoscopy Routine Rectal stenosis 1 Occurrences starting 10/22/2022 until 10/22/[address] [facility] Work Phone: Comment on above: 1 Occurrences starting 10/22/2022 until 10/22/2022 End: 10-29-2022 SIGMOIDOSCOPY SIGMOIDOSCOPY Endoscopy Routine Rectal stricture 1 Occurrences starting 10/29/2022 until 10/29/[address] [facility] Work Phone: Comment on above: 1 Occurrences starting 10/29/2022 until 10/29/2022 Tissue transglutamin ase IgA Ab [Units/volume] in Serum [facility] Immunizations Immunization Date Immunization Notes [facility] COVID-19 booster vaccine, age 12+ yr, bivalent (PFIZER-BIONTECH) Cassie Richardson MD Work Phone: [facility] 07-31-2021 influenza, injectabl e, quadrivalent, contains preservative Collin Le MD Work Phone: [facility] 07-31-2021 influenza virus vaccine, unspecified formulation Rolando Eugene DO Work Phone: [facility] 05-20-2020 influenza, injectabl e, quadrivalent, contains preservative Collin Le MD Work Phone: [facility] 05-12-2019 influenza, injectabl e, quadrivalent, contains preservative Collin Le MD Work Phone: [facility] 05-20-2018 influenza, seasonal, injectable Collin Le MD Work Phone: [facility] 03-03-2018 tetanus toxoid, reduced diphtheria toxoid, and acellular pertussis vaccine, adsorbed Collin Le MD Work Phone: [facility] 05-22-2017 tetanus toxoid, reduced diphtheria toxoid, and acellular pertussis vaccine, adsorbed Collin Le MD Work Phone: [facility] 04-22-2005 Meningococcal, MCV4, unspecified conjugate formulation(groups A, C, Y and W-135) Collin Le MD Work Phone: [facility] Work Phone: 04-22-2005 tetanus toxoid, reduced diphtheria toxoid, and acellular pertussis vaccine, adsorbed Collin Le MD Work Phone: [facility] Work Phone: 06-24-2002 hepatitis B vaccine, pediatric or pediatric/adolescent dosage Collin Le MD Work Phone: [facility] Work Phone: 11-26-2001 hepatitis B vaccine, pediatric or pediatric/adolescent dosage Collin Le MD Work Phone: [facility] Work Phone: 10-14-2001 hepatitis B vaccine, pediatric or pediatric/adolescent dosage Collin Le MD Work Phone: [facility] Work Phone: Payers Date Payer Category Payer Private Health Insurance [id number] 2024 Self-pay 2022 Unknown [id number] 2022 Unknown [id number] 2017 Private Health Insurance [employer] A ETNA CHOICE POS II [id number] 2017-Present [phone] [address] [place] [address] POS [id number] 2017 Private Health Insurance [id number] 1985 Unknown [id number] 1959 Unknown [id number] Unknown [id number] 62 Unknown [id number] 62 Unknown [id number] 62 Unknown [id number] 62 Unknown [id number] 62 Unknown [id number] 62 Unknown [id number] 62 Unknown [id number] 62 Unknown [id number] 62 Unknown [id number] 62 Social History Date Type Detail [facility] Work Phone: Start: 1985 Sex Assigned At Not on file S [facility] Work Phone: Start: 11-14-2021 End: 10-29-2022 Tobacco smoking status MIIS Never smoked tobacco [facility] History of tobacco use Cigarette Smoker [facility] Start: 11-14-2021 End: 10-29-2022 Tobacco use and exposure Smokeless tobacco non-user [facility] Start: 11-14-2021 End: 04-26-2025 Alcohol intake Current drinker of alcohol (finding) [facility] Start: 11-14-2021 End: 12-11-2022 Alcohol intake [facility] Start: 08-20-2021 End: 11-29-2022 History SDOH Alcohol Frequency 1 [facility] Start: 08-20-2021 History SDOH Alcohol Std Drinks 98 [facility] Start: 08-20-2021 History SDOH Social Connections Phone 4 [facility] Start: 08-20-2021 End: 11-29-2022 History SDOH Social Connections Membership 2 [facility] Start: 08-20-2021 History SDOH Social Connections Living 3 [facility] Start: 08-20-2021 History SDOH Physica l Activity DPW 0 [facility] Start: 08-20-2021 End: 11-29-2022 History SDOH Financial 5 [facility] Start: 07-02-2019 End: 10-22-2022 Tobacco Comment cigar 2 - 3 x yearly [facility] Start: 1985 Sex Assigned At Male C [facility] Start: 05-08-2021 End: 04-03-2022 Exposure to SARS-CoV-2 (event) Not sure [facility] Start: 11-28-2021 History SDOH Alcohol Comment 4 drinks per month [facility] Start: 11-18-2021 End: 11-28-2021 Exposure to SARS-CoV-2 (event) Unable to assess [facility] Start: 09-26-2022 Alcohol Comment 2-3x/week [facility] Start: 08-20-2021 End: 12-11-2022 Social connection and isolation panel [facility] Do you belong to any clubs or organizations such as amish groups, unions, fraternal or athletic groups, or school groups? No [facility] Are you now , , , , never or living with a partner? [facility] How often to you hav e a drink containing alcohol? Never [facility] Start: 07-12-[address] inks containing alcohol do you have on a typical day? Patient refused [facility] Do you feel stress - tense, restless, nervous, or anxious, or unable to sleep at night because your mind is troubled all the time - these days [OSQ] To some extent [facility] (I/We) worried sahara er (my/our) food would run out before (I/we) got money to buy more. Never true [facility] Work Phone: Start: 06-06-2021 Gender identity Identifies as male gender (finding) [facility] How often to you hav e a drink containing alcohol? 2-3 time sa week [facility] How many standard dr inks containing alcohol do you have on a typical day? 1 or 2 [facility] How hard is it for y ou to pay for the very basics like food, housing, medical care, and heating Somewhat hard [facility] (I/We) worried sahara er (my/our) food would run out before (I/we) got money to buy more. Sometimes true [facility] Start: 07-02-2019 Tobacco smoking stat us MIIS Occasional tobacco smoker [facility] How often to you hav e a drink containing alcohol? 4 or more times a week [facility] Work Phone: Start: 10-27-2024 Sex Male (finding) [facility] Medical Equipment Procedure Code Equipment Code Equipment Origin al Text Equipment Identifier Dates Substitute Mastergraft Calcium Phosphate Collagen Bone Graft Putty Void - [id number] Start: 07-19-2019 Dev Bul Par 9x12 x23 - [id number] Start: 07-19-2019 Screw Viper Prim e Cfxfen Xtab 7x45mm [id number] Start: 07-19-2019 Screw Viper Prim e Cfxfen Xtab 7x50mm [id number] Start: 07-19-2019 William Viper 2 Lordotic Titanium 45mm Spinal Mis - [id number] Start: 07-19-2019 William Viper 2 Titanium 50mm Spinal Lordotic Minimally Invasive Surgery - [id number] Start: 07-19-2019 Set Titanium Scr ew 1 Inner Mis Spine - [id number] Start: 07-19-2019 Ileostomy suppli es: - 1 Box Coloplast One piece Assura drainable pouch OR - 2 boxes Coloplast Tacho red flat wafer # [id number] - 1 box Coloplast Hardy red drainable pouches # 58326 - 1 box [place] small barrier rings # 7805 - 1 tube stomahesive paste # 2650 - 1 box Coloplast Elastic barrier strips # [id number] - 1 bottle stomahesive powder # 95464 - 1 box adhesive remover wipes - 1 box skin barrier prep wipes # [id number] Start: 12-07-2021 End: 03-18-2023 Comment on above: Ileostomy supplies: - 1 Box Coloplast One piece Assura drainable pouch OR - 2 boxes Coloplast Tacho red flat wafer # [id number] - 1 box Coloplast Hardy red drainable pouches # 14957 - 1 box [place] small barrier rings # 7805 - 1 tube stomahesive paste # 2650 - 1 box Coloplast Elastic barrier strips # [id number] - 1 bottle stomahesive powder # 21730 - 1 box adhesive remover wipes - 1 box skin barrier prep wipes # Goals Date Patient Goal Desired Activity /State Functional Status Date Assessment Result Facility 12-03-2022 Are you deaf, or do you have serious difficulty hearing No 12/03/2022 9:41 AM Noemy Alarcon RN [facility] 12-03-2022 Are you blind, or do you have serious difficulty seeing, even when wearing glasses No 12/03/2022 9:41 AM Noemy Alarcon RN No [facility] 12-03-2022 Do you have serious difficulty walking or climbing stairs No 12/03/2022 9:41 AM Noemy Alarcon RN [facility] 12-03-2022 Do you have difficul ty dressing or bathing No 12/03/2022 9:41 AM Noemy Alarcon RN [facility] 12-03-2022 Because of a physica l, mental, or emotional condition, do you have difficulty doing errands alone such as visiting a physician's office or shopping No 12/03/2022 9:41 AM Noemy Alarcon RN [facility] Mental Status Date Assessment Result Facility 04-01-2025 Cognitive function Level Of Cons ciousness Awake;Alert;Appropriate [facility] Work Phone: 04-01-2025 Cognitive function Voice/Name [facility] Work Phone: 12-03-2022 Because of a physica l, mental, or emotional condition, do you have serious difficulty concentrating, remembering, or making decisions No 12/03/2022 9:41 AM Noemy Alarcon RN No [facility] Clinical Notes 06-12-2021 to 04-26-2025 [...] 11:20 AM 04/26/25 documented in this encounter [facility] 04-26-2025 Note SARS-COV-2 (AGENT OF COVID-19) RNA: Not detected INFLUENZA A RNA: Not detected INFLUENZA B RNA: Not detected RESPIRATORY SYNCYTIAL VIRUS (RSV) RNA: Not detected [facility] Comment on above: Performed By: #### 9 [id number] #### [facility] CLIA [id number] [address] [place] [address] [place] [address] [place] 04-26-2025 Note HNO ID: [id number] Author: HENRRY HAIDER PA-C Service: ? 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 Mouth/Throat: Lips: Derwood. No lesions. Mouth: Mucous membranes are moist. [...] eye: No dischar (more content not included)... [facility] 04-26-2025 History of Presen t illness [...] tenderness or frontal sinus tenderness. Mouth/Throat: Lips: Derwood. No lesions. Mouth: Mucous membranes are moist. [...] which included preparing to see the patient, [id number] patient care, completing clinical documentation, obtaining and/or [...] Drug use: Never documented in this encounter [facility] 04-01-2025 Consult note Note Date/Time April 01, 2025 1: 23pm [facility] Medical Records Department [address] [place] [address] Anesthesia Postop Eval I 04/01/25 1323 MR#: [id number] Acct: [id number] Name: EUNICE VARGAS Rep #:[id number] : 1985 39 From: Lul crenshaw CRNA PCP: Dr. Mallory Mckeon MD Status:REG SD C Y Race: C Location: [place] [address] Anesthesia: Postop Eval I Current Vital Signs [...] 04/01/25 1323 <Electronically signed by Lul Mcclellan PROFESSOR OF MUSICOLOGY> Date _ Lul Celestin PROFESSOR OF MUSICOLOGY Cosigner Signature: Date CC: ~ Signed [facility] Work Phone: 1(866) 188-496308-22-2025 History and physical note Author Tom Friend [facility] Note Date/Time April 01, 2025 1: 03pm [facility] Medical Records Department [address] [place] [address] History & Physical Exam 04/01/25 1302 MR#: [id number] Acct: [id number] Name: EUNICE VARGAS Rep #:[id number] : 1985 39 From: Tom Campbell DO PCP: Dr. Mallory Mckeon MD Status:REG SD C Location: [place] [address] HPI - General General Date of Admission: [...] - no change in pain with movement [facility] Medical History Wears contact lenses Wears glasses [...] systemic symptoms, the patient has been referred toallergist/transportation associate Dr. Idris Ghosh for review of prior serum allergen testing and management guidance. The role of magnesium supplementation was discussed; however, due to the potential for worsening diarrhea, he is advised to defer use at this time. He currently does not take antidiarrheals. Follow-up will be based on the results of labs, imaging, and EGD findings. Note: [employer] speech recognition superintendent power software was used to create portions of this document. Sound-alike and misspelled words, as well as other superintendent power errors may be contained in the documentation. [...] Mallory Mckeon MD; Tom Campbell DO~ Signed [facility] Work Phone: 1(907) 967-199408-22-2025 Consult note Author Josiah Blackwell [facility] Note Date/Time April 01, 2025 12 :35pm [facility] Medical Records Department [address] [place] [address] Pre-Anesthesia Evaluation 04/01/25 1227 MR#: [id number] Acct: [id number] Name: EUNICE VARGAS Rep #:[id number] : 1985 39 From: Josiah Blackwell MD PCP: Dr. 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 Female No 03/30/25 10:02 HX of Motion [...] 04/01/25 12:14 Respiratory Assessment Respiratory Assessment - dimension 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: Respiratory Tract Infection 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 Hx Respiratory Tract Infection No 03/30/25 10:02 STOP Sleep Apnea STOP Sleep Apnea - dimension 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: STOP Sleep Apnea - dimension 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 Hx Hypertension No 03/30/25 10:02 Hx Sleep [...] Tobacco Use History Tobacco Use History - dimension 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: Tobacco Use History - 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 Tobacco Use Smoking Status Never smoker 03/30/25 10:02 Hx Tobacco Use No 03/30/25 10:02 Years Smoking Packs Smoked per Day Smoking Cessation Date was within the last 15 years Hx Smoking Cessation Date Hx Smoking Cessation Counseling Hematologic Medial History Hematologic 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 04/01/25 123 <Electronically signed by Josiah ledesma MD> Date _ Josiah Blackwell MD Cosigner Signature: Date CC: ~ Signed [facility] Work Phone: 1(428) 475-992108-22-2025 Consult note [facility] Medical Records Department [address] [place] [address] Anesthesia Postop Eval I 04/01/25 1323 MR#: [id number] Acct: [id number] Name: EUNICE VARGAS Rep #:[id number] : 1985 39 From: Lul crenshaw CRNA PCP: Dr. Mallory Mckeon MD Status:REG SD C Y Race: C Location: [place] [address] Anesthesia: Postop Eval I Current Vital Signs Temperature: 97.9 F Pulse Rate: 98 Blood Pressure: 125/78 Respiratory Rate: 16 Pulse Ox: 98 Assessment Airway patent: Yes Spontaneous unlabored respirations: Yes nausea: No Vomiting: No Anesthesia Complication: No Fluid Hydration Crystalloid volume administer (ml): 300 Total IV fluid infused: 300 Progress Note Anesthesia document: Postop Eval 1 completed: Yes 04/01/25 1323 row PROFESSOR OF MUSICOLOGY> Date _ Lul Celestin PROFESSOR OF MUSICOLOGY Cosigner Signature: Date CC: ~ Signed [facility]08-22-2025 Procedure note [facility] Medical Records Department [address] [place] [address] EGD Report MR#: [id number] Acct: [id number] Name: EUNICE VARGAS Rep #:[id number] : 1985 39 From: Tom Campbell DO [...] present medications. Procedure Code(s): --- Professional --- 86428, Small intestinal endoscopy, enteroscopy beyond second portion of duodenum, not including ileum; with biopsy, single or multiple CPT copyright 2021 [employer]. All rights reserved. The codes documented in this report are preliminary and upon geophysicist review may be revised to meet current compliance requirements. Tom Campbell DO 04/01/2025 1:23:18 PM This report has been signed electronically. Number of Addenda: 0 Note Initiated On: 04/01/2025 12:54 PM 04/01/25 1323 Date _ Tom Campbell DO Cosigner Signature: Date (if indicated) CC: Dr. Mallory Mckeon MD; Tom Campbell DO ~ Date Dictated: 04/01/25 1254 Date Transcribed: Drawing Instructor: RF Signed [facility]08-22-2025 Procedure note [facility] Medical Records Department [address] [place] [address] Provation Physician Letter MR#: [id number] Acct: [id number] Name: EUNICE VARGAS JOYCE Rep #:[id number] : 1985 39 From: Tom Campbell DO [...] ~ Date Dictated: 04/01/25 1254 Date Transcribed: Drawing Instructor: RF Signed [facility]08-22-2025 History and physical note [facility] Medical Records Department [address] [place] [address] History & Physical Exam 04/01/25 1302 MR#: [id number] Acct: [id number] Name: EUNICE VARGAS Rep #:[id number] : 1985 39 From: Tom Campbell DO PCP: Dr. Mallory Mckeon MD Status:[facility] Location: [place] [address] HPI - General General Date of Admission: [...] - no change in pain with movement [facility] Medical History Wears contact lenses Wears glasses [...] systemic symptoms, the patient has been referred toallergist/transportation associate Dr. Idris Ghosh for review of prior serum allergen testing and management guidance. The role of magnesium supplementation was discussed; however, due to the potential for worsening diarrhea, he is advised to defer use at this time. He currently does not take antidiarrheals. Follow-up will be based on the results of labs, imaging, and EGD findings. Note: [employer] speech recognition superintendent power software was used to create portions of this document. Sound-alike and misspelled words, as well as other superintendent power errors may be contained in the documentation. [...] Mallory Mckeon MD; Tom Friend, DO~ Signed [facility]08-22-2025 [facility] Medical Records Department [address] [place] [address] History Physical Exam 04/01/25 1302 MR#: [id number] Acct: [id number] Name: EUNICE VARGAS Rep #: [id number] : 1985 39 From: Tom Campbell DO PCP: Dr. Mallory Mckeon MD Status:[facility] Location: [place] [address] HPI - General General Date of Admission: [...] - no change in pain with movement [facility] Medical History Wears contact lenses Wears glasses [...] to percussion Rectal Exam: (more content not included)...[facility]08-22-2025 Consult note [facility] Medical Records Department [address] [place] [address] Pre-Anesthesia Evaluation 04/01/25 1227 MR#: [id number] Acct: [id number] Name: EUNICE VARGAS Rep #:[id number] : 1985 39 From: Josiah Blackwell MD PCP: Dr. 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 Female No 03/30/25 10:02 HX of Motion [...] 04/01/25 12:14 Respiratory Assessment Respiratory Assessment - dimension 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: Respiratory Tract Infection 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 Hx Respiratory Tract Infection No 03/30/25 10:02 STOP Sleep Apnea STOP Sleep Apnea - dimension 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: STOP Sleep Apnea - dimension 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 Hx Hypertension No 03/30/25 10:02 Hx Sleep [...] Tobacco Use History Tobacco Use History - 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: Tobacco Use History - 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 Tobacco Use Smoking Status Never smoker 03/30/25 10:02 Hx Tobacco Use No 03/30/25 10:02 Years Smoking Packs Smoked per Day Smoking Cessation Date was within the last 15 years Hx Smoking Cessation Date Hx Smoking Cessation Counseling Hematologic Medial History Hematologic 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: Hematologic Medical Hx - yarn spooler Hx of Blood Transfusion Yes 03/30/25 10:02 [...] confused, unrespo /Reproduction History /Reproductive History - 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 Mallory Mckeon MD Status: REG CL I Study:Abdomen/Pelvis WITH Contrast Date of Ex am: 01/17/25 Exam# [id number] Ordering Dr: Zhane Hollis COSMETIC SALES ADVISOR-C PROCEDURE: ABDOMEN/PELVIS WITH CONTRAST 01/17/2025 REASON FOR [...] No interval change is noted. Reading [facility] CC: PERLA Hollis; Dr. Mallory Mckeon MD ~ Drawing Instructor: Signed [facility]05-14-2025 Evaluation note* Diagnosis Onset Date Resolution Status Admit Date Diarrhea acute December 22, 2024 7:47am Food allergy acute December 22 7:47am LUQ pain acute December 22, 2024 7:47am RLQ abdominal pain acute December 222024 7:47am [facility] Work Phone: 1(629) 667-942305-14-2025 Evaluation note* Diagnosis Onset Date Resolution Status Admit Date Diarrhea acute December 22, 2024 7:47am Food allergy acute December 22 7:47am LUQ pain acute December 22, 2024 7:47am RLQ abdominal pain acute December 222024 7:47am LUQ pain acute April 01, 025 11:51am RLQ abdominal pain acute April 01, 2025 11:51am [facility] Work Phone: 1(535) 737-431301-08-2025 Evaluation note* Diagnosis Onset Date Resolution Status Admit Date Diarrhea acute August 18, 025 8:47am Food allergy acute August 18, 2024 8:47am Hepatomegaly acute August 18, 2024 8:47am [facility] Work Phone: 1(484) 303-406712-05-2024 NoteHNO ID: [id number] Author: MADI BARFIELD MD Service: ? Author [...] pain, or late onset fever. Madi Barfield, [facility]12-05-2024 History of Present illness Narrative* Madi Barfield [...] onsetfever. Madi Barfield MD [facility] Telephone encounter Note * Telephone Encounter - Caroline Chamberlain MA - 04/29/2024 12:38 PM EDT This has been faxed as requested. Caroline Chamberlain MA [facility]09-19-2024 Miscellaneous Notes* Telephone Encounter - Caroline Chamberlain MA - 04/29/2024 12:38 PM EDT This has been faxed as requested. Caroline Chamberlain MA * Telephone Encounter - Jesus Raza APRN.CNP - 04/29/2024 8:48 AM EDT Please fax consult to Dr. Campbell. documented in this [facility] Telephone encounter Note * Telephone Encounter - Caroline Chamberlain MA - 04/29/2024 10:48 AM EDT Referral paperwork has been faxed to Dr. Campbell's office at [phone]. Caroline Chamberlain MA [facility]09-19-2024 Miscellaneous Notes* Telephone Encounter - Caroline Chamberlain MA - 04/29/2024 10:48 AM EDT Referral paperwork has been faxed to Dr. Campbell's office at [phone]. Caroline Chamberlain MA * Telephone Encounter - Jesus Raza APRN.CNP - 04/29/2024 8:47 AM EDT Please fax order to [facility]. * Telephone Encounter - Aydin José LPN - 04/28/2024 7:07 PM EDT Consult GI pending. Aydin José LPN [facility] Telephone encounter Note * Telephone Encounter - Jesus Raza APRN.CNP - 04/29/2024 8:48 AM EDT Please fax consult to Dr. Campbell. [facility]09-19-2024 Telephone encounter Note* Telephone Encounter - Jesus Raza APRN.CNP - 04/29/2024 8:47 AM EDT Please fax order to [facility] Gastro. [facility]09-18-2024 Telephone encounter Note* Telephone Encounter - Aydin José LPN - 04/28/2024 7:07 PM EDT Consult GI pending. Aydin José LPN [facility]09-10-2024 Telephone encounter Note* Telephone Encounter - Vilma Christianson MA - 04/20/2024 3:16 PM EDT Pt notified and voiced understanding. Vilma Christianson MA [facility]09-10-2024 Miscellaneous Notes* Telephone Encounter - [...] PM EDT Pt completed CT Abd/Pelv at [facility]. This has been scanned into pt's chart. Please review and advise. 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 Patient should proceed to ER as he will likely need evaluation by surgery. [facility]09-10-2024 Telephone encounter Note* Telephone Encounter - Caroline Chamberlain MA - 04/20/2024 2:16 PM EDT Pt completed CT Abd/Pelv at [facility]. This has been scanned into pt's chart. Please review and advise. Caroline Chamberlain MA [facility]09-10-2024 History of Present illness Narrative* [...] PROCEDURE) Jesus Raza APRN.CNP documented in this encounterTr[facility]02-19-2024 Miscellaneous Notes* Telephone Encounter - Susana Rachel Cma - 09/29/2023 10:27 AM EST TVShow Timet message sent to patient Susana Rachel Mike * Telephone Encounter - Jesus Raza APRN.CNP - 09/29/2023 10:16 AM EST Please let patient know their labs are normal. documented in this encounterTr[facility]02-16-2024 History of Present illness Narrative* Jesus Raza APRN.CNP - 09/26/2023 9:07 AM EST Chief Complaint Patient presents with: Establish Care HPI Eunice Vargas is a 37 year old male who presents here today for Above Complaints.. Patient presents to [facility]. Past medical history, appointments, medications, [...] reversed. Jesus Raza APRN.ANDREW documented in this encounterTr[facility]12-07-2023 History of Present illness Narrative* Santa Rascon APRN.CNP - 07/17/2023 5:00 PM EST This note was created using [employer]. Subjective Eunice Vargas is a 37 year [...] provided by the patient. No speech language pathologist was used. Cough This is a new [...] Wt 81 kg (178 lb 9.6 oz) BvH794% BMI 28.83 kg/m Physical Exam Vitals and [...] Doxy F/U for persistent symptoms. Santa Rascon APRN.GRANITE POLISHER documented in this encounterTr[facility]ull [facility]09-12-2023 NoteHNO ID: [id number] Author: Rolando Eugene, Service: ? Author Type: Physician Type: Progress Notes Filed: 04/22/2023 11:06 AM Note Text: Rolando Eugene DO [facility] General Orthopedics - Orthopedic Spine Surgeon [address], [facility] [address] [place] [address] Phone: [phone] ([phone]) FAX: [phone] SPINE SURGERY OUTPATIENT CONSULT SERVICE DATE: 04/16/2023 [...] him the most. 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 His lumbar x-rays at [...] much today. PREVIOUS CONSERVATIVE TREATMENTS: Prednisone Flexeril rn care transition x2 PREVIOUS SURGERY: SURGERY #1: L4-5 TLIF with PSF on 07/19/[address] 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 Rolando Eugene DO [facility] Orthopedics - Orthopedic Spine Surgeon [address] [facility] [address] [place] [address] Phone: [phone] ([phone]) FAX: [phone] SPINE SURGERY OUTPATIENT CONSULT SERVICE DATE: 04/16/2023 [...] him the most. 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 His lumbar x-rays at [...] much today. PREVIOUS CONSERVATIVE TREATMENTS: Prednisone Flexeril rn care transition x2 PREVIOUS SURGERY: SURGERY #1: L4-5 TLIF with PSF on 07/19/[address] 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 documented in this encounterTr[facility]09-11-2023 History of Present illness Narrative* [...] 21, 2023 3:14 PM documented in this encounterTrumbull [facility]08-24-2023 Miscellaneous Notes* Telephone Encounter - [...] previous request to have her son and zlrvkaph-xx-xsv be seen by Dr. Coley * Telephone Encounter - Kimberli Carroll - 03/04/2023 9:56 AM EDT Patient calling stating Dr. Coley spoke with his mother Marissa Noble #[id number] stating that Dr. Coley will see patent an dhis Santa Vargas #[id number]. Please advise. documented in this encounterTr[facility]ull [facility]08-08-2023 NoteHNO ID: [id number] Author: Rolando Eugene DO Service: ? Author Type: Physician Type: Progress Notes Filed: 03/18/2023 1:43 PM Note Text: Rolando Eugene DO [facility] General Orthopedics - Orthopedic Spine Surgeon 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 MUSCLE (more content not included)...[facility]08-08-2023 History of Present illness Narrative* Rolando Eugene DO - 03/18/2023 1:00 PM EDT Images from the original note were not included. Rolando Eugene DO [facility] Orthopedics - Orthopedic Spine Surgeon [address] 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 He has tried childcare center administrator without any improvement. Recommend an MRI of [...] DO This note was partially generated using [employer] voice recognition system, and there may be [...] Level: 4 - Moderate documented in this encounterTrumbull [facility]08-03-2023 History of Present illness Narrative* [...] 13, 2023 12:19 PM documented in this encounterTrumbull [facility] Center08-03-2023 History of Present illness Narrative* Jesus Fitzgerald PA - 03/13/2023 12:12 PM EDT This note was created using Conversion Innovationsriter. Subjective Eunice Vargas is a 37 year [...] drainable pouch OR - 2 boxes Coloplast Hardy red flat wafer # 86347 - 1 box Coloplast Hardy red drainable pouches # 66869 - 1 box Ryan small barrier rings # 7805 - 1 tube stomahesive paste # 2650 - 1 box Coloplast Elastic barrier strips # 164830 - 1 bottle stomahesive powder # 31048 - 1 box adhesive remover wipes - [...] he would like to see somebody in [place]. - [facility]ULT [facility] - [...] ER evaluation. KIRSTEN Rowland documented in this encounterTrumbull [facility]06-21-2023 History of Present illness Narrative* [...] 29, 2023 10:55 AM documented in this encounterTrumbull [facility] Center05-03-2023 NoteHNO ID: [id number] Author: Collin Le MD Service: ? Author Type: Physician Type: Progress Notes Filed: 12/11/2022 10:10 AM Note Text: Collin Le M.D. Colon AND Rectal Surgery 1 [facility], [facility] [address] [place] [address] [facility] Eunice Vargas is a 36 year old [...] boxes Coloplast Tacho red flat wafer # 75668 - 1 box Coloplast Tacho red drainable pouches # 46679 - 1 box [place] small barrier rings # 7805 - 1 tube stomahesive paste # 2650 - 1 box Coloplast Elastic barrier strips # 274952 - 1 bottle stomahesive powder # 15319 - 1 box adhesive remover wipes - [...] Mood and affect no (more content not included)...[facility]05-03-2023 History of Present illness Narrative* Collin Le MD - 12/11/2022 9:19 AM EDT Collin Le M.D. Colon & Rectal Surgery [address] [facility], [address] [place] [id number] SUBJECTIVE Eunice Vargas is a 36 year [...] boxes Coloplast Tacho red flat wafer # 77951 - 1 box Coloplast Tahco red drainable pouches # 69468 - 1 box [place] small barrier rings # 7805 - 1 tube stomahesive paste # 2650 - 1 box Coloplast Elastic barrier strips # 130643 - 1 bottle stomahesive powder # 94570 - 1 box adhesive remover wipes - [...] This office note has been created using [employer], a speech recognition software program, and may contain errors including punctuation, grammar, spelling, gender, and inappropriate words or phrases that pertain to the sytem. documented in this encounterTrumbull Regional Medical Center04-28-2023 History of Present illness Narrative* Evy Daigle, RT(R) - 12/06/2022 8:10 AM EDT Radiology Service Progress Note PATIENT NAME: Euince Vargas DATE OF SERVICE: December 06, 2022 [...] 06, 2022 8:03 AM documented in this encounterTrumbull Regional Medical Center04-25-2023 NoteHNO ID: [id number] Author: Jacque Aranda RN Service: Care Management [...] Name Admission (Current) from 11/26/2022 in [place] [facility] Medical Follow-Up Appointment Specialty surgery Provider Name Collin le Additional Instructions call for appointment in 1 week SIGNATURE: Jacque Aranda RN PATIENT NAME: Eunice Vargas DATE: December 03, 2022 TIME: 11:50 AM CONTACT #: [phone] [facility]25[facility]23 NoteHNO ID: [id number] Author: Brenda Manzo DO Service: General Surgery [...] This office note has been created using [employer], a speech recognition software program, and may [...] questions or concerns Mon-Fri 6a-5p please page [phone]. After 5pm and on Weekends and Holidays, please page [phone] if in ICU or [phone] if on RNF. SUBJECTIVE: NAEO.He has been [...] 0659 12/03/22 07 - 12/04/22 0659 Shift 8258-8125 6075-9167 9583-8526 24 Hour Total 6389-6117 5522-3197 7353-2028 24 Hour Total INTAKE PO 720 720 [...] - Pain and Naus (more content not included)...[facility] 12-02-2022 NoteHNO ID: [id number] Author: Jacque Aranda RN Service: Care Management [...] 02, 2022 TIME: 11:55 AM PAGER/CONTACT #: [phone] General Hospital 12-02-2022 NoteHNO ID: [id number] Author: Nicolas Thornton DO Service: General Surgery [...] This office note has been created using [employer], a speech recognition software program, and may [...] questions or concerns Mon-Fri 6a-5p please page [phone]. After 5pm and on Weekends and Holidays, please page [phone] if in ICU or [phone] if on RNF. SUBJECTIVE: NAEO. Patient states [...] 0659 12/02/22 07 - 12/03/22 0659 Shift 3621-0908 8438-9126 9819-8028 24 Hour Total 6956-9417 2682-2593 5650-8664 24 Hour Total INTAKE PO 240 60 300 PO 240 60 300 IV 1000 1000 Volume (mL) (lactated ringers iv infusion) 1000 1000 Shift Total 1000 788 23 2709 OUTPUT Urine Urine Not Saved. 1 x [...] AANDOx3, CN II-XII vanesa (more content not included)...[facility]04-23-2023 NoteHNO ID: [id number] Author: Nicolas Thornton DO Service: General Surgery [...] questions or concerns Mon-Fri 6a-5p please page [phone]. After 5pm and on Weekends and Holidays, please page [phone]. SUBJECTIVE: Made DIET NPO after KUB revealed [...] Date 11/30/22699 - 12/01/2265812/01/22699 - 12/02/2259 Shift 1312-1545 3648-1807 8321-6783 24 Hour Total 7232-2406 5810-8660 1821-2355 24 Hour Total INTAKE IV 1000 1000 [...] patient, resident team and attending Dr Lovell business info consultant for Dr Le SIGNATURE: Nicolas Thornton DO PATIENT NAME: Eunice Vargas DATE: December 01, 2022 TIME: 7:11 AM Pager: see below Elective General Surgery (Green Surgery) Service Pager: For questions or concerns Mon-Fri 6a-5p please page [phone]. After 5pm and on Weekends and Holidays, please page [phone] if in ICU or [phone] if on RNF.[facility]04-22-2023 NoteHNO ID: [id number] Author: Nicolas Thornton DO Service: General Surgery [...] questions or concerns Mon-Fri 6a-5p please page [phone]. After 5pm and on Weekends and Holidays, please page [phone]. SUBJECTIVE: Some nausea but controlled with zofran. [...] 0659 11/30/22 07 - 12/01/22 0659 Shift 5289-4493 6753-7816 0933-4574 24 Hour Total 8268-3640 2809-2839 7017-1102 24 Hour Total INTAKE PO 480 480 [...] patient, resident team and attending Dr Lovell business info consultant for Dr Le SIGNATURE: Nicolas Thornton DO PATIENT NAME: Eunice Vargas DATE: November 30, 2022 TIME: 6:22 AM Pager: see below Elective General Surgery (Green Surgery) Service Pager: For questions or concerns Mon-Fri 6a-5p please page [phone]. After 5pm and on Weekends and Holidays, please page [phone] if in ICU or [phone] if on RNF.[facility]04-21-2023 NoteHNO ID: [id number] Author: Jacque Aranda RN Service: Care Management Author Type: Registered Nurse Type: Care Mgt Initial Assessment Filed: 11/29/2022 2:24 PM Note Text: CARE MANAGEMENT: ASSESSMENT AND DISCHARGE PLAN SERVICE DATE: November 29, 2022 SERVICE TIME: 0950 PCP: No primary care provider on file. Primary Contact: Extended Emergency Contact Information Primary Emergency Contact: PadminilinnetteSanta landrum Address: [address] [place] [address] Mobile Relation: Spouse Secondary Emergency Contact: Marissa Noble Mobile Relation: Mother Admission Status: Inpatient Insurance Provider: MARSHALL GOYO PPO Discharge Planning requested by: Per Department Practice Potential Transition Plans Home Advance Directives Current Advance Directive: Health Care Power of Program Developer In Chart: Yes Up To Date and [...] Patient Goal(s): Be able to go home [place] of Choice Explained: [place] of Choice Given: No Reason Not Given: [...] 29, 2022 TIME: 9:11 AM CONTACT #: [phone] General Hospital04-21-2023 Note HNO ID: [id number] Author: Brenda Manzo DO Service: General Surgery [...] This office note has been created using [employer], a speech recognition software program, and may contain errors including punctuation, grammar, spelling, gender, and inappropriate words or phrases that pertain to the sytem. Elective General Surgery (Green Surgery) Progress Note SERVICE DATE: November 29, 2022 Elective General Surgery (Green Surgery) Service Pager: For questions or concerns Fri-Fri-5p please page [phone]. After 5pm and on Weekends and Holidays, please page [phone]. SUBJECTIVE: Patient reports he feels better today. [...] 0659 11/29/22 0700 - 11/30/22 0659 Shift 9770-5122 1736-6685 9001-7300 24 Hour Total 5135-7874 7323-1980 7772-9004 24 Hour Total INTAKE PO 360 600 [...] and on Weekends and Holidays, please page [phone] if in ICU or [phone] if on RNF.[facility]04-20-2023 NoteHNO ID: [id number] Author: Nicolas Thornton DO Service: General Surgery [...] This office note has been created using [employer], a speech recognition software program, and may contain errors including punctuation, grammar, spelling, gender, and inappropriate words or phrases that pertain to the sytem. Elective General Surgery (Green Surgery) Progress Note SERVICE DATE: November 28, 2022 Elective General Surgery (Green Surgery) Service Pager: For questions or concerns Mon-Fri 6a-5p please page [phone]. After 5pm and on Weekends and Holidays, please page [phone]. SUBJECTIVE: Admits to increased nausea this morning, [...] if in ICU or 2174 if on RNF.[facility]04-19-2023 NoteHNO ID: [id number] Author: Alexander Nolen MD Service: General Surgery [...] This office note has been created using [employer], a speech recognition software program, and may contain errors including punctuation, grammar, spelling, gender, and inappropriate words or phrases that pertain to the sytem. Elective General Surgery (Green Surgery) Progress Note SERVICE DATE: November 27, 2022 Elective General Surgery (Green Surgery) Service Pager: For questions or concerns Mon-Fri 6a-5p please page [phone]. After 5pm and on Weekends and Holidays, please page [phone]. SUBJECTIVE: Patient status post ileostomy reversal. Patient [...] 0659 11/27/22 0700 - 11/28/22 0659 Shift 4511-9442 1615-2118 5388-6374 24 Hour Total 5247-1063 5036-6839 2449-6798 24 Hour Total INTAKE PO 240 240 [...] please page [phone] if in ICU or [phone] if on RNF.[facility]04-18-2023 NoteHNO ID: [id number] Author: Jennifer Cardenas RN Service: ? Author Type: Registered Nurse Type: Nursing Progress Note Filed: 11/26/2022 2:46 PM Note Text: Family visiting at bedside for second time, pt waiting on [facility] [place]04-18-2023 NoteHNO ID: [id number] Author: Jennifer Cardenas RN Service: ? Author Type: Registered Nurse Type: Nursing Progress Note Filed: 11/26/2022 2:45 PM Note Text: Changed dress, edges were pink, minimal bleeding to site. Gauze placed and tegadermFranklin Memorial Hospital04-18-2023 NoteHNO ID: [id number] Author: Jennifer Cardenas RN Service: ? Author Type: Registered Nurse Type: Nursing Progress Note Filed: 11/26/2022 12:02 PM Note Text: Messaged provider to change dressing, waiting for [facility]04-18-2023 NoteHNO ID: [id number] Author: Gulshan Parker APRN.PROFESSOR OF MUSICOLOGY Service: Anesthesiology Author Type: Nurse Shelver Type: Anesthesia Procedure Notes Filed: 11/26/2022 7:48 [...] Imaging Guidance Used: No SIGNATURE: Gulshan Parker APRN.PROFESSOR OF MUSICOLOGY PATIENT NAME: Eunice Vargas DATE: November 26, 2022 TIME: 7:48 AM CSN: [id number] Memorial Hospital04-18-2023 NoteHNO ID: [id number] Author: Gulshan Parker APRN.PROFESSOR OF MUSICOLOGY Service: Anesthesiology Author Type: Nurse Shelver Type: Anesthesia Procedure Notes Filed: 11/26/2022 7:47 AM Note Text: ANESTHESIOLOGY PROCEDURE NOTE Airway General Information Procedure Start Time/Medication Administration: 11/26/2022 7:34 AM Patient location during procedure: OR Timeout Performed Pre-procedure: timeout performed Consent Obtained: Yes Patient identity confirmed: arm band and patient Staffing PROFESSOR OF MUSICOLOGY: Gulshan Parker APRN.PROFESSOR OF MUSICOLOGY Performed by: BLAINE Indications and Patient Condition [...] November 26, 2022 TIME: 7:47 AM CSN: [id number] Memorial Hospital04-13-2023 History and physical note* Kinza Sutton APRN.GRANITE POLISHER - 11/21/2022 10:00 AM EDT HISTORY AND [...] COVID-19 booster vaccine, age 12+ yr, bivalent ([employer]) 07/31/2021 Imm Admin: COVID-19 original vaccine, full [...] boxes Coloplast Tacho red flat wafer # 49414 - 1 box Coloplast Tacho red drainable pouches # 39327 - 1 box Ryan small barrier rings # 7805 - 1 tube stomahesive paste # 2650 - 1 box Coloplast Elastic barrier strips # 762893 - 1 bottle stomahesive powder # 28097 - 1 box adhesive remover wipes - [...] 354 QTC Calculation (Bazett) 408 Calculated P Crisfield 56 Calculated R Crisfield -28 Calculated T Crisfield 20 Impression NORMAL SINUS RHYTHM WITH SINUS ARRHYTHMIA POSSIBLE LEFT ATRIAL ENLARGEMENT INCOMPLETE RIGHT BUNDLE BRANCH BLOCK BORDERLINE ECG WHEN COMPARED WITH ECG OF 21-SEP-2021 15:08, VENT. RATE HAS DECREASED BY 48 BPM Confirmed by MD BERNARD PATRICIA ([id number]) on 04/02/2022 5:38:01 PM No results found for this or any previous visit (from the past 72142 hour(s)). Assessment Patient has the following medical [...] surgeon in epic CBC, BMP ordered per SCRAP WORKER I spent a total of 40 minutes on the date of the service which included preparing to see the patient, [id number] patient care, completing clinical documentation, obtaining and/or [...] 3:18 PM PAGER/CONTACT #: documented in this encounterTrumbull Regional Medical Center04-13-2023 Instructions* Patient Instructions* Kinza Sutton APRN.GRANITE POLISHER - 11/21/2022 9:52 AM EDT PATIENT PREOPERATIVE INSTRUCTIONS Collin Le, * has scheduled you for your procedure at this surgery center: [facility]: [phone], [address] [place] [address] Please read below carefully for your personalized instructions. Date of Surgery:11/26/2022 Arrival Time for Surgery: - To obtain your ARRIVAL TIME for surgery, call your surgeon's office the day before your surgery. - If your surgery is scheduled for Friday, call the Friday before. Your surgeon's corporate scheduler will tell you what time to [...] - Stop Vitamin E, fish oil, Ginko, Taos's Wort, flax seed oil, multivitamins, CBD oil, [...] Advance Directive, please fax a copy to [phone] or email to for it to be [...] remote with youday of surgery Kinza Sutton APRN.GRANITE POLISHER documented in this encounterTrumbull Regional Medical Center03-21-2023 Surgical operation note* Operative Report - Daren Dimas MD - 10/29/2022 9:41 AM EDT OPERATIVE/PROCEDURE REPORT LOG ID: [id number] Surgery/Procedure Date: Incision/Procedure Start Time: 9:46 AM Incision Close/Procedure End Time: 10:13 AM Surgeon(s)/Proceduralist(s) and Card Dealer(s): Surgeon(s) and Role: * Daren Dimas MD [...] 29, 2022 TIME: 10:25 AM PAGER/CONTACT #: [phone] documented in this encounterTrumbull Regional Medical Center03-21-2023 History and physical note * [...] drainable pouch OR - 2 boxes Coloplast Hardy red flat wafer # 91515 - 1 box Coloplast Tacho red drainable pouches # 90507 - 1 box Ryan small barrier rings # 7805 - 1 tube stomahesive paste # 2650 - 1 box Coloplast Elastic barrier strips # 954155 - 1 bottle stomahesive powder # 52836 - 1 box adhesive remover wipes - [...] which included preparing to see the patient, [id number]-[id number] patient care, completing clinical documentation, and performing a medically appropriate examination. Instructions Given to Patient: Patient given verbal preop instructions and voices comprehension and compliance. SIGNATURE: KIRSTEN Ahumada PATIENT NAME: Eunice Vargas DATE: October 29, 2022 TIME: 7:21 AM PAGER/CONTACT #: documented in this encounterTrumbull Regional Medical Center03-14-2023 Miscellaneous Notes* Telephone Encounter - [...] Pleaseadvise. Esmer Flanagan Ma documented in this encounterTrumbull Regional Medical Center03-14-2023 Surgical operation note* Operative Report - Daren Dimas MD - 10/22/2022 10:01 AM EDT OPERATIVE/PROCEDURE REPORT LOG ID: [id number] Surgery/Procedure Date: Incision/Procedure Start Time: 10:12 AM Incision Close/Procedure End Time: 10:21 AM Surgeon(s)/Proceduralist(s) and Card Dealer(s): Surgeon(s) and Role: * Daren Dimas MD [...] 22, 2022 TIME: 10:23 AM PAGER/CONTACT #: [phone] documented in this encounterTrumbull Regional Medical Center02-22-2023 Miscellaneous Notes* Telephone Encounter - Matthew Gucci - 10/02/2022 10:52 AM EST Patient called the office and wanted to know if there was an update about getting his junction sitedilated. I told the patient I would reach out to you and give him a call back with an update. Thankred. Matthewsera Duckworth October 02, 2022 10:53 AM documented in this encounterTrumbull Regional Medical Center02-16-2023 NoteHNO ID: [id number] Author: Jil Penaloza RN Service: ? Author Type: Registered Nurse Type: Nursing Progress Note Filed: 09/26/2022 9:51 AM Note Text: Dr Le spoke with [facility]02-16-2023 Nurse Note* Jil Penaloza RN - 09/26/2022 9:[address] Le spoke with patient documented in this encounterTrumbull Regional Medical Center02-16-2023 Hospital Discharge instructions* Discharge Instr [...] hours. Eat high-fiber foods or use an kcmi-qrd-qggcudk fiber supplement, if needed. Rest and avoid [...] have are getting worse. documented in this encounterTrumbull Regional Medical Center02-16-2023 Surgical operation note* Operative Report - Collin Le MD - 09/26/2022 9:18 AM EST OPERATIVE/PROCEDURE REPORT LOG ID: [id number] Surgery/Procedure Date: Incision/Procedure Start Time: 9:25 AM Incision Close/Procedure End Time: 9:28 AM Surgeon(s)/Proceduralist(s) and Card Dealer(s): Surgeon(s) and Role: * Aric Patino DO [...] 26, 2022 TIME: 9:32 AM PAGER/CONTACT #: [phone] documented in this encounterTrumbull Regional Medical Center02-16-2023 History and physical note * Alix Womack APRN.GRANITE POLISHER - 09/26/2022 8:00 AM EST HISTORY AND [...] boxes Coloplast Tacho red flat wafer # 41894 - 1 box Coloplast Hardy red drainable pouches # 49510 - 1 box Ryan small barrier rings # 7805 - 1 tube stomahesive paste # 2650 - 1 box Coloplast Elastic barrier strips # 253704 - 1 bottle stomahesive powder # 80289 - 1 box adhesive remover wipes - [...] no history of chest pain, palpitations, CHF, NC, cardiac surgery or stents GI: see HPI [...] 8:36 AM PAGER/CONTACT #: documented in this encounterTrumbull Regional Medical Center02-06-2023 Miscellaneous Notes* Allied Health - [...] 16, 2022 10:31 AM documented in this encounterTrumbull Regional Medical Center01-12-2023 History of Present illness Narrative* [...] drainable pouch OR - 2 boxes Coloplast Hardy red flat wafer # 68407 - 1 box Coloplast Tacho red drainable pouches # 68442 - 1 box [place] small barrier rings # 7805 - 1 tube stomahesive paste # 2650 - 1 box Coloplast Elastic barrier strips # 279226 - 1 bottle stomahesive powder # 29351 - 1 box adhesive remover wipes - [...] ICD9: V03.89, ICD10: Z23 (primary diagnosis) - [employer] COVID-19 BIVALENT BOOSTER VACCINE, AGE 12+ YR 2. Screening for lipid disorders - ICD9: V77.91, ICD10: Z13.220 - LIPID PANEL BASIC 3. Wellness examination - ICD9: V70.0, ICD10: Z00.00 - Counseled on healthy diet and regular exercise Cassie Richardson MD documented in this encounterTrumbull Regional Medical Center01-09-2023 NoteHNO ID: [id number] Author: Collin Le MD Service: ? Author Type: Physician Type: Progress Notes Filed: 08/19/2022 12:00 PM Note Text: Collin Le M.D. Colon AND Rectal Surgery [address] [facility], [address] [place] [phone] SUBJECTIVE Eunice Vargas is a 36 year [...] boxes Coloplast Tacho red flat wafer # 41097 - 1 box Coloplast Hardy red drainable pouches # 96724 - 1 box Ryan small barrier rings # 7805 - 1 tube stomahesive paste # 2650 - 1 box Coloplast Elastic barrier strips # 007367 - 1 bottle stomahesive powder # 21307 - 1 box adhesive remover wipes - [...] Psychiatric: Mood and Affect: (more content not included)...[facility] 08-19-2022 History of Present illness Narrative* Collin Le MD - 08/19/2022 10:53 AM EST Images from the original note were not included. Collin Le M.D. Colon & Rectal Surgery [address] [facility], [address] [place] [address] SUBJECTIVE Eunice Vargas is a 36 year [...] drainable pouch OR - 2 boxes Coloplast Hardy red flat wafer # 94518 - 1 box Coloplast Tacho red drainable pouches # 62163 - 1 box Ryan small barrier rings # 7805 - 1 tube stomahesive paste # 2650 - 1 box Coloplast Elastic barrier strips # 238125 - 1 bottle stomahesive powder # 58635 - 1 box adhesive remover wipes - [...] surgery. INFORMED CONSENT Eunice Vargas Medical Record: [id number] Date: 08/19/2022 Procedure: Flexible sigmoidoscopy followed by [...] Vargas's consent. Collin Le MD Dept of [facility] SURGERY DEPARTMENT Follow up: Return for Flexible sigmoidoscopy. Collin Le M.D. Please Note: This office note has been created using [employer], a speech recognition software program, and may contain errors including punctuation, grammar, spelling, gender, and inappropriate words or phrases that pertain to the sytem. documented in this encounterTrumbull Regional Medical Center08-25-2022 History of Present illness Narrative* Asha Bey RN - 04/04/2022 10:14 AM EDT TRANSITIONAL CARE MANAGEMENT (TCM) COMMUNITY MONITORING PROGRAM Provider Action/FYI: Pt has colostomy Spoke with patient, denies pain, denies sob, no nausea/vomiting, stoma output back to normal he states, independent with ADL's SUMMARY: Pt discharged from [facility] on 04/03/22. Admitted for: enteritis Contact made with patient: Yes Hi my name is Asha Bey RN and I am calling from the [facility] on behalf of your PCP,Cassie [...] like to speak with a social work instrument repairer steam plant to help give you support for any [...] I will send your request to a corporate scheduler who will contact and assist you [...] TCM Home Visit Referral Source of Stratification: [facility] Admission Status: Discharged Readmission Risk Score: 11 SAILAJA Score: 2 Program referral criteria met: Does not meet referral criteria Patient does not qualify for High Risk TCM Home Visit program due to: Does not meet referral criteria Patient does not quality for High Risk TCM Home Visit Program due to: Does not meet referral criteria Preferred contact number: [phone] Is patient staying somewhere other than the listed home address: No Dialysis Patient: No documented in this encounterTrumbull Regional Medical Center08-23-2022 History of Past illness Narrative* Problem Noted Date Diagnosed Date Resolved Date Sepsis 04/02/2022 01/17/2023 Bowel obstruction 09/21/2021 09/23/2021 documented as of this encounter (statuses as of 03/13/2023) [address]23-2022 History of Past illness Narrative* Problem Noted Date Diagnosed Date Resolved Date Sepsis 04/02/2022 01/17/2023 Bowel obstruction 09/21/2021 09/23/2021 documented as of this encounter (statuses as of 03/18/2023) [address]23-2022 History of Past illness Narrative* Problem Noted Date Diagnosed Date Resolved Date Sepsis 04/02/2022 01/17/2023 Bowel obstruction 09/21/2021 09/23/2021 documented as of this encounter (statuses as of 03/19/2023) [address]23-2022 History of Past illness Narrative* Problem Noted Date Diagnosed Date Resolved Date Sepsis 04/02/2022 01/17/2023 Bowel obstruction 09/21/2021 09/23/2021 documented as of this encounter (statuses as of 04/04/2023) [facility] illness Narrative* Problem Noted Date Diagnosed Date Resolved Date Sepsis 04/02/2022 01/17/2023 Bowel obstruction 09/21/2021 09/23/2021 documented as of this encounter (statuses as of 04/22/2023) [address]23-2022 History of Past illness Narrative* Problem Noted Date Diagnosed Date Resolved Date Sepsis 04/02/2022 01/17/2023 Bowel obstruction 09/21/2021 09/23/2021 documented as of this encounter (statuses as of 06/15/2023) [address]23-2022 History of Past illness Narrative* Problem Noted Date Diagnosed Date Resolved Date Sepsis 04/02/2022 01/17/2023 Bowel obstruction 09/21/2021 09/23/2021 documented as of this encounter (statuses as of 07/18/2023) [facility] of Past illness Narrative* Problem Noted Date Diagnosed Date Resolved Date Sepsis 04/02/2022 01/17/2023 Bowel obstruction 09/21/2021 09/23/2021 documented as of this encounter (statuses as of 09/26/2023) [facility] of Past illness Narrative* Problem Noted Date Diagnosed Date Resolved Date Sepsis 04/02/2022 01/17/2023 Bowel obstruction 09/21/2021 09/23/2021 documented as of this encounter (statuses as of 09/29/2023) [facility] History of Present illness Narrative* [...] with extended right hemicolectomy at [facility]. He had a prolonged ileus after this and continued to have problems postoperatively. Followed with surgeon Dr. Nelson at [facility]. He had a colonoscopy 10 days [...] Non-smoker, has 4 drinks/week. 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 No FHx of CRC Great uncle on [...] boxes Coloplast Tacho red flat wafer # 66070 - 1 box Coloplast Hardy red drainable pouches # 47284 - 1 box [place] small barrier rings # 7805 - 1 tube stomahesive paste # 2650 - 1 box Coloplast Elastic barrier strips # 489079 - 1 bottle stomahesive powder # 78740 - 1 box adhesive remover wipes - [...] care of this patient. Simone Becerra MD [facility] FACG documented in this encounterTrumbull Regional Medical Center06-03-2022 Miscellaneous Notes* Telephone Encounter - Leonie Alejandre RN - 01/11/2022 10:50 AM EDT [facility] TECHNICIAN ONE MONTH FOLLOW UP PHONE CALL PHONE [...] RN DATE: 01/11/2022 TIME: 10:50 AM CONTACT #:[phone] documented in this encounterTr[facility]22 Miscellaneous Notes* SN Routine - Lacey Fortune LPN - 01/08/2022 10:05 AM EDT SITUATION: Intermediate routine visit completed today. No one else [...] discharged from homecare. SN placed TC to [facility] to inquire when supplies order was sent to and [facility] was unable to locate any orders for [...] at next SN visit documented in this encounterTrumbull [facility]05-24-2022 Miscellaneous Notes* SN Routine - Maile Caruso RN - 01/01/2022 12:04 PM EDT SITUATION: Intermediate routine visit completed today. spouse also present [...] (be specific): agency discharge documented in this encounterTrumbull [facility]05-23-2022 History of Present illness Narrative* Collin Le MD - 12/31/2021 9:14 AM EDT Images from the original note were not included. Collin Le M.D. Colon & Rectal Surgery [address] [facility], [address] [place] [id number] SUBJECTIVE Eunice Vargas is a 36 year old White male status post completion of abdominal colectomy with diverting loop ileostomy. HPI The patient was referred by Cassie Richardson (Abdiel) Uriah Hartman [facility] [id number] my recommendation will be sent back. He [...] drainable pouch OR - 2 boxes Coloplast Hardy red flat wafer # [id number] - 1 box Coloplast Tacho red drainable pouches # 68998 - 1 box [place] small barrier rings # 7805 - 1 tube stomahesive paste # 2650 - 1 box Coloplast Elastic barrier strips # [id number] - 1 bottle stomahesive powder # 95993 - 1 box adhesive remover wipes - [...] This office note has been created using [employer], a speech recognition software program, and may contain errors including punctuation, grammar, spelling, gender, and inappropriate words or phrases that pertain to the sytem. documented in this encounterTrumbull [facility] Center05-20-2022 Miscellaneous Notes* SN PRN - Maile Caruso RN - 12/28/2021 9:00 AM EDT SITUATION: Intermediate PRN visit completed today. No caregiver present [...] information to order supplies documented in this encounterTrumbull [facility]05-19-2022 Miscellaneous Notes* SN Routine - Maile Caruso RN - 12/27/2021 12:26 PM EDT SITUATION: Intermediate routine visit completed today. spouse also present [...] focus on (be specific): documented in this encounterTrumbull [facility]05-16-2022 Miscellaneous Notes* SN Routine - Maile Caruso RN - 12/24/2021 10:56 AM EDT SITUATION: Intermediate routine visit completed today. spouse also present [...] focus on (be specific): documented in this encounterTrumbull [facility]05-13-2022 Miscellaneous Notes* SN SOC - Anna Garber RN - 12/21/2021 8:09 AM EDT SITUATION: Intermediate SOC visit completed today. patient reports the following: Allergies--reviewed Medications--full medication reconciliation completed and reviewed current medications Falls--None DME-Reviewed and added to chart BACKGROUND: Discharged/Referral from [facility] on 12/19/21 following treatment for Colonic [...] have pt demonstrate it. documented in this encounterTrumbull [facility] Center05-12-2022 History of Present illness Narrative* Kylee Owen RN - 12/20/2021 4:39 PM EDT TRANSITIONAL CARE MANAGEMENT (TCM) COMMUNITY MONITORING PROGRAM Provider Action/FYI: This RN relaying following message/response from Dr. Le to patient , with patient verbalizing understanding: Thank you, he is done with the antibiotics and does not need to be on the imodium at this time. Collin eL MD December 20, 2021 3:38 PM Kylee Owen RN, BSN Care Coordination team * Kylee Owen RN - 12/20/2021 2:48 PM EDT TRANSITIONAL CARE MANAGEMENT (TCM) COMMUNITY MONITORING PROGRAM Provider Action/FYI: TCM [facility] discharge 5-11-22- initial outreach Discharge home with [facility] through [facility] for new ostomy. [facility] shows appointment 12-21-21 at 11 AM, however, [...] RN and I am calling from the [facility] on behalf of your PCP, [...] like to speak with a social work instrument repairer steam plant to help give you support for any [...] I will send your request to a corporate scheduler who will contact and assist you [...] TCM Home Visit Referral Source of Stratification: [facility] Admission Status: Discharged Readmission Risk [...] MANAGEMENT (TCM) COMMUNITY MONITORING PROGRAM Provider Action/FYI: [facility] discharge 12-19-21- initial outreach - Unable to reach or leave message as mailbox full. Discharge home with [facility] through [facility] for new ostomy SUMMARY: Pt discharged from on 12-19-21. Admitted for: Colonic inertia. Developed nausea, vomiting post op for elective surgery for ostomy. Contact made with patient: No - next outreach attempt will be on next business day Outreach ended Kylee Owen RN, BSN Care Coordination team documented in this encounterTrumbull Regional Medical Center04-20-2022 History and physical note * Natalie Shaw APRN.GRANITE POLISHER - 11/28/2021 1:40 PM EDT HISTORY AND [...] requiring medication, no history of angina, CHF, NC, cardiac surgery or stents. Denies rest pain, [...] or any previous visit (from the past [id number] hour(s)). Assessment No problem-specific Assessment & Plan [...] [facility] or Procedure: Answer: [facility] metroNIDAZOLE (FLAGYL) 500 mg tablet neomycin 500 mg tablet promethazine (PHENERGAN) 25 mg tablet Ordered per surgeon in epic: Hemoglobin A1c, COVID Ordered per SCRAP WORKER in epic: BMP, CBC, type and screen [...] [facility] or Procedure: Answer: [facility] Anesthetic: general Instructions Given to Patient: Instructions located in the after visit summary. Patient given verbal and written preop instructions and voices comprehension and compliance. SIGNATURE: Natalie Shaw APRN.CNP PATIENT NAME: Eunice Vargas DATE: November 27, 2021 TIME: 10:54 AM PAGER/CONTACT #: documented in this encounterTrumbull Regional Medical Center04-20-2022 Instructions* Patient Instructions* Natalie Shaw APRN.CNP - 11/28/2021 1:40 PM EDT PATIENT PREOPERATIVE INSTRUCTIONS Collin Le, * has scheduled you for your procedure at this surgery center: [facility]: [phone], [address] [place] [id number] Please read below carefully for your personalized [...] - Stop Vitamin E, fish oil, Ginko, Taos's Wort, flax seed oil, multivitamins, CBD oil, [...] surgery. - YOU MUST HAVE A RESPONSIBLE SIX PACK PACKER TAKE YOU HOME. A THERAPIST, CAB OR UBER SIX PACK PACKER CANNOT BE MADEA RESPONSIBLE SIX PACK PACKER. - We recommend that a responsible person [...] in our PACU area unless a minor, concert manager or a special circumstance. Each patient isallowed [...] surgery. Natalie Shaw APRN.ANDREW documented in this encounterTrumbull [facility] Medical Center04-06-2022 Instructions* Patient Instructions* Collin Le MD - 11/14/2021 12:00 PM EDT documented in this encounterTrumbull Regional Medical Center04-06-2022 History of Present illness Narrative* Collin Le MD - 11/14/2021 10:48 AM EDT Images from the original note were not included. Collin Le M.D. Colon & Rectal Surgery [address] [facility], [address] [place] [address] SUBJECTIVE Eunice Vargas is a 35 year old White male with colonic inertia HPI The patient was referred by Cassie Hsu) Uriah Hartman [facility] [id number] my recommendation will be sent back. His [...] This office note has been created using [employer], a speech recognition software program, and may contain errors including punctuation, grammar, spelling, gender, and inappropriate words or phrases that pertain to the sytem. documented in this encounterTrumbull [facility] Medical Center02-11-2022 History of Past illness Narrative* Problem Noted Date Resolved Date Bowel obstruction 09/21/2021 09/23/2021 documented as of this encounter (statuses as of 11/14/2021) [facility] of Past illness Narrative* Problem Noted Date Resolved Date Bowel obstruction 09/21/2021 09/23/2021 documented as of this encounter (statuses as of 11/28/2021) [address]11-[address]22 History of Past illness Narrative* Problem Noted Date Resolved Date Bowel obstruction 09/21/2021 09/23/2021 documented as of this encounter (statuses as of 11/28/2021) [address]11-2022 History of Past illness Narrative* Problem Noted Date Resolved Date Bowel obstruction 09/21/2021 09/23/2021 documented as of this encounter (statuses as of 12/20/2021) [address]11-2022 History of Past illness Narrative* Problem Noted Date Resolved Date Bowel obstruction 09/21/2021 09/23/2021 documented as of this encounter (statuses as of 12/21/2021) [address]11-2022 History of Past illness Narrative* Problem Noted Date Resolved Date Bowel obstruction 09/21/2021 09/23/2021 documented as of this encounter (statuses as of 12/25/2021) [address]11-2022 History of Past illness Narrative* Problem Noted Date Resolved Date Bowel obstruction 09/21/2021 09/23/2021 documented as of this encounter (statuses as of 12/28/2021) [address]11-2022 History of Past illness Narrative* Problem Noted Date Resolved Date Bowel obstruction 09/21/2021 09/23/2021 documented as of this encounter (statuses as of 12/29/2021) [address]11-2022 History of Past illness Narrative* Problem Noted Date Resolved Date Bowel obstruction 09/21/2021 09/23/2021 documented as of this encounter (statuses as of 12/31/2021) [address]11-2022 History of Past illness Narrative* Problem Noted Date Resolved Date Bowel obstruction 09/21/2021 09/23/2021 documented as of this encounter (statuses as of 01/02/2022) [address]11-2022 History of Past illness Narrative* Problem Noted Date Resolved Date Bowel obstruction 09/21/2021 09/23/2021 documented as of this encounter (statuses as of 01/08/2022) [address]11-2022 History of Past illness Narrative* Problem Noted Date Resolved Date Bowel obstruction 09/21/2021 09/23/2021 documented as of this encounter (statuses as of 01/11/2022) [address]11-2022 History of Past illness Narrative* Problem Noted Date Resolved Date Bowel obstruction 09/21/2021 09/23/2021 documented as of this encounter (statuses as of 03/07/2022) [address]11-2022 History of Past illness Narrative* Problem Noted Date Resolved Date Bowel obstruction 09/21/2021 09/23/2021 documented as of this encounter (statuses as of 04/04/2022) [address]-2022 History of Past illness Narrative* Problem Noted Date Resolved Date Bowel obstruction 09/21/2021 09/23/2021 documented as of this encounter (statuses as of 08/19/2022) [address]11-[address]22 History of Past illness Narrative* Problem Noted Date Resolved Date Bowel obstruction 09/21/2021 09/23/2021 documented as of this encounter (statuses as of 08/26/2022) [address]11[address]22 History of Past illness Narrative* Problem Noted Date Resolved Date Bowel obstruction 09/21/2021 09/23/2021 documented as of this encounter (statuses as of 09/06/2022) [address]11-2022 History of Past illness Narrative* Problem Noted Date Resolved Date Bowel obstruction 09/21/2021 09/23/2021 documented as of this encounter (statuses as of 09/06/2022) [address]22 History of Past illness Narrative* Problem Noted Date Resolved Date Bowel obstruction 09/21/2021 09/23/2021 documented as of this encounter (statuses as of 09/17/2022) [address]11-2022 History of Past illness Narrative* Problem Noted Date Resolved Date Bowel obstruction 09/21/2021 09/23/2021 documented as of this encounter (statuses as of 09/26/2022) [address]11-[address]22 History of Past illness Narrative* Problem Noted Date Resolved Date Bowel obstruction 09/21/2021 09/23/2021 documented as of this encounter (statuses as of 09/27/2022) [address]11-[address]22 History of Past illness Narrative* Problem Noted Date Resolved Date Bowel obstruction 09/21/2021 09/23/2021 documented as of this encounter (statuses as of 10/03/2022) [address]11-[address]22 History of Past illness Narrative* Problem Noted Date Resolved Date Bowel obstruction 09/21/2021 09/23/2021 documented as of this encounter (statuses as of 10/16/2022) [address]11-[address]22 History of Past illness Narrative* Problem Noted Date Resolved Date Bowel obstruction 09/21/2021 09/23/2021 documented as of this encounter (statuses as of 10/22/2022) [address]22 History of Past illness Narrative* Problem Noted Date Resolved Date Bowel obstruction 09/21/2021 09/23/2021 documented as of this encounter (statuses as of 10/23/2022) [address]22 History of Past illness Narrative* Problem Noted Date Resolved Date Bowel obstruction 09/21/2021 09/23/2021 documented as of this encounter (statuses as of 10/30/2022) [address]11-2022 History of Past illness Narrative* Problem Noted Date Resolved Date Bowel obstruction 09/21/2021 09/23/2021 documented as of this encounter (statuses as of 11/22/2022) [facility] Narrative* Problem Noted Date Resolved Date Bowel obstruction 09/21/2021 09/23/2021 documented as of this encounter (statuses as of 12/11/2022) [facility] of Present illness Narrative* [...] 16, 2021 8:14 AM documented in this encounterTrumbull [facility] Center11-04-2021 History of Present illness Narrative* [...] 14, 2021 9:35 AM documented in this encounterTrumbull [facility] Center11-02-2021 History of Present illness Narrative* Evy aDigle RT(R) - 06/12/2021 10:20 AM EDT Radiology [...] 12, 2021 10:12 AM [facility]* Diagnosis Colonic inertia- Primary Other functional disorders of intestine Ventral hernia without obstruction or gangrene Ventral hernia, unspecified, without mention of obstruction or gangrene Colonic inertia Other functional disorders of intestine [facility] Diagnosis Preop examination- Primary Preoperative examination, unspecified Colonic inertia Other functional disorders of intestine Colonic inertia Other functional disorders of intestine [facility] Diagnosis Other specified counseling- Primary Colonic inertia Other functional disorders of intestine [facility] Diagnosis Colonic inertia- Primary Other functional disorders of intestine Ventral hernia without obstruction or gangrene Ventral hernia, unspecified, without mention of obstruction or gangrene [facility]* Diagnosis Colonic inertia Other functional disorders of intestine [facility] encounter [facility]* Diagnosis Colonic inertia- Primary Other functional disorders of intestine [facility]* Diagnosis Encounter for immunization- Primary Need for other specified prophylactic vaccination against single bacterial disease Screening for lipid disorders Wellness examination documented in this encounter [facility] note* Diagnosis Colonic inertia- Primary Other functional disorders of intestine Colonic inertia Other functional disorders of intestine [facility] Diagnosis Colonic inertia- Primary Other functional disorders of intestine Colonic inertia Other functional disorders of intestine [facility] Diagnosis Colonic inertia Other functional disorders of intestine Colonic inertia Other functional disorders of intestine [facility] Diagnosis Rectal stricture- Primary Stenosis of rectum and anus Colonic inertia Other functional disorders of intestine [facility] Diagnosis Colonic inertia Other functional disorders of intestine Colonic inertia Other functional disorders of intestine [facility] Diagnosis Rectal stenosis- Primary Stenosis of rectum and anus [facility] Diagnosis Rectal stenosis Stenosis of rectum and anus documented in this encounter [facility] note* Diagnosis Rectal stricture Stenosis of rectum and anus documented in this encounter [facility] note* Diagnosis Pre-op exam- Primary Preoperative examination, unspecified Colonic inertia Other functional disorders of intestine Colonic inertia Other functional disorders of intestine documented in this encounter [facility] note* Diagnosis Colonic inertia- Primary Other functional disorders of intestine documented in this encounter [facility] note* Diagnosis Acute left-sided low back pain with left-sided sciatica- Primary Lumbar radiculopathy- Primary Thoracic or lumbosacral neuritis or radiculitis, unspecified documented in this encounter [facility] note* Diagnosis Lumbar radiculopathy- Primary Thoracic or lumbosacral neuritis or radiculitis, unspecified Spinal stenosis of lumbar region without neurogenic claudication Spinal stenosis, lumbar region, without neurogenic claudication [facility] Diagnosis Lumbar radiculopathy Thoracic or lumbosacral neuritis or radiculitis, unspecified documented in this encounter [facility] note* Diagnosis Lumbar radiculopathy- Primary Thoracic or lumbosacral neuritis or radiculitis, unspecified documented in this encounter [facility] note* Diagnosis Spinal stenosis of lumbar region without neurogenic claudication Spinal stenosis, lumbar region, without neurogenic claudication documented in this encounter [facility] note* Diagnosis Acute cough- Primary documented in this encounter [facility] note* Diagnosis Screening for lipid disorders- Primary Wellness examination Screening for diabetes mellitus Colonic inertia Other functional disorders of intestine documented in this encounter [facility] note* Diagnosis Pre-op exam- Primary Preoperative examination, unspecified Colonic inertia Other functional disorders of intestine Colon stricture (HCC) Unspecified intestinal obstruction Pre-op exam Preoperative examination, unspecified Nausea- Primary Nausea alone Colonic inertia Other functional disorders of intestine Ileus following gastrointestinal surgery (HCC) Other digestive system complications Generalized abdominal pain Abdominal pain, generalized Colon stricture (HCC) Unspecified intestinal obstruction documented in this encounter [facility] note* Diagnosis Pre-op exam- Primary Preoperative examination, unspecified Colonic inertia Other functional disorders of intestine Colon stricture (HCC) Unspecified intestinal obstruction Pre-op exam Preoperative examination, unspecified Acute cough documented in this encounter [facility] note* Diagnosis Pre-op exam- Primary Preoperative examination, unspecified Colonic inertia Other functional disorders of intestine Colon stricture (HCC) Unspecified intestinal obstruction Pre-op exam Preoperative examination, unspecified Acute left-sided low back pain with left-sided sciatica documented in this encounter [facility] note* Diagnosis Pre-op exam- Primary Preoperative examination, unspecified Colonic inertia Other functional disorders of intestine Colon stricture (HCC) Unspecified intestinal obstruction Pre-op exam Preoperative examination, unspecified Colonic inertia- Primary Other functional disorders of intestine Ileus following gastrointestinal surgery (HCC) Other digestive system complications documented in this encounter [facility] note* Diagnosis Pre-op exam- Primary Preoperative examination, unspecified Colonic inertia Other functional disorders of intestine Colon stricture (HCC) Unspecified intestinal obstruction Pre-op exam Preoperative examination, unspecified URI, acute Acute upper respiratory infections of unspecified site documented in this encounter [facility] note* Diagnosis Pre-op exam- Primary Preoperative examination, unspecified Colonic inertia Other functional disorders of intestine Status post reversal of ileostomy Colon stricture (HCC) Unspecified intestinal obstruction Pre-op exam Preoperative examination, unspecified [facility]* Diagnosis Volvulus (HCC) Volvulus documented in this encounter [facility] note* Diagnosis Pre-op exam- Primary Preoperative examination, unspecified Colonic inertia Other functional disorders of intestine Colon stricture (HCC) Unspecified intestinal obstruction Pre-op exam Preoperative examination, unspecified URI, acute- Primary Acute upper respiratory infections of unspecified site documented in this encounter [facility] note* Diagnosis Onset Date Resolution Status Admit Date Diarrhea acute December 22, 2024 7:47am Food allergy acute December 22 7:47am LUQ pain acute December 22, 2024 7:47am RLQ abdominal pain acute December 222024 7:47am [facility] Work Phone: Evaluation note* Diagnosis Pre-op exam- Primary Preoperative examination, unspecified Colonic inertia Other functional disorders of intestine Colon stricture (HCC) Unspecified intestinal obstruction Pre-op exam Preoperative examination, unspecified Viral URI with cough- Primary Acute upper respiratory infections of unspecified site SERVIN (dyspnea on exertion) Other dyspnea and respiratory abnormality Diarrhea, unspecified type documented in [facility] encounter [facility] Discharge instructionsAmbulatory Orders* Allergy & Immunology Location: None Selected [facility] Work Phone: Patient's home Plan of care note* Visit Details Visit Type -SN ROUTINE Discipline -Intermediate Problems Problem Description Start Date Status Goals [...] plenty of water [facility]* Visit Details Visit Type -SN PRN VISIT Discipline -Intermediate Problems Problem Description Start Date Status Goals [...] water documented in this encounter [facility]'s home Plan of care note* Visit Details Visit Type -SN ROUTINE Discipline -Intermediate Problems Problem Description Start Date Status Goals [...] plenty of water [facility]* Visit Details Visit Type -SN ROUTINE Discipline -Intermediate Problems Problem Description Start Date Status Goals [...] and ostomy precautions. documented in this encounter [facility] for referral (narrative)* Diagnostic Procedure Only (Routine) - Pending Review Specialty Diagnoses / Procedures Referred By Contac t Referred To Contact XR IMAGING Diagnoses Colonic inertia Procedures XR COLON SINGLE CONTRAST RADIOLOGIC EXAM COLON SINGLE CONTRAST STUDY Collin Le MD [address] [address] Xr Imaging Referral ID Status Reason Start Date Expiration Date Visits Requested Visits Authorized [id number] Pending Review Auto-Generat ed Referral 08/19/2022 09/18/2023 1 1 [facility] for referral (narrative)* Outpatient Procedure (Routine) - Pending Review Specialty Diagnoses / [facility] Diagnoses Colonic inertia Procedures SIGMOIDOSCOPY SIGMOIDOSCOPY FLX DX W/COLLJ SPEC BR/WA IF PFRMD Collin Le MD [address] [address] [facility] [address] [place] [address] Referral ID Status Reason Start Date Expiration Date Visits Requested Visits Authorized [id number] Pending Review Auto-Generat ed Referral 09/06/2022 09/06/2023 1 1 [facility] for referral (narrative)* Diagnostic Procedure Only (Routine) - Closed Specialty Diagnoses / Procedures Referred By Contac t Referred To Contact XR IMAGING Diagnoses Colonic inertia Procedures XR COLON SINGLE CONTRAST RADIOLOGIC EXAM COLON SINGLE CONTRAST STUDY Collin Le MD [address] [address] Xr Imaging Referral ID Status Reason Start Date Expiration Date V isits Requested Visits Authorized [id number] Closed Auto-Generate d Referral 08/19/2022 09/18/2023 1 1 [facility] for referral (narrative)* Outpatient Procedure (Routine) - Pending Review Specialty Diagnoses / Procedures Referred By Contac t Referred To Contact [facility] Diagnoses Rectal stricture Procedures SIGMOIDOSCOPY SIGMOIDOSCOPY FLX DX W/COLLJ SPEC BR/WA IF Daren Coronado MD [address] [place] [address] [address] Referral ID Status Reason Start Date Expiration Date Visits Requested Visits Authorized [id number] Pending Review Auto-Generat ed Referral 09/26/2022 09/26/2023 1 1 [facility] for referral (narrative)* Outpatient Procedure (Routine) - Closed Specialty Diagnoses / Procedures Referred By Contac t Referred To Contact Diagnoses Colonic inertia Procedures SIGMOIDOSCOPY SIGMOIDOSCOPY FLX DX W/COLLJ SPEC BR/WA IF Collin Moreira MD 1 [facility] [address] [place] [address] [place] [address] Referral ID Status Reason Start Date Expiration Date V isits Requested Visits Authorized [id number] Closed Auto-Generate d Referral 09/06/2022 09/06/2023 1 1 [facility] for referral (narrative)* Outpatient Procedure (Routine) - Authorized Specialty Diagnoses / Procedures Referred By Contac t Referred To Contact [facility] Diagnoses Rectal stenosis Procedures SIGMOIDOSCOPY SIGMOIDOSCOPY FLX DX W/COLLJ SPEC BR/WA IF Daren Coronado MD [address] [facility] [place] [address] [address] Referral ID Status Reason Start Date Expiration Date Visits Requested Visits Authorized [id number] Authorized Auto-Generat ed Referral 10/16/2022 10/17/2023 1 1 [facility] for referral (narrative)* Outpatient Procedure (Routine) - Closed Specialty Diagnoses / Procedures Referred By Contac t Referred To Contact [facility] Diagnoses Rectal stenosis Procedures SIGMOIDOSCOPY SIGMOIDOSCOPY FLX DX W/COLLJ SPEC BR/WA IF Daren Coronado MD [address] [facility] [place] [address] [facility] [address] [place] [id number] Referral ID Status Reason Start Date Expiration Date V isits Requested Visits Authorized [id number] Closed Auto-Generate d Referral 10/16/2022 10/17/2023 1 1 [facility] for referral (narrative)* Outpatient Procedure (Routine) - Closed Specialty Diagnoses / [facility] Diagnoses Rectal stricture Procedures SIGMOIDOSCOPY SIGMOIDOSCOPY FLX DX W/COLLJ SPEC BR/WA IF Daren Coronado MD [address] [facility] [place] [address] [address] Referral ID Status Reason Start Date Expiration Date V isits Requested Visits Authorized [id number] Closed Auto-Generate d Referral 10/23/2022 10/24/2023 1 1 [facility] for referral (narrative)* Diagnostic Procedure Only (Urgent) - Closed Specialty Diagnoses / Procedures [facility] To Contact XR IMAGING Diagnoses Acute left-sided low back pain with left-sided sciatica Procedures XR LUMBAR GENERAL 3V AP/LAT/L5-S1 RADEX SPINE LUMBOSACRAL 2/3 VIEWS [facility] [address] [place] [address] [place] [id number] Referral ID Status Reason Start Date Expiration Date V isits Requested Visits Authorized [id number] Closed Auto-Generate d Referral 03/13/2023 04/11/2024 1 1 [facility] for referral (narrative)* Diagnostic Procedure Only (Routine) - Closed Specialty Diagnoses / Procedures Referred By Contac t Referred To Contact XR IMAGING Diagnoses Status post reversal of ileostomy Procedures XR ABDOMEN 3V KUB W/OBLIQUES RADIOLOGIC EXAM ABDOMEN 3+ VIEWS Collin Le MD [address] [address] [place] [address] Referral ID Status Reason Start Date Expiration Date V isits Requested Visits Authorized [id number] Closed Auto-Generate d Referral 12/06/2022 01/02/2024 1 1 T [facility] for referral (narrative)* Diagnostic Procedure Only (Routine) - Closed Specialty Diagnoses / Procedures Referred By Contac t Referred To Contact XR IMAGING Diagnoses Volvulus (HCC) Procedures XR COLONIC TRANSIT IMAGE 1 X-RAY ABD SINGLE AP VIEW Monroe Perry MD [address] [place] [address] [place] [address] Referral ID Status Reason Start Date Expiration Date V isits Requested Visits Authorized [id number] Closed Auto-Generate d Referral 06/07/2021 07/07/2022 99 99 [facility] for referral (narrative)* Diagnostic Procedure Only (Routine) - Closed Specialty Diagnoses / Procedures Referred By Contac t Referred To Contact XR IMAGING Diagnoses Volvulus (HCC) Procedures XR COLONIC TRANSIT IMAGE 2 X-RAY ABD SINGLE AP VIEW Monroe Perry MD [address] [place] [id number] [place] [address] Referral ID Status Reason Start Date Expiration Date V isits Requested Visits Authorized [id number] Closed Auto-Generate d Referral 06/07/2021 07/07/2022 1 1 [facility] for referral (narrative)* Diagnostic Procedure Only (Routine) - Closed Specialty Diagnoses / Procedures Referred By Contac t Referred To Contact XR IMAGING Diagnoses Volvulus (HCC) Procedures XR COLONIC TRANSIT IMAGE 3 X-RAY ABD SINGLE AP VIEW Monroe Perry MD [address] [place] [address] [facility] [place] [address] Referral ID Status Reason Start Date Expiration Date V isits Requested Visits Authorized [id number] Closed Auto-Generate d Referral 06/07/2021 07/07/2022 1 1 [facility] for referral (narrative)No reason for referral information availableWWadsworth[facility] Work Phone: Reason for visit Narrative* Diagnostic Procedure Only (Routine) - Closed Specialty Diagnoses / Procedures Referred By Contac t Referred To Contact XR IMAGING Diagnoses Colonic inertia Procedures XR COLON SINGLE CONTRAST RADIOLOGIC EXAM COLON SINGLE CONTRAST STUDY Collin Le MD 1 [facility] [address] [place] [address] Xr Imaging Referral ID Status Reason Start Date Expiration Date V isits Requested Visits Authorized [id number] Closed Auto-Generate d Referral 08/19/2022 09/18/2023 1 1 [facility] for visit Narrative* Outpatient Procedure (Routine) - Closed Specialty Diagnoses / Procedures Referred By Contac t Referred To Contact Diagnoses Colonic inertia Procedures SIGMOIDOSCOPY SIGMOIDOSCOPY FLX DX W/COLLJ SPEC BR/WA IF PFRMD Collin Le MD 1 [facility] [address] [place] [address] [facility] [address] [place] [address] Referral ID Status Reason Start Date Expiration Date V isits Requested Visits Authorized [id number] Closed Auto-Generate d Referral 09/06/2022 09/06/2023 1 1 [facility] for visit Narrative* Outpatient Procedure (Routine) - Closed Specialty Diagnoses / Procedures Referred By Contac t Referred To Contact [facility] Diagnoses Rectal stenosis Procedures SIGMOIDOSCOPY SIGMOIDOSCOPY FLX DX W/COLLJ SPEC BR/WA IF Daren Coronado MD [address] [place] [address] [address] Referral ID Status Reason Start Date Expiration Date V isits Requested Visits Authorized [id number] Closed Auto-Generate d Referral 10/16/2022 10/17/2023 1 1 [facility] for visit Narrative* Outpatient Procedure (Routine) - Closed Specialty Diagnoses / Procedures Referred By Contac t Referred To Contact [facility] Diagnoses Rectal stricture Procedures SIGMOIDOSCOPY SIGMOIDOSCOPY FLX DX W/COLLJ SPEC BR/WA IF Daren Coronado MD [address] [place] [address] [address] Referral ID Status Reason Start Date Expiration Date V isits Requested Visits Authorized [id number] Closed Auto-Generate d Referral 10/23/2022 10/24/2023 1 1 [facility] for visit Narrative* Diagnostic Procedure Only (Routine) - Closed Specialty Diagnoses / Procedures Referred By Contac t Referred To Contact XR IMAGING Diagnoses Lumbar radiculopathy Procedures XR LUMBAR LIMITED 2V FLEX/EXT RADEX SPINE LUMBOSACRAL 2/3 VIEWS Rolando Eugene, [address] [place] [address] Xr Imaging Referral ID Status Reason Start Date Expiration Date V isits Requested Visits Authorized [id number] Closed Auto-Generate d Referral 03/13/2023 04/11/2024 1 1 [facility] for visit Narrative* Diagnostic Procedure Only (Urgent) - Closed Specialty Diagnoses / Procedures Referred By Contac t Referred To Contact XR IMAGING Diagnoses Acute left-sided low back pain with left-sided sciatica Procedures XR LUMBAR GENERAL 3V AP/LAT/L5-S1 RADEX SPINE LUMBOSACRAL 2/3 VIEWS [facility] [address] [place] [address] [place] [id number] Referral ID Status Reason Start Date Expiration Date V isits Requested Visits Authorized [id number] Closed Auto-Generate d Referral 03/13/2023 04/11/2024 1 1 [facility] for visit Narrative* Diagnostic Procedure Only (Routine) - Closed Specialty Diagnoses / Procedures Referred By Contac t Referred To Contact XR IMAGING Diagnoses Status post reversal of ileostomy Procedures XR ABDOMEN 3V KUB W/OBLIQUES RADIOLOGIC EXAM ABDOMEN 3+ VIEWS Collin Le MD [address] [address] [place] [id number] Referral ID Status Reason Start Date Expiration Date V isits Requested Visits Authorized [id number] Closed Auto-Generate d Referral 12/06/2022 01/02/2024 1 1 [facility] for visit Narrative* Diagnostic Procedure Only (Routine) - Closed Specialty Diagnoses / Procedures Referred By Contac t Referred To Contact XR IMAGING Diagnoses Volvulus (HCC) Procedures XR COLONIC TRANSIT IMAGE 1 X-RAY ABD SINGLE AP VIEW Monroe Perry MD [address] [place] [address] [place] [id number] Referral ID Status Reason Start Date Expiration Date V isits Requested Visits Authorized [id number] Closed Auto-Generate d Referral 06/07/2021 07/07/2022 99 99 [facility] for visit Narrative* Diagnostic Procedure Only (Routine) - Closed Specialty Diagnoses / Procedures Referred By Contac t Referred To Contact XR IMAGING Diagnoses Volvulus (HCC) Procedures XR COLONIC TRANSIT IMAGE 2 X-RAY ABD SINGLE AP VIEW Monroe Perry MD [address] [place] [address] [place] [id number] Referral ID Status Reason Start Date Expiration Date V isits Requested Visits Authorized [id number] Closed Auto-Generate d Referral 06/07/2021 07/07/2022 1 1 [facility] for visit Narrative* Diagnostic Procedure Only (Routine) - Closed Specialty Diagnoses / Procedures Referred By Contac t Referred To Contact XR IMAGING Diagnoses Volvulus (HCC) Procedures XR COLONIC TRANSIT IMAGE 3 X-RAY ABD SINGLE AP VIEW Monroe Perry MD [address] [place] [address] [place] [id number] Referral ID Status Reason Start Date Expiration Date V isits Requested Visits Authorized [id number] Closed Auto-Generate d Referral 06/07/2021 07/07/2022 1 1 [facility] Summary Purpose Family History No Family History Records FoundNo Family History Records FoundNo Family History Records FoundNo Family History Records FoundNo Family History Records FoundNo Family History Records FoundNo Family History Records Found Advance Directives No Advanced Directives Records FoundDocuments on File Type Date Recorded 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 Advance Directive(s) 09/21/2021 3:30 PM Advance Directive(s) 07/19/2019 5:57 AM Advance Directive(s) 07/19/2019 6:01 AM Advance Directive(s) 07/06/2019 9:13 AM Documents on File Type Date Recorded 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 No August 14, 2023 10:15pm Advance Directive Response Recorded Date/ Time Do you have a Healthcare Power of Program Developer? No March 30, 2025 10:02am Medications Administered [...] ESTABLISH WITH PRIMARY CARE NEW PATIENT OFFICE/OUTPATIENT [facility] MDM 60-74 MINUTES Xiomara Thompson PA-C [address] [place] [address] [facility] [address] [place] [address] Referral ID Status Reason Start Date Expiration Date V isits Requested Visits Authorized [id number] Closed PCP Requested Referral 03/13/2023 03/12/2024 1 1 Specialty Diagnoses / Procedures Referred By Contac t Referred To Contact [facility] Diagnoses Acute left-sided low back pain with left-sided sciatica Procedures [facility] OFFICE/OUTPATIENT [facility] MDM 60-74 MINUTES [facility] [address] [place] [address] Referral ID Status Reason Start Date Expiration Date Visits Requested Visits Authorized [id number] Authorized PCP Requested Referral 03/13/2023 03/12/2024 1 1 Specialty Diagnoses / Procedures Referred By Contac t Referred To Contact XR IMAGING Diagnoses Acute left-sided low back pain with left-sided sciatica Procedures XR LUMBAR GENERAL 3V AP/LAT/L5-S1 RADEX SPINE LUMBOSACRAL 2/3 VIEWS [facility] [address] [place] [address] Xr Imaging Referral ID Status Reason Start Date Expiration Date V isits Requested Visits Authorized [id number] Closed Auto-Generate d Referral 03/13/2023 04/11/2024 1 1 Specialty Diagnoses / Procedures Referred By Contac t Referred To Contact MR IMAGING Diagnoses Spinal stenosis of lumbar region without neurogenic claudication Procedures MRI LUMBAR SPINE WO IVCON MRI SPINAL CANAL LUMBAR W/O CONTRAST MATERIAL Rolando Eugene, DO [address] [place] [address] Mr Imaging Referral ID Status Reason Start Date Expiration Date Visits Requested Visits Authorized [id number] Authorized Auto-Generat ed Referral 03/18/2023 04/16/2024 1 1 Specialty Diagnoses / Procedures Referred By Contac t Referred To Contact XR IMAGING Diagnoses Lumbar radiculopathy Procedures XR LUMBAR LIMITED 2V FLEX/EXT RADEX SPINE LUMBOSACRAL 2/3 VIEWS Rolando Eugene, DO [address] [place] [address] Xr Imaging Referral ID Status Reason Start Date Expiration Date V isits Requested Visits Authorized [id number] Closed Auto-Generate d Referral 03/13/2023 04/11/2024 1 1 Specialty Diagnoses / Procedures Referred By Contac t Referred To Contact MR IMAGING Diagnoses Spinal stenosis of lumbar region without neurogenic claudication Procedures MRI LUMBAR SPINE WO IVCON MRI SPINAL CANAL LUMBAR W/O CONTRAST MATERIAL Rolando Eugene, DO [address] [place] [address] [place] [address] Referral ID Status Reason Start Date Expiration Date V isits Requested Visits Authorized [id number] Closed Auto-Generate d Referral 03/18/2023 04/16/2024 1 1 Specialty Diagnoses / Procedures Referred By Contac t Referred To Contact CT IMAGING Diagnoses Nausea Colonic inertia Ileus following gastrointestinal surgery (HCC) Generalized abdominal pain Colon stricture (HCC) Procedures CT ABD/PEL W IVCON CT ABD & PELVIS W/CONTRAST Jesus Raza APRN.[employer]ER [address] [place] [address] [place] [id number] Referral ID Status Reason Start Date Expiration Date Visits Requested Visits Authorized [id number] New Request Auto-Generat ed Referral 04/20/2024 05/20/2025 1 1 Specialty Diagnoses / Procedures Referred By Contac t Referred To Contact Gastroenterology Diagnoses Colonic inertia Ileus following gastrointestinal surgery (HCC) Procedures CONSULT TO GASTROENTEROLOGY Jesus Raza APRN.[employer]ISHER [address] [place] [address] FriendTom, DO [address] [address] Referral ID Status Reason Start Date Expiration Date Visits Requested Visits Authorized [id number] Ref Not Required PCP Requested Referral 04/29/2024 [...] section and content) DATE CREATED AUTHOR 01/04/2020 [facility] DATE CREATED AUTHOR AUTHOR'S ORGANIZ ATION 05/22/2021 [facility] ical Center DATE CREATED AUTHOR AUTHOR'S ORGANIZ ATION 06/09/2021 [facility] DATE CREATED AUTHOR AUTHOR'S ORGANIZ ATION 12/11/2022 [facility] DATE CREATED AUTHOR AUTHOR'S ORGANIZ ATION 04/23/2023 [facility] dical Center DATE CREATED AUTHOR AUTHOR'S ORGANIZ ATION 04/27/2025 [facility] DATE CREATED AUTHOR AUTHOR'S ORGANIZ ATION 04/27/2025 [facility] Comments (unrecognize d section and content) In the event this informatio n is protected by the Federal Confidentiality of Alcohol and Drug Abuse Patient Records regulations: The Federal rules restrict any use of the information to criminally investigate or prosecute any alcohol or drug abuse patient.[facility] the event this information is protected by the Federal Confidentiality of Alcohol and Drug Abuse Patient Records regulations: The Federal rules restrict any use of the information to criminally investigate or prosecute any alcohol or drug abuse patient.[facility] the event this information is protected by the Federal Confidentiality of Alcohol and Drug Abuse Patient Records regulations: The Federal rules restrict any use of the information to criminally investigate or prosecute any alcohol or drug abuse patient.[facility] the event this information is protected by the Federal Confidentiality of Alcohol and Drug Abuse Patient Records regulations: The Federal rules restrict any use of the information to criminally investigate or prosecute any alcohol or drug abuse patient.[facility] Center[facility] the event this information is protected by the Federal Confidentiality of Alcohol and Drug Abuse Patient Records regulations: The Federal rules restrict any use of the information to criminally investigate or prosecute any alcohol or drug abuse patient.[facility] the event this information is protected by the Federal Confidentiality of Alcohol and Drug Abuse Patient Records regulations: The Federal rules restrict any use of the information to criminally investigate or prosecute any alcohol or drug abuse patient.[facility] the event this information is protected by the Federal Confidentiality of Alcohol and Drug Abuse Patient Records regulations: The Federal rules restrict any use of the information to criminally investigate or prosecute any alcohol or drug abuse patient.[facility] Center[facility] the event this information is protected by the Federal Confidentiality of Alcohol and Drug Abuse Patient Records regulations: The Federal rules restrict any use of the information to criminally investigate or prosecute any alcohol or drug abuse patient.[facility] Center[facility] the event this information is protected by the Federal Confidentiality of Alcohol and Drug Abuse Patient Records regulations: The Federal rules restrict any use of the information to criminally investigate or prosecute any alcohol or drug abuse patient.[facility] Center[facility] the event this information is protected by the Federal Confidentiality of Alcohol and Drug Abuse Patient Records regulations: The Federal rules restrict any use of the information to criminally investigate or prosecute any alcohol or drug abuse patient.[facility] the event this information is protected by the Federal Confidentiality of Alcohol and Drug Abuse Patient Records regulations: The Federal rules restrict any use of the information to criminally investigate or prosecute any alcohol or drug abuse patient.[facility] Center[facility] the event this information is protected by the Federal Confidentiality of Alcohol and Drug Abuse Patient Records regulations: The Federal rules restrict any use of the information to criminally investigate or prosecute any alcohol or drug abuse patient.[facility] Center[facility] the event this information is protected by the Federal Confidentiality of Alcohol and Drug Abuse Patient Records regulations: The Federal rules restrict any use of the information to criminally investigate or prosecute any alcohol or drug abuse patient.[facility] Center[facility] the event this information is protected by the Federal Confidentiality of Alcohol and Drug Abuse Patient Records regulations: The Federal rules restrict any use of the information to criminally investigate or prosecute any alcohol or drug abuse patient.[facility] Center[facility] the event this information is protected by the Federal Confidentiality of Alcohol and Drug Abuse Patient Records regulations: The Federal rules restrict any use of the information to criminally investigate or prosecute any alcohol or drug abuse patient.[facility] Center[facility] the event this information is protected by the Federal Confidentiality of Alcohol and Drug Abuse Patient Records regulations: The Federal rules restrict any use of the information to criminally investigate or prosecute any alcohol or drug abuse patient.[facility] Center[facility] the event this information is protected by the Federal Confidentiality of Alcohol and Drug Abuse Patient Records regulations: The Federal rules restrict any use of the information to criminally investigate or prosecute any alcohol or drug abuse patient.[facility] Center[facility] the event this information is protected by the Federal Confidentiality of Alcohol and Drug Abuse Patient Records regulations: The Federal rules restrict any use of the information to criminally investigate or prosecute any alcohol or drug abuse patient.[facility] Center[facility] the event this information is protected by the Federal Confidentiality of Alcohol and Drug Abuse Patient Records regulations: The Federal rules restrict any use of the information to criminally investigate or prosecute any alcohol or drug abuse patient.[facility] Center[facility] the event this information is protected by the Federal Confidentiality of Alcohol and Drug Abuse Patient Records regulations: The Federal rules restrict any use of the information to criminally investigate or prosecute any alcohol or drug abuse patient.[facility] Center[facility] the event this information is protected by the Federal Confidentiality of Alcohol and Drug Abuse Patient Records regulations: The Federal rules restrict any use of the information to criminally investigate or prosecute any alcohol or drug abuse patient.[facility] CenterIn the event this information is protected by the Federal Confidentiality of Alcohol and Drug Abuse Patient Records regulations: The Federal rules restrict any use of the information to criminally investigate or prosecute any alcohol or drug abuse patient.[facility] Center[facility] the event this information is protected by the Federal Confidentiality of Alcohol and Drug Abuse Patient Records regulations: The Federal rules restrict any use of the information to criminally investigate or prosecute any alcohol or drug abuse patient.[facility] CenterIn the event this information is protected by the Federal Confidentiality of Alcohol and Drug Abuse Patient Records regulations: The Federal rules restrict any use of the information to criminally investigate or prosecute any alcohol or drug abuse patient.[facility] CenterIn the event this information is protected by the Federal Confidentiality of Alcohol and Drug Abuse Patient Records regulations: The Federal rules restrict any use of the information to criminally investigate or prosecute any alcohol or drug abuse patient.[facility] CenterIn the event this information is protected by the Federal Confidentiality of Alcohol and Drug Abuse Patient Records regulations: The Federal rules restrict any use of the information to criminally investigate or prosecute any alcohol or drug abuse patient.[facility] CenterIn the event this information is protected by the Federal Confidentiality of Alcohol and Drug Abuse Patient Records regulations: The Federal rules restrict any use of the information to criminally investigate or prosecute any alcohol or drug abuse patient.[facility] CenterIn the event this information is protected by the Federal Confidentiality of Alcohol and Drug Abuse Patient Records regulations: The Federal rules restrict any use of the information to criminally investigate or prosecute any alcohol or drug abuse patient.[facility] CenterIn the event this information is protected by the Federal Confidentiality of Alcohol and Drug Abuse Patient Records regulations: The Federal rules restrict any use of the information to criminally investigate or prosecute any alcohol or drug abuse patient.[facility] CenterIn the event this information is protected by the Federal Confidentiality of Alcohol and Drug Abuse Patient Records regulations: The Federal rules restrict any use of the information to criminally investigate or prosecute any alcohol or drug abuse patient.[facility] CenterIn the event this information is protected by the Federal Confidentiality of Alcohol and Drug Abuse Patient Records regulations: The Federal rules restrict any use of the information to criminally investigate or prosecute any alcohol or drug abuse patient.[facility] CenterIn the event this information is protected by the Federal Confidentiality of Alcohol and Drug Abuse Patient Records regulations: The Federal rules restrict any use of the information to criminally investigate or prosecute any alcohol or drug abuse patient.[facility] CenterIn the event this information is protected by the Federal Confidentiality of Alcohol and Drug Abuse Patient Records regulations: The Federal rules restrict any use of the information to criminally investigate or prosecute any alcohol or drug abuse patient.[facility] CenterIn the event this information is protected by the Federal Confidentiality of Alcohol and Drug Abuse Patient Records regulations: The Federal rules restrict any use of the information to criminally investigate or prosecute any alcohol or drug abuse patient.[facility] CenterIn the event this information is protected by the Federal Confidentiality of Alcohol and Drug Abuse Patient Records regulations: The Federal rules restrict any use of the information to criminally investigate or prosecute any alcohol or drug abuse patient.[facility] CenterIn the event this information is protected by the Federal Confidentiality of Alcohol and Drug Abuse Patient Records regulations: The Federal rules restrict any use of the information to criminally investigate or prosecute any alcohol or drug abuse patient.[facility] CenterIn the event this information is protected by the Federal Confidentiality of Alcohol and Drug Abuse Patient Records regulations: The Federal rules restrict any use of the information to criminally investigate or prosecute any alcohol or drug abuse patient.[facility] CenterIn the event this information is protected by the Federal Confidentiality of Alcohol and Drug Abuse Patient Records regulations: The Federal rules restrict any use of the information to criminally investigate or prosecute any alcohol or drug abuse patient.[facility] CenterIn the event this information is protected by the Federal Confidentiality of Alcohol and Drug Abuse Patient Records regulations: The Federal rules restrict any use of the information to criminally investigate or prosecute any alcohol or drug abuse patient.[facility] CenterIn the event this information is protected by the Federal Confidentiality of Alcohol and Drug Abuse Patient Records regulations: The Federal rules restrict any use of the information to criminally investigate or prosecute any alcohol or drug abuse patient.[facility] CenterIn the event this information is protected by the Federal Confidentiality of Alcohol and Drug Abuse Patient Records regulations: The Federal rules restrict any use of the information to criminally investigate or prosecute any alcohol or drug abuse patient.[facility] CenterIn the event this information is protected by the Federal Confidentiality of Alcohol and Drug Abuse Patient Records regulations: The Federal rules restrict any use of the information to criminally investigate or prosecute any alcohol or drug abuse patient.[facility] CenterIn the event this information is protected by the Federal Confidentiality of Alcohol and Drug Abuse Patient Records regulations: The Federal rules restrict any use of the information to criminally investigate or prosecute any alcohol or drug abuse patient.[facility] CenterIn the event this information is protected by the Federal Confidentiality of Alcohol and Drug Abuse Patient Records regulations: The Federal rules restrict any use of the information to criminally investigate or prosecute any alcohol or drug abuse patient.[facility] CenterIn the event this information is protected by the Federal Confidentiality of Alcohol and Drug Abuse Patient Records regulations: The Federal rules restrict any use of the information to criminally investigate or prosecute any alcohol or drug abuse patient.[facility] CenterIn the event this information is protected by the Federal Confidentiality of Alcohol and Drug Abuse Patient Records regulations: The Federal rules restrict any use of the information to criminally investigate or prosecute any alcohol or drug abuse patient.[facility] CenterIn the event this information is protected by the Federal Confidentiality of Alcohol and Drug Abuse Patient Records regulations: The Federal rules restrict any use of the information to criminally investigate or prosecute any alcohol or drug abuse patient.[facility] CenterIn the event this information is protected by the Federal Confidentiality of Alcohol and Drug Abuse Patient Records regulations: The Federal rules restrict any use of the information to criminally investigate or prosecute any alcohol or drug abuse patient.[facility] CenterIn the event this information is protected by the Federal Confidentiality of Alcohol and Drug Abuse Patient Records regulations: The Federal rules restrict any use of the information to criminally investigate or prosecute any alcohol or drug abuse patient.[facility] CenterIn the event this information is protected by the Federal Confidentiality of Alcohol and Drug Abuse Patient Records regulations: The Federal rules restrict any use of the information to criminally investigate or prosecute any alcohol or drug abuse patient.[facility] Reason for Visit (unrecogniz ed section and content) Reason Comments Established Patient abdominal pain Reason Comments Stoma Markings Reason Onset Date Comments Transition Of Care 12/20/2021 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 Reason Comments Consult Reason Onset Date Comments Transition Of Care 04/04/2022 [facility] initial o utreach-dc'd from [facility] 04/03/22 Reason Comments Established Patient Discuss [...] MATERIAL Rolando Eugene, DO [address] [place] [id number] [place] [id number] Referral ID Status Reason Start Date Expiration Date V isits Requested Visits Authorized [id number] Closed Auto-Generate d Referral 03/18/2023 04/16/2024 1 [...] Care Teams (unrecognized sec tion and content) Explosive Ordnance Manager Relationship Specialty Start Date End Date Cassie Richardson MD [address] [place] [address] PCP - General Family Practice 08/20/21 Explosive Ordnance Manager Relationship Specialty Start Date End Date Cassie Richardson MD [address] [place] [address] PCP - General Family Practice 08/20/21 Explosive Ordnance Manager Relationship Specialty Start Date End Date Cassie Richardson MD [address] [place] [address] PCP - General Family Practice 08/20/21 Collin Le MD [address] [place] [address] [place], [place] [phone] Referring General Surgery 12/11/21 Collin Le MD [address] [place] [address] [place], [place] [phone] Home Care Physician General Surgery 12/11/21 Maile Caruso, RADHA [address] [place] [id number] [facility] Post Acute Care 12/20/21 Explosive Ordnance Manager Relationship Specialty Start Date End Date Cassie Richardson MD [address] [place] [address] PCP - General Family Practice 08/20/21 Collin Le MD [address] [place] [address] [place] [address] Referring General Surgery 12/11/21 Collin Le MD [address] [place] [address] [place] [address] Home Care Physician General Surgery 12/11/21 Maile Caruso RN [address] [place] [address] [facility] Post Acute Care 12/20/21 Explosive Ordnance Manager Relationship Specialty Start Date End Date Cassie Richardson MD [address] [place] [address] PCP - General Family Practice 08/20/21 Collin Le MD [address] [place] [address] [place] [address] Referring General Surgery 12/11/21 Collin Le MD [address] [place] [address] [place] [address] Home Care Physician General Surgery 12/11/21 Maile Caruso RN [address] [place] [address] [facility] Post Acute Care 12/20/21 Explosive Ordnance Manager Relationship Specialty Start Date End Date Cassie Richardson MD [address] [place] [address] PCP - General Family Practice 08/20/21 Collin Le MD [address] [place] [address] [place] [address] Referring General Surgery 12/11/21 Collin Le MD [address] [place] [address] [place] [address] Home Care Physician General Surgery 12/11/21 Maile Caruso, RADHA [address] [place] [address] [facility] Post Acute Care 12/20/21 Explosive Ordnance Manager Relationship Specialty Start Date End Date Cassie Richardson MD [address] [place] [address] PCP - General Family Practice 08/20/21 Collin Le MD [address] [place] [address] [place] [address] Referring General Surgery 12/11/21 Collin Le MD [address] [place] [address] [place] [address] Home Care Physician General Surgery 12/11/21 Maile Caruso RN [address] [place] [address] [facility] Post Acute Care 12/20/21 Explosive Ordnance Manager Relationship Specialty Start Date End Date Cassie Richardson MD [address] [place] [address] PCP - General Family Practice 08/20/21 Collin Le MD [address] [place] [address] [place] [address] Referring General Surgery 12/11/21 Collin Le MD [address] [place] [address] [place] [address] Home Care Physician General Surgery 12/11/21 Maile Caruso RN [address] [place] [address] [facility] Post Acute Care 12/20/21 Explosive Ordnance Manager Relationship Specialty Start Date End Date Cassie Richardson MD [address] [address] PCP - General Family Practice 08/20/21 Collin Le MD [address] [place] [address] [place] [address] Referring General Surgery 12/11/21 Collin Le MD [address] [place] [address] [place] [address] Home Care Physician General Surgery 12/11/21 Maile Caruso RN [address] [place] [address] [facility] Post Acute Care 12/20/21 Explosive Ordnance Manager Relationship Specialty Start Date End Date Cassie Richardson MD [address] [place] [address] PCP - General Family Practice 08/20/21 Collin Le MD [address] [place] [address] [place] [address] Referring General Surgery 12/11/21 Collin Le MD [address] [place] [address] [place] [address] Home Care Physician General Surgery 12/11/21 Maile Caruso RN [address] [place] [address] [facility] Post Acute Care 12/20/21 Explosive Ordnance Manager Relationship Specialty Start Date End Date Cassie Richardson MD [address] [place] [address] PCP - General Family Medicine 08/20/21 Collin Le MD [address] [place] [address] [place] [address] Referring General Surgery 12/11/21 Collin Le MD [address] [place] [address] [place] [address] Home Care Provider General Surgery 12/11/21 Maile Caruso RN [address] [place] [address] [facility] Post Acute Care 12/20/21 Explosive Ordnance Manager Relationship Specialty Start Date End Date Cassie Richardson MD [address] [place] [address] PCP - General Family Medicine 08/20/21 Collin Le MD [address] [place] [address] [place] [address] Referring General Surgery 12/11/21 Collin Le MD [address] [place] [address] [place] [address] Home Care Provider General Surgery 12/11/21 Maile Caruso RN [address] [place] [address] [facility] Post Acute Care 12/20/21 Explosive Ordnance Manager Relationship Specialty Start Date End Date Cassie Richardson MD [address] [place] [address] PCP - General Family Medicine 08/20/21 Collin Le MD [address] [place] [address] [place] [address] Referring General Surgery 12/11/21 Collin Le MD [address] [place] [address] [place] [address] Home Care Provider General Surgery 12/11/21 Maile Caruso, RADHA [address] [place] [address] [facility] Post Acute Care 12/20/21 Explosive Ordnance Manager Relationship Specialty Start Date End Date Cassie Richardson MD [address] [place] [address] PCP - General Family Medicine 08/20/21 Collin Le MD [address] [place] [address] [place] [address] Referring General Surgery 12/11/21 Collin Le MD [address] [place] [address] [place] [address] Home Care Provider General Surgery 12/11/21 Maile Caruso RN [address] [place] [address] [facility] Post Acute Care 12/20/21 Explosive Ordnance Manager Relationship Specialty Start Date End Date Cassie Richardson MD [address] [place] [address] PCP - General Family Medicine 08/20/21 Collin Le MD [address] [place] [address] [place] [address] Referring General Surgery 12/11/21 Collin Le MD [address] [place] [address] [place] [address] Home Care Provider General Surgery 12/11/21 Maile Caruso RN [address] [place] [address] [facility] Post Acute Care 12/20/21 Explosive Ordnance Manager Relationship Specialty Start Date End Date Cassie Richardson MD [address] [place] [address] PCP - General Family Medicine 08/20/21 Collin Le MD [address] [place] [address] [place] [address] Referring General Surgery 12/11/21 Collin Le MD [address] [place] [address] [place] [address] Home Care Provider General Surgery 12/11/21 Maile Caruso RN [address] [place] [address] [facility] Post Acute Care 12/20/21 Explosive Ordnance Manager Relationship Specialty Start Date End Date Cassie Richardson MD [address] [place] [address] PCP - General Family Medicine 08/20/21 Collin Le MD [address] [place] [address] [place] [address] Referring General Surgery 12/11/21 Collin Le MD [address] [place] [address] [place] [address] Home Care Provider General Surgery 12/11/21 Maile Caruso RN [address] [place] [address] [facility] Post Acute Care 12/20/21 Explosive Ordnance Manager Relationship Specialty Start Date End Date Cassie Richardson MD [address] [place] [address] PCP - General Family Medicine 08/20/21 Collin Le MD [address] [place] [address] [place] [address] Referring General Surgery 12/11/21 Collin Le MD [address] [place] [address] [place] [address] Home Care Provider General Surgery 12/11/21 Maile Caruso RN [address] [place] [address] [facility] Post Acute Care 12/20/21 Explosive Ordnance Manager Relationship Specialty Start Date End Date Cassie Richardson MD [address] [place] [address] PCP - General Family Medicine 08/20/21 Collin Le MD [address] [place] [address] [place] [address] Referring General Surgery 12/11/21 Collin Le MD [address] [place] [address] [place] [address] Home Care Provider General Surgery 12/11/21 Maile Caruso RN [address] [place] [address] [facility] Post Acute Care 12/20/21 Explosive Ordnance Manager Relationship Specialty Start Date End Date Collin Le MD [address] [place] [address] [facility] [address] [place] [address] Referring General Surgery 12/11/21 Collin Le MD [address] [place] [address] [place] [address] Home Care Provider General Surgery 12/11/21 Maile Caruso RN [address] [place] [address] [facility] Post Acute Care 12/20/21 Explosive Ordnance Manager Relationship Specialty Start Date End Date Jesus Raza APRN.GRANITE POLISHER [address] [place], [place] [address] PCP - General Family Medicine 03/13/23 Collin Le MD [address] [place] [address] [place], [place] [phone] Referring General Surgery 12/11/21 Collin Le MD [address] [place] [address] [place], [place] [phone] Home Care Provider General Surgery 12/11/21 Maile Caruso RN [address] [place] [address] [facility] Post Acute Care 12/20/21 Daren Dimas MD [address] [place], [place] [phone] Gastroenterology 12/20/22 Explosive Ordnance Manager Relationship Specialty Start Date End Date Jesus Raza, PROFESSOR OF BIBLICAL STUDIES.GRANITE POLISHER [address] [place] [address] PCP - General Family Medicine 03/13/23 Collin Le MD [address] [place] [address] [place], [place] [phone] Referring General Surgery 12/11/21 Collin Le MD [address] [place] [address] [place], [place] [phone] Home Care Provider General Surgery 12/11/21 Maile Caruso RN [address] [place] [address] [facility] Post Acute Care 12/20/21 Daren Dimas MD [address] [facility] [place], [place] [phone] Gastroenterology 12/20/22 Explosive Ordnance Manager Relationship Specialty Start Date End Date Jesus Raza APRN.GRANITE POLISHER [address] [place] [address] PCP - General Family Medicine 03/13/23 Collin Le MD [address] [place] [address] [place], [place] [phone] Referring General Surgery 12/11/21 Collin Le MD [address] [place] [address] [place], [place] [phone] Home Care Provider General Surgery 12/11/21 Maile Caruso RN [address] [place], [place] [phone] [facility] Post Acute Care 12/20/21 Daren Dimas MD [address] [place], [place] [phone] Gastroenterology 12/20/22 Explosive Ordnance Manager Relationship Specialty Start Date End Date Jesus Raza APRN.GRANITE POLISHER [address] [place] [address] PCP - General Family Medicine 03/13/23 Collin Le MD [address] [place] [address] [place], [place] [phone] Referring General Surgery 12/11/21 Collin Le MD [address] [place] [address] [place], [place] [phone] Home Care Provider General Surgery 12/11/21 Maile Caruso RN [address] [place] [address] [facility] Post Acute Care 12/20/21 Daren Dimas MD [address] [place] [address] Gastroenterology 12/20/22 Explosive Ordnance Manager Relationship Specialty Start Date End Date Jesus Raza APRN.GRANITE POLISHER [facility] [place] [address] PCP - General Family Medicine 03/13/23 Collin Le MD [address] [place] [address] [place], [place] [phone] Referring General Surgery 12/11/21 Collin Le MD [address] [place] [address] [place], [place] [phone] Home Care Provider General Surgery 12/11/21 Maile Caruso RN [address] [place] [address] [facility] Post Acute Care 12/20/21 Daren Dimas MD [address] [place], [place] [phone] Gastroenterology 12/20/22 Explosive Ordnance Manager Relationship Specialty Start Date End Date Jesus Raza APRN.GRANITE POLISHER [facility] [place] [address] PCP - General Family Medicine 03/13/23 Collin Le MD [address] [place] [address] [place], [place] [phone] Referring General Surgery 12/11/21 Collin Le MD [address] [place] [address] [place] [address] Home Care Provider General Surgery 12/11/21 Maile Caruso, RADHA [address] [place] [address] [facility] Post Acute Care 12/20/21 Daren Dimas MD [address] [place] [address] Gastroenterology 12/20/22 Explosive Ordnance Manager Relationship Specialty Start Date End Date Jesus Raza APRN.GRANITE POLISHER [address] [place] [address] PCP - General Family Medicine 03/13/23 Collin Le MD [address] [place] [address] [place] [address] Referring General Surgery 12/11/21 Collin Le MD [address] [place] [address] [place] [address] Home Care Provider General Surgery 12/11/21 Maile Caruso RN [address] [place], [place] [phone] [facility] Post Acute Care 12/20/21 Daren Dimas MD [address] [place] [address] Gastroenterology 12/20/22 Explosive Ordnance Manager Relationship Specialty Start Date End Date Jesus Raza APRN.GRANITE POLISHER [address] [place] [phone] PCP - General Family Medicine 03/13/23 Collin Le MD [address] [place] [address] [place] [address] Referring General Surgery 12/11/21 Collin Le MD [address] [place] [address] [place] [address] Home Care Provider General Surgery 12/11/21 Maile Caruso (Rn), RN [address] [place] [address] [place] [address] [facility] Post Acute Care 12/20/21 Daren Dimas MD [address] [place] [address] Gastroenterology 12/20/22 Explosive Ordnance Manager Relationship Specialty Start Date End Date Jesus Raza APRN.GRANITE POLISHER [address] [place] [address] PCP - General Family Medicine 03/13/23 Collin Le MD [address] [place] [address] [place] [address] Referring General Surgery 12/11/21 Collin Le MD [address] [place] [address] [place] [address] Home Care Provider General Surgery 12/11/21 Maile Caruso (Rn), RN [address] [place] [address] [place] [address] [facility] Post Acute Care 12/20/21 Daren Dimas MD [address] [place] [address] Gastroenterology 12/20/22 Explosive Ordnance Manager Relationship Specialty Start Date End Date Jesus Raza, PROFESSOR OF BIBLICAL STUDIES.GRANITE POLISHER [address] [place] [address] PCP - General Family Medicine 03/13/23 Collin Le MD [address] [place] [address] [place] [address] Referring General Surgery 12/11/21 Collin Le MD [address] [place] [address] [place], [place] [phone] Home Care Provider General Surgery 12/11/21 Maile Caruso (Rn), RN [address] [place] [address] [place] [address] [facility] Post Acute Care 12/20/21 Daren Dimas MD [address] [place] [address] Gastroenterology 12/20/22 Explosive Ordnance Manager Relationship Specialty Start Date End Date Jesus Raza, ROHIT.GRANITE POLISHER [address] [place] [address] PCP - General Family Medicine 03/13/23 Collin Le MD [address] [place] [address] [place] [address] Referring General Surgery 12/11/21 Collin Le MD [address] [place] [address] [place], [place] [phone] Home Care Provider General Surgery 12/11/21 Maile Caruso (Rn), RN [address] [place] [address] [place] [address] [facility] Post Acute Care 12/20/21 Daren Dimas MD [address] [place] [address] Gastroenterology 12/20/22 Explosive Ordnance Manager Relationship Specialty Start Date End Date Jesus Raza APRN.GRANITE POLISHER [address] [place] [address] PCP - General Family Medicine 03/13/23 Collin Le MD [address] [place] [address] [place], [place] [phone] Referring General Surgery 12/11/21 Collin Le MD [address] [place] [address] [place], [place] [phone] Home Care Provider General Surgery 12/11/21 Maile Caruso (Rn), RN [address] [place] [address] [place] [address] [facility] Post Acute Care 12/20/21 Daren Dimas MD [address] [place] [address] Gastroenterology 12/20/22 Explosive Ordnance Manager Relationship Specialty Start Date End Date Jesus Raza, ROHIT.GRANITE POLISHER [address] [place] [id number] PCP - General Family Medicine 03/13/23 Collin Le MD [address] [place] [address] [place], [place] [phone] Referring General Surgery 12/11/21 Collin Le MD [address] [address] [place], [place] [phone] Home Care Provider General Surgery 12/11/21 Maile Caruso (Rn), RN [address] [facility] [address] [place] [address] [facility] Home Health Post Acute Care 12/20/21 Daren Dimas MD [address] [place] [address] Gastroenterology 12/20/22 Explosive Ordnance Manager Relationship Specialty Start Date End Date Jesus Raza APRN.GRANITE POLISHER [address] [place] [address] PCP - General Family Medicine 03/13/23 Collin Le MD [address] [place] [address] Referring General Surgery 12/11/21 Collin Le MD [address] [address] [facility] [address] [place] [address] Home Care Provider General Surgery 12/11/21 Maile Caruso (Rn), RN [address] [address] [facility] [address] [place] [address] [facility] Home Health Post Acute Care 12/20/21 Daren Dimas MD [address] [place] [address] Gastroenterology 12/20/22 Explosive Ordnance Manager Relationship Specialty Start Date End Date Jesus Raza APRN.GRANITE POLISHER [address] [place] [id number] PCP - General Family Medicine 03/13/23 Collin Le MD [address] [facility] [address] [place], [place] [phone] Referring General Surgery 12/11/21 Collin Le MD [address] [address] [place] [address] Home Care Provider General Surgery 12/11/21 Maile Caruso (Rn), RN [address] [address] [place] [address] [facility] Home Health Post Acute Care 12/20/21 Daren Dimas MD [address] [place] [address] Gastroenterology 12/20/22 Explosive Ordnance Manager Relationship Specialty Start Date End Date Collin Le MD [address] [place] [address] [place] [address] Referring General Surgery 12/11/21 Collin Le MD [address] [address] [place] [address] Home Care Provider General Surgery 12/11/21 Maile Caruso (Rn), RN [address] [address] [place] [address] [facility] Home Health Post Acute Care 12/20/21 Daren Dimas MD [address] [place] [address] Gastroenterology 12/20/22 Explosive Ordnance Manager Relationship Specialty Start Date End Date Collin Le MD [address] [place] [address] [place] [address] Referring General Surgery 12/11/21 Collin Le MD [address] [address] [place] [address] Home Care Provider General Surgery 12/11/21 Maile Caruso (Rn), RN [address] [address] L[facility] Home Health Post Acute Care 12/20/21 Explosive Ordnance Manager Relationship Specialty Start Date End Date Sebastián Gibbons [id number] [facility] [place] [id number] PCP - General Family Medicine 06/03/19 08/19/21 [...] Provider Active St art: April 01, 2025 Explosive Ordnance Manager Relationship Specialty Start Date End Date Collin Le MD [address] [address] [place], [place] [phone] Referring General Surgery 12/11/21 Collin Le MD [address] [address] [place], [place] [phone] Home Care Provider General Surgery 12/11/21 Maile Caruso (Rn), RN 1 [facility] [address] [place] [address] Lvn Home Health Post Acute Care 12/20/21 Daren Dimas MD 1 [facility] [address] [place] [address] Gastroenterology 12/20/22 Goals (unrecognized section and content) [...] BE BASED ON THE PRIMARY CLINICAL RECORDS. [facility]. provides no warranty or guarantee of the accuracy or completeness of information in this document.
[2025-05-29] MEDS: Piperacil/Tazobactam 3.375 GM in 0.9% Normal Saline (50mL MB+) 50 ML IV (21:42)
[2025-05-29] MEDS: MELATONIN 10 MG TABLET PO (21:42)
[2025-05-30] VITALS (11 sets, daily range): BP systolic 109–129; BP diastolic 75–94; PULSE 77–93; RESP 15–18; TEMP 36.8–37.5; O2SAT 93–97; BMI 28.6
[2025-05-30] MEDS: 0.9% Normal Saline (1000mL) 1,000 ML 125 ML IV (00:20)
--- NOTE | 2025-05-30 02:30 | NURSING ---
pt got up to the restroom and stated it felt like he passed something in the toilet then looked and the toilet was full of blood. pt denies dizziness, vss.
--- NOTE | 2025-05-30 05:00 | EKG12_ITS ---
Test Reason : AM EKG Blood Pressure : */* mmHG Vent. Rate : 78 BPM Atrial Rate : 78 BPM P-R Int : 158 ms QRS Dur : 102 ms QT Int : 382 ms P-R-T Axes : 42 -17 6 degrees QTcB Int : 435 ms Normal sinus rhythm Incomplete right bundle branch block Borderline ECG No previous ECGs available Confirmed by RAEGAN DALEY, SEBASTIEN ([id number]), subeditor VINICIO GRANDE ([id number]) on 05/30/2025 10:06:08 AM Referred By: JOHANNA Confirmed By: SEBASTIEN CARLIN MD
[2025-05-30] MEDS: Piperacil/Tazobactam 3.375 GM in 0.9% Normal Saline (50mL MB+) 50 ML IV ×3 (05:24→21:01)
[2025-05-30 05:30] LABS: Hematocrit 42.5 % (40-54); Hemoglobin 14.2 g/dL (13.0-16.5); Immature Granulocytes Count 0.030 X10^3/uL (0.0-0.0); Mean Corp Hgb Conc 33.4 g/dL (32-36); Mean Corpuscular Volume 88.9 fL (80-94); Mean Platelet Vol. 9.2 fl (6.2-12.0); NRBC Flagged by Analyzer 0 % (0-5); Platelet Count 321 K/mm3 (150-450); RBC Distribution Width CV 12.3 % (11.6-14.6); RBC Distribution Width SD 40.6 fl (35.1-43.9); Red Blood Count 4.78 M/mm3 (4.6-6.2); White Blood Count 10.1 K/mm3 (4.4-11.0)
[2025-05-30 05:53] LABS: AST(SGOT) 17 U/L (<=37); Alanine Aminotransfer ALT/SGPT 15 U/L (<=46); Albumin, Serum 3.8 g/dL (3.5-5.0); Alkaline Phosphatase 64 U/L (40-129); Anion Gap 13 (5-15); BUN 9 mg/dL (4-19); BUN/Creat Ratio 8.0 RATIO (10-20); Calcium,Total 8.4 mg/dL (7.6-11.0); Carbon Dioxide 18.8 mmol/L (21.0-32.0); Chloride 106 mmol/L (98-108); Estimated Creatinine Clearance 88.44 ml/min (50-250); Globulin 3.2 g/dL (2.2-4.2); Glucose 97 mg/dL (70-99); Magnesium 2.2 mg/dL (1.5-2.2); Potassium 3.8 mmol/L (3.3-5.1)
[2025-05-30] MEDS: 0.9% Saline Lock 10 ML Syringe IV ×4 (07:56→18:29)
[2025-05-30] MEDS: 0.9% Normal Saline (250mL Bag) 250 ML 15 ML IV (08:35)
[2025-05-30] MEDS: FLU VACCINE 2025-26(6MOS UP) 45 MCG/0.5 ML SYRINGE IM (10:16)
[2025-05-30] MEDS: Lactated Ringers 1,000 ML 15 ML IV (10:33)
--- NOTE | 2025-05-30 11:03 | PCM.PRE.AN2 ---
ASA Classification* ASA Classification ASA Classification: 2 Assessment & Plan Anesthesia* Anesthesia Assessment Anesthesia Assessment: Discussed sedation and/or anesthesia options, risks, benefits, and alternatives with patient/parents/legal guardian/POA. Questions invited. The patient/parents/legal guardian/POA seems to understand and agrees to proceed with anesthesia plan. Reviewed the physical assessment, medical history, allergy history and patient home medications list prior to surgery/procedure/anesthetic and documented any changes. Performed airway and anesthesia risk assessments. Anesthesia Type Anesthesia Type: MAC Anesthesia Focused Assessment* Temperature: 98.3 F Pulse Rate: 84 Blood Pressure: 117/79 Respiratory Rate: 16 Pulse Ox: 95 Airway Assessment Mouth opens: >3 cm Mallampati Score: II Labs Anesthesia Preop lab: CBC WBC, (4.4-11.0) 10.1 K/mm3 Today, 05:15 RBC, (4.6-6.2) 4.78 M/mm3 Today, 05:15 Hgb, (13.0-16.5) 14.2 g/dL Today, 05:15 Hct, (40-54) 42.5 % Today, 05:15 Plt Count, (150-450) 321 K/mm3 Today, 05:15 CHEMISTRY Potassium, (3.3-5.1) 3.8 mmol/L Today, 05:15 Sodium, (133-145) 138 mmol/L Today, 05:15 Magnesium, (1.5-2.2) 2.2 mg/dL Today, 05:15 BUN, (4-19) 9 mg/dL Today, 05:15 Creatinine, (0.70-1.20) 1.15 mg/dL Today, 05:15 Glucose, (70-99) 97 mg/dL Today, 05:15 TSH, (0.300-4.200) 3.810 uIU/mL 10/19/24, 10:20 COAG Pre-Assessment Diagnosis/Proposed Procedure Planned Operative Procedure(s): Flex Sig. Anesthesia History Anesthesia History - photographs curator: Anesthesia History - photographs curator Hx Hospitalization No 03/30/25 10:02 Any Problems With Anesthesia No 05/30/25 06:39 Cholinesterase deficiency No 05/30/25 06:39 You/Your Family Experience No 05/30/25 06:39 fever (hyperthermia) with Relationship Recent Exposure to Contagious No 05/30/25 06:39 Disease Does patient have nerve No 05/30/25 06:39 stimulator Patient instructed to have No 05/30/25 06:39 device shut off --Does patient have Pacemaker No 05/30/25 10:15 or ICD? When Was Last Pacemaker Check QUESTION #4 FULL TEXT: You/Your Family Experience fever (hyperthermia) with Anesthesia Last Oral Intake Last Oral intake: Last Oral Intake NPO since 23:55 05/30/25 10:15 Meds taken in AM with sips of No 05/30/25 10:15 water? Meds patient instructed to take am of surgery PONV PONV - photographs curator: PONV - photographs curator Female HX of Motion Sickness HX of N/V After Surgery Non-Smoker Duration of Surgery greater than 60 minutes Number of Risk Factors PONV Score Height & Weight Height & Weight: Anesthesia: Height & Weight Height 5 ft 7 in 05/30/25 10:15 Weight: 83 kg 05/30/25 10:15 Body Mass Index (BMI) 28.6 05/30/25 10:15 Respiratory Assessment Respiratory Assessment - photographs curator: Respiratory Tract Infection Hx - photographs curator Hx Respiratory Tract Infection No 05/30/25 06:39 STOP Sleep Apnea STOP Sleep Apnea - photographs curator: STOP Sleep Apnea - photographs curator Hx Hypertension No 05/29/25 15:54 Hx Sleep Apnea No 05/29/25 15:54 CPAP BIPAP Do you snore loudly (louder No 05/29/25 15:54 than talking or can be heard Do you often feel tired/ No 05/29/25 15:54 fatigued/ sleepy during daytime? Has anyone observed you stop No 05/29/25 15:54 breathing during sleep? STOP Results Negative 05/29/25 15:54 QUESTION #5 FULL TEXT : Do you snore loudly (louder than talking or can be heard through closed doors)? 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 Specify any problems Hx of Preganancy in last 3 N/A 05/29/25 15:54 Months Nurse Filling Out Transfusion TCLEVIDEN 05/29/25 15:54 & Questions: Date: 05/29/25 05/29/25 15:54 Time: 16:30 05/29/25 15:54 Patient unable to answer at this time (ie. confused, unrespo /Reproduction History /Reproductive History - photographs curator: /Reproductive Hx- photographs curator Hx Now No 05/30/25 06:39 Gestational Age (in weeks): EDC: Hx Hx Para Hx Section SAB No 05/30/25 06:39 Active Medications Active Medications: Current Medications Generic Name Dose Route Start Last Admin Trade Name Freq PRN Reason Stop Dose Admin Acetaminophen 650 mg 05/29/25 15:53 Acetaminophen 325 Mg Tablet PO Q6H PRN PRN Pain 1-10 Or Fever >100.7 Albuterol Sulfate 2.5 mg 05/29/25 15:53 Albuterol 2.5 Mg/3 Ml Vial.Neb. INHALATION Q2H PRN PRN SOB &/OR WHEEZING Piperacillin Sod/Tazobactam 50 mls @ 12.5 mls/hr 05/29/25 22:00 05/30/25 09:41 Sod 3.375 gm/ Sodium Chloride IV Infused Q8 CAROLYN Infusion Sodium Chloride 250 mls @ 15 mls/hr 05/29/25 16:17 05/30/25 10:23 IV 0 mls/hr .[id number] PRN Infusion Saline Flush Sodium Chloride 250 mls @ 15 mls/hr 05/29/25 16:17 IV .[id number] PRN Additional IVPB Infusion Lactated Ringer's 1,000 mls @ 15 mls/hr 05/30/25 10:30 05/30/25 10:33 IV 15 mls/hr .Q48H CAROLYN Administration Ketorolac Tromethamine 15 mg 05/29/25 15:53 05/30/25 07:56 Ketorolac 15 Mg/Ml Vial IV 06/03/25 15:53 15 mg Q6H PRN PRN Administration Pain Score 1-10 Loratadine 10 mg 05/30/25 10:00 05/30/25 08:41 Loratadine 10 Mg Tablet PO Not Given DAILY CAROLYN Melatonin 10 mg 05/29/25 15:53 05/29/25 21:42 Melatonin 10 Mg Tablet PO 10 mg QHS PRN PRN Administration INSOMNIA Morphine Sulfate 2 - 4 mg 05/29/25 15:53 Morphine 2 Mg/Ml Syringe IV Q3H PRN PRN Pain Score 6-10 Ondansetron HCl 4 mg 05/29/25 15:53 Ondansetron 4 Mg/2 Ml Vial IV Q6H PRN PRN NAUSEA/VOMITING Oxycodone HCl 5 mg 05/29/25 15:53 Oxycodone 5 Mg Tablet PO Q4H PRN PRN Pain Score 4-10 Sodium Chloride 10 - 40 ml 05/29/25 16:17 05/30/25 07:56 0.9% Saline Lock 10 Ml Syringe IV 10 ml UD PRN Administration SALINE FLUSH PFSH Medical History Wears contact lenses Wears glasses Alcohol use Marijuana use Non-smoker Ileostomy present Home Medications ?Medication ?Instructions ?Recorded ?Last Taken ?Type cetirizine 10 mg tablet (24Hour 10 mg PO DAILY 03/30/25 Unknown History Allergy) Allergy/AdvReac Type Severity Reaction Status Date / Time No Known Allergies Allergy Verified 05/29/25 10:06 Surgical History H/O spinal fusion History of appendectomy History of reversal of ileostomy H/O colectomy Social History Smoking Status: Never smoker Review of Systems (Anesthesia) ROS Narrative System reviewed and no additional complaints, except as documented.
--- NOTE | 2025-05-30 11:30 | COLBX_PTH ---
PATIENT: EUNICE GIRON LOC: MS3 U#:[id number] AGE/SX: 39/M ROOM: OR313 RE05/29/[address]: Dr. Lul Morris DO : 1985 BED: 1 DIS: 05/31/2025 SPEC #: [id number] RECD: 05/30/25 13:41 STATUS: SALVATORE REQ #: [id number] JEANNA: 05/30/25 11:[address]: Tom Campbell DEPT: SURGICAL PATHOLOGY RECD BY: Claudio Disla ENTERED: 05/30/25 14:31 SP TYPE: COLON BX OTHR DR: DO Mallory Estrella MD Dr. Prakash Chand, MD Dr. Paige Pierce, MD Heather Evans CARDIOGRAPH OPERATOR-C Zhane Hollis CARDIOGRAPH OPERATORPeteC KIRSTEN Smith Tissues: A - Ileum, NOS Procedures: Immunohistochemical Stains Surgery Specimen Level IV HEADER OPERATION: Flexible sigmoidoscopy, biopsy PRE-OP DIAGNOSIS: Partial small bowel obstruction, abdominal pain TISSUE SUBMITTED: A- Ileum biopsy MICROSCOPIC DIAGNOSIS A. Small intestine, terminal ileum, biopsy: * Acute ileitis with mucosal erosion, granulation tissue and detached fibrinous exudate * The CMV stain is negative MICROSCOPIC DESCRIPTION Slides are reviewed All matched controls reacted appropriately. These tests were developed and their performance characteristics determined by [facility]. They may not have been cleared or approved by the U.S. Food and Drug Administration.The FDA has determined that such clearance or approval is not necessary. The above immunohistochemical markers are viewed by the Pathologist.. GROSS DESCRIPTION A. Received in fixative is one container labeled with the patient's name and designated Ileum biopsy. The specimen consists of multiple irregular fragments of mendieta tissue that in aggregate measure 1.2 x 0.5 x 0.2 cm. The specimen is totally submitted in one cassette. CO 05/30/2025 CPT:53882 ,58750
--- NOTE | 2025-05-30 11:37 | CON.PCM.GI_ITS ---
HPI Consult Data Date of Consult: 05/30/25 HPI Narrative Reason for Consultation: abdominal pain HPI Narrative: EUNICE GIRON, is a 39-year-old male with a history of chronic constipation, status post proctocolectomy with temporary ileostomy, and a history of small bowel obstruction (SBO), presents with worsening abdominal pain. Patient reports the pain is diffuse, but most severe around the area of the anastomosis. He describes the pain as cramping and constant, with episodes of increased intensity. Aggravating factors include eating or increased activity. Alleviating factors are minimal, with some temporary relief noted with rest. He reports decreased appetite and has had some low-grade fevers and chills. He denies vomiting or significant change in ileostomy output but notes the output has been more watery. CT/Abdomen/Pelvis W IV Cont ONLY IMPRESSION: Peritoneal architectural distortion centered in the right abdomen where the transitional point of colonic wall twisting and narrowing. COUNT INCLUDES THE [facility] Medical History Wears contact lenses Wears glasses Alcohol use Marijuana use Non-smoker Ileostomy present Home Medications ?Medication ?Instructions ?Recorded ?Last Taken ?Type cetirizine 10 mg tablet (24Hour 10 mg PO DAILY 5 Unknown History Allergy) Allergy/AdvReac Type Severity Reaction Status Date / Time No Known Allergies Allergy Verified 05/29/25 10:06 Surgical History H/O spinal fusion History of appendectomy History of reversal of ileostomy H/O colectomy Social History Smoking Status: Never smoker ROS Constitutional Constitutional: Denies fatigue, fever(s), poor appetite, weight gain or weight loss Gastrointestinal Gastrointestinal: Denies belching, bloating, change in bowel habits, change in stool character, chewing difficulty, coffee ground emesis, constipation, cramping, diarrhea, dyspepsia, dysphagia, early satiety, excessive flatus, fecal incontinence, heartburn, hematemesis, hematochezia, hemorrhoids, loose stools, melena, nausea, odynophagia, rectal bleeding, tenesmus, vomiting or weight changes Physical Exam Const alert, oriented x3, no apparent distress and healthy appearing General Appearance: cooperative GI normal to inspection, nondistended, normoactive bowel sounds, soft to palpation, non-tender and non-distended Percussion: normal to percussion Rectal Exam: deferred Lab / Micro Data 05/30/25 05:15 05/30/25 05:15 Labs: Laboratory Results - last 24 hr 05/29/25 11:10: Lactic Acid < 1.0 05/29/25 12:50: Urine Color Yellow, Urine Clarity Clear, Urine pH 6.0, Ur Specific Jackson 1.010, Urine Protein 15 H, Urine Glucose (UA) Normal, Urine Ketones 5 H, Urine Occult Blood Negative, Urine Nitrite Negative, Urine Bilirubin Negative, Urine Urobilinogen Normal, Ur Leukocyte Esterase Negative, Urine RBC 0 SEEN, Urine WBC 0 SEEN, Ur Squamous Epith Cells 0 SEEN, Urine Bacteria 0 SEEN, Urine Mucus 0 SEEN 05/30/25 05:15: WBC 10.1, RBC 4.78, Hgb 14.2, Hct 42.5, MCV 88.9, MCH 29.7, MCHC 33.4, RDW Std Deviation 40.6, RDW Coeff of [place] 12.3, Plt Count 321, MPV 9.2, Immature Gran % (Auto) 0.300, Neut % (Auto) 79.3 H, Lymph % (Auto) 7.7 L, Starr % (Auto) 10.7 H, Eos % (Auto) 1.7, Baso % (Auto) 0.3, Absolute Neuts (auto) 8.1 H, Absolute Lymphs (auto) 0.78 L, Nucleated RBC % 0, Sodium 138, Potassium 3.8, Chloride 106, Carbon Dioxide 18.8 L, Anion Gap 13, BUN 9, Creatinine 1.15, Estim Creat Clear Calc 88.44, Est GFR (MDRD) Non-Af 83, BUN/Creatinine Ratio 8.0 L, Glucose 97, Calcium 8.4, Magnesium 2.2, Total Bilirubin 0.65, AST 17, ALT 15, Alkaline Phosphatase 64, Total Protein 7.0, Albumin 3.8, Globulin 3.2, Albumin/Globulin Ratio 1.2 Micro: Microbiology 05/29/25 12:49 Stool Enteric Bacteriology - Final 05/29/25 12:49 Stool Clostridioides difficile (PCR) - Final Imaging Radiology Impression Abdomen/Pelvis CT 05/29/25 11:01 IMPRESSION: Peritoneal architectural distortion centered in the right abdomen where the transitional point of colonic wall twisting and narrowing. These findings can be consistent with partial small bowel obstruction in the proper clinical setting. Reading Location: [facility] Assessment & Plan Assessment/Plan (1) Partial small bowel obstruction: (2) Abdominal pain: PLAN: 39-year-old male with a history of chronic constipation, status post proctocolectomy with temporary ileostomy, and previous small bowel obstruction, presenting with worsening abdominal pain and imaging evidence of inflammation around the anastomosis. The differential diagnosis includes: * Anastomotic Leak:?This is a serious complication where the surgical connection fails, leading to leakage of bowel contents and potential peritonitis or sepsis. It is a strong possibility given the history of abdominal pain, fever, and localized inflammation. * Pouchitis (or Anastomositis):?Inflammation of the ileal pouch or the anastomosis site, which can occur even without a pouch. It is a common complication after proctocolectomy, especially in patients with a history of inflammatory bowel disease. * Small Bowel Obstruction (SBO):?The patient has a history of SBO and adhesions can form after surgery. Inflammation from the anastomotic site can lead to or worsen a partial or complete obstruction. * Infection/Abscess:?A contained abscess or pelvic sepsis near the anastomosis could be the source of inflammation and pain. Plan: * Diagnostic: * Continue monitoring vital signs, especially for signs of sepsis (fever, tachycardia, hypotension). * Repeat lab work (CBC, BMP, CRP) to trend inflammatory markers and electrolyte status. * Therapeutic: * Admit to the hospital for observation and management. * Start patient on broad-spectrum intravenous (IV) antibiotics to cover potential intra-abdominal infection. * Make patient NPO (nil per os, nothing by mouth) and place nasogastric (NG) tube if signs of obstruction are present. * Provide IV fluids to correct dehydration and electrolyte imbalances. * Will perform a flexible sigmoidoscopy to evaluate his lower GI tract. Charges/Coding Visit Charges Inpatient E&M: 38939 Init Hosp L3
--- NOTE | 2025-05-30 11:43 | CASEMGMT ---
Dx:abd pain, liquid stool LACE:1 6-Clicks:24 Medical record reviewed and patient evaluated for identification of discharge planning needs. Based on this review, at this time criteria are not present to indicate a need for discharge planning. Will remain available to assist with discharge planning needs as identified or requested.
--- NOTE | 2025-05-30 12:20 | OP.PROVAT_ITS ---
05/30/2025 Mallory Mckeon Md Re : Flexible Sigmoidoscopy procedure for Brad Vargas Dear Mike This procedure was performed on Friday, May 30, 2025. My impressions and recommendations are as follows: Impressions : - No specimens collected. Recommendations : My findings are described in the full procedure note, which is enclosed. If I can be of further assistance, please feel free to contact me at . Sincerely, Tom Campbell, 05/30/2025 12:20:32 PM This report has been signed electronically.
--- NOTE | 2025-05-30 12:20 | OP.FLEXSIG_ITS ---
Patient Name: Brad Vargas Procedure Date: 05/30/2025 11:45 AM Date of : 1985 Age: 39 Procedure: Flexible Sigmoidoscopy Indications: Abdominal pain in the left lower quadrant, Hematochezia, Clinically significant diarrhea of unexplained origin Providers: Tom Campbell DO Medicines: Monitored Anesthesia Care Patient Profile: This is a 39 year old male. Refer to note in patient chart for documentation of history and physical. Last Colonoscopy: several years ago. Complications: No immediate complications. Procedure: Pre-Anesthesia Assessment: - Prior to the procedure, a History and Physical was performed, and patient medications and allergies were reviewed. The patient is competent. The risks and benefits of the procedure and the sedation options and risks were discussed with the patient. All questions were answered and informed consent was obtained. Patient identification and proposed procedure were verified by the physician in the pre-procedure area. Mental Status Examination: alert and oriented. Airway Examination: normal oropharyngeal airway and neck mobility. Respiratory Examination: clear to auscultation. CV Examination: normal. Prophylactic Antibiotics: The patient does not require prophylactic antibiotics. Prior Anticoagulants: The patient has taken no anticoagulant or antiplatelet agents except for NSAID medication. ASA Grade Assessment: II - A patient with mild systemic disease. After reviewing the risks and benefits, the patient was deemed in satisfactory condition to undergo the procedure. The anesthesia plan was to use monitored anesthesia care (MAC). Immediately prior to administration of medications, the patient was re-assessed for adequacy to receive sedatives. The heart rate, respiratory rate, oxygen saturations, blood pressure, adequacy of pulmonary ventilation, and response to care were monitored throughout the procedure. The physical status of the patient was re-assessed after the procedure. After obtaining informed consent, the endoscope was passed under direct vision. Throughout the procedure, the patient's blood pressure, pulse, and oxygen saturations were monitored continuously. The Colonoscope was introduced through the anus and advanced to the ileo-rectal anastomosis. The flexible sigmoidoscopy was accomplished without difficulty. The patient tolerated the procedure well. The quality of the bowel preparation was adequate. Scope In: 12:02:26 PM Scope Out: 12:13:17 PM Total Procedure Duration Time 0 hours 10 minutes 51 seconds Findings: The perianal and digital rectal examinations were normal. Inflammation characterized by granularity, scarring and confluent ulcerations was found in a continuous and circumferential pattern from the anus to the rectum and as large patches surrounded by normal mucosa in the terminal ileum. The inflammation was severe, and when compared to previous examinations, the findings are new. Biopsies were taken with a cold forceps for histology. Verification of patient identification for the specimen was done. Estimated blood loss was minimal. Impression: - No specimens collected. Procedure Code(s): --- Professional --- 54368, Sigmoidoscopy, flexible; with biopsy, single or multiple CPT copyright 2021 [employer]. All rights reserved. The codes documented in this report are preliminary and upon education paraprofessional review may be revised to meet current compliance requirements. Tom Campbell DO 05/30/2025 12:20:32 PM This report has been signed electronically. Number of Addenda: 0 Note Initiated On: 05/30/2025 11:45 AM
--- NOTE | 2025-05-30 12:30 | PN.HOSP_ITS ---
Reason for Visit Chief Complaint: abd pain Subjective Subjective Saw patient at bedside this afternoon as he was found having his flexible sigmoidoscopy this morning. Patient was sitting back comfortably in bed, conversing normally, in no acute distress. He denied any abdominal pain or discomfort currently. Has been tolerating a full liquid diet since coming back up without issue. No other acute concerns at this time. Objective Data Objective Data Vital Signs: Vital Signs Temp Pulse Resp BP Pulse Ox O2 Del Method 98.4 F 93 16 110/80 97 Room Air 05/30/25 12:25 05/30/25 12:25 05/30/25 12:25 05/30/25 12:25 05/30/25 12:25 05/30/25 12:25 Oxygen Delivery Method Room Air Weight: 83 kg Body Mass Index (BMI) 28.6 Intake & Output: Intake and Output for Last 24 Hours 05/28/25 05/29/25 05/30/25 23:59 23:59 23:59 Intake Total 1131.25 / 1131.25 2126 Balance 1131. / 1131.2126 Lab / Micro Data 05/30/25 05:15 05/30/25 05:15 Labs: Laboratory Results - last 24 hr 05/29/25 12:50: Urine Color Yellow, Urine Clarity Clear, Urine pH 6.0, Ur Specific [place] 1.010, Urine Protein 15 H, Urine Glucose (UA) Normal, Urine Ketones 5 H, Urine Occult Blood Negative, Urine Nitrite Negative, Urine Bilirubin Negative, Urine Urobilinogen Normal, Ur Leukocyte Esterase Negative, Urine RBC 0 SEEN, Urine WBC 0 SEEN, Ur Squamous Epith Cells 0 SEEN, Urine Bacteria 0 SEEN, Urine Mucus 0 SEEN 05/30/25 05:15: WBC 10.1, RBC 4.78, Hgb 14.2, Hct 42.5, MCV 88.9, MCH 29.7, MCHC 33.4, RDW Std Deviation 40.6, RDW Coeff of [place] 12.3, Plt Count 321, MPV 9.2, Immature Gran % (Auto) 0.300, Neut % (Auto) 79.3 H, Lymph % (Auto) 7.7 L, Smith % (Auto) 10.7 H, Eos % (Auto) 1.7, Baso % (Auto) 0.3, Absolute Neuts (auto) 8.1 H, Absolute Lymphs (auto) 0.78 L, Nucleated RBC % 0, Sodium 138, Potassium 3.8, Chloride 106, Carbon Dioxide 18.8 L, Anion Gap 13, BUN 9, Creatinine 1.15, Estim Creat Clear Calc 88.44, Est GFR (MDRD) Non-Af 83, BUN/Creatinine Ratio 8.0 L, Glucose 97, Calcium 8.4, Magnesium 2.2, Total Bilirubin 0.65, AST 17, ALT 15, Alkaline Phosphatase 64, Total Protein 7.0, Albumin 3.8, Globulin 3.2, Albumin/Globulin Ratio 1.2 Micro: Microbiology 05/29/25 12:49 Stool Enteric Bacteriology - Final 05/29/25 12:49 Stool Clostridioides difficile (PCR) - Final Radiography Diagnostic Testing: Radiology Impression Abdomen/Pelvis CT 05/29/25 11:01 IMPRESSION: Peritoneal architectural distortion centered in the right abdomen where the transitional point of colonic wall twisting and narrowing. These findings can be consistent with partial small bowel obstruction in the proper clinical setting. Reading Location: [facility] Physical Exam Const alert, oriented x3, no apparent distress, average body habitus, healthy appearing and well nourished Constitutional Narrative: Pleasant younger male, sitting back comfortably in bed, conversing normally, in no acute distress. General Appearance: cooperative, comfortable, well kempt and well developed HEENT normocephalic, head/scalp atraumatic, hearing grossly normal bilaterally, nasal mucous membranes and turbinates normal and moist oral mucous membranes Eyes PERRL, EOMs intact bilaterally and conjunctivae normal Neck full ROM Chest inspection of chest normal Resp normal respiratory effort, normal air movement, no use of accessory muscles and clear to auscultation bilaterally Cardio regular rate, regular rhythm, no murmurs and peripheral pulses 2+ throughout GI normal to inspection, nondistended, normoactive bowel sounds, soft to palpation, non-tender and non-distended Back/Spine normal ROM Extremity normal to inspection, full ROM and no pedal edema Skin no rashes or lesions noted Psych mental status grossly normal Assessment & Plan Assessment/Plan (1) Crohn's disease: PLAN: Plan Patient is a 39-year-old male who presented to [facility] ED on 05/29/2025 with abdominal pain. 1. Crohn's disease ? GI following. Presented with worsening abdominal pain. CT abdomen pelvis showed a transition point of colonic wall twisting and narrowing in the right abdomen concerning for partial small bowel obstruction. Sigmoidoscopy on 05/30 showed severe inflammation with ulcerations found in a continuous and circumferential pattern from the anus to the rectum as well as large patches surrounded by normal mucosa in the terminal ileum. These are noted to be new findings in comparison to previous exams and are consistent with new onset Crohn's disease. Per Dr. Campbell, will treat with IV Solu-Medrol for now and monitor patient response. Okay for full liquid diet for now, will advance per GI recommendations. 2. 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 Follows with GI in the outpatient setting. History of full colectomy with ileorectal anastomosis done for colonic inertia at an outside hospital. Further GI recommendations as above. DVT prophylaxis: SCDs CODE STATUS: Full code, verified Expected disposition: Home, 1 to 2 days Total clinical time spent by myself addressing the patient's medical issues, reviewing all the data, and collaborating with patient's care team: 36 minutes. Charges/Coding Visit Charges Inpatient E&M: 07151 Subs Hosp L2
--- NOTE | 2025-05-30 12:39 | PCM.POST.ANE ---
Anesthesia: Postop Eval I Current Vital Signs Temperature: 98.4 F Pulse Rate: 88 Blood Pressure: 110/80 Respiratory Rate: 16 Pulse Ox: 96 Oxygen Delivery Method: Room Air Assessment Airway patent: Yes Spontaneous unlabored respirations: Yes Mental status: Awake and Calm nausea: No Vomiting: No Anesthesia Complication: No Fluid Hydration Crystalloid volume administer (ml): 500 Total IV fluid infused: 500 Progress Note Anesthesia document: Postop Eval 1 completed: Yes
--- NOTE | 2025-05-30 12:42 | PCM.POSTANE2 ---
Anesthesia Postop Eval I Sum Postop Eval Completion status Anesthesia document: Postop Eval 1 completed: Yes Anesthesia Postop Eval I Summary Anesthesia Postop Eval I Summary: Anesthesia Postop Eval I: Assessment Summary Airway patent Yes 05/30/25 12:39 [email or web address] Spontaneous unlabored Yes 05/30/25 12:39 [email or web address] respirations Mental status Awake,Calm 05/30/25 12:39 [email or web address] nausea No 05/30/25 12:39 [email or web address] Vomiting No 05/30/25 12:39 [email or web address] Anesthesia Postop Eval I: Fluid Summary Crystalloid volume administer 500 05/30/25 12:39 [email or web address] (ml) Colloids volume administered ( ml) Blood Product volume administered (ml) Total IV fluid infused 500 05/30/25 12:39 [email or web address] Anesthesia Postop Eval I: Summary Notes Anesthesia Complication No 05/30/25 12:39 [email or web address] Anesthesia Complication Comment: Post-operative progress note Anesthesia: Postop Eval II Evaluation Mental status: Awake Pain Level: 0 nausea: No Vomiting: No
[2025-05-30 17:57] LABS: CRP 138.00 mg/L (0.0-3.0)
[2025-05-30] MEDS: MELATONIN 10 MG TABLET PO (22:50)
[2025-05-31 04:26] VITALS: BP 125/79; PULSE 75; RESP 18; TEMP 36.5; O2SAT 96
[2025-05-31] MEDS: Piperacil/Tazobactam 3.375 GM in 0.9% Normal Saline (50mL MB+) 50 ML IV (06:10)
[2025-05-31 07:15] LABS: Anion Gap 14 (5-15); BUN 9 mg/dL (4-19); BUN/Creat Ratio 11.7 RATIO (10-20); Calcium,Total 8.8 mg/dL (7.6-11.0); Carbon Dioxide 17.3 mmol/L (21.0-32.0); Chloride 108 mmol/L (98-108); Estimated Creatinine Clearance 129.38 ml/min (50-250); Glucose 156 mg/dL (70-99); Potassium 4.0 mmol/L (3.3-5.1)
[2025-05-31 07:43] VITALS: BP 127/85; PULSE 66; RESP 15; TEMP 36.6; O2SAT 97
--- NOTE | 2025-05-31 11:08 | DS.PCM_ITS ---
Providers Date of Admission: 05/29/25 Date of Discharge: 05/31/25 Primary Care Physician: Mallory Mckeon MD Consultations 05/29/25 15:53 Consult: Gastroenterology Routine Consulting Provider: [facility] Reason for Consult: liquid stool, abd pain EMERGENT Consult: No MD Notified: Yes Date Notified: 05/29/25 Time Notified: 15:13 Method of Notification: ED Physician Initiated Reason For Visit: ABDOMINAL PAIN, LIQUID STOOL Diagnosis Discharge Diagnosis (1) Crohn's disease: Status: Acute Code(s): K50.90 - Crohn's disease, unspecified, without complications Medications at Discharge Home Medications cetirizine 10 mg tablet (24Hour Allergy) 10 mg PO DAILY 03/30/25 amoxicillin 875 mg-potassium clavulanate 125 mg tablet 1 tab PO BID 12 days #24 tabs 05/31/25 prednisone 20 mg tablet 40 mg (2 x 20 mg) PO DAILY 30 days #60 tabs 05/31/25 Hospital Course Operations None Procedures Colonoscopy, EKG and - (CT abdomen pelvis) Summary of Care Provided Minutes Spent on Discharge: 37 Hospital Course: Patient is a 39-year-old male who presented to [facility] ED on 05/29/2025 with abdominal pain. Hospital course as noted below. Patient discharged home in stable condition on 05/31. 1. Crohn's disease ? GI followed. Presented with worsening abdominal pain. CT abdomen pelvis showed a transition point of colonic wall twisting and narrowing in the right abdomen concerning for partial small bowel obstruction. Sigmoidoscopy on 05/30 showed severe inflammation with ulcerations found in a continuous and circumferential pattern from the anus to the rectum as well as large patches surrounded by normal mucosa in the terminal ileum. These are noted to be new findings in comparison to previous exams and are consistent with new onset Crohn's disease. Treated with IV Solu-Medrol while inpatient and patient advanced to regular diet and tolerated without issue. Per Dr. Campbell, will discharge on prednisone 40 mg daily for 1 month and Augmentin to complete 14-day course of antibiotics total. Will need close outpatient follow-up with GI. 2. 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 Follows with GI in the outpatient setting. History of full colectomy with ileorectal anastomosis done for colonic inertia at an outside hospital. Further GI recommendations as above. Total clinical time spent by myself addressing the patient's medical issues, reviewing all the data, and collaborating with patient's care team: 37 minutes. Physical Exam Const alert, oriented x3, no apparent distress, average body habitus, healthy appearing and well nourished Constitutional Narrative: Pleasant younger male, sitting back comfortably in bed, conversing normally, in no acute distress. General Appearance: cooperative, comfortable, well kempt and well developed HEENT normocephalic, head/scalp atraumatic, hearing grossly normal bilaterally, nasal mucous membranes and turbinates normal and moist oral mucous membranes Eyes PERRL, EOMs intact bilaterally and conjunctivae normal Neck full ROM Chest inspection of chest normal Resp normal respiratory effort, normal air movement, no use of accessory muscles and clear to auscultation bilaterally Cardio regular rate, regular rhythm, no murmurs and peripheral pulses 2+ throughout GI normal to inspection, nondistended, normoactive bowel sounds, soft to palpation, non-tender and non-distended Back/Spine normal ROM Extremity normal to inspection, full ROM and no pedal edema Skin no rashes or lesions noted Psych mental status grossly normal Weight / BMI Weight Weight: 83 kg Body Mass Index (BMI) 28.6 ABG / Lab / Microbiology Data 05/30/25 05:15 05/31/25 05:48 Laboratory: Laboratory Results - last 24 hr 05/30/25 16:09: ESR 51 H, C-React Prot Ext Range 138.00 H 05/31/25 05:48: Sodium 139, Potassium 4.0, Chloride 108, Carbon Dioxide 17.3 L, Anion Gap 14, BUN 9, Creatinine 0.79, Estim Creat Clear Calc 129.38, Est GFR (MDRD) Non-Af 116, BUN/Creatinine Ratio 11.7, Glucose 156 H, Calcium 8.8 Microbiology: Microbiology 05/29/25 12:49 Stool Enteric Bacteriology - Final 05/29/25 12:49 Stool Clostridioides difficile (PCR) - Final D/C Instructions DC O2, CPAP, BIPAP Needs Home O2 Discharge instructions: No Meaningful Use Info Meaningful Use Meaningful Use Diagnoses (Choose all that apply): None applicable Discharge Plan Admission Admit Date/Time: 05/29/25 15:08 Primary Reason for Your Visit: Abdominal pain Attending Provider: Lul Morris Primary Care Provider: Mallory Mckeon Consulting Providers: Akshat Wiseman; Tom Campbell; Yaniqeu Anguiano; Zhane Hollis; Tiara Mcgregor; Margareth Hurt Instructions Additional Instructions / Restrictions: Per Dr. Campbell, please take prednisone 40 mg daily for 1 month and take Augmentin twice daily for 12 more days to complete a 14-day course of antibiotics total. Dr. Campbell's office will call you to schedule a follow-up appointment in the next 1 to 2 weeks. Discharge Orders/Prescriptions Prescriptions: New prednisone 20 mg tablet 40 mg PO DAILY 30 Days Qty: 60 0RF amoxicillin-pot clavulanate 875-125 mg tablet 1 tab PO BID 12 Days Qty: 24 0RF Continued cetirizine [24Hour Allergy] 10 mg tablet 10 mg PO DAILY Referrals / Follow Up: Mallory Mckeon MD [Primary Care Provider, Family Practice] Tom Campbell DO [Med Staff - Active Staff, Gastroenterology] Disposition Disposition (needs filled in before D/C Order can be placed): Home, Self Care Charges/Coding Visit Charges Inpatient E&M: 34093 Disch Hosp >30min
--- NOTE | 2025-05-31 11:08 | DCINST_ITS ---
Discharge Instructions DC O2, CPAP, BIPAP needs Home O2 Discharge instructions: No Dressing / Incision Discharge Activity: No Restrictions Follow Up Care Test Results: Test results from this visit will be discussed in further detail at your follow- up appointment, if applicable. Discharge Plan Admission Admit Date/Time: 05/29/25 15:08 Primary Reason for Your Visit: Abdominal pain Attending Provider: Lul Morris Primary Care Provider: Mallory Mckeon Consulting Providers: Akshat Wiseman; Tom Campbell; Yanique Anguiano; Zhane Hollis; Tiara Mcgregor; Margareth Hurt Instructions Additional Instructions / Restrictions: Per Dr. Campbell, please take prednisone 40 mg daily for 1 month and take Augmentin twice daily for 12 more days to complete a 14-day course of antibiotics total. Dr. Campbell's office will call you to schedule a follow-up appointment in the next 1 to 2 weeks. Discharge Orders/Prescriptions Prescriptions: New prednisone 20 mg tablet 40 mg PO DAILY 30 Days Qty: 60 0RF amoxicillin-pot clavulanate 875-125 mg tablet 1 tab PO BID 12 Days Qty: 24 0RF Continued cetirizine [24Hour Allergy] 10 mg tablet 10 mg PO DAILY Referrals / Follow Up: Mallory Mckeon MD [Primary Care Provider, Family Practice] Tom Campbell DO [Med Staff - Active Staff, Gastroenterology] Disposition Disposition (needs filled in before D/C Order can be placed): Home, Self Care
--- NOTE | 2025-05-31 14:04 | PHA.DC.MC.R ---
Pharmacy [facility] Counseling Pharmacy Service has performed discharge medication reconciliation and counseling for this patient. 1. AUGMENTIN 875MG PO BID X 12 DAYS 2. PREDNISONE 40MG PO DAILYCM X 30 DAYS The patient's discharge medication list was reviewed for discrepancies and discrepancies were resolved. The patient was counseled on the following discharge medications and changes in medications for homegoing were reviewed. The Reason for Use, instructions for use, and potential side effects were reviewed for all new medications. The patient's questions regarding all of their medications were answered. The patient was able to verbally demonstrate an understanding of their discharge medications. Medications at Discharge Home Medications cetirizine 10 mg tablet (24Hour Allergy) 10 mg PO DAILY 03/30/25 amoxicillin 875 mg-potassium clavulanate 125 mg tablet 1 tab PO BID 12 days #24 tabs 05/31/25 prednisone 20 mg tablet 40 mg (2 x 20 mg) PO DAILY 30 days #60 tabs 05/31/25
[2025-05-31 14:06] VITALS: BP 135/88; PULSE 85; RESP 16; TEMP 36.6; O2SAT 94
[2025-05-31] MEDS: 0.9% Saline Lock 10 ML Syringe IV (14:08)
--- NOTE | 2025-05-31 19:20 | PN_ITS ---
Progress Note Patient underwent flexible sigmoidoscopy yesterday and was discovered to have Crohn's disease of the anus, ileorectal anastomosis and ileum. He received steroids and is doing a lot better along with receiving antibiotics. Patient is interested in going home today. Physical Exam Const alert, oriented x3, no apparent distress, average body habitus, healthy appearing and well nourished Constitutional Narrative: Pleasant younger male, sitting back comfortably in bed, conversing normally, in no acute distress. General Appearance: cooperative, comfortable, well kempt and well developed HEENT normocephalic, head/scalp atraumatic, hearing grossly normal bilaterally, nasal mucous membranes and turbinates normal and moist oral mucous membranes Eyes PERRL, EOMs intact bilaterally and conjunctivae normal Neck full ROM Chest inspection of chest normal Resp normal respiratory effort, normal air movement, no use of accessory muscles and clear to auscultation bilaterally Cardio regular rate, regular rhythm, no murmurs and peripheral pulses 2+ throughout GI normal to inspection, nondistended, normoactive bowel sounds, soft to palpation, non-tender and non-distended Back/Spine normal ROM Extremity normal to inspection, full ROM and no pedal edema Skin no rashes or lesions noted Psych mental status grossly normal Assessment & Plan Assessment/Plan (1) Crohn's disease: (2) Partial small bowel obstruction: (3) Abdominal pain: PLAN: 39-year-old with history of chronic abdominal pain and chronic constipation status post subtotal colectomy with ileocolonic anastomosis comes in with partial small bowel obstruction and discovered to have Crohn's disease of the anus and ileocolonic anastomosis along with the ileum. She was started on IV steroids and IV antibiotics. He wants to be discharged to home on oral steroids and oral antibiotics. He is okay with initiating treatment for Crohn's disease as an outpatient. Assessment * Partial Small Bowel Obstruction (SBO):?Resolved due to medical management. * Crohn's Disease (new diagnosis):?This is the underlying etiology for the current SBO, involving the ileum, ileocolonic anastomosis, and anus. The patient has responded well to initial IV steroid and antibiotic therapy for disease flares and infectious complications. * Chronic Abdominal Pain/Constipation:?Existing history exacerbated by new disease activity. * Status post subtotal colectomy with ileocolonic anastomosis:?Pertinent surgical history that provides context for the current presentation. * Stability for Discharge:?The patient is clinically stable for discharge home with a transition from IV to oral medications. P: Plan * Transition Medications:?Transition from IV steroids to oral prednisone (or other oral steroid). Initiate oral antibiotics to complete the course started in the hospital. * Crohn's Disease Treatment:?Initiate long-term management for Crohn's disease as an outpatient. This will likely involve a conversation about different immunomodulatory or biologic agents. * Diet:?Continue with a regular diet as tolerated. Follow up with [facility] for detailed dietary recommendations tailored for Crohn's disease management. * Pain Management:?Prescribe oral pain medication for at-home use as needed. Advise patient to monitor for any worsening abdominal pain. Visit Charges Inpatient E&M: 11274 [facility] Hosp L3
[2025-06-02 18:08] LABS: HEPATITIS B SURFACE AG Negative (Negative); Hep C Antibodies Non Reactive (Non Reactive); QNTFERON TB Mitogen Value 0.53 IU/mL (.); QNTFERON TB Nil Value 0.05 IU/mL (.); QNTFERON TB1+ Ag Value 0.06 IU/mL (.); QNTFERON TB2+ Ag Value 0.05 IU/mL (.); QNTIFERON TB Positive Criteria Indeterminate (Negative)
[2025-06-10 12:08] LABS: ACCA 24 units (0-90); ALCA 8 units (0-60); AMCA 17 units (0-100)
== END 2025-05-31 14:22 | disposition home or self-care (01) | DRG 386 ==
LOC: ED 13:46 → MS3 15:11
PROVIDERS: Internal Medicine Gastroenterology; Admitting Provider Internal Medicine; Emergency Provider Emergency Medicine; PCP Family Medicine; Visit Provider Hospitalist
PROC: 0DJD8ZZ Inspection of Lower Intestinal Tract, Via Natural or Artificial Opening Endoscopic (ICD-10-PCS; CPT 45330; principal; 2025-05-30 11:25)
DX: K50.118 Crohn's disease of large intestine with other complication (principal); K62.6 Ulcer of anus and rectum; Z93.2 Ileostomy status; J30.2 Other seasonal allergic rhinitis; K59.09 Other constipation; Z23 Encounter for immunization; Z90.49 Acquired absence of other specified parts of digestive tract; Z90.89 Acquired absence of other organs
CPT/HCPCS: 36415; 74177; 80048; 80053; 80074; 81001; 83516; 83605; 83690; 83735; 85025; 85652; 86036; 86140; 86480; 86671; 87493; 87506; 88305; 88342; 93005; 99284; Q9967; A4216; J2405

== ENCOUNTER → 2025-06-03 | Outpatient (CLI) | payer OTHER, SELFPAY ==
[2025-06-03 16:57] LABS: Hematocrit 42.7 % (40-54); Hemoglobin 14.4 g/dL (13.0-16.5); Immature Granulocytes Count 0.180 X10^3/uL (0.0-0.0); Mean Corp Hgb Conc 33.7 g/dL (32-36); Mean Corpuscular Volume 86.4 fL (80-94); Mean Platelet Vol. 10.0 fl (6.2-12.0); NRBC Flagged by Analyzer 0 % (0-5); Platelet Count 417 K/mm3 (150-450); RBC Distribution Width CV 12.1 % (11.6-14.6); RBC Distribution Width SD 38.5 fl (35.1-43.9); Red Blood Count 4.94 M/mm3 (4.6-6.2); White Blood Count 8.9 K/mm3 (4.4-11.0)
[2025-06-03 17:24] LABS: AST(SGOT) 27 U/L (<=37); Alanine Aminotransfer ALT/SGPT 30 U/L (<=46); Albumin, Serum 4.2 g/dL (3.5-5.0); Alkaline Phosphatase 63 U/L (40-129); Anion Gap 13 (5-15); BUN 15 mg/dL (4-19); BUN/Creat Ratio 17.8 RATIO (10-20); CRP 12.30 mg/L (0.0-3.0); Calcium,Total 9.3 mg/dL (7.6-11.0); Carbon Dioxide 19.7 mmol/L (21.0-32.0); Chloride 107 mmol/L (98-108); Globulin 3.4 g/dL (2.2-4.2); Glucose 113 mg/dL (70-99); Magnesium 2.5 mg/dL (1.5-2.2); Potassium 4.8 mmol/L (3.3-5.1)
[2025-06-06 12:09] LABS: Immunoglobulin A 249 mg/dL (90-386)
== END | disposition home or self-care (01) ==
LOC: LAB 16:02
PROVIDERS: Nurse Practitioner Acute Care; PCP Family Medicine; Referring Provider Student in an Organized Health Care Education/Training Program; Visit Provider Student in an Organized Health Care Education/Training Program
DX: R10.12 Left upper quadrant pain (principal); R19.7 Diarrhea, unspecified; R10.31 Right lower quadrant pain; Z91.018 Allergy to other foods
CPT/HCPCS: 36415; 80053; 82784; 83516; 83735; 85025; 86140

== ENCOUNTER → 2025-06-07 | Outpatient (CLI) | payer OTHER, SELFPAY ==
--- NOTE | 2025-06-07 10:50 | RAD_ITS ---
PROCEDURE: RAD/Chest PA and Lateral
== END | disposition home or self-care (01) ==
LOC: RAD 10:45
PROVIDERS: PCP Family Medicine; Referring Provider Student in an Organized Health Care Education/Training Program; Visit Provider Student in an Organized Health Care Education/Training Program
DX: K50.90 Crohn's disease, unspecified, without complications (principal)
CPT/HCPCS: 71046

== ENCOUNTER → 2025-06-22 | Outpatient (CLI) | payer OTHER, SELFPAY ==
--- NOTE | 2025-06-22 10:18 | MRI_ITS ---
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 TECHNIQUE: Procedure Code: MRIMRIENTER Modality: MR Procedure: ENTEROGRAPHY ABD/PEL Multiplanar and multisequence images were obtained without intravenous gadolinium contrast. COMPARISON: CT abdomen and pelvis with IV contrast, 05/29/2025. FINDINGS: Liver: The liver is predominantly in the left upper quadrant and extends past the midline into the right upper quadrant. The liver is normal in size. Gallbladder: The gallbladder is unremarkable. There is no intra or extrahepatic biliary ductal dilatation. Spleen: There does appear to be a normal sized spleen without evidence of polysplenia. Pancreas: There is a 2 mm cyst in the body of the pancreas, left anterolateral to the main pancreatic duct, possibly a branch chain IPMN. Adrenals: Normal. Kidneys: There is an 8 mm in diameter simple cortical cyst in the upper pole of the right kidney, Bosniak 1. The left kidney is unremarkable. Bladder: Evacuated. Reproductive Organs: The prostate gland and seminal vesicles are unremarkable. There is no free fluid in the pelvis. There is no inguinal lymphadenopathy. Bowel: Per history, the patient is status post subtotal colectomy. The distal small bowel, proximal to the enterocolic anastomosis, demonstrates an appearance consistent with ijeoma colonic metaplasia and villous atrophy. The more proximal small bowel demonstrates a normal villous pattern. There is no evidence of bowel obstruction or partial volvulus. Appendix: Surgically absent. Lymph nodes: There is no significant mesenteric or retroperitoneal lymphadenopathy. Vasculature: The aorta and portal venous system are normal. 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 Peritoneum / Retroperitoneum: There are no abnormal intra or retroperitoneal masses or fluid collections. Bones: Status post PLIF, L4-5. MRI/Enterography Abd/Pel IMPRESSION: 1. Status post subtotal colectomy. The appearance of the distal small bowel i s consistent with colonic metaplasia, as described. The more proximal small bowel demonstrates a normal villous pattern . 2. There is no evidence of bowel obstruction or partial volvulus. 3. There is a Bosniak 1 cortical cyst in the upper pole of the right kidney re quiring no further workup. 4. There is a cyst in the body of the pancreas, possibly a branch chain IPMN. 5. Other findings as noted. Incidental Finding Alert: Possible side chain IPMN in the body of the pancreas. Recommend follow-up with MR abdomen with and without contrast in 1 year. Reading Location: [place] [id number]
[2025-06-22 10:40] VITALS: BP 118/83; PULSE 96; RESP 14; O2SAT 94
[2025-06-22] MEDS: Glucagon 1 MG/ML Syringe IV (11:48)
[2025-06-22 12:04] VITALS: BP 123/83; PULSE 83; RESP 14; O2SAT 95
== END | disposition home or self-care (01) ==
LOC: MRI 10:12
PROVIDERS: PCP Family Medicine; Referring Provider Student in an Organized Health Care Education/Training Program; Visit Provider Student in an Organized Health Care Education/Training Program
DX: K50.90 Crohn's disease, unspecified, without complications (principal); K92.1 Melena
CPT/HCPCS: 74183; A9575; J1610